=== PATIENT | female | born 1940 | race Caucasian/White ===

== ENCOUNTER → 2017-09-16 11:48 | Outpatient (CLI) | payer MEDICARE, SELFPAY ==
[2017-09-16 13:55] LABS: Hemoglobin A1c 8.6 % (4.2-6.3)
== END ==
PROVIDERS: Family Provider Family Medicine; PCP Family Medicine; Visit Provider Family Medicine
DX: E11.9 Type 2 diabetes mellitus without complications (principal)
CPT/HCPCS: 36415; 83036

== ENCOUNTER → 2017-10-25 11:01 | Outpatient (CLI) | payer MEDICARE, SELFPAY ==
--- NOTE | 2017-10-25 11:04 | CT_ITS ---
STUDY: CT CHEST WITHOUT CONTRAST REASON FOR EXAM: Female, 76 years old. COPD and wheezing. RADIATION DOSAGE (If Supplied By Facility): CTDIvol = ( 8.92 ) mGy, DLP = ( 296.50 ) mGycm TECHNIQUE: Transaxial imaging was performed without the administration of intravenous contrast material. Individualized dose optimization techniques were used for this CT. COMPARISON: None. FINDINGS: The lungs are somewhat hyperinflated. There is mild stranding in the right upper lobe and right middle lobe probably due to scarring. Minimal stranding is seen in the lingula and left lower lobe. No focal infiltrate is seen. There is minimal central bronchiectatic changes. There is no evidence of pleural effusions. Normal heart and pericardium. There are coronary calcifications. There are few small normal sized mediastinal nodes. There is no evidence of adenopathy. Normal hilar regions. Normal unenhanced pulmonary arteries. There is atherosclerotic calcification of the aortic arch with tortuosity and elongation of the aortic arch and descending thoracic aorta. There are degenerative changes in the thoracic spine. There is calcification within the thecal sac on the left side of the spinal cord about the level of T9 measuring about 7 mm. There is no demonstrated abnormality of the visualized upper abdomen. CT/Chest without Contrast IMPRESSION: Mild COPD and bronchiectatic changes. Mild stranding bilaterally probably due to scarring. No infiltrate is seen. Demineralization of the osseous structures. Calcification within the thecal sac about the level of T9. Further evaluation with MRI of the thoracic spine is recommended. Electronically Signed: Rosalio Ramos MD at 15:55 EDT Tel , Service support ,
== END ==
PROVIDERS: Family Provider Family Medicine; PCP Family Medicine; Visit Provider Internal Medicine Critical Care Medicine
DX: J44.9 Chronic obstructive pulmonary disease, unspecified (principal)
CPT/HCPCS: 71250; 87070; 87077; 87186; 87205

== ENCOUNTER → 2018-01-15 10:20 | Outpatient (CLI) | payer MEDICARE, SELFPAY ==
--- NOTE | 2018-01-15 13:32 | PFT ---
INTRODUCTION: The patient is a 77-year-old female currently under the care of Dr. Corey that presents for pulmonary function testing secondary to a diagnosis of COPD. Respiratory therapy reports good patient effort. Bronchodilators were used during testing. INTERPRETATION: Forced expiration spirometry demonstrates the presence of a moderate large airways obstructive ventilatory defect. There was no significant response to aerosolized bronchodilators. Spirograms are of good quality and do not plateau indicating slow emptying of the lungs. The respiratory flow volume loop reveals decreased expiratory flow rates at all lung volumes consistent with airways obstruction. Body plethysmography was performed and reveals an elevated TLC and RV, indicative of underlying hyperinflation and air-trapping. Diffusing capacity by single breath CO is moderately reduced at 51% of predicted. When compared to previous pulmonary function studies dated April 2017 there is been increases in both TLC and RV along with a 15% improvement in DLCO. IMPRESSION: These pulmonary function studies demonstrate the presence of an irreversible moderate large airways obstructive ventilatory defect with associated hyperinflation, air trapping and reduction in diffusing capacity.
== END ==
PROVIDERS: Family Provider Family Medicine; PCP Family Medicine; Visit Provider Internal Medicine Critical Care Medicine
DX: J44.9 Chronic obstructive pulmonary disease, unspecified (principal)
CPT/HCPCS: 94060; 94726; 94729

== ENCOUNTER → 2018-01-16 10:58 | Outpatient (CLI) | payer MEDICARE, SELFPAY ==
[2018-01-16 11:28] VITALS: PULSE 101; PULSE 103; PULSE 112; PULSE 113; PULSE 115; PULSE 119; PULSE 121; O2SAT 95; O2SAT 96; O2SAT 97
== END ==
PROVIDERS: Family Provider Family Medicine; PCP Family Medicine; Visit Provider Internal Medicine Critical Care Medicine
DX: J44.9 Chronic obstructive pulmonary disease, unspecified (principal)
CPT/HCPCS: 94618

== ENCOUNTER → 2019-03-19 | Outpatient (CLI) | payer MEDICARE, SELFPAY ==
[2018-11-02 11:26] VITALS: BMI 24.4
--- NOTE | 2019-03-19 15:46 | MRI_ITS ---
STUDY: MRI BRAIN WITHOUT CONTRAST REASON FOR EXAM: Female, 78 years old. TIA stroke carotid stenosis TECHNIQUE: Standardized multiplanar fat and water weighted pulse sequences were obtained. COMPARISON: None. FINDINGS: Brain parenchyma is intact without focal lesions, mass effect, extra parenchymal fluid collections, hydrocephalus or herniation. There is [id number]-aadqnchm periventricular white matter FLAIR hyperintensity. There is moderate brainstem T2 hyperintensity. Major vascular flow structures are intact. Craniocervical junction is unremarkable. MRI/Brain without Contrast IMPRESSION: 1. No acute findings. 2. Yncn-jm-[id number] white matter chronic ischemic change. Electronically Signed: Sunni Crane, at 17:23 EDT Tel , Service support ,
--- NOTE | 2019-03-19 15:46 | MRI_ITS ---
STUDY: MRA OF THE HEAD WITHOUT CONTRAST REASON FOR EXAM: Female, 78 years old. TIA stroke carotid stenosis TECHNIQUE: 3-D [id number] (TOF) imaging was performed with MIPs. The study was performed unenhanced. COMPARISON: None. FINDINGS: Bilateral base of skull carotids, bifurcations, anterior and middle cerebral arteries and proximal branches are patent. Posterior communicating arteries are not seen Posterior cerebral arteries and superior cerebellar arteries and proximal branches are patent. Vertebral arteries, basilar arteries are patent. MRI/MRA Head ONLY without Contrast IMPRESSION: 1. Unremarkable [place] and proximal branches. Electronically Signed: Sunni Crane, at 17:34 EDT Tel , Service support ,
--- NOTE | 2019-03-19 15:48 | MRI_ITS ---
STUDY: MRA NECK WITHOUT CONTRAST REASON FOR EXAM: Female, 78 years old. TIA stroke carotid stenosis TECHNIQUE: Source images were obtained, MIPs were performed. The study was performed unenhanced. COMPARISON: None. FINDINGS: Origins and intramediastinal portions of the great vessels are evaluated in a limited fashion due to pulsation artifact. Examination is mildly degraded by position artifact. Bilateral common carotid, internal and external carotid arteries are patent. Intraosseous cervical vertebral arteries are patent. MRI/MRA Neck without Contrast IMPRESSION: Unremarkable cervical arteries. Electronically Signed: Sunni Crane, at 17:37 EDT Tel , Service support ,
== END | disposition home or self-care (01) ==
LOC: MRI 15:38
PROVIDERS: Family Provider Family Medicine; PCP Family Medicine; Referring Provider Psychiatry & Neurology Neurology; Visit Provider Psychiatry & Neurology Neurology
DX: I65.29 Occlusion and stenosis of unspecified carotid artery (principal); Z86.73 Personal history of transient ischemic attack (TIA), and cerebral infarction without residual deficits
CPT/HCPCS: 70544; 70547; 70551

== ENCOUNTER → 2019-04-21 11:01 | Outpatient (CLI) | payer MEDICARE, SELFPAY ==
[2018-11-02 11:26] VITALS: BMI 24.4
[2019-04-21 11:15] VITALS: PULSE 100; PULSE 101; PULSE 104; PULSE 109; PULSE 119; PULSE 90; PULSE 96; O2SAT 89; O2SAT 90; O2SAT 92; O2SAT 95; O2SAT 97
[2019-04-21 13:04] LABS: Cholesterol 142 mg/dL (200); High Density Lipoprotein 77 mg/dL; Triglycerides 120 mg/dL; Very Low Density Lipoprotein 24 mg/dL (5-40)
[2019-04-21 13:13] LABS: Hemoglobin A1c 7.7 % (4.2-6.3)
--- NOTE | 2019-04-22 07:48 | PCM.PSN.6M ---
PSN 6 Minute Walk Test - 6 Minute Walk Test 6 Minute Walk Test: 6 Minute Walk Test PSN:6-Minute Walk Test Start: 04/21/19 13:43 Freq: Status: Active Protocol: RESP.6MINW Document 04/21/19 11:15 [facility] (Rec: 04/21/19 13:47 [facility] [id number]) 6 Minute Walk Test Date Performed 04/21/19 Time Performed 11:15 Height 5 ft Weight: 134 lb Weight in Pounds 134.[address]: Mario Corey Assistive device used: Cane Pre-test Oxygen Delivery Method Room Air Pulse Ox (%) 95 Pulse Rate (60-100 beats/min) 90 Dyspnea Marshall Scale (0-10) 0 Exertion Marshall Scale (6-20) 6 1st minute Oxygen Delivery Method Room Air Pulse Ox (%) 92 Pulse Rate (60-100 beats/min) 96 2nd minute Oxygen Delivery Method Room Air Pulse Ox (%) 90 Pulse Rate (60-100 beats/min) 104 H Number of Rests Taken 2 3rd minute Oxygen Delivery Method Room Air Pulse Ox (%) 89 Pulse Rate (60-100 beats/min) 100 Number of Rests Taken 1 4th minute Oxygen Delivery Method Room Air Pulse Ox (%) 90 Pulse Rate (60-100 beats/min) 101 H Number of Rests Taken 1 Reported Symptoms Increased Work of Breathing 5th minute Oxygen Delivery Method Room Air Pulse Ox (%) 89 Pulse Rate (60-100 beats/min) 109 H Number of Rests Taken 1 6th minute Oxygen Delivery Method Room Air Pulse Ox (%) 89 Pulse Rate (60-100 beats/min) 119 H Number of Rests Taken 2 Reported Symptoms Increased Work of Breathing Post-test Oxygen Delivery Method Room Air Pulse Ox (%) 97 Pulse Rate (60-100 beats/min) 96 Dyspnea Marshall Scale (0-10) 3 Exertion Marshall Scale (6-20) 12 Full Laps Walked 7 Partial Lap, Number of Tiles Walked 15 Total Distance Walked (ft) 428 - Interpretation Interpretation: The patient ambulated 428 feet over the course of 6 minutes beginning on room air with the use of a cane. Pretesting oxygen saturation was noted to be 95% on room air. With ambulation, the linden oxygen saturation was 89%. The patient did develop physiologic tachycardia with exertion. There was evidence of impaired walk distance and significant exertional oxygen desaturation, consistent with a pulmonary limitation to exercise tolerance. - Recommendations Recommendations: There is no indication for the use of supplemental oxygen at this time. However, close interval follow-up is recommended, given the degree of oxygen desaturation noted during this study.
== END ==
PROVIDERS: Psychiatry & Neurology Neurology; Family Provider Family Medicine; PCP Family Medicine; Referring Provider Internal Medicine Critical Care Medicine; Visit Provider Internal Medicine Critical Care Medicine
DX: Z86.73 Personal history of transient ischemic attack (TIA), and cerebral infarction without residual deficits (principal); J44.9 Chronic obstructive pulmonary disease, unspecified
CPT/HCPCS: 36415; 80061; 83036; 94618

== ENCOUNTER → 2019-05-17 14:01 | Outpatient (CLI) | payer MEDICARE, SELFPAY ==
[2019-04-28 10:13] VITALS: BMI 25.7
== END ==
PROVIDERS: Family Provider Family Medicine; PCP Family Medicine; Referring Provider Nurse Practitioner Acute Care; Visit Provider Nurse Practitioner Acute Care
DX: J47.9 Bronchiectasis, uncomplicated (principal)
CPT/HCPCS: 87070; 87205

== ENCOUNTER → 2019-10-06 09:26 | Outpatient (CLI) | payer MEDICARE, MEDICAID, SELFPAY ==
[2019-08-12 06:10] VITALS: BMI 25.2
--- NOTE | 2019-10-06 09:31 | ART_ITS ---
Reason For Study: PAIN Procedure A bilateral lower extremity continuous wave Doppler with analog waveform analysis and ankle brachial indexes. Left Segmental Pressures Left brachial= 137mmHg. Left posterior tibial artery = 70mmHg. Left dorsalis pedis artery = 65mmHg. The left posterior tibial artery waveforms are monophasic. The left dorsalis pedis waveforms are monophasic. Right Segmental Pressures Right brachial= 126mmHg. Right posterior tibial artery = 84mmHg. Right dorsalis pedis artery = 75mmHg. The right dorsalis pedis waveforms are monophasic. The right posterior tibial artery waveforms are monophasic. Indices The right ankle brachial index by the dorsalis pedis is .55. The right ankle brachial index by the posterior tibial artery is .61. The left ankle brachial index by the dorsalis pedis is .47. The left ankle brachial index by the posterior tibial artery is .51. Interpretation Summary 1. bilateral moderate occlussive disease and biphasic flow and FRANCIS 0.61 and 0.51. Ordering Physician: Selvin Choe Referring Physician: Selvin Choe Performed By: MARLENY PRICE [facility]
--- NOTE | 2019-10-06 09:31 | AAVD_ITS ---
Reason For Study: AORTOILIAC DISEASE Aorta Measurements Aorta Doppler Measurements Proximal aorta measures1.53 X 1.59cm. in cross- Peak systolic flow velocities within the proximal sectional axis. aorta measure 80.2 cm/sec. Proximal aorta measures1.52cm. in longitudinal Peak systolic flow velocities within the mid aorta axis. measure 41.5 cm/sec. Mid aorta measures1.8 X 1.62cm. in cross-sectionalPeak systolic flow velocities within the distal axis. aorta measure 159 cm/sec. Mid aorta measures1.7cm. in longitudinal axis. Distal aorta measures1.9 X 1.8cm. in cross- sectional axis. Distal aorta measures1.8cm. in longitudinal axis. Left Iliac Artery Left iliac artery measures .55 X .53 cm. in the cross-sectional axis. Left iliac artery measures .5 cm. in the longitudinal axis. Peak systolic velocity in the left iliac artery measures 116.8 cm/sec. Right Iliac Artery Right iliac artery measures .64 X .68 cm. in the cross-sectional axis. Right iliac artery measures .54 cm. in the longitudinal axis. Peak systolic velocity in the right iliac artery measures 57.5 cm/sec. Procedure Aorta IVC Iliac vasculature or bypass grafts 16968. Technically difficult. Exam performed in department. Interpretation Summary 1. No aortoiliac stenosis or aneurysm. Ordering Physician: Selvin Choe Referring Physician: JEAN EVERETT Performed By: Elvi Peng, AALIYAH, RVT
== END ==
PROVIDERS: PCP Nurse Practitioner Primary Care; Referring Provider Surgery Vascular Surgery; Visit Provider Surgery Vascular Surgery
DX: I70.213 Atherosclerosis of native arteries of extremities with intermittent claudication, bilateral legs (principal); I74.09 Other arterial embolism and thrombosis of abdominal aorta; M79.604 Pain in right leg; M79.605 Pain in left leg
CPT/HCPCS: 93922; 93978

== ENCOUNTER → 2020-03-29 10:08 | Outpatient (CLI) | payer MEDICARE, MEDICAID, SELFPAY ==
[2019-11-15 07:52] VITALS: BMI 25.2
--- NOTE | 2020-03-29 13:38 | PFTCOMP_ITS ---
COMPLETE PULMONARY FUNCTION TEST INTERPRETATION Brief HPI: Patient is a 79 year old female, currently under the care of myself, who presents to [facility] for complete pulmonary function tests secondary to diagnosis of COPD. Respiratory therapist reports good effort and reproducible results. Interpretation: Forced expiration spirometry shows a moderate large airways obstructive ventilatory defect with an FEV1 of 68% predicted. There is a significant bronchodilator response in FVC by strict ATS criteria. Spirograms are of good quality and plateau slowly, indicating slowly emptying areas of the lungs. The respiratory flow volume loop shows decreased expiratory flow rates at all lung volumes consistent with airway obstruction. Lung volumes by body plethysmography show an elevated total lung capacity at 4.9 L, 124% predicted. FRC and RV are elevated out of proportion. Lung volume measurements are consistent with hyperinflation and air-trapping. Diffusion capacity by carbon monoxide is decreased at 53% predicted. The airway resistance is elevated. Compared to previous pulmonary function tests from 01/15/2018, there is been a significant decrease in FVC by 16%, but this did resolve with bronchodilators. Impression: Partially reversible moderate large airways obstructive ventilatory defect with a symmetric reduction diffusing capacity, resulting in air trapping with hyperinflation.
== END ==
PROVIDERS: PCP Nurse Practitioner Primary Care; Referring Provider Internal Medicine Critical Care Medicine; Visit Provider Internal Medicine Critical Care Medicine
DX: J44.9 Chronic obstructive pulmonary disease, unspecified (principal)
CPT/HCPCS: 94060; 94726; 94729

== ENCOUNTER → 2020-03-30 11:09 | Outpatient (CLI) | payer MEDICARE, MEDICAID, SELFPAY ==
[2019-11-15 07:52] VITALS: BMI 25.2
[2020-03-30 11:40] VITALS: PULSE 100; PULSE 105; PULSE 111; PULSE 112; PULSE 113; PULSE 114; PULSE 99; O2SAT 94; O2SAT 95; O2SAT 96; O2SAT 97
--- NOTE | 2020-03-30 15:18 | WT_ITS ---
PSN 6 Minute Walk Test - 6 Minute Walk Test 6 Minute Walk Test: 6 Minute Walk Test PSN:6-Minute Walk Test Start: 03/30/20 11:40 Freq: Status: Active Protocol: RESP.6MINW Document 03/30/20 11:40 [facility] (Rec: 03/30/20 11:44 [facility] [id number]) 6 Minute Walk Test Date Performed 03/30/20 Time Performed 11:15 Height 4 ft 11 in Weight: 57.606 kg Weight in Pounds 127.[address]: Mario Corey Assistive device used: Walker Pre-test Oxygen Delivery Method Room Air Pulse Ox (%) 96 Pulse Rate (60-100 beats/min) 100 Dyspnea Marshall Scale (0-10) 1 1st minute Oxygen Delivery Method Room Air Pulse Ox (%) 96 Pulse Rate (60-100 beats/min) 105 H Dyspnea Marshall Scale (0-10) 1 Number of Rests Taken 1 2nd minute Oxygen Delivery Method Room Air Pulse Ox (%) 95 Pulse Rate (60-100 beats/min) 112 H Dyspnea Marshall Scale (0-10) 1 Number of Rests Taken 0 3rd minute Oxygen Delivery Method Room Air Pulse Ox (%) 94 Pulse Rate (60-100 beats/min) 113 H Dyspnea Marshall Scale (0-10) 2 Number of Rests Taken 0 4th minute Oxygen Delivery Method Room Air Pulse Ox (%) 96 Pulse Rate (60-100 beats/min) 114 H Dyspnea Marshall Scale (0-10) 2 Number of Rests Taken 1 5th minute Oxygen Delivery Method Room Air Pulse Ox (%) 95 Pulse Rate (60-100 beats/min) 111 H Dyspnea Marshall Scale (0-10) 2 Number of Rests Taken 1 6th minute Oxygen Delivery Method Room Air Pulse Ox (%) 96 Pulse Rate (60-100 beats/min) 105 H Dyspnea Marshall Scale (0-10) 2 Post-test Oxygen Delivery Method Room Air Pulse Ox (%) 97 Pulse Rate (60-100 beats/min) 99 Dyspnea Marshall Scale (0-10) 1 Full Laps Walked 5 Partial Lap, Number of Tiles Walked 8 Total Distance Walked (ft) 303 - Interpretation Interpretation: The patient was able to travel 303 feet over the course of 6 minutes on room air with the assistance of 3 breaks and a pushed wheelchair. The patient did not experience any significant desaturation, but did have a peak heart rate of 114 bpm. Patient stated breaks were secondary to leg pain and fatigue from peripheral artery disease. These findings are consistent with a musculoskeletal limitation exercise tolerance. - Recommendations Recommendations: No supplemental oxygen is indicated at this time.
== END ==
PROVIDERS: PCP Nurse Practitioner Primary Care; Referring Provider Internal Medicine Critical Care Medicine; Visit Provider Internal Medicine Critical Care Medicine
DX: J44.9 Chronic obstructive pulmonary disease, unspecified (principal)
CPT/HCPCS: 94618

== ENCOUNTER → 2020-11-23 12:52 | Outpatient (CLI) | payer MEDICARE, MEDICAID, SELFPAY ==
[2020-11-08 09:54] VITALS: BMI 26.2
--- NOTE | 2020-11-23 12:54 | CT_ITS ---
STUDY: LOW DOSE CT LUNG CANCER SCREENING REASON FOR EXAM: Female, 80 years old. Smoker and gt; 30 pack years quit 2016. COPD. RADIATION DOSAGE (If Supplied By Facility): CTDIvol = ( 1.59 ) mGy, DLP = ( 54.80 ) mGycm TECHNIQUE: No contrast was administered. Low dose technique was utilized (average mAS-38 and kVp 120). 1.25 mm axial source images with a slice interval of 1.25-mm were reconstructed in lung windows. 2.5 mm axial source images with a slice interval of 2.5-mm were reconstructed in lung windows. 5.0 mm axial source images with a slice interval of 5.0-mm were reconstructed in soft tissue windows. Nodule measured using lung windows on PACS and/or independent workstation with automated measurement of minimum and maximum diameter. Nodule measurement reported as average diameter rounded to the nearest whole number. Growth is defined as an increase ins size of greater than 1.5 mm. COMPARISON: Comparison is made with prior examination dated 10/25/2017. NODULES: No suspicious nodules are seen. Emphysema: Stable linear scarring in the posterior aspect of the right upper lobe. Stable mild degree of increased linear markings in the medial aspect of the right middle lobe this is suggestive of scarring. There is also evidence of a focal scarring in the medial aspect of the right middle lobe inferiorly adjacent to the right cardiac border. Hyperinflation. Mild degree of emphysematous changes more prominent in the upper lobes. Endobronchial lesion: None Aorta: Atherosclerotic plaque formation of the aortic arch and descending thoracic aorta. Coronary arteries: Coronary calcifications. Heart: Unremarkable Pulmonary artery: Unremarkable Mediastinal nodes: Small mediastinal lymph nodes. Other chest and abdominal findings: CT/Low Dose CT Lung Screening IMPRESSION: Lung-RADS category 2 - Continue annual screening with LDCT in 12 months. IMPORTANT NOTES FOR USE: ACR Lung-RADS Version 1.1 Assessment Categories Release Date: 2018 Category: Coded 0-4 bases on nodule(s) with highest degree of suspicion. Negative screen is defined as categories 1 and 2; a positive screen is defined as categories 3 and 4. Category 3 and 4A nodules that are unchanged on interval CT should be coded as category 2, and individuals returned to screening in 12 months. Category 4X: Category 3 or 4 nodules with additional imaging findings that increase the suspicion of lung cancer, such as spiculation, GGN that doubles in size in 1 year, enlarged lymph notes, etc. Category Modifiers: S (significant finding unrelated to lung cancer) Electronically Signed: Jamel Tsai MD at 13:40 EDT , Service support ,
== END ==
PROVIDERS: PCP Nurse Practitioner Primary Care; Referring Provider Nurse Practitioner Acute Care; Visit Provider Nurse Practitioner Acute Care
DX: Z12.2 Encounter for screening for malignant neoplasm of respiratory organs (principal); Z87.891 Personal history of nicotine dependence; J44.9 Chronic obstructive pulmonary disease, unspecified
CPT/HCPCS: 71271

== ENCOUNTER → 2021-11-27 | Outpatient (CLI) | payer MEDICARE, MEDICAID, SELFPAY ==
--- NOTE | 2021-11-27 13:00 | CT_ITS ---
STUDY: LOW DOSE CT LUNG CANCER SCREENING REASON FOR EXAM: Female, 81 years old. Greater than 30 pack years, quit 2015 RADIATION DOSAGE (If Supplied By Facility): CTDIvol = ( 2.01 ) mGy, DLP = ( 67.96 ) mGycm TECHNIQUE: No contrast was administered. Low dose technique was utilized (average mAS-38 and kVp 120). 1.25 mm axial source images with a slice interval of 1.25-mm were reconstructed in lung windows. 2.5 mm axial source images with a slice interval of 2.5-mm were reconstructed in lung windows. 5.0 mm axial source images with a slice interval of 5.0-mm were reconstructed in soft tissue windows. COMPARISON: Comparison is made with prior examination dated 11/23/2020. NODULES: No suspicious nodules are seen. Emphysema: Hyperinflation. Stable focal linear scar is seen in the posterior aspect of the right upper lobe. Stable mild linear scarring in the medial aspect of the right middle lobe. Stable mild degree of emphysematous changes more prominent in the upper lobes. Stable linear scarring left lung base. Endobronchial lesion: None Aorta: Atherosclerotic plaque formation. CORONARY ARTERIES: Coronary artery calcification Heart: Unremarkable. Pulmonary artery: Unremarkable Mediastinal nodes: Small benign-appearing mediastinal lymph nodes. Other chest and abdominal findings: CT/Low Dose CT Lung Screening IMPRESSION: Lung-RADS category 2 - Continue annual screening with LDCT in 12 months. IMPORTANT NOTES FOR USE: ACR Lung-RADS Version 1.1 Assessment Categories Release Date: 2018 Category: Coded 0-4 bases on nodule(s) with highest degree of suspicion. Negative screen is defined as categories 1 and 2; a positive screen is defined as categories 3 and 4. Category 3 and 4A nodules that are unchanged on interval CT should be coded as category 2, and individuals returned to screening in 12 months. Category 4X: Category 3 or 4 nodules with additional imaging findings that increase the suspicion of lung cancer, such as spiculation, GGN that doubles in size in 1 year, enlarged lymph notes, etc. Category Modifiers: S (significant finding unrelated to lung cancer) Electronically Signed: Jamel Tsai MD at 13:31 EDT ,
== END | disposition home or self-care (01) ==
LOC: CT 12:58
PROVIDERS: PCP Nurse Practitioner Primary Care; Referring Provider Nurse Practitioner Acute Care; Visit Provider Nurse Practitioner Acute Care
DX: F17.210 Nicotine dependence, cigarettes, uncomplicated (principal)
CPT/HCPCS: 71271

== ENCOUNTER → 2022-11-30 | Outpatient (CLI) | payer MEDICARE, MEDICAID, SELFPAY ==
--- NOTE | 2022-11-30 07:44 | CT_ITS ---
STUDY: LOW DOSE CT LUNG CANCER SCREENING REASON FOR EXAM: Female, 82 years old. Former smoker. 75 pack-year history. RADIATION DOSAGE (If Supplied By Facility): CTDIvol = ( 2.01 ) mGy, DLP = ( 63.18 ) mGycm TECHNIQUE: No contrast was administered. Low dose technique was utilized (average mAS-38 and kVp 120). 1.25 mm axial source images with a slice interval of 1.25-mm were reconstructed in lung windows. 2.5 mm axial source images with a slice interval of 2.5-mm were reconstructed in lung windows. 5.0 mm axial source images with a slice interval of 5.0-mm were reconstructed in soft tissue windows. COMPARISON: November 27, 2021 NODULES: Total lung nodules (excluding granulomas): 0 Emphysema: Diffuse emphysematous changes. Stable linear scarring posteriorly in the right upper lobe. Endobronchial lesion: Aorta: Stable atherosclerotic changes of the thoracic aorta without aneurysm. CORONARY ARTERIES: Coronary artery calcification are present Heart: Normal Pulmonary artery: Normal Mediastinal nodes: None Other chest and abdominal findings: Degenerative changes of the thoracic spine. CT/Low Dose CT Lung Screening IMPRESSION: Lung-RADS category 1 - Continue annual screening with LDCT in 12 months. IMPORTANT NOTES FOR USE: ACR Lung-RADS Version 1.1 Assessment Categories Release Date: 2018 Category: Coded 0-4 bases on nodule(s) with highest degree of suspicion. Negative screen is defined as categories 1 and 2; a positive screen is defined as categories 3 and 4. Category 3 and 4A nodules that are unchanged on interval CT should be coded as category 2, and individuals returned to screening in 12 months. Category 4X: Category 3 or 4 nodules with additional imaging findings that increase the suspicion of lung cancer, such as spiculation, GGN that doubles in size in 1 year, enlarged lymph notes, etc. Category Modifiers: S (significant finding unrelated to lung cancer) Electronically Signed: Prosper Leyva DO at 21:38 EDT Reading Location ID and State: [facility] / [place] Tel [phone], Service support ,
== END | disposition home or self-care (01) ==
LOC: CT 07:42
PROVIDERS: PCP Nurse Practitioner Primary Care; Referring Provider Nurse Practitioner Acute Care; Visit Provider Nurse Practitioner Acute Care
DX: F17.210 Nicotine dependence, cigarettes, uncomplicated (principal)
CPT/HCPCS: 71271

== ENCOUNTER 2023-05-05 09:16 | Day surgery (SDC) | payer MEDICARE, MEDICAID, SELFPAY ==
[2023-05-05] VITALS (8 sets, daily range): BP systolic 120–189; BP diastolic 52–87; PULSE 84–94; RESP 16–18; TEMP 36.3–36.5; O2SAT 97–100; BMI 22.2
--- NOTE | 2023-05-05 09:26 | PCM.HP.BLA ---
History and Physical Date of Admission: 05/05/23 82 F who presents to the office today for PCP OV 09.19.22 noting anemia history and DMII, CKD III, HTN, TIA, GIB history. ? Biochemical hgb 9.9, CMP, LFT ? Stool occultx3 positive. *BGI established 01.16.23 with weakness and SOB which is chronic r/t COPD but has worsened lately. Occasionally notes BRB on toilet paper, denies black stools. She has vascular issues for which she sees Dr. Choe vascular specialist. BM occur daily without difficulty. ROS Const Constitutional: No anorexia, fatigue, fever(s), weight change or sleep problems Eyes Eyes: No change in vision ENT ENT: No abnormal hearing, difficulty swallowing, mouth lesions, tongue swelling or throat swelling Resp Respiratory: No cough or shortness of breath Cardio Cardiology: No chest pain at rest, chest pain with exertion, shortness of breath or dyspnea on exertion Gastro GI: No difficulty swallowing Genitourinary-Female: No difficulty urinating or burning urination Musc Musculoskeletal: No joint pain, joint swelling, muscle weakness or decreased muscle mass Skin Skin: No hair loss in leg, yellowing of the eye, itchy eyes, rash, skin ulcer or skin swelling Neuro Neurology: No abnormal hearing, abnormal movements, confusion, unsteady gait/balance or memory loss Psych Psychiatric: No anxiety, No confusion and No memory loss Endo Endocrine: No fatigue or weight change Aller/Imm Allergy/Immunologic: No itchy eyes, throat swelling or tongue swelling Joaquim/Lymp Hematologic/Lymphatic: No easy bleeding, easy bruising or enlarged lymph nodes Exam Const General: cooperative and comfortable Nutritional Appearance: average body habitus and well nourished [facility] Head: normal to inspection Ears: hearing grossly normal bilaterally Nose: external nose normal Face and sinus: normal facial exam Mouth: oral mucosae normal Throat: posterior oropharynx normal Eyes General: appearance normal, both eyes and all related structures Neck Neck: normal visual inspection Chest Chest palpation & inspection: normal inspection of the chest and normal palpation of entire chest wall Resp Effort & Inspection: normal respiratory effort Auscultation: Bilateral: Clear to Auscultation Cardio Palpation: normal PMI Rate: regular rate Rhythm: regular rhythm GI Inspection: normal to inspection Auscultation: normal bowel sounds Percussion: normal to percussion Palpation: no hepatosplenomegaly Skin General: no rashes or lesions noted Neuro General: patient alert Extrem General: normal to inspection Psych Affect: normal affect Quality Reporting Tobacco Screening ([facility] 138) Smoking Status: Former smoker Assessment and Plan Assessment and Plan (1) Anemia: Status: Chronic Plan: 82-year-old with a history of iron deficiency anemia, COPD, PAD who presents for evaluation of lower GI bleeding. She has never had a colonoscopy. Rectal exam there is no blood in the rectal vault. Rectal tone is decreased but not prolapsed. She takes Plavix on a daily basis. Differential diagnosis does include diverticular bleed, neoplasia, angiodysplasia, hemorrhoidal bleed, proctitis. She will undergo colonoscopy. She was explained alternatives, risk, benefits including outstanding bleeding, infection, sepsis, perforation, need for emergent and . She will have an ASA of 3. I have examined the patient and the H&P has been reviewed. There are no clinical changes since date of exam.
[2023-05-05] MEDS: Lactated Ringers 1,000 ML 15 ML IV (09:58)
[2023-05-05] MEDS: Ipratropium/Albuterol Sulfate 3 ML AMPUL.NEB INHALATION (10:23)
--- NOTE | 2023-05-05 10:30 | COLBX_PTH ---
PATIENT: ANSON CAPPS LOC: EN U#:[id number] AGE/SX: 82/F ROOM: RE05/05/[address]: Dr. Ryan Hou DO : 1940 BED: DIS: 05/05/2023 SPEC #: [id number] RECD: 05/05/23 14:27 STATUS: DARIAN REKarena #: [id number] MELISSA: 05/05/23 10:[address]: Ryan Hou DEPT: SURGICAL PATHOLOGY RECD BY: Stephanie Pickard ENTERED: 05/06/23 09:19 SP TYPE: COLON BX OTHR DR: Jeff Suresh, HAND HARDENER-C Tissues: Rectum, NOS Procedures: Surgery Specimen Level IV HEADER OPERATION: Colonoscopy (MAC) with cautery, polypectomy PRE-OP DIAGNOSIS: Anemia TISSUE SUBMITTED: Rectal polyp MICROSCOPIC DIAGNOSIS Rectal polyp, biopsy: Tubular adenoma. AM:pham 05/07/2023 MICROSCOPIC DESCRIPTION Slides are reviewed. GROSS DESCRIPTION Received in fixative is one container labeled with the patient's name and designated rectal polyp. The specimen consists of one irregular fragment of light gaming soft tissue that measures 0.3 x 0.3 x 0.1 cm. The specimen is totally submitted in one cassette. / AM:pham 05/06/2023 TC:5 CPT: 12852
[2023-05-05 11:02] LABS: Bedside Glucose 167 mg/dL (74-106)
--- NOTE | 2023-05-05 11:19 | OP.COLON_ITS ---
Patient Name: Manda Connolly Procedure Date: 05/05/2023 10:16 AM Date of : 1940 Age: 82 Procedure: Colonoscopy Indications: Screening for colorectal malignant neoplasm Providers: Ryan Hou DO Medicines: Monitored Anesthesia Care Patient Profile: This is an 82 year old female. Refer to note in patient chart for documentation of history and physical. Last Colonoscopy: none. The patient's first colonoscopy is today. Complications: No immediate complications. Procedure: Pre-Anesthesia Assessment: - Prior to the procedure, a History and Physical was performed, and patient medications and allergies were reviewed. The risks and benefits of the procedure and the sedation options and risks were discussed with the patient. All questions were answered and informed consent was obtained. Patient identification and proposed procedure were verified by the physician in the pre-procedure area. Mental Status Examination: alert and oriented. Prophylactic Antibiotics: The patient does not require prophylactic antibiotics. Prior Anticoagulants: The patient has taken no anticoagulant or antiplatelet agents. After reviewing the risks and benefits, the patient was deemed in satisfactory condition to undergo the procedure. The anesthesia plan was to use monitored anesthesia care (MAC). Immediately prior to administration of medications, the patient was re-assessed for adequacy to receive sedatives. The heart rate, respiratory rate, oxygen saturations, blood pressure, adequacy of pulmonary ventilation, and response to care were monitored throughout the procedure. The physical status of the patient was re-assessed after the procedure. After I obtained informed consent, the scope was passed under direct vision. Throughout the procedure, the patient's blood pressure, pulse, and oxygen saturations were monitored continuously. The was introduced through the anus and advanced to the cecum, identified by appendiceal orifice and ileocecal valve. The colonoscopy was performed without difficulty. The patient tolerated the procedure well. The quality of the bowel preparation was fair. Scope In: 10:34:13 AM Scope Withdrawal Time 0 hours 12 minutes 31 seconds Scope Out: 11:13:16 AM Total Procedure Duration Time 0 hours 39 minutes 3 seconds Findings: The perianal and digital rectal examinations were normal. An 8 mm polyp was found in the rectum. The polyp was sessile. The polyp was removed with a hot snare. Resection and retrieval were complete. Verification of patient identification for the specimen was done. Estimated blood loss was minimal. Multiple small and large-mouthed diverticula were found in the recto-sigmoid colon, sigmoid colon, descending colon and splenic flexure. There was significant spasm in the sigmoid colon. Three medium-sized localized angiodysplastic lesions with bleeding were found in the cecum. Coagulation for hemostasis using heater probe was successful. Estimated blood loss was minimal. Impression: - Preparation of the colon was fair. - One 8 mm polyp in the rectum, removed with a hot snare. Resected and retrieved. - Diverticulosis in the recto-sigmoid colon, in the sigmoid colon, in the descending colon and at the splenic flexure. - Significant colonic spasm. - Three bleeding colonic angiodysplastic lesions. Treated with a heater probe. Recommendation: - Discharge patient to home. - Resume previous diet. - Continue present medications. - Await pathology results. - No repeat colonoscopy due to age. Procedure Code(s): --- Professional --- 16917, 59, Colonoscopy, flexible; with control of bleeding, any method 24405, Colonoscopy, flexible; with removal of tumor(s), polyp(s), or other lesion(s) by snare technique CPT copyright 2021 [employer]. All rights reserved. The codes documented in this report are preliminary and upon scientist electronics review may be revised to meet current compliance requirements. Ryan Hou DO 05/05/2023 11:19:41 AM This report has been signed electronically. Number of Addenda: 0 Note Initiated On: 05/05/2023 10:16 AM
--- NOTE | 2023-05-05 11:20 | OP.CCLET_ITS ---
05/05/2023 Ru Obrien Re : Colonoscopy procedure for Manda Connolly Dear Kerwin This procedure was performed on Friday, May 05, 2023. My impressions and recommendations are as follows: Impressions : - Preparation of the colon was fair. - One 8 mm polyp in the rectum, removed with a hot snare. Resected and retrieved. - Diverticulosis in the recto-sigmoid colon, in the sigmoid colon, in the descending colon and at the splenic flexure. - Significant colonic spasm. - Three bleeding colonic angiodysplastic lesions. Treated with a heater probe. Recommendations : - Discharge patient to home. - Resume previous diet. - Continue present medications. - Await pathology results. - No repeat colonoscopy due to age. My findings are described in the full procedure note, which is enclosed. If I can be of further assistance, please feel free to contact me at . Sincerely, Ryan Hou, 05/05/2023 11:19:41 AM This report has been signed electronically.
== END 2023-05-05 13:17 | disposition home or self-care (01) ==
LOC: EN 09:19 → AC 09:21
PROVIDERS: PCP Nurse Practitioner Primary Care; Referring Provider Nurse Practitioner Primary Care; Visit Provider Internal Medicine Gastroenterology
PROC: 0DJD8ZZ Inspection of Lower Intestinal Tract, Via Natural or Artificial Opening Endoscopic (ICD-10-PCS; CPT 45378; principal; 2023-05-05 10:25)
DX: Z12.11 Encounter for screening for malignant neoplasm of colon (principal); J44.9 Chronic obstructive pulmonary disease, unspecified; E11.22 Type 2 diabetes mellitus with diabetic chronic kidney disease; N18.30 Chronic kidney disease, stage 3 unspecified; K57.30 Diverticulosis of large intestine without perforation or abscess without bleeding; Z87.891 Personal history of nicotine dependence; Z86.73 Personal history of transient ischemic attack (TIA), and cerebral infarction without residual deficits; D50.9 Iron deficiency anemia, unspecified; Z79.02 Long term (current) use of antithrombotics/antiplatelets; K55.21 Angiodysplasia of colon with hemorrhage; D12.8 Benign neoplasm of rectum; K58.9 Irritable bowel syndrome, unspecified; Z79.84 Long term (current) use of oral hypoglycemic drugs; Z79.899 Other long term (current) drug therapy; I12.9 Hypertensive chronic kidney disease with stage 1 through stage 4 chronic kidney disease, or unspecified chronic kidney disease; E78.5 Hyperlipidemia, unspecified
CPT/HCPCS: 45385; 45382; 82962; 88305; 94640; J7120; J2405

== ENCOUNTER → 2023-06-13 | Outpatient (CLI) | payer MEDICARE, MEDICAID, SELFPAY ==
--- NOTE | 2023-06-13 16:54 | CT_ITS ---
STUDY: CT RIGHT SHOULDER REASON FOR EXAM: Female, 82 years old. surgical planning -- for blueprint planning reverse shoulder RADIATION DOSAGE (If Supplied By Facility): CTDIvol = ( 22.11 ) mGy, DLP = ( 535.70 ) mGycm TECHNIQUE: The patient was scanned in a multi detector CT scanner. High resolution transaxial imaging was performed without the administration of intravenous contrast material. Sagittal and coronal images were reconstructed. Individualized dose optimization techniques were used for this CT. COMPARISON: None. FINDINGS: There is moderate osteoarthritis, with moderate to severe articular joint space narrowing and moderate osteoarthritic spurring. Subchondral sclerosis and marginal spur formation of the glenoid rim but normal appearance of the visualized scapula. Normal humeral head, neck and tuberosities. Normal coracoid process. Normal visualized lateral clavicle. Normal acromioclavicular articulation. There is a Type III morphology (anterior hook), with a neutral orientation. Moderate joint effusion. Centrilobular emphysema of the right lung partially visualized. There is bronchial wall thickening of multiple lobes. CT/Extremity Upper without Contra IMPRESSION: Glenohumeral joint arthrosis, as above. Electronically Signed: Adrian Burton MD (Brooks) at 19:44 EST ,
== END | disposition home or self-care (01) ==
LOC: CT 16:52
PROVIDERS: PCP Nurse Practitioner Primary Care; Referring Provider Orthopaedic Surgery Sports Medicine; Visit Provider Orthopaedic Surgery Sports Medicine
DX: M25.511 Pain in right shoulder (principal)
CPT/HCPCS: 73200

== ENCOUNTER 2023-10-29 05:35 | Day surgery (SDC) | payer MEDICARE, MEDICAID, SELFPAY ==
--- NOTE | 2023-09-22 09:11 | EKG12_ITS ---
Test Reason : PRE OP Blood Pressure : / mmHG Vent. Rate : 076 BPM Atrial Rate : 076 BPM P-R Int : 228 ms QRS Dur : 070 ms QT Int : 374 ms P-R-T Axes : 078 055 081 degrees QTc Int : 420 ms Sinus rhythm with sinus arrhythmia with 1st degree A-V block Low voltage QRS Septal infarct , age undetermined Abnormal ECG Confirmed by TYLER ECHEVERRIA, SAI ([id number]), scientific publications editor KHURRAM MIKE ([id number]) on 09/22/2023 1:01:17 PM Referred By: Darrel Love Confirmed By:TOD SCOTT MD
[2023-09-22 10:06] LABS: Absolute Neutrophil Count 4.3 X10^3/uL (2.0-7.7); Basophil# 0.08 X10^3/uL; Eosinophil# 0.22 X10^3/uL; Eosinophils% 2.8 % (0-5); Hematocrit 37.7 % (37-47); Hemoglobin 11.6 g/dL (12.0-15.0); Lymphocyte % 32.5 % (19-41); Mean Corp Hgb Conc 30.8 g/dL (32-36); Mean Corpuscular Hgb 27.8 pg (27.0-32.0); Mean Corpuscular Volume 90.4 fL (81-99); Mean Platelet Vol. 9.1 fl (6.2-12.0); Monocyte# 0.73 X10^3/uL; Monocyte% 9.1 % (0-10); NRBC Flagged by Analyzer 0 % (0-5); Neutrophil # 4.34 X10^3/uL (2.7-7.7); Neutrophil % 54.2 % (47-70); Platelet Count 380 K/mm3 (150-450); RBC Distribution Width CV 15.2 % (11.6-14.6); RBC Distribution Width SD 50.4 fl (35.1-43.9); Red Blood Count 4.17 M/mm3 (4.2-5.4)
[2023-09-22 10:10] LABS: Prothrombin Time (Protime)PT. 13.2 SECONDS (11.7-14.9)
[2023-09-22 10:11] LABS: Partial Thromboplast Time 27.6 Seconds (24.1-36.2)
[2023-09-22 10:36] LABS: Anion Gap 6 (5-15); BUN 76 mg/dL (7-18); BUN/Creat Ratio 59.4 RATIO (10-20); Calcium,Total 8.8 mg/dL (8.5-10.1); Chloride 108 mmol/L (98-107); Creatinine, Serum 1.28 mg/dL (0.55-1.02); EST Glomerular Filtration Rate 43 mL/min (>60); Est Glom Filt Rate - Afr Amer 52 mL/min (>60); Glucose 77 mg/dL (74-106); Potassium 4.7 mmol/L (3.5-5.1); Sodium Level 137 mmol/L (136-145)
[2023-09-22 10:58] LABS: Hemoglobin A1c 6.5 % (3.8-5.6)
[2023-09-22 11:12] LABS: Magnesium 2.5 mg/dL (1.6-2.6)
[2023-09-23 05:07] LABS: Fructosamine 246 umol/L (0-285)
[2023-10-29] VITALS (9 sets, daily range): BP systolic 75–145; BP diastolic 55–99; PULSE 81–106; RESP 12–18; TEMP 36.3–36.9; O2SAT 91–99; BMI 25.0
[2023-10-29] MEDS: Magnesium 1 GM over 15 mins IV (06:46)
[2023-10-29] MEDS: Lactated Ringers 1,000 ML 15 ML IV (06:46)
[2023-10-29] MEDS: Acetaminophen 500 MG Tablet 1000 MG PO (06:48)
[2023-10-29] MEDS: Scopolamine 1mg/72hr Patch 1 PATCH TD (06:49)
--- NOTE | 2023-10-29 07:11 | HP.PCM_ITS ---
HPI - General HPI Narrative ANSON CAPPS, is a 82 F who presents for right reverse total shoulder arthroplasty. No changes to h and p. shoulder marked. rab, post op instructions and narcotic counselling discussed. no further questions, ok to proceed. MR#: [id number] Acct: [id number] Name: ANSON CAPPS Rep #: [id number] : 1940 Provider: Dr. Darrel Love MD Age/Sex: 82/F [place] [facility] [place] Status: Signed Intake Vital Signs 06/25/2309:51 Height 5 ft Intake Visit Reasons: right shoulder Is patient in pain?: Yes Allergies acetaminophen [From Percocet] Allergy (Intermediate, Verified 09/22/23 10:15) Itchingferrous sulfate Allergy (Intermediate, Verified 09/22/23 10:15) Otheroxycodone [From Percocet] Allergy (Intermediate, Verified 09/22/23 10:15) Itchingiron Adverse Reaction (Severe, Verified 09/22/23 10:15) Low blood pressuregabapentin Adverse Reaction (Intermediate, Verified 09/22/23 10:15) Pedal edemapregabalin [From Lyrica] Adverse Reaction (Intermediate, Verified 09/22/23 10:15) Pedal edemacodeine Adverse Reaction (Verified 09/22/23 10:15) NauseaTetracyclines Adverse Reaction (Verified 09/22/23 10:15) Nausea Medications albuterol sulfate 2.5 mg/3 mL (0.083 %) solution for nebulization 2.5 mg inhalation Q4H PRN PRN COPD 03/25/16 [History Confirmed 09/22/23] clonidine HCl 0.3 mg tablet 0.3 mg PO DAILY 03/25/16 [History Confirmed 09/22/23] duloxetine 60 mg capsule,delayed release 30 mg PO DAILY 03/25/16 [History Confirmed 09/22/23] fluticasone 250 mcg-salmeterol 50 mcg/dose blistr powdr for inhalation 1 puff inhalation BID 03/25/16 [History Confirmed 09/22/23] dulaglutide 0.75 mg/0.5 mL subcutaneous pen injector 1.5 mg subcut SALCIDO #2 mL 04/28/19 [History Confirmed 09/22/23] ascorbic acid (vitamin C) 500 mg capsule 500 mg PO DAILY 11/28/22 [History Confirmed 09/22/23] atorvastatin 40 mg tablet 40 mg PO QHS 11/28/22 [History Confirmed 09/22/23] cholecalciferol (vitamin D3) 10 mcg (400 unit) capsule 10 mcg PO DAILY 11/28/22 [History Confirmed 09/22/23] ferrous gluconate 324 mg (37.5 mg iron) tablet 324 mg PO DAILY 11/28/22 [History Confirmed 09/22/23] albuterol sulfate 90 mcg/actuation aerosol inhaler 2 puff inhalation Q4H PRN PRN COPD #18 grams 12/13/22 [Rx Confirmed 09/22/23] clopidogrel 75 mg tablet 75 mg PO DAILY 04/30/23 [History Confirmed 09/22/23] glipizide 2.5 mg tablet, extended release 24 hr 2.5 mg PO DAILY 09/19/23 [History Confirmed 09/22/23] lisinopril 5 mg tablet 5 mg PO DAILY 09/19/23 [History Confirmed 09/22/23] metformin 500 mg tablet 500 mg PO QHS 09/19/23 [History Confirmed 09/22/23] pantoprazole 40 mg tablet,delayed release 40 mg PO DAILY 09/19/23 [History Confirmed 09/22/23] FOR[facility]LY [facility] Medical History (Updated 09/19/23 @ 10:59 by Lesvia Zapata) Abnormal electrocardiogram Alcohol use Ambulates with cane Anxiety Arthritis Bilateral carotid bruits Cardiology follow-up encounter CKD (chronic kidney disease) COPD (chronic obstructive pulmonary disease) COPD (chronic obstructive pulmonary disease) COPD with acute exacerbation Depression Diabetes Diabetes mellitus type II, controlled Dietary restriction Dyspnea Essential (primary) hypertension Former smoker GERD (gastroesophageal reflux disease) GI bleed History of edema History of stress test History of TIA (transient ischemic attack) Hyperlipidemia Iron deficiency Leg cramps Long-term use of high-risk medication Neuropathy Nicotine dependence PAD (peripheral artery disease) Preoperative cardiovascular examination Primary osteoarthritis, right shoulder PVD (peripheral vascular disease) Restless legs Right shoulder pain Stage 3 severe COPD by GOLD classification Vaso vagal episode Wears dentures Wears glasses Surgical History (Updated 09/19/23 @ 10:59 by Lesvia Zapata) H/O foot surgery H/O foot surgery H/O tubal ligation H/O: hysterectomy History of appendectomy History of appendectomy History of esophagogastroduodenoscopy (EGD) History of total abdominal hysterectomy Hx of colonoscopy Hx of tubal ligation Right lower extremity angioplasty Family History Sister CAD (coronary artery disease)Brother CAD (coronary artery disease)Mother Cancer Social History Smoking Status: Former smoker quit date: 07/28/15 second hand exposure: Yes alcohol intake: never HPI right shoulder Details: This documentation accurately reflects the service provided and the decisions made by me, Dr. Darrel Love MD 09/22/23 1012. Part of today?s visit was documented by [ ], acting as scribe. ANSON CAPPS is a 82 year old F here today for follow-up of her right shoulder osteoarthritis booked for reverse total shoulder arthroplasty but the insurance company stated they would not approve the surgery without 6 weeks of failed physical therapy. Patient has now done this without improvement. Ortho Exam General General: Yes no acute distress Neurologic: Yes alert and Yes oriented x3 Psychologic: Yes reasonable and appropriate Right Shoulder Skin/Wound: Yes CDI, No ecchymosis, No erythema and No swelling Testing: Negative Hawkin's, Neer's, TTP Biceps or Drop Arm SHOULDER: active fe 30, er 50. weak in fe 4/5 Coding Level of Care Code Off vis,est,level 3 Diagnoses Primary osteoarthritis, right shoulder M19.011 Assessment and Plan Assessment and Plan (1) Primary osteoarthritis, right shoulder: Status: Acute Plan: 82 year old F here today for follow-up of her right shoulder advanced osteoarthritis booked for reverse total shoulder arthroplasty but the insurance company stated they would not approve the surgery without 6 weeks of failed physical therapy. Patient has now done this without improvement. Will proceed with RTSA September 30. [facility] Medical History (Updated 09/19/23 @ 10:59 by Lesvia Zapata) Abnormal electrocardiogram Alcohol use Ambulates with cane Anxiety Arthritis Bilateral carotid bruits Cardiology follow-up encounter CKD (chronic kidney disease) COPD (chronic obstructive pulmonary disease) COPD (chronic obstructive pulmonary disease) COPD with acute exacerbation Depression Diabetes Diabetes mellitus type II, controlled Dietary restriction Dyspnea Essential (primary) hypertension Former smoker GERD (gastroesophageal reflux disease) GI bleed History of edema History of stress test History of TIA (transient ischemic attack) Hyperlipidemia Iron deficiency Leg cramps Long-term use of high-risk medication Neuropathy Nicotine dependence PAD (peripheral artery disease) Preoperative cardiovascular examination Primary osteoarthritis, right shoulder PVD (peripheral vascular disease) Restless legs Right shoulder pain Stage 3 severe COPD by GOLD classification Vaso vagal episode Wears dentures Wears glasses Home Medications albuterol sulfate 2.5 mg/3 mL (0.083 %) solution for nebulization 2.5 mg inhalation Q4H PRN PRN COPD 03/25/16 [History Last Taken Unknown] clonidine HCl 0.3 mg tablet 0.3 mg PO DAILY 03/25/16 [History Last Taken 10/28/23] duloxetine 60 mg capsule,delayed release 30 mg PO DAILY 03/25/16 [History Last Taken 10/29/23] fluticasone 250 mcg-salmeterol 50 mcg/dose blistr powdr for inhalation 1 puff inhalation BID 03/25/16 [History Last Taken 10/28/23] dulaglutide 0.75 mg/0.5 mL subcutaneous pen injector 1.5 mg subcut SALCIDO #2 mL 04/28/19 [History Last Taken 10/26/23] ascorbic acid (vitamin C) 500 mg capsule 500 mg PO DAILY 11/28/22 [History Last Taken 10/28/23] atorvastatin 40 mg tablet 40 mg PO QHS 11/28/22 [History Last Taken 10/28/23] cholecalciferol (vitamin D3) 10 mcg (400 unit) capsule 10 mcg PO DAILY 11/28/22 [History Last Taken 10/28/23] ferrous gluconate 324 mg (37.5 mg iron) tablet 324 mg PO DAILY 11/28/22 [History Last Taken 10/28/23] albuterol sulfate 90 mcg/actuation aerosol inhaler 2 puff inhalation Q4H PRN PRN COPD #18 grams 12/13/22 [Rx Last Taken 10/29/23] clopidogrel 75 mg tablet 75 mg PO DAILY 04/30/23 [History Last Taken 09/24/23] glipizide 2.5 mg tablet, extended release 24 hr 2.5 mg PO DAILY 09/19/23 [History Last Taken 10/28/23] lisinopril 5 mg tablet 5 mg PO DAILY 09/19/23 [History Last Taken 10/29/23] pantoprazole 40 mg tablet,delayed release 40 mg PO DAILY 09/19/23 [History Last Taken 10/29/23] Allergy/AdvReac Type Severity Reaction Status Date / Time ferrous sulfate Allergy Intermediate Other Verified 10/29/23 06:38 iron AdvReac Severe Low blood Verified 10/29/23 06:38 pressure gabapentin AdvReac Intermediate Pedal edema Verified 10/29/23 06:38 pregabalin [From Lyrica] AdvReac Intermediate Pedal edema Verified 10/29/23 06:38 codeine AdvReac Nausea Verified 10/29/23 06:38 Tetracyclines AdvReac Nausea Verified 10/29/23 06:38 Family History Sister CAD (coronary artery disease) Brother CAD (coronary artery disease) Mother Cancer Surgical History (Updated 09/19/23 @ 10:59 by Lesvia Zapata) H/O foot surgery H/O foot surgery H/O tubal ligation H/O: hysterectomy History of appendectomy History of appendectomy History of esophagogastroduodenoscopy (EGD) History of total abdominal hysterectomy Hx of colonoscopy Hx of tubal ligation Right lower extremity angioplasty Social History Smoking Status: Former smoker quit date: 07/28/15 second hand exposure: Yes alcohol intake: never Vital Signs Vital Signs Vital Signs: 10/29/23 06:41 10/29/23 06:41 Temperature 98.4 F Temperature Source Temporal Pulse Rate 88 Respiratory Rate 12 Respiratory Pattern Normal Blood Pressure 145/61 H Blood Pressure Mean 89 Blood Pressure Source Monitor Blood Pressure Position Semi-Fowlers Blood Pressure Location Right Arm Pulse Ox 99 Oxygen Delivery Method Room Air Weight Weight: 127 lb 13.89 oz Body Mass Index (BMI) 25.0 Results Lab / Micro Data 09/22/23 09:31 09/22/23 09:31
[2023-10-29 07:14] LABS: Bedside Glucose 120 mg/dL (74-106)
[2023-10-29] MEDS: Ipratropium/Albuterol Sulfate 3 ML AMPUL.NEB INHALATION (07:18)
--- NOTE | 2023-10-29 07:30 | SHO_PTH ---
PATIENT: ANSON CAPPS LOC: [facility] [place][id number] AGE/SX: 82/F ROOM: RE10/29/[address]: Dr. Darrel Love MD : 1940 BED: DIS: 10/29/2023 SPEC #: [id number] RECD: 10/29/23 10:16 STATUS: DARIAN REKarena #: [id number] MELISSA: 10/29/23 07:[address]: Darrel Love DEPT: SURGICAL PATHOLOGY RECD BY: Stephanie Pickard ENTERED: 10/29/23 11:24 SP TYPE: HUMERUS OTHR DR: Jeff Suresh, SKETCH ARTIST-C Tissues: Humerus, NOS Procedures: Decalcification bone/plaque Surgery Specimen Level IV HEADER OPERATION: right reverse total shoulder replacement PRE-OP DIAGNOSIS: Primary osteoarthritis, right shoulder TISSUE SUBMITTED: Right shoulder humeral head MICROSCOPIC DIAGNOSIS Bone and tissue right shoulder, total shoulder replacement/resection: Humeral head with degenerative osteoarthritic changes. SJ/mr 11/03/23 MICROSCOPIC DESCRIPTION Slides are reviewed. GROSS DESCRIPTION Received is one container labeled with the patient's name and designated Right humeral head. The specimen consists of a humeral head measuring 4.0 x 4.5 x 1.5 cm. The articular surface shows areas of erosion, eburnation and osteophyte formation. No soft tissue is identified. Dictating Machine Mechanic sections are submitted in one cassette after decalcification FLORA: 10/29/23 TC:5 CPT: 42359, 20460
[2023-10-29] MEDS: Cefazolin 2 GM in 0.9% Normal Saline (100mL Bag) 100 ML IV (07:33)
[2023-10-29] MEDS: dexAMETHasone 10 MG/ML Vial IV (07:45)
[2023-10-29] MEDS: TXA 1000mg in NS100 100ml (IVPB at Incision) 660 MG IV (07:45)
--- NOTE | 2023-10-29 09:05 | RAD_ITS ---
PROCEDURE: Right reverse shoulder replacement. DATE OF EXAMINATION: October 29, 2023. INDICATION: Female, 82 years old. Right shoulder replacement. FLUOROSCOPY TIME (if supplied): (5.7 seconds) minutes/seconds. 0.44 mGy. One C-arm image was submitted. RAD/Shoulder One View IMPRESSION: Intraoperative fluoroscopic imaging provided for right reverse shoulder replacement. Electronically Signed: Jamel Tsai MD at 9:30 EDT ,
--- NOTE | 2023-10-29 09:29 | PCM.OPRPT ---
Problems Associated Problem List Diagnoses (1) Primary osteoarthritis, right shoulder: Report of Operation Date of Procedure: 10/29/23 Pre-Operative Diagnosis: R SHOULDER OA Post-Operative Diagnosis: SAME Surgery/Procedure Performed:: Right reverse total shoulder arthroplasty Surgeon: Darrel Love Type of Anesthesia: Block,Regional and General Anesthesiologist: Ever Kendrick Estimated Blood Loss (mL): 100 Description of Procedure: Patient brought to the operating room theater. Placed supine on the beachchair. General anesthesia induced. 2 g IV Ancef administered. 1 g IV tranexamic acid given to the patient for the case as well. All bony prominences padded. SCDs on the leg. Arm gonzalez used to the patient's right side. Patient sat up at 45 degree angle. Upper extremity prepped and draped using chlorhexidine-based prep solution allowing over 3 minutes drying time prior to draping. Preoperative timeout performed to confirm the site the patient and the surgery. Began by making a standard deltopectoral incision just lateral to the coracoid process. Carried the dissection down through skin and subcutaneous tissue achieved meticulous hemostasis. Cephalic vein and the deltoid was retracted laterally and the pectoralis major muscle retracted medially. I used a Gomez shoulder retractor. I incised on the lateral aspect of the conjoined tendon retracted this medially. Identified the biceps. I followed the biceps through the rotator interval. I slightly released the upper border the pectoralis major tendon. I did a biceps tenodesis using #2 FiberWire for the upper border pectoralis major tendon. I then did a lesser tuberosity osteotomy. I protected the axillary nerve with direct palpation. I freed up any adhesions between the subscapularis and the capsule. I placed #2 FiberWire stay sutures in the Ssc. I then made my neck cut using the extramedullary guide, 30 degrees retro. I then remove the rest of the long head of the biceps as well as the labrum and release a small amount of tissue at the inferior aspect of the glenoid slightly released the triceps tendon. I dissected all around and released sharply using the Sears and electrocautery around the metaphysis of the humerus the capsule. I then visualized the glenoid. I used my templating that I did preoperatively using CT planning and the 3d printed guide, to place the guidepin using the guide, intra op measurements using the 3d planning software. I then used the backside reamer with 15 degrees posterior angle, for a Tornier perform small size baseplate. About 1-2mm reaming per template. Good backside seating, over 90%. I then used the center drill bit followed by the small drill in the center of this to size a 36mm central screw. The baseplate and central screw was assembled on the back table and then screwed into place with the 15 degree augment posteriorly near 9 oclock position per templating. I drilled and placed the superior and inferior locking screws, and posterior non locking compression screw. These achieved very good purchase and fixation therefore I did not place the anterior screw. Baseplate was cleaned with pulse lavage followed by impacting the 36 mm glenosphere. Next I turned attention the humeral side. I broached up to a size 3 trial with +6mm size poly. The reduction was good stable slight impingement in full FE, otherwise no impingement with full range of motion therefore I selected those as the final component. I did take intraoperative radiographs to confirm good placement and size selection. I selected was finally a Tornier perform humeral stem size 3 with +6 mm [address] impacted into place. I also put small drill holes just lateral to the biceps groove passed the sutures for the subscapularis lesser tuberosity osteotomy through this and secured this into place in slight internal rotation. Final checks were done with full range of motion no impingement no instability normal shuck test and good tension at the conjoined tendon. Wound thoroughly irrigated followed by closure and subcutaneous tissue with 2-0 Vicryl and skin with 3-0 Monocryl. Skin cleaned with wet dry dressing followed application of Steri-Strips and silver Mepilex dressing with an abduction pillow sling for the upper extremity. Patient woken up from a general anesthetic transferred off the operating table taken postanesthetic care unit in stable condition. All sponge needle instrument counts were correct and complications. Plan for the patient is to be discharged home today hopefully as long as they are comfortable. cpt 39358, 42744? Complications none Admit VTE Documentation VTE Present on Admission: No VTE Mechan Device Prophylaxis: SCD's VTE Pharm Prophylaxis ordered?: No Reason prophylaxis not ordered:: Treatment Not Indicated Procedures Musculoskeletal [id number]: Other Procedure See Report
[2023-10-29] MEDS: TXA 1000mg in NS100 100ml (IVPB at Closure) 660 MG IV (09:30)
--- NOTE | 2023-10-29 09:37 | EX.PCM.DISCH ---
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 Discharge Plan Admission Attending Provider: Darrel Love Primary Care Provider: Jeff Suresh NP Discharge Orders/Prescriptions Prescriptions: New oxycodone-acetaminophen [Endocet] 5-325 mg tablet 1 tab PO Q4H MDD 6 PRN (Reason: pain) 5 Days Qty: 30 0RF No Action dulaglutide 0.75 mg/0.5 mL pen injector 1.5 mg SC SALCIDO Qty: 2 albuterol sulfate 90 mcg/actuation HFA aerosol inhaler 2 puff INHALATION Q4H PRN PRN (Reason: COPD) Qty: 18 6RF atorvastatin 40 mg tablet 40 mg PO QHS cholecalciferol (vitamin D3) 10 mcg (400 unit) capsule 10 mcg PO DAILY ferrous gluconate 324 mg (37.5 mg iron) tablet 324 mg PO DAILY ascorbic acid (vitamin C) 500 mg capsule 500 mg PO DAILY fluticasone propion-salmeterol 1 PUFF inhaler 1 puff INHALATION BID albuterol sulfate 2.5 MG/3 ML solution for nebulization 2.5 mg INHALATION Q4H PRN PRN (Reason: COPD) clonidine HCl 0.3 MG tablet 0.3 mg PO DAILY duloxetine 60 MG capsule 30 mg PO DAILY clopidogrel 75 mg tablet 75 mg PO DAILY glipizide 2.5 mg tablet extended release 24hr 2.5 mg PO DAILY lisinopril 5 mg tablet 5 mg PO DAILY pantoprazole 40 mg tablet,delayed release (DR/EC) 40 mg PO DAILY Referrals / Follow Up: Darrel Love MD [Med Staff - Active Staff] - Jeff Suresh NP, [employer] [Primary Care Provider] - Disposition Disposition (needs filled in before D/C Order can be placed): Home, Self Care
[2023-10-29 10:45] LABS: Bedside Glucose 112 mg/dL (74-106)
== END 2023-10-29 12:47 | disposition home or self-care (01) ==
LOC: SDC 05:36 → AC 05:37
PROVIDERS: Anesthesiology; PCP Nurse Practitioner Primary Care; Referring Provider Orthopaedic Surgery Sports Medicine; Visit Provider Orthopaedic Surgery Sports Medicine
PROC: (CPT 23472; principal; 2023-10-29 07:00)
DX: M19.011 Primary osteoarthritis, right shoulder (principal); J44.9 Chronic obstructive pulmonary disease, unspecified; E11.40 Type 2 diabetes mellitus with diabetic neuropathy, unspecified; E11.22 Type 2 diabetes mellitus with diabetic chronic kidney disease; E11.51 Type 2 diabetes mellitus with diabetic peripheral angiopathy without gangrene; N18.9 Chronic kidney disease, unspecified; I12.9 Hypertensive chronic kidney disease with stage 1 through stage 4 chronic kidney disease, or unspecified chronic kidney disease; E78.5 Hyperlipidemia, unspecified; Z79.51 Long term (current) use of inhaled steroids; Z79.84 Long term (current) use of oral hypoglycemic drugs; Z79.02 Long term (current) use of antithrombotics/antiplatelets; Z79.899 Other long term (current) drug therapy; Z87.891 Personal history of nicotine dependence
CPT/HCPCS: 23472; 01638; 64415; 36415; 73020; 76000; 80048; 82962; 82985; 83036; 83735; 85025; 85610; 85730; 86850; 86900; 86901; 87081; 88305; 88311; 93005; 94640; 97161; 97166; C1776; J2405; J3475

== ENCOUNTER 2023-10-30 05:20 | Emergency (ER) | payer MEDICARE, MEDICAID, SELFPAY ==
[2023-10-30 05:20] VITALS: BP 138/61; PULSE 98; RESP 17; TEMP 36.8; O2SAT 95; BMI 25.9
--- NOTE | 2023-10-30 05:42 | EDS_ITS ---
HPI History of Present Illness Chief Complaint: Upper Extremity Injury Informant: patient and family Narrative Narrative: Patient is an 82-year-old female with past medical history of type 2 diabetes hypertension and hyperlipidemia who underwent a right shoulder surgery yesterday. She was discharged roughly 13 hours ago from PACU. She reports that after returning home the nerve block began to wear off and she started taking the Percocet as directed. She states despite doing this the pain continued to increase. She states that she did not injure the area in any way. She reports she contacted her surgeon around 1 in the morning and was informed that she could take a double dose of the pain med. She states she did this without any symptom improvement and therefore she presents to the hospital for evaluation. [facility] Medical History Abnormal electrocardiogram Alcohol use Ambulates with cane Anxiety Arthritis Bilateral carotid bruits Cardiology follow-up encounter CKD (chronic kidney disease) COPD (chronic obstructive pulmonary disease) COPD (chronic obstructive pulmonary disease) COPD with acute exacerbation Depression Diabetes Diabetes mellitus type II, controlled Dietary restriction Dyspnea Essential (primary) hypertension Former smoker GERD (gastroesophageal reflux disease) GI bleed History of edema History of stress test History of TIA (transient ischemic attack) Hyperlipidemia Iron deficiency Leg cramps Long-term use of high-risk medication Neuropathy Nicotine dependence PAD (peripheral artery disease) Preoperative cardiovascular examination Primary osteoarthritis, right shoulder PVD (peripheral vascular disease) Restless legs Right shoulder pain Stage 3 severe COPD by GOLD classification Vaso vagal episode Wears dentures Wears glasses Home Medications albuterol sulfate 2.5 mg/3 mL (0.083 %) solution for nebulization 2.5 mg inhalation Q4H PRN PRN COPD 03/25/16 [History Last Taken Unknown] clonidine HCl 0.3 mg tablet 0.3 mg PO DAILY 03/25/16 [History Last Taken 10/28/23] duloxetine 60 mg capsule,delayed release 30 mg PO DAILY 03/25/16 [History Last Taken 10/29/23] fluticasone 250 mcg-salmeterol 50 mcg/dose blistr powdr for inhalation 1 puff inhalation BID 03/25/16 [History Last Taken 10/28/23] dulaglutide 0.75 mg/0.5 mL subcutaneous pen injector 1.5 mg subcut SALCIDO #2 mL 04/28/19 [History Last Taken 10/26/23] ascorbic acid (vitamin C) 500 mg capsule 500 mg PO DAILY 11/28/22 [History Last Taken 10/28/23] atorvastatin 40 mg tablet 40 mg PO QHS 11/28/22 [History Last Taken 10/28/23] cholecalciferol (vitamin D3) 10 mcg (400 unit) capsule 10 mcg PO DAILY 11/28/22 [History Last Taken 10/28/23] ferrous gluconate 324 mg (37.5 mg iron) tablet 324 mg PO DAILY 11/28/22 [History Last Taken 10/28/23] albuterol sulfate 90 mcg/actuation aerosol inhaler 2 puff inhalation Q4H PRN PRN COPD #18 grams 12/13/22 [Rx Last Taken 10/29/23] clopidogrel 75 mg tablet 75 mg PO DAILY 04/30/23 [History Last Taken 09/24/23] glipizide 2.5 mg tablet, extended release 24 hr 2.5 mg PO DAILY 09/19/23 [History Last Taken 10/28/23] lisinopril 5 mg tablet 5 mg PO DAILY 09/19/23 [History Last Taken 10/29/23] pantoprazole 40 mg tablet,delayed release 40 mg PO DAILY 09/19/23 [History Last Taken 10/29/23] oxycodone-acetaminophen 5 mg-325 mg tablet (Endocet) 1 tab PO Q4H PRN pain 5 days #30 tabs 10/29/23 [Rx Last Taken Unknown] lorazepam 0.5 mg tablet (Ativan) 0.5 mg PO TID PRN anxiety/pain 5 days #15 tabs 10/30/23 [Rx Last Taken Unknown] Allergy/AdvReac Type Severity Reaction Status Date / Time ferrous sulfate Allergy Intermediate Other Verified 10/30/23 05:20 iron AdvReac Severe Low blood Verified 10/30/23 05:20 pressure gabapentin AdvReac Intermediate Pedal edema Verified 10/30/23 05:20 pregabalin [From Lyrica] AdvReac Intermediate Pedal edema Verified 10/30/23 05:20 codeine AdvReac Nausea Verified 10/30/23 05:20 Tetracyclines AdvReac Nausea Verified 10/30/23 05:20 Family History Sister CAD (coronary artery disease) Brother CAD (coronary artery disease) Mother Cancer Surgical History (Updated 09/19/23 @ 10:59 by Lesvia Zapata) H/O foot surgery H/O foot surgery H/O tubal ligation H/O: hysterectomy History of appendectomy History of appendectomy History of esophagogastroduodenoscopy (EGD) History of total abdominal hysterectomy Hx of colonoscopy Hx of tubal ligation Right lower extremity angioplasty Social History Smoking Status: Former smoker quit date: 07/28/15 second hand exposure: Yes alcohol intake: never ROS ROS ED Constitutional Constitutional ED: Denies chills or fever(s) ENT ENT ED: Denies sore throat Cardiovascular Cardiovascular: Denies chest pain, palpitations or racing heartbeat Respiratory/Chest Respiratory/Chest: Denies cough or dyspnea Gastrointestinal Gastrointestinal: Denies abdominal pain, diarrhea, nausea or vomiting Genitourinary Genitourinary ED: Denies dysuria Musculoskeletal Musculoskeletal: Reports other Details: Positive right shoulder pain Neurologic Neurologic: Denies headache(s) Hematologic/Lymphatic Hematologic/Lymphatic: Reports easy bleeding and easy bruising EXAM Physical Exam Const Vital Signs: 10/30/23 05:20 Temperature 98.3 F Temperature Source Temporal Pulse Rate 98 Respiratory Rate 17 Blood Pressure 138/61 H Blood Pressure Mean 86 Pulse Ox 95 Oxygen Delivery Method Room Air Positive well nourished and well developed General Appearance ED: well developed HEENT HEENT Narrative: Normocephalic atraumatic Eyes PERRL and EOMs intact bilaterally Eyes Narrative: No subconjunctival pallor noted Neck supple Resp normal respiratory effort and clear to auscultation bilaterally Cardio regular rate and regular rhythm Extremity Extremity Narrative: Patient has postsurgical incision to the right shoulder that is clean dry and intact. There is dependent soft tissue swelling and ecchymosis to the distal humerus from the midportion of the humerus tracking down to the elbow. However the area is still soft and compressible going against compartment syndrome. The right upper extremity is neurovascular intact with a normal radial pulse and capillary refill is less than 2-second. AIN/PIN are still intact and normal. Remainder of the exam is normal Neuro oriented x3 and CN's II-XII intact bilaterally Sensorium / Orientation: alert Psych mental status grossly normal Skin Skin Narrative: Soft tissue swelling with postsurgical incision and ecchymosis to the right upper arm as documented above MDM MDM MDM Narrative Medical decision making narrative: Patient arrived to the ER with stable vitals and had increased postoperative pain. By exam there is no sign of infection or compartment syndrome. She is neurovascular intact and there seems to be no persistent bleeding. As the patient states she took 2 Percocet as directed by her doctor but did not have symptom improvement I did elect to place an IV and she received morphine Zofran Toradol and Ativan. Patient was able to fall asleep indicating she had great improvement of her pain. At this time there is no obvious postoperative infection or compartment syndrome I do not have any suspicion for postoperative DVT as she is only approximate 14 hours out from surgery and as her pain is now controlled she can be discharged and follow-up with orthopedic surgeon tomorrow as previously directed. History & Record Review Discussion w/independent historian: Patient and Family Discharge Plan Triage Chief Complaint: Upper Extremity Injury ED Provider: Vernon Gillespie Dx/Rx/DC Orders Clinical Impression: Post-operative pain, Essential (primary) hypertension, Hyperlipidemia, Diabetes mellitus type II, controlled Instructions: Pain Management After Surgery Prescriptions: New lorazepam [Ativan] 0.5 mg tablet 0.5 mg PO TID PRN (Reason: anxiety/pain) 5 Days Qty: 15 0RF No Action dulaglutide 0.75 mg/0.5 mL pen injector 1.5 mg SC SALCIDO Qty: 2 albuterol sulfate 90 mcg/actuation HFA aerosol inhaler 2 puff INHALATION Q4H PRN PRN (Reason: COPD) Qty: 18 6RF atorvastatin 40 mg tablet 40 mg PO QHS cholecalciferol (vitamin D3) 10 mcg (400 unit) capsule 10 mcg PO DAILY ferrous gluconate 324 mg (37.5 mg iron) tablet 324 mg PO DAILY ascorbic acid (vitamin C) 500 mg capsule 500 mg PO DAILY fluticasone propion-salmeterol 1 PUFF inhaler 1 puff INHALATION BID albuterol sulfate 2.5 MG/3 ML solution for nebulization 2.5 mg INHALATION Q4H PRN PRN (Reason: COPD) clonidine HCl 0.3 MG tablet 0.3 mg PO DAILY duloxetine 60 MG capsule 30 mg PO DAILY clopidogrel 75 mg tablet 75 mg PO DAILY glipizide 2.5 mg tablet extended release 24hr 2.5 mg PO DAILY lisinopril 5 mg tablet 5 mg PO DAILY pantoprazole 40 mg tablet,delayed release (DR/EC) 40 mg PO DAILY oxycodone-acetaminophen [Endocet] 5-325 mg tablet 1 tab PO Q4H MDD 6 PRN (Reason: pain) 5 Days Qty: 30 0RF Primary Care Provider: Jeff Suresh NP Referrals: Darrel Love MD [Med Staff - Active Staff] - Jeff Sruesh NP, [employer] [Primary Care Provider] - Activity Restrictions/Additional Instructions: Please keep your appointment with orthopedic surgeon tomorrow as previously directed. As orthopedic surgeon informed you you can take 2 Percocet at a time every 4-6 hours as needed for pain control. You can add low-dose Ativan up to 3 times a day if needed to help with sleep or pain. If you feel your pain is not controlled to a sufficient value please follow-up with your doctor or return to ER for repeat evaluation Disposition Disposition: Home, Self Care
[2023-10-30] MEDS: LORazepam 2 MG/ML Syringe 0.5 MG IV (05:58)
[2023-10-30] MEDS: Ondansetron 4 MG/2 ML Vial IV (05:59)
[2023-10-30] MEDS: Ketorolac 15 MG/ML Vial IV (06:01)
[2023-10-30] MEDS: Morphine 4 MG/ML Syringe IV (06:03)
[2023-10-30 07:59] VITALS: BP 134/78; PULSE 76; RESP 14; TEMP 36.6; O2SAT 97
== END 2023-10-30 08:01 | disposition home or self-care (01) ==
PROVIDERS: Emergency Provider Emergency Medicine; PCP Nurse Practitioner Primary Care; Visit Provider Emergency Medicine
DX: G89.18 Other acute postprocedural pain (principal); J44.9 Chronic obstructive pulmonary disease, unspecified; E11.51 Type 2 diabetes mellitus with diabetic peripheral angiopathy without gangrene; E11.40 Type 2 diabetes mellitus with diabetic neuropathy, unspecified; E11.22 Type 2 diabetes mellitus with diabetic chronic kidney disease; M25.511 Pain in right shoulder; I12.9 Hypertensive chronic kidney disease with stage 1 through stage 4 chronic kidney disease, or unspecified chronic kidney disease; E78.5 Hyperlipidemia, unspecified; Z79.84 Long term (current) use of oral hypoglycemic drugs; Z79.02 Long term (current) use of antithrombotics/antiplatelets; Z79.899 Other long term (current) drug therapy; Z87.891 Personal history of nicotine dependence
CPT/HCPCS: 96374; 96375; 99282; A4216; J2405

== ENCOUNTER 2024-02-17 13:02 | Outpatient (RCR) | payer MEDICARE, MEDICAID, SELFPAY ==
--- NOTE | 2024-02-17 13:56 | HP.PTEVAL ---
Patient's Visit Information Visit Information Visit Information: ANSON CAPPS is a 83 year old F referred to Physical Therapy by Dr. Darrel Love MD with a diagnosis of Right Reverse TSA. Date of Evaluation: 02/17/24 Physical Therapist: Lauren Anderson DPT Visit Plan Frequency: 1x/Week Plan: Patient is fully functional s/p Right Reverse TSA and is appropriate to continue her HEP Subjective Subjective: Patient reports that right Reverse TSA 10/30/[address] Love- she reports that its doing well and she is having no issues with it. She went to see him in December for therapy due to her missing out on it due to hospitalized for pneumonia and a spine injury. The shoulder is 100%- she has no shoulder pain at this point. She is right hand dominate. She feels that the hand is weak- but she is able to use it. She is able to do all of her dressing, cooking, cleaning but she does not drive. She lives alone. The middle and ring finger is numb and tingling. Sleep: sleep is not disturbed. PMHx/Meds: see list in chart. Objective Objective: Posture: fair throughout- no guarding of the right UE Palpation: not tender to touch in right UE AROM: Flexion: 170 degrees, Abd: 165 degrees, IR: to belt line, ER: 40 degrees, Elbow/Wrist: WNL Strength: Scap: fair, Shoulder: 4+/5, Elbow: 4+/5, Wrist: 4+/5, Precision Lens Centerer And Edger: equal side to side and good Balance/Special Test Scores Quick DASH Score: 50.0000 Rehabilitation Potential Rehabilitation Potential: Good Anticipated Interventions Text: Thank you for the opportunity to evaluate your patient. For Medicare and Medicare HMO plans, please review the plan of care and approve it. It will need to be FAXED BACK to us at [phone] for Medicare purposes. For Medicare only, by signing this I certify the plan of care. Please let me know if there are questions or concerns regarding this plan of care. Physician Signature: Date:
--- NOTE | 2024-02-17 13:56 | HP.PT.NRP ---
Patient Information Patient Information: ANSON CAPPS was seen in my office for initial evaluation on 02/17/24. The following Plan of Care was established for this patient: POC Established Initial Frequency: 1x/Week Last Seen Last Seen: This patient was last seen in our office . Pertinent comments regarding their Physical therapy will appear below: At this point I will be discontinuing this patient from physical therapy. I would be happy to see this patient again in the future if found appropriate by the physician. Thank you! Lauren Anderson, MARIET Balance/Gait/Functional tests Balance/Special Test Scores Quick DASH Score: 50.0000
== END 2024-02-17 19:00 | disposition home or self-care (01) ==
LOC: PT 13:02
PROVIDERS: PCP Nurse Practitioner Primary Care; Visit Provider Orthopaedic Surgery Sports Medicine
DX: M19.011 Primary osteoarthritis, right shoulder (principal)
CPT/HCPCS: 97161

== ENCOUNTER 2024-04-27 14:20 | Inpatient (IN) | payer MEDICARE, MEDICAID, SELFPAY ==
[2024-04-27 14:22] VITALS: BP 118/46; PULSE 106; RESP 18; TEMP 36.6; O2SAT 97; BMI 26.4
--- NOTE | 2024-04-27 15:30 | CT_ITS ---
STUDY: CT ABDOMEN AND PELVIS WITH CONTRAST REASON FOR EXAM: Female, 83 years old. LLQ pain RADIATION DOSAGE (If Supplied By Facility): CTDIvol = ( 7.63 ) mGy, DLP = ( 401.82 ) mGycm TECHNIQUE: iv-75 ml isovue 300 was administered. Transaxial images were obtained from the dome of the diaphragm to the symphysis pubis. Multiplanar coronal and sagittal images were reformatted. The protocol utilizes one or more of the following dose reduction techniques: automated exposure control, adjustment of mA and/or kV according to patient size,and/or use of iterative reconstruction technique. COMPARISON: No relevant prior comparison study available FINDINGS: The lung bases demonstrate mild atelectatic changes in the left lower lobe. The visualized portions of the heart are within normal limits. Coronary calcifications. Normal liver. Distended gallbladder without evidence of gallstones. Normal spleen. Normal pancreas. Normal bilateral adrenal glands. Small hiatal hernia. Normal in caliber small bowel loops. Fecal retention. Diverticulosis of the descending and proximal sigmoid colon with focal thickening and stranding of the distal descending colon system with mild acute diverticulitis. The appendix is visualized and appears normal. There is diffuse atherosclerotic calcification of the abdominal aorta, without a demonstrated aneurysm. No retroperitoneal adenopathy. Small cyst in the left kidney appears to be simple and no further follow-up exam is needed. Left renal vascular calcifications. No evidence of hydronephrosis. Normal urinary bladder. There is absence of the uterus consistent with a prior hysterectomy. There is a very small umbilical hernia containing fat. No demonstrated acute osseous changes. CT/Abdomen/Pelvis W IV Cont ONLY IMPRESSION: Mild focal acute diverticulitis of the descending colon. No evidence of drainable abscess or free air. Electronically Signed: Rosalio Ramos MD at 17:36 EDT ,
--- NOTE | 2024-04-27 15:32 | EDS_ITS ---
HPI History of Present Illness Chief Complaint: Abd Pain Narrative Narrative: Chief complaint and HPI: Abdominal pain. 83-year-old female with history of atrial fibrillation, PAD on Plavix and Eliquis presents for evaluation of left lower quadrant abdominal pain. Patient states she has a previous history of GI bleed in which she received a colonoscopy by Dr. Hou last year. Patient states she woke up with left lower quadrant abdominal pain. Pain is not improved. She endorses nausea and 1 episode of vomiting. She states that she has intermittent constipation. She diarrhea today. Daughter states the stool was dark and smelled like a GI bleed. Patient endorses decreased p.o. intake today. She denies any fever, chills, URI symptoms, shortness of breath, chest pain, dysuria, hematuria. Review of systems: See HPI Medications: As listed on the chart Allergies: As listed on the chart PFSH: Per chart Vital signs: As listed on the chart. Reviewed. Physical exam: Gen: A&O x3, NAD Head: Normocephalic, atraumatic Eyes: No sclera icterus, conjunctiva clear ENT: Moist mucous membranes Neck: Trachea midline, No JVD CV: RRR, no murmurs, no peripheral edema Resp: Lungs CTA BL, no w/r/c GI: Abd soft, non-distended, tender to palpation in the left lower quadrant, no r/r/g Rectal: Normal external examination. No evidence of hemorrhoids or fissures. Normal tone and sensation. No masses, fluctuance, or tenderness. No pain out of proportion Musc: Full ROM, no deformity Skin: Warm, dry Neuro: Alert, oriented, grossly intact, sensation intact Psych: Cooperative, appropriate mood and affect [facility] Medical History Alcohol abuse Kidney disease Atrial fibrillation Hypertension TIA (transient ischemic attack) Primary osteoarthritis, right shoulder Right shoulder pain Wears glasses Wears dentures Alcohol use Diabetes Ambulates with cane Arthritis Restless legs Vaso vagal episode Dietary restriction COPD (chronic obstructive pulmonary disease) Former smoker Leg cramps PVD (peripheral vascular disease) History of edema History of stress test Cardiology follow-up encounter Neuropathy Iron deficiency History of TIA (transient ischemic attack) GERD (gastroesophageal reflux disease) GI bleed Depression Anxiety CKD (chronic kidney disease) Diabetes mellitus type II, controlled Hyperlipidemia Stage 3 severe COPD by GOLD classification Essential (primary) hypertension PAD (peripheral artery disease) Preoperative cardiovascular examination Nicotine dependence Abnormal electrocardiogram Bilateral carotid bruits Long-term use of high-risk medication COPD (chronic obstructive pulmonary disease) COPD with acute exacerbation Dyspnea Home Medications ?Medication ?Instructions ?Recorded ?Last Taken ?Type albuterol sulfate 2.5 mg/3 mL 2.5 mg inhalation Q4H PRN PRN COPD 03/25/16 Unknown History (0.083 %) solution for nebulization ascorbic acid (vitamin C) 500 mg 500 mg PO DAILY 11/28/22 10/28/23 History capsule cholecalciferol (vitamin D3) 10 10 mcg PO DAILY 11/28/22 10/28/23 History mcg (400 unit) capsule clopidogrel 75 mg tablet 75 mg PO DAILY 04/30/23 09/24/23 History glipizide 2.5 mg tablet, extended 2.5 mg PO DAILY 09/19/23 10/28/23 History release 24 hr lisinopril 5 mg tablet 5 mg PO DAILY 09/19/23 10/29/23 History pantoprazole 40 mg tablet,delayed 40 mg PO DAILY 09/19/23 10/29/23 History release albuterol sulfate 90 mcg/actuation 2 inh inhalation Q4H PRN COPD #18 11/04/23 Unknown Rx aerosol inhaler grams fluticasone 250 mcg-salmeterol 50 1 inh inhalation BID #60 ea 11/04/23 Unknown Rx mcg/dose blistr powdr for inhalation apixaban 2.5 mg tablet (Eliquis) 2.5 mg PO Q12H 03/18/24 Unknown History clonidine HCl 0.2 mg tablet 0.2 mg PO QHS 03/18/24 Unknown History diltiazem HCl 120 mg 240 mg PO DAILY 03/18/24 Unknown History capsule,extended release 24 hr dulaglutide 1.5 mg/0.5 mL 1.5 mg subcut .weekly 03/18/24 Unknown History subcutaneous pen injector (Trulicity) duloxetine 30 mg capsule,delayed 30 mg PO QHS 03/18/24 Unknown History release ferrous gluconate 324 mg (38 mg 324 mg PO DAILY 03/18/24 Unknown History iron) tablet Allergy/AdvReac Type Severity Reaction Status Date / Time ferrous sulfate Allergy Intermediate Other Verified 04/27/24 14:21 iron AdvReac Severe Low blood Verified 04/27/24 14:21 pressure gabapentin AdvReac Intermediate Pedal edema Verified 04/27/24 14:21 pregabalin (From Lyrica) AdvReac Intermediate Pedal edema Verified 04/27/24 14:21 codeine AdvReac Nausea Verified 04/27/24 14:21 Tetracyclines AdvReac Nausea Verified 04/27/24 14:21 Family History (Updated 04/27/24 @ 23:[address] Bertha Da Silva MD) Sister CAD (coronary artery disease) Brother CAD (coronary artery disease) Mother Cancer Father , at age 70 secondary to GSW while hunting. No problems noted. Surgical History H/O shoulder surgery Hx of tubal ligation Hx of colonoscopy History of esophagogastroduodenoscopy (EGD) Right lower extremity angioplasty H/O foot surgery History of appendectomy History of total abdominal hysterectomy H/O tubal ligation H/O: hysterectomy H/O foot surgery History of appendectomy Social History household members: none Smoking Status: Former smoker quit date: 07/28/15 second hand exposure: Yes alcohol intake: never substance use type: does not use EXAM Physical Exam Const Vital Signs: 04/27/24 14:22 04/27/24 16:03 04/27/24 17:42 Temperature 97.9 F Temperature Source Oral Pulse Rate 106 H 101 H 102 H Respiratory Rate 18 18 15 Blood Pressure 118/46 L 105/54 L 149/54 H Blood Pressure Mean 70 71 85 Pulse Ox 97 95 Oxygen Delivery Method Room Air 04/27/24 19:00 04/27/24 19:59 Temperature 99.6 F H Temperature Source Pulse Rate 102 H 95 Respiratory Rate 18 18 Blood Pressure 123/74 H 108/58 L Blood Pressure Mean 90 74 Pulse Ox 95 95 Oxygen Delivery Method MDM MDM MDM Narrative Medical decision making narrative: 83-year-old female with history of atrial fibrillation, PAD on Plavix and Eliquis presents for evaluation of left lower quadrant warren pain. Patient has a history of GI bleed. On chart review, patient had a colonoscopy on 05/05/2023 which showed an 8 mm polyp in the rectum that was removed. Diverticulosis. 3 bleeding colonic angiodysplastic lesions. Differential diagnosis includes was not limited to diverticulitis, gastroenteritis, GI bleed, UTI, viral illness. NS bolus, morphine, Zofran ordered for symptoms. Abdominal pain workup ordered including CT abdomen and pelvis.CBC with leukocytosis of 20.9. Patient has anemia with a hemoglobin 8.6. This is downtrending from August at 11.6. INR unremarkable. CMP is consistent with dehydration with hyponatremia at 133, hyperkalemia 5.2. Patient has worsening renal insufficiency with a creatinine of 1.62. In August it was 1.28. Lactic acid elevated at 2.4. No transaminitis. Lipase unremarkable. UA positive for UTI. Occult positive. CT abdomen pelvis shows mild focal acute diverticulitis of the descending colon. No evidence of drainable abscess or free air. Patient will warrant admission for her GI bleed as well as diverticulitis and UTI. Zosyn given for antibiotics. Patient was educated on all her results and the plan. She confirmed understanding. Patient was discussed with Dr. Da Silva to excepted admission. Impression: 1. GI bleed 2. Acute diverticulitis 3. Acute on chronic anemia 4. Renal insufficiency 5. Hyponatremia 6. Hyperkalemia 7. Lactic acidosis 8. UTI Lab Data Labs: Laboratory Results - last 24 hr 04/27/24 04/27/24 15:14 16:00 WBC 20.9 H RBC 2.95 L Hgb 8.6 L Hct 28.1 L MCV 95.3 MCH 29.2 MCHC 30.6 L RDW Std Deviation 51.3 H RDW Coeff of Tia 14.7 H Plt Count 410 MPV 9.6 Immature Gran % (Auto) 0.700 Neut % (Auto) 89.4 H Lymph % (Auto) 3.8 L [place] % (Auto) 5.9 Eos % (Auto) 0.0 Baso % (Auto) 0.2 Absolute Neuts (auto) 18.7 H Absolute Lymphs (auto) 0.80 L Nucleated RBC % 0 PT 15.7 H INR 1.3 APTT 30.0 Sodium 133 L Potassium 5.2 H Chloride 105 Carbon Dioxide 20.0 L Anion Gap 9 BUN 68 H Creatinine 1.62 H Estim Creat Clear Calc 22.32 Est GFR (MDRD) Af Amer 39 L Est GFR (MDRD) Non-Af 32 L BUN/Creatinine Ratio 42.0 H Glucose 228 H Lactic Acid 2.4 H* Calcium 8.7 Magnesium 2.5 Total Bilirubin 0.20 AST 17 ALT 22 Alkaline Phosphatase 62 Total Protein 6.5 Albumin 3.0 L Globulin 3.5 Albumin/Globulin Ratio 0.9 Lipase 44 Urine Color Yellow Urine Clarity Sl. Cloudy Urine pH 6.0 Ur Specific [place] 1.010 Urine Protein 15 H Urine Glucose (UA) Normal Urine Ketones Negative Urine Occult Blood 10 H Urine Nitrite Negative Urine Bilirubin Negative Urine Urobilinogen Normal Ur Leukocyte Esterase 500 H Urine RBC 0 SEEN Urine WBC 10-25 SEEN Ur Squamous Epith Cells 0-5 SEEN Ur Transition Epith Cell 0-5 SEEN Urine Bacteria 1+ Urine Mucus 0 SEEN Radiography Diagnostic Testing: Clinical Impression(s) from Imaging Studies Abdomen/Pelvis CT 04/27/24 15:30 IMPRESSION: Mild focal acute diverticulitis of the descending colon. No evidence of drainable abscess or free air. Electronically Signed: Rosalio Ramos MD at 17:36 EDT , Discharge Plan Disposition Disposition: Acute Care Hospital [facility] Discharge Date/Time: 04/27/24 20:40
[2024-04-27] MEDS: Morphine 2 MG/ML Syringe IV (15:59)
[2024-04-27] MEDS: 0.9% Normal Saline (1000mL) 1,000 ML 999 ML IV (15:59)
[2024-04-27] MEDS: Ondansetron 4 MG/2 ML Vial IV (16:00)
[2024-04-27 16:03] VITALS: BP 105/54; PULSE 101; RESP 18
[2024-04-27 16:14] LABS: Mucous, Urine 0 SEEN /hpf (<or=2+); Red Blood Cells-Urine 0 SEEN /hpf (0-5)
[2024-04-27 16:15] LABS: Absolute Neutrophil Count 18.7 X10^3/uL (2.0-7.7); Basophil# 0.05 X10^3/uL; Basophil% 0.2 % (0-1); Hematocrit 28.1 % (37-47); Hemoglobin 8.6 g/dL (12.0-15.0); Lymphocyte % 3.8 % (19-41); Mean Corp Hgb Conc 30.6 g/dL (32-36); Mean Corpuscular Hgb 29.2 pg (27.0-32.0); Mean Corpuscular Volume 95.3 fL (81-99); Mean Platelet Vol. 9.6 fl (6.2-12.0); Monocyte# 1.24 X10^3/uL; Monocyte% 5.9 % (0-10); NRBC Flagged by Analyzer 0 % (0-5); Neutrophil # 18.69 X10^3/uL (2.7-7.7); Neutrophil % 89.4 % (47-70); Platelet Count 410 K/mm3 (150-450); RBC Distribution Width CV 14.7 % (11.6-14.6); RBC Distribution Width SD 51.3 fl (35.1-43.9); Red Blood Count 2.95 M/mm3 (4.2-5.4); White Blood Count 20.9 K/mm3 (4.4-11.0)
[2024-04-27 16:17] LABS: POSITIVE COUNT NO; POSITIVE DIFFERENTIAL NO; POSITIVE MORPHOLOGY NO
[2024-04-27 16:24] LABS: International Normalized Ratio 1.3; Prothrombin Time (Protime)PT. 15.7 SECONDS (11.7-14.9)
[2024-04-27 16:28] LABS: Color, Urine Yellow (Yellow); Glucose, Dipstick Normal (Normal); Ketone-Dipstick Negative (Negative); Leukocyte Esterase-Dipstick 500 /ul (Negative); Nitrite-Dipstick Negative (Negative); Occult Blood-Urine 10 /ul (Negative); Protein-Dipstick 15 mg/dl (Negative); Urine Bilirubin Dipstick Negative (Negative); Urine Clarity Sl. Cloudy (Clear); Urine Urobilinogen Normal (Normal)
[2024-04-27 16:32] LABS: ALB/GLOB Ratio 0.9 RATIO (0.9-2.4); AST(SGOT) 17 U/L (15-37); Alanine Aminotransfer ALT/SGPT 22 U/L (13-56); Alkaline Phosphatase 62 U/L (45-117); Anion Gap 9 (5-15); BUN 68 mg/dL (7-18); Calcium,Total 8.7 mg/dL (8.5-10.1); Chloride 105 mmol/L (98-107); Creatinine, Serum 1.62 mg/dL (0.55-1.02); EST Glomerular Filtration Rate 32 mL/min (>60); Est Glom Filt Rate - Afr Amer 39 mL/min (>60); Estimated Creatinine Clearance 22.32 ml/min; Globulin 3.5 g/dL (2.2-4.2); Glucose 228 mg/dL (74-106); Lipase 44 U/L (13-75); Potassium 5.2 mmol/L (3.5-5.1); Protein, Total 6.5 g/dL (6.4-8.2); Sodium Level 133 mmol/L (136-145)
[2024-04-27 16:44] LABS: Lactic Acid 2.4 mmol/L (0.4-1.9)
[2024-04-27 17:11] LABS: Bacteria 1+ /hpf (None Seen); Squamous Epithelial Cells - UA 0-5 SEEN /hpf (5-10)
[2024-04-27 17:12] LABS: Transitional Epithelial - Ur 0-5 SEEN /hpf (0-5)
[2024-04-27 17:16] LABS: White Blood Cells 10-25 SEEN /hpf (0-5)
[2024-04-27 17:42] VITALS: BP 149/54; PULSE 102; RESP 15; O2SAT 95
[2024-04-27 19:00] VITALS: BP 123/74; PULSE 102; RESP 18; O2SAT 95
--- NOTE | 2024-04-27 19:35 | HP.PCM.HOS_ITS ---
HPI - General General Date of Admission: 04/27/24 Date of Service: 04/27/24 Chief Complaint: Abdominal pain, N/V HPI Narrative The patient is an 83 y/o F w/ PMHx: RLS, COPD, Hx TIA, GERD w/ Hx GI bleed, Chronic anemia/Fe deficiency anemia, Anxiety and Depression, CKD stage III unclear subtype, PAD status post peripheral angioplasty, Diabetes mellitus type II w/ chronic neuropathy, Former tobacco use who presents to the [facility] ED on 04/27/24 with history of onset left lower abdominal quadrant pain which she noted upon awakening which did not improve and continued with onset of nausea with 1 bout of emesis with chronic history of intermittent constipation however she notes she had diarrhea on day of presentation which was very dark and black and foul-smelling with poor oral intake with no recent fevers or chills but given this presentation prompted daughter to bring her in for evaluation. Patient notes initially her pain was a 6 out of 10 in severity decreasing down to 4 out of 10 in severity and following ED interventions upon hospitalist evaluation reported at 1 out of 10 in severity. She notes pain is primarily present when she is moves or with palpation of the left lower quadrant now. Workup in the ED included T97.9, heart rate 106, BP 118/46, respiratory rate 18, 97% on room air with most recent repeat vitals heart rate 102, BP 149/54, respiratory rate 15, 95% on room air, CBC with WBC 20.9, hemoglobin 8.6, MCV 95.3, platelet 410 with left shift and lymphopenia, coags with PT 15.7 otherwise not marked appearing, CMP with sodium 133, potassium 5.2, chloride 105, carbon oxide 20, anion gap 9, BUN/creatinine 68/1.62, GFR 32, glucose 228, lactic acid 2.4, lipase 44, hepatic profile not marked appearing, urinalysis with cloudy appearing urine, specific cavity 1.015, protein 15, ketone negative, glucose normal, occult blood 10, urine nitrite negative, leukocyte esterase 500, urine WBCs 10-25 with 1+ urine bacteria, fecal occult blood positive, CT abdomen and pelvis with mild focal acute diverticulitis of the descending colon with no evidence of any drainable abscess or free air. In the ED patient ministered 1 L normal saline, morphine 2 mg IV x 1, Zofran 4 mg IV x 1 as well as IV Zosyn. [facility] Medical History Alcohol abuse Kidney disease Atrial fibrillation Hypertension TIA (transient ischemic attack) Primary osteoarthritis, right shoulder Right shoulder pain Wears glasses Wears dentures Alcohol use Diabetes Ambulates with cane Arthritis Restless legs Vaso vagal episode Dietary restriction COPD (chronic obstructive pulmonary disease) Former smoker Leg cramps PVD (peripheral vascular disease) History of edema History of stress test Cardiology follow-up encounter Neuropathy Iron deficiency History of TIA (transient ischemic attack) GERD (gastroesophageal reflux disease) GI bleed Depression Anxiety CKD (chronic kidney disease) Diabetes mellitus type II, controlled Hyperlipidemia Stage 3 severe COPD by GOLD classification Essential (primary) hypertension PAD (peripheral artery disease) Preoperative cardiovascular examination Nicotine dependence Abnormal electrocardiogram Bilateral carotid bruits Long-term use of high-risk medication COPD (chronic obstructive pulmonary disease) COPD with acute exacerbation Dyspnea Home Medications ?Medication ?Instructions ?Recorded ?Last Taken ?Type albuterol sulfate 2.5 mg/3 mL 2.5 mg inhalation Q4H PRN PRN COPD 03/25/16 Unknown History (0.083 %) solution for nebulization ascorbic acid (vitamin C) 500 mg 500 mg PO DAILY 11/28/22 10/28/23 History capsule cholecalciferol (vitamin D3) 10 10 mcg PO DAILY 11/28/22 10/28/23 History mcg (400 unit) capsule clopidogrel 75 mg tablet 75 mg PO DAILY 04/30/23 09/24/23 History glipizide 2.5 mg tablet, extended 2.5 mg PO DAILY 09/19/23 10/28/23 History release 24 hr lisinopril 5 mg tablet 5 mg PO DAILY 09/19/23 10/29/23 History pantoprazole 40 mg tablet,delayed 40 mg PO DAILY 09/19/23 10/29/23 History release albuterol sulfate 90 mcg/actuation 2 inh inhalation Q4H PRN COPD #18 11/04/23 Unknown Rx aerosol inhaler grams fluticasone 250 mcg-salmeterol 50 1 inh inhalation BID #60 ea 11/04/23 Unknown Rx mcg/dose blistr powdr for inhalation apixaban 2.5 mg tablet (Eliquis) 2.5 mg PO Q12H 03/18/24 Unknown History clonidine HCl 0.2 mg tablet 0.2 mg PO QHS 03/18/24 Unknown History diltiazem HCl 120 mg 240 mg PO DAILY 03/18/24 Unknown History capsule,extended release 24 hr dulaglutide 1.5 mg/0.5 mL 1.5 mg subcut .weekly 03/18/24 Unknown History subcutaneous pen injector (Trulicity) duloxetine 30 mg capsule,delayed 30 mg PO QHS 03/18/24 Unknown History release ferrous gluconate 324 mg (38 mg 324 mg PO DAILY 03/18/24 Unknown History iron) tablet Allergy/AdvReac Type Severity Reaction Status Date / Time ferrous sulfate Allergy Intermediate Other Verified 04/27/24 14:21 iron AdvReac Severe Low blood Verified 04/27/24 14:21 pressure gabapentin AdvReac Intermediate Pedal edema Verified 04/27/24 14:21 pregabalin (From Lyrica) AdvReac Intermediate Pedal edema Verified 04/27/24 14:21 codeine AdvReac Nausea Verified 04/27/24 14:21 Tetracyclines AdvReac Nausea Verified 04/27/24 14:21 Family History Sister CAD (coronary artery disease) Brother CAD (coronary artery disease) Mother Cancer Father , at age 70 secondary to GSW while hunting. No problems noted. Surgical History H/O shoulder surgery Hx of tubal ligation Hx of colonoscopy History of esophagogastroduodenoscopy (EGD) Right lower extremity angioplasty H/O foot surgery History of appendectomy History of total abdominal hysterectomy H/O tubal ligation H/O: hysterectomy H/O foot surgery History of appendectomy Social History household members: none Smoking Status: Former smoker quit date: 07/28/15 second hand exposure: Yes alcohol intake: never substance use type: does not use ROS ROS Narrative Admission Review of Systems: CONSTITUTIONAL: No weight loss, fever, chills, + weakness or fatigue. HEENT: Eyes: No visual loss, blurred vision, double vision or yellow sclerae. Ears, Nose, Throat: No hearing loss, sneezing, congestion, runny nose or sore throat. SKIN: No rash or itching, lesions, wounds. CARDIOVASCULAR: No chest pain, chest pressure or chest discomfort, palpitations, edema, orthopnea, syncopal events. RESPIRATORY: No shortness of breath, cough or sputum, wheezing, hemoptysis. GASTROINTESTINAL: + anorexia, nausea, vomiting, diarrhea, abdominal pain, melena. Previous to this intermittent constipation episodes. No BRBPR. GENITOURINARY: No dysuria, frequency, urgency or retention. NEUROLOGICAL: No headache, dizziness, syncope, paralysis, ataxia, numbness or tingling in the extremities, focal weakness, change in bowel or bladder control, seizure. MUSCULOSKELETAL: + muscle, back pain, joint pain or stiffness. HEMATOLOGIC: + Anemia, easy bleeding/bruising. LYMPHATICS: No enlarged nodes. No history of splenectomy. PSYCHIATRIC: + History of anxiety and depression. ENDOCRINOLOGIC: No reports of sweating, cold or heat intolerance. No polyuria or polydipsia. ALLERGIES: No history of asthma, hives, eczema or rhinitis. Vital Signs Vital Signs Vital Signs: 04/27/24 14:22 04/27/24 16:03 04/27/24 17:42 Temperature 97.9 F Temperature Source Oral Pulse Rate 106 H 101 H 102 H Respiratory Rate 18 18 15 Blood Pressure 118/46 L 105/54 L 149/54 H Blood Pressure Mean 70 71 85 Pulse Ox 97 95 Oxygen Delivery Method Room Air 04/27/24 19:00 Temperature Temperature Source Pulse Rate 102 H Respiratory Rate 18 Blood Pressure 123/74 H Blood Pressure Mean 90 Pulse Ox 95 Oxygen Delivery Method Weight Weight: 135 lb 9.6 oz Body Mass Index (BMI) 26.4 Physical Exam Narrative Physical Examination: General: Awake, alert, oriented x 3 and cooperative, seated upright in the ED bed, fatigued, ill-appearing. Skin: Normal color, normal turgor, no icterus, no cyanosis except occasional stage ecchymoses, abrasion HEENT: AT/NC, EOMI, PERRLA, moderately dry MM, no carotid bruits or JVD noted. Lungs: Mildly diminished, greater bases, proper effort, no rales, ronchi or wheezing. Heart: Mildly tachycardic with regular rhythm; no gallop, rub audible. Abdomen: Soft, discomfort to the left lower quadrant with palpation, nondistended, mildly hyperactive BS, no appreciated HSM. Extremities: No cyanosis, no clubbing, mild ankle not markedly pitting edema. Neurological: Patient awake, alert, oriented as noted, cognitive function intact; pupils equally reactive to light and accommodation, cranial nerves gross normal, moving all 4 extremities, no focal deficits, strength moderately to severely globally decreased secondary to acute presentation. Psychiatric: Affect appears fatigued, ill-appearing, no acute evidence of depressive or anxiety feelings but does have underlying history. Results Lab / Micro Data 04/27/24 16:00 04/27/24 16:00 Labs: Laboratory Results - last 24 hr 04/27/24 15:14: Urine Color Yellow, Urine Clarity Sl. Cloudy, Urine pH 6.0, Ur Specific Soldier 1.010, Urine Protein 15 H, Urine Glucose (UA) Normal, Urine Ketones Negative, Urine Occult Blood 10 H, Urine Nitrite Negative, Urine Bilirubin Negative, Urine Urobilinogen Normal, Ur Leukocyte Esterase 500 H, Urine RBC 0 SEEN, Urine WBC 10-25 SEEN, Ur Squamous Epith Cells 0-5 SEEN, Ur Transition Epith Cell 0-5 SEEN, Urine Bacteria 1+, Urine Mucus 0 SEEN 04/27/24 16:00: WBC 20.9 H, RBC 2.95 L, Hgb 8.6 L, Hct 28.1 L, MCV 95.3, MCH 29.2, MCHC 30.6 L, RDW Std Deviation 51.3 H, RDW Coeff of Tia 14.7 H, Plt Count 410, MPV 9.6, Immature Gran % (Auto) 0.700, Neut % (Auto) 89.4 H, Lymph % (Auto) 3.8 L, [place] % (Auto) 5.9, Eos % (Auto) 0.0, Baso % (Auto) 0.2, Absolute Neuts (auto) 18.7 H, Absolute Lymphs (auto) 0.80 L, Nucleated RBC % 0, PT 15.7 H, INR 1.3, APTT 30.0, Sodium 133 L, Potassium 5.2 H, Chloride 105, Carbon Dioxide 20.0 L, Anion Gap 9, BUN 68 H, Creatinine 1.62 H, Estim Creat Clear Calc 22.32, Est GFR (MDRD) Af Amer 39 L, Est GFR (MDRD) Non-Af 32 L, BUN/Creatinine Ratio 42.0 H , Glucose 228 H, Lactic Acid 2.4 H*, Calcium 8.7, Total Bilirubin 0.20, AST 17, ALT 22, Alkaline Phosphatase 62, Total Protein 6.5, Albumin 3.0 L, Globulin 3.5, Albumin/Globulin Ratio 0.9, Lipase 44 Micro: Microbiology 04/27/24 16:00 Stool Stool Occult Blood (ADENIKE) - Final Occult Blood Positive Imaging Radiology Impression Abdomen/Pelvis CT 04/27/24 15:30 IMPRESSION: Mild focal acute diverticulitis of the descending colon. No evidence of drainable abscess or free air. Electronically Signed: Rosalio Ramos MD at 17:36 EDT , Assessment & Plan Assessment/Plan (1) Diverticulitis: PLAN: Plan The patient is an 83 y/o F w/ PMHx: RLS, COPD, Hx TIA, GERD w/ Hx GI bleed, Chronic anemia/Fe deficiency anemia, Anxiety and Depression, CKD stage III unclear subtype, PAD status post peripheral angioplasty, Diabetes mellitus type II w/ chronic neuropathy, Former tobacco use who presents to the [facility] ED on 04/27/24 with history of onset left lower abdominal quadrant pain which she noted upon awakening which did not improve and continued with onset of nausea with 1 bout of emesis with chronic history of intermittent constipation however she notes she had diarrhea on day of presentation which was very dark and black and foul-smelling with poor oral intake with no recent fevers or chills but given this presentation prompted daughter to bring her in for evaluation. #1. Acute Diverticulitis complicated by associated acute blood loss anemia on chronic anemia/Fe deficiency anemia, possibly secondary to component of acute diverticular bleed given diverticulitis presentation concurrently with associated lactic acidosis (technically patient is tachycardic with significant leukocytosis and lactic acidosis however she does not have endorgan damage only noted renal insufficiency/elevated creatinine thus not consistent with sepsis based on the sep guidelines): Admission hemoglobin 8.6, MCV 95.3, previous hemoglobin noted 09/22/23 hemoglobin 11.6 with as noted guaiac positive status in the setting of acute mild focal diverticulitis of the descending colon. Will admit to [facility] given stable vital signs, maintain on aggressive hydration, monitor I&Os, maintain NPO status w/ bowel rest, maintain on IV Zosyn, maintain on IV PPI, continue to cycle H&H's, will have as needed anti-emetics and pain regimen, will request gastroenterology involvement to be cautious, type and screen will be initiated. Continue iron supplementation. #2. Acute Renal Insufficiency/Elevated Creatinine on Chronic Kidney Disease Stage III, unclear subtype based on GFR trend likely secondary to #1, poor intake, dehydration: Admission BUN/Cr 68/1.62, GFR 32, baseline renal function previous 09/20/2023 creatinine 1.28, repeat BMP in AM. #2. Hyponatremia, mild, suspected hypovolemic component given #1: Admission sodium 133, chloride 105, will continue to just the hydration and repeat CMP in AM. #3. Hyperkalemia, mild: Likely associate with #1, admission potassium 5.2, given need for hydration ongoing we will continue to monitor at this point and repeat CMP in the a.m. but not markedly elevated. #4. Hypertension: Will cautiously continue patient diltiazem, clonidine cautiously, holding lisinopril given renal insufficiency, add back once appropriate, as needed IV hydralazine in the interim. #5. Chronic COPD: Will temporally hold home inhalers in the interim maintain on ATC budesonide therapy, PRN albuterol, HOB, IS parameters. #6. Diabetes mellitus type II with chronic neuropathy: Hold oral home regimen, hold Trulicity, given presentation as noted above maintaining n.p.o. status with accu checks w/ ISS. #7. PAD, carotid disease: Status post previous peripheral angioplasty, unfortunately given presentation will temporally hold Eliquis and Plavix, GI evaluation pending as noted, will continue hypertensive regimen adjustments as noted, does not appear to be on statin therapy with no allergy listed but clarifying, continue diabetic regimen with adjustments as noted. #8. History TIA: As noted above temporarily holding Eliquis and Plavix, continue hypertensive regimen with adjustments as noted, continue diabetic regimen with adjustments as noted, not on statin therapy with no allergy listed but clarifying. #9. Anxiety and depression: We will continue patient home duloxetine regimen. #10. Restless leg syndrome: Per current list does not appear to be on regimen, clarifying, add if appropriate. #11. GERD with previous history of GI bleed: Complicates presentation as noted as history of previous, will maintain on IV PPI as noted above. #12. Former tobacco use: Encourage continued tobacco cessation. #13. DVT prophylaxis: SCDs. #14. CODE status: Patient HCPOAs are her 3 children and living will is currently in place. Discussed CODE status at length including difference between FULL code, DNR-CCA and DNR-CC status. Following discussions about the differences in these status, requested Full Code status. Advanced Care Planning Face to Face Time: 16 minutes. Charges/Coding Visit Charges Inpatient E&M: 19996 Init Hosp L3 Procedures Hospitalists Procedures: 56136 Advncd Care Plan 30 Min
[2024-04-27] MEDS: Piperacil/Tazobactam 3.375 GM in 0.9% Normal Saline (50mL MB+) 50 ML IV (19:58)
[2024-04-27 19:59] VITALS: BP 108/58; PULSE 95; RESP 18; TEMP 37.6; O2SAT 95
[2024-04-27 20:10] LABS: Reflex Lactate? Y
[2024-04-27 20:55] VITALS: BMI 25.0
[2024-04-27 20:57] LABS: Magnesium 2.5 mg/dL (1.6-2.6)
[2024-04-27 21:03] VITALS: BP 145/46; PULSE 79; RESP 17; TEMP 36.6; O2SAT 93
[2024-04-27] MEDS: 0.9% Normal Saline (1000mL) 1,000 ML 100 ML IV (21:10)
[2024-04-27 21:38] LABS: Lactic Acid 1.5 mmol/L (0.4-1.9)
[2024-04-27] MEDS: cloNIDine HCl 0.2 MG Tablet PO (21:43)
[2024-04-27] MEDS: Pantoprazole Sodium 80 MG in 0.9% Normal Saline (100mL Bag) 80 ML 10 MG CONT INF (21:43)
[2024-04-27] MEDS: DULoxetine Hcl 30 MG Capsule PO (21:43)
--- NOTE | 2024-04-27 23:18 | EX.PCM.CON.G ---
HPI Consult Data Date of Consult: 04/27/24 HPI Narrative Reason for Consultation: GI bleed HPI Narrative: ANSON CAPPS, is a 83 F who presents with abdominal pain and lower GI bleed. She has a past medical history of COPD, Hx TIA, GERD w/ Hx GI bleed, Chronic anemia/Fe deficiency anemia, PAD status post peripheral angioplasty, Diabetes mellitus type II w/ chronic neuropathy, Former tobacco use who presents to the [facility] ED on 04/27/24 with history of onset left lower abdominal quadrant pain. She noted upon awakening which did not improve and continued with onset of nausea with 1 bout of emesis with chronic history of intermittent constipation however she notes she had diarrhea on day of presentation which was very dark and black and foul-smelling with poor oral intake with no recent fevers or chills but given this presentation prompted daughter to bring her in for evaluation. Patient notes initially her pain was a 6 out of 10 in severity decreasing down to 4 out of 10 in severity and following ED interventions upon hospitalist evaluation reported at 1 out of 10 in severity. She notes pain is primarily present when she is moves or with palpation of the left lower quadrant now. Workup in the ED included T97.9, heart rate 106, BP 118/46, respiratory rate 18, 97% on room air with most recent repeat vitals heart rate 102, BP 149/54, respiratory rate 15, 95% on room air CBC with WBC 20.9, hemoglobin 8.6, MCV 95.3, platelet 410 with left shift and lymphopenia, coags with PT 15.7 otherwise not marked appearing CMP with sodium 133, potassium 5.2, chloride 105, carbon oxide 20, anion gap 9, BUN/creatinine 68/1.62, GFR 32, glucose 228, lactic acid 2.4, lipase 44, hepatic profile not marked appearing urinalysis with cloudy appearing urine, specific cavity 1.015, protein 15, ketone negative, glucose normal, occult blood 10, urine nitrite negative, leukocyte esterase 500, urine WBCs 10-25 with 1+ urine bacteria, fecal occult blood positive CT abdomen and pelvis with mild focal acute diverticulitis of the descending colon with no evidence of any drainable abscess or free air. In the ED patient ministered 1 L normal saline, morphine 2 mg IV x 1, Zofran 4 mg IV x 1 as well as IV Zosyn. [facility] Medical History Alcohol abuse Kidney disease Atrial fibrillation Hypertension TIA (transient ischemic attack) Primary osteoarthritis, right shoulder Right shoulder pain Wears glasses Wears dentures Alcohol use Diabetes Ambulates with cane Arthritis Restless legs Vaso vagal episode Dietary restriction COPD (chronic obstructive pulmonary disease) Former smoker Leg cramps PVD (peripheral vascular disease) History of edema History of stress test Cardiology follow-up encounter Neuropathy Iron deficiency History of TIA (transient ischemic attack) GERD (gastroesophageal reflux disease) GI bleed Depression Anxiety CKD (chronic kidney disease) Diabetes mellitus type II, controlled Hyperlipidemia Stage 3 severe COPD by GOLD classification Essential (primary) hypertension PAD (peripheral artery disease) Preoperative cardiovascular examination Nicotine dependence Abnormal electrocardiogram Bilateral carotid bruits Long-term use of high-risk medication COPD (chronic obstructive pulmonary disease) COPD with acute exacerbation Dyspnea Home Medications ?Medication ?Instructions ?Recorded ?Last Taken ?Type albuterol sulfate 2.5 mg/3 mL 2.5 mg inhalation Q4H PRN PRN COPD 03/25/16 Unknown History (0.083 %) solution for nebulization ascorbic acid (vitamin C) 500 mg 500 mg PO DAILY 11/28/22 10/28/23 History capsule cholecalciferol (vitamin D3) 10 10 mcg PO DAILY 11/28/22 10/28/23 History mcg (400 unit) capsule clopidogrel 75 mg tablet 75 mg PO DAILY 04/30/23 09/24/23 History glipizide 2.5 mg tablet, extended 2.5 mg PO DAILY 09/19/23 10/28/23 History release 24 hr lisinopril 5 mg tablet 5 mg PO DAILY 09/19/23 10/29/23 History pantoprazole 40 mg tablet,delayed 40 mg PO DAILY 09/19/23 10/29/23 History release albuterol sulfate 90 mcg/actuation 2 inh inhalation Q4H PRN COPD #18 11/04/23 Unknown Rx aerosol inhaler grams fluticasone 250 mcg-salmeterol 50 1 inh inhalation BID #60 ea 11/04/23 Unknown Rx mcg/dose blistr powdr for inhalation apixaban 2.5 mg tablet (Eliquis) 2.5 mg PO Q12H 03/18/24 Unknown History clonidine HCl 0.2 mg tablet 0.2 mg PO QHS 03/18/24 Unknown History diltiazem HCl 120 mg 240 mg PO DAILY 03/18/24 Unknown History capsule,extended release 24 hr dulaglutide 1.5 mg/0.5 mL 1.5 mg subcut .weekly 03/18/24 Unknown History subcutaneous pen injector (Trulicity) duloxetine 30 mg capsule,delayed 30 mg PO QHS 03/18/24 Unknown History release ferrous gluconate 324 mg (38 mg 324 mg PO DAILY 03/18/24 Unknown History iron) tablet Allergy/AdvReac Type Severity Reaction Status Date / Time ferrous sulfate Allergy Intermediate Other Verified 04/27/24 14:21 iron AdvReac Severe Low blood Verified 04/27/24 14:21 pressure gabapentin AdvReac Intermediate Pedal edema Verified 04/27/24 14:21 pregabalin (From Lyrica) AdvReac Intermediate Pedal edema Verified 04/27/24 14:21 codeine AdvReac Nausea Verified 04/27/24 14:21 Tetracyclines AdvReac Nausea Verified 04/27/24 14:21 Family History Sister CAD (coronary artery disease) Brother CAD (coronary artery disease) Mother Cancer Father , at age 70 secondary to GSW while hunting. No problems noted. Surgical History H/O shoulder surgery Hx of tubal ligation Hx of colonoscopy History of esophagogastroduodenoscopy (EGD) Right lower extremity angioplasty H/O foot surgery History of appendectomy History of total abdominal hysterectomy H/O tubal ligation H/O: hysterectomy H/O foot surgery History of appendectomy Social History household members: none Smoking Status: Former smoker quit date: 07/28/15 second hand exposure: Yes alcohol intake: never substance use type: does not use ROS ROS Narrative Admission Review of Systems: CONSTITUTIONAL: No weight loss, fever, chills, + weakness or fatigue. HEENT: Eyes: No visual loss, blurred vision, double vision or yellow sclerae. Ears, Nose, Throat: No hearing loss, sneezing, congestion, runny nose or sore throat. SKIN: No rash or itching, lesions, wounds. CARDIOVASCULAR: No chest pain, chest pressure or chest discomfort, palpitations, edema, orthopnea, syncopal events. RESPIRATORY: No shortness of breath, cough or sputum, wheezing, hemoptysis. GASTROINTESTINAL: + anorexia, nausea, vomiting, diarrhea, abdominal pain, melena. Previous to this intermittent constipation episodes. No BRBPR. GENITOURINARY: No dysuria, frequency, urgency or retention. NEUROLOGICAL: No headache, dizziness, syncope, paralysis, ataxia, numbness or tingling in the extremities, focal weakness, change in bowel or bladder control, seizure. MUSCULOSKELETAL: + muscle, back pain, joint pain or stiffness. HEMATOLOGIC: + Anemia, easy bleeding/bruising. LYMPHATICS: No enlarged nodes. No history of splenectomy. PSYCHIATRIC: + History of anxiety and depression. ENDOCRINOLOGIC: No reports of sweating, cold or heat intolerance. No polyuria or polydipsia. ALLERGIES: No history of asthma, hives, eczema or rhinitis. Physical Exam Narrative GENERAL: cooperative HEENT: Atraumatic; normocephalic EYES; Anicteric, Normal Conjunctiva NECK; supple, normal thyroid, RESPIRATORY: Diminished to auscultation CARDIOVASCULAR: Regular S1 S2, GI: soft, normoactive bowel sounds, LLQ tenderness : No Renal angle tenderness; EXTREMITIES: No edema, no clubbing, MUSCULOSKELETAL: no muscle wasting NEURO: Awake; no lateralizing signs. SKIN: No Rash PSYCH; Flat affect Lab / Micro Data 04/28/24 14:27 04/28/24 03:55 Labs: Laboratory Results - last 24 hr 04/27/24 15:14: Urine Color Yellow, Urine Clarity Sl. Cloudy, Urine pH 6.0, Ur Specific [place] 1.010, Urine Protein 15 H, Urine Glucose (UA) Normal, Urine Ketones Negative, Urine Occult Blood 10 H, Urine Nitrite Negative, Urine Bilirubin Negative, Urine Urobilinogen Normal, Ur Leukocyte Esterase 500 H, Urine RBC 0 SEEN, Urine WBC 10-25 SEEN, Ur Squamous Epith Cells 0-5 SEEN, Ur Transition Epith Cell 0-5 SEEN, Urine Bacteria 1+, Urine Mucus 0 SEEN 04/27/24 16:00: WBC 20.9 H, RBC 2.95 L, Hgb 8.6 L, Hct 28.1 L, MCV 95.3, MCH 29.2, MCHC 30.6 L, RDW Std Deviation 51.3 H, RDW Coeff of Tia 14.7 H, Plt Count 410, MPV 9.6, Immature Gran % (Auto) 0.700, Neut % (Auto) 89.4 H, Lymph % (Auto) 3.8 L, [place] % (Auto) 5.9, Eos % (Auto) 0.0, Baso % (Auto) 0.2, Absolute Neuts (auto) 18.7 H, Absolute Lymphs (auto) 0.80 L, Nucleated RBC % 0, PT 15.7 H, INR 1.3, APTT 30.0, Sodium 133 L, Potassium 5.2 H, Chloride 105, Carbon Dioxide 20.0 L, Anion Gap 9, BUN 68 H, Creatinine 1.62 H, Estim Creat Clear Calc 22.32, Est GFR (MDRD) Af Amer 39 L, Est GFR (MDRD) Non-Af 32 L, BUN/Creatinine Ratio 42.0 H, Glucose 228 H, Lactic Acid 2.4 H*, Calcium 8.7, Magnesium 2.5, Total Bilirubin 0.20, AST 17, ALT 22, Alkaline Phosphatase 62, Total Protein 6.5, Albumin 3.0 L, Globulin 3.5, Albumin/Globulin Ratio 0.9, Lipase 44 04/27/24 21:01: Lactic Acid 1.5, Blood Type AB POSITIVE, Antibody Screen NEGATIVE, Crossmatch See Detail 04/27/24 21:42: POC Glucose 110 H 04/27/24 23:55: Hgb 6.9 L, Hct 22.3 L 04/28/24 03:55: WBC 11.3 H, RBC 2.27 L, Hgb 6.5 L, Hct 21.6 L, MCV 95.2, MCH 28.6, MCHC 30.1 L, RDW Std Deviation 51.1 H, RDW Coeff of Tia 14.9 H, Plt Count 326, MPV 9.6, Immature Gran % (Auto) 0.500, Neut % (Auto) 80.3 H, Lymph % (Auto) 12.4 L, [place] % (Auto) 6.1, Eos % (Auto) 0.3, Baso % (Auto) 0.4, Absolute Neuts (auto) 9.1 H, Absolute Lymphs (auto) 1.40, Nucleated RBC % 0, Sodium 139, Potassium 4.7, Chloride 114 H, Carbon Dioxide 21.0, Anion Gap 4 L, BUN 55 H, Creatinine 1.51 H, Estim Creat Clear Calc 23.31, Est GFR (MDRD) Af Amer 43 L, Est GFR (MDRD) Non-Af 35 L, BUN/Creatinine Ratio 36.4 H, Glucose 137 H, Calcium 7.9 L, Total Bilirubin 0.20, AST 15, ALT 14, Alkaline Phosphatase 49, Total Protein 5.2 L, Albumin 2.5 L, Globulin 2.7, Albumin/Globulin Ratio 0.9 04/28/24 04:06: POC Glucose 143 H 04/28/24 09:27: POC Glucose 139 H 04/28/24 09:57: Hgb 7.8 L, Hct 25.5 L 04/28/24 14:27: Hgb 9.6 L, Hct 30.4 L Micro: Microbiology 04/27/24 16:00 Stool Stool Occult Blood (ADENIKE) - Final Occult Blood Positive Imaging Radiology Impression Abdomen/Pelvis CT 04/27/24 15:30 IMPRESSION: Mild focal acute diverticulitis of the descending colon. No evidence of drainable abscess or free air. Electronically Signed: Rosalio Ramos MD at 17:36 EDT , Assessment & Plan Assessment/Plan (1) Diverticulitis: PLAN: Plan 83 y/o F w/ Hx GI bleed, PAD status post peripheral angioplasty, Diabetes mellitus type II w/ chronic neuropathy, Former tobacco use who presents to the [facility] ED on 04/27/24 with history of onset left lower abdominal quadrant pain and lower GI bleeding. Which she noted upon awakening which did not improve and continued with onset of nausea with 1 bout of emesis with chronic history of intermittent constipation. However, she notes she had diarrhea on day of presentation which was very dark and black and foul-smelling with poor oral intake with no recent fevers or chills but given this presentation prompted daughter to bring her in for evaluation. Acute Diverticulitis complicated by associated acute blood loss anemia possibly secondary to ischemic colitis. She had a significant drop in her hemoglobin. It also could be upper GI bleed with rapid transit. Therefore we will have her undergo an upper endoscopy to evaluate upper GI tract and possibly colonoscopy. Acute Renal Insufficiency/Elevated Creatinine on Chronic Kidney Disease Stage III, unclear subtype based on GFR trend likely secondary to #1, poor intake, dehydration: GERD with previous history of GI bleed: Complicates presentation as noted as history of previous, will maintain on IV PPI as noted above.
[2024-04-27 23:29] LABS: Bedside Glucose 110 mg/dL (74-106)
[2024-04-28] VITALS (23 sets, daily range): BP systolic 77–137; BP diastolic 37–89; PULSE 62–112; RESP 16–18; TEMP 36.6–37.6; O2SAT 94–98; BMI 25.4
[2024-04-28 00:35] LABS: Hematocrit 22.3 % (37-47); Hemoglobin 6.9 g/dL (12.0-15.0)
[2024-04-28 04:21] LABS: Absolute Neutrophil Count 9.1 X10^3/uL (2.0-7.7); Basophil# 0.04 X10^3/uL; Basophil% 0.4 % (0-1); Eosinophil# 0.03 X10^3/uL; Eosinophils% 0.3 % (0-5); Hematocrit 21.6 % (37-47); Hemoglobin 6.5 g/dL (12.0-15.0); Lymphocyte % 12.4 % (19-41); Mean Corp Hgb Conc 30.1 g/dL (32-36); Mean Corpuscular Hgb 28.6 pg (27.0-32.0); Mean Corpuscular Volume 95.2 fL (81-99); Mean Platelet Vol. 9.6 fl (6.2-12.0); Monocyte# 0.69 X10^3/uL; Monocyte% 6.1 % (0-10); NRBC Flagged by Analyzer 0 % (0-5); Neutrophil # 9.08 X10^3/uL (2.7-7.7); Neutrophil % 80.3 % (47-70); Platelet Count 326 K/mm3 (150-450); RBC Distribution Width CV 14.9 % (11.6-14.6); RBC Distribution Width SD 51.1 fl (35.1-43.9); Red Blood Count 2.27 M/mm3 (4.2-5.4); White Blood Count 11.3 K/mm3 (4.4-11.0)
[2024-04-28 05:03] LABS: ALB/GLOB Ratio 0.9 RATIO (0.9-2.4); AST(SGOT) 15 U/L (15-37); Alanine Aminotransfer ALT/SGPT 14 U/L (13-56); Albumin, Serum 2.5 g/dL (3.2-5.0); Alkaline Phosphatase 49 U/L (45-117); Anion Gap 4 (5-15); BUN 55 mg/dL (7-18); BUN/Creat Ratio 36.4 RATIO (10-20); Calcium,Total 7.9 mg/dL (8.5-10.1); Chloride 114 mmol/L (98-107); Creatinine, Serum 1.51 mg/dL (0.55-1.02); EST Glomerular Filtration Rate 35 mL/min (>60); Est Glom Filt Rate - Afr Amer 43 mL/min (>60); Estimated Creatinine Clearance 23.31 ml/min; Globulin 2.7 g/dL (2.2-4.2); Glucose 137 mg/dL (74-106); Potassium 4.7 mmol/L (3.5-5.1); Protein, Total 5.2 g/dL (6.4-8.2); Sodium Level 139 mmol/L (136-145)
[2024-04-28] MEDS: Piperacil/Tazobactam 3.375 GM in 0.9% Normal Saline (50mL MB+) 50 ML IV ×3 (05:55→23:10)
[2024-04-28] MEDS: Pantoprazole Sodium 80 MG in 0.9% Normal Saline (100mL Bag) 80 ML 10 MG CONT INF ×2 (05:56→18:50)
[2024-04-28] MEDS: 0.9% Normal Saline (1000mL) 1,000 ML 100 ML IV (05:56)
[2024-04-28 06:29] LABS: Bedside Glucose 143 mg/dL (74-106)
--- NOTE | 2024-04-28 06:29 | PCM.HOSP.N ---
Hospitalist Note Hgb most recent 6.5, 2 u PRBC ordered with repeat HH following.
[2024-04-28] MEDS: Budesonide Respules 0.5 MG/2 ML AMPUL.NEB. INHALATION ×2 (07:15→20:35)
--- NOTE | 2024-04-28 08:33 | PCM.PN.HOSP ---
Reason for Visit Reason for Visit: Diagnoses Diverticulitis of intestine, part unspecified, without perforation or abscess without bleeding (04/27/24) Subjective Subjective atient is an 83-year-old lady presented with lightheadedness with associated lower GI bleed. CT of the abdomen and pelvis demonstrated mild focal acute diverticulitis of the descending colon. No evidence of drainable abscess or free air. Admitted to regular nursing floor for further management Objective Data Objective Data Vital Signs: Vital Signs Temp Pulse Resp BP Pulse Ox O2 Del Method 99 F 100 16 77/37 L 97 Room Air 04/28/24 08:08 04/28/24 08:08 04/28/24 08:08 04/28/24 08:08 04/28/24 08:08 04/28/24 08:08 Oxygen Delivery Method Room Air Weight: 59 kg Body Mass Index (BMI) 25.4 Intake & Output: Intake and Output for Last 24 Hours 04/26/24 04/27/24 04/28/24 23:59 23:59 23:59 Intake Total 1050 / 1050 1212.17 / 1212.17 Balance 1050 / 1050 1212.17 / 1212.17 Lab / Micro Data 04/28/24 09:57 04/28/24 03:55 Labs: Laboratory Results - last 24 hr 04/27/24 15:14: Urine Color Yellow, Urine Clarity Sl. Cloudy, Urine pH 6.0, Ur Specific [place] 1.010, Urine Protein 15 H, Urine Glucose (UA) Normal, Urine Ketones Negative, Urine Occult Blood 10 H, Urine Nitrite Negative, Urine Bilirubin Negative, Urine Urobilinogen Normal, Ur Leukocyte Esterase 500 H, Urine RBC 0 SEEN, Urine WBC 10-25 SEEN, Ur Squamous Epith Cells 0-5 SEEN, Ur Transition Epith Cell 0-5 SEEN, Urine Bacteria 1+, Urine Mucus 0 SEEN 04/27/24 16:00: WBC 20.9 H, RBC 2.95 L, Hgb 8.6 L, Hct 28.1 L, MCV 95.3, MCH 29.2, MCHC 30.6 L, RDW Std Deviation 51.3 H, RDW Coeff of Tia 14.7 H, Plt Count 410, MPV 9.6, Immature Gran % (Auto) 0.700, Neut % (Auto) 89.4 H, Lymph % (Auto) 3.8 L, [place] % (Auto) 5.9, Eos % (Auto) 0.0, Baso % (Auto) 0.2, Absolute Neuts (auto) 18.7 H, Absolute Lymphs (auto) 0.80 L, Nucleated RBC % 0, PT 15.7 H, INR 1.3, APTT 30.0, Sodium 133 L, Potassium 5.2 H, Chloride 105, Carbon Dioxide 20.0 L, Anion Gap 9, BUN 68 H, Creatinine 1.62 H, Estim Creat Clear Calc 22.32, Est GFR (MDRD) Af Amer 39 L, Est GFR (MDRD) Non-Af 32 L, BUN/Creatinine Ratio 42.0 H, Glucose 228 H, Lactic Acid 2.4 H*, Calcium 8.7, Magnesium 2.5, Total Bilirubin 0.20, AST 17, ALT 22, Alkaline Phosphatase 62, Total Protein 6.5, Albumin 3.0 L, Globulin 3.5, Albumin/Globulin Ratio 0.9, Lipase 44 04/27/24 21:01: Lactic Acid 1.5, Blood Type AB POSITIVE, Antibody Screen NEGATIVE, Crossmatch See Detail 04/27/24 21:42: POC Glucose 110 H 04/27/24 23:55: Hgb 6.9 L, Hct 22.3 L 04/28/24 03:55: WBC 11.3 H, RBC 2.27 L, Hgb 6.5 L, Hct 21.6 L, MCV 95.2, MCH 28.6, MCHC 30.1 L, RDW Std Deviation 51.1 H, RDW Coeff of Tia 14.9 H, Plt Count 326, MPV 9.6, Immature Gran % (Auto) 0.500, Neut % (Auto) 80.3 H, Lymph % (Auto) 12.4 L, [place] % (Auto) 6.1, Eos % (Auto) 0.3, Baso % (Auto) 0.4, Absolute Neuts (auto) 9.1 H, Absolute Lymphs (auto) 1.40, Nucleated RBC % 0, Sodium 139, Potassium 4.7, Chloride 114 H, Carbon Dioxide 21.0, Anion Gap 4 L, BUN 55 H, Creatinine 1.51 H, Estim Creat Clear Calc 23.31, Est GFR (MDRD) Af Amer 43 L, Est GFR (MDRD) Non-Af 35 L, BUN/Creatinine Ratio 36.4 H, Glucose 137 H, Calcium 7.9 L, Total Bilirubin 0.20, AST 15, ALT 14, Alkaline Phosphatase 49, Total Protein 5.2 L, Albumin 2.5 L, Globulin 2.7, Albumin/Globulin Ratio 0.9 04/28/24 04:06: POC Glucose 143 H Micro: Microbiology 04/27/24 16:00 Stool Stool Occult Blood (ADENIKE) - Final Occult Blood Positive Radiography Diagnostic Testing: Radiology Impression Abdomen/Pelvis CT 04/27/24 15:30 IMPRESSION: Mild focal acute diverticulitis of the descending colon. No evidence of drainable abscess or free air. Electronically Signed: Rosalio Ramos MD at 17:36 EDT , Physical Exam Narrative GENERAL: cooperative HEENT: Atraumatic; normocephalic EYES; Anicteric, Normal Conjunctiva NECK; supple, normal thyroid, RESPIRATORY: Diminished to auscultation CARDIOVASCULAR: Regular S1 S2, GI: soft, normoactive bowel sounds, LLQ tenderness : No Renal angle tenderness; EXTREMITIES: No edema, no clubbing, MUSCULOSKELETAL: no muscle wasting NEURO: Awake; no lateralizing signs. SKIN: No Rash PSYCH; Flat affect Assessment & Plan Assessment/Plan (1) Diverticulitis: PLAN: Plan Patient is an 83-year-old lady presented with lightheadedness with associated lower GI bleed. CT of the abdomen and pelvis demonstrated mild focal acute diverticulitis of the descending colon. No evidence of drainable abscess or free air. Admitted to regular nursing floor for further management 1. Acute diverticulitis ? Patient started on broad-spectrum antibiotic therapy 2. Acute blood loss anemia ? Secondary to diverticular bleed complicated by use of systemic anticoagulation with apixaban monitoring H&H and transfuse if patient becomes symptomatic or hemoglobin falls below 7. With patient hemoglobin dropping from 8.6 on admission to 6.5 this a.m. and order was given for patient to be transfused 1 unit PRBC. Consultation was placed to GI 3. Acute kidney injury ? Superimposed on chronic kidney disease stage III. Baseline creatinine 1.8 creatinine on admission was 1.62 started on IV hydration with subsequent monitoring of electrolyte 4. Hypovolemic hyponatremia ? Patient be resuscitated with IV fluid with subsequent monitoring of electrolytes ordered 5. Essential hypertension ? Antihypertensives held given patient relatively low blood pressure 6. COPD ? Currently not in exacerbation aerosol treatment as needed 7. Diabetes mellitus type II -patient's oral hypoglycemics held. Placed on long acting insulin, Accu-Cheks a.c. and at bedtime and covered with sliding scale insulin 8.Acute cystitis ? Present on admission started on broad-spectrum antibiotic therapy 9. Mild hyperkalemia ? Potassium on admission was 5.2; Down to 4.7 this a.m. 10. History of TIAs ? Patient is on clopidogrel 7. Depression with anxiety ? Patient is on duloxetine 12. GERD ? Patient is on PPI 13. Paroxysmal A-fib ? Rate controlled on diltiazem. On systemic anticoagulation with apixaban 14. Peripheral arterial disease ? With previous stent placement in lower extremities patient is on clopidogrel currently being held 15. DVT prophylaxis ? Patient is on apixaban currently being held given her presentation bilateral SCDs NCCT Time spent in the patient's overall evaluation,decision-making process, review of diagnostic data, adjustment of management, discussion with other providers, nursing nursing and ancillary staff involved in patient's care documentation, 50 Minutes Charges/Coding Visit Charges Inpatient E&M: 29511 [facility] L3
[2024-04-28] MEDS: FLU VACCINE **HIGH DOSE** TV 24-25 180 MCG/0.5 ML SYRINGE IM (09:19)
[2024-04-28] MEDS: dilTIAZem CD 240 MG Capsule PO (09:19)
[2024-04-28 09:45] LABS: Bedside Glucose 139 mg/dL (74-106)
[2024-04-28 10:13] LABS: Hematocrit 25.5 % (37-47); Hemoglobin 7.8 g/dL (12.0-15.0)
--- NOTE | 2024-04-28 10:48 | CASEMGMT ---
OTONIEL CROWLEY Assessment: Face to Face with pt for initial transition planning/care coordination assessment. OTONIEL CROWLEY introduced self and role at [facility], pt voices understanding and consents to assessment. Pt is A&O x4 and answers all questions appropriately at this time. Pt dtr present in room and agreeable to assessment with dtr present. Care providers, pharmacy, and demographics verified/updated. Admitting Dx: acute diverticulitis, GIB, ABLA Strata Score: 3 PCP:Jeff Suresh NP Specialists:Ameya, GI; Daija vasc; Kate, ortho; Meliton pulm; Reilly, cardio; Sudhir nephro; Derek, pod Preferred Pharmacy: [facility] Insurance: My Care [facility], [facility] Prescription Benefit: yes LNOK: Kath Lofton, arjunr; Jaqcuelin Rodriguez dtr Living Arrangements: Pt lives alone in an apt with an elevator to enter. Pt reports she is I in ADLs. Pt denies concerns at home. Transportation: Pt dtr provides transportation or [place] or [employer] Ride DME:shower chair, standard walker, w/c, cane, rollator, BGM with sufficient supply of strips and lancets HHC/SNF: Pt has had [facility] HHC in the past and has been to [facility]. Pt states no concerns with going home at time of dc. 6 cl=24. Pt states no further concerns/needs. CM to follow. Advised pt to ask CM if any further question/concerns/needs arise, voices understanding. Pt Goal: Home Plan: Home Re [place] CM
--- NOTE | 2024-04-28 14:27 | NURSING ---
pt to endo
[2024-04-28 14:35] LABS: Hematocrit 30.4 % (37-47); Hemoglobin 9.6 g/dL (12.0-15.0)
[2024-04-28] MEDS: Lactated Ringers 1,000 ML 15 ML IV (14:46)
--- NOTE | 2024-04-28 15:01 | PCM.PRE.AN2 ---
ASA Classification* ASA Classification ASA Classification: 3 Assessment & Plan Anesthesia* Anesthesia Assessment Anesthesia Assessment: Discussed sedation and/or anesthesia options, risks, benefits, and alternatives with patient/parents/legal guardian/POA. Questions invited. The patient/parents/legal guardian/POA seems to understand and agrees to proceed with anesthesia plan. Reviewed the physical assessment, medical history, allergy history and patient home medications list prior to surgery/procedure/anesthetic and documented any changes. Performed airway and anesthesia risk assessments. Anesthesia Type Anesthesia Type: MAC Anesthesia Focused Assessment* Temperature: 99.1 F Pulse Rate: 91 Blood Pressure: 130/64 Respiratory Rate: 16 Pulse Ox: 96 Airway Assessment Mouth opens: >3 cm Mallampati Score: II Focused Labs Anesthesia Preop lab: CBC WBC 11.3 K/mm3 (4.4-11.0) H 04/28/24 03:55 RBC 2.27 M/mm3 (4.2-5.4) L 04/28/24 03:55 Hgb 9.6 g/dL (12.0-15.0) L 04/28/24 14:27 Hct 30.4 % (37-47) L 04/28/24 14:27 Plt Count 326 K/mm3 (150-450) 04/28/24 03:55 CHEMISTRY Potassium 4.7 mmol/L (3.5-5.1) 04/28/24 03:55 Sodium 139 mmol/L (136-145) 04/28/24 03:55 Magnesium 2.5 mg/dL (1.6-2.6) 04/27/24 16:00 BUN 55 mg/dL (7-18) H 04/28/24 03:55 Creatinine 1.51 mg/dL (0.55-1.02) H 04/28/24 03:55 Glucose 137 mg/dL (74-106) H 04/28/24 03:55 POC Glucose 139 mg/dL (74-106) H 04/28/24 09:27 COAG PT 15.7 SECONDS (11.7-14.9) H 04/27/24 16:00 Pre-Assessment Diagnosis/Proposed Procedure Planned Operative Procedure(s): EGD Anesthesia History 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 When Was Last Pacemaker Check QUESTION #4 FULL TEXT: You/Your Family Experience fever (hyperthermia) with Anesthesia Last Oral Intake Last Oral intake: Last Oral Intake NPO since 00:00 04/28/24 12:32 Meds taken in AM with sips of water? Meds patient instructed to see mar 04/28/24 12:32 take am of surgery PONV PONV - astronautical engineer: PONV - astronautical engineer Female HX of Motion Sickness HX of N/V After Surgery Non-Smoker Duration of Surgery greater than 60 minutes Number of Risk Factors PONV Score Height & Weight Height & Weight: Anesthesia: Height & Weight Height 5 ft 04/28/24 12:32 Weight: 59 kg 04/28/24 12:32 Body Mass Index (BMI) 25.4 04/28/24 12:32 Respiratory Assessment Respiratory Assessment - astronautical engineer: Respiratory Tract Infection Hx - astronautical engineer Hx Respiratory Tract Infection No 04/28/24 12:32 STOP Sleep Apnea STOP Sleep Apnea - astronautical engineer: STOP Sleep Apnea - astronautical engineer Hx Hypertension Yes: CONTROLLED WITH MED 04/27/24 20:58 Hx Sleep Apnea No 04/27/24 20:58 CPAP BIPAP Do you snore loudly (louder Yes 04/27/24 20:58 than talking or can be heard Do you often feel tired/ No 04/27/24 20:58 fatigued/ sleepy during daytime? Has anyone observed you stop No 04/27/24 20:58 breathing during sleep? STOP Results Positive 04/27/24 20:58 QUESTION #5 FULL TEXT : Do you snore loudly (louder than talking or can be heard through closed doors)? Tobacco Use History Tobacco Use History - astronautical engineer: Tobacco Use History - astronautical engineer Tobacco Use Smoking Status Former smoker 04/27/24 20:58 Hx Tobacco Use No 04/27/24 20:58 Years Smoking Packs Smoked per Day Smoking Cessation Date was No - quit smoking greater 04/27/24 20:58 within the last 15 years than 15 years ago Hx Smoking Cessation Date 07/28/15 04/27/24 20:58 Hx Smoking Cessation No 04/27/24 20:58 Counseling Hematologic Medial History Hematologic Hx - astronautical engineer: Hematologic Medical Hx - provider relations representative Hx of Blood Transfusion Yes 04/27/24 20:58 Hx of Transfusion in last 3 No 04/27/24 20:58 Months Date of Last Transfusion (if within last 3 months) Ever experience any problems No 04/27/24 20:58 with transfusion(s)? Specify any problems Hx of Preganancy in last 3 No 04/27/24 20:58 Months Nurse Filling Out Transfusion DREDICK 04/27/24 20:58 & Questions: Date: 04/27/24 04/27/24 20:58 Time: 20:59 04/27/24 20:58 Patient unable to answer at this time (ie. confused, unrespo /Reproduction History /Reproductive History - astronautical engineer: /Reproductive Hx- astronautical engineer Hx Now No 04/28/24 12:32 Gestational Age (in weeks): EDC: Hx Hx Para Hx Section SAB No 04/28/24 12:32 Active Medications Active Medications: Current Medications Generic Name Dose Route Start Last Admin Trade Name Freq PRN Reason Stop Dose Admin Acetaminophen 650 mg 04/27/24 20:52 Acetaminophen 325 Mg Tablet PO Q4H PRN PRN Fever, pain 1-05/06 Al Hydroxide/Mg Hydroxide 30 ml 04/27/24 20:52 Mag Hydrox/Al Hydrox/Simeth 30 Ml Udc PO Q6H PRN PRN Gastric Burning Albuterol Sulfate 2.5 mg 04/27/24 20:52 Albuterol 2.5 Mg/3 Ml Vial.Neb. INHALATION Q2H PRN PRN Dyspnea, wheezing Budesonide 0.5 mg 04/27/24 20:52 04/28/24 07:15 Budesonide Respules 0.5 Mg/2 Ml Ampul.Neb. INHALATION 0.5 mg BID.RT KHALIDA Administration Clonidine 0.2 mg 04/27/24 22:00 04/27/24 21:43 Clonidine Hcl 0.2 Mg Tablet PO 0.2 mg QHS KHALIDA Administration Protocol Diltiazem HCl 240 mg 04/28/24 10:00 04/28/24 09:19 Diltiazem Cd 240 Mg Capsule PO 240 mg DAILY KHALIDA Administration Protocol Duloxetine HCl 30 mg 04/27/24 22:00 04/27/24 21:43 Duloxetine Hcl 30 Mg Capsule PO 30 mg QHS KHALIDA Administration Ferrous Gluconate 325 mg 04/28/24 12:00 04/28/24 11:24 Ferrous Gluconate 324 Mg Tablet PO Not Given LUNCH KHALIDA Glucagon 1 mg 04/27/24 20:52 Glucagon 1 Mg/Ml Syringe IM X1 PRN HYPOGLYCEMIA Protocol Guaifenesin 20 ml 04/27/24 20:52 Guaifenesin 10 Ml Udc (200mg/10ml) PO Q4H PRN PRN COUGH Hydralazine HCl 10 mg 04/27/24 20:52 Hydralazine 20 Mg/Ml Vial IV Q4H PRN PRN SBP > 160 Protocol Pantoprazole Sodium 80 mg/ 100 mls @ 10 mls/hr 04/27/24 20:52 04/28/24 14:27 Sodium Chloride CONT INF 0 mls/hr Q10H KHALIDA Infusion Piperacillin Sod/Tazobactam 50 mls @ 12.5 mls/hr 04/28/24 06:00 04/28/24 14:27 Sod 3.375 gm/ Sodium Chloride IV 0 mls/hr Q8 KHALIDA Infusion Dextrose 250 mls @ 0 mls/hr 04/27/24 20:52 Dextrose 10%-Water IV .Q0M PRN HYPOGLYCEMIA Protocol As Directed Sodium Chloride 250 mls @ 15 mls/hr 04/27/24 20:56 IV .[id number] PRN Additional IVPB Infusion Sodium Chloride 250 mls @ 15 mls/hr 04/27/24 20:56 IV .[id number] PRN Saline Flush Lactated Ringer's 1,000 mls @ 15 mls/hr 04/28/24 14:45 04/28/24 14:46 IV 15 mls/hr .Q48H KHALIDA Administration Lactated Ringer's 1,000 mls @ 15 mls/hr 04/28/24 14:45 IV .Q48H KHALIDA Insulin Human Lispro 0 unit 04/27/24 20:52 04/28/24 09:27 Insulin Lispro 100 Unit/Ml Insuln.Pen SC Not Given Q6H KHALIDA Protocol Melatonin 3 mg 04/27/24 20:52 Melatonin 3 Mg Tablet PO QHS PRN PRN INSOMNIA Morphine Sulfate 2 mg 04/27/24 20:52 Morphine 2 Mg/Ml Syringe IV Q3H PRN PRN Pain Score 6-10 Ondansetron HCl 4 mg 04/27/24 20:52 Ondansetron 4 Mg/2 Ml Vial IV Q8H PRN PRN NAUSEA/VOMITING Oxycodone HCl 5 mg 04/27/24 20:52 Oxycodone 5 Mg Tablet PO Q4H PRN PRN Pain Score 4-10 Prochlorperazine Edisylate 5 mg 04/27/24 20:52 Prochlorperazine 10 Mg/2 Ml Vial IV Q4H PRN PRN Breakthrough nausea/vomiting Sodium Chloride 10 - 40 ml 04/27/24 20:56 0.9% Saline Lock 10 Ml Syringe IV UD PRN SALINE FLUSH PFSH Medical History Alcohol abuse Kidney disease Atrial fibrillation Hypertension TIA (transient ischemic attack) Primary osteoarthritis, right shoulder Right shoulder pain Wears glasses Wears dentures Alcohol use Diabetes Ambulates with cane Arthritis Restless legs Vaso vagal episode Dietary restriction COPD (chronic obstructive pulmonary disease) Former smoker Leg cramps PVD (peripheral vascular disease) History of edema History of stress test Cardiology follow-up encounter Neuropathy Iron deficiency History of TIA (transient ischemic attack) GERD (gastroesophageal reflux disease) GI bleed Depression Anxiety CKD (chronic kidney disease) Diabetes mellitus type II, controlled Hyperlipidemia Stage 3 severe COPD by GOLD classification Essential (primary) hypertension PAD (peripheral artery disease) Preoperative cardiovascular examination Nicotine dependence Abnormal electrocardiogram Bilateral carotid bruits Long-term use of high-risk medication COPD (chronic obstructive pulmonary disease) COPD with acute exacerbation Dyspnea Home Medications ?Medication ?Instructions ?Recorded ?Last Taken ?Type albuterol sulfate 2.5 mg/3 mL 2.5 mg inhalation Q4H PRN PRN COPD 03/25/16 Unknown History (0.083 %) solution for nebulization ascorbic acid (vitamin C) 500 mg 500 mg PO DAILY 11/28/22 10/28/23 History capsule cholecalciferol (vitamin D3) 10 10 mcg PO DAILY 11/28/22 10/28/23 History mcg (400 unit) capsule clopidogrel 75 mg tablet 75 mg PO DAILY 04/30/23 09/24/23 History glipizide 2.5 mg tablet, extended 2.5 mg PO DAILY 09/19/23 10/28/23 History release 24 hr lisinopril 5 mg tablet 5 mg PO DAILY 09/19/23 10/29/23 History pantoprazole 40 mg tablet,delayed 40 mg PO DAILY 09/19/23 10/29/23 History release albuterol sulfate 90 mcg/actuation 2 inh inhalation Q4H PRN COPD #18 11/04/23 Unknown Rx aerosol inhaler grams fluticasone 250 mcg-salmeterol 50 1 inh inhalation BID #60 ea 11/04/23 Unknown Rx mcg/dose blistr powdr for inhalation apixaban 2.5 mg tablet (Eliquis) 2.5 mg PO Q12H 03/18/24 Unknown History clonidine HCl 0.2 mg tablet 0.2 mg PO QHS 03/18/24 Unknown History diltiazem HCl 120 mg 240 mg PO DAILY 03/18/24 Unknown History capsule,extended release 24 hr dulaglutide 1.5 mg/0.5 mL 1.5 mg subcut .weekly 03/18/24 Unknown History subcutaneous pen injector (Trulicity) duloxetine 30 mg capsule,delayed 30 mg PO QHS 03/18/24 Unknown History release ferrous gluconate 324 mg (38 mg 324 mg PO DAILY 03/18/24 Unknown History iron) tablet Allergy/AdvReac Type Severity Reaction Status Date / Time ferrous sulfate Allergy Intermediate Other Verified 04/27/24 14:21 iron AdvReac Severe Low blood Verified 04/27/24 14:21 pressure gabapentin AdvReac Intermediate Pedal edema Verified 04/27/24 14:21 pregabalin (From Lyrica) AdvReac Intermediate Pedal edema Verified 04/27/24 14:21 codeine AdvReac Nausea Verified 04/27/24 14:21 Tetracyclines AdvReac Nausea Verified 04/27/24 14:21 Family History Sister CAD (coronary artery disease) Brother CAD (coronary artery disease) Mother Cancer Father , at age 70 secondary to GSW while hunting. No problems noted. Surgical History H/O shoulder surgery Hx of tubal ligation Hx of colonoscopy History of esophagogastroduodenoscopy (EGD) Right lower extremity angioplasty H/O foot surgery History of appendectomy History of total abdominal hysterectomy H/O tubal ligation H/O: hysterectomy H/O foot surgery History of appendectomy Social History household members: none Smoking Status: Former smoker quit date: 07/28/15 second hand exposure: Yes alcohol intake: never substance use type: does not use Review of Systems (Anesthesia) ROS Narrative System reviewed and no additional complaints, except as documented.
--- NOTE | 2024-04-28 16:10 | IMM_PTH ---
PATIENT: ANSON CAPPS LOC: MS3 U#:[id number] AGE/SX: 83/F ROOM: MO313 RE04/27/[address]: Dr. Kd Caldera MD : 1940 BED: 1 DIS: 04/29/2024 SPEC #: [id number] RECD: 04/29/24 10:17 STATUS: DARIAN REKarena #: [id number] MELISSA: 04/28/24 16:[address]: Ryan Hou DEPT: IMMUNOHISTOCHEMISTRY RECD BY: Ricardo Aguilar ENTERED: 04/29/24 10:18 SP TYPE: IMMUNO OTHR DR: MD Dr. Kd Turcios MD Ryan Baltes, FIREWORKS MAKER-C Tissues: B - Gastric mucous membrane Procedures: H Pylori (initial) PHYSICIAN & INSTITUTION [place] [id number] SPECIMEN INFORMATION: Tissue Source: B- Gastric body biopsy Clinical Info: GI bleed Specimen Number: [id number] CPT code: 31598 METHODOLOGY: Deparaffinized sections of prefer/formalin-fixed tissue or PAP/DQ stained slides are incubated with monoclonal/polyclonal antibodies/oligonucleotide probes. Localization is made via biotin free immunoperoxidase method. Appropriate controls are performed and reacted as expected. Results on target cell population are indicated in the following table: RESULTS: ANTIBODY / CLONE RESULT Block B H Pylori (polyclonal) negative These tests were developed and their performance characteristics determined by [facility]. They may not have been cleared or approved by the U.S. Food and Drug Administration. The FDA has determined that such clearance or approval is not necessary. The above immunohistochemical/dualISH markers are ordered and reviewed by the Pathologist. INTERPRETATION: B. Gastric body, biopsy: Negative for Helicobacter pylori organisms. 04/30/2024
--- NOTE | 2024-04-28 16:10 | EGD_PTH ---
PATIENT: ANSON CAPPS LOC: MS3 U#:[id number] AGE/SX: 83/F ROOM: MS313 RE04/27/[address]: Dr. Kd Caldera MD : 1940 BED: 1 DIS: 04/29/2024 SPEC #: [id number] RECD: 04/29/24 09:24 STATUS: DARIAN SALAZAR #: [id number] MELISSA: 04/28/24 16:[address]: Ryan Hou DEPT: SURGICAL PATHOLOGY RECD BY: Stephanie Pickard ENTERED: 04/29/24 10:46 SP TYPE: EGD BIOPSY OTHR DR: MD Dr. Kd Turcios MD Ryan Baltes, VACUUM CLEANER REPAIRER-C Tissues: A - Duodenum, NOS B - Gastric mucous membrane Procedures: Surgery Specimen Level IV Comments: @ Ordering doctor for SUIV edited from to @ polina HERZOG at 04/29/24 1204 @ Submitting doctor edited from to @ by ROSENDA at 04/29/24 1204 HEADER OPERATION: EGD with biopsy PRE-OP DIAGNOSIS: GI bleed TISSUE SUBMITTED: A- Duodenum biopsy, B- Gastric body biopsy MICROSCOPIC DIAGNOSIS A. Duodenum, biopsy: Fragments of duodenal mucosa with Stevo's gland hyperplasia and focal gastric metaplasia. B. Gastric body, biopsy: Fragments of gastric mucosa with focal ulceration, fibrinous exudation and acute and chronic inflammation. See comment. 04/30/2024 COMMENT B. The results of immunohistochemistry for Helicobacter pylori will be reported separately ([id number]). MICROSCOPIC DESCRIPTION Slides are reviewed. GROSS DESCRIPTION A. Received in fixative is one container labeled with the patient's name and designated Duodenum biopsy. The specimen consists of multiple irregular fragments of light gaming soft tissue that in aggregate measure 1.0 x 0.3 x 0.1 cm. The specimen is totally submitted in one cassette. B. Received in fixative is one container labeled with the patient's name and designated Gastric body biopsy. The specimen consists of multiple irregular fragments of light gaming soft tissue that in aggregate measure 0.6 x 0.5 x 0.1 cm. The specimen is totally submitted in one cassette. 04/29/2024 TC:2 CPT:69046j9
--- NOTE | 2024-04-28 16:24 | OP.EGD_ITS ---
Patient Name: Manda Connolly Procedure Date: 04/28/2024 4:05 PM Date of : 1940 Age: 83 Procedure: Upper GI endoscopy Indications: Hematochezia, Melena Providers: Ryan Hou DO Medicines: Monitored Anesthesia Care Patient Profile: This is an 83 year old female. Refer to note in patient chart for documentation of history and physical. Patient has symptoms of acute abdominal cramping and acute epigastric abdominal pain. Complications: No immediate complications. Procedure: Pre-Anesthesia Assessment: - Prior to the procedure, a History and Physical was performed, and patient medications and allergies were reviewed. The patient is competent. The risks and benefits of the procedure and the sedation options and risks were discussed with the patient. All questions were answered and informed consent was obtained. Patient identification and proposed procedure were verified by the physician in the pre-procedure area. Mental Status Examination: alert and oriented. Airway Examination: normal oropharyngeal airway and neck mobility. Respiratory Examination: clear to auscultation. CV Examination: normal. Prophylactic Antibiotics: The patient does not require prophylactic antibiotics. Prior Anticoagulants: The patient has taken no anticoagulant or antiplatelet agents except for NSAID medication. ASA Grade Assessment: III - A patient with severe systemic disease. After reviewing the risks and benefits, the patient was deemed in satisfactory condition to undergo the procedure. The anesthesia plan was to use monitored anesthesia care (MAC). Immediately prior to administration of medications, the patient was re-assessed for adequacy to receive sedatives. The heart rate, respiratory rate, oxygen saturations, blood pressure, adequacy of pulmonary ventilation, and response to care were monitored throughout the procedure. The physical status of the patient was re-assessed after the procedure. After obtaining informed consent, the endoscope was passed under direct vision. Throughout the procedure, the patient's blood pressure, pulse, and oxygen saturations were monitored continuously. The Endoscope was introduced through the mouth, and advanced to the second part of duodenum. The upper GI endoscopy was accomplished without difficulty. The patient tolerated the procedure well. Scope In: 4:12:20 PM Scope Out: 4:17:51 PM Total Procedure Duration Time 0 hours 5 minutes 31 seconds Findings: The examined esophagus was normal. Few non-bleeding linear gastric ulcers with no stigmata of bleeding were found in the gastric body. The largest lesion was 4 mm in largest dimension. Biopsies were taken with a cold forceps for histology. Verification of patient identification for the specimen was done. Estimated blood loss was minimal. Biopsies were taken with a cold forceps for Helicobacter pylori testing. Verification of patient identification for the specimen was done. Estimated blood loss was minimal. A medium-sized polypoid mass with no bleeding was found in the duodenal bulb. Biopsies were taken with a cold forceps for histology. Verification of patient identification for the specimen was done. Estimated blood loss was minimal. Impression: - Normal esophagus. - Non-bleeding gastric ulcers with no stigmata of bleeding. Biopsied. 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 Biopsied. Recommendation: - Return patient to [facility] for ongoing care. - Full liquid diet today. - Continue present medications. - Await pathology results. Procedure Code(s): --- Professional --- 10197, Esophagogastroduodenoscopy, flexible, transoral; with biopsy, single or multiple CPT copyright 2021 [employer]. All rights reserved. The codes documented in this report are preliminary and upon sde review may be revised to meet current compliance requirements. Ryan Hou DO 04/28/2024 4:24:02 PM This report has been signed electronically. Number of Addenda: 0 Note Initiated On: 04/28/2024 4:05 PM
--- NOTE | 2024-04-28 16:25 | OP.CCLET_ITS ---
04/28/2024 Ru Obrien Re : Upper GI endoscopy procedure for Manda Connolly Dear Kerwin This procedure was performed on Sunday, April 28, 2024. My impressions and recommendations are as follows: Impressions : - Normal esophagus. - Non-bleeding gastric ulcers with no stigmata of bleeding. Biopsied. 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 Biopsied. Recommendations : - Return patient to [facility] for ongoing care. - Full liquid diet today. - Continue present medications. - Await pathology results. My findings are described in the full procedure note, which is enclosed. If I can be of further assistance, please feel free to contact me at . Sincerely, Ryan Hou, 04/28/2024 4:24:02 PM This report has been signed electronically.
--- NOTE | 2024-04-28 16:28 | PCM.POST.ANE ---
Anesthesia: Postop Eval I Current Vital Signs Temperature: 98.5 F Pulse Rate: 96 Blood Pressure: 103/39 Respiratory Rate: 18 Pulse Ox: 98 Oxygen Delivery Method: Room Air Assessment Airway patent: Yes Spontaneous unlabored respirations: Yes Mental status: Asleep nausea: No Vomiting: No Anesthesia Complication: No Fluid Hydration Crystalloid volume administer (ml): 400 Total IV fluid infused: 400 Progress Note Anesthesia document: Postop Eval 1 completed: Yes
--- NOTE | 2024-04-28 16:35 | PCM.POSTANE2 ---
Anesthesia Postop Eval I Sum Postop Eval Completion status Anesthesia document: Postop Eval 1 completed: Yes Anesthesia Postop Eval I Summary Anesthesia Postop Eval I Summary: Anesthesia Postop Eval I: Assessment Summary Airway patent Yes 04/28/24 16:29 [email or web address] Spontaneous unlabored Yes 04/28/24 16:29 [email or web address] respirations Mental status Asleep 04/28/24 16:29 [email or web address] nausea No 04/28/24 16:29 [email or web address] Vomiting No 04/28/24 16:29 [email or web address] Anesthesia Postop Eval I: Fluid Summary Crystalloid volume administer 400 04/28/24 16:29 [email or web address] (ml) Colloids volume administered ( ml) Blood Product volume administered (ml) Total IV fluid infused 400 04/28/24 16:29 [email or web address] Anesthesia Postop Eval I: Summary Notes Anesthesia Complication No 04/28/24 16:29 [email or web address] Anesthesia Complication Comment: Post-operative progress note Anesthesia: Postop Eval II Evaluation Mental status: Awake Pain Level: 0 nausea: No Vomiting: No
[2024-04-28] MEDS: Albuterol 2.5 MG/3 ML VIAL.NEB. INHALATION (20:35)
[2024-04-28] MEDS: DULoxetine Hcl 30 MG Capsule PO (23:11)
[2024-04-28] MEDS: cloNIDine HCl 0.2 MG Tablet PO (23:11)
[2024-04-29 00:34] LABS: Bedside Glucose 90 mg/dL (74-106)
[2024-04-29 04:21] VITALS: BP 127/55; PULSE 86; RESP 16; TEMP 37.2; O2SAT 96
[2024-04-29 04:52] VITALS: BMI 25.4
[2024-04-29] MEDS: Pantoprazole Sodium 80 MG in 0.9% Normal Saline (100mL Bag) 80 ML 10 MG CONT INF (06:14)
[2024-04-29] MEDS: Piperacil/Tazobactam 3.375 GM in 0.9% Normal Saline (50mL MB+) 50 ML IV ×2 (06:31→13:32)
[2024-04-29 06:50] LABS: Absolute Lymphocyte Count 1.37 X10^3/uL (0.83-4.51); Absolute Neutrophil Count 6.5 X10^3/uL (2.0-7.7); Basophil# 0.06 X10^3/uL; Basophil% 0.7 % (0-1); Eosinophil# 0.19 X10^3/uL; Eosinophils% 2.1 % (0-5); Hematocrit 29.1 % (37-47); Hemoglobin 9.1 g/dL (12.0-15.0); Lymphocyte # 1.37 X10^3/ul (0.83-4.51); Lymphocyte % 15.5 % (19-41); Mean Corp Hgb Conc 31.3 g/dL (32-36); Mean Corpuscular Hgb 28.7 pg (27.0-32.0); Mean Corpuscular Volume 91.8 fL (81-99); Mean Platelet Vol. 9.5 fl (6.2-12.0); Monocyte# 0.68 X10^3/uL; Monocyte% 7.7 % (0-10); NRBC Flagged by Analyzer 0.2 % (0-5); Neutrophil # 6.48 X10^3/uL (2.7-7.7); Neutrophil % 73.2 % (47-70); Platelet Count 270 K/mm3 (150-450); RBC Distribution Width SD 53.6 fl (35.1-43.9); Red Blood Count 3.17 M/mm3 (4.2-5.4); White Blood Count 8.9 K/mm3 (4.4-11.0)
[2024-04-29 06:57] LABS: Bedside Glucose 98 mg/dL (74-106)
[2024-04-29 07:17] VITALS: PULSE 96; RESP 17; O2SAT 95
[2024-04-29] MEDS: Budesonide Respules 0.5 MG/2 ML AMPUL.NEB. INHALATION (07:17)
[2024-04-29] MEDS: Albuterol 2.5 MG/3 ML VIAL.NEB. INHALATION (07:17)
[2024-04-29 07:30] LABS: Anion Gap 6 (5-15); BUN 30 mg/dL (7-18); BUN/Creat Ratio 25.2 RATIO (10-20); Calcium,Total 8.1 mg/dL (8.5-10.1); Chloride 118 mmol/L (98-107); Creatinine, Serum 1.19 mg/dL (0.55-1.02); EST Glomerular Filtration Rate 46 mL/min (>60); Est Glom Filt Rate - Afr Amer 56 mL/min (>60); Estimated Creatinine Clearance 29.79 ml/min; Glucose 101 mg/dL (74-106); Phosphorus 2.6 mg/dL (2.5-4.9); Potassium 4.3 mmol/L (3.5-5.1); Sodium Level 142 mmol/L (136-145)
[2024-04-29] MEDS: dilTIAZem CD 240 MG Capsule PO (08:31)
--- NOTE | 2024-04-29 08:56 | PN.HOSP_ITS ---
Reason for Visit Reason for Visit: Diagnoses Diverticulitis of intestine, part unspecified, without perforation or abscess without bleeding (04/27/24) Subjective Subjective Patient seen underwent EGD the day prior findings and recommendation as noted in assessment and plan. Patient is requesting to be discharged home. H&H remained stable Objective Data Objective Data Vital Signs: Vital Signs Temp Pulse Resp BP Pulse Ox O2 Del Method 98.9 F 96 17 127/55 H 95 Room Air 04/29/24 04:21 04/29/24 07:17 04/29/24 07:17 04/29/24 04:21 04/29/24 07:17 04/29/24 07:17 Oxygen Delivery Method Room Air Weight: 59 kg Body Mass Index (BMI) 25.4 Intake & Output: Intake and Output for Last 24 Hours 04/27/24 04/28/24 04/29/24 23:59 23:59 23:59 Intake Total 1050 / 1050 1548.84 / 2348.84 950 / 950 Output Total 800 / 800 Balance 1050 / 1050 1548.84 / 2348.84 150 / 150 Lab / Micro Data 04/29/24 06:23 04/29/24 06:23 Labs: Laboratory Results - last 24 hr 04/27/24 21:01: Crossmatch See Detail 04/28/24 09:27: POC Glucose 139 H 04/28/24 09:57: Hgb 7.8 L, Hct 25.5 L 04/28/24 14:27: Hgb 9.6 L, Hct 30.4 L 04/28/24 23:13: POC Glucose 90 04/29/24 06:23: WBC 8.9, RBC 3.17 L, Hgb 9.1 L, Hct 29.1 L, MCV 91.8, MCH 28.7, MCHC 31.3 L, RDW Std Deviation 53.6 H, RDW Coeff of Tia 16.0 H, Plt Count 270, MPV 9.5, Immature Gran % (Auto) 0.800, Neut % (Auto) 73.2 H, Lymph % (Auto) 15.5 L, [place] % (Auto) 7.7, Eos % (Auto) 2.1, Baso % (Auto) 0.7, Absolute Neuts (auto) 6.5, Absolute Lymphs (auto) 1.37, Nucleated RBC % 0.2, Sodium 142, Potassium 4.3, Chloride 118 H, Carbon Dioxide 18.0 L, Anion Gap 6, BUN 30 H, Creatinine 1.19 H, Estim Creat Clear Calc 29.79, Est GFR (MDRD) Af Amer 56 L, Est GFR (MDRD) Non-Af 46 L, BUN/Creatinine Ratio 25.2 H, Glucose 101, Calcium 8.1 L, Phosphorus 2.6, Magnesium 2.0 04/29/24 06:30: POC Glucose 98 Micro: Microbiology 04/27/24 16:00 Stool Stool Occult Blood (ADENIKE) - Final Occult Blood Positive Physical Exam Narrative GENERAL: cooperative HEENT: Atraumatic; normocephalic EYES; Anicteric, Normal Conjunctiva NECK; supple, normal thyroid, RESPIRATORY: Diminished to auscultation CARDIOVASCULAR: Regular S1 S2, GI: soft, normoactive bowel sounds, LLQ tenderness : No Renal angle tenderness; EXTREMITIES: No edema, no clubbing, MUSCULOSKELETAL: no muscle wasting NEURO: Awake; no lateralizing signs. SKIN: No Rash PSYCH; Flat affect Assessment & Plan Assessment/Plan (1) Diverticulitis: PLAN: Plan Patient is an 83-year-old lady presented with lightheadedness with associated lower GI bleed. CT of the abdomen and pelvis demonstrated mild focal acute diverticulitis of the descending colon. No evidence of drainable abscess or free air. Admitted to regular nursing floor for further management 1. Acute diverticulitis ? Patient started on broad-spectrum antibiotic therapy 2. Acute blood loss anemia ? Secondary to diverticular bleed complicated by use of systemic anticoagulation with apixaban monitoring H&H and transfuse if patient becomes symptomatic or hemoglobin falls below 7. With patient hemoglobin dropping from 8.6 on admission to 6.5 this a.m. and order was given for patient to be transfused 1 unit PRBC. Consultation was placed to GI 04/29/2024; patient underwent EGD the day prior results and recommendations as below - Normal esophagus. - Non-bleeding gastric ulcers with no stigmata of bleeding. Biopsied. 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 Biopsied. Recommendations : - [facility] care. - Full liquid diet today. - Continue present medications. - Await pathology results. 3. Acute kidney injury ? Superimposed on chronic kidney disease stage III. Baseline creatinine 1.8 creatinine on admission was 1.62 started on IV hydration with subsequent monitoring of electrolyte ? 04/29/2024 kidney function did improve with IV hydration 4. Hypovolemic hyponatremia ? Patient be resuscitated with IV fluid with subsequent monitoring of electrolytes ordered 5. Essential hypertension ? Antihypertensives held given patient relatively low blood pressure 6. COPD ? Currently not in exacerbation aerosol treatment as needed 7. Diabetes mellitus type II -patient's oral hypoglycemics held. Placed on long acting insulin, Accu-Cheks a.c. and at bedtime and covered with sliding scale insulin 8.Acute cystitis ? Present on admission started on broad-spectrum antibiotic therapy 9. Mild hyperkalemia ? Potassium on admission was 5.2; Down to 4.7 this a.m. 10. History of TIAs ? Patient is on clopidogrel 7. Depression with anxiety ? Patient is on duloxetine 12. GERD ? Patient is on PPI 13. Paroxysmal A-fib ? Rate controlled on diltiazem. On systemic anticoagulation with apixaban ? 04/29/2024 plan is to hold apixaban for 2 weeks given findings above 14. Peripheral arterial disease ? With previous stent placement in lower extremities patient is on clopidogrel currently being held 15. DVT prophylaxis ? Patient is on apixaban currently being held given her presentation Time spent in the patient's overall evaluation,decision-making process, review of diagnostic data, adjustment of management, discussion with other providers, nursing nursing and ancillary staff involved in patient's care documentation, 38 Minutes
[2024-04-29 09:23] VITALS: BP 118/52; PULSE 97; RESP 16; TEMP 37; O2SAT 94
--- NOTE | 2024-04-29 10:40 | DS.PCM_ITS ---
Providers Date of Admission: 04/27/24 Date of Discharge: 04/29/24 Primary Care Physician: JEAN Obrien Consultations 04/27/24 20:52 Consult: Gastroenterology Routine Consulting Provider: [facility] Reason for Consult: GI bleed EMERGENT Consult: No MD Notified: Yes Date Notified: 04/27/24 Time Notified: 20:28 Method of Notification: ED Physician Initiated Reason For Visit: ACUTE DIVERTICULITIS, GI BLEED, ABLA Diagnosis Discharge Diagnosis (1) Diverticulitis: Status: Acute Code(s): K57.92 - Diverticulitis of intestine, part unspecified, without perforation or abscess without bleeding Plan Patient is an 83-year-old lady presented with lightheadedness with associated lower GI bleed. CT of the abdomen and pelvis demonstrated mild focal acute diverticulitis of the descending colon. No evidence of drainable abscess or free air. Admitted to regular nursing floor for further management 1. Acute diverticulitis ? Patient started on broad-spectrum antibiotic therapy 2. Acute blood loss anemia ? Secondary to diverticular bleed complicated by use of systemic anticoagulation with apixaban monitoring H&H and transfuse if patient becomes symptomatic or hemoglobin falls below 7. With patient hemoglobin dropping from 8.6 on admission to 6.5 this a.m. and order was given for patient to be transfused 1 unit PRBC. Consultation was placed to GI 04/29/2024; patient underwent EGD the day prior results and recommendations as below - Normal esophagus. - Non-bleeding gastric ulcers with no stigmata of bleeding. Biopsied. 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 Biopsied. Recommendations : - Return patient to [facility] for [facility] care. - Full liquid diet today. - Continue present medications. - Await pathology results. 3. Acute kidney injury ? Superimposed on chronic kidney disease stage III. Baseline creatinine 1.8 creatinine on admission was 1.62 started on IV hydration with subsequent monitoring of electrolyte ? 04/29/2024 kidney function did improve with IV hydration 4. Hypovolemic hyponatremia ? Patient be resuscitated with IV fluid with subsequent monitoring of electrolytes ordered 5. Essential hypertension ? Antihypertensives held given patient relatively low blood pressure 6. COPD ? Currently not in exacerbation aerosol treatment as needed 7. Diabetes mellitus type II -patient's oral hypoglycemics held. Placed on long acting insulin, Accu-Cheks a.c. and at bedtime and covered with sliding scale insulin 8.Acute cystitis ? Present on admission started on broad-spectrum antibiotic therapy 9. Mild hyperkalemia ? Potassium on admission was 5.2; Down to 4.7 this a.m. 10. History of TIAs ? Patient is on clopidogrel 7. Depression with anxiety ? Patient is on duloxetine 12. GERD ? Patient is on PPI 13. Paroxysmal A-fib ? Rate controlled on diltiazem. On systemic anticoagulation with apixaban ? 04/29/2024 plan is to hold apixaban for 2 weeks given findings above 14. Peripheral arterial disease ? With previous stent placement in lower extremities patient is on clopidogrel currently being held 15. DVT prophylaxis ? Patient is on apixaban currently being held given her presentation Time spent in the patient's overall evaluation,decision-making process, review of diagnostic data, adjustment of management, discussion with other providers, nursing nursing and ancillary staff involved in patient's care documentation, 38 Minutes Medications at Discharge Home Medications albuterol sulfate 2.5 mg/3 mL (0.083 %) solution for nebulization 2.5 mg inhalation Q4H PRN PRN COPD 03/25/16 ascorbic acid (vitamin C) 500 mg capsule 500 mg PO DAILY 11/28/22 cholecalciferol (vitamin D3) 10 mcg (400 unit) capsule 10 mcg PO DAILY 11/28/22 clopidogrel 75 mg tablet 75 mg PO DAILY 04/30/23 glipizide 2.5 mg tablet, extended release 24 hr 2.5 mg PO DAILY 09/19/23 pantoprazole 40 mg tablet,delayed release 40 mg PO DAILY 09/19/23 albuterol sulfate 90 mcg/actuation aerosol inhaler 2 inh inhalation Q4H PRN COPD #18 grams 11/04/23 fluticasone 250 mcg-salmeterol 50 mcg/dose blistr powdr for inhalation 1 inh inhalation BID #60 ea 11/04/23 apixaban 2.5 mg tablet (Eliquis) 2.5 mg PO Q12H 03/18/24 clonidine HCl 0.2 mg tablet 0.2 mg PO QHS 03/18/24 diltiazem HCl 120 mg capsule,extended release 24 hr 240 mg PO DAILY 03/18/24 dulaglutide 1.5 mg/0.5 mL [facility] 1.5 mg subcut .weekly 03/18/24 duloxetine 30 mg capsule,delayed release 30 mg PO QHS 03/18/24 ferrous gluconate 324 mg (38 mg iron) tablet 324 mg PO DAILY 03/18/24 ciprofloxacin HCl 500 mg tablet (Cipro) 500 mg PO BID #14 tabs 04/29/24 metronidazole 500 mg tablet 500 mg PO TID #20 tabs 04/29/24 Hospital Course Procedures EGD Physical Exam Narrative GENERAL: cooperative HEENT: Atraumatic; normocephalic EYES; Anicteric, Normal Conjunctiva NECK; supple, normal thyroid, RESPIRATORY: Diminished to auscultation CARDIOVASCULAR: Regular S1 S2, GI: soft, normoactive bowel sounds, LLQ tenderness : No Renal angle tenderness; EXTREMITIES: No edema, no clubbing, MUSCULOSKELETAL: no muscle wasting NEURO: Awake; no lateralizing signs. SKIN: No Rash PSYCH; Flat affect Weight / BMI Weight Weight: 59 kg Body Mass Index (BMI) 25.4 ABG / Lab / Microbiology Data 04/29/24 06:23 04/29/24 06:23 Laboratory: Laboratory Results - last 24 hr 04/27/24 21:01: Crossmatch See Detail 04/28/24 14:27: Hgb 9.6 L, Hct 30.4 L 04/28/24 23:13: POC Glucose 90 04/29/24 06:23: WBC 8.9, RBC 3.17 L, Hgb 9.1 L, Hct 29.1 L, MCV 91.8, MCH 28.7, MCHC 31.3 L, RDW Std Deviation 53.6 H, RDW Coeff of Tia 16.0 H, Plt Count 270, MPV 9.5, Immature Gran % (Auto) 0.800, Neut % (Auto) 73.2 H, Lymph % (Auto) 15.5 L, [place] % (Auto) 7.7, Eos % (Auto) 2.1, Baso % (Auto) 0.7, Absolute Neuts (auto) 6.5, Absolute Lymphs (auto) 1.37, Nucleated RBC % 0.2, Sodium 142, Potassium 4.3, Chloride 118 H, Carbon Dioxide 18.0 L, Anion Gap 6, BUN 30 H, Creatinine 1.19 H, Estim Creat Clear Calc 29.79, Est GFR (MDRD) Af Amer 56 L, Est GFR (MDRD) Non-Af 46 L, BUN/Creatinine Ratio 25.2 H, Glucose 101, Calcium 8.1 L, Phosphorus 2.6, Magnesium 2.0 04/29/24 06:30: POC Glucose 98 Microbiology: Microbiology 04/27/24 16:00 Stool Stool Occult Blood (ADENIKE) - Final Occult Blood Positive D/C Instructions Discharge Diet: No restrictions Discharge Activity: Return to Normal Activity Call your doctor if you observe: Fever of 101 or Higher, Shortness of breath, Fainting spells and Chest pain Meaningful Use Info Meaningful Use Meaningful Use Diagnoses (Choose all that apply): None applicable Ischemic Stroke Statin Dosing Therapy Reference: STATIN DOSE THERAPY REFERENCE: * Patients > 75 years receive moderate or high dose statin therapy. * Patients 75 years or YOUNGER should receive HIGH intensity statin dose unless contraindicated. You will be required to document reason for non-treatment if statin daily dose does not meet guidelines. HIGH DOSE STATIN THERAPY DAILY Atorvastatin > than or = to 40 mg Rosuvastatin > than or = to 20 mg Amlodipine + Atorvastatin > than or = to 2.5/40 mg Ezetimibe + Simvastatin 10/80 mg Simvastatin 80mg Discharge Plan Admission Admit Date/Time: 04/27/24 20:26 Attending Provider: Kd Caldera Primary Care Provider: Jeff Suresh NP Consulting Providers: Bertha Da Silva Discharge Orders/Prescriptions Prescriptions: New metronidazole 500 mg tablet 500 mg PO TID Qty: 20 0RF ciprofloxacin HCl [Cipro] 500 mg tablet 500 mg PO BID Qty: 14 0RF Continued cholecalciferol (vitamin D3) 10 mcg (400 unit) capsule 10 mcg PO DAILY ascorbic acid (vitamin C) 500 mg capsule 500 mg PO DAILY clonidine HCl 0.2 mg tablet 0.2 mg PO QHS diltiazem HCl 120 mg capsule,extended release 24hr 240 mg PO DAILY duloxetine 30 mg capsule,delayed release(DR/EC) 30 mg PO QHS ferrous gluconate 324 mg (38 mg iron) tablet 324 mg PO DAILY Trulicity 1.5 mg/0.5 mL pen injector 1.5 mg subcut .weekly Rx Instructions: takes on Friday (did not take this Friday) albuterol sulfate 2.5 MG/3 ML solution for nebulization 2.5 mg INHALATION Q4H PRN PRN (Reason: COPD) glipizide 2.5 mg tablet extended release 24hr 2.5 mg PO DAILY pantoprazole 40 mg tablet,delayed release (DR/EC) 40 mg PO DAILY fluticasone propion-salmeterol 250-50 mcg/dose blister with device 1 inh INHALATION BID Qty: 60 0RF albuterol sulfate 90 mcg/actuation HFA aerosol inhaler 2 inh INHALATION Q4H PRN Qty: 18 0RF Held Eliquis 2.5 mg tablet 2.5 mg PO Q12H Hold Instructions: Resume on 05/13/24. clopidogrel 75 mg tablet 75 mg PO DAILY Hold Instructions: Resume on 05/13/24. Discontinued lisinopril 5 mg tablet 5 mg PO DAILY Referrals / Follow Up: Ryan Hou DO [Med Staff - Active Staff] - Within 2 Weeks Jeff Suresh NP, NEONATOLOGIST-C [Primary Care Provider] - Within 1 Week Disposition Disposition (needs filled in before D/C Order can be placed): Home, Self Care Charges/Coding Visit Charges Inpatient E&M: 12164 Disch Hosp >30min
[2024-04-29] MEDS: Ferrous Gluconate 324 MG Tablet 325 MG PO (11:09)
[2024-04-29] MEDS: Insulin Lispro 100 UNIT/ML INSULN.PEN SC (11:11)
[2024-04-29 11:29] LABS: Bedside Glucose 230 mg/dL (74-106)
[2024-04-29 11:40] VITALS: BP 121/57; PULSE 82; RESP 16; TEMP 37; O2SAT 97
== END 2024-04-29 16:50 | disposition home or self-care (01) | DRG 378 ==
LOC: ED 19:28 → MS3 20:36
PROVIDERS: Internal Medicine Gastroenterology; Admitting Provider Family Medicine; Emergency Provider Surgery; PCP Nurse Practitioner Primary Care; Visit Provider Internal Medicine
PROC: 0DJ08ZZ Inspection of Upper Intestinal Tract, Via Natural or Artificial Opening Endoscopic (ICD-10-PCS; CPT 43235; principal; 2024-04-28 16:05)
DX: K57.33 Diverticulitis of large intestine without perforation or abscess with bleeding (principal); N17.9 Acute kidney failure, unspecified; D68.32 Hemorrhagic disorder due to extrinsic circulating anticoagulants; E87.20 Acidosis, unspecified; E87.1 Hypo-osmolality and hyponatremia; D62 Acute posthemorrhagic anemia; N30.00 Acute cystitis without hematuria; I48.0 Paroxysmal atrial fibrillation; E86.0 Dehydration; E11.22 Type 2 diabetes mellitus with diabetic chronic kidney disease; N18.30 Chronic kidney disease, stage 3 unspecified; J44.9 Chronic obstructive pulmonary disease, unspecified; G25.81 Restless legs syndrome; D50.9 Iron deficiency anemia, unspecified; I12.9 Hypertensive chronic kidney disease with stage 1 through stage 4 chronic kidney disease, or unspecified chronic kidney disease; F32.A Depression, unspecified; K25.9 Gastric ulcer, unspecified as acute or chronic, without hemorrhage or perforation; Z95.820 Peripheral vascular angioplasty status with implants and grafts; E11.51 Type 2 diabetes mellitus with diabetic peripheral angiopathy without gangrene; E87.5 Hyperkalemia; E11.40 Type 2 diabetes mellitus with diabetic neuropathy, unspecified; E78.5 Hyperlipidemia, unspecified; K21.9 Gastro-esophageal reflux disease without esophagitis; F41.9 Anxiety disorder, unspecified; E86.1 Hypovolemia; K31.7 Polyp of stomach and duodenum; T45.515A Adverse effect of anticoagulants, initial encounter; Z23 Encounter for immunization; Z79.84 Long term (current) use of oral hypoglycemic drugs; Z79.85 Long-term (current) use of injectable non-insulin antidiabetic drugs; Z79.01 Long term (current) use of anticoagulants; Z79.02 Long term (current) use of antithrombotics/antiplatelets; Z79.51 Long term (current) use of inhaled steroids; Z79.899 Other long term (current) drug therapy; Z87.891 Personal history of nicotine dependence; Z86.73 Personal history of transient ischemic attack (TIA), and cerebral infarction without residual deficits
CPT/HCPCS: 36415; 74177; 80048; 80053; 81001; 82274; 82962; 83605; 83690; 83735; 84100; 85014; 85018; 85025; 85610; 85730; 86850; 86900; 86901; 86920; 86922; 88305; 88342; 90662; 94640; 94668; 99284; J7030; J7040; J7050; J7120; P9016; A4216; J2405

== ENCOUNTER → 2024-05-19 | Outpatient (CLI) | payer MEDICARE, MEDICAID, SELFPAY ==
[2024-05-19 10:41] LABS: Absolute Lymphocyte Count 2.02 X10^3/uL (0.83-4.51); Absolute Neutrophil Count 3.2 X10^3/uL (2.0-7.7); Basophil# 0.07 X10^3/uL; Basophil% 1.2 % (0-1); Eosinophil# 0.09 X10^3/uL; Eosinophils% 1.5 % (0-5); Hematocrit 36.3 % (37-47); Hemoglobin 11.2 g/dL (12.0-15.0); Lymphocyte # 2.02 X10^3/ul (0.83-4.51); Lymphocyte % 33.6 % (19-41); Mean Corp Hgb Conc 30.9 g/dL (32-36); Mean Corpuscular Hgb 28.9 pg (27.0-32.0); Mean Corpuscular Volume 93.8 fL (81-99); Mean Platelet Vol. 9.4 fl (6.2-12.0); Monocyte# 0.65 X10^3/uL; Monocyte% 10.8 % (0-10); NRBC Flagged by Analyzer 0 % (0-5); Neutrophil # 3.15 X10^3/uL (2.7-7.7); Neutrophil % 52.4 % (47-70); Platelet Count 532 K/mm3 (150-450); RBC Distribution Width CV 14.2 % (11.6-14.6); RBC Distribution Width SD 48.7 fl (35.1-43.9); RET-HE 29.2 pg (30-35); Red Blood Count 3.87 M/mm3 (4.2-5.4); Reticulocyte Count 1.27 % (0.5-1.5)
[2024-05-19 11:10] LABS: Ferritin 29 ng/mL (8-252); Iron 61 ug/dL (50-170); Iron Binding Capacity,Total 274 ug/dL (250-450); LDH 161 U/L (84-246)
[2024-05-20 17:08] LABS: Albumin 3.4 g/dL (2.9-4.4); Alpha-1-Globulins 0.3 g/dL (0.0-0.4); Alpha-2-Globulins 0.9 g/dL (0.4-1.0); Endomysial Antibody IgA Negative (Negative); Gamma Globulin 0.8 g/dL (0.4-1.8); IMMUNOFIXATION RESULT,S Comment: (.); Immunoglobulin A 274 mg/dL (64-422); Immunoglobulin G 742 mg/dL (586-1602); Immunoglobulin M 74 mg/dL (26-217); PROEL- TOTAL PROTEIN 6.4 g/dL (6.0-8.5); t-Transglutaminase IgA <2 U/mL (0-3)
== END | disposition home or self-care (01) ==
LOC: LAB 09:56
PROVIDERS: PCP Nurse Practitioner Primary Care; Referring Provider Internal Medicine Gastroenterology; Visit Provider Internal Medicine Gastroenterology
DX: D50.0 Iron deficiency anemia secondary to blood loss (chronic) (principal)
CPT/HCPCS: 36415; 82728; 82784; 83516; 83540; 83550; 83615; 84165; 85025; 85045; 86255; 86334

== ENCOUNTER 2024-05-29 17:43 | Emergency (ER) | payer MEDICARE, MEDICAID, SELFPAY ==
[2024-05-29 17:46] VITALS: BP 119/44; PULSE 79; RESP 18; TEMP 36.6; O2SAT 97; BMI 25.2
[2024-05-29 19:44] VITALS: BP 126/51; PULSE 81; RESP 14; O2SAT 96
--- NOTE | 2024-05-29 20:05 | CT_ITS ---
STUDY: CT ABDOMEN AND PELVIS WITH CONTRAST REASON FOR EXAM: Female, 83 years old. lower abd pain RADIATION DOSAGE (If Supplied By Facility): CTDIvol = ( 12.54 ) mGy, DLP = ( 578.59 ) mGycm TECHNIQUE: IV 75mL Isovue-[id number] was administered. Transaxial images were obtained from the dome of the diaphragm to the symphysis pubis in the portal venous phase. Multiplanar coronal and sagittal images were reformatted. Individualized Dose Optimization Techniques Were Used For This CT. COMPARISON: Prior study dated: 04/27/2024 FINDINGS: LOWER CHEST: Lung bases are clear. No cardiomegaly or pericardial effusion. Coronary artery calcifications are seen. LIVER: The liver is normal in size, shape, and attenuation. No focal mass. GALLBLADDER AND BILIARY TREE: The gallbladder is normally distended. No gallstones. No gallbladder wall thickening or edema. No pericholecystic fluid. No intra- or extrahepatic biliary ductal dilation. PANCREAS: No focal cystic or solid mass. SPLEEN: Normal size without focal cystic or solid mass. ADRENAL GLANDS: No nodules. KIDNEYS AND URETERS: Normal renal size and position. No hydronephrosis or nephrolithiasis. PERITONEUM: No ascites or free air. No other fluid collection. BOWEL: Small hiatal hernia. Normal caliber small bowel. No obstruction. Moderate colonic stool burden. Mild wall thickening of the descending and sigmoid colon with faint adjacent inflammation. Diverticulosis without diverticulitis. No evidence of acute appendicitis. LYMPH NODES: No enlarged mesenteric or retroperitoneal lymph nodes. VESSELS: The aorta is normal in caliber with moderate atherosclerotic calcification. URINARY BLADDER: Unremarkable. REPRODUCTIVE ORGANS: No pelvic masses. ABDOMINAL WALL: No discrete abdominal or pelvic wall hernia. BONES: No lytic or blastic abnormality. Mild degenerative changes. CT/Abdomen/Pelvis W IV Cont ONLY IMPRESSION: Mild wall thickening with inflammation involving the left hemicolon, suggestive of colitis. Moderate colonic stool burden. Electronically Signed: Morris Malik MD at 22:13 EDT ,
--- NOTE | 2024-05-29 20:07 | ED.VIS.GI ---
HPI HPI - GI History of Present Illness Chief Complaint: Weakness Informant: patient Abdominal Pain/Flank Pain Onset: Today Context: Gradual Onset Timing: Continuous Nausea/Vomiting/Emesis GI Symptom: Negative for Nausea or Vomiting Diarrhea/Melena/Hematochezia GI Symptom: Negative for Diarrhea, Melena or Hematochezia Associated Symptoms Associated Symptoms: Negative for Dysuria, Frequency, Hematuria or Urgency Narrative Narrative: 83-year-old female history of A-fib, TIA, COPD, diabetes on both Plavix and Eliquis. Recent hospitalization for diverticulitis. Earlier in April. Was at [facility] this past week for stenting of her lower extremity. Due to peripheral arterial disease. Today she presents primarily with lower abdominal pain. Denies vomiting or diarrhea. Mild constipation. No dysuria. No fever. She has had a prior hysterectomy and believes when they did that they also did an appendectomy. Prior similar symptoms: Yes Recent Illness/Hospitalization: Yes PFSH PFS Medical History Alcohol abuse Kidney disease Atrial fibrillation Hypertension TIA (transient ischemic attack) Primary osteoarthritis, right shoulder Right shoulder pain Wears glasses Wears dentures Alcohol use Diabetes Ambulates with cane Arthritis Restless legs Vaso vagal episode Dietary restriction COPD (chronic obstructive pulmonary disease) Former smoker Leg cramps PVD (peripheral vascular disease) History of edema History of stress test Cardiology follow-up encounter Neuropathy Iron deficiency History of TIA (transient ischemic attack) GERD (gastroesophageal reflux disease) GI bleed Depression Anxiety CKD (chronic kidney disease) Diabetes mellitus type II, controlled Hyperlipidemia Stage 3 severe COPD by GOLD classification Essential (primary) hypertension PAD (peripheral artery disease) Preoperative cardiovascular examination Nicotine dependence Abnormal electrocardiogram Bilateral carotid bruits Long-term use of high-risk medication COPD (chronic obstructive pulmonary disease) COPD with acute exacerbation Dyspnea Home Medications ?Medication ?Instructions ?Recorded ?Last Taken ?Type albuterol sulfate 2.5 mg/3 mL 2.5 mg inhalation Q4H PRN PRN COPD 03/25/16 Unknown History (0.083 %) solution for nebulization ascorbic acid (vitamin C) 500 mg 500 mg PO DAILY 11/28/22 10/28/23 History capsule cholecalciferol (vitamin D3) 10 10 mcg PO DAILY 11/28/22 10/28/23 History mcg (400 unit) capsule clopidogrel 75 mg tablet 75 mg PO DAILY 04/30/23 09/24/23 History glipizide 2.5 mg tablet, extended 2.5 mg PO DAILY 09/19/23 10/28/23 History release 24 hr pantoprazole 40 mg tablet,delayed 40 mg PO DAILY 09/19/23 10/29/23 History release albuterol sulfate 90 mcg/actuation 2 inh inhalation Q4H PRN COPD #18 11/04/23 Unknown Rx aerosol inhaler grams fluticasone 250 mcg-salmeterol 50 1 inh inhalation BID #60 ea 11/04/23 Unknown Rx mcg/dose blistr powdr for inhalation apixaban 2.5 mg tablet (Eliquis) 2.5 mg PO Q12H 03/18/24 Unknown History clonidine HCl 0.2 mg tablet 0.2 mg PO QHS 03/18/24 Unknown History diltiazem HCl 120 mg 240 mg PO DAILY 03/18/24 Unknown History capsule,extended release 24 hr dulaglutide 1.5 mg/0.5 mL 1.5 mg subcut .weekly 03/18/24 Unknown History subcutaneous pen injector (Trulicity) duloxetine 30 mg capsule,delayed 30 mg PO QHS 03/18/24 Unknown History release ferrous gluconate 324 mg (38 mg 324 mg PO DAILY 03/18/24 Unknown History iron) tablet Allergy/AdvReac Type Severity Reaction Status Date / Time ferrous sulfate Allergy Intermediate Other Verified 05/29/24 17:46 iron AdvReac Severe Low blood Verified 05/29/24 17:46 pressure gabapentin AdvReac Intermediate Pedal edema Verified 05/29/24 17:46 pregabalin (From Lyrica) AdvReac Intermediate Pedal edema Verified 05/29/24 17:46 codeine AdvReac Nausea Verified 05/29/24 17:46 Tetracyclines AdvReac Nausea Verified 05/29/24 17:46 Family History Sister CAD (coronary artery disease) Brother CAD (coronary artery disease) Mother Cancer Father , at age 70 secondary to GSW while hunting. No problems noted. Surgical History H/O shoulder surgery Hx of tubal ligation Hx of colonoscopy History of esophagogastroduodenoscopy (EGD) Right lower extremity angioplasty H/O foot surgery History of appendectomy History of total abdominal hysterectomy H/O tubal ligation H/O: hysterectomy H/O foot surgery History of appendectomy Social History household members: none Smoking Status: Former smoker quit date: 07/28/15 second hand exposure: Yes alcohol intake: never substance use type: does not use ROS ROS ED ROS Narrative Lower abdominal pain. Constitutional Constitutional ED: Denies chills or fever(s) ENT ENT ED: Denies ear pain Cardiovascular Cardiovascular: Denies chest pain Respiratory/Chest Respiratory/Chest: Denies cough or dyspnea Gastrointestinal Gastrointestinal: Reports abdominal pain and constipation; Denies diarrhea, melena, nausea or vomiting Genitourinary Genitourinary ED: Denies dysuria or hematuria Musculoskeletal Musculoskeletal: Denies arthralgias Integumentary Denies abscess Neurologic Neurologic: Denies headache(s) Psychiatric Psychiatric: Denies anxiety Endocrine Endocrinology: Denies polydipsia Hematologic/Lymphatic Hematologic/Lymphatic: Denies lymphadenopathy Allergic/Immunologic Allergic/Immunologic ED: Denies mouth swelling, tongue swelling or urticaria EXAM Physical Exam Narrative Exam Narrative: 83-year-old female sitting upright in bed. Family member at bedside. Vital signs are stable afebrile. She does not look septic toxic any distress. H EENT exam unremarkable. Mildly dry mucous membranes. Neck nontender. Lungs clear to auscultation bilaterally. Heart regular rate about 80. No murmur. Chest wall ribs nontender. Abdomen soft nondistended normal bowel sounds no peritoneal signs. Mild lower abdominal tenderness bilaterally. No hernia or mass. No distention. No postop mass. Moving all 4 extremities. Nontender no edema or cords in the calves. She has an area marked on the left lower thigh that was a recent hematoma but it is resolved. Back is nontender. She is awake and alert. Const Vital Signs: 05/29/24 17:46 05/29/24 17:50 05/29/24 19:44 Temperature 97.9 F Temperature Source Oral Pulse Rate 79 81 Respiratory Rate 18 14 Respiratory Effort Normal Respiratory Pattern Normal Blood Pressure 119/44 L 126/51 H Blood Pressure Mean 69 76 Pulse Ox 97 96 Oxygen Delivery Method Room Air 05/29/24 21:00 Temperature Temperature Source Pulse Rate 97 Respiratory Rate 22 H Respiratory Effort Respiratory Pattern Blood Pressure Blood Pressure Mean Pulse Ox 96 Oxygen Delivery Method Positive well nourished and well developed; Negative for obese, cachectic, contractures or unkempt General Appearance ED: well developed and NAD; Negative for unkempt, cachectic, contractures or pallor Nutritional Appearance: Negative for cachectic or obese HEENT Reports dry mucous membranes; Denies moist mucous membranes normocephalic and atraumatic; Negative for trauma or tenderness Mouth ED: Yes dry mucous membranes Mouth: dry mucous membranes Eyes PERRL and EOMs intact bilaterally General Eye ED: Negative for pale conjunctiva or scleral icterus Neck no lymphadenopathy, supple and no JVD General: Negative for tenderness Carotids: Negative for other Lymph Lymphatic: Negative for other Resp normal respiratory effort and clear to auscultation bilaterally Auscultation: Negative for rales, rhonchi or wheezes Cardio regular rate, regular rhythm, S1 normal heart sound, S2 normal heart sound and no murmurs Rate: Negative for bradycardia or tachycardic Rhythm: Negative for abnormal rhythm GI non-distended and no masses; Negative for non-tender GI Narrative: Mild bilateral lower quadrant tenderness. No hernia or mass. No distention. Auscultation: normoactive bowel sounds Palpation: soft and tender; Negative for guarding, rigid, hepatomegaly, splenomegaly, hernia, mass, pulsatile mass or rebound tenderness present Back/Spine no CVA tenderness Extremity full ROM General Extremety ED: Negative for edema or tenderness General Extremity: Negative for edema Neuro CN's II-XII intact bilaterally and moves all extremities Motor Exam: strength 5/5 throughout Psych mental status grossly normal and thought process normal Appearance: Negative for unkempt Skin no wounds General Skin Exam: Negative for jaundice or pallor Lesions: no lesions Rashes: no rashes Trauma: Negative for abrasion Nails: Negative for discolored MDM MDM MDM Narrative Medical decision making narrative: 83-year-old female lower abdominal pain. CAT scan and labs pending. Differential would include diverticulitis, UTI versus other etiologies. Should be given for morphine for pain, Zofran and of a liter normal saline. Reviewed and patient doing well at 10:30 PM. However test results with her and family. A nonspecific cause of admit her. She clinically looks a little dehydrated. She was given IV fluids. Abdomen is benign. Patient wants to be discharged home. At all a specific cause or admit her. She has not elevated white count when I do not have a source and she has had elevated white counts in the past. I did do a rectal exam she has got stool in the rectal vault it is brown there is no gross blood. No black stool. Patient be discharged home outpatient follow-up. Return if worse. History & Record Review Discussion w/independent historian: Patient Additional record(s) reviewed:: Prior inpatient record, Prior outpatient record, Prior ED visit and Prior labs Lab Data Attestation: I reviewed the patient's lab results. Lab results narrative: CBC showed elevated white count 18.8. H&H 8.5 and 26. Platelets 360. Electrolytes show gap 7. BUN 52 creatinine 1.43 consistent with dehydration. Treated with IV fluids. Glucose 162. Liver enzymes unremarkable. Lipase normal at 51. CAT scan consistent with constipation and colitis of the left hemicolon. UA normal. No white or red cells. Rare bacteria. No nitrates. Labs: Laboratory Results - last 24 hr 05/29/24 05/29/24 19:00 20:40 WBC 18.8 H RBC 2.87 L Hgb 8.5 L Hct 26.6 L MCV 92.7 MCH 29.6 MCHC 32.0 RDW Std Deviation 47.4 H RDW Coeff of Tia 14.0 Plt Count 360 MPV 9.5 Immature Gran % (Auto) 0.800 Neut % (Auto) 86.3 H Lymph % (Auto) 4.1 L [place] % (Auto) 8.4 Eos % (Auto) 0.1 Baso % (Auto) 0.3 Absolute Neuts (auto) 16.2 H Absolute Lymphs (auto) 0.76 L Nucleated RBC % 0 Differential Comment SCANNED Diff Path Review May foll Sodium 139 Potassium 4.8 Chloride 111 H Carbon Dioxide 22.0 Anion Gap 7 BUN 52 H Creatinine 1.43 H Estim Creat Clear Calc 24.70 Est GFR (MDRD) Af Amer 45 L Est GFR (MDRD) Non-Af 37 L BUN/Creatinine Ratio 36.4 H Glucose 162 H Calcium 8.1 L Total Bilirubin 0.20 AST 19 ALT 21 Alkaline Phosphatase 68 Total Protein 6.4 Albumin 2.9 L Globulin 3.5 Albumin/Globulin Ratio 0.8 L Lipase 51 Urine Color Yellow Urine Clarity Clear Urine pH 6.0 Ur Specific [place] 1.010 Urine Protein 15 H Urine Glucose (UA) Normal Urine Ketones Negative Urine Occult Blood Negative Urine Nitrite Negative Urine Bilirubin Negative Urine Urobilinogen Normal Ur Leukocyte Esterase 25 H Urine RBC 0 SEEN Urine WBC 0-5 SEEN Ur Squamous Epith Cells 0 SEEN Urine Bacteria RARE Urine Mucus 0 SEEN Radiography Diagnostic Testing: Clinical Impression(s) from Imaging Studies Abdomen/Pelvis CT 05/29/24 20:05 IMPRESSION: Mild wall thickening with inflammation involving the left hemicolon, suggestive of colitis. Moderate colonic stool burden. Electronically Signed: Morris Malik MD at 22:13 EDT Reading Location ID and State: [facility] / [place] Tel , Service support , Discharge Plan Triage Chief Complaint: Weakness ED Provider: Flakito Chapman Dx/Rx/DC Orders Prescriptions: No Action cholecalciferol (vitamin D3) 10 mcg (400 unit) capsule 10 mcg PO DAILY ascorbic acid (vitamin C) 500 mg capsule 500 mg PO DAILY clonidine HCl 0.2 mg tablet 0.2 mg PO QHS diltiazem HCl 120 mg capsule,extended release 24hr 240 mg PO DAILY duloxetine 30 mg capsule,delayed release(DR/EC) 30 mg PO QHS ferrous gluconate 324 mg (38 mg iron) tablet 324 mg PO DAILY Eliquis 2.5 mg tablet 2.5 mg PO Q12H Trulicity 1.5 mg/0.5 mL pen injector 1.5 mg subcut .weekly Rx Instructions: takes on Friday (did not take this Friday) albuterol sulfate 2.5 MG/3 ML solution for nebulization 2.5 mg INHALATION Q4H PRN PRN (Reason: COPD) clopidogrel 75 mg tablet 75 mg PO DAILY glipizide 2.5 mg tablet extended release 24hr 2.5 mg PO DAILY pantoprazole 40 mg tablet,delayed release (DR/EC) 40 mg PO DAILY fluticasone propion-salmeterol 250-50 mcg/dose blister with device 1 inh INHALATION BID Qty: 60 0RF albuterol sulfate 90 mcg/actuation HFA aerosol inhaler 2 inh INHALATION Q4H PRN Qty: 18 0RF Primary Care Provider: Jeff Suresh NP Referrals: Baltes,Jeff ENAMEL BUFFER, ENAMEL BUFFER-C [Primary Care Provider] - Print Language: Hungarian
[2024-05-29 20:15] LABS: Mucous, Urine 0 SEEN /hpf (<or=2+); Red Blood Cells-Urine 0 SEEN /hpf (0-5); Squamous Epithelial Cells - UA 0 SEEN /hpf (5-10)
[2024-05-29 20:16] LABS: Color, Urine Yellow (Yellow); Glucose, Dipstick Normal (Normal); Ketone-Dipstick Negative (Negative); Leukocyte Esterase-Dipstick 25 /ul (Negative); Nitrite-Dipstick Negative (Negative); Occult Blood-Urine Negative /ul (Negative); Protein-Dipstick 15 mg/dl (Negative); Urine Bilirubin Dipstick Negative (Negative); Urine Clarity Clear (Clear); Urine Urobilinogen Normal (Normal)
[2024-05-29] MEDS: 0.9% Normal Saline (500mL Bag) 500 ML 999 ML IV (20:18)
[2024-05-29] MEDS: Ondansetron 4 MG/2 ML Vial IV (20:19)
[2024-05-29] MEDS: Morphine 4 MG/ML Syringe IV (20:19)
[2024-05-29 20:21] LABS: Bacteria RARE /hpf (None Seen); White Blood Cells 0-5 SEEN /hpf (0-5)
[2024-05-29 20:45] LABS: Absolute Lymphocyte Count 0.76 X10^3/uL (0.83-4.51); Absolute Neutrophil Count 16.2 X10^3/uL (2.0-7.7); Basophil# 0.06 X10^3/uL; Basophil% 0.3 % (0-1); Eosinophil# 0.01 X10^3/uL; Eosinophils% 0.1 % (0-5); Hematocrit 26.6 % (37-47); Hemoglobin 8.5 g/dL (12.0-15.0); Lymphocyte # 0.76 X10^3/ul (0.83-4.51); Lymphocyte % 4.1 % (19-41); Mean Corpuscular Hgb 29.6 pg (27.0-32.0); Mean Corpuscular Volume 92.7 fL (81-99); Mean Platelet Vol. 9.5 fl (6.2-12.0); Monocyte# 1.58 X10^3/uL; Monocyte% 8.4 % (0-10); NRBC Flagged by Analyzer 0 % (0-5); Neutrophil # 16.19 X10^3/uL (2.7-7.7); Neutrophil % 86.3 % (47-70); POSITIVE DIFFERENTIAL YES; Platelet Count 360 K/mm3 (150-450); RBC Distribution Width SD 47.4 fl (35.1-43.9); Red Blood Count 2.87 M/mm3 (4.2-5.4); White Blood Count 18.8 K/mm3 (4.4-11.0)
[2024-05-29 20:54] LABS: Differential Indicated SCAN CRITERIA MET
[2024-05-29 21:00] VITALS: PULSE 97; RESP 22; O2SAT 96
[2024-05-29 21:33] LABS: ALB/GLOB Ratio 0.8 RATIO (0.9-2.4); AST(SGOT) 19 U/L (15-37); Alanine Aminotransfer ALT/SGPT 21 U/L (13-56); Albumin, Serum 2.9 g/dL (3.2-5.0); Alkaline Phosphatase 68 U/L (45-117); Anion Gap 7 (5-15); BUN 52 mg/dL (7-18); BUN/Creat Ratio 36.4 RATIO (10-20); Calcium,Total 8.1 mg/dL (8.5-10.1); Chloride 111 mmol/L (98-107); Creatinine, Serum 1.43 mg/dL (0.55-1.02); EST Glomerular Filtration Rate 37 mL/min (>60); Est Glom Filt Rate - Afr Amer 45 mL/min (>60); Globulin 3.5 g/dL (2.2-4.2); Glucose 162 mg/dL (74-106); Lipase 51 U/L (13-75); Potassium 4.8 mmol/L (3.5-5.1); Protein, Total 6.4 g/dL (6.4-8.2); Sodium Level 139 mmol/L (136-145)
[2024-05-29 22:03] LABS: Differential Comment SCANNED
[2024-05-29 22:53] VITALS: BP 126/51; PULSE 97; RESP 22; TEMP 36.6; O2SAT 96
[2024-05-29 23:00] VITALS: BP 121/67
[2024-05-31 14:24] LABS: Pathologist Review Reviewed
== END 2024-05-29 23:10 | disposition home or self-care (01) ==
PROVIDERS: Emergency Provider Emergency Medicine; PCP Nurse Practitioner Primary Care; Visit Provider Emergency Medicine
DX: R10.30 Lower abdominal pain, unspecified (principal); J44.9 Chronic obstructive pulmonary disease, unspecified; I48.91 Unspecified atrial fibrillation; E11.51 Type 2 diabetes mellitus with diabetic peripheral angiopathy without gangrene; E11.22 Type 2 diabetes mellitus with diabetic chronic kidney disease; E11.40 Type 2 diabetes mellitus with diabetic neuropathy, unspecified; K59.00 Constipation, unspecified; R53.1 Weakness; N18.9 Chronic kidney disease, unspecified; I12.9 Hypertensive chronic kidney disease with stage 1 through stage 4 chronic kidney disease, or unspecified chronic kidney disease; E78.5 Hyperlipidemia, unspecified; Z79.01 Long term (current) use of anticoagulants; Z79.02 Long term (current) use of antithrombotics/antiplatelets; Z79.899 Other long term (current) drug therapy; Z86.73 Personal history of transient ischemic attack (TIA), and cerebral infarction without residual deficits; Z87.891 Personal history of nicotine dependence; Z95.820 Peripheral vascular angioplasty status with implants and grafts
CPT/HCPCS: 74177; 80053; 81001; 83690; 85025; 96361; 96374; 96375; 99283; J7040; Q9967; A4216; J2405

== ENCOUNTER → 2024-07-14 | Outpatient (CLI) | payer MEDICARE, MEDICAID, SELFPAY | END | disposition home or self-care (01) | PROVIDERS: PCP Nurse Practitioner Primary Care; Referring Provider Nurse Practitioner Family; Visit Provider Nurse Practitioner Family | DX: J47.9 Bronchiectasis, uncomplicated (principal) | CPT/HCPCS: 87070; 87077; 87186; 87205 ==

== ENCOUNTER 2024-08-03 23:34 | Observation (INO) | payer MEDICARE, MEDICAID, SELFPAY ==
[2024-08-03 23:35] VITALS: BP 140/57; PULSE 88; RESP 18; TEMP 36.8; O2SAT 98
[2024-08-03 23:55] VITALS: BMI 25.9
[2024-08-03 23:58] VITALS: O2SAT 98
--- NOTE | 2024-08-03 23:59 | EKG12_ITS ---
Test Reason : DYSRHYTHMIA Blood Pressure : */* mmHG Vent. Rate : 85 BPM Atrial Rate : 85 BPM P-R Int : 184 ms QRS Dur : 70 ms QT Int : 350 ms P-R-T Axes : 69 15 57 degrees QTcB Int : 416 ms Normal sinus rhythm Low voltage QRS Borderline ECG Confirmed by Juanito Lerma ([id number]), editorial project manager EAN DIAZ ([id number]) on 08/04/2024 9:27:23 AM Referred By: Confirmed By: Juanito Lerma
[2024-08-04] VITALS (14 sets, daily range): BP systolic 118–151; BP diastolic 50–67; PULSE 56–115; RESP 14–24; TEMP 36.3–36.9; O2SAT 94–100; BMI 25.7
--- NOTE | 2024-08-04 | RAD_ITS ---
INDICATION: cough, sob EXAMINATION/TECHNIQUE: X-RAY - XR Chest 2 Views COMPARISON: None. FINDINGS: LINES/DEVICES: None. LUNGS: No consolidation or evidence of an effusion. No evidence of edema or a pneumothorax. MEDIASTINUM AND CARDIOVASCULAR STRUCTURES: Cardiac silhouette is normal in size and contour. Mediastinum is unremarkable. BONES AND SOFT TISSUES: No acute abnormality. RAD/Chest PA and Lateral IMPRESSION: No evidence of acute cardiopulmonary disease. Electronically Signed: Mayur Hare DO at 1:26 EST ,
[2024-08-04] MEDS: Ipratropium/Albuterol Sulfate 3 ML AMPUL.NEB INHALATION ×4 (00:08→03:36)
[2024-08-04 00:28] LABS: Absolute Neutrophil Count 8.2 X10^3/uL (2.0-7.7); Basophil# 0.04 X10^3/uL; Basophil% 0.4 % (0-1); Hematocrit 28.1 % (37-47); Hemoglobin 8.5 g/dL (12.0-15.0); Lymphocyte % 4.4 % (19-41); Mean Corp Hgb Conc 30.2 g/dL (32-36); Mean Corpuscular Hgb 28.6 pg (27.0-32.0); Mean Corpuscular Volume 94.6 fL (81-99); Mean Platelet Vol. 9.4 fl (6.2-12.0); Monocyte# 0.27 X10^3/uL; NRBC Flagged by Analyzer 0 % (0-5); Neutrophil # 8.18 X10^3/uL (2.7-7.7); Neutrophil % 89.6 % (47-70); POSITIVE DIFFERENTIAL YES; Platelet Count 385 K/mm3 (150-450); RBC Distribution Width CV 16.2 % (11.6-14.6); RBC Distribution Width SD 55.8 fl (35.1-43.9); Red Blood Count 2.97 M/mm3 (4.2-5.4); White Blood Count 9.1 K/mm3 (4.4-11.0)
--- NOTE | 2024-08-04 00:33 | EDS_ITS ---
HPI History of Present Illness Chief Complaint: Shortness of Breath Narrative Narrative: Patient is a 83-year-old female with past medical history of diabetes, TIA, atrial fibrillation on Eliquis, hypertension, alcohol abuse, anxiety, depression, chronic kidney disease, peripheral arterial disease who presents to the emergency department chief complaint of cough and shortness of breath. Patient states that since [place] she has had cough and had shortness of breath however noted that the past several days her shortness of breath has acutely worsened. States that she currently is on Levaquin and on a steroid taper. States that things were not improving in fact she feels like she is getting much worse therefore she came here for further evaluation management. Patient states that she has been using her inhalers and nebulizers at home as well. Patient denies any sick contacts. [facility] Medical History Alcohol abuse Kidney disease Atrial fibrillation Hypertension TIA (transient ischemic attack) Primary osteoarthritis, right shoulder Right shoulder pain Wears glasses Wears dentures Alcohol use Diabetes Ambulates with cane Arthritis Restless legs Vaso vagal episode Dietary restriction COPD (chronic obstructive pulmonary disease) Former smoker Leg cramps PVD (peripheral vascular disease) History of edema History of stress test Cardiology follow-up encounter Neuropathy Iron deficiency History of TIA (transient ischemic attack) GERD (gastroesophageal reflux disease) GI bleed Depression Anxiety CKD (chronic kidney disease) Diabetes mellitus type II, controlled Hyperlipidemia Stage 3 severe COPD by GOLD classification Essential (primary) hypertension PAD (peripheral artery disease) Preoperative cardiovascular examination Nicotine dependence Abnormal electrocardiogram Bilateral carotid bruits Long-term use of high-risk medication COPD (chronic obstructive pulmonary disease) COPD with acute exacerbation Dyspnea Home Medications ?Medication ?Instructions ?Recorded ?Last Taken ?Type ascorbic acid (vitamin C) 500 mg 500 mg PO DAILY 11/28/22 10/28/23 History capsule cholecalciferol (vitamin D3) 10 10 mcg PO DAILY 11/28/22 10/28/23 History mcg (400 unit) capsule clopidogrel 75 mg tablet 75 mg PO DAILY 04/30/23 09/24/23 History glipizide 2.5 mg tablet, extended 2.5 mg PO DAILY 09/19/23 10/28/23 History release 24 hr pantoprazole 40 mg tablet,delayed 40 mg PO DAILY 09/19/23 10/29/23 History release fluticasone 250 mcg-salmeterol 50 1 inh inhalation BID #60 ea 11/04/23 Unknown Rx mcg/dose blistr powdr for inhalation apixaban 2.5 mg tablet (Eliquis) 2.5 mg PO Q12H 03/18/24 07/30/24 History clonidine HCl 0.2 mg tablet 0.2 mg PO QHS 03/18/24 Unknown History diltiazem HCl 120 mg 240 mg PO DAILY 03/18/24 Unknown History capsule,extended release 24 hr dulaglutide 1.5 mg/0.5 mL 1.5 mg subcut .weekly 03/18/24 Unknown History [facility] duloxetine 30 mg capsule,delayed 30 mg PO QHS 03/18/24 Unknown History release ferrous gluconate 324 mg (38 mg 324 mg PO DAILY 03/18/24 Unknown History iron) tablet guaifenesin 1,200 mg tablet, 1,200 mg PO Q12H #60 tabs 06/09/24 Unknown Rx extended release 12 hr albuterol sulfate 90 mcg/actuation 2 inh inhalation Q4H PRN COPD #18 07/06/24 Unknown Rx aerosol inhaler grams lisinopril 5 mg tablet 5 mg PO DAILY 07/14/24 Unknown History albuterol sulfate 2.5 mg/3 mL 2.5 mg (3 mL) inhalation Q4H PRN 07/30/24 Unknown Rx (0.083 %) solution for nebulization PRN COPD #90 mL ipratropium 0.5 mg-albuterol 3 mg 3 ml inhalation Q4H PRN shortness 07/30/24 Unknown History (2.5 mg base)/3 mL nebulization of breath or wheezing soln levofloxacin 750 mg tablet 750 mg PO Q24H #7 tabs 07/30/24 Unknown Rx nystatin 100,000 unit/mL oral 1 ml PO TID 5 days #60 mL 07/30/24 Unknown Rx suspension prednisone 10 mg tablet 10 mg PO QDAY #30 tabs 07/30/24 Unknown Rx spacer #1 ea 08/03/24 Unknown Rx Allergy/AdvReac Type Severity Reaction Status Date / Time ferrous sulfate Allergy Intermediate Other Verified 08/03/24 23:35 iron AdvReac Severe Low blood Verified 08/03/24 23:35 pressure gabapentin AdvReac Intermediate Pedal edema Verified 08/03/24 23:35 pregabalin (From Lyrica) AdvReac Intermediate Pedal edema Verified 08/03/24 23:35 codeine AdvReac Nausea Verified 08/03/24 23:35 Tetracyclines AdvReac Nausea Verified 08/03/24 23:35 Family History Sister CAD (coronary artery disease) Brother CAD (coronary artery disease) Mother Cancer Father , at age 70 secondary to GSW while hunting. No problems noted. Surgical History H/O shoulder surgery Hx of tubal ligation Hx of colonoscopy History of esophagogastroduodenoscopy (EGD) Right lower extremity angioplasty H/O foot surgery History of appendectomy History of total abdominal hysterectomy H/O tubal ligation H/O: hysterectomy H/O foot surgery History of appendectomy Social History household members: none Smoking Status: Former smoker quit date: 07/28/15 second hand exposure: Yes alcohol intake: never substance use type: does not use ROS ROS ED ROS Narrative Constitutional: Denies fevers, chills, headaches, lightness, dizziness Cardiovascular: Denies chest pain or palpitations Respiratory: Complains of shortness of breath and cough as noted above Abdomen: Denies abdominal pain nausea vomit diarrhea : Denies any urinary symptoms Neurological: Denies numbness, weakness, tingling Musculoskeletal: Denies back pain Skin: Denies rashes or lesions EXAM Physical Exam Narrative Exam Narrative: General: Patient lying in bed rest comfortably did not appear to be in acute distress Head: Atraumatic, normocephalic Eyes: PERRL bilaterally, EOMI bilaterally, no conjunctival injection noted Neck: Soft, supple, trachea midline Cardiovascular: Regular rate and rhythm no murmurs gallops rubs noted Respiratory: Patient has diminished air bilaterally Abdomen: Soft, nondistended, nontender to palpation Extremities: +4/5 strength noted in the bilateral upper and lower extremities, radial pulses +2/4 in the bilateral extremities, no pedal edema neuroexam Neurological: Patient following commands knew that she was at [facility] year is 2023 Skin: Warm, dry, intact no rashes or lesions noted Const Vital Signs: 08/03/24 23:35 08/03/24 23:58 08/03/24 23:59 Temperature 98.3 F Temperature Source Oral Pulse Rate 88 Respiratory Rate 18 Respiratory Effort Normal Non-Labored Respiratory Depth Normal Respiratory Pattern Normal Blood Pressure 140/57 H Blood Pressure Mean 84 Pulse Ox 98 Oxygen Delivery Method Room Air Room Air Room Air 08/04/24 00:08 08/04/24 01:31 08/04/24 02:00 Temperature 97.5 F L 97.7 F L Temperature Source Oral Oral Pulse Rate 95 100 88 Respiratory Rate 24 H 20 H 15 Respiratory Effort Respiratory Depth Respiratory Pattern Tachypnea Blood Pressure 118/55 L 123/53 H Blood Pressure Mean 76 76 Pulse Ox 100 98 Oxygen Delivery Method Room Air Room Air 08/04/24 03:00 08/04/24 03:24 Temperature 97.7 F L 97.7 F L Temperature Source Oral Pulse Rate 96 96 Respiratory Rate 18 18 Respiratory Effort Respiratory Depth Respiratory Pattern Blood Pressure 121/55 H 121/55 H Blood Pressure Mean 77 77 Pulse Ox 98 98 Oxygen Delivery Method Room Air MDM MDM MDM Narrative Medical decision making narrative: Patient is a 83-year-old female who presented to the emerged part with a chief complaint of dyspnea on exertion that is progressively worsening over the last several days with cough. Patient will have a workup performed here on the differential diagnose includes but not limited to CHF, COPD exacerbation, pneumonia, upper respiratory infection second viral etiology. Once again the patient is currently on a steroid taper and took her Levaquin today. Patient be given 3 DuoNebs here. There is concern for CHF therefore patient will not be given 30 cc/kg bolus of IV fluids. Patient CBC was reviewed showed no evidence leukocytosis white blood count normal at 9.1, hemoglobin was 8.5 which is stable compared to previous blood count, platelet count normal at 385. Patient's INR 1, PT of 13, sodium was low at 129 indicating hyponatremia, potassium was 5.5 however this was hemolyzed, creatinine was elevated 1.74 she has underlying chronic kidney disease. Patient's lactic acid was elevated 2.3, AST and ALT were 30 and 21 respectively. Patient's troponin normal at 5, EKG reviewed and independently interpreted by myself showed sinus rhythm with a rate of 85 bpm. Patient's urinalysis reviewed showed no evidence of infection. Patient's chest x-ray reviewed by myself and by radiology showed no acute cardiopulmonary processes. At this point time the patient states that ever since becoming ill few weeks ago she has been progressively getting weaker and weaker and not able to move around her house and take care of herself. Patient would like inpatient rehab for therapy. Patient case will be discussed with hospitalist. Discussed case with hospitalist Dr. Williamson who accept patient for admission. Patient notified as well as family member at bedside is agreeable this plan all question concerns answered. Lab Data Labs: Laboratory Results - last 24 hr 08/03/24 08/04/24 08/04/24 00:00 00:04 01:54 WBC 9.1 RBC 2.97 L Hgb 8.5 L Hct 28.1 L MCV 94.6 MCH 28.6 MCHC 30.2 L RDW Std Deviation 55.8 H RDW Coeff of Tia 16.2 H Plt Count 385 MPV 9.4 Immature Gran % (Auto) 2.600 H Neut % (Auto) 89.6 H Lymph % (Auto) 4.4 L Duchesne % (Auto) 3.0 Eos % (Auto) 0.0 Baso % (Auto) 0.4 Absolute Neuts (auto) 8.2 H Absolute Lymphs (auto) 0.40 L Nucleated RBC % 0 PT 13.1 INR 1.0 APTT 24.0 L Sodium 129 L Potassium 5.5 H Chloride 97 L Carbon Dioxide 23.0 Anion Gap 9 BUN 47 H Creatinine 1.74 H Estim Creat Clear Calc 20.60 Est GFR (MDRD) Af Amer 36 L Est GFR (MDRD) Non-Af 30 L BUN/Creatinine Ratio 27.0 H Glucose 293 H Lactic Acid 2.3 H* Calcium 8.0 L Total Bilirubin 0.20 AST 30 ALT 21 Alkaline Phosphatase 46 Troponin I High Sens 5 B-Natriuretic Peptide 93.3 Total Protein 6.2 L Albumin 2.9 L Globulin 3.3 Albumin/Globulin Ratio 0.9 Urine Color Straw Urine Clarity Clear Urine pH 6.0 Ur Specific Burt 1.010 Urine Protein Negative Urine Glucose (UA) 50 H Urine Ketones Negative Urine Occult Blood Negative Urine Nitrite Negative Urine Bilirubin Negative Urine Urobilinogen Normal Ur Leukocyte Esterase Negative Urine RBC 0 SEEN Urine WBC 0 SEEN Ur Squamous Epith Cells 0-5 SEEN Urine Bacteria 0 SEEN Urine Mucus 0 SEEN 08/04/24 03:14 WBC RBC Hgb Hct MCV MCH MCHC RDW Std Deviation RDW Coeff of Tia Plt Count MPV Immature Gran % (Auto) Neut % (Auto) Lymph % (Auto) Duchesne % (Auto) Eos % (Auto) Baso % (Auto) Absolute Neuts (auto) Absolute Lymphs (auto) Nucleated RBC % PT INR APTT Sodium Potassium Chloride Carbon Dioxide Anion Gap BUN Creatinine Estim Creat Clear Calc Est GFR (MDRD) Af Amer Est GFR (MDRD) Non-Af BUN/Creatinine Ratio Glucose Lactic Acid 1.5 Calcium Total Bilirubin AST ALT Alkaline Phosphatase Troponin I High Sens B-Natriuretic Peptide Total Protein Albumin Globulin Albumin/Globulin Ratio Urine Color Urine Clarity Urine pH Ur Specific Burt Urine Protein Urine Glucose (UA) Urine Ketones Urine Occult Blood Urine Nitrite Urine Bilirubin Urine Urobilinogen Ur Leukocyte Esterase Urine RBC Urine WBC Ur Squamous Epith Cells Urine Bacteria Urine Mucus Radiography Diagnostic Testing: Clinical Impression(s) from Imaging Studies Chest X-Ray 08/04/24 00:00 IMPRESSION: No evidence of acute cardiopulmonary disease. Electronically Signed: Mayur Hare DO at 1:26 EST , Discharge Plan Triage Chief Complaint: Shortness of Breath ED Provider: Roe Crews Dx/Rx/DC Orders Clinical Impression: Generalized weakness, Acute hyponatremia, Chronic kidney disease (CKD) Prescriptions: No Action cholecalciferol (vitamin D3) 10 mcg (400 unit) capsule 10 mcg PO DAILY ascorbic acid (vitamin C) 500 mg capsule 500 mg PO DAILY clonidine HCl 0.2 mg tablet 0.2 mg PO QHS diltiazem HCl 120 mg capsule,extended release 24hr 240 mg PO DAILY duloxetine 30 mg capsule,delayed release(DR/EC) 30 mg PO QHS ferrous gluconate 324 mg (38 mg iron) tablet 324 mg PO DAILY Eliquis 2.5 mg tablet 2.5 mg PO Q12H Trulicity 1.5 mg/0.5 mL pen injector 1.5 mg subcut .weekly Rx Instructions: takes on Friday (did not take this Friday) lisinopril 5 mg tablet 5 mg PO DAILY ipratropium-albuterol 0.5 mg-3 mg(2.5 mg base)/3 mL solution for nebulization 3 ml inhalation Q4H PRN (Reason: shortness of breath or wheezing) levofloxacin 750 mg tablet 750 mg PO Q24H Qty: 7 0RF prednisone 10 mg tablet 10 mg PO QDAY Qty: 30 0RF Rx Instructions: take 4 tabs for three days, then 3 tabs for three days, then 2 tabs for three days, then 1 tab for 3 days nystatin 100,000 unit/mL suspension 1 ml PO TID 5 Days Qty: 60 0RF Rx Instructions: swish and swallow (DME) spacer See Rx Instructions .Route .MEDSUPPLY Qty: 1 0RF Rx Instructions: As directed clopidogrel 75 mg tablet 75 mg PO DAILY glipizide 2.5 mg tablet extended release 24hr 2.5 mg PO DAILY pantoprazole 40 mg tablet,delayed release (DR/EC) 40 mg PO DAILY fluticasone propion-salmeterol 250-50 mcg/dose blister with device 1 inh INHALATION BID Qty: 60 0RF guaifenesin 1,200 mg tablet extended release 12hr 1,200 mg PO Q12H Qty: 60 6RF albuterol sulfate 90 mcg/actuation HFA aerosol inhaler 2 inh INHALATION Q4H PRN Qty: 18 6RF albuterol sulfate 2.5 mg /3 mL (0.083 %) solution for nebulization 2.5 mg INHALATION Q4H PRN PRN (Reason: COPD) Qty: 90 3RF Primary Care Provider: Jeff Suresh NP Referrals: Jeff Suresh NP, [employer] [facility] [employer] [Primary Care Provider] - Print Language: Chinese Disposition Disposition: Acute Care Hospital [facility]
[2024-08-04 00:36] LABS: Prothrombin Time (Protime)PT. 13.1 SECONDS (11.7-14.9)
--- NOTE | 2024-08-04 00:42 | CPS ---
x3 total Duonebs given in ER
[2024-08-04 00:52] LABS: BNP,B-Type NATRIURETIC PEPTIDE 93.3 pg/mL (0-100)
[2024-08-04 00:58] LABS: Lactic Acid 2.3 mmol/L (0.4-1.9)
[2024-08-04 00:58] LABS: ALB/GLOB Ratio 0.9 RATIO (0.9-2.4); AST(SGOT) 30 U/L (15-37); Alanine Aminotransfer ALT/SGPT 21 U/L (13-56); Albumin, Serum 2.9 g/dL (3.2-5.0); Alkaline Phosphatase 46 U/L (45-117); Anion Gap 9 (5-15); BUN 47 mg/dL (7-18); Chloride 97 mmol/L (98-107); Creatinine, Serum 1.74 mg/dL (0.55-1.02); EST Glomerular Filtration Rate 30 mL/min (>60); Est Glom Filt Rate - Afr Amer 36 mL/min (>60); Globulin 3.3 g/dL (2.2-4.2); Glucose 293 mg/dL (74-106); Potassium 5.5 mmol/L (3.5-5.1); Protein, Total 6.2 g/dL (6.4-8.2); Sodium Level 129 mmol/L (136-145); Troponin-I HS 5 pg/mL (3.0-54.0)
[2024-08-04] MEDS: 0.9% Normal Saline (1000mL) 1,000 ML 999 ML IV (01:17)
[2024-08-04 02:00] LABS: Bacteria 0 SEEN /hpf (None Seen); Mucous, Urine 0 SEEN /hpf (<or=2+); Red Blood Cells-Urine 0 SEEN /hpf (0-5); White Blood Cells 0 SEEN /hpf (0-5)
[2024-08-04 02:01] LABS: Color, Urine Straw (Yellow); Glucose, Dipstick 50 mg/dl (Normal); Ketone-Dipstick Negative (Negative); Leukocyte Esterase-Dipstick Negative /ul (Negative); Nitrite-Dipstick Negative (Negative); Occult Blood-Urine Negative /ul (Negative); Protein-Dipstick Negative (Negative); Urine Bilirubin Dipstick Negative (Negative); Urine Clarity Clear (Clear); Urine Urobilinogen Normal (Normal)
[2024-08-04 02:47] LABS: Squamous Epithelial Cells - UA 0-5 SEEN /hpf (5-10)
[2024-08-04 03:47] LABS: Lactic Acid 1.5 mmol/L (0.4-1.9)
--- NOTE | 2024-08-04 03:47 | PCM.HP.STD ---
[facility] - General General Date of Admission: 08/04/24 Date of Service: 08/04/24 Chief Complaint: Worsening shortness of breath with cough HPI Narrative ANSON CAPPS, is a 83 F who presented to [facility] ED on 08/04/2024 with worsening shortness of breath and cough. Patient has history of stage III COPD with bronchiectasis, follows with outpatient pulmonology. She saw pulm PEDICAB DRIVER in the office on 07/14 and was diagnosed with a COPD/bronchiectasis exacerbation. She was treated with a short course of steroids and antibiotics and it was recommended that she increase hydration, continue scheduled Mucinex and restart using vest therapy on a consistent basis. Sputum culture from that visit grew pansensitive Pseudomonas. She had a follow-up visit with pulm PEDICAB DRIVER on 07/30 and noted that she felt better on steroids and antibiotics but then worsened again shortly after those courses were completed. She was prescribed a 7-day course of Levaquin and a longer steroid taper at that time. However, she has continued to have symptoms and has felt weaker than her normal so she came in today for further evaluation. In the ED she was afebrile and hemodynamically stable on room air. Labs were notable for sodium 129, potassium 5.5, chloride 97, creatinine 1.74 (baseline around 1.4), glucose 293, lactic acid 2.3. UA was unremarkable. Chest x-ray was unremarkable. Given concern for worsening weakness and not able to take care of herself at home, hospitalist was contacted for admission. I saw the patient at bedside in the ED, daughter was present. Patient was mildly fatigued appearing but otherwise sitting up comfortably in bedside chair, conversing normally, in no acute distress. She was breathing comfortably on room air at rest. She did have bilateral crackles noted on lung auscultation had several coughing episodes with mild sputum production during my encounter with her. She notes that on higher doses of steroids she feels more weak and jittery. She has been drinking lots of fluids but also urinating very frequently over the past several days. She denies any fevers or chills currently. Denies any other acute concerns. [facility] Medical History Alcohol abuse Kidney disease Atrial fibrillation Hypertension TIA (transient ischemic attack) Primary osteoarthritis, right shoulder Right shoulder pain Wears glasses Wears dentures Alcohol use Diabetes Ambulates with cane Arthritis Restless legs Vaso vagal episode Dietary restriction COPD (chronic obstructive pulmonary disease) Former smoker Leg cramps PVD (peripheral vascular disease) History of edema History of stress test Cardiology follow-up encounter Neuropathy Iron deficiency History of TIA (transient ischemic attack) GERD (gastroesophageal reflux disease) GI bleed Depression Anxiety CKD (chronic kidney disease) Diabetes mellitus type II, controlled Hyperlipidemia Stage 3 severe COPD by GOLD classification Essential (primary) hypertension PAD (peripheral artery disease) Preoperative cardiovascular examination Nicotine dependence Abnormal electrocardiogram Bilateral carotid bruits Long-term use of high-risk medication COPD (chronic obstructive pulmonary disease) COPD with acute exacerbation Dyspnea Home Medications ?Medication ?Instructions ?Recorded ?Last Taken ?Type ascorbic acid (vitamin C) 500 mg 500 mg PO DAILY 11/28/22 08/03/24 History capsule cholecalciferol (vitamin D3) 10 10 mcg PO DAILY 11/28/22 08/03/24 History mcg (400 unit) capsule clopidogrel 75 mg tablet 75 mg PO DAILY 04/30/23 08/03/24 History glipizide 2.5 mg tablet, extended 2.5 mg PO DAILY 09/19/23 08/03/24 History release 24 hr pantoprazole 40 mg tablet,delayed 40 mg PO DAILY 09/19/23 08/03/24 History release fluticasone 250 mcg-salmeterol 50 1 inh inhalation BID #60 ea 11/04/23 08/03/24 Rx mcg/dose blistr powdr for inhalation apixaban 2.5 mg tablet (Eliquis) 2.5 mg PO Q12H 03/18/24 07/30/24 History clonidine HCl 0.2 mg tablet 0.2 mg PO QHS 03/18/24 08/03/24 History diltiazem HCl 120 mg 240 mg PO DAILY 03/18/24 08/03/24 History capsule,extended release 24 hr dulaglutide 1.5 mg/0.5 mL 1.5 mg subcut .weekly 03/18/24 08/01/24 History subcutaneous pen injector (Trulicity) duloxetine 30 mg capsule,delayed 30 mg PO QHS 03/18/24 08/03/24 History release ferrous gluconate 324 mg (38 mg 324 mg PO DAILY 03/18/24 08/03/24 History iron) tablet guaifenesin 1,200 mg tablet, 1,200 mg PO Q12H #60 tabs 06/09/24 08/03/24 Rx extended release 12 hr albuterol sulfate 90 mcg/actuation 2 inh inhalation Q4H PRN COPD #18 07/06/24 Unknown Rx aerosol inhaler grams lisinopril 5 mg tablet 5 mg PO DAILY 07/14/24 08/03/24 History albuterol sulfate 2.5 mg/3 mL 2.5 mg (3 mL) inhalation Q4H PRN 07/30/24 Unknown Rx (0.083 %) solution for nebulization PRN COPD #90 mL ipratropium 0.5 mg-albuterol 3 mg 3 ml inhalation Q4H PRN shortness 07/30/24 08/03/24 History (2.5 mg base)/3 mL nebulization of breath or wheezing soln levofloxacin 750 mg tablet 750 mg PO Q24H #7 tabs 07/30/24 08/03/24 Rx nystatin 100,000 unit/mL oral 1 ml PO TID 5 days #60 mL 07/30/24 08/03/24 Rx suspension prednisone 10 mg tablet 10 mg PO QDAY #30 tabs 07/30/24 08/03/24 Rx spacer #1 ea 08/03/24 Unknown Rx Allergy/AdvReac Type Severity Reaction Status Date / Time ferrous sulfate Allergy Intermediate Other Verified 08/03/24 23:35 iron AdvReac Severe Low blood Verified 08/03/24 23:35 pressure gabapentin AdvReac Intermediate Pedal edema Verified 08/03/24 23:35 pregabalin (From Lyrica) AdvReac Intermediate Pedal edema Verified 08/03/24 23:35 codeine AdvReac Nausea Verified 08/03/24 23:35 Tetracyclines AdvReac Nausea Verified 08/03/24 23:35 Family History Sister CAD (coronary artery disease) Brother CAD (coronary artery disease) Mother Cancer Father , at age 70 secondary to GSW while hunting. No problems noted. Surgical History H/O shoulder surgery Hx of tubal ligation Hx of colonoscopy History of esophagogastroduodenoscopy (EGD) Right lower extremity angioplasty H/O foot surgery History of appendectomy History of total abdominal hysterectomy H/O tubal ligation H/O: hysterectomy H/O foot surgery History of appendectomy Social History household members: none Smoking Status: Former smoker quit date: 07/28/15 second hand exposure: Yes alcohol intake: never substance use type: does not use ROS Constitutional Constitutional: Reports fatigue and weakness; Denies chills or fever(s) Eyes Eyes: Denies change in vision ENT HEENT: Denies nasal congestion, nasal discharge, sinus pressure or sore throat Cardiovascular Cardiovascular: Denies chest pain, edema or lightheadedness Respiratory/Chest Respiratory/Chest: Reports cough, productive cough and shortness of breath with exertion; Denies shortness of breath at rest or wheezing Gastrointestinal Gastrointestinal: Denies abdominal pain Genitourinary Genitourinary: Reports urinary frequency; Denies dysuria Musculoskeletal Musculoskeletal: Denies arthralgias or myalgias Neurologic Neurologic: Denies dizziness, focal weakness or headache(s) Endocrine Endocrinology: Reports polydipsia and polyuria Vital Signs Vital Signs Vital Signs: 08/03/24 23:35 08/03/24 23:58 08/03/24 23:59 Temperature 98.3 F Temperature Source Oral Pulse Rate 88 Respiratory Rate 18 Respiratory Effort Normal Non-Labored Respiratory Depth Normal Respiratory Pattern Normal Blood Pressure 140/57 H Blood Pressure Mean 84 Pulse Ox 98 Oxygen Delivery Method Room Air Room Air Room Air 08/04/24 00:08 08/04/24 01:31 08/04/24 02:00 Temperature 97.5 F L 97.7 F L Temperature Source Oral Oral Pulse Rate 95 100 88 Respiratory Rate 24 H 20 H 15 Respiratory Effort Respiratory Depth Respiratory Pattern Tachypnea Blood Pressure 118/55 L 123/53 H Blood Pressure Mean 76 76 Pulse Ox 100 98 Oxygen Delivery Method Room Air Room Air 08/04/24 03:00 08/04/24 03:24 Temperature 97.7 F L 97.7 F L Temperature Source Oral Pulse Rate 96 96 Respiratory Rate 18 18 Respiratory Effort Respiratory Depth Respiratory Pattern Blood Pressure 121/55 H 121/55 H Blood Pressure Mean 77 77 Pulse Ox 98 98 Oxygen Delivery Method Room Air Weight Weight: 60.4 kg Body Mass Index (BMI) 25.9 Physical Exam Const alert, oriented x3, no apparent distress and average body habitus Constitutional Narrative: Elderly female, mildly fatigued appearing, otherwise sitting up comfortably in bed, conversing normally, no acute distress. General Appearance: cooperative and comfortable HEENT normocephalic, head/scalp atraumatic, hearing grossly normal bilaterally, nasal mucous membranes and turbinates normal and moist oral mucous membranes Eyes PERRL, EOMs intact bilaterally and conjunctivae normal Neck full ROM Chest inspection of chest normal Resp normal respiratory effort and no use of accessory muscles Resp Narrative: Breathing comfortably on room air at rest. Crackles noted bilaterally in mid and lower lung zones, otherwise good air movement throughout. Cardio regular rate, regular rhythm, no murmurs and peripheral pulses 2+ throughout GI normal to inspection, nondistended, normoactive bowel sounds, soft to palpation, non-tender and non-distended Back/Spine normal ROM Extremity normal to inspection and no pedal edema Skin no rashes or lesions noted Neuro moves all extremities and no focal motor deficits Psych mental status grossly normal Results Lab / Micro Data 08/03/24 00:00 08/03/24 00:00 Labs: Laboratory Results - last 24 hr 08/03/24 00:00: WBC 9.1, RBC 2.97 L, Hgb 8.5 L, Hct 28.1 L, MCV 94.6, MCH 28.6, MCHC 30.2 L, RDW Std Deviation 55.8 H, RDW Coeff of Tia 16.2 H, Plt Count 385, MPV 9.4, Immature Gran % (Auto) 2.600 H, Neut % (Auto) 89.6 H, Lymph % (Auto) 4.4 L, [place] % (Auto) 3.0, Eos % (Auto) 0.0, Baso % (Auto) 0.4, Absolute Neuts (auto) 8.2 H, Absolute Lymphs (auto) 0.40 L, Nucleated RBC % 0, PT 13.1, INR 1.0, APTT 24.0 L, Sodium 129 L, Potassium 5.5 H, Chloride 97 L, Carbon Dioxide 23.0, Anion Gap 9, BUN 47 H, Creatinine 1.74 H, Estim Creat Clear Calc 20.60, Est GFR (MDRD) Af Amer 36 L, Est GFR (MDRD) Non-Af 30 L, BUN/Creatinine Ratio 27.0 H, Glucose 293 H, Calcium 8.0 L, Total Bilirubin 0.20, AST 30, ALT 21, Alkaline Phosphatase 46, Troponin I High Sens 5, B-Natriuretic Peptide 93.3, Total Protein 6.2 L, Albumin 2.9 L, Globulin 3.3, Albumin/Globulin Ratio 0.9 08/04/24 00:04: Lactic Acid 2.3 H* 08/04/24 01:54: Urine Color Straw, Urine Clarity Clear, Urine pH 6.0, Ur Specific [place] 1.010, Urine Protein Negative, Urine Glucose (UA) 50 H, Urine Ketones Negative, Urine Occult Blood Negative, Urine Nitrite Negative, Urine Bilirubin Negative, Urine Urobilinogen Normal, Ur Leukocyte Esterase Negative, Urine RBC 0 SEEN, Urine WBC 0 SEEN, Ur Squamous Epith Cells 0-5 SEEN, Urine Bacteria 0 SEEN, Urine Mucus 0 SEEN 08/04/24 03:14: Lactic Acid 1.5 Micro: Microbiology 08/03/24 01:14 Mucosa - Nose SARS-CoV-2, Influenza & RSV (PCR) - Final Imaging Radiology Impression Chest X-Ray 08/04/24 00:00 IMPRESSION: No evidence of acute cardiopulmonary disease. Electronically Signed: Mayur Hare DO at 1:26 EST Reading Location ID and State: [facility] / [place] Tel , Service support , Assessment & Plan Assessment/Plan (1) Generalized weakness: (2) COPD exacerbation: (3) Bronchiectasis: QUALIFIERS: Bronchiectasis type: uncomplicated Qualified Code(s): J47.9 - Bronchiectasis, uncomplicated (4) Acute hyponatremia: PLAN: Plan Patient is an 83-year-old female who presented [facility] ED on 08/04/2024 with worsening shortness of breath and cough with weakness. 1. Generalized weakness ? Admit under observation status to MedSurg. PT/OT/case management consulted. Suspect worsening weakness secondary to recent mild COPD exacerbations and courses of steroids. Appreciate therapy recommendations. 2. Mild exacerbation of COPD/bronchiectasis ? Follows with outpatient pulmonology. Had worsening shortness of breath with cough and completed short course of steroids and antibiotics in June. Had sputum culture that grew pansensitive Pseudomonas that was treated appropriately with antibiotics. Saw pulmonology again in early July and was started on a longer prednisone taper with Levaquin. Will continue prednisone at 20 mg daily and continue Levaquin for now. Chest physiotherapy and scheduled Mucinex ordered. 3. Mild creatinine elevation in setting of CKD stage IIIb ? Creatinine 1.74 on admit, baseline around 1.4. Presume secondary to mild dehydration in setting of frequent urination from elevated blood sugars. Given IV fluids in the ED, follow-up a.m. BMP and monitor urine output. 4. Hyponatremia ? Sodium 129 on admit, baseline normal. Chloride mildly low at 97. Suspect secondary to dehydration. Given IV fluids on admission, follow-up a.m. sodium level. 5. Type 2 diabetes mellitus with hyperglycemia ? Blood glucose 293 on admit. Presume this is elevated due to recent steroids. Holding home medications and will treat with sliding scale insulin with meals while inpatient. 6. Elevated lactic acid, resolved ? Lactic acid 2.3 on admit, improved to 1.5 with IV fluid administration. 7. History of PAD with stenting, hypertension, hyperlipidemia, history of TIAs ? Stable. Continue home Plavix. Will hold home lisinopril for today. Not on statin for unclear reason. 8. Paroxysmal A-fib ? Mild A-fib with RVR on admit, improved with IV fluids. Continue home Eliquis and diltiazem. 9. Depression with anxiety ? Stable. Continue home duloxetine. 10. GERD ? Continue home PPI. DVT prophylaxis: Not indicated, on Eliquis CODE STATUS: Full code, verified Expected position: Home, 1 to 2 days Total clinical time spent by myself addressing the patient's medical issues, reviewing all the data, and collaborating with patient's care team: 55 minutes. Charges/Coding Visit Charges Inpatient E&M: 26510 Init Hosp L2
[2024-08-04 04:00] LABS: Reflex Lactate? N
[2024-08-04] MEDS: Ferrous Gluconate 324 MG Tablet PO (09:47)
[2024-08-04] MEDS: predniSONE 20 MG Tablet PO (09:47)
[2024-08-04] MEDS: levoFLOXacin 750 MG Tablet PO (09:47)
[2024-08-04] MEDS: NYSTATIN 500,000 UNIT/5 ML UDC 500000 UNIT PO ×3 (09:47→21:55)
[2024-08-04 09:48] LABS: Anion Gap 9 (5-15); BUN 37 mg/dL (7-18); BUN/Creat Ratio 34.3 RATIO (10-20); Calcium,Total 8.4 mg/dL (8.5-10.1); Chloride 106 mmol/L (98-107); Creatinine, Serum 1.08 mg/dL (0.55-1.02); EST Glomerular Filtration Rate 52 mL/min (>60); Est Glom Filt Rate - Afr Amer 63 mL/min (>60); Estimated Creatinine Clearance 33.03 ml/min; Glucose 112 mg/dL (74-106); Potassium 3.7 mmol/L (3.5-5.1); Sodium Level 139 mmol/L (136-145)
[2024-08-04] MEDS: APIXABAN 2.5 MG TABLET (WCH) PO ×2 (09:48→21:55)
[2024-08-04] MEDS: dilTIAZem CD 240 MG Capsule PO (09:48)
[2024-08-04] MEDS: guaiFENesin 1,200 MG Tablet 1200 MG PO ×2 (09:49→21:55)
[2024-08-04] MEDS: Pantoprazole Sodium 40 MG Tablet PO (09:49)
[2024-08-04] MEDS: Clopidogrel Bisulfate 75 MG Tablet PO (09:49)
[2024-08-04] MEDS: Ascorbic Acid 500 MG Tablet PO (09:49)
--- NOTE | 2024-08-04 11:35 | CASEMGMT ---
OTONIEL CROWLEY Face to Face with patient for initial transition planning/care coordination assessment. OTONIEL CROWLEY introduced self and role at [facility]. Patient lying in bed, alert and oriented, daughter at bedside. Patient willing to participate in assessment and is able to answer all questions appropriately. Care providers, pharmacy, and demographics verified. Strata: 3 PCP: [facility] Specialists: Ameya, GI; Reilly, electric arc welder; Daija, vascular; Luke Pendleton, dust operator; Sudhir, Elementary School Science Teacher; Avery, manager grant Preferred Pharmacy: [facility] retail at discharge. Insurance: [employer] Prescription Benefit: yes Living Will/HPOA: yes, daughter Jaylene LNOK: daughters Living Arrangements: Patient lives alone in a 3rd floor apartment with elevator. Patient states she is independent at home. Transportation: daughters DME/HHC: Patient has shower chair, cane, grab bars, walker, rollator, wheelchair, and nebulizer at home. Patient had been to [facility] in the past. Patient has had [facility] in the past. Patient wishes to discharge to TCU for additional therapy, declined list. OTONIEL CROWLEY updated patient and daughter that referral will be sent but could not guarantee acceptance, patient and daughter voiced understanding. Patient states she has no further needs or concerns at this time. OTONIEL CROWLEY updated SW regarding request for TCU. CM to follow for discharge planning needs that may arise. Disposition Plan: TCU pending acceptance and precert. Renetta BEARD, RN, CM
--- NOTE | 2024-08-04 12:26 | CASEMGMT ---
SW was informed by RN KEO that patient and her daughter would like patient to go to [facility]. Unfortunately [facility] does not take patient's insurance. SW met with patient and her daughter. Introduced self and role at [facility]. SW explained that [facility] does not take patient's insurance. SW then provided patient with a list of half-way facility providers including quality and resource use data and consistent with patient?s preferred geographic region, medical needs, and insurance network were provided from the [employer] Guide. Patient's daughter said they would like a hospital based facility. ALBA explained that right now [facility] and [place] are full. SW explained SW will need 3-4 preferences and then SW will take care of contacting facilities. Plan: SNF pending patient choices, accepting facility, and pre-cert. Janae OLSEN
[2024-08-04 12:32] LABS: Bedside Glucose 140 mg/dL (74-106)
[2024-08-04 12:32] LABS: Bedside Glucose 113 mg/dL (74-106)
--- NOTE | 2024-08-04 13:12 | CASEMGMT ---
Met with patient to complete POLLACK form. POLLACK form explained to patient who voiced understanding and signed form. Original form placed in pt?s chart and copy provided to patient. Ashely Manley, Discharge Planning Asst
[2024-08-04] MEDS: Albuterol 2.5 MG/3 ML VIAL.NEB. INHALATION ×2 (13:47→20:47)
--- NOTE | 2024-08-04 15:06 | PCM.HOSP.N ---
Hospitalist Note Patient reports her breathing is a little bit better, still feeling generally weak. Patient work with physical therapy and is agreeable to placement, referral to be sent
[2024-08-04] MEDS: Insulin Lispro 100 UNIT/ML INSULN.PEN SC ×2 (17:30→21:53)
--- NOTE | 2024-08-04 21:26 | CPS ---
Patient using own vest therapy brought in from home during aerosal treatment.
[2024-08-04] MEDS: DULoxetine Hcl 30 MG Capsule PO (21:55)
[2024-08-05] VITALS (9 sets, daily range): BP systolic 140–177; BP diastolic 60–85; PULSE 101–114; RESP 16–20; TEMP 36.3–36.9; O2SAT 94–96
[2024-08-05 00:09] LABS: Bedside Glucose 251 mg/dL (74-106)
[2024-08-05 00:09] LABS: Bedside Glucose 170 mg/dL (74-106)
[2024-08-05] MEDS: Sodium Chloride 0.65% 1 SPRAY SPRAY.BTL NASAL (01:42)
[2024-08-05] MEDS: Albuterol 2.5 MG/3 ML VIAL.NEB. INHALATION ×2 (02:01→07:17)
[2024-08-05 06:01] LABS: Hematocrit 31.3 % (37-47); Hemoglobin 9.3 g/dL (12.0-15.0); Mean Corp Hgb Conc 29.7 g/dL (32-36); Mean Corpuscular Hgb 28.5 pg (27.0-32.0); Mean Platelet Vol. 9.3 fl (6.2-12.0); Platelet Count 399 K/mm3 (150-450); RBC Distribution Width CV 16.6 % (11.6-14.6); RBC Distribution Width SD 58.4 fl (35.1-43.9); Red Blood Count 3.26 M/mm3 (4.2-5.4); White Blood Count 11.3 K/mm3 (4.4-11.0)
[2024-08-05 06:12] LABS: Anion Gap 5 (5-15); BUN 32 mg/dL (7-18); Calcium,Total 8.8 mg/dL (8.5-10.1); Chloride 110 mmol/L (98-107); Creatinine, Serum 1.28 mg/dL (0.55-1.02); EST Glomerular Filtration Rate 43 mL/min (>60); Est Glom Filt Rate - Afr Amer 51 mL/min (>60); Estimated Creatinine Clearance 27.87 ml/min; Glucose 221 mg/dL (74-106); Potassium 3.5 mmol/L (3.5-5.1); Sodium Level 140 mmol/L (136-145)
[2024-08-05] MEDS: NYSTATIN 500,000 UNIT/5 ML UDC 500000 UNIT PO ×2 (06:28→14:06)
[2024-08-05] MEDS: Insulin Lispro 100 UNIT/ML INSULN.PEN SC ×2 (06:28→11:25)
[2024-08-05 06:47] LABS: Bedside Glucose 153 mg/dL (74-106)
[2024-08-05] MEDS: Pantoprazole Sodium 40 MG Tablet PO (08:12)
[2024-08-05] MEDS: Ferrous Gluconate 324 MG Tablet PO (08:12)
[2024-08-05] MEDS: Ascorbic Acid 500 MG Tablet PO (08:12)
[2024-08-05] MEDS: APIXABAN 2.5 MG TABLET (WCH) PO (08:13)
[2024-08-05] MEDS: dilTIAZem CD 240 MG Capsule PO (08:13)
[2024-08-05] MEDS: guaiFENesin 1,200 MG Tablet 1200 MG PO (08:13)
[2024-08-05] MEDS: Clopidogrel Bisulfate 75 MG Tablet PO (08:13)
[2024-08-05] MEDS: predniSONE 20 MG Tablet PO (08:13)
--- NOTE | 2024-08-05 09:08 | CASEMGMT ---
Patient is doing better per therapy. Per therapy patient and daughter are agreeable to home with home health. SW notified RN KEO. Janae Calderon AP PROCESSOR RAÚL
--- NOTE | 2024-08-05 09:58 | CASEMGMT ---
Discharge Planning A list of?HH providers including quality and resource use data and consistent with the patient's preferred geographic region, medical needs, and insurance network was created in [employer] Guide.? This list was provided to the RN KEO. Ashely Manley, Discharge Planning Asst.
--- NOTE | 2024-08-05 10:15 | CASEMGMT ---
Addendum entered by Renetta Eason 08/05/24 13:13: Patient has order for discharge. RN KEO received call back from [facility], they are able to accept patient with planned start of care for tomorrow. OTONIEL CROWLEY in to update patient and daughter regarding [facility] start of care for tomorrow. Patient and daughter had no further questions or concerns. OTONIEL CROWLEY updated discharge plan. Original Note: OTONIEL CROWLEY updated by SW that patient did well with therapy and would like C at discharge. OTONIEL CROWLEY in to discuss C with patient, daughter at bedside. Patient provided with HHC list, prefers [facility]. Patient and daughter denied further needs or concerns at discharge. Patient and daughter had no further questions. OTONIEL CROWLEY called and made referral to [facility], awaiting acceptance. CM will continue to follow this patietn and plan for a safe discharge.
[2024-08-05 11:46] LABS: Bedside Glucose 277 mg/dL (74-106)
--- NOTE | 2024-08-05 12:50 | PCM.DC ---
Discharge Instructions Diet Discharge Diet: - (Resume previous diet) DC O2, CPAP, BIPAP needs Home O2 Discharge instructions: No Dressing / Incision Discharge Activity: - (Increase activity as tolerated) Follow Up Care Test Results: Test results from this visit will be discussed in further detail at your follow-up appointment, if applicable. Discharge Plan Admission Admit Date/Time: 08/04/24 03:48 Primary Reason for Your Visit: Shortness of breath Attending Provider: Loida Luu Primary Care Provider: Jeff Suresh NP Consulting Providers: Alonso Williamson Instructions Patient Instructions: ED Fall Prevention Additional Instructions / Restrictions: DISCHARGE INSTRUCTIONS PLEASE READ *Please take this with you to your next doctors appointment* -Please finish out your Levaquin prescription and prednisone taper prescribed by your health economist -Please follow-up with pulmonology upon discharge. Please call their office to schedule hospital follow-up appointment upon discharge. -Please call your primary care provider's office upon discharge to schedule a hospital follow up within 1 week. -For any concerning signs or symptoms please call 911 or proceed to the nearest emergency department Discharge Orders/Prescriptions Prescriptions: Continued cholecalciferol (vitamin D3) 10 mcg (400 unit) capsule 10 mcg PO DAILY ascorbic acid (vitamin C) 500 mg capsule 500 mg PO DAILY clonidine HCl 0.2 mg tablet 0.2 mg PO QHS diltiazem HCl 120 mg capsule,extended release 24hr 240 mg PO DAILY duloxetine 30 mg capsule,delayed release(DR/EC) 30 mg PO QHS ferrous gluconate 324 mg (38 mg iron) tablet 324 mg PO DAILY Eliquis 2.5 mg tablet 2.5 mg PO Q12H Trulicity 1.5 mg/0.5 mL pen injector 1.5 mg subcut .weekly Rx Instructions: takes on Friday (did not take this Friday) lisinopril 5 mg tablet 5 mg PO DAILY ipratropium-albuterol 0.5 mg-3 mg(2.5 mg base)/3 mL solution for nebulization 3 ml inhalation Q4H PRN (Reason: shortness of breath or wheezing) levofloxacin 750 mg tablet 750 mg PO Q24H Qty: 7 0RF prednisone 10 mg tablet 10 mg PO QDAY Qty: 30 0RF Rx Instructions: take 4 tabs for three days, then 3 tabs for three days, then 2 tabs for three days, then 1 tab for 3 days nystatin 100,000 unit/mL suspension 1 ml PO TID 5 Days Qty: 60 0RF Rx Instructions: swish and swallow (DME) spacer See Rx Instructions .Route .MEDSUPPLY Qty: 1 0RF Rx Instructions: As directed clopidogrel 75 mg tablet 75 mg PO DAILY glipizide 2.5 mg tablet extended release 24hr 2.5 mg PO DAILY pantoprazole 40 mg tablet,delayed release (DR/EC) 40 mg PO DAILY fluticasone propion-salmeterol 250-50 mcg/dose blister with device 1 inh INHALATION BID Qty: 60 0RF guaifenesin 1,200 mg tablet extended release 12hr 1,200 mg PO Q12H Qty: 60 6RF albuterol sulfate 90 mcg/actuation HFA aerosol inhaler 2 inh INHALATION Q4H PRN Qty: 18 6RF albuterol sulfate 2.5 mg /3 mL (0.083 %) solution for nebulization 2.5 mg INHALATION Q4H PRN PRN (Reason: COPD) Qty: 90 3RF Referrals / Follow Up: Nae Brand MARKETING DEVELOPMENT REPRESENTATIVE-C [Med Staff - Adv Practice Prof] - Jeff Suresh NP MARKETING DEVELOPMENT REPRESENTATIVE-C [Primary Care Provider] - Within 1 Week Disposition Disposition (needs filled in before D/C Order can be placed): Home Health Service
--- NOTE | 2024-08-05 13:03 | DS.PCM_ITS ---
Providers Date of Admission: 08/04/24 Date of Discharge: 08/05/24 Primary Care Physician: JEAN Obrien Reason For Visit: WORSENING WEAKNESS W/DEHYDRATION Diagnosis Discharge Diagnosis (1) Generalized weakness: Status: Acute Code(s): R53.1 - Weakness (2) COPD exacerbation: Status: Chronic Code(s): J44.1 - Chronic obstructive pulmonary disease with (acute) exacerbation (3) Bronchiectasis: Status: Chronic Code(s): J47.9 - Bronchiectasis, uncomplicated Qualifiers: Bronchiectasis type: uncomplicated Qualified Code(s): J47.9 - Bronchiectasis, uncomplicated (4) Acute hyponatremia: Status: Acute Code(s): E87.1 - Hypo-osmolality and hyponatremia Plan # Acute exacerbation of COPD # Hyponatremia-resolved # Type II but diabetes mellitus # History of PAD with stenting and TIAs # History of paroxysmal atrial fibrillation # History of depression/anxiety # GERD Medications at Discharge Home Medications ascorbic acid (vitamin C) 500 mg capsule 500 mg PO DAILY 11/28/22 cholecalciferol (vitamin D3) 10 mcg (400 unit) capsule 10 mcg PO DAILY 11/28/22 clopidogrel 75 mg tablet 75 mg PO DAILY 04/30/23 glipizide 2.5 mg tablet, extended release 24 hr 2.5 mg PO DAILY 09/19/23 pantoprazole 40 mg tablet,delayed release 40 mg PO DAILY 09/19/23 fluticasone 250 mcg-salmeterol 50 mcg/dose blistr powdr for inhalation 1 inh inhalation BID #60 ea 11/04/23 apixaban 2.5 mg tablet (Eliquis) 2.5 mg PO Q12H 03/18/24 clonidine HCl 0.2 mg tablet 0.2 mg PO QHS 03/18/24 diltiazem HCl 120 mg capsule,extended release 24 hr 240 mg PO DAILY 03/18/24 dulaglutide 1.5 mg/0.5 mL subcutaneous pen injector (Trulicity) 1.5 mg subcut .weekly 03/18/24 duloxetine 30 mg capsule,delayed release 30 mg PO QHS 03/18/24 ferrous gluconate 324 mg (38 mg iron) tablet 324 mg PO DAILY 03/18/24 guaifenesin 1,200 mg tablet, extended release 12 hr 1,200 mg PO Q12H #60 tabs 06/09/24 albuterol sulfate 90 mcg/actuation aerosol inhaler 2 inh inhalation Q4H PRN COPD #18 grams 07/06/24 lisinopril 5 mg tablet 5 mg PO DAILY 07/14/24 albuterol sulfate 2.5 mg/3 mL (0.083 %) solution for nebulization 2.5 mg (3 mL) inhalation Q4H PRN PRN COPD #90 mL 07/30/24 ipratropium 0.5 mg-albuterol 3 mg (2.5 mg base)/3 mL nebulization soln 3 ml inhalation Q4H PRN shortness of breath or wheezing 07/30/24 levofloxacin 750 mg tablet 750 mg PO Q24H #7 tabs 07/30/24 nystatin 100,000 unit/mL oral suspension 1 ml PO TID 5 days #60 mL 07/30/24 prednisone 10 mg tablet 10 mg PO QDAY #30 tabs 07/30/24 spacer #1 ea 08/03/24 Hospital Course Summary of Care Provided Minutes Spent on Discharge: 25 Hospital Course: # Acute exacerbation of COPD # Hyponatremia-resolved # Type II but diabetes mellitus # History of PAD with stenting and TIAs # History of paroxysmal atrial fibrillation # History of depression/anxiety # GERD Per HPI: ANSON CAPPS, is a 83 F who presented to [facility] ED on 08/04/2024 with worsening shortness of breath and cough. Patient has history of stage III COPD with bronchiectasis, follows with outpatient pulmonology. She saw pulm REMOTE SENSING ANALYST in the office on 07/14 and was diagnosed with a COPD/bronchiectasis exacerbation. She was treated with a short course of steroids and antibiotics and it was recommended that she increase hydration, continue scheduled Mucinex and restart using vest therapy on a consistent basis. Sputum culture from that visit grew pansensitive Pseudomonas. She had a follow-up visit with pulm REMOTE SENSING ANALYST on 07/30 and noted that she felt better on steroids and antibiotics but then worsened again shortly after those courses were completed. She was prescribed a 7-day course of Levaquin and a longer steroid taper at that time. However, she has continued to have symptoms and has felt weaker than her normal so she came in today for further evaluation. In the ED she was afebrile and hemodynamically stable on room air. Labs were notable for sodium 129, potassium 5.5, chloride 97, creatinine 1.74 (baseline around 1.4), glucose 293, lactic acid 2.3. UA was unremarkable. Chest x-ray was unremarkable. Given concern for worsening weakness and not able to take care of herself at home, hospitalist was contacted for admission. I saw the patient at bedside in the ED, daughter was present. Patient was mildly fatigued appearing but otherwise sitting up comfortably in bedside chair, conversing normally, in no acute distress. She was breathing comfortably on room air at rest. She did have bilateral crackles noted on lung auscultation had several coughing episodes with mild sputum production during my encounter with her. She notes that on higher doses of steroids she feels more weak and jittery. She has been drinking lots of fluids but also urinating very frequently over the past several days. She denies any fevers or chills currently. Denies any other acute concerns. INTERVAL HISTORY: Patient continued to have some shortness of breath but had improvement compared to presentation and also was feeling stronger, having difficulty sleeping in the hospital in part due to steroids and given her improvement discussed continued hospitalization versus discharge home and she was comfortable with discharge home. Advised to finish course of prednisone and Levaquin and follow-up with her director food and beverage. Additionally her electrolyte abnormalities resolved with fluids and her kidney function improved with fluids which likely helped with her strength and ability to be discharged home. On day of discharge patient does still have some shortness of breath but discussed this would likely take time to resolve and she feels that she feels comfortable going home and agreeable to come to back to the hospital if needed. Discharge instructions as followed: -Please finish out your Levaquin prescription and prednisone taper prescribed by your director food and beverage -Please follow-up with pulmonology upon discharge. Please call their office to schedule hospital follow-up appointment upon discharge. -Please call your primary care provider's office upon discharge to schedule a hospital follow up within 1 week. -For any concerning signs or symptoms please call 911 or proceed to the nearest emergency department Physical Exam Narrative General: Alert, oriented, no apparent distress HEENT: Atraumatic, normocephalic Eyes: Anicteric, normal conjunctiva, extraocular movements grossly intact Neck: Supple Respiratory: Still some increased work of breathing but improving, wheezing improving Cardiovascular: Intermittent low-grade sinus tachycardia GI: Soft, nontender, nondistended Extremities: No edema Musculoskeletal: Moving all extremities Neuro: No overt focal neurological deficits Skin: No rashes appreciated Psych: Cooperative Weight / BMI Weight Weight: 59.8 kg Body Mass Index (BMI) 25.7 ABG / Lab / Microbiology Data 08/05/24 05:22 08/05/24 05:22 Laboratory: Laboratory Results - last 24 hr 08/04/24 17:22: POC Glucose 251 H 08/04/24 21:52: POC Glucose 170 H 08/05/24 05:22: WBC 11.3 H, RBC 3.26 L, Hgb 9.3 L, Hct 31.3 L, MCV 96.0, MCH 28.5, MCHC 29.7 L, RDW Std Deviation 58.4 H, RDW Coeff of Tia 16.6 H, Plt Count 399, MPV 9.3, Sodium 140, Potassium 3.5, Chloride 110 H, Carbon Dioxide 25.0, Anion Gap 5, BUN 32 H, Creatinine 1.28 H, Estim Creat Clear Calc 27.87, Est GFR (MDRD) Af Amer 51 L, Est GFR (MDRD) Non-Af 43 L, BUN/Creatinine Ratio 25.0 H, G lucose 221 H, Calcium 8.8 08/05/24 06:25: POC Glucose 153 H 08/05/24 11:23: POC Glucose 277 H Microbiology: Microbiology 08/04/24 01:54 Urine, Clean Catch Urine Culture - Preliminary Culture exhibits no growth. 08/04/24 10:51 Mucosa - Nasopharyngeal Respiratory Panel (PCR) - Final 08/03/24 01:14 Mucosa - Nose SARS-CoV-2, Influenza & RSV (PCR) - Final D/C Instructions Discharge Diet: - (Resume previous diet) DC O2, CPAP, BIPAP Needs Home O2 Discharge instructions: No Meaningful Use Info Meaningful Use Meaningful Use Diagnoses (Choose all that apply): None applicable Ischemic Stroke Statin Dosing Therapy Reference: STATIN DOSE THERAPY REFERENCE: * Patients > 75 years receive moderate or high dose statin therapy. * Patients 75 years or YOUNGER should receive HIGH intensity statin dose unless contraindicated. You will be required to document reason for non-treatment if statin daily dose does not meet guidelines. HIGH DOSE STATIN THERAPY DAILY Atorvastatin > than or = to 40 mg Rosuvastatin > than or = to 20 mg Amlodipine + Atorvastatin > than or = to 2.5/40 mg Ezetimibe + Simvastatin 10/80 mg Simvastatin 80mg Discharge Plan Admission Admit Date/Time: 08/04/24 03:48 Primary Reason for Your Visit: Shortness of breath Attending Provider: Loida Luu Primary Care Provider: Jeff Suresh REMOTE SENSING ANALYST Consulting Providers: Alonso Williamson Instructions Patient Instructions: ED Fall Prevention Additional Instructions / Restrictions: DISCHARGE INSTRUCTIONS PLEASE READ *Please take this with you to your next doctors appointment* -Please finish out your Levaquin prescription and prednisone taper prescribed by your director food and beverage -Please follow-up with pulmonology upon discharge. Please call their office to schedule hospital follow-up appointment upon discharge. -Please call your primary care provider's office upon discharge to schedule a hospital follow up within 1 week. -For any concerning signs or symptoms please call 911 or proceed to the nearest emergency department Discharge Orders/Prescriptions Prescriptions: Continued cholecalciferol (vitamin D3) 10 mcg (400 unit) capsule 10 mcg PO DAILY ascorbic acid (vitamin C) 500 mg capsule 500 mg PO DAILY clonidine HCl 0.2 mg tablet 0.2 mg PO QHS diltiazem HCl 120 mg capsule,extended release 24hr 240 mg PO DAILY duloxetine 30 mg capsule,delayed release(DR/EC) 30 mg PO QHS ferrous gluconate 324 mg (38 mg iron) tablet 324 mg PO DAILY Eliquis 2.5 mg tablet 2.5 mg PO Q12H Trulicity 1.5 mg/0.5 mL pen injector 1.5 mg subcut .weekly Rx Instructions: takes on Friday (did not take this Friday) lisinopril 5 mg tablet 5 mg PO DAILY ipratropium-albuterol 0.5 mg-3 mg(2.5 mg base)/3 mL solution for nebulization 3 ml inhalation Q4H PRN (Reason: shortness of breath or wheezing) levofloxacin 750 mg tablet 750 mg PO Q24H Qty: 7 0RF prednisone 10 mg tablet 10 mg PO QDAY Qty: 30 0RF Rx Instructions: take 4 tabs for three days, then 3 tabs for three days, then 2 tabs for three days, then 1 tab for 3 days nystatin 100,000 unit/mL suspension 1 ml PO TID 5 Days Qty: 60 0RF Rx Instructions: swish and swallow (DME) spacer See Rx Instructions .Route .MEDSUPPLY Qty: 1 0RF Rx Instructions: As directed clopidogrel 75 mg tablet 75 mg PO DAILY glipizide 2.5 mg tablet extended release 24hr 2.5 mg PO DAILY pantoprazole 40 mg tablet,delayed release (DR/EC) 40 mg PO DAILY fluticasone propion-salmeterol 250-50 mcg/dose blister with device 1 inh INHALATION BID Qty: 60 0RF guaifenesin 1,200 mg tablet extended release 12hr 1,200 mg PO Q12H Qty: 60 6RF albuterol sulfate 90 mcg/actuation HFA aerosol inhaler 2 inh INHALATION Q4H PRN Qty: 18 6RF albuterol sulfate 2.5 mg /3 mL (0.083 %) solution for nebulization 2.5 mg INHALATION Q4H PRN PRN (Reason: COPD) Qty: 90 3RF Referrals / Follow Up: Nae Brand REMOTE SENSING ANALYST-C [Med Staff - Adv Practice Prof] - (Carroting Machine Operator called and left a voicemail. Office should call you in 1-3 business days) Jeff Suresh NP, REMOTE SENSING ANALYST-C [Primary Care Provider] - Within 1 Week Disposition Disposition (needs filled in before D/C Order can be placed): Home Health Service Charges/Coding Visit Charges Inpatient E&M: 23246 Disch Hosp
== END 2024-08-05 15:32 | disposition home health service (06) ==
LOC: ED 08-04 03:50 → PCU 08-04 04:43
PROVIDERS: Admitting Provider Hospitalist; Emergency Provider Emergency Medicine; PCP Nurse Practitioner Primary Care; Visit Provider Internal Medicine
DX: J44.1 Chronic obstructive pulmonary disease with (acute) exacerbation (principal); J47.9 Bronchiectasis, uncomplicated; I48.0 Paroxysmal atrial fibrillation; E11.40 Type 2 diabetes mellitus with diabetic neuropathy, unspecified; E11.51 Type 2 diabetes mellitus with diabetic peripheral angiopathy without gangrene; E11.22 Type 2 diabetes mellitus with diabetic chronic kidney disease; E11.65 Type 2 diabetes mellitus with hyperglycemia; N18.32 Chronic kidney disease, stage 3b; E87.1 Hypo-osmolality and hyponatremia; Z87.891 Personal history of nicotine dependence; I12.9 Hypertensive chronic kidney disease with stage 1 through stage 4 chronic kidney disease, or unspecified chronic kidney disease; Z79.01 Long term (current) use of anticoagulants; K21.9 Gastro-esophageal reflux disease without esophagitis; Z79.02 Long term (current) use of antithrombotics/antiplatelets; Z79.52 Long term (current) use of systemic steroids; Z79.84 Long term (current) use of oral hypoglycemic drugs; Z79.51 Long term (current) use of inhaled steroids; E86.0 Dehydration; Z79.85 Long-term (current) use of injectable non-insulin antidiabetic drugs; E78.5 Hyperlipidemia, unspecified; Z79.899 Other long term (current) drug therapy; F41.8 Other specified anxiety disorders
CPT/HCPCS: 36415; 71046; 80048; 80053; 81001; 82962; 83605; 83880; 84484; 85025; 85027; 85610; 85730; 87040; 87086; 87631; 87633; 93005; 94640; 94668; 96360; 96361; 97162; 97166; 99221; 99252; 99285; A4216; G0378; G0463

== ENCOUNTER → 2024-08-19 | Outpatient (CLI) | payer MEDICARE, MEDICAID, SELFPAY ==
[2024-08-19 09:56] LABS: Anion Gap 8 (5-15); BUN 36 mg/dL (7-18); BUN/Creat Ratio 24.2 RATIO (10-20); Calcium,Total 8.9 mg/dL (8.5-10.1); Chloride 102 mmol/L (98-107); Creatinine, Serum 1.49 mg/dL (0.55-1.02); EST Glomerular Filtration Rate 36 mL/min (>60); Est Glom Filt Rate - Afr Amer 43 mL/min (>60); Glucose 150 mg/dL (74-106); Potassium 4.2 mmol/L (3.5-5.1); Sodium Level 134 mmol/L (136-145)
== END | disposition home or self-care (01) ==
LOC: LAB 08:49
PROVIDERS: PCP Nurse Practitioner Primary Care; Referring Provider Nurse Practitioner Primary Care; Visit Provider Nurse Practitioner Primary Care
DX: N17.9 Acute kidney failure, unspecified (principal)
CPT/HCPCS: 36415; 80048

== ENCOUNTER → 2024-08-23 | Outpatient (CLI) | payer MEDICARE, MEDICAID, SELFPAY | END | disposition home or self-care (01) | LOC: LABSPEC 15:01 | PROVIDERS: PCP Nurse Practitioner Primary Care; Referring Provider Nurse Practitioner Family; Visit Provider Nurse Practitioner Family | DX: J47.9 Bronchiectasis, uncomplicated (principal) | CPT/HCPCS: 87070; 87205 ==

== ENCOUNTER 2024-08-26 01:06 | Inpatient (IN) | payer MEDICARE, MEDICAID, SELFPAY ==
[2024-08-26] VITALS (15 sets, daily range): BP systolic 128–161; BP diastolic 58–72; PULSE 97–115; RESP 18–32; TEMP 36.6–37.7; O2SAT 90–100; BMI 25.0; BMI 24.3; BMI 24.4
--- NOTE | 2024-08-26 01:30 | EKG12_ITS ---
Test Reason : DYSRHYTHMIA Blood Pressure : */* mmHG Vent. Rate : 111 BPM Atrial Rate : 111 BPM P-R Int : 166 ms QRS Dur : 66 ms QT Int : 306 ms P-R-T Axes : 71 8 63 degrees QTcB Int : 416 ms Sinus tachycardia Low voltage QRS Borderline ECG Confirmed by TYLER ECHEVERRIA, SAI ([id number]), fashion editor EAN DIAZ ([id number]) on 08/26/2024 1:28:13 PM Referred By: TL Confirmed By: SAI SCOTT MD
--- NOTE | 2024-08-26 01:30 | RAD_ITS ---
PROCEDURE: CHEST 1 VIEW (PORTABLE) REASON FOR EXAM: Shortness of breath for months. Chills and fever. TECHNIQUE: AP portable view of the chest. COMPARISON: CT thorax dated 11/30/2022 FINDINGS: Mild emphysematous changes most prominent of the upper lobes. Patchy airspace consolidation/infiltra te involving the lingula/left lower lobe. Right lung is clear. No pneumothorax. No sizeable effusions. Heart size is within normal limits. Vascular calcifications within the thoracic aorta. The osseous thorax appears intact. 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 EKG wires overlie the chest. RAD/Chest 1 View (Portable) IMPRESSION: Patchy airspace consolidation/infiltrate involving the lingula/left lower lobe. Correlate for an infectious or inflammatory process. Follow-up to resolution recommended. Reading Location: [facility]
--- NOTE | 2024-08-26 01:32 | EDS_ITS ---
HPI History of Present Illness Chief Complaint: Shortness of Breath Narrative Narrative: Presents by EMS daughter currently present. History of COPD no home oxygen. Chronic Eliquis due to paroxysmal A-fib. She is on Plavix with peripheral artery disease with peripheral stent. Sick for the past 3 months never recovered. States would slightly get better then worsen again. Symptoms seem to worsen for the past 5 days. Feeling fevers muscle aches. No significant productive sputum. Aerosol treatments not helping. Denies recent travel or surgeries. No history of PE or DVT. States hospitalized back in June for her COPD. She is a diabetic. Glucose has been elevated. She took aerosol treatments before EMS arrival. PE Risk Factors: Negative for Cancer, OCP + Smoking + > 35, Prior DVT or PE, Recent immobilization, Recent surgery or Recent travel [facility] Medical History Alcohol abuse Kidney disease Atrial fibrillation Hypertension TIA (transient ischemic attack) Primary osteoarthritis, right shoulder Right shoulder pain Wears glasses Wears dentures Alcohol use Diabetes Ambulates with cane Arthritis Restless legs Vaso vagal episode Dietary restriction COPD (chronic obstructive pulmonary disease) Former smoker Leg cramps PVD (peripheral vascular disease) History of edema History of stress test Cardiology follow-up encounter Neuropathy Iron deficiency History of TIA (transient ischemic attack) GERD (gastroesophageal reflux disease) GI bleed Depression Anxiety CKD (chronic kidney disease) Diabetes mellitus type II, controlled Hyperlipidemia Stage 3 severe COPD by GOLD classification Essential (primary) hypertension PAD (peripheral artery disease) Preoperative cardiovascular examination Nicotine dependence Abnormal electrocardiogram Bilateral carotid bruits Long-term use of high-risk medication COPD (chronic obstructive pulmonary disease) COPD with acute exacerbation Dyspnea Home Medications ?Medication ?Instructions ?Recorded ?Last Taken ?Type ascorbic acid (vitamin C) 500 mg 500 mg PO DAILY 11/28/22 08/03/24 History capsule clopidogrel 75 mg tablet 75 mg PO DAILY 04/30/23 08/03/24 History glipizide 2.5 mg tablet, extended 2.5 mg PO DAILY 09/19/23 08/03/24 History release 24 hr pantoprazole 40 mg tablet,delayed 40 mg PO DAILY 09/19/23 08/03/24 History release apixaban 2.5 mg tablet (Eliquis) 2.5 mg PO Q12H 03/18/24 07/30/24 History clonidine HCl 0.2 mg tablet 0.2 mg PO QHS 03/18/24 08/03/24 History diltiazem HCl 120 mg 240 mg PO DAILY 03/18/24 08/03/24 History capsule,extended release 24 hr dulaglutide 1.5 mg/0.5 mL 1.5 mg subcut QWEEK 03/18/24 08/01/24 History subcutaneous pen injector (Trulicity) duloxetine 30 mg capsule,delayed 30 mg PO QHS 03/18/24 08/03/24 History release ferrous gluconate 324 mg (38 mg 324 mg PO DAILY 03/18/24 08/03/24 History iron) tablet albuterol sulfate 90 mcg/actuation 2 inh inhalation Q4H PRN COPD #18 07/06/24 Unknown Rx aerosol inhaler grams lisinopril 5 mg tablet 5 mg PO DAILY 07/14/24 08/03/24 History albuterol sulfate 2.5 mg/3 mL 2.5 mg (3 mL) inhalation Q4H PRN 07/30/24 Unknown Rx (0.083 %) solution for nebulization PRN COPD #90 mL spacer #1 ea 08/03/24 Unknown Rx inhalational spacing device #1 ea 08/13/24 Unknown History (Aerochamber Plus Flow-Vu) ipratropium bromide 42 mcg (0.06 2 spray intranasal TID #15 mL 08/13/24 Unknown Rx %) nasal spray ipratropium 0.5 mg-albuterol 3 mg 3 ml inhalation Q4H PRN shortness 08/23/24 Unknown Rx (2.5 mg base)/3 mL nebulization of breath or wheezing #180 mL soln amoxicillin 875 mg-potassium 1 tab PO BID #20 tabs 08/25/24 Unknown Rx clavulanate 125 mg tablet atorvastatin 40 mg tablet 40 mg PO QHS 08/26/24 Unknown History budesonide 0.5 mg/2 mL suspension 0.5 mg inhalation Q12H 08/26/24 Unknown History for nebulization calcium 500 mg tablet 1,000 mg PO DAILY 08/26/24 Unknown History cholecalciferol (vitamin D3) 125 125 mcg PO DAILY 08/26/24 Unknown History mcg (5,000 unit) tablet (Vitamin D3) coQ10 (ubiquinol) 100 mg capsule 100 mg PO DAILY 08/26/24 Unknown History (CoQmax Ubiquinol) magnesium 250 mg tablet 250 mg PO QHS 08/26/24 Unknown History trazodone 50 mg tablet 50 mg PO DAILY 08/26/24 Unknown History vitamin B12 0.5 mg-folic acid 1 mg 1 tab PO DAILY 08/26/24 Unknown History tablet (Foltrate) Allergy/AdvReac Type Severity Reaction Status Date / Time ferrous sulfate Allergy Intermediate Other Verified 08/26/24 01:09 iron AdvReac Severe Low blood Verified 08/26/24 01:09 pressure gabapentin AdvReac Intermediate Pedal edema Verified 08/26/24 01:09 pregabalin (From Lyrica) AdvReac Intermediate Pedal edema Verified 08/26/24 01:09 codeine AdvReac Nausea Verified 08/26/24 01:09 Tetracyclines AdvReac Nausea Verified 08/26/24 01:09 Family History Sister CAD (coronary artery disease) Brother CAD (coronary artery disease) Mother Cancer Father , at age 70 secondary to GSW while hunting. No problems noted. Surgical History H/O shoulder surgery Hx of tubal ligation Hx of colonoscopy History of esophagogastroduodenoscopy (EGD) Right lower extremity angioplasty H/O foot surgery History of appendectomy History of total abdominal hysterectomy H/O tubal ligation H/O: hysterectomy H/O foot surgery History of appendectomy Social History household members: none Smoking Status: Former smoker quit date: 07/28/15 second hand exposure: Yes alcohol intake: never substance use type: does not use ROS ROS ED Constitutional Constitutional ED: Reports fever(s); Denies chills or sweats ENT ENT ED: Denies sore throat Cardiovascular Cardiovascular: Denies chest pain, leg edema, palpitations or racing heartbeat Respiratory/Chest Respiratory/Chest: Reports cough and dyspnea; Denies dyspnea on exertion Gastrointestinal Gastrointestinal: Denies abdominal pain, diarrhea, nausea or vomiting Genitourinary Genitourinary ED: Denies dysuria, hematuria or urinary frequency Musculoskeletal Musculoskeletal: Reports myalgias; Denies back pain, extremity pain or neck pain Integumentary Denies rash or wounds Neurologic Neurologic: Denies headache(s), paresthesias or weakness EXAM Physical Exam Const Vital Signs: 08/26/24 01:09 08/26/24 01:11 08/26/24 01:12 Temperature 100 F H 100 F H Temperature Source Oral Oral Pulse Rate 115 H 111 H Respiratory Rate 27 H 29 H Respiratory Effort Short of Breath Respiratory Depth Normal Respiratory Pattern Tachypnea Blood Pressure 161/66 H 161/66 H Blood Pressure Mean 97 97 Pulse Ox 93 93 Oxygen Delivery Method Room Air Room Air Room Air Oxygen Flow Rate (L/min) 08/26/24 01:33 08/26/24 02:00 08/26/24 02:17 Temperature Temperature Source Pulse Rate Respiratory Rate 32 H 27 H Respiratory Effort Respiratory Depth Respiratory Pattern Blood Pressure Blood Pressure Mean Pulse Ox 91 90 98 Oxygen Delivery Method Room Air Room Air Nasal Cannula Oxygen Flow Rate (L/min) 2 08/26/24 03:00 Temperature 98.3 F Temperature Source Oral Pulse Rate 111 H Respiratory Rate 20 H Respiratory Effort Respiratory Depth Respiratory Pattern Blood Pressure 128/58 H Blood Pressure Mean 81 Pulse Ox 97 Oxygen Delivery Method Nasal Cannula Oxygen Flow Rate (L/min) 2 Positive well nourished and well developed Constitutional Narrative: Nontoxic General Appearance ED: well developed and NAD HEENT Reports moist mucous membranes normocephalic and atraumatic Eyes General Eye ED: Yes normal appearance of both eyes Neck full ROM Chest Wall Chest: Negative for tenderness Resp normal respiratory effort and normal air movement Resp Narrative: No wheezing on exam. Effort and Inspection: symmetric chest movement; Negative for respiratory distress Cardio regular rhythm and no murmurs Rate: tachycardic Peripheral Pulses: pulses 2+ throughout GI normal to inspection, nondistended, normoactive bowel sounds and non-tender Palpation: Negative for guarding or rebound tenderness present Extremity normal to inspection General Extremety ED: Negative for edema or tenderness General Extremity: Negative for edema Neuro oriented x3 and no sensory deficits noted Sensorium / Orientation: awake and alert Skin no rashes or lesions noted and no wounds MDM MDM MDM Narrative Medical decision making narrative: Interventions / MDM: Differential diagnosis: Pneumonia, COPD exacerbation, hypoxia Diagnosis considered but do not suspect: Pulmonary embolus however CT negative. My EKG interpretation: Sinus rate of 111, no ST or T wave changes. Imaging independently reviewed and interpreted by myself: N/A External documents reviewed: N/A Test considered but not ordered:N/A ED course: Patient tachycardic on arrival however status post her aerosol treatments at home. Temp 100 respiratory in the 20s. Sepsis labs were ordered with nasal swabs. Tylenol ordered. 0230: Chest x-ray concerning left lingual lower lobe infiltrate also read by radiology. Nursing patient dropped down to 90% was placed on oxygen. White count 12.6 lactic acid normal at 1.0. Creatinine 1.24 GFR 44. History of CKD. Hemoglobin 9.0 stable from previous. Covered with Solu-Medrol and Zithromax and Rocephin for pneumonia. However with her history stating continued symptoms waxing waning for 3 months not improving with previous antibiotic treatment steroids. He is on Eliquis. I will send her for CT angiogram chest for further evaluation of her lungs and her arteries. 0240: My review of CT angiogram, no PE, however infiltrating changes seen lower lobes lung and lingula. Will discuss with hospitalist for admission. I spoke with Dr. Potts for admission. Final read from radiology no PE similar findings from chest x-ray with infiltrative concerns. Re-evaluation: stable Disposition discussed with patient/family/significant other: Patient and daughter Case discussed with consulting clinician: Hospitalist This note was generated with [employer] dictation software. It may contain incorrect words, spelling, and punctuation that were not noted in checking the note before signing. Lab Data Labs: Laboratory Results - last 24 hr 08/26/24 01:45 WBC 12.6 H RBC 3.26 L Hgb 9.0 L Hct 29.9 L MCV 91.7 MCH 27.6 MCHC 30.1 L RDW Std Deviation 54.0 H RDW Coeff of Tia 15.9 H Plt Count 552 H MPV 9.1 Immature Gran % (Auto) 1.600 H Neut % (Auto) 84.7 H Lymph % (Auto) 4.8 L [place] % (Auto) 7.2 Eos % (Auto) 1.2 Baso % (Auto) 0.5 Absolute Neuts (auto) 10.7 H Absolute Lymphs (auto) 0.61 L Nucleated RBC % 0 PT 18.2 H INR 1.5 APTT 45.8 H Sodium 133 L Potassium 5.0 Chloride 104 Carbon Dioxide 21.0 Anion Gap 8 BUN 36 H Creatinine 1.24 H Estim Creat Clear Calc 28.39 Est GFR (MDRD) Af Amer 53 L Est GFR (MDRD) Non-Af 44 L BUN/Creatinine Ratio 29.0 H Glucose 222 H Lactic Acid 1.0 Calcium 9.2 Total Bilirubin 0.30 AST 15 ALT 24 Alkaline Phosphatase 88 Total Protein 7.2 Albumin 2.3 L Globulin 4.9 H Albumin/Globulin Ratio 0.5 L Radiography Diagnostic Testing: Clinical Impression(s) from Imaging Studies Chest X-Ray 08/26/24 01:30 IMPRESSION: Patchy airspace consolidation/infiltrate involving the lingula/left lower lobe. Correlate for an infectious or inflammatory process. Follow-up to resolution recommended. Reading Location: [facility] Chest CTA 08/26/24 02:22 IMPRESSION: 1. No evidence of pulmonary embolism is identified. 2. Few mildly prominent subcarinal and right hilar lymph nodes are identified. 3. Diffuse emphysematous changes, most prominent within the upper lobes. 4. Patchy airspace consolidation with air bronchograms within the lingula. Nodular airspace disease within the left lower lobe, posteriorly, as described. Correlate for an infectious or inflammatory process. Follow-up to resolution recommended. 5. Additional chronic changes, as above One or more dose reduction techniques were used (e.g., Automated exposure control, adjustment of the mA and/or kV according to patient size, use of iterative reconstruction technique). Reading Location: [facility] Discharge Plan Dx/Rx/DC Orders Clinical Impression: COPD exacerbation, Anemia, Chronic kidney disease (CKD), Pneumonia Disposition Disposition: Acute Care Hospital [facility] Discharge Date/Time: 08/26/24 03:19
[2024-08-26] MEDS: Acetaminophen 325 MG Tablet 650 MG PO ×2 (01:37→22:47)
[2024-08-26 02:05] LABS: International Normalized Ratio 1.5; Prothrombin Time (Protime)PT. 18.2 SECONDS (11.7-14.9)
[2024-08-26 02:07] LABS: Partial Thromboplast Time 45.8 Seconds (24.1-36.2)
[2024-08-26 02:10] LABS: ALB/GLOB Ratio 0.5 RATIO (0.9-2.4); AST(SGOT) 15 U/L (15-37); Alanine Aminotransfer ALT/SGPT 24 U/L (13-56); Albumin, Serum 2.3 g/dL (3.2-5.0); Alkaline Phosphatase 88 U/L (45-117); Anion Gap 8 (5-15); BUN 36 mg/dL (7-18); Calcium,Total 9.2 mg/dL (8.5-10.1); Chloride 104 mmol/L (98-107); Creatinine, Serum 1.24 mg/dL (0.55-1.02); EST Glomerular Filtration Rate 44 mL/min (>60); Est Glom Filt Rate - Afr Amer 53 mL/min (>60); Estimated Creatinine Clearance 28.39 ml/min; Globulin 4.9 g/dL (2.2-4.2); Glucose 222 mg/dL (74-106); Protein, Total 7.2 g/dL (6.4-8.2); Sodium Level 133 mmol/L (136-145)
[2024-08-26 02:12] LABS: Absolute Lymphocyte Count 0.61 X10^3/uL (0.83-4.51); Absolute Neutrophil Count 10.7 X10^3/uL (2.0-7.7); Basophil# 0.06 X10^3/uL; Basophil% 0.5 % (0-1); Eosinophil# 0.15 X10^3/uL; Eosinophils% 1.2 % (0-5); Hematocrit 29.9 % (37-47); Lymphocyte # 0.61 X10^3/ul (0.83-4.51); Lymphocyte % 4.8 % (19-41); Mean Corp Hgb Conc 30.1 g/dL (32-36); Mean Corpuscular Hgb 27.6 pg (27.0-32.0); Mean Corpuscular Volume 91.7 fL (81-99); Mean Platelet Vol. 9.1 fl (6.2-12.0); Monocyte# 0.91 X10^3/uL; Monocyte% 7.2 % (0-10); NRBC Flagged by Analyzer 0 % (0-5); Neutrophil # 10.69 X10^3/uL (2.7-7.7); Neutrophil % 84.7 % (47-70); Platelet Count 552 K/mm3 (150-450); RBC Distribution Width CV 15.9 % (11.6-14.6); Red Blood Count 3.26 M/mm3 (4.2-5.4); White Blood Count 12.6 K/mm3 (4.4-11.0)
--- NOTE | 2024-08-26 02:22 | CT_ITS ---
PROCEDURE: CTA CHEST W/WO CONTRAST REASON FOR EXAM: Cough. Shortness of breath. Fever and chills. History of COPD. TECHNIQUE: Thin cut axial CTA images of the chest performed with IV contrast enhancement. Sagittal and coronal 3D reconstructed images were performed. 75 mL of Isovue 370. COMPARISON: 11/30/2022 FINDINGS: No filling defects are seen within the primary secondary branches of the pulmonary arteries to sugges t a pulmonary embolism. Remaining pulmonary vasculature, as visualized, is within normal limits. Atherosclerotic calcificati ons and plaque formation within the aortic arch and origins of the great vessels of the neck. Ascending aorta measures up to 2.8 cm. No thoracic aortic aneurysm or dissection is seen. Few subcarinal and right hilar lymph nodes are identified, measuring 1.1 and 1.3 cm. Smaller pretracheal and prevascular lymph nodes are identified, subcentimeter in size in short axis. Trace c oronary artery calcifications are seen. Emphysematous changes most prominent of the upper lobes. Linear scarring within the right lung apex, posteriorly. Patchy airspace consolidation with air bronchograms involving the lingula. Nodular airspace disease involvi ng the left lower lobe posteriorly, largest nodular density measures up to 2.5 cm. Linear atelectasis or scarring within th e left lower lobe. No pneumothorax. No pleural effusions. Slight dextrocurvature involving the thoracic spine. Postsurgi rosy change involving the right shoulder. Visualized portions of the liver and spleen appear intact. CT/CTA Chest W/WO Contrast IMPRESSION: 1. No evidence of pulmonary embolism is identified. 2. Few mildly prominent subcarinal and right hilar lymph nodes are identified. 3. Diffuse emphysematous changes, most prominent within the upper lobes. 4. Patchy airspace consolidation with air bronchograms within the lingula. Nod ular airspace disease within the left lower lobe, posteriorly, as described. Correlate for an infectious or inflammatory process . Follow-up to resolution recommended. 5. Additional chronic changes, as above One or more dose reduction techniques were used (e.g., Automated exposure contr ol, adjustment of the mA and/or kV according to patient size, use of iterative reconstruction technique). Reading [facility]
--- NOTE | 2024-08-26 02:58 | PCM.HP.STD ---
[facility] - [facility] Date of Admission: 08/26/24 Date of Service: 08/26/24 Chief Complaint: SOB and Wheezing. [facility] Narrative ANSON CAPPS, is a 83 F with a past medical history of essential hypertension; on lisinopril and clonidine, hyperlipidemia; on atorvastatin, DM-2; of unknown control on glipizide and dulaglutide, diabetic neuropathy, paroxysmal atrial fibrillation; on diltiazem and apixaban, history of TIA, remote history of tobacco abuse ~50 pack years; with subsequent severe COPD with bronchiectasis, CKD; stage III, PAOLA;on ferrous gluconate, history of bilateral carotid bruits, PAD; with history of claudication on clopidogrel, RLS, history of depression; on duloxetine and trazodone, GERD; on pantoprazole, OA; primarily of the Right shoulder and recent admission here from August 04, 2024 to August 05, 2024 for treatment of AE COPD with bronchiectasis with sputum cultures positive for pansensitive Pseudomonas aeruginosa complicated by mild Hyponatremia of 129 mmol/L present on admission who presents to [facility] ER complaining of SOB and wheezing. Ms. Capps reports her symptoms began approximately 3 months prior to admission but then acutely worsened over the past ~5 days with dyspnea on exertion that progressed to shortness of breath at rest. She also admits to frequent non productive cough with wheezing that is no longer controlled by her nebulizers along with fevers and muscle aches with persistent hyperglycemia so she finally decided to come in for further evaluation and treatment. She admits her symptoms are similar to her pervious to the symptoms that heralded her previous admission earlier this month. She denies wearing oxygen at home. She also denies associated chills, sore throat, chest pain, abdominal pain, dysuria or headache. The patient's daughter was present at the bedside and she helped augment the history. In the ER she was noted to have X-ray evidence of Left lingular and LLL infiltrates consistent with suspected Pneumonia with a corresponding Leukocytosis of 12.6K with Left-shift of 1.6% present on admission (but without other signs or features of sepsis) complicated by clinical evidence of AE COPD with Respiratory Insufficiency and laboratory evidence of Hyperglycemia of 222 mg/dL present on admission along with suspected Dehydration evidenced by elevated BUN/creatinine ratio of 29 present on admission. She was then admitted to the general medical floor with telemetric monitoring for a stay that is expected to extend beyond 2 midnights. [facility] Medical History Alcohol abuse Kidney disease Atrial fibrillation Hypertension TIA (transient ischemic attack) Primary osteoarthritis, right shoulder Right shoulder pain Wears glasses Wears dentures Alcohol use Diabetes Ambulates with cane Arthritis Restless legs Vaso vagal episode Dietary restriction COPD (chronic obstructive pulmonary disease) Former smoker Leg cramps PVD (peripheral vascular disease) History of edema History of stress test Cardiology follow-up encounter Neuropathy Iron deficiency History of TIA (transient ischemic attack) GERD (gastroesophageal reflux disease) GI bleed Depression Anxiety CKD (chronic kidney disease) Diabetes mellitus type II, controlled Hyperlipidemia Stage 3 severe COPD by GOLD classification Essential (primary) hypertension PAD (peripheral artery disease) Preoperative cardiovascular examination Nicotine dependence Abnormal electrocardiogram Bilateral carotid bruits Long-term use of high-risk medication COPD (chronic obstructive pulmonary disease) COPD with acute exacerbation Dyspnea Home Medications ?Medication ?Instructions ?Recorded ?Last Taken ?Type ascorbic acid (vitamin C) 500 mg 500 mg PO DAILY 11/28/22 08/03/24 History capsule clopidogrel 75 mg tablet 75 mg PO DAILY 04/30/23 08/03/24 History glipizide 2.5 mg tablet, extended 2.5 mg PO DAILY 09/19/23 08/03/24 History release 24 hr pantoprazole 40 mg tablet,delayed 40 mg PO DAILY 09/19/23 08/03/24 History release apixaban 2.5 mg tablet (Eliquis) 2.5 mg PO Q12H 03/18/24 07/30/24 History clonidine HCl 0.2 mg tablet 0.2 mg PO QHS 03/18/24 08/03/24 History diltiazem HCl 120 mg 240 mg PO DAILY 03/18/24 08/03/24 History capsule,extended release 24 hr dulaglutide 1.5 mg/0.5 mL 1.5 mg subcut QWEEK 03/18/24 08/01/24 History subcutaneous pen injector (Trulicity) duloxetine 30 mg capsule,delayed 30 mg PO QHS 03/18/24 08/03/24 History release ferrous gluconate 324 mg (38 mg 324 mg PO DAILY 03/18/24 08/03/24 History iron) tablet albuterol sulfate 90 mcg/actuation 2 inh inhalation Q4H PRN COPD #18 07/06/24 Unknown Rx aerosol inhaler grams lisinopril 5 mg tablet 5 mg PO DAILY 07/14/24 08/03/24 History albuterol sulfate 2.5 mg/3 mL 2.5 mg (3 mL) inhalation Q4H PRN 07/30/24 Unknown Rx (0.083 %) solution for nebulization PRN COPD #90 mL spacer #1 ea 08/03/24 Unknown Rx inhalational spacing device #1 ea 08/13/24 Unknown History (Aerochamber Plus Flow-Vu) ipratropium bromide 42 mcg (0.06 2 spray intranasal TID #15 mL 08/13/24 Unknown Rx %) nasal spray ipratropium 0.5 mg-albuterol 3 mg 3 ml inhalation Q4H PRN shortness 08/23/24 Unknown Rx (2.5 mg base)/3 mL nebulization of breath or wheezing #180 mL soln amoxicillin 875 mg-potassium 1 tab PO BID #20 tabs 08/25/24 Unknown Rx clavulanate 125 mg tablet atorvastatin 40 mg tablet 40 mg PO QHS 08/26/24 Unknown History budesonide 0.5 mg/2 mL suspension 0.5 mg inhalation Q12H 08/26/24 Unknown History for nebulization calcium 500 mg tablet 1,000 mg PO DAILY 08/26/24 Unknown History cholecalciferol (vitamin D3) 125 125 mcg PO DAILY 08/26/24 Unknown History mcg (5,000 unit) tablet (Vitamin D3) coQ10 (ubiquinol) 100 mg capsule 100 mg PO DAILY 08/26/24 Unknown History (CoQmax Ubiquinol) magnesium 250 mg tablet 250 mg PO QHS 08/26/24 Unknown History trazodone 50 mg tablet 50 mg PO DAILY 08/26/24 Unknown History vitamin B12 0.5 mg-folic acid 1 mg 1 tab PO DAILY 08/26/24 Unknown History tablet (Foltrate) Allergy/AdvReac Type Severity Reaction Status Date / Time ferrous sulfate Allergy Intermediate Other Verified 08/26/24 01:09 iron AdvReac Severe Low blood Verified 08/26/24 01:09 pressure gabapentin AdvReac Intermediate Pedal edema Verified 08/26/24 01:09 pregabalin (From Lyrica) AdvReac Intermediate Pedal edema Verified 08/26/24 01:09 codeine AdvReac Nausea Verified 08/26/24 01:09 Tetracyclines AdvReac Nausea Verified 08/26/24 01:09 Family History Sister CAD (coronary artery disease) Brother CAD (coronary artery disease) Mother Cancer Father , at age 70 secondary to GSW while hunting. No problems noted. Surgical History H/O shoulder surgery Hx of tubal ligation Hx of colonoscopy History of esophagogastroduodenoscopy (EGD) Right lower extremity angioplasty H/O foot surgery History of appendectomy History of total abdominal hysterectomy H/O tubal ligation H/O: hysterectomy H/O foot surgery History of appendectomy Social History household members: none Smoking Status: Former smoker quit date: 07/28/15 second hand exposure: Yes alcohol intake: never substance use type: does not use ROS ROS Narrative Review of Systems: Constitutional: Patient admits to fever but she denies chills. Eyes: Patient denies changes in vision or discharge from eyes. ENT: Patient denies runny nose, sore throat or ear pain. Resp: Patient admits to progressively worsening SOB and nonproductive cough with wheezing not significantly helped by nebulizers as per HPI. CV: Patient denies chest pain, palpitations, heart racing or LE edema. GI: Patient denies abdominal pain, nausea, vomiting, diarrhea or constipation. : Patient denies dysuria, hematuria or urinary frequency. MSK: Patient admits to myalgias but she denies arthralgias. Skin: Patient denies rash, abscess, wounds or jaundice. Psych: Patient denies symptoms of uncontrolled depression or anxiety. Neuro: Patient denies headache, paresthesias or focal neurologic deficits. Allergy: Patient denies lip swelling, tongue swelling or urticaria. Hematology: Patient admits to easy bruising on apixaban. Endocrinology: Patient admits to modest persistent hyperglycemia in the ~200 mg/dL range. 14 point ROS otherwise negative except for positives noted above in HPI. Vital Signs Vital Signs Vital Signs: 08/26/24 01:09 08/26/24 01:11 08/26/24 01:12 Temperature 100 F H 100 F H Temperature Source Oral Oral Pulse Rate 115 H 111 H Respiratory Rate 27 H 29 H Respiratory Effort Short of Breath Respiratory Depth Normal Respiratory Pattern Tachypnea Blood Pressure 161/66 H 161/66 H Blood Pressure Mean 97 97 Pulse Ox 93 93 Oxygen Delivery Method Room Air Room Air Room Air Oxygen Flow Rate (L/min) 08/26/24 01:33 08/26/24 02:00 08/26/24 02:17 Temperature Temperature Source Pulse Rate Respiratory Rate 32 H 27 H Respiratory Effort Respiratory Depth Respiratory Pattern Blood Pressure Blood Pressure Mean Pulse Ox 91 90 98 Oxygen Delivery Method Room Air Room Air Nasal Cannula Oxygen Flow Rate (L/min) 2 Weight Weight: 128 lb 1.417 oz Body Mass Index (BMI) 25.0 Physical Exam Const alert, oriented x3 and average body habitus Constitutional Narrative: Mildly labored respirations noted. General Appearance: cooperative HEENT normocephalic, head/scalp atraumatic, hearing grossly normal bilaterally and moist oral mucous membranes Eyes PERRL, EOMs intact bilaterally and conjunctivae normal Neck no lymphadenopathy, supple and no JVD Resp Resp Narrative: Diminished breath sounds throughout. Cardio regular rate and regular rhythm GI normal to inspection, nondistended, normoactive bowel sounds, soft to palpation, non-tender and non-distended Extremity normal to inspection, full ROM and no clubbing, cyanosis or edema Skin Skin Narrative: Patient has no evidence of rash, abscess, wounds or jaundice. Neuro oriented x3, CN's II-XII intact bilaterally, moves all extremities and no focal motor deficits Sensorium / Orientation: awake, alert, oriented to person, oriented to place and oriented to time Speech: speech normal Psych affect normal Results Medical Records Data Attestation: I reviewed the patient's medical records Lab / Micro Data Attestation: I reviewed the patient's lab results. 08/26/24 01:45 08/26/24 01:45 Labs: Laboratory Results - last 24 hr 08/26/24 01:45: WBC 12.6 H, RBC 3.26 L, Hgb 9.0 L, Hct 29.9 L, MCV 91.7, MCH 27.6, MCHC 30.1 L, RDW Std Deviation 54.0 H, RDW Coeff of Tia 15.9 H, Plt Count 552 H, MPV 9.1, Immature Gran % (Auto) 1.600 H, Neut % (Auto) 84.7 H, Lymph % (Auto) 4.8 L, Piute % (Auto) 7.2, Eos % (Auto) 1.2, Baso % (Auto) 0.5, Absolute Neuts (auto) 10.7 H, Absolute Lymphs (auto) 0.61 L, Nucleated RBC % 0, PT 18.2 H, INR 1.5, APTT 45.8 H, Sodium 133 L, Potassium 5.0, Chloride 104, Carbon Dioxide 21.0, Anion Gap 8, BUN 36 H, Creatinine 1.24 H, Estim Creat Clear Calc 28.39, Est GFR (MDRD) Af Amer 53 L, Est GFR (MDRD) Non-Af 44 L, BUN/Creatinine Ratio 29.0 H, Glucose 222 H, Lactic Acid 1.0, Calcium 9.2, Total Bilirubin 0.30, AST 15, ALT 24, Alkaline Phosphatase 88, Total Protein 7.2, Albumin 2.3 L, Globulin 4.9 H, Albumin/Globulin Ratio 0.5 L Imaging Radiology Impression Chest X-Ray 08/26/24 01:30 IMPRESSION: Patchy airspace consolidation/infiltrate involving the lingula/left lower lobe. Correlate for an infectious or inflammatory process. Follow-up to resolution recommended. [facility] Assessment & Plan Assessment/Plan (1) Pneumonia: QUALIFIERS: Pneumonia type: due to unspecified organism Laterality: left Lung location: unspecified part of lung Qualified Code(s): J18.9 - Pneumonia, unspecified organism (2) COPD exacerbation: (3) Respiratory insufficiency: (4) Dehydration: (5) Type 2 diabetes mellitus with hyperglycemia: QUALIFIERS: Diabetes mellitus [facility] insulin use: without intermediate manager use Qualified Code(s): E11.65 - Type 2 diabetes mellitus with hyperglycemia (6) Smoking greater than 30 pack years: (7) Stage 3 severe COPD by GOLD classification: (8) Bronchiectasis: QUALIFIERS: Bronchiectasis type: uncomplicated Qualified Code(s): J47.9 - Bronchiectasis, uncomplicated (9) PAF (paroxysmal atrial fibrillation): (10) Essential hypertension: PLAN: Plan 1. X-ray evidence of Left lingular and LLL infiltrates consistent with suspected Pneumonia with a corresponding Leukocytosis of 12.6K with Left-shift of 1.6% present on admission (but without other signs or features of sepsis) - Admit to general medical floor with telemetric monitoring. Continue empiric IV ceftriaxone and IV azithromycin begun in the ER and await culture and sensitivity data. Check urinary antigens to Streptococcus pneumonia and Legionella. Give acetaminophen prn for [id number] (level 1-5/10) pain or fever. Give morphine IV prn for severe (level 6-10/10) pain. 2. AE COPD with Respiratory Insufficiency complicating #1 - Resume IV Solu-Medrol and continue scheduled and prn nebulizers. Wean supplemental oxygen as tolerated. 3. Dehydration evidenced by elevated BUN/creatinine ratio of 29 present on admission compounding #1 & #2 - Gently volume resuscitate and recheck renal indices daily to ensure improvement. 4. DM-2; of uncontrolled with Hyperglycemia of 222 mg/dL present on admission on glipizide and dulaglutide with diabetic neuropathy adding to the medical complexity of #1 - #3 - ADA/cardiac diet. FSBS q. AC/HS plus SSI. Check HgbA1c to objectively assess quality of diabetic control. 5. Recent admission here from August 04, 2024 to August 05, 2024 for treatment of AE COPD with bronchiectasis with sputum cultures positive for pansensitive Pseudomonas aeruginosa complicated by mild Hyponatremia of 129 mmol/L present on admission - Noted. 6. Paroxysmal Atrial Fibrillation; on diltiazem and apixaban - Continue current treatment plan. 7. Essential Hypertension; on lisinopril and clonidine - Resume home regimen. 8. Hyperlipidemia; on atorvastatin - Maintain statin. 9. History of TIA - Noted. 10. CKD; stage III - Stable. 11. PAOLA; on ferrous gluconate - Resume oral iron supplement. 12. History of bilateral carotid bruits - Noted. 13. PAD; with history of claudication on clopidogrel - Continue clopidogrel as before. 14. RLS - Stable with patient currently not on treatment for this. 15. History of depression; on duloxetine and trazodone - Maintain home regimen. 16. GERD; on pantoprazole - Resume PPI. 17. OA; primarily of the Right shoulder - Stable. Give acetaminophen prn. 18. DVT prophylaxis - Patient on apixaban for #6 which will be continued. Total time: Approximately (but not less than) 75 minutes. Charges/Coding Visit Charges Inpatient E&M: 35335 Init Hosp L3
[2024-08-26] MEDS: MethylPREDNISolone 125 MG/2 ML Vial 60 MG IV ×2 (03:00→10:44)
[2024-08-26] MEDS: Ceftriaxone 1 GM/50 ML BAG IV (03:00)
[2024-08-26 03:11] LABS: Mucous, Urine 0 SEEN /hpf (<or=2+); Red Blood Cells-Urine 0 SEEN /hpf (0-5)
[2024-08-26 03:13] LABS: Color, Urine Yellow (Yellow); Glucose, Dipstick Normal (Normal); Ketone-Dipstick 5 mg/dl (Negative); Leukocyte Esterase-Dipstick 25 /ul (Negative); Nitrite-Dipstick Negative (Negative); Occult Blood-Urine 10 /ul (Negative); Protein-Dipstick 30 mg/dl (Negative); Urine Bilirubin Dipstick Negative (Negative); Urine Clarity Clear (Clear); Urine Urobilinogen Normal (Normal)
[2024-08-26 03:31] LABS: Bacteria 1+ /hpf (None Seen); Squamous Epithelial Cells - UA 0-5 SEEN /hpf (5-10); Transitional Epithelial - Ur 0-5 SEEN /hpf (0-5); White Blood Cells 5-10 SEEN /hpf (0-5)
[2024-08-26 03:45] LABS: Thyroid Stim Hormone (TSH) 0.656 uIU/mL (0.358-3.740)
[2024-08-26] MEDS: Azithromycin 500 MG in 0.9% Normal Saline (250mL Bag) 250 ML 255 MG IV (03:48)
[2024-08-26] MEDS: 0.9% Normal Saline (1000mL) 1,000 ML 70 ML IV (03:48)
[2024-08-26 03:54] LABS: Hemoglobin A1c 7.8 % (3.8-5.6)
[2024-08-26] MEDS: Ipratropium Bromide 0.06% NASAL SPRAY 2 SPRAY NASAL ×3 (06:28→22:09)
[2024-08-26] MEDS: Insulin Lispro 100 UNIT/ML INSULN.PEN SC ×4 (06:28→22:45)
[2024-08-26 06:41] LABS: Bedside Glucose 240 mg/dL (74-106)
[2024-08-26 07:03] LABS: Magnesium 2.1 mg/dL (1.6-2.6); Phosphorus 3.3 mg/dL (2.5-4.9)
[2024-08-26] MEDS: Calcium Carbonate 500 MG Tablet 1000 MG PO (10:38)
[2024-08-26] MEDS: Ascorbic Acid 500 MG Tablet PO (10:40)
[2024-08-26] MEDS: Lactobacillis Acidophilus 1 CAP PO ×3 (10:41→22:09)
[2024-08-26] MEDS: APIXABAN 2.5 MG TABLET (WCH) PO ×2 (10:42→22:10)
[2024-08-26] MEDS: dilTIAZem CD 240 MG Capsule PO (10:42)
[2024-08-26] MEDS: Lisinopril 5 MG Tablet PO (10:43)
[2024-08-26] MEDS: Cholecalciferol (Vit D3) 125 MCG CAPSULE (5,000 UNITS) PO (10:43)
[2024-08-26] MEDS: Pantoprazole Sodium 40 MG Tablet PO (10:44)
[2024-08-26] MEDS: guaiFENesin 1,200 MG Tablet 1200 MG PO ×2 (10:44→22:09)
[2024-08-26] MEDS: Clopidogrel Bisulfate 75 MG Tablet PO (10:44)
[2024-08-26] MEDS: Zinc Sulfate 50 mg zinc (220 mg) ORAL capsule PO (10:45)
[2024-08-26] MEDS: 0.9% Saline Lock 10 ML Syringe IV (10:56)
--- NOTE | 2024-08-26 12:10 | CHAPLAIN ---
Type of Pastoral Visit _x__ Initial Visit ___ Follow-up Visit ___ On-call Visit ___ General Patient Visit ___ Spiritual Assessment ___ Family Conference ___ Bereavement ___ Rapid Response ___ Code Blue ___ Other (describe below) Pastoral Care Referral From _x__ Patient ___ Family ___ Nurse ___ Physician ___ Cadastral Surveyor ___ Perfusionist ___ Other (describe below) Sacrament/Intervention _x__ Active listening ___ Anointing ___ Gnosticism ___ Bereavement ___ Communion ___ Oanh exploration ___ ___ Life review _x__ Prayer ___ Reconciliation ___ Sacrament of Sick _x__ Supportive presence ___ Wedding ___ Other (describe below) Pastoral Comments came into room as RN was completing the medications for this patient; daughter is at bedside; both are welcoming; pt presents with a positive attitude; daughter acknowledges that the pt has had a very difficult time with her breathing and 'this is so necessary to get better help' and 'this has been going on for a long time'; pt starts to talk and have conversation but then stops and takes a rest; due to pt being unable to continue a conversation this visit was kept brief; both welcome a prayer for support today; daughter expresses appreciation for the care and concern
[2024-08-26] MEDS: Ferrous Gluconate 324 MG Tablet PO (12:19)
--- NOTE | 2024-08-26 15:00 | CASEMGMT ---
OTONIEL CROWLEY Assessment: Face to Face with pt for initial transition planning/care coordination assessment. OTONIEL CROWLEY introduced self and role at [facility], pt voices understanding and consents to assessment. Pt is A&O x4 and answers all questions appropriately at this time. Pt dtr present in room and agreeable to assessment with dtr present. Pt sitting up in chair with oxygen on in no distress. Care providers, pharmacy, and demographics verified/updated. Admitting Dx: AE COPD, pneumonia and respiratory insufficiency Strata Score: 3 PCP:Jeff Suresh NP Specialists:Friend, GI; Daija, vasc; Luke Pendleton, pulm; Reilly, cardio; Sudhir nephro; Avery, pod Preferred Pharmacy: [facility] Insurance: My Care [facility] Prescription Benefit: yes LNOK: Kath Lofton, arjunr; arjun Alfaror Living Arrangements: Pt lives alone in an apt with an elevator to enter. Pt reports she is typically I in ADLs. Pt does her own grocery shopping and meals. Pt states recently she has been having issues with doing her own ADLs. Pt has an aide through [employer] that comes 2x/wk for 3 hours each day. Aide does laundry and cleaning. Transportation: Pt dtr provides transportation. DME:shower chair, standard walker, w/c, cane, rollator, BGM with sufficient supply of strips and lancets, nebulizer, BP cuff HHC/SNF: Pt is current with [facility] and has been to [facility] in the past. Pt states she is being seen by SN and therapy through [facility]. She states her goal is to resume their services upon dc and denies need for a list. Pt dtr states she feels that the patient should get some rehab prior to coming home. Pt state she needs to get her breathing under control first. OTONIEL CROWLEY to check with pt tomorrow to see how she is feeling and if she feels she can return home with [facility]. Pt dtr, Jaylene and patient agreeable to this. Pt states no further concerns/needs. CM to follow. Advised pt to ask CM if any further question/concerns/needs arise, voices understanding. Pt Goal: Home with [facility] resuming Plan: SHARAD, OTONIEL CROWLEY fo follow up tomorrow. Follow for oxygen. Re FREDERICK CM
--- NOTE | 2024-08-26 18:31 | PCM.HOSP.N ---
Hospitalist Note Patient was seen and examined today, she has an extensive history of COPD but is on no oxygen at home, she saw Dr. Corey in the past and now has seen the nurse practitioners in the pulmonary practice. Patient's family voiced their opinion that they do not feel that she has received adequate treatment recently, they requested to see Dr. Pendleton of possible. I reviewed the patient's chart and in June she had a sputum culture that was positive for Pseudomonas which may be secondary to colonization and possible bronchiectasis. I have changed the patient's antibiotic to Zosyn today, I placed her on programmed aerosol treatments and I reduced the patient's IV Solu-Medrol due to elevated blood sugar-patient does have type 2 diabetes. Pulse ox will continue to be monitored.
[2024-08-26] MEDS: Glucerna Shake 120 ML LIQUID PO (18:46)
[2024-08-26 20:15] LABS: Bedside Glucose 487 mg/dL (74-106)
[2024-08-26] MEDS: Piperacil/Tazobactam 3.375 GM in 0.9% Normal Saline (50mL MB+) 50 ML IV (22:05)
[2024-08-26] MEDS: traZODone 50 MG Tablet PO (22:09)
[2024-08-26] MEDS: Magnesium Chloride 64 MG Delay Rel.Tablet PO (22:10)
[2024-08-26] MEDS: cloNIDine HCl 0.2 MG Tablet PO (22:10)
[2024-08-26] MEDS: Atorvastatin Calcium 40 MG Tablet PO (22:10)
[2024-08-26] MEDS: DULoxetine Hcl 30 MG Capsule PO (22:10)
[2024-08-26 22:45] LABS: Bedside Glucose 321 mg/dL (74-106)
[2024-08-26] MEDS: Potassium Chloride Oral Tablet 20 MEQ 40 MEQ PO (23:15)
[2024-08-26] MEDS: Insulin Glargine-YFGN 100 UNIT/ML Pen 40 UNIT SC (23:15)
[2024-08-26 23:21] LABS: Glucose 702 mg/dL (74-106)
[2024-08-27] VITALS (10 sets, daily range): BP systolic 129–142; BP diastolic 60–72; PULSE 87–105; RESP 16–20; TEMP 36.1–37; O2SAT 93–97; BMI 24.3
[2024-08-27 00:45] LABS: BUN 51 mg/dL (7-18); Calcium,Total 8.8 mg/dL (8.5-10.1); Chloride 98 mmol/L (98-107); Creatinine, Serum 1.56 mg/dL (0.55-1.02); EST Glomerular Filtration Rate 34 mL/min (>60); Est Glom Filt Rate - Afr Amer 41 mL/min (>60); Estimated Creatinine Clearance 22.26 ml/min; Potassium 5.5 mmol/L (3.5-5.1); Sodium Level 125 mmol/L (136-145)
[2024-08-27 01:11] LABS: Bedside Glucose 297 mg/dL (74-106)
[2024-08-27] MEDS: MENTHOL 226.8 GM JAR 1 APPLIC TOPICAL ×2 (01:20→05:57)
[2024-08-27] MEDS: 0.9% Normal Saline (1000mL) 1,000 ML 70 ML IV (02:09)
[2024-08-27] MEDS: Ipratropium Bromide 0.06% NASAL SPRAY 2 SPRAY NASAL ×3 (05:09→23:27)
[2024-08-27] MEDS: Piperacil/Tazobactam 3.375 GM in 0.9% Normal Saline (50mL MB+) 50 ML IV ×3 (05:21→23:16)
[2024-08-27] MEDS: Insulin Lispro 100 UNIT/ML INSULN.PEN SC ×4 (06:15→23:39)
[2024-08-27 06:41] LABS: Bedside Glucose 238 mg/dL (74-106)
[2024-08-27 06:46] LABS: Absolute Lymphocyte Count 0.59 X10^3/uL (0.83-4.51); Absolute Neutrophil Count 10.4 X10^3/uL (2.0-7.7); Basophil# 0.02 X10^3/uL; Basophil% 0.2 % (0-1); Eosinophil# 0.01 X10^3/uL; Eosinophils% 0.1 % (0-5); Hematocrit 23.5 % (37-47); Hemoglobin 7.2 g/dL (12.0-15.0); Lymphocyte # 0.59 X10^3/ul (0.83-4.51); Mean Corp Hgb Conc 30.6 g/dL (32-36); Mean Corpuscular Hgb 27.8 pg (27.0-32.0); Mean Corpuscular Volume 90.7 fL (81-99); Mean Platelet Vol. 9.5 fl (6.2-12.0); Monocyte# 0.53 X10^3/uL; Monocyte% 4.5 % (0-10); NRBC Flagged by Analyzer 0 % (0-5); Neutrophil # 10.36 X10^3/uL (2.7-7.7); Neutrophil % 87.5 % (47-70); POSITIVE DIFFERENTIAL YES; Platelet Count 533 K/mm3 (150-450); RBC Distribution Width CV 15.9 % (11.6-14.6); RBC Distribution Width SD 52.7 fl (35.1-43.9); Red Blood Count 2.59 M/mm3 (4.2-5.4); White Blood Count 11.8 K/mm3 (4.4-11.0)
[2024-08-27 07:23] LABS: ALB/GLOB Ratio 0.5 RATIO (0.9-2.4); AST(SGOT) 13 U/L (15-37); Alanine Aminotransfer ALT/SGPT 18 U/L (13-56); Albumin, Serum 2.2 g/dL (3.2-5.0); Alkaline Phosphatase 75 U/L (45-117); Anion Gap 9 (5-15); BUN 48 mg/dL (7-18); BUN/Creat Ratio 39.3 RATIO (10-20); Calcium,Total 8.8 mg/dL (8.5-10.1); Chloride 108 mmol/L (98-107); Creatinine, Serum 1.22 mg/dL (0.55-1.02); EST Glomerular Filtration Rate 45 mL/min (>60); Est Glom Filt Rate - Afr Amer 54 mL/min (>60); Estimated Creatinine Clearance 28.44 ml/min; Globulin 4.3 g/dL (2.2-4.2); Glucose 231 mg/dL (74-106); Potassium 5.6 mmol/L (3.5-5.1); Protein, Total 6.5 g/dL (6.4-8.2); Sodium Level 135 mmol/L (136-145)
[2024-08-27] MEDS: Glucerna Shake 120 ML LIQUID PO ×3 (10:26→16:20)
[2024-08-27] MEDS: Pantoprazole Sodium 40 MG Tablet PO (10:27)
[2024-08-27] MEDS: Cholecalciferol (Vit D3) 125 MCG CAPSULE (5,000 UNITS) PO (10:28)
[2024-08-27] MEDS: dilTIAZem CD 240 MG Capsule PO (10:29)
[2024-08-27] MEDS: Calcium Carbonate 500 MG Tablet 1000 MG PO (10:29)
[2024-08-27] MEDS: Lisinopril 5 MG Tablet PO (10:29)
[2024-08-27] MEDS: Lactobacillis Acidophilus 1 CAP PO ×4 (10:29→23:23)
[2024-08-27] MEDS: Zinc Sulfate 50 mg zinc (220 mg) ORAL capsule PO (10:29)
[2024-08-27] MEDS: guaiFENesin 1,200 MG Tablet 1200 MG PO ×2 (10:30→23:24)
[2024-08-27] MEDS: Clopidogrel Bisulfate 75 MG Tablet PO (10:30)
[2024-08-27] MEDS: APIXABAN 2.5 MG TABLET (WCH) PO ×2 (10:30→23:26)
[2024-08-27] MEDS: Ascorbic Acid 500 MG Tablet PO (10:31)
[2024-08-27] MEDS: Acetaminophen 325 MG Tablet 650 MG PO (10:35)
[2024-08-27 11:22] LABS: Bedside Glucose > 500 mg/dL (74-106)
[2024-08-27 12:16] LABS: Glucose 741 mg/dL (74-106)
--- NOTE | 2024-08-27 12:47 | CASEMGMT ---
RN KEO into pt room, pt sitting up in chair eating lunch without oxygen. Pt states she had a rough night as she did not get much sleep due to her neuropathy. Pt states she does want to go home. Pt dtr Jaylene present in room. Jaylene states she wants pt to go to [facility], she is aware that they do not have beds available at this time. She states she would like pt to go home and come back when a bed is available. She is aware this can be done from the community but is not an easy process. Will add HOME SERVICE DIRECTOR to HH referral. Pt still states she does not want a SNF. 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 Discussed local in network list of DME companies should pt need oxygen upon dc, pt chose [employer]. TC danilo Isabel at [facility], she is aware that HOME SERVICE DIRECTOR is requested to be added to pt referral and there will be a green sheet on the chart in case pt dc's over the weekend. Green sheet also for oxygen.
[2024-08-27 13:05] LABS: Bedside Glucose > 500 mg/dL (74-106)
[2024-08-27 13:06] LABS: Bedside Glucose > 500 mg/dL (74-106)
[2024-08-27] MEDS: Ferrous Gluconate 324 MG Tablet PO (13:57)
--- NOTE | 2024-08-27 14:27 | PCM.PN.HOSP ---
Reason for Visit Reason for Visit: Diagnoses Type 2 diabetes mellitus with hyperglycemia (08/26/24) Dehydration (08/26/24) Nicotine dependence, cigarettes, uncomplicated (08/26/24) Essential (primary) hypertension (08/26/24) Paroxysmal atrial fibrillation (08/26/24) Pneumonia, unspecified organism (08/26/24) Chronic obstructive pulmonary disease with (acute) exacerbation (08/26/24) Chronic obstructive pulmonary disease, unspecified (08/26/24) Bronchiectasis, uncomplicated (08/26/24) Other abnormalities of breathing (08/26/24) Subjective Subjective Patient was seen and examined today, I talked with pulmonary medicine and they reviewed her chart and do not feel they can add anything to her care at this time so I canceled her consult. Patient is currently on room air at this time at rest, her latest sputum culture showed mixed normal respiratory stormy, I have elected to stop her Zosyn and reevaluate the patient tomorrow. Patient will remain on aerosol treatments, due to her elevated blood sugar I have decided to discontinue her IV Solu-Medrol. Objective Data Objective Data Vital Signs: Vital Signs Temp Pulse Resp BP Pulse Ox O2 Del Method O2 Flow Rate 97 F L 92 16 142/72 H 94 Room Air 2 08/27/24 05:06 08/27/24 05:24 08/27/24 05:06 08/27/24 05:06 08/27/24 13:10 08/27/24 07:51 08/26/24 22:01 Oxygen Flow Rate (L/min) 2 Oxygen Delivery Method Room Air Weight: 56.3 kg Body Mass Index (BMI) 24.3 Intake & Output: Intake and Output for Last 24 Hours 08/25/24 08/26/24 08/27/24 23:59 23:59 23:59 Intake Total 1855 / 2055 1040 / 1040 Output Total 800 / 800 Balance 1855 / 1755 240 / 240 Lab / Micro Data 08/27/24 05:37 08/27/24 11:25 Labs: Laboratory Results - last 24 hr 08/26/24 12:12: POC Glucose 321 H 08/26/24 17:26: POC Glucose 487 H* 08/26/24 22:17: POC Glucose > 500 H* 08/26/24 22:19: POC Glucose > 500 H* 08/26/24 22:45: Sodium 125 L, Potassium 5.5 H, Chloride 98, Carbon Dioxide 16.0 L, BUN 51 H, Creatinine 1.56 H, Estim Creat Clear Calc 22.26, Est GFR (MDRD) Af Amer 41 L, Est GFR (MDRD) Non-Af 34 L, Glucose 702 H*, Calcium 8.8 08/27/24 00:52: POC Glucose 297 H 08/27/24 05:37: WBC 11.8 H, RBC 2.59 L, Hgb 7.2 L, Hct 23.5 L, MCV 90.7, MCH 27.8, MCHC 30.6 L, RDW Std Deviation 52.7 H, RDW Coeff of Tia 15.9 H, Plt Count 533 H, MPV 9.5, Immature Gran % (Auto) 2.700 H, Neut % (Auto) 87.5 H, Lymph % (Auto) 5.0 L, [place] % (Auto) 4.5, Eos % (Auto) 0.1, Baso % (Auto) 0.2, Absolute Neuts (auto) 10.4 H, Absolute Lymphs (auto) 0.59 L, Nucleated RBC % 0, Sodium 135 L, Potassium 5.6 H, Chloride 108 H, Carbon Dioxide 18.0 L, Anion Gap 9, BUN 48 H, Creatinine 1.22 H, Estim Creat Clear Calc 28.44, Est GFR (MDRD) Af Amer 54 L, Est GFR (MDRD) Non-Af 45 L, BUN/Creatinine Ratio 39.3 H, Glucose 231 H, Calcium 8.8, Total Bilirubin 0.20, AST 13 L, ALT 18, Alkaline Phosphatase 75, Total Protein 6.5, Albumin 2.2 L, Globulin 4.3 H, Albumin/Globulin Ratio 0.5 L 08/27/24 06:14: POC Glucose 238 H 08/27/24 11:01: POC Glucose > 500 H* 08/27/24 11:25: Glucose 741 H* Micro: Microbiology 08/26/24 22:00 Urine, Random Legionella Antigen - Final 08/26/24 22:00 Urine, Random Streptococcus pneumoniae Antigen (M - Final 08/26/24 01:45 Mucosa - Nose SARS-CoV-2, Influenza & RSV (PCR) - Final Physical Exam Const alert, oriented x3 and no apparent distress General Appearance: cooperative, well kempt and well developed Orientation / Consciousness: awake, oriented to person, oriented to place and oriented to time HEENT normocephalic, head/scalp atraumatic and moist oral mucous membranes Eyes PERRL, EOMs intact bilaterally and conjunctivae normal Neck supple, no JVD, thyroid normal and no carotid bruits General: trachea midline Resp normal respiratory effort Resp Narrative: Breath sounds are diminished bilaterally, no rales rhonchi or wheezes were noted Auscultation: Negative for rales, rhonchi or wheezes Cardio regular rate, regular rhythm, S1 normal heart sound, S2 normal heart sound, no murmurs, no rub and no gallops GI normal to inspection, nondistended, normoactive bowel sounds, soft to palpation, non-tender and non-distended Extremity no clubbing, cyanosis or edema Skin no rashes or lesions noted General Skin Exam: no breakdown Neuro oriented x3, CN's II-XII intact bilaterally, moves all extremities, no focal motor deficits and no sensory deficits noted Sensorium / Orientation: awake and alert Speech: speech normal Psych affect normal Assessment & Plan Assessment/Plan (1) Respiratory insufficiency: PLAN: Plan 1. Exacerbation of COPD with hypoxia-again due to the patient's elevated blood sugar her Solu-Medrol was discontinued, she will remain on Pulmicort aerosols. #2 pneumonia was ruled out, patient's antibiotics have been discontinued today #3 type 2 diabetes-exacerbated by IV corticosteroid administration, again Solu-Medrol was discontinued #4 bronchiectasis-complicates care, management, recovery, and prognosis #5 paroxysmal [id number] is on diltiazem and Eliquis #6 essential hypertension-patient is on lisinopril and clonidine Total clinical time spent by myself addressing the patient's medical issues, reviewing all of her data, and collaborating with patient's care team: 35 minutes Charges/Coding Visit Charges Inpatient E&M: 77286 Subs Hosp L2
[2024-08-27] MEDS: Insulin Glargine-YFGN 100 UNIT/ML Pen 20 UNIT SC ×2 (16:15→23:40)
[2024-08-27 18:20] LABS: Bedside Glucose 473 mg/dL (74-106)
[2024-08-27 18:20] LABS: Bedside Glucose > 500 mg/dL (74-106)
[2024-08-27] MEDS: Albuterol 2.5 MG/3 ML VIAL.NEB. INHALATION (20:46)
[2024-08-27] MEDS: cloNIDine HCl 0.2 MG Tablet PO (23:24)
[2024-08-27] MEDS: Atorvastatin Calcium 40 MG Tablet PO (23:24)
[2024-08-27] MEDS: DULoxetine Hcl 30 MG Capsule PO (23:25)
[2024-08-27] MEDS: traZODone 50 MG Tablet PO (23:26)
[2024-08-27] MEDS: Magnesium Chloride 64 MG Delay Rel.Tablet PO (23:28)
[2024-08-28] VITALS (13 sets, daily range): BP systolic 124–168; BP diastolic 56–73; PULSE 81–109; RESP 16–22; TEMP 36.3–36.8; O2SAT 93–99; BMI 24.7
[2024-08-28 00:27] LABS: Bedside Glucose 276 mg/dL (74-106)
[2024-08-28] MEDS: Insulin Lispro 100 UNIT/ML INSULN.PEN SC ×3 (06:07→22:26)
[2024-08-28] MEDS: Piperacil/Tazobactam 3.375 GM in 0.9% Normal Saline (50mL MB+) 50 ML IV (06:08)
[2024-08-28 06:32] LABS: Bedside Glucose 154 mg/dL (74-106)
[2024-08-28] MEDS: Ipratropium/Albuterol Sulfate 3 ML AMPUL.NEB INHALATION ×5 (07:25→23:40)
[2024-08-28] MEDS: Calcium Carbonate 500 MG Tablet 1000 MG PO (09:09)
[2024-08-28] MEDS: Lactobacillis Acidophilus 1 CAP PO ×4 (09:09→22:23)
[2024-08-28] MEDS: dilTIAZem CD 240 MG Capsule PO (09:10)
[2024-08-28] MEDS: Zinc Sulfate 50 mg zinc (220 mg) ORAL capsule PO (09:10)
[2024-08-28] MEDS: Lisinopril 5 MG Tablet PO (09:10)
[2024-08-28] MEDS: Pantoprazole Sodium 40 MG Tablet PO (09:10)
[2024-08-28] MEDS: Cholecalciferol (Vit D3) 125 MCG CAPSULE (5,000 UNITS) PO (09:11)
[2024-08-28] MEDS: Ascorbic Acid 500 MG Tablet PO (09:11)
[2024-08-28] MEDS: APIXABAN 2.5 MG TABLET (WCH) PO ×2 (09:11→22:22)
[2024-08-28] MEDS: guaiFENesin 1,200 MG Tablet 1200 MG PO ×2 (09:11→22:21)
[2024-08-28] MEDS: Clopidogrel Bisulfate 75 MG Tablet PO (09:12)
[2024-08-28] MEDS: Insulin Glargine-YFGN 100 UNIT/ML Pen 20 UNIT SC (09:12)
[2024-08-28] MEDS: Glucerna Shake 120 ML LIQUID PO ×3 (09:14→17:40)
--- NOTE | 2024-08-28 10:47 | PN.HOSP_ITS ---
Reason for Visit Reason for Visit: Diagnoses Type 2 diabetes mellitus with hyperglycemia (08/26/24) Dehydration (08/26/24) Nicotine dependence, cigarettes, uncomplicated (08/26/24) Essential (primary) hypertension (08/26/24) Paroxysmal atrial fibrillation (08/26/24) Pneumonia, unspecified organism (08/26/24) Chronic obstructive pulmonary disease with (acute) exacerbation (08/26/24) Chronic obstructive pulmonary disease, unspecified (08/26/24) Bronchiectasis, uncomplicated (08/26/24) Other abnormalities of breathing (08/26/24) Subjective Subjective Patient was seen and examined today, she is on minimal nasal cannula oxygen at rest, she is wheezing overall lung laughlin today and I have decided to place her back on IV Solu-Medrol, she will require more insulin to control her blood sugar. Objective Data Objective Data Vital Signs: Vital Signs Temp Pulse Resp BP Pulse Ox O2 Del Method O2 Flow Rate 97.5 F L 85 16 137/66 H 99 Nasal Cannula 1 08/28/24 08:22 08/28/24 08:31 08/28/24 08:22 08/28/24 08:22 08/28/24 08:22 08/28/24 08:22 08/28/24 08:22 Oxygen Flow Rate (L/min) 1 Oxygen Delivery Method Nasal Cannula Weight: 57.1 kg Body Mass Index (BMI) 24.7 Intake & Output: Intake and Output for Last 24 Hours 08/26/24 08/27/24 08/28/24 23:59 23:59 23:59 Intake Total 1855 / 2055 2540 / 2540 100 / 100 Output Total 800 / 800 Balance 1855 / 1755 1740 / 1740 100 / 100 Lab / Micro Data 08/27/24 05:37 08/27/24 11:25 Labs: Laboratory Results - last 24 hr 08/26/24 22:17: POC Glucose > 500 H* 08/26/24 22:19: POC Glucose > 500 H* 08/27/24 11:01: POC Glucose > 500 H* 08/27/24 11:25: Glucose 741 H* 08/27/24 16:14: POC Glucose > 500 H* 08/27/24 17:54: POC Glucose 473 H* 08/27/24 23:38: POC Glucose 276 H 08/28/24 06:03: POC Glucose 154 H Micro: Microbiology 08/26/24 02:49 Blood Culture (Wb) - Anticubital Right Blood Culture - Preliminary No growth in 48 hours. 08/26/24 01:45 Blood Culture (Wb) - Anticubital Left Blood Culture - Preliminary No growth in 48 hours. 08/26/24 22:00 Urine, Random Legionella Antigen - Final 08/26/24 22:00 Urine, Random Streptococcus pneumoniae Antigen (M - Final 08/26/24 01:45 Mucosa - Nose SARS-CoV-2, Influenza & RSV (PCR) - Final Physical Exam Narrative alert, oriented x3 and no apparent distress General Appearance: cooperative, well kempt and well developed Orientation / Consciousness: awake, oriented to person, oriented to place and oriented to time HEENT normocephalic, head/scalp atraumatic and moist oral mucous membranes Eyes PERRL, EOMs intact bilaterally and conjunctivae normal Neck supple, no JVD, thyroid normal and no carotid bruits General: trachea midline Resp normal respiratory effort Resp Narrative: Breath sounds are diminished bilaterally, no rales or rhonchi Auscultation: Expiratory wheezes are noted over all lung field Cardio regular rate, regular rhythm, S1 normal heart sound, S2 normal heart sound, no murmurs, no rub and no gallops GI normal to inspection, nondistended, normoactive bowel sounds, soft to palpation, non-tender and non-distended Extremity no clubbing, cyanosis or edema Skin no rashes or lesions noted General Skin Exam: no breakdown Neuro oriented x3, CN's II-XII intact bilaterally, moves all extremities, no focal motor deficits and no sensory deficits noted Sensorium / Orientation: awake and alert Speech: speech normal Psych affect normal Assessment & Plan Assessment/Plan (1) COPD exacerbation: (2) Respiratory insufficiency: PLAN: Plan 1. Exacerbation of COPD with hypoxia-patient was placed back on IV Solu-Medrol today, blood sugars will be monitored. #2 pneumonia was ruled out, patient's antibiotics have been discontinued #3 type 2 diabetes-exacerbated by IV corticosteroid administration, again Solu- Medrol was discontinued #4 bronchiectasis-complicates care, management, recovery, and prognosis #5 paroxysmal [id number] is on diltiazem and Eliquis #6 essential hypertension-patient is on lisinopril and clonidine Total clinical time spent by myself addressing the patient's medical issues, reviewing all of her data, and collaborating with patient's care team: 35 minutes Charges/Coding Visit Charges Inpatient E&M: [id number] Subs Hosp L2
[2024-08-28] MEDS: Ferrous Gluconate 324 MG Tablet PO (11:54)
[2024-08-28 12:14] LABS: Bedside Glucose 372 mg/dL (74-106)
[2024-08-28] MEDS: Ipratropium Bromide 0.06% NASAL SPRAY 2 SPRAY NASAL ×2 (13:31→22:21)
--- NOTE | 2024-08-28 16:06 | CASEMGMT ---
Addendum entered by Tianna Esparza 08/28/24 17:16: Social Work SW did leave a message for TCU with referral. CODEY Scales Original Note: Social Work SW met w/pt, daughters in room in regard to discharge plan. They are all in agreement that pt needs SNF at discharge. SW provided to pt and family a list from [facility] of snf facilities in network w/pt's insurance, in pt's preferred geographic area and complete w/quality and resource use data. Daughter Jaylene states they would like TCU here, then [facility] and then [facility]. SW explained that none of them came up as in network but we can make referrals Friday to see. SW did ask them to review the list and come up w/other choices should they be needed. Pt and family state understanding. Plan will be for SNF, SW to make referrals on Friday. CODEY Scales
[2024-08-28] MEDS: Insulin Lispro 100 UNIT/ML INSULN.PEN 20 UNIT SC (16:33)
[2024-08-28 16:37] LABS: Bedside Glucose 463 mg/dL (74-106)
[2024-08-28] MEDS: Acetaminophen 325 MG Tablet 650 MG PO (19:59)
[2024-08-28] MEDS: MENTHOL 226.8 GM JAR 1 APPLIC TOPICAL (20:04)
[2024-08-28] MEDS: Atorvastatin Calcium 40 MG Tablet PO (22:21)
[2024-08-28] MEDS: Magnesium Chloride 64 MG Delay Rel.Tablet PO (22:21)
[2024-08-28] MEDS: cloNIDine HCl 0.2 MG Tablet PO (22:22)
[2024-08-28] MEDS: DULoxetine Hcl 30 MG Capsule PO (22:22)
[2024-08-28] MEDS: traZODone 50 MG Tablet PO (22:22)
[2024-08-28] MEDS: Insulin Glargine-YFGN 100 UNIT/ML Pen 35 UNIT SC (22:26)
[2024-08-29] VITALS (12 sets, daily range): BP systolic 117–157; BP diastolic 53–74; PULSE 45–108; RESP 16–24; TEMP 36.4–36.6; O2SAT 94–100; BMI 25.0
[2024-08-29 02:16] LABS: Bedside Glucose 427 mg/dL (74-106)
[2024-08-29] MEDS: Ipratropium/Albuterol Sulfate 3 ML AMPUL.NEB INHALATION ×5 (04:18→23:15)
[2024-08-29] MEDS: Ipratropium Bromide 0.06% NASAL SPRAY 2 SPRAY NASAL ×3 (06:28→21:40)
[2024-08-29] MEDS: Insulin Lispro 100 UNIT/ML INSULN.PEN SC ×4 (06:29→21:41)
[2024-08-29 06:51] LABS: Bedside Glucose 250 mg/dL (74-106)
[2024-08-29] MEDS: Insulin Lispro 100 UNIT/ML INSULN.PEN 15 UNIT SC ×3 (09:08→17:15)
[2024-08-29] MEDS: Insulin Glargine-YFGN 100 UNIT/ML Pen 35 UNIT SC ×2 (09:09→21:42)
[2024-08-29] MEDS: Lactobacillis Acidophilus 1 CAP PO ×4 (09:10→21:40)
[2024-08-29] MEDS: Calcium Carbonate 500 MG Tablet 1000 MG PO (09:10)
[2024-08-29] MEDS: APIXABAN 2.5 MG TABLET (WCH) PO ×2 (09:10→21:41)
[2024-08-29] MEDS: Lisinopril 5 MG Tablet PO (09:11)
[2024-08-29] MEDS: Clopidogrel Bisulfate 75 MG Tablet PO (09:11)
[2024-08-29] MEDS: guaiFENesin 1,200 MG Tablet 1200 MG PO ×2 (09:11→21:42)
[2024-08-29] MEDS: dilTIAZem CD 240 MG Capsule PO (09:11)
[2024-08-29] MEDS: Pantoprazole Sodium 40 MG Tablet PO (09:11)
[2024-08-29] MEDS: Zinc Sulfate 50 mg zinc (220 mg) ORAL capsule PO (09:12)
[2024-08-29] MEDS: Cholecalciferol (Vit D3) 125 MCG CAPSULE (5,000 UNITS) PO (09:12)
[2024-08-29] MEDS: Ascorbic Acid 500 MG Tablet PO (09:13)
[2024-08-29 09:23] LABS: Hematocrit 25.8 % (37-47); Hemoglobin 7.7 g/dL (12.0-15.0); Mean Corp Hgb Conc 29.8 g/dL (32-36); Mean Corpuscular Hgb 28.1 pg (27.0-32.0); Mean Corpuscular Volume 94.2 fL (81-99); Mean Platelet Vol. 9.2 fl (6.2-12.0); POSITIVE COUNT YES; POSITIVE MORPHOLOGY YES; Platelet Count 695 K/mm3 (150-450); RBC Distribution Width CV 16.1 % (11.6-14.6); RBC Distribution Width SD 56.2 fl (35.1-43.9); Red Blood Count 2.74 M/mm3 (4.2-5.4)
[2024-08-29 09:25] LABS: Differential Indicated MANUAL DIFF
[2024-08-29 10:05] LABS: Lymphocyte 12 % (19-41); Metamyelocyte 3 % (0-1); Monocyte 3 % (0-10); Neutrophil-Band 3 % (0-5); Total Cells Counted 100 (MANUAL DIFF)
[2024-08-29 10:06] LABS: Myelocyte 1 % (0-0); Neutrophil-Segmented 78 % (47-70)
[2024-08-29 10:07] LABS: Ovalocyte 1+; Platelet Estimate MKD DEC (ADEQ); Polychromasia 1+; Target Cells 1+
[2024-08-29 10:08] LABS: Tear Drop Cell 1+
[2024-08-29 10:09] LABS: Absolute Lymphocyte Count 1.92 X10^3/uL (0.83-4.51); Absolute Neutrophil Count 12.9 X10^3/uL (2.0-7.7)
--- NOTE | 2024-08-29 10:56 | PCM.PN.HOSP ---
Reason for Visit Reason for Visit: Diagnoses Type 2 diabetes mellitus with hyperglycemia (08/26/24) Dehydration (08/26/24) Nicotine dependence, cigarettes, uncomplicated (08/26/24) Essential (primary) hypertension (08/26/24) Paroxysmal atrial fibrillation (08/26/24) Pneumonia, unspecified organism (08/26/24) Chronic obstructive pulmonary disease with (acute) exacerbation (08/26/24) Chronic obstructive pulmonary disease, unspecified (08/26/24) Bronchiectasis, uncomplicated (08/26/24) Other abnormalities of breathing (08/26/24) Subjective Subjective Patient was seen and examined today, she is comfortable at rest, she has oxygen on for comfort only she does not require it at rest. Patient's daughter yesterday stated that they felt that the patient should go to an extended care facility for short-term rehab services, patient is agreed to this, I let social media coordinator know yesterday. Patient's blood sugars are still elevated I am adjusting insulin as needed. Objective Data Objective Data Vital Signs: Vital Signs Temp Pulse Resp BP Pulse Ox O2 Del Method O2 Flow Rate 97.6 F L 45 L 18 147/74 H 100 Nasal Cannula 2 08/29/24 09:35 08/29/24 09:35 08/29/24 09:35 08/29/24 09:35 08/29/24 09:35 08/29/24 09:35 08/29/24 09:50 Oxygen Flow Rate (L/min) 2 Oxygen Delivery Method Nasal Cannula Weight: 57.9 kg Body Mass Index (BMI) 25.0 Intake & Output: Intake and Output for Last 24 Hours 08/27/24 08/28/24 08/29/24 23:59 23:59 23:59 Intake Total 2540 / 2540 1000 / 1200 350 / 350 Output Total 800 / 800 Balance 1740 / 1740 1000 / 1200 350 / 350 Lab / Micro Data 08/29/24 09:10 08/27/24 11:25 Labs: Laboratory Results - last 24 hr 08/28/24 11:52: POC Glucose 372 H 08/28/24 16:18: POC Glucose 463 H* 08/28/24 22:25: POC Glucose 427 H 08/29/24 06:26: POC Glucose 250 H 08/29/24 09:10: WBC 16.0 H, RBC 2.74 L, Hgb 7.7 L, Hct 25.8 L, MCV 94.2, MCH 28.1, MCHC 29.8 L, RDW Std Deviation 56.2 H, RDW Coeff of Tia 16.1 H, Plt Count 695 H, MPV 9.2, Neut % (Auto) Not Reportable, Absolute Neuts (auto) 12.9 H, Absolute Lymphs (auto) 1.92, Total Counted 100, Neutrophils % (Manual) 78 H, Band Neutrophils % 3, Lymphocytes % (Manual) 12 L, Monocytes % (Manual) 3, Metamyelocytes % 3 H, Myelocytes % 1 H, Diff Path Review November, Platelet Estimate MKD DEC, Polychromasia 1+, Target Cells 1+, Tear Drop Cells 1+, Ovalocytes 1+ Micro: Microbiology 08/26/24 03:00 Urine, Clean Catch Urine Culture - Final Culture exhibits no growth. 08/26/24 02:49 Blood Culture (Wb) - Anticubital Right Blood Culture - Preliminary No growth in 48 hours. 08/26/24 01:45 Blood Culture (Wb) - Anticubital Left Blood Culture - Preliminary No growth in 48 hours. 08/26/24 22:00 Urine, Random Legionella Antigen - Final 08/26/24 22:00 Urine, Random Streptococcus pneumoniae Antigen (M - Final 08/26/24 01:45 Mucosa - Nose SARS-CoV-2, Influenza & RSV (PCR) - Final Physical Exam Narrative alert, oriented x3 and no apparent distress General Appearance: cooperative, well kempt and well developed Orientation / Consciousness: awake, oriented to person, oriented to place and oriented to time HEENT normocephalic, head/scalp atraumatic and moist oral mucous membranes Eyes PERRL, EOMs intact bilaterally and conjunctivae normal Neck supple, no JVD, thyroid normal and no carotid bruits General: trachea midline Resp normal respiratory effort Resp Narrative: Breath sounds are diminished bilaterally, no rales or rhonchi Auscultation: Expiratory wheezes are noted over all lung field Cardio regular rate, regular rhythm, S1 normal heart sound, S2 normal heart sound, no murmurs, no rub and no gallops GI normal to inspection, nondistended, normoactive bowel sounds, soft to palpation, non-tender and non-distended Extremity no clubbing, cyanosis or edema Skin no rashes or lesions noted General Skin Exam: no breakdown Neuro oriented x3, CN's II-XII intact bilaterally, moves all extremities, no focal motor deficits and no sensory deficits noted Sensorium / Orientation: awake and alert Speech: speech normal Psych affect normal Assessment & Plan Assessment/Plan (1) COPD exacerbation: (2) Respiratory insufficiency: PLAN: Plan 1. Exacerbation of COPD with hypoxia-patient was placed back on IV Solu-Medrol , blood sugars will be monitored. #2 pneumonia was ruled out, patient's antibiotics have been discontinued #3 type 2 diabetes-exacerbated by IV corticosteroid administration, blood sugars will be monitored #4 bronchiectasis-complicates care, management, recovery, and prognosis #5 paroxysmal I-koa-[id number] is on diltiazem and Eliquis #6 essential hypertension-patient is on lisinopril and clonidine #7 acute debility-again patient's family and the patient would like to go to an extended care facility for short-term rehab services, a request will have to be placed to the patient's insurance company Total clinical time spent by myself addressing the patient's medical issues, reviewing all of her data, and collaborating with patient's care team: 35 minutes Charges/Coding Visit Charges Inpatient E&M: 18519 Subs Hosp L2
[2024-08-29] MEDS: Ferrous Gluconate 324 MG Tablet PO (11:10)
[2024-08-29 11:33] LABS: Bedside Glucose 404 mg/dL (74-106)
--- NOTE | 2024-08-29 14:33 | CPS ---
This RT walked into pt room, Pt was getting dried from her shower, her RN daughter was helping her. pt was severly SOB, SpO2=81% on 2lpm, increased to 4lpm. SpO2 is now 93% on 4lpm at rest. Pt does have A-fib and cold fingers so it is hard to get a reading on her at times.Gave pt her aerosol and her WOB is much better. Family in room.
[2024-08-29 16:14] LABS: Bedside Glucose 183 mg/dL (74-106)
[2024-08-29] MEDS: Glucerna Shake 120 ML LIQUID PO (17:18)
[2024-08-29] MEDS: Acetaminophen 325 MG Tablet 650 MG PO (20:13)
[2024-08-29] MEDS: cloNIDine HCl 0.2 MG Tablet PO (21:40)
[2024-08-29] MEDS: DULoxetine Hcl 30 MG Capsule PO (21:40)
[2024-08-29] MEDS: traZODone 50 MG Tablet PO (21:41)
[2024-08-29] MEDS: Magnesium Chloride 64 MG Delay Rel.Tablet PO (21:42)
[2024-08-29] MEDS: Atorvastatin Calcium 40 MG Tablet PO (21:42)
[2024-08-29] MEDS: MENTHOL 226.8 GM JAR 1 APPLIC TOPICAL (22:45)
[2024-08-29 22:52] LABS: Bedside Glucose 154 mg/dL (74-106)
[2024-08-30] VITALS (11 sets, daily range): BP systolic 135–158; BP diastolic 58–75; PULSE 80–108; RESP 16–20; TEMP 36.6–37.1; O2SAT 95–100; BMI 24.8
[2024-08-30] MEDS: Ipratropium/Albuterol Sulfate 3 ML AMPUL.NEB INHALATION ×4 (03:40→15:29)
[2024-08-30] MEDS: Ipratropium Bromide 0.06% NASAL SPRAY 2 SPRAY NASAL ×3 (05:29→22:16)
[2024-08-30] MEDS: Insulin Lispro 100 UNIT/ML INSULN.PEN SC ×3 (08:45→22:16)
[2024-08-30] MEDS: Insulin Lispro 100 UNIT/ML INSULN.PEN 15 UNIT SC ×3 (08:46→16:46)
[2024-08-30] MEDS: Calcium Carbonate 500 MG Tablet 1000 MG PO (08:47)
[2024-08-30] MEDS: Glucerna Shake 120 ML LIQUID PO ×3 (08:48→16:47)
[2024-08-30 09:10] LABS: Bedside Glucose 161 mg/dL (74-106)
[2024-08-30] MEDS: dilTIAZem CD 240 MG Capsule PO (10:09)
[2024-08-30] MEDS: Pantoprazole Sodium 40 MG Tablet PO (10:09)
[2024-08-30] MEDS: APIXABAN 2.5 MG TABLET (WCH) PO ×2 (10:10→22:16)
[2024-08-30] MEDS: Insulin Glargine-YFGN 100 UNIT/ML Pen 35 UNIT SC ×2 (10:10→22:17)
[2024-08-30] MEDS: Lactobacillis Acidophilus 1 CAP PO ×4 (10:10→22:16)
[2024-08-30] MEDS: Cholecalciferol (Vit D3) 125 MCG CAPSULE (5,000 UNITS) PO (10:11)
[2024-08-30] MEDS: Zinc Sulfate 50 mg zinc (220 mg) ORAL capsule PO (10:11)
[2024-08-30] MEDS: Lisinopril 5 MG Tablet PO (10:11)
[2024-08-30] MEDS: Ascorbic Acid 500 MG Tablet PO (10:11)
[2024-08-30] MEDS: guaiFENesin 1,200 MG Tablet 1200 MG PO ×2 (10:11→22:17)
[2024-08-30] MEDS: Clopidogrel Bisulfate 75 MG Tablet PO (10:11)
--- NOTE | 2024-08-30 10:41 | CASEMGMT ---
Social Work- SW met with pt and pt daughter to discuss preferences at discharge. Pt update that [facility] is not in-network. Pt selects [facility] as FOC and [facility] as alternate. DCA notified of referral request. SW remains available to follow. ODALYS Villalobos
[2024-08-30 10:58] LABS: Ferritin 46 ng/mL (8-252); Iron 20 ug/dL (50-170); Iron Binding Capacity,Total 250 ug/dL (250-450)
[2024-08-30] MEDS: Ferrous Gluconate 324 MG Tablet PO (11:46)
--- NOTE | 2024-08-30 11:51 | CASEMGMT ---
Addendum entered by Ashely Manley 08/30/24 14:42: [facility] declined d/t no bed availability. SW updated. Ashely Manley DC Planning Asst. Original Note: Pt requested referral to [facility] but they are full. SW updated. Referral sent to [facility]. Ashely Manley DC Planning Asst.
[2024-08-30 12:30] LABS: Bedside Glucose 253 mg/dL (74-106)
[2024-08-30] MEDS: 0.9% Saline Lock 10 ML Syringe IV (14:05)
--- NOTE | 2024-08-30 15:19 | CASEMGMT ---
Social Work- SW met with pt to update that [facility] both were unable to accept pt referral. A list of SNF providers including quality and resource use data and consistent with the patient?s preferred geographic region, medical needs, and insurance network were provided from the [employer] Guide. Pt will review with pt daughters. SW remains available to follow. ODALYS Villalobos
--- NOTE | 2024-08-30 16:15 | TREXTCAR_ITS ---
Diet Diet Order/Speech Therapy: 08/26/24 03:27 Diet: Consistent Carb - Calorie Controlled Food consistency:: Regular Liquid Consistency:: Regular/Thin How many daily calories?: 1800 calorie Routine Orders/Code Status Enema Type: Fleetz Enema Frequency: Daily PRN DC O2, CPAP, BIPAP needs Home O2 Discharge instructions: No Therapies Weight Bearing: Weight bearing as tolerated Physical Therapy: Eval and Treat Occupational Therapy: Eval and Treat Problem/Diagnosis (1) COPD exacerbation: Status: Chronic Code(s): J44.1 - Chronic obstructive pulmonary disease with (acute) exacerbation (2) Respiratory insufficiency: Status: Acute Code(s): R06.89 - Other abnormalities of breathing Allergies/Procedures Done in Hospital Allergies ferrous sulfate Allergy (Intermediate, Verified 08/26/24 01:09) Other had a reaction to iv iron iron Adverse Reaction (Severe, Verified 08/26/24 01:09) Low blood pressure REACTION BASED ON IV IRON. ORAL IRON DOESNOT CAUSE SAME RESPONSE. gabapentin Adverse Reaction (Intermediate, Verified 08/26/24 01:09) Pedal edema pregabalin (From Lyrica) Adverse Reaction (Intermediate, Verified 08/26/24 01:09) Pedal edema codeine Adverse Reaction (Verified 08/26/24 01:09) Nausea Tetracyclines Adverse Reaction (Verified 08/26/24 01:09) Nausea Procedures: None Type of Care/Length of Stay Estimated LOS: Convalescent Care Less Than 30 days Type of Care Needed: Intermediate Rehab Potential: Good Prognosis: Good Additional Orders/Day of Discharge Day of Discharge: 08/30/24 Dietary and Speech Recommendations Dietitian Recommendations/Changes: Adjust to cardiac;1800 calorie controlled/consistent carbohydrate diet. PO still needs to be established. Will order 120ml glucerna shake TID with medpass, per pt request for increase protein. Pt will maintain weight. Reviewed and approved by Nae Olivarez RDN, LD. Discharge Plan Admission Admit Date/Time: 08/26/24 03:04 Primary Reason for Your Visit: acute copd exacerbation Attending Provider: Nai Douglas Primary Care Provider: Jeff Suresh NP Consulting Providers: Kd Mcfarlane; Melissa England; Ramin Worrell Instructions Patient Instructions: COPD Controlled Breathing Dc Discharge Orders/Prescriptions Prescriptions: New prednisone 20 mg tablet 40 mg PO DAILY Qty: 10 0RF Continued ascorbic acid (vitamin C) 500 mg capsule 500 mg PO DAILY clonidine HCl 0.2 mg tablet 0.2 mg PO QHS diltiazem HCl 120 mg capsule,extended release 24hr 240 mg PO DAILY duloxetine 30 mg capsule,delayed release(DR/EC) 30 mg PO QHS Eliquis 2.5 mg tablet 2.5 mg PO Q12H Trulicity 1.5 mg/0.5 mL pen injector 1.5 mg subcut QWEEK Rx Instructions: takes on Friday lisinopril 5 mg tablet 5 mg PO DAILY (DME) spacer See Rx Instructions .Route .MEDSUPPLY Qty: 1 0RF Rx Instructions: As directed (DME) Aerochamber Plus Flow-Vu Spacer See Rx Instructions .ROUTE .MEDSUPPLY Qty: 1 Patient Comments: [NO ORIGINAL SIG] Rx Instructions: As directed ipratropium bromide 42 mcg (0.06 %) spray,non-aerosol 2 spray intranasal TID Qty: 15 2RF Rx Instructions: administer into each nostril ipratropium-albuterol 0.5 mg-3 mg(2.5 mg base)/3 mL solution for nebulization 3 ml inhalation Q4H PRN (Reason: shortness of breath or wheezing) Qty: 180 11RF clopidogrel 75 mg tablet 75 mg PO DAILY glipizide 2.5 mg tablet extended release 24hr 2.5 mg PO DAILY pantoprazole 40 mg tablet,delayed release (DR/EC) 40 mg PO DAILY atorvastatin 40 mg tablet 40 mg PO QHS Patient Comments: [NO ORIGINAL SIG] cholecalciferol (vitamin D3) [Vitamin D3] 125 mcg (5,000 unit) tablet 125 mcg PO DAILY Foltrate 0.5-1 mg tablet 1 tab PO DAILY coQ10 (ubiquinol) [CoQmax Ubiquinol] 100 mg capsule 100 mg PO DAILY magnesium 250 mg tablet 250 mg PO QHS calcium 500 mg tablet 1,000 mg PO DAILY budesonide 0.5 mg/2 mL suspension for nebulization 0.5 mg inhalation Q12H Patient Comments: [NO ORIGINAL SIG] trazodone 50 mg tablet 50 mg PO DAILY albuterol sulfate 90 mcg/actuation HFA aerosol inhaler 2 inh INHALATION Q4H PRN Qty: 18 6RF albuterol sulfate 2.5 mg /3 mL (0.083 %) solution for nebulization 2.5 mg INHALATION Q4H PRN PRN (Reason: COPD) Qty: 90 3RF Changed ferrous gluconate 324 mg (38 mg iron) tablet 324 mg PO BID Qty: 60 2RF Discontinued amoxicillin-pot clavulanate 875-125 mg tablet 1 tab PO BID Qty: 20 0RF Patient Comments: 1st dose on 08/25/24 Referrals / Follow Up: Ryan Hou DO [Med Staff - Active Staff] - Within 2 Weeks (follow up o./a of iron deficiency anemia) Jeff Suresh CARDIOVASCULAR SURGICAL TECH, CARDIOVASCULAR SURGICAL TECH-C [Primary Care Provider] - Within 1 Week Disposition Disposition (needs filled in before D/C Order can be placed): Shelter Facility
--- NOTE | 2024-08-30 16:16 | PN_ITS ---
Subjective Subjective Patient seen and examined. She had no active complaints. Her breathing is improving. Review of systems otherwise negative. Objective Data Objective Data Vital Signs: Vital Signs Temp Pulse Resp BP Pulse Ox O2 Del Method O2 Flow Rate 98.3 F 90 18 149/58 H 98 Nasal Cannula 2 08/30/24 09:00 08/30/24 15:30 08/30/24 15:30 08/30/24 09:00 08/30/24 13:10 08/30/24 09:00 08/30/24 13:10 Oxygen Flow Rate (L/min) 2 Oxygen Delivery Method Nasal Cannula Weight: 126 lb 8.725 oz Body Mass Index (BMI) 24.8 Intake & Output: Intake and Output for Last 24 Hours 08/28/24 08/29/24 08/30/24 23:59 23:59 23:59 Intake Total 1000 / 1200 1000 / 1550 1300 / 1300 Balance 1000 / 1200 1000 / 1550 1300 / 1300 Lab / Micro Data 08/29/24 09:10 08/27/24 11:25 Labs: Laboratory Results - last 24 hr 08/29/24 21:36: POC Glucose 154 H 08/30/24 08:20: Iron 20 L, TIBC 250, Iron Saturation 8.0 L, Ferritin 46 08/30/24 08:44: POC Glucose 161 H 08/30/24 11:42: POC Glucose 253 H Micro: Microbiology 08/26/24 03:00 Urine, Clean Catch Urine Culture - Final Culture exhibits no growth. 08/26/24 02:49 Blood Culture (Wb) - Anticubital Right Blood Culture - Preliminary No growth in 48 hours. 08/26/24 01:45 Blood Culture (Wb) - Anticubital Left Blood Culture - Preliminary No growth in 48 hours. 08/26/24 22:00 Urine, Random Legionella Antigen - Final 08/26/24 22:00 Urine, Random Streptococcus pneumoniae Antigen (M - Final 08/26/24 01:45 Mucosa - Nose SARS-CoV-2, Influenza & RSV (PCR) - Final Physical Exam Const alert, oriented x3, no apparent distress and well nourished General Appearance: cooperative and well developed HEENT normocephalic, head/scalp atraumatic and moist oral mucous membranes Eyes PERRL and EOMs intact bilaterally Neck no lymphadenopathy and supple Lymph Lymphatic: no lymphadenopathy noted and no lymphedema noted Resp Resp Narrative: mildly diminished breath sounds bibasally, no wheezes or crackles. On 2L of oxygen by nasal canula Cardio regular rate, regular rhythm, S1 normal heart sound, S2 normal heart sound and no murmurs GI normal to inspection, nondistended, normoactive bowel sounds, soft to palpation, non-tender and non-distended Extremity normal capillary refill and no clubbing, cyanosis or edema General Extremity: no tenderness to palpation of joints or extremities Skin General Skin Exam: no breakdown and turgor normal Neuro CN's II-XII intact bilaterally, no focal motor deficits and no sensory deficits noted Motor Exam: strength 5/5 throughout and general weakness Psych thought process normal, cooperative and affect normal Appearance: appropriate Assessment & Plan Assessment/Plan (1) PAF (paroxysmal atrial fibrillation): (2) Essential hypertension: (3) COPD exacerbation: PLAN: Plan #Acute exacerbation of COPD * Patient improving. On 2 L of oxygen now. * On IV Solu-Medrol. * Breathing treatments with bronchodilators. * Titrate options maintain saturation above 90%. #Type 2 diabetes mellitus: * On insulin sliding scale. Accu-Cheks ACHS. * On Lantus 35 units twice daily which was started as her home dose of Trulicity was held. * Placed back on Trulicity on discharge. #Paroxysmal A-fib: On Cardizem and Eliquis #Benign essential hypertension: On lisinopril and clonidine. #Debility and weakness * Awaiting placement. PT OT on board. Fall precautions. #DVT prophylaxis: On Eliquis already Charges/Coding Visit Charges Inpatient E&M: 98957 Subs Hosp L2
[2024-08-30 18:05] LABS: Bedside Glucose 140 mg/dL (74-106)
[2024-08-30] MEDS: cloNIDine HCl 0.2 MG Tablet PO (22:16)
[2024-08-30] MEDS: DULoxetine Hcl 30 MG Capsule PO (22:16)
[2024-08-30] MEDS: traZODone 50 MG Tablet PO (22:16)
[2024-08-30] MEDS: Atorvastatin Calcium 40 MG Tablet PO (22:17)
[2024-08-30] MEDS: Acetaminophen 325 MG Tablet 650 MG PO (22:17)
[2024-08-30] MEDS: Magnesium Chloride 64 MG Delay Rel.Tablet PO (22:17)
[2024-08-30 22:51] LABS: Bedside Glucose 270 mg/dL (74-106)
[2024-08-31] VITALS (13 sets, daily range): BP systolic 118–151; BP diastolic 51–80; PULSE 87–122; RESP 16–20; TEMP 36.7–37.1; O2SAT 94–100; BMI 24.6
[2024-08-31] MEDS: Ipratropium Bromide 0.06% NASAL SPRAY 2 SPRAY NASAL ×3 (05:23→21:17)
[2024-08-31] MEDS: 0.9% Saline Lock 10 ML Syringe IV (05:24)
[2024-08-31 06:48] LABS: Hematocrit 22.9 % (37-47); Mean Corp Hgb Conc 30.6 g/dL (32-36); Mean Corpuscular Hgb 27.8 pg (27.0-32.0); Mean Corpuscular Volume 90.9 fL (81-99); Mean Platelet Vol. 8.9 fl (6.2-12.0); POSITIVE COUNT YES; POSITIVE MORPHOLOGY YES; Platelet Count 717 K/mm3 (150-450); RBC Distribution Width CV 16.6 % (11.6-14.6); RBC Distribution Width SD 54.9 fl (35.1-43.9); Red Blood Count 2.52 M/mm3 (4.2-5.4); White Blood Count 24.3 K/mm3 (4.4-11.0)
[2024-08-31 07:00] LABS: Differential Indicated MANUAL DIFF
[2024-08-31 07:25] LABS: Anion Gap 7 (5-15); BUN 61 mg/dL (7-18); Calcium,Total 9.9 mg/dL (8.5-10.1); Chloride 106 mmol/L (98-107); Creatinine, Serum 1.13 mg/dL (0.55-1.02); EST Glomerular Filtration Rate 49 mL/min (>60); Est Glom Filt Rate - Afr Amer 59 mL/min (>60); Estimated Creatinine Clearance 30.88 ml/min; Glucose 64 mg/dL (74-106); Potassium 5.2 mmol/L (3.5-5.1); Sodium Level 139 mmol/L (136-145)
[2024-08-31] MEDS: Ipratropium/Albuterol Sulfate 3 ML AMPUL.NEB INHALATION ×5 (07:49→20:04)
[2024-08-31 07:51] LABS: Eosinophil 1 % (0-5); Lymphocyte 4 % (19-41); Metamyelocyte 6 % (0-1); Monocyte 3 % (0-10); Myelocyte 2 % (0-0); Neutrophil-Band 2 % (0-5); Neutrophil-Segmented 82 % (47-70); Nucleated Red Bld Cells,Manual 1 % (0-5); Total Cells Counted 100 (MANUAL DIFF)
[2024-08-31 07:52] LABS: Absolute Lymphocyte Count 0.97 X10^3/uL (0.83-4.51); Absolute Neutrophil Count 20.4 X10^3/uL (2.0-7.7)
[2024-08-31 07:53] LABS: Acanthocytes RARE; Anisocytosis 1+; Ovalocyte 1+; Platelet Estimate MKD INC (ADEQ); Polychromasia 1+
[2024-08-31 07:54] LABS: Hypochromasia 2+; Microcytosis 1+; Schistocytes 1+; Target Cells RARE; Tear Drop Cell RARE
[2024-08-31] MEDS: Sodium Polystyrene Sulfonate 15 GM/60 ML UDC 30 GM PO (09:03)
[2024-08-31] MEDS: Pantoprazole Sodium 40 MG in 0.9% Normal Saline (100mL MB+) 100 ML 330 MG IV ×2 (11:02→21:13)
--- NOTE | 2024-08-31 11:04 | CASEMGMT ---
Addendum entered by Veronique Aguirre 08/31/24 14:12: Pt and dtrs selected: LAILA Sharp, [facility] at [facility]. [facility] to follow for referrals. ODALYS Villalobos Original Note: Social Work- SW met with pt who reports that daughters will be in around noon and they will discuss and provide SW with selections for [facility]. SW will follow up at that time. ODALYS Villalobos
--- NOTE | 2024-08-31 11:58 | CASEMGMT ---
Spoke with Maame at [facility] and made aware that pt plan is SNF upon dc at this time.
--- NOTE | 2024-08-31 12:11 | PN_ITS ---
Subjective Subjective Patient seen and examined. She had no active complaints. Her hemoglobin has dropped to 7 today. She admits to dark stools but states she is on iron. She denies any abdominal pain or any hematochezia or coffee-ground emesis. On further inquiry she tells me that she has a history of bleeding peptic ulcer. Eliquis held today and gastroenterology consulted. Patient has been started on IV pantoprazole. Objective Data Objective Data Vital Signs: Vital Signs Temp Pulse Resp BP Pulse Ox O2 Del Method O2 Flow Rate 98.4 F 100 18 134/51 H 94 Room Air 2 08/31/24 09:00 08/31/24 09:00 08/31/24 09:00 08/31/24 09:00 08/31/24 09:00 08/31/24 09:00 08/31/24 07:49 Oxygen Flow Rate (L/min) 2 Oxygen Delivery Method Room Air Weight: 125 lb 10.616 oz Body Mass Index (BMI) 24.6 Intake & Output: Intake and Output for Last 24 Hours 08/29/24 08/30/24 08/31/24 23:59 23:59 23:59 Intake Total 1000 / 1550 3350 / 3350 150 / 150 Balance 1000 / 1550 3350 / 3350 150 / 150 Lab / Micro Data 08/31/24 06:29 08/31/24 06:29 Labs: Laboratory Results - last 24 hr 08/30/24 11:42: POC Glucose 253 H 08/30/24 16:43: POC Glucose 140 H 08/30/24 22:15: POC Glucose 270 H 08/31/24 06:29: WBC 24.3 H, RBC 2.52 L, Hgb 7.0 L, Hct 22.9 L, MCV 90.9, MCH 27.8, MCHC 30.6 L, RDW Std Deviation 54.9 H, RDW Coeff of Tia 16.6 H, Plt Count 717 H, MPV 8.9, Neut % (Auto) Not Reportable, Absolute Neuts (auto) 20.4 H, Absolute Lymphs (auto) 0.97, Total Counted 100, Neutrophils % (Manual) 82 H, Band Neutrophils % 2, Lymphocytes % (Manual) 4 L, Monocytes % (Manual) 3, Eosinophils % (Manual) 1, Metamyelocytes % 6 H, Myelocytes % 2 H, Nucleated RBCs/100 WBC 1, Diff Path Review May foll, Platelet Estimate MKD INC, Polychromasia 1+, Hypochromasia 2+, Anisocytosis 1+, Microcytosis 1+, Target Cells RARE, Tear Drop Cells RARE, Ovalocytes 1+, Acanthocytes (Spur) RARE, Schistocytes 1+, Sodium 139, Potassium 5.2 H, Chloride 106, Carbon Dioxide 25.0, Anion Gap 7, BUN 61 H, Creatinine 1.13 H, Estim Creat Clear Calc 30.88, Est GFR (MDRD) Af Amer 59 L, Est GFR (MDRD) Non-Af 49 L, BUN/Creatinine Ratio 54.0 H, G lucose 64 L, Calcium 9.9 Micro: Microbiology 08/26/24 02:49 Blood Culture (Wb) - Anticubital Right Blood Culture - Final No growth in 5 days. 08/26/24 01:45 Blood Culture (Wb) - Anticubital Left Blood Culture - Final No growth in 5 days. 08/26/24 03:00 Urine, Clean Catch Urine Culture - Final Culture exhibits no growth. 08/26/24 22:00 Urine, Random Legionella Antigen - Final 08/26/24 22:00 Urine, Random Streptococcus pneumoniae Antigen (M - Final 08/26/24 01:45 Mucosa - Nose SARS-CoV-2, Influenza & RSV (PCR) - Final Physical Exam Const alert, oriented x3, no apparent distress, average body habitus and well nourished General Appearance: cooperative, well kempt and well developed Orientation / Consciousness: awake, oriented to person, oriented to place and oriented to time HEENT normocephalic, head/scalp atraumatic, hearing grossly normal bilaterally and moist oral mucous membranes Eyes PERRL, EOMs intact bilaterally and conjunctivae normal Neck no lymphadenopathy, supple, no JVD, thyroid normal and no carotid bruits General: trachea midline Lymph Lymphatic: no lymphadenopathy noted and no lymphedema noted Resp normal respiratory effort Resp Narrative: mildly diminished breath sounds bibasally, no wheezes or crackles. on room air Auscultation: Negative for rales, rhonchi or wheezes Cardio regular rate, regular rhythm, S1 normal heart sound, S2 normal heart sound, no murmurs, no rub and no gallops GI normal to inspection, nondistended, normoactive bowel sounds, soft to palpation, non-tender and non-distended Extremity normal to inspection, full ROM, normal capillary refill and no clubbing, cyanosis or edema General Extremity: no tenderness to palpation of joints or extremities Skin no rashes or lesions noted General Skin Exam: no breakdown and turgor normal Neuro oriented x3, CN's II-XII intact bilaterally, moves all extremities, no focal motor deficits and no sensory deficits noted Sensorium / Orientation: awake, alert, oriented to person, oriented to place and oriented to time Speech: speech normal Motor Exam: strength 5/5 throughout and general weakness Psych thought process normal, cooperative and affect normal Appearance: appropriate Assessment & Plan Assessment/Plan (1) PAF (paroxysmal atrial fibrillation): (2) Essential hypertension: (3) COPD exacerbation: PLAN: Plan #Acute exacerbation of COPD * Patient improving. on room air. * On IV Solu-Medrol. * Breathing treatments with bronchodilators. * Titrate oxygen to maintain saturation above 90%. * switch to PO prednisone * #Acute on chronic anemia * Hb is down to 7 today. Was 7.4 yesterday. Baseline hemoglobin is between 8 and 9. * Patient tells me today that she does have a history of bleeding peptic ulcer. Eliquis and aspirin held. Patient started on IV pantoprazole 40 mg twice daily. * Gastroenterology consulted. Will keep patient n.p.o. just in case gastroenterology can scope today #Hyperkalemia: K is 5.2. Will give kayexalate. Hold lisinopril #Type 2 diabetes mellitus: * On insulin sliding scale. Accu-Cheks ACHS. * On Lantus 35 units twice daily which was started as her home dose of Trulicity was held. * Place back on Trulicity on discharge. * hold lantus today as she is NPO #Leukocytosis: WBCs 24.3. This is likely due to the steroids she has been on. Will monitor. #Paroxysmal A-fib: On Cardizem and Eliquis. Eliquis held today due to anemia. #Benign essential hypertension: On lisinopril and clonidine. Lisinopril held due to hyperkalemia #Debility and weakness * Awaiting placement. PT OT on board. Fall precautions. * #CKD 3: Cr is 1.13 which is around her baseline. Will monitor. #DVT prophylaxis: SCDs. Eliquis held. Charges/Coding Visit Charges Inpatient E&M: 43888 Subs Hosp L3
[2024-08-31 12:52] LABS: Bedside Glucose 102 mg/dL (74-106)
[2024-08-31 13:53] LABS: Pathologist Review Reviewed
--- NOTE | 2024-08-31 14:18 | CASEMGMT ---
Addendum entered by Ashely Manley 08/31/24 14:41: [facility]ille Pt ([facility]) accepted and will submit for precert. [facility] asked to cancel referral. SW updated. Ashely Mnaley DC Planning Asst. Original Note: Referral sent to Guille [facility]osta and [facility]. Ashely Manley DC Planning Asst.
[2024-08-31] MEDS: Dextrose 5%/0.9% NaCl 1,000 ML 100 ML IV (14:29)
--- NOTE | 2024-08-31 16:31 | EX.PCM.CON.G ---
HPI Consult Data Date of Consult: 08/31/24 HPI Narrative Reason for Consultation: GI bleed HPI Narrative: ANSON CAPPS, is a 83 F who presented to the ED several days ago with worsening fatigue, weakness and shortness of breath. She was diagnosed with HCAP and was treated with medical therapy. During her stay she has had a decreased hemoglobin along with elevated BUN/creatinine ratio and persistent thrombocytosis. She has a Hx GI bleed, PAD status post peripheral angioplasty, Diabetes mellitus type II w/ chronic neuropathy, Former tobacco use who presents to the [facility] ED on 04/27/24 with history of onset left lower abdominal quadrant pain and lower GI bleeding. However, she notes she had diarrhea on day of presentation which was very dark and black and foul-smelling with poor oral intake with no recent fevers or chills but given this presentation prompted daughter to bring her in for evaluation. She was diagnosed with acute Diverticulitis complicated by associated acute blood loss anemia possibly secondary to ischemic colitis. She had a significant drop in her hemoglobin down to 6.5. It was suspected that she had upper GI bleed with rapid transit. She underwent an upper endoscopy and was discovered to have bleeding duodenal ulcer. Later she underwent a colonoscopy and was discovered to have multiple angiodysplastic lesions. I was reconsulted due to decreasing hemoglobin and suspected upper GI bleed in the setting of anticoagulation and antiplatelet therapy. [facility] Medical History PAF (paroxysmal atrial fibrillation) Essential hypertension Type 2 diabetes mellitus with hyperglycemia Respiratory insufficiency Pneumonia Chronic kidney disease (CKD) Anemia Smoking greater than 30 pack years Bronchiectasis Alcohol abuse Kidney disease Atrial fibrillation Hypertension TIA (transient ischemic attack) Primary osteoarthritis, right shoulder Right shoulder pain Wears glasses Wears dentures Alcohol use Diabetes Ambulates with cane Arthritis Restless legs Vaso vagal episode Dietary restriction COPD (chronic obstructive pulmonary disease) Former smoker Leg cramps PVD (peripheral vascular disease) History of edema History of stress test Cardiology follow-up encounter Neuropathy Iron deficiency History of TIA (transient ischemic attack) GERD (gastroesophageal reflux disease) GI bleed Depression Anxiety CKD (chronic kidney disease) Diabetes mellitus type II, controlled Hyperlipidemia Stage 3 severe COPD by GOLD classification Essential (primary) hypertension PAD (peripheral artery disease) Preoperative cardiovascular examination Nicotine dependence Abnormal electrocardiogram Bilateral carotid bruits Long-term use of high-risk medication COPD (chronic obstructive pulmonary disease) COPD with acute exacerbation Dyspnea Home Medications ?Medication ?Instructions ?Recorded ?Last Taken ?Type ascorbic acid (vitamin C) 500 mg 500 mg PO DAILY 11/28/22 08/03/24 History capsule clopidogrel 75 mg tablet 75 mg PO DAILY 04/30/23 08/03/24 History glipizide 2.5 mg tablet, extended 2.5 mg PO DAILY 09/19/23 08/03/24 History release 24 hr pantoprazole 40 mg tablet,delayed 40 mg PO DAILY 09/19/23 08/03/24 History release apixaban 2.5 mg tablet (Eliquis) 2.5 mg PO Q12H 03/18/24 07/30/24 History clonidine HCl 0.2 mg tablet 0.2 mg PO QHS 03/18/24 08/03/24 History diltiazem HCl 120 mg 240 mg PO DAILY 03/18/24 08/03/24 History capsule,extended release 24 hr dulaglutide 1.5 mg/0.5 mL 1.5 mg subcut QWEEK 03/18/24 08/01/24 History subcutaneous pen injector (Trulicity) duloxetine 30 mg capsule,delayed 30 mg PO QHS 03/18/24 08/03/24 History release albuterol sulfate 90 mcg/actuation 2 inh inhalation Q4H PRN COPD #18 07/06/24 Unknown Rx aerosol inhaler grams lisinopril 5 mg tablet 5 mg PO DAILY 07/14/24 08/03/24 History albuterol sulfate 2.5 mg/3 mL 2.5 mg (3 mL) inhalation Q4H PRN 07/30/24 Unknown Rx (0.083 %) solution for nebulization PRN COPD #90 mL spacer #1 ea 08/03/24 Unknown Rx inhalational spacing device #1 ea 08/13/24 Unknown History (Aerochamber Plus Flow-Vu) ipratropium bromide 42 mcg (0.06 2 spray intranasal TID #15 mL 08/13/24 Unknown Rx %) nasal spray ipratropium 0.5 mg-albuterol 3 mg 3 ml inhalation Q4H PRN shortness 08/23/24 Unknown Rx (2.5 mg base)/3 mL nebulization of breath or wheezing #180 mL soln atorvastatin 40 mg tablet 40 mg PO QHS 08/26/24 Unknown History budesonide 0.5 mg/2 mL suspension 0.5 mg inhalation Q12H 08/26/24 Unknown History for nebulization calcium 500 mg tablet 1,000 mg PO DAILY 08/26/24 Unknown History cholecalciferol (vitamin D3) 125 125 mcg PO DAILY 08/26/24 Unknown History mcg (5,000 unit) tablet (Vitamin D3) coQ10 (ubiquinol) 100 mg capsule 100 mg PO DAILY 08/26/24 Unknown History (CoQmax Ubiquinol) magnesium 250 mg tablet 250 mg PO QHS 08/26/24 Unknown History trazodone 50 mg tablet 50 mg PO DAILY 08/26/24 Unknown History vitamin B12 0.5 mg-folic acid 1 mg 1 tab PO DAILY 08/26/24 Unknown History tablet (Foltrate) ferrous gluconate 324 mg (38 mg 324 mg PO BID #60 tabs 08/30/24 08/03/24 Rx iron) tablet prednisone 20 mg tablet 40 mg (2 x 20 mg) PO DAILY #10 tabs 08/30/24 Unknown Rx Allergy/AdvReac Type Severity Reaction Status Date / Time ferrous sulfate Allergy Intermediate Other Verified 08/26/24 01:09 iron AdvReac Severe Low blood Verified 08/26/24 01:09 pressure gabapentin AdvReac Intermediate Pedal edema Verified 08/26/24 01:09 pregabalin (From Lyrica) AdvReac Intermediate Pedal edema Verified 08/26/24 01:09 codeine AdvReac Nausea Verified 08/26/24 01:09 Tetracyclines AdvReac Nausea Verified 08/26/24 01:09 Family History Sister CAD (coronary artery disease) Brother CAD (coronary artery disease) Mother Cancer Father , at age 70 secondary to GSW while hunting. No problems noted. Surgical History H/O shoulder surgery Hx of tubal ligation Hx of colonoscopy History of esophagogastroduodenoscopy (EGD) Right lower extremity angioplasty H/O foot surgery History of appendectomy History of total abdominal hysterectomy H/O tubal ligation H/O: hysterectomy H/O foot surgery History of appendectomy Social History household members: none Smoking Status: Former smoker quit date: 07/28/15 second hand exposure: Yes alcohol intake: never substance use type: does not use ROS Constitutional Constitutional: Denies fatigue, fever(s), poor appetite, weight gain or weight loss Gastrointestinal Gastrointestinal: Denies belching, bloating, change in bowel habits, change in stool character, chewing difficulty, coffee ground emesis, constipation, cramping, diarrhea, dyspepsia, dysphagia, early satiety, excessive flatus, fecal incontinence, heartburn, hematemesis, hematochezia, hemorrhoids, loose stools, melena, nausea, odynophagia, rectal bleeding, tenesmus, vomiting or weight changes Physical Exam Const alert, oriented x3, no apparent distress and healthy appearing General Appearance: cooperative GI normal to inspection, nondistended, normoactive bowel sounds, soft to palpation, non-tender and non-distended Percussion: normal to percussion Rectal Exam: deferred Lab / Micro Data 08/31/24 06:29 08/31/24 06:29 Labs: Laboratory Results - last 24 hr 08/29/24 09:10: Diff Path Review Reviewed 08/30/24 16:43: POC Glucose 140 H 08/30/24 22:15: POC Glucose 270 H 08/31/24 06:29: WBC 24.3 H, RBC 2.52 L, Hgb 7.0 L, Hct 22.9 L, MCV 90.9, MCH 27.8, MCHC 30.6 L, RDW Std Deviation 54.9 H, RDW Coeff of Tia 16.6 H, Plt Count 717 H, MPV 8.9, Neut % (Auto) Not Reportable, Absolute Neuts (auto) 20.4 H, Absolute Lymphs (auto) 0.97, Total Counted 100, Neutrophils % (Manual) 82 H, Band Neutrophils % 2, Lymphocytes % (Manual) 4 L, Monocytes % (Manual) 3, Eosinophils % (Manual) 1, Metamyelocytes % 6 H, Myelocytes % 2 H, Nucleated RBCs/100 WBC 1, Diff Path Review May , Platelet Estimate MKD INC, Polychromasia 1+, Hypochromasia 2+, Anisocytosis 1+, Microcytosis 1+, Target Cells RARE, Tear Drop Cells RARE, Ovalocytes 1+, Acanthocytes (Spur) RARE, Schistocytes 1+, Sodium 139, Potassium 5.2 H, Chloride 106, Carbon Dioxide 25.0, Anion Gap 7, BUN 61 H, Creatinine 1.13 H, Estim Creat Clear Calc 30.88, Est GFR (MDRD) Af Amer 59 L, Est GFR (MDRD) Non-Af 49 L, BUN/Creatinine Ratio 54.0 H, Glucose 64 L, Calcium 9.9 08/31/24 12:27: POC Glucose 102 Micro: Microbiology 08/26/24 02:49 Blood Culture (Wb) - Anticubital Right Blood Culture - Final No growth in 5 days. 08/26/24 01:45 Blood Culture (Wb) - Anticubital Left Blood Culture - Final No growth in 5 days. Assessment & Plan Assessment/Plan (1) Diverticulitis: PLAN: Plan 83 y/o F w/ Hx GI bleed, PAD status post peripheral angioplasty, Diabetes mellitus type II w/ chronic neuropathy, Former tobacco use who presents to the [facility] ED with worsening shortness of breath and discovered to have HCAP. She also had COPD exacerbation was started on steroid therapy. She is on Eliquis and Plavix at baseline. She has biochemical findings including decreased hemoglobin increased BUN to creatinine ratio and thrombocytosis suspicious for upper GI bleed. She should undergo an upper endoscopy to evaluate upper GI tract. She was explained alternatives, risk and benefits include not withstanding bleeding, infection, sepsis, perforation, need for urgent . She will have an ASA of 3. Charges/Coding Visit Charges Inpatient E&M: 35171 Init Hosp L3
[2024-08-31] MEDS: Insulin Lispro 100 UNIT/ML INSULN.PEN SC (16:47)
[2024-08-31] MEDS: Insulin Lispro 100 UNIT/ML INSULN.PEN 15 UNIT SC (16:47)
[2024-08-31] MEDS: Lactobacillis Acidophilus 1 CAP PO ×2 (16:48→21:15)
[2024-08-31 17:07] LABS: Bedside Glucose 298 mg/dL (74-106)
[2024-08-31] MEDS: Atorvastatin Calcium 40 MG Tablet PO (21:15)
[2024-08-31] MEDS: guaiFENesin 1,200 MG Tablet 1200 MG PO (21:15)
[2024-08-31] MEDS: Magnesium Chloride 64 MG Delay Rel.Tablet PO (21:16)
[2024-08-31] MEDS: traZODone 50 MG Tablet PO (21:17)
[2024-08-31] MEDS: cloNIDine HCl 0.2 MG Tablet PO (21:17)
[2024-08-31] MEDS: DULoxetine Hcl 30 MG Capsule PO (21:17)
[2024-08-31 21:38] LABS: Bedside Glucose 125 mg/dL (74-106)
[2024-09-01] VITALS (18 sets, daily range): BP systolic 95–139; BP diastolic 42–69; PULSE 57–126; RESP 14–22; TEMP 36.1–36.8; O2SAT 95–100; BMI 25.2
[2024-09-01 05:40] LABS: Hematocrit 25.2 % (37-47); Hemoglobin 7.7 g/dL (12.0-15.0); Mean Corp Hgb Conc 30.6 g/dL (32-36); Mean Corpuscular Hgb 27.9 pg (27.0-32.0); Mean Corpuscular Volume 91.3 fL (81-99); Mean Platelet Vol. 9.2 fl (6.2-12.0); POSITIVE COUNT YES; POSITIVE DIFFERENTIAL YES; POSITIVE MORPHOLOGY YES; RBC Distribution Width SD 56.1 fl (35.1-43.9); Red Blood Count 2.76 M/mm3 (4.2-5.4); White Blood Count 28.1 K/mm3 (4.4-11.0)
[2024-09-01 05:49] LABS: Platelet Count 842 K/mm3 (150-450)
[2024-09-01 05:50] LABS: Differential Indicated MANUAL DIFF
[2024-09-01 05:56] LABS: Anion Gap 8 (5-15); BUN 49 mg/dL (7-18); Calcium,Total 8.4 mg/dL (8.5-10.1); Chloride 105 mmol/L (98-107); Creatinine, Serum 1.09 mg/dL (0.55-1.02); EST Glomerular Filtration Rate 51 mL/min (>60); Est Glom Filt Rate - Afr Amer 62 mL/min (>60); Estimated Creatinine Clearance 32.35 ml/min; Glucose 59 mg/dL (74-106); Potassium 3.9 mmol/L (3.5-5.1); Sodium Level 139 mmol/L (136-145)
[2024-09-01] MEDS: 0.9% Saline Lock 10 ML Syringe IV ×3 (06:22→21:13)
[2024-09-01] MEDS: Dextrose 10%-Water 250 ML 999 ML IV (06:29)
[2024-09-01 06:41] LABS: Bedside Glucose 47 mg/dL (74-106)
[2024-09-01 07:10] LABS: Bedside Glucose 245 mg/dL (74-106)
[2024-09-01 07:11] LABS: Neutrophil-Band 1 % (0-5)
[2024-09-01 07:12] LABS: Nucleated Red Bld Cells,Manual 2 % (0-5)
[2024-09-01 07:13] LABS: Anisocytosis 1+; Lymphocyte 15 % (19-41); Metamyelocyte 9 % (0-1); Monocyte 1 % (0-10); Myelocyte 6 % (0-0); Neutrophil-Segmented 68 % (47-70); Polychromasia 1+; Total Cells Counted 100 (MANUAL DIFF)
[2024-09-01 07:14] LABS: Platelet Estimate MKD INC (ADEQ)
[2024-09-01 07:15] LABS: Absolute Lymphocyte Count 4.21 X10^3/uL (0.83-4.51); Absolute Neutrophil Count 19.4 X10^3/uL (2.0-7.7)
[2024-09-01] MEDS: Ipratropium/Albuterol Sulfate 3 ML AMPUL.NEB INHALATION ×4 (07:40→19:52)
[2024-09-01 08:10] LABS: Bedside Glucose 121 mg/dL (74-106)
--- NOTE | 2024-09-01 08:16 | PRE.ANES_ITS ---
ASA Classification* ASA Classification ASA Classification: 3 Assessment & Plan Anesthesia* Anesthesia Assessment Anesthesia Assessment: Discussed sedation and/or anesthesia options, risks, benefits, and alternatives with patient/parents/legal guardian/POA. Questions invited. The patient/parents/legal guardian/POA seems to understand and agrees to proceed with anesthesia plan. Reviewed the physical assessment, medical history, allergy history and patient home medications list prior to surgery/procedure/anesthetic and documented any changes. Performed airway and anesthesia risk assessments. Anesthesia Type Anesthesia Type: MAC Anesthesia Focused Assessment* Temperature: 97.6 F Pulse Rate: 57 Blood Pressure: 109/50 Respiratory Rate: 20 Pulse Ox: 97 Oxygen Flow Rate (L/min): 2 Airway Assessment Mouth opens: >3 cm Mallampati Score: II Focused Labs Anesthesia Preop lab: CBC WBC 28.1 K/mm3 (4.4-11.0) H 09/01/24 04:57 5 RBC 2.76 M/mm3 (4.2-5.4) L 09/01/24 04:57 09/01/24 Hgb 7.7 g/dL (12.0-15.0) L 09/01/24 04:57 09/01/24 Hct 25.2 % (37-47) L 09/01/24 04:57 09/01/24 Plt Count 842 K/mm3 (150-450) H* 09/01/24 04:57 09/01/24 CHEMISTRY Potassium 3.9 mmol/L (3.5-5.1) 09/01/24 04:57 09/01/24 Sodium 139 mmol/L (136-145) 09/01/24 04:57 09/01/24 Magnesium 2.1 mg/dL (1.6-2.6) 08/26/24 01:45 08/26/24 Phosphorus 3.3 mg/dL (2.5-4.9) 08/26/24 01:45 08/26/24 BUN 49 mg/dL (7-18) H 09/01/24 04:57 09/01/24 Creatinine 1.09 mg/dL (0.55-1.02) H 09/01/24 04:57 Glucose 59 mg/dL (74-106) L 09/01/24 04:57 09/01/24 POC Glucose 121 mg/dL (74-106) H 09/01/24 07:53 09/01/24 TSH 0.656 uIU/mL (0.358-3.740) 08/26/24 01:45 07/30 COAG PT 18.2 SECONDS (11.7-14.9) H 08/26/24 01:45 07/30 Pre-Assessment Diagnosis/Proposed Procedure Planned Operative Procedure(s): EGD Anesthesia History Anesthesia History - process control 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 When Was Last Pacemaker Check QUESTION #4 FULL TEXT: You/Your Family Experience fever (hyperthermia) with Anesthesia Last Oral Intake Last Oral intake: Last Oral Intake NPO since Meds taken in AM with sips of water? Meds patient instructed to take am of surgery PONV PONV - process control programmer: PONV - process control programmer Female HX of Motion Sickness HX of N/V After Surgery Non-Smoker Duration of Surgery greater than 60 minutes Number of Risk Factors PONV Score Height & Weight Height & Weight: Anesthesia: Height & Weight Height 5 ft 08/31/24 14:38 Weight: 58.3 kg 09/01/24 05:45 Body Mass Index (BMI) 25.2 09/01/24 05:45 Respiratory Assessment Respiratory Assessment - process control programmer: Respiratory Tract Infection Hx - process control programmer Hx Respiratory Tract Infection No 09/01/24 02:44 STOP Sleep Apnea STOP Sleep Apnea - process control programmer: STOP Sleep Apnea - process control programmer Hx Hypertension Yes 08/26/24 17:02 Hx Sleep Apnea No 08/26/24 03:27 CPAP BIPAP Do you snore loudly (louder Yes 08/26/24 03:27 than talking or can be heard Do you often feel tired/ No 08/26/24 03:27 fatigued/ sleepy during daytime? Has anyone observed you stop No 08/26/24 03:27 breathing during sleep? STOP Results Positive 08/26/24 03:27 QUESTION #5 FULL TEXT : Do you snore loudly (louder than talking or can be heard through closed doors)? Tobacco Use History Tobacco Use History - process control programmer: Tobacco Use History - process control programmer Tobacco Use Smoking Status Former smoker 08/26/24 03:27 Hx Tobacco Use No 08/26/24 03:27 Years Smoking Packs Smoked per Day Smoking Cessation Date was Yes - quit smoking within 15 08/26/24 03:27 within the last 15 years years Hx Smoking Cessation Date 07/28/15 08/26/24 03:27 Hx Smoking Cessation No 08/26/24 03:27 Counseling Hematologic Medial History Hematologic Hx - process control programmer: Hematologic Medical Hx - black leather trimmer Hx of Blood Transfusion Yes 08/26/24 03:27 Hx of Transfusion in last 3 No 08/26/24 03:27 Months Date of Last Transfusion (if within last 3 months) Ever experience any problems No 08/26/24 03:27 with transfusion(s)? Specify any problems Hx of Preganancy in last 3 No 08/26/24 03:27 Months Nurse Filling Out Transfusion REBECCA 08/26/24 03:27 & Questions: Date: 08/26/24 08/26/24 03:27 Time: 03:36 08/26/24 03:27 Patient unable to answer at this time (ie. confused, unrespo /Reproduction History /Reproductive History - process control programmer: /Reproductive Hx- process control programmer Hx Now Gestational Age (in weeks): EDC: Hx Hx Para Hx Section SAB No 08/23/24 10:40 Active Medications Active Medications: Current Medications Generic Name Dose Route Start Last Admin Trade Name Freq PRN Reason Stop Dose Admin Acetaminophen 650 mg 08/26/24 03:27 08/30/24 22:17 Acetaminophen 325 Mg Tablet PO 650 mg Q6H PRN PRN Administration Pain 1-5/10 Or Fever>100.7 Al Hydroxide/Mg Hydroxide 30 ml 08/26/24 03:27 Mag Hydrox/Al Hydrox/Simeth 30 Ml Udc PO Q6H PRN PRN Gastric Burning Albuterol Sulfate 2.5 mg 08/26/24 03:27 08/27/24 20:46 Albuterol 2.5 Mg/3 Ml Vial.Neb. INHALATION 2.5 mg Q4H PRN PRN Administration COPD Albuterol/Ipratropium 3 ml 08/28/24 11:00 08/31/24 20:04 Ipratropium/Albuterol Sulfate 3 Ml Ampul.Neb INHALATION 3 ml Q4H.RT KHALIDA Administration Apixaban 2.5 mg 08/26/24 10:00 08/30/24 22:16 Apixaban 2.5 Mg Tablet ([facility]) PO 2.5 mg Q12 KHALIDA Administration Ascorbic Acid 500 mg 08/26/24 10:00 08/31/24 09:10 Ascorbic Acid 500 Mg Tablet PO Not Given DAILY KHALIDA Atorvastatin Calcium 40 mg 08/26/24 22:00 08/31/24 21:15 Atorvastatin Calcium 40 Mg Tablet PO 40 mg QHS KHALIDA Administration Calcium Carbonate 1,000 mg 08/26/24 08:00 08/31/24 09:09 Calcium Carbonate 500 Mg Tablet PO Not Given DAILYCM KHALIDA Cholecalciferol 125 mcg 08/26/24 10:00 08/31/24 09:10 Cholecalciferol (Vit D3) 125 Mcg Capsule (5,000 Units) PO Not Given DAILY KHALIDA Clonidine 0.2 mg 08/26/24 22:00 08/31/24 21:17 Clonidine Hcl 0.2 Mg Tablet PO 0.2 mg QHS KHALIDA Administration Protocol Clopidogrel Bisulfate 75 mg 08/26/24 10:00 08/31/24 09:10 Clopidogrel Bisulfate 75 Mg Tablet PO Not Given DAILY KHALIDA Diltiazem HCl 240 mg 08/26/24 10:00 08/31/24 09:09 Diltiazem Cd 240 Mg Capsule PO Not Given DAILY KHALIDA Protocol Duloxetine HCl 30 mg 08/26/24 22:00 08/31/24 21:17 Duloxetine Hcl 30 Mg Capsule PO 30 mg QHS KHALIDA Administration Ferrous Gluconate 324 mg 08/26/24 12:00 08/31/24 12:16 Ferrous Gluconate 324 Mg Tablet PO Not Given LUNCH KHALIDA Glucagon 1 mg 08/26/24 03:27 Glucagon 1 Mg/Ml Syringe IM X1 PRN HYPOGLYCEMIA Protocol Guaifenesin 1,200 mg 08/26/24 10:00 08/31/24 21:15 Guaifenesin 1,200 Mg Tablet PO 1,200 mg BID KHALIDA Administration Dextrose 250 mls @ 0 mls/hr 08/26/24 03:27 09/01/24 06:45 Dextrose 10%-Water IV Infused .Q0M PRN Infusion HYPOGLYCEMIA Protocol As Directed Sodium Chloride 100 mls @ 15 mls/hr 08/26/24 03:28 IV .Q6H40M PRN Saline Flush Pantoprazole Sodium 40 mg/ 110 mls @ 330 mls/hr 08/31/24 10:00 08/31/24 21:35 Sodium Chloride IV Infused Q12 KHALIDA Infusion Insulin Glargine 35 unit 08/28/24 22:00 08/31/24 09:09 Insulin Glargine-Yfgn 100 Unit/Ml Pen SC Not Given BID KHALIDA Insulin Human Lispro 0 unit 08/26/24 07:00 08/31/24 21:18 Insulin Lispro 100 Unit/Ml Insuln.Pen SC Not Given ACHS [facility] Protocol Insulin Human Lispro 15 unit 08/29/24 07:00 08/31/24 16:47 Insulin Lispro 100 Unit/Ml Insuln.Pen SC 15 u TIDAC [facility] Administration Ipratropium [place] 2 spray 08/26/24 06:00 09/01/24 05:34 Ipratropium [place] 0.06% Nasal [place] NASAL Not Given TID [facility] Lisinopril 5 mg 08/26/24 10:00 08/30/24 10:11 Lisinopril 5 Mg Tablet PO 5 mg DAILY [facility] Administration Protocol Magnesium Chloride 64 mg 08/26/24 22:00 08/31/24 21:16 Magnesium Chloride 64 Mg Delay Rel.Tablet PO 64 mg QHS KHALIDA Administration Magnesium Hydroxide 30 ml 08/26/24 03:27 Magnesium Hydroxide 30 Ml Udc PO DAILY PRN PRN Constipation Melatonin 3 mg 08/26/24 03:27 Melatonin 3 Mg Tablet PO QHS PRN PRN INSOMNIA Menthol 1 applic 08/27/24 01:02 08/29/24 22:45 Menthol 226.8 Gm Jar TOPICAL 1 applic 4X/DAY PRN PRN Administration Pain Score 1-10 Morphine Sulfate 2 mg 08/26/24 03:27 Morphine 2 Mg/Ml Syringe IV Q4H PRN PRN Pain Score 6-10 Nutritional Formula (Lactose Free) 120 ml 08/26/24 17:00 08/31/24 18:46 Glucerna Shake 120 Ml Liquid PO Not Given TIDCM KHALIDA Ondansetron HCl 4 mg 08/26/24 03:27 Ondansetron 4 Mg/2 Ml Vial IV Q8H PRN PRN NAUSEA/VOMITING Sodium Chloride 10 - 40 ml 08/26/24 03:28 09/01/24 06:50 0.9% Saline Lock 10 Ml Syringe IV 10 ml UD PRN Administration SALINE FLUSH Trazodone HCl 50 mg 08/26/24 22:00 08/31/24 21:17 Trazodone 50 Mg Tablet PO 50 mg 2200 KHALIDA Administration Zinc Sulfate 50 mg 08/26/24 10:00 08/31/24 09:10 Zinc Sulfate 50 Mg Zinc (220 Mg) Oral Capsule PO Not Given DAILY KHALIDA PFSH Medical History PAF (paroxysmal atrial fibrillation) Essential hypertension Type 2 diabetes mellitus with hyperglycemia Respiratory insufficiency Pneumonia Chronic kidney disease (CKD) Anemia Smoking greater than 30 pack years Bronchiectasis Alcohol abuse Kidney disease Atrial fibrillation Hypertension TIA (transient ischemic attack) Primary osteoarthritis, right shoulder Right shoulder pain Wears glasses Wears dentures Alcohol use Diabetes Ambulates with cane Arthritis Restless legs Vaso vagal episode Dietary restriction COPD (chronic obstructive pulmonary disease) Former smoker Leg cramps PVD (peripheral vascular disease) History of edema History of stress test Cardiology follow-up encounter Neuropathy Iron deficiency History of TIA (transient ischemic attack) GERD (gastroesophageal reflux disease) GI bleed Depression Anxiety CKD (chronic kidney disease) Diabetes mellitus type II, controlled Hyperlipidemia Stage 3 severe COPD by GOLD classification Essential (primary) hypertension PAD (peripheral artery disease) Preoperative cardiovascular examination Nicotine dependence Abnormal electrocardiogram Bilateral carotid bruits Long-term use of high-risk medication COPD (chronic obstructive pulmonary disease) COPD with acute exacerbation Dyspnea Home Medications ?Medication ?Instructions ?Recorded ?Last Taken ?Type ascorbic acid (vitamin C) 500 mg 500 mg PO DAILY 11/2808/03/24 History capsule clopidogrel 75 mg tablet 75 mg PO DAILY 04/30/2302/18 History glipizide 2.5 mg tablet, extended 2.5 mg PO DAILY 08/2908/03/24 History release 24 hr pantoprazole 40 mg tablet,delayed 40 mg PO DAILY 09/1908/03/24 History release apixaban 2.5 mg tablet (Eliquis) 2.5 mg PO Q12H 07/30/24 History clonidine HCl 0.2 mg tablet 0.2 mg PO QHS 03/18/2402/18 History diltiazem HCl 120 mg 240 mg PO DAILY 03/18/2402/18 History capsule,extended release 24 hr dulaglutide 1.5 mg/0.5 mL 1.5 mg subcut QWEEK 03/18/24 08/01/24 History subcutaneous pen injector (Trulicity) duloxetine 30 mg capsule,delayed 30 mg PO QHS 03/18/24 08/03/24 History release albuterol sulfate 90 mcg/actuation 2 inh inhalation Q4 H PRN COPD #18 07/06/24 Unknown Rx aerosol inhaler grams lisinopril 5 mg tablet 5 mg PO DAILY 07/14/2408/03 History albuterol sulfate 2.5 mg/3 mL 2.5 mg (3 mL) inhalation Q4H PRN 07/30/24 Unknown Rx (0.083 %) solution for nebulization PRN COPD #90 mL spacer #1 ea 08/03/24 Unknown Rx inhalational spacing device #1 ea 08/13/24 Unknown His tory (Aerochamber Plus Flow-Vu) ipratropium bromide 42 mcg (0.06 2 spray intranasal TI D #15 mL 08/13/24 Unknown Rx %) nasal spray ipratropium 0.5 mg-albuterol 3 mg 3 ml inhalation Q4H PRN shortness 08/23/24 U nknown Rx (2.5 mg base)/3 mL nebulization of breath or wheezing #180 mL soln atorvastatin 40 mg tablet 40 mg PO QHS 08/26/24 Unknow n History budesonide 0.5 mg/2 mL suspension 0.5 mg inhalation Q1 2H 08/26/24 Unknown History for nebulization calcium 500 mg tablet 1,000 mg PO DAILY 08/26/24 U nknown History cholecalciferol (vitamin D3) 125 125 mcg PO DAILY 07/30 Unknown History mcg (5,000 unit) tablet (Vitamin D3) coQ10 (ubiquinol) 100 mg capsule 100 mg PO DAILY 08/26 Unknown History (CoQmax Ubiquinol) magnesium 250 mg tablet 250 mg PO QHS 08/26/24 Unkno wn History trazodone 50 mg tablet 50 mg PO DAILY 08/26/24 Unkn own History vitamin B12 0.5 mg-folic acid 1 mg 1 tab PO DAILY 07/30 Unknown History tablet (Foltrate) ferrous gluconate 324 mg (38 mg 324 mg PO BID #60 tabs 08/30/24 08/03/24 Rx iron) tablet prednisone 20 mg tablet 40 mg (2 x 20 mg) PO DAILY # 10 tabs 08/30/24 Unknown Rx Allergy/AdvReac Type Severity Reaction Status Date / Time ferrous sulfate Allergy Intermediate Other Verified 08/26/24 01:09 iron AdvReac Severe Low blood Verified 08/26/24 01:09 pressure gabapentin AdvReac Intermediate Pedal edema Verified 08/26/24 01:09 pregabalin (From Lyrica) AdvReac Intermediate Pedal edema Verified 08/26/24 01:09 codeine AdvReac Nausea Verified 08/26/24 01:09 Tetracyclines AdvReac Nausea Verified 08/26/24 01:09 Family History Sister CAD (coronary artery disease) Brother CAD (coronary artery disease) Mother Cancer Father , at age 70 secondary to GSW while hunting. No problems noted. Surgical History H/O shoulder surgery Hx of tubal ligation Hx of colonoscopy History of esophagogastroduodenoscopy (EGD) Right lower extremity angioplasty H/O foot surgery History of appendectomy History of total abdominal hysterectomy H/O tubal ligation H/O: hysterectomy H/O foot surgery History of appendectomy Social History household members: none Smoking Status: Former smoker quit date: 07/28/15 second hand exposure: Yes alcohol intake: never substance use type: does not use Review of Systems (Anesthesia) ROS Narrative System reviewed and no additional complaints, except as documented.
--- NOTE | 2024-09-01 08:16 | PCM.PN.BLA ---
Progress Note Patient has been n.p.o. after midnight. All questions were answered prior to her undergoing endoscopy today. Physical Exam Const alert, oriented x3, no apparent distress and healthy appearing General Appearance: cooperative GI normal to inspection, nondistended, normoactive bowel sounds, soft to palpation, non-tender and non-distended Percussion: normal to percussion Rectal Exam: deferred Assessment & Plan Assessment/Plan (1) Diverticulitis: PLAN: Plan 83 y/o F w/ Hx GI bleed, PAD status post peripheral angioplasty, Diabetes mellitus type II w/ chronic neuropathy, Former tobacco use who presents to the [facility] ED with worsening shortness of breath and discovered to have HCAP. She also had COPD exacerbation was started on steroid therapy. She is on Eliquis and Plavix at baseline. She has biochemical findings including decreased hemoglobin increased BUN to creatinine ratio and thrombocytosis suspicious for upper GI bleed. She should undergo an upper endoscopy to evaluate upper GI tract. She was explained alternatives, risk and benefits include not withstanding bleeding, infection, sepsis, perforation, need for urgent . She will have an ASA of 3. Visit Charges Inpatient E&M: 27174 Subs Hosp L2
--- NOTE | 2024-09-01 08:38 | OP.CCLET_ITS ---
09/01/2024 Ru Obrien Re : Upper GI endoscopy procedure for Manda Connolly Dear Kerwin This procedure was performed on Sunday, September 01, 2024. My impressions and recommendations are as follows: Impressions : - Normal esophagus. - Small hiatal hernia. - Chronic gastritis. 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 Treated with a heater probe. - No specimens collected. Recommendations : - Return patient to [facility] for [facility] care. - Resume previous diet. - Continue present medications. My findings are described in the full procedure note, which is enclosed. If I can be of further assistance, please feel free to contact me at . Sincerely, Ryan Hou, 09/01/2024 8:37:42 AM This report has been signed electronically.
--- NOTE | 2024-09-01 08:38 | OP.EGD_ITS ---
Patient Name: Manda Connolly Procedure Date: 09/01/2024 8:14 AM Date of : 1940 Age: 83 Procedure: Upper GI endoscopy Indications: Iron deficiency anemia, Melena Providers: Ryan Hou DO Medicines: Monitored Anesthesia Care Patient Profile: This is an 83 year old female. Refer to note in patient chart for documentation of history and physical. Patient has symptoms. Complications: No immediate complications. Procedure: Pre-Anesthesia Assessment: - Prior to the procedure, a History and Physical was performed, and patient medications and allergies were reviewed. The patient is competent. The risks and benefits of the procedure and the sedation options and risks were discussed with the patient. All questions were answered and informed consent was obtained. Patient identification and proposed procedure were verified by the physician in the pre-procedure area. Mental Status Examination: alert and oriented. Airway Examination: normal oropharyngeal airway and neck mobility. Respiratory Examination: clear to auscultation. CV Examination: normal. Prophylactic Antibiotics: The patient does not require prophylactic antibiotics. Prior Anticoagulants: The patient has taken no anticoagulant or antiplatelet agents except for NSAID medication. ASA Grade Assessment: III - A patient with severe systemic disease. After reviewing the risks and benefits, the patient was deemed in satisfactory condition to undergo the procedure. The anesthesia plan was to use monitored anesthesia care (MAC). Immediately prior to administration of medications, the patient was re-assessed for adequacy to receive sedatives. The heart rate, respiratory rate, oxygen saturations, blood pressure, adequacy of pulmonary ventilation, and response to care were monitored throughout the procedure. The physical status of the patient was re-assessed after the procedure. After obtaining informed consent, the endoscope was passed under direct vision. Throughout the procedure, the patient's blood pressure, pulse, and oxygen saturations were monitored continuously. The Colonoscope was introduced through the mouth, and advanced to the jejunum. Small bowel enteroscopy was deemed necessary. The upper GI endoscopy was accomplished without difficulty. The patient tolerated the procedure well. Scope In: 8:22:11 AM Scope Out: 8:32:54 AM Total Procedure Duration Time 0 hours 10 minutes 43 seconds Findings: The examined esophagus was normal. A small hiatal hernia was present. Diffuse severe inflammation characterized by erosions, erythema and granularity was found in the gastric body. Multiple 6 mm angiodysplastic lesions with bleeding were found in the first portion of the duodenum, in the second portion of the duodenum, in the third portion of the duodenum and in the fourth portion of the duodenum. Coagulation for hemostasis using heater probe was successful. Estimated blood loss was minimal. A low-grade of narrowing Schatzki ring was found at the gastroesophageal junction. Impression: - Normal esophagus. - Small hiatal hernia. - Chronic gastritis. 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 Treated with a heater probe. - No specimens collected. Recommendation: - Return patient to [facility] for ongoing care. - Resume previous diet. - Continue present medications. Procedure Code(s): --- Professional --- 44518, Small intestinal endoscopy, enteroscopy beyond second portion of duodenum, not including ileum; with control of bleeding (eg, injection, bipolar cautery, unipolar cautery, laser, heater probe, stapler, plasma human resources administrator) CPT copyright 2021 [employer]. All rights reserved. The codes documented in this report are preliminary and upon airplane dispatcher review may be revised to meet current compliance requirements. Ryan Hou DO 09/01/2024 8:37:42 AM This report has been signed electronically. Number of Addenda: 0 Note Initiated On: 09/01/2024 8:14 AM
--- NOTE | 2024-09-01 08:38 | PCM.POST.ANE ---
Anesthesia: Postop Eval I Current Vital Signs Temperature: 97.1 F Pulse Rate: 111 Blood Pressure: 123/52 Respiratory Rate: 18 Pulse Ox: 95 Oxygen Delivery Method: Room Air Assessment Airway patent: Yes Spontaneous unlabored respirations: Yes Mental status: Awake and Calm nausea: No Vomiting: No Anesthesia Complication: No Fluid Hydration Crystalloid volume administer (ml): 10 Total IV fluid infused: 10 Progress Note Anesthesia document: Postop Eval 1 completed: Yes
--- NOTE | 2024-09-01 08:52 | POSTOPAN2_ITS ---
Anesthesia Postop Eval I Sum Postop Eval Completion status Anesthesia document: Postop Eval 1 completed: Yes Anesthesia Postop Eval I Summary Anesthesia Postop Eval I Summary: Anesthesia Postop Eval I: Assessment Summary Airway patent Yes 09/01/24 08:46 GALVANIZING POT RUNNER.[email or web address] Spontaneous unlabored Yes 09/01/24 08:46 GALVANIZING POT RUNNER.[email or web address] respirations Mental status Awake,Calm 09/01/24 08:46 GALVANIZING POT RUNNER.[email or web address] nausea No 09/01/24 08:46 GALVANIZING POT RUNNER.GDOTT Vomiting No 09/01/24 08:46 GALVANIZING POT RUNNER.[email or web address] Anesthesia Postop Eval I: Fluid Summary Crystalloid volume administer 10 09/01/24 08:46 GALVANIZING POT RUNNER.GDOTT (ml) Colloids volume administered ( ml) Blood Product volume administered (ml) Total IV fluid infused 10 09/01/24 08:46 GALVANIZING POT RUNNER.GDOTT Anesthesia Postop Eval I: Summary Notes Anesthesia Complication No 09/01/24 08:46 GALVANIZING POT RUNNER.GDOTT Anesthesia Complication Comment: Post-operative progress note Anesthesia: Postop Eval II Evaluation Mental status: Awake Pain Level: 0 nausea: No Vomiting: No
--- NOTE | 2024-09-01 08:52 | PCM.POSTANE2 ---
Anesthesia Postop Eval I Sum Postop Eval Completion status Anesthesia document: Postop Eval 1 completed: Yes Anesthesia Postop Eval I Summary Anesthesia Postop Eval I Summary: Anesthesia Postop Eval I: Assessment Summary Airway patent Yes 09/01/24 08:46 ROLL [email or web address] Spontaneous unlabored Yes 09/01/24 08:46 ROLL PLUGGER.[email or web address] respirations Mental status Awake,Calm 09/01/24 08:46 ROLL [email or web address].GDOTT nausea No 09/01/24 08:46 ROLL PLUGGER.GDOTT Vomiting No 09/01/24 08:46 ROLL [email or web address].GDOTT Anesthesia Postop Eval I: Fluid Summary Crystalloid volume administer 10 09/01/24 08:46 ROLL [email or web address].GDOTT (ml) Colloids volume administered ( ml) Blood Product volume administered (ml) Total IV fluid infused 10 09/01/24 08:46 ROLL [email or web address].GDOTT Anesthesia Postop Eval I: Summary Notes Anesthesia Complication No 09/01/24 08:46 ROLL [email or web address].GDOTT Anesthesia Complication Comment: Post-operative progress note Anesthesia: Postop Eval II Evaluation Mental status: Awake Pain Level: 0 nausea: No Vomiting: No
[2024-09-01] MEDS: Calcium Carbonate 500 MG Tablet 1000 MG PO (10:01)
[2024-09-01] MEDS: Lactobacillis Acidophilus 1 CAP PO ×4 (10:03→21:15)
[2024-09-01] MEDS: guaiFENesin 1,200 MG Tablet 1200 MG PO ×2 (10:05→21:20)
[2024-09-01] MEDS: dilTIAZem CD 240 MG Capsule PO (10:05)
[2024-09-01] MEDS: Pantoprazole Sodium 40 MG in 0.9% Normal Saline (100mL MB+) 100 ML 330 MG IV ×2 (10:05→21:13)
[2024-09-01] MEDS: Cholecalciferol (Vit D3) 125 MCG CAPSULE (5,000 UNITS) PO (10:06)
[2024-09-01] MEDS: Ascorbic Acid 500 MG Tablet PO (10:06)
[2024-09-01] MEDS: Zinc Sulfate 50 mg zinc (220 mg) ORAL capsule PO (10:06)
--- NOTE | 2024-09-01 11:26 | CASEMGMT ---
Addendum entered by Ashely Manley 09/01/24 11:52: Auth is only good for today but Guille Acosta is using an accelerated auth process so it's likely she can obtain a new one same day should pt not discharge today. Ashely Manley DC Planning Asst. Original Note: Guillecass Acosta has obtained auth to admit. Physician and SW updated. Ashely Manley DC Planning Asst.
[2024-09-01] MEDS: Ferrous Gluconate 324 MG Tablet PO (12:02)
[2024-09-01 12:24] LABS: Bedside Glucose 57 mg/dL (74-106)
[2024-09-01 12:56] LABS: Bedside Glucose 73 mg/dL (74-106)
[2024-09-01] MEDS: Glucerna Shake 120 ML LIQUID PO (13:23)
[2024-09-01] MEDS: Ipratropium Bromide 0.06% NASAL SPRAY 2 SPRAY NASAL ×2 (14:09→21:15)
--- NOTE | 2024-09-01 14:34 | PN_ITS ---
Subjective Subjective Patient seen and examined. She said she felt well today and had no complaints. She had an uneventful night. 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 Hemoglobin today is 7.7. Objective Data Objective Data Vital Signs: Vital Signs Temp Pulse Resp BP Pulse Ox O2 Del Method O2 Flow Rate 98.2 F 66 16 122/53 H 97 Room Air 2 09/01/24 13:59 09/01/24 13:59 09/01/24 13:59 09/01/24 13:59 09/01/24 13:59 09/01/24 14:03 09/01/24 08:16 Oxygen Flow Rate (L/min) 2 Oxygen Delivery Method Room Air Weight: 128 lb 8.472 oz Body Mass Index (BMI) 25.2 Intake & Output: Intake and Output for Last 24 Hours 08/30/24 08/31/24 09/01/24 23:59 23:59 23:59 Intake Total 3350 / 3350 820 / 820 1360 / 1360 Balance 3350 / 3350 820 / 820 1360 / 1360 Lab / Micro Data 09/01/24 04:57 09/01/24 04:57 Labs: Laboratory Results - last 24 hr 08/31/24 16:43: POC Glucose 298 H 08/31/24 21:13: POC Glucose 125 H 09/01/24 04:57: WBC 28.1 H, RBC 2.76 L, Hgb 7.7 L, Hct 25.2 L, MCV 91.3, MCH 27.9, MCHC 30.6 L, RDW Std Deviation 56.1 H, RDW Coeff of Tia 17.0 H, Plt Count 842 H*, MPV 9.2, Neut % (Auto) Not Reportable, Absolute Neuts (auto) 19.4 H, Absolute Lymphs (auto) 4.21, Total Counted 100, Neutrophils % (Manual) 68, Band Neutrophils % 1, Lymphocytes % (Manual) 15 L, Monocytes % (Manual) 1, M etamyelocytes % 9 H, Myelocytes % 6 H, Nucleated RBCs/100 WBC 2, Diff Path Review November, Platelet Estimate MKD INC, Polychromasia 1+, Anisocytosis 1+, Sodium 139, Potassium 3.9, Chloride 105, Carbon Dioxide 25.0, Anion Gap 8, BUN 49 H, Creatinine 1.09 H, Estim Creat Clear Calc 32.35, Est GFR (MDRD) Af Amer 62, Est GFR (MDRD) Non-Af 51 L, BUN/Creatinine Ratio 45.0 H, Glucose 59 L, C alcium 8.4 L 09/01/24 06:23: POC Glucose 47 L 09/01/24 06:52: POC Glucose 245 H 09/01/24 07:53: POC Glucose 121 H 09/01/24 11:59: POC Glucose 57 L 09/01/24 12:34: POC Glucose 73 L Micro: Microbiology 08/26/24 02:49 Blood Culture (Wb) - Anticubital Right Blood Culture - Final No growth in 5 days. 08/26/24 01:45 Blood Culture (Wb) - Anticubital Left Blood Culture - Final No growth in 5 days. 08/26/24 03:00 Urine, Clean Catch Urine Culture - Final Culture exhibits no growth. 08/26/24 22:00 Urine, Random Legionella Antigen - Final 08/26/24 22:00 Urine, Random Streptococcus pneumoniae Antigen (M - Final 08/26/24 01:45 Mucosa - Nose SARS-CoV-2, Influenza & RSV (PCR) - Final Physical Exam Const alert, oriented x3, no apparent distress, average body habitus and well nourished General Appearance: cooperative Orientation / Consciousness: awake, oriented to person, oriented to place and oriented to time HEENT normocephalic, head/scalp atraumatic, hearing grossly normal bilaterally and moist oral mucous membranes Eyes PERRL, EOMs intact bilaterally and conjunctivae normal Neck no lymphadenopathy, supple, no JVD, thyroid normal and no carotid bruits General: trachea midline Lymph Lymphatic: no lymphadenopathy noted and no lymphedema noted Resp normal respiratory effort Cardio regular rate, regular rhythm, S1 normal heart sound, S2 normal heart sound and no murmurs GI normal to inspection, nondistended, normoactive bowel sounds, soft to palpation, non-tender and non-distended Extremity normal to inspection, full ROM, normal capillary refill and no clubbing, cyanosis or edema General Extremity: no tenderness to palpation of joints or extremities Skin no rashes or lesions noted General Skin Exam: no breakdown and turgor normal Neuro oriented x3, CN's II-XII intact bilaterally, moves all extremities, no focal motor deficits and no sensory deficits noted Sensorium / Orientation: awake, alert, oriented to person, oriented to place and oriented to time Speech: speech normal Motor Exam: strength 5/5 throughout and general weakness Psych thought process normal, cooperative and affect normal Appearance: appropriate Assessment & Plan Assessment/Plan (1) PAF (paroxysmal atrial fibrillation): (2) Essential hypertension: (3) COPD exacerbation: PLAN: Plan #Acute exacerbation of COPD * Patient improving. on room air. * Breathing treatments with bronchodilators. * Titrate oxygen to maintain saturation above 90%. * on PO prednisone * #Acute on chronic anemia * Hb today is 7.7. Was 7 yesterday. 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 * On IV pantoprazole. Eliquis on hold. Will discuss with gastroenterology whether Eliquis can be resumed today. * * #Hyperkalemia: Resolved. Potassium is 3.9 today. Will discontinue lisinopril as potassium on 08/27/2024 was 5.6 also. #Type 2 diabetes mellitus: * On insulin sliding scale. Accu-Cheks ACHS. * On Lantus 35 units twice daily which was started as her home dose of Trulicity was held. * Place back on Trulicity on discharge. * lantus resumed. #Leukocytosis: Wbc further up to 29. Likely due to steroids. Will dc steroids and monitor #Thrombocytosis * this is chronic. platelets are up to 842 today. Was 552 on admission. May be related to acute illness. Will monitor closely. * To follow-up with hematology outpatient basis. * #Paroxysmal A-fib: On Cardizem and Eliquis. Eliquis held today due to anemia. #Benign essential hypertension: On lisinopril and clonidine. Lisinopril held due to hyperkalemia #Debility and weakness * Awaiting placement. PT OT on board. Fall precautions. * #CKD 3: Cr is 1.13 which is around her baseline. Will monitor. #DVT prophylaxis: SCDs. Eliquis held. Discuss with GI about resuming eliquis Disposition: Anticipate DC back to SNF for next 1 to 2 days. Charges/Coding Visit Charges Inpatient E&M: 49497 Subs Hosp L2
--- NOTE | 2024-09-01 15:08 | CASEMGMT ---
Social Work- Pt has acceptance and precert to [facility]. bedside nurse and pt updated. DCA reported updating physician. SW remains available to follow. Plan; [facility], when medically ready [facility]alob[facility]
--- NOTE | 2024-09-01 16:09 | CASEMGMT ---
Updates sent to [facility] with note that pt will likely discharge tomorrow. They will need to obtain new auth. Ashely Manley DC Planning Asst.
--- NOTE | 2024-09-01 16:20 | NURSING ---
All documentation by nursing unit clerk Richelle Bardales reviewed by assisted living nursing director Maureen BEARD, RN.
[2024-09-01] MEDS: Insulin Lispro 100 UNIT/ML INSULN.PEN SC (16:53)
[2024-09-01 17:12] LABS: Bedside Glucose 208 mg/dL (74-106)
[2024-09-01] MEDS: cloNIDine HCl 0.2 MG Tablet PO (21:16)
[2024-09-01] MEDS: traZODone 50 MG Tablet PO (21:16)
[2024-09-01] MEDS: DULoxetine Hcl 30 MG Capsule PO (21:17)
[2024-09-01] MEDS: APIXABAN 2.5 MG TABLET (WCH) PO (21:18)
[2024-09-01] MEDS: Atorvastatin Calcium 40 MG Tablet PO (21:19)
[2024-09-01] MEDS: Magnesium Chloride 64 MG Delay Rel.Tablet PO (21:20)
[2024-09-01 22:05] LABS: Bedside Glucose 170 mg/dL (74-106)
[2024-09-02] VITALS (14 sets, daily range): BP systolic 107–168; BP diastolic 30–65; PULSE 88–122; RESP 16–24; TEMP 36.2–37.2; O2SAT 93–99; BMI 26.2
[2024-09-02] MEDS: Acetaminophen 325 MG Tablet 650 MG PO ×3 (00:57→21:22)
[2024-09-02 01:17] LABS: Bedside Glucose 146 mg/dL (74-106)
[2024-09-02] MEDS: Ipratropium Bromide 0.06% NASAL SPRAY 2 SPRAY NASAL ×3 (05:47→21:10)
[2024-09-02 06:27] LABS: Bedside Glucose 135 mg/dL (74-106)
[2024-09-02 06:57] LABS: Basophil# 0.01 X10^3/uL; Basophil% 0.1 % (0-1); Eosinophil# 0.21 X10^3/uL; Eosinophils% 1.2 % (0-5); Hematocrit 23.1 % (37-47); Lymphocyte # 2.26 X10^3/ul (0.83-4.51); Lymphocyte % 13.2 % (19-41); Mean Corp Hgb Conc 30.3 g/dL (32-36); Mean Corpuscular Hgb 27.7 pg (27.0-32.0); Mean Corpuscular Volume 91.3 fL (81-99); Mean Platelet Vol. 9.1 fl (6.2-12.0); Monocyte# 1.52 X10^3/uL; Monocyte% 8.9 % (0-10); NRBC Flagged by Analyzer 1.3 % (0-5); Neutrophil % 61.9 % (47-70); POSITIVE COUNT YES; POSITIVE DIFFERENTIAL YES; POSITIVE MORPHOLOGY YES; Platelet Count 729 K/mm3 (150-450); RBC Distribution Width CV 16.8 % (11.6-14.6); RBC Distribution Width SD 57.1 fl (35.1-43.9); Red Blood Count 2.53 M/mm3 (4.2-5.4); White Blood Count 17.1 K/mm3 (4.4-11.0)
[2024-09-02 07:05] LABS: Differential Indicated MANUAL DIFF
[2024-09-02 07:36] LABS: Anion Gap 8 (5-15); BUN 51 mg/dL (7-18); BUN/Creat Ratio 38.9 RATIO (10-20); Calcium,Total 8.5 mg/dL (8.5-10.1); Chloride 105 mmol/L (98-107); Creatinine, Serum 1.31 mg/dL (0.55-1.02); EST Glomerular Filtration Rate 41 mL/min (>60); Est Glom Filt Rate - Afr Amer 50 mL/min (>60); Estimated Creatinine Clearance 27.38 ml/min; Glucose 131 mg/dL (74-106); Potassium 4.3 mmol/L (3.5-5.1); Sodium Level 138 mmol/L (136-145)
[2024-09-02 08:00] LABS: Lymphocyte 15 % (19-41); Metamyelocyte 8 % (0-1); Monocyte 7 % (0-10); Myelocyte 5 % (0-0); Neutrophil-Band 4 % (0-5); Neutrophil-Segmented 60 % (47-70); Promyelocyte 1 % (0-0); Total Cells Counted 100 (MANUAL DIFF)
[2024-09-02 08:01] LABS: Anisocytosis 1+; Hypochromasia 1+; Platelet Estimate MKD INC (ADEQ)
[2024-09-02 08:02] LABS: Absolute Lymphocyte Count 2.56 X10^3/uL (0.83-4.51); Absolute Neutrophil Count 10.9 X10^3/uL (2.0-7.7)
[2024-09-02] MEDS: dilTIAZem CD 240 MG Capsule PO (08:20)
[2024-09-02] MEDS: Lactobacillis Acidophilus 1 CAP PO ×4 (08:20→21:10)
[2024-09-02] MEDS: Ascorbic Acid 500 MG Tablet PO (08:20)
[2024-09-02] MEDS: Calcium Carbonate 500 MG Tablet 1000 MG PO (08:20)
[2024-09-02] MEDS: Cholecalciferol (Vit D3) 125 MCG CAPSULE (5,000 UNITS) PO (08:20)
[2024-09-02] MEDS: guaiFENesin 1,200 MG Tablet 1200 MG PO ×2 (08:20→21:09)
[2024-09-02] MEDS: Zinc Sulfate 50 mg zinc (220 mg) ORAL capsule PO (08:20)
[2024-09-02 09:08] LABS: Pathologist Review Reviewed
[2024-09-02 09:32] LABS: Bedside Glucose 114 mg/dL (74-106)
[2024-09-02] MEDS: Pantoprazole Sodium 40 MG in 0.9% Normal Saline (100mL MB+) 100 ML 330 MG IV ×2 (09:44→21:13)
[2024-09-02] MEDS: Ipratropium/Albuterol Sulfate 3 ML AMPUL.NEB INHALATION ×4 (10:03→23:45)
[2024-09-02 10:44] LABS: Hematocrit 24.2 % (37-47); Hemoglobin 7.3 g/dL (12.0-15.0)
[2024-09-02] MEDS: Insulin Lispro 100 UNIT/ML INSULN.PEN 15 UNIT SC (11:24)
[2024-09-02] MEDS: Insulin Lispro 100 UNIT/ML INSULN.PEN SC ×2 (11:24→21:11)
[2024-09-02 11:45] LABS: Bedside Glucose 363 mg/dL (74-106)
--- NOTE | 2024-09-02 12:26 | PCM.PROGNOTE ---
Subjective Subjective Patient seen and examined. She had no active complaints. She had an uneventful night. Hemoglobin is down to 7 this morning. She denies any melena or hematemesis. She denies any abdominal pain. Eliquis held. Review of systems otherwise negative. Objective Data Objective Data Vital Signs: Vital Signs Temp Pulse Resp BP Pulse Ox O2 Del Method O2 Flow Rate 97.9 F 122 H 24 H 168/62 H 95 Room Air 2 09/02/24 08:13 09/02/24 10:05 09/02/24 10:05 09/02/24 08:13 09/02/24 08:13 09/02/24 08:15 09/01/24 08:16 Oxygen Flow Rate (L/min) 2 Oxygen Delivery Method Room Air Weight: 133 lb 6.075 oz Body Mass Index (BMI) 26.2 Intake & Output: Intake and Output for Last 24 Hours 08/31/24 09/01/24 09/02/24 23:59 23:59 23:59 Intake Total 820 / 820 1870 / 1870 410 / 410 Balance 820 / 820 1870 / 1870 410 / 410 Lab / Micro Data 09/02/24 10:35 09/02/24 06:02 Labs: Laboratory Results - last 24 hr 08/31/24 06:29: Diff Path Review Reviewed 09/01/24 12:34: POC Glucose 73 L 09/01/24 16:45: POC Glucose 208 H 09/01/24 21:14: POC Glucose 170 H 09/02/24 00:52: POC Glucose 146 H 09/02/24 05:54: POC Glucose 135 H 09/02/24 06:02: WBC 17.1 H, RBC 2.53 L, Hgb 7.0 L, Hct 23.1 L, MCV 91.3, MCH 27.7, MCHC 30.3 L, RDW Std Deviation 57.1 H, RDW Coeff of Tia 16.8 H, Plt Count 729 H, MPV 9.1, Immature Gran % (Auto) 14.700 H, Neut % (Auto) 61.9, Lymph % (Auto) 13.2 L, [place] % (Auto) 8.9, Eos % (Auto) 1.2, Baso % (Auto) 0.1, Absolute Neuts (auto) 10.9 H, Absolute Lymphs (auto) 2.56, Total Counted 100, Neutrophils % (Manual) 60, Band Neutrophils % 4, Lymphocytes % (Manual) 15 L, Monocytes % (Manual) 7, Metamyelocytes % 8 H, Myelocytes % 5 H, Promyelocytes % 1 H, Nucleated RBC % 1.3, Diff Path Review May foll, Platelet Estimate MKD INC, Hypochromasia 1+, Anisocytosis 1+, Sodium 138, Potassium 4.3, Chloride 105, Carbon Dioxide 26.0, Anion Gap 8, BUN 51 H, Creatinine 1.31 H, Estim Creat Clear Calc 27.38, Est GFR (MDRD) Af Amer 50 L, Est GFR (MDRD) Non-Af 41 L, BUN/Creatinine Ratio 38.9 H, Glucose 131 H, Calcium 8.5 09/02/24 08:07: POC Glucose 114 H 09/02/24 10:35: Hgb 7.3 L, Hct 24.2 L 09/02/24 11:23: POC Glucose 363 H Micro: Microbiology 09/01/24 21:05 Stool Stool Occult Blood (ADENIKE) - Final Occult Blood Positive 08/26/24 02:49 Blood Culture (Wb) - Anticubital Right Blood Culture - Final No growth in 5 days. 08/26/24 01:45 Blood Culture (Wb) - Anticubital Left Blood Culture - Final No growth in 5 days. 08/26/24 03:00 Urine, Clean Catch Urine Culture - Final Culture exhibits no growth. 08/26/24 22:00 Urine, Random Legionella Antigen - Final 08/26/24 22:00 Urine, Random Streptococcus pneumoniae Antigen (M - Final 08/26/24 01:45 Mucosa - Nose SARS-CoV-2, Influenza & RSV (PCR) - Final Physical Exam Const alert, oriented x3, no apparent distress, average body habitus and well nourished General Appearance: cooperative, well kempt and well developed Orientation / Consciousness: awake, oriented to person, oriented to place and oriented to time HEENT normocephalic, head/scalp atraumatic, hearing grossly normal bilaterally and moist oral mucous membranes Eyes PERRL, EOMs intact bilaterally and conjunctivae normal Neck no lymphadenopathy, supple, no JVD, thyroid normal and no carotid bruits General: trachea midline Lymph Lymphatic: no lymphadenopathy noted and no lymphedema noted Resp normal respiratory effort Resp Narrative: mildly diminished breath sounds bibasally, no wheezes or crackles. on room air Auscultation: Negative for rales, rhonchi or wheezes Cardio regular rate, regular rhythm, S1 normal heart sound, S2 normal heart sound, no murmurs, no rub and no gallops GI normal to inspection, nondistended, normoactive bowel sounds, soft to palpation, non-tender and non-distended Extremity normal to inspection, full ROM, normal capillary refill and no clubbing, cyanosis or edema General Extremity: no tenderness to palpation of joints or extremities Skin no rashes or lesions noted Skin Narrative: Patient has no evidence of rash, abscess, wounds or jaundice. General Skin Exam: no breakdown and turgor normal Neuro oriented x3, CN's II-XII intact bilaterally, moves all extremities, no focal motor deficits and no sensory deficits noted Sensorium / Orientation: awake, alert, oriented to person, oriented to place and oriented to time Speech: speech normal Motor Exam: strength 5/5 throughout and general weakness Psych thought process normal, cooperative and affect normal Appearance: appropriate Assessment & Plan Assessment/Plan (1) PAF (paroxysmal atrial fibrillation): (2) Essential hypertension: (3) COPD exacerbation: PLAN: Plan #Acute exacerbation of COPD resolved. Titrate oxygen to maintain saturation above 90%. on PO prednisone #Acute on chronic anemia Hb today is 7.7. Was 7 yesterday. 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 On IV pantoprazole. Eliquis on hold. Eliquis was resumed yesterday. Hemoglobin this morning was 7 and repeat 7.3. Eliquis therefore held again today. Patient discussion with GI to give patient IV iron. However patient has an allergy to IV iron as she had anaphylactic reaction to it previously. Will therefore continue oral iron supplementation as iron profile showed iron deficiency anemia. I had an extensive discussion with patient about risk versus benefits of resuming Eliquis and continuing on it in light of her A-fib. Patient states that she understands that if she stops taking the Eliquis she is at an increased risk of stroke. However she is worried about the bleeding she is also having with the Eliquis. She wants to think about this some more and decide. transfuse if hb <7 #Hyperkalemia: Resolved. #Type 2 diabetes mellitus: On insulin sliding scale. Accu-Cheks ACHS. On Lantus 35 units twice daily which was started as her home dose of Trulicity was held. Place back on Trulicity on discharge. lantus resumed. #Leukocytosis: Wbc today is down to 17. #Thrombocytosis this is chronic. platelets are down to 749. Was 552 on admission. May be related to acute illness. Will monitor closely. To follow-up with hematology outpatient basis. #Paroxysmal A-fib: On Cardizem and Eliquis. Eliquis held today due to anemia. #Benign essential hypertension: On lisinopril and clonidine. Lisinopril held due to hyperkalemia #Debility and weakness Awaiting placement. PT OT on board. Fall precautions. #CKD 3: Cr is 1.13 which is around her baseline. Will monitor. #DVT prophylaxis: SCDs. continue holding eliquis Disposition: DC back to SNF once medically stable. Charges/Coding Visit Charges Inpatient E&M: 61089 Subs Hosp L3
[2024-09-02] MEDS: Magnesium Hydroxide 30 ML UDC PO (13:53)
[2024-09-02 14:39] LABS: Pathologist Review Reviewed
--- NOTE | 2024-09-02 14:46 | CASEMGMT ---
[facility] has obtained new auth to admit. SW updated. Ashely Manley DC Planning Asst.
--- NOTE | 2024-09-02 15:03 | CASEMGMT ---
Social Work- Precrt has been obtained. SW received word from physician that pt will not discharge today due to bloodwork. SW updated DCA. SW remains available to follow. Plan: [facility]; when medically ready [facility] Villalob[facility]
[2024-09-02 16:58] LABS: Bedside Glucose 84 mg/dL (74-106)
--- NOTE | 2024-09-02 17:01 | NURSING ---
Family called this RN into the room and said that the pt was really pale and seemed to have a puffy face. She is just not feeling well and has been having an issues with constipation. I took v/s and her bp was 11/40 and blood sugar was 89. Pt was offered a snack and I informed Dr. Douglas of the above issues. She said to hold BP meds and order 2L of NS and run it at 125ml/hr.
[2024-09-02] MEDS: 0.9% Normal Saline (1000mL) 1,000 ML 125 ML IV (17:16)
[2024-09-02] MEDS: 0.9% Saline Lock 10 ML Syringe IV ×2 (17:18→21:13)
--- NOTE | 2024-09-02 17:43 | PCM.PN.BLA ---
Progress Note New patient iron transfusion because the patient had a near anaphylactic reaction from prior infusions in the past. I had a long talk with her daughter. Physical Exam Const alert, oriented x3, no apparent distress, average body habitus and well nourished General Appearance: cooperative, well kempt and well developed Orientation / Consciousness: awake, oriented to person, oriented to place and oriented to time HEENT normocephalic, head/scalp atraumatic, hearing grossly normal bilaterally and moist oral mucous membranes Eyes PERRL, EOMs intact bilaterally and conjunctivae normal Neck no lymphadenopathy, supple, no JVD, thyroid normal and no carotid bruits General: trachea midline Lymph Lymphatic: no lymphadenopathy noted and no lymphedema noted Resp normal respiratory effort Resp Narrative: mildly diminished breath sounds bibasally, no wheezes or crackles. on room air Auscultation: Negative for rales, rhonchi or wheezes Cardio regular rate, regular rhythm, S1 normal heart sound, S2 normal heart sound, no murmurs, no rub and no gallops GI normal to inspection, nondistended, normoactive bowel sounds, soft to palpation, non-tender and non-distended Extremity normal to inspection, full ROM, normal capillary refill and no clubbing, cyanosis or edema General Extremity: no tenderness to palpation of joints or extremities Skin no rashes or lesions noted Skin Narrative: Patient has no evidence of rash, abscess, wounds or jaundice. General Skin Exam: no breakdown and turgor normal Neuro oriented x3, CN's II-XII intact bilaterally, moves all extremities, no focal motor deficits and no sensory deficits noted Sensorium / Orientation: awake, alert, oriented to person, oriented to place and oriented to time Speech: speech normal Motor Exam: strength 5/5 throughout and general weakness Psych thought process normal, cooperative and affect normal Appearance: appropriate Assessment & Plan Assessment/Plan (1) PAF (paroxysmal atrial fibrillation): (2) Essential hypertension: (3) COPD exacerbation: (4) Anemia: QUALIFIERS: Anemia type: iron deficiency Iron deficiency anemia type: chronic blood loss Qualified Code(s): D50.0 - Iron deficiency anemia secondary to blood loss (chronic) PLAN: Plan 83-year-old with an acute exacerbation of COPD he also discovered to have an acute on chronic anemia -Push enteroscopy discovered by multiple angiodysplastic lesions that were treated endoscopically. After talking with her daughter I discovered that her nurse practitioner had talked about her having a Watchman procedure if she can get off of Eliquis for atrial fibrillation. He also had peripheral stents placed last year by Dr. Choe and antiplatelet therapy. She was supposed to be able to go aspirin only as per the daughter. She will need to discuss with her medical team the risk and benefits to being on antiplatelet and anticoagulation therapy in the setting of multiple gastrointestinal angiodysplastic lesions leading to frequent acute on chronic GI bleeds. I will transfuse her 2 units of packed blood cells because she cannot get any other way as per her daughter. Visit Charges Inpatient E&M: 07875 [facility] Hosp L3
[2024-09-02] MEDS: Atorvastatin Calcium 40 MG Tablet PO (21:09)
[2024-09-02] MEDS: DULoxetine Hcl 30 MG Capsule PO (21:09)
[2024-09-02] MEDS: Magnesium Chloride 64 MG Delay Rel.Tablet PO (21:09)
[2024-09-02] MEDS: traZODone 50 MG Tablet PO (21:09)
[2024-09-02 21:41] LABS: Bedside Glucose 350 mg/dL (74-106)
[2024-09-03] VITALS (13 sets, daily range): BP systolic 118–149; BP diastolic 47–70; PULSE 89–118; RESP 16–20; TEMP 36.6–36.8; O2SAT 94–96; BMI 26.2
[2024-09-03] MEDS: Ipratropium Bromide 0.06% NASAL SPRAY 2 SPRAY NASAL ×2 (05:53→13:52)
[2024-09-03 06:40] LABS: Hematocrit 31.8 % (37-47); Hemoglobin 9.9 g/dL (12.0-15.0); Mean Corp Hgb Conc 31.1 g/dL (32-36); Mean Corpuscular Hgb 26.6 pg (27.0-32.0); Mean Corpuscular Volume 85.5 fL (81-99); Mean Platelet Vol. 8.8 fl (6.2-12.0); POSITIVE COUNT YES; POSITIVE MORPHOLOGY YES; Platelet Count 618 K/mm3 (150-450); RBC Distribution Width CV 17.8 % (11.6-14.6); RBC Distribution Width SD 55.6 fl (35.1-43.9); Red Blood Count 3.72 M/mm3 (4.2-5.4)
[2024-09-03] MEDS: Ipratropium/Albuterol Sulfate 3 ML AMPUL.NEB INHALATION ×3 (06:44→15:22)
[2024-09-03 07:02] LABS: Bedside Glucose 223 mg/dL (74-106)
[2024-09-03 07:07] LABS: Anion Gap 6 (5-15); BUN 40 mg/dL (7-18); BUN/Creat Ratio 35.7 RATIO (10-20); Calcium,Total 8.8 mg/dL (8.5-10.1); Chloride 107 mmol/L (98-107); Creatinine, Serum 1.12 mg/dL (0.55-1.02); EST Glomerular Filtration Rate 50 mL/min (>60); Est Glom Filt Rate - Afr Amer 60 mL/min (>60); Estimated Creatinine Clearance 32.08 ml/min; Glucose 226 mg/dL (74-106); Potassium 4.4 mmol/L (3.5-5.1); Sodium Level 138 mmol/L (136-145)
[2024-09-03 07:13] LABS: Differential Indicated MANUAL DIFF
[2024-09-03] MEDS: Calcium Carbonate 500 MG Tablet 1000 MG PO (07:56)
[2024-09-03] MEDS: Insulin Lispro 100 UNIT/ML INSULN.PEN SC ×2 (07:57→17:07)
[2024-09-03] MEDS: Insulin Lispro 100 UNIT/ML INSULN.PEN 15 UNIT SC ×2 (07:57→17:08)
[2024-09-03] MEDS: Zinc Sulfate 50 mg zinc (220 mg) ORAL capsule PO (07:58)
[2024-09-03] MEDS: Lactobacillis Acidophilus 1 CAP PO ×3 (07:58→17:08)
[2024-09-03] MEDS: Cholecalciferol (Vit D3) 125 MCG CAPSULE (5,000 UNITS) PO (07:58)
[2024-09-03] MEDS: guaiFENesin 1,200 MG Tablet 1200 MG PO (07:58)
[2024-09-03] MEDS: Ascorbic Acid 500 MG Tablet PO (07:58)
[2024-09-03] MEDS: 0.9% Normal Saline (1000mL) 1,000 ML 125 ML IV (08:18)
[2024-09-03] MEDS: Pantoprazole Sodium 40 MG in 0.9% Normal Saline (100mL MB+) 100 ML 330 MG IV (09:33)
[2024-09-03 10:06] LABS: Lymphocyte 11 % (19-41); Metamyelocyte 1 % (0-1); Monocyte 10 % (0-10); Myelocyte 6 % (0-0); Neutrophil-Segmented 72 % (47-70); Total Cells Counted 100 (MANUAL DIFF)
[2024-09-03 10:07] LABS: Absolute Neutrophil Count 10.1 X10^3/uL (2.0-7.7); Platelet Estimate MKD INC (ADEQ); Red Cell Morphology NORM C+C NORMAL (NORM C&C)
[2024-09-03] MEDS: dilTIAZem CD 240 MG Capsule PO (10:21)
[2024-09-03 12:19] LABS: Bedside Glucose 123 mg/dL (74-106)
[2024-09-03 13:42] LABS: Pathologist Review Reviewed
--- NOTE | 2024-09-03 14:29 | TREXTCAR_ITS ---
Diet Diet Order/Speech Therapy: 09/01/24 11:51 Diet: Consistent Carb - Calorie Controlled Type of Dietary Supplement:: Glucerna Shake Diet Comments: Chocolate Glucerna, please How many daily calories?: 1800 calorie Routine Orders/Code Status Enema Type: Fleetz Enema Frequency: Daily PRN Code Status: Full Code DC O2, CPAP, BIPAP needs RN Home O2 Qualification: Home O2 Qualification: Is the patient on home oxygen No 09/03/24 08:52 Home O2 Qualification: AT REST 1- Pulse Ox at rest 96 09/03/24 08:52 Home O2 Qualification: WITH AMBULATION 1- Pulse Ox with ambulation 96 09/03/24 08:52 1- Oxygen Flow Rate with 0 09/03/24 08:52 ambulation Home O2 Discharge instructions: No Therapies Weight Bearing: Full weight bearing Physical Therapy: Eval and Treat Occupational Therapy: Eval and Treat Problem/Diagnosis (1) PAF (paroxysmal atrial fibrillation): Status: Inactive Code(s): I48.0 - Paroxysmal atrial fibrillation (2) Essential hypertension: Status: Inactive Code(s): I10 - Essential (primary) hypertension (3) COPD exacerbation: Status: Resolved Code(s): J44.1 - Chronic obstructive pulmonary disease with (acute) exacerbation (4) Anemia: Status: Acute Code(s): D64.9 - Anemia, unspecified Plan Patient is an 83-year-old female who presented [facility] ED on 08/26/2024 with worsening shortness of breath. Hospital course as noted below. Patient discharged to SNF in stable condition on 09/03. 1. 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 GI followed. Had EGD with Dr. Hou on 09/01 but showed multiple bleeding angiodysplastic lesions in the duodenum that were treated with heater probe. Hemoglobin remained around 7 post EGD, was transfused 2 units of blood on 09/02 with repeat hemoglobin 9.9 on 09/03. Patient feeling much improved on day of discharge. On discussion with Dr. Hou and family, decision was made to discontinue Eliquis moving forward. Patient and family are aware of the increased risk of stroke off of Eliquis given her paroxysmal A-fib. However, patient has now had multiple GI bleeds while on Eliquis and per Dr. Friend, given her underlying medical conditions is at high risk for continuing to develop intestinal AVMs. Recommend repeat CBC in 5 to 7 days. Continue p.o. PPI twice daily on discharge. 2. COPD exacerbation with hypoxia ? Treated with IV steroids and scheduled DuoNebs on admission with good improvement. Weaned off supplemental oxygen earlier in hospitalization. Will plan for short steroid taper on discharge. 3. Hyperkalemia, resolved ? Potassium 5.5 on admit, resolved with treatment. 4. Thrombocytosis, improving ? Platelet count peaked at 842 on 09/01, but improving with last platelet count 618 on day of discharge. Presumed reactive secondary to GI bleed and COPD exacerbation as noted above. Follow-up CBC in 5 to 7 days as noted above. 5. Type 2 diabetes mellitus ? Continue home regimen on discharge. 6. Acute on chronic debility ? PT/OT/case management follow-up. Stable for discharge to SNF on 09/03. 7. Paroxysmal A-fib ? Remained stable in normal sinus rhythm during hospitalization. As noted above, decision made to discontinue Eliquis on discharge. Will continue home Cardizem. 8. Recent history of PAD with stenting, hypertension, hyperlipidemia ?Had stenting done with vascular surgery at outside institution in May 2024. Continue home Plavix, atorvastatin, clonidine, diltiazem, and lisinopril. 9. CKD stage III ? Creatinine stable at baseline 1.0-1.2 during hospitalization. 10. Anxiety/depression ? Stable. Continue home duloxetine. Total clinical time spent by myself addressing the patient's medical issues, reviewing all the data, and collaborating with patient's care team: 45 minutes. Allergies/Procedures Done in Hospital Allergies ferrous sulfate Allergy (Intermediate, Verified 08/26/24 01:09) Other had a reaction to iv iron iron Adverse Reaction (Severe, Verified 09/02/24 11:03) Low blood pressure, anaphylaxis REACTION BASED ON IV IRON. ORAL IRON DOESNOT CAUSE SAME RESPONSE. gabapentin Adverse Reaction (Intermediate, Verified 08/26/24 01:09) Pedal edema pregabalin (From Lyrica) Adverse Reaction (Intermediate, Verified 08/26/24 01:09) Pedal edema codeine Adverse Reaction (Verified 08/26/24 01:09) Nausea Tetracyclines Adverse Reaction (Verified 08/26/24 01:09) Nausea Procedures: None, EGD and EKG Type of Care/Length of Stay Estimated LOS: Convalescent Care Less Than 30 days Type of Care Needed: Skilled Rehab Potential: Fair Prognosis: Fair Additional Orders/Day of Discharge H&P will serve as current which was dated: 08/26/24 Day of Discharge: 09/03/24 Dietary and Speech Recommendations Dietitian Recommendations/Changes: Adjust to cardiac;1800 calorie controlled/consistent carbohydrate diet. Continue 120ml glucerna shake TID with meals. Will d/c 120ml glucerna shake TID with medpass since pt is getting glucerna with meals. Will monitor weight trends. Discharge Plan Admission Admit Date/Time: 08/26/24 03:04 Primary Reason for Your Visit: acute copd exacerbation Attending Provider: Alonso Williamson Primary Care Provider: Jeff Suresh NP Consulting Providers: Kd Mcfarlane; Melissa England; Ramin Worrell; Nai Douglas Discharge Orders/Prescriptions Prescriptions: New prednisone 20 mg tablet See Taper PO DAILY 3 Days Qty: 6 0RF Taper: Prednisone Taper 40 mg WITH BREAKFAST for 3 Days and 0 Hour 30 mg WITH BREAKFAST for 3 Days and 0 Hour 20 mg WITH BREAKFAST for 3 Days and 0 Hour 10 mg WITH BREAKFAST for 3 Days and 0 Hour Continued ascorbic acid (vitamin C) 500 mg capsule 500 mg PO DAILY clonidine HCl 0.2 mg tablet 0.2 mg PO QHS diltiazem HCl 120 mg capsule,extended release 24hr 240 mg PO DAILY duloxetine 30 mg capsule,delayed release(DR/EC) 30 mg PO QHS Trulicity 1.5 mg/0.5 mL pen injector 1.5 mg subcut QWEEK Rx Instructions: takes on Friday lisinopril 5 mg tablet 5 mg PO DAILY (DME) spacer See Rx Instructions .Route .MEDSUPPLY Qty: 1 0RF Rx Instructions: As directed (DME) Aerochamber Plus Flow-Vu Spacer See Rx Instructions .ROUTE .MEDSUPPLY Qty: 1 Patient Comments: [NO ORIGINAL SIG] Rx Instructions: As directed ipratropium bromide 42 mcg (0.06 %) spray,non-aerosol 2 spray intranasal TID Qty: 15 2RF Rx Instructions: administer into each nostril ipratropium-albuterol 0.5 mg-3 mg(2.5 mg base)/3 mL solution for nebulization 3 ml inhalation Q4H PRN (Reason: shortness of breath or wheezing) Qty: 180 11RF clopidogrel 75 mg tablet 75 mg PO DAILY glipizide 2.5 mg tablet extended release 24hr 2.5 mg PO DAILY pantoprazole 40 mg tablet,delayed release (DR/EC) 40 mg PO DAILY atorvastatin 40 mg tablet 40 mg PO QHS Patient Comments: [NO ORIGINAL SIG] cholecalciferol (vitamin D3) [Vitamin D3] 125 mcg (5,000 unit) tablet 125 mcg PO DAILY Foltrate 0.5-1 mg tablet 1 tab PO DAILY coQ10 (ubiquinol) [CoQmax Ubiquinol] 100 mg capsule 100 mg PO DAILY magnesium 250 mg tablet 250 mg PO QHS calcium 500 mg tablet 1,000 mg PO DAILY budesonide 0.5 mg/2 mL suspension for nebulization 0.5 mg inhalation Q12H Patient Comments: [NO ORIGINAL SIG] trazodone 50 mg tablet 50 mg PO DAILY albuterol sulfate 90 mcg/actuation HFA aerosol inhaler 2 inh INHALATION Q4H PRN Qty: 18 6RF albuterol sulfate 2.5 mg /3 mL (0.083 %) solution for nebulization 2.5 mg INHALATION Q4H PRN PRN (Reason: COPD) Qty: 90 3RF Changed ferrous gluconate 324 mg (38 mg iron) tablet 324 mg PO BID Qty: 60 2RF Discontinued Eliquis 2.5 mg tablet 2.5 mg PO Q12H amoxicillin-pot clavulanate 875-125 mg tablet 1 tab PO BID Qty: 20 0RF Patient Comments: 1st dose on 08/25/24 Referrals / Follow Up: Ryan Hou DO [Med Staff - Active Staff] - Within 2 Weeks (follow up o./a of iron deficiency anemia) Jeff Suresh NP, SAFETY AND OCCUPATIONAL HEALTH MANAGER-C [Primary Care Provider] - Within 1 Week Disposition Disposition (needs filled in before D/C Order can be placed): [facility] ([facility]) Anemia Qualifiers: Anemia type: iron deficiency Iron deficiency anemia type: chronic blood loss Qualified Code(s): D50.0 - Iron deficiency anemia secondary to blood loss (chronic)
--- NOTE | 2024-09-03 14:43 | PCM.DC.SUM ---
Providers Date of Admission: 08/26/24 Date of Discharge: 09/03/24 Primary Care Physician: JEAN Obrien Consultations 08/26/24 18:22 Consult: Supervisor Felting / Pulmonary Medicine Routine Consulting Provider: Intensivists/Pulmonary Med Reason for Consult: Exacerbation of COPD, family request EMERGENT Consult: No Notified: No Date Notified: 08/26/24 Time Notified: 18:25 08/31/24 07:43 Consult: Gastroenterology Routine Consulting Provider: [facility] Reason for Consult: acute on chronic iron deficiency anemia EMERGENT Consult: No Notified: Yes Date Notified: 08/31/24 Time Notified: 07:44 Method of Notification: Text Reason For Visit: AE COPD, PNEUMONIA AND RESPIRATORY INSUFFICIENCY Diagnosis Discharge Diagnosis (1) PAF (paroxysmal atrial fibrillation): Status: Inactive Code(s): I48.0 - Paroxysmal atrial fibrillation (2) Essential hypertension: Status: Inactive Code(s): I10 - Essential (primary) hypertension (3) COPD exacerbation: Status: Resolved Code(s): J44.1 - Chronic obstructive pulmonary disease with (acute) exacerbation (4) Anemia: Status: Acute Code(s): D64.9 - Anemia, unspecified Qualifiers: Anemia type: iron deficiency Iron deficiency anemia type: chronic blood loss Qualified Code(s): D50.0 - Iron deficiency anemia secondary to blood loss (chronic) Medications at Discharge Home Medications ascorbic acid (vitamin C) 500 mg capsule 500 mg PO DAILY 11/28/22 clopidogrel 75 mg tablet 75 mg PO DAILY 04/30/23 glipizide 2.5 mg tablet, extended release 24 hr 2.5 mg PO DAILY 09/19/23 pantoprazole 40 mg tablet,delayed release 40 mg PO DAILY 09/19/23 clonidine HCl 0.2 mg tablet 0.2 mg PO QHS 03/18/24 diltiazem HCl 120 mg capsule,extended release 24 hr 240 mg PO DAILY 03/18/24 dulaglutide 1.5 mg/0.5 mL subcutaneous pen injector (Trulicity) 1.5 mg subcut QWEEK 03/18/24 duloxetine 30 mg capsule,delayed release 30 mg PO QHS 03/18/24 albuterol sulfate 90 mcg/actuation aerosol inhaler 2 inh inhalation Q4H PRN COPD #18 grams 07/06/24 lisinopril 5 mg tablet 5 mg PO DAILY 07/14/24 albuterol sulfate 2.5 mg/3 mL (0.083 %) solution for nebulization 2.5 mg (3 mL) inhalation Q4H PRN PRN COPD #90 mL 07/30/24 spacer #1 ea 08/03/24 inhalational spacing device (Aerochamber Plus Flow-Vu) #1 ea 08/13/24 ipratropium bromide 42 mcg (0.06 %) nasal spray 2 spray intranasal TID #15 mL 08/13/24 ipratropium 0.5 mg-albuterol 3 mg (2.5 mg base)/3 mL nebulization soln 3 ml inhalation Q4H PRN shortness of breath or wheezing #180 mL 08/23/24 atorvastatin 40 mg tablet 40 mg PO QHS 08/26/24 budesonide 0.5 mg/2 mL suspension for nebulization 0.5 mg inhalation Q12H 08/26/24 calcium 500 mg tablet 1,000 mg PO DAILY 08/26/24 cholecalciferol (vitamin D3) 125 mcg (5,000 unit) tablet (Vitamin D3) 125 mcg PO DAILY 08/26/24 coQ10 (ubiquinol) 100 mg capsule (CoQmax Ubiquinol) 100 mg PO DAILY 08/26/24 magnesium 250 mg tablet 250 mg PO QHS 08/26/24 trazodone 50 mg tablet 50 mg PO DAILY 08/26/24 vitamin B12 0.5 mg-folic acid 1 mg tablet (Foltrate) 1 tab PO DAILY 08/26/24 ferrous gluconate 324 mg (38 mg iron) tablet 324 mg PO BID #60 tabs 08/30/24 prednisone 20 mg tablet See Taper PO DAILY 3 days #6 tabs 09/03/24 Hospital Course Operations None Procedures EGD, EKG and - (Chest x-ray, CTA chest) Summary of Care Provided Minutes Spent on Discharge: 45 Hospital Course: Patient is an 83-year-old female who presented [facility] ED on 08/26/2024 with worsening shortness of breath. Hospital course as noted below. Patient discharged to SNF in stable condition on 09/03. 1. 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 GI followed. Had EGD with Dr. Hou on 09/01 but showed multiple bleeding angiodysplastic lesions in the duodenum that were treated with heater probe. Hemoglobin remained around 7 post EGD, was transfused 2 units of blood on 09/02 with repeat hemoglobin 9.9 on 09/03. Patient feeling much improved on day of discharge. On discussion with Dr. Hou and family, decision was made to discontinue Eliquis moving forward. Patient and family are aware of the increased risk of stroke off of Eliquis given her paroxysmal A-fib. However, patient has now had multiple GI bleeds while on Eliquis and per Dr. Hou, given her underlying medical conditions is at high risk for continuing to develop intestinal AVMs. Recommend repeat CBC in 5 to 7 days. Continue p.o. PPI twice daily on discharge. 2. COPD exacerbation with hypoxia ? Treated with IV steroids and scheduled DuoNebs on admission with good improvement. Weaned off supplemental oxygen earlier in hospitalization. Will plan for short steroid taper on discharge. 3. Hyperkalemia, resolved ? Potassium 5.5 on admit, resolved with treatment. 4. Thrombocytosis, improving ? Platelet count peaked at 842 on 09/01, but improving with last platelet count 618 on day of discharge. Presumed reactive secondary to GI bleed and COPD exacerbation as noted above. Follow-up CBC in 5 to 7 days as noted above. 5. Type 2 diabetes mellitus ? Continue home regimen on discharge. 6. Acute on chronic debility ? PT/OT/case management follow-up. Stable for discharge to SNF on 09/03. 7. Paroxysmal A-fib ? Remained stable in normal sinus rhythm during hospitalization. As noted above, decision made to discontinue Eliquis on discharge. Will continue home Cardizem. 8. Recent history of PAD with stenting, hypertension, hyperlipidemia ?Had stenting done with vascular surgery at outside institution in May 2024. Continue home Plavix, atorvastatin, clonidine, diltiazem, and lisinopril. 9. CKD stage III ? Creatinine stable at baseline 1.0-1.2 during hospitalization. 10. Anxiety/depression ? Stable. Continue home duloxetine. Total clinical time spent by myself addressing the patient's medical issues, reviewing all the data, and collaborating with patient's care team: 45 minutes. Physical Exam Const alert, oriented x3, no apparent distress and average body habitus Constitutional Narrative: Elderly female, energy improved from admission, sitting up comfortably in bed, conversing normally, no acute distress. General Appearance: cooperative and comfortable HEENT normocephalic, head/scalp atraumatic, hearing grossly normal bilaterally, nasal mucous membranes and turbinates normal and moist oral mucous membranes Eyes PERRL, EOMs intact bilaterally and conjunctivae normal Neck full ROM Chest inspection of chest normal Resp normal respiratory effort and no use of accessory muscles Resp Narrative: Breathing comfortably on room air at rest. Good air movement throughout bilaterally, no wheezing or crackles noted. Cardio regular rate, regular rhythm, no murmurs and peripheral pulses 2+ throughout GI normal to inspection, nondistended, normoactive bowel sounds, soft to palpation, non-tender and non-distended Back/Spine normal ROM Extremity normal to inspection and no pedal edema Skin no rashes or lesions noted Neuro moves all extremities and no focal motor deficits Psych mental status grossly normal Weight / BMI Weight Weight: 60.7 kg Body Mass Index (BMI) 26.2 ABG / Lab / Microbiology Data 09/03/24 06:11 09/03/24 06:11 Laboratory: Laboratory Results - last 24 hr 09/02/24 06:02: Diff Path Review Reviewed 09/02/24 16:37: POC Glucose 84 09/02/24 19:17: Blood Type AB POSITIVE, Antibody Screen NEGATIVE, Crossmatch See Detail 09/02/24 21:08: POC Glucose 350 H 09/03/24 06:11: WBC 14.0 H, RBC 3.72 L, Hgb 9.9 L, Hct 31.8 L, MCV 85.5 D, MCH 26.6 L, MCHC 31.1 L, RDW Std Deviation 55.6 H, RDW Coeff of Tia 17.8 H, Plt Count 618 H, MPV 8.8, Neut % (Auto) Not Reportable, Absolute Neuts (auto) 10.1 H, Absolute Lymphs (auto) 1.50, Total Counted 100, Neutrophils % (Manual) 72 H, Lymphocytes % (Manual) 11 L, Monocytes % (Manual) 10, Metamyelocytes % 1, Myelocytes % 6 H, Diff Path Review May foll, Platelet Estimate MKD INC, RBC Morphology NORM C+C, Sodium 138, Potassium 4.4, Chloride 107, Carbon Dioxide 26.0, Anion Gap 6, BUN 40 H, Creatinine 1.12 H, Estim Creat Clear Calc 32.08, Est GFR (MDRD) Af Amer 60, Est GFR (MDRD) Non-Af 50 L, BUN/Creatinine Ratio 35.7 H, Glucose 226 H, Calcium 8.8 09/03/24 06:44: POC Glucose 223 H 09/03/24 12:00: POC Glucose 123 H Microbiology: Microbiology 09/01/24 21:05 Stool Stool Occult Blood (ADENIKE) - Final Occult Blood Positive 08/26/24 02:49 Blood Culture (Wb) - Anticubital Right Blood Culture - Final No growth in 5 days. 08/26/24 01:45 Blood Culture (Wb) - Anticubital Left Blood Culture - Final No growth in 5 days. 08/26/24 03:00 Urine, Clean Catch Urine Culture - Final Culture exhibits no growth. 08/26/24 22:00 Urine, Random Legionella Antigen - Final 08/26/24 22:00 Urine, Random Streptococcus pneumoniae Antigen (M - Final 08/26/24 01:45 Mucosa - Nose SARS-CoV-2, Influenza & RSV (PCR) - Final D/C Instructions Discharge Diet: Low fat / Low cholesterol Weight Bearing Status: Weight bearing as tolerated Call your doctor if you observe: Fever of 101 or Higher, Shortness of breath, Dizziness, Swelling in the ankles and Chest pain DC O2, CPAP, BIPAP Needs RN Home O2 Qualification: Home O2 Qualification: Is the patient on home oxygen No 09/03/24 08:52 Home O2 Qualification: AT REST 1- Pulse Ox at rest 96 09/03/24 08:52 Home O2 Qualification: WITH AMBULATION 1- Pulse Ox with ambulation 96 09/03/24 08:52 1- Oxygen Flow Rate with 0 09/03/24 08:52 ambulation Home O2 Discharge instructions: No Meaningful Use Info Meaningful Use Meaningful Use Diagnoses (Choose all that apply): None applicable Ischemic Stroke Statin Dosing Therapy Reference: STATIN DOSE THERAPY REFERENCE: * Patients > 75 years receive moderate or high dose statin therapy. * Patients 75 years or YOUNGER should receive HIGH intensity statin dose unless contraindicated. You will be required to document reason for non-treatment if statin daily dose does not meet guidelines. HIGH DOSE STATIN THERAPY DAILY Atorvastatin > than or = to 40 mg Rosuvastatin > than or = to 20 mg Amlodipine + Atorvastatin > than or = to 2.5/40 mg Ezetimibe + Simvastatin 10/80 mg Simvastatin 80mg Discharge Plan Admission Admit Date/Time: 08/26/24 03:04 Primary Reason for Your Visit: acute copd exacerbation Attending Provider: Alonso Williamson Primary Care Provider: Jeff Suresh NP Consulting Providers: Kd Mcfarlane; Melissa England; Ramin Worrell; Nai Douglas Discharge Orders/Prescriptions Prescriptions: New prednisone 20 mg tablet See Taper PO DAILY 3 Days Qty: 6 0RF Taper: Prednisone Taper 40 mg WITH BREAKFAST for 3 Days and 0 Hour 30 mg WITH BREAKFAST for 3 Days and 0 Hour 20 mg WITH BREAKFAST for 3 Days and 0 Hour 10 mg WITH BREAKFAST for 3 Days and 0 Hour Continued ascorbic acid (vitamin C) 500 mg capsule 500 mg PO DAILY clonidine HCl 0.2 mg tablet 0.2 mg PO QHS diltiazem HCl 120 mg capsule,extended release 24hr 240 mg PO DAILY duloxetine 30 mg capsule,delayed release(DR/EC) 30 mg PO QHS Trulicity 1.5 mg/0.5 mL pen injector 1.5 mg subcut QWEEK Rx Instructions: takes on Friday lisinopril 5 mg tablet 5 mg PO DAILY (DME) spacer See Rx Instructions .Route .MEDSUPPLY Qty: 1 0RF Rx Instructions: As directed (DME) Aerochamber Plus Flow-Vu Spacer See Rx Instructions .ROUTE .MEDSUPPLY Qty: 1 Patient Comments: [NO ORIGINAL SIG] Rx Instructions: As directed ipratropium bromide 42 mcg (0.06 %) spray,non-aerosol 2 spray intranasal TID Qty: 15 2RF Rx Instructions: administer into each nostril ipratropium-albuterol 0.5 mg-3 mg(2.5 mg base)/3 mL solution for nebulization 3 ml inhalation Q4H PRN (Reason: shortness of breath or wheezing) Qty: 180 11RF clopidogrel 75 mg tablet 75 mg PO DAILY glipizide 2.5 mg tablet extended release 24hr 2.5 mg PO DAILY pantoprazole 40 mg tablet,delayed release (DR/EC) 40 mg PO DAILY atorvastatin 40 mg tablet 40 mg PO QHS Patient Comments: [NO ORIGINAL SIG] cholecalciferol (vitamin D3) [Vitamin D3] 125 mcg (5,000 unit) tablet 125 mcg PO DAILY Foltrate 0.5-1 mg tablet 1 tab PO DAILY coQ10 (ubiquinol) [CoQmax Ubiquinol] 100 mg capsule 100 mg PO DAILY magnesium 250 mg tablet 250 mg PO QHS calcium 500 mg tablet 1,000 mg PO DAILY budesonide 0.5 mg/2 mL suspension for nebulization 0.5 mg inhalation Q12H Patient Comments: [NO ORIGINAL SIG] trazodone 50 mg tablet 50 mg PO DAILY albuterol sulfate 90 mcg/actuation HFA aerosol inhaler 2 inh INHALATION Q4H PRN Qty: 18 6RF albuterol sulfate 2.5 mg /3 mL (0.083 %) solution for nebulization 2.5 mg INHALATION Q4H PRN PRN (Reason: COPD) Qty: 90 3RF Changed ferrous gluconate 324 mg (38 mg iron) tablet 324 mg PO BID Qty: 60 2RF Discontinued Eliquis 2.5 mg tablet 2.5 mg PO Q12H amoxicillin-pot clavulanate 875-125 mg tablet 1 tab PO BID Qty: 20 0RF Patient Comments: 1st dose on 08/25/24 Referrals / Follow Up: Ryan Hou DO [Med Staff - Active Staff] - Within 2 Weeks (follow up o./a of iron deficiency anemia) Jeff Suresh NP, SHEETING PULLER-C [Primary Care Provider] - Within 1 Week Disposition Disposition (needs filled in before D/C Order can be placed[facility] Charges/Coding Visit Charges Inpatient E&M: 08747 Disch Hosp >30min
--- NOTE | 2024-09-03 14:57 | CASEMGMT ---
Patient is ready for discharge to [facility]. SW completed a PASRR in [facility] system. Physicians will transport patient via wheelchair van. Plan: d/c to [facility] under skilled level of care on a PASRR. Physicians will transport patient via wheelchair van. Janae OLSEN
--- NOTE | 2024-09-03 15:40 | CASEMGMT ---
Discharge orders, signed med list, and transport time sent to [facility]. Physicians will transport patient by wheelchair at 6p. Nursing, SW, pt, and her family (in room) updated. Ashely Manley DC Planning Asst.
--- NOTE | 2024-09-03 16:05 | NURSING ---
Report called to Rosa at [facility] [phone]. Pt will be picked up at 18:00 tonight.
--- NOTE | 2024-09-03 17:18 | PN_ITS ---
Progress Note Patient does not have any complaints at this time. I had another long talk with her daughter explaining to her risk and benefits of anticoagulation and antiplatelet therapy. I told her that I would leave it up to her arm rest builder and her vascular surgeon as they placed her on anticoagulation and antiplatelet therapy due to history of atrial fibrillation and peripheral vascular disease with stenting. Physical Exam Const alert, oriented x3, no apparent distress and healthy appearing General Appearance: cooperative GI normal to inspection, nondistended, normoactive bowel sounds, soft to palpation, non-tender and non-distended Percussion: normal to percussion Rectal Exam: deferred Assessment & Plan Assessment/Plan (1) PAF (paroxysmal atrial fibrillation): (2) Essential hypertension: (3) COPD exacerbation: (4) Anemia: QUALIFIERS: Anemia type: iron deficiency Iron deficiency anemia type: chronic blood loss Qualified Code(s): D50.0 - Iron deficiency anemia secondary to blood loss (chronic) PLAN: Plan 83-year-old with an acute exacerbation of COPD he also discovered to have an acute on chronic anemia -Push enteroscopy discovered by multiple angiodysplastic lesions that were treated endoscopically. After talking with her daughter I discovered that her nurse practitioner had talked about her having a Watchman procedure if she can get off of Eliquis for atrial fibrillation. He also had peripheral stents placed last year by Dr. Choe and antiplatelet therapy. She was supposed to be able to go aspirin only as per the daughter. She will need to discuss with her medical team the risk and benefits to being on antiplatelet and anticoagulation therapy in the setting of multiple gastrointestinal angiodysplastic lesions leading to frequent acute on chronic GI bleeds. I will transfuse her 2 units of packed blood cells because she cannot get any other way as per her daughter. * Hb today is 7.7. Was 7 yesterday. 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 * On IV pantoprazole. Eliquis on hold. * Eliquis was resumed yesterday. Hemoglobin this morning was 7 and repeat 7.3. Eliquis therefore held again today. Patient discussion with GI to give patient IV iron. However patient has an allergy to IV iron as she had anaphylactic reaction to it previously. Will therefore continue oral iron supplementation as iron profile showed iron deficiency anemia. * I had an extensive discussion with patient about risk versus benefits of resuming Eliquis and continuing on it in light of her A-fib. Patient states that she understands that if she stops taking the Eliquis she is at an increased risk of stroke. However she is worried about the bleeding she is also having with the Eliquis. She wants to think about this some more and decide. Visit Charges Inpatient E&M: 05824 Subs Hosp L3
[2024-09-03 17:21] LABS: Bedside Glucose 336 mg/dL (74-106)
[2024-09-06 13:37] LABS: Pathologist Review Reviewed
== END 2024-09-03 21:45 | disposition skilled nursing facility (03) | DRG 190 ==
LOC: ED 02:34 → MS3 03:17
PROVIDERS: Internal Medicine; Internal Medicine Gastroenterology; Student in an Organized Health Care Education/Training Program; Admitting Provider Internal Medicine; Emergency Provider Emergency Medicine; PCP Nurse Practitioner Primary Care; Visit Provider Hospitalist
PROC: 0DJ08ZZ Inspection of Upper Intestinal Tract, Via Natural or Artificial Opening Endoscopic (ICD-10-PCS; CPT 43235; principal; 2024-09-01 12:10)
DX: J44.1 Chronic obstructive pulmonary disease with (acute) exacerbation (principal); K31.811 Angiodysplasia of stomach and duodenum with bleeding; J47.1 Bronchiectasis with (acute) exacerbation; D68.32 Hemorrhagic disorder due to extrinsic circulating anticoagulants; K57.92 Diverticulitis of intestine, part unspecified, without perforation or abscess without bleeding; D63.1 Anemia in chronic kidney disease; I48.0 Paroxysmal atrial fibrillation; E86.0 Dehydration; E11.22 Type 2 diabetes mellitus with diabetic chronic kidney disease; N18.30 Chronic kidney disease, stage 3 unspecified; I12.9 Hypertensive chronic kidney disease with stage 1 through stage 4 chronic kidney disease, or unspecified chronic kidney disease; D50.0 Iron deficiency anemia secondary to blood loss (chronic); Z95.820 Peripheral vascular angioplasty status with implants and grafts; E11.40 Type 2 diabetes mellitus with diabetic neuropathy, unspecified; E11.51 Type 2 diabetes mellitus with diabetic peripheral angiopathy without gangrene; E11.65 Type 2 diabetes mellitus with hyperglycemia; K21.9 Gastro-esophageal reflux disease without esophagitis; E78.5 Hyperlipidemia, unspecified; M19.011 Primary osteoarthritis, right shoulder; E87.5 Hyperkalemia; K44.9 Diaphragmatic hernia without obstruction or gangrene; K29.50 Unspecified chronic gastritis without bleeding; Z87.891 Personal history of nicotine dependence; Z79.51 Long term (current) use of inhaled steroids; Z79.85 Long-term (current) use of injectable non-insulin antidiabetic drugs; Z79.02 Long term (current) use of antithrombotics/antiplatelets; Z79.01 Long term (current) use of anticoagulants; Z79.84 Long term (current) use of oral hypoglycemic drugs; R53.81 Other malaise; Y95 Nosocomial condition
CPT/HCPCS: 36415; 71045; 71275; 80048; 80053; 81001; 82274; 82310; 82374; 82435; 82565; 82728; 82947; 82962; 83036; 83540; 83550; 83605; 83735; 84100; 84132; 84295; 84443; 84520; 85014; 85018; 85025; 85610; 85730; 86850; 86900; 86901; 87040; 87070; 87086; 87205; 87449; 87631; 93005; 94640; 94668; 97110; 97116; 97162; 97166; 97530; 97535; 97803; 99252; 99285; P9016; Q9967; A4216; G0463

== ENCOUNTER 2025-02-08 19:55 | Observation (INO) | payer MEDICARE, MEDICAID, SELFPAY ==
--- NOTE | 2025-02-08 19:39 | PCM.HP.STD ---
[facility] - General General Date of Admission: 02/08/25 Date of Service: 02/08/25 Chief Complaint: Abdominal Pain and Constipation. [facility] Narrative ANSON CAPPS, is a 84 F with a past medical history of essential hypertension; on lisinopril and clonidine, hyperlipidemia; on atorvastatin, former tobacco abuse (quit 2015); with subsequent COPD and bronchiectasis, paroxysmal atrial fibrillation; on diltiazem but not on anticoagulation, DM-2; of unknown control on glipizide and dulaglutide, neuropathy; with intolerance to pregabalin and gabapentin (pedal edema), history of TIA (2018), PVD; on clopidogrel, depression; on duloxetine and trazodone, remote history of EtOH abuse; quit more than ~10 years ago, GERD; on pantoprazole, OA; primarily of the Right shoulder, recent admission here from August 26, 2024 to September 03, 2024 for treatment of LLL pneumonia with leukocytosis of 12.6K and Left-shift of 1.6% complicated by clinical evidence of AE COPD with respiratory insufficiency and dehydration with multiple angiodysplastic lesions causing ABLA requiring transfusion of 2 units of PRBC's with stoppage of apixaban; s/p endoscopic treatment and recent fall from standing height on January 23, 2025 with patient landing on the front of her Right knee sustaining a ~7 cm transverse laceration; s/p orthopedic evaluation with no joint aspiration indicated at that time with patient subsequently treated with IV antibiotics which were completed in the hospital while being placed in a knee immobilizer who then returned to [place] [facility] on February 08, 2025 complaining of worsening abdominal pain and constipation who was accepted in transfer by the [facility] hospitalist. CT scan of the abdomen and pelvis there showed significant constipation of large colon without significant rectal stool burden and diverticulosis without evidence of diverticulitis. Her initial lactate was 2.4 mmol/L and improved with IV fluids but otherwise unremarkable laboratory studies except for hyperglycemia of ~300 mg/dL. Her lung bases were notably benign on CT and she was treated empirically with IV vancomycin and IV piperacillin-tazobactam. I personally spoke with the [facility] hospitalist who added the patient has been having difficulty caring for self at home in addition to constipation which is basically the primary reason why she was accepted for transfer. She was noted to have Leukocytosis of 16.1 K with Left-shift of 1% present on admission with non-contrasted CT of the RLE revealing no evidence of acute infection in addition to an elevated D-dimer of 3.36 present on admission. She states she had multiple bowel movements after holding her opiates and drinking liquids. She was then admitted to the general medical floor under observation status for ongoing care for a stay that is expected to be less than 2 midnights. [facility] Medical History Anemia PAF (paroxysmal atrial fibrillation) Essential hypertension Type 2 diabetes mellitus with hyperglycemia Respiratory insufficiency Pneumonia Chronic kidney disease (CKD) Smoking greater than 30 pack years Bronchiectasis Alcohol abuse Kidney disease Atrial fibrillation Hypertension TIA (transient ischemic attack) Primary osteoarthritis, right shoulder Right shoulder pain Wears glasses Wears dentures Alcohol use Diabetes Ambulates with cane Arthritis Restless legs Vaso vagal episode Dietary restriction COPD (chronic obstructive pulmonary disease) Former smoker Leg cramps PVD (peripheral vascular disease) History of edema History of stress test Cardiology follow-up encounter Neuropathy Iron deficiency History of TIA (transient ischemic attack) GERD (gastroesophageal reflux disease) GI bleed Depression Anxiety CKD (chronic kidney disease) Diabetes mellitus type II, controlled Hyperlipidemia Stage 3 severe COPD by GOLD classification Essential (primary) hypertension PAD (peripheral artery disease) Preoperative cardiovascular examination Nicotine dependence Abnormal electrocardiogram Bilateral carotid bruits Long-term use of high-risk medication COPD (chronic obstructive pulmonary disease) COPD with acute exacerbation Dyspnea Home Medications ?Medication ?Instructions ?Recorded ?Last Taken ?Type ascorbic acid (vitamin C) 500 mg 500 mg PO DAILY 11/28/22 08/03/24 History capsule clopidogrel 75 mg tablet 75 mg PO DAILY 04/30/23 08/03/24 History glipizide 2.5 mg tablet, extended 2.5 mg PO DAILY 09/19/23 08/03/24 History release 24 hr pantoprazole 40 mg tablet,delayed 40 mg PO DAILY 09/19/23 08/03/24 History release clonidine HCl 0.2 mg tablet 0.2 mg PO QHS 03/18/24 08/03/24 History diltiazem HCl 120 mg 240 mg PO DAILY 03/18/24 08/03/24 History capsule,extended release 24 hr dulaglutide 1.5 mg/0.5 mL 1.5 mg subcut QWEEK 03/18/24 08/01/24 History subcutaneous pen injector (Trulicity) duloxetine 30 mg capsule,delayed 30 mg PO QHS 03/18/24 08/03/24 History release albuterol sulfate 90 mcg/actuation 2 inh inhalation Q4H PRN COPD #18 07/06/24 Unknown Rx aerosol inhaler grams lisinopril 5 mg tablet 5 mg PO DAILY 07/14/24 08/03/24 History albuterol sulfate 2.5 mg/3 mL 2.5 mg (3 mL) inhalation Q4H PRN 07/30/24 Unknown Rx (0.083 %) solution for nebulization PRN COPD #90 mL spacer #1 ea 08/03/24 Unknown Rx inhalational spacing device #1 ea 08/13/24 Unknown History (Aerochamber Plus Flow-Vu) ipratropium bromide 42 mcg (0.06 2 spray intranasal TID #15 mL 08/13/24 Unknown Rx %) nasal spray ipratropium 0.5 mg-albuterol 3 mg 3 ml inhalation Q4H PRN shortness 08/23/24 Unknown Rx (2.5 mg base)/3 mL nebulization of breath or wheezing #180 mL soln atorvastatin 40 mg tablet 40 mg PO QHS 08/26/24 Unknown History budesonide 0.5 mg/2 mL suspension 0.5 mg inhalation Q12H 08/26/24 Unknown History for nebulization calcium 500 mg tablet 1,000 mg PO DAILY 08/26/24 Unknown History cholecalciferol (vitamin D3) 125 125 mcg PO DAILY 08/26/24 Unknown History mcg (5,000 unit) tablet (Vitamin D3) coQ10 (ubiquinol) 100 mg capsule 100 mg PO DAILY 08/26/24 Unknown History (CoQmax Ubiquinol) magnesium 250 mg tablet 250 mg PO QHS 08/26/24 Unknown History trazodone 50 mg tablet 50 mg PO DAILY 08/26/24 Unknown History vitamin B12 0.5 mg-folic acid 1 mg 1 tab PO DAILY 08/26/24 Unknown History tablet (Foltrate) ferrous gluconate 324 mg (38 mg 324 mg PO BID #60 tabs 08/30/24 08/03/24 Rx iron) tablet nystatin 100,000 unit/mL oral 5 ml mucous membrane TID #250 mL 01/27/25 Unknown Rx suspension Allergy/AdvReac Type Severity Reaction Status Date / Time ferrous sulfate Allergy Intermediate Other Verified 08/26/24 01:09 iron AdvReac Severe Low blood Verified 09/02/24 11:03 pressure, anaphylaxis gabapentin AdvReac Intermediate Pedal edema Verified 08/26/24 01:09 pregabalin (From Lyrica) AdvReac Intermediate Pedal edema Verified 08/26/24 01:09 codeine AdvReac Nausea Verified 08/26/24 01:09 Tetracyclines AdvReac Nausea Verified 08/26/24 01:09 Family History Sister CAD (coronary artery disease) Brother CAD (coronary artery disease) Mother Cancer Father , at age 70 secondary to GSW while hunting. No problems noted. Surgical History H/O shoulder surgery Hx of tubal ligation Hx of colonoscopy History of esophagogastroduodenoscopy (EGD) Right lower extremity angioplasty H/O foot surgery History of appendectomy History of total abdominal hysterectomy H/O tubal ligation H/O: hysterectomy H/O foot surgery History of appendectomy Social History household members: none Smoking Status: Former smoker quit date: 07/28/15 second hand exposure: Yes alcohol intake: never substance use type: does not use ROS ROS Narrative Review of Systems: Constitutional: Patient denies fever or chills. Eyes: Patient denies change in vision or discharge from eyes. ENT: Patient denies runny nose, sore throat or ear pain. Resp: Patient denies shortness of breath or cough. CV: Patient denies chest pain, palpitations, heart racing or lower extremity edema. GI: Patient admits to generalized, cramping abdominal pain typical of her previous bouts of constipation as per HPI. She denies nausea, vomiting or diarrhea. : Patient denies dysuria or hematuria. MSK: Patient admits to generalized weakness but she denies arthralgias or myalgias. Skin: Patient has sutures still in place after her recent laceration ~2 weeks ago. Psych: Patient denies symptoms of uncontrolled depression or anxiety. Neuro: Patient denies headache, paresthesias or focal neurologic deficits. Allergy: Patient denies lip swelling, tongue swelling or urticaria. Hematology: Patient denies easy bleeding or easy bruisability. Endocrinology: Patient denies polyuria, polydipsia, polyphagia or heat/cold intolerance. 14 point ROS otherwise negative except for positives noted above in HPI. Physical Exam Const alert, oriented x3, no apparent distress, average body habitus and healthy appearing General Appearance: cooperative HEENT normocephalic, head/scalp atraumatic, hearing grossly normal bilaterally and moist oral mucous membranes Eyes PERRL, EOMs intact bilaterally and conjunctivae normal Neck no lymphadenopathy, supple and no JVD Resp normal respiratory effort, no retractions, no use of accessory muscles and clear to auscultation bilaterally Cardio regular rate and regular rhythm GI normal to inspection, nondistended, normoactive bowel sounds, soft to palpation, non-tender and non-distended Extremity Extremity Narrative: Patient has sutures present in her Right lower extremity with no signs of infection. Skin Skin Narrative: Patient has no evidence of rash, abscess, wounds or jaundice. Neuro oriented x3, CN's II-XII intact bilaterally, moves all extremities and no focal motor deficits Sensorium / Orientation: awake, alert, oriented to person, oriented to place and oriented to time Speech: speech normal Psych affect normal Results Medical Records Data Attestation: I reviewed the patient's medical records Lab / Micro Data Attestation: I reviewed the patient's lab results. 02/09/25 03:48 02/09/25 03:48 Imaging [facility] Imaging Services [address] [place] [address] [id number] Extremity Lower without Contra MR#: [id number] Acct: [id number] Name: ANSON CAPPS Rep #: [id number] : 1940 F 84 From: Sacha Etienne MD PCP: LUCIO ObrienC Status: ADM SHRUTHI Study: Extremity Lower without Contra Date of Exam: 02/08/25 Exam# [id number] Ordering Dr: Kd Mcfarlane DO PROCEDURE: Right knee WITHOUT CONTRA 02/08/2025 REASON FOR EXAM: RECENT TRAUMA WITH 7 CM LACERATION. TECHNIQUE: EXTREMITY LOWER WITHOUT CONTRA Coronal and Sagittal reconstruction series were provided. One or more dose reduction techniques were used (e.g., Automated exposure control, adjustment of the mA and/or kV according to patient size, use of iterative reconstruction technique). RADIATION DOSE SUMMARY: CTDlvol: 15 mGy DLP: 561 mGycm COMPARISON: No FINDINGS: Posterior laceration. No foreign body. No muscle involvement. No fracture or dislocation. Small knee joint effusion. Chondrocalcinosis. Joint space narrowing and small osteophyte formation. CT/Extremity Lower without Contra IMPRESSION: Soft tissue injury. Reading Location: [place] [address] CC: JEAN Suresh; Dr. Kd Mcfarlane DO ~ Bottom Presser: Signed [facility] Imaging Services [address] [place] [id number] CTA Chest W/WO Contrast MR#: [id number] Acct: [id number] Name: ANSON CAPPS Rep #: [id number] : 1940 F 84 From: Sacha Etienne MD PCP: JEAN Obrien Status: ADM SHRUTHI Study: CTA Chest W/WO Contrast Date of Exam: 02/09/25 Exam# [id number] Ordering Dr: Kd Mcfarlane DO PROCEDURE: CTA CHEST W/WO CONTRAST 02/09/2025 REASON FOR EXAM: RULE OUT PE TECHNIQUE: CTA CHEST W/WO CONTRAST Multiplanar Sagittal and Coronal images were obtained. CONTRAST: Isovue 370 VOLUME: 100 mL One or more dose reduction techniques were used (e.g., Automated exposure control, adjustment of the mA and/or kV according to patient size, use of iterative reconstruction technique). RADIATION DOSE SUMMARY: CTDlvol: 24 mGy DLP: 351 mGycm COMPARISON: 08/26/2024 FINDINGS: Unremarkable base of neck and axilla. Normal esophagus. Normal heart size. Small pericardial effusion. No aortic dissection. Limited pulmonary arterial opacification, no pulmonary embolism. Series 2, image 125, 1 cm right breast cyst or nodule, stable. Recommend correlation with mammography or ultrasound. No acute chest wall findings. Replaced right shoulder joint. Possible gallbladder sludge. No acute upper abdominal findings. Central airways are patent. Bronchial wall thickening. Mild emphysema. On the left, lingular atelectasis. Interval resolution of left lower lobe consolidation. On the right, small apical scarring. Small medial upper and middle lobe scar/atelectasis. No consolidation, effusion or pneumothorax. CT/CTA Chest W/WO Contrast IMPRESSION: No embolism, dissection, or pneumonia. Reading Location: [place] CC: JEAN Suresh; DO Juliane Keenan Bottom Presser: Signed [facility] Imaging Services [address] [place] [address] Chest 1 View (Portable) MR#: [id number] Acct: [id number] Name: ANSON CAPPS Rep #: [id number] : 1940 F 84 From: Sacha Etienne MD PCP: Jeff Suresh NP-C Status: ADM SHRUTHI Study: Chest 1 View (Portable) Date of Exam: 02/08/25 Exam# [id number] Ordering Dr: Kd Mcfarlane DO PROCEDURE: CHEST 1 VIEW (PORTABLE) 02/08/2025 REASON FOR EXAM: EVALAUTE FOR PNA. TECHNIQUE: Frontal view of the chest. COMPARISON: 08/26/2024 FINDINGS: Replaced right shoulder joint. Normal heart size. Calcified aorta. Well inflated lungs. No consolidation, effusion or pneumothorax. Mild emphysema. RAD/Chest 1 View (Portable) IMPRESSION: No acute chest findings. Reading Location: [facility] CC: [employer]ER[employer] FABRICATOR-C Jeff Suresh; Dr. Kd Mcfarlane DO ~ Bottom Presser: Signed Assessment & Plan Assessment/Plan (1) Abdominal pain: QUALIFIERS: Abdominal location: generalized Qualified Code(s): R10.84 - Generalized abdominal pain (2) Constipation due to opioid therapy: (3) Generalized weakness: (4) History of fall within past 90 days: (5) Leukocytosis: QUALIFIERS: Leukocytosis type: bandemia Qualified Code(s): D72.825 - Bandemia (6) D-dimer, elevated: (7) Hypophosphatasia: PLAN: Plan 1. Abdominal Pain with suspected opiate-induced Constipation - Admit to general medical floor under observation status. Start bowel regimen with polyethylene glycol daily plus lactulose 20 g p.o. x 1. We will minimize opiate use to prevent further issues with constipation. Give acetaminophen as needed for [id number] (level 1-5/10) pain or fever. Sparingly give oxycodone as needed for severe (level 6-10/10) pain. 2. Generalized Weakness after recent fall from standing height on January 23, 2025 with patient landing on the front of her Right knee with ~7 cm laceration with no subsequent signs of infection with elevated D-dimer of 3.36 and Leukocytosis of 16.1K with Left-shift of 1% present on admission complicating #1 - PT/OT and Case Management to consult and treat on rounds in a.m. for further recommendations regarding subacute rehabilitation with help appreciated advance. Patient may be due for suture removal since it has been ~2 weeks since placement. Checked CT scan of the RLE which was negative for signs of acute infection. Check bilateral LE Doppler to evaluate for DVT with elevated D-dimer. Leukocytosis attributed to acute stress response with no signs of infection at this time. 3. Hypophosphatemia of 1.9 mg/dL present on admission compounding #1 & #2 - Give supplemental K-Phos 30 mmol IV once and then recheck level in the AM to ensure improvement. 4. Recent admission here from August 26, 2024 to September 03, 2024 for treatment of LLL pneumonia with leukocytosis of 12.6K and left-shift of 1.6% complicated by clinical evidence of AE COPD with respiratory insufficiency and dehydration with multiple angiodysplastic lesions causing ABLA requiring transfusion with stoppage of apixaban; s/p endoscopic treatment adding to the medical complexity of #1 - #3 - Noted with patient's family concerned about ongoing pattern progressively worsening generalized weakness and patient apparently unable to care for self at home. 5. Essential hypertension; on lisinopril and clonidine - Maintain home regimen as previous plus give as needed IV hydralazine for systolic blood pressure greater than 160 mmHg. 6. Hyperlipidemia; on atorvastatin - Resume statin and check lipid profile. 7. Former tobacco abuse (quit 2015); with subsequent COPD and bronchiectasis - Stable with no evidence of acute flare at this time. Continue scheduled and as needed inhalers and nebulizers. 8. Paroxysmal atrial fibrillation; on diltiazem but not on anticoagulation - Continue diltiazem as previous. Patient currently in NSR. 9. DM-2; of unknown control on glipizide and dulaglutide - ADA diet. Fingerstick blood sugar q. AC/HS plus lowest intensity SSI. Check hemoglobin A1c objectively evaluate quality of diabetic control. 10. Neuropathy; with intolerance to pregabalin and gabapentin (pedal edema) - Noted. 11. History of TIA (2017) - Noted with no signs of recurrence at this time. 12. PVD; on clopidogrel - Maintain clopidogrel as before. 13. Depression; on duloxetine and trazodone - Continue current regimen. 14. Remote history of EtOH abuse; quit more than ~10 years ago - Noted. 15. GERD; on pantoprazole - Maintain PPI. 16. OA; primarily of the Right shoulder - Stable. 17. DVT prophylaxis - Enoxaparin 40 mg sq daily. Total time: Approximately (but not less than) 70 minutes. Charges/Coding Visit Charges OBSV E&M: 81141 Observ/hosp same date L2
[2025-02-08 19:58] VITALS: BMI 25.9
[2025-02-08 20:00] VITALS: BP 175/85; PULSE 95; RESP 16; TEMP 37.2; O2SAT 96
[2025-02-08 20:33] LABS: Hematocrit 35.8 % (37-47); Hemoglobin 11.4 g/dL (12.0-15.0); Immature Granulocytes Count 0.160 X10^3/uL (0.0-0.0); Mean Corp Hgb Conc 31.8 g/dL (32-36); Mean Corpuscular Volume 93.2 fL (81-99); Mean Platelet Vol. 9.5 fl (6.2-12.0); NRBC Flagged by Analyzer 0 % (0-5); Platelet Count 397 K/mm3 (150-450); RBC Distribution Width CV 14.0 % (11.6-14.6); RBC Distribution Width SD 47.8 fl (35.1-43.9); Red Blood Count 3.84 M/mm3 (4.2-5.4); White Blood Count 16.1 K/mm3 (4.4-11.0)
[2025-02-08] MEDS: 0.9% Normal Saline (1000mL) 1,000 ML 100 ML IV (20:56)
--- NOTE | 2025-02-08 21:08 | CT_ITS ---
PROCEDURE: Right knee WITHOUT CONTRA 02/08/2025 REASON FOR EXAM: RECENT TRAUMA WITH 7 CM LACERATION. TECHNIQUE: EXTREMITY LOWER WITHOUT CONTRA Coronal and Sagittal reconstruction series were provided. One or more dose reduction techniques were used (e.g., Automated exposure control, adjustment of the mA and/or kV according to patient size, use of iterative reconstruction technique). RADIATION DOSE SUMMARY: CTDlvol: 15 mGy DLP: 561 mGycm COMPARISON: No FINDINGS: Posterior laceration. No foreign body. No muscle involvement. No fracture or dislocation. Small knee joint effusion. Chondrocalcinosis. Joint space narrowing and small osteophyte formation. CT/Extremity Lower without Contra IMPRESSION: Soft tissue injury. Reading Location: [place] [address]
[2025-02-08 21:22] LABS: AST(SGOT) 22 U/L (<=31); Alanine Aminotransfer ALT/SGPT 20 U/L (<=34); Albumin, Serum 3.4 g/dL (3.4-4.8); Alkaline Phosphatase 72 U/L (35-104); Anion Gap 12 (5-15); BUN 20 mg/dL (4-19); BUN/Creat Ratio 19.6 RATIO (10-20); Calcium,Total 8.6 mg/dL (7.6-11.0); Carbon Dioxide 20.3 mmol/L (21.0-32.0); Chloride 106 mmol/L (98-108); Estimated Creatinine Clearance 34.83 ml/min (50-250); Globulin 3.2 g/dL (2.2-4.2); Glucose 159 mg/dL (70-99); Magnesium 2.1 mg/dL (1.5-2.2); Potassium 4.6 mmol/L (3.3-5.1)
[2025-02-08 21:42] LABS: FOLATES,SERUM (FOLIC ACID) 19.20 ng/mL (4.60-34.80)
[2025-02-08 22:24] LABS: D-Dimer Quantitative (DVT/PE) 3.36 FEU/ug/m (0.27-0.49)
--- OUTSIDE RECORDS SUMMARY | 2025-02-08 22:30 | XMS RPT_ITS | CCD ---
Author Organization [facility] CliniSynh Care Team Providers Care Strap Stitcher Name Role Phone Javier Steffi Faith Unavailable Unavailable Javier Steffi Faith Unavailable Unavailable Munoz FINANCE PROFESSOR, Cindy S Unavailable Jaqui Dukes Unavailable Unavailable Unavailable Primary Care Provider UnavailRaven MYERS, JAMIE Primary Care Physician [phone] KERWIN MYERS, JAMIE Primary Care Physician [phone] Jamie Schroeder Primary Care Provider [phone] Kerwin SHALE MINER, SHALE MINER-C Jamie Primary Care Provider [phone] Balcris SHALE MINER, SHALE MINER-C Jamie Referring Provider [phone] Dr. Ryan Hou Attending Provider [phone] FriendDr. Davis Other Provider [phone] MD Diana Love Attending Provider [phone] Dr. Alexy Abraham Attending Provider [phone] Kerwin SHALE MINER, SHALE MINER-C Jamie Primary Care Provider [phone] Kerwin SHALE MINER, SHALE MINER-C Jamie Referring Provider [phone] Dr. Ryan Hou Attending Provider [phone] MD Diana Love Attending Provider [phone] Dr. Brayan Dumont Attending Provider [phone] MD Diana Love Referring Provider [phone] MD Diana Love Other Provider [phone] VIRGIE CHIEF MEDICAL TECHNOLOGIST-FINANCE PROFESSOR, EMMY Matos Admitting UnavailAICHA Leger MD Attending Unavailable KERWIN CHIEF MEDICAL TECHNOLOGIST-JANNY, JAMIE Primary Care Unavailabl e KERWIN CHIEF MEDICAL TECHNOLOGIST-FINANCE PROFESSOR, JAMIE Consulting UnavailAICHA Landis MD Consulting Unavailable FISH CHIEF MEDICAL TECHNOLOGIST-FINANCE PROFESSOR, RADHA Consulting Unavailab ERIN Valentine MD Attending Unavailable BALTES CHIEF MEDICAL TECHNOLOGIST-FINANCE PROFESSOR, JAMIE Primary Care Unavailabl e BALTES CHIEF MEDICAL TECHNOLOGIST-FINANCE PROFESSOR, JAMIE Primary Care Unavailabl e BALTES CHIEF MEDICAL TECHNOLOGIST-FINANCE PROFESSOR, JAMIE Attending Unavailabl PEYMAN Gilliam MD Attending Unavailable BALTES CHIEF MEDICAL TECHNOLOGIST-FINANCE PROFESSOR, JAMIE Primary Care Unavailabl e BALTES CHIEF MEDICAL TECHNOLOGIST-FINANCE PROFESSOR, JAMIE Primary Care Unavailabl e BALTES CHIEF MEDICAL TECHNOLOGIST-FINANCE PROFESSOR, JAMIE Attending Unavailabl e BALTES CHIEF MEDICAL TECHNOLOGIST-FINANCE PROFESSOR, JAMIE Primary Care Unavailabl e ERIN MONTIEL MD Attending Unavailable BALTES CHIEF MEDICAL TECHNOLOGIST-FINANCE PROFESSOR, JAMIE Primary Care Unavailabl e ERIN MONTIEL MD Attending Unavailable BALTES CHIEF MEDICAL TECHNOLOGIST-FINANCE PROFESSOR, JAMIE Primary Care Unavailabl e BALTES CHIEF MEDICAL TECHNOLOGIST-FINANCE PROFESSOR, JAMIE Attending Unavailabl e BALTES CHIEF MEDICAL TECHNOLOGIST-FINANCE PROFESSOR, JAMIE Primary Care Unavailabl e BALTES CHIEF MEDICAL TECHNOLOGIST-FINANCE PROFESSOR, JAMIE Attending Unavailabl e BALTES CHIEF MEDICAL TECHNOLOGIST-FINANCE PROFESSOR, JAMIE Attending Unavailabl e BALTES CHIEF MEDICAL TECHNOLOGIST-FINANCE PROFESSOR, JAMIE Primary Care Unavailabl e PEYMAN MENA Admitting Unavailable PEYMAN MENA Attending Unavailable CARLA CHRISTIAN Primary Care Unavailable ROBERT SIMMONS Attending Unavailable JAMIE SCHROEDER M Primary Care Unavailable Diana Love Referring Unavailable Diana Love Consulting Unavailable Diana Love Attending Unavailable Baltes SHALE MINER, Jamie Primary Care Unavailable Nae Brand Attending Unavailable Baltes SHALE MINER, Jamie Referring Unavailable Baltes SHALE MINER, Jamie Primary Care Unavailable Kd Mcfarlane Consulting Unavailable Kd Mcfarlane Admitting Unavailable Nai Douglas Attending Unavailable Baltes SHALE MINER, Jamie Primary Care Unavailable Melissa England Consulting Unavailable Rose Worrell Consulting Unavailable Misael, Nai Clara Consulting Unavailable Nae Brand Referring Unavailable Nae Brand Attending Unavailable Kerwin SHALE MINER, Jamie Primary Care Unavailable Alonso Williamson Attending Unavailable Kd Mcfarlane Admitting Unavailable Kd Mcfarlane Consulting Unavailable Baltes SHALE MINER, Jamie Primary Care Unavailable Melissa England Consulting Unavailable Rose Worrell Consulting Unavailable Misael, Nai Clara Consulting Unavailable Loida Luu Attending Unavailable Alonso Williamson Admitting Unavailable Alonso Williamson Consulting Unavailable Baltes SHALE MINER, Jamie Primary Care Unavailable Kd Caldera Attending Unavailable Bertha Da Silva Admitting Unavailable Bertha Da Silva Consulting Unavailable Baltes SHALE MINER, Jamie Primary Care Unavailable Friend, Ryan Attending Unavailable Kd Caldera Referring Unavailable Kd Caldera Consulting Unavailable Baltes SHALE MINER, Jamie Primary Care Unavailable Flakito Chapman Attending Unavailable Alonso Williamson Consulting Unavailable Alonso Williamson Attending Unavailable Baltes SHALE MINER, Jamie Primary Care Unavailable Alonso Williamson Admitting Unavailable Loida Luu Consulting Unavailable Rose Worrell Attending Unavailable Kd Mcfarlane Attending Unavailable Alexander SHALE MINER, Cindy Attending Unavailable Baltes SHALE MINER, Jamie Primary Care Unavailable Baltes SHALE MINER, Jamie Referring Unavailable May Choi Attending Unavailable Baltes SHALE MINER, Jamie Referring Unavailable Baltes SHALE MINER, Jamie Primary Care Unavailable Nai Douglas Referring Unavailable Friend, Ryan Attending Unavailable Alonso Williamson Attending Unavailable Alonso Williamson Consulting Unavailable Nae Brand Referring Unavailable Baltes SHALE MINER, Jamie Primary Care Unavailable Nae Brand Attending Unavailable Baltes SHALE MINER, Jamie Primary Care Unavailable Friend, Ryan Attending Unavailable Mollison, Diana Referring Unavailable Brayan Dumont Attending Unavailabl e Baltes SHALE MINER, Jamie Primary Care Unavailable Baltes SHALE MINER, Jamie Primary Care Unavailable Nae Brand Attending Unavailable Baltes SHALE MINER, Jamie Referring Unavailable Baltes SHALE MINER, Jamie Primary Care Unavailable Friend, Ryan Attending Unavailable Baltes SHALE MINER, Jamie Referring Unavailable Mollison, Diana Attending Unavailable Baltes SHALE MINER, Jamie Referring Unavailable Baltes SHALE MINER, Jamie Primary Care Unavailable Vernon Gillespie Attending Unavailable Baltes SHALE MINER, Jamie Primary Care Unavailable Baltes SHALE MINER, Jamie Primary Care Unavailable Friend, Ryan Attending Unavailable Friend, Ryan Referring Unavailable Kd Caldera Attending Unavailable Bertha Da Silva Admitting Unavailable Bertha Da Silva Consulting Unavailable Baltes SHALE MINER, Jamie Primary Care Unavailable Mollison, Diana Referring Unavailable Mollison, Diana Attending Unavailable Baltes SHALE MINER, Jamie Primary Care Unavailable Mollison, Diana Referring Unavailable Baltes SHALE MINER, Jamie Primary Care Unavailable Mollison, Diana Attending Unavailable Mollison, Diana Attending Unavailable Baltes SHALE MINER, Jamie Referring Unavailable Baltes SHALE MINER, Jamie Primary Care Unavailable Leigh, [place] Attending Unavailable Baltes SHALE MINER, Jamie Primary Care Unavailable Mollison, Diana Attending Unavailable Baltes SHALE MINER, Jamie Primary Care Unavailable Baltes SHALE MINER, Jamie Referring Unavailable Leigh, Alexy Attending Unavailable Baltes SHALE MINER, Jamie Primary Care Unavailable Mollison, Diana Attending Unavailable Baltes SHALE MINER, Jamie Primary Care Unavailable Baltes SHALE MINER, Jamie Referring Unavailable Baltes SHALE MINER, Jamie Primary Care Unavailable Alexy Abraham Attending Unavailable Baltes SHALE MINER, Jamie Primary Care Unavailable Cindy Munoz NP Attending Unavailable Baltes SHALE MINER, Jamie Referring Unavailable FriendRyan Attending Unavailable Kd Caldera Referring Unavailable Baltes SHALE MINER, Jamie Primary Care Unavailable Friend, Ryan Attending Unavailable Baltes SHALE MINER, Jamie Primary Care Unavailable Baltes SHALE MINER, Jamie Referring Unavailable Diana Love Attending Unavailable Baltes SHALE MINER, Jamie Primary Care Unavailable Baltes SHALE MINER, Jamie Referring Unavailable Baltes SHALE MINER, Jamie Primary Care Unavailable Nae Brand Attending Unavailable Baltes SHALE MINER, Jamie Referring Unavailable Baltes SHALE MINER, Jamie Primary Care Unavailable RufenerNae M Attending Unavailable Baltes SHALE MINER, Jamie Referring Unavailable Baltes SHALE MINER, Jaime Primary Care Unavailable RuNae capone M Attending Unavailable RufenerBravoen M Referring Unavailable Baltes SHALE MINER, Jamie Primary Care Unavailable RufenNea lyons M Attending Unavailable Rufener Nae M Referring Unavailable Baltes SHALE MINER, Jamie Primary Care Unavailable Baltes SHALE MINER, Jamie Referring Unavailable Baltes SHALE MINER, Jamie Attending Unavailable Bertha Da Silva Attending Unavailable Loida Luu Attending Unavailable BALTES CHIEF MEDICAL TECHNOLOGIST-FINANCE PROFESSOR, JAMIE Primary Care Unavailabl PEYMAN Gilliam MD Attending Unavailable BALTES CHIEF MEDICAL TECHNOLOGIST-FINANCE PROFESSOR, JAMIE Primary Care Unavailabl e DIANA GOMES DO Attending Unavailable BALTES CHIEF MEDICAL TECHNOLOGIST-FINANCE PROFESSOR, JAMIE Primary Care Unavailabl e BALTES CHIEF MEDICAL TECHNOLOGIST-FINANCE PROFESSOR, JAMIE Attending Unavailabl e BALTES CHIEF MEDICAL TECHNOLOGIST-FINANCE PROFESSOR, JAMIE Primary Care Unavailabl e BALTES CHIEF MEDICAL TECHNOLOGIST-FINANCE PROFESSOR, JAMIE Attending Unavailabl e BALTES CHIEF MEDICAL TECHNOLOGIST-FINANCE PROFESSOR, JAMIE Primary Care Unavailabl e TRINA ECHEVERRIA, PEYMAN Moore Attending Unavailable BALTES, JAMIE Primary Care Unavailable NAGINENI, BALDOMERO Attending Unavailable ALISHAINENI, BALDOMERO Admitting Unavailable GILBERTO HARLEY Unavailable BALTES, JAMIE Primary Care Unavailable DARA CORREIA Attending Unavailable BALTES, JAMIE Primary Care Unavailable Erik BISOHP Attending Unavailable Allergies Allergy Classification Reported Allergen(s) Allergy Type Date of Onset Reaction(s) Facility (10 sources) gabapentin; Translations: [GABAPENTIN] Drug Allergy 06-19-20 15 foot swelling [facility] Work Phone: (3 sources) iron Drug Allergy 06-02-20 17 [facility] Work Phone: (20 sources) pregabalin; Translations: [LYRICA] Drug Allergy 12-26-19 16 pedal edema, Swelling [facility] Work Phone: (20 sources) tetracycline; Translations: [Tetracycline] Drug Allergy 06-19-20 15 Nausea [facility] Work Phone: (20 sources) gabapentin; Translations: [gabapentin] Drug Allergy 05-01-20 21 Pedal edema, Swelling [facility] (20 sources) Codeine; Translations: [codeine] Drug Allergy 06-19-20 15 Nausea, Dizziness [facility] (7 sources) pregabalin; Translations: [PREGABALIN] Drug Allergy 03-17-20 19 Pedal edema [facility] (6 sources) Tetracyclines; Translations: [Tetracyclines] Propensity to adverse reactions 05-01-20 21 Nausea [facility] (2 sources) IV iron infusion Propensity to adverse reactions 05-01-20 21 Hypotension (oral iron is ok) [facility] (20 sources) Acetaminophen / oxyCODONE; Translations: [acetaminophen-ox ycodone] [facility] ferrous sulfate; Translations: [ferrous sulfate] Drug Allergy 11-29-19 23 Other, IV iron [facility] Comment on above: IV iron (2 sources) Acetaminophen Drug Allergy 11-29-19 23 Itching [facility] (12 sources) oxyCODONE Drug Allergy 11-29-19 23 Itching [facility] (15 sources) amLODIPine; Translations: [AMLODIPINE] Drug Allergy 06-19-20 15 Swelling [facility] (17 sources) Iron Drug Allergy 04-28-20 19 Low blood pressure [facility] (14 sources) Pregabalin Allergy to substance 12-26-19 16 Unknown [facility] (14 sources) Tetracycline (class of antibiotic) Drug Intolerance 06-19-20 15 [facility] (1 source) Acetaminophen Drug Allergy 09-22-19 24 [facility] (1 source) Codeine Drug Allergy 08-26-19 25 [facility] (1 source) ferrous sulfate Drug Allergy 08-26-19 25 [facility] (1 source) gabapentin Drug Allergy 08-26-19 [facility] (1 source) Iron Drug Allergy 09-02-19 [facility] (1 source) oxyCODONE Drug Allergy 09-22-19 [facility] (1 source) pregabalin Drug Allergy 08-26-19 [facility] Medications Current Medications Medication Drug Class(es) Dates Sig (Normalized) Sig (Original) acetaminophen 500 mg oral tablet (20 sources) Start: 02-07-2025 End: 02-17-2025 take 2 tablets by mouth every six hours as needed for pain acetaminophen (Tylenol) 500 MG tablet Take 2 tablets (1,000 mg) by mouth every 6 hours as needed for moderate pain (4-6) for up to 10 days. 30 tablet 02/07/2025 02/17/2025 Active Start: 02-06-2025 End: 02-08-2025 take 1 tablet by mouth every six hours as needed for pain and fever and pain and pain and headache acetaminophen (Tylenol) tablet 1,000 mg Start: 02-01-2025 End: 02-06-2025 take 1 tablet by mouth every six hours as needed for pain and fever and pain and pain and headache 650 mg, Oral, Every 6 hours PRN, mild pain (1-3), fever, moderate pain (4-6), severe pain (7-10), headaches, For temp greater than 100.4 F (38 C), Starting on Fri02/04/25 at 1955, Maximum dose of acetaminophen is 4000 mg from all sources in 24 hours. Start: 05-12-2023 End: 05-14-2023 take 1 tablet by mouth every six hours as needed for pain and fever acetaminophen (Tylenol) tablet 650 mg Start: 10-26-2020 acetaminophen 500 mg oral tablet Dose : 1,000 mg = 2 tab(s), Oral, TID, PRN pain or fever, 0 Refill(s) Start Date: 10/26/20 Status: Ordered Repeat number: 1 acetaminophen 325 mg / oxyCODONE hydrochloride 5 mg oral tablet (2 sources) Opioid Agonist Start: 10-29-2023 take 1 tablet by mouth every four hours Oxycodone-Acetaminophen (Endocet) 5-325 mg tablet Active 1 TABLET PO Q4H 30 October 29, 2023 amoxicillin 500 mg oral capsule (6 sources) Penicillin-class Antibacterial Start: 05-14-2023 End: 05-21-2023 take 2 capsules by mouth in the morning amoxicillin (Amoxil) 500 MG capsule Take 2 capsules (1,000 mg) by mouth in the morning and 2 capsules (1,000 mg) before bedtime. Do all this for 7 days. 28 capsule 0 05/14/2023 05/21/2023 Active apixaban 2.5 mg oral tablet (8 sources) Factor Xa Inhibitor Start: 06-18-2024 Eliquis 2.5 mg oral tablet Dose : 2.5 mg = 1 tab(s), Oral, BID, # 180 tab(s), 3 Refill(s), Pharmacy: [facility], 152.4, cm, 05/19/24 13:44:00 EDT, Height, 58.7, kg, 05/19/24 13:39:00 EDT, Dosing Weight Start Date: 06/18/24 Status: Ordered Quantity: 180.0 Unit: tab(s) Repeat number: 4 Start: 03-23-2024 Eliquis 2.5 mg oral tablet Dose : 2.5 mg = 1 tab(s), Oral, BID, # 200 tab(s), 0 Refill(s), Pharmacy: [facility], 152.4, cm, 03/11/24 11:12:00 EDT, Height, 58.1, kg, 03/11/24 11:12:00 EDT, Dosing Weight Start Date: 03/23/24 Status: Ordered Start: 12-25-2023 Eliquis 2.5 mg oral tablet Dose : 2.5 mg = 1 tab(s), Oral, BID, # 200 tab(s), 0 Refill(s), Pharmacy: [facility], 152.4, cm, 12/10/23 14:12:00 EDT, Height, 56.8, kg, 12/10/23 14:12:00 EDT, Dosing Weight Start Date: 12/25/23 Status: Ordered Start: 12-05-2023 Eliquis 2.5 mg oral tablet Dose : 2.5 mg = 1 tab(s), Oral, BID, # 60 tab(s), 0 Refill(s), [facility]: [id number], 152.4, cm, 12/01/23 20:54:00 EDT, Height, 56.3, kg, 12/01/23 20:54:00 EDT, Dosing Weight Start Date: 12/05/23 Status: Ordered ascorbic acid 500 mg oral capsule (20 sources) Start: 11-28-2022 take 500 mg by mouth once daily Ascorbic Acid (Vitamin C) Active 500 MG PO DAILY November 28, 2022 12:00am Start: 11-28-2022 Ascorbic Acid (Vitamin C) Active MG PO November 28, 2022 12:00am Start: 04-25-2020 take 1 dose by mouth once candice y Vitamin C Dose : 500 mg =, Oral, qDay, 0 Refill(s) Start Date: 04/25/20 Status: Ordered Repeat number: 1 Start: 05-24-2016 VITAMIN C 100 MG CHEW one tablet daily ASCORBIC ACID [id number] Shantel Singh LPN atorvastatin 10 mg oral tablet (20 sources) HMG-CoA Reductase Inhibitor Start: 02-01-2025 End: 02-07-2026 take 1 tablet by mouth once daily atorvastatin (Lipitor) 10 MG tablet Take 1 tablet (10 mg) by mouth Nightly. 30 tablet 11 02/07/2025 02/07/2026 Active Start: 02-13-2022 End: 02-07-2025 atorvastatin (Lipitor) 40 MG tablet Take by mouth. 02/13/2022 02/07/2025 Discontinued (Stop taking at discharge) benzonatate 200 mg oral capsule (1 source) Non-narcotic Antitussive Start: 08-24-2024 benzonatate 200 mg oral capsule Dose : 200 mg = 1 cap(s), Oral, TID, PRN as needed for cough, 0 Refill(s) Start Date: 08/24/24 Status: Ordered Repeat number: 1 budesonide 0.125 mg/ml inhalation suspension (1 source) Corticosteroid Start: 08-13-2024 take 1 dose by inhalation twice daily budesonide 0.25 mg/2 mL inhalation suspension Dose : 0.25 mg = 2 mL, Inhalation, BID, unsure of strength and how often to use, getting from pharmacy today, 0 Refill(s) Start Date: 08/13/24 Status: Ordered Repeat number: 1 calcium carbonate 500 mg chewable tablet (9 sources) Start: 09-10-2023 calcium carbonate 500 mg (200 mg elemental calcium) oral tablet, chewable Dose : 500 mg = 1 tab(s), Chewed, BID, # 180 tab(s), 3 Refill(s), [id number], Osteopenia, 152.4, cm, 09/03/23 9:58:00 EST, Height, kg, 09/03/23 9:58:00 EST, Dosing Weight Start Date: 09/10/23 Status: Ordered Quantity: 180.0 Unit: tab(s) Repeat number: 4 Indication: Other specified disorders of bone density and structure, unspecified site cefdinir 300 mg oral capsule (2 sources) Cephalosporin Antibacterial Start: 12-05-2023 End: 12-12-2023 cefdinir 300 mg oral capsule Dose : 300 mg = 1 cap(s), Oral, q12h, X 7 day(s), # 14 cap(s), 0 Refill(s), 12/12/23 4:42:00 PM EDT, Pharmacy: [facility] #[id number], 152.4, cm, 12/01/23 20:54:00 EDT, Height, 56.3, kg, 12/01/23 20:54:00 EDT, Dosing Weight Start Date: 12/05/23 Stop Date: 12/12/23 Status: Ordered cetirizine hydrochloride 10 mg oral tablet (1 source) Histamine-1 Receptor Antagonist Start: 08-24-2024 Zyrtec 10 mg oral tablet Dose : 10 mg = 1 tab(s), Oral, qDay, PRN allergies, 0 Refill(s) Start Date: 08/24/24 Status: Ordered Repeat number: 1 cholecalciferol 0.01 mg oral capsule (18 sources) Vitamin D Start: 11-28-2022 cholecalciferol (Vitamin D-3) 10 MCG (400 UNIT) capsule Take by mouth. 11/28/2022 Active clonazePAM 0.5 mg oral tablet (15 sources) Benzodiazepine Start: 12-21-2015 End: 05-14-2023 take 0.5 mg by mouth once daily as needed Clonazepam Active 0.5 MG PO DAILY NEEDED March 24, 2016 11:00pm Cranberry preparation (1 source) Non-Standardized Food Allergenic Extract, Non-Standardized Plant Allergenic Extract Start: 08-24-2024 take 1 capsule by mouth once daily cranberry oral capsule Dose = 1 cap(s), Oral, Daily, 0 Refill(s) Start Date: 08/24/24 Status: Ordered Repeat number: 1 cyclobenzaprine hydrochloride 5 mg oral tablet (1 source) Muscle Relaxant Start: 01-28-2024 End: 02-07-2024 cyclobenzaprine 5 mg oral tablet Dose : 5 mg = 1 tab(s), Oral, qHS, PRN Muscle spasm, X 10 day(s), # 10 tab(s), 0 Refill(s), 02/07/24 11:39:00 AM EDT, [facility]acy: [facility] #[id number], Lumbar back pain Sacral pain, 152.4, cm, 01/28/24 11:10:00 EDT, Height, kg, 01/28/24 11:10:00 EDT, Dosing Weight Start Date: 01/28/24 Stop Date: 02/07/24 Status: Ordered DME (4 sources) Start: 09-19-2022 DME See Instructions, Chest wall oscillation vest, # 1 EA, 0 Refill(s), 54.4 Start Date: 09/19/22 Status: Ordered DME MISCellaneous (10 sources) Start: 04-16-2023 DME MISCellaneous See Instructions, True Metrix glucometer 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, # 1 EA, 0 Refill(s), Pharmacy: [facility] #[id number], 152.4, cm, 01/09/23 10:56:00 EDT, Height, 51.6, kg, 01/09/23 10:56:00 EDT, Dosing Weight Start Date: 04/16/23 Status: Ordered Quantity: 1.0 Unit: EA Repeat number: 1 Start: 04-16-2023 DME MISCellane ous See Instructions, True Metrix glucometer 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 60 tablet 11 02/08/2025 02/08/2026 Active dulaglutide (Trulicity) 3 MG/0.5ML solution pen-injector (8 sources) dulaglutide (Bryce licity) 3 MG/0.5ML solution pen-injector Inject under the skin 1 (one) time per week. 0 Active dulaglutide (Bryce licity) 3 MG/0.5ML solution pen-injector Inject under the skin 1 (one) time per week. 0 Suspended dulaglutide (Trulicity) 3 MG/0.5ML solution pen-injector (6 sources) dulaglutide (Trulicity) 3 MG/0.5ML solution pen-injector Inject under the skin 1 (one) time per week. Active ferrous gluconate 324 mg oral tablet (20 sources) Start: 2 ferrous gluconate 324 mg (38 mg elemental iron) oral tablet Dose : 324 mg = 1 tab(s), Oral, qDay, # 90 tab(s), 3 Refill(s), Pharmacy: [facility], Iron deficiency, 152.4, cm, 03/11/24 11:12:00 EDT, Height, kg, 03/11/24 11:12:00 EDT, Dosing Weight Start Date: 03/23/24 Status: Ordered Quantity: 90.0 Unit: tab(s) Repeat number: 4 Indication: Iron deficiency fluticasone / salmeterol (20 sources) Corticosteroid, beta2-Adrenergic Agonist Start: 4 take 1 dose by inhalation twice daily Advair Diskus 250 mcg-50 mcg inhalation powder Dose = 1 puff(s), Inhalation, BID, EA=1 Diskus, # 3 EA, 3 Refill(s), Pharmacy: [facility], 152.4, cm, 03/11/24 11:12:00 EDT, Height, kg, 03/11/24 11:12:00 EDT, Dosing Weight Start Date: 03/23/24 Status: Ordered Quantity: 3.0 Unit: EA Repeat number: 4 Start: 03-23-2024 take 1 dose by inhal ation twice daily Advair Diskus 250 mcg-50 mcg inhalation powder Dose = 1 puff(s), Inhalation, BID, EA=1 Diskus, # 3 EA, 3 Refill(s), Pharmacy: [facility], 152.4, cm, 03/11/24 11:12:00 EDT, Height, kg, 03/11/24 11:12:00 EDT, Dosing Weight Start Date: 03/23/24 Status: Ordered Start: 03-20-2023 take 1 dose by inhal ation twice daily Advair Diskus 250 mcg-50 mcg inhalation powder Dose = 1 puff(s), Inhalation, BID, EA=1 Diskus, # 3 EA, 3 Refill(s), Pharmacy: [facility], 152.4, cm, 01/09/23 10:56:00 EDT, Height, kg, 01/09/23 10:56:00 EDT, Dosing Weight Start Date: 03/20/23 Status: Ordered Start: 03-19-2022 take 1 puff(s) by mo ut twice daily Advair Diskus 250 mcg-50 mcg inhalation powder See Instructions, INHALE 1 PUFF ORALLY TWICE DAILY, # 60 EA, 11 Refill(s), Pharmacy: [facility], 152.4, cm, 02/22/22 11:40:00 EDT, Height, kg, 02/22/22 11:40:00 EDT, Dosing Weight Start Date: 03/19/22 Status: Ordered Start: 03-16-2021 take 1 puff(s) by mo ut twice daily Advair Diskus 250 mcg-50 mcg inhalation powder See Instructions, INHALE 1 PUFF ORALLY TWICE DAILY, # 60 EA, 11 Refill(s), Pharmacy: [facility], 151.13, cm, 10/26/20 9:57:00 EDT, Height, kg, 10/26/20 9:57:00 EDT, Dosing Weight Start Date: 8/20/21 Status: Ordered Start: 03-25-2016 take 1 puff(s) by in halation twice daily Fluticasone Propion-Salmeterol Active 1 PUFF INHALATION TWICE A DAY March 25, 2016 11:09am Start: 03-25-2016 take 1 puff(s) by in halation twice daily Fluticasone Propion-Salmeterol Active 1 PUFF INHALATION TWICE A DAY March 24, 2016 11:00pm Start: 03-25-2016 take 1 puff(s) by in halation twice daily Fluticasone Propion-Salmeterol Active 1 PUFF INHALATION TWICE A DAY March 25, 2016 12:00am Start: 12-21-2015 take 1 puff(s) by in halation twice daily ADVAIR DISKUS 250-50 MCG/DOSE AEPB INH 1 puff twice daily FLUTICASONE-SALMETEROL [id number] Cristóbal Felix Start: 12-21-2015 ADVAIR DISKUS 250-50 MCG/DOSE AEPB as directed FLUTICASONE-SALMETEROL [id number] Renetta Miner RN take 1 puff(s) by in halation every twelve hours fluticasone-salmeterol (ADVAIR) 100-50 MCG/DOSE diskus inhaler Inhale 1 puff into the lungs every 12 hours 0 Active glipiZIDE er 2.5 mg 24 hr extended release oral tablet (14 sources) Sulfonylurea Start: 06-18-2024 glipiZIDE 2.5 mg oral tablet, extended release Dose : 2.5 mg = 1 tab(s), Oral, qDay, # 100 tab(s), 3 Refill(s), Pharmacy: [facility], Diabetes mellitus, 152.4, cm, 05/19/24 13:44:00 EDT, Height, kg, 05/19/24 13:39:00 EDT, Dosing Weight Start Date: 06/18/24 Status: Ordered Quantity: 100.0 Unit: tab(s) Repeat number: 4 Indication: Type 2 diabetes mellitus without complications Start: 05-23-2023 End: 06-08-2024 glipiZIDE 2.5 mg oral tablet , extended release Dose : 2.5 mg = 1 tab(s), Oral, qDay, # 90 tab(s), 1 Refill(s), Pharmacy: [facility], Diabetes mellitus, 152.4, cm, 12/10/23 14:12:00 EDT, Height, kg, 12/10/23 14:12:00 EDT, Dosing Weight Start Date: 12/11/23 Stop Date: 06/08/24 Status: Ordered 12 hr guaiFENesin 600 mg extended release oral tablet (12 sources) Start: 12-05-2023 End: 12-12-2023 Mucinex 600 mg oral tablet, extended release Dose : 1,200 mg = 2 tab(s), Oral, BID, X 7 day(s), # 28 tab(s), 0 Refill(s), 12/12/23 6:04:00 PM EDT, Pharmacy: [facility] #[id number], 152.4, cm, 12/01/23 20:54:00 EDT, Height, kg, 12/01/23 20:54:00 EDT, Dosing Weight Start Date: 12/05/23 Stop Date: 12/12/23 Status: Ordered Start: 07-27-2018 End: 08-12-2019 take 1200 mg by mouth every twelve hours Guaifenesin Discontinued 1200 MG PO Q12H July 27, 2018 1:00am August 12, 2019 11:06am Start: 07-03-2017 End: 07-31-2018 take 1 tablet by mouth twice daily Guaifenesin Discontinued 400 MG PO Q4H July 03, 2017 1:00am July 31, 2018 11:46am 1 tab twice daily ipratropium bromide 0.021 mg/actuat metered dose nasal spray (2 sources) Anticholinergic Start: 08-13-2024 ipratropium 21 mcg/inh (0.03%) nasal spray 42 mcg Dose = 2 spray(s), Nasal, TID, unsure of strength, will get from pharmacy today, 0 Refill(s) Start Date: 08/13/24 Status: Ordered Repeat number: 1 ammonium lactate 120 mg/ml topical cream (20 sources) Start: 11-28-2022 Ammonium Lacta te Active 1 APPLIC TOPICAL TWICE A DAY November 28, 2022 12:00am Start: 02-23-2019 Lac-Hydrin 12% topical cream Apply 1 bony, Topical, BID, # 385 gram(s), 0 Refill(s), [facility]: [facility], Cream Start Date: 02/23/19 Status: Ordered Quantity: 385.0 Unit: g Repeat number: 1 Indication: Xerosis cutis LORazepam 0.5 mg oral tablet (1 source) Benzodiazepine Start: 10-30-2023 take 1 tablet by mouth three times daily Lorazepam (Ativan) 0.5 mg tablet Active 0.5 MG PO THREE TIMES A DAY 09 12October 30, 2023 12:00am pioglitazone 15 mg oral tablet (1 source) Peroxisome Proliferator Receptor alpha Agonist, Peroxisome Proliferator Receptor gamma Agonist, Thiazolidinedione Start: 05-20-2023 pioglitazone 15 mg oral tablet Dose : 15 mg = 1 tab(s), Oral, Daily, # 90 tab(s), 0 Refill(s), Pharmacy: [facility], Type 2 diabetes mellitus, 152.4, cm, 01/09/23 10:56:00 EDT, Height, kg, 05/20/23 9:15:00 EDT, Dosing Weight Start Date: 05/20/23 Status: Ordered traMADol hydrochloride 50 mg oral tablet (1 source) Opioid Agonist Start: 01-28-2024 End: 02-03-2024 traMADol 50 mg oral tablet Dose : 25 mg = 0.5 tab(s), Oral, q12h, PRN for pain, X 6 day(s), # 6 tab(s), 0 Refill(s), 02/03/24 11:38:00 AM EDT, [facility]acy: [facility] #[id number], Lumbar back pain Sacral pain, 152.4, cm, 01/28/24 11:10:00 EDT, Height, 56.6, kg, 01/28/24 11:10:00 EDT, Dosing Weight Start Date: 01/28/24 Stop Date: 02/03/24 Status: Ordered Trelegy Ellipta 200 mcg-62.5 mcg-25 mcg/inh inhalation powder (1 source) Start: 08-24-2024 take 1 dose by inhalation once daily Trelegy Ellipta 200 mcg-62.5 mcg-25 mcg/inh inhalation powder Dose = 1 puff(s), Inhalation, qDay, at the same time every day, 0 Refill(s) Start Date: 08/24/24 Status: Ordered Repeat number: 1 Vitamin B12 1000 mcg oral tablet (13 sources) Start: 01-09-2023 Vitamin B12 1000 mcg oral tablet Dose : 1,000 mcg = 1 tab(s), Oral, qDay, 0 Refill(s) Start Date: 01/09/23 Status: Ordered Repeat number: 1 Start: 01-09-2023 Vitamin B12 10 00 mcg oral tablet Dose : 1,000 mcg = 1 tab(s), Oral, qDay, 0 Refill(s) Start Date: 01/09/23 Status: Ordered Vitamin D3 (20 sources) Start: 04-25-2020 Vitamin D3 qDa y, unsure of IU, thinks 1000, 0 Refill(s) Start Date: 04/25/20 Status: Ordered Repeat number: 1 Start: 04-25-2020 Vitamin D3 qDa y, unsure of IU, thinks 1000, 0 Refill(s) Start Date: 04/25/20 Status: Ordered Completed/Discontinued Medications Medication Drug Class(es) Dates Sig (Normalized) Sig (Original) acetaminophen 500 mg / diphenhydrAMINE hydrochloride 25 mg oral tablet (7 sources) Histamine-1 Receptor Antagonist Start: 01-09-2023 End: 05-14-2023 diphenhydrAMINE-ac etaminophen (Tylenol PM) 25-500 MG per tablet Take by mouth. 0 01/09/2023 05/14/2023 Discontinued (Stop taking at discharge) Start: 01-09-2023 take 1 tablet by evelia th once daily at bedtime as needed for pain Tylenol PM Extra Strength oral tablet Dose = 1 tab(s), Oral, qHS, PRN as needed for sleep/pain, 0 Refill(s) Start Date: 01/09/23 Status: Ordered acetaminophen 325 mg / HYDROcodone bitartrate 5 mg oral tablet (9 sources) Opioid Agonist Start: 03-25-2016 End: 02-07-2022 take 1 tablet by mouth every six hours as needed Hydrocodone-Acetaminophen Discontinued 1 TABLET PO EVERY 6 HOURS NEEDED March 25, 2016 12:00am February 07, 2022 9:01am Start: 12-26-2015 HYDROCODONE-AC ETAMINOPHEN 5-325 MG TABS as directed as needed HYDROCODONE-ACETAMINOPHEN [id number] Brando Malhotra MD [id number] 200 actuat albuterol 0.09 mg/actuat metered dose inhaler (20 sources) beta2-Adrenergic Agonist Start: 02-01-2025 End: 02-08-2025 take 1 puff(s) by inhalation every four hours as needed for wheezing 1 puff, Inhalation, Every 4 hours PRN, wheezing, Starting on Fri02/01/25 at 1223, Administer using an inhaler spacer. Start: 05-12-2023 End: 05-14-2023 take 1 puff(s) by inhalation every four hours as needed for wheezing 1 puff, Inhalation, Every 4 hours PRN, wheezing, Starting on Fri05/12/23 at 1146 Start: 02-13-2022 End: 08-12-2022 take 2 puff(s) by inhalation every four hours as needed for wheezing Ventolin HFA MDI (90 mcg/inh) inhalation aerosol 2 puff(s), Inhalation, q4h, PRN as needed for wheezing, # 1 EA, 1 Refill(s), Pharmacy: [facility], COPD, 152.4, cm, 11/23/21 11:41:00 EDT, Height, kg, 11/23/21 11:41:00 EDT, Dosing Weight Start Date: 02/13/22 Stop Date: 08/12/22 Status: Ordered Quantity: 1.0 Unit: EA Repeat number: 2 Indication: Chronic obstructive pulmonary disease, unspecified Start: 02-13-2022 End: 08-12-2022 take 2 puff(s) by inhalation every four hours as needed for wheezing Ventolin HFA MDI (90 mcg/inh) inhalation aerosol 2 puff(s), Inhalation, q4h, PRN as needed for wheezing, # 1 EA, 1 Refill(s), [facility], COPD, 152.4, cm, 11/23/21 11:41:00 EDT, Height, kg, 11/23/21 11:41:00 EDT, Dosing Weight Start Date: 02/13/22 Stop Date: 08/12/22 Status: Ordered Start: 03-10-2019 End: 12-13-2022 take 1 puff(s) by inhalation every four hours as needed Albuterol Sulfate Discontinued 2 PUFF INHALATION EVERY 4 HOURS NEEDED April 24, 2020 12:49pm December 13, 2022 10:26am Start: 10-29-2017 End: 03-10-2019 take 1 puff(s) by inhalation every four hours as needed Albuterol Sulfate Discontinued 2 PUFF INHALATION EVERY 4 HOURS NEEDED October 29, 2017 1:02pm March 10, 2019 8:07am Start: 03-25-2016 End: 10-29-2017 take 1 puff(s) by inhalation every four hours as needed Albuterol Sulfate Discontinued 2 PUFF INHALATION EVERY 4 HOURS NEEDED March 25, 2016 12:00am October 29, 2017 1:03pm Start: 12-21-2015 take 2.5 mg by inhal ation every four hours as needed Albuterol Sulfate Active 2.5 MG INHALATION EVERY 4 HOURS NEEDED March 25, 2016 12:00am Start: 12-21-2015 ALBUTEROL SULF ATE 1.25 MG/3ML NEBU INNH q4h as needed ALBUTEROL SULFATE [id number] Cristóbal Felix Start: 12-21-2015 VENTOLIN HFA 1 08 (90 Base) MCG/ACT AERS 2 puffs every 4 hours ALBUTEROL SULFATE [id number] Renetta Miner RN albuterol 0.833 mg/ml / ipratropium bromide 0.167 mg/ml inhalation solution (20 sources) Anticholinergic, beta2-Adrenergic Agonist Start: 02-06-2025 End: 02-08-2025 3 mL, Nebulization, 2 times daily, First dose (after last modification) on Fri02/06/25 at 2000 Start: 02-03-2025 End: 02-06-2025 3 mL, Nebulization, 3 times daily, First dose (after last modification) on Fri02/03/25 at 0800 Start: 02-01-2025 End: 02-02-2025 3 mL, Nebulization, 4 times daily PRN, wheezing, shortness of breath, Starting on Fri02/01/25 at 2237 Start: 02-01-2025 End: 02-01-2025 3 mL, Nebulization, Once, On Fri02/01/25 at 0430, For 1 dose Start: 12-08-2023 End: 01-07-2024 take 1 dose by inhalation every four hours as needed for wheezing albuterol-ipratropium 2.5 mg-0.5 mg/3 mL inhalation solution Dose = 3 mL, Inhalation, q4h, PRN as needed for shortness of breath or wheezing, # 60 EA, 0 Refill(s), Pharmacy: [facility], 152.4, cm, 12/01/23 20:54:00 EDT, Height, kg, 12/01/23 20:54:00 EDT, Dosing Weight Start Date: 12/08/23 Stop Date: 01/07/24 Status: Ordered Quantity: 60.0 Unit: EA Repeat number: 1 Start: 05-12-2023 End: 05-14-2023 3 mL, Nebulization, 4 times daily PRN, wheezing, Starting on Fri05/12/23 at 1146 Start: 05-11-2023 End: 05-11-2023 ipratropium-albuterol (Duo-N eb) 0.5-2.5 mg/3 mL nebulizer solution 3 mL Start: 02-09-2016 take 1 dose by inhal ation every four hours as needed for wheezing DuoNeb Dose = 3 mL, Inhalation, q4h, PRN Wheezing, 0 Refill(s) Start Date: 02/09/16 Status: Ordered ipratropium-albu terol (Duo-Neb) 0.5-2.5 mg/3 mL nebulizer solution Inhale 3 mL in the morning and 3 mL at noon and 3 mL in the evening and 3 mL before bedtime. Active aspirin 81 mg oral tablet (16 sources) Nonsteroidal Anti-inflammatory Drug Start: 07-24-2016 take 1 tablet by mouth once daily ADULT ASPIRIN EC LOW STRENGTH 81 MG TBEC One tablet by mouth daily ASPIRIN [id number] Steffi Sabillon LPN Start: 07-24-2016 take 1 tablet by evelia th once daily ASPIRIN EC 81 MG TBEC One tablet by mouth daily ASPIRIN [id number] Mavis Izaguirre RN Start: 12-21-2015 End: 04-24-2016 take 1 tablet by mouth once daily ASPIRIN 81 MG TABS One tablet by mouth daily ASPIRIN [id number] Cristóbal Nir Felix azithromycin 250 mg oral tablet (20 sources) Macrolide Antimicrobial Start: 07-27-2018 End: 08-27-2018 take 250 mg by mouth once daily Azithromycin Discontinued 250 MG PO daily August 21, 2018 1:00am August 27, 2018 2:48pm Start: 08-04-2017 End: 10-21-2017 take 250 mg by mouth once daily Azithromycin Discontinued 250 MG PO daily October 10, 2017 12:00am October 21, 2017 10:16am Start: 07-03-2017 End: 10-21-2017 Azithromycin Discontinued 25 0 MG PO daily July 03, 2017 1:00am October 21, 2017 10:16am 2 tablets on day 1, then one tablet daily for 4 days Start: 04-24-2017 End: 06-02-2017 AZITHROMYCIN 250 MG TABS 2 t ablets by mouth today and then 1 tablet daily for the next 4 days AZITHROMYCIN [id number] Cindy Munoz CNP Start: 05-24-2016 End: 07-24-2016 AZITHROMYCIN 250 MG TABS 2 t ablets by mouth today and then 1 tablet daily for the next 4 days AZITHROMYCIN [id number] Steffi Sabillon LPN bisacodyl 10 mg rectal suppository (2 sources) Stimulant Laxative Start: 05-12-2023 End: 05-14-2023 take 10 mg rectal route every twenty-four hours as needed for constipation bisacodyl (Dulcolax) suppository 10 mg ceFAZolin (Ancef) 1,000 mg in sodium chloride 0.9 % 50 mL IVPB (2 sources) Start: 02-01-2025 End: 02-03-2025 take 1000 mg intravenously every eight hours 1,000 mg, IntraVENous, at 100 mL/hr, Administer over 30 Minutes, Every 8 hours, First dose on Fri02/01/25 at 1330, Mini-Bag Plus bag, Suspected Indication (Select all that apply): Skin and Soft Tissue Infection ceFAZolin (Ancef) 2,000 mg in sodium chloride 0.9 % 100 mL IVPB (2 sources) Start: 01-31-2025 End: 01-31-2025 2,000 mg, IntraVENous, at 200 mL/hr, Administer over 30 Minutes, Once, On Fri01/31/25 at 1705, For 1 dose, Suspected Indication (Select all that apply): Skin and Soft Tissue Infection cephalexin 500 mg oral capsule (6 sources) Cephalosporin Antibacterial Start: 01-24-2025 End: 01-24-2025 take 500 mg by mouth once 500 mg, Oral, Once, On Fri01/24/25 at 2045, For 1 dose, Suspected Indication (Select all that apply): Skin and Soft Tissue Infection Start: 01-24-2025 End: 02-07-2025 take 1 capsule by mouth four times daily cephalexin (Keflex) 500 MG capsule Take 1 capsule (500 mg) by mouth 4 times daily for 5 days. 20 capsule 01/24/2025 02/07/2025 Discontinued (Stop taking at discharge) cholecalciferol 9.52 unt/ml / glucose 357 mg/ml oral gel (2 sources) Vitamin D Start: 02-01-2025 End: 02-08-2025 15 g, Oral, As needed, low blood sugar, Starting on Fri02/01/25 at 2238, If blood glucose less than 50 mg/dL and patient ALERT and NOT NPO, give 2 tubes glucose gel. If blood glucose less than 70 mg/dL and patient ALERT and NOT NPO, give 1 tube glucose gel. Repeat blood glucose in 15 minutes. If blood glucose is less than 70 mg/dL, repeat treatment and recheck blood glucose in 15 minutes x2 and notify provider. cilostazol 100 mg oral tablet (8 sources) Phosphodiesterase 3 Inhibitor Start: 12-26-2015 End: 04-24-2016 take 1 tablet by mouth twice daily CILOSTAZOL 100 MG TABS One tablet by mouth twice daily CILOSTAZOL [id number] Cristóbal Felix cloNIDine hydrochloride 0.1 mg oral tablet (20 sources) Central alpha-2 Adrenergic Agonist Start: 02-07-2025 End: 02-08-2025 take 0.2 mg by mouth once daily 0.2 mg, Oral, Nightly, First dose (after last modification) on Fri02/07/25 at 2100 Start: 02-01-2025 End: 02-06-2025 take 0.2 mg by mouth once daily 0.2 mg, Oral, Daily, F irst dose on Fri02/01/25 at 1300 Start: 05-27-2024 End: 08-13-2025 cloNIDine 0.2 mg oral tablet Dose : 0.2 mg = 1 tab(s), Oral, qHS, X 90 day(s), # 100 tab(s), 3 Refill(s), 08/13/25 12:45:00 PM EST, Pharmacy: [facility], Hypertension, 152.4, cm, 08/13/24 15:10:00 EST, Height, kg, 08/13/24 15:10:00 EST, Dosing Weight Start Date: 08/18/24 Stop Date: 08/13/25 Status: Ordered Quantity: 100.0 Unit: tab(s) Repeat number: 4 Indication: Essential (primary) hypertension Start: 05-12-2023 End: 05-14-2023 take 0.2 mg by mouth once daily 0.2 mg, Oral, Daily, F irst dose on Fri05/12/23 at 0800 Start: 10-11-2021 End: 05-14-2024 cloNIDine 0.2 mg oral tablet Dose : 0.2 mg = 1 tab(s), Oral, qHS, X 90 day(s), # 90 tab(s), 3 Refill(s), 05/14/24 10:02:00 AM EDT, Pharmacy: [facility], Hypertension, 152.4, cm, 01/09/23 10:56:00 EDT, Height, kg, 05/20/23 9:15:00 EDT, Dosing Weight Start Date: 05/20/23 Stop Date: 05/14/24 Status: Ordered Start: 12-21-2015 take 0.3 mg by mouth once candice y Clonidine Hcl Active 0.3 MG PO DAILY March 25, 2016 12:00am take 1 tablet by evelia th once daily cloNIDine (Catapres) 0.2 MG tablet Take 0.2 mg by mouth Nightly. Active clopidogrel 75 mg oral tablet (20 sources) P2Y12 Platelet Inhibitor Start: 02-01-2025 End: 02-08-2025 take 75 mg by mouth once daily 75 mg, Oral, Daily, First dose on Fri02/01/25 at 1300 Start: 03-11-2024 clopidogrel 75 mg oral tablet Dose : 75 mg = 1 tab(s), Oral, qDay, 0 Refill(s) Start Date: 03/11/24 Status: Ordered Repeat number: 1 Start: 12-10-2023 clopidogrel 75 mg oral tablet Dose : 75 mg = 1 tab(s), Oral, qDay, # 90 tab(s), 3 Refill(s), Pharmacy: [facility], PVD (peripheral vascular disease), 152.4, cm, 12/10/23 14:12:00 EDT, Height, kg, 12/10/23 14:12:00 EDT, Dosing Weight Start Date: 12/10/23 Status: Ordered Start: 04-11-2023 End: 05-14-2023 clopidogrel 75 mg oral table t Dose : 75 mg = 1 tab(s), Oral, qDay, # 90 tab(s), 3 Refill(s), Pharmacy: [facility], 152.4, cm, 01/09/23 10:56:00 EDT, Height, kg, 01/09/23 10:56:00 EDT, Dosing Weight Start Date: 04/11/23 Status: Ordered Start: 06-08-2018 End: 11-28-2022 take 1 tablet by mouth once daily Clopidogrel (Plavix) 75 mg tablet Discontinued 75 MG PO DAILY June 08, 2018 1:00am November 28, 2022 9:28am diclofenac sodium 0.01 mg/mg topical gel (2 sources) Nonsteroidal Anti-inflammatory Drug Start: 02-06-2025 End: 02-08-2025 2 g, Topical, 2 times daily, First dose on 02/06/25 at 1430, Apply to left knee. 24 hr dilTIAZem hydrochloride 120 mg extended release oral capsule (13 sources) Calcium Channel Andrea Start: 02-06-2025 End: 02-08-2025 take 120 mg by mouth once daily 120 mg, Oral, Daily, First dose on 02/06/25 at 1700, Do not crush, chew, or split. Start: 06-18-2024 Cardizem CD 12 0 mg/24 hours oral capsule, extended release Dose : 240 mg = 2 cap(s), Oral, qDay, # 200 cap(s), 3 Refill(s), Pharmacy: [facility], 152.4, cm, 05/19/24 13:44:00 EDT, Height, kg, 05/19/24 13:39:00 EDT, Dosing Weight Start Date: 06/18/24 Status: Ordered Quantity: 200.0 Unit: cap(s) Repeat number: 4 Start: 03-23-2024 Cardizem CD 12 0 mg/24 hours oral capsule, extended release Dose : 240 mg = 2 cap(s), Oral, qDay, # 200 cap(s), 0 Refill(s), Pharmacy: [facility], 152.4, cm, 03/11/24 11:12:00 EDT, Height, kg, 03/11/24 11:12:00 EDT, Dosing Weight Start Date: 03/23/24 Status: Ordered Start: 12-25-2023 Cardizem CD 12 0 mg/24 hours oral capsule, extended release Dose : 240 mg = 2 cap(s), Oral, qDay, # 200 cap(s), 0 Refill(s), Pharmacy: [facility], 152.4, cm, 12/10/23 14:12:00 EDT, Height, kg, 12/10/23 14:12:00 EDT, Dosing Weight Start Date: 12/25/23 Status: Ordered Start: 12-05-2023 Cardizem CD 12 0 mg/24 hours oral capsule, extended release Dose : 240 mg = 2 cap(s), Oral, qDay, # 60 cap(s), 0 Refill(s), [facility]: [facility] #[id number], 152.4, cm, 12/01/23 20:54:00 EDT, Height, kg, 12/01/23 20:54:00 EDT, Dosing Weight Start Date: 12/05/23 Status: Ordered diphenhydrAMINE hydrochloride 25 mg oral tablet (13 sources) Histamine-1 Receptor Antagonist Start: 02-03-2025 End: 02-08-2025 take 1 tablet by mouth every six hours as needed 25 mg, Oral, Every 6 hours PRN, itching, Starting on [facility] 02/03/25 at 1635 Start: 01-31-2025 End: 01-31-2025 50 mg, IntraVENous, Once, On Fri01/31/25 at 1955, For 1 dose Start: 05-20-2023 Benadryl 25 mg oral tablet Dose : 25 mg = 1 tab(s), Oral, qHS, PRN as needed for insomnia, 0 Refill(s) Start Date: 05/20/23 Status: Ordered Repeat number: 1 doxycycline hyclate 100 mg oral tablet (5 sources) Tetracycline-class Drug Start: 04-28-2019 End: 11-15-2019 take 100 mg by mouth twice daily Doxycycline Hyclate Discontinued 100 MG PO TWICE A DAY April 28, 2019 12:00am November 15, 2019 10:08am 0.5 ml dulaglutide 3 mg/ml auto-injector (20 sources) GLP-1 Receptor Agonist Start: 05-21-2023 End: 05-15-2024 inject 1 dose by subcutaneous injection every week dulaglutide 1.5 mg/0.5 mL subcutaneous solution Dose : 1.5 mg =, Subcutaneous, qWeek, # 12 EA, 1 Refill(s), [facility], Type 2 diabetes mellitus, 152.4, cm, 09/03/23 9:58:00 EST, Height, kg, 09/03/23 9:58:00 EST, Dosing Weight Start Date: 11/11/23 Stop Date: 05/09/24 Status: Ordered Quantity: 12.0 Unit: EA Repeat number: 2 Indication: Type 2 diabetes mellitus without complications Start: 05-12-2023 End: 05-14-2023 dulaglutide (Trulicity) inje ction 1.5 mg Start: 01-09-2023 End: 04-09-2023 inject 1 dose by subcutaneous injection every week dulaglutide 1.5 mg/0.5 mL subcutaneous solution Dose : 1.5 mg =, Subcutaneous, qWeek, # 12 EA, 0 Refill(s), Pharmacy: [facility] #[id number], Type 2 diabetes mellitus, 152.4, cm, 01/09/23 10:56:00 EDT, Height, kg, 01/09/23 10:56:00 EDT, Dosing Weight Start Date: 01/09/23 Stop Date: 04/09/23 Status: Ordered Start: 06-25-2022 End: 09-23-2022 inject 1 dose by subcutaneous injection every week dulaglutide 1.5 mg/0.5 mL subcutaneous solution Dose : 1.5 mg =, Subcutaneous, qWeek, # 12 EA, 0 Refill(s), Pharmacy: [facility], Type 2 diabetes mellitus, 152.7, cm, 06/25/22 11:18:00 EST, Height, kg, 06/25/22 11:18:00 EST, Dosing Weight Start Date: 06/25/22 Stop Date: 09/23/22 Status: Ordered Start: 02-22-2022 End: 05-23-2022 inject 1 dose by subcutaneous injection every week dulaglutide 1.5 mg/0.5 mL subcutaneous solution Dose : 1.5 mg =, Subcutaneous, qWeek, Dose increase, # 12 EA, 0 Refill(s), [facility], Type 2 diabetes mellitus, 152.4, cm, 02/22/22 11:40:00 EDT, Height Start Date: 02/22/22 Stop Date: 05/23/22 Status: Ordered Start: 04-28-2019 Dulaglutide Ac tive 1.5 MG SC SALCIDO April 28, 2019 12:00am Start: 04-28-2019 Trulicity Pen 0.75 mg/0.5 mL subcutaneous solution See Instructions, inject 0.5 milliliters ( 0.75 milligrams ) subcutaneously every 7 days IN THE ABDOMEN THIGHS OR OUTER AREA OF UPPER ARM ROTATE INJECTION SITES, # 6.5 mL, 3 Refill(s), [facility], 151.8, cm, 04/09/21 15:49:00 ED... Start Date: 05/12/21 Status: Ordered Dulaglutide (BRYCE LICITY SC) Inject into the skin Weekly 0 Active DULoxetine 30 mg delayed release oral capsule (20 sources) Serotonin and Norepinephrine Reuptake Inhibitor Start: 02-01-2025 End: 02-08-2025 take 30 mg by mouth once daily 30 mg, Oral, Daily, First dose on Fri02/01/25 at 1300, Do not crush or chew. Start: 07-20-2024 DULoxetine 30 mg oral delayed release capsule Dose : 30 mg = 1 cap(s), Oral, qHS, # 90 cap(s), 3 Refill(s), Pharmacy: [facility], Anxiety and depression, 152.4, cm, 05/19/24 13:44:00 EDT, Height, kg, 05/19/24 13:39:00 EDT, Dosing Weight Start Date: 07/20/24 Status: Ordered Quantity: 90.0 Unit: cap(s) Repeat number: 4 Indication: Anxiety disorder, unspecified Start: 05-20-2023 End: 08-18-2023 DULoxetine 30 mg oral delaye d release capsule Dose : 30 mg = 1 cap(s), Oral, qHS, # 90 cap(s), 3 Refill(s), Pharmacy: [facility], Anxiety and depression, 152.4, cm, 07/15/23 11:11:00 EST, Height, kg, 07/15/23 11:11:00 EST, Dosing Weight Start Date: 07/16/23 Status: Ordered Start: 05-12-2023 End: 05-14-2023 take 30 mg by mouth once daily 30 mg, Oral, Daily, Fir st dose on Fri05/12/23 at 0900, Do not crush or chew. Start: 03-25-2016 take 30 mg by mouth once daily Duloxetine Active 30 MG PO DAILY March 25, 2016 12:00am Start: 12-21-2015 take 60 mg by mouth once daily Duloxetine Active 60 MG PO DAILY March 24, 2016 11:00pm 0.4 ml enoxaparin sodium 100 mg/ml prefilled syringe (4 sources) Low Molecular Weight Heparin Start: 02-01-2025 End: 02-08-2025 inject 40 mg by subcutaneous injection every twenty-four hours 40 mg, SubCUTAneous, Every 24 hours scheduled (Daily), First dose on Fri02/01/25 at 1300, Indication of Use: Prophylaxis-DVT/PE, Indications: Prophylaxis of Venous Thromboembolism Start: 05-12-2023 End: 05-14-2023 enoxaparin (Lovenox) syringe 30 mg EPINEPHrine 0.01 mg/ml / lidocaine hydrochloride 10 mg/ml injectable solution (4 sources) Antiarrhythmic, alpha-Adrenergic Agonist, beta-Adrenergic Agonist, Catecholamine, Amide Local Anesthetic Start: 01-23-2025 End: 01-24-2025 10 mL, Infiltration, Once, On Fri01/24/25 at 2050, For 1 dose ferrous sulfate 60 mg/ml oral solution (11 sources) Start: 05-12-2023 End: 05-14-2023 ferrous sulfate solution 187.5 mg Start: 04-24-2016 take 1 tablet by evelia th once daily FE TABS 325 (65 Fe) MG TBEC One tablet by mouth daily FERROUS SULFATE [id number] Cristóbal Felix Start: 03-25-2016 End: 11-28-2022 take 325 mg by mouth once daily Ferrous Sulfate Discon tinued 325 MG PO DAILY@0800 March 25, 2016 12:00am November 28, 2022 9:27am fluconazole 150 mg oral tablet (2 sources) Azole Antifungal Start: 12-10-2023 End: 12-13-2023 Diflucan 150 mg oral tablet Dose : 150 mg = 1 tab(s), Oral, q72h, # 2 tab(s), 0 Refill(s), Pharmacy: [facility], Yeast infection, 152.4, cm, 12/10/23 14:12:00 EDT, Height, 56.8, kg, 12/10/23 14:12:00 EDT, Dosing Weight Start Date: 12/10/23 Stop Date: 12/13/23 Status: Ordered 60 actuat formoterol fumarate 0.005 mg/actuat / mometasone furoate 0.2 mg/actuat metered dose inhaler (2 sources) Corticosteroid, beta2-Adrenergic Agonist Start: 02-03-2025 End: 02-08-2025 take 2 puff(s) by mouth twice daily 2 puff, Inhalation, 2 times daily, First dose on Fri02/03/25 at 2000, Administer using an inhaler spacer. Rinse mouth with water after use to reduce aftertaste and incidence of candidiasis. Do not swallow. glucagon (rdna) 1 mg injection (2 sources) Antihypoglycemic Agent Start: 02-01-2025 End: 02-08-2025 1 mg, IntraMUSCular, PRN, low blood sugar, Blood glucose less than 70 mg/dL and patient NOT ALERT or NPO and does not have IV access., Starting on Fri02/01/25 at 2238, After administration, attempt intravenous access and start D5W at 100 mL/hr. Repeat blood glucose in 15 minutes x2 and notify provider. 50 ml glucose 50 mg/ml injection (4 sources) Start: 02-01-2025 End: 02-08-2025 100 mL/hr, IntraVENous, PRN, Blood sugar less than 70mg/dL, Starting on Fri02/01/25 at 2238, Start infusion following administration of dextrose 50% or glucagon. Start: 02-01-2025 End: 02-08-2025 12.5 g, IntraVENous, PRN, lo w blood sugar, Blood glucose less than 70 mg/dL and patient NOT ALERT or NPO., Starting on Fri02/01/25 at 2238, If patient does not respond within 5 minutes, repeat dose x1. Start D5W at 100 mL/hour until ordering provider can be reached. Repeat blood glucose in 15 minutes. If blood glucose is less than 70 mg/dL, repeat treatment and recheck blood glucose in 15 minutes x2. If using Glucostabilizer, dose as instructed per system. Insulin Lispro (Humalog) injection 0-12 Units (2 sources) Start: 02-02-2025 End: 02-08-2025 Insulin Lispro (Humalog) injection 0-12 Units levoFLOXacin 500 mg oral tablet (10 sources) Quinolone Antimicrobial Start: 09-16-2019 End: 09-21-2019 take 1 tablet by mouth every twenty-four hours Levofloxacin (Levaquin) 500 mg tablet Discontinued 500 MG PO Q24H 5 September 16, 2019 1:00am September 21, 2019 1:08am Start: 10-29-2017 End: 11-03-2017 take 1 tablet by mouth every twenty-four hours Levofloxacin (Levaquin) 500 mg tablet Discontinued 500 MG PO Q24H 5 October 29, 2017 12:00am November 03, 2017 12:08am lisinopril 5 mg oral tablet (20 sources) Angiotensin Converting Enzyme Inhibitor Start: 05-14-2023 End: 02-08-2025 take 5 mg by mouth once daily 5 mg, Oral, Daily, First dose on Fri02/01/25 at 1300 Start: 04-13-2021 End: 05-14-2023 take 2.5 mg by mouth once daily 2.5 mg, Oral, Daily, F irst dose on Fri05/13/23 at 1230 Magnesium (1 source) Start: 09-21-2024 magnesium 400mg-Qunol magnesium 400mg-Qunol, 0 Refill(s), 57.4 Start Date: 09/21/24 Status: Ordered Repeat number: 1 metFORMIN hydrochloride 500 mg oral tablet (20 sources) Biguanide Start: 09-19-2023 End: 10-29-2023 take 500 mg by mouth at bedtime Metformin Discontinued 500 MG PO AT BEDTIME September 19, 2023 1:00am October 29, 2023 6:41am Start: 09-24-2022 metFORMIN 500 mg oral tablet (IR) Dose : 1,000 mg = 2 tab(s), Oral, BID, # 360 tab(s), 1 Refill(s), Pharmacy: [facility], Diabetes, 152.4, cm, 09/19/22 10:59:00 EST, Height, kg, 09/19/22 10:59:00 EST, Dosing Weight Start Date: 09/24/22 Status: Ordered Start: 04-18-2022 metFORMIN 500 mg oral tablet (IR) Dose : 1,000 mg = 2 tab(s), Oral, BID, # 360 tab(s), 1 Refill(s), Pharmacy: [facility], Diabetes, 151, cm, 03/25/22 14:14:00 EDT, Height, kg, 03/25/22 14:14:00 EDT, Dosing Weight Start Date: 04/18/22 Status: Ordered Start: 10-11-2021 metFORMIN 500 mg oral tablet (IR) Dose : 1,000 mg = 2 tab(s), Oral, BID, # 360 tab(s), 1 Refill(s), Pharmacy: [facility], Diabetes, 60, cm, 05/25/21 10:41:00 EDT, Height, kg, 05/25/21 10:41:00 EDT, Dosing Weight Start Date: 10/11/21 Status: Ordered Start: 03-25-2016 End: 06-25-2023 take 1000 mg by mouth twice daily Metformin Discontinued 1000 MG PO TWICE A DAY March 25, 2016 12:00am June 25, 2023 10:50am Start: 12-21-2015 End: 05-14-2023 take 2 tablets by mouth twice daily METFORMIN HCL 500 MG TABS 2 tablets by mouth twice daily METFORMIN HCL [id number] Cristóbal Felix Start: 12-21-2015 take 1 tablet by evelia twice daily METFORMIN HCL 500 MG TABS One tablet by mouth twice daily METFORMIN HCL [id number] Renetta Miner RN methylPREDNISolone 125 mg injection (2 sources) Corticosteroid Start: 01-31-2025 End: 01-31-2025 125 mg, IntraVENous, Once, On Fri01/31/25 at 2010, For 1 dose 24 hr metoprolol succinate 25 mg extended release oral tablet (2 sources) beta-Adrenergic Andrea Start: 12-03-2023 End: 12-03-2023 metoprolol succinate 25 mg oral TABLET extended release Start: 12/03/23 8:00:00 AM EDT, Dose = 25 mg, = 1 tab(s), Oral, 0, 12/02/23 13:12:00 EDT Start Date: 12/03/23 Stop Date: 12/03/23 Status: Completed Start: 12-02-2023 End: 12-02-2023 metoprolol succinate 25 mg o ral TABLET extended release Start: 12/02/23 1:12:00 PM EDT, Dose = 25 mg, = 0.5 tab(s), Oral, 12/02/23 13:12:00 EDT Start Date: 12/02/23 Stop Date: 12/02/23 Status: Completed 1 ml morphine sulfate 4 mg/ml cartridge (4 sources) Opioid Agonist Start: 02-01-2025 End: 02-08-2025 take 1 mg intravenously every four hours as needed for pain 1 mg, IntraVENous, Every 4 hours PRN, severe pain (7-10), Starting on Fri02/01/25 at 1224, If oral and injectable narcotics ordered, use oral first and only use injectable if oral is ineffective or cannot take oral. Do Not give oral and injectable within 1 hour of each other unless specifically ordered. Start: 01-31-2025 End: 01-31-2025 take 1 dose by mouth every hour 2 mg, IntraVENous, Once, On Fri01/31/25 at 2245, For 1 dose, If oral and injectable narcotics ordered, use oral first and only use injectable if oral is ineffective or cannot take oral. Do Not give oral and injectable within 1 hour of each other unless specifically ordered. 1 ml naloxone hydrochloride 0.4 mg/ml injection (2 sources) Opioid Antagonist Start: 02-01-2025 End: 02-08-2025 0.4 mg, IntraVENous, Every 5 min PRN, opioid reversal, respiratory depression, Starting on Fri02/01/25 at 1235, +++ For RR nystatin [id number] unt/ml oral suspension (1 source) Polyene Antifungal Start: 08-13-2024 End: 08-20-2024 take 1 mL by mouth once daily nystatin 100,000 units/mL oral suspension Dose : 100,000 unit(s) = 1 mL, Oral, 5x/Day, X 7 day(s), # 35 mL, 0 Refill(s), 08/20/24 3:44:00 PM EST, Pharmacy: [facility], Oral thrush, 60, cm, 08/13/24 15:10:00 EST, Height, kg, 08/13/24 15:10:00 EST, Dosing Weight Start Date: 08/13/24 Stop Date: 08/20/24 Status: Ordered Quantity: 35.0 Unit: mL Repeat number: 1 Indication: Candidal stomatitis 2 ml ondansetron 2 mg/ml injection (2 sources) Serotonin-3 Receptor Antagonist Start: 01-31-2025 End: 01-31-2025 4 mg, IntraVENous, Once, On Fri01/31/25 at 2245, For 1 dose ondansetron ODT (Zofran-ODT) disintegrating tablet 4 mg (4 sources) Start: 02-01-2025 End: 02-08-2025 take 1 tablet by mouth every eight hours as needed for nausea and vomiting ondansetron ODT (Zofran-ODT) disintegrating tablet 4 mg Start: 05-12-2023 End: 05-14-2023 take 1 tablet by mouth every eight hours as needed for nausea and vomiting ondansetron ODT (Zofran-ODT) disintegrating tablet 4 mg oxyCODONE hydrochloride 5 mg oral tablet (8 sources) Opioid Agonist Start: 01-24-2025 End: 01-24-2025 take 5 mg by mouth once 5 mg, Oral, Once, On Fri01/24/25 at 2045, For 1 dose Start: 01-24-2025 End: 02-08-2025 take 1 tablet by mouth every eight hours as needed for pain 5 mg, Oral, Every 8 hours PRN, severe pain (7-10), Starting on Fri02/01/25 at 1224 oxymetazoline hydrochloride 0.5 mg/ml nasal spray (2 sources) Start: 02-06-2025 End: 02-08-2025 take 2 spray(s) nasal route every twelve hours as needed for congestion 2 spray, Each Nostril, Every 12 hours PRN, congestion, Starting on Fri02/06/25 at 2247, For 3 days pantoprazole 40 mg delayed release oral tablet (20 sources) Proton Pump Inhibitor Start: 03-23-2024 End: 04-27-2025 take 40 mg by mouth once daily before breakfast 40 mg, Oral, Daily before breakfast, First dose on Fri02/07/25 at 0600, Do not crush, chew, or split. Start: 04-11-2023 pantoprazole 4 0 mg oral enteric coated tablet Dose : 40 mg = 1 tab(s), Oral, qDay, # 90 tab(s), 3 Refill(s), Pharmacy: [facility], GERD (gastroesophageal reflux disease), 152.4, cm, 01/09/23 10:56:00 EDT, Height, kg, 01/09/23 10:56:00 EDT, Dosing Weight Start Date: 04/11/23 Status: Ordered Start: 04-24-2016 pantoprazole 4 0 mg oral enteric coated tablet Dose : 40 mg = 1 tab(s), Oral, qDay, # 90 tab(s), 1 Refill(s), Pharmacy: [facility], GERD (gastroesophageal reflux disease), 152.4, cm, 09/19/22 10:59:00 EST, Height, kg, 09/19/22 10:59:00 EST, Dosing Weight Start Date: 09/24/22 Status: Ordered Start: 03-25-2016 take 40 mg by mouth once daily Pantoprazole Active 40 MG PO DAILY March 24, 2016 11:00pm Start: 03-25-2016 take 20 mg by mouth once daily Pantoprazole Active 20 MG PO DAILY March 25, 2016 11:09am piperacillin-tazobactam (Zosyn) 3,375 mg in sodium chloride 0.9 % 50 mL IVPB Mini-Bag Plus (2 sources) Start: 05-12-2023 End: 05-14-2023 take 3375 mg intravenously every eight hours piperacillin-tazobactam (Zosyn) 3,375 mg in sodium chloride 0.9 % 50 mL IVPB Mini-Bag Plus piperacillin-tazobactam (Zosyn) 4,500 mg in sodium chloride 0.9 % 100 mL IVPB Mini-Bag Plus (2 sources) Start: 05-11-2023 End: 05-11-2023 piperacillin-tazobactam (Zosyn) 4,500 mg in sodium chloride 0.9 % 100 mL IVPB Mini-Bag Plus polyethylene glycol 3350 40834 mg powder for oral solution (4 sources) Osmotic Laxative Start: 02-01-2025 End: 02-08-2025 take 17 g by mouth every twenty-four hours as needed for constipation 17 g, Oral, Daily PRN, constipation, Starting on Fri02/01/25 at 1224, 1st line for treatment of constipation - give scheduled if no bowel movement in past 24 hours. Start: 05-12-2023 End: 05-14-2023 take 17 g by mouth every twenty-four hours as needed for constipation polyethylene glycol (PEG) 3350 (Miralax) packet 17 g predniSONE 10 mg oral tablet (20 sources) Corticosteroid Start: 12-06-2023 End: 12-14-2023 prednisone 10mg tab (TAPER) Taper 90-70-64-27-19-97-10-5 mg x 1 day until gone, Oral, qAM, # 18 tab(s), 0 Refill(s), Pharmacy: [facility] #[id number], 152.4, cm, 12/01/23 20:54:00 EDT, Height, kg, 12/01/23 20:54:00 EDT, Dosing Weight Start Date: 12/06/23 Stop Date: 12/14/23 Status: Ordered Start: 05-11-2023 End: 05-11-2023 predniSONE (Deltasone) table t 60 mg Start: 09-16-2019 End: 11-15-2019 Prednisone Discontinued 10 M G PO daily September 16, 2019 1:00am November 15, 2019 10:08am take 4 tabs for three days, then 3 tabs for three days, then 2 tabs for three days, then 1 tab for 3 days Start: 04-28-2019 End: 08-12-2019 Prednisone Discontinued 10 M G PO daily June 02, 2019 1:00am August 12, 2019 11:07am 4 tablet daily for 3 days, then 3 tablet for 3 days then 2 tablet daily for 3 days then 1 tablet daily for 3 days Start: 07-27-2018 End: 11-02-2018 Prednisone Discontinued 10 M G PO daily August 21, 2018 1:00am November 02, 2018 11:24am take 4 tabs for three days, then 3 tabs for three days, then 2 tabs for three days, then 1 tab for 3 days Start: 07-03-2017 End: 01-27-2018 Prednisone Discontinued 10 M G PO daily January 19, 2018 3:02pm January 27, 2018 9:43am take 4 tabs for three days, then 3 tabs for three days, then 2 tabs for three days, then 1 tab for 3 days Start: 04-24-2017 End: 05-06-2017 PREDNISONE 10 MG TABS Take 4 tabs by mouth for 3 days, then 3 tabs by mouth for 3 days, then 2 tabs by mourth for 3 days, then 1 tab by mouth for 3 days. PREDNISONE [id number] Cindy Munoz CNP Start: 05-24-2016 End: 06-05-2016 PREDNISONE 10 MG TABS Take 4 tabs by mouth for 3 days, then 3 tabs by mouth for 3 days, then 2 tabs by mourth for 3 days, then 1 tab by mouth for 3 days. PREDNISONE [id number] Rose Hebert [employer]IZ[employer]ELOPMENT [employer]ANT-C Start: 12-21-2015 End: 04-24-2016 take 1 tablet by mouth once daily PREDNISONE 10 MG TABS One tablet by mouth daily PREDNISONE [id number] Cristóbal Felix pregabalin 50 mg oral capsule (8 sources) Start: 12-21-2015 End: 12-26-2015 take 1 tablet by mouth three times daily LYRICA 50 MG CAPS One tablet by mouth three times daily PREGABALIN [id number] Renetta Miner RN sennosides, half-way 8.6 mg oral tablet (2 sources) Start: 05-12-2023 End: 05-14-2023 sennosides (Senokot) tablet 17.2 mg simvastatin 20 mg oral tablet (20 sources) HMG-CoA Reductase Inhibitor Start: 12-26-2015 End: 02-07-2022 take 20 mg by mouth at bedtime Simvastatin Discontinued 20 MG PO AT BEDTIME September 22, 2019 11:43am February 07, 2022 9:02am take 1 tablet by mouth once candice y simvastatin (ZOCOR) 40 MG tablet Take 40 mg by mouth nightly 0 Active SITagliptin 100 mg oral tablet (9 sources) Dipeptidyl Peptidase 4 Inhibitor Start: 12-21-2015 End: 04-28-2019 take 100 mg by mouth once daily Sitagliptin Phosphate Discontinued 100 MG PO DAILY March 25, 2016 12:00am April 28, 2019 10:21am sodium chloride 30 mg/ml inhalation solution (14 sources) Start: 02-06-2025 End: 02-08-2025 4 mL, Nebulization, 3 times daily, First dose (after last modification) on Fri02/06/25 at 2000 Start: 02-06-2025 End: 02-06-2025 4 mL, Nebulization, 2 times daily PRN, thick secretions, Starting on Fri02/06/25 at 0834 Start: 02-01-2025 End: 02-03-2025 take 50 mL intravenously every hour 50 mL/hr, IntraVENous, Continuous, Starting on Fri02/01/25 at 1230 Start: 05-18-2023 End: 05-18-2023 sodium chloride 0.9 % bolus 1,000 mL Start: 05-11-2023 End: 05-12-2023 sodium chloride 0.9 % bolus 600 mL Tiotropium [place] (10 sources) Anticholinergic Start: 04-12-2020 End: 05-01-2021 take 2.5 ug by inhalation once daily in the morning Tiotropium [place] (Spiriva Respimat) 2.5 mcg/actuation mist Discontinued 2 INH INHALATION EVERY MORNING April 12, 2020 10:54am May 01, 2021 10:35am Start: 04-12-2020 End: 05-01-2021 take 2.5 ug by inhalation once daily in the morning Tiotropium [place] (Spiriva Respimat) 2.5 mcg/actuation mist Discontinued 2 INH INHALATION EVERY MORNING April 11, 2020 11:00pm May 01, 2021 9:35am Start: 04-12-2020 End: 05-01-2021 take 2.5 ug by inhalation once daily in the morning Tiotropium [place] (Spiriva Respimat) 2.5 mcg/actuation mist Discontinued 2 INH INHALATION EVERY MORNING April 12, 2020 12:00am May 01, 2021 10:35am Start: 07-03-2017 End: 09-16-2017 take 1 puff(s) by inhalation once daily Tiotropium [place] (Spiriva Respimat) 2.5 mcg/actuation mist Discontinued 2 PUFF INHALATION daily July 03, 2017 10:25am September 16, 2017 12:06pm administer at approximately the same time(s) each day Start: 07-03-2017 End: 09-16-2017 take 1 puff(s) by inhalation once daily Tiotropium [place] (Spiriva Respimat) 2.5 mcg/actuation mist Discontinued 2 PUFF INHALATION daily July 03, 2017 12:00am September 16, 2017 11:06am administer at approximately the same time(s) each day Start: 07-03-2017 End: 09-16-2017 take 1 puff(s) by inhalation once daily Tiotropium [place] (Spiriva Respimat) 2.5 mcg/actuation mist Discontinued 2 PUFF INHALATION daily July 03, 2017 1:00am September 16, 2017 12:06pm administer at approximately the same time(s) each day tiZANidine 4 mg oral capsule (4 sources) Central alpha-2 Adrenergic Agonist Start: 01-28-2024 End: 02-11-2024 tiZANidine 4 mg oral capsule Dose : 4 mg = 1 cap(s), Oral, qHS, PRN Spasm, # 14 cap(s), 0 Refill(s), Pharmacy: [facility] #[id number], Low back pain, 152.4, cm, 01/28/24 11:10:00 EDT, Height, kg, 01/28/24 11:10:00 EDT, Dosing Weight Start Date: 01/28/24 Stop Date: 02/11/24 Status: Ordered traZODone hydrochloride 50 mg oral tablet (15 sources) Serotonin Reuptake Inhibitor Start: 02-06-2025 End: 02-08-2025 take 50 mg by mouth once daily 50 mg, Oral, Nightly, First dose on 02/06/25 at 2100 Start: 09-15-2024 traZODone 50 m g oral tablet Dose : 25 mg = 0.5 tab(s), Oral, qHS, # 15 tab(s), 3 Refill(s), Pharmacy: [facility], Insomnia, 152.4, cm, 08/13/24 15:10:00 EST, Height, kg, 08/13/24 15:10:00 EST, Dosing Weight Start Date: 09/15/24 Status: Ordered Quantity: 15.0 Unit: tab(s) Repeat number: 4 Indication: Insomnia, unspecified Start: 08-13-2024 traZODone 50 m g oral tablet Dose : 25 mg = 0.5 tab(s), Oral, qHS, # 15 tab(s), 0 Refill(s), Pharmacy: [facility], Insomnia, 60, cm, 08/13/24 15:10:00 EST, Height, kg, 08/13/24 15:10:00 EST, Dosing Weight Start Date: 08/13/24 Status: Ordered Quantity: 15.0 Unit: tab(s) Repeat number: 1 Indication: Insomnia, unspecified Start: 11-28-2022 take 25 mg by mouth at bedtime Trazodone Active 25 MG PO AT BEDTIME November 27, 2022 11:00pm Start: 06-25-2022 End: 04-09-2023 traZODone 50 mg oral tablet Dose : 50 mg = 1 tab(s), Oral, qHS, # 90 tab(s), 0 Refill(s), Pharmacy: [facility] #[id number], Insomnia, 152.4, cm, 01/09/23 10:56:00 EDT, Height, kg, 01/09/23 10:56:00 EDT, Dosing Weight Start Date: 01/09/23 Stop Date: 04/09/23 Status: Ordered 30 actuat umeclidinium 0.0625 mg/actuat dry powder inhaler (5 sources) Anticholinergic Start: 07-09-2017 End: 01-27-2018 take 62.5 ug by inhalation once daily Umeclidinium (Incruse Ellipta) 62.5 mcg/actuation blister with device Discontinued 1 INH INHALATION daily July 09, 2017 1:00am January 27, 2018 10:22am Vancomycin (2 sources) Glycopeptide Antibacterial Start: 01-31-2025 End: 01-31-2025 1,250 mg (rounded from 1,134 mg = 20 mg/kg 56.7 kg), IntraVENous, at 166.7 mL/hr, Administer over 90 Minutes, Once, On Fri01/31/25 at 1705, For 1 dose, premix bag, Suspected Indication (Select all that apply): Skin and Soft Tissue Infection vancomycin (Vancocin) 1,000 mg in sodium chloride 0.9 % 250 mL IVPB (2 sources) Start: 05-11-2023 End: 05-11-2023 vancomycin (Vancocin) 1,000 mg in sodium chloride 0.9 % 250 mL IVPB vancomycin (Vancocin) 750 mg in sodium chloride 0.9 % 250 mL IVPB (6 sources) Start: 02-04-2025 End: 02-05-2025 750 mg, IntraVENous, at 125 mL/hr, Administer over 120 Minutes, Every 24 hours, First dose (after last modification) on Fri02/04/25 at 1500, ADD-[place] bag, Suspected Indication (Select all that apply): Skin and Soft Tissue Infection Start: 02-03-2025 End: 02-03-2025 750 mg, IntraVENous, at 250 mL/hr, Administer over 60 Minutes, Every 24 hours, First dose on Fri02/03/25 at 1500, ADD-[place] bag, Suspected Indication (Select all that apply): Skin and Soft Tissue Infection Start: 05-12-2023 End: 05-13-2023 vancomycin (Vancocin) 750 mg in sodium chloride 0.9 % 250 mL IVPB vancomycin (Vancocin) 750 mg in sodium chloride 0.9 % 500 mL IVPB (2 sources) Start: 02-05-2025 End: 02-07-2025 750 mg, IntraVENous, at 250 mL/hr, Administer over 120 Minutes, Every 24 hours, First dose on Fri02/05/25 at 1700, Suspected Indication (Select all that apply): Skin and Soft Tissue Infection Problems Active Problems Problem Classification Problem Date Documented Da te Episodic/Chronic Acute and unspecified renal failure (1 source) Acute kidney failure, unspecified; Translations: [Acute kidney failure, unspecified] Onset: 5 Episodic Acute bronchitis (2 sources) Acute bronchitis, unspecified; Translations: [Acute bronchitis, unspecified] Onset: 4 Episodic Anxiety disorders (20 sources) Anxiety 02-22-2019 Chronic Cardiac dysrhythmias (10 sources) Unspecified atrial fibrillation; Translations: [Atrial fibrillation] Onset: 4 Chronic Chronic kidney disease (20 sources) Chronic kidney disease stage 3; Translations: [Chronic kidney disease, stage 3 unspecified] Onset: 4 06-25-2022 Chronic Chronic obstructive pulmonary disease and bronchiectasis (20 sources) Moderate chronic obstructive pulmonary disease; Translations: [Acute exacerbation of chronic obstructive airways disease] Onset: 6 04-24-2016 Chronic Conditions associated with dizziness or vertigo (2 sources) Lightheadedness; Translations: [Dizziness and giddiness] 05-18-2023 Episodic Deficiency and other anemia (1 source) Anemia of chronic renal failure; Translations: [Anemia in chronic kidney disease] Chronic Deficiency and other anemia (2 sources) Iron deficiency anemia secondary to blood loss (chronic); Translations: [Iron deficiency anemia secondary to blood loss (chronic)] Onset: 4 Chronic Deficiency and other anemia (20 sources) Anemia; Translations: [Anemia, unspecified] Onset: 4 09-19-2022 Episodic Diabetes mellitus with complications (3 sources) Type 2 diabetes mellitus with diabetic chronic kidney disease; Translations: [Type 2 diabetes mellitus with hyperglycemia] Onset: 3 Chronic Diabetes mellitus without complication (20 sources) Type 2 diabetes mellitus; Translations: [Type 2 diabetes mellitus without complications] 08-01-2020 Chronic Disorders of lipid metabolism (20 sources) Hyperlipidemia; Translations: [Hyperlipidemia, unspecified] Onset: 6 12-21-2015 Chronic Diverticulosis and diverticulitis (2 sources) Diverticulitis of intestine, part unspecified, without perforation or abscess without bleeding; Translations: [Diverticulitis of large intestine without perforation or abscess with bleeding] Onset: 4 Chronic Esophageal disorders (20 sources) Gastroesophageal reflux disease 04-25-2020 Chronic Essential hypertension (20 sources) Essential (primary) hypertension; Translations: [Essential hypertension] Onset: 6 12-21-2015 Chronic Fluid and electrolyte disorders (4 sources) Hyperkalemia; Translations: [Dehydration] Onset: 3 Episodic Gastrointestinal hemorrhage (20 sources) Gastrointestinal hemorrhage 02-02-2016 Episodic Malaise and fatigue (4 sources) Asthenia; Translations: [Weakness] Onset: 4 05-18-2023 Episodic Mood disorders (20 sources) Depressive disorder 02-22-2019 Chronic Nutritional deficiencies (20 sources) Iron deficiency 02-22-2019 Episodic Open wounds of extremities (18 sources) Laceration of right knee; Translations: [Laceration without foreign body, right knee, initial encounter] Onset: 5 01-24-2025 Episodic Osteoarthritis (11 sources) Osteoarthritis of joint of right shoulder region; Translations: [Primary osteoarthritis, right shoulder] Onset: 4 06-12-2023 Chronic Other aftercare (5 sources) H/O: high risk medication; Translations: [Other long-term (current) drug therapy] 11-03-2017 Episodic Other aftercare (8 sources) Post-discharge follow-up 12-10-2023 Episodic Other circulatory disease (4 sources) Peripheral arterial occlusive disease; Translations: [Peripheral vascular disease, unspecified] Onset: 6 12-21-2015 Chronic Other circulatory disease (9 sources) Carotid bruit; Translations: [Other specified symptoms and signs involving the circulatory and respiratory systems] Onset: 6 12-27-2015 Episodic Other circulatory disease (20 sources) Carotid bruit present 02-02-2016 Episodic Other circulatory disease (20 sources) History of transient ischemic attack 01-24-2020 Episodic Other ear and sense organ disorders (2 sources) Otalgia, right ear; Translations: [Otalgia, unspecified] Episodic Other lower respiratory disease (5 sources) Dyspnea; Translations: [Dyspnea, unspecified] 11-03-2017 Episodic Other lower respiratory disease (1 source) Shortness of breath; Translations: [Shortness of breath] Onset: 5 Episodic Other lower respiratory disease (1 source) Other abnormalities of breathing; Translations: [Other abnormalities of breathing] Onset: 5 Episodic Other nervous system disorders (20 sources) Neuropathy 02-02-2016 Chronic Other nervous system disorders (1 source) Postoperative pain ; Translations: [Other acute postprocedural pain] 10-30-2023 Episodic Other non-traumatic joint disorders (17 sources) Knee pain 09-19-2022 Episodic Other non-traumatic joint disorders (4 sources) Pain in right shoulder; Translations: [Right shoulder pain] 06-12-2023 Episodic Other nutritional; endocrine; and metabolic disorders (4 sources) Overweight in adulthood with body mass index of 25 or more but less than 30 03-11-2024 Episodic Other skin disorders (20 sources) Dry skin dermatitis 02-23-2019 Episodic Peripheral and visceral atherosclerosis (20 sources) Intermittent claudication; Translations: [Peripheral vascular disease, unspecified] Onset: 4 04-12-2020 Chronic Pneumonia (except that caused by tuberculosis or sexually transmitted disease) (2 sources) Pneumonia; Translations: [Pneumonia, unspecified organism] Onset: 4 Episodic Residual codes; unclassified (10 sources) History of operative procedure on foot; Translations: [Other specified postprocedural states] 08-12-2019 Episodic Residual codes; unclassified (20 sources) Insomnia 02-22-2019 Episodic Substance-related disorders (15 sources) Nicotine dependence; Translations: [Nicotine dependence, unspecified, uncomplicated] Onset: 6 12-26-2015 Chronic Unclassified (9 sources) Abnormal electrocardiogram [ECG] [EKG]; Translations: [Electrocardiogram abnormal] Onset: 6 12-26-2015 Episodic Unclassified (4 sources) Preoperative cardiovascular examination ; Translations: [Encounter for preprocedural cardiovascular examination] Onset: 6 12-21-2015 Unclassified (4 sources) Long-term drug therapy; Translations: [Other long-term (current) drug therapy] Onset: 6 01-05-2016 Urinary tract infections (20 sources) Acute cystitis; Translations: [Urinary tract infectious disease] 03-25-2022 Episodic Past or Other Problems Problem Classification Problem Date Documented Da te Episodic/Chronic Deficiency and other anemia (2 sources) Anemia, unspecified; Translations: [Anemia, unspecified] Onset: 05-19-2024 06-04-2023 Episodic Other lower respiratory disease (3 sources) Dyspnea on exertion; Translations: [Other forms of dyspnea] Onset: 06-02-2017 06-02-2017 Episodic Septicemia (except in labor) (20 sources) Septic shock; Translations: [Sepsis, unspecified organism] Onset: 05-11-2023 05-11-2023 Episodic Superficial injury; contusion (1 source) Unspecified superficial injury of unspecified upper arm, initial encounter; Translations: [Unspecified superficial injury of unspecified upper arm, initial encounter] Onset: 11-06-2023 Episodic Unclassified (4 sources) Family history of ischemic heart disease and other diseases of the circulatory system; Translations: [Family history of ischemic heart disease and other diseases of the circulatory system] Onset: 12-26-2015 12-26-2015 Episodic Unclassified (5 sources) Right lower extremity angioplasty 08-12-2019 Unclassified (2 sources) Laceration of right knee 02-07-2025 Results Test Name Value Interpretation Reference Range Facility Laboratory - Chemistry and C hemistry - challengeon 02-07-2025 Glucose [Mass/Vol] 201 mg/dL High 70 - 100 mg/dL [facility] Glucose [Mass/Vol] 229 mg/dL High 70 - 100 mg/dL [facility] Glucose [Mass/Vol] 129 mg/dL High 70 - 100 mg/dL [facility] No Panel Informationon 02-07 Interpretation and review of laboratory results Abnormal [facility] Performed by: Heaven Crocker [address] [place] [address] CLIA ID: [id number] [facility] Interpretation and review of laboratory results Abnormal [facility] Performed by: Catarino Miller [facility] [address] CLIA ID: [id number] [facility] Interpretation and review of laboratory results Abnormal [facility] Performed by: Catarino Miller [facility] [address] CLIA ID: [id number] [facility] Basic metabolic 1998 panelon 02-06-2025 Anion gap [Moles/Vol] 11 mmol/L 3 - 13 mmol/L [facility] Calcium [Mass/Vol] 9.1 mg/dL 8.8 - 10. 0 mg/dL [facility] Chloride [Moles/Vol] 109 mmol/L High 98 - 10 7 mmol/L [facility] CO2 [Moles/Vol] 19 mmol/L Low 23 - 31 mmol/L [facility] Creatinine [Mass/Vol] 1.13 mg/dL High 0.57 - 1.11 mg/dL [facility] GFR/1.73 sq M.predicted (S/P/Bld) [Vol rate/Area] 48.7 mL/min Low - PINF [facility] Comment on above: Calculation based on the Chronic Kidney Disease Epidemiology Collaboration (CKD-EPI) equation refit without adjustment for race Glucose [Mass/Vol] 134 mg/dL High 82 - 115 mg/dL [facility] Interpretation and review of laboratory results Abnormal [facility] Potassium [Moles/Vol] 4.6 mmol/L 3.5 - 5.1 mmol/L [facility] Comment on above: Plasma potassium jose ues may be up to 0.5 mmol/L lower than serum values. Sodium [Moles/Vol] 139 mmol/L 136 - 145 mmol/L [facility] Urea nitrogen [Mass/Vol] 41 mg/dL High 9 - 23 mg/dL [facility] CBC W Auto Differential pane l (Bld)on 02-06-2025 Basophils (Bld) [#/Vol] 0.1 10*3/uL 0.0 - 0.2 10*3/uL [facility] Basophils/100 WBC (Bld) 0.6 % 0.0 - 2.0 % [facility] Eosinophils (Bld) [#/Vol] 0.3 10*3/uL 0.0 - 0.5 10*3/uL [facility] Eosinophils/100 WBC (Bld) 2.4 % 0.0 - 6.0 % [facility] Erythrocyte distribution width (RBC) [Ratio] 13.2 % 11.5 - 15.0 % [facility] Hematocrit (Bld) [Volume fraction] 40.9 % 35.0 - 47.0 % [facility] Hemoglobin (Bld) [Mass/Vol] 13.1 g/dL 11.7 - 16.0 g/dL [facility] Immature granulocytes (Bld) [#/Vol] 0.2 10*3/uL High NINF - 0.1 10*3/uL [facility] Immature granulocytes/100 WBC (Bld) 1.4 % 0.0 - 2.0 % [facility] Interpretation and review of laboratory results Abnormal [facility] Lymphocytes (Bld) [#/Vol] 2.1 10*3/uL 1.0 - 4.3 10*3/uL [facility] Lymphocytes/100 WBC (Bld) 19.7 % 15.0 - 45.0 % [facility] MCH (RBC) [Entitic mass] 29.4 pg 26.0 - 34.0 pg [facility] MCHC (RBC) [Mass/Vol] 32 % 30.5 - 36.0 % [facility] MCV (RBC) [Entitic vol] 91.9 fL 77.0 - 99.0 fL [facility] Monocytes (Bld) [#/Vol] 0.7 10*3/uL 0.0 - 0.9 10*3/uL [facility] Monocytes/100 WBC (Bld) 6.8 % 5.0 - 13.0 % [facility] Neutrophils (Bld) [#/Vol] 7.3 10*3/uL 1.8 - 7.5 10*3/uL [facility] Neutrophils/100 WBC (Bld) 69.1 % 38.0 - 82.0 % [facility] Nucleated RBC/100 WBC (Bld) [Ratio] 0 % [facility] Platelet mean volume (Bld) [Entitic vol] 9.3 fL 9.0 - 12.7 fL [facility] Platelets (Bld) [#/Vol] 403 10*3/uL 140 - 440 10*3/uL [facility] RBC (Bld) [#/Vol] 4.45 10*6/uL 3.80 - 5.20 10*6/uL [facility] WBC (Bld) [#/Vol] 10.6 10*3/uL 3.6 - 10.7 10*3/uL [facility] Laboratory - Chemistry and C hemistry - challengeon 02-06-2025 Glucose [Mass/Vol] 218 mg/dL High 70 - 100 mg/dL [facility] Glucose [Mass/Vol] 182 mg/dL High 70 - 100 mg/dL [facility] Glucose [Mass/Vol] 203 mg/dL High 70 - 100 mg/dL [facility] Glucose [Mass/Vol] 139 mg/dL High 70 - 100 mg/dL [facility] No Panel Informationon 02-06 Interpretation and review of laboratory results Abnormal [facility] Performed by: Catarino Miller [facility] [address] CLIA ID: [id number] [facility] Interpretation and review of laboratory results Abnormal [facility] Performed by: Catarnio Miller [facility] [address] CLIA ID: [id number] [facility] Interpretation and review of laboratory results Abnormal [facility] Performed by: Catarino Miller [facility] [address] CLIA ID: [id number] [facility] Interpretation and review of laboratory results Abnormal [facility] Performed by: Catarino Miller [facility] [address] CLIA ID: [id number] [facility] Basic metabolic 1998 panelon 02-05-2025 Anion gap [Moles/Vol] 10 mmol/L 3 - 13 mmol/L [facility] Calcium [Mass/Vol] 9.2 mg/dL 8.8 - 10. 0 mg/dL [facility] Chloride [Moles/Vol] 109 mmol/L High 98 - 10 7 mmol/L [facility] CO2 [Moles/Vol] 21 mmol/L Low 23 - 31 mmol/L [facility] Creatinine [Mass/Vol] 0.97 mg/dL 0.57 - 1.11 mg/dL [facility] GFR/1.73 sq M.predicted (S/P/Bld) [Vol rate/Area] 58.5 mL/min Low - PINF [facility] Comment on above: Calculation based on the Chronic Kidney Disease Epidemiology Collaboration (CKD-EPI) equation refit without adjustment for race Glucose [Mass/Vol] 147 mg/dL High 82 - 115 mg/dL [facility] Interpretation and review of laboratory results Abnormal [facility] Potassium [Moles/Vol] 4.6 mmol/L 3.5 - 5.1 mmol/L [facility] Comment on above: Plasma potassium jose ues may be up to 0.5 mmol/L lower than serum values. Sodium [Moles/Vol] 140 mmol/L 136 - 145 mmol/L [facility] Urea nitrogen [Mass/Vol] 49 mg/dL High 9 - 23 mg/dL [facility] CBC W Auto Differential pane l (Bld)on 02-05-2025 Basophils (Bld) [#/Vol] 0.1 10*3/uL 0.0 - 0.2 10*3/uL [facility] Basophils/100 WBC (Bld) 0.6 % 0.0 - 2.0 % [facility] Eosinophils (Bld) [#/Vol] 0.3 10*3/uL 0.0 - 0.5 10*3/uL [facility] Eosinophils/100 WBC (Bld) 3 % 0.0 - 6.0 % [facility] Erythrocyte distribution width (RBC) [Ratio] 13.2 % 11.5 - 15.0 % [facility] Hematocrit (Bld) [Volume fraction] 40.6 % 35.0 - 47.0 % [facility] Hemoglobin (Bld) [Mass/Vol] 12.9 g/dL 11.7 - 16.0 g/dL [facility] Immature granulocytes (Bld) [#/Vol] 0.1 10*3/uL High NINF - 0.1 10*3/uL [facility] Immature granulocytes/100 WBC (Bld) 1 % 0.0 - 2.0 % [facility] Interpretation and review of laboratory results Abnormal [facility] Lymphocytes (Bld) [#/Vol] 2.1 10*3/uL 1.0 - 4.3 10*3/uL [facility] Lymphocytes/100 WBC (Bld) 25.8 % 15.0 - 45.0 % [facility] MCH (RBC) [Entitic mass] 29.5 pg 26.0 - 34.0 pg [facility] MCHC (RBC) [Mass/Vol] 31.8 % 30.5 - 36.0 % [facility] MCV (RBC) [Entitic vol] 92.7 fL 77.0 - 99.0 fL [facility] Monocytes (Bld) [#/Vol] 0.7 10*3/uL 0.0 - 0.9 10*3/uL [facility] Monocytes/100 WBC (Bld) 8.7 % 5.0 - 13.0 % [facility] Neutrophils (Bld) [#/Vol] 5 10*3/uL 1.8 - 7.5 10*3/uL [facility] Neutrophils/100 WBC (Bld) 60.9 % 38.0 - 82.0 % [facility] Nucleated RBC/100 WBC (Bld) [Ratio] 0 % [facility] Platelet mean volume (Bld) [Entitic vol] 9.2 fL 9.0 - 12.7 fL [facility] Platelets (Bld) [#/Vol] 368 10*3/uL 140 - 440 10*3/uL [facility] RBC (Bld) [#/Vol] 4.38 10*6/uL 3.80 - 5.20 10*6/uL [facility] WBC (Bld) [#/Vol] 8.3 10*3/uL 3.6 - 10.7 10*3/uL [facility] Laboratory - Chemistry and C hemistry - challengeon 02-05-2025 Glucose [Mass/Vol] 135 mg/dL High 70 - 100 mg/dL [facility] Glucose [Mass/Vol] 145 mg/dL High 70 - 100 mg/dL [facility] Glucose [Mass/Vol] 176 mg/dL High 70 - 100 mg/dL [facility] Glucose [Mass/Vol] 137 mg/dL High 70 - 100 mg/dL [facility] No Panel Informationon 02-05 Interpretation and review of laboratory results Abnormal [facility] Performed by: Heaven Crocker, [address] [place] [address] CLIA ID: [id number] [facility] Interpretation and review of laboratory results Abnormal [facility] Performed by: Heaven Crocker [address] [place] [address] CLIA ID: [id number] [facility] Interpretation and review of laboratory results Abnormal [facility] Performed by: Heaven Crocker [address] [place] [address] CLIA ID: [id number] [facility] Interpretation and review of laboratory results Abnormal [facility] Performed by: Heaven Crocker, [address] [place] [address] CLIA ID: [id number] [facility] [id number] 02-04-2025 [id number] Patient Choice Patient Name: ANSON CAPPS Date of : 1940 All Providers Sent Referral Name: Guille Pope - CPAN Member Phone: [phone] Address: [address] [place] [address] Name: [facility] Phone: [phone] Address: [address] [place] [address] Name: [facility] Phone: [phone] Address: [address] [place] [address] [facility] [phone] S/W, assist Patient and daughter requested to speak to S/W about placement. Patient and daughter both indicating they desire placement at [facility], daughter indicated under Medicaid Second choice per patient would be [facility] SNF. Case discussed with TCC. Discussed patient wishes, patient does have [facility] and could admit under her Medicaid. Therapies here recc only HHC. TCC sending referrals to [facility] and [facility]. Referral placed via [facility] to [facility]. [facility] [phone] -SW met with pt and daughter at bedside. Apparently pt has a Medicaid product available to use. They would like referrals sent to [facility] and [facility]. Pt would go to facility as an intermediate care level. -Tasked MANAGER UTILITY to send those referrals. -horse stud manager to follow for facility responses and assist as needed. -SW to continue to follow as well. [facility] [phone] -Was informed by bed side RN of patient want to go to [facility]. -PT/OT recommending home with [facility]. Pt will not qualify for SNF. Pt also refused to work with PT this morning. -Informed pt and daughter Brigitte ([phone]) of this information. Both were extremely unhappy that we can't send her to [facility] for SNF. Informed both of them that pt could pay out of pocket for SNF and privately pay for home health aids, both who stated they can not afford. Brigitte and pt both stated they are in the process of setting up respite care at [facility] through [facility], a process that they started last week before this admission. Instructed both pt and daughter to continue pursuing that process. Both verbalized understanding. -Daughter Brigitte was so unhappy that she stated I will not sampler pickup my mother once she is discharged, due to her feeling pt is not capable for caring for herself. Brigitte states the family is tired and need a break. Again instructed Brigitte to follow through with the respite plans. -This CM did mistakenly tell the pt and daughter of pt's Medicare rights with appealing her discharge. Both stated they are planning on appealing the discharge. However, pt is in observation status, and can not appeal her discharge. A patient can not appeal while in observation status. She will have to go home with [facility] once discharged. Informed pt of this CM's mistake and informed her she will not be able to appeal. She verbalized understanding. -Discharge plan will be home with [facility] with pt and family finishing the respite care process on their own. -horse stud manager to follow and assist as needed. Normal [facility] BASIC METABOLIC PANELon 07- Anion gap [Moles/Vol] 10 mmol/L Normal 3-13 [facility] Comment on above: Performed By: #### L [id number] ####Senior Treasury Analyst: VALENTIN PINA ([phone])[facility] ([facility])[address] Calcium [Mass/Vol] 9.2 mg/dL Normal 8.8-10.0 [facility] Comment on above: Performed By: #### L [id number] ####Senior Treasury Analyst: VALENTIN PINA ([id number])[facility] ([facility])[address] Chloride [Moles/Vol] 109 mmol/L High 98-107 [facility] Comment on above: Performed By: #### L [id number] ####Senior Treasury Analyst: VALENTIN PINA ([phone])[facility] ([facility])[address] CO2 [Moles/Vol] 22 mmol/L Low 23-31 [facility] Comment on above: Performed By: #### L [id number] ####Senior Treasury Analyst: VALENTIN PINA ([phone])[facility] ([facility])[address] Creatinine [Mass/Vol] 1.13 mg/dL High 0.57-1.11 [facility] Comment on above: Performed By: #### L [id number] ####Senior Treasury Analyst: VALENTIN PINA ([phone])[facility] ([facility])[address] GLOMERULAR FILTRATION RATE ML/MIN/1.73 SQ M.PREDICTED 48.7 mL/min/1.73m*2 Low >60.0 [facility] Comment on above: Result Comment: Calc ulation based on the Chronic Kidney Disease Epidemiology Collaboration (CKD-EPI) equation refit without adjustment for race Performed By: #### L [id number] ####Senior Treasury Analyst: VALENTIN PINA ([phone])[facility] ([facility])[address] [place] [address] [place] Glucose [Mass/Vol] 141 mg/dL High 82-115 [facility] Comment on above: Performed By: #### L [id number] ####Senior Treasury Analyst: VALENTIN PINA ([phone])[facility] ([facility])[address] [place] [address] [place] Potassium [Moles/Vol] 4.6 mmol/L Normal 3.5-5.1 [facility] Comment on above: Result Comment: [facility] potassium values may be up to 0.5 mmol/L lower than serum values. Performed By: #### L [id number] ####Senior Treasury Analyst: VALENTIN PINA ([phone])[facility] ([facility])[address] Sodium [Moles/Vol] 141 mmol/L Normal 136-145 [facility] Comment on above: Performed By: #### L [id number] ####Senior Treasury Analyst: VALENTIN ABILIOFREIDA ([phone])[facility] ([facility])[address] Urea nitrogen [Mass/Vol] 49 mg/dL High 9-23 [facility] Comment on above: Performed By: #### L [id number] ####Senior Treasury Analyst: VALENTIN SINGHKELLY ([phone])[facility] ([facility])[address] Basic metabolic 1998 panelon 02-04-2025 Anion gap [Moles/Vol] 10 mmol/L 3 - 13 mmol/L [facility] Calcium [Mass/Vol] 9.2 mg/dL 8.8 - 10. 0 mg/dL [facility] Chloride [Moles/Vol] 109 mmol/L High 98 - 10 7 mmol/L [facility] CO2 [Moles/Vol] 22 mmol/L Low 23 - 31 mmol/L [facility] Creatinine [Mass/Vol] 1.13 mg/dL High 0.57 - 1.11 mg/dL [facility] GFR/1.73 sq M.predicted (S/P/Bld) [Vol rate/Area] 48.7 mL/min Low - PINF [facility] Comment on above: Calculation based on the Chronic Kidney Disease Epidemiology Collaboration (CKD-EPI) equation refit without adjustment for race Glucose [Mass/Vol] 141 mg/dL High 82 - 115 mg/dL [facility] Interpretation and review of laboratory results Abnormal [facility] Potassium [Moles/Vol] 4.6 mmol/L 3.5 - 5.1 mmol/L [facility] Comment on above: Plasma potassium jose ues may be up to 0.5 mmol/L lower than serum values. Sodium [Moles/Vol] 141 mmol/L 136 - 145 mmol/L [facility] Urea nitrogen [Mass/Vol] 49 mg/dL High 9 - 23 mg/dL [facility] CBC W Auto Differential pane l (Bld)on 02-04-2025 Basophils (Bld) [#/Vol] 0.1 10*3/uL 0.0 - 0.2 10*3/uL [facility] Basophils/100 WBC (Bld) 0.8 % 0.0 - 2.0 % [facility] Eosinophils (Bld) [#/Vol] 0.2 10*3/uL 0.0 - 0.5 10*3/uL [facility] Eosinophils/100 WBC (Bld) 2.5 % 0.0 - 6.0 % [facility] Erythrocyte distribution width (RBC) [Ratio] 13.2 % 11.5 - 15.0 % [facility] Hematocrit (Bld) [Volume fraction] 40.9 % 35.0 - 47.0 % [facility] Hemoglobin (Bld) [Mass/Vol] 13.1 g/dL 11.7 - 16.0 g/dL [facility] Immature granulocytes (Bld) [#/Vol] 0.1 10*3/uL High NINF - 0.1 10*3/uL [facility] Immature granulocytes/100 WBC (Bld) 1.1 % 0.0 - 2.0 % [facility] Interpretation and review of laboratory results Abnormal [facility] Lymphocytes (Bld) [#/Vol] 2.5 10*3/uL 1.0 - 4.3 10*3/uL [facility] Lymphocytes/100 WBC (Bld) 28.8 % 15.0 - 45.0 % [facility] MCH (RBC) [Entitic mass] 30 pg 26.0 - 34.0 pg [facility] MCHC (RBC) [Mass/Vol] 32 % 30.5 - 36.0 % [facility] MCV (RBC) [Entitic vol] 93.8 fL 77.0 - 99.0 fL [facility] Monocytes (Bld) [#/Vol] 0.7 10*3/uL 0.0 - 0.9 10*3/uL [facility] Monocytes/100 WBC (Bld) 8.7 % 5.0 - 13.0 % [facility] Neutrophils (Bld) [#/Vol] 4.9 10*3/uL 1.8 - 7.5 10*3/uL [facility] Neutrophils/100 WBC (Bld) 58.1 % 38.0 - 82.0 % [facility] Nucleated RBC/100 WBC (Bld) [Ratio] 0 % [facility] Platelet mean volume (Bld) [Entitic vol] 9 fL 9.0 - 12.7 fL [facility] Platelets (Bld) [#/Vol] 400 10*3/uL 140 - 440 10*3/uL [facility] RBC (Bld) [#/Vol] 4.36 10*6/uL 3.80 - 5.20 10*6/uL [facility] WBC (Bld) [#/Vol] 8.5 10*3/uL 3.6 - 10.7 10*3/uL [facility] CBC WITH AUTO DIFFERENTIALon 02-04-2025 Basophils (Bld) [#/Vol] 0.1 10*3/uL Normal 0.0-0.2 [facility] Comment on above: Performed By: #### L [id number] ####Senior Treasury Analyst: VALENTIN PINA ([phone])[facility] ([facility])[address] [place] [address] Basophils/100 WBC (Bld) 0.8 % Normal 0.0-2.0 [facility] Comment on above: Performed By: #### L [id number] ####Senior Treasury Analyst: VALENTIN PINA ([phone])[facility] ([facility])[address] [place] [address] Eosinophils (Bld) [#/Vol] 0.2 10*3/uL Normal 0.0-0.5 [facility] Comment on above: Performed By: #### L [id number] ####Senior Treasury Analyst: VALENTIN PINA ([id number])[facility] ([facility] [place] [address] Eosinophils/100 WBC (Bld) 2.5 % Normal 0.0-6.0 [facility] Comment on above: Performed By: #### L [id number] ####Senior Treasury Analyst: VALENTIN PINA ([phone])[facility] ([facility])[address] [place] [address] Erythrocyte distribution width (RBC) [Ratio] 13.2 % Normal 11.5-15.0 [facility] Comment on above: Performed By: #### L [id number] ####Senior Treasury Analyst: VALENTIN KNOXFREIDA ([id number])[facility] ([facility])[address] [place] [address] Hematocrit (Bld) [Volume fraction] 40.9 % Normal 35.0-47.0 [facility] Comment on above: Performed By: #### L [id number] ####Senior Treasury Analyst: VALENTIN SINGHKELLY ([id number])[facility] ([facility])[address] [place] [address] Hemoglobin (Bld) [Mass/Vol] 13.1 g/dL Normal 11.7-16.0 [facility] Comment on above: Performed By: #### L [id number] ####Senior Treasury Analyst: VALENTIN KNOXFREIDA ([phone])[facility] ([facility])[address] [place] [address] IMMATURE GRANS % 1.1 % Normal 0.0-2.0 [facility] Comment on above: Performed By: #### L [id number] ####Senior Treasury Analyst: VALENTIN PINA ([id number])[facility] ([facility])[address] [place] [address] IMMATURE GRANS ABSOLUTE 0.1 10*3/uL High <0.1 [facility] Comment on above: Performed By: #### L [id number] ####Senior Treasury Analyst: VALENTIN PINA ([id number])[facility] ([facility])[address] [place] [address] Lymphocytes (Bld) [#/Vol] 2.5 10*3/uL Normal 1.0-4.3 [facility] Comment on above: Performed By: #### L [id number] ####Senior Treasury Analyst: VALENTIN KNOXFREIDA ([phone])[facility] [place] [address] Lymphocytes/100 WBC (Bld) 28.8 % Normal 15.0-45.0 [facility] Comment on above: Performed By: #### L [id number] ####Senior Treasury Analyst: VALENTIN SINGHAdelsoFREIDA ([id number])[facility] [place] ([facility])[address] MCH (RBC) [Entitic mass] 30.0 pg Normal 26.0-34.0 [facility] Comment on above: Performed By: #### L [id number] ####Senior Treasury Analyst: VALENTIN SILVANA ([id number])[facility] (SBHLAB)[address] MCHC 32.0 % Normal 30.5-36.0 [facility] Comment on above: Performed By: #### L [id number] ####Senior Treasury Analyst: VALENTIN SILVANA ([id number])[facility] ([facility])[address] [place] [address] MCV (RBC) [Entitic vol] 93.8 fL Normal 77.0-99.0 [facility] Comment on above: Performed By: #### L [id number] ####Senior Treasury Analyst: VALENTIN SINGHAdelsoFREIDA ([id number])[facility] (SB[facility]AB)[address] Monocytes (Bld) [#/Vol] 0.7 10*3/uL Normal 0.0-0.9 [facility] Comment on above: Performed By: #### L [id number] ####Senior Treasury Analyst: VALENTIN KNOXFREIDA ([id number])[facility] ([facility])[address] Monocytes/100 WBC (Bld) 8.7 % Normal 5.0-13.0 [facility] Comment on above: Performed By: #### L [id number] ####Senior Treasury Analyst: VALENTIN KNOXFREIDA ([id number])[facility] (SB[facility])[address] NEUTROPHILS ABSOLUTE 4.9 10*3/uL Normal 1.8-7.5 [facility] Comment on above: Performed By: #### L [id number] ####Senior Treasury Analyst: VALENTIN PINA ([id number])[facility] [place] (SB[facility])[address] Neutrophils/100 WBC (Bld) 58.1 % Normal 38.0-82.0 [facility] Comment on above: Performed By: #### L [id number] ####Senior Treasury Analyst: VALENTIN PINA ([id number])[facility] [place] ([facility])[address] NRBC 0.0 /100 WBCs Normal 0.0-2.[address] [facility] Comment on above: Performed By: #### L [id number] ####Senior Treasury Analyst: VALENTIN PINA ([id number])[facility] [place] (SB[facility])[address] Platelet mean volume (Bld) [Entitic vol] 9.0 fL Normal 9.0-12.7 [facility] Comment on above: Performed By: #### L [id number] ####Senior Treasury Analyst: VALENTIN PINA ([id number])[facility] [place] (SB[facility])155 [place] [address] [place] Platelets (Bld) [#/Vol] 400 10*3/uL Normal 140-440 [facility] Comment on above: Performed By: #### L [id number] ####Senior Treasury Analyst: VALENTIN PINA ([id number])[facility] [place] ([facility])[address] [place] [address] [place] RBC (Bld) [#/Vol] 4.36 10*6/uL Normal 3.80-5.20 [facility] Comment on above: Performed By: #### L [id number] ####Senior Treasury Analyst: VALENTIN PINA ([id number])[facility] [place] ([facility])[address] WBC (Bld) [#/Vol] 8.5 10*3/uL Normal 3.6-10.7 [facility] Comment on above: Performed By: #### L [id number] ####Senior Treasury Analyst: VALENTIN PINA ([id number])[facility] [place] (SBHLAB)[address] [place] [address] Laboratory - Chemistry and C hemistry - challengeon 02-04-2025 Glucose [Mass/Vol] 137 mg/dL High 70 - 100 mg/dL [facility] Glucose [Mass/Vol] 147 mg/dL High 70 - 100 mg/dL [facility] Glucose [Mass/Vol] 135 mg/dL High 70 - 100 mg/dL [facility] Glucose [Mass/Vol] 194 mg/dL High 70 - 100 mg/dL [facility] Laboratory - Drug toxicology on 02-04-2025 Vancomycin trough [Mass/Vol] 11.8 ug/mL [facility] No Panel Informationon 02-04 Interpretation and review of laboratory results Abnormal [facility] Performed by: [facility], [address] [place] [address] CLIA ID: [id number] [facility] Interpretation and review of laboratory results Abnormal [facility] Performed by: [facility] [address] [place] [address] CLIA ID: [id number] [facility] Interpretation and review of laboratory results Abnormal [facility] Performed by: [facility] [place] [address] CLIA ID: [id number] [facility] Interpretation and review of laboratory results Abnormal [facility] Performed by: [facility] [place] [address] CLIA ID: [id number] [facility] Progress Noteon 02-04-2025 Progress Note OCCUPATIONAL THERAPY [facility] Name/MRN: Anson A Mohsen ([id number]) Date: 02/04/2025 Pt chart reviewed, okay to see per RN. Pt adamantly declined therapy despite max encouragement. Unable to encourage ARIEL Quiles [facility] Progress Note PHYSICAL THERAPY [facility] Name/MRN: Anson A Mohsen ([id number]) Date: 02/04/2025 Introduced self and role, pt adamantly decline therapy, will re attempt as schedule permits Ricardo Garza, PT [facility] VANCOMYCIN, AUC TIMED DOSING on 02-04-2025 VANCOMYCIN, AUC 11.8 ug/mL Normal [facility] Comment on above: Result Comment: MAGGIE Gipson COMMENTS: Please draw random level at least >2 hours after the end of the last vancomycin infusion, or 30-minutes before next infusion. Toxicity is seen at concentrations >80-100 ug/mL Therapeutic (Peak) range: 20-40 Therapeutic (Trough) range: 5-10 Performed By: #### L [id number] ####Senior Treasury Analyst: VALENTIN PINA ([id number])[facility] ([facility])[address] [place] [address] Vancomycin trough [Mass/Vol] on 02-04-2025 Toxicity is seen at concentrations >80-100 ug/mL Therapeutic (Peak) range: 20-40 Therapeutic (Trough) range: 5-10 [facility] 30on 02-03-2025 30 Problem: Pain - Adul t Goal: Verbalizes/displays adequate comfort level or baseline comfort level Outcome: Progressing Problem: Safety - Adult Goal: Free from fall injury Outcome: Progressing Problem: Discharge Planning Goal: Discharge to home or other facility with appropriate resources Outcome: Progressing Problem: Chronic Conditions and Co-morbidities Goal: Patient's chronic conditions and co-morbidity symptoms are monitored and maintained or improved Outcome: Progressing Problem: Problem Interventions Goal: Promote nutritional intake Outcome: Progressing Normal [facility] 30 Problem: Pain - Adul t Goal: Verbalizes/displays adequate comfort level or baseline comfort level Outcome: Progressing Problem: Safety - Adult Goal: Free from fall injury Outcome: Progressing Problem: Discharge Planning Goal: Discharge to home or other facility with appropriate resources Outcome: Progressing Problem: Chronic Conditions and Co-morbidities Goal: Patient's chronic conditions and co-morbidity symptoms are monitored and maintained or improved Outcome: Progressing Problem: Problem Interventions Goal: Promote nutritional intake Outcome: Progressing [facility] [id number] 02-03-2025 [id number] spoke with pt's bhanu Crook -- she mentioned that pt is with [facility] and was working on getting more services set up -- pt lives alone. Currently she has an aide on Mon and Fri. Msg sent to [facility] for someone to reach out to to check on status and to leave a private duty list at bedside in case family would have to go that route. Start PACC Note Home Health Referral Educated patient's dtr Ambreen on Home Care and services available. Patient offered choice of available HHC and agreeable to RN PT OT DISABILITY CASE MANAGER SW services with [facility] - Home Care. Care Types: None Isolation Precautions: No active isolations Social Determinates of Health: Tobacco Use: Low Risk (02/01/2025) Patient History Smoking Tobacco Use: Never Smokeless Tobacco Use: Never Passive Exposure: Not on file Social History Substance and Sexual Activity Alcohol Use Not Currently Social History Substance and Sexual Activity Drug Use Never Does the patient have any financial resource strain? No Does the patient have any food insecurities? No Does the patient have any housing instabilities? No If any of the above is noted as yes - consider a BOREMATIC OPERATOR evaluation once the patient returns home. START PATIENT REGISTRATION INFORMATION Order Information Order Signing Physician: Baldomero Gates MD Service Ordered RN ?: Yes Service Ordered PT ?: Yes Service Ordered OT ?: Yes Service Ordered ST ?: No Service Ordered BOREMATIC OPERATOR?:Yes Service Ordered DISABILITY CASE MANAGER?: Yes Following Physician: Jamie Schroeder Following Physician Overseeing Physician: Jamie Schroeder (Required for Residents only) Agreeable to Follow? Yes Date/Time of Call 02/03/25 11:12 AM, Spoke with: Anaya Care Coordination Same Day SOC?: No Primary Care Physician: Jamie Schroeder Primary Care Physician Primary Care Physician Address: [address] [facility] [address] Visit Instructions: N/A Service Discharge Location Type: Home with Home Care Service Facility Name: N/A Service Floor Facility: N/A Service Room No: N/A Demographics Patient Last Name: Mohsen Patient First Name: Anson Language/Communication Barrier: n/a Service Address: [address] [place] Service City: [facility] ST: [place]IP: [address] Service (home) Other phone numbers: No relevant phone numbers on file. Emergency Contact: Extended Emergency Contact Information Primary Emergency Contact: Ambreen Dai Mobile Relation: Daughter Secondary Emergency Contact: Gabriel Dias Mobile Relation: Daughter Admission Information Admit Date: 01/31/2025 Patient status at discharge: Inpatient Admitting Diagnosis: Open knee wound, right, initial encounter [S81.001A] Caregiver Information Caregiver First Name: Ambreen Caregiver Last Name: Kirsty Caregiver Relationship to Patient dtr Caregiver Caregiver Notes: N/A [employer] List No END PATIENT REGISTRATION INFORMATION Pt Home Health goal rehab at home COVID Status 1. Do you have any upper respiratory symptoms (cough, SOB, Fever)? No 2. Have you been exposed to anyone with COVID-19 Virus? No Answer only if pending or positive for COVID-19? 1. Agreeable to wear PPE at each visit? No 2. Is the hospital supplying them with PPE upon Discharge? No Start PACC Summary General Report/ Additional Comments N/a Discharge Date: pending Referral Source-PACC: (Hospital/Unit): [facility] / / A End PACC Note Normal [facility] [id number] 02-03-2025 [id number] S/W, DH Call placed again to [facility] to request increased aide help in the home. I did speak with coverage with this request, they will forward the request to patient Jonas Oviedo. Normal [facility] BASIC METABOLIC PANELon 07- Anion gap [Moles/Vol] 10 mmol/L Normal 3-13 [facility] Comment on above: Performed By: #### L AB19, LAB62, LAB15 #### Senior Treasury Analyst: VALENTIN PINA ([id number]) [facility] ([facility]) [address] [place] [address] Order Comment: Awilda charlton add on to collected specimen Performed By: #### L AB19, LAB62, LAB15 ####Senior Treasury Analyst: VALENTIN PINA ([id number])[facility] (SBHLAB)[address] Calcium [Mass/Vol] 8.5 mg/dL Low 8.8-10.0 [facility] Comment on above: Performed By: #### L AB19, LAB62, LAB15 #### Senior Treasury Analyst: VALENTIN PINA ([id number]) [facility] [place] ([facility]) [address] Order Comment: Awilda charlton add on to collected specimen Performed By: #### L AB19, LAB62, LAB15 ####Senior Treasury Analyst: VALENTIN PINA ([id number])[facility] [place] ([facility])[address] Chloride [Moles/Vol] 109 mmol/L High 98-107 [facility] Comment on above: Performed By: #### Faith MALDONADO, LAB62, LAB15 #### Senior Treasury Analyst: VALENTIN PINA ([id number]) [facility] ([facility]) [address] CO2 [Moles/Vol] 22 mmol/L Low 23-31 [facility] Comment on above: Performed By: #### Faith MALDONADO, LAB62, LAB15 #### Senior Treasury Analyst: VALENTIN PINA ([id number]) [facility] [place] ([facility]) [address] Creatinine [Mass/Vol] 1.22 mg/dL High 0.57-1.11 [facility] Comment on above: Performed By: #### L AB19, LAB62, LAB15 #### Senior Treasury Analyst: VALENTIN PINA ([id number]) [facility] [place] ([facility]) [address] GLOMERULAR FILTRATION RATE ML/MIN/1.73 SQ M.PREDICTED 44.4 mL/min/1.73m*2 Low >60.0 [facility] Comment on above: Result Comment: Calc ulation based on the Chronic Kidney Disease Epidemiology Collaboration (CKD-EPI) equation refit without adjustment for race Performed By: #### L AB19, LAB62, LAB15 #### Senior Treasury Analyst: VALENTIN PINA ([id number]) [facility] ([facility]) [address] Glucose [Mass/Vol] 217 mg/dL High 82-115 [facility] Comment on above: Performed By: #### L AB19, LAB62, LAB15 #### Senior Treasury Analyst: VALENTIN PINA ([id number]) [facility] (HLAB) [address] Potassium [Moles/Vol] 4.8 mmol/L Normal 3.5-5.1 [facility] Comment on above: Result Comment: [facility] potassium values may be up to 0.5 mmol/L lower than serum values. Performed By: #### L AB19, LAB62, LAB15 #### Senior Treasury Analyst: VALENTIN PINA ([id number]) [facility] ([facility]) [address] Order Comment: Pleas e add on to collected specimen Performed By: #### L AB19, LAB62, LAB15 ####Senior Treasury Analyst: VALENTIN PINA ([id number])[facility] ([facility])[address] [place] [address] Sodium [Moles/Vol] 141 mmol/L Normal 136-145 [facility] Comment on above: Performed By: #### L AB19, LAB62, LAB15 #### Senior Treasury Analyst: VALENTIN PINA ([id number]) [facility] ([facility]) [address] Order Comment: Pleas e add on to collected specimen Performed By: #### L AB19, LAB62, LAB15 ####Senior Treasury Analyst: VALENTIN PINA ([id number])[facility] ([facility])[address] Urea nitrogen [Mass/Vol] 46 mg/dL High 9-23 [facility] Comment on above: Performed By: #### L AB19, LAB62, LAB15 #### Senior Treasury Analyst: VALENTIN PINA ([id number]) [facility] ([facility]) [address] Basic metabolic 1998 panelon 02-03-2025 Anion gap [Moles/Vol] 10 mmol/L 3 - 13 mmol/L [facility] Calcium [Mass/Vol] 8.5 mg/dL Low 8.8 - 10. 0 mg/dL [facility] Chloride [Moles/Vol] 109 mmol/L High 98 - 10 7 mmol/L [facility] CO2 [Moles/Vol] 22 mmol/L Low 23 - 31 mmol/L [facility] Creatinine [Mass/Vol] 1.22 mg/dL High 0.57 - 1.11 mg/dL [facility] GFR/1.73 sq M.predicted (S/P/Bld) [Vol rate/Area] 44.4 mL/min Low - PINF [facility] Comment on above: Calculation based on the Chronic Kidney Disease Epidemiology Collaboration (CKD-EPI) equation refit without adjustment for race Glucose [Mass/Vol] 217 mg/dL High 82 - 115 mg/dL [facility] Interpretation and review of laboratory results Abnormal [facility] Potassium [Moles/Vol] 4.8 mmol/L 3.5 - 5.1 mmol/L [facility] Comment on above: Plasma potassium jose ues may be up to 0.5 mmol/L lower than serum values. Sodium [Moles/Vol] 141 mmol/L 136 - 145 mmol/L [facility] Urea nitrogen [Mass/Vol] 46 mg/dL High 9 - 23 mg/dL [facility] CBC W Auto Differential pane l (Bld)Ordered By: Ivelisse Quevedo on 02-03-2025 Basophils (Bld) [#/Vol] 0.1 10*3/uL 0.0 - 0.2 10*3/uL [facility] Basophils/100 WBC (Bld) 0.7 % 0.0 - 2.0 % [facility] Eosinophils (Bld) [#/Vol] 0.1 10*3/uL 0.0 - 0.5 10*3/uL [facility] Eosinophils/100 WBC (Bld) 1.4 % 0.0 - 6.0 % [facility] Erythrocyte distribution width (RBC) [Ratio] 13.5 % 11.5 - 15.0 % [facility] Hematocrit (Bld) [Volume fraction] 41.1 % 35.0 - 47.0 % [facility] Hemoglobin (Bld) [Mass/Vol] 12.5 g/dL 11.7 - 16.0 g/dL [facility] Immature granulocytes (Bld) [#/Vol] 0.1 10*3/uL High NINF - 0.1 10*3/uL [facility] Health Immature granulocytes/100 WBC (Bld) 1.1 % 0.0 - 2.0 % [facility] Interpretation and review of laboratory results Abnormal [facility] Lymphocytes (Bld) [#/Vol] 2.1 10*3/uL 1.0 - 4.3 10*3/uL [facility] Lymphocytes/100 WBC (Bld) 24.8 % 15.0 - 45.0 % [facility] MCH (RBC) [Entitic mass] 29.3 pg 26.0 - 34.0 pg [facility] MCHC (RBC) [Mass/Vol] 30.4 % Low 30.5 - 36.0 % [facility] MCV (RBC) [Entitic vol] 96.3 fL 77.0 - 99.0 fL [facility] Monocytes (Bld) [#/Vol] 0.7 10*3/uL 0.0 - 0.9 10*3/uL [facility] Monocytes/100 WBC (Bld) 8.3 % 5.0 - 13.0 % [facility] Neutrophils (Bld) [#/Vol] 5.4 10*3/uL 1.8 - 7.5 10*3/uL [facility] Neutrophils/100 WBC (Bld) 63.7 % 38.0 - 82.0 % [facility] Nucleated RBC/100 WBC (Bld) [Ratio] 0 % [facility] Platelet mean volume (Bld) [Entitic vol] 9.3 fL 9.0 - 12.7 fL [facility] Platelets (Bld) [#/Vol] 363 10*3/uL 140 - 440 10*3/uL [facility] RBC (Bld) [#/Vol] 4.27 10*6/uL 3.80 - 5.20 10*6/uL [facility] WBC (Bld) [#/Vol] 8.5 10*3/uL 3.6 - 10.7 10*3/uL [facility] CBC WITH AUTO DIFFERENTIALon 02-03-2025 Basophils (Bld) [#/Vol] 0.1 10*3/uL Normal 0.0-0.2 [facility] Comment on above: Performed By: #### L [id number] ####Senior Treasury Analyst: VALENTIN PINA ([id number])[facility] [place] ([facility])[address] Basophils/100 WBC (Bld) 0.7 % Normal 0.0-2.0 [facility] Comment on above: Performed By: #### L [id number] ####Senior Treasury Analyst: VALENTIN PINA ([id number])[facility] [place] ([facility])[address] [place] [address] Eosinophils (Bld) [#/Vol] 0.1 10*3/uL Normal 0.0-0.5 [facility] Comment on above: Performed By: #### L [id number] ####Senior Treasury Analyst: VALENTIN PINA ([id number])[facility] [place] ([facility])[address] [place] [address] Eosinophils/100 WBC (Bld) 1.4 % Normal 0.0-6.0 [facility] Comment on above: Performed By: #### L [id number] ####Senior Treasury Analyst: VALENTIN PINA ([id number])[facility] [place] ([facility])[address] [place] [address] Erythrocyte distribution width (RBC) [Ratio] 13.5 % Normal 11.5-15.0 [facility] Comment on above: Performed By: #### L [id number] ####Senior Treasury Analyst: VALENTIN PINA ([id number])[facility] [place] ([facility])[address] [place] [address] Hematocrit (Bld) [Volume fraction] 41.1 % Normal 35.0-47.0 [facility] Comment on above: Performed By: #### L [id number] ####Senior Treasury Analyst: VALENTIN PINA ([id number])[facility] [place] ([facility])[address] Hemoglobin (Bld) [Mass/Vol] 12.5 g/dL Normal 11.7-16.0 [facility] Comment on above: Performed By: #### L [id number] ####Senior Treasury Analyst: VALENTIN PINA ([id number])[facility] ([facility])[address] IMMATURE GRANS % 1.1 % Normal 0.0-2.0 [facility] Comment on above: Performed By: #### L [id number] ####Senior Treasury Analyst: VALENTIN PINA ([id number])[facility] ([facility])[address] IMMATURE GRANS ABSOLUTE 0.1 10*3/uL High <0.1 [facility] Comment on above: Performed By: #### L [id number] ####Senior Treasury Analyst: VALENTIN PINA ([id number])[facility] ([facility])[address] Lymphocytes (Bld) [#/Vol] 2.1 10*3/uL Normal 1.0-4.3 [facility] Comment on above: Performed By: #### L [id number] ####Senior Treasury Analyst: VALENTIN PINA ([id number])[facility] ([facility])[address] Lymphocytes/100 WBC (Bld) 24.8 % Normal 15.0-45.0 [facility] Comment on above: Performed By: #### L [id number] ####Senior Treasury Analyst: VALENTIN PINA ([id number])[facility] ([facility])[address] MCH (RBC) [Entitic mass] 29.3 pg Normal 26.0-34.0 [facility] Comment on above: Performed By: #### L [id number] ####Senior Treasury Analyst: VALENTIN PINA ([id number])[facility] [place] (SB[facility]AB)[address] MCHC 30.4 % Low 30.5-36.0 [facility] Comment on above: Performed By: #### L [id number] ####Senior Treasury Analyst: VALENTIN SINGHAdelsoFREIDA ([id number])[facility] [place] (SB[facility])[address] MCV (RBC) [Entitic vol] 96.3 fL Normal 77.0-99.0 [facility] Comment on above: Performed By: #### L [id number] ####Senior Treasury Analyst: VALENTIN PINA ([id number])[facility] [place] ([facility])[address] Monocytes (Bld) [#/Vol] 0.7 10*3/uL Normal 0.0-0.9 [facility] Comment on above: Performed By: #### L [id number] ####Senior Treasury Analyst: VALENTIN PINA ([id number])[facility] [place] ([facility])[address] Monocytes/100 WBC (Bld) 8.3 % Normal 5.0-13.0 [facility] Comment on above: Performed By: #### L [id number] ####Senior Treasury Analyst: VALENTIN PINA ([id number])[facility] [place] ([facility])[address] NEUTROPHILS ABSOLUTE 5.4 10*3/uL Normal 1.8-7.5 [facility] Comment on above: Performed By: #### L [id number] ####Senior Treasury Analyst: VALENTIN PINA ([id number])[facility] [place] ([facility])[address] Neutrophils/100 WBC (Bld) 63.7 % Normal 38.0-82.0 [facility] Comment on above: Performed By: #### L [id number] ####Senior Treasury Analyst: VALENTIN PINA ([id number])[facility] [place] ([facility])[address] NRBC 0.0 /100 WBCs Normal 0.0-2.[address] [facility] Comment on above: Performed By: #### L [id number] ####Senior Treasury Analyst: VALENTIN PINA ([id number])[facility] ([facility])[address] Platelet mean volume (Bld) [Entitic vol] 9.3 fL Normal 9.0-12.7 [facility] Comment on above: Performed By: #### L [id number] ####Senior Treasury Analyst: VALENTIN PINA ([id number])[facility] ([facility])[address] Platelets (Bld) [#/Vol] 363 10*3/uL Normal 140-440 [facility] Comment on above: Performed By: #### L [id number] ####Senior Treasury Analyst: VALENTIN PINA ([id number])[facility] (SBHLAB)[address] [place] [address] RBC (Bld) [#/Vol] 4.27 10*6/uL Normal 3.80-5.20 [facility] Comment on above: Performed By: #### L [id number] ####Senior Treasury Analyst: VALENTIN PINA ([id number])[facility] (SBHLAB)[address] [place] [address] WBC (Bld) [#/Vol] 8.5 10*3/uL Normal 3.6-10.7 [facility] Comment on above: Performed By: #### L [id number] ####Senior Treasury Analyst: VALENTIN PINA ([id number])[facility] (SBHLAB)[address] 02-03-2025 CK [Catalytic activity/Vol] 97 U/L Normal 30-185 [facility] Comment on above: Performed By: #### L AB19, LAB62, LAB15 ####Senior Treasury Analyst: VALENTIN PINA ([id number])[facility] (SBHLAB)[address] CK [Catalytic activity/Vol]o n 02-03-2025 Interpretation and review of laboratory results Normal [facility] CULTURE, AEROBIC BACTERIA WI TH GRAM STAINon 02-03-2025 CULTURE, AEROBIC BACTERIA WITH GRAM STAIN CULTURE Reference Few skin stormy present GRAM STAIN RESULT (A) Reference (A) Few Polymorphonuclear leukocytes per low power field Few Gram positive cocci [ S = SUSCEPTIBLE R = RESISTANT I = INTERMEDIATE S-DD = Susceptible-dose dependent NS = Non-susceptible NO = No Interpretation ] Normal [facility] Comment on above: Performed By: #### L [id number] #### Senior Treasury Analyst: KECIA PICKETT ([id number]) [facility] (SACLAB) [address] Consulton 02-03-2025 Consult Pharmacy Managed Vancomycin Dosing Service Consult Note Consult Date: 02/03/25 Patient Name: Anson Capps Allergies: Iron, Pregabalin, Tetracyclines & related, Amlodipine, and Codeine Age: 84 y.o. Sex: female Estimated body mass index is 24.61 kg/m? as calculated from the following: Height as of this encounter: 1.524 m (5'). Weight as of this encounter: 57.2 kg (126 lb). Lab Results Component Value Date CREATININE 1.22 (H) 02/03/2025 CREATININE 1.24 (H) 02/03/2025 BUN 46 (H) 02/03/2025 BUN 48 (H) 02/03/2025 WBC 8.5 02/03/2025 WBC 10.1 02/02/2025 Calculated CrCl: 30 mL/min Consulted By: Dr. Gates Infectious Diagnosis: SSTI (AUC Goal 400-600 mg/L*hr) Antimicrobials: Patient recently received an antibiotic (last 12 hours) Date/Time Action Medication Dose Rate 02/03/25 1337 New Bag ceFAZolin (Ancef) 1,000 mg in sodium chloride 0.9 % 50 mL IVPB 1,000 mg 100 mL/hr 02/03/25 0604 New Bag ceFAZolin (Ancef) 1,000 mg in sodium chloride 0.9 % 50 mL IVPB 1,000 mg 100 mL/hr Assessment/Plan: Doses, serum creatinine, and vancomycin levels interfaced automatically to [email or web address] and data has been analyzed and interpreted. Start Vancomycin 750 mg Q 24 hours based on patient age, weight, renal function, and infectious diagnosis (13 mg/kg). Predicted AUC = 475 mg/L*hr (goal 400-600 mg/L*hr) Will assess level on 02/04 and adjust as appropriate. Trend serum creatinine. Orders placed. Thank you for this consult. Please secure text or call with questions. DATE: 02/03/25 TIME: 2:39 PM Viv Crane [facility] Clinical Pharmacist Available via Secure Chat [facility] ECG 12-LEADon 02-03-2025 ECG 12-LEAD IMPRESSION: Sinus tachycardia Borderline prolonged FL interval Low voltage, extremity and precordial leads Consider anteroseptal infarct Electronically Signed On 02-03-2025 07:42:45 EDT by Edgar Thorpe [facility] Laboratory - Chemistry and C hemistry - challengeon 02-03-2025 Glucose [Mass/Vol] 93 mg/dL 70 - 100 mg/dL [facility] Glucose [Mass/Vol] 187 mg/dL High 70 - 100 mg/dL [facility] Glucose [Mass/Vol] 178 mg/dL High 70 - 100 mg/dL [facility] Glucose [Mass/Vol] 123 mg/dL High 70 - 100 mg/dL [facility] Albumin [Mass/Vol] 3 g/dL Low 3.4 - 4.8 g/dL [facility] Anion gap [Moles/Vol] 10 mmol/L 3 - 13 mmol/L [facility] Calcium [Mass/Vol] 8.5 mg/dL Low 8.8 - 10. 0 mg/dL [facility] Chloride [Moles/Vol] 110 mmol/L High 98 - 10 7 mmol/L [facility] CO2 [Moles/Vol] 21 mmol/L Low 23 - 31 mmol/L [facility] Creatinine [Mass/Vol] 1.24 mg/dL High 0.57 - 1.11 mg/dL [facility] GFR/1.73 sq M.predicted (S/P/Bld) [Vol rate/Area] 43.5 mL/min Low - PINF [facility] Comment on above: Calculation based on the Chronic Kidney Disease Epidemiology Collaboration (CKD-EPI) equation refit without adjustment for race Glucose [Mass/Vol] 216 mg/dL High 82 - 115 mg/dL [facility] Phosphate [Mass/Vol] 2.3 mg/dL 2.3 - 4 .7 mg/dL [facility] Potassium [Moles/Vol] 4.8 mmol/L 3.5 - 5.1 mmol/L [facility] Comment on above: Plasma potassium jose ues may be up to 0.5 mmol/L lower than serum values. Sodium [Moles/Vol] 141 mmol/L 136 - 145 mmol/L [facility] Urea nitrogen [Mass/Vol] 48 mg/dL High 9 - 23 mg/dL [facility] CK [Catalytic activity/Vol] 97 U/L 30 - 185 U/L [facility] No Panel Informationon 02-03 Interpretation and review of laboratory results Normal [facility] Performed by: [facility] [place], [address] [place] [id number] CLIA ID: [id number] [facility] Interpretation and review of laboratory results Abnormal [facility] Performed by: [facility] [place], [address] [place] [address] CLIA ID: [id number] [facility] Interpretation and review of laboratory results Abnormal [facility] Performed by: [facility], [address] [place] [address] CLIA ID: [id number] [facility] Sinus tachycardia Borderline prolonged FL interval Low voltage, extremity and precordial leads Consider anteroseptal infarct Electronically Signed On 02-03-2025 07:42:45 EDT by Edgar Thorpe CV Edgar Nicole MD - 02/03/2025 IMPRESSION: Sinus tachycardia Borderline prolonged FL interval Low voltage, extremity and precordial leads Consider anteroseptal infarct Electronically Signed On 02-03-2025 07:42:45 EDT by Edgar Thorpe [facility] Interpretation and review of laboratory results Abnormal [facility] Performed by: Heaven Crocker, [address] [address] CLIA ID: [id number] [facility] Interpretation and review of laboratory results Abnormal [facility] No Panel InformationOrdered By: Edgar Thorpe on 02-03-2025 P Thornton 77 degrees [facility] Work Phone: FL Interval 208 ms [facility] Work Phone: QRS Thornton -15 degrees [facility] Work Phone: QRSD Interval 83 ms [facility] Work Phone: QT Interval 340 ms [facility] Work Phone: QTC Interval 454 ms [facility] [employer] Work Phone: T Wave Thornton 59 degrees [facility] [employer] Work Phone: [facility] [employer] Work Phone: RENAL FUNCTION PANELon 02-03 Albumin [Mass/Vol] 3.0 g/dL Low 3.4-4.8 [facility] Comment on above: Order Comment: Pleas e add on to collected specimen Performed By: #### Faith AB19, LAB62, LAB15 ####Senior Treasury Analyst: VALENTIN PINA ([id number])[facility] ([facility])[address] [place] [address] Chloride [Moles/Vol] 110 mmol/L High 98-107 [facility] Comment on above: Order Comment: Pleas e add on to collected specimen Performed By: #### L AB19, LAB62, LAB15 ####Senior Treasury Analyst: VALENTIN PINA ([id number])[facility] ([facility])[address] [place] [address] [place] CO2 [Moles/Vol] 21 mmol/L Low 23-31 [facility] Comment on above: Order Comment: Pleas e add on to collected specimen Performed By: #### L AB19, LAB62, LAB15 ####Senior Treasury Analyst: VALENTIN PINA ([id number])[facility] (SBHLAB)[address] Creatinine [Mass/Vol] 1.24 mg/dL High 0.57-1.11 [facility] Comment on above: Order Comment: Pleas e add on to collected specimen Performed By: #### L AB19, LAB62, LAB15 ####Senior Treasury Analyst: VALENTIN PINA ([id number])[facility] ([facility])[address] GLOMERULAR FILTRATION RATE ML/MIN/1.73 SQ M.PREDICTED 43.5 mL/min/1.73m*2 Low >60.0 [facility] Comment on above: Order Comment: Pleas e add on to collected specimen Result Comment: Calc ulation based on the Chronic Kidney Disease Epidemiology Collaboration (CKD-EPI) equation refit without adjustment for race Performed By: #### L AB19, LAB62, LAB15 ####Senior Treasury Analyst: VALENTIN PINA ([id number])[facility] ([facility])[address] Glucose [Mass/Vol] 216 mg/dL High 82-115 [facility] Comment on above: Order Comment: Pleas e add on to collected specimen Performed By: #### Faith AB19, LAB62, LAB15 ####Senior Treasury Analyst: VALENTIN PINA ([id number])[facility] ([facility])[address] [place] [address] Phosphate [Mass/Vol] 2.3 mg/dL Normal 2.3-4.7 [facility] Comment on above: Order Comment: Pleas e add on to collected specimen Performed By: #### L AB19, LAB62, LAB15 ####Senior Treasury Analyst: VALENTIN PINA ([phone])[facility] ([facility])[address] Urea nitrogen [Mass/Vol] 48 mg/dL High 9-23 [facility] Comment on above: Order Comment: Pleas e add on to collected specimen Performed By: #### L AB19, LAB62, LAB15 ####Senior Treasury Analyst: VALENTIN [id number])[facility] ([facility])[address] [place] [address] Vital signsOrdered By: Edgar Thorpe on 02-03-2025 Heart rate 107 /min bpm [facility] Work Phone: 30on 02-02-2025 30 Problem: Pain - Adul t Goal: Verbalizes/displays adequate comfort level or baseline comfort level Outcome: Progressing Problem: Safety - Adult Goal: Free from fall injury Outcome: Progressing Problem: Discharge Planning Goal: Discharge to home or other facility with appropriate resources Outcome: Progressing Problem: Chronic Conditions and Co-morbidities Goal: Patient's chronic conditions and co-morbidity symptoms are monitored and maintained or improved Outcome: Progressing Normal [facility] 30 Problem: Pain - Adul t Goal: Verbalizes/displays adequate comfort level or baseline comfort level Outcome: Progressing Problem: Safety - Adult Goal: Free from fall injury Outcome: Progressing Problem: Discharge Planning Goal: Discharge to home or other facility with appropriate resources Outcome: Progressing Problem: Chronic Conditions and Co-morbidities Goal: Patient's chronic conditions and co-morbidity symptoms are monitored and maintained or improved Outcome: Progressing Normal [facility] [id number] [id number] S/W, [facility] Patient is active with [facility]. Casemanager is Ivelisse Franklin at [phone]. Patient has an ERS from [employer]. Patient has aides M,F for 3 hrs through [facility]. [facility] aware of admit. Normal [facility] BASIC METABOLIC PANELon 07-0 Anion gap [Moles/Vol] 11 mmol/L Normal 3-13 [facility] Comment on above: Performed By: #### L AB15 ####Senior Treasury Analyst: VALENTIN PINA ([id number])[facility] ([facility])[address] [place] [address] Calcium [Mass/Vol] 9.0 mg/dL Normal 8.8-10.0 [facility] Comment on above: Performed By: #### L [id number] ####Senior Treasury Analyst: VALENTIN PINA ([id number])[facility] (SBHLAB)[address] Chloride [Moles/Vol] 111 mmol/L High 98-107 [facility] Comment on above: Performed By: #### L [id number] ####Senior Treasury Analyst: VALENTIN PINA ([id number])[facility]USONARTES[facility] GENER[facility] HOSPITALUzma (SBHLAB)[address] CO2 [Moles/Vol] 21 mmol/L Low 23-31 [facility] Comment on above: Performed By: #### L AB15 ####Senior Treasury Analyst: VALENTIN PINA ([phone])[facility] [place] (SBHLAB)[address] Creatinine [Mass/Vol] 1.24 mg/dL High 0.57-1.11 [facility] Comment on above: Performed By: #### L AB15 ####Senior Treasury Analyst: VALENTIN PINA ([id number])[facility]LEY[facility] (HLAB)[address] GLOMERULAR FILTRATION RATE ML/MIN/1.73 SQ M.PREDICTED 43.5 mL/min/1.73m*2 Low >60.0 [facility] Comment on above: Result Comment: Calc ulation based on the Chronic Kidney Disease Epidemiology Collaboration (CKD-EPI) equation refit without adjustment for race Performed By: #### L [id number] ####Senior Treasury Analyst: VALENTIN PINA ([id number])[facility] [place] (SBHLAB)[address] Glucose [Mass/Vol] 44 mg/dL Critically low 82-115 [facility] Comment on above: Performed By: #### L [id number] ####Senior Treasury Analyst: VALENTIN PINA ([id number])[facility]PITAL[facility] (SBHLAB)[address] Potassium [Moles/Vol] 4.6 mmol/L Normal 3.5-5.1 [facility] Comment on above: Result Comment: [facility] potassium values may be up to 0.5 mmol/L lower than serum values. Performed By: #### L AB15 ####Senior Treasury Analyst: VALENTIN SINGHAdelsoFREIDA ([id number])[facility] (SBHLAB)[address] Sodium [Moles/Vol] 143 mmol/L Normal 136-145 [facility] Comment on above: Performed By: #### L [id number] ####Senior Treasury Analyst: VALENTIN SINGHKELLY ([id number])[facility] (SBHLAB)[address] Urea nitrogen [Mass/Vol] 48 mg/dL High 9-23 [facility] Comment on above: Performed By: #### L [id number] ####Senior Treasury Analyst: VALENTIN SILVANA ([id number])[facility] ([facility])[address] [place] [address] Basic metabolic 1998 panelOr dered By: Emely Bear on 02-02-2025 Anion gap [Moles/Vol] 11 mmol/L 3 - 13 mmol/L [facility] Calcium [Mass/Vol] 9 mg/dL 8.8 - 10. 0 mg/dL [facility] Chloride [Moles/Vol] 111 mmol/L High 98 - 10 7 mmol/L [facility] CO2 [Moles/Vol] 21 mmol/L Low 23 - 31 mmol/L [facility] Creatinine [Mass/Vol] 1.24 mg/dL High 0.57 - 1.11 mg/dL [facility] GFR/1.73 sq M.predicted (S/P/Bld) [Vol rate/Area] 43.5 mL/min Low - PINF [facility] Comment on above: Calculation based on the Chronic Kidney Disease Epidemiology Collaboration (CKD-EPI) equation refit without adjustment for race Glucose [Mass/Vol] 44 mg/dL Critically low 82 - 11 5 mg/dL [facility] Interpretation and review of laboratory results Abnormal [facility] Potassium [Moles/Vol] 4.6 mmol/L 3.5 - 5.1 mmol/L [facility] Comment on above: Plasma potassium jose ues may be up to 0.5 mmol/L lower than serum values. Sodium [Moles/Vol] 143 mmol/L 136 - 145 mmol/L [facility] Urea nitrogen [Mass/Vol] 48 mg/dL High 9 - 23 mg/dL [facility] CBC W Auto Differential pane l (Bld)Ordered By: Lynn Fragoso on 02-02-2025 Basophils (Bld) [#/Vol] 0 10*3/uL 0.0 - 0.2 10*3/uL [facility] Basophils/100 WBC (Bld) 0.3 % 0.0 - 2.0 % [facility] Eosinophils (Bld) [#/Vol] 0 10*3/uL 0.0 - 0.5 10*3/uL [facility] Eosinophils/100 WBC (Bld) 0.1 % 0.0 - 6.0 % [facility] Erythrocyte distribution width (RBC) [Ratio] 13.5 % 11.5 - 15.0 % [facility] Hematocrit (Bld) [Volume fraction] 37.5 % 35.0 - 47.0 % [facility] Hemoglobin (Bld) [Mass/Vol] 11.8 g/dL 11.7 - 16.0 g/dL [facility] Immature granulocytes (Bld) [#/Vol] 0.1 10*3/uL High NINF - 0.1 10*3/uL [facility] Immature granulocytes/100 WBC (Bld) 0.9 % 0.0 - 2.0 % [facility] Interpretation and review of laboratory results Abnormal [facility] Lymphocytes (Bld) [#/Vol] 1.5 10*3/uL 1.0 - 4.3 10*3/uL [facility] Lymphocytes/100 WBC (Bld) 14.3 % Low 15.0 - 45.0 % [facility] MCH (RBC) [Entitic mass] 29.6 pg 26.0 - 34.0 pg [facility] MCHC (RBC) [Mass/Vol] 31.5 % 30.5 - 36.0 % [facility] MCV (RBC) [Entitic vol] 94.2 fL 77.0 - 99.0 fL [facility] Monocytes (Bld) [#/Vol] 1.2 10*3/uL High 0.0 - 0.9 10*3/uL [facility] Monocytes/100 WBC (Bld) 11.6 % 5.0 - 13.0 % [facility] Neutrophils (Bld) [#/Vol] 7.4 10*3/uL 1.8 - 7.5 10*3/uL [facility] Neutrophils/100 WBC (Bld) 72.8 % 38.0 - 82.0 % [facility] Nucleated RBC/100 WBC (Bld) [Ratio] 0 % [facility] Platelet mean volume (Bld) [Entitic vol] 9.3 fL 9.0 - 12.7 fL [facility] Platelets (Bld) [#/Vol] 385 10*3/uL 140 - 440 10*3/uL [facility] RBC (Bld) [#/Vol] 3.98 10*6/uL 3.80 - 5.20 10*6/uL [facility] WBC (Bld) [#/Vol] 10.1 10*3/uL 3.6 - 10.7 10*3/uL [facility] CBC WITH AUTO DIFFERENTIALon 02-02-2025 Basophils (Bld) [#/Vol] 0.0 10*3/uL Normal 0.0-0.2 [facility] Comment on above: Performed By: #### L [id number] ####Senior Treasury Analyst: VALENTIN PINA ([id number])[facility] ([facility])[address] [place] [address] Basophils/100 WBC (Bld) 0.3 % Normal 0.0-2.0 [facility] Comment on above: Performed By: #### L [id number] ####Senior Treasury Analyst: VALENTIN PINA ([id number])[facility] ([facility])[address] [place] [address] Eosinophils (Bld) [#/Vol] 0.0 10*3/uL Normal 0.0-0.5 [facility] Comment on above: Performed By: #### L [id number] ####Senior Treasury Analyst: VALENTIN PINA ([id number])[facility] ([facility])[address] Eosinophils/100 WBC (Bld) 0.1 % Normal 0.0-6.0 [facility] Comment on above: Performed By: #### L [id number] ####Senior Treasury Analyst: VALENTIN PINA ([id number])[facility] ([facility])[address] [place] [address] Erythrocyte distribution width (RBC) [Ratio] 13.5 % Normal 11.5-15.0 [facility] Comment on above: Performed By: #### L [id number] ####Senior Treasury Analyst: VALENTIN PINA ([id number])[facility] ([facility])[address] [place] [address] Hematocrit (Bld) [Volume fraction] 37.5 % Normal 35.0-47.0 [facility] Comment on above: Performed By: #### L [id number] ####Senior Treasury Analyst: VALENTIN KNOXFREIDA ([id number])[facility] ([facility])[address] [place] [address] Hemoglobin (Bld) [Mass/Vol] 11.8 g/dL Normal 11.7-16.0 [facility] Comment on above: Performed By: #### L [id number] ####Senior Treasury Analyst: VALENTIN PINA ([id number])[facility] ([facility])[address] [place] [address] IMMATURE GRANS % 0.9 % Normal 0.0-2.0 [facility] Comment on above: Performed By: #### L [id number] ####Senior Treasury Analyst: VALENTIN PINA ([id number])[facility] ([facility])[address] [place] [address] IMMATURE GRANS ABSOLUTE 0.1 10*3/uL High <0.1 [facility] Comment on above: Performed By: #### L [id number] ####Senior Treasury Analyst: VALENTIN PINA ([id number])[facility] ([facility])[address] [place] [address] Lymphocytes (Bld) [#/Vol] 1.5 10*3/uL Normal 1.0-4.3 [facility] Comment on above: Performed By: #### L [id number] ####Senior Treasury Analyst: VALENTIN KNOXFREIDA ([phone])[facility] (SBHLAB)[address] Lymphocytes/100 WBC (Bld) 14.3 % Low 15.0-45.0 [facility] Comment on above: Performed By: #### L [id number] ####Senior Treasury Analyst: VALENTIN PINA ([id number])[facility]PITALN (SBHLAB)[address] MCH (RBC) [Entitic mass] 29.6 pg Normal 26.0-34.0 [facility] Comment on above: Performed By: #### L [id number] ####Senior Treasury Analyst: VALENTIN SINGHAdelsoFREIDA ([id number])[facility] [place] (SBHLAB)[address] MCHC 31.5 % Normal 30.5-36.0 [facility] Comment on above: Performed By: #### L [id number] ####Senior Treasury Analyst: VALENTIN KNOXFREIDA ([id number])[facility]ITALN (SBHLAB)[address] MCV (RBC) [Entitic vol] 94.2 fL Normal 77.0-99.0 [facility] Comment on above: Performed By: #### L [id number] ####Senior Treasury Analyst: VALENTIN PINA ([id number])[facility]ITAL[facility] (SBHLAB)[address] Monocytes (Bld) [#/Vol] 1.2 10*3/uL High 0.0-0.9 [facility] Comment on above: Performed By: #### L [id number] ####Senior Treasury Analyst: VALENTIN PINA ([id number])[facility] [place] (SB[facility])[address] Monocytes/100 WBC (Bld) 11.6 % Normal 5.0-13.0 [facility] Comment on above: Performed By: #### L [id number] ####Senior Treasury Analyst: VALENTIN SINGHAdelsoFREIDA ([id number])[facility] [place] (SB[facility])[address] NEUTROPHILS ABSOLUTE 7.4 10*3/uL Normal 1.8-7.5 [facility] Comment on above: Performed By: #### L [id number] ####Senior Treasury Analyst: VALENTIN SINGHKELLY ([id number])[facility] [place] (SB[facility])[address] Neutrophils/100 WBC (Bld) 72.8 % Normal 38.0-82.0 [facility] Comment on above: Performed By: #### L [id number] ####Senior Treasury Analyst: VALENTIN SILVANA ([id number])[facility] [place] (SBHLAB)[address] [place] [address] NRBC 0.0 /100 WBCs Normal 0.0-2.[address] [facility] Comment on above: Performed By: #### L [id number] ####Senior Treasury Analyst: VALENTIN SILVANA ([phone])[facility]ITALN (SBHLAB)[address] Platelet mean volume (Bld) [Entitic vol] 9.3 fL Normal 9.0-12.7 [facility] Comment on above: Performed By: #### L [id number] ####Senior Treasury Analyst: VALENTIN KNOXFREIDA ([id number])[facility] [place] (SBHL[facility])[address] Platelets (Bld) [#/Vol] 385 10*3/uL Normal 140-440 [facility] Comment on above: Performed By: #### L [id number] ####Senior Treasury Analyst: VALENTIN SINGHKELLY ([id number])[facility] [place] (SB[facility])[address] RBC (Bld) [#/Vol] 3.98 10*6/uL Normal 3.80-5.20 [facility] Comment on above: Performed By: #### L [id number] ####Senior Treasury Analyst: VALENTIN PINA ([id number])[facility] (SBHLAB)[address] WBC (Bld) [#/Vol] 10.1 10*3/uL Normal 3.6-10.7 [facility] Comment on above: Performed By: #### L [id number] ####Senior Treasury Analyst: VALENTIN PINA ([id number])[facility]ON[facility] ([facility])[address] [place] [address] Consulton 02-02-2025 Consult Consult Note Date:02/02/2025 Patient Name:Anson Capps Date of :1940 Age:84 y.o. Reason for Consult: Right knee laceration, rule out septic joint Chief Complaint Chief Complaint Patient presents with Wound Check Right knee pain. History Obtained From Patient, chart. History of Present Illness The patient is a pleasant 84 yo WF who suffered a mechanical fall from standing height on 01/23. She landed directly on the front of her right knee and sustained a 7 cm transverse laceration. Her wound was appropriately cleaned in sutured in the ED the same day. She presents now with increased pain and fear of infection. She says her daughter is an RN and has been cleaning the wound and changing the dressing daily. She endorses a mild amount of purulent drainage. The knee feels much better than yesterday. She denies fever, chills or malaise. Past Medical History Medical History[1] Past Surgical History Surgical History[2] Medications Prior to Admission medications Medication Sig Start Date End Date Taking? Authorizing Provider albuterol 108 (90 Base) MCG/ACT inhaler Inhale 1 puff every 4 hours as needed. Historical Provider, atorvastatin (Lipitor) 40 MG tablet Take by mouth. 02/13/22 01/04/24 Historical Provider, cephalexin (Keflex) 500 MG capsule Take 1 capsule (500 mg) by mouth 4 times daily for 5 days. 01/24/25 01/29/25 Dara Correia, cholecalciferol (Vitamin D-3) 10 MCG (400 UNIT) capsule Take by mouth. 11/28/22 Historical Provider, cloNIDine (Catapres) 0.2 MG tablet Take 0.2 mg by mouth in the morning. Historical Provider, clopidogrel (Plavix) 75 MG tablet Take 75 mg by mouth daily. Historical Provider, dulaglutide (Trulicity) 3 MG/0.5ML solution pen-injector Inject under the skin 1 (one) time per week. Historical Provider, DULoxetine (Cymbalta) [address] capsule Take 30 mg by mouth daily. Historical Provider, ferrous gluconate ( Ferrous Gluconate) 324 (37.5 Fe) MG tablet Take 324 mg by mouth daily (with breakfast). Historical Provider, ipratropium-albuterol (Duo-Neb) 0.5-2.5 mg/3 mL nebulizer solution Inhale 3 mL in the morning and 3 mL at noon and 3 mL in the evening and 3 mL before bedtime. Historical Provider, lisinopril 5 MG tablet Take 1 tablet (5 mg) by mouth daily. 05/14/23 Jamee Stewart MD oxyCODONE (Roxicodone) 5 MG immediate release tablet Take 1 tablet (5 mg) by mouth every 8 hours as needed for severe pain (7-10). 01/24/25 Dara Correia, DO Allergies Iron, Pregabalin, Tetracyclines & related, Amlodipine, and Codeine Social History reports that she has never smoked. She has never used smokeless tobacco. She reports that she does not currently use alcohol. She reports that she does not use drugs. Family History Family History[3] Review of Systems Denies HI or LOC. Denies FERNANDEZ or dizziness. Denies recent cold or flu. Denies CP or palpitations. Denies SOB or cough. Denies abdominal pain. Denies bowel or bladder complaint. Denies rash or skin lesion other than her right knee laceration. Denies focal neuro deficit. Physical Exam BP (!) 176/89 (BP Location: Right arm, Patient Position: Lying) Pulse 100 Temp 36.7 ?C (98.1 ?F) (Temporal) Resp 18 Ht 1.524 m (5') Wt 56.7 kg (125 lb) SpO2 92% BMI 24.41 kg/m? A&O x 3. NAD. Head NC/AT. Heart RRR. Breathing unlabored. Abdomen soft, NT. UE moving freely. Knee immobilizer intact right LE. Her 7 cm transverse right knee laceration is well approximated with interrupted sutures. The skin surrounding the laceration is hyperemic but not cellulitic. There is no active drainage. There is no joint effusion. There is no prepatellar fluid collection or fluctuance. She can hold an active SLR without pain. Knee flexion is appropriately painful. Calves soft, NT. NVI distally. Labs CBC: Recent Labs 01/31/25 1721 02/02/25 0050 WBC 9.5 10.1 RBC 4.26 3.98 HGB 12.7 11.8 HCT 39.2 37.5 MCV 92.0 94.2 RDW 13.5 13.5 PLT 417 385 CHEMISTRIES: Recent Labs 01/31/25 1721 02/01/25 1512 02/02/25 0050 NA 137 -- 143 K 5.2* 5.3* 4.6 CL 102 -- 111* CO2 21* -- 21* BUN 63* -- 48* CREATININE 1.13* -- 1.24* GLUCOSE 112 -- 44* PT/INR:No results for input(s): PROTIME, INR in the last 72 hours. APTT:No results for input(s): APTT in the last 72 hours. LIVER PROFILE:No results for input(s): AST, ALT, BILIDIR, BILITOT, ALKPHOS in the last 72 hours. Imaging/Diagnostics Right knee x-ray is negative for fracture, foreign body or joint effusion. Assessment Mechanical fall from standing height on 01/23. Right knee laceration. Low index of suspicion for superficial or deep infection. Plan The patient's knee looks very benign to me. No sign of active infection. Joint aspiration not indicated. Her extensor mechanism is intact. I recommend a DSD to the right knee daily. I agree with knee (more content not included)... Normal [facility] Consult Initial Nephrology C onsult Note Patient: Anson Capps Room number: CDU-04/CDU-04 A Date of Admit: 01/31/2025 LOS: 1 days Referring physician: Baldomero Gates MD Outpatient Professional Housing Consultant: Erin Montiel MD ([place]). Reason for Consult: Asked to see/evaluate by primary service for opinion regarding: abnormal renal labs. Assessment/Plan: 1. CKD stage III- baseline Scr 1.1-1.3 mg/dL. Follow up with [place] [facility] as an outpatient. 2. Hyperkalemia - mild and apears resolved. Continue ACEi. Check CPK. 3. R knee cellulitis after laceration - on abx. 4. DM type II -not a good candidate for SGLT2 therapy given her Apr 2023 admit for pylenephritis/sepsis. 5. PAD with muscle atrophy L leg. Medication dose adjustment: CrCl < 40 ml/min. Will follow along as directed. Thank you for allowing us to participate in the care of this patient. HPI: Anson Capps is a 84 y.o. female with a past medical history of: CKD stage III, DM type II, COPD, HTN, depression, PAD with L leg revascularization, , who was admitted by,Brando Frank MD, for Open knee wound, right, initial encounter [S81.001A]. Admitted after recent ER visit for mechanical fall at home with R knee laceration. Completed 7 days course of Keflex. Presented to ER again with worsening redness or R knee and admitted for IV antibiotics. Scr 1.13 with K 5.2 on admission, Contrast exposure: no Nephrotoxic drug exposure: no documented use of aminoglycosides or NSAIDs. Hypotensive episodes: none documented. PMHx: Medical History[1] Past Surgical History: Surgical History[2] Family History: Family History[3] Social History: Social History Socioeconomic History Marital status: Spouse name: Not on file Number of children: Not on file Years of education: Not on file Highest education level: Not on file Occupational History Not on file Tobacco Use Smoking status: Never Smokeless tobacco: Never Substance and Sexual Activity Alcohol use: Not Currently Drug use: Never Sexual activity: Not on file Other Topics Concern Not on file Social History Narrative Not on file Social Drivers of Health Financial Resource Strain: Not on file Food Insecurity: Not on file Transportation Needs: No Transportation Needs (05/12/2023) PRAPARE - Transportation Lack of Transportation (Medical): No Lack of Transportation (Non-Medical): No Physical Activity: Not on file Stress: Not on file Social Connections: Not on file Intimate Partner Violence: Not At Risk (02/01/2025) Humiliation, Afraid, Rape, and Kick questionnaire Fear of Current or Ex-Partner: No Emotionally Abused: No Physically Abused: No Sexually Abused: No Housing Stability: Low Risk (05/12/2023) Housing Stability Vital Sign Unable to Pay for Housing in the Last Year: No Number of Places Lived in the Last Year: 1 Unstable Housing in the Last Year: No Medications: Scheduled Meds:Scheduled Meds[4] Continuous Infusions:Continuous Meds[5] Allergies: Allergies[6] Review of Systems: Denies uremic symptoms. All other ROS negative, except for those noted above in HPI. Physical Exam: Vitals: 02/01/25 0815 02/01/25 1933 02/01/25203302/02/25 0805 BP: 151/72 133/73 (!) 176/89 BP Location: Left arm Right arm Right arm Patient Position: Lying Lying Lying Pulse: 105 110 104 100 Resp: 18 15 18 Temp: 36.1 ?C (96.9 ?F) 37.1 ?C (98.7 ?F) 36.7 ?C (98.1 ?F) TempSrc: Temporal Temporal SpO2: 93% 94% 94% 92% Weight: Height: Today's weight: Weight: 56.7 kg (125 lb) Admission weight: Weight: 56.7 kg (125 lb) Wt Readings from Last 3 Encounters: 01/31/25 56.7 kg (125 lb) 01/24/25 56.7 kg (125 lb) 01/23/25 56.7 kg (125 lb) Estimated body mass index is 24.41 kg/m? as calculated from the following: Height as of this encounter: 1.524 m (5'). Weight as of this encounter: 56.7 kg (125 lb). Intake/Output Summary (Last 24 hours) at 02/02/2025 1713 Last data filed at 02/02/2025 1313 Gross per 24 hour Intake 1474.17 ml Output 350 ml Net 1124.17 ml FIO2 needs: No data found. General Appearance no acute distress, comfortable appearing, looks stated age. Alert and oriented x 3 HEENT Neck anicteric sclera, moist mucus membranes, normal external ears/nares, no facial edema, EOMI. Supple neck, midline trachea without tracheal deviation Chest symmetric, normal shape/expansion, no chest wall/sternal tenderness Heart RRR, no audible pericardial rubs Lungs Occasional wheeze, unlabored respirations without conversational dyspnea, no accessory muscle use, laying flat, room air Abdomen Skin soft without distension or palpable organomegaly, normal bowel sounds, no rebound or guarding, no periumbilical bruits audible no rash or subcutaneous nodules, warm and dry skin with good turgor Musculoskeletal no leg edema, R knee immobilized/covered by dressing. Muscle atrophy L leg no salazar catheter present Neurologic n (more content not included)... Normal [facility] Laboratory - Chemistry and C hemistry - challengeon 02-02-2025 Glucose [Mass/Vol] 141 mg/dL High 70 - 100 mg/dL [facility] Glucose [Mass/Vol] 118 mg/dL High 70 - 100 mg/dL [facility] Glucose [Mass/Vol] 151 mg/dL High 70 - 100 mg/dL [facility] Glucose [Mass/Vol] 136 mg/dL High 70 - 100 mg/dL [facility] Glucose [Mass/Vol] 79 mg/dL 70 - 100 mg/dL [facility] No Panel Informationon 02-02 Interpretation and review of laboratory results Abnormal [facility] Performed by: Heaven Crocker [address] [place] [address] CLIA ID: [id number] [facility] Interpretation and review of laboratory results Abnormal [facility] Performed by: Heaven Crocker [address] [place] [id number] CLIA ID: [id number] [facility] Interpretation and review of laboratory results Abnormal [facility] Performed by: Heaven Crocker [address] [place] [id number] CLIA ID: [id number] [facility] Interpretation and review of laboratory results Abnormal [facility] Performed by: Heaven Crocker [address] [place] [address] CLIA ID: [id number] [facility] Interpretation and review of laboratory results Normal [facility] Performed by: Heaven Crocker [address] [place] [address] CLIA ID: [id number] [facility] Nursing Noteon 02-02-2025 Nursing Note Wound Care consulted for Pressure Injury Prevention. Pt's Samm= 20, pt is no longer at risk at this time. Skin Care Precaution order set ordered. Will continue to follow peripherally. Please secure chat message with any questions. Richelle Lara RN Normal [facility] Nursing Note Patient blood sugar 44. Patient alert and oriented, asymptomatic, given 4 ounces of orange juice. 0200: rechecked blood sugar-79, patient denies any symptoms, remains alert and oriented. Normal [facility] Progress Noteon 02-02-2025 Progress Note Nutrition rescreen completed. Patient referred to the Dietitian for wounds Normal [facility] ED Nursing Noteon 02-01-2025 ED Nursing Note Report called to vee Irving RN at [facility]. Normal [facility] Laboratory - Chemistry and C hemistry - challengeon 02-01-2025 Glucose [Mass/Vol] 309 mg/dL High 70 - 100 mg/dL [facility] Glucose [Mass/Vol] 214 mg/dL High 70 - 100 mg/dL [facility] Potassium [Moles/Vol] 5.3 mmol/L High 3.5 - 5.1 mmol/L [facility] Comment on above: Plasma potassium jose ues may be up to 0.5 mmol/L lower than serum values. Glucose [Mass/Vol] 232 mg/dL High 70 - 100 mg/dL [facility] No Panel Informationon 02-01 Interpretation and review of laboratory results Abnormal [facility] Performed by: [facility], [address] [place] [address] CLIA ID: [id number] [facility] Interpretation and review of laboratory results Abnormal [facility] Performed by: [facility], [address] [place] [address] CLIA ID: [id number] [facility] Interpretation and review of laboratory results Abnormal [facility] Performed by: [facility], [address] [place] [address] CLIA ID: [id number] [facility] POTASSIUMon 02-01-2025 Potassium [Moles/Vol] 5.3 mmol/L High 3.5-5.1 [facility] Comment on above: Result Comment: [facility] potassium values may be up to 0.5 mmol/L lower than serum values. Performed By: #### L [id number] ####Senior Treasury Analyst: VALENTIN PINA ([id number])[facility] ([facility])[address] [place] [address] Potassium [Moles/Vol]on Interpretation and review of laboratory results Abnormal [facility] BASIC METABOLIC PANELon Anion gap [Moles/Vol] 14 mmol/L High 3-13 [facility] Comment on above: Performed By: #### L [id number], [id number], [id number] ####Senior Treasury Analyst: KECIA PICKETT ([id number])[facility] [place] [facility] ([facility])[address] [place] [address] Calcium [Mass/Vol] 9.8 mg/dL Normal 8.8-10.0 [facility] Comment on above: Performed By: #### L [id number], [id number], LAB15 ####Senior Treasury Analyst: KECIA PICKETT ([id number])[facility] [place] [facility] ([facility])[address] [place] [address] [place] Chloride [Moles/Vol] 102 mmol/L Normal 98-107 [facility] Comment on above: Performed By: #### L [id number], [id number], [id number] ####Senior Treasury Analyst: KECIA PICKETT ([phone])[facility]USA [place] [facility] ([facility])[address] [place] [address] [place] CO2 [Moles/Vol] 21 mmol/L Low 23-31 [facility] Comment on above: Performed By: #### L [id number], [id number], LAB15 ####Senior Treasury Analyst: KECIA PICKETT ([id number])[facility] [place] ([facility])[address] [place] [address] [place] Creatinine [Mass/Vol] 1.13 mg/dL High 0.57-1.11 [facility] Comment on above: Performed By: #### L [id number], [id number], LAB15 ####Senior Treasury Analyst: KECIA PICKETT ([id number])[facility] [place] ([facility])[address] [place] [address] [place] GLOMERULAR FILTRATION RATE ML/MIN/1.73 SQ M.PREDICTED 48.7 mL/min/1.73m*2 Low >60.0 [facility] Comment on above: Result Comment: Calc ulation based on the Chronic Kidney Disease Epidemiology Collaboration (CKD-EPI) equation refit without adjustment for race Performed By: #### L [id number], [id number], LAB15 ####Senior Treasury Analyst: KECIA PICKETT ([id number])[facility] [place] ([facility])[address] [place] [address] Glucose [Mass/Vol] 112 mg/dL Normal 82-115 [facility] Comment on above: Performed By: #### L [id number], [id number], LAB15 ####Senior Treasury Analyst: KECIA PICKETT ([id number])[facility] [place] [facility] ([facility])[address] [place] [address] [place] Potassium [Moles/Vol] 5.2 mmol/L High 3.5-5.1 [facility] Comment on above: Result Comment: [facility] potassium values may be up to 0.5 mmol/L lower than serum values. Performed By: #### L [id number], [id number], LAB15 ####Senior Treasury Analyst: KECIA PICKETT ([id number])[facility] [place] [facility] ([facility])[address] [place] [address] [place] Sodium [Moles/Vol] 137 mmol/L Normal 136-145 [facility] Comment on above: Performed By: #### L [id number], [id number], LAB15 ####Senior Treasury Analyst: KECIA PICKETT ([id number])[facility] [place] [facility] ([facility])[address] [place] [address] [place] Urea nitrogen [Mass/Vol] 63 mg/dL High 9-23 [facility] Comment on above: Performed By: #### L [id number], [id number], LAB15 ####Senior Treasury Analyst: KECIA PICKETT ([id number])[facility]ENTER[facility]RIJ[facility] ([facility])[address] [place] [address] Basic metabolic 1998 panelon 01-31-2025 Anion gap [Moles/Vol] 14 mmol/L High 3 - 13 mmol/L [facility] Calcium [Mass/Vol] 9.8 mg/dL 8.8 - 10. 0 mg/dL [facility] Chloride [Moles/Vol] 102 mmol/L 98 - 10 7 mmol/L [facility] CO2 [Moles/Vol] 21 mmol/L Low 23 - 31 mmol/L [facility] Creatinine [Mass/Vol] 1.13 mg/dL High 0.57 - 1.11 mg/dL [facility] GFR/1.73 sq M.predicted (S/P/Bld) [Vol rate/Area] 48.7 mL/min Low - PINF [facility] Comment on above: Calculation based on the Chronic Kidney Disease Epidemiology Collaboration (CKD-EPI) equation refit without adjustment for race Glucose [Mass/Vol] 112 mg/dL 82 - 115 mg/dL [facility] Interpretation and review of laboratory results Abnormal [facility] Potassium [Moles/Vol] 5.2 mmol/L High 3.5 - 5.1 mmol/L [facility] Comment on above: Plasma potassium jose ues may be up to 0.5 mmol/L lower than serum values. Sodium [Moles/Vol] 137 mmol/L 136 - 145 mmol/L [facility] Urea nitrogen [Mass/Vol] 63 mg/dL High 9 - 23 mg/dL [facility] C-REACTIVE PROTEINon 025 CRP [Mass/Vol] 39.9 mg/L High <5.0 [facility] Comment on above: Performed By: #### L [id number], [id number], LAB15 ####Senior Treasury Analyst: KECIA PICKETT ([id number])[facility] [place] ([facility])[address] CBC W Auto Differential pane l (Bld)on 01-31-2025 Basophils (Bld) [#/Vol] 0.1 10*3/uL 0.0 - 0.2 10*3/uL [facility] Basophils/100 WBC (Bld) 0.8 % 0.0 - 2.0 % [facility] Eosinophils (Bld) [#/Vol] 0.2 10*3/uL 0.0 - 0.5 10*3/uL [facility] Eosinophils/100 WBC (Bld) 2.5 % 0.0 - 6.0 % [facility] Erythrocyte distribution width (RBC) [Ratio] 13.5 % 11.5 - 15.0 % [facility] Hematocrit (Bld) [Volume fraction] 39.2 % 35.0 - 47.0 % [facility] Hemoglobin (Bld) [Mass/Vol] 12.7 g/dL 11.7 - 16.0 g/dL [facility] Immature granulocytes (Bld) [#/Vol] 0.1 10*3/uL High NINF - 0.1 10*3/uL [facility] Immature granulocytes/100 WBC (Bld) 0.7 % 0.0 - 2.0 % [facility] Interpretation and review of laboratory results Abnormal [facility] Lymphocytes (Bld) [#/Vol] 1.7 10*3/uL 1.0 - 4.3 10*3/uL [facility] Lymphocytes/100 WBC (Bld) 17.6 % 15.0 - 45.0 % [facility] MCH (RBC) [Entitic mass] 29.8 pg 26.0 - 34.0 pg [facility] MCHC (RBC) [Mass/Vol] 32.4 % 30.5 - 36.0 % [facility] MCV (RBC) [Entitic vol] 92 fL 77.0 - 99.0 fL [facility] Monocytes (Bld) [#/Vol] 0.9 10*3/uL 0.0 - 0.9 10*3/uL [facility] Monocytes/100 WBC (Bld) 9.5 % 5.0 - 13.0 % [facility] Neutrophils (Bld) [#/Vol] 6.6 10*3/uL 1.8 - 7.5 10*3/uL [facility] Neutrophils/100 WBC (Bld) 68.9 % 38.0 - 82.0 % [facility] Nucleated RBC/100 WBC (Bld) [Ratio] 0 % [facility] Platelet mean volume (Bld) [Entitic vol] 9.6 fL 9.0 - 12.7 fL [facility] Comment on above: MPV is a calculated measurement using platelet volume ratio Platelets (Bld) [#/Vol] 417 10*3/uL 140 - 440 10*3/uL [facility] RBC (Bld) [#/Vol] 4.26 10*6/uL 3.80 - 5.20 10*6/uL [facility] WBC (Bld) [#/Vol] 9.5 10*3/uL 3.6 - 10.7 10*3/uL [facility] CBC WITH AUTO DIFFERENTIALon 01-31-2025 Basophils (Bld) [#/Vol] 0.1 10*3/uL Normal 0.0-0.2 [facility] Comment on above: Performed By: #### L [id number] ####Senior Treasury Analyst: KECIA PICKETT ([id number])[facility] [place] [facility] ([facility])[address] [place] [address] [place] Basophils/100 WBC (Bld) 0.8 % Normal 0.0-2.0 [facility] Comment on above: Performed By: #### L [id number] ####Senior Treasury Analyst: KECIA PICKETT ([id number])[facility] [place] [facility] ([facility])[address] [place] [address] [place] Eosinophils (Bld) [#/Vol] 0.2 10*3/uL Normal 0.0-0.5 [facility] Comment on above: Performed By: #### L [id number] ####Senior Treasury Analyst: KECIA PICKETT ([id number])[facility] [place] [facility] ([facility])[address] [place] [address] [place] Eosinophils/100 WBC (Bld) 2.5 % Normal 0.0-6.0 [facility] Comment on above: Performed By: #### L [id number] ####Senior Treasury Analyst: KECIA PICKETT ([id number])[facility] [place] [facility] ([facility])[address] [place] [address] [place] Erythrocyte distribution width (RBC) [Ratio] 13.5 % Normal 11.5-15.0 [facility] Comment on above: Performed By: #### L [id number] ####Senior Treasury Analyst: KECIA PICKETT ([id number])[facility] [place] [facility] ([facility])[address] [place] [address] Hematocrit (Bld) [Volume fraction] 39.2 % Normal 35.0-47.0 [facility] Comment on above: Performed By: #### L [id number] ####Senior Treasury Analyst: KECIA PICKETT ([id number])[facility] [place] [facility] ([facility])[address] [place] [address] Hemoglobin (Bld) [Mass/Vol] 12.7 g/dL Normal 11.7-16.0 [facility] Comment on above: Performed By: #### L [id number] ####Senior Treasury Analyst: KECIA PICKETT ([id number])[facility] [place] [facility] ([facility])[address] [place] [address] IMMATURE GRANS % 0.7 % Normal 0.0-2.0 [facility] Comment on above: Performed By: #### L [id number] ####Senior Treasury Analyst: KECIA PICKETT ([id number])[facility] [place] [facility] ([facility])[address] [place] [address] IMMATURE GRANS ABSOLUTE 0.1 10*3/uL High <0.1 [facility] Comment on above: Performed By: #### L [id number] ####Senior Treasury Analyst: KECIA PICKETT ([id number])[facility] [place] [facility] ([facility])[address] [place] [address] [place] Lymphocytes (Bld) [#/Vol] 1.7 10*3/uL Normal 1.0-4.3 [facility] Comment on above: Performed By: #### L [id number] ####Senior Treasury Analyst: KECIA PICKETT ([id number])[facility] [place] [facility] ([facility])[address] [place] [address] [place] Lymphocytes/100 WBC (Bld) 17.6 % Normal 15.0-45.0 [facility] Comment on above: Performed By: #### L [id number] ####Senior Treasury Analyst: KECIA PICKETT ([id number])[facility] [place] [facility] ([facility])[address] [place] [address] MCH (RBC) [Entitic mass] 29.8 pg Normal 26.0-34.0 [facility] Comment on above: Performed By: #### L [id number] ####Senior Treasury Analyst: KECIA PICKETT ([id number])[facility] (SWRL[facility])[address] [place] [address] MCHC 32.4 % Normal 30.5-36.0 [facility] Comment on above: Performed By: #### L [id number] ####Senior Treasury Analyst: KECIA PICKETT ([phone])[facility] ([facility])[address] [place] [address] MCV (RBC) [Entitic vol] 92.0 fL Normal 77.0-99.0 [facility] Comment on above: Performed By: #### L [id number] ####Senior Treasury Analyst: KECIA PICKETT ([phone])[facility] ([facility])[address] [place] [address] Monocytes (Bld) [#/Vol] 0.9 10*3/uL Normal 0.0-0.9 [facility] Comment on above: Performed By: #### L [id number] ####Senior Treasury Analyst: KECIA PICKETT ([id number])[facility] (SWRL[place])[address] [place] [address] [place] Monocytes/100 WBC (Bld) 9.5 % Normal 5.0-13.0 [facility] Comment on above: Performed By: #### L [id number] ####Senior Treasury Analyst: KECIA PICKETT ([id number])[facility] ([facility])[address] [place] [address] NEUTROPHILS ABSOLUTE 6.6 10*3/uL Normal 1.8-7.5 [facility] Comment on above: Performed By: #### L [id number] ####Senior Treasury Analyst: KECIA PICKETT ([id number])[facility] ([place])[address] [place] [address] Neutrophils/100 WBC (Bld) 68.9 % Normal 38.0-82.0 [facility] Comment on above: Performed By: #### L [id number] ####Senior Treasury Analyst: KECIA PICKETT ([id number])[facility] ([place])[address] [place] [address] NRBC 0.0 /100 WBCs Normal 0.0-2.0 [facility] Comment on above: Performed By: #### L [id number] ####Senior Treasury Analyst: KECIA PICKETT ([id number])[facility] ([place])[address] [place] [address] Platelet mean volume (Bld) [Entitic vol] 9.6 fL Normal 9.0-12.7 [facility] Comment on above: Result Comment: MPV is a calculated measurement using platelet volume ratio Performed By: #### L [id number] ####Senior Treasury Analyst: KECIA PICKETT ([id number])[facility] ([place])[address] [place] [address] Platelets (Bld) [#/Vol] 417 10*3/uL Normal 140-440 [facility] Comment on above: Performed By: #### L [id number] ####Senior Treasury Analyst: KECIA PICKETT ([id number])[facility] ([place])[address] [place] [address] RBC (Bld) [#/Vol] 4.26 10*6/uL Normal 3.80-5.20 [facility] Comment on above: Performed By: #### L [id number] ####Senior Treasury Analyst: KECIA PICKETT ([id number])[facility] ([facility])[address] WBC (Bld) [#/Vol] 9.5 10*3/uL Normal 3.6-10.7 [facility] Comment on above: Performed By: #### L [id number] ####Senior Treasury Analyst: KECIA PICKETT ([id number])[facility] ([place])[address] [place] [address] [place] CRP [Mass/Vol]on 01-31-2025 Interpretation and review of laboratory results Abnormal [facility] ED Nursing Noteon 01-31-2025 ED Nursing Note Pt placed on bedpan for urination. Pt attempted BSC but unable to d/t not being able to bend knee. Normal [facility] ED Nursing Note Staff to pts bedside due to Vancomycin complete. Staff noticed pt was scratching and her skin was reddened all over. Medic who responded to bs informed provider whom ordered benadryl IVP. Pt tolerated well. Normal [facility] ED Nursing Note Wound dressing appli ed to right knee: nonstick pad, ABD, roll gauze to secure. Pt tolerated well. Normal [facility] ED Nursing Note Pt to ED7 via [facility] (mutual aid for [place]) for wound check. Pt states she had sutures placed to her right knee at this ED approx 1 week ago. Pt states today when her daughter changed the dressing, the wound looked angry. Pt arrives with dressing and knee brace intact. She has a follow up appt this Thurs with her PCP in [place]. Pt states she was prescribed Keflex last week and completed the prescription. Dressing removed, 7 sutures intact to right knee, surrounding tissue reddened and pt reports edema as well. Daughter bedside. Normal [facility] ED Provider Noteon 5 ED Provider Note EMERGENCY DEPARTMENT ENCOUNTER Pt Name: Anson Capps Birthdate 1940 Date of evaluation: 01/31/2025 ED Provider: Rose Vickers MD CHIEF COMPLAINT Chief Complaint Patient presents with ? Wound Check HISTORY OF PRESENT ILLNESS (Location/Symptom, Timing/Onset, Context/Setting, Quality, Duration, Modifying Factors, Severity) Note limiting factors. I wore appropriate PPE for the entirety of this encounter. HPI Anson Capps is a 84 y.o. who presents to the emergency department with chief complaint of right knee wound check. Patient had a mechanical fall onto carpet and sustained a large laceration to the right knee. Patient came into the emergency department and had suture repair. Patient then returned to the emergency department with a wound dehiscence and then had some repeat suturing done. Patient felt that it was improving but now has gotten more red painful and had a little bit of yellowish drainage from the medial aspect of the wound. Denies any fevers. Denies any other concerns or complaints. Patient completed the prescribed course of antibiotics. Nursing Notes were reviewed. Limitations to history: None Outside historians: None REVIEW OF SYSTEMS Review of Systems Pertinent positives and negatives as per HPI. PAST MEDICAL HISTORY Medical History[1] SURGICAL HISTORY Surgical History[2] CURRENT MEDICATIONS Previous Medications ALBUTEROL 108 (90 BASE) MCG/ACT INHALER Inhale 1 puff every 4 hours as needed. ATORVASTATIN (LIPITOR) 40 MG TABLET Take by mouth. CHOLECALCIFEROL (VITAMIN D-3) 10 MCG (400 UNIT) CAPSULE Take by mouth. CLONIDINE (CATAPRES) 0.2 MG TABLET Take 0.2 mg by mouth in the morning. CLOPIDOGREL (PLAVIX) 75 MG TABLET Take 75 mg by mouth daily. DULAGLUTIDE (TRULICITY) 3 MG/0.5ML SOLUTION PEN-INJECTOR Inject under the skin 1 (one) time per week. DULOXETINE (CYMBALTA) [address] CAPSULE Take 30 mg by mouth daily. FERROUS GLUCONATE ( FERROUS GLUCONATE) 324 (37.5 FE) MG TABLET Take 324 mg by mouth daily (with breakfast). IPRATROPIUM-ALBUTEROL (DUO-NEB) 0.5-2.5 MG/3 ML NEBULIZER SOLUTION Inhale 3 mL in the morning and 3 mL at noon and 3 mL in the evening and 3 mL before bedtime. LISINOPRIL 5 MG TABLET Take 1 tablet (5 mg) by mouth daily. OXYCODONE (ROXICODONE) 5 MG IMMEDIATE RELEASE TABLET Take 1 tablet (5 mg) by mouth every 8 hours as needed for severe pain (7-10). ALLERGIES Iron, Pregabalin, Tetracyclines & related, Amlodipine, and Codeine FAMILY HISTORY Family History[3] SOCIAL HISTORY Social History[4] SCREENINGS PHYSICAL EXAM ED Triage Vitals [01/31/25 1627] Temp Heart Rate Resp BP 36.8 ?C (98.3 ?F) 85 18 (!) 152/71 SpO2 Temp Source Heart Rate Source Patient Position 93 % Oral -- -- BP Location FiO2 (%) -- -- General appearance: Well-appearing, no acute distress. Psych: Awake alert and oriented ?3. Pleasant and cooperative. Skin: Warm and dry. No noted wound dehiscence there is erythema as noted below to the right knee. Neck: Supple. Cardiovascular: Regular rate and rhythm Extremities: Warm and well perfused. NROM and SILT throughout upper and lower extermities. DIAGNOSTIC RESULTS Interpretation per the Radiologist below, if available at the time of this note: XR knee 1 or 2 views right Final Result 1. No acute osseous abnormality. 2. Soft tissue edema. Report Dictated on Electronically Signed By: Riccardo Gama MD Electronically Signed Date/Time: 01/31/2025 5:54 PM EDT ED BEDSIDE ULTRASOUND: Performed by ED Physician - none LABS: Labs Reviewed CBC WITH AUTO DIFFERENTIAL - Abnormal Result Value Auto WBC 9.5 RBC 4.26 Hemoglobin 12.7 Hematocrit 39.2 MCV 92.0 MCH 29.8 MCHC 32.4 RDW 13.5 Platelets 417 MPV 9.6 nRBC 0.0 Neutrophils Relative 68.9 Lymphocytes Relative 17.6 Monocytes Relative 9.5 Eosinophils Relative 2.5 Basophils Relative 0.8 Immature Grans % 0.7 Neutrophils Absolute 6.6 Lymphocytes Absolute 1.7 Monocytes Absolute 0.9 Eosinophils Absolute 0.2 Basophils Absolute 0.1 Immature Grans Absolute 0.1 (*) BASIC METABOLIC PANEL - Abnormal SODIUM 137 POTASSIUM 5.2 (*) CHLORIDE 102 CARBON DIOXIDE 21 (*) UREA NITROGEN 63 (*) CREATININE 1.13 (*) GLUCOSE 112 CALCIUM 9.8 ANION GAP 14 (*) eGFR 48.7 (*) All other labs were within normal range or not returned as of this dictation. EMERGENCY DEPARTMENT COURSE and DIFFERENTIAL DIAGNOSIS/MDM: Vitals: Vitals: 01/31/25 1625 01/31/25 1627 BP: (!) 152/71 Pulse: 85 Resp: 18 Temp: 36.8 ?C (98.3 ?F) TempSrc: Oral SpO2: 93% Weight: 56.7 kg (125 lb) Height: 1.524 m (5') The patient presented with a chief complaint of right knee wound. The differential diagnosis associated with this patient's presentation includes abscess, cellulitis. Our workup consisted of ordering/reviewing labs x-ray right knee. ED Course as of 01/31/252005Jan 31 (more content not included)... Normal [facility] Laboratory - Chemistry and C hemistry - challengeon 01-31-2025 Procalcitonin [Mass/Vol] 0.05 ng/mL [facility] 0.[facility] ng/mL [facility] CRP [Mass/Vol] 39.9 mg/L High [facility] - 5.0 mg/L [facility] PROCALCITONIN TESTon 025 PROCALCITONIN 0.05 ng/mL Normal <0.07 [facility] Comment on above: Result Comment: MAGGIE Gipson COMMENTS: PCT <0.50 = Low risk of severe sepsis and/or septic shock. PCT >2.00 = High risk of severe sepsis and/or septic shock. Performed By: #### L [id number], [id number], [id number] ####Senior Treasury Analyst: KECIA PICKETT ([id number])[facility] ([address] Procalcitonin [Mass/Vol]on 0 01-31-2025 Interpretation and review of laboratory results Normal [facility] PCT <0.50 = Low risk of severe sepsis and/or septic shock. PCT >2.00 = High risk of severe sepsis and/or septic shock. [facility] XR Knee - right 1 or 2 Views on 01-31-2025 1. No acute osseous abnormality. 2. Soft tissue edema. Report Dictated on Electronically Signed By: Riccardo Gama MD Electronically Signed Date/Time: 01/31/2025 5:54 PM [facility] Patient Name: ANSON CAPPS : 1940 Exam Date/Time: 01/31/2025 17:24 Procedure: XR KNEE 1-2 VIEWS RIGHT Ordering Provider: VICKERS MARK Reason For Exam: laceration, infection, pain RIGHT KNEE 2 VIEWS CLINICAL INDICATION: laceration, infection, pain TECHNIQUE: 2 views of the right knee. COMPARISON: December,. FINDINGS: No acute fracture, dislocation or osseous destruction. Joint spaces age-appropriate. Mild spurring off the superior patella. Mild chondrocalcinosis again noted in the bilateral menisci. Mild prepatellar soft tissue edema. [facility] Riccardo Gama MD - 01/31/2025 Patient Name: ANSON CAPPS : 1940 Exam Date/Time: 01/31/2025 17:24 Procedure: XR KNEE 1-2 VIEWS RIGHT Ordering Provider: VICKERS MARK Reason For Exam: laceration, infection, pain RIGHT KNEE 2 VIEWS CLINICAL INDICATION: laceration, infection, pain TECHNIQUE: 2 views of the right knee. COMPARISON: December,. FINDINGS: No acute fracture, dislocation or osseous destruction. Joint spaces age-appropriate. Mild spurring off the superior patella. Mild chondrocalcinosis again noted in the bilateral menisci. Mild prepatellar soft tissue edema. IMPRESSION: 1. No acute osseous abnormality. 2. Soft tissue edema. Report Dictated on Electronically Signed By: Riccardo Gama MD Electronically Signed Date/Time: 01/31/2025 5:54 PM EDT [facility] Radiology Study observation (narrative) [facility] XR Knee - right 1 or 2 Views Ordered By: Riccardo Gama on 01-31-2025 [employer] Work Phone: ED Provider Noteon ED Provider Note EMERGENCY DEPARTMENT ENCOUNTER Pt Name: Anson Capps Birthdate 1940 Date of evaluation: 01/24/2025 ED Provider: Dara Correia DO CHIEF COMPLAINT Chief Complaint Patient presents with Knee Pain Pt c/o right knee pain s/p fall yesterday, was seen and sutured at [place], pt took Tylenol at home with no relief HISTORY OF PRESENT ILLNESS (Location/Symptom, Timing/Onset, Context/Setting, Quality, Duration, Modifying Factors, Severity) Note limiting factors. I wore appropriate PPE for the entirety of this encounter. HPI Anson Capps is a 84 y.o. who presents to the emergency department with chief complaint of right knee pain. Patient seen in the ED yesterday after she had a mechanical fall and sustained a laceration to the knee. The laceration was sutured and she was placed in a knee immobilizer. Says she was doing well until today when she suddenly had worsening pain. Denies any new injuries. Nursing Notes were reviewed. Limitations to history: None Outside historians: Family REVIEW OF SYSTEMS Review of Systems Pertinent positives and negatives as per HPI. PAST MEDICAL HISTORY Medical History[1] SURGICAL HISTORY Surgical History[2] CURRENT MEDICATIONS Discharge Medication List as of 01/24/2025 9:29 PM CONTINUE these medications which have NOT CHANGED Details albuterol 108 (90 Base) MCG/ACT inhaler Inhale 1 puff every 4 hours as needed., Historical Med atorvastatin (Lipitor) 40 MG tablet Take by mouth., Starting 02/13/2022, Until 01/04/2024 at 2359, Historical Med cholecalciferol (Vitamin D-3) 10 MCG (400 UNIT) capsule Take by mouth., Starting Radha 11/28/2022, Historical Med cloNIDine (Catapres) 0.2 MG tablet Take 0.2 mg by mouth in the morning., Historical Med clopidogrel (Plavix) 75 MG tablet Take 75 mg by mouth daily., Historical Med dulaglutide (Trulicity) 3 MG/0.5ML solution pen-injector Inject under the skin 1 (one) time per week., Historical Med DULoxetine (Cymbalta) [address] capsule Take 30 mg by mouth daily., Historical Med ferrous gluconate (KP Ferrous Gluconate) 324 (37.5 Fe) MG tablet Take 324 mg by mouth daily (with breakfast)., Historical Med ipratropium-albuterol (Duo-Neb) 0.5-2.5 mg/3 mL nebulizer solution Inhale 3 mL in the morning and 3 mL at noon and 3 mL in the evening and 3 mL before bedtime., Historical Med lisinopril 5 MG tablet Take 1 tablet (5 mg) by mouth daily., Starting 05/14/2023, Normal ALLERGIES Iron, Pregabalin, Tetracyclines & related, Amlodipine, and Codeine FAMILY HISTORY Family History[3] SOCIAL HISTORY Social History[4] SCREENINGS PHYSICAL EXAM ED Triage Vitals [01/24/251948] Temp Heart Rate Resp BP 36.3 ?C (97.4 ?F) 77 18 (!) 159/57 SpO2 Temp Source Heart Rate Source Patient Position -- Oral Monitor Lying BP Location FiO2 (%) Left arm -- Physical Exam Vitals and nursing note reviewed. Constitutional: General: She is not in acute distress. Appearance: She is well-developed. She is not ill-appearing or toxic-appearing. HENT: Head: Normocephalic and atraumatic. Nose: Nose normal. Cardiovascular: Pulses: Normal pulses. Pulmonary: Effort: Pulmonary effort is normal. No respiratory distress. Musculoskeletal: General: Tenderness (Right knee tender and diffusely ecchymotic. Laceration dehiscence is present.) present. Normal range of motion. Cervical back: Normal range of motion and neck supple. Skin: General: Skin is warm and dry. Capillary Refill: Capillary refill takes less than 2 seconds. Neurological: General: No focal deficit present. Mental Status: She is alert. Mental status is at baseline. DIAGNOSTIC RESULTS Interpretation per the Radiologist below, if available at the time of this note: No orders to display ED BEDSIDE ULTRASOUND: Performed by ED Physician - none LABS: Labs Reviewed - No data to display All other labs were within normal range or not returned as of this dictation. EMERGENCY DEPARTMENT COURSE and DIFFERENTIAL DIAGNOSIS/MDM: Vitals: Vitals: 01/24/251948 BP: (!) 159/57 BP Location: Left arm Patient Position: Lying Pulse: 77 Resp: 18 Temp: 36.3 ?C (97.4 ?F) TempSrc: Oral Weight: 56.7 kg (125 lb) Height: 1.524 m (5') Diagnoses as of 01/25/25 0048 Knee laceration, right, subsequent encounter The patient presented with chief complaint of knee pain. The differential diagnosis associated with this patient's presentation includes fracture, wound infection, wound dehiscence. Our workup consisted of ordering/reviewing: Laceration repair. Patient is in agreement with this plan. Medications oxyCODONE (Roxicodone) immediate release tablet 5 mg (5 mg Oral Given 01/24/252051) cephalexin (Keflex) capsule 500 mg (500 mg Oral Given 01/24/252050) lidocaine-EPINEPHrine (Xylocaine W/EPI) 1 %-1:476115 injection 10 mL (10 mL Infiltration Given by Other 01/24/252130) REVAL: 84-year-old female presentin (more content not included)... Normal [facility] No Panel Informationon 01-24 Dara Correia DO 01/25/2025 12:53 AM Laceration Repair Performed by: Dara Correia DO Authorized by: Dara Correia DO Consent: Consent obtained: Verbal Consent given by: Patient Risks, benefits, and alternatives were discussed: yes Risks discussed: Infection, pain and poor wound healing Alternatives discussed: No treatment [place] protocol: Patient identity confirmed: Arm band Anesthesia: Anesthesia method: Local infiltration Local anesthetic: Lidocaine 1% WITH epi Laceration details: Location: Leg Leg location: R knee Length (cm): 7 Pre-procedure details: Preparation: Patient was prepped and draped in usual sterile fashion Treatment: Area cleansed with: Shur-Clens Amount of cleaning: Extensive Skin repair: Repair method: Sutures Suture size: 4-0 Suture material: Nylon Suture technique: Simple interrupted and horizontal mattress Number of sutures: 4 Approximation: Approximation: Close Repair type: Repair type: Intermediate Post-procedure details: Dressing: Non-adherent dressing Procedure completion: Tolerated well, no immediate complications [facility] XR Knee - right 4 Viewson 1. No acute fracture or dislocation. 2. Mild medial compartment predominant osteoarthritis. 3. 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 4. Soft tissue swelling and subcutaneous emphysema anterior to the patella may correlate with laceration site. Correlate with physical exam. Report Dictated on Electronically Signed By: Cesar Sheppard MD Electronically Signed Date/Time: 01/24/2025 12:45 AM EDT [facility] 1940 [id number] Exam Date/Time: 01/24/2025 00:29 Procedure: XR KNEE 4+ VIEWS RIGHT Ordering Provider: BISHOP J Reason For Exam: fall, laceration RIGHT KNEE CLINICAL INDICATION: Fall, laceration AP, lateral, tunnel, and sunrise plain film views of the right knee were obtained. COMPARISON: None FINDINGS: There is no evidence for fracture or subluxation. Mild medial compartment predominant osteoarthritic changes are noted in the knee with osteophytosis and joint space narrowing. 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 There is no joint effusion. No bone lesion is identified. Atherosclerotic calcifications are noted in the soft tissues. Mild subcutaneous emphysema and soft tissue swelling is seen anterior to the patella on lateral radiograph, may reflect laceration. [facility] Cesar Sheppard MD - 01/24/2025 Patient Name: ANSON CAPPS [facility] 1940 [id number] Exam Date/Time: 01/24/2025 00:29 Procedure: XR KNEE 4+ VIEWS RIGHT Ordering Provider: BISHOP J Reason For Exam: fall, laceration RIGHT KNEE CLINICAL INDICATION: Fall, laceration AP, lateral, tunnel, and sunrise plain film views of the right knee were obtained. COMPARISON: None FINDINGS: There is no evidence for fracture or subluxation. Mild medial compartment predominant osteoarthritic changes are noted in the knee with osteophytosis and joint space narrowing. 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 There is no joint effusion. No bone lesion is identified. Atherosclerotic calcifications are noted in the soft tissues. Mild subcutaneous emphysema and soft tissue swelling is seen anterior to the patella on lateral radiograph, may reflect laceration. IMPRESSION: 1. No acute fracture or dislocation. 2. Mild medial compartment predominant osteoarthritis. 3. 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 4. Soft tissue swelling and subcutaneous emphysema anterior to the patella may correlate with laceration site. Correlate with physical exam. Report Dictated on Electronically Signed By: Cesar Sheppard MD Electronically Signed Date/Time: 01/24/2025 12:45 AM EDT [employer] Radiology Study observation (narrative) [employer] XR Knee - right 4 ViewsOrder ed By: Cesar Sheppard on 01-24-2025 [employer] Work Phone: ED Provider Noteon 5 ED Provider Note EMERGENCY DEPARTMENT ENCOUNTER Pt Name: Anson Capps Birthdate 1940 Date of evaluation: 01/23/2025 ED Provider: Noni Bishop MD CHIEF COMPLAINT Chief Complaint Patient presents with Laceration Pt arrived via ems from home for a lac to her R knee after a mechanical fall at home. Pt tripped, landed on her knee. Pt denies hitting head, no loc. Pt does take plavix. Bleeding is controlled. Pt denies any pain. Last tetanus unknown HISTORY OF PRESENT ILLNESS (Location/Symptom, Timing/Onset, Context/Setting, Quality, Duration, Modifying Factors, Severity) Note limiting factors. I wore appropriate PPE for the entirety of this encounter. HPI Anson Capps is a 84 y.o. female who presents to the emergency department with chief complaint of a laceration to her right knee after she was ambulating across the living room and had a mechanical fall, landing on her knee. She denies hitting her head or losing consciousness. She states that she does take Plavix. Nursing Notes were reviewed. Limitations to history: None Outside historians: Family : daughter REVIEW OF SYSTEMS Review of Systems Pertinent positives and negatives as per HPI. PAST MEDICAL HISTORY Medical History[1] SURGICAL HISTORY Surgical History[2] CURRENT MEDICATIONS Previous Medications ALBUTEROL 108 (90 BASE) MCG/ACT INHALER Inhale 1 puff every 4 hours as needed. ATORVASTATIN (LIPITOR) 40 MG TABLET Take by mouth. CHOLECALCIFEROL (VITAMIN D-3) 10 MCG (400 UNIT) CAPSULE Take by mouth. CLONIDINE (CATAPRES) 0.2 MG TABLET Take 0.2 mg by mouth in the morning. CLOPIDOGREL (PLAVIX) 75 MG TABLET Take 75 mg by mouth daily. DULAGLUTIDE (TRULICITY) 3 MG/0.5ML SOLUTION PEN-INJECTOR Inject under the skin 1 (one) time per week. DULOXETINE (CYMBALTA) [address] CAPSULE Take 30 mg by mouth daily. FERROUS GLUCONATE ( FERROUS GLUCONATE) 324 (37.5 FE) MG TABLET Take 324 mg by mouth daily (with breakfast). IPRATROPIUM-ALBUTEROL (DUO-NEB) 0.5-2.5 MG/3 ML NEBULIZER SOLUTION Inhale 3 mL in the morning and 3 mL at noon and 3 mL in the evening and 3 mL before bedtime. LISINOPRIL 5 MG TABLET Take 1 tablet (5 mg) by mouth daily. ALLERGIES Iron, Oxycodone, Pregabalin, Tetracyclines & related, Amlodipine, and Codeine FAMILY HISTORY Family History[3] SOCIAL HISTORY Social History[4] SCREENINGS PHYSICAL EXAM ED Triage Vitals Temp Heart Rate Resp BP 01/23/251 01/23/252320 -- 01/23/252321 36.6 ?C (97.8 ?F) 73 (!) 168/54 SpO2 Temp Source Heart Rate Source Patient Position 01/23/25232001/23/25232001/23/252320 -- 95 % Oral Monitor BP Location FiO2 (%) -- -- Physical Exam Vitals and nursing note reviewed. Constitutional: General: She is not in acute distress. Appearance: She is well-developed. HENT: Head: Normocephalic and atraumatic. Eyes: Conjunctiva/sclera: Conjunctivae normal. Cardiovascular: Rate and Rhythm: Normal rate. Pulmonary: Effort: Pulmonary effort is normal. No respiratory distress. Musculoskeletal: General: No swelling. Comments: Large 7 cm laceration overlying the superior aspect of the right patella. There is evidence of subcutaneous tissue visualization. Accompanying TTP. Skin: General: Skin is warm and dry. Capillary Refill: Capillary refill takes less than 2 seconds. Neurological: Mental Status: She is alert. Psychiatric: Mood and Affect: Mood normal. DIAGNOSTIC RESULTS Procedures/EKG: Interpretation per the Radiologist below, if available at the time of this note: XR knee 4+ views right Final Result 1. No acute fracture or dislocation. 2. Mild medial compartment predominant osteoarthritis. 3. 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 4. Soft tissue swelling and subcutaneous emphysema anterior to the patella may correlate with laceration site. Correlate with physical exam. Report Dictated on Electronically Signed By: Cesar Sheppard MD Electronically Signed Date/Time: 01/24/2025 12:45 AM EDT ED BEDSIDE ULTRASOUND: Performed by ED Physician - none LABS: Labs Reviewed - No data to display All other labs were within normal range or not returned as of this dictation. EMERGENCY DEPARTMENT COURSE and DIFFERENTIAL DIAGNOSIS/MDM: Vitals: Vitals: 01/23/25 2321 01/23/25 2322 01/23/252322 BP: (!) 168/54 Pulse: 73 Temp: 36.6 ?C (97.8 ?F) TempSrc: Oral SpO2: 95% Weight: 56.7 kg (125 lb) Height: 1.524 m (5') The patient presented with a chief complaint of a laceration The differential diagnosis associated with this patient's presentation includes but is not limited to: Presentation concerning for simple laceration but cannot rule out underlying fracture Our workup consisted of ordering/reviewing: Right knee x-ray I reviewed external records from: PDMP demonstrating 4 prescriptions, to include tramadol, Percocet, Ativan X-ray ne (more content not included)... [facility] No Panel Informationon 01-23 Erik Bishop MD 01/24/2025 1:01 AM Laceration Repair Performed by: Erik Bishop MD Authorized by: Erik Bishop MD Consent: Consent obtained: Verbal Consent given by: Patient [place] protocol: Patient identity confirmed: Verbally with patient Anesthesia: Anesthesia method: Local infiltration Local anesthetic: Lidocaine 1% WITH epi Laceration details: Location: Leg Leg location: R knee Length (cm): 7 Pre-procedure details: Preparation: Patient was prepped and draped in usual sterile fashion Exploration: Hemostasis achieved with: Direct pressure and epinephrine Contaminated: no Treatment: Area cleansed with: Karlo-Cleandrea Amount of cleaning: Standard Skin repair: Repair method: Sutures Suture size: 4-0 Suture material: Prolene Number of sutures: 6 Repair type: Repair type: Simple Post-procedure details: Dressing: Non-adherent dressing Procedure completion: Tolerated [facility] .Auto Diffon 10-12-2024 Basophil, Absolute 0.0 10 3/mcL Normal 0.0-0.2 [facility] Comment on above: Performed By: #### A PATRICIA, BMP, CBC, GFR, ADIFF #### [address] [address] Basophils/100 WBC (Bld) 0.4 % Normal 0.0-2.5 [facility] Comment on above: Performed By: #### A PATRICIA, BMP, CBC, GFR, ADIFF #### [address] [address] Eosinophil, Absolute 0.0 10 3/mcL Normal 0.0-0.7 [facility] Comment on above: Performed By: #### A PATRICIA, BMP, CBC, GFR, ADIFF #### [address] [address] Eosinophils/100 WBC (Bld) 0.4 % Normal 0.0-7.0 [facility] Comment on above: Performed By: #### A PATRICIA, BMP, CBC, GFR, ADIFF #### [address] [address] Lymphocyte, Absolute 2.0 10 3/mcL Normal 0.9-4.3 [facility] Comment on above: Performed By: #### A PATRICIA, BMP, CBC, GFR, ADIFF #### [address] [address] Lymphocytes/100 WBC (Bld) 16.9 % Low 20.0-40.0 [facility] Comment on above: Performed By: #### A PATRICIA, BMP, CBC, GFR, ADIFF #### [address] [address] Monocyte, Absolute 1.0 10 3/mcL Normal 0.1-1.4 [facility] Comment on above: Performed By: #### A PATRICIA, BMP, CBC, GFR, ADIFF #### [address] [address] Monocytes/100 WBC (Bld) 8.6 % Normal 2.0-13.0 [facility] Comment on above: Performed By: #### A PATRICIA, BMP, CBC, GFR, ADIFF #### [address] [address] Neutrophils/100 WBC (Bld) 73.7 % Normal 50.0-75.0 [facility] Comment on above: Performed By: #### A PATRICIA, BMP, CBC, GFR, ADIFF #### [address] [address] .GFRon 10-12-2024 Estimated Glomerular Filtration Rate 38 ml/min/1.73sqm Normal [facility] Comment on above: Result Comment: Stages of Chronic Kidney Disease (CKD) Stage Description eGFR(ml/min/1.73 sq.m.) CKD 1 Normal kidney function or >=90 normal kindney function with possible kidney damage (ex. Proteinuria) CKD 2 Kidney damage with mild loss 60-89 of kidney function CKD 3a Mild to moderate loss of kidney 45-59 function CKD 3b Moderate to severe loss of 30-44 of kindey function CKD 4 Severe loss of kidney function 15-29 CKD 5 Kidney failure <15 Note: (go live 2024) the eGFR calculation was updated to the 2020 CKD-EPI creatinine equation without a race factor to calculate the eGFR results. Performed By: #### A PATRICIA, BMP, CBC, GFR, ADIFF #### [address] [address] .NEUABSon 10-12-2024 Neutrophil, Absolute 8.6 10 3/mcL High 2.3-8.1 [facility] Comment on above: Performed By: #### A PATRICIA, BMP, CBC, GFR, ADIFF #### [id number] [place], [place] [address] BMPon 10-12-2024 BUN/Creatinine Ratio 41 ratio High 7-27 [facility] Comment on above: Performed By: #### A PATRICIA, BMP, CBC, GFR, ADIFF #### [address] [address] Calcium [Mass/Vol] 9.7 mg/dL Normal 8.4-10.2 [facility] Comment on above: Performed By: #### A PATRICIA, BMP, CBC, GFR, ADIFF #### [address] [address] Chloride [Moles/Vol] 103 mmol/L Normal 98-107 [facility] Comment on above: Performed By: #### A PATRICIA, BMP, CBC, GFR, ADIFF #### [address] [address] CO2 [Moles/Vol] 26 mmol/L Normal 23-31 [facility] Comment on above: Performed By: #### A PATRICIA, BMP, CBC, GFR, ADIFF #### [address] [address] Creatinine [Mass/Vol] 1.38 mg/dL High 0.55-1.02 [facility] Comment on above: Result Comment: Test ing performed on Buffer[employer] Dimension EXL analyzer using a modified kinetic Nate technique. Performed By: #### A PATRICIA, BMP, CBC, GFR, ADIFF #### [address] [address] Electrolyte Balance 8.0 mEq/L Normal 4.0-15.0 [facility] Comment on above: Performed By: #### A PATRICIA, BMP, CBC, GFR, ADIFF #### [address] [address] Glucose [Mass/Vol] 207 mg/dL High 83-110 [facility] Comment on above: Performed By: #### A PATRICIA, BMP, CBC, GFR, ADIFF #### [address] [address] Potassium [Moles/Vol] 4.2 mmol/L Normal 3.5-5.1 [facility] Comment on above: Performed By: #### A PATRICIA, BMP, CBC, GFR, ADIFF #### [address] [address] Sodium [Moles/Vol] 137 mmol/L Normal 136-145 [facility] Comment on above: Performed By: #### A PATRICIA, BMP, CBC, GFR, ADIFF #### [address] [address] Urea nitrogen [Mass/Vol] 56 mg/dL High 7-18 [facility] Comment on above: Performed By: #### A PATRICIA, BMP, CBC, GFR, ADIFF #### [address] [address] CBCon 10-12-2024 Erythrocyte distribution width (RBC) [Ratio] 17.1 % High 11.5-15.5 [facility] Comment on above: Performed By: #### A PATRICIA, BMP, CBC, GFR, ADIFF #### [address] [address] Hematocrit (Bld) [Volume fraction] 37.4 % Normal 34.0-46.0 [facility] Comment on above: Performed By: #### A PATRICIA, BMP, CBC, GFR, ADIFF #### [address] [address] Hgb 12.0 G/dL Normal 12.0-16.0 [facility] Comment on above: Performed By: #### A PATRICIA, BMP, CBC, GFR, ADIFF #### [address] [address] MCH (RBC) [Entitic mass] 28.4 pg Normal 27.0-33.0 [facility] Comment on above: Performed By: #### A PATRICIA, BMP, CBC, GFR, ADIFF #### [address] [address] MCHC 32.2 G/dL Normal 32.0-36.0 [facility] Comment on above: Performed By: #### A PATRICIA, BMP, CBC, GFR, ADIFF #### [address] [address] MCV (RBC) [Entitic vol] 88.4 fL Normal 80.0-99.0 [facility] Comment on above: Performed By: #### A PATRICIA, BMP, CBC, GFR, ADIFF #### [address] [address] Platelet 399 10 3/mcL Normal 150-450 [facility] Comment on above: Performed By: #### A PATRICIA, BMP, CBC, GFR, ADIFF #### [address] [address] Platelet mean volume (Bld) [Entitic vol] 8.1 fL Normal 6.6-10.5 [facility] Comment on above: Performed By: #### A PATRICIA, BMP, CBC, GFR, ADIFF #### [address] [address] RBC 4.23 10 6/mcL Normal 4.10-5.30 [facility] Comment on above: Performed By: #### A PATRICIA, BMP, CBC, GFR, ADIFF #### [address] [address] WBC 11.7 10 3/mcL High 4.5-10.8 [facility] Comment on above: Performed By: #### A PATRICIA, BMP, CBC, GFR, ADIFF #### [address] [address] .Auto Diffon 09-21-2024 Basophil, Absolute 0.0 10 3/mcL Normal 0.0-0.2 [facility] Comment on above: Performed By: #### G FR, CRE, BUN #### [address] [address] Basophils/100 WBC (Bld) 0.5 % Normal 0.0-2.5 [facility] Comment on above: Performed By: #### G FR, CRE, BUN #### [address] [address] Eosinophil, Absolute 0.2 10 3/mcL Normal 0.0-0.7 [facility] Comment on above: Performed By: #### G FR, CRE, BUN #### [address] [address] Eosinophils/100 WBC (Bld) 2.9 % Normal 0.0-7.0 [facility] Comment on above: Performed By: #### G FR, CRE, BUN #### [address] [address] Lymphocyte, Absolute 1.5 10 3/mcL Normal 0.9-4.3 [facility] Comment on above: Performed By: #### G FR, CRE, BUN #### [address] [address] Lymphocytes/100 WBC (Bld) 17.6 % Low 20.0-40.0 [facility] Comment on above: Performed By: #### G FR, CRE, BUN #### [address] [address] Monocyte, Absolute 0.8 10 3/mcL Normal 0.1-1.4 [facility] Comment on above: Performed By: #### Huy FR, CRE, BUN #### [address] [address] Monocytes/100 WBC (Bld) 9.4 % Normal 2.0-13.0 [facility] Comment on above: Performed By: #### G FR, CRE, BUN #### [address] [address] Neutrophils/100 WBC (Bld) 69.6 % Normal 50.0-75.0 [facility] Comment on above: Performed By: #### G FR, CRE, BUN #### [address] [address] .GFRon 09-21-2024 Estimated Glomerular Filtration Rate 33 ml/min/1.73sqm Normal [facility] Comment on above: Result Comment: Stages of Chronic Kidney Disease (CKD) Stage Description eGFR(ml/min/1.73 sq.m.) CKD 1 Normal kidney function or >=90 normal kindney function with possible kidney damage (ex. Proteinuria) CKD 2 Kidney damage with mild loss 60-89 of kidney function CKD 3a Mild to moderate loss of kidney 45-59 function CKD 3b Moderate to severe loss of 30-44 of kindey function CKD 4 Severe loss of kidney function 15-29 CKD 5 Kidney failure <15 Note: (go live 2024) the eGFR calculation was updated to the 2020 CKD-EPI creatinine equation without a race factor to calculate the eGFR results. Performed By: #### G FR, CRE, BUN #### [address] [address] .NEUABSon 09-21-2024 Neutrophil, Absolute 6.0 10 3/mcL Normal 2.3-8.1 [facility] Comment on above: Performed By: #### G FR, CRE, BUN #### [place] [address] CBCon 09-21-2024 Erythrocyte distribution width (RBC) [Ratio] 19.5 % High 11.5-15.5 [facility] Comment on above: Performed By: #### G FR, CRE, BUN #### [place] [address] Hematocrit (Bld) [Volume fraction] 35.6 % Normal 34.0-46.0 [facility] Comment on above: Performed By: #### G FR, CRE, BUN #### [place] [address] Hgb 11.2 G/dL Low 12.0-16.0 [facility] Comment on above: Performed By: #### G FR, CRE, BUN #### [place] [address] MCH (RBC) [Entitic mass] 28.3 pg Normal 27.0-33.0 [facility] Comment on above: Performed By: #### G FR, CRE, BUN #### [place] [address] MCHC 31.6 G/dL Low 32.0-36.0 [facility] Comment on above: Performed By: #### G FR, CRE, BUN #### [place] [address] MCV (RBC) [Entitic vol] 89.4 fL Normal 80.0-99.0 [facility] Comment on above: Performed By: #### G FR, CRE, BUN #### [address] [address] Platelet 302 10 3/mcL Normal 150-450 [facility] Comment on above: Performed By: #### G FR, CRE, BUN #### [address] [address] Platelet mean volume (Bld) [Entitic vol] 7.5 fL Normal 6.6-10.5 [facility] Comment on above: Performed By: #### G FR, CRE, BUN #### [address] [address] RBC 3.98 10 6/mcL Low 4.10-5.30 [facility] Comment on above: Performed By: #### G FR, CRE, BUN #### [address] [address] WBC 8.6 10 3/mcL Normal 4.5-10.8 [facility] Comment on above: Performed By: #### G FR, CRE, BUN #### [address] [address] CMPon 09-21-2024 Albumin Level 3.4 G/dL Normal 3.4-4.8 [facility] Comment on above: Performed By: #### Huy FR, CRE, BUN #### [address] [address] Albumin/Globulin [Mass ratio] 1.1 {ratio} Normal 1.1-2.5 [facility] Comment on above: Performed By: #### G FR, CRE, BUN #### [address] [address] ALP [Catalytic activity/Vol] 50 U/L Normal 40-135 [facility] Comment on above: Performed By: #### G FR, CRE, BUN #### [address] [address] ALT [Catalytic activity/Vol] 23 U/L Normal 14-59 [facility] Comment on above: Performed By: #### G FR, CRE, BUN #### [place] [address] AST [Catalytic activity/Vol] 13 U/L Normal 10-40 [facility] Comment on above: Performed By: #### G FR, CRE, BUN #### [place] [address] Bili Total 0.1 mg/dL Low 0.2-1.0 [facility] Comment on above: Result Comment: Use of this assay is not recommended for patients undergoing treatment with eltrombopag due to the potential for falsely elevated results. Performed By: #### G FR, CRE, BUN #### [place] [address] BUN/Creatinine Ratio 37 ratio High 7-27 [facility] Comment on above: Performed By: #### G FR, CRE, BUN #### [place] [address] Calcium [Mass/Vol] 9.1 mg/dL Normal 8.4-10.2 [facility] Comment on above: Performed By: #### G FR, CRE, BUN #### [place] [address] Chloride [Moles/Vol] 105 mmol/L Normal 98-107 [facility] Comment on above: Performed By: #### G FR, CRE, BUN #### [place] [address] CO2 [Moles/Vol] 26 mmol/L Normal 23-31 [facility] Comment on above: Performed By: #### G FR, CRE, BUN #### [place] [id number] Creatinine [Mass/Vol] 1.55 mg/dL High 0.55-1.02 [facility] Comment on above: Result Comment: Test ing performed on Siemens Dimension EXL analyzer using a modified kinetic Nate technique. Performed By: #### G FR, CRE, BUN #### [place] [id number] Electrolyte Balance 9.0 mEq/L Normal 4.0-15.0 [facility] Comment on above: Performed By: #### Huy SHELTON CRE, BUN #### [address] [address] Globulin 3.2 G/dL Normal 1.5-3.8 [facility] Comment on above: Performed By: #### Huy SHELTON CRE, BUN #### [address] [address] Glucose [Mass/Vol] 152 mg/dL High 83-110 [facility] Comment on above: Performed By: #### Huy SHELTON CRE, BUN #### [address] [address] Potassium [Moles/Vol] 4.2 mmol/L Normal 3.5-5.1 [facility] Comment on above: Performed By: #### Huy SHELTON CRE, BUN #### [address] [address] Sodium [Moles/Vol] 140 mmol/L Normal 136-145 [facility] Comment on above: Performed By: #### Huy SHELTON CRE, BUN #### [address] [address] Total Protein 6.6 G/dL Normal 6.4-8.2 [facility] Comment on above: Performed By: #### Huy SHELTON CRE, BUN #### [address] [address] Urea nitrogen [Mass/Vol] 58 mg/dL High 7-18 [facility] Comment on above: Performed By: #### Huy SHELTON CRE, BUN #### [address] [address] LABORATORYOrdered By: SYSTEM SYSTEM on 09-21-2024 Albumin BCP dye [Mass/Vol] 3.4 G/dL Normal 3.4 - 4.8 G/dL AO ADM SS Albumin/Globulin [Mass ratio] 1.1 {ratio} Normal 1.1 - 2.5 ratio AO ADM SS ALP [Catalytic activity/Vol] 50 U/L Normal 40 - 135 U/L AO ADM SS ALT With P-5'-P [Catalytic activity/Vol] 23 U/L Normal 14 - 59 U/L AO ADM SS AST With P-5'-P [Catalytic activity/Vol] 13 U/L Normal 10 - 40 U/L AO ADM SS Basophils (Bld) [#/Vol] 0.0 103/mcL Normal 0.0 - 0.2 10^3/mcL AO Workflow SS Basophils/100 WBC (Bld) 0.5 % Normal 0.0 - 2.5 % AO Workflow SS Bilirubin [Mass/Vol] 0.1 mg/dL Low 0.2 - 1 .0 mg/dL AO ADM SS Comment on above: Interpretive Data: U se of this assay is not recommended for patients undergoing treatment with eltrombopag due to the potential for falsely elevated results. Calcium [Mass/Vol] 9.1 mg/dL Normal 8.4 - 10. 2 mg/dL AO ADM SS Chloride [Moles/Vol] 105 mmol/L Normal 98 - 10 7 mmol/L AO ADM SS CO2 [Moles/Vol] 26 mmol/L Normal 23 - 31 mmol/L AO ADM SS Creatinine [Mass/Vol] 1.55 mg/dL High 0.55 - 1.02 mg/dL AO ADM SS Comment on above: Interpretive Data: T esting performed on Siemens Dimension EXL analyzer using a modified kinetic Nate technique. Electrolyte Balance 9.0 mEq/L Normal 4.0 - 15 .0 mEq/L AO ADM SS Eosinophil, Absolute 0.2 103/mcL Normal 0.0 - 0 .7 10^3/mcL AO Workflow SS Eosinophils/100 WBC (Bld) 2.9 % Normal 0.0 - 7.0 % AO Workflow SS Erythrocyte distribution width (RBC) [Ratio] 19.5 % High 11.5 - 15.5 % AO Workflow SS Estimated Glomerular Filtration Rate 33 ml/min/1.73sqm Invalid Interpretation Code AO Chemistry S Comment on above: Interpretive Data: Stages of Chronic Kidney Disease (CKD) Stage Description eGFR(ml/min/1.73 sq.m.) CKD 1 Normal kidney function or >=90 normal kindney function with possible kidney damage (ex. Proteinuria) CKD 2 Kidney damage with mild loss 60-89 of kidney function CKD 3a Mild to moderate loss of kidney 45-59 function CKD 3b Moderate to severe loss of 30-44 of kindey function CKD 4 Severe loss of kidney function 15-29 CKD 5 Kidney failure <15 Note: (go live 2024) the eGFR calculation was updated to the 2020 CKD-EPI creatinine equation without a race factor to calculate the eGFR results. Globulin 3.2 G/dL Normal 1.5 - 3.8 G/dL AO ADM SS Glucose [Mass/Vol] 152 mg/dL High 83 - 110 mg/dL AO ADM SS Hematocrit (Bld) [Volume fraction] 35.6 % Normal 34.0 - 46.0 % AO Workflow SS Hemoglobin (Bld) [Mass/Vol] 11.2 G/dL Low 12.0 - 16.0 G/dL AO Workflow SS Lymphocytes (Bld) [#/Vol] 1.5 103/mcL Normal 0.9 - 4.3 10^3/mcL AO Workflow SS Lymphocytes/100 WBC (Bld) 17.6 % Low 20.0 - 40.0 % AO Workflow SS MCH (RBC) [Entitic mass] 28.3 pg Normal 27.0 - 33.0 pg AO Workflow SS MCHC 31.6 G/dL Low 32.0 - 36.0 G/dL AO Workflow SS MCV (RBC) [Entitic vol] 89.4 fL Normal 80.0 - 99.0 fL AO Workflow SS Monocytes (Bld) [#/Vol] 0.8 103/mcL Normal 0.1 - 1.4 10^3/mcL AO Workflow SS Monocytes/100 WBC (Bld) 9.4 % Normal 2.0 - 13.0 % AO Workflow SS Neutrophils (Bld) [#/Vol] 6.0 103/mcL Normal 2.3 - 8.1 10^3/mcL AO Workflow SS Neutrophils/100 WBC (Bld) 69.6 % Normal 50.0 - 75.0 % AO Workflow SS Platelet mean volume (Bld) [Entitic vol] 7.5 fL Normal 6.6 - 10.5 fL AO Workflow SS Platelets (Bld) [#/Vol] 302 103/mcL Normal 150 - 450 10^3/mcL AO Workflow SS Potassium [Moles/Vol] 4.2 mmol/L Normal 3.5 - 5.1 mmol/L AO ADM SS Protein [Mass/Vol] 6.6 G/dL Normal 6.4 - 8.2 G/dL AO ADM SS RBC (Bld) [#/Vol] 3.98 106/mcL Low 4.10 - 5.30 10^6/mcL AO Workflow SS Sodium [Moles/Vol] 140 mmol/L Normal 136 - 145 mmol/L AO ADM SS Urea nitrogen [Mass/Vol] 58 mg/dL High 7 - 18 mg/dL AO ADM SS Urea nitrogen/Creatinine [Mass ratio] 37 ratio High 7 - 27 ratio AO ADM SS WBC (Bld) [#/Vol] 8.6 103/mcL Normal 4.5 - 10.8 10^3/mcL AO Workflow SS Gastroenterology Visit Repor ton 09-10-2024 Gastroenterology Visit Report Normal [facility] Basic Metabolic Profile (BMP )on 09-07-2024 BUN Normal 7-18 [facility] Comment on above: Result Comment: Canc elled via OM: Order cancelled - Patient discharged Performed By: #### L 500.2500, L100.0100 ####[facility] [address] [place], [address] BUN/CRE Normal 10-20 [facility] Comment on above: Result Comment: Canc elled via OM: Order cancelled - Patient discharged Performed By: #### L 500.2500, L100.0100 ####[facility] [address] [place], [address] CA,Total Normal 8.5-10.1 [facility] Comment on above: Result Comment: Canc elled via OM: Order cancelled - Patient discharged Performed By: #### L 500.2500, L100.0100 ####[facility] [address] [place], [address] CL Normal 98-107 [facility] Comment on above: Result Comment: Canc elled via OM: Order cancelled - Patient discharged Performed By: #### L 500.2500, L100.0100 ####[facility] [address] [place], [address] CO2 Normal 21.0-32.0 [facility] Comment on above: Result Comment: Canc elled via OM: Order cancelled - Patient discharged Performed By: #### L 500.2500, L100.0100 ####[facility] [address] [place], [address] CREAT,SERUM Normal 0.55-1.02 [facility] Comment on above: Result Comment: Canc elled via OM: Order cancelled - Patient discharged Performed By: #### L 500.2500, L100.0100 ####[facility] [address] [place], [address] EST GFR Normal >60 [facility] Comment on above: Result Comment: Canc elled via OM: Order cancelled - Patient discharged Performed By: #### L 500.2500, L100.0100 ####[facility] [address] [place], [address] EST GFR - AA Normal >60 [facility] Comment on above: Result Comment: Canc elled via OM: Order cancelled - Patient discharged Performed By: #### L 500.2500, L100.0100 ####[facility] [address] [place], [address] GAP Normal 5-15 [facility] Comment on above: Result Comment: Canc elled via OM: Order cancelled - Patient discharged Performed By: #### L 500.2500, L100.0100 ####[facility] [address] [place], [address] GLU Normal 74-106 [facility] Comment on above: Result Comment: Canc elled via OM: Order cancelled - Patient discharged Performed By: #### L 500.2500, L100.0100 ####[facility] [address] [place], [address] Potassium Normal 3.5-5.1 [facility] Comment on above: Result Comment: Canc elled via OM: Order cancelled - Patient discharged Performed By: #### L 500.2500, L100.0100 ####[facility] [address] [place], [address] Basic Metabolic Profile (BMP) Normal 136-145 [facility] Comment on above: Result Comment: Canc elled via OM: Order cancelled - Patient discharged Performed By: #### L 500.2500, L100.0100 ####[facility] [address] [place], [address] CBC W/Diff, Automatedon 02- Absolute Neut Normal 2.0-7.7 [facility] Comment on above: Result Comment: Canc elled via OM: Order cancelled - Patient discharged Performed By: #### L 500.2500, L100.0100 ####[facility] [address] [place], [address] HCT Normal 37-47 [facility] Comment on above: Result Comment: Canc elled via OM: Order cancelled - Patient discharged Performed By: #### L 500.2500, L100.0100 ####[facility] [address] [place], [address] HGB Normal 12.0-15.0 [facility] Comment on above: Result Comment: Canc elled via OM: Order cancelled - Patient discharged Performed By: #### L 500.2500, L100.0100 ####[facility] [address] [place], [address] MCH Normal 27.0-32.0 [facility] Comment on above: Result Comment: Canc elled via OM: Order cancelled - Patient discharged Performed By: #### L 500.2500, L100.0100 ####[facility] [address] [place], [address] MCHC Normal 32-36 [facility] Comment on above: Result Comment: Canc elled via OM: Order cancelled - Patient discharged Performed By: #### L 500.2500, L100.0100 ####[facility] [address] [place], [address] MCV Normal 81-99 [facility] Comment on above: Result Comment: Canc elled via OM: Order cancelled - Patient discharged Performed By: #### L 500.2500, L100.0100 ####[facility] [address] [place], [address] NEUT% Normal 47-70 [facility] Comment on above: Result Comment: Canc elled via OM: Order cancelled - Patient discharged Performed By: #### L 500.2500, L100.0100 ####[facility] [address] [place], [address] PLT Normal 150-450 [facility] Comment on above: Result Comment: Canc elled via OM: Order cancelled - Patient discharged Performed By: #### L 500.2500, L100.0100 ####[facility] [address] [place], [address] RBC Normal 4.2-5.4 [facility] Comment on above: Result Comment: Canc elled via OM: Order cancelled - Patient discharged Performed By: #### L 500.2500, L100.0100 ####[facility] [address] [place], [address] RDW CV Normal 11.6-14.6 [facility] Comment on above: Result Comment: Canc elled via OM: Order cancelled - Patient discharged Performed By: #### L 500.2500, L100.0100 ####[facility] [address] [place], [address] RDW SD Normal 35.1-43.9 [facility] Comment on above: Result Comment: Canc elled via OM: Order cancelled - Patient discharged Performed By: #### L 500.2500, L100.0100 ####[facility] [address] [place], [address] WBC Normal 4.4-11.0 [facility] Comment on above: Result Comment: Canc elled via OM: Order cancelled - Patient discharged Performed By: #### L 500.2500, L100.0100 ####[facility] [address] [place], [address] Basic Metabolic Profile (BMP )on 09-06-2024 BUN Normal 7-18 [facility] Comment on above: Result Comment: Canc elled via OM: Order cancelled - Patient discharged Performed By: #### L 100.0100, L500.2500 ####[facility] [address] [place], [address] BUN/CRE Normal 10-20 [facility] Comment on above: Result Comment: Canc elled via OM: Order cancelled - Patient discharged Performed By: #### L 100.0100, L500.2500 ####[facility] [address] [place], [address] CA,Total Normal 8.5-10.1 [facility] Comment on above: Result Comment: Canc elled via OM: Order cancelled - Patient discharged Performed By: #### L 100.0100, L500.2500 ####[facility] [address] [place], [address] CL Normal 98-107 [facility] Comment on above: Result Comment: Canc elled via OM: Order cancelled - Patient discharged Performed By: #### L 100.0100, L500.2500 ####[facility] [address] [place], [address] CO2 Normal 21.0-32.0 [facility] Comment on above: Result Comment: Canc elled via OM: Order cancelled - Patient discharged Performed By: #### L 100.0100, L500.2500 ####[facility] [address] [place], [address] CREAT,SERUM Normal 0.55-1.02 [facility] Comment on above: Result Comment: Canc elled via OM: Order cancelled - Patient discharged Performed By: #### L 100.0100, L500.2500 ####[facility] [address] [place], [address] EST GFR Normal >60 [facility] Comment on above: Result Comment: Canc elled via OM: Order cancelled - Patient discharged Performed By: #### L 100.0100, L500.2500 ####[facility] [address] [place], [address] EST GFR - AA Normal >60 [facility] Comment on above: Result Comment: Canc elled via OM: Order cancelled - Patient discharged Performed By: #### L 100.0100, L500.2500 ####[facility] [address] [place], [address] GAP Normal 5-15 [facility] Comment on above: Result Comment: Canc elled via OM: Order cancelled - Patient discharged Performed By: #### L 100.0100, L500.2500 ####[facility] [address] [place], [address] GLU Normal 74-106 [facility] Comment on above: Result Comment: Canc elled via OM: Order cancelled - Patient discharged Performed By: #### L 100.0100, L500.2500 ####[facility] [address] [place], [address] Potassium Normal 3.5-5.1 [facility] Comment on above: Result Comment: Canc elled via OM: Order cancelled - Patient discharged Performed By: #### L 100.0100, L500.2500 ####[facility] [address] [place], [address] Basic Metabolic Profile (BMP) Normal 136-145 [facility] Comment on above: Result Comment: Canc elled via OM: Order cancelled - Patient discharged Performed By: #### L 100.0100, L500.2500 ####[facility] [address] [place], [address] CBC W/Diff, Automatedon 02 PATH REV Reviewed Normal [facility] Comment on above: Result Comment: Neut rophilic leukocytosis with left shift.Normocytic anemia, NRBC's ARE NOTEDThrombocytosis.Clinical correlation necessary.Angel Donaldson M.D. 09/06/24 AMENDED REPORT 09/06/24 1337 PATH REV previously reported as: November brielle Performed By: #### L 100.0100, L500.2500 ####[facility] [address] [place], [address] Absolute Neut Normal 2.0-7.7 [facility] Comment on above: Result Comment: Canc elled via OM: Order cancelled - Patient discharged Performed By: #### L 100.0100, L500.2500 ####[facility] [address] [place], [address] HCT Normal 37-47 [facility] Comment on above: Result Comment: Canc elled via OM: Order cancelled - Patient discharged Performed By: #### L 100.0100, L500.2500 ####[facility] [address] [place], [address] HGB Normal 12.0-15.0 [facility] Comment on above: Result Comment: Canc elled via OM: Order cancelled - Patient discharged Performed By: #### L 100.0100, L500.2500 ####[facility] [address] [place], [address] MCH Normal 27.0-32.0 [facility] Comment on above: Result Comment: Canc elled via OM: Order cancelled - Patient discharged Performed By: #### L 100.0100, L500.2500 ####[facility] [address] [place], [address] MCHC Normal 32-36 [facility] Comment on above: Result Comment: Canc elled via OM: Order cancelled - Patient discharged Performed By: #### L 100.0100, L500.2500 ####[facility] [address] [place], [address] MCV Normal 81-99 [facility] Comment on above: Result Comment: Canc elled via OM: Order cancelled - Patient discharged Performed By: #### L 100.0100, L500.2500 ####[facility] [address] [place], [address] NEUT% Normal 47-70 [facility] Comment on above: Result Comment: Canc elled via OM: Order cancelled - Patient discharged Performed By: #### L 100.0100, L500.2500 ####[facility] [address] [place], [address] PLT Normal 150-450 [facility] Comment on above: Result Comment: Canc elled via OM: Order cancelled - Patient discharged Performed By: #### L 100.0100, L500.2500 ####[facility] [address] [place], [address] RBC Normal 4.2-5.4 [facility] Comment on above: Result Comment: Canc elled via OM: Order cancelled - Patient discharged Performed By: #### L 100.0100, L500.2500 ####[facility] [address] [place], [address] RDW CV Normal 11.6-14.6 [facility] Comment on above: Result Comment: Canc elled via OM: Order cancelled - Patient discharged Performed By: #### L 100.0100, L500.2500 ####[facility] [address] [place], [address] RDW SD Normal 35.1-43.9 [facility] Comment on above: Result Comment: Canc elled via OM: Order cancelled - Patient discharged Performed By: #### L 100.0100, L500.2500 ####[facility] [address] [place], [address] WBC Normal 4.4-11.0 [facility] Comment on above: Result Comment: Canc elled via OM: Order cancelled - Patient discharged Performed By: #### L 100.0100, L500.2500 ####[facility] [address] [place], [address] Basic Metabolic Profile (BMP )on 09-05-2024 BUN Normal 7-18 [facility] Comment on above: Result Comment: Canc elled via OM: Order cancelled - Patient discharged Performed By: #### L 500.2500, L100.0100 ####[facility] [address] [place], [address] BUN/CRE Normal 10-20 [facility] Comment on above: Result Comment: Canc elled via OM: Order cancelled - Patient discharged Performed By: #### L 500.2500, L100.0100 ####[facility] [address] [place], [address] CA,Total Normal 8.5-10.1 [facility] Comment on above: Result Comment: Canc elled via OM: Order cancelled - Patient discharged Performed By: #### L 500.2500, L100.0100 ####[facility] [address] [place], [address] CL Normal 98-107 [facility] Comment on above: Result Comment: Canc elled via OM: Order cancelled - Patient discharged Performed By: #### L 500.2500, L100.0100 ####[facility] [address] [place], [address] CO2 Normal 21.0-32.0 [facility] Comment on above: Result Comment: Canc elled via OM: Order cancelled - Patient discharged Performed By: #### L 500.2500, L100.0100 ####[facility] [address] [place], [address] CREAT,SERUM Normal 0.55-1.02 [facility] Comment on above: Result Comment: Canc elled via OM: Order cancelled - Patient discharged Performed By: #### L 500.2500, L100.0100 ####[facility] [address] [place], [address] EST GFR Normal >60 [facility] Comment on above: Result Comment: Canc elled via OM: Order cancelled - Patient discharged Performed By: #### L 500.2500, L100.0100 ####[facility] [address] [place], [address] EST GFR - AA Normal >60 [facility] Comment on above: Result Comment: Canc elled via OM: Order cancelled - Patient discharged Performed By: #### L 500.2500, L100.0100 ####[facility] [address] [place], [address] GAP Normal 5-15 [facility] Comment on above: Result Comment: Canc elled via OM: Order cancelled - Patient discharged Performed By: #### L 500.2500, L100.0100 ####[facility] [address] [place], [address] GLU Normal 74-106 [facility] Comment on above: Result Comment: Canc elled via OM: Order cancelled - Patient discharged Performed By: #### L 500.2500, L100.0100 ####[facility] [address] [place], [address] Potassium Normal 3.5-5.1 [facility] Comment on above: Result Comment: Canc elled via OM: Order cancelled - Patient discharged Performed By: #### L 500.2500, L100.0100 ####[facility] [address] [place], [address] Basic Metabolic Profile (BMP) Normal 136-145 [facility] Comment on above: Result Comment: Canc elled via OM: Order cancelled - Patient discharged Performed By: #### L 500.2500, L100.0100 ####[facility] [address] [place], [address] CBC W/Diff, Automatedon 02-0 Absolute Neut Normal 2.0-7.7 [facility] Comment on above: Result Comment: Canc elled via OM: Order cancelled - Patient discharged Performed By: #### L 500.2500, L100.0100 ####[facility] [address] [place], [address] HCT Normal 37-47 [facility] Comment on above: Result Comment: Canc elled via OM: Order cancelled - Patient discharged Performed By: #### L 500.2500, L100.0100 ####[facility] [address] [place], [address] HGB Normal 12.0-15.0 [facility] Comment on above: Result Comment: Canc elled via OM: Order cancelled - Patient discharged Performed By: #### L 500.2500, L100.0100 ####[facility] [address] [place], [address] MCH Normal 27.0-32.0 [facility] Comment on above: Result Comment: Canc elled via OM: Order cancelled - Patient discharged Performed By: #### L 500.2500, L100.0100 ####[facility] [address] [place], [address] MCHC Normal 32-36 [facility] Comment on above: Result Comment: Canc elled via OM: Order cancelled - Patient discharged Performed By: #### L 500.2500, L100.0100 ####[facility] [address] [place], [address] MCV Normal 81-99 [facility] Comment on above: Result Comment: Canc elled via OM: Order cancelled - Patient discharged Performed By: #### L 500.2500, L100.0100 ####[facility] [address] [place], [address] NEUT% Normal 47-70 [facility] Comment on above: Result Comment: Canc elled via OM: Order cancelled - Patient discharged Performed By: #### L 500.2500, L100.0100 ####[facility] [address] [place], [address] PLT Normal 150-450 [facility] Comment on above: Result Comment: Canc elled via OM: Order cancelled - Patient discharged Performed By: #### L 500.2500, L100.0100 ####[facility] [address] [place], [address] RBC Normal 4.2-5.4 [facility] Comment on above: Result Comment: Canc elled via OM: Order cancelled - Patient discharged Performed By: #### L 500.2500, L100.0100 ####[facility] [address] [place], [address] RDW CV Normal 11.6-14.6 [facility] Comment on above: Result Comment: Canc elled via OM: Order cancelled - Patient discharged Performed By: #### L 500.2500, L100.0100 ####[facility] [address] [place], [address] RDW SD Normal 35.1-43.9 [facility] Comment on above: Result Comment: Canc elled via OM: Order cancelled - Patient discharged Performed By: #### L 500.2500, L100.0100 ####[facility] [address] [place], [address] WBC Normal 4.4-11.0 [facility] Comment on above: Result Comment: Canc elled via OM: Order cancelled - Patient discharged Performed By: #### L 500.2500, L100.0100 ####[facility] [address] [place], [address] Basic Metabolic Profile (BMP )on 09-04-2024 BUN Normal 7-18 [facility] Comment on above: Result Comment: Canc elled via OM: Order cancelled - Patient discharged Performed By: #### L 100.0100, L500.2500 ####[facility] [address] [place], [address] BUN/CRE Normal 10-20 [facility] Comment on above: Result Comment: Canc elled via OM: Order cancelled - Patient discharged Performed By: #### L 100.0100, L500.2500 ####[facility] [address] [place], [address] CA,Total Normal 8.5-10.1 [facility] Comment on above: Result Comment: Canc elled via OM: Order cancelled - Patient discharged Performed By: #### L 100.0100, L500.2500 ####[facility] [address] [place], [address] CL Normal 98-107 [facility] Comment on above: Result Comment: Canc elled via OM: Order cancelled - Patient discharged Performed By: #### L 100.0100, L500.2500 ####[facility] [address] [place], [address] CO2 Normal 21.0-32.0 [facility] Comment on above: Result Comment: Canc elled via OM: Order cancelled - Patient discharged Performed By: #### L 100.0100, L500.2500 ####[facility] [address] [place], [address] CREAT,SERUM Normal 0.55-1.02 [facility] Comment on above: Result Comment: Canc elled via OM: Order cancelled - Patient discharged Performed By: #### L 100.0100, L500.2500 ####[facility] [address] [place], [address] EST GFR Normal >60 [facility] Comment on above: Result Comment: Canc elled via OM: Order cancelled - Patient discharged Performed By: #### L 100.0100, L500.2500 ####[facility] [address] [place], [address] EST GFR - AA Normal >60 [facility] Comment on above: Result Comment: Canc elled via OM: Order cancelled - Patient discharged Performed By: #### L 100.0100, L500.2500 ####[facility] [address] [place], [address] GAP Normal 5-15 [facility] Comment on above: Result Comment: Canc elled via OM: Order cancelled - Patient discharged Performed By: #### L 100.0100, L500.2500 ####[facility] [address] [place], [address] GLU Normal 74-106 [facility] Comment on above: Result Comment: Canc elled via OM: Order cancelled - Patient discharged Performed By: #### L 100.0100, L500.2500 ####[facility] [address] [place], [address] Potassium Normal 3.5-5.1 [facility] Comment on above: Result Comment: Canc elled via OM: Order cancelled - Patient discharged Performed By: #### L 100.0100, L500.2500 ####[facility] [address] [place], [address] Basic Metabolic Profile (BMP) Normal 136-145 [facility] Comment on above: Result Comment: Canc elled via OM: Order cancelled - Patient discharged Performed By: #### L 100.0100, L500.2500 ####[facility] [address] [place], [address] CBC W/Diff, Automatedon 02-0 -2024 Absolute Neut Normal 2.0-7.7 [facility] Comment on above: Result Comment: Canc elled via OM: Order cancelled - Patient discharged Performed By: #### L 100.0100, L500.2500 ####[facility] [address] [place], [address] HCT Normal 37-47 [facility] Comment on above: Result Comment: Canc elled via OM: Order cancelled - Patient discharged Performed By: #### L 100.0100, L500.2500 ####[facility] [address] [place], [address] HGB Normal 12.0-15.0 [facility] Comment on above: Result Comment: Canc elled via OM: Order cancelled - Patient discharged Performed By: #### L 100.0100, L500.2500 ####[facility] [address] [place], [address] MCH Normal 27.0-32.0 [facility] Comment on above: Result Comment: Canc elled via OM: Order cancelled - Patient discharged Performed By: #### L 100.0100, L500.2500 ####[facility] [address] [place], [address] MCHC Normal 32-36 [facility] Comment on above: Result Comment: Canc elled via OM: Order cancelled - Patient discharged Performed By: #### L 100.0100, L500.2500 ####[facility] [address] [place], [address] MCV Normal 81-99 [facility] Comment on above: Result Comment: Canc elled via OM: Order cancelled - Patient discharged Performed By: #### L 100.0100, L500.2500 ####[facility] [address] [place], [address] NEUT% Normal 47-70 [facility] Comment on above: Result Comment: Canc elled via OM: Order cancelled - Patient discharged Performed By: #### L 100.0100, L500.2500 ####[facility] [address] [place], [address] PLT Normal 150-450 [facility] Comment on above: Result Comment: Canc elled via OM: Order cancelled - Patient discharged Performed By: #### L 100.0100, L500.2500 ####[facility] [address] [place], [address] RBC Normal 4.2-5.4 [facility] Comment on above: Result Comment: Canc elled via OM: Order cancelled - Patient discharged Performed By: #### L 100.0100, L500.2500 ####[facility] [address] [place], [address] RDW CV Normal 11.6-14.6 [facility] Comment on above: Result Comment: Canc elled via OM: Order cancelled - Patient discharged Performed By: #### L 100.0100, L500.2500 ####[facility] [address] [place], [address] RDW SD Normal 35.1-43.9 [facility] Comment on above: Result Comment: Canc elled via OM: Order cancelled - Patient discharged Performed By: #### L 100.0100, L500.2500 ####[facility] [address] [place], [address] WBC Normal 4.4-11.0 [facility] Comment on above: Result Comment: Canc elled via OM: Order cancelled - Patient discharged Performed By: #### L 100.0100, L500.2500 ####[facility] [address] [place], [address] Basic Metabolic Profile (BMP )on 09-03-2024 BUN/CRE 35.7 RATIO High 10-20 [facility] Comment on above: Performed By: #### L 100.0100, L500.2500 ####[facility] [address] [place], [address] CA,Total 8.8 mg/dL Normal 8.5-10.1 [facility] Comment on above: Performed By: #### L 100.0100, L500.2500 ####[facility] [address] [place], [address] Chloride [Moles/Vol] 107 mmol/L Normal 98-107 [facility] Comment on above: Performed By: #### L 100.0100, L500.2500 ####[facility] [address] [place], [address] CO2 [Moles/Vol] 26.0 mmol/L Normal 21.0-32.0 [facility] Comment on above: Performed By: #### L 100.0100, L500.2500 ####[facility] [address] [place], [address] Creatinine [Mass/Vol] 1.12 mg/dL High 0.55-1.02 [facility] Comment on above: Result Comment: The validity of the calculated GFR GFRAA in patients over70 years has not been determined. Clinical correlation isessential. Performed By: #### L 100.0100, L500.2500 ####[facility] [address] [place], [address] ECRCL 32.08 ml/min Normal [facility] Comment on above: Performed By: #### L 100.0100, L500.2500 ####[facility] [address] [place], [address] EST GFR - AA 60 mL/min Normal >60 [facility] Comment on above: Result Comment: Afri can Japanese GFR Calc Performed By: #### L 100.0100, L500.2500 ####[facility] [address] [place], [address] GAP 6 Normal 5-15 [facility] Comment on above: Performed By: #### L 100.0100, L500.2500 ####[facility] [address] [place], [address] GFR/1.73 sq M.predicted among non-blacks MDRD (S/P/Bld) [Vol rate/Area] 50 mL/min/{1.73_m2} Low >60 [facility] Comment on above: Result Comment: Non- GFR Calc Performed By: #### L 100.0100, L500.2500 ####[facility] [address] [place], [address] Glucose [Mass/Vol] 226 mg/dL High 74-106 [facility] Comment on above: Result Comment: Gluc ose result greater than or equal to 200 mg/dLsuggests DIABETES MELLITUS per A.D.A. criteria. Performed By: #### L 100.0100, L500.2500 ####[facility] [address] [place], [address] Potassium [Moles/Vol] 4.4 mmol/L Normal 3.5-5.1 [facility] Comment on above: Performed By: #### L 100.0100, L500.2500 ####[facility] [address] [place], [address] Sodium [Moles/Vol] 138 mmol/L Normal 136-145 [facility] Comment on above: Performed By: #### L 100.0100, L500.2500 ####[facility] [address] [place], [address] Urea nitrogen [Mass/Vol] 40 mg/dL High 7-18 [facility] Comment on above: Performed By: #### L 100.0100, L500.2500 ####[facility] [address] [place], [address] Bedside Glucoseon 09-03-2024 FINGERSTICK GLU 336 mg/dL High 74-106 [facility] Comment on above: Result Comment: SKY GEMENT OF PATIENT CARE PER NURSING PROTOCOL Performed By: #### L 501.080 ####[facility] [address] [place], [address] FINGERSTICK GLU 123 mg/dL High 74-106 [facility] Comment on above: Result Comment: SKY GEMENT OF PATIENT CARE PER NURSING PROTOCOL Performed By: #### L 501.080 ####[facility] [address] [place], [address] FINGERSTICK GLU 223 mg/dL High 74-106 [facility] Comment on above: Result Comment: SKY GEMENT OF PATIENT CARE PER NURSING PROTOCOL Performed By: #### L 501.080 ####[facility] [address] [place], [address] CBC W/Diff, Automatedon 02-0 PATH REV Reviewed Normal [facility] Comment on above: Result Comment: Leuk ocytosis WITH Neutrophilic left shift.Normocytic anemia.NRBC's ARE NOTEDThrombocytosis.Clinical correlation necessary.Angel Donaldson M.D. 09/03/24 AMENDED REPORT 09/03/24 1342 PATH REV previously reported as: Carissa hannah Performed By: #### L 500.2500, L100.0100 ####[facility] [address] [place], [address] BRCon 09-02-2024 RC Normal [facility] Comment on above: Result Comment: [id number] AP RC TRANSFUSED 09/02/24 [id number] AP RC TRANSFUSED 09/03/24 0105 Performed By: #### B FAUSTINO, [facility] [place] ####[facility] [address] [place], [address] Basic Metabolic Profile (BMP )on 09-02-2024 BUN/CRE 38.9 RATIO High 10-20 [facility] Comment on above: Performed By: #### L 500.2500, L100.0100 ####[facility] [address] [place], [address] CA,Total 8.5 mg/dL Normal 8.5-10.1 [facility] Comment on above: Performed By: #### L 500.2500, L100.0100 ####[facility] [address] [place], [address] Chloride [Moles/Vol] 105 mmol/L Normal 98-107 [facility] Comment on above: Performed By: #### L 500.2500, L100.0100 ####[facility] [address] [place], [address] CO2 [Moles/Vol] 26.0 mmol/L Normal 21.0-32.0 [facility] Comment on above: Performed By: #### L 500.2500, L100.0100 ####[facility] [address] [place], [address] Creatinine [Mass/Vol] 1.31 mg/dL High 0.55-1.02 [facility] Comment on above: Result Comment: The validity of the calculated GFR GFRAA in patients over70 years has not been determined. Clinical correlation isessential. Performed By: #### L 500.2500, L100.0100 ####[facility] [address] [place], [address] ECRCL 27.38 ml/min Normal [facility] Comment on above: Performed By: #### L 500.2500, L100.0100 ####[facility] [address] [place], [address] EST GFR - AA 50 mL/min Low >60 [facility] Comment on above: Result Comment: Afri can Japanese GFR Calc Performed By: #### L 500.2500, L100.0100 ####[facility] [address] [place], [address] GAP 8 Normal 5-15 [facility] Comment on above: Performed By: #### L 500.2500, L100.0100 ####[facility] [address] [place], [address] GFR/1.73 sq M.predicted among non-blacks MDRD (S/P/Bld) [Vol rate/Area] 41 mL/min/{1.73_m2} Low >60 [facility] Comment on above: Result Comment: Non- GFR Calc Performed By: #### L 500.2500, L100.0100 ####[facility] [address] [place], [address] Glucose [Mass/Vol] 131 mg/dL High 74-106 [facility] Comment on above: Result Comment: Fast ing Glucose result greater than or equal to 126 mg/dLsuggests DIABETES MELLITUS per A.D.A. criteria. Performed By: #### L 500.2500, L100.0100 ####[facility] [address] [place], [address] Potassium [Moles/Vol] 4.3 mmol/L Normal 3.5-5.1 [facility] Comment on above: Performed By: #### L 500.2500, L100.0100 ####[facility] [address] [place], [address] Sodium [Moles/Vol] 138 mmol/L Normal 136-145 [facility] Comment on above: Performed By: #### L 500.2500, L100.0100 ####[facility] [address] [place], [address] Urea nitrogen [Mass/Vol] 51 mg/dL High 7-18 [facility] Comment on above: Performed By: #### L 500.2500, L100.0100 ####[facility] [address] [place], [address] Bedside Glucoseon 09-02-2024 FINGERSTICK GLU 350 mg/dL High 74-106 [facility] Comment on above: Result Comment: SKY GEMENT OF PATIENT CARE PER NURSING PROTOCOL Performed By: #### L 501.080 ####[facility] [address] [place], [address] FINGERSTICK GLU 84 mg/dL Normal 74-106 [facility] Comment on above: Result Comment: SKY GEMENT OF PATIENT CARE PER NURSING PROTOCOL Performed By: #### L 501.080 ####[facility] [address] [place], [address] FINGERSTICK GLU 363 mg/dL High 74-106 [facility] Comment on above: Result Comment: SKY GEMENT OF PATIENT CARE PER NURSING PROTOCOL Performed By: #### L 501.080 ####[facility] [address] [place], [address] FINGERSTICK GLU 114 mg/dL High 74-106 [facility] Comment on above: Result Comment: SKY GEMENT OF PATIENT CARE PER NURSING PROTOCOL Performed By: #### L 501.080 ####[facility] [address] [place], [address] FINGERSTICK GLU 135 mg/dL High 74-106 [facility] Comment on above: Result Comment: SKY GEMENT OF PATIENT CARE PER NURSING PROTOCOL Performed By: #### L 501.080 ####[facility] [address] [place], [address] FINGERSTICK GLU 146 mg/dL High 74-106 [facility] Comment on above: Result Comment: SKY DIAL OF PATIENT CARE PER NURSING PROTOCOL Performed By: #### L 501.080 ####[facility] [address] [place], [address] CBC W/Diff, Automatedon 02 PATH REV Reviewed Normal [facility] Comment on above: Result Comment: Leuk ocytosis with marked Neutrophilic left shift.Normocytic anemia.Thrombocytosis.Clinical correlation necessary.Angel Donaldson M.D. 09/02/24 AMENDED REPORT 09/02/24 1439 PATH REV previously reported as: November brielle Performed By: #### L 100.0100, L500.2500 ####[facility] [address] [place], [address] PATH REV Reviewed Normal [facility] Comment on above: Result Comment: Neut rophilic leukocytosis with left shift.Normocytic anemia.Thrombocytosis.Clinical correlation necessary.Angel Donaldson M.D. 09/02/24 AMENDED REPORT 09/02/24 0908 PATH REV previously reported as: November brielle Performed By: #### L 100.0100, L500.2500 ####[facility] [address] [place], [address] HH, Hemoglobin AND Hematocri ton 09-02-2024 Hematocrit (Bld) [Volume fraction] 24.2 % Low 37-47 [facility] Comment on above: Performed By: #### L 100.0600 ####[facility] [address] [place], [address] Hemoglobin (Bld) [Mass/Vol] 7.3 g/dL Low 12.0-15.0 [facility] Comment on above: Performed By: #### L 100.0600 ####[facility] [address] [place], [address] Type AND Screenon 09-02-2024 ABO and Rh group Nom (Bld) Blood group AB Rh(D) positive Normal [facility] Comment on above: Order Comment: CMV N EG? NNumber of units to transfuse: 2Is there a >20% drop in pt's BP? YIs the pt's CVP (central venous pressure) <3 cm/H2O? NIs the EBL >/= 1000ml in adults or >/= 12ml/kg in children?YIs there an orthostatic change in pt's BP(SBP drop>10mmHg)? YIs pt's HR > 100 bpm? YReason for Ordering Blood: AcuteAre the blood/blood products to be transfused? YIs the patient having/had surgery? YPo Mccarthy Performed By: #### B TS, BR ####[facility] [address] [place], [address] Basic Metabolic Profile (BMP )on 09-01-2024 BUN/CRE 45.0 RATIO High 10-20 [facility] Comment on above: Performed By: #### L 100.0100, L500.2500 ####[facility] [address] [place], [address] CA,Total 8.4 mg/dL Low 8.5-10.1 [facility] Comment on above: Performed By: #### L 100.0100, L500.2500 ####[facility] [address] [place], [address] Chloride [Moles/Vol] 105 mmol/L Normal 98-107 [facility] Comment on above: Performed By: #### L 100.0100, L500.2500 ####[facility] [address] [place], [address] CO2 [Moles/Vol] 25.0 mmol/L Normal 21.0-32.0 [facility] Comment on above: Performed By: #### L 100.0100, L500.2500 ####[facility] [address] [place], [address] Creatinine [Mass/Vol] 1.09 mg/dL High 0.55-1.02 [facility] Comment on above: Result Comment: The validity of the calculated GFR GFRAA in patients over70 years has not been determined. Clinical correlation isessential. Performed By: #### L 100.0100, L500.2500 ####[facility] [address] [place], [address] ECRCL 32.35 ml/min Normal [facility] Comment on above: Performed By: #### L 100.0100, L500.2500 ####[facility] [address] [place], [address] EST GFR - AA 62 mL/min Normal >60 [facility] Comment on above: Result Comment: Afri can Japanese GFR Calc Performed By: #### L 100.0100, L500.2500 ####[facility] [address] [place], [address] GAP 8 Normal 5-15 [facility] Comment on above: Performed By: #### L 100.0100, L500.2500 ####[facility] [address] [place], [address] GFR/1.73 sq M.predicted among non-blacks MDRD (S/P/Bld) [Vol rate/Area] 51 mL/min/{1.73_m2} Low >60 [facility] Comment on above: Result Comment: Non- GFR Calc Performed By: #### L 100.0100, L500.2500 ####[facility] [address] [place], [address] Glucose [Mass/Vol] 59 mg/dL Low 74-106 [facility] Comment on above: Performed By: #### L 100.0100, L500.2500 ####[facility] [address] [place], [address] Potassium [Moles/Vol] 3.9 mmol/L Normal 3.5-5.1 [facility] Comment on above: Performed By: #### L 100.0100, L500.2500 ####[facility] [address] [place], [address] Sodium [Moles/Vol] 139 mmol/L Normal 136-145 [facility] Comment on above: Performed By: #### L 100.0100, L500.2500 ####[facility] [address] [place], [address] Urea nitrogen [Mass/Vol] 49 mg/dL High 7-18 [facility] Comment on above: Performed By: #### L 100.0100, L500.2500 ####[facility] [address] [place], [address] Bedside Glucoseon 09-01-2024 FINGERSTICK GLU 170 mg/dL High 74-106 [facility] Comment on above: Result Comment: SKY GEMENT OF PATIENT CARE PER NURSING PROTOCOL Performed By: #### L 501.080 ####[facility] [address] [place], [address] FINGERSTICK GLU 208 mg/dL High 74-106 [facility] Comment on above: Result Comment: SKY GEMENT OF PATIENT CARE PER NURSING PROTOCOL Performed By: #### L 501.080 ####[facility] [address] [place], [address] FINGERSTICK GLU 73 mg/dL Low 74-106 [facility] Comment on above: Result Comment: SKY GEMENT OF PATIENT CARE PER NURSING PROTOCOL Performed By: #### L 501.080 ####[facility] [address] [place], [address] FINGERSTICK GLU 57 mg/dL Low 74-106 [facility] Comment on above: Result Comment: SKY GEMENT OF PATIENT CARE PER NURSING PROTOCOL Performed By: #### L 501.080 ####[facility] [address] [place], [address] FINGERSTICK GLU 121 mg/dL High 74-106 [facility] Comment on above: Result Comment: SKY GEMENT OF PATIENT CARE PER NURSING PROTOCOL Performed By: #### L 501.080 ####[facility] [address] [place], [address] FINGERSTICK GLU 245 mg/dL High 74-106 [facility] Comment on above: Result Comment: SKY GEMENT OF PATIENT CARE PER NURSING PROTOCOL Performed By: #### L 501.080 ####[facility] [address] [place], [address] FINGERSTICK GLU 47 mg/dL Low 74-106 [facility] Comment on above: Result Comment: SKY GEMENT OF PATIENT CARE PER NURSING PROTOCOL Performed By: #### L 501.080 ####[facility] [address] [place], [address] EGD Reporton 09-01-2024 EGD Report Normal [facility] MR/POSTOP.ANEon 09-01-2024 MR/POSTOP.ANE Normal [facility] MR/GGKMVOJY0kh 09-01-2024 MR/POSTOPAN2 Normal [facility] Stool Occult Blood iFOBon STOB Positive Normal [facility] Comment on above: Performed By: #### M 100.7900 ####[facility] [address] [place], [address] Basic Metabolic Profile (BMP )on 08-31-2024 BUN/CRE 54.0 RATIO High 10-20 [facility] Comment on above: Performed By: #### L 100.0100, L500.2500 ####[facility] [address] [place], [address] CA,Total 9.9 mg/dL Normal 8.5-10.1 [facility] Comment on above: Performed By: #### L 100.0100, L500.2500 ####[facility] [address] [place], [address] Chloride [Moles/Vol] 106 mmol/L Normal 98-107 [facility] Comment on above: Performed By: #### L 100.0100, L500.2500 ####[facility] [address] [place], [address] CO2 [Moles/Vol] 25.0 mmol/L Normal 21.0-32.0 [facility] Comment on above: Performed By: #### L 100.0100, L500.2500 ####[facility] [address] [place], [address] Creatinine [Mass/Vol] 1.13 mg/dL High 0.55-1.02 [facility] Comment on above: Result Comment: The validity of the calculated GFR GFRAA in patients over70 years has not been determined. Clinical correlation isessential. Performed By: #### L 100.0100, L500.2500 ####[facility] [address] [place], [address] ECRCL 30.88 ml/min Normal [facility] Comment on above: Performed By: #### L 100.0100, L500.2500 ####[facility] [address] [place], [address] EST GFR - AA 59 mL/min Low >60 [facility] Comment on above: Result Comment: Afri can Japanese GFR Calc Performed By: #### L 100.0100, L500.2500 ####[facility] [address] [place], [address] GAP 7 Normal 5-15 [facility] Comment on above: Performed By: #### L 100.0100, L500.2500 ####[facility] [address] [place], [address] GFR/1.73 sq M.predicted among non-blacks MDRD (S/P/Bld) [Vol rate/Area] 49 mL/min/{1.73_m2} Low >60 [facility] Comment on above: Result Comment: Non- GFR Calc Performed By: #### L 100.0100, L500.2500 ####[facility] [address] [place], [address] Glucose [Mass/Vol] 64 mg/dL Low 74-106 [facility] Comment on above: Performed By: #### L 100.0100, L500.2500 ####[facility] [address] [place], [address] Potassium [Moles/Vol] 5.2 mmol/L High 3.5-5.1 [facility] Comment on above: Performed By: #### L 100.0100, L500.2500 ####[facility] [address] [place], [address] Sodium [Moles/Vol] 139 mmol/L Normal 136-145 [facility] Comment on above: Performed By: #### L 100.0100, L500.2500 ####[facility] [address] [place], [address] Urea nitrogen [Mass/Vol] 61 mg/dL High 7-18 [facility] Comment on above: Performed By: #### L 100.0100, L500.2500 ####[facility] [address] [place], [address] Bedside Glucoseon 08-31-2024 FINGERSTICK GLU 125 mg/dL High 74-106 [facility] Comment on above: Result Comment: SKY DIAL OF PATIENT CARE PER NURSING PROTOCOL Performed By: #### L 501.080 ####[facility] [address] [place], [address] FINGERSTICK GLU 298 mg/dL High 74-106 [facility] Comment on above: Result Comment: SKY GEMENT OF PATIENT CARE PER NURSING PROTOCOL Performed By: #### L 501.080 ####[facility] [address] [place], [address] FINGERSTICK GLU 102 mg/dL Normal 74-106 [facility] Comment on above: Result Comment: SKY GEMENT OF PATIENT CARE PER NURSING PROTOCOL Performed By: #### L 501.080 ####[facility] [address] [place], [address] CBC W/Diff, Automatedon -0 PATH REV Reviewed Normal [facility] Comment on above: Result Comment: ANEM IALEUKOCYTOSISNEUTROPHILIALEFT SHIFTClinical correlation necessary.Maral Doe M.D. 08/31/24 AMENDED REPORT 08/31/24 1352 PATH REV previously reported as: November Performed By: #### L 100.0100 ####[facility] [address] [place], [address] Culture, Blood (WB)on 2024 CUB Blood cultures x2, f rom two different sites No growth in 5 days. Normal [facility] Comment on above: Performed By: #### L 503.6005, M200.1000, L100.0100, L300.3900, L300.4310, L500.4050 ####[facility] [address] [place], [address] MR/CON.PCM.GIon 08-31-2024 MR/CON.PCM.GI Normal [facility] Bedside Glucoseon 08-30-2024 FINGERSTICK GLU 270 mg/dL High 74-106 [facility] Comment on above: Result Comment: SKY GEMENT OF PATIENT CARE PER NURSING PROTOCOL Performed By: #### L 501.080 ####[facility] [address] [place], [address] FINGERSTICK GLU 140 mg/dL High 74-106 [facility] Comment on above: Result Comment: SKY GEMENT OF PATIENT CARE PER NURSING PROTOCOL Performed By: #### L 501.080 ####[facility] [address] [place], [address] FINGERSTICK GLU 253 mg/dL High 74-106 [facility] Comment on above: Result Comment: SKY GEMENT OF PATIENT CARE PER NURSING PROTOCOL Performed By: #### L 501.080 ####[facility] [address] [place], [address] FINGERSTICK GLU 161 mg/dL High 74-106 [facility] Comment on above: Result Comment: SKY GEMENT OF PATIENT CARE PER NURSING PROTOCOL Performed By: #### L 501.080 ####[facility] [address] [place], [address] Discharge Instructionon 02-0 Discharge Instruction Normal [facility] Ferritinon 08-30-2024 Ferritin [Mass/Vol] 46 ng/mL Normal 8-252 [facility] Comment on above: Performed By: #### L 503.6030, L503.6550 ####[facility] [address] [place], [address] Iron+Iron Binding Capacityon 08-30-2024 Iron [Mass/Vol] 20 ug/dL Low 50-170 [facility] Comment on above: Performed By: #### L 503.6030, L503.6550 ####[facility] [address] [place], [address] IRON SATURATION 8.0 Low 15.0-55.0 [facility] Comment on above: Performed By: #### L 503.6030, L503.6550 ####[facility] [address] [place], [address] TIBC 250 ug/dL Normal 250-450 [facility] Comment on above: Performed By: #### L 503.6030, L503.6550 ####[facility] [address] [place], [address] Bedside Glucoseon 08-29-2024 FINGERSTICK GLU 154 mg/dL High [address] [place] [address] Comment on above: Result Comment: SKY GEMENT OF PATIENT CARE PER NURSING PROTOCOL Performed By: #### L 501.080 ####[facility] [address] [place], [address] FINGERSTICK GLU 183 mg/dL High [address] [place] [address] Comment on above: Result Comment: SKY GEMENT OF PATIENT CARE PER NURSING PROTOCOL Performed By: #### L 501.080 ####[facility] [address] [place], [address] FINGERSTICK GLU 404 mg/dL High [address] [place] [address] Comment on above: Result Comment: Dr Rivka dickerson FollowedMANAGEMENT OF PATIENT CARE PER NURSING PROTOCOL Performed By: #### L 501.080 ####[facility] [address] [place], [address] FINGERSTICK GLU 250 mg/dL High [address] [place] [address] Comment on above: Result Comment: SKY GEMENT OF PATIENT CARE PER NURSING PROTOCOL Performed By: #### L 501.080 ####[facility] [address] [place], [address] FINGERSTICK GLU 427 mg/dL High [address] [place] [address] Comment on above: Result Comment: SKY GEMENT OF PATIENT CARE PER NURSING PROTOCOL Performed By: #### L 501.080 ####[facility] [address] [place], [address] Bedside Glucoseon 5 FINGERSTICK GLU 463 mg/dL Invalid Interpretation Code [address] [place] [address] Comment on above: Result Comment: Dr Rvika dickerson FollowedMANAGEMENT OF PATIENT CARE PER NURSING PROTOCOL Performed By: #### L 501.080 ####[facility] [address] [place], [address] FINGERSTICK GLU 372 mg/dL High 74-106 [facility] Comment on above: Result Comment: SKY GEMENT OF PATIENT CARE PER NURSING PROTOCOL Performed By: #### L 501.080 ####[facility] [address] [place], [address] FINGERSTICK GLU 154 mg/dL High 74-106 [facility] Comment on above: Result Comment: SKY GEMENT OF PATIENT CARE PER NURSING PROTOCOL Performed By: #### L 501.080 ####[facility] [address] [place], [address] FINGERSTICK GLU 276 mg/dL High 74-106 [facility] Comment on above: Result Comment: SKY GEMENT OF PATIENT CARE PER NURSING PROTOCOL Performed By: #### L 501.080 ####[facility] [address] [place], [address] BUNon 08-27-2024 Urea nitrogen [Mass/Vol] 51 mg/dL High 7-18 [facility] Comment on above: Order Comment: PER Fady COHENAY TO ADD ON TO GLUCOSE DRAW (SEE [id number] FORGLUCOSE RESULT @2241) Performed By: #### L 501.5900, L501.1000, L501.5600, L501.5300, L501.2200, L501.1105, L501.6100 ####[facility] [address] [place], [address] Bedside Glucoseon 08-27-2024 FINGERSTICK GLU 473 mg/dL Invalid Interpretation Code 74-106 [facility] Comment on above: Result Comment: Insu julienne GivenMANAGEMENT OF PATIENT CARE PER NURSING PROTOCOL Performed By: #### L 501.080 ####[facility] [address] [place], [address] FINGERSTICK GLU > 500 Invalid Interpretation Code 74-106 [facility] Comment on above: Result Comment: SKY GEMENT OF PATIENT CARE PER NURSING PROTOCOL Performed By: #### L 501.080 ####[facility] [address] [place], [address] FINGERSTICK GLU > 500 Invalid Interpretation Code [address] [place] [address] Comment on above: Result Comment: Dr Rivka dickerson FollowedMANAGEMENT OF PATIENT CARE PER NURSING PROTOCOL Performed By: #### L 501.080 ####[facility] [address] [place], [address] FINGERSTICK GLU > 500 Invalid Interpretation Code [address] [place] [address] Comment on above: Result Comment: Repe at TestMANAGEMENT OF PATIENT CARE PER NURSING PROTOCOL Performed By: #### L 501.080 ####[facility] [address] [place], [address] FINGERSTICK GLU > 500 Invalid Interpretation Code [address] [place] [address] Comment on above: Result Comment: SKY GEMENT OF PATIENT CARE PER NURSING PROTOCOL Performed By: #### L 501.080 ####[facility] [address] [place], [address] FINGERSTICK GLU 238 mg/dL High [address] [place] [address] Comment on above: Result Comment: SKY GEMENT OF PATIENT CARE PER NURSING PROTOCOL Performed By: #### L 501.080 ####[facility] [address] [place], [address] FINGERSTICK GLU 297 mg/dL High [address] [place] [address] Comment on above: Result Comment: SKY GEMENT OF PATIENT CARE PER NURSING PROTOCOL Performed By: #### L 501.080 ####[facility] [address] [place], [address] CBC W/Diff, Automatedon 07-30 Absolute Lymph 0.59 X10 3/uL Low 0.83-4.51 [facility] Comment on above: Performed By: #### L 500.4050, L100.0100 ####[facility] [address] [place], [address] Absolute Neut 10.4 X10 3/uL High 2.0-7.7 [facility] Comment on above: Performed By: #### L 500.4050, L100.0100 ####[facility] [address] [place], [address] Basophils/100 WBC (Bld) 0.2 % Normal 0-1 [facility] Comment on above: Performed By: #### L 500.4050, L100.0100 ####[facility] [address] [place], [address] Eosinophils/100 WBC (Bld) 0.1 % Normal 0-5 [facility] Comment on above: Performed By: #### L 500.4050, L100.0100 ####[facility] [address] [place], [address] Erythrocyte distribution width (RBC) [Ratio] 15.9 % High 11.6-14.6 [facility] Comment on above: Performed By: #### L 500.4050, L100.0100 ####[facility] [address] [place], [address] Hematocrit (Bld) [Volume fraction] 23.5 % Low 37-47 [facility] Comment on above: Performed By: #### L 500.4050, L100.0100 ####[facility] [address] [place], [address] Hemoglobin (Bld) [Mass/Vol] 7.2 g/dL Low 12.0-15.0 [facility] Comment on above: Performed By: #### L 500.4050, L100.0100 ####[facility] [address] [place], [address] IG% 2.700 High 0.0-0.9 [facility] Comment on above: Result Comment: IG% - Immature Granulocytes (promyelocytes, myelocytes andmetamyelocytes) > 1% indicates that a LEFT SHIFT is Present. Performed By: #### L 500.4050, L100.0100 ####[facility] [address] [place], [address] Lymphocytes/100 WBC (Bld) 5.0 % Low 19-41 [facility] Comment on above: Performed By: #### L 500.4050, L100.0100 ####[facility] [address] [place], [address] MCH (RBC) [Entitic mass] 27.8 pg Normal 27.0-32.0 [facility] Comment on above: Performed By: #### L 500.4050, L100.0100 ####[facility] [address] [place], [address] MCHC (RBC) [Mass/Vol] 30.6 g/dL Low 32-36 [facility] Comment on above: Performed By: #### L 500.4050, L100.0100 ####[facility] [address] [place], [address] MCV (RBC) [Entitic vol] 90.7 fL Normal 81-99 [facility] Comment on above: Performed By: #### L 500.4050, L100.0100 ####[facility] [address] [place], [address] Monocytes/100 WBC (Bld) 4.5 % Normal 0-10 [facility] Comment on above: Performed By: #### L 500.4050, L100.0100 ####[facility] [address] [place], [address] Neutrophils/100 WBC (Bld) 87.5 % High 47-70 [facility] Comment on above: Performed By: #### L 500.4050, L100.0100 ####[facility] [address] [place], [address] Nucleated RBC (Bld) [#/Vol] 0 10*3/uL Normal 0-5 [facility] Comment on above: Performed By: #### L 500.4050, L100.0100 ####[facility] [address] [place], [address] Platelet mean volume (Bld) [Entitic vol] 9.5 fL Normal 6.2-12.0 [facility] Comment on above: Performed By: #### L 500.4050, L100.0100 ####[facility] [address] [place], [address] Platelets (Bld) [#/Vol] 533 10*3/uL High 150-450 [facility] Comment on above: Performed By: #### L 500.4050, L100.0100 ####[facility] [address] [place], [address] RBC (Bld) [#/Vol] 2.59 10*6/uL Low 4.2-5.4 [facility] Comment on above: Performed By: #### L 500.4050, L100.0100 ####[facility] [address] [place], [address] RDW SD 52.7 fl High 35.1-43.9 [facility] Comment on above: Performed By: #### L 500.4050, L100.0100 ####[facility] [address] [place], [address] WBC (Bld) [#/Vol] 11.8 10*3/uL High 4.4-11.0 [facility] Comment on above: Performed By: #### L 500.4050, L100.0100 ####[facility] [address] [place], [address] Calcium,Totalon 08-27-2024 CA,Total 8.8 mg/dL Normal 8.5-10.1 [facility] Comment on above: Order Comment: PER Fady RICARDO TO ADD ON TO GLUCOSE DRAW (SEE 0130:C429 FORGLUCOSE RESULT @2244) Performed By: #### L 501.5900, L501.1000, L501.5600, L501.5300, L501.2200, L501.1105, L501.6100 ####[facility] [address] [place], [address] Carbon Dioxideon 08-27-2024 CO2 [Moles/Vol] 16.0 mmol/L Low 21.0-32.0 [facility] Comment on above: Order Comment: PER Fady RICARDO TO ADD ON TO GLUCOSE DRAW (SEE 0130:C429 FORGLUCOSE RESULT @2244) Performed By: #### L 501.5900, L501.1000, L501.5600, L501.5300, L501.2200, L501.1105, L501.6100 ####[facility] [address] [place], [place], [address] Chlorideon 08-27-2024 Chloride [Moles/Vol] 98 mmol/L Normal 98-107 [facility] Comment on above: Order Comment: PER Fady RICARDO TO ADD ON TO GLUCOSE DRAW (SEE 0130:C429 FORGLUCOSE RESULT @2244) Performed By: #### L 501.5900, L501.1000, L501.5600, L501.5300, L501.2200, L501.1105, L501.6100 ####[facility] [address] [place], [place], [address] Comprehensive Metabolic Prof ilon 08-27-2024 Albumin [Mass/Vol] 2.2 g/dL Low 3.2-5.0 [facility] Comment on above: Performed By: #### L 500.4050, L100.0100 ####[facility] [address] [place], [address] Albumin/Globulin [Mass ratio] 0.5 {ratio} Low 0.9-2.4 [facility] Comment on above: Performed By: #### L 500.4050, L100.0100 ####[facility] [address] [place], [address] ALK P 75 U/L Normal 45-117 [facility] Comment on above: Performed By: #### L 500.4050, L100.0100 ####[facility] [address] [place], [address] ALT [Catalytic activity/Vol] 18 U/L Normal 13-56 [facility] Comment on above: Performed By: #### L 500.4050, L100.0100 ####[facility] [address] [place], [address] AST [Catalytic activity/Vol] 13 U/L Low 15-37 [facility] Comment on above: Performed By: #### L 500.4050, L100.0100 ####[facility] [address] [place], [address] Bilirubin [Mass/Vol] 0.20 mg/dL Normal 0.20-1.00 [facility] Comment on above: Result Comment: For patients on eltrombopag therapy, use of Dimension Leland TBIL is not recommended. Performed By: #### L 500.4050, L100.0100 ####[facility] [address] [place], [address] BUN/CRE 39.3 RATIO High 10-20 [facility] Comment on above: Performed By: #### L 500.4050, L100.0100 ####[facility] [address] [place], [address] CA,Total 8.8 mg/dL Normal 8.5-10.1 [facility] Comment on above: Performed By: #### L 500.4050, L100.0100 ####[facility] [address] [place], [address] Chloride [Moles/Vol] 108 mmol/L High 98-107 [facility] Comment on above: Performed By: #### L 500.4050, L100.0100 ####[facility] [address] [place], [address] CO2 [Moles/Vol] 18.0 mmol/L Low 21.0-32.0 [facility] Comment on above: Performed By: #### L 500.4050, L100.0100 ####[facility] [address] [place], [address] Creatinine [Mass/Vol] 1.22 mg/dL High 0.55-1.02 [facility] Comment on above: Result Comment: The validity of the calculated GFR GFRAA in patients over70 years has not been determined. Clinical correlation isessential. Performed By: #### L 500.4050, L100.0100 ####[facility] [address] [place], [address] ECRCL 28.44 ml/min Normal [facility] Comment on above: Performed By: #### L 500.4050, L100.0100 ####[facility] [address] [place], [address] EST GFR - AA 54 mL/min Low >60 [facility] Comment on above: Result Comment: Afri can Japanese GFR Calc Performed By: #### L 500.4050, L100.0100 ####[facility] [address] [place], [address] GAP 9 Normal 5-15 [facility] Comment on above: Performed By: #### L 500.4050, L100.0100 ####[facility] [address] [place], [address] GFR/1.73 sq M.predicted among non-blacks MDRD (S/P/Bld) [Vol rate/Area] 45 mL/min/{1.73_m2} Low >60 [facility] Comment on above: Result Comment: Non- GFR Calc Performed By: #### L 500.4050, L100.0100 ####[facility] [address] [place], [address] Globulin (S) [Mass/Vol] 4.3 g/dL High 2.2-4.2 [facility] Comment on above: Performed By: #### L 500.4050, L100.0100 ####[facility] [address] [place], [address] Glucose [Mass/Vol] 231 mg/dL High 74-106 [facility] Comment on above: Result Comment: Gluc ose result greater than or equal to 200 mg/dLsuggests DIABETES MELLITUS per A.D.A. criteria. Performed By: #### L 500.4050, L100.0100 ####[facility] [address] [place], [address] Potassium [Moles/Vol] 5.6 mmol/L High 3.5-5.1 [facility] Comment on above: Performed By: #### L 500.4050, L100.0100 ####[facility] [address] [place], [address] Sodium [Moles/Vol] 135 mmol/L Low 136-145 [facility] Comment on above: Performed By: #### L 500.4050, L100.0100 ####[facility] [address] [place], [address] T PROT 6.5 g/dL Normal 6.4-8.2 [facility] Comment on above: Performed By: #### L 500.4050, L100.0100 ####[facility] [address] [place], [address] Urea nitrogen [Mass/Vol] 48 mg/dL High 7-18 [facility] Comment on above: Performed By: #### L 500.4050, L100.0100 ####[facility] [address] [place] [place], [address] Glucoseon 08-27-2024 Glucose [Mass/Vol] 741 mg/dL Invalid Interpretation Code 74-106 [facility] Comment on above: Result Comment: Crit ical Result(s) Called at: 12:14:56 08/27/2024 by: [place] to Giovanni Franco. Results read back by same.Glucose result greater than or equal to 200 mg/dLsuggests DIABETES MELLITUS per A.D.A. criteria. Performed By: #### L 501.0100 ####[facility] [address] [place] [place], [address] Potassiumon 08-27-2024 Potassium [Moles/Vol] 5.5 mmol/L High 3.5-5.1 [facility] Comment on above: Order Comment: PER Fady RICARDO TO ADD ON TO GLUCOSE DRAW (SEE 0130:C429 FORGLUCOSE RESULT @5) Performed By: #### L 501.5900, L501.1000, L501.5600, L501.5300, L501.2200, L501.1105, L501.6100 ####[facility] [address] [place], [address] Serum Creatinine AND GFRon 0 08-27-2024 Creatinine [Mass/Vol] 1.56 mg/dL High 0.55-1.02 [facility] Comment on above: Order Comment: PER Fady COHENAY TO ADD ON TO GLUCOSE DRAW (SEE 0130:C429 FORGLUCOSE RESULT @5) Result Comment: The validity of the calculated GFR GFRAA in patients over70 years has not been determined. Clinical correlation isessential. Performed By: #### L 501.5900, L501.1000, L501.5600, L501.5300, L501.2200, L501.1105, L501.6100 ####[facility] [address] [place], [place], [phone]) ECRCL 22.26 ml/min Normal [facility] Comment on above: Order Comment: PER Fady RICARDO TO ADD ON TO GLUCOSE DRAW (SEE 0130:C429 FORGLUCOSE RESULT @2245) Performed By: #### L 501.5900, L501.1000, L501.5600, L501.5300, L501.2200, L501.1105, L501.6100 ####[facility] [address] [place], [place], [address] EST GFR - AA 41 mL/min Low >60 [facility] Comment on above: Order Comment: PER Fady RICARDO TO ADD ON TO GLUCOSE DRAW (SEE 0130:C429 FORGLUCOSE RESULT @2245) Result Comment: Afri can Japanese GFR Calc Performed By: #### L 501.5900, L501.1000, L501.5600, L501.5300, L501.2200, L501.1105, L501.6100 ####[facility] [address] [place], [place], [address] GFR/1.73 sq M.predicted among non-blacks MDRD (S/P/Bld) [Vol rate/Area] 34 mL/min/{1.73_m2} Low >60 [facility] Comment on above: Order Comment: PER Fady RICARDO TO ADD ON TO GLUCOSE DRAW (SEE 0130:C429 FORGLUCOSE RESULT @2245) Result Comment: Non- GFR Calc Performed By: #### L 501.5900, L501.1000, L501.5600, L501.5300, L501.2200, L501.1105, L501.6100 ####[facility] [address] [place], [place], [id number] Sodium Levelon 08-27-2024 Sodium [Moles/Vol] 125 mmol/L Low 136-145 [facility] Comment on above: Order Comment: PER Fady TINOCO OKAY TO ADD ON TO GLUCOSE DRAW (SEE 0130:C429 FORGLUCOSE RESULT @2248) Performed By: #### L 501.5900, L501.1000, L501.5600, L501.5300, L501.2200, L501.1105, L501.6100 ####[facility] [address] [place], [address] Urine Cultureon 08-27-2024 URC Culture exhibits no growth. Normal [facility] Comment on above: Performed By: #### M 100.2200, L400.0001, M100.678 ####[facility] [address] [place], [address] 12 Lead EKGon 08-26-2024 12 Lead EKG Normal [facility] Bedside Glucoseon 08-26-2024 FINGERSTICK GLU 321 mg/dL High 74-106 [facility] Comment on above: Result Comment: SKY GEMENT OF PATIENT CARE PER NURSING PROTOCOL Performed By: #### L 501.080 ####[facility] [address] [place], [address] FINGERSTICK GLU 487 mg/dL Invalid Interpretation Code 74-106 [facility] Comment on above: Result Comment: SKY GEMENT OF PATIENT CARE PER NURSING PROTOCOL Performed By: #### L 501.080 ####[facility] [address] [place], [address] FINGERSTICK GLU 240 mg/dL High 74-106 [facility] Comment on above: Result Comment: SKY GEMENT OF PATIENT CARE PER NURSING PROTOCOL Performed By: #### L 501.080 ####[facility] [address] [place], [address] CBC W/Diff, Automatedon 07-30 Absolute Lymph 0.61 X10 3/uL Low 0.83-4.51 [facility] Comment on above: Performed By: #### L 503.6005, M200.1000, L100.0100, L300.3900, L300.4310, L500.4050 ####[facility] [address] [place], [address] Absolute Neut 10.7 X10 3/uL High 2.0-7.7 [facility] Comment on above: Performed By: #### L 503.6005, M200.1000, L100.0100, L300.3900, L300.4310, L500.4050 ####[facility] [address] [place], [address] Basophils/100 WBC (Bld) 0.5 % Normal 0-1 [facility] Comment on above: Performed By: #### L 503.6005, M200.1000, L100.0100, L300.3900, L300.4310, L500.4050 ####[facility] [address] [place], [address] Eosinophils/100 WBC (Bld) 1.2 % Normal 0-5 [facility] Comment on above: Performed By: #### L 503.6005, M200.1000, L100.0100, L300.3900, L300.4310, L500.4050 ####[facility] [address] [place], [address] Erythrocyte distribution width (RBC) [Ratio] 15.9 % High 11.6-14.6 [facility] Comment on above: Performed By: #### L 503.6005, M200.1000, L100.0100, L300.3900, L300.4310, L500.4050 ####[facility] [address] [place], [address] Hematocrit (Bld) [Volume fraction] 29.9 % Low 37-47 [facility] Comment on above: Performed By: #### L 503.6005, M200.1000, L100.0100, L300.3900, L300.4310, L500.4050 ####[facility] [address] [place], [address] Hemoglobin (Bld) [Mass/Vol] 9.0 g/dL Low 12.0-15.0 [facility] Comment on above: Performed By: #### L 503.6005, M200.1000, L100.0100, L300.3900, L300.4310, L500.4050 ####[facility] [address] [place], [address] IG% 1.600 High 0.0-0.9 [facility] Comment on above: Result Comment: IG% - Immature Granulocytes (promyelocytes, myelocytes andmetamyelocytes) > 1% indicates that a LEFT SHIFT is Present. Performed By: #### L 503.6005, M200.1000, L100.0100, L300.3900, L300.4310, L500.4050 ####[facility] [address] [place], [address] Lymphocytes/100 WBC (Bld) 4.8 % Low 19-41 [facility] Comment on above: Performed By: #### L 503.6005, M200.1000, L100.0100, L300.3900, L300.4310, L500.4050 ####[facility] [address] [place], [address] MCH (RBC) [Entitic mass] 27.6 pg Normal 27.0-32.0 [facility] Comment on above: Performed By: #### L 503.6005, M200.1000, L100.0100, L300.3900, L300.4310, L500.4050 ####[facility] [address] [place], [address] MCHC (RBC) [Mass/Vol] 30.1 g/dL Low 32-36 [facility] Comment on above: Performed By: #### L 503.6005, M200.1000, L100.0100, L300.3900, L300.4310, L500.4050 ####[facility] [address] [place], [address] MCV (RBC) [Entitic vol] 91.7 fL Normal 81-99 [facility] Comment on above: Performed By: #### L 503.6005, M200.1000, L100.0100, L300.3900, L300.4310, L500.4050 ####[facility] [address] [place], [address] Monocytes/100 WBC (Bld) 7.2 % Normal 0-10 [facility] Comment on above: Performed By: #### L 503.6005, M200.1000, L100.0100, L300.3900, L300.4310, L500.4050 ####[facility] [address] [place], [address] Neutrophils/100 WBC (Bld) 84.7 % High 47-70 [facility] Comment on above: Performed By: #### L 503.6005, M200.1000, L100.0100, L300.3900, L300.4310, L500.4050 ####[facility] [address] [place], [address] Nucleated RBC (Bld) [#/Vol] 0 10*3/uL Normal 0-5 [facility] Comment on above: Performed By: #### L 503.6005, M200.1000, L100.0100, L300.3900, L300.4310, L500.4050 ####[facility] [address] [place], [address] Platelet mean volume (Bld) [Entitic vol] 9.1 fL Normal 6.2-12.0 [facility] Comment on above: Performed By: #### L 503.6005, M200.1000, L100.0100, L300.3900, L300.4310, L500.4050 ####[facility] [address] [place], [address] Platelets (Bld) [#/Vol] 552 10*3/uL High 150-450 [facility] Comment on above: Performed By: #### L 503.6005, M200.1000, L100.0100, L300.3900, L300.4310, L500.4050 ####[facility] [address] [place], [address] RBC (Bld) [#/Vol] 3.26 10*6/uL Low 4.2-5.4 [facility] Comment on above: Performed By: #### L 503.6005, M200.1000, L100.0100, L300.3900, L300.4310, L500.4050 ####[facility] [address] [place], [address] RDW SD 54.0 fl High 35.1-43.9 [facility] Comment on above: Performed By: #### L 503.6005, M200.1000, L100.0100, L300.3900, L300.4310, L500.4050 ####[facility] [address] [place], [address] WBC (Bld) [#/Vol] 12.6 10*3/uL High 4.4-11.0 [facility] Comment on above: Performed By: #### L 503.6005, M200.1000, L100.0100, L300.3900, L300.4310, L500.4050 ####[facility] [address] [place], [address] CTA Chest W/WO Contraston 01 -30-2025 CTA Chest W/WO Contrast Normal [facility] Chest 1 View (Portable)on Chest 1 View (Portable) Normal [facility] Comprehensive Metabolic Prof ilon 08-26-2024 Albumin [Mass/Vol] 2.3 g/dL Low 3.2-5.0 [facility] Comment on above: Performed By: #### L 503.6005, M200.1000, L100.0100, L300.3900, L300.4310, L500.4050 ####[facility] [address] [place], [address] Albumin/Globulin [Mass ratio] 0.5 {ratio} Low 0.9-2.4 [facility] Comment on above: Performed By: #### L 503.6005, M200.1000, L100.0100, L300.3900, L300.4310, L500.4050 ####[facility] [address] [place], [address] ALK P 88 U/L Normal 45-117 [facility] Comment on above: Performed By: #### L 503.6005, M200.1000, L100.0100, L300.3900, L300.4310, L500.4050 ####[facility] [address] [place], [address] ALT [Catalytic activity/Vol] 24 U/L Normal 13-56 [facility] Comment on above: Performed By: #### L 503.6005, M200.1000, L100.0100, L300.3900, L300.4310, L500.4050 ####[facility] [address] [place], [address] AST [Catalytic activity/Vol] 15 U/L Normal 15-37 [facility] Comment on above: Performed By: #### L 503.6005, M200.1000, L100.0100, L300.3900, L300.4310, L500.4050 ####[facility] [address] [place], [address] Bilirubin [Mass/Vol] 0.30 mg/dL Normal 0.20-1.00 [facility] Comment on above: Result Comment: For patients on eltrombopag therapy, use of Dimension [place] TBIL is not recommended. Performed By: #### L 503.6005, M200.1000, L100.0100, L300.3900, L300.4310, L500.4050 ####[facility] [address] [place], [address] BUN/CRE 29.0 RATIO High 10-20 [facility] Comment on above: Performed By: #### L 503.6005, M200.1000, L100.0100, L300.3900, L300.4310, L500.4050 ####[facility] [address] [place], [address] CA,Total 9.2 mg/dL Normal 8.5-10.1 [facility] Comment on above: Performed By: #### L 503.6005, M200.1000, L100.0100, L300.3900, L300.4310, L500.4050 ####[facility] [address] [place], [address] Chloride [Moles/Vol] 104 mmol/L Normal 98-107 [facility] Comment on above: Performed By: #### L 503.6005, M200.1000, L100.0100, L300.3900, L300.4310, L500.4050 ####[facility] [address] [place], [address] CO2 [Moles/Vol] 21.0 mmol/L Normal 21.0-32.0 [facility] Comment on above: Performed By: #### L 503.6005, M200.1000, L100.0100, L300.3900, L300.4310, L500.4050 ####[facility] [address] [place], [address] Creatinine [Mass/Vol] 1.24 mg/dL High 0.55-1.02 [facility] Comment on above: Result Comment: The validity of the calculated GFR GFRAA in patients over70 years has not been determined. Clinical correlation isessential. Performed By: #### L 503.6005, M200.1000, L100.0100, L300.3900, L300.4310, L500.4050 ####[facility] [address] [place], [place], [phone] ECRCL 28.39 ml/min Normal [facility] Comment on above: Performed By: #### L 503.6005, M200.1000, L100.0100, L300.3900, L300.4310, L500.4050 ####[facility] [address] [place], [address] EST GFR - AA 53 mL/min Low >60 [facility] Comment on above: Result Comment: Afri can Japanese GFR Calc Performed By: #### L 503.6005, M200.1000, L100.0100, L300.3900, L300.4310, L500.4050 ####[facility] [address] [place], [place], [id number] GAP 8 Normal 5-15 [facility] Comment on above: Performed By: #### L 503.6005, M200.1000, L100.0100, L300.3900, L300.4310, L500.4050 ####[facility] [address] [place], [address] GFR/1.73 sq M.predicted among non-blacks MDRD (S/P/Bld) [Vol rate/Area] 44 mL/min/{1.73_m2} Low >60 [facility] Comment on above: Result Comment: Non- GFR Calc Performed By: #### L 503.6005, M200.1000, L100.0100, L300.3900, L300.4310, L500.4050 ####[facility] [address] [place], [address] Globulin (S) [Mass/Vol] 4.9 g/dL High 2.2-4.2 [facility] Comment on above: Performed By: #### L 503.6005, M200.1000, L100.0100, L300.3900, L300.4310, L500.4050 ####[facility] [address] [place], [address] Glucose [Mass/Vol] 222 mg/dL High 74-106 [facility] Comment on above: Result Comment: Gluc ose result greater than or equal to 200 mg/dLsuggests DIABETES MELLITUS per A.D.A. criteria. Performed By: #### L 503.6005, M200.1000, L100.0100, L300.3900, L300.4310, L500.4050 ####[facility] [address] [place], [address] Potassium [Moles/Vol] 5.0 mmol/L Normal 3.5-5.1 [facility] Comment on above: Performed By: #### L 503.6005, M200.1000, L100.0100, L300.3900, L300.4310, L500.4050 ####[facility] [address] [place], [address] Sodium [Moles/Vol] 133 mmol/L Low 136-145 [facility] Comment on above: Performed By: #### L 503.6005, M200.1000, L100.0100, L300.3900, L300.4310, L500.4050 ####[facility] [address] [place], [address] T PROT 7.2 g/dL Normal 6.4-8.2 [facility] Comment on above: Performed By: #### L 503.6005, M200.1000, L100.0100, L300.3900, L300.4310, L500.4050 ####[facility] [address] [place], [address] Urea nitrogen [Mass/Vol] 36 mg/dL High 7-18 [facility] Comment on above: Performed By: #### L 503.6005, M200.1000, L100.0100, L300.3900, L300.4310, L500.4050 ####[facility] [address] [place], [address] Emergency Department Summary on 08-26-2024 Emergency Department Summary Normal [facility] Glucoseon 08-26-2024 Glucose [Mass/Vol] 702 mg/dL Invalid Interpretation Code 74-106 [facility] Comment on above: Result Comment: Crit ical Result(s) Called at: 23:20:49 08/26/2024 by: JAC. Results read back by Glucose result greater than or equal to 200 mg/dLsuggests DIABETES MELLITUS per A.D.A. criteria. Performed By: #### L 501.0100 ####[facility] [address] [place], [address] H AND P Exam - Hospitaliston 08-26-2024 H&P Exam - Hospitalist Normal [facility] Hemoglobin A1con 08-26-2024 HbA1c (Bld) [Mass fraction] 7.8 % High 3.8-5.6 [facility] Comment on above: Result Comment: Norm al < 5.7 % Prediabetic 5.7 - 6.4 % Diabetic >or= 6.5 % Please note range changes. Performed By: #### L 501.9520, L501.9921 ####[facility] [address] [place], [address] Lactic Acidon 08-26-2024 Lactate [Moles/Vol] 1.0 mmol/L Normal 0.4-1.9 [facility] Comment on above: Order Comment: Y Performed By: #### L 503.6005, M200.1000, L100.0100, L300.3900, L300.4310, L500.4050 ####[facility] [address] [place], [address] Legionella Antigen Urineon 0 08-26-2024 LEGU Normal [facility] Comment on above: Performed By: #### M 300.4600, M300.4500 ####[facility] [address] [place], [address] M100.678on 08-26-2024 M100.678 Pending SARS-CoV-2 (COVID 19) Negative INFLUENZA A Negative INFLUENZA B Negative RSV PCR Negative Normal [facility] Comment on above: Performed By: #### M 100.2200, L400.0001, M100.678 ####[facility] [address] [place], [address] Magnesiumon 08-26-2024 Magnesium [Mass/Vol] 2.1 mg/dL Normal 1.6-2.6 [facility] Comment on above: Performed By: #### L 501.2300, L501.5200 ####[facility] [address] [place], [address] Partial Thromboplast Timeon 08-26-2024 aPTT Coag (Bld) [Time] 45.8 s High 24.1-36.2 [facility] Comment on above: Performed By: #### L 503.6005, M200.1000, L100.0100, L300.3900, L300.4310, L500.4050 ####[facility] [address] [place], [address] Phosphoruson 08-26-2024 Phosphate [Mass/Vol] 3.3 mg/dL Normal 2.5-4.9 [facility] Comment on above: Performed By: #### L 501.2300, L501.5200 ####[facility] [address] [place], [address] Prothrombin Time w/INRon INR Coag (PPP) [Relative time] 1.5 {INR} Normal [facility] Comment on above: Performed By: #### L 503.6005, M200.1000, L100.0100, L300.3900, L300.4310, L500.4050 ####[facility] [address] [place], [address] PT Coag (PPP) [Time] 18.2 s High 11.7-14.9 [facility] Comment on above: Performed By: #### L 503.6005, M200.1000, L100.0100, L300.3900, L300.4310, L500.4050 ####[facility] [address] [place], [address] Strep pneumoniae Antig(UR,CS F)on 08-26-2024 STPAG Normal [facility] Comment on above: Performed By: #### M 300.4600, M300.4500 ####[facility] [address] [place], [address] Thyroid Stim Hormone (TSH)on 08-26-2024 TSH 0.656 uIU/mL Normal 0.358-3.74 0 [facility] Comment on above: Performed By: #### L 501.1420, L501.9985 ####[facility] [address] [place], [address] Urinalysis, Completeon 08-26 BACTERIA 1+ /hpf Normal None Seen [facility] Comment on above: Order Comment: CLEAN CATCH Performed By: #### M 100.2200, L400.0001, M100.678 ####[facility] [address] [place], [address] EPI,SQUAMOUS 0-5 SEEN Normal 5-10 [facility] Comment on above: Order Comment: CLEAN CATCH Performed By: #### M 100.2200, L400.0001, M100.678 ####[facility] [address] [place], [address] EPI,TRANSITION 0-5 SEEN Normal 0-5 [facility] Comment on above: Order Comment: CLEAN CATCH Performed By: #### M 100.2200, L400.0001, M100.678 ####[facility] [address] [place], [address] WBC 5-10 SEEN Normal 0-5 [facility] Comment on above: Order Comment: CLEAN CATCH Performed By: #### M 100.2200, L400.0001, M100.678 ####[facility] [address] [place], [address] BILIRUBIN URINE Negative Normal Negative [facility] Comment on above: Order Comment: CLEAN CATCH Performed By: #### M 100.2200, L400.0001, M100.678 ####[facility] [address] [place], [address] Clarity (U) Clear Normal Clear [facility] Comment on above: Order Comment: CLEAN CATCH Performed By: #### M 100.2200, L400.0001, M100.678 ####[facility] [address] [place], [address] Color (U) Yellow Normal Yellow [facility] Comment on above: Order Comment: CLEAN CATCH Performed By: #### M 100.2200, L400.0001, M100.678 ####[facility] [address] [place], [address] GLUCOSE, UR Normal Normal Normal [facility] Comment on above: Order Comment: CLEAN CATCH Performed By: #### M 100.2200, L400.0001, M100.678 ####[facility] [address] [place], [address] KETONE UR 5 mg/dl Abnormal Negative [facility] Comment on above: Order Comment: CLEAN CATCH Performed By: #### M 100.2200, L400.0001, M1.8 ####[facility] [address] [place], [address] LEUK ESTERASE 25 /ul Abnormal Negative [facility] Comment on above: Order Comment: CLEAN CATCH Performed By: #### M 100.2200, L400.0001, M1.8 ####[facility] [address] [place], [address] Nitrite Ql (U) Negative Normal Negative [facility] Comment on above: Order Comment: CLEAN CATCH Performed By: #### M 100.2200, L400.0001, M1.678 ####[facility] [address] [place], [address] OCCULT BLOOD-UR 10 /ul Abnormal Negative [facility] Comment on above: Order Comment: CLEAN CATCH Performed By: #### M 100.2200, L400.0001, M1.8 ####[facility] [address] [place], [address] pH UR 6.0 Normal 5.0 - 8.0 [facility] Comment on above: Order Comment: CLEAN CATCH Performed By: #### M 100.2200, L400.0001, M1.678 ####[facility] [address] [place], [address] PROT DIPSTX 30 mg/dl Abnormal Negative [facility] Comment on above: Order Comment: CLEAN CATCH Performed By: #### M 100.2200, L400.0001, M1.678 ####[facility] [address] [place], [address] SP.GR. DIPSTX 1.010 Normal 1.002-1.03 0 [facility] Comment on above: Order Comment: CLEAN CATCH Performed By: #### M 100.2200, L400.0001, M100.678 ####[facility] [address] [place], [address] UROBILI Normal Normal Normal [facility] Comment on above: Order Comment: CLEAN CATCH Performed By: #### M 100.2200, L400.0001, M100.678 ####[facility] [address] [place], [address] Mucus Ql (Urine sed) 0 SEEN Normal [facility] Comment on above: Order Comment: CLEAN CATCH Performed By: #### M 100.2200, L400.0001, M100.678 ####[facility] [address] [place], [address] RBC 0 SEEN Normal 0-5 [facility] Comment on above: Order Comment: CLEAN CATCH Performed By: #### M 100.2200, L400.0001, M100.678 ####[facility] [address] [place], [address] Gram Stainon 08-24-2024 GS Acceptable Specimen? Yes (<25 Epithelial cells per/lpf) Gram Stain 4+ Gram positive rods 4+ White Blood Cells 1+ Epithelial cells 1+ Gram positive cocci Normal [facility] Comment on above: Performed By: #### M 100.1999, M100.2400 ####[facility] [address] [place], [address] Respiratory Cultureon 2024 RESPC Mixed normal respira tory stormy. No Streptococcus pneumoniae, beta-hemolytic Streptococcus or Staphylococcus aureus isolated. Normal [facility] Comment on above: Performed By: #### M 100.1999, M100.2400 ####[facility] [address] [place], [address] Pulmonary Visit Reporton Pulmonary Visit Report Normal [facility] Basic Metabolic Profile (BMP )on 08-19-2024 BUN/CRE 24.2 RATIO High 10-20 [facility] Comment on above: Performed By: #### L 500.2500 ####[facility] [address] [place], [address] CA,Total 8.9 mg/dL Normal 8.5-10.1 [facility] Comment on above: Performed By: #### L 500.2500 ####[facility] [address] [place], [address] Chloride [Moles/Vol] 102 mmol/L Normal 98-107 [facility] Comment on above: Performed By: #### L 500.2500 ####[facility] [address] [place], [address] CO2 [Moles/Vol] 24.0 mmol/L Normal 21.0-32.0 [facility] Comment on above: Performed By: #### L 500.2500 ####[facility] [address] [place], [address] Creatinine [Mass/Vol] 1.49 mg/dL High 0.55-1.02 [facility] Comment on above: Result Comment: The validity of the calculated GFR GFRAA in patients over70 years has not been determined. Clinical correlation isessential. Performed By: #### L 500.2500 ####[facility] [address] [place], [address] EST GFR - AA 43 mL/min Low >60 [facility] Comment on above: Result Comment: Afri can Japanese GFR Calc Performed By: #### L 500.2500 ####[facility] [address] [place], [address] GAP 8 Normal 5-15 [facility] Comment on above: Performed By: #### L 500.2500 ####[facility] [address] [place], [address] GFR/1.73 sq M.predicted among non-blacks MDRD (S/P/Bld) [Vol rate/Area] 36 mL/min/{1.73_m2} Low >60 [facility] Comment on above: Result Comment: Non- GFR Calc Performed By: #### L 500.2500 ####[facility] [address] [place], [address] Glucose [Mass/Vol] 150 mg/dL High 74-106 [facility] Comment on above: Result Comment: Fast ing Glucose result greater than or equal to 126 mg/dLsuggests DIABETES MELLITUS per A.D.A. criteria. Performed By: #### L 500.2500 ####[facility] [address] [place], [address] Potassium [Moles/Vol] 4.2 mmol/L Normal 3.5-5.1 [facility] Comment on above: Performed By: #### L 500.2500 ####[facility] [address] [place], [address] Sodium [Moles/Vol] 134 mmol/L Low 136-145 [facility] Comment on above: Performed By: #### L 500.2500 ####[facility] [address] [place], [address] Urea nitrogen [Mass/Vol] 36 mg/dL High 7-18 [facility] Comment on above: Performed By: #### L 500.2500 ####[facility] [address] [place], [address] .Auto Diffon 08-13-2024 Basophil, Absolute 0.1 10 3/mcL Normal 0.0-0.2 [facility] Comment on above: Performed By: #### G FR, CRE, BUN #### [address] [address] Basophils/100 WBC (Bld) 0.6 % Normal 0.0-2.5 [facility] Comment on above: Performed By: #### G FR, CRE, BUN #### [address] [address] Eosinophil, Absolute 0.0 10 3/mcL Normal 0.0-0.7 [facility] Comment on above: Performed By: #### G FR, CRE, BUN #### [address] [address] Eosinophils/100 WBC (Bld) 0.3 % Normal 0.0-7.0 [facility] Comment on above: Performed By: #### G FR, CRE, BUN #### [address] [address] Lymphocyte, Absolute 0.4 10 3/mcL Low 0.9-4.3 [facility] Comment on above: Performed By: #### G FR, CRE, BUN #### [address] [address] Lymphocytes/100 WBC (Bld) 3.2 % Low 20.0-40.0 [facility] Comment on above: Performed By: #### G FR, CRE, BUN #### [address] [address] Monocyte, Absolute 0.5 10 3/mcL Normal 0.1-1.4 [facility] Comment on above: Performed By: #### G FR, CRE, BUN #### [address] [address] Monocytes/100 WBC (Bld) 4.5 % Normal 2.0-13.0 [facility] Comment on above: Performed By: #### G FR, CRE, BUN #### [address] [address] Neutrophils/100 WBC (Bld) 91.4 % High 50.0-75.0 [facility] Comment on above: Performed By: #### G FR, CRE, BUN #### [address] [address] .GFRon 08-13-2024 GFR 29 ml/min/1.73sqm [facility] Comment on above: Result Comment: GFR Population mean for , Non- Americans Ages 20-29 = 116 mL/min/1.73 sq.m. Ages 30-39 = 107 mL/min/1.73 sq.m. Ages 40-49 = 99 mL/min/1.73 sq.m. Ages 50-59 = 93 mL/min/1.73 sq.m. Ages 60-69 = 85 mL/min/1.73 sq.m. Ages 70+ = 75 mL/min/1.73 sq.m. Chronic Kidney Disease: Less than 60 mL/min/1.73 square meters End Stage Renal Disease: Less than 15 mL/min/1.73 square meters Performed By: #### G FR, CRE, BUN #### [place] [address] GFR Non- 24 ml/min/1.73sqm [facility] Comment on above: Result Comment: GFR Population mean for , Non- Americans Ages 20-29 = 116 mL/min/1.73 sq.m. Ages 30-39 = 107 mL/min/1.73 sq.m. Ages 40-49 = 99 mL/min/1.73 sq.m. Ages 50-59 = 93 mL/min/1.73 sq.m. Ages 60-69 = 85 mL/min/1.73 sq.m. Ages 70+ = 75 mL/min/1.73 sq.m. Chronic Kidney Disease: Less than 60 mL/min/1.73 square meters End Stage Renal Disease: Less than 15 mL/min/1.73 square meters Performed By: #### G FR, CRE, BUN #### [address] [address] .NEUABSon 08-13-2024 Neutrophil, Absolute 10.9 10 3/mcL High 2.3-8.1 A [facility] Comment on above: Performed By: #### G FR, CRE, BUN #### [address] [address] BMPon 08-13-2024 BUN/Creatinine Ratio 28 ratio High 7-27 [facility] Comment on above: Performed By: #### G FR, CRE, BUN #### [address] [address] Calcium [Mass/Vol] 9.1 mg/dL Normal 8.4-10.2 [facility] Comment on above: Performed By: #### G FR, CRE, BUN #### [address] [address] Chloride [Moles/Vol] 99 mmol/L Normal 98-107 [facility] Comment on above: Performed By: #### G FR, CRE, BUN #### [address] [address] CO2 [Moles/Vol] 26 mmol/L Normal 23-31 [facility] Comment on above: Performed By: #### G FR, CRE, BUN #### [address] [address] Creatinine [Mass/Vol] 2.02 mg/dL High 0.55-1.02 [facility] Comment on above: Result Comment: Test ing performed on Siemens Dimension EXL analyzer using a modified kinetic Nate technique. Performed By: #### G FR, CRE, BUN #### [address] [address] Electrolyte Balance 9.0 mEq/L Normal 4.0-15.0 [facility] Comment on above: Performed By: #### G FR, CRE, BUN #### [address] [address] Glucose [Mass/Vol] 463 mg/dL Critically abnormal 83-110 [facility] Comment on above: Performed By: #### G FR, CRE, BUN #### [address] [address] Potassium [Moles/Vol] 5.0 mmol/L Normal 3.5-5.1 [facility] Comment on above: Performed By: #### G FR, CRE, BUN #### [place] [address] Sodium [Moles/Vol] 134 mmol/L Low 136-145 [facility] Comment on above: Performed By: #### G FR, CRE, BUN #### [place] [address] Urea nitrogen [Mass/Vol] 56 mg/dL High 7-18 [facility] Comment on above: Performed By: #### G FR, CRE, BUN #### [place] [address] CBCon 08-13-2024 Erythrocyte distribution width (RBC) [Ratio] 16.9 % High 11.5-15.5 [facility] Comment on above: Performed By: #### G FR, CBC, ANEU, ADIFF, BMP #### [place] [address] Hematocrit (Bld) [Volume fraction] 33.7 % Low 34.0-46.0 [facility] Comment on above: Performed By: #### G FR, CBC, ANEU, ADIFF, BMP #### [place] [address] Hgb 10.7 G/dL Low 12.0-16.0 [facility] Comment on above: Performed By: #### G FR, CBC, ANEU, ADIFF, BMP #### [place] [address] MCH (RBC) [Entitic mass] 29.6 pg Normal 27.0-33.0 [facility] Comment on above: Performed By: #### G FR, CBC, ANEU, ADIFF, BMP #### [place] [address] MCHC 31.7 G/dL Low 32.0-36.0 [facility] Comment on above: Performed By: #### G FR, CBC, ANEU, ADIFF, BMP #### [address] [address] MCV (RBC) [Entitic vol] 93.5 fL Normal 80.0-99.0 [facility] Comment on above: Performed By: #### G FR, CBC, ANEU, ADIFF, BMP #### [place] [id number] [place], [place] [address] Platelet 319 10 3/mcL Normal 150-450 [facility] Comment on above: Performed By: #### G FR, CBC, ANEU, ADIFF, BMP #### [place] [id number] [place], [place] [address] Platelet mean volume (Bld) [Entitic vol] 7.6 fL Normal 6.6-10.5 [facility] Comment on above: Performed By: #### G FR, CBC, ANEU, ADIFF, BMP #### [address] [address] RBC 3.60 10 6/mcL Low 4.10-5.30 [facility] Comment on above: Performed By: #### G FR, CBC, ANEU, ADIFF, BMP #### [address] [address] WBC 11.9 10 3/mcL High 4.5-10.8 [facility] Comment on above: Performed By: #### G FR, CBC, ANEU, ADIFF, BMP #### [address] [address] LABORATORYOrdered By: SYSTEM SYSTEM on 08-13-2024 Basophils (Bld) [#/Vol] 0.1 103/mcL Normal 0.0 - 0.2 10^3/mcL AO Workflow SS Basophils/100 WBC (Bld) 0.6 % Normal 0.0 - 2.5 % AO Workflow SS Calcium [Mass/Vol] 9.1 mg/dL Normal 8.4 - 10. 2 mg/dL AO ADM SS Chloride [Moles/Vol] 99 mmol/L Normal 98 - 10 7 mmol/L AO ADM SS CO2 [Moles/Vol] 26 mmol/L Normal 23 - 31 mmol/L AO ADM SS Creatinine [Mass/Vol] 2.02 mg/dL High 0.55 - 1.02 mg/dL AO ADM SS Comment on above: Interpretive Data: T esting performed on Siemens Dimension EXL analyzer using a modified kinetic Nate technique. Electrolyte Balance 9.0 mEq/L Normal 4.0 - 15 .0 mEq/L AO ADM SS Eosinophil, Absolute 0.0 103/mcL Normal 0.0 - 0 .7 10^3/mcL AO Workflow SS Eosinophils/100 WBC (Bld) 0.3 % Normal 0.0 - 7.0 % AO Workflow SS Erythrocyte distribution width (RBC) [Ratio] 16.9 % High 11.5 - 15.5 % AO Workflow SS GFR/1.73 sq M.predicted among blacks MDRD (S/P/Bld) [Vol rate/Area] 29 ml/min/1.73sqm Invalid Interpretation Code AO Chemistry S Comment on above: Interpretive Data: GFR Population mean for , Non- Americans Ages 20-29 = 116 mL/min/1.73 sq.m. Ages 30-39 = 107 mL/min/1.73 sq.m. Ages 40-49 = 99 mL/min/1.73 sq.m. Ages 50-59 = 93 mL/min/1.73 sq.m. Ages 60-69 = 85 mL/min/1.73 sq.m. Ages 70+ = 75 mL/min/1.73 sq.m. Chronic Kidney Disease: Less than 60 mL/min/1.73 square meters End Stage Renal Disease: Less than 15 mL/min/1.73 square meters GFR/1.73 sq M.predicted among non-blacks MDRD (S/P/Bld) [Vol rate/Area] 24 ml/min/1.73sqm Invalid Interpretation Code AO Chemistry S Comment on above: Interpretive Data: GFR Population mean for , Non- Americans Ages 20-29 = 116 mL/min/1.73 sq.m. Ages 30-39 = 107 mL/min/1.73 sq.m. Ages 40-49 = 99 mL/min/1.73 sq.m. Ages 50-59 = 93 mL/min/1.73 sq.m. Ages 60-69 = 85 mL/min/1.73 sq.m. Ages 70+ = 75 mL/min/1.73 sq.m. Chronic Kidney Disease: Less than 60 mL/min/1.73 square meters End Stage Renal Disease: Less than 15 mL/min/1.73 square meters Glucose [Mass/Vol] 463 mg/dL Invalid Interpretation Code 83 - 110 mg/dL AO ADM SS Hematocrit (Bld) [Volume fraction] 33.7 % Low 34.0 - 46.0 % AO Workflow SS Hemoglobin (Bld) [Mass/Vol] 10.7 G/dL Low 12.0 - 16.0 G/dL AO Workflow SS Lymphocytes (Bld) [#/Vol] 0.4 103/mcL Low 0.9 - 4.3 10^3/mcL AO Workflow SS Lymphocytes/100 WBC (Bld) 3.2 % Low 20.0 - 40.0 % AO Workflow SS MCH (RBC) [Entitic mass] 29.6 pg Normal 27.0 - 33.0 pg AO Workflow SS MCHC 31.7 G/dL Low 32.0 - 36.0 G/dL AO Workflow SS MCV (RBC) [Entitic vol] 93.5 fL Normal 80.0 - 99.0 fL AO Workflow SS Monocytes (Bld) [#/Vol] 0.5 103/mcL Normal 0.1 - 1.4 10^3/mcL AO Workflow SS Monocytes/100 WBC (Bld) 4.5 % Normal 2.0 - 13.0 % AO Workflow SS Natriuretic peptide.B prohormone N-Terminal [Mass/Vol] 637 pg/mL High 0 - 450 pg/mL AO ADM SS Comment on above: Interpretive Data: N T-proBNP results of less than 300 pg/mL effectively rules out acute congestive heart failure with 99% negative predictive value. Neutrophils (Bld) [#/Vol] 10.9 103/mcL High 2.3 - 8.1 10^3/mcL AO Workflow SS Neutrophils/100 WBC (Bld) 91.4 % High 50.0 - 75.0 % AO Workflow SS Platelet mean volume (Bld) [Entitic vol] 7.6 fL Normal 6.6 - 10.5 fL AO Workflow SS Platelets (Bld) [#/Vol] 319 103/mcL Normal 150 - 450 10^3/mcL AO Workflow SS Potassium [Moles/Vol] 5.0 mmol/L Normal 3.5 - 5.1 mmol/L AO ADM SS RBC (Bld) [#/Vol] 3.60 106/mcL Low 4.10 - 5.30 10^6/mcL AO Workflow SS Sodium [Moles/Vol] 134 mmol/L Low 136 - 145 mmol/L AO ADM SS Urea nitrogen [Mass/Vol] 56 mg/dL High 7 - 18 mg/dL AO ADM SS Urea nitrogen/Creatinine [Mass ratio] 28 ratio High 7 - 27 ratio AO ADM SS WBC (Bld) [#/Vol] 11.9 103/mcL High 4.5 - 10.8 10^3/mcL AO Workflow SS PBNPon 08-13-2024 Natriuretic peptide B (Bld) [Mass/Vol] 637 pg/mL High 0-450 [facility] Comment on above: Result Comment: NT-p roBNP results of less than 300 pg/mL effectively rules out acute congestive heart failure with 99% negative predictive value. Performed By: #### P BNP #### [id number] [place], [place] [address] Pulmonary Visit Reporton Pulmonary Visit Report Normal [facility] Culture, Blood (WB)on 2024 CUB Blood cultures x2, f rom two different sites No growth in 5 days. Normal [facility] Comment on above: Performed By: #### L 500.4050, L503.6620, L503.6005, M200.1000, L300.3900, L300.4310, L501.4020, L100.0100 ####[facility] [address] [place], [address] Basic Metabolic Profile (BMP )on 08-05-2024 BUN/CRE 25.0 RATIO High 10-20 [facility] Comment on above: Performed By: #### L 500.2500, L100.0500 ####[facility] [address] [place], [address] CA,Total 8.8 mg/dL Normal 8.5-10.1 [facility] Comment on above: Performed By: #### L 500.2500, L100.0500 ####[facility] [address], [address] Chloride [Moles/Vol] 110 mmol/L High 98-107 [facility] Comment on above: Performed By: #### L 500.2500, L100.0500 ####[facility] [address] [place], [address] CO2 [Moles/Vol] 25.0 mmol/L Normal 21.0-32.0 [facility] Comment on above: Performed By: #### L 500.2500, L100.0500 ####[facility] [address] [place], [address] Creatinine [Mass/Vol] 1.28 mg/dL High 0.55-1.02 [facility] Comment on above: Result Comment: The validity of the calculated GFR GFRAA in patients over70 years has not been determined. Clinical correlation isessential. Performed By: #### L 500.2500, L100.0500 ####[facility] [address] [place], [address] ECRCL 27.87 ml/min Normal [facility] Comment on above: Performed By: #### L 500.2500, L100.0500 ####[facility] [address] [place], [address] EST GFR - AA 51 mL/min Low >60 [facility] Comment on above: Result Comment: Afri can Japanese GFR Calc Performed By: #### L 500.2500, L100.0500 ####[facility] [address] [place], [address] GAP 5 Normal 5-15 [facility] Comment on above: Performed By: #### L 500.2500, L100.0500 ####[facility] [address] [place], [address] GFR/1.73 sq M.predicted among non-blacks MDRD (S/P/Bld) [Vol rate/Area] 43 mL/min/{1.73_m2} Low >60 [facility] Comment on above: Result Comment: Non- GFR Calc Performed By: #### L 500.2500, L100.0500 ####[facility] [address] [place], [address] Glucose [Mass/Vol] 221 mg/dL High 74-106 [facility] Comment on above: Result Comment: Gluc ose result greater than or equal to 200 mg/dLsuggests DIABETES MELLITUS per A.D.A. criteria. Performed By: #### L 500.2500, L100.0500 ####[facility] [address] [place], [address] Potassium [Moles/Vol] 3.5 mmol/L Normal 3.5-5.1 [facility] Comment on above: Performed By: #### L 500.2500, L100.0500 ####[facility] [address] [place], [address] Sodium [Moles/Vol] 140 mmol/L Normal 136-145 [facility] Comment on above: Performed By: #### L 500.2500, L100.0500 ####[facility] [address] [place], [address] Urea nitrogen [Mass/Vol] 32 mg/dL High 7-18 [facility] Comment on above: Performed By: #### L 500.2500, L100.0500 ####[facility] [address] [place], [address] Bedside Glucoseon 08-05-2024 FINGERSTICK GLU 277 mg/dL High 74-106 [facility] Comment on above: Result Comment: SKY DIAL OF PATIENT CARE PER NURSING PROTOCOL Performed By: #### L 501.080 ####[facility] [address] [place], [address] FINGERSTICK GLU 153 mg/dL High 74-106 [facility] Comment on above: Result Comment: SKY GEMENT OF PATIENT CARE PER NURSING PROTOCOL Performed By: #### L 501.080 ####[facility] [address] [place], [address] FINGERSTICK GLU 170 mg/dL High 74-106 [facility] Comment on above: Result Comment: SKY GEMENT OF PATIENT CARE PER NURSING PROTOCOL Performed By: #### L 501.080 ####[facility] [address] [place], [address] FINGERSTICK GLU 251 mg/dL High 74-106 [facility] Comment on above: Result Comment: SKY GEMENT OF PATIENT CARE PER NURSING PROTOCOL Performed By: #### L 501.080 ####[facility] [address] [place], [address] CBC-Complete Blood Cnt No Di ffon 08-05-2024 Erythrocyte distribution width (RBC) [Ratio] 16.6 % High 11.6-14.6 [facility] Comment on above: Performed By: #### L 500.2500, L100.0500 ####[facility] [address] [place], [address] Hematocrit (Bld) [Volume fraction] 31.3 % Low 37-47 [facility] Comment on above: Performed By: #### L 500.2500, L100.0500 ####[facility] [address] [place], [address] Hemoglobin (Bld) [Mass/Vol] 9.3 g/dL Low 12.0-15.0 [facility] Comment on above: Performed By: #### L 500.2500, L100.0500 ####[facility] [address] [place], [address] MCH (RBC) [Entitic mass] 28.5 pg Normal 27.0-32.0 [facility] Comment on above: Performed By: #### L 500.2500, L100.0500 ####[facility] [address] [place], [address] MCHC (RBC) [Mass/Vol] 29.7 g/dL Low 32-36 [facility] Comment on above: Performed By: #### L 500.2500, L100.0500 ####[facility] [address] [place], [address] MCV (RBC) [Entitic vol] 96.0 fL Normal 81-99 [facility] Comment on above: Performed By: #### L 500.2500, L100.0500 ####[facility] [address] [place], [address] Platelet mean volume (Bld) [Entitic vol] 9.3 fL Normal 6.2-12.0 [facility] Comment on above: Performed By: #### L 500.2500, L100.0500 ####[facility] [address] [place], [address] Platelets (Bld) [#/Vol] 399 10*3/uL Normal 150-450 [facility] Comment on above: Performed By: #### L 500.2500, L100.0500 ####[facility] [address] [place], [address] RBC (Bld) [#/Vol] 3.26 10*6/uL Low 4.2-5.4 [facility] Comment on above: Performed By: #### L 500.2500, L100.0500 ####[facility] [address] [place], [address] RDW SD 58.4 fl High 35.1-43.9 [facility] Comment on above: Performed By: #### L 500.2500, L100.0500 ####[facility] [address] [place], [address] WBC (Bld) [#/Vol] 11.3 10*3/uL High 4.4-11.0 [facility] Comment on above: Performed By: #### L 500.2500, L100.0500 ####[facility] [address] [place], [address] Discharge Instructionon 01-0 Discharge Instruction Normal [facility] Urine Cultureon 08-05-2024 URC Culture exhibits no growth. Normal [facility] Comment on above: Performed By: #### M 100.678, M100.2200, L400.0001 ####[facility] [address] [place], [address] BNP,B-Type NATRIURETIC PEPTI Thiago 08-04-2024 Natriuretic peptide B (Bld) [Mass/Vol] 93.3 pg/mL Normal 0-100 [facility] Comment on above: Performed By: #### L 500.4050, L503.6620, L503.6005, M200.1000, L300.3900, L300.4310, L501.4020, L100.0100 ####[facility] [address] [place], [address] Basic Metabolic Profile (BMP )on 08-04-2024 BUN/CRE 34.3 RATIO High 10-20 [facility] Comment on above: Performed By: #### L 500.2500 ####[facility] [address] [place], [address] CA,Total 8.4 mg/dL Low 8.5-10.1 [facility] Comment on above: Performed By: #### L 500.2500 ####[facility] [address] [place], [address] Chloride [Moles/Vol] 106 mmol/L Normal 98-107 [facility] Comment on above: Performed By: #### L 500.2500 ####[facility] [address] [place], [address] CO2 [Moles/Vol] 25.0 mmol/L Normal 21.0-32.0 [facility] Comment on above: Performed By: #### L 500.2500 ####[facility] [address] [place], [address] Creatinine [Mass/Vol] 1.08 mg/dL High 0.55-1.02 [facility] Comment on above: Result Comment: The validity of the calculated GFR GFRAA in patients over70 years has not been determined. Clinical correlation isessential. Performed By: #### L 500.2500 ####[facility] [address] [place], [address] ECRCL 33.03 ml/min Normal [facility] Comment on above: Performed By: #### L 500.2500 ####[facility] [address] [place], [address] EST GFR - AA 63 mL/min Normal >60 [facility] Comment on above: Result Comment: Afri can Japanese GFR Calc Performed By: #### L 500.2500 ####[facility] [address] [place], [address] GAP 9 Normal 5-15 [facility] Comment on above: Performed By: #### L 500.2500 ####[facility] [address] [place], [address] GFR/1.73 sq M.predicted among non-blacks MDRD (S/P/Bld) [Vol rate/Area] 52 mL/min/{1.73_m2} Low >60 [facility] Comment on above: Result Comment: Non- GFR Calc Performed By: #### L 500.2500 ####[facility] [address] [place], [address] Glucose [Mass/Vol] 112 mg/dL High 74-106 [facility] Comment on above: Result Comment: Fast ing Glucose result from 100 to 125 mg/dLsuggests IMPAIRED HOMEOSTASIS per A.D.A. criteria. Performed By: #### L 500.2500 ####[facility] [address] [place], [address] Potassium [Moles/Vol] 3.7 mmol/L Normal 3.5-5.1 [facility] Comment on above: Performed By: #### L 500.2500 ####[facility] [address] [place], [address] Sodium [Moles/Vol] 139 mmol/L Normal 136-145 [facility] Comment on above: Performed By: #### L 500.2500 ####[facility] [address] [place], [address] Urea nitrogen [Mass/Vol] 37 mg/dL High 7-18 [facility] Comment on above: Performed By: #### L 500.2500 ####[facility] [address] [place], [address] Bedside Glucoseon - FINGERSTICK GLU 140 mg/dL High 74-106 [facility] Comment on above: Result Comment: SKY GEMENT OF PATIENT CARE PER NURSING PROTOCOL Performed By: #### L 501.080 ####[facility] [address] [place], [address] FINGERSTICK GLU 113 mg/dL High 74-106 [facility] Comment on above: Result Comment: SKY GEMENT OF PATIENT CARE PER NURSING PROTOCOL Performed By: #### L 501.080 ####[facility] [address] [place], [address] CBC W/Diff, Automatedon Absolute Lymph 0.40 X10 3/uL Low 0.83-4.51 [facility] Comment on above: Performed By: #### L 500.4050, L503.6620, L503.6005, M200.1000, L300.3900, L300.4310, L501.4020, L100.0100 ####[facility] [address] [place], [address] Absolute Neut 8.2 X10 3/uL High 2.0-7.7 [facility] Comment on above: Performed By: #### L 500.4050, L503.6620, L503.6005, M200.1000, L300.3900, L300.4310, L501.4020, L100.0100 ####[facility] [address] [place], [address] Basophils/100 WBC (Bld) 0.4 % Normal 0-1 [facility] Comment on above: Performed By: #### L 500.4050, L503.6620, L503.6005, M200.1000, L300.3900, L300.4310, L501.4020, L100.0100 ####[facility] [address] [place], [address] Eosinophils/100 WBC (Bld) 0.0 % Normal 0-5 [facility] Comment on above: Performed By: #### L 500.4050, L503.6620, L503.6005, M200.1000, L300.3900, L300.4310, L501.4020, L100.0100 ####[facility] [address] [place], [address] Erythrocyte distribution width (RBC) [Ratio] 16.2 % High 11.6-14.6 [facility] Comment on above: Performed By: #### L 500.4050, L503.6620, L503.6005, M200.1000, L300.3900, L300.4310, L501.4020, L100.0100 ####[facility] [address] [place], [address] Hematocrit (Bld) [Volume fraction] 28.1 % Low 37-47 [facility] Comment on above: Performed By: #### L 500.4050, L503.6620, L503.6005, M200.1000, L300.3900, L300.4310, L501.4020, L100.0100 ####[facility] [address] [place], [address] Hemoglobin (Bld) [Mass/Vol] 8.5 g/dL Low 12.0-15.0 [facility] Comment on above: Performed By: #### L 500.4050, L503.6620, L503.6005, M200.1000, L300.3900, L300.4310, L501.4020, L100.0100 ####[facility] [address] [place], [address] IG% 2.600 High 0.0-0.9 [facility] Comment on above: Result Comment: IG% - Immature Granulocytes (promyelocytes, myelocytes andmetamyelocytes) > 1% indicates that a LEFT SHIFT is Present. Performed By: #### L 500.4050, L503.6620, L503.6005, M200.1000, L300.3900, L300.4310, L501.4020, L100.0100 ####[facility] [address] [place], [address] Lymphocytes/100 WBC (Bld) 4.4 % Low 19-41 [facility] Comment on above: Performed By: #### L 500.4050, L503.6620, L503.6005, M200.1000, L300.3900, L300.4310, L501.4020, L100.0100 ####[facility] [address] [place], [address] MCH (RBC) [Entitic mass] 28.6 pg Normal 27.0-32.0 [facility] Comment on above: Performed By: #### L 500.4050, L503.6620, L503.6005, M200.1000, L300.3900, L300.4310, L501.4020, L100.0100 ####[facility] [address] [place], [address] MCHC (RBC) [Mass/Vol] 30.2 g/dL Low 32-36 [facility] Comment on above: Performed By: #### L 500.4050, L503.6620, L503.6005, M200.1000, L300.3900, L300.4310, L501.4020, L100.0100 ####[facility] [address] [place], [address] MCV (RBC) [Entitic vol] 94.6 fL Normal 81-99 [facility] Comment on above: Performed By: #### L 500.4050, L503.6620, L503.6005, M200.1000, L300.3900, L300.4310, L501.4020, L100.0100 ####[facility] [address] [place], [address] Monocytes/100 WBC (Bld) 3.0 % Normal 0-10 [facility] Comment on above: Performed By: #### L 500.4050, L503.6620, L503.6005, M200.1000, L300.3900, L300.4310, L501.4020, L100.0100 ####[facility] [address] [place], [address] Neutrophils/100 WBC (Bld) 89.6 % High 47-70 [facility] Comment on above: Performed By: #### L 500.4050, L503.6620, L503.6005, M200.1000, L300.3900, L300.4310, L501.4020, L100.0100 ####[facility] [address] [place], [address] Nucleated RBC (Bld) [#/Vol] 0 10*3/uL Normal 0-5 [facility] Comment on above: Performed By: #### L 500.4050, L503.6620, L503.6005, M200.1000, L300.3900, L300.4310, L501.4020, L100.0100 ####[facility] [address] [place], [address] Platelet mean volume (Bld) [Entitic vol] 9.4 fL Normal 6.2-12.0 [facility] Comment on above: Performed By: #### L 500.4050, L503.6620, L503.6005, M200.1000, L300.3900, L300.4310, L501.4020, L100.0100 ####[facility] [address] [place], [address] Platelets (Bld) [#/Vol] 385 10*3/uL Normal 150-450 [facility] Comment on above: Performed By: #### L 500.4050, L503.6620, L503.6005, M200.1000, L300.3900, L300.4310, L501.4020, L100.0100 ####[facility] [address] [place], [address] RBC (Bld) [#/Vol] 2.97 10*6/uL Low 4.2-5.4 [facility] Comment on above: Performed By: #### L 500.4050, L503.6620, L503.6005, M200.1000, L300.3900, L300.4310, L501.4020, L100.0100 ####[facility] [address] [place], [address] RDW SD 55.8 fl High 35.1-43.9 [facility] Comment on above: Performed By: #### L 500.4050, L503.6620, L503.6005, M200.1000, L300.3900, L300.4310, L501.4020, L100.0100 ####[facility] [address] [place], [address] WBC (Bld) [#/Vol] 9.1 10*3/uL Normal 4.4-11.0 [facility] Comment on above: Performed By: #### L 500.4050, L503.6620, L503.6005, M200.1000, L300.3900, L300.4310, L501.4020, L100.0100 ####[facility] [address] [place], [address] Chest PA and Lateralon 08-04 Chest PA and Lateral Normal [facility] Comprehensive Metabolic Prof ilon 08-04-2024 Albumin [Mass/Vol] 2.9 g/dL Low 3.2-5.0 [facility] Comment on above: Order Comment: 'TROP ' Serial specimen #1, #2 or #3: 1 Performed By: #### L 500.4050, L503.6620, L503.6005, M200.1000, L300.3900, L300.4310, L501.4020, L100.0100 ####[facility] [address] [place], [address] Albumin/Globulin [Mass ratio] 0.9 {ratio} Normal 0.9-2.4 [facility] Comment on above: Order Comment: 'TROP ' Serial specimen #1, #2 or #3: 1 Performed By: #### L 500.4050, L503.6620, L503.6005, M200.1000, L300.3900, L300.4310, L501.4020, L100.0100 ####[facility] [address] [place], [address] ALK P 46 U/L Normal 45-117 [facility] Comment on above: Order Comment: 'TROP ' Serial specimen #1, #2 or #3: 1 Performed By: #### L 500.4050, L503.6620, L503.6005, M200.1000, L300.3900, L300.4310, L501.4020, L100.0100 ####[facility] [address] [place], [address] ALT [Catalytic activity/Vol] 21 U/L Normal 13-56 [facility] Comment on above: Order Comment: 'TROP ' Serial specimen #1, #2 or #3: 1 Performed By: #### L 500.4050, L503.6620, L503.6005, M200.1000, L300.3900, L300.4310, L501.4020, L100.0100 ####[facility] [address] [place], [address] AST [Catalytic activity/Vol] 30 U/L Normal 15-37 [facility] Comment on above: Order Comment: 'TROP ' Serial specimen #1, #2 or #3: 1 Result Comment: Mode rate Hemolysis, Result may be falsely increased. Performed By: #### L 500.4050, L503.6620, L503.6005, M200.1000, L300.3900, L300.4310, L501.4020, L100.0100 ####[facility] [address] [place], [address] Bilirubin [Mass/Vol] 0.20 mg/dL Normal 0.20-1.00 [facility] Comment on above: Order Comment: 'TROP ' Serial specimen #1, #2 or #3: 1 Result Comment: For patients on eltrombopag therapy, use of Dimension Leland TBIL is not recommended. Performed By: #### L 500.4050, L503.6620, L503.6005, M200.1000, L300.3900, L300.4310, L501.4020, L100.0100 ####[facility] [address] [place], [address] BUN/CRE 27.0 RATIO High 10-20 [facility] Comment on above: Order Comment: 'TROP ' Serial specimen #1, #2 or #3: 1 Performed By: #### L 500.4050, L503.6620, L503.6005, M200.1000, L300.3900, L300.4310, L501.4020, L100.0100 ####[facility] [address] [place], [address] CA,Total 8.0 mg/dL Low 8.5-10.1 [facility] Comment on above: Order Comment: 'TROP ' Serial specimen #1, #2 or #3: 1 Performed By: #### L 500.4050, L503.6620, L503.6005, M200.1000, L300.3900, L300.4310, L501.4020, L100.0100 ####[facility] [address] [place], [address] Chloride [Moles/Vol] 97 mmol/L Low 98-107 [facility] Comment on above: Order Comment: 'TROP ' Serial specimen #1, #2 or #3: 1 Performed By: #### L 500.4050, L503.6620, L503.6005, M200.1000, L300.3900, L300.4310, L501.4020, L100.0100 ####[facility] [address] [place], [address] CO2 [Moles/Vol] 23.0 mmol/L Normal 21.0-32.0 [facility] Comment on above: Order Comment: 'TROP ' Serial specimen #1, #2 or #3: 1 Performed By: #### L 500.4050, L503.6620, L503.6005, M200.1000, L300.3900, L300.4310, L501.4020, L100.0100 ####[facility] [address] [place], [address] Creatinine [Mass/Vol] 1.74 mg/dL High 0.55-1.02 [facility] Comment on above: Order Comment: 'TROP ' Serial specimen #1, #2 or #3: 1 Result Comment: The validity of the calculated GFR GFRAA in patients over70 years has not been determined. Clinical correlation isessential. Performed By: #### L 500.4050, L503.6620, L503.6005, M200.1000, L300.3900, L300.4310, L501.4020, L100.0100 ####[facility] [address] [place], [place], [address] ECRCL 20.60 ml/min Normal [facility] Comment on above: Order Comment: 'TROP ' Serial specimen #1, #2 or #3: 1 Performed By: #### L 500.4050, L503.6620, L503.6005, M200.1000, L300.3900, L300.4310, L501.4020, L100.0100 ####[facility] [address] [place], [place], [id number] EST GFR - AA 36 mL/min Low >60 [facility] Comment on above: Order Comment: 'TROP ' Serial specimen #1, #2 or #3: 1 Result Comment: Afri can Japanese GFR Calc Performed By: #### L 500.4050, L503.6620, L503.6005, M200.1000, L300.3900, L300.4310, L501.4020, L100.0100 ####[facility] [address] [place], [address] GAP 9 Normal 5-15 [facility] Comment on above: Order Comment: 'TROP ' Serial specimen #1, #2 or #3: 1 Performed By: #### L 500.4050, L503.6620, L503.6005, M200.1000, L300.3900, L300.4310, L501.4020, L100.0100 ####[facility] [address] [place], [address] GFR/1.73 sq M.predicted among non-blacks MDRD (S/P/Bld) [Vol rate/Area] 30 mL/min/{1.73_m2} Low >60 [facility] Comment on above: Order Comment: 'TROP ' Serial specimen #1, #2 or #3: 1 Result Comment: Non- GFR Calc Performed By: #### L 500.4050, L503.6620, L503.6005, M200.1000, L300.3900, L300.4310, L501.4020, L100.0100 ####[facility] [address] [place], [address] Globulin (S) [Mass/Vol] 3.3 g/dL Normal 2.2-4.2 [facility] Comment on above: Order Comment: 'TROP ' Serial specimen #1, #2 or #3: 1 Performed By: #### L 500.4050, L503.6620, L503.6005, M200.1000, L300.3900, L300.4310, L501.4020, L100.0100 ####[facility] [address] [place], [address] Glucose [Mass/Vol] 293 mg/dL High 74-106 [facility] Comment on above: Order Comment: 'TROP ' Serial specimen #1, #2 or #3: 1 Result Comment: Gluc ose result greater than or equal to 200 mg/dLsuggests DIABETES MELLITUS per A.D.A. criteria. Performed By: #### L 500.4050, L503.6620, L503.6005, M200.1000, L300.3900, L300.4310, L501.4020, L100.0100 ####[facility] [address] [place], [address] Potassium [Moles/Vol] 5.5 mmol/L High 3.5-5.1 [facility] Comment on above: Order Comment: 'TROP ' Serial specimen #1, #2 or #3: 1 Result Comment: Mode rate Hemolysis, Result may be falsely increased. Performed By: #### L 500.4050, L503.6620, L503.6005, M200.1000, L300.3900, L300.4310, L501.4020, L100.0100 ####[facility] [address] [place], [address] Sodium [Moles/Vol] 129 mmol/L Low 136-145 [facility] Comment on above: Order Comment: 'TROP ' Serial specimen #1, #2 or #3: 1 Performed By: #### L 500.4050, L503.6620, L503.6005, M200.1000, L300.3900, L300.4310, L501.4020, L100.0100 ####[facility] [address] [place], [address] T PROT 6.2 g/dL Low 6.4-8.2 [facility] Comment on above: Order Comment: 'TROP ' Serial specimen #1, #2 or #3: 1 Performed By: #### L 500.4050, L503.6620, L503.6005, M200.1000, L300.3900, L300.4310, L501.4020, L100.0100 ####[facility] [address] [place], [address] Urea nitrogen [Mass/Vol] 47 mg/dL High 7-18 [facility] Comment on above: Order Comment: 'TROP ' Serial specimen #1, #2 or #3: 1 Performed By: #### L 500.4050, L503.6620, L503.6005, M200.1000, L300.3900, L300.4310, L501.4020, L100.0100 ####[facility] [address] [place], [address] Emergency Department Summary on 08-04-2024 Emergency Department Summary Normal [facility] H AND P Exam - Hospitaliston 08-04-2024 H&P Exam - Hospitalist Normal [facility] L501.4020on 08-04-2024 TROPONIN-I HS 5 pg/mL Normal 3.0-54.0 [facility] Comment on above: Order Comment: 'TROP ' Serial specimen #1, #2 or #3: 1 Result Comment: Plea se Note: New Test Units and Gender Specific Reference Ranges. For more information see Policy Stat Procedure Leland High Sensitivity Troponin (TNIH) and attachments. Performed By: #### L 500.4050, L503.6620, L503.6005, M200.1000, L300.3900, L300.4310, L501.4020, L100.0100 ####[facility] [address] [place], [address] Lactic Acidon 08-04-2024 Lactate [Moles/Vol] 1.5 mmol/L Normal 0.4-1.9 [facility] Comment on above: Order Comment: Y Performed By: #### L 503.6005 ####[facility] [address] [place], [address] Lactate [Moles/Vol] 2.3 mmol/L Invalid Interpretation Code 0.4-1.9 [facility] Comment on above: Order Comment: Y Result Comment: Crit ical Result(s) Called at: 00:56:20 08/04/2024 by:SUKHDEEP PAIGE TO OTONIEL BALDERRAMA. Results read back bysame. Performed By: #### L 500.4050, L503.6620, L503.6005, M200.1000, L300.3900, L300.4310, L501.4020, L100.0100 ####[facility] [address] [place], [address] M100.678on 08-04-2024 M100.678 Pending SARS-CoV-2 (COVID 19) Negative INFLUENZA A Negative INFLUENZA B Negative RSV PCR Negative Normal [facility] Comment on above: Performed By: #### M 100.678, M100.2200, L400.0001 ####[facility] [address], [address] Partial Thromboplast Timeon 08-04-2024 aPTT Coag (Bld) [Time] 24.0 s Low 24.1-36.2 [facility] Comment on above: Performed By: #### L 500.4050, L503.6620, L503.6005, M200.1000, L300.3900, L300.4310, L501.4020, L100.0100 ####[facility] [address], [address] Prothrombin Time w/INRon INR Coag (PPP) [Relative time] 1.0 {INR} Normal [facility] Comment on above: Performed By: #### L 500.4050, L503.6620, L503.6005, M200.1000, L300.3900, L300.4310, L501.4020, L100.0100 ####[facility] [address] [place], [address] PT Coag (PPP) [Time] 13.1 s Normal 11.7-14.9 [facility] Comment on above: Performed By: #### L 500.4050, L503.6620, L503.6005, M200.1000, L300.3900, L300.4310, L501.4020, L100.0100 ####[facility] [address] [place], [address] RESPIRATORY PANEL MOLECULARo n 08-04-2024 RP PANEL Normal [facility] Comment on above: Performed By: #### M 100.638 ####[facility] [address] [place], [address] Urinalysis, Completeon 08-04 BACTERIA 0 SEEN Normal None Seen [facility] Comment on above: Order Comment: CLEAN CATCH Performed By: #### M 100.678, M100.2200, L400.0001 ####[facility] [address], [address] Mucus Ql (Urine sed) 0 SEEN Normal [facility] Comment on above: Order Comment: CLEAN CATCH Performed By: #### M 100.678, M100.2200, L400.0001 ####[facility] [address] [place], [address] RBC 0 SEEN Normal 0-5 [facility] Comment on above: Order Comment: CLEAN CATCH Performed By: #### M 100.678, M100.2200, L400.0001 ####[facility] [address] [place], [address] WBC 0 SEEN Normal 0-5 [facility] Comment on above: Order Comment: CLEAN CATCH Performed By: #### M 100.678, M100.2200, L400.0001 ####[facility] [address] [place], [address] EPI,SQUAMOUS 0-5 SEEN Normal 5-10 [facility] Comment on above: Order Comment: CLEAN CATCH Performed By: #### M 100.678, M100.2200, L400.0001 ####[facility] [address] [place], [address] BILIRUBIN URINE Negative Normal Negative [facility] Comment on above: Order Comment: CLEAN CATCH Performed By: #### M 100.678, M100.2200, L400.0001 ####[facility] [address] [place], [address] Clarity (U) Clear Normal Clear [facility] Comment on above: Order Comment: CLEAN CATCH Performed By: #### M 100.678, M100.2200, L400.0001 ####[facility] [address] [place], [address] Color (U) Straw Normal Yellow [facility] Comment on above: Order Comment: CLEAN CATCH Performed By: #### M 100.678, M100.2200, L400.0001 ####[facility] [address] [place], [address] GLUCOSE, UR 50 mg/dl Abnormal Normal [facility] Comment on above: Order Comment: CLEAN CATCH Performed By: #### M 100.678, M100.2200, L400.0001 ####[facility] [address] [place], [address] KETONE UR Negative Normal Negative [facility] Comment on above: Order Comment: CLEAN CATCH Performed By: #### M 100.678, M100.2200, L400.0001 ####[facility] [address] [place], [address] LEUK ESTERASE Negative Normal Negative [facility] Comment on above: Order Comment: CLEAN CATCH Performed By: #### M 100.678, M100.2200, L400.0001 ####[facility] [address] [place], [address] Nitrite Ql (U) Negative Normal Negative [facility] Comment on above: Order Comment: CLEAN CATCH Performed By: #### M 100.678, M100.2200, L400.0001 ####[facility] [address] [place], [address] OCCULT BLOOD-UR Negative Normal Negative [facility] Comment on above: Order Comment: CLEAN CATCH Performed By: #### M 100.678, M100.2200, L400.0001 ####[facility] [address] [place], [address] pH UR 6.0 Normal 5.0 - 8.0 [facility] Comment on above: Order Comment: CLEAN CATCH Performed By: #### M 100.678, M100.2200, L400.0001 ####[facility] [address] [place], [address] PROT DIPSTX Negative Normal Negative [facility] Comment on above: Order Comment: CLEAN CATCH Performed By: #### M 100.678, M100.2200, L400.0001 ####[facility] [address] [place], [address] SP.GR. DIPSTX 1.010 Normal 1.002-1.03 0 [facility] Comment on above: Order Comment: CLEAN CATCH Performed By: #### M 100.678, M100.2200, L400.0001 ####[facility] [address] [place], [address] UROBILI Normal Normal Normal [facility] Comment on above: Order Comment: CLEAN CATCH Performed By: #### M 100.678, M100.2200, L400.0001 ####[facility] [address] [place], [address] 12 Lead EKGon 08-03-2024 12 Lead EKG Normal [facility] Pulmonary Visit Reporton Pulmonary Visit Report Normal [facility] Glucose Test strip manual (B ld) [Mass/Vol]on 07-22-2024 Glucose [Mass/Vol] 178 mg/dL High 74-99 [facility] Comment on above: Performed By: #### 2 341-6 #### ROSE Hector ([id number]) [facility] ([facility]) [address] [place] [address] Influenza virus A and B and SARS-CoV-2 (COVID-19) identified KELSI+probe Nom (Resp)on 07-22-2024 FLUAV RNA KELSI+probe Ql (Resp) Not detected Normal Not Detected [facility] Comment on above: Order Comment: This assay has received FDA Emergency Use Authorization (EUA) and is only authorized for the duration of time that circumstances exist to justify the authorization of the emergency use of in vitro diagnostic tests for the detection of SARS-CoV-2 virus and/or diagnosis of COVID-19 infection under section 564(b)(1) of the Act, 21 U.S.C. 360bbb-3(b)(1). Testing for SARS-CoV-2 is only recommended for patients who meet current clinical and/or epidemiological criteria as defined by federal, state, or local public health directives. This assay is an in vitro diagnostic nucleic acid amplification test for the qualitative detection of SARS-CoV-2, Influenza A, and Influenza B from nasopharyngeal specimens and has been validated for use at [facility]. Negative results do not preclude COVID-19 infections or Influenza A/B infections, and should not be used as the sole basis for diagnosis, treatment, or other management decisions. If Influenza A/B and RSV PCR results are negative, testing for Parainfluenza virus, Adenovirus and Metapneumovirus is routinely performed for [facility] pediatric oncology and intensive care inpatients, and is available on other patients by placing an add-on request. Performed By: #### 9 5423-0 #### ROSE Hector ([address]) [facility] ([facility]) [address] [place] [address] FLUBV RNA KELSI+probe Ql (Resp) Not detected Normal Not Detected [facility] Comment on above: Order Comment: This assay has received FDA Emergency Use Authorization (EUA) and is only authorized for the duration of time that circumstances exist to justify the authorization of the emergency use of in vitro diagnostic tests for the detection of SARS-CoV-2 virus and/or diagnosis of COVID-19 infection under section 564(b)(1) of the Act, 21 U.S.C. 360bbb-3(b)(1). Testing for SARS-CoV-2 is only recommended for patients who meet current clinical and/or epidemiological criteria as defined by federal, state, or local public health directives. This assay is an in vitro diagnostic nucleic acid amplification test for the qualitative detection of SARS-CoV-2, Influenza A, and Influenza B from nasopharyngeal specimens and has been validated for use at [facility]. Negative results do not preclude COVID-19 infections or Influenza A/B infections, and should not be used as the sole basis for diagnosis, treatment, or other management decisions. If Influenza A/B and RSV PCR results are negative, testing for Parainfluenza virus, Adenovirus and Metapneumovirus is routinely performed for [facility] pediatric oncology and intensive care inpatients, and is available on other patients by placing an add-on request. Performed By: #### 9 5423-0 #### ROSE Hector (58114) [facility] ([facility]) [address] [place] [address] SARS-CoV-2 (COVID-19) RNA KELSI+probe Ql (Resp) Not detected Normal Not Detected [facility] Comment on above: Order Comment: This assay has received FDA Emergency Use Authorization (EUA) and is only authorized for the duration of time that circumstances exist to justify the authorization of the emergency use of in vitro diagnostic tests for the detection of SARS-CoV-2 virus and/or diagnosis of COVID-19 infection under section 564(b)(1) of the Act, 21 U.S.C. 360bbb-3(b)(1). Testing for SARS-CoV-2 is only recommended for patients who meet current clinical and/or epidemiological criteria as defined by federal, state, or local public health directives. This assay is an in vitro diagnostic nucleic acid amplification test for the qualitative detection of SARS-CoV-2, Influenza A, and Influenza B from nasopharyngeal specimens and has been validated for use at [facility]. Negative results do not preclude COVID-19 infections or Influenza A/B infections, and should not be used as the sole basis for diagnosis, treatment, or other management decisions. If Influenza A/B and RSV PCR results are negative, testing for Parainfluenza virus, Adenovirus and Metapneumovirus is routinely performed for [facility] pediatric oncology and intensive care inpatients, and is available on other patients by placing an add-on request. Performed By: #### 9 5423-0 #### ROSE Hector ([id number]) [facility] ([facility]) [address] [place] [address] XR CHEST 2 VIEWSon 4 XR CHEST 2 VIEWS Interpreted By: Nhi Bernard, STUDY: XR CHEST 2 VIEWS; 07/22/2024 3:56 pm INDICATION: Signs/Symptoms:cough. COMPARISON: None. ACCESSION NUMBER(S): [id number] ORDERING CLINICIAN: ROBERT SIMMONS FINDINGS: CARDIOMEDIASTINAL SILHOUETTE: Cardiomediastinal silhouette is normal in size and configuration. LUNGS: There is a subtle left lower lobe pneumonia. There is no pleural fluid. The right lung is clear. ABDOMEN: No remarkable upper abdominal findings. BONES: No acute osseous changes. Status post right reverse total shoulder arthroplasty. IMPRESSION: Mild left lower lobe pneumonia. MACRO: None Signed by: Nhi Draper 07/22/2024 4:29 PM Dictation workstation: [id number] [facility] Respiratory Cultureon 2023 RESPC Normal [facility] Comment on above: Performed By: #### M 100.1999, M100.2400 ####[facility] [address] [place], [address] Gram Stainon 07-15-2024 GS Acceptable Specimen? Yes (<25 Epithelial cells per/lpf) Gram Stain 3+ Gram negative rods 1+ Gram positive cocci 1+ Gram positive rods 1+ White Blood Cells Rare Epithelial cells Normal [facility] Comment on above: Performed By: #### M 100.1999, M100.2400 ####[facility] [address] [place], [address] Pulmonary Visit Reporton Pulmonary Visit Report Normal [facility] CBC W/Diff, Automatedon 11-0 PATH REV Reviewed Normal [facility] Comment on above: Result Comment: Neut rophilic leukocytosis.Normocytic anemia.Clinical correlation necessary.Angel Donaldson M.D. 05/31/24 AMENDED REPORT 05/31/24 1424 PATH REV previously reported as: November brielle Performed By: #### L 500.4050, L100.0100, L501.2450 ####[facility] [address] [place], [address] Abdomen/Pelvis W IV Cont ONL Yon 05-29-2024 Abdomen/Pelvis W IV Cont ONLY Normal [facility] Comprehensive Metabolic Prof ilon 05-29-2024 Albumin [Mass/Vol] 2.9 g/dL Low 3.2-5.0 [facility] Comment on above: Performed By: #### L 500.4050, L100.0100, L501.2450 ####[facility] [address] [place], [address] Albumin/Globulin [Mass ratio] 0.8 {ratio} Low 0.9-2.4 [facility] Comment on above: Performed By: #### L 500.4050, L100.0100, L501.2450 ####[facility] [address] [place], [address] ALK P 68 U/L Normal 45-117 [facility] Comment on above: Performed By: #### L 500.4050, L100.0100, L501.2450 ####[facility] [address] [place], [address] ALT [Catalytic activity/Vol] 21 U/L Normal 13-56 [facility] Comment on above: Performed By: #### L 500.4050, L100.0100, L501.2450 ####[facility] [address] [place], [address] AST [Catalytic activity/Vol] 19 U/L Normal 15-37 [facility] Comment on above: Performed By: #### L 500.4050, L100.0100, L501.2450 ####[facility] [address] [place], [address] Bilirubin [Mass/Vol] 0.20 mg/dL Normal 0.20-1.00 [facility] Comment on above: Result Comment: For patients on eltrombopag therapy, use of Dimension Leland TBIL is not recommended. Performed By: #### L 500.4050, L100.0100, L501.2450 ####[facility] [address] [place], [address] BUN/CRE 36.4 RATIO High 10-20 [facility] Comment on above: Performed By: #### L 500.4050, L100.0100, L501.2450 ####[facility] [address] [place], [address] CA,Total 8.1 mg/dL Low 8.5-10.1 [facility] Comment on above: Performed By: #### L 500.4050, L100.0100, L501.2450 ####[facility] [address] [place], [address] Chloride [Moles/Vol] 111 mmol/L High 98-107 [facility] Comment on above: Performed By: #### L 500.4050, L100.0100, L501.2450 ####[facility] [address] [place], [address] CO2 [Moles/Vol] 22.0 mmol/L Normal 21.0-32.0 [facility] Comment on above: Performed By: #### L 500.4050, L100.0100, L501.2450 ####[facility] [address] [place], [address] Creatinine [Mass/Vol] 1.43 mg/dL High 0.55-1.02 [facility] Comment on above: Result Comment: The validity of the calculated GFR GFRAA in patients over70 years has not been determined. Clinical correlation isessential. Performed By: #### L 500.4050, L100.0100, L501.2450 ####[facility] [address] [place], [address] ECRCL 24.70 ml/min Normal [facility] Comment on above: Performed By: #### L 500.4050, L100.0100, L501.2450 ####[facility] [address] [place], [address] EST GFR - AA 45 mL/min Low >60 [facility] Comment on above: Result Comment: Afri can Japanese GFR Calc Performed By: #### L 500.4050, L100.0100, L501.2450 ####[facility] [address] [place], [address] GAP 7 Normal 5-15 [facility] Comment on above: Performed By: #### L 500.4050, L100.0100, L501.2450 ####[facility] [address] [place], [address] GFR/1.73 sq M.predicted among non-blacks MDRD (S/P/Bld) [Vol rate/Area] 37 mL/min/{1.73_m2} Low >60 [facility] Comment on above: Result Comment: Non- GFR Calc Performed By: #### L 500.4050, L100.0100, L501.2450 ####[facility] [address] [place], [address] Globulin (S) [Mass/Vol] 3.5 g/dL Normal 2.2-4.2 [facility] Comment on above: Performed By: #### L 500.4050, L100.0100, L501.2450 ####[facility] [address] [place], [address] Glucose [Mass/Vol] 162 mg/dL High 74-106 [facility] Comment on above: Result Comment: Fast ing Glucose result greater than or equal to 126 mg/dLsuggests DIABETES MELLITUS per A.D.A. criteria. Performed By: #### L 500.4050, L100.0100, L501.2450 ####[facility] [address] [place], [address] Potassium [Moles/Vol] 4.8 mmol/L Normal 3.5-5.1 [facility] Comment on above: Performed By: #### L 500.4050, L100.0100, L501.2450 ####[facility] [address] [place], [address] Sodium [Moles/Vol] 139 mmol/L Normal 136-145 [facility] Comment on above: Performed By: #### L 500.4050, L100.0100, L501.2450 ####[facility] [address] [place], [address] T PROT 6.4 g/dL Normal 6.4-8.2 [facility] Comment on above: Performed By: #### L 500.4050, L100.0100, L501.2450 ####[facility] [address] [place], [address] Urea nitrogen [Mass/Vol] 52 mg/dL High 7-18 [facility] Comment on above: Performed By: #### L 500.4050, L100.0100, L501.2450 ####[facility] [address] [place], [address] Emergency Department Summary on 05-29-2024 Emergency Department Summary Normal [facility] Lipaseon 05-29-2024 Lipase [Catalytic activity/Vol] 51 U/L Normal 13-75 [facility] Comment on above: Result Comment: Roberta hart note:LIPASE revised reference range effective 22.New Lipase methodology. Expected to produce lower valuesthan the previous assay method.NEW Reference Range: 13 - 75 U/L Performed By: #### L 500.4050, L100.0100, L501.2450 ####[facility] [address] [place], [address] Urinalysis, Completeon 05-29 BACTERIA RARE Normal None Seen [facility] Comment on above: Order Comment: CLEAN CATCH Performed By: #### L 400.0001 ####[facility] [address] [place], [address] WBC 0-5 SEEN Normal 0-5 [facility] Comment on above: Order Comment: CLEAN CATCH Performed By: #### L 400.0001 ####[facility] [address] [place], [address] EPI,SQUAMOUS 0 SEEN Normal 5-10 [facility] Comment on above: Order Comment: CLEAN CATCH Performed By: #### L 400.0001 ####[facility] [address] [place], [address] Mucus Ql (Urine sed) 0 SEEN Normal [facility] Comment on above: Order Comment: CLEAN CATCH Performed By: #### L 400.0001 ####[facility] [address] [place], [address] RBC 0 SEEN Normal 0-5 [facility] Comment on above: Order Comment: CLEAN CATCH Performed By: #### L 400.0001 ####[facility] [address] [place], [address] [id number] 05-28-2024 [id number] HNO ID: [id number] Author: GREGORIA JONES RN Service: ? Author Type: Registered Nurse Type: [id number] Filed: 05/28/2024 15:45 Note Text: LAST DOSE OF NORCO TAKEN AT 1:23 PM Normal [facility] Basic metabolic 2000 panelon 05-28-2024 Anion gap [Moles/Vol] 7 mmol/L Normal 5-16 [facility] Comment on above: Order Comment: Speci men Type: BLOOD SPECIMEN Ordering Facility: [facility] Address: [address] [place] [address] Performed By: #### 2 4321-2 #### [facility] CLIA [id number] [facility] [place] [address] [place] Calcium [Mass/Vol] 10.2 mg/dL Normal 8.5-10.5 [facility] Comment on above: Order Comment: Speci men Type: BLOOD SPECIMEN Ordering Facility: [facility] Address: [address] [place] [address] Performed By: #### 2 4321-2 #### [facility] LAB[facility]ATORY CLIA [id number] [address] [place], [place] [address] [place] Chloride [Moles/Vol] 107 mmol/L Normal 98-107 [facility] Comment on above: Order Comment: Speci men Type: BLOOD SPECIMEN Ordering Facility: [facility] Address: [address] [place] [address] Performed By: #### 2 4321-2 #### [facility] CLIA [id number] [address] [place] [address] [place] CO2 [Moles/Vol] 25 mmol/L Normal 21-32 [facility] Comment on above: Order Comment: Speci men Type: BLOOD SPECIMEN Ordering Facility: [facility] Address: [address] [place] [address] Performed By: #### 2 4321-2 #### [facility] CLIA [id number] [address] [place] [address] [place] Creatinine [Mass/Vol] 1.27 mg/dL High 0.51-0.95 [facility] Comment on above: Order Comment: Speci men Type: BLOOD SPECIMEN Ordering Facility: [facility] Address: [address] [place] [address] Result Comment: Dolores ents receiving either N-Acetylcysteine (NAC) or Metamizole prior to venipuncture, may have falsely depressed results. Performed By: #### 2 4321-2 #### [facility] CLIA [id number] [address] [place] [address] [place] Creatinine and Glomerular filtration rate.predicted panel (S/P/Bld) 43 mL/min/1.73m??? Low >=60 [facility] Comment on above: Order Comment: Speci men Type: BLOOD SPECIMEN Ordering Facility: [facility] Address: [address] [place] [address] Result Comment: Lin mated Glomerular Filtration Rate (eGFR) is calculated using the 2020 CKD-EPI creatinine equation. This equation utilizes serum creatinine, sex, and age as parameters. The creatinine assay has traceable calibration to isotope dilution-mass spectrometry. Refer to KDIGO guidelines for clinical interpretation. In patients with unstable renal function, e.g. those with acute kidney injury, the eGFR may not accurately reflect actual GFR. Performed By: #### 2 4321-2 #### [facility] CLIA [id number] [address] [place] [address] [place] Glucose [Mass/Vol] 131 mg/dL High 70-100 [facility] Comment on above: Order Comment: Marciano men Type: BLOOD SPECIMEN Ordering Facility: [facility] Address: [address] [place] [address] Result Comment: The [place] Diabetes Association (ADA) provides guidance for cutoff values for fasting glucose and random glucose. The ADA defines fasting as no caloric intake for at least 8 hours. Fasting plasma glucose results between 100 to 125 mg/dL indicate increased risk for diabetes (prediabetes). Fasting plasma glucose results greater than or equal to 126 mg/dL meet the criteria for diagnosis of diabetes. In the absence of unequivocal hyperglycemia, results should be confirmed by repeat testing. In a patient with classic symptoms of hyperglycemia or hyperglycemic crisis, random plasma glucose results greater than or equal to 200 mg/dL meet the criteria for diagnosis of diabetes. Reference: Standards of Medical Care in Diabetes 2016, [place] Diabetes Association. Diabetes Care. 2016.39(Suppl 1). Results may be falsely elevated after the administration of Sulfapyridine. Results may be falsely depressed after the administration of Sulfasalazine. Performed By: #### 2 4321-2 #### [facility] CLIA [id number] [address] [place] [address] [place] Potassium [Moles/Vol] 4.8 mmol/L Normal 3.5-5.1 [facility] Comment on above: Order Comment: Marciano men Type: BLOOD SPECIMEN Ordering Facility: [facility] Address: [address] [place] [address] Performed By: #### 2 4321-2 #### [facility] CLIA [id number] [address] [place] [address] [place] Sodium [Moles/Vol] 139 mmol/L Normal 136-145 [facility] Comment on above: Order Comment: Speci men Type: BLOOD SPECIMEN Ordering Facility: [facility] Address: [address] [place] [address] Performed By: #### 2 4321-2 #### [facility] CLIA [id number] [address] [place] [address] [place] Urea nitrogen [Mass/Vol] 56 mg/dL High 7- [facility] Comment on above: Order Comment: Speci men Type: BLOOD SPECIMEN Ordering Facility: [facility] Address: [address] [place] [address] Performed By: #### 2 4321-2 #### [facility] CLIA [id number] [address] [place] [address] [place] CBC W Auto Differential pane l (Bld)on 05-28-2024 Basophils (Bld) [#/Vol] 0.08 10*3/uL Normal <0.11 [facility] Comment on above: Order Comment: Speci men Type: BLOOD SPECIMEN Ordering Facility: [facility] Address: [address] [place] [address] Performed By: #### 5 7021-8 #### [facility] CLIA [id number] [address] [place] [address] [place] Basophils/100 WBC (Bld) 0.8 % Normal [facility] Comment on above: Order Comment: Speci men Type: BLOOD SPECIMEN Ordering Facility: [facility] Address: [address] [place] [address] Performed By: #### 5 7021-8 #### [facility] CLIA [id number] [address] [place] [address] [place] Differential cell count method Nom (Bld) Auto Normal [facility] Comment on above: Order Comment: Speci men Type: BLOOD SPECIMEN Ordering Facility: [facility] Address: [address] [place] [address] Performed By: #### 5 7021-8 #### [facility] CLIA [id number] [address] [place] [address] [place] Eosinophils (Bld) [#/Vol] 0.19 10*3/uL Normal <0.46 [facility] Comment on above: Order Comment: Speci men Type: BLOOD SPECIMEN Ordering Facility: [facility] Address: [address] [place] [address] Performed By: #### 5 7021-8 #### [facility] CLIA [id number] [address] [place] [address] [place] Eosinophils/100 WBC (Bld) 1.9 % Normal [facility] Comment on above: Order Comment: Speci men Type: BLOOD SPECIMEN Ordering Facility: [facility] Address: [address] [place] [address] Performed By: #### 5 7021-8 #### [facility] CLIA [id number] [address] [place] [address] [place] Erythrocyte distribution width (RBC) [Ratio] 13.9 % Normal 11.5-15.0 [facility] Comment on above: Order Comment: Speci men Type: BLOOD SPECIMEN Ordering Facility: [facility] Address: [address] [place] [address] Performed By: #### 5 7021-8 #### [facility] CLIA [id number] [address] [place] [address] [place] Hematocrit (Bld) [Volume fraction] 34.7 % Low 36.0-46.0 [facility] Comment on above: Order Comment: Speci men Type: BLOOD SPECIMEN Ordering Facility: [facility] Address: [address] [place] [address] Performed By: #### 5 7021-8 #### [facility] CLIA [id number] [address] [place] [address] [place] Hemoglobin (Bld) [Mass/Vol] 10.7 g/dL Low 11.5-15.5 [facility] Comment on above: Order Comment: Speci men Type: BLOOD SPECIMEN Ordering Facility: [facility] Address: [facility] [place] [address] Performed By: #### 5 7021-8 #### [facility] CLIA [id number] [address] [place] [address] [place] Immature granulocytes (Bld) [#/Vol] 0.12 10*3/uL High <0.10 [facility] Comment on above: Order Comment: Speci men Type: BLOOD SPECIMEN Ordering Facility: [facility] Address: [address] [place] [address] Performed By: #### 5 7021-8 #### [facility] CLIA [id number] [address] [place] [address] [place] Immature granulocytes/100 WBC (Bld) 1.2 % Normal [facility] Comment on above: Order Comment: Speci men Type: BLOOD SPECIMEN Ordering Facility: [facility] Address: [address] [place] [address] Performed By: #### 5 7021-8 #### [facility] CLIA [id number] [address] [place] [address] [place] Lymphocytes (Bld) [#/Vol] 1.95 10*3/uL Normal 1.00-4.00 [facility] Comment on above: Order Comment: Speci men Type: BLOOD SPECIMEN Ordering Facility: [facility] Address: [address] [place] [address] Performed By: #### 5 7021-8 #### [facility] CLIA [id number] [address] [place] [address] [place] Lymphocytes/100 WBC (Bld) 19.1 % Normal [facility] Comment on above: Order Comment: Speci men Type: BLOOD SPECIMEN Ordering Facility: [facility] Address: [address] [place] [address] Performed By: #### 5 7021-8 #### [facility] CLIA [id number] [address] [place] [address] [place] MCH (RBC) [Entitic mass] 28.5 pg Normal 26.0-34.0 [facility] Comment on above: Order Comment: Speci men Type: BLOOD SPECIMEN Ordering Facility: [facility] Address: [address] [place] [address] Performed By: #### 5 7021-8 #### [facility] CLIA [id number] [address] [place] [address] [place] MCHC (RBC) [Mass/Vol] 30.8 g/dL Normal 30.5-36.0 [facility] Comment on above: Order Comment: Speci men Type: BLOOD SPECIMEN Ordering Facility: [facility] Address: [address] [place] [address] Performed By: #### 5 7021-8 #### [facility] CLIA [id number] [address] [place] [address] [place] MCV (RBC) [Entitic vol] 92.5 fL Normal 80.0-100.0 [facility] Comment on above: Order Comment: Speci men Type: BLOOD SPECIMEN Ordering Facility: [facility] Address: [address] [place] [address] Performed By: #### 5 7021-8 #### [facility] CLIA [id number] [address] [place] [address] [place] Monocytes (Bld) [#/Vol] 1.08 10*3/uL High <0.87 [facility] Comment on above: Order Comment: Speci men Type: BLOOD SPECIMEN Ordering Facility: [facility] Address: [address] [place] [address] Performed By: #### 5 7021-8 #### [facility] CLIA [id number] [address] [place] [address] Monocytes/100 WBC (Bld) 10.6 % Normal [facility] Comment on above: Order Comment: Speci men Type: BLOOD SPECIMEN Ordering Facility: [facility] Address: [address] [place] [address] Performed By: #### 5 7021-8 #### [facility] CLIA [id number] [address] [place] [address] [place] Neutrophils (Bld) [#/Vol] 6.81 10*3/uL Normal 1.45-7.50 [facility] Comment on above: Order Comment: Speci men Type: BLOOD SPECIMEN Ordering Facility: [facility] Address: [address] [place] [address] Performed By: #### 5 7021-8 #### [facility] CLIA [id number] [address] [place] [address] [place] Neutrophils/100 WBC (Bld) 66.4 % Normal [facility] Comment on above: Order Comment: Speci men Type: BLOOD SPECIMEN Ordering Facility: [facility] Address: [address] [place] [address] Performed By: #### 5 7021-8 #### [facility] CLIA [id number] [address] [place] [address] [place] Nucleated RBC (Bld) [#/Vol] 10*3/uL Normal <0.01 [facility] Comment on above: Order Comment: Speci men Type: BLOOD SPECIMEN Ordering Facility: [facility] Address: [address] [place] [address] Performed By: #### 5 7021-8 #### [facility] CLIA [id number] [address] [place] [address] [place] Nucleated RBC/100 WBC (Bld) [Ratio] 0.0 /100 WBC Normal [facility] Comment on above: Order Comment: Speci men Type: BLOOD SPECIMEN Ordering Facility: [facility] Address: [address] [place] [address] Performed By: #### 5 7021-8 #### [facility] CLIA [id number] [address] [place], [place] [address] [place] Platelet mean volume (Bld) [Entitic vol] 9.5 fL Normal 9.0-12.7 [facility] Comment on above: Order Comment: Speci men Type: BLOOD SPECIMEN Ordering Facility: [facility] Address: [address] [place] [id number] Performed By: #### 5 7021-8 #### [facility] CLIA [id number] [address] [place], [place] [address] [facility] Platelets (Bld) [#/Vol] 395 10*3/uL Normal 150-400 [facility] Comment on above: Order Comment: Speci men Type: BLOOD SPECIMEN Ordering Facility: [facility] Address: [address] [place] [address] Performed By: #### 5 7021-8 #### [facility] CLIA [id number] [address] [place] [address] OF [facility] RBC (Bld) [#/Vol] 3.75 10*6/uL Low 3.90-5.20 [facility] Comment on above: Order Comment: Speci men Type: BLOOD SPECIMEN Ordering Facility: [facility] Address: [address] [place], [place] [address] Performed By: #### 5 7021-8 #### [facility] CLIA [id number] [address] [place] [address] OF [facility] WBC (Bld) [#/Vol] 10.23 10*3/uL Normal 3.70-11.00 [facility] Comment on above: Order Comment: Speci men Type: BLOOD SPECIMEN Ordering Facility: [facility] Address: [address] [place], [place] [address] Performed By: #### 5 7021-8 #### [facility] CLIA [id number] [address] [place], [place] [address] [facility] ECG COMPLETEon 05-28-2024 ECG COMPLETE Ventricular Rate : 8 7 BPM Atrial Rate : 87 BPM P-R Interval : 212 ms QRS Duration : 72 ms Q-T Interval : 344 ms QTC Calculation(Bazett) : 413 ms Calculated P Thornton : 77 degrees Calculated R Thornton : 20 degrees Calculated T Thornton : 67 degrees Sinus rhythm 1st degree AV block Low voltage QRS Borderline ECG No previous ECGs available Confirmed by RHYS PEREIRA MD ([id number]) on 05/28/2024 7:54:29 PM NAME : ANSON CAPPS PID : [id number] : 1940 Gender : Female Race : ORD : [id number] Procedure Date : May 28 2024 07:07:59 Edit Date : May 28 2024 19:54:31 Diagnosis: Sinus rhythm 1st degree AV block Low voltage QRS Borderline ECG No previous ECGs available Confirmed by RHYS PEREIRA MD ([id number]) on 05/28/2024 7:54:29 PM Test Reason : stat Location : 23 : SURG MRORPL Overread By : RHYS PEREIRA MD Edited By : RHYS PEREIRA MD Referred By : , Acquired by : SAMRA MALONE [facility] HISTORY PHYSICALon HISTORY PHYSICAL HNO ID: [id number] Author: PEYMAN MENA MD Service: Vascular Surgery Author Type: Physician Type: H&P Filed: 05/28/2024 10:16 Note Text: See HANDP, no change Plan left iliac and leg angiogram Peyman Mena MD [facility] NURSING PROGon 05-28-2024 NURSING PROG HNO ID: [id number] Author: GREGORIA JONES RN Service: Nursing Author Type: Registered Nurse Type: Nursing Progress Note Filed: 05/28/2024 16:26 Note Text: Ambulated to bathroom then back to room, no further bleeding or hematoma noted, will dc to home at this time [facility] NURSING PROG HNO ID: [id number] Author: GREGORIA JONES RN Service: Nursing Author Type: Registered Nurse Type: Nursing Progress Note Filed: 05/28/2024 15:43 Note Text: Left thigh and left knee hematoma resolved at this time, pain controlled with oral pain meds, armboard in place to left radial site with dressing clean dry and intact [facility] NURSING PROG HNO ID: [id number] Author: YAMILKA SHETH, OTONIEL Service: Nursing Author Type: Registered Nurse Type: Nursing Progress Note Filed: 05/28/2024 12:43 Note Text: Updates given to Dr. Mena over phone. Left leg still remains firm but the hematoma has not gotten any bigger. IV Protamine has been given and BP improving with the SBP in the low 100's. [facility] NURSING PROG HNO ID: [id number] Author: YAMILKA SHETH RN Service: Nursing Author Type: Registered Nurse Type: Nursing Progress Note Filed: 05/28/2024 12:41 Note Text: Pt came into the recovery room hypotensive with BP 86/42. Pt awake and alert and is asymptomatic. Pt complaining of left leg pain. Left upper leg firm with a hematoma noted above the left knee. Dr. Mena notified immediately and he came to bedside to evaluate. He said to place ice packs on left leg and for 20 mg of IV Protamine and for a 250 cc IV fluid bolus to be given. Hematoma marked with pen to monitor for any changes. All pulses audible with doppler. Left arm dressing dry and intact with no hematoma noted. [facility] OPERATIVE NOon 05-28-2024 OPERATIVE NO HNO ID: [id number] Author: PEYMAN MENA MD Service: Vascular Surgery Author Type: Physician Type: Operative Report Filed: 06/01/2024 10:39 Note Text: OPERATIVE/PROCEDURE REPORT LOG ID: [id number] SURGERY/PROCEDURE DATE: 05/28/2024 INCISION/PROCEDURE START TIME: 10:35 AM INCISION CLOSE/PROCEDURE END TIME: 11:09 AM SURGEON(S)/PROCEDURALIST(S ) AND GRADES 9 THRU 12 VISITING TEACHER(S): Surgeons and Role: * Peyman Mena MD - Primary Classified Advertising Clerk: Kecia Barker SA SURGERY/PROCEDURE(S): 1. Ultrasound access retrograde left radial artery. 2. Aortogram with left iliofemoral angiogram. 3. Balloon angioplasty of the left iliac through the common femoral to the profunda with a 5 mm Colon. 4. Stent the left external iliac with a 7 x 60 Sylvia and post balloon from the common iliac into the common femoral artery with a 7 mm Colon. 4. Closure with radial band ANESTHESIA: Procedural Sedation SURGERY/PROCEDURE DETAILS: Patient brought to the operating room. Underwent appropriate timeout consent. Underwent sedation. Prepped and draped in a sterile fashion. We did ultrasound access retrograde left radial artery. Give 5000 units of heparin. Put in a 6 Polish sheath. Gave 150 mics of nitro. We got the wire catheter down the aorta to the distal aorta. Did an aortogram with left iliofemoral angiogram. This showed the left external iliac occlusion. Using a catheter and wire was able to get through this occlusion confirmed into the distal iliac artery. We brought in a longer 6 Polish sheath. We balloon from the iliac into the common femoral profunda with a 5 mm Colon. We then stented the left external neck artery with a 7 x 60 Sylvia and post balloon from the common iliac through the stent to the common femoral artery with a 7 x 150 Colon. Completion was much improved with good flow and extensive collaterals filling down the leg. We then removed out the sheath and deployed a radial band with good hemostasis. Patient was brought to recovery in stable condition. Sedation: This 83-year-old female underwent moderate sedation and by Dr. Peyman Mena. She is monitored by the IV sedation nurse. She is given fentanyl, Versed and heparin. She was monitored EKG blood pressure and pulse ox for over the 45 minutes of the procedure. See the EMR for the complete record. Fluoroscopy: Fluoroscopy: 8.6 minutes Dose: 1330 mGy Contrast dye: 45 cc PRE-OP/PRE-PROCEDURE DIAGNOSIS: Left leg PAD with limiting claudication same POST-OP/POST-PROCEDURE DIAGNOSIS: Same ESTIMATED BLOOD LOSS: Minimal SPECIMENS: None IMPLANTABLE DEVICES: Stent DRAINS: None COMPLICATIONS: None SIGNATURE: Peyman Mena MD PATIENT NAME: Anson Capps DATE: May 28, 2024 TIME: 11:42 AM Normal [facility] NURSING PROGon 05-27-2024 NURSING PROG HNO ID: [id number] Author: ALEE CARVALHO RN Service: Nursing Author Type: Registered Nurse Type: Nursing Progress Note Filed: 05/27/2024 14:38 Note Text: PRE-PROCEDURE INSTRUCTIONS TO PREPARE FOR YOUR PROCEDURE: Your arrival time for your procedure is 0600. Do NOT eat any solid foods after MIDNIGHT the night prior to your procedure - this includes gum or mints. You can drink clear liquids* up until 0400, which is 2 hours before your arrival time. *Clear liquids = water, carbohydrate drink (sports drink that is clear or yellow in color), Ensure Pre-Surgery (given by DEVONTE or your DrMamie), fruit juice without pulp (apple/cranberry), clear tea, black coffee (no cream). NO CARBONATED BEVERAGES AND NO ALCOHOL. Shower the morning of the procedure, put on clean clothes, and have clean sheets for your bed to help prevent infection after your procedure. Leave all valuables such as jewelry including rings, piercings, wallets, and purses at home. Wear comfortable, loose-fitting clothing. If you wear glasses or contacts, please bring a case. SPECIAL INSTRUCTIONS: If instructed, bring your first voided urine specimen with you. If you were provided skin preparation to use prior to your procedure, complete this as directed. If a bowel preparation has been ordered by your physician, it is very important to follow the bowel prep instructions or your procedure may need to be rescheduled. If you use crutches or a walker, bring them with you. If you have a home CPAP/BIPAP machine, bring it with you. If you were instructed to complete a fleets enema or bowel prep, complete as directed. Bring copy of Living Will/Power of Hot Worker. Do not smoke or chew. If you use tobacco, quit or at least cut down before surgery. Do not smoke or chew after midnight the day before your surgery. This effects bleeding, infection, healing, and so much more. Do not take any Diet or Herbal Supplements 2 weeks prior to your surgery date. Please notify your physician if there is any change in your physical condition such as a cold, cough, fever, sore throat, or skin irritation near the surgical site. Visitors under the age of 14 are restricted in the Surgery Center. UPON ARRIVAL: Access to [facility] is located on [address] Delivery Supervisor parking is available for your convenience from 5am-5pm- there is a $5.00 charge for this service. Take the elevators directly inside the entrance to the 1st Floor Surgery Lobby. Sign in at the podium located to the left when you get off the elevators. A payment may be expected at the time of service. One visitor may come back to the preoperative area with you. The preoperative staff will be reviewing your medical history, please let them know if you prefer not to have a visitor with you during this time. Once you are ready for your procedure, two visitors at a time are permitted in your preprocedure room. Normal [facility] Celiac Disease Profileon ENDOMYSIAL IGA Negative Normal Negative [facility] Comment on above: Order Comment: N Performed By: #### L 504.2610, L503.6150, L3100.3425, L503.6075, L100.9950, L100.0100, L503.6550, L3410.2400 ####[facility] [id number] [place], [place], [id number] tTG IGA <2 Normal 0-3 [facility] Comment on above: Order Comment: N Result Comment: Nega tive 0 - 3 Weak Positive 4 - 10 Positive >10 Tissue Transglutaminase (tTG) has been identified as the endomysial antigen. Studies have demonstr- ated that endomysial IgA antibodies have over 99% specificity for gluten sensitive enteropathy. Performed By: #### L 504.2610, L503.6150, L3100.3425, L503.6075, L100.9950, L100.0100, L503.6550, L3410.2400 ####[facility] [id number] [place], [place], [id number] SHELLIE + Protein Elect, Serumon 05-20-2024 Albumin [Mass/Vol] 3.4 g/dL Normal 2.9-4.4 [facility] Comment on above: Order Comment: N Performed By: #### L 504.2610, L503.6150, L3100.3425, L503.6075, L100.9950, L100.0100, L503.6550, L3410.2400 ####[facility] [id number] [place], [place], [id number] Albumin/Globulin [Mass ratio] 1.2 {ratio} Normal 0.7-1.7 [facility] Comment on above: Order Comment: N Performed By: #### L 504.2610, L503.6150, L3100.3425, L503.6075, L100.9950, L100.0100, L503.6550, L3410.2400 ####[facility] [id number] [place], [address] QOGCX-0-NXLC 0.3 g/dL Normal 0.0-0.4 [facility] [place] Comment on above: Order Comment: N Performed By: #### L 504.2610, L503.6150, L3100.3425, L503.6075, L100.9950, L100.0100, L503.6550, L3410.2400 ####[facility] [place] [address] [place], [address] OMHGT-1-XYOC 0.9 g/dL Normal 0.4-1.0 [facility] [place] Comment on above: Order Comment: N Performed By: #### L 504.2610, L503.6150, L3100.3425, L503.6075, L100.9950, L100.0100, L503.6550, L3410.2400 ####[facility] [place] [address] [place], [address] BETA GLOBULIN 1.0 g/dL Normal 0.7-1.3 [facility] [place] Comment on above: Order Comment: N Performed By: #### L 504.2610, L503.6150, L3100.3425, L503.6075, L100.9950, L100.0100, L503.6550, L3410.2400 ####[facility] [place] [address] [place], [address] GAMMA GLOBULIN 0.8 g/dL Normal 0.4-1.8 [facility] [place] Comment on above: Order Comment: N Performed By: #### L 504.2610, L503.6150, L3100.3425, L503.6075, L100.9950, L100.0100, L503.6550, L3410.2400 ####[facility] [place] [address] [place], [address] Globulin (S) [Mass/Vol] 3.0 g/dL Normal 2.2-3.9 [facility] [place] Comment on above: Order Comment: N Performed By: #### L 504.2610, L503.6150, L3100.3425, L503.6075, L100.9950, L100.0100, L503.6550, L3410.2400 ####[facility] [place] [address] [place], [address] SHELLIE RESULT,S Comment: Normal . [facility] [place] Comment on above: Order Comment: N Result Comment: Pres ence of monoclonal protein is unclear at this time. Suggestrepeat in 3 to 6 months if clinically indicated. Performed By: #### L 504.2610, L503.6150, L3100.3425, L503.6075, L100.9950, L100.0100, L503.6550, L3410.2400 ####[facility] [place] [address] [place], [address] IMMUNOGLOB A QN 274 mg/dL Normal 64-422 [facility] [place] Comment on above: Order Comment: N Performed By: #### L 504.2610, L503.6150, L3100.3425, L503.6075, L100.9950, L100.0100, L503.6550, L3410.2400 ####[facility] [place] [address] [place], [address] IMMUNOGLOB G QN 742 mg/dL Normal 586-1602 [facility] [place] Comment on above: Order Comment: N Performed By: #### L 504.2610, L503.6150, L3100.3425, L503.6075, L100.9950, L100.0100, L503.6550, L3410.2400 ####[facility] [place] [address] [place], [address] IMMUNOGLOB M QN 74 mg/dL Normal 26-217 [facility] [place] Comment on above: Order Comment: N Performed By: #### L 504.2610, L503.6150, L3100.3425, L503.6075, L100.9950, L100.0100, L503.6550, L3410.2400 ####[facility] [place] [address] [place], [place], [id number] M-Davie Not Observed Normal Not Observed [facility] [place] Comment on above: Order Comment: N Performed By: #### L 504.2610, L503.6150, L3100.3425, L503.6075, L100.9950, L100.0100, L503.6550, L3410.2400 ####[facility] [place] [address] [place], [place], [id number] NOTE: Comment Normal . [facility] [place] Comment on above: Order Comment: N Result Comment: Prot ein electrophoresis scan will follow via computer,mail, or magazine journalist delivery.Performed at: [facility] [employer] [address] Director: Brian Teague PhD, Phone: [phone] Performed By: #### L 504.2610, L503.6150, L3100.3425, L503.6075, L100.9950, L100.0100, L503.6550, L3410.2400 ####[facility] [place] [address] [place], [place], [id number] Protein [Mass/Vol] 6.4 g/dL Normal 6.0-8.5 [facility] Comment on above: Order Comment: N Performed By: #### L 504.2610, L503.6150, L3100.3425, L503.6075, L100.9950, L100.0100, L503.6550, L3410.2400 ####[facility] [place] [address] [place], [place], [id number] CBC W/Diff, Automatedon 10-2 Absolute Lymph 2.02 X10 3/uL Normal 0.83-4.51 [facility] [place] Comment on above: Performed By: #### L 504.2610, L503.6150, L3100.3425, L503.6075, L100.9950, L100.0100, L503.6550, L3410.2400 ####[facility] [place] [address] [place], [address] Absolute Neut 3.2 X10 3/uL Normal 2.0-7.7 [facility] [place] Comment on above: Performed By: #### L 504.2610, L503.6150, L3100.3425, L503.6075, L100.9950, L100.0100, L503.6550, L3410.2400 ####[facility] [place] [address] [place], [address] Basophils/100 WBC (Bld) 1.2 % High 0-1 [facility] [place] Comment on above: Performed By: #### L 504.2610, L503.6150, L3100.3425, L503.6075, L100.9950, L100.0100, L503.6550, L3410.2400 ####[facility] [place] [address] [place], [address] Eosinophils/100 WBC (Bld) 1.5 % Normal 0-5 [facility] [place] Comment on above: Performed By: #### L 504.2610, L503.6150, L3100.3425, L503.6075, L100.9950, L100.0100, L503.6550, L3410.2400 ####[facility] [place] [address] [place], [address] Erythrocyte distribution width (RBC) [Ratio] 14.2 % Normal 11.6-14.6 [facility] [place] Comment on above: Performed By: #### L 504.2610, L503.6150, L3100.3425, L503.6075, L100.9950, L100.0100, L503.6550, L3410.2400 ####[facility] [place] [address] [place], [address] Hematocrit (Bld) [Volume fraction] 36.3 % Low 37-47 [facility] [place] Comment on above: Performed By: #### L 504.2610, L503.6150, L3100.3425, L503.6075, L100.9950, L100.0100, L503.6550, L3410.2400 ####[facility] [place] [address] [place], [address] Hemoglobin (Bld) [Mass/Vol] 11.2 g/dL Low 12.0-15.0 [facility] [place] Comment on above: Performed By: #### L 504.2610, L503.6150, L3100.3425, L503.6075, L100.9950, L100.0100, L503.6550, L3410.2400 ####[facility] [place] [address] [place], [address] IG% 0.500 Normal 0.0-0.9 [facility] [place] Comment on above: Result Comment: IG% - Immature Granulocytes (promyelocytes, myelocytes andmetamyelocytes) > 1% indicates that a LEFT SHIFT is Present. Performed By: #### L 504.2610, L503.6150, L3100.3425, L503.6075, L100.9950, L100.0100, L503.6550, L3410.2400 ####[facility] [place] [address] [place], [address] Lymphocytes/100 WBC (Bld) 33.6 % Normal 19-41 [facility] [place] Comment on above: Performed By: #### L 504.2610, L503.6150, L3100.3425, L503.6075, L100.9950, L100.0100, L503.6550, L3410.2400 ####[facility] [place] [address] [place], [address] MCH (RBC) [Entitic mass] 28.9 pg Normal 27.0-32.0 [facility] [place] Comment on above: Performed By: #### L 504.2610, L503.6150, L3100.3425, L503.6075, L100.9950, L100.0100, L503.6550, L3410.2400 ####[facility] [place] [address] [place], [address] MCHC (RBC) [Mass/Vol] 30.9 g/dL Low 32-36 [facility] Comment on above: Performed By: #### L 504.2610, L503.6150, L3100.3425, L503.6075, L100.9950, L100.0100, L503.6550, L3410.2400 ####[facility] [place] [address] [place], [address] MCV (RBC) [Entitic vol] 93.8 fL Normal 81-99 [facility] [place] Comment on above: Performed By: #### L 504.2610, L503.6150, L3100.3425, L503.6075, L100.9950, L100.0100, L503.6550, L3410.2400 ####[facility] [place] [address] [place], [address] Monocytes/100 WBC (Bld) 10.8 % High 0-10 [facility] [place] Comment on above: Performed By: #### L 504.2610, L503.6150, L3100.3425, L503.6075, L100.9950, L100.0100, L503.6550, L3410.2400 ####[facility] [place] [address] [place], [address] Neutrophils/100 WBC (Bld) 52.4 % Normal 47-70 [facility] [place] Comment on above: Performed By: #### L 504.2610, L503.6150, L3100.3425, L503.6075, L100.9950, L100.0100, L503.6550, L3410.2400 ####[facility] [place] [address] [place], [address] Nucleated RBC (Bld) [#/Vol] 0 10*3/uL Normal 0-5 [facility] [place] Comment on above: Performed By: #### L 504.2610, L503.6150, L3100.3425, L503.6075, L100.9950, L100.0100, L503.6550, L3410.2400 ####[facility] [place] [address] [place], [address] Platelet mean volume (Bld) [Entitic vol] 9.4 fL Normal 6.2-12.0 [facility] [place] Comment on above: Performed By: #### L 504.2610, L503.6150, L3100.3425, L503.6075, L100.9950, L100.0100, L503.6550, L3410.2400 ####[facility] [place] [address] [place], [address] Platelets (Bld) [#/Vol] 532 10*3/uL High 150-450 [facility] [place] Comment on above: Performed By: #### L 504.2610, L503.6150, L3100.3425, L503.6075, L100.9950, L100.0100, L503.6550, L3410.2400 ####[facility] [place] [address] [place], [address] RBC (Bld) [#/Vol] 3.87 10*6/uL Low 4.2-5.4 [facility] Comment on above: Performed By: #### L 504.2610, L503.6150, L3100.3425, L503.6075, L100.9950, L100.0100, L503.6550, L3410.2400 ####[facility] [place] [address] [place], [place], [id number] RDW SD 48.7 fl High 35.1-43.9 [facility] [place] Comment on above: Performed By: #### L 504.2610, L503.6150, L3100.3425, L503.6075, L100.9950, L100.0100, L503.6550, L3410.2400 ####[facility] [place] [address] [place], [address] WBC (Bld) [#/Vol] 6.0 10*3/uL Normal 4.4-11.0 [facility] Comment on above: Performed By: #### L 504.2610, L503.6150, L3100.3425, L503.6075, L100.9950, L100.0100, L503.6550, L3410.2400 ####[facility] [place] [address] [place], [place], [id number] Ferritinon 05-19-2024 Ferritin [Mass/Vol] 29 ng/mL Normal 8-252 [facility] Comment on above: Order Comment: 1 Performed By: #### L 504.2610, L503.6150, L3100.3425, L503.6075, L100.9950, L100.0100, L503.6550, L3410.2400 ####[facility] [place] [address] [place], [place], [address] Gastroenterology Visit Repor ton 05-19-2024 Gastroenterology Visit Report Normal [facility] [place] Ironon 05-19-2024 Iron [Mass/Vol] 61 ug/dL Normal 50-170 [facility] [place] Comment on above: Order Comment: 1 Performed By: #### L 504.2610, L503.6150, L3100.3425, L503.6075, L100.9950, L100.0100, L503.6550, L3410.2400 ####[facility] [place] [address] [place], [address] Iron Binding Capacity,Totalo n 05-19-2024 TIBC 274 ug/dL Normal 250-450 [facility] [place] Comment on above: Order Comment: 1 Performed By: #### L 504.2610, L503.6150, L3100.3425, L503.6075, L100.9950, L100.0100, L503.6550, L3410.2400 ####[facility] [place] [address] [place], [address] LDHon 05-19-2024 LDH 161 U/L Normal 84-246 [facility] [place] Comment on above: Order Comment: 1 Performed By: #### L 504.2610, L503.6150, L3100.3425, L503.6075, L100.9950, L100.0100, L503.6550, L3410.2400 ####[facility] [place] [address] [place], [address] Retic Panelon 05-19-2024 IM RET FRACTION 9.40 Normal 3.00-15.90 [facility] [place] Comment on above: Performed By: #### L 504.2610, L503.6150, L3100.3425, L503.6075, L100.9950, L100.0100, L503.6550, L3410.2400 ####[facility] [place] [address] [place], [address] RET-HE 29.2 pg Low 30-35 [facility] [place] Comment on above: Performed By: #### L 504.2610, L503.6150, L3100.3425, L503.6075, L100.9950, L100.0100, L503.6550, L3410.2400 ####[facility] [place] [address] [place], [address] Retic Count 1.27 Normal 0.5-1.5 [facility] [place] Comment on above: Performed By: #### L 504.2610, L503.6150, L3100.3425, L503.6075, L100.9950, L100.0100, L503.6550, L3410.2400 ####[facility] [place] [address] [place], [address] Basic Metabolic Profile (BMP )on 05-01-2024 BUN Normal 7-18 [facility] [place] Comment on above: Result Comment: Canc elled via OM: Order cancelled - Patient discharged Performed By: #### L 500.2500, L100.0100 ####[facility] [place] [address] [place], [address] BUN/CRE Normal 10-20 [facility] [place] Comment on above: Result Comment: Canc elled via OM: Order cancelled - Patient discharged Performed By: #### L 500.2500, L100.0100 ####[facility] [place] [address] [place], [address] CA,Total Normal 8.5-10.1 [facility] [place] Comment on above: Result Comment: Canc elled via OM: Order cancelled - Patient discharged Performed By: #### L 500.2500, L100.0100 ####[facility] [place] [address] [place], [address] CL Normal 98-107 [facility] [place] Comment on above: Result Comment: Canc elled via OM: Order cancelled - Patient discharged Performed By: #### L 500.2500, L100.0100 ####[facility] [place] [address] [place], [address] CO2 Normal 21.0-32.0 [facility] [place] Comment on above: Result Comment: Canc elled via OM: Order cancelled - Patient discharged Performed By: #### L 500.2500, L100.0100 ####[facility] [place] [address] [place], [address] CREAT,SERUM Normal 0.55-1.02 [facility] [place] Comment on above: Result Comment: Canc elled via OM: Order cancelled - Patient discharged Performed By: #### L 500.2500, L100.0100 ####[facility] [place] [address] [place], [address] EST GFR Normal >60 [facility] [place] Comment on above: Result Comment: Canc elled via OM: Order cancelled - Patient discharged Performed By: #### L 500.2500, L100.0100 ####[facility] [place] [address] [place], [address] EST GFR - AA Normal >60 [facility] [place] Comment on above: Result Comment: Canc elled via OM: Order cancelled - Patient discharged Performed By: #### L 500.2500, L100.0100 ####[facility] [place] [address] [place], [address] GAP Normal 5-15 [facility] [place] Comment on above: Result Comment: Canc elled via OM: Order cancelled - Patient discharged Performed By: #### L 500.2500, L100.0100 ####[facility] [place] [address] [place], [address] GLU Normal 74-106 [facility] [place] Comment on above: Result Comment: Canc elled via OM: Order cancelled - Patient discharged Performed By: #### L 500.2500, L100.0100 ####[facility] [place] [address] [place], [address] Potassium Normal 3.5-5.1 [facility] [place] Comment on above: Result Comment: Canc elled via OM: Order cancelled - Patient discharged Performed By: #### L 500.2500, L100.0100 ####[facility] [place] [address] [place], [address] Basic Metabolic Profile (BMP) Normal 136-145 [facility] [place] Comment on above: Result Comment: Canc elled via OM: Order cancelled - Patient discharged Performed By: #### L 500.2500, L100.0100 ####[facility] [place] [address] [place], [address] CBC W/Diff, Automatedon 10-0 -2023 Absolute Neut Normal 2.0-7.7 [facility] [place] Comment on above: Result Comment: Canc elled via OM: Order cancelled - Patient discharged Performed By: #### L 500.2500, L100.0100 ####[facility] [place] [address] [place], [address] HCT Normal 37-47 [facility] [place] Comment on above: Result Comment: Canc elled via OM: Order cancelled - Patient discharged Performed By: #### L 500.2500, L100.0100 ####[facility] [place] [address] [place], [address] HGB Normal 12.0-15.0 [facility] [place] Comment on above: Result Comment: Canc elled via OM: Order cancelled - Patient discharged Performed By: #### L 500.2500, L100.0100 ####[facility] [place] [address] [place], [address] MCH Normal 27.0-32.0 [facility] [place] Comment on above: Result Comment: Canc elled via OM: Order cancelled - Patient discharged Performed By: #### L 500.2500, L100.0100 ####[facility] [place] [address] [place], [address] MCHC Normal 32-36 [facility] [place] Comment on above: Result Comment: Canc elled via OM: Order cancelled - Patient discharged Performed By: #### L 500.2500, L100.0100 ####[facility] [place] [address] [place], [address] MCV Normal 81-99 [facility] [place] Comment on above: Result Comment: Canc elled via OM: Order cancelled - Patient discharged Performed By: #### L 500.2500, L100.0100 ####[facility] [place] [address] [place], [address] NEUT% Normal 47-70 [facility] [place] Comment on above: Result Comment: Canc elled via OM: Order cancelled - Patient discharged Performed By: #### L 500.2500, L100.0100 ####[facility] [place] [address] [place], [address] PLT Normal 150-450 [facility] [place] Comment on above: Result Comment: Canc elled via OM: Order cancelled - Patient discharged Performed By: #### L 500.2500, L100.0100 ####[facility] [place] [address] [place], [address] RBC Normal 4.2-5.4 [facility] [place] Comment on above: Result Comment: Canc elled via OM: Order cancelled - Patient discharged Performed By: #### L 500.2500, L100.0100 ####[facility] [place] [address] [place], [address] RDW CV Normal 11.6-14.6 [facility] [place] Comment on above: Result Comment: Canc elled via OM: Order cancelled - Patient discharged Performed By: #### L 500.2500, L100.0100 ####[facility] [place] [address] [place], [address] RDW SD Normal 35.1-43.9 [facility] [place] Comment on above: Result Comment: Canc elled via OM: Order cancelled - Patient discharged Performed By: #### L 500.2500, L100.0100 ####[facility] [place] [address] [place], [address] WBC Normal 4.4-11.0 [facility] [place] Comment on above: Result Comment: Canc elled via OM: Order cancelled - Patient discharged Performed By: #### L 500.2500, L100.0100 ####[facility] [place] [address] [place], [address] Basic Metabolic Profile (BMP )on 04-30-2024 BUN Normal 7-18 [facility] [place] Comment on above: Result Comment: Canc elled via OM: Order cancelled - Patient discharged Performed By: #### L 500.2500, L100.0100 ####[facility] [place] [address] [place], [address] BUN/CRE Normal 10-20 [facility] [place] Comment on above: Result Comment: Canc elled via OM: Order cancelled - Patient discharged Performed By: #### L 500.2500, L100.0100 ####[facility] [place] [address] [place], [address] CA,Total Normal 8.5-10.1 [facility] [place] Comment on above: Result Comment: Canc elled via OM: Order cancelled - Patient discharged Performed By: #### L 500.2500, L100.0100 ####[facility] [place] [address] [place], [address] CL Normal 98-107 [facility] [place] Comment on above: Result Comment: Canc elled via OM: Order cancelled - Patient discharged Performed By: #### L 500.2500, L100.0100 ####[facility] [place] [address] [place], [address] CO2 Normal 21.0-32.0 [facility] [place] Comment on above: Result Comment: Canc elled via OM: Order cancelled - Patient discharged Performed By: #### L 500.2500, L100.0100 ####[facility] [place] [address] [place], [address] CREAT,SERUM Normal 0.55-1.02 [facility] [place] Comment on above: Result Comment: Canc elled via OM: Order cancelled - Patient discharged Performed By: #### L 500.2500, L100.0100 ####[facility] [place] [address] [place], [address] EST GFR Normal >60 [facility] [place] Comment on above: Result Comment: Canc elled via OM: Order cancelled - Patient discharged Performed By: #### L 500.2500, L100.0100 ####[facility] [place] [address] [place], [address] EST GFR - AA Normal >60 [facility] [place] Comment on above: Result Comment: Canc elled via OM: Order cancelled - Patient discharged Performed By: #### L 500.2500, L100.0100 ####[facility] [place] [address] [place], [address] GAP Normal 5-15 [facility] [place] Comment on above: Result Comment: Canc elled via OM: Order cancelled - Patient discharged Performed By: #### L 500.2500, L100.0100 ####[facility] [place] [address] [place], [address] GLU Normal 74-106 [facility] [place] Comment on above: Result Comment: Canc elled via OM: Order cancelled - Patient discharged Performed By: #### L 500.2500, L100.0100 ####[facility] [place] [address] [place], [address] Potassium Normal 3.5-5.1 [facility] [place] Comment on above: Result Comment: Canc elled via OM: Order cancelled - Patient discharged Performed By: #### L 500.2500, L100.0100 ####[facility] [place] [address] [place], [address] Basic Metabolic Profile (BMP) Normal 136-145 [facility] [place] Comment on above: Result Comment: Canc elled via OM: Order cancelled - Patient discharged Performed By: #### L 500.2500, L100.0100 ####[facility] [place] [address] [place], [address] CBC W/Diff, Automatedon 10-0 -2023 Absolute Neut Normal 2.0-7.7 [facility] [place] Comment on above: Result Comment: Canc elled via OM: Order cancelled - Patient discharged Performed By: #### L 500.2500, L100.0100 ####[facility] [place] [address] [place], [address] HCT Normal 37-47 [facility] [place] Comment on above: Result Comment: Canc elled via OM: Order cancelled - Patient discharged Performed By: #### L 500.2500, L100.0100 ####[facility] [place] [address] [place], [address] HGB Normal 12.0-15.0 [facility] [place] Comment on above: Result Comment: Canc elled via OM: Order cancelled - Patient discharged Performed By: #### L 500.2500, L100.0100 ####[facility] [place] [address] [place], [address] MCH Normal 27.0-32.0 [facility] [place] Comment on above: Result Comment: Canc elled via OM: Order cancelled - Patient discharged Performed By: #### L 500.2500, L100.0100 ####[facility] [place] [address] [place], [address] MCHC Normal 32-36 [facility] [place] Comment on above: Result Comment: Canc elled via OM: Order cancelled - Patient discharged Performed By: #### L 500.2500, L100.0100 ####[facility] [address] [place], [address] MCV Normal 81-99 [facility] [place] Comment on above: Result Comment: Canc elled via OM: Order cancelled - Patient discharged Performed By: #### L 500.2500, L100.0100 ####[facility] [place] [address] [place], [address] NEUT% Normal 47-70 [facility] [place] Comment on above: Result Comment: Canc elled via OM: Order cancelled - Patient discharged Performed By: #### L 500.2500, L100.0100 ####[facility] [place] [address] [place], [address] PLT Normal 150-450 [facility] Comment on above: Result Comment: Canc elled via OM: Order cancelled - Patient discharged Performed By: #### L 500.2500, L100.0100 ####[facility] [address] [place], [address] RBC Normal 4.2-5.4 [facility] [place] Comment on above: Result Comment: Canc elled via OM: Order cancelled - Patient discharged Performed By: #### L 500.2500, L100.0100 ####[facility] [address] [place], [address] RDW CV Normal 11.6-14.6 [facility] [place] Comment on above: Result Comment: Canc elled via OM: Order cancelled - Patient discharged Performed By: #### L 500.2500, L100.0100 ####[facility] [address] [place], [address] RDW SD Normal 35.1-43.9 [facility] Comment on above: Result Comment: Canc elled via OM: Order cancelled - Patient discharged Performed By: #### L 500.2500, L100.0100 ####[facility] [address] [place], [address] WBC Normal 4.4-11.0 [facility] Comment on above: Result Comment: Canc elled via OM: Order cancelled - Patient discharged Performed By: #### L 500.2500, L100.0100 ####[facility] [address] [place], [address] Basic Metabolic Profile (BMP )on 04-29-2024 BUN/CRE 25.2 RATIO High 10-20 [facility] Comment on above: Performed By: #### L 500.2500, L501.2300, L501.5200, L100.0100 ####[facility] [address] [place], [address] CA,Total 8.1 mg/dL Low 8.5-10.1 [facility] Comment on above: Performed By: #### L 500.2500, L501.2300, L501.5200, L100.0100 ####[facility] [address] [place], [address] Chloride [Moles/Vol] 118 mmol/L High 98-107 [facility] Comment on above: Performed By: #### L 500.2500, L501.2300, L501.5200, L100.0100 ####[facility] [address] [place], [address] CO2 [Moles/Vol] 18.0 mmol/L Low 21.0-32.0 [facility] Comment on above: Performed By: #### L 500.2500, L501.2300, L501.5200, L100.0100 ####[facility] [address] [place], [address] Creatinine [Mass/Vol] 1.19 mg/dL High 0.55-1.02 [facility] Comment on above: Result Comment: The validity of the calculated GFR GFRAA in patients over70 years has not been determined. Clinical correlation isessential. Performed By: #### L 500.2500, L501.2300, L501.5200, L100.0100 ####[facility] [address] [place], [address] ECRCL 29.79 ml/min Normal [facility] Comment on above: Performed By: #### L 500.2500, L501.2300, L501.5200, L100.0100 ####[facility] [address] [place], [address] EST GFR - AA 56 mL/min Low >60 [facility] Comment on above: Result Comment: Afri can Japanese GFR Calc Performed By: #### L 500.2500, L501.2300, L501.5200, L100.0100 ####[facility] [address] [place], [address] GAP 6 Normal 5-15 [facility] Comment on above: Performed By: #### L 500.2500, L501.2300, L501.5200, L100.0100 ####[facility] [address] [place], [address] GFR/1.73 sq M.predicted among non-blacks MDRD (S/P/Bld) [Vol rate/Area] 46 mL/min/{1.73_m2} Low >60 [facility] Comment on above: Result Comment: Non- GFR Calc Performed By: #### L 500.2500, L501.2300, L501.5200, L100.0100 ####[facility] [address] [place], [address] Glucose [Mass/Vol] 101 mg/dL Normal 74-106 [facility] Comment on above: Result Comment: Fast ing Glucose result from 100 to 125 mg/dLsuggests IMPAIRED HOMEOSTASIS per A.D.A. criteria. Performed By: #### L 500.2500, L501.2300, L501.5200, L100.0100 ####[facility] [address] [place], [address] Potassium [Moles/Vol] 4.3 mmol/L Normal 3.5-5.1 [facility] Comment on above: Performed By: #### L 500.2500, L501.2300, L501.5200, L100.0100 ####[facility] [address] [place], [address] Sodium [Moles/Vol] 142 mmol/L Normal 136-145 [facility] Comment on above: Performed By: #### L 500.2500, L501.2300, L501.5200, L100.0100 ####[facility] [address] [place], [address] Urea nitrogen [Mass/Vol] 30 mg/dL High 7-18 [facility] Comment on above: Performed By: #### L 500.2500, L501.2300, L501.5200, L100.0100 ####[facility] [address] [place], [address] Bedside Glucoseon - FINGERSTICK GLU 230 mg/dL High 74-106 [facility] Comment on above: Result Comment: SKY GEMENT OF PATIENT CARE PER NURSING PROTOCOL Performed By: #### L 501.080 ####[facility] [address] [place], [address] FINGERSTICK GLU 98 mg/dL Normal 74-106 [facility] Comment on above: Result Comment: SKY GEMENT OF PATIENT CARE PER NURSING PROTOCOL Performed By: #### L 501.080 ####[facility] [address] [place], [address] FINGERSTICK GLU 90 mg/dL Normal 74-106 [facility] Comment on above: Result Comment: SKY GEMENT OF PATIENT CARE PER NURSING PROTOCOL Performed By: #### L 501.080 ####[facility] [address] [place], [address] CBC W/Diff, Automatedon 10-0 Absolute Lymph 1.37 X10 3/uL Normal 0.83-4.51 [facility] Comment on above: Performed By: #### L 500.2500, L501.2300, L501.5200, L100.0100 ####[facility] [address] [place], [address] Absolute Neut 6.5 X10 3/uL Normal 2.0-7.7 [facility] Comment on above: Performed By: #### L 500.2500, L501.2300, L501.5200, L100.0100 ####[facility] [address] [place], [address] Basophils/100 WBC (Bld) 0.7 % Normal 0-1 [facility] Comment on above: Performed By: #### L 500.2500, L501.2300, L501.5200, L100.0100 ####[facility] [address] [place], [address] Eosinophils/100 WBC (Bld) 2.1 % Normal 0-5 [facility] Comment on above: Performed By: #### L 500.2500, L501.2300, L501.5200, L100.0100 ####[facility] [address] [place], [address] Erythrocyte distribution width (RBC) [Ratio] 16.0 % High 11.6-14.6 [facility] Comment on above: Performed By: #### L 500.2500, L501.2300, L501.5200, L100.0100 ####[facility] [address] [place], [address] Hematocrit (Bld) [Volume fraction] 29.1 % Low 37-47 [facility] Comment on above: Performed By: #### L 500.2500, L501.2300, L501.5200, L100.0100 ####[facility] [address] [place], [address] Hemoglobin (Bld) [Mass/Vol] 9.1 g/dL Low 12.0-15.0 [facility] Comment on above: Performed By: #### L 500.2500, L501.2300, L501.5200, L100.0100 ####[facility] [address] [place], [address] IG% 0.800 Normal 0.0-0.9 [facility] Comment on above: Result Comment: IG% - Immature Granulocytes (promyelocytes, myelocytes andmetamyelocytes) > 1% indicates that a LEFT SHIFT is Present. Performed By: #### L 500.2500, L501.2300, L501.5200, L100.0100 ####[facility] [address] [place], [address] Lymphocytes/100 WBC (Bld) 15.5 % Low 19-41 [facility] Comment on above: Performed By: #### L 500.2500, L501.2300, L501.5200, L100.0100 ####[facility] [address] [place], [address] MCH (RBC) [Entitic mass] 28.7 pg Normal 27.0-32.0 [facility] Comment on above: Performed By: #### L 500.2500, L501.2300, L501.5200, L100.0100 ####[facility] [address] [place], [address] MCHC (RBC) [Mass/Vol] 31.3 g/dL Low 32-36 [facility] Comment on above: Performed By: #### L 500.2500, L501.2300, L501.5200, L100.0100 ####[facility] [address] [place], [address] MCV (RBC) [Entitic vol] 91.8 fL Normal 81-99 [facility] Comment on above: Performed By: #### L 500.2500, L501.2300, L501.5200, L100.0100 ####[facility] [address] [place], [address] Monocytes/100 WBC (Bld) 7.7 % Normal 0-10 [facility] Comment on above: Performed By: #### L 500.2500, L501.2300, L501.5200, L100.0100 ####[facility] [address] [place], [address] Neutrophils/100 WBC (Bld) 73.2 % High 47-70 [facility] Comment on above: Performed By: #### L 500.2500, L501.2300, L501.5200, L100.0100 ####[facility] [address] [place], [address] Nucleated RBC (Bld) [#/Vol] 0.2 10*3/uL Normal 0-5 [facility] Comment on above: Performed By: #### L 500.2500, L501.2300, L501.5200, L100.0100 ####[facility] [address] [place], [address] Platelet mean volume (Bld) [Entitic vol] 9.5 fL Normal 6.2-12.0 [facility] Comment on above: Performed By: #### L 500.2500, L501.2300, L501.5200, L100.0100 ####[facility] [address] [place], [address] Platelets (Bld) [#/Vol] 270 10*3/uL Normal 150-450 [facility] Comment on above: Performed By: #### L 500.2500, L501.2300, L501.5200, L100.0100 ####[facility] [address] [place], [address] RBC (Bld) [#/Vol] 3.17 10*6/uL Low 4.2-5.4 [facility] Comment on above: Performed By: #### L 500.2500, L501.2300, L501.5200, L100.0100 ####[facility] [address] [place], [address] RDW SD 53.6 fl High 35.1-43.9 [facility] Comment on above: Performed By: #### L 500.2500, L501.2300, L501.5200, L100.0100 ####[facility] [address] [place], [address] WBC (Bld) [#/Vol] 8.9 10*3/uL Normal 4.4-11.0 [facility] Comment on above: Performed By: #### L 500.2500, L501.2300, L501.5200, L100.0100 ####[facility] [address] [place], [address] Magnesiumon 04-29-2024 Magnesium [Mass/Vol] 2.0 mg/dL Normal 1.6-2.6 [facility] Comment on above: Performed By: #### L 500.2500, L501.2300, L501.5200, L100.0100 ####[facility] [address] [place], [address] Phosphoruson 04-29-2024 Phosphate [Mass/Vol] 2.6 mg/dL Normal 2.5-4.9 [facility] Comment on above: Performed By: #### L 500.2500, L501.2300, L501.5200, L100.0100 ####[facility] [address] [place], [address] Bedside Glucoseon 04-28-2024 FINGERSTICK GLU 139 mg/dL High 74-106 [facility] Comment on above: Result Comment: SKY DIAL OF PATIENT CARE PER NURSING PROTOCOL Performed By: #### L 501.080 ####[facility] [address] [place], [address] FINGERSTICK GLU 143 mg/dL High 74-106 [facility] Comment on above: Result Comment: SKY IDAL OF PATIENT CARE PER NURSING PROTOCOL Performed By: #### L 501.080 ####[facility] [address] [place], [address] CBC W/Diff, Automatedon 10-0 2-4 Absolute Lymph 1.40 X10 3/uL Normal 0.83-4.51 [facility] Comment on above: Performed By: #### L 100.0100 ####[facility] [address] [place], [address] Absolute Neut 9.1 X10 3/uL High 2.0-7.7 [facility] Comment on above: Performed By: #### L 100.0100 ####[facility] [address] [place], [address] Basophils/100 WBC (Bld) 0.4 % Normal 0-1 [facility] Comment on above: Performed By: #### L 100.0100 ####[facility] [address] [place], [address] Eosinophils/100 WBC (Bld) 0.3 % Normal 0-5 [facility] Comment on above: Performed By: #### L 100.0100 ####[facility] [address] [place], [address] Erythrocyte distribution width (RBC) [Ratio] 14.9 % High 11.6-14.6 [facility] Comment on above: Performed By: #### L 100.0100 ####[facility] [address] [place], [address] Hematocrit (Bld) [Volume fraction] 21.6 % Low 37-47 [facility] Comment on above: Performed By: #### L 100.0100 ####[facility] [address] [place], [address] Hemoglobin (Bld) [Mass/Vol] 6.5 g/dL Low 12.0-15.0 [facility] Comment on above: Performed By: #### L 100.0100 ####[facility] [address] [place], [address] IG% 0.500 Normal 0.0-0.9 [facility] Comment on above: Result Comment: IG% - Immature Granulocytes (promyelocytes, myelocytes andmetamyelocytes) > 1% indicates that a LEFT SHIFT is Present. Performed By: #### L 100.0100 ####[facility] [address] [place], [address] Lymphocytes/100 WBC (Bld) 12.4 % Low 19-41 [facility] Comment on above: Performed By: #### L 100.0100 ####[facility] [address] [place], [address] MCH (RBC) [Entitic mass] 28.6 pg Normal 27.0-32.0 [facility] Comment on above: Performed By: #### L 100.0100 ####[facility] [address] [place], [address] MCHC (RBC) [Mass/Vol] 30.1 g/dL Low 32-36 [facility] Comment on above: Performed By: #### L 100.0100 ####[facility] [address] [place], [address] MCV (RBC) [Entitic vol] 95.2 fL Normal 81-99 [facility] Comment on above: Performed By: #### L 100.0100 ####[facility] [address] [place], [address] Monocytes/100 WBC (Bld) 6.1 % Normal 0-10 [facility] Comment on above: Performed By: #### L 100.0100 ####[facility] [address] [place], [address] Neutrophils/100 WBC (Bld) 80.3 % High 47-70 [facility] Comment on above: Performed By: #### L 100.0100 ####[facility] [address] [place], [address] Nucleated RBC (Bld) [#/Vol] 0 10*3/uL Normal 0-5 [facility] Comment on above: Performed By: #### L 100.0100 ####[facility] [address] [place], [address] Platelet mean volume (Bld) [Entitic vol] 9.6 fL Normal 6.2-12.0 [facility] Comment on above: Performed By: #### L 100.0100 ####[facility] [address] [place], [address] Platelets (Bld) [#/Vol] 326 10*3/uL Normal 150-450 [facility] Comment on above: Performed By: #### L 100.0100 ####[facility] [address] [place], [address] RBC (Bld) [#/Vol] 2.27 10*6/uL Low 4.2-5.4 [facility] Comment on above: Performed By: #### L 100.0100 ####[facility] [address] [place], [address] RDW SD 51.1 fl High 35.1-43.9 [facility] Comment on above: Performed By: #### L 100.0100 ####[facility] [address] [place], [address] WBC (Bld) [#/Vol] 11.3 10*3/uL High 4.4-11.0 [facility] Comment on above: Performed By: #### L 100.0100 ####[facility] [address] [place], [address] Comprehensive Metabolic Prof ilon 04-28-2024 Albumin [Mass/Vol] 2.5 g/dL Low 3.2-5.0 [facility] Comment on above: Performed By: #### L 500.4050 ####[facility] [address] [place], [address] Albumin/Globulin [Mass ratio] 0.9 {ratio} Normal 0.9-2.4 [facility] Comment on above: Performed By: #### L 500.4050 ####[facility] [address] [place], [address] ALK P 49 U/L Normal 45-117 [facility] Comment on above: Performed By: #### L 500.4050 ####[facility] [address] [place], [address] ALT [Catalytic activity/Vol] 14 U/L Normal 13-56 [facility] Comment on above: Performed By: #### L 500.4050 ####[facility] [address] [place], [address] AST [Catalytic activity/Vol] 15 U/L Normal 15-37 [facility] Comment on above: Performed By: #### L 500.4050 ####[facility] [address] [place], [address] Bilirubin [Mass/Vol] 0.20 mg/dL Normal 0.20-1.00 [facility] Comment on above: Result Comment: For patients on eltrombopag therapy, use of Dimension Leland TBIL is not recommended. Performed By: #### L 500.4050 ####[facility] [address] [place], [address] BUN/CRE 36.4 RATIO High 10-20 [facility] Comment on above: Performed By: #### L 500.4050 ####[facility] [address] [place], [address] CA,Total 7.9 mg/dL Low 8.5-10.1 [facility] Comment on above: Performed By: #### L 500.4050 ####[facility] [address] [place], [address] Chloride [Moles/Vol] 114 mmol/L High 98-107 [facility] Comment on above: Performed By: #### L 500.4050 ####[facility] [address] [place], [address] CO2 [Moles/Vol] 21.0 mmol/L Normal 21.0-32.0 [facility] Comment on above: Performed By: #### L 500.4050 ####[facility] [address] [place], [address] Creatinine [Mass/Vol] 1.51 mg/dL High 0.55-1.02 [facility] Comment on above: Result Comment: The validity of the calculated GFR GFRAA in patients over70 years has not been determined. Clinical correlation isessential. Performed By: #### L 500.4050 ####[facility] [address] [place], [address] ECRCL 23.31 ml/min Normal [facility] Comment on above: Performed By: #### L 500.4050 ####[facility] [address] [place], [address] EST GFR - AA 43 mL/min Low >60 [facility] Comment on above: Result Comment: Afri can Japanese GFR Calc Performed By: #### L 500.4050 ####[facility] [address] [place], [address] GAP 4 Low 5-15 [facility] Comment on above: Performed By: #### L 500.4050 ####[facility] [address] [place], [address] GFR/1.73 sq M.predicted among non-blacks MDRD (S/P/Bld) [Vol rate/Area] 35 mL/min/{1.73_m2} Low >60 [facility] Comment on above: Result Comment: Non- GFR Calc Performed By: #### L 500.4050 ####[facility] [address] [place], [address] Globulin (S) [Mass/Vol] 2.7 g/dL Normal 2.2-4.2 [facility] Comment on above: Performed By: #### L 500.4050 ####[facility] [address] [place], [address] Glucose [Mass/Vol] 137 mg/dL High 74-106 [facility] Comment on above: Result Comment: Fast ing Glucose result greater than or equal to 126 mg/dLsuggests DIABETES MELLITUS per A.D.A. criteria. Performed By: #### L 500.4050 ####[facility] [address] [place], [address] Potassium [Moles/Vol] 4.7 mmol/L Normal 3.5-5.1 [facility] Comment on above: Performed By: #### L 500.4050 ####[facility] [address] [place], [address] Sodium [Moles/Vol] 139 mmol/L Normal 136-145 [facility] Comment on above: Performed By: #### L 500.4050 ####[facility] [address] [place], [address] T PROT 5.2 g/dL Low 6.4-8.2 [facility] Comment on above: Performed By: #### L 500.4050 ####[facility] [address] [place], [address] Urea nitrogen [Mass/Vol] 55 mg/dL High 7-18 [facility] Comment on above: Performed By: #### L 500.4050 ####[facility] [address] [place], [address] EGD Reporton 04-28-2024 EGD Report Normal [facility] H Pylori (initial)on 024 H Pylori (initial) Normal [facility] Comment on above: Performed By: #### P H.PYLORI ####[facility] [address] [place], [address] HH, Hemoglobin AND Hematocri ton 04-28-2024 Hematocrit (Bld) [Volume fraction] 30.4 % Low 37-47 [facility] Comment on above: Performed By: #### L 100.0600 ####[facility] [address] [place], [address] Hemoglobin (Bld) [Mass/Vol] 9.6 g/dL Low 12.0-15.0 [facility] Comment on above: Performed By: #### L 100.0600 ####[facility] [address] [place], [address] Hematocrit (Bld) [Volume fraction] 25.5 % Low 37-47 [facility] Comment on above: Performed By: #### L 100.0600 ####[facility] [address] [place], [address] Hemoglobin (Bld) [Mass/Vol] 7.8 g/dL Low 12.0-15.0 [facility] Comment on above: Performed By: #### L 100.0600 ####[facility] [address] [place], [address] Hematocrit (Bld) [Volume fraction] 22.3 % Low 37-47 [facility] Comment on above: Performed By: #### L 100.0600 ####[facility] [address] [place], [address] Hemoglobin (Bld) [Mass/Vol] 6.9 g/dL Low 12.0-15.0 [facility] Comment on above: Performed By: #### L 100.0600 ####[facility] [address] [place], [address] MR/POSTOP.ANEon 04-28-2024 MR/POSTOP.ANE Normal [facility] MR/[id number] 04-28-2024 MR/POSTOPAN2 Normal [facility] Surgery Specimen Level Cristian 04-28-2024 Surgery Specimen Level IV Normal [facility] Comment on above: Performed By: #### P SUIV ####[facility] [address] [place], [address] Abdomen/Pelvis W IV Cont ONL Yon 04-27-2024 Abdomen/Pelvis W IV Cont ONLY Normal [facility] BRCon 04-27-2024 RC Normal [facility] Comment on above: Result Comment: [id number] ABN RC TRANSFUSED 04/28/24 [id number] ABP RC TRANSFUSED 04/28/24 1048 Performed By: #### B RC ####[facility] [address] [place], [address] Bedside Glucoseon 04-27-2024 FINGERSTICK GLU 110 mg/dL High 74-106 [facility] Comment on above: Result Comment: SKY DIAL OF PATIENT CARE PER NURSING PROTOCOL Performed By: #### L 501.080 ####[facility] [address] [place], [address] CBC W/Diff, Automatedon Absolute Lymph 0.80 X10 3/uL Low 0.83-4.51 [facility] Comment on above: Performed By: #### L 503.6005, L500.4050, M100.7900, L100.0100, L501.2450 ####[facility] [address] [place], [address] Absolute Neut 18.7 X10 3/uL High 2.0-7.7 [facility] Comment on above: Performed By: #### L 503.6005, L500.4050, M100.7900, L100.0100, L501.2450 ####[facility] [address] [place], [address] Basophils/100 WBC (Bld) 0.2 % Normal 0-1 [facility] Comment on above: Performed By: #### L 503.6005, L500.4050, M100.7900, L100.0100, L501.2450 ####[facility] [address] [place], [address] Eosinophils/100 WBC (Bld) 0.0 % Normal 0-5 [facility] Comment on above: Performed By: #### L 503.6005, L500.4050, M100.7900, L100.0100, L501.2450 ####[facility] [address] [place], [address] Erythrocyte distribution width (RBC) [Ratio] 14.7 % High 11.6-14.6 [facility] Comment on above: Performed By: #### L 503.6005, L500.4050, M100.7900, L100.0100, L501.2450 ####[facility] [address] [place], [address] Hematocrit (Bld) [Volume fraction] 28.1 % Low 37-47 [facility] Comment on above: Performed By: #### L 503.6005, L500.4050, M100.7900, L100.0100, L501.2450 ####[facility] [address] [place], [address] Hemoglobin (Bld) [Mass/Vol] 8.6 g/dL Low 12.0-15.0 [facility] Comment on above: Performed By: #### L 503.6005, L500.4050, M100.7900, L100.0100, L501.2450 ####[facility] [address] [place], [address] IG% 0.700 Normal 0.0-0.9 [facility] Comment on above: Result Comment: IG% - Immature Granulocytes (promyelocytes, myelocytes andmetamyelocytes) > 1% indicates that a LEFT SHIFT is Present. Performed By: #### L 503.6005, L500.4050, M100.7900, L100.0100, L501.2450 ####[facility] [address] [place], [address] Lymphocytes/100 WBC (Bld) 3.8 % Low 19-41 [facility] Comment on above: Performed By: #### L 503.6005, L500.4050, M100.7900, L100.0100, L501.2450 ####[facility] [address] [place], [address] MCH (RBC) [Entitic mass] 29.2 pg Normal 27.0-32.0 [facility] Comment on above: Performed By: #### L 503.6005, L500.4050, M100.7900, L100.0100, L501.2450 ####[facility] [address] [place], [address] MCHC (RBC) [Mass/Vol] 30.6 g/dL Low 32-36 [facility] Comment on above: Performed By: #### L 503.6005, L500.4050, M100.7900, L100.0100, L501.2450 ####[facility] [address] [place], [address] MCV (RBC) [Entitic vol] 95.3 fL Normal 81-99 [facility] Comment on above: Performed By: #### L 503.6005, L500.4050, M100.7900, L100.0100, L501.2450 ####[facility] [address] [place], [address] Monocytes/100 WBC (Bld) 5.9 % Normal 0-10 [facility] Comment on above: Performed By: #### L 503.6005, L500.4050, M100.7900, L100.0100, L501.2450 ####[facility] [address] [place], [address] Neutrophils/100 WBC (Bld) 89.4 % High 47-70 [facility] Comment on above: Performed By: #### L 503.6005, L500.4050, M100.7900, L100.0100, L501.2450 ####[facility] [address] [place], [address] Nucleated RBC (Bld) [#/Vol] 0 10*3/uL Normal 0-5 [facility] Comment on above: Performed By: #### L 503.6005, L500.4050, M100.7900, L100.0100, L501.2450 ####[facility] [address] [place], [address] Platelet mean volume (Bld) [Entitic vol] 9.6 fL Normal 6.2-12.0 [facility] Comment on above: Performed By: #### L 503.6005, L500.4050, M100.7900, L100.0100, L501.2450 ####[facility] [address] [place], [address] Platelets (Bld) [#/Vol] 410 10*3/uL Normal 150-450 [facility] Comment on above: Performed By: #### L 503.6005, L500.4050, M100.7900, L100.0100, L501.2450 ####[facility] [address] [place], [address] RBC (Bld) [#/Vol] 2.95 10*6/uL Low 4.2-5.4 [facility] Comment on above: Performed By: #### L 503.6005, L500.4050, M100.7900, L100.0100, L501.2450 ####[facility] [address] [place], [address] RDW SD 51.3 fl High 35.1-43.9 [facility] Comment on above: Performed By: #### L 503.6005, L500.4050, M100.7900, L100.0100, L501.2450 ####[facility] [address] [place], [address] WBC (Bld) [#/Vol] 20.9 10*3/uL High 4.4-11.0 [facility] Comment on above: Performed By: #### L 503.6005, L500.4050, M100.7900, L100.0100, L501.2450 ####[facility] [address] [place], [address] Comprehensive Metabolic [facility] 04-27-2024 Albumin [Mass/Vol] 3.0 g/dL Low 3.2-5.0 [facility] Comment on above: Performed By: #### L 503.6005, L500.4050, M100.7900, L100.0100, L501.2450 ####[facility] [address] [place], [address] Albumin/Globulin [Mass ratio] 0.9 {ratio} Normal 0.9-2.4 [facility] Comment on above: Performed By: #### L 503.6005, L500.4050, M100.7900, L100.0100, L501.2450 ####[facility] [address] [place], [address] ALK P 62 U/L Normal 45-117 [facility] Comment on above: Performed By: #### L 503.6005, L500.4050, M100.7900, L100.0100, L501.2450 ####[facility] [address] [place], [address] ALT [Catalytic activity/Vol] 22 U/L Normal 13-56 [facility] Comment on above: Performed By: #### L 503.6005, L500.4050, M100.7900, L100.0100, L501.2450 ####[facility] [address] [place], [address] AST [Catalytic activity/Vol] 17 U/L Normal 15-37 [facility] Comment on above: Performed By: #### L 503.6005, L500.4050, M100.7900, L100.0100, L501.2450 ####[facility] [address] [place], [address] Bilirubin [Mass/Vol] 0.20 mg/dL Normal 0.20-1.00 [facility] Comment on above: Result Comment: For patients on eltrombopag therapy, use of Dimension Leland TBIL is not recommended. Performed By: #### L 503.6005, L500.4050, M100.7900, L100.0100, L501.2450 ####[facility] [address] [place], [address] BUN/CRE 42.0 RATIO High 10-20 [facility] Comment on above: Performed By: #### L 503.6005, L500.4050, M100.7900, L100.0100, L501.2450 ####[facility] [address] [place], [address] CA,Total 8.7 mg/dL Normal 8.5-10.1 [facility] Comment on above: Performed By: #### L 503.6005, L500.4050, M100.7900, L100.0100, L501.2450 ####[facility] [address] [place], [address] Chloride [Moles/Vol] 105 mmol/L Normal 98-107 [facility] Comment on above: Performed By: #### L 503.6005, L500.4050, M100.7900, L100.0100, L501.2450 ####[facility] [address] [place], [address] CO2 [Moles/Vol] 20.0 mmol/L Low 21.0-32.0 [facility] Comment on above: Performed By: #### L 503.6005, L500.4050, M100.7900, L100.0100, L501.2450 ####[facility] [address] [place], [address] Creatinine [Mass/Vol] 1.62 mg/dL High 0.55-1.02 [facility] Comment on above: Result Comment: The validity of the calculated GFR GFRAA in patients over70 years has not been determined. Clinical correlation isessential. Performed By: #### L 503.6005, L500.4050, M100.7900, L100.0100, L501.2450 ####[facility] [address] [place], [address] ECRCL 22.32 ml/min Normal [facility] Comment on above: Performed By: #### L 503.6005, L500.4050, M100.7900, L100.0100, L501.2450 ####[facility] [address] [place], [address] EST GFR - AA 39 mL/min Low >60 [facility] Comment on above: Result Comment: Afri can Japanese GFR Calc Performed By: #### L 503.6005, L500.4050, M100.7900, L100.0100, L501.2450 ####[facility] [address] [place], [address] GAP 9 Normal 5-15 [facility] Comment on above: Performed By: #### L 503.6005, L500.4050, M100.7900, L100.0100, L501.2450 ####[facility] [address] [place], [address] GFR/1.73 sq M.predicted among non-blacks MDRD (S/P/Bld) [Vol rate/Area] 32 mL/min/{1.73_m2} Low >60 [facility] Comment on above: Result Comment: Non- GFR Calc Performed By: #### L 503.6005, L500.4050, M100.7900, L100.0100, L501.2450 ####[facility] [address] [place], [address] Globulin (S) [Mass/Vol] 3.5 g/dL Normal 2.2-4.2 [facility] Comment on above: Performed By: #### L 503.6005, L500.4050, M100.7900, L100.0100, L501.2450 ####[facility] [address] [place], [address] Glucose [Mass/Vol] 228 mg/dL High 74-106 [facility] Comment on above: Result Comment: Gluc ose result greater than or equal to 200 mg/dLsuggests DIABETES MELLITUS per A.D.A. criteria. Performed By: #### L 503.6005, L500.4050, M100.7900, L100.0100, L501.2450 ####[facility] [address] [place], [address] Potassium [Moles/Vol] 5.2 mmol/L High 3.5-5.1 [facility] Comment on above: Performed By: #### L 503.6005, L500.4050, M100.7900, L100.0100, L501.2450 ####[facility] [address] [place], [address] Sodium [Moles/Vol] 133 mmol/L Low 136-145 [facility] Comment on above: Performed By: #### L 503.6005, L500.4050, M100.7900, L100.0100, L501.2450 ####[facility] [address] [place], [address] T PROT 6.5 g/dL Normal 6.4-8.2 [facility] Comment on above: Performed By: #### L 503.6005, L500.4050, M100.7900, L100.0100, L501.2450 ####[facility] [address] [place], [address] Urea nitrogen [Mass/Vol] 68 mg/dL High 7-18 [facility] Comment on above: Performed By: #### L 503.6005, L500.4050, M100.7900, L100.0100, L501.2450 ####[facility] [address] [place], [address] Emergency Department Summary on 04-27-2024 Emergency Department Summary Normal [facility] H AND P Exam - Hospitaliston 04-27-2024 H&P Exam - Hospitalist Normal [facility] Lactic Acidon 04-27-2024 Lactate [Moles/Vol] 1.5 mmol/L Normal 0.4-1.9 [facility] Comment on above: Performed By: #### L 503.6005 ####[facility] [address] [place], [address] Lactate [Moles/Vol] 2.4 mmol/L Invalid Interpretation Code 0.4-1.9 [facility] Comment on above: Order Comment: Y Result Comment: Lindat ical Result(s) Called at: 16:43:32 04/27/2024 by: JAC. Results read back by Tanner Performed By: #### L 503.6005, L500.4050, M100.7900, L100.0100, L501.2450 ####[facility] [address] [place], [address] Lipaseon 04-27-2024 Lipase [Catalytic activity/Vol] 44 U/L Normal 13-75 [facility] Comment on above: Result Comment: Roberta hart note:LIPASE revised reference range effective 22.New Lipase methodology. Expected to produce lower valuesthan the previous assay method.NEW Reference Range: 13 - 75 U/L Performed By: #### L 503.6005, L500.4050, M100.7900, L100.0100, L501.2450 ####[facility] [address] [place], [address] MR/CON.PCM.GIon 04-27-2024 MR/CON.PCM.GI Normal [facility] Magnesiumon 04-27-2024 Magnesium [Mass/Vol] 2.5 mg/dL Normal 1.6-2.6 [facility] Comment on above: Order Comment: Comme nts: may add to ED labs Performed By: #### B TS, L501.5200 ####[facility] [address] [place], [address] Partial Thromboplast Timeon 04-27-2024 aPTT Coag (Bld) [Time] 30.0 s Normal 24.1-36.2 [facility] Comment on above: Performed By: #### L 300.4310, L300.3900 ####[facility] [address] [place], [address] Prothrombin Time w/INRon INR Coag (PPP) [Relative time] 1.3 {INR} Normal [facility] Comment on above: Performed By: #### L 300.4310, L300.3900 ####[facility] [address] [place], [address] PT Coag (PPP) [Time] 15.7 s High 11.7-14.9 [facility] Comment on above: Performed By: #### L 300.4310, L300.3900 ####[facility] [address] [place], [address] Stool Occult Blood iFOBon STOB Positive Normal [facility] Comment on above: Performed By: #### L 503.6005, L500.4050, M100.7900, L100.0100, L501.2450 ####[facility] [address] [place], [address] Type AND Screenon 04-27-2024 ABO and Rh group Nom (Bld) Blood group AB Rh(D) positive Normal [facility] Comment on above: Order Comment: HGI Performed By: #### B TS, L501.5200 ####[facility] [address] [place], [address] Urinalysis, Completeon 04-27 WBC 10-25 SEEN Normal 0-5 [facility] Comment on above: Order Comment: CLEAN CATCH Performed By: #### L 400.0001 ####[facility] [address] [place], [address] EPI,TRANSITION 0-5 SEEN Normal 0-5 [facility] Comment on above: Order Comment: CLEAN CATCH Performed By: #### L 400.0001 ####[facility] [address] [place], [address] BACTERIA 1+ /hpf Normal None Seen [facility] Comment on above: Order Comment: CLEAN CATCH Performed By: #### L 400.0001 ####[facility] [address] [place], [address] EPI,SQUAMOUS 0-5 SEEN Normal 5-10 [facility] Comment on above: Order Comment: CLEAN CATCH Performed By: #### L 400.0001 ####[facility] [address] [place], [address] Mucus Ql (Urine sed) 0 SEEN Normal [facility] Comment on above: Order Comment: CLEAN CATCH Performed By: #### L 400.0001 ####[facility] [address] [place], [address] RBC 0 SEEN Normal 0-5 [facility] Comment on above: Order Comment: CLEAN CATCH Performed By: #### L 400.0001 ####[facility] [address] [place], [address] CT ANGIOGRAPHY ABD/PELVIS/BI LAT LOWER EXTREMon 04-23-2024 CT ANGIOGRAPHY ABD/PELVIS/BILAT LOWER EXTREM ORIGINAL EXAMINATION: CTA OF THE AORTA WITH LOWER EXTREMITY RUNOFF 04/23/2024 11:53 am TECHNIQUE: CTA of the pelvis and bilateral lower extremities was performed after the administration of intravenous contrast. Multiplanar reformatted images are provided for review. MIP images are provided for review. Automated exposure control, iterative reconstruction, and/or weight based adjustment of the mA/kV was utilized to reduce the radiation dose to as low as reasonably achievable. 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 The liver and spleen are largely excluded from the field of view. No hydroureteronephrosis. The pancreas and adrenal glands are grossly unremarkable. . GI/Bowel: The bowel loops are partially excluded from the field of view. No evidence of obstruction. Pelvis: The uterus is surgically absent. Peritoneum/Retroperitoneum : No lymphadenopathy identified. No free intraperitoneal air or fluid Bones/Soft Tissues: No acute fracture or suspicious osseous lesion identified. VASCULAR Aorta: Severe abdominal aortic atherosclerosis with circumferential mural calcification and extensive mixed density plaque. No significant luminal stenosis or aneurysm. Visceral arteries: Stable moderate celiac ostial stenosis. Conventional celiac branching. Patent superior mesenteric artery. Patent inferior mesenteric artery. Normal variation with duplicated bilateral renal arteries. Densely calcified aortic plaque limits evaluation at the origin of the renal arteries, although they are otherwise patent. Appearance of the renal arteries is similar to the prior study. Pelvic arteries: Severe mixed density pelvic atherosclerotic plaque. Stable mild right common iliac artery stenosis associated with plaque ulceration. Stable moderate, approximately 50% proximal left common iliac artery stenosis associated with mixed density atherosclerotic plaque. Stable mild mid right external iliac artery stenosis associated with stable short segment dissection flap. Short-segment left mid external iliac artery occlusion versus subocclusive stenosis is progressed from the prior study. Severe stenosis of both internal iliac arteries. Right lower extremity: The common femoral arteries patent. The deep femoral artery is patent proximally with multiple tandem mild stenoses distally. The superficial femoral artery is occluded throughout its course. The popliteal artery reconstitutes just above the level of the knee through genicular and intramuscular collaterals. There is moderate stenosis of the popliteal artery at the level of the knee joint associated with mixed density atherosclerotic plaque. The anterior tibial artery is largely patent and gives rise to a patent dorsalis pedis. Calcified atherosclerotic plaque limits evaluation of the tibioperoneal trunk although high-grade stenosis is not favored. The posterior tibial artery is largely patent and gives rise to a patent plantar artery. The peroneal artery is largely patent. Left lower extremity: Small caliber common femoral artery the deep femoral artery is patent. The superficial femoral artery is occluded throughout its course. There is reconstitution of the popliteal artery just above the level of the knee joint through the intramuscular and geniculate collaterals. Mixed density atherosclerotic plaque causes mild stenosis of the popliteal artery distally. The anterior tibial artery is largely patent and gives rise to a patent dorsalis pedis artery. The tibioperoneal trunk is patent. The posterior tibial artery is largely pain in gives rise to a patent plantar artery. The peroneal artery is patent. 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 Three-vessel runoff to both feet. RECOMMENDATIONS: Correlate with FRANCIS and signs and symptoms of limb ischemia. Interpreted by: Ken Flood Preliminary Report By: Ken Flood Electronically signed By Ken Flood Dictated Date: 04/23/2024 4:00:52 PM Prelim Date: 04/23/2024 4:16:17 PM Sign Date: 04/23/2024 4:16:17 PM Ordering Provider: PEYMAN MENA [facility] .GFRon 04-21-2024 GFR Non- 33 ml/min/1.73sqm [facility] Comment on above: Result Comment: GFR Population mean for , Non- Americans Ages 20-29 = 116 mL/min/1.73 sq.m. Ages 30-39 = 107 mL/min/1.73 sq.m. Ages 40-49 = 99 mL/min/1.73 sq.m. Ages 50-59 = 93 mL/min/1.73 sq.m. Ages 60-69 = 85 mL/min/1.73 sq.m. Ages 70+ = 75 mL/min/1.73 sq.m. Chronic Kidney Disease: Less than 60 mL/min/1.73 square meters End Stage Renal Disease: Less than 15 mL/min/1.73 square meters Performed By: #### G FR, CRE, BUN #### [address] [address] GFR 40 ml/min/1.73sqm [facility] Comment on above: Result Comment: GFR Population mean for , Non- Americans Ages 20-29 = 116 mL/min/1.73 sq.m. Ages 30-39 = 107 mL/min/1.73 sq.m. Ages 40-49 = 99 mL/min/1.73 sq.m. Ages 50-59 = 93 mL/min/1.73 sq.m. Ages 60-69 = 85 mL/min/1.73 sq.m. Ages 70+ = 75 mL/min/1.73 sq.m. Chronic Kidney Disease: Less than 60 mL/min/1.73 square meters End Stage Renal Disease: Less than 15 mL/min/1.73 square meters Performed By: #### G FR, CRE, BUN #### [place] [address] [address] BUNon 04-21-2024 Urea nitrogen [Mass/Vol] 72 mg/dL High 7-18 [facility] Comment on above: Performed By: #### G FR, CRE, BUN #### [address] [address] CREon 04-21-2024 Creatinine [Mass/Vol] 1.51 mg/dL High 0.55-1.02 [facility] Comment on above: Result Comment: Test ing performed on Siemens Dimension EXL analyzer using a modified kinetic Nate technique. Performed By: #### G FR, CRE, BUN #### [address] [address] LABORATORYOrdered By: SYSTEM SYSTEM on 04-21-2024 Creatinine [Mass/Vol] 1.51 mg/dL High 0.55 - 1.02 mg/dL AO ADM Comment on above: Interpretive Data: T esting performed on Siemens Dimension EXL analyzer using a modified kinetic Nate technique. GFR/1.73 sq M.predicted among blacks MDRD (S/P/Bld) [Vol rate/Area] 40 ml/min/1.73sqm Invalid Interpretation Code AO Chemistry S Comment on above: Interpretive Data: GFR Population mean for , Non- Americans Ages 20-29 = 116 mL/min/1.73 sq.m. Ages 30-39 = 107 mL/min/1.73 sq.m. Ages 40-49 = 99 mL/min/1.73 sq.m. Ages 50-59 = 93 mL/min/1.73 sq.m. Ages 60-69 = 85 mL/min/1.73 sq.m. Ages 70+ = 75 mL/min/1.73 sq.m. Chronic Kidney Disease: Less than 60 mL/min/1.73 square meters End Stage Renal Disease: Less than 15 mL/min/1.73 square meters GFR/1.73 sq M.predicted among non-blacks MDRD (S/P/Bld) [Vol rate/Area] 33 ml/min/1.73sqm Invalid Interpretation Code AO Chemistry S Comment on above: Interpretive Data: GFR Population mean for , Non- Americans Ages 20-29 = 116 mL/min/1.73 sq.m. Ages 30-39 = 107 mL/min/1.73 sq.m. Ages 40-49 = 99 mL/min/1.73 sq.m. Ages 50-59 = 93 mL/min/1.73 sq.m. Ages 60-69 = 85 mL/min/1.73 sq.m. Ages 70+ = 75 mL/min/1.73 sq.m. Chronic Kidney Disease: Less than 60 mL/min/1.73 square meters End Stage Renal Disease: Less than 15 mL/min/1.73 square meters Urea nitrogen [Mass/Vol] 72 mg/dL High 7 - 18 mg/dL AO ADM SS Pulmonary Visit Reporton Pulmonary Visit Report Normal [facility] Orthopedic Visit Reporton Orthopedic Visit Report Normal [facility] Shoulder min 2 Viewson 02-23 Shoulder min 2 Views Normal [facility] Inital Evaluation (1) - PTon 02-17-2024 Inital Evaluation (1) - PT Normal [facility] XR SACRUM/COCCYX MINIMUM 2 V IEWSon 01-28-2024 XR SACRUM/COCCYX MINIMUM 2 VIEWS ORIGINAL EXAMINATION: THREE XRAY VIEWS OF THE SACRUM/COCCYX 01/28/2024 12:19 pm COMPARISON: None. HISTORY: ORDERING SYSTEM PROVIDED HISTORY: Reason for Exam: pain, injury FINDINGS: There is no evidence of acute fracture. There is normal alignment. No acute joint abnormality. No focal osseous lesion. No focal soft tissue abnormality. IMPRESSION: No acute osseous abnormality. Interpreted by: Meet Gallardo DO Preliminary Report By: Meet Gallardo DO Electronically signed By Meet Gallardo DO Dictated Date: 01/28/2024 4:19:02 PM Prelim Date: 01/28/2024 4:19:37 PM Sign Date: 01/28/2024 4:19:37 PM Ordering Provider: JAMIE Leach [facility] ([place]) XR SPINE LUMBAR AP/LATon XR SPINE LUMBAR AP/LAT ORIGINAL EXAMINATION: 3 XRAY VIEWS OF THE LUMBAR SPINE01/28/2024 12:18 pm LUMBAR SPINE 2 or 3 VIEWS COMPARISON: None HISTORY: ORDERING SYSTEM PROVIDED HISTORY: Reason for Exam: injury, pain FINDINGS: Lumbar vertebral alignment is maintained. Mild multilevel disc height loss and marginal osteophytes seen, most prevalent at L1-2. Moderate multilevel arthropathy is most prevalent in the lower lumbar spine. Atherosclerotic calcifications noted of the aorta. Mild T10 compression deformity is of uncertain age. IMPRESSION: Age indeterminate mild T10 compression deformity Multilevel degenerative changes, as above Interpreted by: Meet Tse MD Preliminary Report By: Meet Tse MD Electronically signed By Meet Tse MD Dictated Date: 01/28/2024 4:19:54 PM Prelim Date: 01/28/2024 4:21:49 PM Sign Date: 01/28/2024 4:21:49 PM Ordering Provider: JAMIE Leach [facility] ([place]) .Auto Diffon 12-29-2023 Basophil, Absolute 0.1 10 3/mcL Normal 0.0-0.2 [facility] ([place]) Comment on above: Performed By: #### A 1C, FES, ADIFF, VIDH, FERR, URIC, GFR, ANEU, CBC, RFP #### [address] [address] #### C3C4A, SPE #### [address] [address] Basophils/100 WBC (Bld) 1.2 % Normal 0.0-2.5 [facility] ([place]) Comment on above: Performed By: #### A 1C, FES, ADIFF, VIDH, FERR, URIC, GFR, ANEU, CBC, RFP #### [address] [address] #### C3C4A, SPE #### [address] [address] Eosinophil, Absolute 0.2 10 3/mcL Normal 0.0-0.4 [facility] ([place]) Comment on above: Performed By: #### A 1C, FES, ADIFF, VIDH, FERR, URIC, GFR, ANEU, CBC, RFP #### [address] [address] #### C3C4A, SPE #### [address] [address] Eosinophils/100 WBC (Bld) 4.3 % Normal 0.0-7.0 [facility] ([place]) Comment on above: Performed By: #### A 1C, FES, ADIFF, VIDH, FERR, URIC, GFR, ANEU, CBC, RFP #### [address] [address] #### C3C4A, SPE #### [address] [address] Lymphocyte, Absolute 1.8 10 3/mcL Normal 0.8-3.9 [facility] ([place]) Comment on above: Performed By: #### A 1C, FES, ADIFF, VIDH, FERR, URIC, GFR, ANEU, CBC, RFP #### [address] [address] #### C3C4A, SPE #### [address] [address] Lymphocytes/100 WBC (Bld) 32.4 % Normal 10.0-50.0 [facility] ([place] Comment on above: Performed By: #### A 1C, FES, ADIFF, VIDH, FERR, URIC, GFR, ANEU, CBC, RFP #### [address] [address] #### C3C4A, SPE #### [address] [address] Monocyte, Absolute 0.6 10 3/mcL Normal 0.2-1.0 [facility] ([place]) Comment on above: Performed By: #### A 1C, FES, ADIFF, VIDH, FERR, URIC, GFR, ANEU, CBC, RFP #### [address] [address] #### C3C4A, SPE #### [address] [address] Monocytes/100 WBC (Bld) 9.7 % Normal 1.7-13.0 [facility] ([place]) Comment on above: Performed By: #### A 1C, FES, ADIFF, VIDH, FERR, URIC, GFR, ANEU, CBC, RFP #### [address] [address] #### C3C4A, SPE #### [address] [address] Neutrophils/100 WBC (Bld) 52.4 % Normal 37.0-80.0 [facility] ([place]) Comment on above: Performed By: #### A 1C, FES, ADIFF, VIDH, FERR, URIC, GFR, ANEU, CBC, RFP #### [address] [address] #### C3C4A, SPE #### [address] [address] .GFRon 12-29-2023 GFR 55 ml/min/1.73sqm Normal [facility] ([place]) Comment on above: Result Comment: GFR Population mean for , Non- Americans Ages 20-29 = 116 mL/min/1.73 sq.m. Ages 30-39 = 107 mL/min/1.73 sq.m. Ages 40-49 = 99 mL/min/1.73 sq.m. Ages 50-59 = 93 mL/min/1.73 sq.m. Ages 60-69 = 85 mL/min/1.73 sq.m. Ages 70+ = 75 mL/min/1.73 sq.m. Chronic Kidney Disease: Less than 60 mL/min/1.73 square meters End Stage Renal Disease: Less than 15 mL/min/1.73 square meters Performed By: #### A 1C, FES, ADIFF, VIDH, FERR, URIC, GFR, ANEU, CBC, RFP #### [address] [address] #### C3C4A, SPE #### [address] [address] GFR Non- 45 ml/min/1.73sqm Normal [facility] ([place]) Comment on above: Result Comment: GFR Population mean for , Non- Americans Ages 20-29 = 116 mL/min/1.73 sq.m. Ages 30-39 = 107 mL/min/1.73 sq.m. Ages 40-49 = 99 mL/min/1.73 sq.m. Ages 50-59 = 93 mL/min/1.73 sq.m. Ages 60-69 = 85 mL/min/1.73 sq.m. Ages 70+ = 75 mL/min/1.73 sq.m. Chronic Kidney Disease: Less than 60 mL/min/1.73 square meters End Stage Renal Disease: Less than 15 mL/min/1.73 square meters Performed By: #### A 1C, FES, ADIFF, VIDH, FERR, URIC, GFR, ANEU, CBC, RFP #### [address] [address] #### C3C4A, SPE #### [address] [address] .NEUABSon 12-29-2023 Neutrophil, Absolute 3.0 10 3/mcL Normal 2.9-6.2 [facility] ([place]) Comment on above: Performed By: #### A 1C, FES, ADIFF, VIDH, FERR, URIC, GFR, ANEU, CBC, RFP #### [address] [address] #### C3C4A, SPE #### [address] [address] CBCon 12-29-2023 Erythrocyte distribution width (RBC) [Ratio] 15.7 % High 11.5-14.5 [facility] ([place]) Comment on above: Performed By: #### A 1C, FES, ADIFF, VIDH, FERR, URIC, GFR, ANEU, CBC, RFP #### [address] [address] #### C3C4A, SPE #### [address] [address] Hematocrit (Bld) [Volume fraction] 31.6 % Low 37.0-47.0 [facility] ([place]) Comment on above: Performed By: #### A 1C, FES, ADIFF, VIDH, FERR, URIC, GFR, ANEU, CBC, RFP #### [place] [address] #### C3C4A, SPE #### [place] [address] Hgb 10.1 G/dL Low 12.0-16.0 [facility] ([place]) Comment on above: Performed By: #### A 1C, FES, ADIFF, VIDH, FERR, URIC, GFR, ANEU, CBC, RFP #### [address] [address] #### C3C4A, SPE #### [address] [address] MCH (RBC) [Entitic mass] 29.4 pg Normal 27.0-31.2 [facility] ([place]) Comment on above: Performed By: #### A 1C, FES, ADIFF, VIDH, FERR, URIC, GFR, ANEU, CBC, RFP #### [place] [address] #### C3C4A, SPE #### [place] [address] MCHC 31.9 G/dL Low 33.0-37.0 [facility] ([place]) Comment on above: Performed By: #### A 1C, FES, ADIFF, VIDH, FERR, URIC, GFR, ANEU, CBC, RFP #### [place] [address] #### C3C4A, SPE #### [place] [address] MCV (RBC) [Entitic vol] 92.1 fL Normal 80.0-94.0 [facility] ([place]) Comment on above: Performed By: #### A 1C, FES, ADIFF, VIDH, FERR, URIC, GFR, ANEU, CBC, RFP #### [place] [address] #### C3C4A, SPE #### [place] [address] Platelet 430 10 3/mcL High 130-400 [facility] ([place]) Comment on above: Performed By: #### A 1C, FES, ADIFF, VIDH, FERR, URIC, GFR, ANEU, CBC, RFP #### [place] [address] #### C3C4A, SPE #### [place] [address] Platelet mean volume (Bld) [Entitic vol] 7.4 fL Normal 7.4-10.4 [facility] ([place]) Comment on above: Performed By: #### A 1C, FES, ADIFF, VIDH, FERR, URIC, GFR, ANEU, CBC, RFP #### [place] [address] #### C3C4A, SPE #### [place] [address] RBC 3.43 10 6/mcL Low 4.20-5.40 [facility] ([place]) Comment on above: Performed By: #### A 1C, FES, ADIFF, VIDH, FERR, URIC, GFR, ANEU, CBC, RFP #### [place] [address] #### C3C4A, SPE #### [place] [address] WBC 5.7 10 3/mcL Normal 4.6-10.8 [facility] ([place]) Comment on above: Performed By: #### A 1C, FES, ADIFF, VIDH, FERR, URIC, GFR, ANEU, CBC, RFP #### [place] [address] #### C3C4A, SPE #### [place] [address] Gretchen 12-29-2023 Ferritin [Mass/Vol] 47.0 ng/mL Normal 8.0-252.0 [facility] ([place]) Comment on above: Performed By: #### A 1C, FES, ADIFF, VIDH, FERR, URIC, GFR, ANEU, CBC, RFP #### [place] [address] #### C3C4A, SPE #### [place] [address] FESon 12-29-2023 Iron [Mass/Vol] 54 ug/dL Normal 50-170 [facility] ([place]) Comment on above: Performed By: #### A 1C, FES, ADIFF, VIDH, FERR, URIC, GFR, ANEU, CBC, RFP #### [address] [address] #### C3C4A, SPE #### [address] [address] Iron Sat 17 % Normal [facility] ([place]) Comment on above: Performed By: #### A 1C, FES, ADIFF, VIDH, FERR, URIC, GFR, ANEU, CBC, RFP #### [address] [address] #### C3C4A, SPE #### [address] [address] TIBC 320 mcg/dL Normal 250-450 [facility] ([place]) Comment on above: Performed By: #### A 1C, FES, ADIFF, VIDH, FERR, URIC, GFR, ANEU, CBC, RFP #### [address] [address] #### C3C4A, SPE #### [address] [address] LABORATORYOrdered By: SYSTEM SYSTEM on 12-29-2023 Albumin BCP dye [Mass/Vol] 3.5 G/dL Normal 3.4 - 4.8 G/dL AO ADM SS Basophil, Absolute 0.1 103/mcL Normal 0.0 - 0.2 10^3/mcL AO Workflow SS Basophils/100 WBC (Bld) 1.2 % Normal 0.0 - 2.5 % AO Workflow SS Calcium [Mass/Vol] 8.8 mg/dL Normal 8.4 - 10. 2 mg/dL AO ADM SS Chloride [Moles/Vol] 103 mmol/L Normal 98 - 10 7 mmol/L AO ADM SS CO2 [Moles/Vol] 26 mmol/L Normal 23 - 31 mmol/L AO ADM SS Creatinine [Mass/Vol] 1.15 mg/dL High 0.55 - 1.02 mg/dL AO ADM SS Electrolyte Balance 10.0 mEq/L Normal 4.0 - 15 .0 mEq/L AO ADM SS Eosinophil, Absolute 0.2 103/mcL Normal 0.0 - 0 .4 10^3/mcL AO Workflow SS Eosinophils/100 WBC (Bld) 4.3 % Normal 0.0 - 7.0 % AO Workflow SS Erythrocyte distribution width (RBC) [Ratio] 15.7 % High 11.5 - 14.5 % AO Workflow SS Ferritin [Mass/Vol] 47.0 ng/mL Normal 8.0 - 252.0 ng/mL AO ADM SS GFR/1.73 sq M.predicted among blacks MDRD (S/P/Bld) [Vol rate/Area] 55 ml/min/1.73sqm Invalid Interpretation Code AO Chemistry S Comment on above: Interpretive Data: GFR Population mean for , Non- Americans Ages 20-29 = 116 mL/min/1.73 sq.m. Ages 30-39 = 107 mL/min/1.73 sq.m. Ages 40-49 = 99 mL/min/1.73 sq.m. Ages 50-59 = 93 mL/min/1.73 sq.m. Ages 60-69 = 85 mL/min/1.73 sq.m. Ages 70+ = 75 mL/min/1.73 sq.m. Chronic Kidney Disease: Less than 60 mL/min/1.73 square meters End Stage Renal Disease: Less than 15 mL/min/1.73 square meters GFR/1.73 sq M.predicted among non-blacks MDRD (S/P/Bld) [Vol rate/Area] 45 ml/min/1.73sqm Invalid Interpretation Code AO Chemistry S Comment on above: Interpretive Data: GFR Population mean for , Non- Americans Ages 20-29 = 116 mL/min/1.73 sq.m. Ages 30-39 = 107 mL/min/1.73 sq.m. Ages 40-49 = 99 mL/min/1.73 sq.m. Ages 50-59 = 93 mL/min/1.73 sq.m. Ages 60-69 = 85 mL/min/1.73 sq.m. Ages 70+ = 75 mL/min/1.73 sq.m. Chronic Kidney Disease: Less than 60 mL/min/1.73 square meters End Stage Renal Disease: Less than 15 mL/min/1.73 square meters Glucose [Mass/Vol] 159 mg/dL High 83 - 110 mg/dL AO ADM SS Hematocrit (Bld) [Volume fraction] 31.6 % Low 37.0 - 47.0 % AO Workflow SS Hemoglobin (Bld) [Mass/Vol] 10.1 G/dL Low 12.0 - 16.0 G/dL AO Workflow SS Iron [Mass/Vol] 54 ug/dL Normal 50 - 170 mcg/dL AO ADM SS Iron binding capacity [Mass/Vol] 320 mcg/dL Normal 250 - 450 mcg/dL AO ADM SS Iron Sat 17 % Invalid Interpretation Code AO ADM SS Lymphocyte, Absolute 1.8 103/mcL Normal 0.8 - 3 .9 10^3/mcL AO Workflow SS Lymphocytes/100 WBC (Bld) 32.4 % Normal 10.0 - 50.0 % AO Workflow SS MCH (RBC) [Entitic mass] 29.4 pg Normal 27.0 - 31.2 pg AO Workflow SS MCHC 31.9 G/dL Low 33.0 - 37.0 G/dL AO Workflow SS MCV (RBC) [Entitic vol] 92.1 fL Normal 80.0 - 94.0 fL AO Workflow SS Monocyte, Absolute 0.6 103/mcL Normal 0.2 - 1.0 10^3/mcL AO Workflow SS Monocytes/100 WBC (Bld) 9.7 % Normal 1.7 - 13.0 % AO Workflow SS Neutrophil, Absolute 3.0 103/mcL Normal 2.9 - 6 .2 10^3/mcL AO Workflow SS Neutrophils/100 WBC (Bld) 52.4 % Normal 37.0 - 80.0 % AO Workflow SS Parathyrin.intact [Mass/Vol] 60.7 pg/mL Normal 18.5 - 88.0 pg/mL AH ADM SS Phosphate [Mass/Vol] 4.7 mg/dL High 2.3 - 4 .1 mg/dL AO ADM SS Platelet mean volume (Bld) [Entitic vol] 7.4 fL Normal 7.4 - 10.4 fL AO Workflow SS Platelets (Bld) [#/Vol] 430 103/mcL High 130 - 400 10^3/mcL AO Workflow SS Potassium [Moles/Vol] 4.8 mmol/L Normal 3.5 - 5.1 mmol/L AO ADM SS RBC (Bld) [#/Vol] 3.43 106/mcL Low 4.20 - 5.40 10^6/mcL AO Workflow SS Sodium [Moles/Vol] 139 mmol/L Normal 136 - 145 mmol/L AO ADM SS Urea nitrogen [Mass/Vol] 41 mg/dL High 7 - 18 mg/dL AO ADM SS Urea nitrogen/Creatinine [Mass ratio] 36 ratio High 7 - 27 ratio AO ADM SS Uric Acid Lvl 5.9 mg/dL Normal 2.6 - 6.2 mg/dL AO ADM SS WBC (Bld) [#/Vol] 5.7 103/mcL Normal 4.6 - 10.8 10^3/mcL AO Workflow SS LABORATORYOrdered By: Farideh Levy on 12-29-2023 Creatinine (U) [Mass/Vol] 22.9 mg/dL Low 28.0 - 117.0 mg/dL AO ADM SS Protein (U) [Mass/Vol] mg/dL Normal 0 - 1 1 mg/dL AO ADM SS U Ratio Prot/Creat Unable to Calculate Invalid Interpretation Code AO ADM SS Comment on above: Result Comment: Unab le to calculate this test result accurately. Results used to calculate this test are outside the reportable range. PTHon 12-29-2023 PTH, Intact 60.7 pg/mL Normal 18.5-88.0 [facility] ([place]) Comment on above: Performed By: #### A 1C, FES, ADIFF, VIDH, FERR, URIC, GFR, ANEU, CBC, RFP #### [address] [address] #### C3C4A, SPE #### [place] [address] RFPon 12-29-2023 Albumin Level 3.5 G/dL Normal 3.4-4.8 [facility] ([place]) Comment on above: Performed By: #### A 1C, FES, ADIFF, VIDH, FERR, URIC, GFR, ANEU, CBC, RFP #### [address] [address] #### C3C4A, SPE #### [address] [address] BUN/Creatinine Ratio 36 ratio High 7-27 [facility] ([place]) Comment on above: Performed By: #### A 1C, FES, ADIFF, VIDH, FERR, URIC, GFR, ANEU, CBC, RFP #### [address] [address] #### C3C4A, SPE #### [address] [address] Calcium [Mass/Vol] 8.8 mg/dL Normal 8.4-10.2 [facility] ([place]) Comment on above: Performed By: #### A 1C, FES, ADIFF, VIDH, FERR, URIC, GFR, ANEU, CBC, RFP #### [address] [address] #### C3C4A, SPE #### [address] [address] Chloride [Moles/Vol] 103 mmol/L Normal 98-107 [facility] ([place]) Comment on above: Performed By: #### A 1C, FES, ADIFF, VIDH, FERR, URIC, GFR, ANEU, CBC, RFP #### [address] [address] #### C3C4A, SPE #### [address] [address] CO2 [Moles/Vol] 26 mmol/L Normal 23-31 [facility] ([place]) Comment on above: Performed By: #### A 1C, FES, ADIFF, VIDH, FERR, URIC, GFR, ANEU, CBC, RFP #### [address] [address] #### C3C4A, SPE #### [address] [address] Creatinine [Mass/Vol] 1.15 mg/dL High 0.55-1.02 [facility] ([place]) Comment on above: Performed By: #### A 1C, FES, ADIFF, VIDH, FERR, URIC, GFR, ANEU, CBC, RFP #### [address] [address] #### C3C4A, SPE #### [address] [address] Electrolyte Balance 10.0 mEq/L Normal 4.0-15.0 [facility] ([place]) Comment on above: Performed By: #### A 1C, FES, ADIFF, VIDH, FERR, URIC, GFR, ANEU, CBC, RFP #### [address] [address] #### C3C4A, SPE #### [address] [address] Glucose [Mass/Vol] 159 mg/dL High 83-110 [facility] ([place]) Comment on above: Performed By: #### A 1C, FES, ADIFF, VIDH, FERR, URIC, GFR, ANEU, CBC, RFP #### [address] [address] #### C3C4A, SPE #### [address] [address] Phosphate [Mass/Vol] 4.7 mg/dL High 2.3-4.1 [facility] ([place]) Comment on above: Performed By: #### A 1C, FES, ADIFF, VIDH, FERR, URIC, GFR, ANEU, CBC, RFP #### [address] [address] #### C3C4A, SPE #### [address] [address] Potassium [Moles/Vol] 4.8 mmol/L Normal 3.5-5.1 [facility] ([place]) Comment on above: Performed By: #### A 1C, FES, ADIFF, VIDH, FERR, URIC, GFR, ANEU, CBC, RFP #### [place] [address] #### C3C4A, SPE #### [address] [address] Sodium [Moles/Vol] 139 mmol/L Normal 136-145 [facility] ([place]) Comment on above: Performed By: #### A 1C, FES, ADIFF, VIDH, FERR, URIC, GFR, ANEU, CBC, RFP #### [address] [address] #### C3C4A, SPE #### [address] [address] Urea nitrogen [Mass/Vol] 41 mg/dL High 7-18 [facility] ([place]) Comment on above: Performed By: #### A 1C, FES, ADIFF, VIDH, FERR, URIC, GFR, ANEU, CBC, RFP #### [place] [address] #### C3C4A, SPE #### [address] [address] RPCURon 12-29-2023 U Creatinine 22.9 mg/dL Low 28.0-117.0 [facility] ([place]) Comment on above: Performed By: #### A 1C, FES, ADIFF, VIDH, FERR, URIC, GFR, ANEU, CBC, RFP #### [place] [address] #### C3C4A, SPE #### [address] [address] U Protein <6 Normal 0-11 [facility] ([place]) Comment on above: Performed By: #### A 1C, FES, ADIFF, VIDH, FERR, URIC, GFR, ANEU, CBC, RFP #### [place] [address] #### C3C4A, SPE #### [address] [address] U Ratio Prot/Creat Unable to Calculate Normal [facility] ([place]) Comment on above: Result Comment: Unab le to calculate this test result accurately. Results used to calculate this test are outside the reportable range. Performed By: #### A 1C, FES, ADIFF, VIDH, FERR, URIC, GFR, ANEU, CBC, RFP #### [place] [address] #### C3C4A, SPE #### [address] [address] URICon 12-29-2023 Uric Acid Lvl 5.9 mg/dL Normal 2.6-6.2 [facility] ([place]) Comment on above: Performed By: #### A 1C, FES, ADIFF, VIDH, FERR, URIC, GFR, ANEU, CBC, RFP #### [address] [address] #### C3C4A, SPE #### [address] [address] Orthopedic Visit Reporton Orthopedic Visit Report Normal [facility] Shoulder min 2 Viewson 12-18 Shoulder min 2 Views Normal [facility] .GFRon 12-10-2023 GFR 51 ml/min/1.73sqm Normal [facility] ([place]) Comment on above: Result Comment: GFR Population mean for , Non- Americans Ages 20-29 = 116 mL/min/1.73 sq.m. Ages 30-39 = 107 mL/min/1.73 sq.m. Ages 40-49 = 99 mL/min/1.73 sq.m. Ages 50-59 = 93 mL/min/1.73 sq.m. Ages 60-69 = 85 mL/min/1.73 sq.m. Ages 70+ = 75 mL/min/1.73 sq.m. Chronic Kidney Disease: Less than 60 mL/min/1.73 square meters End Stage Renal Disease: Less than 15 mL/min/1.73 square meters Performed By: #### A 1C, FES, ADIFF, VIDH, FERR, URIC, GFR, ANEU, CBC, RFP #### [address] [address] #### C3C4A, SPE #### [address] [address] GFR Non- 42 ml/min/1.73sqm Normal [facility] ([place]) Comment on above: Result Comment: GFR Population mean for , Non- Americans Ages 20-29 = 116 mL/min/1.73 sq.m. Ages 30-39 = 107 mL/min/1.73 sq.m. Ages 40-49 = 99 mL/min/1.73 sq.m. Ages 50-59 = 93 mL/min/1.73 sq.m. Ages 60-69 = 85 mL/min/1.73 sq.m. Ages 70+ = 75 mL/min/1.73 sq.m. Chronic Kidney Disease: Less than 60 mL/min/1.73 square meters End Stage Renal Disease: Less than 15 mL/min/1.73 square meters Performed By: #### A 1C, FES, ADIFF, VIDH, FERR, URIC, GFR, ANEU, CBC, RFP #### [place] [address] #### C3C4A, SPE #### [place] [address] .Manual Diffon 12-10-2023 Bands 7.0 % High 0.0-5.0 [facility] ([place]) Comment on above: Performed By: #### A 1C, FES, ADIFF, VIDH, FERR, URIC, GFR, ANEU, CBC, RFP #### [place] [address] #### C3C4A, SPE #### [place] [address] Basophil %, Manual 0.0 % Normal 0.0-2.5 [facility] ([place]) Comment on above: Performed By: #### A 1C, FES, ADIFF, VIDH, FERR, URIC, GFR, ANEU, CBC, RFP #### [place] [address] #### C3C4A, SPE #### [place] [address] Basophil, Abs Manual 0.0 10 3/mcL Normal 0.0-0.2 [facility] ([place]) Comment on above: Performed By: #### A 1C, FES, ADIFF, VIDH, FERR, URIC, GFR, ANEU, CBC, RFP #### [place] [address] #### C3C4A, SPE #### [place] [address] Eosinophil %, Manual 0.0 % Normal 0.0-7.0 [facility] ([place]) Comment on above: Performed By: #### A 1C, FES, ADIFF, VIDH, FERR, URIC, GFR, ANEU, CBC, RFP #### [address] [address] #### C3C4A, SPE #### [address] [address] Eosinophil, Abs Manual 0.0 10 3/mcL Normal 0.0-0.4 [facility] ([place]) Comment on above: Performed By: #### A 1C, FES, ADIFF, VIDH, FERR, URIC, GFR, ANEU, CBC, RFP #### [address] [address] #### C3C4A, SPE #### [address] [address] Lymphocyte %, Manual 19.0 % Normal 10.0-50.0 [facility] ([place] Comment on above: Performed By: #### A 1C, FES, ADIFF, VIDH, FERR, URIC, GFR, ANEU, CBC, RFP #### [address] [address] #### C3C4A, SPE #### [address] [address] Lymphocyte, Abs Manual 3.3 10 3/mcL Normal 0.8-3.9 [facility] ([place]) Comment on above: Performed By: #### A 1C, FES, ADIFF, VIDH, FERR, URIC, GFR, ANEU, CBC, RFP #### [address] [address] #### C3C4A, SPE #### [address] [address] Monocyte %, Manual 4.0 % Normal 1.7-13.0 [facility] ([place]) Comment on above: Performed By: #### A 1C, FES, ADIFF, VIDH, FERR, URIC, GFR, ANEU, CBC, RFP #### [address] [address] #### C3C4A, SPE #### [place] [id number] Monocyte, Abs Manual 0.7 10 3/mcL Normal 0.2-1.0 [facility] ([place]) Comment on above: Performed By: #### A 1C, FES, ADIFF, VIDH, FERR, URIC, GFR, ANEU, CBC, RFP #### [place] [address] #### C3C4A, SPE #### [place] [address] Neutrophil %, Manual 70.0 % Normal 37.0-80.0 [facility] ([place] Comment on above: Performed By: #### A 1C, FES, ADIFF, VIDH, FERR, URIC, GFR, ANEU, CBC, RFP #### [place] [address] #### C3C4A, SPE #### [place] [address] Neutrophil, Abs Manual 13.2 10 3/mcL High 2.9-6.2 [facility] ([place] Comment on above: Performed By: #### A 1C, FES, ADIFF, VIDH, FERR, URIC, GFR, ANEU, CBC, RFP #### [place] [address] #### C3C4A, SPE #### [place] [address] Nucleated RBC 0.0 /100 WBC Normal [facility] ([place] Comment on above: Performed By: #### A 1C, FES, ADIFF, VIDH, FERR, URIC, GFR, ANEU, CBC, RFP #### [place] [address] #### C3C4A, SPE #### [place] [address] .Morphon 12-10-2023 Anisocytosis Ql (Bld) 1+ Normal [facility] ([place]) Comment on above: Performed By: #### A 1C, FES, ADIFF, VIDH, FERR, URIC, GFR, ANEU, CBC, RFP #### [place] [address] #### C3C4A, SPE #### [place] [address] Ovalocytes 1+ Normal [facility] ([place] Comment on above: Performed By: #### A 1C, FES, ADIFF, VIDH, FERR, URIC, GFR, ANEU, CBC, RFP #### [place] [address] #### C3C4A, SPE #### [place] [address] Platelet Estimate Increased Normal [facility] ([place] Comment on above: Performed By: #### A 1C, FES, ADIFF, VIDH, FERR, URIC, GFR, ANEU, CBC, RFP #### [place] [address] #### C3C4A, SPE #### [place] [address] B12on 12-10-2023 Cobalamin (Vitamin B12) [Mass/Vol] 1231 pg/mL High 211-911 [facility] ([place] Comment on above: Performed By: #### A 1C, FES, ADIFF, VIDH, FERR, URIC, GFR, ANEU, CBC, RFP #### [place] [address] #### C3C4A, SPE #### [place] [address] BMPon 12-10-2023 Electrolyte Balance 15.0 mEq/L Normal 4.0-15.0 [facility] ([place] Comment on above: Performed By: #### A 1C, FES, ADIFF, VIDH, FERR, URIC, GFR, ANEU, CBC, RFP #### [place] [address] #### C3C4A, SPE #### [place] [address] Potassium [Moles/Vol] 5.0 mmol/L Normal 3.5-5.1 [facility] ([place]) Comment on above: Performed By: #### A 1C, FES, ADIFF, VIDH, FERR, URIC, GFR, ANEU, CBC, RFP #### [address] [address] #### C3C4A, SPE #### [address] [address] Sodium [Moles/Vol] 136 mmol/L Normal 136-145 [facility] ([place] Comment on above: Performed By: #### A 1C, FES, ADIFF, VIDH, FERR, URIC, GFR, ANEU, CBC, RFP #### [place] [address] #### C3C4A, SPE #### [address] [address] BUN/Creatinine Ratio 48 ratio High 7-27 [facility] ([place] Comment on above: Performed By: #### A 1C, FES, ADIFF, VIDH, FERR, URIC, GFR, ANEU, CBC, RFP #### [address] [address] #### C3C4A, SPE #### [address] [address] Calcium [Mass/Vol] 9.8 mg/dL Normal 8.4-10.2 [facility] ([place] Comment on above: Performed By: #### A 1C, FES, ADIFF, VIDH, FERR, URIC, GFR, ANEU, CBC, RFP #### [address] [address] #### C3C4A, SPE #### [address] [address] Chloride [Moles/Vol] 98 mmol/L Normal 98-107 [facility] ([place] Comment on above: Performed By: #### A 1C, FES, ADIFF, VIDH, FERR, URIC, GFR, ANEU, CBC, RFP #### [place] [address] #### C3C4A, SPE #### [address] [address] CO2 [Moles/Vol] 23 mmol/L Normal 23-31 [facility] ([place] Comment on above: Performed By: #### A 1C, FES, ADIFF, VIDH, FERR, URIC, GFR, ANEU, CBC, RFP #### [address] [address] #### C3C4A, SPE #### [address] [address] Creatinine [Mass/Vol] 1.22 mg/dL High 0.55-1.02 [facility] ([place]) Comment on above: Performed By: #### A 1C, FES, ADIFF, VIDH, FERR, URIC, GFR, ANEU, CBC, RFP #### [address] [address] #### C3C4A, SPE #### [address] [address] Glucose [Mass/Vol] 140 mg/dL High 83-110 [facility] ([place]) Comment on above: Performed By: #### A 1C, FES, ADIFF, VIDH, FERR, URIC, GFR, ANEU, CBC, RFP #### [address] [address] #### C3C4A, SPE #### [address] [address] Urea nitrogen [Mass/Vol] 59 mg/dL High 7-18 [facility] ([place]) Comment on above: Performed By: #### A 1C, FES, ADIFF, VIDH, FERR, URIC, GFR, ANEU, CBC, RFP #### [address] [address] #### C3C4A, SPE #### [address] [address] CBCon 12-10-2023 Erythrocyte distribution width (RBC) [Ratio] 15.9 % High 11.5-14.5 [facility] ([place]) Comment on above: Performed By: #### A 1C, FES, ADIFF, VIDH, FERR, URIC, GFR, ANEU, CBC, RFP #### [place] [address] #### C3C4A, SPE #### [place] [address] Hematocrit (Bld) [Volume fraction] 31.0 % Low 37.0-47.0 [facility] ([place] Comment on above: Performed By: #### A 1C, FES, ADIFF, VIDH, FERR, URIC, GFR, ANEU, CBC, RFP #### [place] [address] #### C3C4A, SPE #### [place] [address] Hgb 10.2 G/dL Low 12.0-16.0 [facility] ([place]) Comment on above: Performed By: #### A 1C, FES, ADIFF, VIDH, FERR, URIC, GFR, ANEU, CBC, RFP #### [place] [address] #### C3C4A, SPE #### [place] [address] MCH (RBC) [Entitic mass] 29.6 pg Normal 27.0-31.2 [facility] ([place] Comment on above: Performed By: #### A 1C, FES, ADIFF, VIDH, FERR, URIC, GFR, ANEU, CBC, RFP #### [place] [address] #### C3C4A, SPE #### [place] [address] MCHC 32.7 G/dL Low 33.0-37.0 [facility] ([place] Comment on above: Performed By: #### A 1C, FES, ADIFF, VIDH, FERR, URIC, GFR, ANEU, CBC, RFP #### [place] [address] #### C3C4A, SPE #### [facility] [address] [place], [place] [address] MCV (RBC) [Entitic vol] 90.4 fL Normal 80.0-94.0 [facility] ([place]) Comment on above: Performed By: #### A 1C, FES, ADIFF, VIDH, FERR, URIC, GFR, ANEU, CBC, RFP #### [address] [address] #### C3C4A, SPE #### [place] [address] Platelet 566 10 3/mcL High 130-400 [facility] ([place]) Comment on above: Performed By: #### A 1C, FES, ADIFF, VIDH, FERR, URIC, GFR, ANEU, CBC, RFP #### [place] [address] #### C3C4A, SPE #### [place] [address] Platelet mean volume (Bld) [Entitic vol] 7.0 fL Low 7.4-10.4 [facility] ([place]) Comment on above: Performed By: #### A 1C, FES, ADIFF, VIDH, FERR, URIC, GFR, ANEU, CBC, RFP #### [place] [address] #### C3C4A, SPE #### [place] [address] RBC 3.43 10 6/mcL Low 4.20-5.40 [facility] ([place]) Comment on above: Performed By: #### A 1C, FES, ADIFF, VIDH, FERR, URIC, GFR, ANEU, CBC, RFP #### [place] [address] #### C3C4A, SPE #### [place] [address] WBC 17.2 10 3/mcL High 4.6-10.8 [facility] ([place]) Comment on above: Performed By: #### A 1C, FES, ADIFF, VIDH, FERR, URIC, GFR, ANEU, CBC, RFP #### [address] [address] #### C3C4A, SPE #### [place] [address] FEon 12-10-2023 Iron [Mass/Vol] 58 ug/dL Normal 50-170 [facility] ([place]) Comment on above: Performed By: #### M YCO #### [place] [id number] Gretchen 12-10-2023 Ferritin [Mass/Vol] 106.0 ng/mL Normal 8.0-252.0 [facility] ([place]) Comment on above: Performed By: #### M YCO #### [place] [address] FOLon 12-10-2023 Folate 16.00 ng/mL Normal 5.38-24.00 [facility] ([place]) Comment on above: Performed By: #### A 1C, FES, ADIFF, VIDH, FERR, URIC, GFR, ANEU, CBC, RFP #### [address] [address] #### C3C4A, SPE #### [place] [address] LABORATORYOrdered By: SYSTEM SYSTEM on 12-10-2023 Anisocytosis Ql (Bld) 1+ *NA* (12/10/23 10:57 AM) Invalid Interpretation Code AO Workflow SS Bands 7.0 % High 0.0 - 5.0 % AO Workflow SS Basophil %, Manual 0.0 % Normal 0.0 - 2.5 % AO Workflow SS Basophil, Abs Manual 0.0 103/mcL Normal 0.0 - 0 .2 10^3/mcL AO Workflow SS Calcium [Mass/Vol] 9.8 mg/dL Normal 8.4 - 10. 2 mg/dL AO ADM SS Chloride [Moles/Vol] 98 mmol/L Normal 98 - 10 7 mmol/L AO ADM SS CO2 [Moles/Vol] 23 mmol/L Normal 23 - 31 mmol/L AO ADM SS Cobalamin (Vitamin B12) [Mass/Vol] 1231 pg/mL High 211 - 911 pg/mL AH ADM SS Creatinine [Mass/Vol] 1.22 mg/dL High 0.55 - 1.02 mg/dL AO ADM SS Eosinophil %, Manual 0.0 % Normal 0.0 - 7 .0 % AO Workflow SS Eosinophils (Bld) [#/Vol] 0.0 103/mcL Normal 0.0 - 0.4 10^3/mcL AO Workflow SS Erythrocyte distribution width (RBC) [Ratio] 15.9 % High 11.5 - 14.5 % AO Workflow SS Ferritin [Mass/Vol] 106.0 ng/mL Normal 8.0 - 252.0 ng/mL AO ADM SS Folate [Mass/Vol] 16.00 ng/mL Normal 5.38 - 24.00 ng/mL AH ADM SS GFR/1.73 sq M.predicted among blacks MDRD (S/P/Bld) [Vol rate/Area] 51 ml/min/1.73sqm Invalid Interpretation Code AO Chemistry S Comment on above: Interpretive Data: GFR Population mean for , Non- Americans Ages 20-29 = 116 mL/min/1.73 sq.m. Ages 30-39 = 107 mL/min/1.73 sq.m. Ages 40-49 = 99 mL/min/1.73 sq.m. Ages 50-59 = 93 mL/min/1.73 sq.m. Ages 60-69 = 85 mL/min/1.73 sq.m. Ages 70+ = 75 mL/min/1.73 sq.m. Chronic Kidney Disease: Less than 60 mL/min/1.73 square meters End Stage Renal Disease: Less than 15 mL/min/1.73 square meters GFR/1.73 sq M.predicted among non-blacks MDRD (S/P/Bld) [Vol rate/Area] 42 ml/min/1.73sqm Invalid Interpretation Code AO Chemistry S Comment on above: Interpretive Data: GFR Population mean for , Non- Americans Ages 20-29 = 116 mL/min/1.73 sq.m. Ages 30-39 = 107 mL/min/1.73 sq.m. Ages 40-49 = 99 mL/min/1.73 sq.m. Ages 50-59 = 93 mL/min/1.73 sq.m. Ages 60-69 = 85 mL/min/1.73 sq.m. Ages 70+ = 75 mL/min/1.73 sq.m. Chronic Kidney Disease: Less than 60 mL/min/1.73 square meters End Stage Renal Disease: Less than 15 mL/min/1.73 square meters Glucose [Mass/Vol] 140 mg/dL High 83 - 110 mg/dL AO ADM SS Hematocrit (Bld) [Volume fraction] 31.0 % Low 37.0 - 47.0 % AO Workflow SS Hemoglobin (Bld) [Mass/Vol] 10.2 G/dL Low 12.0 - 16.0 G/dL AO Workflow SS Iron [Mass/Vol] 58 ug/dL Normal 50 - 170 mcg/dL AO ADM SS Lymphocyte %, Manual 19.0 % Normal 10.0 - 50.0 % AO Workflow SS Lymphocyte, Abs Manual 3.3 103/mcL Normal 0.8 - 3.9 10^3/mcL AO Workflow SS MCH (RBC) [Entitic mass] 29.6 pg Normal 27.0 - 31.2 pg AO Workflow SS MCHC 32.7 G/dL Low 33.0 - 37.0 G/dL AO Workflow SS MCV (RBC) [Entitic vol] 90.4 fL Normal 80.0 - 94.0 fL AO Workflow SS Monocyte %, Manual 4.0 % Normal 1.7 - 13. 0 % AO Workflow SS Monocyte, Abs Manual 0.7 103/mcL Normal 0.2 - 1 .0 10^3/mcL AO Workflow SS Neutrophil %, Manual 70.0 % Normal 37.0 - 80.0 % AO Workflow SS Neutrophil, Abs Manual 13.2 103/mcL High 2.9 - 6.2 10^3/mcL AO Workflow SS Nucleated RBC 0.0 /100 WBC Invalid Interpretation Code AO Workflow SS Ovalocytes LM Ql (Bld) 1+ *NA* (12/10/23 10:57 AM) Invalid Interpretation Code AO Workflow SS Platelet Estimate Increased *NA* (12/10/23 10:57 AM) Invalid Interpretation Code AO Workflow SS Platelet mean volume (Bld) [Entitic vol] 7.0 fL Low 7.4 - 10.4 fL AO Workflow SS Platelets (Bld) [#/Vol] 566 103/mcL High 130 - 400 10^3/mcL AO Workflow SS Potassium [Moles/Vol] 5.0 mmol/L Normal 3.5 - 5.1 mmol/L AO ADM SS RBC (Bld) [#/Vol] 3.43 106/mcL Low 4.20 - 5.40 10^6/mcL AO Workflow SS Sodium [Moles/Vol] 136 mmol/L Normal 136 - 145 mmol/L AO ADM SS Urea nitrogen [Mass/Vol] 59 mg/dL High 7 - 18 mg/dL AO ADM SS Urea nitrogen/Creatinine [Mass ratio] 48 ratio High 7 - 27 ratio AO ADM SS WBC (Bld) [#/Vol] 17.2 103/mcL High 4.6 - 10.8 10^3/mcL AO Workflow SS LABORATORYOrdered By: Rose Childs on 12-10-2023 Electrolyte Balance 15.0 mEq/L Normal 4.0 - 15 .0 mEq/L AO Chemistry S .GFRon 12-05-2023 GFR 58 ml/min/1.73sqm Normal [facility] ([place]) Comment on above: Result Comment: GFR Population mean for , Non- Americans Ages 20-29 = 116 mL/min/1.73 sq.m. Ages 30-39 = 107 mL/min/1.73 sq.m. Ages 40-49 = 99 mL/min/1.73 sq.m. Ages 50-59 = 93 mL/min/1.73 sq.m. Ages 60-69 = 85 mL/min/1.73 sq.m. Ages 70+ = 75 mL/min/1.73 sq.m. Chronic Kidney Disease: Less than 60 mL/min/1.73 square meters End Stage Renal Disease: Less than 15 mL/min/1.73 square meters Performed By: #### A 1C, FES, ADIFF, VIDH, FERR, URIC, GFR, ANEU, CBC, RFP #### [address] [address] #### C3C4A, SPE #### [address] [address] GFR Non- 48 ml/min/1.73sqm Normal [facility] ([place]) Comment on above: Result Comment: GFR Population mean for , Non- Americans Ages 20-29 = 116 mL/min/1.73 sq.m. Ages 30-39 = 107 mL/min/1.73 sq.m. Ages 40-49 = 99 mL/min/1.73 sq.m. Ages 50-59 = 93 mL/min/1.73 sq.m. Ages 60-69 = 85 mL/min/1.73 sq.m. Ages 70+ = 75 mL/min/1.73 sq.m. Chronic Kidney Disease: Less than 60 mL/min/1.73 square meters End Stage Renal Disease: Less than 15 mL/min/1.73 square meters Performed By: #### A 1C, FES, ADIFF, VIDH, FERR, URIC, GFR, ANEU, CBC, RFP #### [address] [address] #### C3C4A, SPE #### [place] [address] .Manual Diffon 12-05-2023 Bands 2.0 % Normal 0.0-5.0 [facility] ([place]) Comment on above: Performed By: #### A 1C, FES, ADIFF, VIDH, FERR, URIC, GFR, ANEU, CBC, RFP #### [place] [address] #### C3C4A, SPE #### [place] [address] Basophil %, Manual 0.0 % Normal 0.0-2.5 [facility] ([place]) Comment on above: Performed By: #### A 1C, FES, ADIFF, VIDH, FERR, URIC, GFR, ANEU, CBC, RFP #### [place] [address] #### C3C4A, SPE #### [place] [address] Basophil, Abs Manual 0.0 10 3/mcL Normal 0.0-0.2 [facility] ([place]) Comment on above: Performed By: #### A 1C, FES, ADIFF, VIDH, FERR, URIC, GFR, ANEU, CBC, RFP #### [place] [address] #### C3C4A, SPE #### [place] [id number] Eosinophil %, Manual 0.0 % Normal 0.0-7.0 [facility] ([place]) Comment on above: Performed By: #### A 1C, FES, ADIFF, VIDH, FERR, URIC, GFR, ANEU, CBC, RFP #### [address] [address] #### C3C4A, SPE #### [address] [address] Eosinophil, Abs Manual 0.0 10 3/mcL Normal 0.0-0.4 [facility] ([place]) Comment on above: Performed By: #### A 1C, FES, ADIFF, VIDH, FERR, URIC, GFR, ANEU, CBC, RFP #### [place] [address] #### C3C4A, SPE #### [place] [address] Lymphocyte %, Manual 14.0 % Normal 10.0-50.0 [facility] ([place]) Comment on above: Performed By: #### A 1C, FES, ADIFF, VIDH, FERR, URIC, GFR, ANEU, CBC, RFP #### [place] [address] #### C3C4A, SPE #### [address] [address] Lymphocyte, Abs Manual 1.2 10 3/mcL Normal 0.8-3.9 [facility] ([place]) Comment on above: Performed By: #### A 1C, FES, ADIFF, VIDH, FERR, URIC, GFR, ANEU, CBC, RFP #### [address] [address] #### C3C4A, SPE #### [place] [address] Metamyelocyte 2.0 % Normal [facility] ([place]) Comment on above: Performed By: #### A 1C, FES, ADIFF, VIDH, FERR, URIC, GFR, ANEU, CBC, RFP #### [place] [id number] #### C3C4A, SPE #### [address] [address] Monocyte %, Manual 10.0 % Normal 1.7-13.0 [facility] ([place]) Comment on above: Performed By: #### A 1C, FES, ADIFF, VIDH, FERR, URIC, GFR, ANEU, CBC, RFP #### [address] [address] #### C3C4A, SPE #### [address] [address] Monocyte, Abs Manual 0.8 10 3/mcL Normal 0.2-1.0 [facility] ([place]) Comment on above: Performed By: #### A 1C, FES, ADIFF, VIDH, FERR, URIC, GFR, ANEU, CBC, RFP #### [place] [address] #### C3C4A, SPE #### [address] [address] Myelocyte 3.0 % Normal [facility] ([place]) Comment on above: Performed By: #### A 1C, FES, ADIFF, VIDH, FERR, URIC, GFR, ANEU, CBC, RFP #### [place] [address] #### C3C4A, SPE #### [address] [address] Neutrophil %, Manual 69.0 % Normal 37.0-80.0 [facility] ([place]) Comment on above: Performed By: #### A 1C, FES, ADIFF, VIDH, FERR, URIC, GFR, ANEU, CBC, RFP #### [place] [address] #### C3C4A, SPE #### [address] [address] Neutrophil, Abs Manual 6.0 10 3/mcL Normal 2.9-6.2 [facility] ([place]) Comment on above: Performed By: #### A 1C, FES, ADIFF, VIDH, FERR, URIC, GFR, ANEU, CBC, RFP #### [place] [address] #### C3C4A, SPE #### [place] [address] Nucleated RBC 0.0 /100 WBC Normal [facility] ([place]) Comment on above: Performed By: #### A 1C, FES, ADIFF, VIDH, FERR, URIC, GFR, ANEU, CBC, RFP #### [place] [address] #### C3C4A, SPE #### [place] [address] .Morphon 12-05-2023 Platelet Estimate Normal Normal [facility] ([place]) Comment on above: Performed By: #### A 1C, FES, ADIFF, VIDH, FERR, URIC, GFR, ANEU, CBC, RFP #### [place] [address] #### C3C4A, SPE #### [place] [address] Toxic Gran 1+ Normal [facility] ([place]) Comment on above: Performed By: #### A 1C, FES, ADIFF, VIDH, FERR, URIC, GFR, ANEU, CBC, RFP #### [place] [address] #### C3C4A, SPE #### [address] 12-05-2023 BUN/Creatinine Ratio 27 ratio Normal 7-27 [facility] ([place]) Comment on above: Performed By: #### A 1C, FES, ADIFF, VIDH, FERR, URIC, GFR, ANEU, CBC, RFP #### [place] [address] #### C3C4A, SPE #### [place] [address] Calcium [Mass/Vol] 9.3 mg/dL Normal 8.4-10.2 [facility] ([place]) Comment on above: Performed By: #### A 1C, FES, ADIFF, VIDH, FERR, URIC, GFR, ANEU, CBC, RFP #### [address] [address] #### C3C4A, SPE #### [address] [address] Chloride [Moles/Vol] 104 mmol/L Normal 98-107 [facility] ([place]) Comment on above: Performed By: #### A 1C, FES, ADIFF, VIDH, FERR, URIC, GFR, ANEU, CBC, RFP #### [address] [address] #### C3C4A, SPE #### [address] [address] CO2 [Moles/Vol] 24 mmol/L Normal 23-31 [facility] ([place]) Comment on above: Performed By: #### A 1C, FES, ADIFF, VIDH, FERR, URIC, GFR, ANEU, CBC, RFP #### [address] [address] #### C3C4A, SPE #### [address] [address] Creatinine [Mass/Vol] 1.10 mg/dL High 0.55-1.02 [facility] ([place]) Comment on above: Performed By: #### A 1C, FES, ADIFF, VIDH, FERR, URIC, GFR, ANEU, CBC, RFP #### [place] [address] #### C3C4A, SPE #### [address] [address] Electrolyte Balance 14.0 mEq/L Normal 4.0-15.0 [facility] ([place]) Comment on above: Performed By: #### A 1C, FES, ADIFF, VIDH, FERR, URIC, GFR, ANEU, CBC, RFP #### [address] [address] #### C3C4A, SPE #### [place] [id number] Glucose [Mass/Vol] 333 mg/dL High 83-110 [facility] ([place]) Comment on above: Performed By: #### A 1C, FES, ADIFF, VIDH, FERR, URIC, GFR, ANEU, CBC, RFP #### [address] [address] #### C3C4A, SPE #### [address] [address] Potassium [Moles/Vol] 5.0 mmol/L Normal 3.5-5.1 [facility] ([place]) Comment on above: Performed By: #### A 1C, FES, ADIFF, VIDH, FERR, URIC, GFR, ANEU, CBC, RFP #### [address] [address] #### C3C4A, SPE #### [address] [address] Sodium [Moles/Vol] 142 mmol/L Normal 136-145 [facility] ([place]) Comment on above: Performed By: #### A 1C, FES, ADIFF, VIDH, FERR, URIC, GFR, ANEU, CBC, RFP #### [address] [address] #### C3C4A, SPE #### [address] [address] Urea nitrogen [Mass/Vol] 30 mg/dL High 7-18 [facility] ([place]) Comment on above: Performed By: #### A 1C, FES, ADIFF, VIDH, FERR, URIC, GFR, ANEU, CBC, RFP #### [address] [address] #### C3C4A, SPE #### [address] [address] CBCon 12-05-2023 Erythrocyte distribution width (RBC) [Ratio] 16.0 % High 11.5-14.5 [facility] ([place]) Comment on above: Performed By: #### A 1C, FES, ADIFF, VIDH, FERR, URIC, GFR, ANEU, CBC, RFP #### [place] [address] #### C3C4A, SPE #### [place] [address] Hematocrit (Bld) [Volume fraction] 29.4 % Low 37.0-47.0 [facility] ([place]) Comment on above: Performed By: #### A 1C, FES, ADIFF, VIDH, FERR, URIC, GFR, ANEU, CBC, RFP #### [place] [address] #### C3C4A, SPE #### [place] [address] Hgb 9.8 G/dL Low 12.0-16.0 [facility] ([place]) Comment on above: Performed By: #### A 1C, FES, ADIFF, VIDH, FERR, URIC, GFR, ANEU, CBC, RFP #### [place] [address] #### C3C4A, SPE #### [place] [address] MCH (RBC) [Entitic mass] 29.6 pg Normal 27.0-31.2 [facility] ([place]) Comment on above: Performed By: #### A 1C, FES, ADIFF, VIDH, FERR, URIC, GFR, ANEU, CBC, RFP #### [place] [address] #### C3C4A, SPE #### [place] [address] MCHC 33.4 G/dL Normal 33.0-37.0 [facility] ([place]) Comment on above: Performed By: #### A 1C, FES, ADIFF, VIDH, FERR, URIC, GFR, ANEU, CBC, RFP #### [place] [address] #### C3C4A, SPE #### [place] [address] MCV (RBC) [Entitic vol] 88.6 fL Normal 80.0-94.0 [facility] ([place]) Comment on above: Performed By: #### A 1C, FES, ADIFF, VIDH, FERR, URIC, GFR, ANEU, CBC, RFP #### [address] [address] #### C3C4A, SPE #### [address] [address] Platelet 327 10 3/mcL Normal 130-400 [facility] ([place]) Comment on above: Performed By: #### A 1C, FES, ADIFF, VIDH, FERR, URIC, GFR, ANEU, CBC, RFP #### [place] [address] #### C3C4A, SPE #### [address] [address] Platelet mean volume (Bld) [Entitic vol] 7.5 fL Normal 7.4-10.4 [facility] ([place]) Comment on above: Performed By: #### A 1C, FES, ADIFF, VIDH, FERR, URIC, GFR, ANEU, CBC, RFP #### [place] [address] #### C3C4A, SPE #### [address] [address] RBC 3.31 10 6/mcL Low 4.20-5.40 [facility] ([place]) Comment on above: Performed By: #### A 1C, FES, ADIFF, VIDH, FERR, URIC, GFR, ANEU, CBC, RFP #### [address] [address] #### C3C4A, SPE #### [address] [address] WBC 8.5 10 3/mcL Normal 4.6-10.8 [facility] ([place] Comment on above: Performed By: #### A 1C, FES, ADIFF, VIDH, FERR, URIC, GFR, ANEU, CBC, RFP #### [place] [address] #### C3C4A, SPE #### [place] [address] LABORATORYOrdered By: Rose mtz on 12-05-2023 Hemoglobin.gastrointes tinal Ql (Stl) Negative (12/05/23 10:46 AM) Normal Negative AO Rapid Testing SS LABORATORYOrdered By: SYSTEM SYSTEM on 12-05-2023 Bands 2.0 % Normal 0.0 - 5.0 % AO Workflow SS Basophil %, Manual 0.0 % Normal 0.0 - 2.5 % AO Workflow SS Basophil, Abs Manual 0.0 103/mcL Normal 0.0 - 0 .2 10^3/mcL AO Workflow SS Calcium [Mass/Vol] 9.3 mg/dL Normal 8.4 - 10. 2 mg/dL AO ADM SS Chloride [Moles/Vol] 104 mmol/L Normal 98 - 10 7 mmol/L AO ADM SS CO2 [Moles/Vol] 24 mmol/L Normal 23 - 31 mmol/L AO ADM SS Creatinine [Mass/Vol] 1.10 mg/dL High 0.55 - 1.02 mg/dL AO ADM SS Electrolyte Balance 14.0 mEq/L Normal 4.0 - 15 .0 mEq/L AO ADM SS Eosinophil %, Manual 0.0 % Normal 0.0 - 7 .0 % AO Workflow SS Eosinophils (Bld) [#/Vol] 0.0 103/mcL Normal 0.0 - 0.4 10^3/mcL AO Workflow SS Erythrocyte distribution width (RBC) [Ratio] 16.0 % High 11.5 - 14.5 % AO Workflow SS GFR/1.73 sq M.predicted among blacks MDRD (S/P/Bld) [Vol rate/Area] 58 ml/min/1.73sqm Invalid Interpretation Code AO Chemistry S Comment on above: Interpretive Data: GFR Population mean for , Non- Americans Ages 20-29 = 116 mL/min/1.73 sq.m. Ages 30-39 = 107 mL/min/1.73 sq.m. Ages 40-49 = 99 mL/min/1.73 sq.m. Ages 50-59 = 93 mL/min/1.73 sq.m. Ages 60-69 = 85 mL/min/1.73 sq.m. Ages 70+ = 75 mL/min/1.73 sq.m. Chronic Kidney Disease: Less than 60 mL/min/1.73 square meters End Stage Renal Disease: Less than 15 mL/min/1.73 square meters GFR/1.73 sq M.predicted among non-blacks MDRD (S/P/Bld) [Vol rate/Area] 48 ml/min/1.73sqm Invalid Interpretation Code AO Chemistry S Comment on above: Interpretive Data: GFR Population mean for , Non- Americans Ages 20-29 = 116 mL/min/1.73 sq.m. Ages 30-39 = 107 mL/min/1.73 sq.m. Ages 40-49 = 99 mL/min/1.73 sq.m. Ages 50-59 = 93 mL/min/1.73 sq.m. Ages 60-69 = 85 mL/min/1.73 sq.m. Ages 70+ = 75 mL/min/1.73 sq.m. Chronic Kidney Disease: Less than 60 mL/min/1.73 square meters End Stage Renal Disease: Less than 15 mL/min/1.73 square meters Glucose [Mass/Vol] 333 mg/dL High 83 - 110 mg/dL AO ADM SS Hematocrit (Bld) [Volume fraction] 29.4 % Low 37.0 - 47.0 % AO Workflow SS Hemoglobin (Bld) [Mass/Vol] 9.8 G/dL Low 12.0 - 16.0 G/dL AO Workflow SS Lymphocyte %, Manual 14.0 % Normal 10.0 - 50.0 % AO Workflow SS Lymphocyte, Abs Manual 1.2 103/mcL Normal 0.8 - 3.9 10^3/mcL AO Workflow SS Magnesium [Mass/Vol] 2.1 mg/dL Normal 1.8 - 2 .4 mg/dL AO ADM SS MCH (RBC) [Entitic mass] 29.6 pg Normal 27.0 - 31.2 pg AO Workflow SS MCHC 33.4 G/dL Normal 33.0 - 37.0 G/dL AO Workflow SS MCV (RBC) [Entitic vol] 88.6 fL Normal 80.0 - 94.0 fL AO Workflow SS Metamyelocytes/100 WBC (Bld) 2.0 % Invalid Interpretation Code AO Workflow SS Monocyte %, Manual 10.0 % Normal 1.7 - 13. 0 % AO Workflow SS Monocyte, Abs Manual 0.8 103/mcL Normal 0.2 - 1 .0 10^3/mcL AO Workflow SS Myelocyte 3.0 % Invalid Interpretation Code AO Workflow SS Neutrophil %, Manual 69.0 % Normal 37.0 - 80.0 % AO Workflow SS Neutrophil, Abs Manual 6.0 103/mcL Normal 2.9 - 6.2 10^3/mcL AO Workflow SS Nucleated RBC 0.0 /100 WBC Invalid Interpretation Code AO Workflow SS Platelet Estimate Normal *NA* (12/05/23 5:33 AM) Invalid Interpretation Code AO Workflow SS Platelet mean volume (Bld) [Entitic vol] 7.5 fL Normal 7.4 - 10.4 fL AO Workflow SS Platelets (Bld) [#/Vol] 327 103/mcL Normal 130 - 400 10^3/mcL AO Workflow SS Potassium [Moles/Vol] 5.0 mmol/L Normal 3.5 - 5.1 mmol/L AO ADM SS RBC (Bld) [#/Vol] 3.31 106/mcL Low 4.20 - 5.40 10^6/mcL AO Workflow SS Sodium [Moles/Vol] 142 mmol/L Normal 136 - 145 mmol/L AO ADM SS Toxic Gran 1+ *NA* (12/05/23 5:33 AM) Invalid Interpretation Code AO Workflow SS Urea nitrogen [Mass/Vol] 30 mg/dL High 7 - 18 mg/dL AO ADM SS Urea nitrogen/Creatinine [Mass ratio] 27 ratio Normal 7 - 27 ratio AO ADM SS WBC (Bld) [#/Vol] 8.5 103/mcL Normal 4.6 - 10.8 10^3/mcL AO Workflow SS MGon 12-05-2023 Magnesium [Mass/Vol] 2.1 mg/dL Normal 1.8-2.4 [facility] ([place] Comment on above: Performed By: #### A 1C, FES, ADIFF, VIDH, FERR, URIC, GFR, ANEU, CBC, RFP #### [place] [id number] [place], [place] [address] #### C3C4A, SPE #### [address] [address] MYCOon 12-05-2023 Mycoplasma IgG Positive Normal [facility] ([place]) Comment on above: Result Comment: INTE RPRETATION OF MYCOPLASMA IgG BY EIA: Negative: No detectable M. pneumoniae IgG antibody. Positive: Mycoplasma pneumoniae IgG antibody Detected. Equivocal: Equivocal for IgG antibodies to Mycoplasma pneumoniae. Suggest repeat testing in 10-14 days. Performed By: #### M YCO #### [address] [address] OCC (LAB)on 12-05-2023 Occult Blood Fecal Negative Normal Negative [facility] ([place]) Comment on above: Performed By: #### O CC #### [address] [address] .GFRon 12-04-2023 GFR 59 ml/min/1.73sqm Normal [facility] ([place]) Comment on above: Result Comment: GFR Population mean for , Non- Americans Ages 20-29 = 116 mL/min/1.73 sq.m. Ages 30-39 = 107 mL/min/1.73 sq.m. Ages 40-49 = 99 mL/min/1.73 sq.m. Ages 50-59 = 93 mL/min/1.73 sq.m. Ages 60-69 = 85 mL/min/1.73 sq.m. Ages 70+ = 75 mL/min/1.73 sq.m. Chronic Kidney Disease: Less than 60 mL/min/1.73 square meters End Stage Renal Disease: Less than 15 mL/min/1.73 square meters Performed By: #### A 1C, FES, ADIFF, VIDH, FERR, URIC, GFR, ANEU, CBC, RFP #### [address] [address] #### C3C4A, SPE #### [address] [address] GFR Non- 49 ml/min/1.73sqm Normal [facility] ([place]) Comment on above: Result Comment: GFR Population mean for , Non- Americans Ages 20-29 = 116 mL/min/1.73 sq.m. Ages 30-39 = 107 mL/min/1.73 sq.m. Ages 40-49 = 99 mL/min/1.73 sq.m. Ages 50-59 = 93 mL/min/1.73 sq.m. Ages 60-69 = 85 mL/min/1.73 sq.m. Ages 70+ = 75 mL/min/1.73 sq.m. Chronic Kidney Disease: Less than 60 mL/min/1.73 square meters End Stage Renal Disease: Less than 15 mL/min/1.73 square meters Performed By: #### A 1C, FES, ADIFF, VIDH, FERR, URIC, GFR, ANEU, CBC, RFP #### [place] [address] #### C3C4A, SPE #### [place] [address] .Manual Diffon 12-04-2023 Bands 1.0 % Normal 0.0-5.0 [facility] ([place]) Comment on above: Performed By: #### A 1C, FES, ADIFF, VIDH, FERR, URIC, GFR, ANEU, CBC, RFP #### [place] [address] #### C3C4A, SPE #### [place] [address] Basophil %, Manual 0.0 % Normal 0.0-2.5 [facility] ([place]) Comment on above: Performed By: #### A 1C, FES, ADIFF, VIDH, FERR, URIC, GFR, ANEU, CBC, RFP #### [place] [address] #### C3C4A, SPE #### [place] [address] Basophil, Abs Manual 0.0 10 3/mcL Normal 0.0-0.2 [facility] ([place]) Comment on above: Performed By: #### A 1C, FES, ADIFF, VIDH, FERR, URIC, GFR, ANEU, CBC, RFP #### [place] [address] #### C3C4A, SPE #### [place] [address] Eosinophil %, Manual 2.0 % Normal 0.0-7.0 [facility] ([place]) Comment on above: Performed By: #### A 1C, FES, ADIFF, VIDH, FERR, URIC, GFR, ANEU, CBC, RFP #### [address] [address] #### C3C4A, SPE #### [address] [address] Eosinophil, Abs Manual 0.2 10 3/mcL Normal 0.0-0.4 [facility] ([place]) Comment on above: Performed By: #### A 1C, FES, ADIFF, VIDH, FERR, URIC, GFR, ANEU, CBC, RFP #### [address] [address] #### C3C4A, SPE #### [address] [address] Lymphocyte %, Manual 17.0 % Normal 10.0-50.0 [facility] ([place]) Comment on above: Performed By: #### A 1C, FES, ADIFF, VIDH, FERR, URIC, GFR, ANEU, CBC, RFP #### [address] [address] #### C3C4A, SPE #### [address] [address] Lymphocyte, Abs Manual 2.1 10 3/mcL Normal 0.8-3.9 [facility] ([place]) Comment on above: Performed By: #### A 1C, FES, ADIFF, VIDH, FERR, URIC, GFR, ANEU, CBC, RFP #### [address] [address] #### C3C4A, SPE #### [address] [address] Metamyelocyte 2.0 % Normal [facility] ([place]) Comment on above: Performed By: #### A 1C, FES, ADIFF, VIDH, FERR, URIC, GFR, ANEU, CBC, RFP #### [address] [address] #### C3C4A, SPE #### [place] [id number] Monocyte %, Manual 5.0 % Normal 1.7-13.0 [facility] ([place]) Comment on above: Performed By: #### A 1C, FES, ADIFF, VIDH, FERR, URIC, GFR, ANEU, CBC, RFP #### [address] [address] #### C3C4A, SPE #### [address] [address] Monocyte, Abs Manual 0.6 10 3/mcL Normal 0.2-1.0 [facility] ([place]) Comment on above: Performed By: #### A 1C, FES, ADIFF, VIDH, FERR, URIC, GFR, ANEU, CBC, RFP #### [place] [address] #### C3C4A, SPE #### [address] [address] Neutrophil %, Manual 73.0 % Normal 37.0-80.0 [facility] ([place]) Comment on above: Performed By: #### A 1C, FES, ADIFF, VIDH, FERR, URIC, GFR, ANEU, CBC, RFP #### [place] [address] #### C3C4A, SPE #### [address] [address] Neutrophil, Abs Manual 9.1 10 3/mcL High 2.9-6.2 [facility] ([place]) Comment on above: Performed By: #### A 1C, FES, ADIFF, VIDH, FERR, URIC, GFR, ANEU, CBC, RFP #### [place] [address] #### C3C4A, SPE #### [address] [address] Nucleated RBC 0.0 /100 WBC Normal [facility] ([place]) Comment on above: Performed By: #### A 1C, FES, ADIFF, VIDH, FERR, URIC, GFR, ANEU, CBC, RFP #### [place] [address] #### C3C4A, SPE #### [address] [address] .Morphon 12-04-2023 Platelet Estimate Normal Normal [facility] ([place]) Comment on above: Performed By: #### A 1C, FES, ADIFF, VIDH, FERR, URIC, GFR, ANEU, CBC, RFP #### [place] [address] #### C3C4A, SPE #### [place] [address] BMPon 12-04-2023 BUN/Creatinine Ratio 30 ratio High 7-27 [facility] ([place]) Comment on above: Performed By: #### A 1C, FES, ADIFF, VIDH, FERR, URIC, GFR, ANEU, CBC, RFP #### [place] [address] #### C3C4A, SPE #### [place] [address] Calcium [Mass/Vol] 8.6 mg/dL Normal 8.4-10.2 [facility] ([place]) Comment on above: Performed By: #### A 1C, FES, ADIFF, VIDH, FERR, URIC, GFR, ANEU, CBC, RFP #### [place] [address] #### C3C4A, SPE #### [place] [address] Chloride [Moles/Vol] 106 mmol/L Normal 98-107 [facility] ([place]) Comment on above: Performed By: #### A 1C, FES, ADIFF, VIDH, FERR, URIC, GFR, ANEU, CBC, RFP #### [place] [address] #### C3C4A, SPE #### [place] [id number] CO2 [Moles/Vol] 23 mmol/L Normal 23-31 [facility] ([place]) Comment on above: Performed By: #### A 1C, FES, ADIFF, VIDH, FERR, URIC, GFR, ANEU, CBC, RFP #### [address] [address] #### C3C4A, SPE #### [address] [address] Creatinine [Mass/Vol] 1.08 mg/dL High 0.55-1.02 [facility] ([place]) Comment on above: Performed By: #### A 1C, FES, ADIFF, VIDH, FERR, URIC, GFR, ANEU, CBC, RFP #### [address] [address] #### C3C4A, SPE #### [address] [address] Electrolyte Balance 13.0 mEq/L Normal 4.0-15.0 [facility] ([place]) Comment on above: Performed By: #### A 1C, FES, ADIFF, VIDH, FERR, URIC, GFR, ANEU, CBC, RFP #### [place] [address] #### C3C4A, SPE #### [address] [address] Glucose [Mass/Vol] 123 mg/dL High 83-110 [facility] ([place]) Comment on above: Performed By: #### A 1C, FES, ADIFF, VIDH, FERR, URIC, GFR, ANEU, CBC, RFP #### [address] [address] #### C3C4A, SPE #### [address] [address] Potassium [Moles/Vol] 4.6 mmol/L Normal 3.5-5.1 [facility] ([place]) Comment on above: Performed By: #### A 1C, FES, ADIFF, VIDH, FERR, URIC, GFR, ANEU, CBC, RFP #### [address] [address] #### C3C4A, SPE #### [address] [address] Sodium [Moles/Vol] 142 mmol/L Normal 136-145 [facility] ([place]) Comment on above: Performed By: #### A 1C, FES, ADIFF, VIDH, FERR, URIC, GFR, ANEU, CBC, RFP #### [address] [address] #### C3C4A, SPE #### [address] [address] Urea nitrogen [Mass/Vol] 32 mg/dL High 7-18 [facility] ([place]) Comment on above: Performed By: #### A 1C, FES, ADIFF, VIDH, FERR, URIC, GFR, ANEU, CBC, RFP #### [address] [address] #### C3C4A, SPE #### [place] [address] CBCon 12-04-2023 Erythrocyte distribution width (RBC) [Ratio] 15.8 % High 11.5-14.5 [facility] ([place]) Comment on above: Performed By: #### A 1C, FES, ADIFF, VIDH, FERR, URIC, GFR, ANEU, CBC, RFP #### [address] [address] #### C3C4A, SPE #### [place] [address] Hematocrit (Bld) [Volume fraction] 26.3 % Low 37.0-47.0 [facility] ([place]) Comment on above: Performed By: #### A 1C, FES, ADIFF, VIDH, FERR, URIC, GFR, ANEU, CBC, RFP #### [address] [address] #### C3C4A, SPE #### [place] [address] Hgb 8.8 G/dL Low 12.0-16.0 [facility] ([place]) Comment on above: Performed By: #### A 1C, FES, ADIFF, VIDH, FERR, URIC, GFR, ANEU, CBC, RFP #### [place] [address] #### C3C4A, SPE #### [place] [address] MCH (RBC) [Entitic mass] 29.7 pg Normal 27.0-31.2 [facility] ([place]) Comment on above: Performed By: #### A 1C, FES, ADIFF, VIDH, FERR, URIC, GFR, ANEU, CBC, RFP #### [place] [address] #### C3C4A, SPE #### [place] [address] MCHC 33.3 G/dL Normal 33.0-37.0 [facility] ([place]) Comment on above: Performed By: #### A 1C, FES, ADIFF, VIDH, FERR, URIC, GFR, ANEU, CBC, RFP #### [place] [address] #### C3C4A, SPE #### [place] [address] MCV (RBC) [Entitic vol] 89.0 fL Normal 80.0-94.0 [facility] ([place]) Comment on above: Performed By: #### A 1C, FES, ADIFF, VIDH, FERR, URIC, GFR, ANEU, CBC, RFP #### [place] [address] #### C3C4A, SPE #### [place] [address] Platelet 332 10 3/mcL Normal 130-400 [facility] ([place]) Comment on above: Performed By: #### A 1C, FES, ADIFF, VIDH, FERR, URIC, GFR, ANEU, CBC, RFP #### [place] [address] #### C3C4A, SPE #### [place] [address] Platelet mean volume (Bld) [Entitic vol] 7.6 fL Normal 7.4-10.4 [facility] ([place]) Comment on above: Performed By: #### A 1C, FES, ADIFF, VIDH, FERR, URIC, GFR, ANEU, CBC, RFP #### [address] [address] #### C3C4A, SPE #### [address] [address] RBC 2.95 10 6/mcL Low 4.20-5.40 [facility] ([place]) Comment on above: Performed By: #### A 1C, FES, ADIFF, VIDH, FERR, URIC, GFR, ANEU, CBC, RFP #### [address] [address] #### C3C4A, SPE #### [place] [address] WBC 12.3 10 3/mcL High 4.6-10.8 [facility] ([place]) Comment on above: Performed By: #### A 1C, FES, ADIFF, VIDH, FERR, URIC, GFR, ANEU, CBC, RFP #### [address] [address] #### C3C4A, SPE #### [place] [address] LABORATORYOrdered By: SYSTEM SYSTEM on 12-04-2023 Bands 1.0 % Normal 0.0 - 5.0 % AO Workflow SS Basophil %, Manual 0.0 % Normal 0.0 - 2.5 % AO Workflow SS Basophil, Abs Manual 0.0 103/mcL Normal 0.0 - 0 .2 10^3/mcL AO Workflow SS Calcium [Mass/Vol] 8.6 mg/dL Normal 8.4 - 10. 2 mg/dL AO ADM SS Chloride [Moles/Vol] 106 mmol/L Normal 98 - 10 7 mmol/L AO ADM SS CO2 [Moles/Vol] 23 mmol/L Normal 23 - 31 mmol/L AO ADM SS Creatinine [Mass/Vol] 1.08 mg/dL High 0.55 - 1.02 mg/dL AO ADM SS Electrolyte Balance 13.0 mEq/L Normal 4.0 - 15 .0 mEq/L AO ADM SS Eosinophil %, Manual 2.0 % Normal 0.0 - 7 .0 % AO Workflow SS Eosinophils (Bld) [#/Vol] 0.2 103/mcL Normal 0.0 - 0.4 10^3/mcL AO Workflow SS Erythrocyte distribution width (RBC) [Ratio] 15.8 % High 11.5 - 14.5 % AO Workflow SS GFR/1.73 sq M.predicted among blacks MDRD (S/P/Bld) [Vol rate/Area] 59 ml/min/1.73sqm Invalid Interpretation Code AO Chemistry S Comment on above: Interpretive Data: GFR Population mean for , Non- Americans Ages 20-29 = 116 mL/min/1.73 sq.m. Ages 30-39 = 107 mL/min/1.73 sq.m. Ages 40-49 = 99 mL/min/1.73 sq.m. Ages 50-59 = 93 mL/min/1.73 sq.m. Ages 60-69 = 85 mL/min/1.73 sq.m. Ages 70+ = 75 mL/min/1.73 sq.m. Chronic Kidney Disease: Less than 60 mL/min/1.73 square meters End Stage Renal Disease: Less than 15 mL/min/1.73 square meters GFR/1.73 sq M.predicted among non-blacks MDRD (S/P/Bld) [Vol rate/Area] 49 ml/min/1.73sqm Invalid Interpretation Code AO Chemistry S Comment on above: Interpretive Data: GFR Population mean for , Non- Americans Ages 20-29 = 116 mL/min/1.73 sq.m. Ages 30-39 = 107 mL/min/1.73 sq.m. Ages 40-49 = 99 mL/min/1.73 sq.m. Ages 50-59 = 93 mL/min/1.73 sq.m. Ages 60-69 = 85 mL/min/1.73 sq.m. Ages 70+ = 75 mL/min/1.73 sq.m. Chronic Kidney Disease: Less than 60 mL/min/1.73 square meters End Stage Renal Disease: Less than 15 mL/min/1.73 square meters Glucose [Mass/Vol] 123 mg/dL High 83 - 110 mg/dL AO ADM SS Hematocrit (Bld) [Volume fraction] 26.3 % Low 37.0 - 47.0 % AO Workflow SS Hemoglobin (Bld) [Mass/Vol] 8.8 G/dL Low 12.0 - 16.0 G/dL AO Workflow SS Lymphocyte %, Manual 17.0 % Normal 10.0 - 50.0 % AO Workflow SS Lymphocyte, Abs Manual 2.1 103/mcL Normal 0.8 - 3.9 10^3/mcL AO Workflow SS Magnesium [Mass/Vol] 1.7 mg/dL Low 1.8 - 2 .4 mg/dL AO ADM SS MCH (RBC) [Entitic mass] 29.7 pg Normal 27.0 - 31.2 pg AO Workflow SS MCHC 33.3 G/dL Normal 33.0 - 37.0 G/dL AO Workflow SS MCV (RBC) [Entitic vol] 89.0 fL Normal 80.0 - 94.0 fL AO Workflow SS Metamyelocytes/100 WBC (Bld) 2.0 % Invalid Interpretation Code AO Workflow SS Monocyte %, Manual 5.0 % Normal 1.7 - 13. 0 % AO Workflow SS Monocyte, Abs Manual 0.6 103/mcL Normal 0.2 - 1 .0 10^3/mcL AO Workflow SS Neutrophil %, Manual 73.0 % Normal 37.0 - 80.0 % AO Workflow SS Neutrophil, Abs Manual 9.1 103/mcL High 2.9 - 6.2 10^3/mcL AO Workflow SS Nucleated RBC 0.0 /100 WBC Invalid Interpretation Code AO Workflow SS Platelet Estimate Normal *NA* (12/04/23 5:26 AM) Invalid Interpretation Code AO Workflow SS Platelet mean volume (Bld) [Entitic vol] 7.6 fL Normal 7.4 - 10.4 fL AO Workflow SS Platelets (Bld) [#/Vol] 332 103/mcL Normal 130 - 400 10^3/mcL AO Workflow SS Potassium [Moles/Vol] 4.6 mmol/L Normal 3.5 - 5.1 mmol/L AO ADM SS RBC (Bld) [#/Vol] 2.95 106/mcL Low 4.20 - 5.40 10^6/mcL AO Workflow SS Sodium [Moles/Vol] 142 mmol/L Normal 136 - 145 mmol/L AO ADM SS Urea nitrogen [Mass/Vol] 32 mg/dL High 7 - 18 mg/dL AO ADM SS Urea nitrogen/Creatinine [Mass ratio] 30 ratio High 7 - 27 ratio AO ADM SS WBC (Bld) [#/Vol] 12.3 103/mcL High 4.6 - 10.8 10^3/mcL AO Workflow SS MGon 12-04-2023 Magnesium [Mass/Vol] 1.7 mg/dL Low 1.8-2.4 [facility] ([place]) Comment on above: Performed By: #### A 1C, FES, ADIFF, VIDH, FERR, URIC, GFR, ANEU, CBC, RFP #### [facility] [address] [place], [place] [address] #### C3C4A, SPE #### [address] [address] XR CHEST 2 VIEWSon 4 XR CHEST 2 VIEWS ORIGINAL EXAMINATION: TWO XRAY VIEWS OF THE CHEST12/04/2023 11:36 am COMPARISON: 12/01/2023 HISTORY: ORDERING SYSTEM PROVIDED HISTORY: Reason for Exam: PNA, FINDINGS: There is persistent consolidation in the left lower lung/lingula without significant change. Suspect trace left pleural effusion. No other acute findings or significant change. IMPRESSION: Left lingular consolidation and small left pleural effusion, follow-up to complete resolution. Interpreted by: Al Trent MD Preliminary Report By: Al Trent MD Electronically signed By Al Trent MD Dictated Date: 12/04/2023 11:43:21 AM Prelim Date: 12/04/2023 11:44:14 AM Sign Date: 12/04/2023 11:44:14 AM Ordering Provider: SAMRA HERNANDEZ [facility] ([place]) .GFRon 12-03-2023 GFR 50 ml/min/1.73sqm [facility] ([place]) Comment on above: Result Comment: GFR Population mean for , Non- Americans Ages 20-29 = 116 mL/min/1.73 sq.m. Ages 30-39 = 107 mL/min/1.73 sq.m. Ages 40-49 = 99 mL/min/1.73 sq.m. Ages 50-59 = 93 mL/min/1.73 sq.m. Ages 60-69 = 85 mL/min/1.73 sq.m. Ages 70+ = 75 mL/min/1.73 sq.m. Chronic Kidney Disease: Less than 60 mL/min/1.73 square meters End Stage Renal Disease: Less than 15 mL/min/1.73 square meters Performed By: #### A 1C, FES, ADIFF, VIDH, FERR, URIC, GFR, ANEU, CBC, RFP #### [address] [address] #### C3C4A, SPE #### [address] [address] GFR Non- 41 ml/min/1.73sqm Normal [facility] ([place]) Comment on above: Result Comment: GFR Population mean for , Non- Americans Ages 20-29 = 116 mL/min/1.73 sq.m. Ages 30-39 = 107 mL/min/1.73 sq.m. Ages 40-49 = 99 mL/min/1.73 sq.m. Ages 50-59 = 93 mL/min/1.73 sq.m. Ages 60-69 = 85 mL/min/1.73 sq.m. Ages 70+ = 75 mL/min/1.73 sq.m. Chronic Kidney Disease: Less than 60 mL/min/1.73 square meters End Stage Renal Disease: Less than 15 mL/min/1.73 square meters Performed By: #### A 1C, FES, ADIFF, VIDH, FERR, URIC, GFR, ANEU, CBC, RFP #### [address] [address] #### C3C4A, SPE #### [address] [address] .Manual Diffon 12-03-2023 Bands 2.0 % Normal 0.0-5.0 [facility] ([place]) Comment on above: Performed By: #### A 1C, FES, ADIFF, VIDH, FERR, URIC, GFR, ANEU, CBC, RFP #### [address] [address] #### C3C4A, SPE #### [address] [address] Basophil %, Manual 0.0 % Normal 0.0-2.5 [facility] ([place]) Comment on above: Performed By: #### A 1C, FES, ADIFF, VIDH, FERR, URIC, GFR, ANEU, CBC, RFP #### [address] [address] #### C3C4A, SPE #### [address] [address] Basophil, Abs Manual 0.0 10 3/mcL Normal 0.0-0.2 [facility] ([place]) Comment on above: Performed By: #### A 1C, FES, ADIFF, VIDH, FERR, URIC, GFR, ANEU, CBC, RFP #### [place] [address] #### C3C4A, SPE #### [address] [address] Eosinophil %, Manual 0.0 % Normal 0.0-7.0 [facility] ([place]) Comment on above: Performed By: #### A 1C, FES, ADIFF, VIDH, FERR, URIC, GFR, ANEU, CBC, RFP #### [place] [address] #### C3C4A, SPE #### [address] [address] Eosinophil, Abs Manual 0.0 10 3/mcL Normal 0.0-0.4 [facility] ([place]) Comment on above: Performed By: #### A 1C, FES, ADIFF, VIDH, FERR, URIC, GFR, ANEU, CBC, RFP #### [place] [address] #### C3C4A, SPE #### [address] [address] Lymphocyte %, Manual 12.0 % Normal 10.0-50.0 [facility] ([place]) Comment on above: Performed By: #### A 1C, FES, ADIFF, VIDH, FERR, URIC, GFR, ANEU, CBC, RFP #### [place] [address] #### C3C4A, SPE #### [address] [address] Lymphocyte, Abs Manual 1.8 10 3/mcL Normal 0.8-3.9 [facility] ([place]) Comment on above: Performed By: #### A 1C, FES, ADIFF, VIDH, FERR, URIC, GFR, ANEU, CBC, RFP #### [address] [address] #### C3C4A, SPE #### [address] [address] Monocyte %, Manual 2.0 % Normal 1.7-13.0 [facility] ([place]) Comment on above: Performed By: #### A 1C, FES, ADIFF, VIDH, FERR, URIC, GFR, ANEU, CBC, RFP #### [address] [address] #### C3C4A, SPE #### [address] [address] Monocyte, Abs Manual 0.3 10 3/mcL Normal 0.2-1.0 [facility] ([place]) Comment on above: Performed By: #### A 1C, FES, ADIFF, VIDH, FERR, URIC, GFR, ANEU, CBC, RFP #### [address] [address] #### C3C4A, SPE #### [address] [address] Neutrophil %, Manual 84.0 % High 37.0-80.0 [facility] ([place]) Comment on above: Performed By: #### A 1C, FES, ADIFF, VIDH, FERR, URIC, GFR, ANEU, CBC, RFP #### [place] [address] #### C3C4A, SPE #### [address] [address] Neutrophil, Abs Manual 12.7 10 3/mcL High 2.9-6.2 [facility] ([place]) Comment on above: Performed By: #### A 1C, FES, ADIFF, VIDH, FERR, URIC, GFR, ANEU, CBC, RFP #### [place] [address] #### C3C4A, SPE #### [place] [address] Nucleated RBC 0.0 /100 WBC Normal [facility] ([place]) Comment on above: Performed By: #### A 1C, FES, ADIFF, VIDH, FERR, URIC, GFR, ANEU, CBC, RFP #### [place] [address] #### C3C4A, SPE #### [place] [address] .Morphon 12-03-2023 Anisocytosis Ql (Bld) 1+ Normal [facility] ([place]) Comment on above: Performed By: #### A 1C, FES, ADIFF, VIDH, FERR, URIC, GFR, ANEU, CBC, RFP #### [place] [address] #### C3C4A, SPE #### [place] [address] Microcytosis 1+ Normal [facility] ([place]) Comment on above: Performed By: #### A 1C, FES, ADIFF, VIDH, FERR, URIC, GFR, ANEU, CBC, RFP #### [place] [address] #### C3C4A, SPE #### [place] [address] Platelet Estimate Normal Normal [facility] ([place]) Comment on above: Performed By: #### A 1C, FES, ADIFF, VIDH, FERR, URIC, GFR, ANEU, CBC, RFP #### [place] [address] #### C3C4A, SPE #### [place] [address] BMPon 12-03-2023 BUN/Creatinine Ratio 42 ratio High 7-27 [facility] ([place]) Comment on above: Performed By: #### A 1C, FES, ADIFF, VIDH, FERR, URIC, GFR, ANEU, CBC, RFP #### [address] [address] #### C3C4A, SPE #### [address] [address] Calcium [Mass/Vol] 8.2 mg/dL Low 8.4-10.2 [facility] ([place]) Comment on above: Performed By: #### A 1C, FES, ADIFF, VIDH, FERR, URIC, GFR, ANEU, CBC, RFP #### [address] [address] #### C3C4A, SPE #### [address] [address] Chloride [Moles/Vol] 109 mmol/L High 98-107 [facility] ([place]) Comment on above: Performed By: #### A 1C, FES, ADIFF, VIDH, FERR, URIC, GFR, ANEU, CBC, RFP #### [place] [address] #### C3C4A, SPE #### [address] [address] CO2 [Moles/Vol] 19 mmol/L Low 23-31 [facility] ([place]) Comment on above: Performed By: #### A 1C, FES, ADIFF, VIDH, FERR, URIC, GFR, ANEU, CBC, RFP #### [place] [address] #### C3C4A, SPE #### [address] [address] Creatinine [Mass/Vol] 1.25 mg/dL High 0.55-1.02 [facility] ([place]) Comment on above: Performed By: #### A 1C, FES, ADIFF, VIDH, FERR, URIC, GFR, ANEU, CBC, RFP #### [place] [address] #### C3C4A, SPE #### [address] [address] Electrolyte Balance 14.0 mEq/L Normal 4.0-15.0 [facility] ([place]) Comment on above: Performed By: #### A 1C, FES, ADIFF, VIDH, FERR, URIC, GFR, ANEU, CBC, RFP #### [address] [address] #### C3C4A, SPE #### [address] [address] Glucose [Mass/Vol] 119 mg/dL High 83-110 [facility] ([place]) Comment on above: Performed By: #### A 1C, FES, ADIFF, VIDH, FERR, URIC, GFR, ANEU, CBC, RFP #### [address] [address] #### C3C4A, SPE #### [address] [address] Potassium [Moles/Vol] 4.2 mmol/L Normal 3.5-5.1 [facility] ([place]) Comment on above: Performed By: #### A 1C, FES, ADIFF, VIDH, FERR, URIC, GFR, ANEU, CBC, RFP #### [address] [address] #### C3C4A, SPE #### [address] [address] Sodium [Moles/Vol] 142 mmol/L Normal 136-145 [facility] ([place]) Comment on above: Performed By: #### A 1C, FES, ADIFF, VIDH, FERR, URIC, GFR, ANEU, CBC, RFP #### [address] [address] #### C3C4A, SPE #### [address] [address] Urea nitrogen [Mass/Vol] 52 mg/dL High 7-18 [facility] ([place]) Comment on above: Performed By: #### A 1C, FES, ADIFF, VIDH, FERR, URIC, GFR, ANEU, CBC, RFP #### [address] [address] #### C3C4A, SPE #### [place] [address] CBCon 12-03-2023 Erythrocyte distribution width (RBC) [Ratio] 15.8 % High 11.5-14.5 [facility] ([place]) Comment on above: Performed By: #### A 1C, FES, ADIFF, VIDH, FERR, URIC, GFR, ANEU, CBC, RFP #### [place] [address] #### C3C4A, SPE #### [place] [address] Hematocrit (Bld) [Volume fraction] 26.5 % Low 37.0-47.0 [facility] ([place]) Comment on above: Performed By: #### A 1C, FES, ADIFF, VIDH, FERR, URIC, GFR, ANEU, CBC, RFP #### [place] [address] #### C3C4A, SPE #### [place] [address] Hgb 8.7 G/dL Low 12.0-16.0 [facility] ([place]) Comment on above: Performed By: #### A 1C, FES, ADIFF, VIDH, FERR, URIC, GFR, ANEU, CBC, RFP #### [place] [address] #### C3C4A, SPE #### [place] [address] MCH (RBC) [Entitic mass] 29.1 pg Normal 27.0-31.2 [facility] ([place]) Comment on above: Performed By: #### A 1C, FES, ADIFF, VIDH, FERR, URIC, GFR, ANEU, CBC, RFP #### [place] [address] #### C3C4A, SPE #### [place] [address] MCHC 32.7 G/dL Low 33.0-37.0 [facility] ([place] Comment on above: Performed By: #### A 1C, FES, ADIFF, VIDH, FERR, URIC, GFR, ANEU, CBC, RFP #### [place] [address] #### C3C4A, SPE #### [place] [address] MCV (RBC) [Entitic vol] 88.9 fL Normal 80.0-94.0 [facility] ([place] Comment on above: Performed By: #### A 1C, FES, ADIFF, VIDH, FERR, URIC, GFR, ANEU, CBC, RFP #### [place] [address] #### C3C4A, SPE #### [place] [address] Platelet 295 10 3/mcL Normal 130-400 [facility] ([place] Comment on above: Performed By: #### A 1C, FES, ADIFF, VIDH, FERR, URIC, GFR, ANEU, CBC, RFP #### [place] [address] #### C3C4A, SPE #### [place] [address] Platelet mean volume (Bld) [Entitic vol] 7.8 fL Normal 7.4-10.4 [facility] ([place] Comment on above: Performed By: #### A 1C, FES, ADIFF, VIDH, FERR, URIC, GFR, ANEU, CBC, RFP #### [place] [address] #### C3C4A, SPE #### [place] [address] RBC 2.98 10 6/mcL Low 4.20-5.40 [facility] ([place] Comment on above: Performed By: #### A 1C, FES, ADIFF, VIDH, FERR, URIC, GFR, ANEU, CBC, RFP #### [place] [address] #### C3C4A, SPE #### [address] [address] WBC 14.8 10 3/mcL High 4.6-10.8 [facility] ([place] Comment on above: Performed By: #### A 1C, FES, ADIFF, VIDH, FERR, URIC, GFR, ANEU, CBC, RFP #### [place] [id number] [place], [place] [address] #### C3C4A, SPE #### [address] [address] LABORATORYOrdered By: SYSTEM SYSTEM on 12-03-2023 Anisocytosis Ql (Bld) 1+ *NA* (12/03/23 5:20 AM) Invalid Interpretation Code AO Workflow SS Bands 2.0 % Normal 0.0 - 5.0 % AO Workflow SS Basophil %, Manual 0.0 % Normal 0.0 - 2.5 % AO Workflow SS Basophil, Abs Manual 0.0 103/mcL Normal 0.0 - 0 .2 10^3/mcL AO Workflow SS Calcium [Mass/Vol] 8.2 mg/dL Low 8.4 - 10. 2 mg/dL AO ADM SS Chloride [Moles/Vol] 109 mmol/L High 98 - 10 7 mmol/L AO ADM SS CO2 [Moles/Vol] 19 mmol/L Low 23 - 31 mmol/L AO ADM SS Creatinine [Mass/Vol] 1.25 mg/dL High 0.55 - 1.02 mg/dL AO ADM SS Electrolyte Balance 14.0 mEq/L Normal 4.0 - 15 .0 mEq/L AO ADM SS Eosinophil %, Manual 0.0 % Normal 0.0 - 7 .0 % AO Workflow SS Eosinophils (Bld) [#/Vol] 0.0 103/mcL Normal 0.0 - 0.4 10^3/mcL AO Workflow SS Erythrocyte distribution width (RBC) [Ratio] 15.8 % High 11.5 - 14.5 % AO Workflow SS GFR/1.73 sq M.predicted among blacks MDRD (S/P/Bld) [Vol rate/Area] 50 ml/min/1.73sqm Invalid Interpretation Code AO Chemistry S Comment on above: Interpretive Data: GFR Population mean for , Non- Americans Ages 20-29 = 116 mL/min/1.73 sq.m. Ages 30-39 = 107 mL/min/1.73 sq.m. Ages 40-49 = 99 mL/min/1.73 sq.m. Ages 50-59 = 93 mL/min/1.73 sq.m. Ages 60-69 = 85 mL/min/1.73 sq.m. Ages 70+ = 75 mL/min/1.73 sq.m. Chronic Kidney Disease: Less than 60 mL/min/1.73 square meters End Stage Renal Disease: Less than 15 mL/min/1.73 square meters GFR/1.73 sq M.predicted among non-blacks MDRD (S/P/Bld) [Vol rate/Area] 41 ml/min/1.73sqm Invalid Interpretation Code AO Chemistry S Comment on above: Interpretive Data: GFR Population mean for , Non- Americans Ages 20-29 = 116 mL/min/1.73 sq.m. Ages 30-39 = 107 mL/min/1.73 sq.m. Ages 40-49 = 99 mL/min/1.73 sq.m. Ages 50-59 = 93 mL/min/1.73 sq.m. Ages 60-69 = 85 mL/min/1.73 sq.m. Ages 70+ = 75 mL/min/1.73 sq.m. Chronic Kidney Disease: Less than 60 mL/min/1.73 square meters End Stage Renal Disease: Less than 15 mL/min/1.73 square meters Glucose [Mass/Vol] 119 mg/dL High 83 - 110 mg/dL AO ADM SS Hematocrit (Bld) [Volume fraction] 26.5 % Low 37.0 - 47.0 % AO Workflow SS Hemoglobin (Bld) [Mass/Vol] 8.7 G/dL Low 12.0 - 16.0 G/dL AO Workflow SS Lymphocyte %, Manual 12.0 % Normal 10.0 - 50.0 % AO Workflow SS Lymphocyte, Abs Manual 1.8 103/mcL Normal 0.8 - 3.9 10^3/mcL AO Workflow SS Magnesium [Mass/Vol] 2.4 mg/dL Normal 1.8 - 2 .4 mg/dL AO ADM SS MCH (RBC) [Entitic mass] 29.1 pg Normal 27.0 - 31.2 pg AO Workflow SS MCHC 32.7 G/dL Low 33.0 - 37.0 G/dL AO Workflow SS MCV (RBC) [Entitic vol] 88.9 fL Normal 80.0 - 94.0 fL AO Workflow SS Microcytes Ql (Bld) 1+ *NA* (12/03/23 5:20 AM) Invalid Interpretation Code AO Workflow SS Monocyte %, Manual 2.0 % Normal 1.7 - 13. 0 % AO Workflow SS Monocyte, Abs Manual 0.3 103/mcL Normal 0.2 - 1 .0 10^3/mcL AO Workflow SS Neutrophil %, Manual 84.0 % High 37.0 - 80.0 % AO Workflow SS Neutrophil, Abs Manual 12.7 103/mcL High 2.9 - 6.2 10^3/mcL AO Workflow SS Nucleated RBC 0.0 /100 WBC Invalid Interpretation Code AO Workflow SS Platelet Estimate Normal *NA* (12/03/23 5:20 AM) Invalid Interpretation Code AO Workflow SS Platelet mean volume (Bld) [Entitic vol] 7.8 fL Normal 7.4 - 10.4 fL AO Workflow SS Platelets (Bld) [#/Vol] 295 103/mcL Normal 130 - 400 10^3/mcL AO Workflow SS Potassium [Moles/Vol] 4.2 mmol/L Normal 3.5 - 5.1 mmol/L AO ADM SS RBC (Bld) [#/Vol] 2.98 106/mcL Low 4.20 - 5.40 10^6/mcL AO Workflow SS Sodium [Moles/Vol] 142 mmol/L Normal 136 - 145 mmol/L AO ADM SS Urea nitrogen [Mass/Vol] 52 mg/dL High 7 - 18 mg/dL AO ADM SS Urea nitrogen/Creatinine [Mass ratio] 42 ratio High 7 - 27 ratio AO ADM SS WBC (Bld) [#/Vol] 14.8 103/mcL High 4.6 - 10.8 10^3/mcL AO Workflow SS MGon 12-03-2023 Magnesium [Mass/Vol] 2.4 mg/dL Normal 1.8-2.4 [facility] ([place] Comment on above: Performed By: #### A 1C, FES, ADIFF, VIDH, FERR, URIC, GFR, ANEU, CBC, RFP #### [place] [id number] #### C3C4A, SPE #### [address] [address] .GFRon 12-02-2023 GFR Non- 31 ml/min/1.73sqm Normal [facility] ([place]) Comment on above: Result Comment: GFR Population mean for , Non- Americans Ages 20-29 = 116 mL/min/1.73 sq.m. Ages 30-39 = 107 mL/min/1.73 sq.m. Ages 40-49 = 99 mL/min/1.73 sq.m. Ages 50-59 = 93 mL/min/1.73 sq.m. Ages 60-69 = 85 mL/min/1.73 sq.m. Ages 70+ = 75 mL/min/1.73 sq.m. Chronic Kidney Disease: Less than 60 mL/min/1.73 square meters End Stage Renal Disease: Less than 15 mL/min/1.73 square meters Performed By: #### A 1C, FES, ADIFF, VIDH, FERR, URIC, GFR, ANEU, CBC, RFP #### [address] [address] #### C3C4A, SPE #### [address] [address] GFR 37 ml/min/1.73sqm Normal [facility] ([place]) Comment on above: Result Comment: GFR Population mean for , Non- Americans Ages 20-29 = 116 mL/min/1.73 sq.m. Ages 30-39 = 107 mL/min/1.73 sq.m. Ages 40-49 = 99 mL/min/1.73 sq.m. Ages 50-59 = 93 mL/min/1.73 sq.m. Ages 60-69 = 85 mL/min/1.73 sq.m. Ages 70+ = 75 mL/min/1.73 sq.m. Chronic Kidney Disease: Less than 60 mL/min/1.73 square meters End Stage Renal Disease: Less than 15 mL/min/1.73 square meters Performed By: #### A 1C, FES, ADIFF, VIDH, FERR, URIC, GFR, ANEU, CBC, RFP #### [place] [address] #### C3C4A, SPE #### [address] [address] .Manual Diffon 12-02-2023 Bands 5.0 % Normal 0.0-5.0 [facility] ([place]) Comment on above: Performed By: #### A 1C, FES, ADIFF, VIDH, FERR, URIC, GFR, ANEU, CBC, RFP #### [place] [address] #### C3C4A, SPE #### [place] [address] Basophil %, Manual 0.0 % Normal 0.0-2.5 [facility] ([place]) Comment on above: Performed By: #### A 1C, FES, ADIFF, VIDH, FERR, URIC, GFR, ANEU, CBC, RFP #### [place] [address] #### C3C4A, SPE #### [place] [address] Basophil, Abs Manual 0.0 10 3/mcL Normal 0.0-0.2 [facility] ([place]) Comment on above: Performed By: #### A 1C, FES, ADIFF, VIDH, FERR, URIC, GFR, ANEU, CBC, RFP #### [place] [address] #### C3C4A, SPE #### [place] [address] Eosinophil %, Manual 0.0 % Normal 0.0-7.0 [facility] ([place]) Comment on above: Performed By: #### A 1C, FES, ADIFF, VIDH, FERR, URIC, GFR, ANEU, CBC, RFP #### [place] [address] #### C3C4A, SPE #### [place] [address] Eosinophil, Abs Manual 0.0 10 3/mcL Normal 0.0-0.4 [facility] ([place]) Comment on above: Performed By: #### A 1C, FES, ADIFF, VIDH, FERR, URIC, GFR, ANEU, CBC, RFP #### [address] [address] #### C3C4A, SPE #### [address] [address] Lymphocyte %, Manual 12.0 % Normal 10.0-50.0 [facility] ([place]) Comment on above: Performed By: #### A 1C, FES, ADIFF, VIDH, FERR, URIC, GFR, ANEU, CBC, RFP #### [place] [address] #### C3C4A, SPE #### [address] [address] Lymphocyte, Abs Manual 2.2 10 3/mcL Normal 0.8-3.9 [facility] ([place]) Comment on above: Performed By: #### A 1C, FES, ADIFF, VIDH, FERR, URIC, GFR, ANEU, CBC, RFP #### [place] [address] #### C3C4A, SPE #### [address] [address] Monocyte %, Manual 9.0 % Normal 1.7-13.0 [facility] ([place]) Comment on above: Performed By: #### A 1C, FES, ADIFF, VIDH, FERR, URIC, GFR, ANEU, CBC, RFP #### [place] [address] #### C3C4A, SPE #### [address] [address] Monocyte, Abs Manual 1.6 10 3/mcL High 0.2-1.0 [facility] ([place]) Comment on above: Performed By: #### A 1C, FES, ADIFF, VIDH, FERR, URIC, GFR, ANEU, CBC, RFP #### [place] [address] #### C3C4A, SPE #### [place] [address] Neutrophil %, Manual 74.0 % Normal 37.0-80.0 [facility] ([place]) Comment on above: Performed By: #### A 1C, FES, ADIFF, VIDH, FERR, URIC, GFR, ANEU, CBC, RFP #### [address] [address] #### C3C4A, SPE #### [place] [address] Nucleated RBC 0.0 /100 WBC Normal [facility] ([place]) Comment on above: Performed By: #### A 1C, FES, ADIFF, VIDH, FERR, URIC, GFR, ANEU, CBC, RFP #### [place] [address] #### C3C4A, SPE #### [place] [address] Neutrophil, Abs Manual 14.3 10 3/mcL High 2.9-6.2 [facility] ([place]) Comment on above: Performed By: #### A 1C, FES, ADIFF, VIDH, FERR, URIC, GFR, ANEU, CBC, RFP #### [place] [address] #### C3C4A, SPE #### [place] [address] .Morphon 12-02-2023 Platelet Estimate Normal Normal [facility] ([place]) Comment on above: Performed By: #### A 1C, FES, ADIFF, VIDH, FERR, URIC, GFR, ANEU, CBC, RFP #### [place] [address] #### C3C4A, SPE #### [place] [address] BMPon 12-02-2023 BUN/Creatinine Ratio 37 ratio High 7-27 [facility] ([place]) Comment on above: Performed By: #### A 1C, FES, ADIFF, VIDH, FERR, URIC, GFR, ANEU, CBC, RFP #### [place] [address] #### C3C4A, SPE #### [address] [address] Calcium [Mass/Vol] 8.3 mg/dL Low 8.4-10.2 [facility] ([place]) Comment on above: Performed By: #### A 1C, FES, ADIFF, VIDH, FERR, URIC, GFR, ANEU, CBC, RFP #### [place] [address] #### C3C4A, SPE #### [address] [address] Chloride [Moles/Vol] 102 mmol/L Normal 98-107 [facility] ([place] Comment on above: Performed By: #### A 1C, FES, ADIFF, VIDH, FERR, URIC, GFR, ANEU, CBC, RFP #### [place] [address] #### C3C4A, SPE #### [place] [address] CO2 [Moles/Vol] 18 mmol/L Low 23-31 [facility] ([place]) Comment on above: Performed By: #### A 1C, FES, ADIFF, VIDH, FERR, URIC, GFR, ANEU, CBC, RFP #### [place] [address] #### C3C4A, SPE #### [place] [address] Creatinine [Mass/Vol] 1.60 mg/dL High 0.55-1.02 [facility] ([place]) Comment on above: Performed By: #### A 1C, FES, ADIFF, VIDH, FERR, URIC, GFR, ANEU, CBC, RFP #### [place] [address] #### C3C4A, SPE #### [address] [address] Electrolyte Balance 14.0 mEq/L Normal 4.0-15.0 [facility] ([place]) Comment on above: Performed By: #### A 1C, FES, ADIFF, VIDH, FERR, URIC, GFR, ANEU, CBC, RFP #### [address] [address] #### C3C4A, SPE #### [address] [address] Glucose [Mass/Vol] 159 mg/dL High 83-110 [facility] ([place]) Comment on above: Performed By: #### A 1C, FES, ADIFF, VIDH, FERR, URIC, GFR, ANEU, CBC, RFP #### [address] [address] #### C3C4A, SPE #### [address] [address] Potassium [Moles/Vol] 4.1 mmol/L Normal 3.5-5.1 [facility] ([place]) Comment on above: Performed By: #### A 1C, FES, ADIFF, VIDH, FERR, URIC, GFR, ANEU, CBC, RFP #### [address] [address] #### C3C4A, SPE #### [address] [address] Sodium [Moles/Vol] 134 mmol/L Low 136-145 [facility] ([place]) Comment on above: Performed By: #### A 1C, FES, ADIFF, VIDH, FERR, URIC, GFR, ANEU, CBC, RFP #### [address] [address] #### C3C4A, SPE #### [address] [address] Urea nitrogen [Mass/Vol] 59 mg/dL High 7-18 [facility] ([place]) Comment on above: Performed By: #### A 1C, FES, ADIFF, VIDH, FERR, URIC, GFR, ANEU, CBC, RFP #### [address] [address] #### C3C4A, SPE #### [address] [address] CBCon 12-02-2023 Erythrocyte distribution width (RBC) [Ratio] 15.3 % High 11.5-14.5 [facility] ([place]) Comment on above: Performed By: #### A 1C, FES, ADIFF, VIDH, FERR, URIC, GFR, ANEU, CBC, RFP #### [address] [address] #### C3C4A, SPE #### [place] [address] Hematocrit (Bld) [Volume fraction] 25.2 % Low 37.0-47.0 [facility] ([place]) Comment on above: Performed By: #### A 1C, FES, ADIFF, VIDH, FERR, URIC, GFR, ANEU, CBC, RFP #### [address] [address] #### C3C4A, SPE #### [place] [address] Hgb 8.5 G/dL Low 12.0-16.0 [facility] ([place]) Comment on above: Performed By: #### A 1C, FES, ADIFF, VIDH, FERR, URIC, GFR, ANEU, CBC, RFP #### [place] [address] #### C3C4A, SPE #### [place] [address] MCH (RBC) [Entitic mass] 30.0 pg Normal 27.0-31.2 [facility] ([place]) Comment on above: Performed By: #### A 1C, FES, ADIFF, VIDH, FERR, URIC, GFR, ANEU, CBC, RFP #### [place] [address] #### C3C4A, SPE #### [place] [address] MCHC 33.7 G/dL Normal 33.0-37.0 [facility] ([place] Comment on above: Performed By: #### A 1C, FES, ADIFF, VIDH, FERR, URIC, GFR, ANEU, CBC, RFP #### [place] [address] #### C3C4A, SPE #### [place] [id number] MCV (RBC) [Entitic vol] 89.0 fL Normal 80.0-94.0 [facility] ([place]) Comment on above: Performed By: #### A 1C, FES, ADIFF, VIDH, FERR, URIC, GFR, ANEU, CBC, RFP #### [place] [address] #### C3C4A, SPE #### [place] [address] Platelet 248 10 3/mcL Normal 130-400 [facility] ([place]) Comment on above: Performed By: #### A 1C, FES, ADIFF, VIDH, FERR, URIC, GFR, ANEU, CBC, RFP #### [place] [address] #### C3C4A, SPE #### [place] [address] Platelet mean volume (Bld) [Entitic vol] 7.9 fL Normal 7.4-10.4 [facility] ([place] Comment on above: Performed By: #### A 1C, FES, ADIFF, VIDH, FERR, URIC, GFR, ANEU, CBC, RFP #### [place] [address] #### C3C4A, SPE #### [place] [address] RBC 2.84 10 6/mcL Low 4.20-5.40 [facility] ([place]) Comment on above: Performed By: #### A 1C, FES, ADIFF, VIDH, FERR, URIC, GFR, ANEU, CBC, RFP #### [place] [address] #### C3C4A, SPE #### [place] [address] WBC 18.2 10 3/mcL High 4.6-10.8 [facility] ([place]) Comment on above: Performed By: #### A 1C, FES, ADIFF, VIDH, FERR, URIC, GFR, ANEU, CBC, RFP #### [place] [id number] [place], [place] [address] #### C3C4A, SPE #### [address] [address] MGon 12-02-2023 Magnesium [Mass/Vol] 1.9 mg/dL Normal 1.8-2.4 [facility] ([place]) Comment on above: Performed By: #### A 1C, FES, ADIFF, VIDH, FERR, URIC, GFR, ANEU, CBC, RFP #### [place] [id number] [place], [place] [address] #### C3C4A, SPE #### [address] [address] MYCOon 12-02-2023 Mycoplasma IgM Negative Normal [facility] ([place]) Comment on above: Result Comment: INTE RPRETATION OF MYCOPLASMA IgM: Negative: IgM to M. pneumoniae Absent, or at levels below the assay limit of detection. Positive: IgM to M. pneumoniae Present. Invalid: Test results are invalid due to invalid internal control. Assay was performed in duplicate. Repeat testing is suggested if clinically indicated. Performed By: #### M YCO #### [address] [address] No Panel Informationon 12-01 Microscopic examination of blood, culture Culture has been received in lab and is no growth to date. Routine cultures are held for 5 days. [facility] Work Phone: Legionella Urine Ag Presumptive negative for L. pneumophila serogroup 1 antigen in urine, suggesting no recent or current infection. Legionnaire's disease cannot be ruled out since other serogroups and species may also cause disease. [facility] Work Phone: .GFRon 12-01-2023 GFR 32 ml/min/1.73sqm Normal [facility] ([place]) Comment on above: Result Comment: GFR Population mean for , Non- Americans Ages 20-29 = 116 mL/min/1.73 sq.m. Ages 30-39 = 107 mL/min/1.73 sq.m. Ages 40-49 = 99 mL/min/1.73 sq.m. Ages 50-59 = 93 mL/min/1.73 sq.m. Ages 60-69 = 85 mL/min/1.73 sq.m. Ages 70+ = 75 mL/min/1.73 sq.m. Chronic Kidney Disease: Less than 60 mL/min/1.73 square meters End Stage Renal Disease: Less than 15 mL/min/1.73 square meters Performed By: #### A 1C, FES, ADIFF, VIDH, FERR, URIC, GFR, ANEU, CBC, RFP #### [address] [address] #### C3C4A, SPE #### [address] [address] GFR Non- 27 ml/min/1.73sqm Normal [facility] ([place]) Comment on above: Result Comment: GFR Population mean for , Non- Americans Ages 20-29 = 116 mL/min/1.73 sq.m. Ages 30-39 = 107 mL/min/1.73 sq.m. Ages 40-49 = 99 mL/min/1.73 sq.m. Ages 50-59 = 93 mL/min/1.73 sq.m. Ages 60-69 = 85 mL/min/1.73 sq.m. Ages 70+ = 75 mL/min/1.73 sq.m. Chronic Kidney Disease: Less than 60 mL/min/1.73 square meters End Stage Renal Disease: Less than 15 mL/min/1.73 square meters Performed By: #### A 1C, FES, ADIFF, VIDH, FERR, URIC, GFR, ANEU, CBC, RFP #### [address] [address] #### C3C4A, SPE #### [address] [address] .MDWon 12-01-2023 Monocyte Distribution Width 28.11 High 0.00-20.00 [facility] ([place]) Comment on above: Result Comment: For adults in ED, MDW>20.0 may be associated with a higher risk of sepsis during the first 12hrs of hospital admission The predictive value of MDW for identifying sepsis in patients with hematological abnormalities has not been established Performed By: #### A 1C, FES, ADIFF, VIDH, FERR, URIC, GFR, ANEU, CBC, RFP #### [place] [address] #### C3C4A, SPE #### [place] [address] .Manual Diffon 12-01-2023 Bands 9.0 % High 0.0-5.0 [facility] ([place]) Comment on above: Performed By: #### A 1C, FES, ADIFF, VIDH, FERR, URIC, GFR, ANEU, CBC, RFP #### [place] [address] #### C3C4A, SPE #### [place] [address] Basophil %, Manual 0.0 % Normal 0.0-2.5 [facility] ([place]) Comment on above: Performed By: #### A 1C, FES, ADIFF, VIDH, FERR, URIC, GFR, ANEU, CBC, RFP #### [place] [address] #### C3C4A, SPE #### [place] [address] Basophil, Abs Manual 0.0 10 3/mcL Normal 0.0-0.2 [facility] ([place]) Comment on above: Performed By: #### A 1C, FES, ADIFF, VIDH, FERR, URIC, GFR, ANEU, CBC, RFP #### [place] [address] #### C3C4A, SPE #### [place] [address] Eosinophil %, Manual 0.0 % Normal 0.0-7.0 [facility] ([place]) Comment on above: Performed By: #### A 1C, FES, ADIFF, VIDH, FERR, URIC, GFR, ANEU, CBC, RFP #### [address] [address] #### C3C4A, SPE #### [address] [address] Eosinophil, Abs Manual 0.0 10 3/mcL Normal 0.0-0.4 [facility] ([place] Comment on above: Performed By: #### A 1C, FES, ADIFF, VIDH, FERR, URIC, GFR, ANEU, CBC, RFP #### [place] [address] #### C3C4A, SPE #### [address] [address] Lymphocyte %, Manual 5.0 % Low 10.0-50.0 [facility] ([place] Comment on above: Performed By: #### A 1C, FES, ADIFF, VIDH, FERR, URIC, GFR, ANEU, CBC, RFP #### [place] [address] #### C3C4A, SPE #### [address] [address] Lymphocyte, Abs Manual 1.0 10 3/mcL Normal 0.8-3.9 [facility] ([place] Comment on above: Performed By: #### A 1C, FES, ADIFF, VIDH, FERR, URIC, GFR, ANEU, CBC, RFP #### [place] [address] #### C3C4A, SPE #### [address] [address] Monocyte %, Manual 5.0 % Normal 1.7-13.0 [facility] ([place]) Comment on above: Performed By: #### A 1C, FES, ADIFF, VIDH, FERR, URIC, GFR, ANEU, CBC, RFP #### [place] [address] #### C3C4A, SPE #### [address] [address] Monocyte, Abs Manual 1.0 10 3/mcL Normal 0.2-1.0 [facility] ([place]) Comment on above: Performed By: #### A 1C, FES, ADIFF, VIDH, FERR, URIC, GFR, ANEU, CBC, RFP #### [place] [address] #### C3C4A, SPE #### [place] [address] Neutrophil %, Manual 81.0 % High 37.0-80.0 [facility] ([place] Comment on above: Performed By: #### A 1C, FES, ADIFF, VIDH, FERR, URIC, GFR, ANEU, CBC, RFP #### [place] [address] #### C3C4A, SPE #### [place] [address] Neutrophil, Abs Manual 17.8 10 3/mcL High 2.9-6.2 [facility] ([place] Comment on above: Performed By: #### A 1C, FES, ADIFF, VIDH, FERR, URIC, GFR, ANEU, CBC, RFP #### [place] [address] #### C3C4A, SPE #### [place] [address] Nucleated RBC 0.0 /100 WBC Normal [facility] ([place] Comment on above: Performed By: #### A 1C, FES, ADIFF, VIDH, FERR, URIC, GFR, ANEU, CBC, RFP #### [place] [address] #### C3C4A, SPE #### [place] [address] .Morphon 12-01-2023 Platelet Estimate Normal Normal [facility] ([place] Comment on above: Performed By: #### A 1C, FES, ADIFF, VIDH, FERR, URIC, GFR, ANEU, CBC, RFP #### [place] [address] #### C3C4A, SPE #### [place] [address] .Urinalysis Microscopic (AO) on 12-01-2023 UA Amorphus 1+ /hpf Normal [facility] ([place] Comment on above: Performed By: #### A 1C, FES, ADIFF, VIDH, FERR, URIC, GFR, ANEU, CBC, RFP #### [place] [address] #### C3C4A, SPE #### [place] [address] UA RBC 0-5 Abnormal None Seen [facility] ([place] Comment on above: Performed By: #### A 1C, FES, ADIFF, VIDH, FERR, URIC, GFR, ANEU, CBC, RFP #### [place] [address] #### C3C4A, SPE #### [place] [address] UA Squam Epithelial 0-5 Abnormal None Seen [facility] ([place] Comment on above: Performed By: #### A 1C, FES, ADIFF, VIDH, FERR, URIC, GFR, ANEU, CBC, RFP #### [place] [address] #### C3C4A, SPE #### [place] [address] UA Transitional Epithelial 0-5 Abnormal [facility] ([place] Comment on above: Performed By: #### A 1C, FES, ADIFF, VIDH, FERR, URIC, GFR, ANEU, CBC, RFP #### [place] [address] #### C3C4A, SPE #### [place] [address] UA WBC 0-5 Abnormal None Seen [facility] ([place] Comment on above: Performed By: #### A 1C, FES, ADIFF, VIDH, FERR, URIC, GFR, ANEU, CBC, RFP #### [place] [address] #### C3C4A, SPE #### [place] [address] APTTon 12-01-2023 aPTT Coag (Bld) [Time] 28.8 s Normal 25.0-35.0 [facility] ([place] Comment on above: Result Comment: For Heparin anticoagulation therapy, the recommended therapeutic range is: 50.6-87.4 seconds. Patients on heparin therapy may have an extreme result. Performed By: #### A 1C, FES, ADIFF, VIDH, FERR, URIC, GFR, ANEU, CBC, RFP #### [place] [address] #### C3C4A, SPE #### [place] [address] Heparin dose (APTT) Unknown Normal [facility] ([place] Comment on above: Performed By: #### A 1C, FES, ADIFF, VIDH, FERR, URIC, GFR, ANEU, CBC, RFP #### [place] [address] #### C3C4A, SPE #### [place] [address] CBCon 12-01-2023 Erythrocyte distribution width (RBC) [Ratio] 15.2 % High 11.5-14.5 [facility] ([place] Comment on above: Performed By: #### A 1C, FES, ADIFF, VIDH, FERR, URIC, GFR, ANEU, CBC, RFP #### [place] [address] #### C3C4A, SPE #### [place] [address] Hematocrit (Bld) [Volume fraction] 29.7 % Low 37.0-47.0 [facility] ([place] Comment on above: Performed By: #### A 1C, FES, ADIFF, VIDH, FERR, URIC, GFR, ANEU, CBC, RFP #### [place] [address] #### C3C4A, SPE #### [place] [address] Hgb 9.8 G/dL Low 12.0-16.0 [facility] ([place] Comment on above: Performed By: #### A 1C, FES, ADIFF, VIDH, FERR, URIC, GFR, ANEU, CBC, RFP #### [place] [address] #### C3C4A, SPE #### [place] [id number] MCH (RBC) [Entitic mass] 29.4 pg Normal 27.0-31.2 [facility] ([place] Comment on above: Performed By: #### A 1C, FES, ADIFF, VIDH, FERR, URIC, GFR, ANEU, CBC, RFP #### [place] [address] #### C3C4A, SPE #### [place] [address] MCHC 32.9 G/dL Low 33.0-37.0 [facility] ([place] Comment on above: Performed By: #### A 1C, FES, ADIFF, VIDH, FERR, URIC, GFR, ANEU, CBC, RFP #### [place] [address] #### C3C4A, SPE #### [place] [address] MCV (RBC) [Entitic vol] 89.5 fL Normal 80.0-94.0 [facility] ([place] Comment on above: Performed By: #### A 1C, FES, ADIFF, VIDH, FERR, URIC, GFR, ANEU, CBC, RFP #### [place] [address] #### C3C4A, SPE #### [place] [address] Platelet 292 10 3/mcL Normal 130-400 [facility] ([place] Comment on above: Performed By: #### A 1C, FES, ADIFF, VIDH, FERR, URIC, GFR, ANEU, CBC, RFP #### [place] [address] #### C3C4A, SPE #### [place] [address] Platelet mean volume (Bld) [Entitic vol] 7.6 fL Normal 7.4-10.4 [facility] ([place] Comment on above: Performed By: #### A 1C, FES, ADIFF, VIDH, FERR, URIC, GFR, ANEU, CBC, RFP #### [place] [address] #### C3C4A, SPE #### [place] [address] RBC 3.32 10 6/mcL Low 4.20-5.40 [facility] ([place] Comment on above: Performed By: #### A 1C, FES, ADIFF, VIDH, FERR, URIC, GFR, ANEU, CBC, RFP #### [place] [address] #### C3C4A, SPE #### [place] [address] WBC 19.8 10 3/mcL High 4.6-10.8 [facility] ([place] Comment on above: Performed By: #### A 1C, FES, ADIFF, VIDH, FERR, URIC, GFR, ANEU, CBC, RFP #### [place] [address] #### C3C4A, SPE #### [place] [address] CMPon 12-01-2023 Albumin Level 2.9 G/dL Low 3.4-4.8 [facility] ([place] Comment on above: Performed By: #### A 1C, FES, ADIFF, VIDH, FERR, URIC, GFR, ANEU, CBC, RFP #### [place] [address] #### C3C4A, SPE #### [place] [address] Albumin/Globulin [Mass ratio] 0.8 {ratio} Low 1.1-2.5 [facility] ([place] Comment on above: Performed By: #### A 1C, FES, ADIFF, VIDH, FERR, URIC, GFR, ANEU, CBC, RFP #### [place] [address] #### C3C4A, SPE #### [address] [address] ALP [Catalytic activity/Vol] 117 U/L Normal 40-135 [facility] ([place] Comment on above: Performed By: #### A 1C, FES, ADIFF, VIDH, FERR, URIC, GFR, ANEU, CBC, RFP #### [place] [address] #### C3C4A, SPE #### [address] [address] ALT [Catalytic activity/Vol] 20 U/L Normal 14-59 [facility] ([place] Comment on above: Performed By: #### A 1C, FES, ADIFF, VIDH, FERR, URIC, GFR, ANEU, CBC, RFP #### [place] [address] #### C3C4A, SPE #### [place] [address] AST [Catalytic activity/Vol] 16 U/L Normal 10-40 [facility] ([place] Comment on above: Performed By: #### A 1C, FES, ADIFF, VIDH, FERR, URIC, GFR, ANEU, CBC, RFP #### [place] [address] #### C3C4A, SPE #### [place] [id number] Bili Total 0.2 mg/dL Normal 0.2-1.0 [facility] ([place]) Comment on above: Result Comment: Use of this assay is not recommended for patients undergoing treatment with eltrombopag due to the potential for falsely elevated results. Performed By: #### A 1C, FES, ADIFF, VIDH, FERR, URIC, GFR, ANEU, CBC, RFP #### [address] [address] #### C3C4A, SPE #### [address] [address] BUN/Creatinine Ratio 38 ratio High 7-27 [facility] ([place]) Comment on above: Performed By: #### A 1C, FES, ADIFF, VIDH, FERR, URIC, GFR, ANEU, CBC, RFP #### [place] [address] #### C3C4A, SPE #### [address] [address] Calcium [Mass/Vol] 8.8 mg/dL Normal 8.4-10.2 [facility] ([place]) Comment on above: Performed By: #### A 1C, FES, ADIFF, VIDH, FERR, URIC, GFR, ANEU, CBC, RFP #### [place] [address] #### C3C4A, SPE #### [address] [address] Chloride [Moles/Vol] 94 mmol/L Low 98-107 [facility] ([place] Comment on above: Performed By: #### A 1C, FES, ADIFF, VIDH, FERR, URIC, GFR, ANEU, CBC, RFP #### [place] [address] #### C3C4A, SPE #### [address] [address] CO2 [Moles/Vol] 18 mmol/L Low 23-31 [facility] ([place] Comment on above: Performed By: #### A 1C, FES, ADIFF, VIDH, FERR, URIC, GFR, ANEU, CBC, RFP #### [place] [address] #### C3C4A, SPE #### [address] [address] Creatinine [Mass/Vol] 1.82 mg/dL High 0.55-1.02 [facility] ([place]) Comment on above: Performed By: #### A 1C, FES, ADIFF, VIDH, FERR, URIC, GFR, ANEU, CBC, RFP #### [address] [address] #### C3C4A, SPE #### [address] [address] Electrolyte Balance 18.0 mEq/L High 4.0-15.0 [facility] ([place]) Comment on above: Performed By: #### A 1C, FES, ADIFF, VIDH, FERR, URIC, GFR, ANEU, CBC, RFP #### [address] [address] #### C3C4A, SPE #### [address] [address] Globulin 3.7 G/dL Normal [facility] ([place]) Comment on above: Performed By: #### A 1C, FES, ADIFF, VIDH, FERR, URIC, GFR, ANEU, CBC, RFP #### [address] [address] #### C3C4A, SPE #### [address] [address] Glucose [Mass/Vol] 194 mg/dL High 83-110 [facility] ([place]) Comment on above: Performed By: #### A 1C, FES, ADIFF, VIDH, FERR, URIC, GFR, ANEU, CBC, RFP #### [place] [address] #### C3C4A, SPE #### [address] [address] Potassium [Moles/Vol] 4.4 mmol/L Normal 3.5-5.1 [facility] ([place]) Comment on above: Performed By: #### A 1C, FES, ADIFF, VIDH, FERR, URIC, GFR, ANEU, CBC, RFP #### [place] [address] #### C3C4A, SPE #### [address] [address] Sodium [Moles/Vol] 130 mmol/L Low 136-145 [facility] ([place]) Comment on above: Performed By: #### A 1C, FES, ADIFF, VIDH, FERR, URIC, GFR, ANEU, CBC, RFP #### [address] [address] #### C3C4A, SPE #### [place] [address] Total Protein 6.6 G/dL Normal 6.4-8.2 [facility] ([place]) Comment on above: Performed By: #### A 1C, FES, ADIFF, VIDH, FERR, URIC, GFR, ANEU, CBC, RFP #### [place] [address] #### C3C4A, SPE #### [place] [address] Urea nitrogen [Mass/Vol] 70 mg/dL High 7-18 [facility] ([place]) Comment on above: Performed By: #### A 1C, FES, ADIFF, VIDH, FERR, URIC, GFR, ANEU, CBC, RFP #### [place] [address] #### C3C4A, SPE #### [place] [address] CRPon 12-01-2023 C-Reactive Protein 17.4 mg/dL High 0.0-0.3 [facility] ([place]) Comment on above: Performed By: #### A 1C, FES, ADIFF, VIDH, FERR, URIC, GFR, ANEU, CBC, RFP #### [place] [address] #### C3C4A, SPE #### [place] [address] CVFLURVon 12-01-2023 FLU A PCR Negative Normal Negative [facility] ([place]) Comment on above: Performed By: #### A 1C, FES, ADIFF, VIDH, FERR, URIC, GFR, ANEU, CBC, RFP #### [place] [address] #### C3C4A, SPE #### [address] [address] FLU B PCR Negative Normal Negative [facility] ([place]) Comment on above: Performed By: #### A 1C, FES, ADIFF, VIDH, FERR, URIC, GFR, ANEU, CBC, RFP #### [place] [address] #### C3C4A, SPE #### [address] [address] RSV PCR Negative Normal Negative [facility] ([place]) Comment on above: Performed By: #### A 1C, FES, ADIFF, VIDH, FERR, URIC, GFR, ANEU, CBC, RFP #### [place] [address] #### C3C4A, SPE #### [place] [address] SARS-CoV-2 (COVID-19) RNA KELSI+probe Ql (Unsp spec) Negative Normal Negative [facility] ([place]) Comment on above: Result Comment: Resu lts from the Xpert Xpress CoV-2/Flu/RSV plus test should be correlated with the clinical history, epidemiological data, and other data available to the clinical evaluating the patient. Performance of the Xpert Xpress CoV-2/Flu/RSV plus test has only been established in nasopharyngeal swab specimen. Erroneous test results might occur from improper specimen collection, failure to follow the recommended sample collection, handling and storage procedures, technical error, or sample mix-up. False negative results may occur if a virus is present at a level below the analytical limit of detection. Viral nucleic acid may persist in vivo, independent of virus viability. Detection of analyte target(s) does not imply that the corresponding virus(es) are infectious or are the causative agents for clinical symptoms. Recent patient exposure to FluMist or other live attenuated influenza vaccines may cause inaccurate positive results. Performed By: #### A 1C, FES, ADIFF, VIDH, FERR, URIC, GFR, ANEU, CBC, RFP #### [place] [address] #### C3C4A, [facility] #### [place] [address] LABORATORYOrdered By: Cristóbal Kern on 12-01-2023 M. pneumoniae IgG IA Ql (S) Positive 8 *NA* (12/01/23 10:22 PM) Invalid Interpretation Code AH Auto Viro/Sero SS Comment on above: Interpretive Data: I NTERPRETATION OF MYCOPLASMA IgG BY EIA: Negative: No detectable M. pneumoniae IgG antibody. Positive: Mycoplasma pneumoniae IgG antibody Detected. Equivocal: Equivocal for IgG antibodies to Mycoplasma pneumoniae. Suggest repeat testing in 10-14 days. M. pneumoniae IgM IA Ql (S) Negative 7 (12/01/23 10:22 PM) Normal Man Viro/Sero SS Comment on above: Interpretive Data: I NTERPRETATION OF MYCOPLASMA IgM: Negative: IgM to M. pneumoniae Absent, or at levels below the assay limit of detection. Positive: IgM to M. pneumoniae Present. Invalid: Test results are invalid due to invalid internal control. Assay was performed in duplicate. Repeat testing is suggested if clinically indicated. LABORATORYOrdered By: Rose mtz on 12-01-2023 Appearance (U) Clear (12/01/23 3:20 PM) Normal Clear AO Auto Urine SS Bilirubin Ql (U) Negative (12/01/23 3:20 PM) Normal Negative AO Auto Urine SS Color (U) Yellow (12/01/23 3:20 PM) Normal AO Auto Urine SS Crystals.amorphous LM.HPF (Urine sed) [#/Area] 1 /[HPF] Normal AO Auto Urine SS Glucose Test strip (U) [Mass/Vol] Negative Normal Negative AO Auto Urine SS Hemoglobin Auto test strip (U) [Mass/Vol] Negative (12/01/23 3:20 PM) Normal Negative AO Auto Urine SS Ketones Ql (U) Negative Normal Negative AO Auto Urine SS UA Leuk Est Trace *ABN* (12/01/23 3:20 PM) Invalid Interpretation Code Negative AO Auto Urine SS UA Nitrite Negative (12/01/23 3:20 PM) Normal Negative AO Auto Urine SS UA pH 5.5 (12/01/23 3:20 PM) Normal 5.0 - 8.0 AO Auto Urine SS UA Protein 30 mg/dL Normal Negative AO Auto Urine SS UA RBC 0-5 /HPF Invalid Interpretation Code None Seen AO Auto Urine SS UA Spec Grav 1.015 (12/01/23 3:20 PM) Normal 1.015-1.02 5 AO Auto Urine SS UA Specimen Type Not Given (12/01/23 3:20 PM) Normal AO Auto Urine SS UA Squam Epithelial 0-5 /HPF Invalid Interpretation Code None Seen AO Auto Urine SS UA Transitional Epithelial 0-5 /HPF Invalid Interpretation Code AO Auto Urine SS UA Urobilinogen 0.2 E.U./dL Normal 0.2-1.0 AO Auto Urine SS WBC LM.HPF (Urine sed) [#/Area] 0-5 /HPF Invalid Interpretation Code None Seen AO Auto Urine SS LABORATORYOrdered By: Rose Childs on 12-01-2023 FLUAV RNA KELSI+probe Ql (Resp) Negative (12/01/23 3:20 PM) Normal Negative AO Auto Urine SS FLUBV RNA KELSI+probe Ql (Resp) Negative (12/01/23 3:20 PM) Normal Negative AO Auto Urine SS RSV RNA KELSI+probe Ql (Resp) Negative (12/01/23 3:20 PM) Normal Negative AO Auto Urine SS SARS-CoV-2 (COVID-19) RNA KELSI+probe Ql (Resp) Negative 6 (12/01/23 3:20 PM) Normal Negative AO Auto Urine SS Comment on above: Interpretive Data: R esults from the Xpert Xpress CoV-2/Flu/RSV plus test should be correlated with the clinical history, epidemiological data, and other data available to the clinical evaluating the patient. Performance of the Xpert Xpress CoV-2/Flu/RSV plus test has only been established in nasopharyngeal swab specimen. Erroneous test results might occur from improper specimen collection, failure to follow the recommended sample collection, handling and storage procedures, technical error, or sample mix-up. False negative results may occur if a virus is present at a level below the analytical limit of detection. Viral nucleic acid may persist in vivo, independent of virus viability. Detection of analyte target(s) does not imply that the corresponding virus(es) are infectious or are the causative agents for clinical symptoms. Recent patient exposure to FluMist or other live attenuated influenza vaccines may cause inaccurate positive results. aPTT Coag (PPP) [Time] 28.8 s Normal 25.0 - 35.0 seconds AO HemoHub SS Comment on above: Interpretive Data: F or Heparin anticoagulation therapy, the recommended therapeutic range is: 50.6-87.4 seconds. Patients on heparin therapy may have an extreme result. Heparin dose (APTT) Unknown (12/01/23 2:58 PM) Normal AO Coagulation S INR Coag (PPP) [Relative time] 1.1 {INR} Invalid Interpretation Code AO HemoHub SS Comment on above: Interpretive Data: [employer] (CHEST, 1991, 102:312S-25S) recommended therapeutic range for oral anticoagulant therapy is: LOW RISK: Prophylaxis of venous thrombosis INR: 2.0-3.0 Treatment of pulmonary embolism 2.0-3.0 Prevention of systemic embolism 2.0-3.0 HIGH RISK: Mechanical prosthetic valves 2.5-3.5 PT Coag (PPP) [Time] 12.8 s Normal 9.0 - 1 4.4 seconds AO HemoHub SS LABORATORYOrdered By: SYSTEM SYSTEM on 12-01-2023 Lactate [Moles/Vol] 1.5 mmol/L Normal 0.4 - 2. 0 mmol/L AO ADM SS Albumin BCP dye [Mass/Vol] 2.9 G/dL Low 3.4 - 4.8 G/dL AO ADM SS Albumin/Globulin [Mass ratio] 0.8 {ratio} Low 1.1 - 2.5 ratio AO ADM SS ALP [Catalytic activity/Vol] 117 U/L Normal 40 - 135 U/L AO ADM SS ALT With P-5'-P [Catalytic activity/Vol] 20 U/L Normal 14 - 59 U/L AO ADM SS AST With P-5'-P [Catalytic activity/Vol] 16 U/L Normal 10 - 40 U/L AO ADM SS Bilirubin [Mass/Vol] 0.2 mg/dL Normal 0.2 - 1 .0 mg/dL AO ADM SS Comment on above: Interpretive Data: U se of this assay is not recommended for patients undergoing treatment with eltrombopag due to the potential for falsely elevated results. CRP [Mass/Vol] 17.4 mg/dL High 0.0 - 0.3 mg/dL AO ADM SS Globulin 3.7 G/dL Invalid Interpretation Code AO ADM SS Monocyte distribution width Auto (Bld) [Entitic vol] 28.11 1 High 0.00 - 20.00 AO Workflow SS Comment on above: Result Comment: For adults in ED, MDW>20.0 may be associated with a higher risk of sepsis during the first 12hrs of hospital admission The predictive value of MDW for identifying sepsis in patients with hematological abnormalities has not been established Protein [Mass/Vol] 6.6 G/dL Normal 6.4 - 8.2 G/dL AO ADM SS Troponin I.cardiac DL <= 0.01 ng/mL [Mass/Vol] 20 ng/L Normal 0 - 51 ng/L AO ADM SS Comment on above: Interpretive Data: H igh Sensitive Troponin I Reference Ranges: Female: 0-51 ng/L Male: 0-76 ng/L Testing performed on [employer] using a homogeneous sandwich chemiluminescent immunoassay based on [employer] technology. LACon 12-01-2023 Lactic Acid Lvl 1.5 mmol/L Normal 0.4-2.0 [facility] ([place]) Comment on above: Performed By: #### A 1C, FES, ADIFF, VIDH, FERR, URIC, GFR, ANEU, CBC, RFP #### [address] [address] #### C3C4A, SPE #### [place] [address] MGon 12-01-2023 Magnesium [Mass/Vol] 1.6 mg/dL Low 1.8-2.4 [facility] ([place]) Comment on above: Performed By: #### A 1C, FES, ADIFF, VIDH, FERR, URIC, GFR, ANEU, CBC, RFP #### [address] [address] #### C3C4A, SPE #### [address] [address] No Panel Informationon 11-30 Microscopic examination of blood, culture Culture has been received in lab and is no growth to date. Routine cultures are held for 5 days. [facility] Work Phone: PROon 12-01-2023 PT Coag (PPP) [Time] 12.8 s Normal 9.0-14.4 [facility] ([place]) Comment on above: Performed By: #### A 1C, FES, ADIFF, VIDH, FERR, URIC, GFR, ANEU, CBC, RFP #### [place] [address] #### C3C4A, SPE #### [place] [address] PT International Ratio 1.1 Normal [facility] ([place]) Comment on above: Result Comment: [employer] (CHEST, 1992, 102:312S-25S) recommended therapeutic range for oral anticoagulant therapy is: LOW RISK: Prophylaxis of venous thrombosis INR: 2.0-3.0 Treatment of pulmonary embolism 2.0-3.0 Prevention of systemic embolism 2.0-3.0 HIGH RISK: Mechanical prosthetic valves 2.5-3.5 Performed By: #### A 1C, FES, ADIFF, VIDH, FERR, URIC, GFR, ANEU, CBC, RFP #### [place] [address] #### C3C4A, SPE #### [address] 12-01-2023 High Sensitivity Troponin I 20 ng/L Normal 0-51 [facility] ([place]) Comment on above: Result Comment: High Sensitive Troponin I Reference Ranges: Female: 0-51 ng/L Male: 0-76 ng/L Testing performed on [employer] using a homogeneous sandwich chemiluminescent immunoassay based on [employer] technology. Performed By: #### A 1C, FES, ADIFF, VIDH, FERR, URIC, GFR, ANEU, CBC, RFP #### [place] [address] #### C3C4A, SPE #### [place] [address] UAon 12-01-2023 Color (U) Yellow Normal [facility] ([place]) Comment on above: Performed By: #### A 1C, FES, ADIFF, VIDH, FERR, URIC, GFR, ANEU, CBC, RFP #### [place] [address] #### C3C4A, SPE #### [address] [address] Glucose (U) [Mass/Vol] Negative Normal Negative [facility] ([place]) Comment on above: Performed By: #### A 1C, FES, ADIFF, VIDH, FERR, URIC, GFR, ANEU, CBC, RFP #### [address] [address] #### C3C4A, SPE #### [address] [address] Ketones Ql (U) Negative Normal Negative [facility] ([place]) Comment on above: Performed By: #### A 1C, FES, ADIFF, VIDH, FERR, URIC, GFR, ANEU, CBC, RFP #### [address] [address] #### C3C4A, SPE #### [place] [address] UA Appear Clear Normal Clear [facility] ([place]) Comment on above: Performed By: #### A 1C, FES, ADIFF, VIDH, FERR, URIC, GFR, ANEU, CBC, RFP #### [address] [address] #### C3C4A, SPE #### [address] [address] UA Blood Negative Normal Negative [facility] ([place]) Comment on above: Performed By: #### A 1C, FES, ADIFF, VIDH, FERR, URIC, GFR, ANEU, CBC, RFP #### [place] [address] #### C3C4A, SPE #### [place] [address] UA Leuk Est Trace Abnormal Negative [facility] ([place]) Comment on above: Performed By: #### A 1C, FES, ADIFF, VIDH, FERR, URIC, GFR, ANEU, CBC, RFP #### [address] [address] #### C3C4A, SPE #### [place] [id number] UA Nitrite Negative Normal Negative [facility] ([place]) Comment on above: Performed By: #### A 1C, FES, ADIFF, VIDH, FERR, URIC, GFR, ANEU, CBC, RFP #### [address] [address] #### C3C4A, SPE #### [address] [address] UA pH 5.5 Normal 5.0 - 8.0 [facility] ([place]) Comment on above: Performed By: #### A 1C, FES, ADIFF, VIDH, FERR, URIC, GFR, ANEU, CBC, RFP #### [address] [address] #### C3C4A, SPE #### [address] [address] UA Protein 30 mg/dL Normal Negative [facility] ([place]) Comment on above: Performed By: #### A 1C, FES, ADIFF, VIDH, FERR, URIC, GFR, ANEU, CBC, RFP #### [address] [address] #### C3C4A, SPE #### [address] [address] UA Spec Grav 1.015 Normal 1.015-1.02 5 [facility] ([place]) Comment on above: Performed By: #### A 1C, FES, ADIFF, VIDH, FERR, URIC, GFR, ANEU, CBC, RFP #### [address] [address] #### C3C4A, SPE #### [address] [address] UA Specimen Type Not Given Normal [facility] ([place]) Comment on above: Performed By: #### A 1C, FES, ADIFF, VIDH, FERR, URIC, GFR, ANEU, CBC, RFP #### [address] [address] #### C3C4A, SPE #### [address] [address] UA Urobilinogen 0.2 E.U./dL Normal 0.2-1.0 [facility] ([place]) Comment on above: Performed By: #### A 1C, FES, ADIFF, VIDH, FERR, URIC, GFR, ANEU, CBC, RFP #### [address] [address] #### C3C4A, SPE #### [address] [address] Urobilinogen (U) [Mass/Vol] Negative Normal Negative [facility] ([place]) Comment on above: Performed By: #### A 1C, FES, ADIFF, VIDH, FERR, URIC, GFR, ANEU, CBC, RFP #### [address] [address] #### C3C4A, SPE #### [address] [address] XR CHEST 1 VIEWon 12-01-2023 XR CHEST 1 VIEW ORIGINAL EXAMINATION: ONE XRAY VIEW OF THE CHEST12/01/2023 4:24 pm COMPARISON: Chest x-ray 05/11/2019 HISTORY: ORDERING SYSTEM PROVIDED HISTORY: Reason for Exam: fever, pain or tachypnea FINDINGS: Airspace opacification is present in the left lower lung. No pulmonary edema. No pleural effusion or visible pneumothorax. Reverse right shoulder arthroplasty and degenerative changes of the visible spine noted. IMPRESSION: Airspace opacities in the left lower lung likely infectious or inflammatory in etiology. Imaging follow-up to resolution is recommended. I have personally reviewed the images of this examination and agree with the resident's findings and interpretation. Interpreted by: Tony Barth MD Preliminary Report By: Mohsen Nowak Electronically signed By Tony Barth MD Dictated Date: 12/01/2023 4:32:43 PM Prelim Date: 12/01/2023 4:38:42 PM Sign Date: 12/01/2023 5:03:21 PM Ordering Provider: JESENIA Leach [facility] ([place]) Orthopedic Visit Reporton Orthopedic Visit Report Normal [facility] Shoulder min 2 Viewson 11-13 Shoulder min 2 Views Normal [facility] Orthopedic Visit Reporton Orthopedic Visit Report Normal [facility] Emergency Department Summary on 10-30-2023 Emergency Department Summary Normal [facility] Bedside Glucoseon 10-29-2023 FINGERSTICK GLU 112 mg/dL High 74-106 [facility] Comment on above: Result Comment: SKY GEMENT OF PATIENT CARE PER NURSING PROTOCOL Performed By: #### L 501.080 ####[facility] [address] [place], [address] FINGERSTICK GLU 120 mg/dL High 74-106 [facility] Comment on above: Result Comment: SKY GEMENT OF PATIENT CARE PER NURSING PROTOCOL Performed By: #### L 501.080 ####[facility] [address] [place], [address] Decalcification bone/plaqueo n 10-29-2023 Decalcification bone/plaque Normal [facility] Comment on above: Performed By: #### P DEC ####[facility] [address] [place], [place], [address] Discharge Instructionon 04-0 Discharge Instruction Normal [facility] Operative Reporton Operative Report Normal [facility] Shoulder One Viewon 10-29-19 24 Shoulder One View Normal [facility] Thin prep Papanicolaou smear with manual screeningOrdered By: Diana Love on 10-29-2023 Thin prep Papanicolaou smear with manual screening 112 mg/dL 74-106 [facility] Comment on above: MANAGEMENT OF PATIEN T CARE PER NURSING PROTOCOL Fructosamineon 09-23-2023 FRUCTOSAMINE 246 umol/L Normal 0-285 [facility] Comment on above: Result Comment: Publ ished reference interval for apparently healthysubjects between age 20 and 60 is 205 - 285 umol/L and in apoorly controlled diabetic population is 228 - 563 umol/Lwith a mean of 396 umol/L.Performed at: [address] [id number] Director: Brian Teague PhD, Phone: [phone] Performed By: #### L 100.0100, L3400.0100, L501.9985, M100.651, L500.2500, BTSPAT, L300.4310, L300.3900 ####[facility] [address] [place], [place], [id number] MRSA/SAID NASAL SCREENon MRSA+SAID SCRN Reason for Exam: PRE OP PREOP MRSA MRSA Negative S. AUREUS S. aureus Negative Normal [facility] Comment on above: Performed By: #### L 100.0100, L3400.0100, L501.9985, M100.651, L500.2500, BTSPAT, L300.4310, L300.3900 ####[facility] [address] [place], [address] 12 Lead EKGon 09-22-2023 12 Lead EKG Normal [facility] Absolute lymphocyte countOrd ered By: Diana Love on 09-22-2023 Lymphocytes Auto (Unsp spec) [#/Vol] 2.60 10*3/uL 0.83-4.51 [facility] Activated partial thrombopla stin time (aPTT) in platelet poor plasma by coagulation aOrdered By: Diana Love on 09-22-2023 aPTT Coag (PPP) [Time] 27.6 s 24.1-36.2 [facility] Automated lymphocyte count a s percentage of total leukocytesOrdered By: Diana Love on 09-22-2023 Lymphocytes/100 WBC Auto (Unsp spec) 32.5 % 19-41 [facility] Basic Metabolic Profile (BMP )on 09-22-2023 BUN/CRE 59.4 RATIO High 10-20 [facility] Comment on above: Performed By: #### L 100.0100, L3400.0100, L501.9985, M100.651, L500.2500, BTSPAT, L300.4310, L300.3900 ####[facility] [address] [place], [address] CA,Total 8.8 mg/dL Normal 8.5-10.1 [facility] Comment on above: Performed By: #### L 100.0100, L3400.0100, L501.9985, M100.651, L500.2500, BTSPAT, L300.4310, L300.3900 ####[facility] [address] [place], [address] Chloride [Moles/Vol] 108 mmol/L High 98-107 [facility] Comment on above: Performed By: #### L 100.0100, L3400.0100, L501.9985, M100.651, L500.2500, BTSPAT, L300.4310, L300.3900 ####[facility] [address] [place], [address] CO2 [Moles/Vol] 23.0 mmol/L Normal 21.0-32.0 [facility] Comment on above: Performed By: #### L 100.0100, L3400.0100, L501.9985, M100.651, L500.2500, BTSPAT, L300.4310, L300.3900 ####[facility] [address] [place], [address] Creatinine [Mass/Vol] 1.28 mg/dL High 0.55-1.02 [facility] Comment on above: Result Comment: The validity of the calculated GFR GFRAA in patients over70 years has not been determined. Clinical correlation isessential. Performed By: #### L 100.0100, L3400.0100, L501.9985, M100.651, L500.2500, BTSPAT, L300.4310, L300.3900 ####[facility] [address] [place], [address] EST GFR - AA 52 mL/min Low >60 [facility] Comment on above: Result Comment: Afri can Japanese GFR Calc Performed By: #### L 100.0100, L3400.0100, L501.9985, M100.651, L500.2500, BTSPAT, L300.4310, L300.3900 ####[facility] [address] [place], [address] GAP 6 Normal 5-15 [facility] Comment on above: Performed By: #### L 100.0100, L3400.0100, L501.9985, M100.651, L500.2500, BTSPAT, L300.4310, L300.3900 ####[facility] [address] [place], [address] GFR/1.73 sq M.predicted among non-blacks MDRD (S/P/Bld) [Vol rate/Area] 43 mL/min/{1.73_m2} Low >60 [facility] Comment on above: Result Comment: Non- GFR Calc Performed By: #### L 100.0100, L3400.0100, L501.9985, M100.651, L500.2500, BTSPAT, L300.4310, L300.3900 ####[facility] [address] [place], [address] Glucose [Mass/Vol] 77 mg/dL Normal 74-106 [facility] Comment on above: Performed By: #### L 100.0100, L3400.0100, L501.9985, M100.651, L500.2500, BTSPAT, L300.4310, L300.3900 ####[facility] [address] [place], [address] Potassium [Moles/Vol] 4.7 mmol/L Normal 3.5-5.1 [facility] Comment on above: Performed By: #### L 100.0100, L3400.0100, L501.9985, M100.651, L500.2500, BTSPAT, L300.4310, L300.3900 ####[facility] [address] [place], [place], [address] Sodium [Moles/Vol] 137 mmol/L Normal 136-145 [facility] Comment on above: Performed By: #### L 100.0100, L3400.0100, L501.9985, M100.651, L500.2500, BTSPAT, L300.4310, L300.3900 ####[facility] [address] [place], [address] Urea nitrogen [Mass/Vol] 76 mg/dL High 7-18 [facility] Comment on above: Performed By: #### L 100.0100, L3400.0100, L501.9985, M100.651, L500.2500, BTSPAT, L300.4310, L300.3900 ####[facility] [address] [place], [address] Basophil percentageOrdered B y: Diana Love on 09-22-2023 Basophils/100 WBC (Bld) 1.0 % 0-1 [facility] Chloride [Moles/Vol] 108 mmol/L 98-107 [facility] Eosinophils/100 WBC (Bld) 2.8 % 0-5 [facility] Glucose [Mass/Vol] 77 mg/dL 74-106 [facility] Hemoglobin (Bld) [Mass/Vol] 11.6 g/dL 12.0-15.0 [facility] Monocytes/100 WBC (Bld) 9.1 % 0-10 [facility] Neutrophils (Bld) [#/Vol] 4.3 10*3/uL 2.0-7.7 [facility] Neutrophils/100 WBC (Bld) 54.2 % 47-70 [facility] Potassium [Moles/Vol] 4.7 mmol/L 3.5-5.1 [facility] Sodium [Moles/Vol] 137 mmol/L 136-145 [facility] WBC (Bld) [#/Vol] 8.0 10*3/uL 4.4-11.0 [facility] CBC W/Diff, Automatedon 08-29 Absolute Lymph 2.60 X10 3/uL Normal 0.83-4.51 [facility] Comment on above: Performed By: #### L 100.0100, L3400.0100, L501.9985, M100.651, L500.2500, BTSPAT, L300.4310, L300.3900 ####[facility] [address] [place], [address] Absolute Neut 4.3 X10 3/uL Normal 2.0-7.7 [facility] Comment on above: Performed By: #### L 100.0100, L3400.0100, L501.9985, M100.651, L500.2500, BTSPAT, L300.4310, L300.3900 ####[facility] [address] [place], [address] Basophils/100 WBC (Bld) 1.0 % Normal 0-1 [facility] Comment on above: Performed By: #### L 100.0100, L3400.0100, L501.9985, M100.651, L500.2500, BTSPAT, L300.4310, L300.3900 ####[facility] [address] [place], [address] Eosinophils/100 WBC (Bld) 2.8 % Normal 0-5 [facility] Comment on above: Performed By: #### L 100.0100, L3400.0100, L501.9985, M100.651, L500.2500, BTSPAT, L300.4310, L300.3900 ####[facility] [address] [place], [address] Erythrocyte distribution width (RBC) [Ratio] 15.2 % High 11.6-14.6 [facility] Comment on above: Performed By: #### L 100.0100, L3400.0100, L501.9985, M100.651, L500.2500, BTSPAT, L300.4310, L300.3900 ####[facility] [address] [place], [address] Hematocrit (Bld) [Volume fraction] 37.7 % Normal 37-47 [facility] Comment on above: Performed By: #### L 100.0100, L3400.0100, L501.9985, M100.651, L500.2500, BTSPAT, L300.4310, L300.3900 ####[facility] [address] [place], [address] Hemoglobin (Bld) [Mass/Vol] 11.6 g/dL Low 12.0-15.0 [facility] Comment on above: Performed By: #### L 100.0100, L3400.0100, L501.9985, M100.651, L500.2500, BTSPAT, L300.4310, L300.3900 ####[facility] [address] [place], [address] IG% 0.400 Normal 0.0-0.9 [facility] Comment on above: Result Comment: IG% - Immature Granulocytes (promyelocytes, myelocytes andmetamyelocytes) > 1% indicates that a LEFT SHIFT is Present. Performed By: #### L 100.0100, L3400.0100, L501.9985, M100.651, L500.2500, BTSPAT, L300.4310, L300.3900 ####[facility] [address] [place], [address] Lymphocytes/100 WBC (Bld) 32.5 % Normal 19-41 [facility] Comment on above: Performed By: #### L 100.0100, L3400.0100, L501.9985, M100.651, L500.2500, BTSPAT, L300.4310, L300.3900 ####[facility] [address] [place], [address] MCH (RBC) [Entitic mass] 27.8 pg Normal 27.0-32.0 [facility] Comment on above: Performed By: #### L 100.0100, L3400.0100, L501.9985, M100.651, L500.2500, BTSPAT, L300.4310, L300.3900 ####[facility] [address] [place], [address] MCHC (RBC) [Mass/Vol] 30.8 g/dL Low 32-36 [facility] Comment on above: Performed By: #### L 100.0100, L3400.0100, L501.9985, M100.651, L500.2500, BTSPAT, L300.4310, L300.3900 ####[facility] [address] [place], [address] MCV (RBC) [Entitic vol] 90.4 fL Normal 81-99 [facility] Comment on above: Performed By: #### L 100.0100, L3400.0100, L501.9985, M100.651, L500.2500, BTSPAT, L300.4310, L300.3900 ####[facility] [address] [place], [address] Monocytes/100 WBC (Bld) 9.1 % Normal 0-10 [facility] Comment on above: Performed By: #### L 100.0100, L3400.0100, L501.9985, M100.651, L500.2500, BTSPAT, L300.4310, L300.3900 ####[facility] [address] [place], [address] Neutrophils/100 WBC (Bld) 54.2 % Normal 47-70 [facility] Comment on above: Performed By: #### L 100.0100, L3400.0100, L501.9985, M100.651, L500.2500, BTSPAT, L300.4310, L300.3900 ####[facility] [address] [place], [address] Nucleated RBC (Bld) [#/Vol] 0 10*3/uL Normal 0-5 [facility] Comment on above: Performed By: #### L 100.0100, L3400.0100, L501.9985, M100.651, L500.2500, BTSPAT, L300.4310, L300.3900 ####[facility] [address] [place], [address] Platelet mean volume (Bld) [Entitic vol] 9.1 fL Normal 6.2-12.0 [facility] Comment on above: Performed By: #### L 100.0100, L3400.0100, L501.9985, M100.651, L500.2500, BTSPAT, L300.4310, L300.3900 ####[facility] [address] [place], [address] Platelets (Bld) [#/Vol] 380 10*3/uL Normal 150-450 [facility] Comment on above: Performed By: #### L 100.0100, L3400.0100, L501.9985, M100.651, L500.2500, BTSPAT, L300.4310, L300.3900 ####[facility] [address] [place], [address] RBC (Bld) [#/Vol] 4.17 10*6/uL Low 4.2-5.4 [facility] Comment on above: Performed By: #### L 100.0100, L3400.0100, L501.9985, M100.651, L500.2500, BTSPAT, L300.4310, L300.3900 ####[facility] [address] [place], [address] RDW SD 50.4 fl High 35.1-43.9 [facility] Comment on above: Performed By: #### L 100.0100, L3400.0100, L501.9985, M100.651, L500.2500, BTSPAT, L300.4310, L300.3900 ####[facility] [address] [place], [place], [id number] WBC (Bld) [#/Vol] 8.0 10*3/uL Normal 4.4-11.0 [facility] Comment on above: Performed By: #### L 100.0100, L3400.0100, L501.9985, M100.651, L500.2500, BTSPAT, L300.4310, L300.3900 ####[facility] [address] [facility] [place], [place], [id number] Determination of erythrocyte mean corpuscular volume (MCV)Ordered By: Diana Love on 09-22-2023 MCV (RBC) [Entitic vol] 90.4 fL 81-99 [facility] Erythrocyte distribution wid th ratioOrdered By: Diana Love on 09-22-2023 Erythrocyte distribution width (RBC) [Ratio] 15.2 % 11.6-14.6 [facility] Erythrocyte distribution wid th standard deviationOrdered By: Diana Love on 09-22-2023 Erythrocyte distribution width (RBC) [Entitic vol] 50.4 fL 35.1-43.9 [facility] Hematocrit Auto (Bld) [Volum e fraction]Ordered By: Diana Love on 09-22-2023 Hematocrit (Bld) [Volume fraction] 37.7 % 37-47 [facility] Hemoglobin A1con 09-22-2023 HbA1c (Bld) [Mass fraction] 6.5 % High 3.8-5.6 [facility] Comment on above: Result Comment: Norm al < 5.7 % Prediabetic 5.7 - 6.4 % Diabetic >or= 6.5 % Please note range changes. Performed By: #### L 100.0100, L3400.0100, L501.9985, M100.651, L500.2500, BTSPAT, L300.4310, L300.3900 ####[facility] [address] [place], [address] Immature granulocytes/100 WB C Auto (Bld)Ordered By: Diana Love on 09-22-2023 Immature granulocytes/100 WBC (Bld) 0.400 % 0.0-0.9 [facility] Comment on above: IG% - Immature Granu locytes (promyelocytes, myelocytes and metamyelocytes) > 1% indicates that a LEFT SHIFT is Present. Laboratory - Chemistry and C hemistry - challengeOrdered By: Diana Love on 09-22-2023 CO2 [Moles/Vol] 23.0 mmol/L 21.0-32.0 [facility] Urea nitrogen/Creatinine [Mass ratio] 59.4 mg/mg 10-20 [facility] Laboratory - Chemistry and C hemistry - challengeOrdered By: Hector Castro on 09-22-2023 Magnesium [Mass/Vol] 2.5 mg/dL 1.6-2.6 [facility] Laboratory - CoagulationOrde red By: Diana Love on 09-22-2023 INR Coag (Bld) [Relative time] 1.0 {INR} [facility] PT Coag (PPP) [Time] 13.2 s 11.7-14.9 [facility] Laboratory - Hematology and Cell countsOrdered By: Diana Love on 09-22-2023 MCH (RBC) [Entitic mass] 27.8 pg 27.0-32.0 [facility] MCHC (RBC) [Mass/Vol] 30.8 g/dL 32-36 [facility] Nucleated RBC/100 WBC (Bld) [Ratio] 0 % 0-5 [facility] Platelet mean volume (Bld) [Entitic vol] 9.1 fL 6.2-12.0 [facility] Platelets (Bld) [#/Vol] 380 10*3/uL 150-450 [facility] Magnesiumon 09-22-2023 Magnesium [Mass/Vol] 2.5 mg/dL Normal 1.6-2.6 [facility] Comment on above: Performed By: #### L 501.5870 ####[facility] [address] [place], [address] No Panel InformationOrdered By: Diana Love on 09-22-2023 Estimated GFR (MDRD) Amer 52 mL/min >60 [facility] Comment on above: GFR Calc Estimated GFR (MDRD) Non-Af Amer 43 mL/min >60 [facility] Comment on above: Non- GFR Calc Fructosamine 246 umol/L 0-285 [facility] Comment on above: Published reference interval for apparently healthysubjects between age 20 and 60 is 205 - 285 umol/L and in apoorly controlled diabetic population is 228 - 563 umol/Lwith a mean of 396 umol/L.Performed at: [employer] [address] [id number] Director: Brian Teague PhD, Phone: [phone] Nasal Screen MRSA/MSSA [facility] Orthopedic Visit Reporton Orthopedic Visit Report Normal [facility] Partial Thromboplast Timeon 09-22-2023 aPTT Coag (Bld) [Time] 27.6 s Normal 24.1-36.2 [facility] Comment on above: Performed By: #### L 100.0100, L3400.0100, L501.9985, M100.651, L500.2500, BTSPAT, L300.4310, L300.3900 ####[facility] [address] [place], [address] Prothrombin Time w/INRon INR Coag (PPP) [Relative time] 1.0 {INR} Normal [facility] Comment on above: Performed By: #### L 100.0100, L3400.0100, L501.9985, M100.651, L500.2500, BTSPAT, L300.4310, L300.3900 ####[facility] [address] [place], [address] PT Coag (PPP) [Time] 13.2 s Normal 11.7-14.9 [facility] Comment on above: Performed By: #### L 100.0100, L3400.0100, L501.9985, M100.651, L500.2500, BTSPAT, L300.4310, L300.3900 ####[facility] [address] [place], [place], [id number] RBC Auto (Bld) [#/Vol]Ordere d By: Diana Love on 09-22-2023 RBC (Bld) [#/Vol] 4.17 10*6/uL 4.2-5.4 [facility] Serum or plasma calcium beronica urement (mass/volume)Ordered By: Diana Love on 09-22-2023 Calcium [Mass/Vol] 8.8 mg/dL 8.5-10.1 [facility] Serum or plasma creatinine m easurement (mass/volume)Ordered By: Diana Love on 09-22-2023 Creatinine [Mass/Vol] 1.28 mg/dL 0.55-1.02 [facility] Comment on above: The validity of the calculated GFR & GFRAA in patients over 70 years has not been determined. Clinical correlation is essential. Serum or plasma urea nitroge n measurement (mass/volume)Ordered By: Diana Love on 09-22-2023 Urea nitrogen [Mass/Vol] 76 mg/dL 7-18 [facility] Thin prep Papanicolaou smear with manual screeningOrdered By: Diana Love on 09-22-2023 Thin prep Papanicolaou smear with manual screening 6 5-15 [facility] Type AND Screen - PAT ONLYon 09-22-2023 ABO and Rh group Nom (Bld) Blood group AB Rh(D) positive Normal [facility] Comment on above: Order Comment: Surge ry Date: 10/01/23Reason for Laboratory Test [id number] TOTAL SHOULDER ARTHROPLASTY Performed By: #### L 100.0100, L3400.0100, L501.9985, M100.651, L500.2500, BTSPAT, L300.4310, L300.3900 ####[facility] [address] [place], [address] Whole blood hemoglobin A1c/t otal hemoglobin ratio (mass fraction)Ordered By: Diana Love on 09-22-2023 HbA1c (Bld) [Mass fraction] 6.5 % 3.8-5.6 [facility] Comment on above: Normal < 5.7 % Predi abetic 5.7 - 6.4 % Diabetic >or= 6.5 % Please note range changes. .Auto Diffon 09-03-2023 Basophil, Absolute 0.1 10 3/mcL Normal 0.0-0.2 [facility] ([place] Comment on above: Performed By: #### A 1C, FES, ADIFF, VIDH, FERR, URIC, GFR, ANEU, CBC, RFP #### [address] [address] #### C3C4A, SPE #### [address] [address] Basophils/100 WBC (Bld) 0.8 % Normal 0.0-2.5 [facility] ([place]) Comment on above: Performed By: #### A 1C, FES, ADIFF, VIDH, FERR, URIC, GFR, ANEU, CBC, RFP #### [address] [address] #### C3C4A, SPE #### [address] [address] Eosinophil, Absolute 0.3 10 3/mcL Normal 0.0-0.4 [facility] ([place]) Comment on above: Performed By: #### A 1C, FES, ADIFF, VIDH, FERR, URIC, GFR, ANEU, CBC, RFP #### [address] [address] #### C3C4A, SPE #### [address] [address] Eosinophils/100 WBC (Bld) 3.7 % Normal 0.0-7.0 [facility] ([place] Comment on above: Performed By: #### A 1C, FES, ADIFF, VIDH, FERR, URIC, GFR, ANEU, CBC, RFP #### [address] [address] #### C3C4A, SPE #### [address] [address] Lymphocyte, Absolute 2.5 10 3/mcL Normal 0.8-3.9 [facility] ([place]) Comment on above: Performed By: #### A 1C, FES, ADIFF, VIDH, FERR, URIC, GFR, ANEU, CBC, RFP #### [address] [address] #### C3C4A, SPE #### [address] [address] Lymphocytes/100 WBC (Bld) 27.7 % Normal 10.0-50.0 [facility] ([place] Comment on above: Performed By: #### A 1C, FES, ADIFF, VIDH, FERR, URIC, GFR, ANEU, CBC, RFP #### [place] [address] #### C3C4A, SPE #### [address] [address] Monocyte, Absolute 0.8 10 3/mcL Normal 0.2-1.0 [facility] ([place] Comment on above: Performed By: #### A 1C, FES, ADIFF, VIDH, FERR, URIC, GFR, ANEU, CBC, RFP #### [address] [address] #### C3C4A, SPE #### [address] [address] Monocytes/100 WBC (Bld) 8.8 % Normal 1.7-13.0 [facility] ([place] Comment on above: Performed By: #### A 1C, FES, ADIFF, VIDH, FERR, URIC, GFR, ANEU, CBC, RFP #### [address] [address] #### C3C4A, SPE #### [address] [address] Neutrophils/100 WBC (Bld) 59.0 % Normal 37.0-80.0 [facility] ([place] Comment on above: Performed By: #### A 1C, FES, ADIFF, VIDH, FERR, URIC, GFR, ANEU, CBC, RFP #### [address] [address] #### C3C4A, SPE #### [address] [address] .GFRon 09-03-2023 GFR 54 ml/min/1.73sqm Normal [facility] ([place]) Comment on above: Result Comment: GFR Population mean for , Non- Americans Ages 20-29 = 116 mL/min/1.73 sq.m. Ages 30-39 = 107 mL/min/1.73 sq.m. Ages 40-49 = 99 mL/min/1.73 sq.m. Ages 50-59 = 93 mL/min/1.73 sq.m. Ages 60-69 = 85 mL/min/1.73 sq.m. Ages 70+ = 75 mL/min/1.73 sq.m. Chronic Kidney Disease: Less than 60 mL/min/1.73 square meters End Stage Renal Disease: Less than 15 mL/min/1.73 square meters Performed By: #### A 1C, FES, ADIFF, VIDH, FERR, URIC, GFR, ANEU, CBC, RFP #### [address] [address] #### C3C4A, SPE #### [address] [address] GFR Non- 45 ml/min/1.73sqm Normal [facility] ([place]) Comment on above: Result Comment: GFR Population mean for , Non- Americans Ages 20-29 = 116 mL/min/1.73 sq.m. Ages 30-39 = 107 mL/min/1.73 sq.m. Ages 40-49 = 99 mL/min/1.73 sq.m. Ages 50-59 = 93 mL/min/1.73 sq.m. Ages 60-69 = 85 mL/min/1.73 sq.m. Ages 70+ = 75 mL/min/1.73 sq.m. Chronic Kidney Disease: Less than 60 mL/min/1.73 square meters End Stage Renal Disease: Less than 15 mL/min/1.73 square meters Performed By: #### A 1C, FES, ADIFF, VIDH, FERR, URIC, GFR, ANEU, CBC, RFP #### [address] [address] #### C3C4A, SPE #### [address] [address] .NEUABSon 09-03-2023 Neutrophil, Absolute 5.3 10 3/mcL Normal 2.9-6.2 [facility] ([place]) Comment on above: Performed By: #### A 1C, FES, ADIFF, VIDH, FERR, URIC, GFR, ANEU, CBC, RFP #### [place] [id number] #### C3C4A, SPE #### [place] [address] CBCon 09-03-2023 Erythrocyte distribution width (RBC) [Ratio] 16.3 % High 11.5-14.5 [facility] ([place] Comment on above: Performed By: #### A 1C, FES, ADIFF, VIDH, FERR, URIC, GFR, ANEU, CBC, RFP #### [place] [address] #### C3C4A, SPE #### [place] [address] Hematocrit (Bld) [Volume fraction] 36.0 % Low 37.0-47.0 [facility] ([place] Comment on above: Performed By: #### A 1C, FES, ADIFF, VIDH, FERR, URIC, GFR, ANEU, CBC, RFP #### [place] [address] #### C3C4A, SPE #### [place] [address] Hgb 11.7 G/dL Low 12.0-16.0 [facility] ([place] Comment on above: Performed By: #### A 1C, FES, ADIFF, VIDH, FERR, URIC, GFR, ANEU, CBC, RFP #### [place] [address] #### C3C4A, SPE #### [address] [address] MCH (RBC) [Entitic mass] 28.3 pg Normal 27.0-31.2 [facility] ([place] Comment on above: Performed By: #### A 1C, FES, ADIFF, VIDH, FERR, URIC, GFR, ANEU, CBC, RFP #### [place] [address] #### C3C4A, SPE #### [place] [address] MCHC 32.6 G/dL Low 33.0-37.0 [facility] ([place] Comment on above: Performed By: #### A 1C, FES, ADIFF, VIDH, FERR, URIC, GFR, ANEU, CBC, RFP #### [place] [address] #### C3C4A, SPE #### [place] [address] MCV (RBC) [Entitic vol] 86.6 fL Normal 80.0-94.0 [facility] ([place] Comment on above: Performed By: #### A 1C, FES, ADIFF, VIDH, FERR, URIC, GFR, ANEU, CBC, RFP #### [place] [address] #### C3C4A, SPE #### [place] [address] Platelet 366 10 3/mcL Normal 130-400 [facility] ([place] Comment on above: Performed By: #### A 1C, FES, ADIFF, VIDH, FERR, URIC, GFR, ANEU, CBC, RFP #### [place] [address] #### C3C4A, SPE #### [place] [address] Platelet mean volume (Bld) [Entitic vol] 7.3 fL Low 7.4-10.4 [facility] ([place] Comment on above: Performed By: #### A 1C, FES, ADIFF, VIDH, FERR, URIC, GFR, ANEU, CBC, RFP #### [place] [address] #### C3C4A, SPE #### [place] [address] RBC 4.15 10 6/mcL Low 4.20-5.40 [facility] ([place] Comment on above: Performed By: #### A 1C, FES, ADIFF, VIDH, FERR, URIC, GFR, ANEU, CBC, RFP #### [place] [address] #### C3C4A, SPE #### [place] [address] WBC 9.0 10 3/mcL Normal 4.6-10.8 [facility] ([place] Comment on above: Performed By: #### A 1C, FES, ADIFF, VIDH, FERR, URIC, GFR, ANEU, CBC, RFP #### [place] [address] #### C3C4A, SPE #### [place] [address] CMPon 09-03-2023 AST [Catalytic activity/Vol] 17 U/L Normal 10-40 [facility] ([place] Comment on above: Performed By: #### A 1C, FES, ADIFF, VIDH, FERR, URIC, GFR, ANEU, CBC, RFP #### [place] [address] #### C3C4A, SPE #### [place] [address] Albumin Level 3.5 G/dL Normal 3.4-4.8 [facility] ([place] Comment on above: Performed By: #### A 1C, FES, ADIFF, VIDH, FERR, URIC, GFR, ANEU, CBC, RFP #### [place] [address] [place], [place] [address] #### C3C4A, SPE #### [address] [address] Albumin/Globulin [Mass ratio] 0.9 {ratio} Low 1.1-2.5 [facility] ([place] Comment on above: Performed By: #### A 1C, FES, ADIFF, VIDH, FERR, URIC, GFR, ANEU, CBC, RFP #### [place] [address] #### C3C4A, SPE #### [address] [address] ALP [Catalytic activity/Vol] 69 U/L Normal 40-135 [facility] ([place] Comment on above: Performed By: #### A 1C, FES, ADIFF, VIDH, FERR, URIC, GFR, ANEU, CBC, RFP #### [place] [address] #### C3C4A, SPE #### [place] [address] ALT [Catalytic activity/Vol] 25 U/L Normal 14-59 [facility] ([place] Comment on above: Performed By: #### A 1C, FES, ADIFF, VIDH, FERR, URIC, GFR, ANEU, CBC, RFP #### [place] [address] #### C3C4A, SPE #### [place] [id number] Bili Total 0.2 mg/dL Normal 0.2-1.0 [facility] ([place] Comment on above: Result Comment: Use of this assay is not recommended for patients undergoing treatment with eltrombopag due to the potential for falsely elevated results. Performed By: #### A 1C, FES, ADIFF, VIDH, FERR, URIC, GFR, ANEU, CBC, RFP #### [place] [address] #### C3C4A, SPE #### [address] [address] BUN/Creatinine Ratio 56 ratio High 7-27 [facility] ([place] Comment on above: Performed By: #### A 1C, FES, ADIFF, VIDH, FERR, URIC, GFR, ANEU, CBC, RFP #### [address] [address] #### C3C4A, SPE #### [address] [address] Calcium [Mass/Vol] 9.4 mg/dL Normal 8.4-10.2 [facility] ([place]) Comment on above: Performed By: #### A 1C, FES, ADIFF, VIDH, FERR, URIC, GFR, ANEU, CBC, RFP #### [address] [address] #### C3C4A, SPE #### [address] [address] Chloride [Moles/Vol] 99 mmol/L Normal 98-107 [facility] ([place] Comment on above: Performed By: #### A 1C, FES, ADIFF, VIDH, FERR, URIC, GFR, ANEU, CBC, RFP #### [address] [address] #### C3C4A, SPE #### [address] [address] CO2 [Moles/Vol] 27 mmol/L Normal 23-31 [facility] ([place] Comment on above: Performed By: #### A 1C, FES, ADIFF, VIDH, FERR, URIC, GFR, ANEU, CBC, RFP #### [address] [address] #### C3C4A, SPE #### [address] [address] Creatinine [Mass/Vol] 1.17 mg/dL High 0.55-1.02 [facility] ([place]) Comment on above: Performed By: #### A 1C, FES, ADIFF, VIDH, FERR, URIC, GFR, ANEU, CBC, RFP #### [place] [address] #### C3C4A, SPE #### [address] [address] Electrolyte Balance 9.0 mEq/L Normal 4.0-15.0 [facility] ([place]) Comment on above: Performed By: #### A 1C, FES, ADIFF, VIDH, FERR, URIC, GFR, ANEU, CBC, RFP #### [place] [address] #### C3C4A, SPE #### [address] [address] Globulin 3.7 G/dL Normal [facility] ([place] Comment on above: Performed By: #### A 1C, FES, ADIFF, VIDH, FERR, URIC, GFR, ANEU, CBC, RFP #### [place] [address] #### C3C4A, SPE #### [place] [address] Glucose [Mass/Vol] 91 mg/dL Normal 83-110 [facility] ([place] Comment on above: Performed By: #### A 1C, FES, ADIFF, VIDH, FERR, URIC, GFR, ANEU, CBC, RFP #### [place] [address] #### C3C4A, SPE #### [place] [address] Potassium [Moles/Vol] 5.2 mmol/L High 3.5-5.1 [facility] ([place]) Comment on above: Performed By: #### A 1C, FES, ADIFF, VIDH, FERR, URIC, GFR, ANEU, CBC, RFP #### [place] [address] #### C3C4A, SPE #### [place] [address] Sodium [Moles/Vol] 135 mmol/L Low 136-145 [facility] ([place]) Comment on above: Performed By: #### A 1C, FES, ADIFF, VIDH, FERR, URIC, GFR, ANEU, CBC, RFP #### [address] [id number] #### C3C4A, SPE #### [address] [address] Total Protein 7.2 G/dL Normal 6.4-8.2 [facility] ([place]) Comment on above: Performed By: #### A 1C, FES, ADIFF, VIDH, FERR, URIC, GFR, ANEU, CBC, RFP #### [address] [address] #### C3C4A, SPE #### [address] [address] Urea nitrogen [Mass/Vol] 65 mg/dL High 7-18 [facility] ([place]) Comment on above: Performed By: #### A 1C, FES, ADIFF, VIDH, FERR, URIC, GFR, ANEU, CBC, RFP #### [address] [address] #### C3C4A, SPE #### [address] [address] .GFRon 07-15-2023 GFR 49 ml/min/1.73sqm Normal [facility] ([place]) Comment on above: Result Comment: GFR Population mean for , Non- Americans Ages 20-29 = 116 mL/min/1.73 sq.m. Ages 30-39 = 107 mL/min/1.73 sq.m. Ages 40-49 = 99 mL/min/1.73 sq.m. Ages 50-59 = 93 mL/min/1.73 sq.m. Ages 60-69 = 85 mL/min/1.73 sq.m. Ages 70+ = 75 mL/min/1.73 sq.m. Chronic Kidney Disease: Less than 60 mL/min/1.73 square meters End Stage Renal Disease: Less than 15 mL/min/1.73 square meters Performed By: #### A 1C, FES, ADIFF, VIDH, FERR, URIC, GFR, ANEU, CBC, RFP #### [address] [address] #### C3C4A, SPE #### [address] [address] GFR Non- 40 ml/min/1.73sqm Normal [facility] ([place]) Comment on above: Result Comment: GFR Population mean for , Non- Americans Ages 20-29 = 116 mL/min/1.73 sq.m. Ages 30-39 = 107 mL/min/1.73 sq.m. Ages 40-49 = 99 mL/min/1.73 sq.m. Ages 50-59 = 93 mL/min/1.73 sq.m. Ages 60-69 = 85 mL/min/1.73 sq.m. Ages 70+ = 75 mL/min/1.73 sq.m. Chronic Kidney Disease: Less than 60 mL/min/1.73 square meters End Stage Renal Disease: Less than 15 mL/min/1.73 square meters Performed By: #### A 1C, FES, ADIFF, VIDH, FERR, URIC, GFR, ANEU, CBC, RFP #### [address] [address] #### C3C4A, SPE #### [place] [id number] BMPon 07-15-2023 BUN/Creatinine Ratio 52 ratio High 7-27 [facility] ([place]) Comment on above: Performed By: #### A 1C, FES, ADIFF, VIDH, FERR, URIC, GFR, ANEU, CBC, RFP #### [place] [id number] #### C3C4A, SPE #### [address] [address] Calcium [Mass/Vol] 9.3 mg/dL Normal 8.4-10.2 [facility] ([place]) Comment on above: Performed By: #### A 1C, FES, ADIFF, VIDH, FERR, URIC, GFR, ANEU, CBC, RFP #### [place] [address] #### C3C4A, SPE #### [address] [address] Chloride [Moles/Vol] 103 mmol/L Normal 98-107 [facility] ([place]) Comment on above: Performed By: #### A 1C, FES, ADIFF, VIDH, FERR, URIC, GFR, ANEU, CBC, RFP #### [address] [address] #### C3C4A, SPE #### [address] [address] CO2 [Moles/Vol] 25 mmol/L Normal 23-31 [facility] ([place]) Comment on above: Performed By: #### A 1C, FES, ADIFF, VIDH, FERR, URIC, GFR, ANEU, CBC, RFP #### [address] [address] #### C3C4A, SPE #### [address] [address] Creatinine [Mass/Vol] 1.28 mg/dL High 0.55-1.02 [facility] ([place]) Comment on above: Performed By: #### A 1C, FES, ADIFF, VIDH, FERR, URIC, GFR, ANEU, CBC, RFP #### [address] [address] #### C3C4A, SPE #### [address] [address] Electrolyte Balance 12.0 mEq/L Normal 4.0-15.0 [facility] ([place]) Comment on above: Performed By: #### A 1C, FES, ADIFF, VIDH, FERR, URIC, GFR, ANEU, CBC, RFP #### [address] [address] #### C3C4A, SPE #### [address] [address] Glucose [Mass/Vol] 129 mg/dL High 83-110 [facility] ([place]) Comment on above: Performed By: #### A 1C, FES, ADIFF, VIDH, FERR, URIC, GFR, ANEU, CBC, RFP #### [address] [address] #### C3C4A, SPE #### [address] [address] Potassium [Moles/Vol] 5.3 mmol/L High 3.5-5.1 [facility] ([place]) Comment on above: Performed By: #### A 1C, FES, ADIFF, VIDH, FERR, URIC, GFR, ANEU, CBC, RFP #### [address] [address] #### C3C4A, SPE #### [address] [address] Sodium [Moles/Vol] 140 mmol/L Normal 136-145 [facility] ([place]) Comment on above: Performed By: #### A 1C, FES, ADIFF, VIDH, FERR, URIC, GFR, ANEU, CBC, RFP #### [place] [address] #### C3C4A, SPE #### [address] [address] Urea nitrogen [Mass/Vol] 66 mg/dL High 7-18 [facility] ([place]) Comment on above: Performed By: #### A 1C, FES, ADIFF, VIDH, FERR, URIC, GFR, ANEU, CBC, RFP #### [place] [address] #### C3C4A, SPE #### [place] [id number] BD BONE DENSITY DEXA AXIAL S Josiane 05-30-2023 BD BONE DENSITY DEXA AXIAL SKELETON ORIGINAL EXAMINATION: BONE DENSITOMETRY 05/30/2023 3:38 pm TECHNIQUE: A bone density dual x-ray absorptiometry (DEXA) scan was performed of the lumbar spine and left hip. COMPARISON: 05/05/2020. HISTORY: ORDERING SYSTEM PROVIDED HISTORY: Reason for Exam: Osteoporosis Screening FINDINGS: T Score Left Femoral Neck: -1.3 Left Femoral Neck: 0.702 (g/cm2) T Score Left Hip: -0.5 Left Hip: 0.887 (g/cm2) T Score Lumbar Spine: 1.2 Lumbar Spine: 1.176 (g/cmd2) BMD Change from previous Hip: 1.5% BMD Change from previous Lumbar Spine: 0.7% FRAX: 10 year fracture risk assessment Major osteoporotic fracture: 12% Hip fracture: 2.8% IMPRESSION: Osteopenia by WHO criteria. *By the World Health Organization criteria: (Comparing with young normal sex matched population) - Normal: T-score at or above -1 SD (standard deviation) - Osteopenia: T-score between -1 and -2.5 SD - Osteoporosis: T-score at or below -2.5 SD Interpreted by: Kd Ortiz DO Preliminary Report By: Kd Ortiz DO Electronically signed By Kd Ortiz DO Dictated Date: 05/30/2023 4:14:12 PM Prelim Date: 05/30/2023 4:15:22 PM Sign Date: 05/30/2023 4:15:22 PM Ordering Provider: JAMIE Leach [facility] ([place]) CBC W Auto Differential pane l (Bld)Ordered By: Krista Iraheta on 05-18-2023 Basophils (Bld) [#/Vol] 0.1 10*3/uL 0.0 - 0.2 10*3/uL [facility] Basophils/100 WBC (Bld) 0.6 % 0.0 - 2.0 % [facility] Eosinophils (Bld) [#/Vol] 0.1 10*3/uL 0.0 - 0.5 10*3/uL [facility] Eosinophils/100 WBC (Bld) 1.0 % 1.0 - 6.0 % [facility] Erythrocyte distribution width (RBC) [Ratio] 18.9 % High 11.5 - 14.5 % [employer] [facility] Hematocrit (Bld) [Volume fraction] 41.3 % 35.0 - 47.0 % [facility] Hemoglobin (Bld) [Mass/Vol] 12.9 g/dL 11.7 - 16.0 g/dL [facility] Interpretation and review of laboratory results Abnormal [facility] Lymphocytes (Bld) [#/Vol] 1.7 10*3/uL 1.0 - 4.3 10*3/uL [facility] Lymphocytes/100 WBC (Bld) 12.2 % Low 20.0 - 40.0 % [facility] MCH (RBC) [Entitic mass] 25.1 pg Low 26.0 - 34.0 pg [facility] MCHC (RBC) [Mass/Vol] 31.2 % Low 32.0 - 36.0 % [facility] MCV (RBC) [Entitic vol] 80.7 fL 80.0 - 98.0 fL [facility] Monocytes (Bld) [#/Vol] 1.0 10*3/uL High 0.0 - 0.8 10*3/uL [facility] Monocytes/100 WBC (Bld) 7.3 % 2.0 - 10.0 % [facility] Neutrophils (Bld) [#/Vol] 10.9 10*3/uL High 1.8 - 7.0 10*3/uL [facility] Neutrophils/100 WBC (Bld) 78.9 % 40.0 - 80.0 % [facility] Nucleated RBC/100 WBC (Bld) [Ratio] 0.0 % [facility] Platelet mean volume (Bld) [Entitic vol] 7.6 fL 7.4 - 12.4 fL [facility] Platelets (Bld) [#/Vol] 444 10*3/uL High 140 - 440 10*3/uL [facility] RBC (Bld) [#/Vol] 5.12 10*6/uL 3.8 - 5.20 10*6/uL [facility] WBC (Bld) [#/Vol] 13.8 10*3/uL High 3.6 - 10.7 10*3/uL [facility] Comprehensive metabolic 1998 panelon 05-18-2023 Albumin [Mass/Vol] 4.6 g/dL 3.5 - 5.0 g/dL [facility] ALP [Catalytic activity/Vol] 67 U/L 38 - 126 U/L [facility] ALT [Catalytic activity/Vol] 27 U/L 0 - 34 U/L [facility] Anion gap [Moles/Vol] 11 mmol/L 3 - 13 mmol/L [facility] AST [Catalytic activity/Vol] 52 U/L High 15 - 46 U/L [facility] Bilirubin [Mass/Vol] 0.4 mg/dL 0.2 - 1 .3 mg/dL [facility] Calcium [Mass/Vol] 10.2 mg/dL 8.4 - 10. 4 mg/dL [facility] Chloride [Moles/Vol] 98 mmol/L 98 - 10 7 mmol/L [facility] CO2 [Moles/Vol] 26 mmol/L 22 - 30 mmol/L [facility] Creatinine [Mass/Vol] 1.38 mg/dL High 0.52 - 1.04 mg/dL [facility] GFR/1.73 sq M.predicted MDRD (S/P/Bld) [Vol rate/Area] 38.8 mL/min/{1.73_m2} Low - PINF [facility] Comment on above: Calculation based on the Chronic Kidney Disease Epidemiology Collaboration (CKD-EPI) equation refit without adjustment for race Glucose [Mass/Vol] 287 mg/dL High 70 - 100 mg/dL [facility] Interpretation and review of laboratory results Abnormal [facility] Potassium [Moles/Vol] 5.0 mmol/L 3.5 - 5.1 mmol/L [facility] Protein [Mass/Vol] 8.3 g/dL High 6.3 - 8.2 g/dL [facility] Sodium [Moles/Vol] 135 mmol/L 135 - 145 mmol/L [facility] Urea nitrogen [Mass/Vol] 59 mg/dL High 7 - 17 mg/dL [facility] Laboratory - Chemistry and C hemistry - challengeon 05-18-2023 Troponin I.cardiac [Mass/Vol] ng/mL [facility] - 0.034 ng/mL [facility] Troponin I.cardiac [Mass/Vol] ng/mL [facility] - 0.034 ng/mL [facility] Lactate [Moles/Vol] 1.6 mmol/L 0.7 - 2. 0 mmol/L [facility] Laboratory - Microbiology an d Antimicrobial susceptibilityon 05-18-2023 FLUAV RNA KELSI+probe Ql (Resp) Not detected Not Detected [facility] FLUBV RNA KELSI+probe Ql (Resp) Not detected Not Detected [facility] RSV RNA KELSI+probe Ql (Resp) Not detected Not Detected [facility] SARS-CoV-2 (COVID-19) RNA KELSI+probe Ql (Resp) Not detected Not Detected [facility] SARS-CoV-2 (COVID-19) RNA KELSI+probe Ql (Unsp spec) Methodology: real-time, RT-PCR The SARS-CoV-2, Flu A/B, and RSV Combo assay is intended for in vitro diagnostic use under the FDA Emergency Use Authorization (EUA). This test has not been FDA cleared or approved. In compliance with this authorization, please visit www.fda.gov/media/822656/d ownload or www.fda.gov/media/812981/d ownload to access the applicable information sheets. [employer] No Panel InformationOrdered By: Eric Aldrich on 05-18-2023 P Thornton 82 degrees [employer] Work Phone: FL Interval 176 ms [employer] Work Phone: QRS Thornton -43 degrees [employer] Work Phone: QRSD Interval 74 ms [employer] Work Phone: QT Interval 324 ms [employer] Work Phone: QTC Interval 441 ms [employer] Work Phone: T Wave Thornton 84 degrees [employer] Work Phone: [employer] Work Phone: No Panel Informationon 05-18 SINUS TACHYCARDIA ATRIAL PREMATURE COMPLEX INFERIOR INFARCT, OLD BORDERLINE R WAVE PROGRESSION, ANTERIOR LEADS Compared to ECG 05/11/2023 16:11:48 Atrial premature complex(es) now present Myocardial infarct finding now present Sinus rhythm no longer present Electronically Signed On 05-18-2023 22:41:47 EDT by Eric Cesar D O - 05/18/2023 IMPRESSION: SINUS TACHYCARDIA ATRIAL PREMATURE COMPLEX INFERIOR INFARCT, OLD BORDERLINE R WAVE PROGRESSION, ANTERIOR LEADS Compared to ECG 05/11/2023 16:11:48 Atrial premature complex(es) now present Myocardial infarct finding now present Sinus rhythm no longer present Electronically Signed On 05-18-2023 22:41:47 EDT by Eric Aldrich [facility] Interpretation and review of laboratory results Normal [facility] SARS-CoV-2, Flu A/B, and RSV Comboon 05-18-2023 Interpretation and review of laboratory results Normal [facility] Troponin I.cardiac [Mass/Vol ]on 05-18-2023 Interpretation and review of laboratory results Normal [facility] Patients with high l evels of Biotin oral intake (ie >5 mg/day) may have falsely decreased Troponin levels. [facility] Interpretation and review of laboratory results Normal [facility] Patients with high l evels of Biotin oral intake (ie >5 mg/day) may have falsely decreased Troponin levels. [facility] Urinalysis complete panel (U )on 05-18-2023 Bilirubin Ql (U) Negative Negative mg/dL [facility] Clarity (U) Clear Clear [facility] Health Color (U) Light Yellow Lt. Yellow [facility] Glucose Ql (U) Normal Normal (<70) mg/dL [facility] Hemoglobin Ql (U) Negative Negative mg/dL [facility] Interpretation and review of laboratory results Normal [facility] Ketones (U) [Mass/Vol] Negative Negat tika mg/dL [facility] Leukocyte esterase Test strip Ql (U) Negative Negative Magnus/uL [facility] Nitrite Ql (U) Negative Negative [facility] th pH (U) 5.0 [pH] 5.0 - 8.0 pH [facility] Protein (U) [Mass/Vol] Negative Negat tika mg/dL [facility] Specific gravity (U) [Rel density] 1.009 1.005 - 1.030 [facility] Urobilinogen (U) [Mass/Vol] Normal Normal (0-1) mg/dL [facility] Urinalysis complete panel (U )Ordered By: Pia Ortiz on 05-18-2023 Bacteria LM.HPF (Urine sed) [#/Area] Few Abnormal Negative /HPF [facility] Bilirubin Ql (U) Negative Negative mg/dL [facility] Clarity (U) Clear Clear [facility] Color (U) Light Yellow Lt. Yellow [facility] Epithelial cells.squamous LM.HPF (Urine sed) [#/Area] 11-25 [facility] Glucose Ql (U) Normal Normal (<70) mg/dL [facility] Hemoglobin Ql (U) Negative Negative mg/dL [facility] Hyaline casts Auto (Urine sed) [#/Area] 6-10 Abnormal Negative /LPF [facility] Interpretation and review of laboratory results Abnormal [facility] Ketones (U) [Mass/Vol] Negative Negat tika mg/dL [facility] Leukocyte esterase Test strip Ql (U) 250 Abnormal Negative Magnus/uL [facility] Mucus LM.HPF (Urine sed) [#/Area] Few Negative /LPF [facility] Nitrite Ql (U) Negative Negative [facility] Non-Squamous Epithalial Cells, Urine 0-2 Abnormal Negative /HPF [facility] pH (U) 5.0 [pH] 5.0 - 8.0 pH [facility] Protein (U) [Mass/Vol] Negative Negat tika mg/dL [facility] RBC LM.HPF (Urine sed) [#/Area] 3-5 Abnormal [facility] Specific gravity (U) [Rel density] 1.011 1.005 - 1.030 [facility] Urobilinogen (U) [Mass/Vol] Normal Normal (0-1) mg/dL [facility] WBC LM.HPF (Urine sed) [#/Area] 6-10 Abnormal [facility] Vital signsOrdered By: Trish Aldrich on 05-18-2023 Heart rate 111 /min bpm [facility] Work Phone: XR Chest Single viewon 05-18 No acute cardiopulmonary disease. Report Dictated on Electronically Signed By: Aba Lu MD Electronically Signed Date/Time: 05/18/2023 4:59 PM EDT [facility] Patient Name: ANSON CAPPS : 1940 Exam Date/Time: 05/18/2023 17:04 Procedure: XR CHEST 1 VIEW Ordering Provider: JAIMES JAKLYN Reason For Exam: malaise PORTABLE CHEST X-RAY CLINICAL INDICATION: Malaise A portable frontal view of the chest was obtained. COMPARISON: 05/11/2023 FINDINGS: The cardiac silhouette is within normal limits. No focal consolidation is seen within the lungs. There is no large pleural effusion or pneumothorax. Moderate degenerative changes of the right shoulder are again noted. [facility] Aba Lu MD - 05/18/2023 Patient Name: ANSON CAPPS : 1940 Exam Date/Time: 05/18/2023 17:04 Procedure: XR CHEST 1 VIEW Ordering Provider: JAIMES JAKLYN Reason For Exam: malaise PORTABLE CHEST X-RAY CLINICAL INDICATION: Malaise A portable frontal view of the chest was obtained. COMPARISON: 05/11/2023 FINDINGS: The cardiac silhouette is within normal limits. No focal consolidation is seen within the lungs. There is no large pleural effusion or pneumothorax. Moderate degenerative changes of the right shoulder are again noted. IMPRESSION: No acute cardiopulmonary disease. Report Dictated on Electronically Signed By: Aba Lu MD Electronically Signed Date/Time: 05/18/2023 4:59 PM EDT [facility] Radiology Study observation (narrative) [facility] XR Chest Single viewOrdered By: Aba Lu on 05-18-2023 [facility] Work Phone: Bacteria identified Cx Nom ( U)Ordered By: Denisse Rolle on 05-14-2023 Interpretation and review of laboratory results Abnormal [facility] Basic metabolic 1998 panelon 05-14-2023 Anion gap [Moles/Vol] 5 mmol/L 3 - 13 mmol/L [facility] Calcium [Mass/Vol] 8.9 mg/dL 8.4 - 10. 4 mg/dL [facility] Chloride [Moles/Vol] 105 mmol/L 98 - 10 7 mmol/L [facility] CO2 [Moles/Vol] 27 mmol/L 22 - 30 mmol/L [facility] Creatinine [Mass/Vol] 1.26 mg/dL High 0.52 - 1.04 mg/dL [facility] GFR/1.73 sq M.predicted MDRD (S/P/Bld) [Vol rate/Area] 43.2 mL/min/{1.73_m2} Low - PINF [facility] th Comment on above: Calculation based on the Chronic Kidney Disease Epidemiology Collaboration (CKD-EPI) equation refit without adjustment for race Glucose [Mass/Vol] 121 mg/dL High 70 - 100 mg/dL [facility] Interpretation and review of laboratory results Abnormal [facility] Potassium [Moles/Vol] 4.3 mmol/L 3.5 - 5.1 mmol/L [facility] Sodium [Moles/Vol] 137 mmol/L 135 - 145 mmol/L [facility] Urea nitrogen [Mass/Vol] 31 mg/dL High 7 - 17 mg/dL [facility] CBC W Auto Differential pane l (Bld)Ordered By: Lynn Fragoso on 05-14-2023 Basophils (Bld) [#/Vol] 0.1 10*3/uL 0.0 - 0.2 10*3/uL [facility] Basophils/100 WBC (Bld) 1.4 % 0.0 - 2.0 % [facility] Eosinophils (Bld) [#/Vol] 0.3 10*3/uL 0.0 - 0.5 10*3/uL [facility] Eosinophils/100 WBC (Bld) 2.9 % 1.0 - 6.0 % [facility] Erythrocyte distribution width (RBC) [Ratio] 18.6 % High 11.5 - 14.5 % [facility] Hematocrit (Bld) [Volume fraction] 33.4 % Low 35.0 - 47.0 % [facility] Hemoglobin (Bld) [Mass/Vol] 10.6 g/dL Low 11.7 - 16.0 g/dL [facility] Interpretation and review of laboratory results Abnormal [facility] Lymphocytes (Bld) [#/Vol] 2.8 10*3/uL 1.0 - 4.3 10*3/uL [facility] Lymphocytes/100 WBC (Bld) 30.8 % 20.0 - 40.0 % [facility] MCH (RBC) [Entitic mass] 25.6 pg Low 26.0 - 34.0 pg [facility] MCHC (RBC) [Mass/Vol] 31.8 % Low 32.0 - 36.0 % [facility] MCV (RBC) [Entitic vol] 80.6 fL 80.0 - 98.0 fL [facility] Monocytes (Bld) [#/Vol] 0.8 10*3/uL 0.0 - 0.8 10*3/uL [facility] Monocytes/100 WBC (Bld) 8.4 % 2.0 - 10.0 % [facility] Neutrophils (Bld) [#/Vol] 5.2 10*3/uL 1.8 - 7.0 10*3/uL [facility] Neutrophils/100 WBC (Bld) 56.5 % 40.0 - 80.0 % [facility] Nucleated RBC/100 WBC (Bld) [Ratio] 0.0 % [facility] Platelet mean volume (Bld) [Entitic vol] 7.6 fL 7.4 - 12.4 fL [facility] Platelets (Bld) [#/Vol] 387 10*3/uL 140 - 440 10*3/uL [facility] RBC (Bld) [#/Vol] 4.14 10*6/uL 3.8 - 5.20 10*6/uL [facility] WBC (Bld) [#/Vol] 9.2 10*3/uL 3.6 - 10.7 10*3/uL [facility] Laboratory - Chemistry and C hemistry - challengeon 05-14-2023 Glucose [Mass/Vol] 126 mg/dL High 70 - 100 mg/dL [facility] Laboratory - Microbiology an d Antimicrobial susceptibilityOrdered By: Denisse Rolle on 05-14-2023 Bacteria identified Cx Nom (U) >100,000 CFU/mL Escherichia coli Abnormal [facility] No Panel Informationon 05-14 Interpretation and review of laboratory results Abnormal [facility] by: [facility], [address] [place] [address] CLIA ID: [id number] [facility] Basic metabolic 1998 panelon 05-13-2023 Anion gap [Moles/Vol] 6 mmol/L 3 - 13 mmol/L [facility] Calcium [Mass/Vol] 8.6 mg/dL 8.4 - 10. 4 mg/dL [facility] Chloride [Moles/Vol] 108 mmol/L High 98 - 10 7 mmol/L [facility] CO2 [Moles/Vol] 26 mmol/L 22 - 30 mmol/L [facility] Creatinine [Mass/Vol] 1.15 mg/dL High 0.52 - 1.04 mg/dL [facility] GFR/1.73 sq M.predicted MDRD (S/P/Bld) [Vol rate/Area] 48.3 mL/min/{1.73_m2} Low - PINF [facility] Comment on above: Calculation based on the Chronic Kidney Disease Epidemiology Collaboration (CKD-EPI) equation refit without adjustment for race Glucose [Mass/Vol] 140 mg/dL High 70 - 100 mg/dL [facility] Interpretation and review of laboratory results Abnormal [facility] Potassium [Moles/Vol] 4.0 mmol/L 3.5 - 5.1 mmol/L [facility] Sodium [Moles/Vol] 140 mmol/L 135 - 145 mmol/L [facility] Urea nitrogen [Mass/Vol] 31 mg/dL High 7 - 17 mg/dL [facility] CBC W Auto Differential pane l (Bld)on 05-13-2023 Basophils (Bld) [#/Vol] 0.1 10*3/uL 0.0 - 0.2 10*3/uL [facility] Basophils/100 WBC (Bld) 1.1 % 0.0 - 2.0 % [facility] Eosinophils (Bld) [#/Vol] 0.1 10*3/uL 0.0 - 0.5 10*3/uL [facility] Eosinophils/100 WBC (Bld) 1.3 % 1.0 - 6.0 % [facility] Erythrocyte distribution width (RBC) [Ratio] 18.6 % High 11.5 - 14.5 % [facility] Hematocrit (Bld) [Volume fraction] 30.7 % Low 35.0 - 47.0 % [facility] Hemoglobin (Bld) [Mass/Vol] 9.6 g/dL Low 11.7 - 16.0 g/dL [facility] Interpretation and review of laboratory results Abnormal [facility] Lymphocytes (Bld) [#/Vol] 2.6 10*3/uL 1.0 - 4.3 10*3/uL [facility] Lymphocytes/100 WBC (Bld) 23.2 % 20.0 - 40.0 % [facility] MCH (RBC) [Entitic mass] 25.0 pg Low 26.0 - 34.0 pg [facility] MCHC (RBC) [Mass/Vol] 31.3 % Low 32.0 - 36.0 % [facility] MCV (RBC) [Entitic vol] 79.7 fL Low 80.0 - 98.0 fL [facility] Monocytes (Bld) [#/Vol] 1.0 10*3/uL High 0.0 - 0.8 10*3/uL [facility] Monocytes/100 WBC (Bld) 8.8 % 2.0 - 10.0 % [facility] Neutrophils (Bld) [#/Vol] 7.4 10*3/uL High 1.8 - 7.0 10*3/uL [facility] Neutrophils/100 WBC (Bld) 65.6 % 40.0 - 80.0 % [facility] Nucleated RBC/100 WBC (Bld) [Ratio] 0.0 % [facility] Platelet mean volume (Bld) [Entitic vol] 7.5 fL 7.4 - 12.4 fL [facility] Platelets (Bld) [#/Vol] 375 10*3/uL 140 - 440 10*3/uL [facility] RBC (Bld) [#/Vol] 3.86 10*6/uL 3.8 - 5.20 10*6/uL [facility] WBC (Bld) [#/Vol] 11.3 10*3/uL High 3.6 - 10.7 10*3/uL [facility] Laboratory - Chemistry and C hemistry - challengeon 05-13-2023 Glucose [Mass/Vol] 149 mg/dL High 70 - 100 mg/dL [facility] Glucose [Mass/Vol] 126 mg/dL High 70 - 100 mg/dL [facility] No Panel Informationon 05-13 Interpretation and review of laboratory results Abnormal [facility] Performed by: [facility] [place] [facility], [address] [place] [id number] CLIA ID: [id number] [facility] Interpretation and review of laboratory results Abnormal [facility] Performed by: [facility] [place] [facility], [address] [facility] [address] CLIA ID: [id number] [facility] CRP [Mass/Vol]on 05-12-2023 Interpretation and review of laboratory results Abnormal [facility] Hepatic function 2000 panelo n 05-12-2023 Albumin [Mass/Vol] 3.7 g/dL 3.5 - 5.0 g/dL [facility] ALP [Catalytic activity/Vol] 48 U/L 38 - 126 U/L [facility] ALT [Catalytic activity/Vol] 19 U/L 0 - 34 U/L [facility] AST [Catalytic activity/Vol] 37 U/L 15 - 46 U/L [facility] Bilirubin [Mass/Vol] 0.4 mg/dL 0.2 - 1 .3 mg/dL [facility] Bilirubin.conjugated [Mass/Vol] 0.0 mg/dL 0.0 - 0.3 mg/dL [facility] Protein [Mass/Vol] 6.8 g/dL 6.3 - 8.2 g/dL [facility] Laboratory - Chemistry and C hemistry - challengeon 05-12-2023 Lactate [Moles/Vol] 1.2 mmol/L 0.7 - 2. 0 mmol/L [facility] Lactate [Moles/Vol] 2.5 mmol/L High 0.7 - 2. 0 mmol/L [facility] Procalcitonin [Mass/Vol] 0.04 ng/mL 0.00 - 0.09 ng/mL [facility] Lactate [Moles/Vol] 2.4 mmol/L High 0.7 - 2. 0 mmol/L [facility] Lactate [Moles/Vol] 3.0 mmol/L High 0.7 - 2. 0 mmol/L [facility] CRP [Mass/Vol] 55.2 mg/L High NINF - 10.0 mg/L [facility] Lipase [Catalytic activity/Vol] 271 U/L 23 - 300 U/L [facility] Laboratory - Chemistry and C hemistry - challengeOrdered By: Vernon Wolfe on 05-12-2023 Lactate [Moles/Vol] 4.5 mmol/L Critically high 0.7 - 2.0 mmol/L [facility] Laboratory - Chemistry and C hemistry - challengeOrdered By: Pia Martinez on 05-12-2023 Lactate [Moles/Vol] 5.5 mmol/L Critically high 0.7 - 2.0 mmol/L [facility] Laboratory - Drug toxicology on 05-12-2023 Vancomycin [Mass/Vol] 10.8 ug/mL Low 15.0 - 20.0 ug/mL [facility] No Panel Informationon 05-12 Interpretation and review of laboratory results Normal [facility] Interpretation and review of laboratory results Abnormal [facility] Interpretation and review of laboratory results Abnormal [facility] Interpretation and review of laboratory results Abnormal [facility] Interpretation and review of laboratory results Normal [facility] Interpretation and review of laboratory results Abnormal [facility] No Panel InformationOrdered By: Vernon Wolfe on 05-12-2023 Interpretation and review of laboratory results Abnormal [facility] No Panel InformationOrdered By: Pia Martinez on 05-12-2023 Interpretation and review of laboratory results Abnormal [facility] Procalcitonin [Mass/Vol]on 1 Interpretation and review of laboratory results Normal [facility] PCT <0.50 = Low risk of severe sepsis and/or septic shock. PCT >2.00 = High risk of severe sepsis and/or septic shock. [facility] Basic metabolic 1998 panelon 05-11-2023 Anion gap [Moles/Vol] 15 mmol/L High 3 - 13 mmol/L [facility] Calcium [Mass/Vol] 9.2 mg/dL 8.4 - 10. 4 mg/dL [facility] Chloride [Moles/Vol] 99 mmol/L 98 - 10 7 mmol/L [facility] CO2 [Moles/Vol] 20 mmol/L Low 22 - 30 mmol/L [facility] Creatinine [Mass/Vol] 1.33 mg/dL High 0.52 - 1.04 mg/dL [facility] GFR/1.73 sq M.predicted MDRD (S/P/Bld) [Vol rate/Area] 40.5 mL/min/{1.73_m2} Low - PINF [facility] Comment on above: Calculation based on the Chronic Kidney Disease Epidemiology Collaboration (CKD-EPI) equation refit without adjustment for race Glucose [Mass/Vol] 124 mg/dL High 70 - 100 mg/dL [facility] Interpretation and review of laboratory results Abnormal [facility] Potassium [Moles/Vol] 4.6 mmol/L 3.5 - 5.1 mmol/L [facility] Sodium [Moles/Vol] 134 mmol/L Low 135 - 145 mmol/L [facility] Urea nitrogen [Mass/Vol] 52 mg/dL High 7 - 17 mg/dL [facility] CBC W Auto Differential pane l (Bld)Ordered By: Rody Ford on 05-11-2023 Basophils (Bld) [#/Vol] 0.1 10*3/uL 0.0 - 0.2 10*3/uL [facility] Basophils/100 WBC (Bld) 0.6 % 0.0 - 2.0 % [facility] Eosinophils (Bld) [#/Vol] 0.2 10*3/uL 0.0 - 0.5 10*3/uL [facility] Eosinophils/100 WBC (Bld) 1.3 % 1.0 - 6.0 % [facility] Erythrocyte distribution width (RBC) [Ratio] 17.8 % High 11.5 - 14.5 % [facility] Hematocrit (Bld) [Volume fraction] 37.2 % 35.0 - 47.0 % [facility] Hemoglobin (Bld) [Mass/Vol] 11.5 g/dL Low 11.7 - 16.0 g/dL [facility] Immature granulocytes (Bld) [#/Vol] 0.1 10*3/uL High NINF - 0.0 10*3/uL [facility] Immature granulocytes/100 WBC (Bld) 0.4 % High NINF - 0.0 % [facility] Interpretation and review of laboratory results Abnormal [facility] Lymphocytes (Bld) [#/Vol] 3.7 10*3/uL 1.0 - 4.3 10*3/uL [facility] Lymphocytes/100 WBC (Bld) 20.0 % 20.0 - 40.0 % [facility] MCH (RBC) [Entitic mass] 25.3 pg Low 26.0 - 34.0 pg [facility] MCHC (RBC) [Mass/Vol] 30.9 % Low 32.0 - 36.0 % [facility] MCV (RBC) [Entitic vol] 81.8 fL 80.0 - 98.0 fL [facility] Monocytes (Bld) [#/Vol] 1.8 10*3/uL High 0.0 - 0.8 10*3/uL [facility] Monocytes/100 WBC (Bld) 9.5 % 2.0 - 10.0 % [facility] Neutrophils (Bld) [#/Vol] 12.7 10*3/uL High 1.8 - 7.0 10*3/uL [facility] Neutrophils/100 WBC (Bld) 68.2 % 40.0 - 80.0 % [facility] Platelet mean volume (Bld) [Entitic vol] 9.3 fL 7.4 - 12.4 fL [facility] Platelets (Bld) [#/Vol] 446 10*3/uL High 140 - 440 10*3/uL [facility] RBC (Bld) [#/Vol] 4.55 10*6/uL 3.8 - 5.20 10*6/uL [facility] WBC (Bld) [#/Vol] 18.6 10*3/uL High 3.6 - 10.7 10*3/uL [facility] Slight Anisocytosis Slight Hypochromia [facility] COVID-19, Flu A/B, and RSV C omboon 05-11-2023 Interpretation and review of laboratory results Normal [facility] CT Abdomen WO contraston 1. Constipation with rectal impaction. Diverticulosis. 2. Osteopenia. Report Dictated on Electronically Signed By: José Bello MD Electronically Signed Date/Time: 05/11/2023 7:29 PM EDT [employer] Patient Name: ANSON CAPPS : 1940 Exam Date/Time: 05/11/2023 19:06 Procedure: CT ABDOMEN PELVIS WO IV CONTRAST Ordering Provider: RITTER JONATHAN Reason For Exam: Abdominal pain, acute, nonlocalized CT ABDOMEN AND PELVIS WITHOUT CONTRAST CLINICAL INDICATION: Abdominal pain, acute, nonlocalized TECHNIQUE: CT scan of the abdomen and pelvis without IV/oral contrast. Multiplanar reformations. Dose reduction was employed with automated exposure control. COMPARISON: None FINDINGS: Solid organ evaluation limited from lack of IV contrast. Lung bases are clear. No free intraperitoneal gas seen. Liver shows no significant abnormality. Gallbladder and biliary tree appear normal. Adrenal glands show no significant abnormality. Kidneys show no significant abnormality. Pancreas shows no significant abnormality. Abdominal aorta is nonaneurysmal. Spleen shows no significant abnormality. No bowel obstruction. The appendix appears normal. No ureteral calculus seen on either side. No acute inflammatory process seen. Moderate constipation with rectal impaction. Diverticula noted in the sigmoid and descending colon. Bones are diffusely osteopenic. [facility] [employer] José Bello MD - 05/11/2023 Patient Name: ANSON CAPPS : 1940 Exam Date/Time: 05/11/2023 19:06 Procedure: CT ABDOMEN PELVIS WO IV CONTRAST Ordering Provider: RITTER JONATHAN Reason For Exam: Abdominal pain, acute, nonlocalized CT ABDOMEN AND PELVIS WITHOUT CONTRAST CLINICAL INDICATION: Abdominal pain, acute, nonlocalized TECHNIQUE: CT scan of the abdomen and pelvis without IV/oral contrast. Multiplanar reformations. Dose reduction was employed with automated exposure control. COMPARISON: None FINDINGS: Solid organ evaluation limited from lack of IV contrast. Lung bases are clear. No free intraperitoneal gas seen. Liver shows no significant abnormality. Gallbladder and biliary tree appear normal. Adrenal glands show no significant abnormality. Kidneys show no significant abnormality. Pancreas shows no significant abnormality. Abdominal aorta is nonaneurysmal. Spleen shows no significant abnormality. No bowel obstruction. The appendix appears normal. No ureteral calculus seen on either side. No acute inflammatory process seen. Moderate constipation with rectal impaction. Diverticula noted in the sigmoid and descending colon. Bones are diffusely osteopenic. IMPRESSION: 1. Constipation with rectal impaction. Diverticulosis. 2. Osteopenia. Report Dictated on Electronically Signed By: José Bello MD Electronically Signed Date/Time: 05/11/2023 7:29 PM EDT [facility] Radiology Study observation (narrative) [facility] CT Abdomen WO contrastOrdere d By: José Bello on 05-11-2023 [employer] Work Phone: Laboratory - Chemistry and C hemistry - challengeon 05-11-2023 Troponin I.cardiac [Mass/Vol] ng/mL [employer] - 0.034 ng/mL [facility] [employer] Lactate [Moles/Vol] 2.6 mmol/L High 0.7 - 2. 0 mmol/L [facility] [employer] Troponin I.cardiac [Mass/Vol] ng/mL [employer] - 0.034 ng/mL [facility] [employer] Lactate [Moles/Vol] 4.7 mmol/L Critically high 0.7 - 2.0 mmol/L [facility] [employer] Troponin I.cardiac [Mass/Vol] ng/mL NINF - 0.034 ng/mL [facility] Laboratory - Microbiology an d Antimicrobial susceptibilityon 05-11-2023 FLUAV RNA KELSI+probe Ql (Resp) Not detected Not Detected [facility] FLUBV RNA KELSI+probe Ql (Resp) Not detected Not Detected [facility] RSV RNA KELSI+probe Ql (Resp) Not detected Not Detected [facility] SARS-CoV-2 (COVID-19) RNA KELSI+probe Ql (Resp) Not detected Not Detected [facility] SARS-CoV-2 (COVID-19) RNA KELSI+probe Ql (Unsp spec) Methodology: real-time, RT-PCR The SARS-CoV-2, Flu A/B, and RSV Combo assay is intended for in vitro diagnostic use under the FDA Emergency Use Authorization (EUA). This test has not been FDA cleared or approved. In compliance with this authorization, please visit www.[employer]gov/media/381351/d ownload or www.[employer].gov/media/624892/d ownload to access the applicable information sheets. [facility] No Panel Informationon 05-11 Interpretation and review of laboratory results Abnormal [facility] Interpretation and review of laboratory results Abnormal [facility] P [place] 73 degrees [facility] FL Interval 189 ms [facility] QRS [place] -11 degrees [facility] QRSD Interval [facility] Interval 355 ms [facility] QTC Interval 442 ms [facility] T Wave [place] 65 degrees [facility] Sinus rhythm Low voltage, extremity leads No previous ECG available for comparison Electronically Signed On 05-11-2023 17:18:13 EDT by Aba Ritter CV Aba Perdomo MD - 05/11/2023 IMPRESSION: Sinus rhythm Low voltage, extremity leads No previous ECG available for comparison Electronically Signed On 05-11-2023 17:18:13 EDT by Aba Ritter [facility] Troponin I.cardiac [Mass/Vol ]on 05-11-2023 Interpretation and review of laboratory results Normal [facility] Patients with high l evels of Biotin oral intake (ie >5 mg/day) may have falsely decreased Troponin levels. [facility] Interpretation and review of laboratory results Normal [facility] Patients with high l evels of Biotin oral intake (ie >5 mg/day) may have falsely decreased Troponin levels. [facility] Interpretation and review of laboratory results Normal [facility] Patients with high l evels of Biotin oral intake (ie >5 mg/day) may have falsely decreased Troponin levels. [facility] Urinalysis complete panel (U )on 05-11-2023 Bacteria LM.HPF (Urine sed) [#/Area] Many Abnormal Negative /HPF [facility] Bilirubin Ql (U) Negative Negative mg/dL [facility] Clarity (U) Turbid Abnormal Clear [facility] Color (U) Yellow Lt. Yellow [facility] Epithelial cells.squamous LM.HPF (Urine sed) [#/Area] 6-10 Abnormal [facility] h Glucose Ql (U) Normal Normal (<70) mg/dL [facility] Hemoglobin Ql (U) 0.03 mg/dL Abnormal Negative [facility]alth Interpretation and review of laboratory results Abnormal [facility] Ketones (U) [Mass/Vol] Negative Negat tika mg/dL [facility] Leukocyte esterase Test strip Ql (U) 500 Abnormal Negative Magnus/uL [facility] Mucus LM.HPF (Urine sed) [#/Area] Few Negative /LPF [facility] Nitrite Ql (U) Positive Abnormal Negative [facility] th pH (U) 5.0 [pH] 5.0 - 8.0 pH [facility] Protein (U) [Mass/Vol] 20 mg/dL Abnormal Negative [facility] RBC LM.HPF (Urine sed) [#/Area] 6-10 Abnormal [facility] Specific gravity (U) [Rel density] 1.017 1.005 - 1.030 [facility] Urobilinogen (U) [Mass/Vol] Normal Normal (0-1) mg/dL [facility] Volume, Urine 12 mL [facility] WBC LM.HPF (Urine sed) [#/Area] /[HPF] Abnormal [facility] Vital signson 05-11-2023 Heart rate 93 /min bpm [facility] XR Chest Single viewon 05-11 Chronic findings. No acute pulmonary process. Report Dictated on Electronically Signed By: Ludmila Watson MD Electronically Signed Date/Time: 05/11/2023 4:56 PM T [facility] Patient Name: ANSON CAPPS : 1940 Exam Date/Time: 05/11/2023 16:44 Procedure: XR CHEST 1 VIEW Ordering Provider: RITTER JONATHAN Reason For Exam: DYSPNEA CHEST (Frontal View) History: Dyspnea Comparison: None available Findings: Frontal chest view shows mild pulmonary hyperaeration with interstitial prominence without acute infiltrate or congestion. The heart is normal in size. There are aortic calcifications. There is no mediastinal widening or pleural effusion. 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 [facility] Ludmila Watson MD - 05/11/2023 Patient Name: ANSON CAPPS : 1940 Exam Date/Time: 05/11/2023 16:44 Procedure: XR CHEST 1 VIEW Ordering Provider: RITTER JONATHAN Reason For Exam: DYSPNEA CHEST (Frontal View) History: Dyspnea Comparison: None available Findings: Frontal chest view shows mild pulmonary hyperaeration with interstitial prominence without acute infiltrate or congestion. The heart is normal in size. There are aortic calcifications. There is no mediastinal widening or pleural effusion. 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 IMPRESSION: Chronic findings. No acute pulmonary process. Report Dictated on Electronically Signed By: Ludmial Watson MD Electronically Signed Date/Time: 05/11/2023 4:56 PM EDT [facility] Radiology Study observation (narrative) [facility] XR Chest Single viewOrdered By: Ludmila Watson on 05-11-2023 [employer] Work Phone: US RENALon 05-09-2023 US RENAL ORIGINAL EXAMINATION: ULTRASOUND OF THE KIDNEYS 05/06/2023 3:42 pm COMPARISON: Renal ultrasound 11/11/2022 HISTORY: ORDERING SYSTEM PROVIDED HISTORY: Reason for Exam: CHRONIC KIDNEY DISEASE FINDINGS: Suboptimal evaluation secondary to patient body habitus and bowel gas artifact. Right kidney: Measures 8.5 x 3.8 x 4.4 cm. Mild diffuse cortical thinning with more focal areas of scarring. Mildly increased cortical echogenicity. The lower pole is suboptimally visualized secondary to bowel gas artifact. No focal lesion. No pelvicaliectasis. Left kidney: Measures 8.6 x 3.6 x 4.7 cm. Mild diffuse cortical thinning with focal areas of scarring. Mildly increased cortical echogenicity. No focal lesion. No pelvicaliectasis. Bladder: No focal bladder wall thickening. Prevoid volume of 151.7 mL. Small to moderate postvoid residual of 55.6 mL. Both ureteral jets are visualized. IMPRESSION: Medical renal disease with focal areas of scarring bilaterally. No obstruction. Small to moderate postvoid residual of 55.6 mL. Otherwise unremarkable bladder. I have personally reviewed the images of this examination and agree with the resident's findings and interpretation. Interpreted by: Al Trent MD Preliminary Report By: Tanika Batista Electronically signed By Al Trent MD Dictated Date: 05/09/2023 10:26:28 AM Prelim Date: 05/09/2023 3:51:32 PM Sign Date: 05/09/2023 3:51:32 PM Ordering Provider: ERIN MONTIEL Normal [facility]) Glucose Glucometer (BldC) [M ass/Vol]Ordered By: Ryan Hou on 05-05-2023 Glucose [Mass/Vol] 167 mg/dL 74-106 [facility] Comment on above: MANAGEMENT OF PATIEN T CARE PER NURSING PROTOCOL SPEon 04-10-2023 SPE Interpretation Alpha-1 and/or alpha -2 are increased. This may be seen in acute phase reaction. Normal [facility]) Comment on above: Result Comment: Elec tronically Signed by: BRANDO CRISTINA 04/10/2023 15:41 EDT Performed By: #### M YCO #### [address] [address] Albumin 3.6 G/dL Normal 3.3-5.0 [facility] ([place] Comment on above: Performed By: #### M YCO #### [address] [address] Alpha 1 0.3 G/dL Normal 0.1-0.4 [facility] ([place] Comment on above: Performed By: #### M YCO #### [address] [address] Alpha 2 1.3 G/dL High 0.6-1.2 [facility] ([place] Comment on above: Performed By: #### M YCO #### [place] [address] Beta 1.1 G/dL Normal 0.6-1.3 [facility] ([place] Comment on above: Performed By: #### M YCO #### [place] [address] Gamma 0.8 G/dL Normal 0.7-1.6 [facility] ([place] Comment on above: Performed By: #### M YCO #### [place] [address] .Auto Diffon 04-09-2023 Basophil, Absolute 0.1 10 3/mcL Normal 0.0-0.2 [facility] ([place]) Comment on above: Performed By: #### A 1C, FES, ADIFF, VIDH, FERR, URIC, GFR, ANEU, CBC, RFP #### [address] [address] #### C3C4A, SPE #### [place] [address] Basophils/100 WBC (Bld) 0.6 % Normal 0.0-2.5 [facility] ([place] Comment on above: Performed By: #### A 1C, FES, ADIFF, VIDH, FERR, URIC, GFR, ANEU, CBC, RFP #### [address] [address] #### C3C4A, SPE #### [place] [address] Eosinophil, Absolute 0.2 10 3/mcL Normal 0.0-0.4 [facility] ([place]) Comment on above: Performed By: #### A 1C, FES, ADIFF, VIDH, FERR, URIC, GFR, ANEU, CBC, RFP #### [place] [address] #### C3C4A, SPE #### [address] [address] Eosinophils/100 WBC (Bld) 2.1 % Normal 0.0-7.0 [facility] ([place] Comment on above: Performed By: #### A 1C, FES, ADIFF, VIDH, FERR, URIC, GFR, ANEU, CBC, RFP #### [address] [address] #### C3C4A, SPE #### [address] [address] Lymphocyte, Absolute 2.1 10 3/mcL Normal 0.8-3.9 [facility] ([place] Comment on above: Performed By: #### A 1C, FES, ADIFF, VIDH, FERR, URIC, GFR, ANEU, CBC, RFP #### [address] [address] #### C3C4A, SPE #### [address] [address] Lymphocytes/100 WBC (Bld) 17.6 % Normal 10.0-50.0 [facility] ([place] Comment on above: Performed By: #### A 1C, FES, ADIFF, VIDH, FERR, URIC, GFR, ANEU, CBC, RFP #### [address] [address] #### C3C4A, SPE #### [address] [address] Monocyte, Absolute 1.0 10 3/mcL Normal 0.2-1.0 [facility] ([place] Comment on above: Performed By: #### A 1C, FES, ADIFF, VIDH, FERR, URIC, GFR, ANEU, CBC, RFP #### [address] [address] #### C3C4A, SPE #### [address] [address] Monocytes/100 WBC (Bld) 8.8 % Normal 1.7-13.0 [facility] ([place] Comment on above: Performed By: #### A 1C, FES, ADIFF, VIDH, FERR, URIC, GFR, ANEU, CBC, RFP #### [address] [address] #### C3C4A, SPE #### [address] [address] Neutrophils/100 WBC (Bld) 70.9 % Normal 37.0-80.0 [facility] ([place] Comment on above: Performed By: #### A 1C, FES, ADIFF, VIDH, FERR, URIC, GFR, ANEU, CBC, RFP #### [address] [address] #### C3C4A, SPE #### [address] [address] .GFRon 04-09-2023 GFR 53 ml/min/1.73sqm Normal [facility] ([place] Comment on above: Result Comment: GFR Population mean for , Non- Americans Ages 20-29 = 116 mL/min/1.73 sq.m. Ages 30-39 = 107 mL/min/1.73 sq.m. Ages 40-49 = 99 mL/min/1.73 sq.m. Ages 50-59 = 93 mL/min/1.73 sq.m. Ages 60-69 = 85 mL/min/1.73 sq.m. Ages 70+ = 75 mL/min/1.73 sq.m. Chronic Kidney Disease: Less than 60 mL/min/1.73 square meters End Stage Renal Disease: Less than 15 mL/min/1.73 square meters Performed By: #### M YCO #### [address] [address] GFR Non- 44 ml/min/1.73sqm Normal [facility] ([place] Comment on above: Result Comment: GFR Population mean for , Non- Americans Ages 20-29 = 116 mL/min/1.73 sq.m. Ages 30-39 = 107 mL/min/1.73 sq.m. Ages 40-49 = 99 mL/min/1.73 sq.m. Ages 50-59 = 93 mL/min/1.73 sq.m. Ages 60-69 = 85 mL/min/1.73 sq.m. Ages 70+ = 75 mL/min/1.73 sq.m. Chronic Kidney Disease: Less than 60 mL/min/1.73 square meters End Stage Renal Disease: Less than 15 mL/min/1.73 square meters Performed By: #### M YCO #### [place] [address] .NEUABSon 04-09-2023 Neutrophil, Absolute 8.3 10 3/mcL High 2.9-6.2 [facility] ([place] Comment on above: Performed By: #### A 1C, FES, ADIFF, VIDH, FERR, URIC, GFR, ANEU, CBC, RFP #### [place] [address] #### C3C4A, SPE #### [place] [address] .Urinalysis Microscopic (AO) on 04-09-2023 UA Bacteria 2+ /hpf Abnormal [facility] ([place] Comment on above: Performed By: #### A 1C, FES, ADIFF, VIDH, FERR, URIC, GFR, ANEU, CBC, RFP #### [place] [address] #### C3C4A, SPE #### [place] [address] UA RBC 5-10 Abnormal None Seen [facility] ([place] Comment on above: Performed By: #### A 1C, FES, ADIFF, VIDH, FERR, URIC, GFR, ANEU, CBC, RFP #### [place] [address] #### C3C4A, SPE #### [place] [address] UA Squam Epithelial 5-10 Abnormal None Seen [facility] ([place] Comment on above: Performed By: #### A 1C, FES, ADIFF, VIDH, FERR, URIC, GFR, ANEU, CBC, RFP #### [place] [address] #### C3C4A, SPE #### [address] [address] UA WBC LOADED Abnormal None Seen [facility] ([place] Comment on above: Performed By: #### A 1C, FES, ADIFF, VIDH, FERR, URIC, GFR, ANEU, CBC, RFP #### [address] [address] #### C3C4A, SPE #### [address] [address] A1Con 04-09-2023 HbA1c (Bld) [Mass fraction] 7.1 % High 4.3-6.4 [facility] ([place] Comment on above: Performed By: #### A 1C, FES, ADIFF, VIDH, FERR, URIC, GFR, ANEU, CBC, RFP #### [address] [address] #### C3C4A, SPE #### [place] [address] [id number] 04-09-2023 Complement C3A 166.0 mg/dL Normal 90.0-170.0 [facility] ([place] Comment on above: Result Comment: No te - New Reference Range in effect 20 Performed By: #### M YCO #### [place] [address] Complement C4A 50.0 mg/dL High 16.0-38.0 [facility] ([place] Comment on above: Performed By: #### M YCO #### [address] [address] CBCon 04-09-2023 Erythrocyte distribution width (RBC) [Ratio] 18.5 % High 11.5-14.5 [facility] ([place] Comment on above: Performed By: #### A 1C, FES, ADIFF, VIDH, FERR, URIC, GFR, ANEU, CBC, RFP #### [address] [address] #### C3C4A, SPE #### [address] [address] Hematocrit (Bld) [Volume fraction] 34.4 % Low 37.0-47.0 [facility] ([place] Comment on above: Performed By: #### A 1C, FES, ADIFF, VIDH, FERR, URIC, GFR, ANEU, CBC, RFP #### [place] [address] #### C3C4A, SPE #### [place] [address] Hgb 10.6 G/dL Low 12.0-16.0 [facility] ([place] Comment on above: Performed By: #### A 1C, FES, ADIFF, VIDH, FERR, URIC, GFR, ANEU, CBC, RFP #### [place] [address] #### C3C4A, SPE #### [place] [address] MCH (RBC) [Entitic mass] 24.6 pg Low 27.0-31.2 [facility] ([place] Comment on above: Performed By: #### A 1C, FES, ADIFF, VIDH, FERR, URIC, GFR, ANEU, CBC, RFP #### [place] [address] #### C3C4A, SPE #### [place] [address] MCHC 30.8 G/dL Low 33.0-37.0 [facility] ([place] Comment on above: Performed By: #### A 1C, FES, ADIFF, VIDH, FERR, URIC, GFR, ANEU, CBC, RFP #### [place] [address] #### C3C4A, SPE #### [place] [address] MCV (RBC) [Entitic vol] 79.9 fL Low 80.0-94.0 [facility] ([place]) Comment on above: Performed By: #### A 1C, FES, ADIFF, VIDH, FERR, URIC, GFR, ANEU, CBC, RFP #### [place] [address] #### C3C4A, SPE #### [place] [address] Platelet 515 10 3/mcL High 130-400 [facility] ([place] Comment on above: Performed By: #### A 1C, FES, ADIFF, VIDH, FERR, URIC, GFR, ANEU, CBC, RFP #### [place] [address] #### C3C4A, SPE #### [place] [address] Platelet mean volume (Bld) [Entitic vol] 7.3 fL Low 7.4-10.4 [facility] ([place] Comment on above: Performed By: #### A 1C, FES, ADIFF, VIDH, FERR, URIC, GFR, ANEU, CBC, RFP #### [place] [address] #### C3C4A, SPE #### [place] [address] RBC 4.30 10 6/mcL Normal 4.20-5.40 [facility] ([place] Comment on above: Performed By: #### A 1C, FES, ADIFF, VIDH, FERR, URIC, GFR, ANEU, CBC, RFP #### [place] [address] #### C3C4A, SPE #### [place] [address] WBC 11.7 10 3/mcL High 4.6-10.8 [facility] ([place] Comment on above: Performed By: #### A 1C, FES, ADIFF, VIDH, FERR, URIC, GFR, ANEU, CBC, RFP #### [place] [address] #### C3C4A, SPE #### [place] [address] CRURon 04-09-2023 U Creatinine 49.9 mg/dL Normal 28.0-117.0 [facility] ([place] Comment on above: Performed By: #### A 1C, FES, ADIFF, VIDH, FERR, URIC, GFR, ANEU, CBC, RFP #### [place] [address] #### C3C4A, SPE #### [place] [address] Gretchen 04-09-2023 Ferritin [Mass/Vol] 19.0 ng/mL Normal 8.0-252.0 [facility] ([place] Comment on above: Performed By: #### A 1C, FES, ADIFF, VIDH, FERR, URIC, GFR, ANEU, CBC, RFP #### [place] [address] #### C3C4A, SPE #### [place] [address] FESon 04-09-2023 Iron [Mass/Vol] 74 ug/dL Normal 50-170 [facility] ([place] Comment on above: Performed By: #### A 1C, FES, ADIFF, VIDH, FERR, URIC, GFR, ANEU, CBC, RFP #### [place] [address] #### C3C4A, SPE #### [place] [address] Iron Sat 20 % Normal [facility] ([place] Comment on above: Performed By: #### A 1C, FES, ADIFF, VIDH, FERR, URIC, GFR, ANEU, CBC, RFP #### [place] [address] #### C3C4A, SPE #### [place] [address] TIBC 369 mcg/dL Normal 250-450 [facility] ([place] Comment on above: Performed By: #### A 1C, FES, ADIFF, VIDH, FERR, URIC, GFR, ANEU, CBC, RFP #### [place] [address] #### C3C4A, SPE #### [place] [address] LABORATORYOrdered By: Fay Morgan on 04-09-2023 Appearance (U) Cloudy *ABN* (04/09/23 3:17 PM) Invalid Interpretation Code Clear AO Auto Urine SS Bacteria LM.HPF (Urine sed) [#/Area] 2 /[HPF] Invalid Interpretation Code AO Auto Urine SS Bilirubin Ql (U) Negative (04/09/23 3:17 PM) Invalid Interpretation Code Negative AO Auto Urine SS Color (U) Yellow (04/09/23 3:17 PM) Invalid Interpretation Code AO Auto Urine SS Glucose Test strip (U) [Mass/Vol] Negative Invalid Interpretation Code Negative AO Auto Urine SS Hemoglobin Auto test strip (U) [Mass/Vol] Trace *ABN* (04/09/23 3:17 PM) Invalid Interpretation Code Negative AO Auto Urine SS Ketones Ql (U) Negative Invalid Interpretation Code Negative AO Auto Urine SS UA Leuk Est Large *ABN* (04/09/23 3:17 PM) Invalid Interpretation Code Negative AO Auto Urine SS UA Nitrite Negative (04/09/23 3:17 PM) Invalid Interpretation Code Negative AO Auto Urine SS UA pH 5.5 (04/09/23 3:17 PM) Invalid Interpretation Code 5.0 - 8.0 AO Auto Urine SS UA Protein Negative Invalid Interpretation Code Negative AO Auto Urine SS UA RBC 5-10 /HPF Invalid Interpretation Code None Seen AO Auto Urine SS UA Spec Grav 1.010 *ABN* (04/09/23 3:17 PM) Invalid Interpretation Code 1.015-1.02 5 AO Auto Urine SS UA Specimen Type Clean Catch (04/09/23 3:17 PM) Invalid Interpretation Code AO Auto Urine SS UA Squam Epithelial 5-10 /HPF Invalid Interpretation Code None Seen AO Auto Urine SS UA Urobilinogen 0.2 E.U./dL Invalid Interpretation Code 0.2-1.0 AO Auto Urine SS WBC LM.HPF (Urine sed) [#/Area] LOADED /HPF Invalid Interpretation Code None Seen AO Auto Urine SS LABORATORYOrdered By: SYSTEM SYSTEM on 04-09-2023 Creatinine (U) [Mass/Vol] 49.9 mg/dL Invalid Interpretation Code 28.0 - 117.0 mg/dL AO ADM SS Protein (U) [Mass/Vol] 19 mg/dL Invalid Interpretation Code 0 - 11 mg/dL AO ADM SS 25-hydroxyvitamin D3 [Mass/Vol] 45.0 ng/mL Invalid Interpretation Code AO ADM SS Comment on above: Interpretive Data: I nterpretive Values Based on Total 25(OH) Vitamin D: Deficient <20 ng/mL Insufficient 20 - <30 ng/mL Sufficient 30-100 ng/mL Albumin BCP dye [Mass/Vol] 3.8 G/dL Invalid Interpretation Code 3.4 - 4.8 G/dL AO ADM SS Basophil, Absolute 0.1 103/mcL Invalid Interpretation Code 0.0 - 0.2 10^3/mcL AO Workflow SS Basophils/100 WBC (Bld) 0.6 % Invalid Interpretation Code 0.0 - 2.5 % AO Workflow SS Calcium [Mass/Vol] 9.6 mg/dL Invalid Interpretation Code 8.4 - 10.2 mg/dL AO ADM SS Chloride [Moles/Vol] 98 mmol/L Invalid Interpretation Code 98 - 107 mmol/L AO ADM SS CO2 [Moles/Vol] 28 mmol/L Invalid Interpretation Code 23 - 31 mmol/L AO ADM SS Complement C3 [Mass/Vol] 166.0 mg/dL Invalid Interpretation Code 90.0 - 170.0 mg/dL AH ADM SS Comment on above: Interpretive Data: * *Note - New Reference Range in effect 20 Complement C4 [Mass/Vol] 50.0 mg/dL Invalid Interpretation Code 16.0 - 38.0 mg/dL AH ADM SS Creatinine [Mass/Vol] 1.18 mg/dL Invalid Interpretation Code 0.55 - 1.02 mg/dL AO ADM SS Electrolyte Balance 12.0 mEq/L Invalid Interpretation Code 4.0 - 15.0 mEq/L AO ADM SS Eosinophil, Absolute 0.2 103/mcL Invalid Interpretation Code 0.0 - 0.4 10^3/mcL AO Workflow SS Eosinophils/100 WBC (Bld) 2.1 % Invalid Interpretation Code 0.0 - 7.0 % AO Workflow SS Erythrocyte distribution width (RBC) [Ratio] 18.5 % Invalid Interpretation Code 11.5 - 14.5 % AO Workflow SS Ferritin [Mass/Vol] 19.0 ng/mL Invalid Interpretation Code 8.0 - 252.0 ng/mL AO ADM SS GFR/1.73 sq M.predicted among blacks MDRD (S/P/Bld) [Vol rate/Area] 53 ml/min/1.73sqm Invalid Interpretation Code AO Chemistry S Comment on above: Interpretive Data: GFR Population mean for , Non- Americans Ages 20-29 = 116 mL/min/1.73 sq.m. Ages 30-39 = 107 mL/min/1.73 sq.m. Ages 40-49 = 99 mL/min/1.73 sq.m. Ages 50-59 = 93 mL/min/1.73 sq.m. Ages 60-69 = 85 mL/min/1.73 sq.m. Ages 70+ = 75 mL/min/1.73 sq.m. Chronic Kidney Disease: Less than 60 mL/min/1.73 square meters End Stage Renal Disease: Less than 15 mL/min/1.73 square meters GFR/1.73 sq M.predicted among non-blacks MDRD (S/P/Bld) [Vol rate/Area] 44 ml/min/1.73sqm Invalid Interpretation Code AO Chemistry S Comment on above: Interpretive Data: GFR Population mean for , Non- Americans Ages 20-29 = 116 mL/min/1.73 sq.m. Ages 30-39 = 107 mL/min/1.73 sq.m. Ages 40-49 = 99 mL/min/1.73 sq.m. Ages 50-59 = 93 mL/min/1.73 sq.m. Ages 60-69 = 85 mL/min/1.73 sq.m. Ages 70+ = 75 mL/min/1.73 sq.m. Chronic Kidney Disease: Less than 60 mL/min/1.73 square meters End Stage Renal Disease: Less than 15 mL/min/1.73 square meters Glucose [Mass/Vol] 129 mg/dL Invalid Interpretation Code 83 - 110 mg/dL AO ADM SS HbA1c (Bld) [Mass fraction] 7.1 % Invalid Interpretation Code 4.3 - 6.4 % AO ADM SS Hematocrit (Bld) [Volume fraction] 34.4 % Invalid Interpretation Code 37.0 - 47.0 % AO Workflow SS Hemoglobin (Bld) [Mass/Vol] 10.6 G/dL Invalid Interpretation Code 12.0 - 16.0 G/dL AO Workflow SS Iron [Mass/Vol] 74 ug/dL Invalid Interpretation Code 50 - 170 mcg/dL AO ADM SS Iron binding capacity [Mass/Vol] 369 mcg/dL Invalid Interpretation Code 250 - 450 mcg/dL AO ADM SS Iron Sat 20 1 Invalid Interpretation Code AO ADM SS Lymphocyte, Absolute 2.1 103/mcL Invalid Interpretation Code 0.8 - 3.9 10^3/mcL AO Workflow SS Lymphocytes/100 WBC (Bld) 17.6 % Invalid Interpretation Code 10.0 - 50.0 % AO Workflow SS MCH (RBC) [Entitic mass] 24.6 pg Invalid Interpretation Code 27.0 - 31.2 pg AO Workflow SS MCHC 30.8 G/dL Invalid Interpretation Code 33.0 - 37.0 G/dL AO Workflow SS MCV (RBC) [Entitic vol] 79.9 fL Invalid Interpretation Code 80.0 - 94.0 fL AO Workflow SS Monocyte, Absolute 1.0 103/mcL Invalid Interpretation Code 0.2 - 1.0 10^3/mcL AO Workflow SS Monocytes/100 WBC (Bld) 8.8 % Invalid Interpretation Code 1.7 - 13.0 % AO Workflow SS Neutrophil, Absolute 8.3 103/mcL Invalid Interpretation Code 2.9 - 6.2 10^3/mcL AO Workflow SS Neutrophils/100 WBC (Bld) 70.9 % Invalid Interpretation Code 37.0 - 80.0 % AO Workflow SS Phosphate [Mass/Vol] 4.3 mg/dL Invalid Interpretation Code 2.3 - 4.1 mg/dL AO ADM SS Platelet mean volume (Bld) [Entitic vol] 7.3 fL Invalid Interpretation Code 7.4 - 10.4 fL AO Workflow SS Platelets (Bld) [#/Vol] 515 103/mcL Invalid Interpretation Code 130 - 400 10^3/mcL AO Workflow SS Potassium [Moles/Vol] 5.2 mmol/L Invalid Interpretation Code 3.5 - 5.1 mmol/L AO ADM SS RBC (Bld) [#/Vol] 4.30 106/mcL Invalid Interpretation Code 4.20 - 5.40 10^6/mcL AO Workflow SS Sodium [Moles/Vol] 138 mmol/L Invalid Interpretation Code 136 - 145 mmol/L AO ADM SS Urea nitrogen [Mass/Vol] 52 mg/dL Invalid Interpretation Code 7 - 18 mg/dL AO ADM SS Urea nitrogen/Creatinine [Mass ratio] 44 ratio Invalid Interpretation Code 7 - 27 ratio AO ADM SS Uric Acid Lvl 5.4 mg/dL Invalid Interpretation Code 2.6 - 6.2 mg/dL AO ADM SS WBC (Bld) [#/Vol] 11.7 103/mcL Invalid Interpretation Code 4.6 - 10.8 10^3/mcL AO Workflow SS LABORATORYOrdered By: Aakash Gallardo on 04-09-2023 Protein [Mass/Vol] 7.2 G/dL Invalid Interpretation Code 5.7 - 8.2 G/dL AH ADM SS Comment on above: Interpretive Data: * *Note - New Reference Range in effect 20 PRURon 04-09-2023 U Protein 19 mg/dL High 0-11 [facility] ([place]) Comment on above: Performed By: #### A 1C, FES, ADIFF, VIDH, FERR, URIC, GFR, ANEU, CBC, RFP #### [address] [address] #### C3C4A, SPE #### [address] [address] RFPon 04-09-2023 Albumin Level 3.8 G/dL Normal 3.4-4.8 [facility] ([place]) Comment on above: Performed By: #### A 1C, FES, ADIFF, VIDH, FERR, URIC, GFR, ANEU, CBC, RFP #### [address] [address] #### C3C4A, SPE #### [address] [address] BUN/Creatinine Ratio 44 ratio High 7-27 [facility] ([place]) Comment on above: Performed By: #### A 1C, FES, ADIFF, VIDH, FERR, URIC, GFR, ANEU, CBC, RFP #### [address] [address] #### C3C4A, SPE #### [address] [address] Calcium [Mass/Vol] 9.6 mg/dL Normal 8.4-10.2 [facility] ([place]) Comment on above: Performed By: #### A 1C, FES, ADIFF, VIDH, FERR, URIC, GFR, ANEU, CBC, RFP #### [address] [address] #### C3C4A, SPE #### [address] [address] Chloride [Moles/Vol] 98 mmol/L Normal 98-107 [facility] ([place]) Comment on above: Performed By: #### A 1C, FES, ADIFF, VIDH, FERR, URIC, GFR, ANEU, CBC, RFP #### [place] [address] #### C3C4A, SPE #### [address] [address] CO2 [Moles/Vol] 28 mmol/L Normal 23-31 [facility] ([place] Comment on above: Performed By: #### A 1C, FES, ADIFF, VIDH, FERR, URIC, GFR, ANEU, CBC, RFP #### [place] [address] #### C3C4A, SPE #### [address] [address] Creatinine [Mass/Vol] 1.18 mg/dL High 0.55-1.02 [facility] ([place]) Comment on above: Performed By: #### A 1C, FES, ADIFF, VIDH, FERR, URIC, GFR, ANEU, CBC, RFP #### [place] [address] #### C3C4A, SPE #### [address] [address] Electrolyte Balance 12.0 mEq/L Normal 4.0-15.0 [facility] ([place]) Comment on above: Performed By: #### A 1C, FES, ADIFF, VIDH, FERR, URIC, GFR, ANEU, CBC, RFP #### [place] [address] #### C3C4A, SPE #### [address] [address] Glucose [Mass/Vol] 129 mg/dL High 83-110 [facility] ([place]) Comment on above: Performed By: #### A 1C, FES, ADIFF, VIDH, FERR, URIC, GFR, ANEU, CBC, RFP #### [address] [address] #### C3C4A, SPE #### [address] [address] Phosphate [Mass/Vol] 4.3 mg/dL High 2.3-4.1 [facility] ([place] Comment on above: Performed By: #### A 1C, FES, ADIFF, VIDH, FERR, URIC, GFR, ANEU, CBC, RFP #### [address] [address] #### C3C4A, SPE #### [address] [address] Potassium [Moles/Vol] 5.2 mmol/L High 3.5-5.1 [facility] ([place]) Comment on above: Performed By: #### A 1C, FES, ADIFF, VIDH, FERR, URIC, GFR, ANEU, CBC, RFP #### [address] [address] #### C3C4A, SPE #### [address] [address] Sodium [Moles/Vol] 138 mmol/L Normal 136-145 [facility] ([place] Comment on above: Performed By: #### A 1C, FES, ADIFF, VIDH, FERR, URIC, GFR, ANEU, CBC, RFP #### [address] [address] #### C3C4A, SPE #### [address] [address] Urea nitrogen [Mass/Vol] 52 mg/dL High 7-18 [facility] ([place] Comment on above: Performed By: #### A 1C, FES, ADIFF, VIDH, FERR, URIC, GFR, ANEU, CBC, RFP #### [address] [address] #### C3C4A, SPE #### [address] [address] SPEon 09-13-2023 Total Protein 7.2 G/dL Normal 5.7-8.2 [facility] ([place]) Comment on above: Result Comment: No te - New Reference Range in effect 20 Performed By: #### M YCO #### [place] [address] UAon 04-09-2023 Color (U) Yellow Normal [facility] ([place]) Comment on above: Performed By: #### A 1C, FES, ADIFF, VIDH, FERR, URIC, GFR, ANEU, CBC, RFP #### [address] [address] #### C3C4A, SPE #### [place] [address] Glucose (U) [Mass/Vol] Negative Normal Negative [facility] ([place]) Comment on above: Performed By: #### A 1C, FES, ADIFF, VIDH, FERR, URIC, GFR, ANEU, CBC, RFP #### [address] [address] #### C3C4A, SPE #### [place] [address] Ketones Ql (U) Negative Normal Negative [facility] ([place] Comment on above: Performed By: #### A 1C, FES, ADIFF, VIDH, FERR, URIC, GFR, ANEU, CBC, RFP #### [address] [address] #### C3C4A, SPE #### [place] [address] UA Appear Cloudy Abnormal Clear [facility] ([place] Comment on above: Performed By: #### A 1C, FES, ADIFF, VIDH, FERR, URIC, GFR, ANEU, CBC, RFP #### [address] [address] #### C3C4A, SPE #### [place] [address] UA Blood Trace Abnormal Negative [facility] ([place] Comment on above: Performed By: #### A 1C, FES, ADIFF, VIDH, FERR, URIC, GFR, ANEU, CBC, RFP #### [place] [address] #### C3C4A, SPE #### [address] [address] UA Leuk Est Large Abnormal Negative [facility] ([place] Comment on above: Performed By: #### A 1C, FES, ADIFF, VIDH, FERR, URIC, GFR, ANEU, CBC, RFP #### [place] [address] #### C3C4A, SPE #### [place] [address] UA Nitrite Negative Normal Negative [facility] ([place] Comment on above: Performed By: #### A 1C, FES, ADIFF, VIDH, FERR, URIC, GFR, ANEU, CBC, RFP #### [place] [address] #### C3C4A, SPE #### [place] [address] UA pH 5.5 Normal 5.0 - 8.0 [facility] ([place] Comment on above: Performed By: #### A 1C, FES, ADIFF, VIDH, FERR, URIC, GFR, ANEU, CBC, RFP #### [place] [address] #### C3C4A, SPE #### [place] [address] UA Protein Negative Normal Negative [facility] ([place] Comment on above: Performed By: #### A 1C, FES, ADIFF, VIDH, FERR, URIC, GFR, ANEU, CBC, RFP #### [place] [address] #### C3C4A, SPE #### [place] [id number] UA Spec Grav 1.010 Abnormal 1.015-1.02 5 [facility] ([place] Comment on above: Performed By: #### A 1C, FES, ADIFF, VIDH, FERR, URIC, GFR, ANEU, CBC, RFP #### [place] [address] #### C3C4A, SPE #### [place] [address] UA Specimen Type Clean Catch Normal [facility] ([place] Comment on above: Performed By: #### A 1C, FES, ADIFF, VIDH, FERR, URIC, GFR, ANEU, CBC, RFP #### [place] [address] #### C3C4A, SPE #### [place] [address] UA Urobilinogen 0.2 E.U./dL Normal 0.2-1.0 [facility] ([place] Comment on above: Performed By: #### A 1C, FES, ADIFF, VIDH, FERR, URIC, GFR, ANEU, CBC, RFP #### [place] [address] #### C3C4A, SPE #### [place] [address] Urobilinogen (U) [Mass/Vol] Negative Normal Negative [facility] ([place] Comment on above: Performed By: #### A 1C, FES, ADIFF, VIDH, FERR, URIC, GFR, ANEU, CBC, RFP #### [place] [address] #### C3C4A, SPE #### [place] [address] URICon 04-09-2023 Uric Acid Lvl 5.4 mg/dL Normal 2.6-6.2 [facility] ([place] Comment on above: Performed By: #### A 1C, FES, ADIFF, VIDH, FERR, URIC, GFR, ANEU, CBC, RFP #### [place] [address] #### C3C4A, SPE #### [place] [address] VIon 04-09-2023 Vit. D 25-Hydroxy 45.0 ng/mL Normal [facility] ([place]) Comment on above: Result Comment: Inte rpretive Values Based on Total 25(OH) Vitamin D: Deficient <20 ng/mL Insufficient 20 - <30 ng/mL Sufficient 30-100 ng/mL Performed By: #### M YCO #### [facility] [address] [place] [id number] LABORATORYOrdered By: Baljit Johnson on 01-09-2023 Basophil, Absolute 0.1 103/mcL Invalid Interpretation Code 0.0 - 0.2 10^3/mcL AO Workflow SS Basophils/100 WBC (Bld) 0.7 % Invalid Interpretation Code 0.0 - 2.5 % AO Workflow SS Eosinophil, Absolute 0.1 103/mcL Invalid Interpretation Code 0.0 - 0.4 10^3/mcL AO Workflow SS Eosinophils/100 WBC (Bld) 1.0 % Invalid Interpretation Code 0.0 - 7.0 % AO Workflow SS Erythrocyte distribution width (RBC) [Ratio] 17.8 % Invalid Interpretation Code 11.5 - 14.5 % AO Workflow SS Hematocrit (Bld) [Volume fraction] 33.2 % Invalid Interpretation Code 37.0 - 47.0 % AO Workflow SS Hemoglobin (Bld) [Mass/Vol] 10.3 G/dL Invalid Interpretation Code 12.0 - 16.0 G/dL AO Workflow SS Lymphocyte, Absolute 2.3 103/mcL Invalid Interpretation Code 0.8 - 3.9 10^3/mcL AO Workflow SS Lymphocytes/100 WBC (Bld) 15.6 % Invalid Interpretation Code 10.0 - 50.0 % AO Workflow SS MCH (RBC) [Entitic mass] 25.4 pg Invalid Interpretation Code 27.0 - 31.2 pg AO Workflow SS MCHC 31.2 G/dL Invalid Interpretation Code 33.0 - 37.0 G/dL AO Workflow SS MCV (RBC) [Entitic vol] 81.6 fL Invalid Interpretation Code 80.0 - 94.0 fL AO Workflow SS Monocyte, Absolute 0.7 103/mcL Invalid Interpretation Code 0.2 - 1.0 10^3/mcL AO Workflow SS Monocytes/100 WBC (Bld) 4.8 % Invalid Interpretation Code 1.7 - 13.0 % AO Workflow SS Neutrophil, Absolute 11.7 103/mcL Invalid Interpretation Code 2.9 - 6.2 10^3/mcL AO Workflow SS Neutrophils/100 WBC (Bld) 77.9 % Invalid Interpretation Code 37.0 - 80.0 % AO Workflow SS Platelet mean volume (Bld) [Entitic vol] 7.4 fL Invalid Interpretation Code 7.4 - 10.4 fL AO Workflow SS Platelets (Bld) [#/Vol] 502 103/mcL Invalid Interpretation Code 130 - 400 10^3/mcL AO Workflow SS RBC (Bld) [#/Vol] 4.07 106/mcL Invalid Interpretation Code 4.20 - 5.40 10^6/mcL AO Workflow SS WBC (Bld) [#/Vol] 15.0 103/mcL Invalid Interpretation Code 4.6 - 10.8 10^3/mcL AO Workflow SS LABORATORYOrdered By: SYSTEM SYSTEM on 01-09-2023 Calcium [Mass/Vol] 10.0 mg/dL Invalid Interpretation Code 8.4 - 10.2 mg/dL AO ADM SS Chloride [Moles/Vol] 101 mmol/L Invalid Interpretation Code 98 - 107 mmol/L AO ADM SS CO2 [Moles/Vol] 25 mmol/L Invalid Interpretation Code 23 - 31 mmol/L AO ADM SS Creatinine [Mass/Vol] 1.16 mg/dL Invalid Interpretation Code 0.55 - 1.02 mg/dL AO ADM SS Electrolyte Balance 12.0 mEq/L Invalid Interpretation Code 4.0 - 15.0 mEq/L AO ADM SS Ferritin [Mass/Vol] 26.0 ng/mL Invalid Interpretation Code 8.0 - 252.0 ng/mL AO ADM SS GFR/1.73 sq M.predicted among blacks MDRD (S/P/Bld) [Vol rate/Area] 54 ml/min/1.73sqm Invalid Interpretation Code AO Chemistry S GFR/1.73 sq M.predicted among non-blacks MDRD (S/P/Bld) [Vol rate/Area] 45 ml/min/1.73sqm Invalid Interpretation Code AO Chemistry S Glucose [Mass/Vol] 188 mg/dL Invalid Interpretation Code 83 - 110 mg/dL AO ADM SS Iron [Mass/Vol] 34 ug/dL Invalid Interpretation Code 50 - 170 mcg/dL AO ADM SS Potassium [Moles/Vol] 5.4 mmol/L Invalid Interpretation Code 3.5 - 5.1 mmol/L AO ADM SS Sodium [Moles/Vol] 138 mmol/L Invalid Interpretation Code 136 - 145 mmol/L AO ADM SS Urea nitrogen [Mass/Vol] 43 mg/dL Invalid Interpretation Code 7 - 18 mg/dL AO ADM SS Urea nitrogen/Creatinine [Mass ratio] 37 ratio Invalid Interpretation Code 7 - 27 ratio AO ADM SS LABORATORYOrdered By: SYSTEM SYSTEM on 2022 Albumin BCP dye [Mass/Vol] 3.4 G/dL Invalid Interpretation Code 3.4 - 4.8 G/dL AO ADM SS Albumin/Globulin [Mass ratio] 1.1 {ratio} Invalid Interpretation Code 1.1 - 2.5 ratio AO ADM SS ALP [Catalytic activity/Vol] 65 U/L Invalid Interpretation Code 40 - 135 U/L AO ADM SS ALT With P-5'-P [Catalytic activity/Vol] 20 U/L Invalid Interpretation Code 14 - 59 U/L AO ADM SS AST With P-5'-P [Catalytic activity/Vol] 14 U/L Invalid Interpretation Code 10 - 40 U/L AO ADM SS Bilirubin [Mass/Vol] 0.2 mg/dL Invalid Interpretation Code 0.2 - 1.0 mg/dL AO ADM SS Calcium [Mass/Vol] 8.7 mg/dL Invalid Interpretation Code 8.4 - 10.2 mg/dL AO ADM SS Chloride [Moles/Vol] 101 mmol/L Invalid Interpretation Code 98 - 107 mmol/L AO ADM SS CO2 [Moles/Vol] 25 mmol/L Invalid Interpretation Code 23 - 31 mmol/L AO ADM SS Creatinine [Mass/Vol] 1.35 mg/dL Invalid Interpretation Code 0.55 - 1.02 mg/dL AO ADM SS Electrolyte Balance 12.0 mEq/L Invalid Interpretation Code 4.0 - 15.0 mEq/L AO ADM SS GFR/1.73 sq M.predicted among blacks MDRD (S/P/Bld) [Vol rate/Area] 46 ml/min/1.73sqm Invalid Interpretation Code AO Chemistry S GFR/1.73 sq M.predicted among non-blacks MDRD (S/P/Bld) [Vol rate/Area] 38 ml/min/1.73sqm Invalid Interpretation Code AO Chemistry S Globulin 3.0 G/dL Invalid Interpretation Code AO ADM SS Glucose [Mass/Vol] 301 mg/dL Invalid Interpretation Code 83 - 110 mg/dL AO ADM SS Potassium [Moles/Vol] 4.6 mmol/L Invalid Interpretation Code 3.5 - 5.1 mmol/L AO ADM SS Protein [Mass/Vol] 6.4 G/dL Invalid Interpretation Code 6.4 - 8.2 G/dL AO ADM SS Sodium [Moles/Vol] 138 mmol/L Invalid Interpretation Code 136 - 145 mmol/L AO ADM SS Urea nitrogen [Mass/Vol] 31 mg/dL Invalid Interpretation Code 7 - 18 mg/dL AO ADM SS Urea nitrogen/Creatinine [Mass ratio] 23 ratio Invalid Interpretation Code 7 - 27 ratio AO ADM SS LABORATORYOrdered By: Lauren Fletcher on 2022 Basophil, Absolute 0.1 103/mcL Invalid Interpretation Code 0.0 - 0.2 10^3/mcL AO Workflow SS Basophils/100 WBC (Bld) 0.8 % Invalid Interpretation Code 0.0 - 2.5 % AO Workflow SS Eosinophil, Absolute 0.2 103/mcL Invalid Interpretation Code 0.0 - 0.4 10^3/mcL AO Workflow SS Eosinophils/100 WBC (Bld) 1.9 % Invalid Interpretation Code 0.0 - 7.0 % AO Workflow SS Erythrocyte distribution width (RBC) [Ratio] 16.6 % Invalid Interpretation Code 11.5 - 14.5 % AO Workflow SS Hematocrit (Bld) [Volume fraction] 31.5 % Invalid Interpretation Code 37.0 - 47.0 % AO Workflow SS Hemoglobin (Bld) [Mass/Vol] 9.9 G/dL Invalid Interpretation Code 12.0 - 16.0 G/dL AO Workflow SS Lymphocyte, Absolute 2.0 103/mcL Invalid Interpretation Code 0.8 - 3.9 10^3/mcL AO Workflow SS Lymphocytes/100 WBC (Bld) 18.8 % Invalid Interpretation Code 10.0 - 50.0 % AO Workflow SS MCH (RBC) [Entitic mass] 25.5 pg Invalid Interpretation Code 27.0 - 31.2 pg AO Workflow SS MCHC 31.3 G/dL Invalid Interpretation Code 33.0 - 37.0 G/dL AO Workflow SS MCV (RBC) [Entitic vol] 81.5 fL Invalid Interpretation Code 80.0 - 94.0 fL AO Workflow SS Monocyte, Absolute 0.8 103/mcL Invalid Interpretation Code 0.2 - 1.0 10^3/mcL AO Workflow SS Monocytes/100 WBC (Bld) 7.5 % Invalid Interpretation Code 1.7 - 13.0 % AO Workflow SS Neutrophil, Absolute 7.4 103/mcL Invalid Interpretation Code 2.9 - 6.2 10^3/mcL AO Workflow SS Neutrophils/100 WBC (Bld) 71.0 % Invalid Interpretation Code 37.0 - 80.0 % AO Workflow SS Platelet mean volume (Bld) [Entitic vol] 7.4 fL Invalid Interpretation Code 7.4 - 10.4 fL AO Workflow SS Platelets (Bld) [#/Vol] 468 103/mcL Invalid Interpretation Code 130 - 400 10^3/mcL AO Workflow SS RBC (Bld) [#/Vol] 3.87 106/mcL Invalid Interpretation Code 4.20 - 5.40 10^6/mcL AO Workflow SS WBC (Bld) [#/Vol] 10.4 103/mcL Invalid Interpretation Code 4.6 - 10.8 10^3/mcL AO Workflow SS LABORATORYOrdered By: SYSTEM SYSTEM on 09-25-2022 Potassium [Moles/Vol] 5.2 mmol/L Invalid Interpretation Code 3.5 - 5.1 mmol/L AO ADM SS LABORATORYOrdered By: Lauren Fletcher on 09-19-2022 Albumin DL <= 20 mg/L (U) [Mass/Vol] 1011 mcg/dL Invalid Interpretation Code AO ADM SS Albumin/Creatinine DL <= 20 mg/L (U) [Mass ratio] 30 mcg/mg Invalid Interpretation Code 0 - 30 mcg/mg AO ADM SS Creatinine (U) [Mass/Vol] 33.6 mg/dL Invalid Interpretation Code 28.0 - 117.0 mg/dL AO ADM SS LABORATORYOrdered By: [employer] SYSTEM on 09-19-2022 Albumin BCP dye [Mass/Vol] 3.8 G/dL Invalid Interpretation Code 3.4 - 4.8 G/dL AO ADM SS Albumin/Globulin [Mass ratio] 1.3 {ratio} Invalid Interpretation Code 1.1 - 2.5 ratio AO ADM SS ALP [Catalytic activity/Vol] 56 U/L Invalid Interpretation Code 40 - 135 U/L AO ADM SS ALT With P-5'-P [Catalytic activity/Vol] 22 U/L Invalid Interpretation Code 14 - 59 U/L AO ADM SS AST With P-5'-P [Catalytic activity/Vol] 20 U/L Invalid Interpretation Code 10 - 40 U/L AO ADM SS Bilirubin [Mass/Vol] 0.2 mg/dL Invalid Interpretation Code 0.2 - 1.0 mg/dL AO ADM SS Calcium [Mass/Vol] 8.7 mg/dL Invalid Interpretation Code 8.4 - 10.2 mg/dL AO ADM SS Chloride [Moles/Vol] 101 mmol/L Invalid Interpretation Code 98 - 107 mmol/L AO ADM SS CO2 [Moles/Vol] 26 mmol/L Invalid Interpretation Code 23 - 31 mmol/L AO ADM SS Creatinine [Mass/Vol] 1.22 mg/dL Invalid Interpretation Code 0.55 - 1.02 mg/dL AO ADM SS Electrolyte Balance 8.0 mEq/L Invalid Interpretation Code 4.0 - 15.0 mEq/L AO ADM SS Ferritin [Mass/Vol] 13.0 ng/mL Invalid Interpretation Code 8.0 - 252.0 ng/mL AO ADM SS GFR 52 ml/min/1.73sqm Invalid Interpretation Code AO Chemistry S GFR Non- 43 ml/min/1.73sqm Invalid Interpretation Code AO Chemistry S Globulin 3.0 G/dL Invalid Interpretation Code AO ADM SS Glucose [Mass/Vol] 123 mg/dL Invalid Interpretation Code 83 - 110 mg/dL AO ADM SS HbA1c (Bld) [Mass fraction] 7.1 % Invalid Interpretation Code 4.3 - 6.4 % AO ADM SS Iron [Mass/Vol] 71 ug/dL Invalid Interpretation Code 50 - 170 mcg/dL AO ADM SS Potassium [Moles/Vol] 5.9 mmol/L Invalid Interpretation Code 3.5 - 5.1 mmol/L AO ADM SS Protein [Mass/Vol] 6.8 G/dL Invalid Interpretation Code 6.4 - 8.2 G/dL AO ADM SS Sodium [Moles/Vol] 135 mmol/L Invalid Interpretation Code 136 - 145 mmol/L AO ADM SS Urea nitrogen [Mass/Vol] 39 mg/dL Invalid Interpretation Code 7 - 18 mg/dL AO ADM SS Urea nitrogen/Creatinine [Mass ratio] 32 ratio Invalid Interpretation Code 7 - 27 ratio AO ADM SS Vit. D 25-Hydroxy 50.3 ng/mL Invalid Interpretation Code AO ADM SS LABORATORYOrdered By: Lupis Robert on 09-19-2022 Basophil, Absolute 0.1 103/mcL Invalid Interpretation Code 0.0 - 0.2 10^3/mcL AO Workflow SS Basophils/100 WBC (Bld) 0.8 % Invalid Interpretation Code 0.0 - 2.5 % AO Workflow SS Eosinophil, Absolute 0.3 103/mcL Invalid Interpretation Code 0.0 - 0.4 10^3/mcL AO Workflow SS Eosinophils/100 WBC (Bld) 3.8 % Invalid Interpretation Code 0.0 - 7.0 % AO Workflow SS Erythrocyte distribution width (RBC) [Ratio] 16.0 % Invalid Interpretation Code 11.5 - 14.5 % AO Workflow SS Hematocrit (Bld) [Volume fraction] 31.0 % Invalid Interpretation Code 37.0 - 47.0 % AO Workflow SS Hemoglobin (Bld) [Mass/Vol] 9.9 G/dL Invalid Interpretation Code 12.0 - 16.0 G/dL AO Workflow SS Lymphocyte, Absolute 2.0 103/mcL Invalid Interpretation Code 0.8 - 3.9 10^3/mcL AO Workflow SS Lymphocytes/100 WBC (Bld) 25.5 % Invalid Interpretation Code 10.0 - 50.0 % AO Workflow SS MCH (RBC) [Entitic mass] 26.8 pg Invalid Interpretation Code 27.0 - 31.2 pg AO Workflow SS MCHC 31.8 G/dL Invalid Interpretation Code 33.0 - 37.0 G/dL AO Workflow SS MCV (RBC) [Entitic vol] 84.3 fL Invalid Interpretation Code 80.0 - 94.0 fL AO Workflow SS Monocyte, Absolute 0.7 103/mcL Invalid Interpretation Code 0.2 - 1.0 10^3/mcL AO Workflow SS Monocytes/100 WBC (Bld) 8.8 % Invalid Interpretation Code 1.7 - 13.0 % AO Workflow SS Neutrophil, Absolute 4.9 103/mcL Invalid Interpretation Code 2.9 - 6.2 10^3/mcL AO Workflow SS Neutrophils/100 WBC (Bld) 61.1 % Invalid Interpretation Code 37.0 - 80.0 % AO Workflow SS Platelet mean volume (Bld) [Entitic vol] 7.5 fL Invalid Interpretation Code 7.4 - 10.4 fL AO Workflow SS Platelets (Bld) [#/Vol] 448 103/mcL Invalid Interpretation Code 130 - 400 10^3/mcL AO Workflow SS RBC (Bld) [#/Vol] 3.68 106/mcL Invalid Interpretation Code 4.20 - 5.40 10^6/mcL AO Workflow SS WBC (Bld) [#/Vol] 8.0 103/mcL Invalid Interpretation Code 4.6 - 10.8 10^3/mcL AO Workflow SS LABORATORYOrdered By: Farideh Levy on 09-19-2022 Cholesterol [Mass/Vol] 163 mg/dL Invalid Interpretation Code 0 - 200 mg/dL AO ADM SS Cholesterol in HDL [Mass/Vol] 93 mg/dL Invalid Interpretation Code 40 - 60 mg/dL AO ADM SS Cholesterol in LDL [Mass/Vol] 50 mg/dL Invalid Interpretation Code 0 - 130 mg/dL AO ADM SS Triglyceride [Mass/Vol] 102 mg/dL Invalid Interpretation Code 0 - 150 mg/dL AO ADM SS LABORATORYOrdered By: Farideh Langley on 03-26-2022 Appearance (U) Slightly Cloudy *ABN* (03/26/22 7:12 AM) Invalid Interpretation Code Clear AO Auto Urine SS Bacteria LM.HPF (Urine sed) [#/Area] 1 /[HPF] Invalid Interpretation Code AO Auto Urine SS Bilirubin Ql (U) Negative (03/26/22 7:12 AM) Invalid Interpretation Code Negative AO Auto Urine SS Color (U) [place] *ABN* (03/26/22 7:12 AM) Invalid Interpretation Code AO Auto Urine SS Glucose Test strip (U) [Mass/Vol] 100 mg/dL Invalid Interpretation Code Negativemg /dL AO Auto Urine SS Hemoglobin Auto test strip (U) [Mass/Vol] Negative (03/26/22 7:12 AM) Invalid Interpretation Code Negative AO Auto Urine SS Ketones Ql (U) Trace mg/dL Invalid Interpretation Code Negativemg /dL AO Auto Urine SS UA Leuk Est Small *ABN* (03/26/22 7:12 AM) Invalid Interpretation Code Negative AO Auto Urine SS UA Nitrite Positive *ABN* (03/26/22 7:12 AM) Invalid Interpretation Code Negative AO Auto Urine SS UA pH 5.0 (03/26/22 7:12 AM) Invalid Interpretation Code 5.0 - 8.0 AO Auto Urine SS UA Protein Trace mg/dL Invalid Interpretation Code Negativemg /dL AO Auto Urine SS UA RBC 0-5 /HPF Invalid Interpretation Code None Seen/HPF AO Auto Urine SS UA Spec Grav <=1.005 *ABN* (03/26/22 7:12 AM) Invalid Interpretation Code 1.015-1.02 5 AO Auto Urine SS UA Specimen Type Clean Catch (03/26/22 7:12 AM) Invalid Interpretation Code AO Auto Urine SS UA Squam Epithelial 0-5 /HPF Invalid Interpretation Code None Seen/HPF AO Auto Urine SS UA Urobilinogen 1.0 E.U./dL Invalid Interpretation Code 0.2-1.0E.U ./dL AO Auto Urine SS WBC LM.HPF (Urine sed) [#/Area] 10-15 /HPF Invalid Interpretation Code None Seen/HPF AO Auto Urine SS No Panel Informationon 03-26 Culture Urine 50,000 - 100,000 cfu /ml Group B Beta Hemolytic Strep (Strep agalactiae) Sensitivity testing is not recommended for one of the following reasons: 1. Established susceptibility patterns are available or 2. Interpretative criteria are not available. [facility] Work Phone: LABORATORYOrdered By: Lauren Fletcher on 02-22-2022 Iron [Mass/Vol] 138 ug/dL Invalid Interpretation Code 50 - 170 mcg/dL AO ADM SS LABORATORYOrdered By: Farideh Levy on 02-15-2022 Albumin BCP dye [Mass/Vol] 3.7 G/dL Invalid Interpretation Code 3.4 - 4.8 G/dL AO ADM SS Albumin/Globulin [Mass ratio] 1.3 {ratio} Invalid Interpretation Code 1.1 - 2.5 ratio AO ADM SS ALP [Catalytic activity/Vol] 80 U/L Invalid Interpretation Code 40 - 135 U/L AO ADM SS ALT With P-5'-P [Catalytic activity/Vol] 19 U/L Invalid Interpretation Code 14 - 59 U/L AO ADM SS AST With P-5'-P [Catalytic activity/Vol] 15 U/L Invalid Interpretation Code 10 - 40 U/L AO ADM SS Bilirubin [Mass/Vol] 0.2 mg/dL Invalid Interpretation Code 0.2 - 1.0 mg/dL AO ADM SS Calcium [Mass/Vol] 8.8 mg/dL Invalid Interpretation Code 8.4 - 10.2 mg/dL AO ADM SS Chloride [Moles/Vol] 99 mmol/L Invalid Interpretation Code 98 - 107 mmol/L AO ADM SS CO2 [Moles/Vol] 28 mmol/L Invalid Interpretation Code 23 - 31 mmol/L AO ADM SS Creatinine [Mass/Vol] 1.22 mg/dL Invalid Interpretation Code 0.55 - 1.02 mg/dL AO ADM SS Electrolyte Balance 11.0 mEq/L Invalid Interpretation Code 4.0 - 15.0 mEq/L AO ADM SS Globulin 2.9 G/dL Invalid Interpretation Code AO ADM SS Glucose [Mass/Vol] 109 mg/dL Invalid Interpretation Code 83 - 110 mg/dL AO ADM SS Potassium [Moles/Vol] 5.2 mmol/L Invalid Interpretation Code 3.5 - 5.1 mmol/L AO ADM SS Protein [Mass/Vol] 6.6 G/dL Invalid Interpretation Code 6.4 - 8.2 G/dL AO ADM SS Sodium [Moles/Vol] 138 mmol/L Invalid Interpretation Code 136 - 145 mmol/L AO ADM SS Urea nitrogen [Mass/Vol] 26 mg/dL Invalid Interpretation Code 7 - 18 mg/dL AO ADM SS Urea nitrogen/Creatinine [Mass ratio] 21 ratio Invalid Interpretation Code 7 - 27 ratio AO ADM SS LABORATORYOrdered By: Lauren Serrano on 02-15-2022 Basophil, Absolute 0.1 103/mcL Invalid Interpretation Code 0.0 - 0.2 10^3/mcL AO Workflow SS Basophils/100 WBC (Bld) 1.0 % Invalid Interpretation Code 0.0 - 2.5 % AO Workflow SS Eosinophil, Absolute 0.3 103/mcL Invalid Interpretation Code 0.0 - 0.4 10^3/mcL AO Workflow SS Eosinophils/100 WBC (Bld) 3.8 % Invalid Interpretation Code 0.0 - 7.0 % AO Workflow SS Erythrocyte distribution width (RBC) [Ratio] 17.0 % Invalid Interpretation Code 11.5 - 14.5 % AO Workflow SS Hematocrit (Bld) [Volume fraction] 33.2 % Invalid Interpretation Code 37.0 - 47.0 % AO Workflow SS Hemoglobin (Bld) [Mass/Vol] 10.7 G/dL Invalid Interpretation Code 12.0 - 16.0 G/dL AO Workflow SS Lymphocyte, Absolute 3.0 103/mcL Invalid Interpretation Code 0.8 - 3.9 10^3/mcL AO Workflow SS Lymphocytes/100 WBC (Bld) 34.2 % Invalid Interpretation Code 10.0 - 50.0 % AO Workflow SS MCH (RBC) [Entitic mass] 26.8 pg Invalid Interpretation Code 27.0 - 31.2 pg AO Workflow SS MCHC 32.3 G/dL Invalid Interpretation Code 33.0 - 37.0 G/dL AO Workflow SS MCV (RBC) [Entitic vol] 83.0 fL Invalid Interpretation Code 80.0 - 94.0 fL AO Workflow SS Monocyte, Absolute 0.7 103/mcL Invalid Interpretation Code 0.2 - 1.0 10^3/mcL AO Workflow SS Monocytes/100 WBC (Bld) 8.4 % Invalid Interpretation Code 1.7 - 13.0 % AO Workflow SS Neutrophil, Absolute 4.5 103/mcL Invalid Interpretation Code 2.9 - 6.2 10^3/mcL AO Workflow SS Neutrophils/100 WBC (Bld) 52.6 % Invalid Interpretation Code 37.0 - 80.0 % AO Workflow SS Platelet mean volume (Bld) [Entitic vol] 7.8 fL Invalid Interpretation Code 7.4 - 10.4 fL AO Workflow SS Platelets (Bld) [#/Vol] 427 103/mcL Invalid Interpretation Code 130 - 400 10^3/mcL AO Workflow SS RBC (Bld) [#/Vol] 4.00 106/mcL Invalid Interpretation Code 4.20 - 5.40 10^6/mcL AO Workflow SS WBC 8.6 103/mcL Invalid Interpretation Code 4.6 - 10.8 10^3/mcL AO Workflow SS LABORATORYOrdered By: SYSTEM SYSTEM on 02-15-2022 GFR 52 ml/min/1.73sqm Invalid Interpretation Code AO Chemistry S GFR Non- 43 ml/min/1.73sqm Invalid Interpretation Code AO Chemistry S Monocyte distribution width Auto (Bld) [Entitic vol] Not Performed 1 *NA* (02/15/22 10:08 AM) Invalid Interpretation Code 0.00 - 20.00 AO Hematology S Comment on above: Result Comment: MDW testing performed only on adult ER patients between the ages of 18-89 years. Office Visit: COPDon 017 Documentation of current medications (procedure) Done Invalid Interpretation Code [facility] Work Phone: Fall risk assessment Yes Invalid Interpretation Code [facility] Work Phone: Tobacco smoking status NHIS Never Invalid Interpretation Code [facility] Work Phone: Tobacco use HS Former smoker Invalid Interpretation Code [facility] Work Phone: Lab Report: Lipid Profileon 05-22-2017 Cholesterol 175 mg/dL Invalid Interpretation Code 200 [facility] Work Phone: [phone] HDL Cholesterol 105 mg/dL Invalid Interpretation Code [facility] Work Phone: [phone] LDL Cholesterol 49 mg/dL Invalid Interpretation Code 0-130 [facility] Phone: [phone] Triglyceride 105 mg/dL Invalid Interpretation Code [facility] Phone: [phone] very low density lipoproteins 21 mg/dL Invalid Interpretation Code 5-40 [facility] Work Phone: [phone] Lab Report: Liver Profileon 05-22-2017 Alanine aminotransferase (ALT) 18 U/L Invalid Interpretation Code 12-78 [facility] Phone: [phone] Albumin 3.2 g/dL Low 3.4-5.0 [facility] Phone: [phone] Alkaline phosphatase (ALP) 86 U/L Invalid Interpretation Code 45-117 [facility] Phone: [phone] Aspartate aminotransferase (AST) 13 U/L Low 15-37 [facility] Phone: [phone] Bilirubin (direct) 0.09 mg/dL Invalid Interpretation Code 0.00-0.30 [facility] Phone: [phone] Bilirubin (total) 0.20 mg/dL Invalid Interpretation Code 0.20-1.00 [facility] Phone: [phone] Globulin 3.8 g/dL Invalid Interpretation Code 2.2-4.2 [facility] Phone: [phone] Protein 7.0 g/dL Invalid Interpretation Code 6.4-8.2 [facility] Phone: [phone] Office Visiton 04-21-2017 Documentation of current medications (procedure) Done Invalid Interpretation Code [facility] Phone: [phone] Fall risk assessment Yes Invalid Interpretation Code [facility] Phone: [phone] 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 Left ventricular Ejection fraction 65-70 Invalid Interpretation Code [facility] Phone: [phone] Office Visit: COPDon 05-08-2 017 Tobacco smoking status NHIS Never Invalid Interpretation Code [facility] Work Phone: Tobacco use [facility] Former smoker Invalid Interpretation Code [facility] Work Phone: Office Visiton 01-22-2016 Smoking cessation education (procedure) yes Invalid Interpretation Code [facility] Work Phone: Replaced Document: Scott Charlton CG Observationson 12-26-2015 EKG QRS axis -9 deg Invalid Interpretation Code [facility] Work Phone: [phone] Interpretation Sinus Tachycardia -O ld anteroseptal infarct. Low voltage with rightward P-axis and rotation -possible pulmonary disease. ABNORMAL Invalid Interpretation Code [facility] Work Phone: [phone] P Thornton 71 deg Invalid Interpretation Code [facility] Work Phone: [phone] FL Interval 160 ms Invalid Interpretation Code [facility] Work Phone: Pulse (Heart Rate) 103 /min Invalid Interpretation Code [facility] Work Phone: [phone] QRS Duration 86 ms Invalid Interpretation Code [facility] Work Phone: [phone] QT Interval new path ms Invalid Interpretation Code [facility] Work Phone: [phone] QTc Neal 401 ms Invalid Interpretation Code [facility] Work Phone: [phone] T Thornton 52 deg Invalid Interpretation Code [facility] Work Phone: [phone] Vital Signs Date Time Vital Sign Value Performing Clinician Facility 02-07-2025 11:07-0400 Diastolic blood pressure 66 mm[Hg] Rose Vickers MD Work Phone: [facility] 02-07-2025 11:07-0400 Heart rate 123 /min Rose Vickers MD Work Phone: [facility] 02-07-2025 11:07-0400 SaO2% (BldA) [Mass fraction] 95 % Rose Vickers MD Work Phone: [facility] 02-07-2025 11:07-0400 Systolic blood pressure 153 mm[Hg] Rose Vickers MD Work Phone: [facility] 02-07-2025 09:47-0400 Respiratory rate 18 /min Rose Vickers MD Work Phone: [facility] 02-07-2025 07:53-0400 Body temperature 98.4 [degF] Rose Vickers MD Work Phone: [facility] 02-03-2025 11:40-0400 Body mass index (BMI) [Ratio] 24.61 kg/m2 Rose Vickers MD Work Phone: [facility] 02-03-2025 11:40-0400 Body weight 57.15 kg Rose Vickers MD Work Phone: [facility] 01-31-2025 16:25-0400 Body height 152.4 cm Rose Vickers MD Work Phone: [facility] 01-24-2025 19:49-0400 Body height 152.4 cm Mejgon Bren DO Work Phone: [facility] 01-24-2025 19:49-0400 Body mass index (BMI) [Ratio] 24.41 kg/m2 Mejgon Bren DO Work Phone: [facility] 01-24-2025 19:49-0400 Body temperature 97.39 [degF] Mejgon Bren DO Work Phone: [facility] 01-24-2025 19:49-0400 Body weight 56.7 kg Mejgon Bren DO Work Phone: [facility] 01-24-2025 19:49-0400 Diastolic blood pressure 57 mm[Hg] Mejgon Bren DO Work Phone: [facility] 01-24-2025 19:49-0400 Heart rate 77 /min Mejgon Bren DO Work Phone: [facility] 01-24-2025 19:49-0400 Respiratory rate 18 /min Mejgon Bren DO Work Phone: [facility] 01-24-2025 19:49-0400 Systolic blood pressure 159 mm[Hg] Mejgon Bren DO Work Phone: [facility] 01-23-2025 23:23-0400 Body height 152.4 cm SRIDHAR Bishop MD Work Phone: [facility] 01-23-2025 23:23-0400 Body mass index (BMI) [Ratio] 24.41 kg/m2 SRIDHAR Bishop MD Work Phone: [facility] 01-23-2025 23:23-0400 Body weight 56.7 kg SRIDHAR Bishop MD Work Phone: [facility] 01-23-2025 23:22-0400 Diastolic blood pressure 54 mm[Hg] SRIDHAR Bishop MD Work Phone: [facility] 01-23-2025 23:22-0400 Systolic blood pressure 168 mm[Hg] SRIDHAR Bishop MD Work Phone: [facility] 01-23-2025 23:21-0400 Body temperature 97.81 [degF] SRIDHAR Bishop MD Work Phone: [facility] 01-23-2025 23:21-0400 Heart rate 73 /min SRIDHAR Bishop MD Work Phone: [facility] 01-23-2025 23:21-0400 SaO2% (BldA) [Mass fraction] 95 % SRIDHAR Bishop MD Work Phone: [facility] 12-05-2023 16:30-0400 Body temperature 97.52 [degF] EMMY GARVIN CHIEF MEDICAL TECHNOLOGIST-FINANCE PROFESSOR [facility] 12-05-2023 16:30-0400 Diastolic Blood Pressure Non-Invasive 68 mm[Hg] EMMY GARVIN CHIEF MEDICAL TECHNOLOGIST-FINANCE PROFESSOR [facility] 12-05-2023 16:30-0400 Heart rate 85 /min EMMY GARVIN CHIEF MEDICAL TECHNOLOGIST-FINANCE PROFESSOR [facility] 12-05-2023 16:30-0400 Reason For Taking VItal Signs EMMY GARVIN CHIEF MEDICAL TECHNOLOGIST-FINANCE PROFESSOR [facility] 12-05-2023 16:30-0400 Respiratory rate 22 /min EMMY KAPPER CHIEF MEDICAL TECHNOLOGIST-FINANCE PROFESSOR [facility] 12-05-2023 16:30-0400 Systolic Blood Pressure Non-Invasive 158 mm[Hg] EMMY KAPPER CHIEF MEDICAL TECHNOLOGIST-FINANCE PROFESSOR [facility] 12-05-2023 11:20-0400 Body temperature 97.88 [degF] EMMY KAPPER CHIEF MEDICAL TECHNOLOGIST-FINANCE PROFESSOR [facility] 12-05-2023 11:20-0400 Diastolic Blood Pressure Non-Invasive 70 mm[Hg] EMMY KAPPER CHIEF MEDICAL TECHNOLOGIST-FINANCE PROFESSOR [facility] 12-05-2023 11:20-0400 Heart rate 107 /min EMMY KAPPER CHIEF MEDICAL TECHNOLOGIST-FINANCE PROFESSOR [facility] 12-05-2023 11:20-0400 Reason For Taking VItal Signs EMMY KAPPER CHIEF MEDICAL TECHNOLOGIST-FINANCE PROFESSOR [facility] 12-05-2023 11:20-0400 Respiratory rate 22 /min EMMY KAPPER CHIEF MEDICAL TECHNOLOGIST-FINANCE PROFESSOR [facility] 12-05-2023 11:20-0400 Systolic Blood Pressure Non-Invasive 138 mm[Hg] EMMY KAPPER CHIEF MEDICAL TECHNOLOGIST-FINANCE PROFESSOR [facility] 12-05-2023 06:32-0400 Heart rate 104 /min EMMY KAPPER CHIEF MEDICAL TECHNOLOGIST-FINANCE PROFESSOR [facility] 12-05-2023 06:32-0400 Respiratory rate 22 /min EMMY KAPPER CHIEF MEDICAL TECHNOLOGIST-FINANCE PROFESSOR [facility] 12-05-2023 06:17-0400 Body temperature 98.06 [degF] EMMY KAPPER CHIEF MEDICAL TECHNOLOGIST-FINANCE PROFESSOR [facility] 12-05-2023 06:17-0400 Diastolic Blood Pressure Non-Invasive 67 mm[Hg] EMMY ROBLEDOER CHIEF MEDICAL TECHNOLOGIST-FINANCE PROFESSOR [facility] 12-05-2023 06:17-0400 Heart rate 135 /min MEMY ROBLEDOER CHIEF MEDICAL TECHNOLOGIST-FINANCE PROFESSOR [facility] 12-05-2023 06:17-0400 Reason For Taking VItal Signs EMMY ROBLEDOER CHIEF MEDICAL TECHNOLOGIST-FINANCE PROFESSOR [facility] 12-05-2023 06:17-0400 Systolic Blood Pressure Non-Invasive 145 mm[Hg] EMMY ROBLEDOER CHIEF MEDICAL TECHNOLOGIST-FINANCE PROFESSOR [facility] 12-04-2023 18:24-0400 Heart rate 110 /min EMMY ROBLEDOER CHIEF MEDICAL TECHNOLOGIST-FINANCE PROFESSOR [facility] 12-04-2023 06:14-0400 Heart rate 105 /min EMMY KAPPER CHIEF MEDICAL TECHNOLOGIST-FINANCE PROFESSOR [facility] 12-03-2023 07:47-0400 Heart rate 98 /min EMMY KAPPER CHIEF MEDICAL TECHNOLOGIST-FINANCE PROFESSOR [facility] 12-02-2023 13:51-0400 Heart rate 116 /min EMMY KAPPER CHIEF MEDICAL TECHNOLOGIST-FINANCE PROFESSOR [facility] 12-02-2023 03:28-0400 Blood Pressure Method EMMY KAPPER CHIEF MEDICAL TECHNOLOGIST-FINANCE PROFESSOR [facility] 12-01-2023 20:54-0400 Body height 152.4 cm EMMY KAPPER CHIEF MEDICAL TECHNOLOGIST-FINANCE PROFESSOR [facility] 12-01-2023 20:54-0400 Body weight 56.3 kg EMMY KAPPER CHIEF MEDICAL TECHNOLOGIST-FINANCE PROFESSOR [facility] 12-01-2023 20:54-0400 Body weight 24.24 kg/m2 EMMY GARVIN CHIEF MEDICAL TECHNOLOGIST-FINANCE PROFESSOR [facility] 12-01-2023 12:54-0400 Body height 152.4 cm EMMY GARVIN CHIEF MEDICAL TECHNOLOGIST-FINANCE PROFESSOR [facility] 12-01-2023 12:54-0400 Body weight 57 kg EMMY GARVIN CHIEF MEDICAL TECHNOLOGIST-FINANCE PROFESSOR [facility] 10-30-2023 07:59-0400 Body temperature 97.8 [degF] [employer]-C Jamie Baltes SHALE MINER Work Phone: [facility] 10-30-2023 07:59-0400 Diastolic blood pressure 78 mm[Hg] SHALE MINER-C Jamie Baltes [employer] Work Phone: [facility] 10-30-2023 07:59-0400 Heart rate 76 /min [employer] Jamie Baltes [employer] Work Phone: [facility] 10-30-2023 07:59-0400 Respiratory rate 14 /min [employer] Jamie Baltes [employer] Work Phone: [facility] 10-30-2023 07:59-0400 SaO2% (BldA) [Mass fraction] 97 % [employer] Jamie Baltes [employer] Work Phone: [facility] 10-30-2023 07:59-0400 Systolic blood pressure 134 mm[Hg] [employer] MINER-C Jamie Baltes [employer] Work Phone: [facility] 10-30-2023 05:20-0400 Body height 152.4 cm [employer]ER-C Jamie Baltes [employer] Work Phone: [facility] 10-30-2023 05:20-0400 Body mass index (BMI) [Ratio] 25.9 kg/m2 [employer]C Jamie Baltes [employer] Work Phone: [facility] 10-30-2023 05:20-0400 Body weight 60.3 kg [employer]C Jamie Baltes [employer] Work Phone: [facility] 10-29-2023 12:23-0400 Body temperature 97.4 [degF] [employer] MINER-C Jamie Baltes [employer] Work Phone: [facility] 10-29-2023 12:23-0400 Diastolic blood pressure 61 mm[Hg] SHALE MINER-C Jamie Baltes [employer] Work Phone: [facility] 10-29-2023 12:23-0400 Heart rate 104 /min [employer]C Jamie Baltes [employer] Work Phone: [facility] 10-29-2023 12:23-0400 Respiratory rate 16 /min [employer] Jamie Baltes [employer] Work Phone: [facility] 10-29-2023 12:23-0400 SaO2% (BldA) [Mass fraction] 91 % [employer]C Jamie Baltes [employer] Work Phone: [facility] 10-29-2023 12:23-0400 Systolic blood pressure 137 mm[Hg] [employer] MINER-C Jamie Baltes [employer] Work Phone: [facility] 10-29-2023 10:27-0400 Inhaled oxygen flow rate 4 L/min [employer] Jamie Baltes [employer] Work Phone: [facility] 10-29-2023 06:41-0400 Body height 152.4 cm [employer] Jamie Baltes [employer] Work Phone: [facility] 10-29-2023 06:41-0400 Body mass index (BMI) [Ratio] 25 kg/m2 [employer] Jamie Baltes [employer] Work Phone: [facility] 10-29-2023 06:41-0400 Body weight 58 kg SHALE MINER-C Jamie Baltes SHALE MINER Work Phone: [facility] 05-18-2023 21:06-0400 Diastolic blood pressure 64 mm[Hg] Filipe Jaimes DO Work Phone: [facility] 05-18-2023 21:06-0400 Heart rate 86 /min Filipe Jaimes DO Work Phone: [employer] 05-18-2023 21:06-0400 Respiratory rate 18 /min Filipe Jaimes DO Work Phone: [employer] 05-18-2023 21:06-0400 SaO2% (BldA) [Mass fraction] 99 % Filipe Jaimes DO Work Phone: [employer] 05-18-2023 21:06-0400 Systolic blood pressure 98 mm[Hg] Filipe Jaimes DO Work Phone: [employer] 05-18-2023 16:46-0400 Body height 152.4 cm Filipe Jaimes DO Work Phone: [employer] 05-18-2023 16:46-0400 Body mass index (BMI) [Ratio] 22.26 kg/m2 Filipe Jaimes DO Work Phone: [employer] 05-18-2023 16:46-0400 Body weight 51.71 kg Filipe Jaimes DO Work Phone: [employer] 05-18-2023 15:59-0400 Body temperature 97.5 [degF] Filipe Jaimes DO Work Phone: [employer] 05-14-2023 08:27-0400 Body temperature 97.7 [degF] Aba Ritter MD Work Phone: [employer] 05-14-2023 08:27-0400 Diastolic blood pressure 90 mm[Hg] Aba Ritter MD Work Phone: [employer] 05-14-2023 08:27-0400 Heart rate 85 /min Aba Ritter MD Work Phone: [employer] 05-14-2023 08:27-0400 Respiratory rate 17 /min Aba Ritter MD Work Phone: [employer] 05-14-2023 08:27-0400 SaO2% (BldA) [Mass fraction] 97 % Aba Ritter MD Work Phone: [facility] 05-14-2023 08:27-0400 Systolic blood pressure 175 mm[Hg] Aba Ritter MD Work Phone: [facility] 05-12-2023 16:15-0400 Body height 152.4 cm Aba Ritter MD Work Phone: [facility] 05-12-2023 16:15-0400 Body mass index (BMI) [Ratio] 22.26 kg/m2 Aba Ritter MD Work Phone: [facility] 05-12-2023 16:15-0400 Body weight 51.71 kg Aba Ritter MD Work Phone: [facility] 05-05-2023 11:45-0400 Body temperature 97.7 [degF] SHALE MINER-C Jamie Baltes SHALE MINER Work Phone: [facility] 05-05-2023 11:45-0400 Diastolic blood pressure 73 mm[Hg] SHALE MINER-C Jamie Baltes SHALE MINER Work Phone: [facility] 05-05-2023 11:45-0400 Heart rate 88 /min SHALE MINER-C Jamie Baltes SHALE MINER Work Phone: [facility] 05-05-2023 11:45-0400 Respiratory rate 18 /min SHALE MINER-C Jamie Baltes SHALE MINER Work Phone: [facility] 05-05-2023 11:45-0400 SaO2% (BldA) [Mass fraction] 97 % SHALE MINER-C Jamie Baltes SHALE MINER Work Phone: [facility] 05-05-2023 11:45-0400 Systolic blood pressure 140 mm[Hg] SHALE MINER-C Jamie Baltes SHALE MINER Work Phone: [facility] 05-05-2023 10:02-0400 Body height 152.4 cm SHALE MINER-C Jamie Baltes SHALE MINER Work Phone: [facility] 05-05-2023 10:02-0400 Body mass index (BMI) [Ratio] 22.2 kg/m2 SHALE MINER-C Jamie Schroeder SHALE MINER Work Phone: [facility] 05-05-2023 10:02-0400 Body weight 51.7 kg SHALE MINER-C Jamei Schroeder SHALE MINER Work Phone: [facility] 05-04-2021 15:20-0400 Body height 152.4 cm Bill Hurley MD Work Phone: [facility] Work Phone: 05-04-2021 15:20-0400 Body mass index (BMI) [Ratio] 24.41 kg/m2 Bill Hurley MD Work Phone: [facility] Work Phone: 05-04-2021 15:20-0400 Body temperature 98.4 [degF] Bill Hurley MD Work Phone: [facility] Work Phone: 05-04-2021 15:20-0400 Body weight 56.7 kg Bill Hurley MD Work Phone: [facility] Work Phone: 05-04-2021 15:20-0400 Diastolic blood pressure 59 mm[Hg] Bill Hurley MD Work Phone: [facility] Work Phone: 05-04-2021 15:20-0400 Heart rate 96 /min Bill Hurley MD Work Phone: [facility] Work Phone: 05-04-2021 15:20-0400 Respiratory rate 14 /min Bill Hurley MD Work Phone: [facility] Work Phone: 05-04-2021 15:20-0400 SaO2% (BldA) [Mass fraction] 97 % Bill Hurley MD Work Phone: [facility] Work Phone: 05-04-2021 15:20-0400 Systolic blood pressure 143 mm[Hg] Bill Hurley MD Work Phone: [facility] Work Phone: 06-02-2017 07:08-0500 BMI (Body Mass Index) 26.17 kg/m2 Cindy Munoz CNP [facility] Work Phone: 06-02-2017 07:08-0500 Body Temperature 97.8 [degF] Cindy Munoz CNP [facility] Work Phone: 06-02-2017 07:08-0500 BP Diastolic 69 mm[Hg] Cindy Munoz CNP [facility] Work Phone: 06-02-2017 07:08-0500 BP Systolic 132 mm[Hg] Cindy Munoz CNP [facility] Work Phone: 06-02-2017 07:08-0500 Height 152.4 cm Cindy Munoz CNP [facility] Work Phone: 06-02-2017 07:08-0500 Pulse (Heart Rate) 108 /min Cindy Munoz CNP [facility] Work Phone: 06-02-2017 07:08-0500 Respiratory Rate 18 /min Cindy Munoz CNP [facility] Work Phone: 06-02-2017 07:08-0500 Weight 60.78 kg Cindy Munoz CNP [facility] Work Phone: 04-21-2017 12:52-0400 BMI (Body Mass Index) 24.02 kg/m2 [facility] Work Phone: 04-21-2017 12:52-0400 BP Diastolic 72 mm[Hg] Harumi DeFinis [facility] Work Phone: 04-21-2017 12:52-0400 BP Systolic 140 mm[Hg] Harumi DeFinis [facility] Work Phone: 04-21-2017 12:52-0400 Height 152.4 cm [facility] De[facility] Work Phone: 04-21-2017 12:52-0400 Pulse (Heart Rate) 110 /min Jaqui Dukes [facility] Work Phone: 04-21-2017 12:52-0400 Respiratory Rate 18 /min Jaqui Dukes [facility] Work Phone: 04-21-2017 12:52-0400 Weight 55.79 kg Jaqui Moseleyis [facility] Work Phone: 12-02-2016 10:01-0400 Body Temperature 97 [degF] [employer] DeFinis [facility] Work Phone: 07-24-2016 10:52-0500 Body Temperature 97.52 [degF] Khadarumi DeFinis [facility] Work Phone: 07-24-2016 10:52-0500 BSA (Body Surface Area) 1.47 m2 Jaqui PATHEOSis [facility] Work Phone: 07-24-2016 10:52-0500 Height 152.4 cm Jaqui PATHEOSis [facility] Work Phone: 07-24-2016 10:52-0500 Weight 51.82 kg Jaqui PATHEOSanthony [facility] Work Phone: 01-22-2016 13:44-0400 Pulse Oximetry 96 % Jaqui Dukes [facility] Work Phone: Encounters Encounter Date Encounter Type Care Provider Facility Start: 01-31-2025 ambulatory [facility] Start: 01-31-2025 End: 02-07-2025 Evaluation and management of inpatient Rose Vickers MD Work Phone: [facility] AAU 2 Comment on above: Laceration of right knee, initial encounter (Primary Dx); Open knee wound, right, initial encounter Start: 01-24-2025 End: 01-24-2025 Emergency department patient visit Dara Correia DO Work Phone: [facility] Comment on above: Knee laceration, rig ht, subsequent encounter (Primary Dx) Start: 01-23-2025 End: 01-24-2025 Emergency department patient visit J Lorelei Bishop MD Work Phone: [facility] Comment on above: Laceration of right knee, initial encounter (Primary Dx) Start: 10-12-2024 End: 10-12-2024 ambulatory JAMIE SCHROEDER CHIEF MEDICAL TECHNOLOGIST-FINANCE PROFESSOR Facility:[facility] Start: 09-21-2024 End: 09-21-2024 ambulatory JAMIE SCHROEDER CHIEF MEDICAL TECHNOLOGIST-FINANCE PROFESSOR Facility:[facility] Start: 09-21-2024 End: 09-21-2024 Patient encounter procedure JAMIE SCHROEDER CHIEF MEDICAL TECHNOLOGIST-FINANCE PROFESSOR [facility] Start: 09-20-2024 ambulatory Jamie Schroeder SHALE MINER Facility :[facility] Start: 09-15-2024 ambulatory Nae Brand Facili ty:[facility] Start: 09-10-2024 End: 09-10-2024 ambulatory May Choi [facility] Start: 09-07-2024 ambulatory Nae Brand Facili ty:[facility] Start: 09-03-2024 ambulatory Nae Brand Facili ty:[facility] Start: 08-26-2024 ambulatory Kd Mcfarlane Facili [facility] Start: 08-26-2024 End: 09-03-2024 Evaluation and management of inpatient Alonso Williamson Facility:[facility] Start: 08-23-2024 End: 08-23-2024 ambulatory Cindy Munoz SHALE MINER [facility] Start: 08-23-2024 End: 08-23-2024 ambulatory Jamie Schroeder SHALE MINER Facility:[facility] Start: 08-19-2024 End: 08-19-2024 ambulatory Jamie Schroeder SHALE MINER Facility:[facility] Start: 08-13-2024 End: 08-13-2024 ambulatory JAMIE SCHROEDER CHIEF MEDICAL TECHNOLOGIST-FINANCE PROFESSOR Facility:[facility] Start: 08-13-2024 End: 08-13-2024 Patient encounter procedure JAMIE SCHROEDER CHIEF MEDICAL TECHNOLOGIST-FINANCE PROFESSOR [facility] Start: 08-13-2024 End: 08-13-2024 ambulatory Jamie Schroeder SHALE MINER Facility:[facility] Start: 08-04-2024 End: 08-05-2024 ambulatory Loida Luu Facility:[facility] Start: 07-30-2024 End: 07-30-2024 ambulatory Jamie Baltes SHALE MINER Facility:[facility] Start: 07-22-2024 End: 07-22-2024 Emergency department patient visit [facility] Start: 07-14-2024 End: 07-14-2024 ambulatory Jamie Baltes SHALE MINER Facility:[facility] Start: 07-14-2024 End: 07-14-2024 ambulatory Jamie Baltes SHALE MINER Facility:[facility] Start: 05-29-2024 End: 05-29-2024 Emergency department patient visit Jamie Baltes SHALE MINER Facility:[facility] Start: 05-28-2024 End: 05-28-2024 ambulatory PEYMAN MENA Facility:[id number] Start: 05-19-2024 End: 05-19-2024 ambulatory Jamie Baltes SHALE MINER Facility:[facility] Start: 05-19-2024 End: 05-19-2024 ambulatory Jamie Baltes SHALE MINER Facility:[facility] Start: 04-28-2024 ambulatory Ryan Hou Facility :[facility] Start: 04-27-2024 ambulatory Kd Nahuncatalino [facility] Start: 04-27-2024 End: 04-29-2024 Evaluation and management of inpatient Kd Nahuntoe Facility:[facility] Start: 04-23-2024 End: 04-23-2024 ambulatory JAMIE SCHROEDER CHIEF MEDICAL TECHNOLOGIST-FINANCE PROFESSOR Facility:[facility] Start: 04-23-2024 End: 04-23-2024 Patient encounter procedure PEYMAN MENA MD [facility] Start: 04-21-2024 End: 04-21-2024 ambulatory JAMIE SCHROEDER CHIEF MEDICAL TECHNOLOGIST-FINANCE PROFESSOR Facility:[facility] Start: 04-21-2024 End: 04-21-2024 Patient encounter procedure PEYMAN MENA MD [facility] Start: 03-18-2024 End: 03-18-2024 ambulatory Jamie Templetontes SHALE MINER Facility:[facility] Start: 02-24-2024 End: 02-24-2024 ambulatory Diana Mollison Facility:[facility] Start: 02-17-2024 End: 02-17-2024 ambulatory [facility] Facility:[facility] Start: 02-17-2024 End: 02-17-2024 ambulatory PEYMAN MENA MD Facility:[facility] Start: 02-17-2024 End: 02-17-2024 Patient encounter procedure PEYMAN MENA MD [facility] Start: 01-28-2024 End: 01-28-2024 ambulatory JAMIE SCHROEDER CHIEF MEDICAL TECHNOLOGIST-FINANCE PROFESSOR Facility:[facility] Start: 01-28-2024 End: 01-28-2024 Patient encounter procedure JAMIE SCHROEDER CHIEF MEDICAL TECHNOLOGIST-FINANCE PROFESSOR [facility] Start: 12-29-2023 End: 12-29-2023 ambulatory ERIN MONTIEL MD Facility:[facility] Start: 12-29-2023 End: 12-29-2023 Patient encounter procedure ERIN MONTIEL MD [facility] Start: 12-19-2023 End: 12-19-2023 ambulatory Diana Mollison Facility:[facility] Start: 12-10-2023 End: 12-10-2023 ambulatory JAMIE TEMPLETONCRIS CHIEF MEDICAL TECHNOLOGIST-FINANCE PROFESSOR Facility:[facility] Start: 12-10-2023 End: 12-10-2023 Patient encounter procedure JAMIE SCHROEDER CHIEF MEDICAL TECHNOLOGIST-FINANCE PROFESSOR [facility] Start: 12-02-2023 ambulatory Ryan Hou Facility :[facility] Start: 12-01-2023 End: 12-05-2023 Evaluation and management of inpatient EMMY Shawna GARVIN CHIEF MEDICAL TECHNOLOGIST-FINANCE PROFESSOR [facility] Start: 11-14-2023 End: 11-14-2023 ambulatory Diana Mollison Facility:[facility] Start: 11-06-2023 [facility] other [facility] Start: 10-31-2023 End: 10-31-2023 ambulatory Diana Mollison Facility:[facility] Start: 10-30-2023 End: 10-30-2023 Emergency department patient visit SHALE MINER-C Jamie Schroeder SHALE MINER Work Phone: [facility] Work Phone: Start: 10-29-2023 ambulatory Diana Mollison Facility :[facility] Start: 10-29-2023 Non-patient / Non-visit SHALE MINER-C R nikki Templetontes SHALE MINER Work Phone: [facility] Start: 10-29-2023 End: 10-29-2023 Admission to same day surgery center SHALE MINER-C Jamie Schroeder SHALE MINER Work Phone: [facility] Start: 10-29-2023 End: 10-29-2023 ambulatory SHALE MINER-C Jamie Schroeder SHALE MINER Work Phone: [facility] Work Phone: Start: 09-22-2023 End: 09-22-2023 Patient encounter procedure SHALE MINER-C Jamie Schroeder SHALE MINER Work Phone: [facility] Work Phone: Start: 09-22-2023 End: 09-22-2023 ambulatory [facility] Facility[facility] Start: 09-22-2023 End: 09-22-2023 Non-patient / Non-visit SHALE MINER-C Jamie Templetontes SHALE MINER Work Phone: [facility] Work Phone: Start: 09-03-2023 Non-patient / Non-visit SHALE MINER-C R nikki Templetontes SHALE MINER Work Phone: [facility] Start: 09-03-2023 End: 09-03-2023 ambulatory JAMIE SCHROEDER CHIEF MEDICAL TECHNOLOGIST-FINANCE PROFESSOR Facility:[facility] Start: 08-14-2023 End: 08-14-2023 Patient encounter procedure SHALE MINER-C Jamie Templetontes SHALE MINER Work Phone: [facility] Work Phone: Start: 07-15-2023 End: 07-19-2023 ambulatory JAMIE SCHROEDER CHIEF MEDICAL TECHNOLOGIST-FINANCE PROFESSOR Facility:[facility] Start: 07-02-2023 End: 07-02-2023 Patient encounter procedure SHALE MINER-C Jamie Schroeder SHALE MINER Work Phone: [facility] Work Phone: Start: 06-13-2023 End: 06-13-2023 ambulatory SHALE MINER-C Jamie Kerwin SHALE MINER Work Phone: [facility] Work Phone: Start: 06-13-2023 End: 06-13-2023 Patient encounter procedure SHALE MINER-C Jamie Kerwin SHALE MINER Work Phone: [facility] Work Phone: Start: 06-12-2023 End: 06-12-2023 Patient encounter procedure SHALE MINER-C Jamie Kerwin SHALE MINER Work Phone: [facility] Work Phone: Start: 06-04-2023 End: 06-04-2023 Patient encounter procedure SHALE MINER-C Jamie Kerwin SHALE MINER Work Phone: [facility] Work Phone: Start: 05-30-2023 End: 05-30-2023 ambulatory JAMIE KERWIN CHIEF MEDICAL TECHNOLOGIST-FINANCE PROFESSOR Facility:[facility] Start: 05-30-2023 End: 05-30-2023 Patient encounter procedure JAMIE SCHROEDER CHIEF MEDICAL TECHNOLOGIST-FINANCE PROFESSOR [facility] Start: 05-18-2023 End: 05-18-2023 Subsequent hospital visit by physician [facility] Non-Invasive Cardiology Comment on above: Arrived Start: 05-18-2023 End: 05-18-2023 Emergency department patient visit Filipe Jaimes DO Work Phone: [facility] ED Comment on above: Generalized weakness (Primary Dx); Lightheadedness Start: 05-15-2023 Telephone encounter Maureen Dejesus Clinical Communication Comment on above: Hospital Follow-up Start: 05-11-2023 End: 05-11-2023 Subsequent hospital visit by physician [facility] Radiology Comment on above: Arrived Start: 05-11-2023 End: 05-14-2023 Evaluation and management of inpatient Aba Ritter MD Work Phone: [facility] Cardiac Progressive Care Unit PCU 2E Comment on above: Septic shock (CMS/HC C) (HCC) (Primary Dx); Sepsis, due to unspecified organism, unspecified whether acute organ dysfunction present (HCC); Urinary tract infection without hematuria, site unspecified Start: 05-06-2023 End: 05-06-2023 ambulatory JAMIE SCHROEDER APRN-FINANCE PROFESSOR Facility:[facility] Start: 05-05-2023 Non-patient / Non-visit SHALE MINER-Fady Schroeder SHALE MINER Work Phone: [facility] Start: 05-05-2023 End: 05-05-2023 Admission to same day surgery center SHALE MINER-Fady Schroeder SHALE MINER Work Phone: [facility] Work Phone: Start: 04-09-2023 End: 04-09-2023 ambulatory JAMIE SCHROEDER CHIEF MEDICAL TECHNOLOGIST-FINANCE PROFESSOR Facility:[facility] Start: 04-09-2023 End: 04-09-2023 Patient encounter procedure ERIN MONTIEL MD [facility] Start: 02-07-2023 End: 02-07-2023 Patient encounter procedure PEYMAN MENA MD [facility] Start: 01-09-2023 End: 01-09-2023 Patient encounter procedure JAMIE SCHROEDER CHIEF MEDICAL TECHNOLOGIST-FINANCE PROFESSOR [facility] Start: 11-30-2022 End: 11-30-2022 ambulatory [facility] Work Phone: Start: 11-30-2022 End: 11-30-2022 Patient encounter procedure [facility] Start: 2022 End: 2022 Patient encounter procedure JAMIE SCHROEDER CHIEF MEDICAL TECHNOLOGIST-FINANCE PROFESSOR [facility] Start: 11-11-2022 End: 11-11-2022 Patient encounter procedure YECENIA MORGAN MD [facility] Start: 09-25-2022 End: 09-25-2022 Patient encounter procedure JAMIE SCHROEDER CHIEF MEDICAL TECHNOLOGIST-FINANCE PROFESSOR [facility] Start: 09-19-2022 End: 09-19-2022 Patient encounter procedure JAMIE SCHROEDER CHIEF MEDICAL TECHNOLOGIST-FINANCE PROFESSOR [facility] Start: 03-26-2022 End: 03-30-2022 Outreach Lab RHYS CHLOÉ [facility] Start: 02-22-2022 End: 02-22-2022 Patient encounter procedure JAMIE SCHROEDER CHIEF MEDICAL TECHNOLOGIST-FINANCE PROFESSOR [facility] Start: 02-15-2022 End: 02-15-2022 Patient encounter procedure JAMIE SCHROEDER CHIEF MEDICAL TECHNOLOGIST-FINANCE PROFESSOR [facility] Start: 11-27-2021 End: 11-27-2021 Patient encounter procedure [facility] Start: 05-04-2021 End: 05-04-2021 Emergency department patient visit Bill Hurley MD Work Phone: [facility] Comment on above: Otalgia of right ear (Primary Dx) Start: 06-28-2017 Patient encounter status [facility] Procedures Date Procedure Procedure Detail Performing Clinician Start: 02-07-2025 Glucose quantitative blood xcpt reagent strip Baldomero Gates MD Work Phone: Start: 02-07-2025 Glucose quantitative blood xcpt reagent strip Baldomero Gates MD Work Phone: Start: 02-07-2025 Glucose quantitative blood xcpt reagent strip Baldomero Gates MD Work Phone: Start: 02-06-2025 Glucose quantitative blood xcpt reagent strip Baldomero Gates MD Work Phone: Start: 02-06-2025 Glucose quantitative blood xcpt reagent strip Baldomero Gates MD Work Phone: Start: 02-06-2025 Glucose quantitative blood xcpt reagent strip Baldomero Gates MD Work Phone: Start: 02-06-2025 Glucose quantitative blood xcpt reagent strip Baldomero Gates MD Work Phone: Start: 02-06-2025 Basic metabolic pane l calcium total Baldomero Gates MD Work Phone: Start: 02-05-2025 Glucose quantitative blood xcpt reagent strip Baldomero Gates MD Work Phone: Start: 02-05-2025 Glucose quantitative blood xcpt reagent strip Baldomero Gates MD Work Phone: Start: 02-05-2025 Glucose quantitative blood xcpt reagent strip Baldomero Gates MD Work Phone: Start: 02-05-2025 Glucose quantitative blood xcpt reagent strip Baldomero Gates MD Work Phone: Start: 02-05-2025 Basic metabolic pane l calcium total Baldomero Gates MD Work Phone: Start: 02-04-2025 Glucose quantitative blood xcpt reagent strip Baldomero Gates MD Work Phone: Start: 02-04-2025 Glucose quantitative blood xcpt reagent strip Baldomero Gates MD Work Phone: Start: 02-04-2025 Glucose quantitative blood xcpt reagent strip Baldomero Gates MD Work Phone: Start: 02-04-2025 Glucose quantitative blood xcpt reagent strip Baldomero Gates MD Work Phone: Start: 02-04-2025 Basic metabolic pane l calcium total Baldomero Gates MD Work Phone: Start: 02-04-2025 Drug screen quantita tive vancomycin Baldomero Gates MD Work Phone: Start: 02-03-2025 Glucose quantitative blood xcpt reagent strip Baldomero Gates MD Work Phone: Start: 02-03-2025 Glucose quantitative blood xcpt reagent strip Baldomero Gates MD Work Phone: Start: 02-03-2025 Culture bacterial an y source anaerobic iso&id Baldomero Gates MD Work Phone: Start: 02-03-2025 Glucose quantitative blood xcpt reagent strip Baldomero Gates MD Work Phone: Start: 02-03-2025 Glucose quantitative blood xcpt reagent strip Baldomero Gates MD Work Phone: Start: 02-03-2025 Renal function panel Loraine Gates MD Work Phone: Start: 02-02-2025 Glucose quantitative blood xcpt reagent strip Baldomero Gates MD Work Phone: Start: 02-02-2025 Glucose quantitative blood xcpt reagent strip Baldomero Gates MD Work Phone: Start: 02-02-2025 Glucose quantitative blood xcpt reagent strip Baldomero Gates MD Work Phone: Start: 02-02-2025 Glucose quantitative blood xcpt reagent strip Baldomero Gates MD Work Phone: Start: 02-02-2025 Glucose quantitative blood xcpt reagent strip Baldomero Gates MD Work Phone: Start: 02-02-2025 Basic metabolic pane l calcium total Baldomero Gates MD Work Phone: Start: 02-01-2025 Glucose quantitative blood xcpt reagent strip Baldomero Gates MD Work Phone: Start: 02-01-2025 Glucose quantitative blood xcpt reagent strip Baldomero Gates MD Work Phone: Start: 02-01-2025 Potassium serum plas ma/whole blood Baldomero Gates MD Work Phone: Start: 02-01-2025 Ecg routine ecg w/le ast 12 lds trcg only w/o i&r Baldomero Gates MD Work Phone: Start: 02-01-2025 Glucose quantitative blood xcpt reagent strip Baldomero Gates MD Work Phone: Start: 01-31-2025 Radiologic examinati on knee 1/2 views Rose Vickers MD Work Phone: Start: 01-31-2025 Basic metabolic pane l calcium total Rose Vickers MD Work Phone: Start: 01-31-2025 C-reactive protein Ricci trip Frank MD Work Phone: Start: 01-24-2025 Repair intermediate s/a/t/e 2.6-7.5 cm Dara Correia DO Work Phone: Start: 01-24-2025 Radiologic exam knee complete 4/more views Erik Bishop MD Work Phone: Start: 01-23-2025 Smpl repair scalp/neck/ax/genit/trunk 2.6-7.5cm Erik Bishop MD Work Phone: Start: 10-29-2023 Fluoroscopic guidance N P-C Jamie Schroeder SHALE MINER Work Phone: Start: 10-29-2023 Plain X-ray of shoulder [employer]ER-C Jamie Schroeder [employer] MINER Work Phone: Start: 10-29-2023 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 [employer]ER-C Jamie Schroeder [employer]ER Work Phone: Start: 10-27-2023 History of total arthroplasty of right shoulder EMMY KAPPER CHIEF MEDICAL TECHNOLOGIST-FINANCE PROFESSOR Start: 09-22-2023 Nasal Screen MRSA/MSSA [employer]ER-C Jamie Schroeder [employer]ER Work Phone: Start: 06-13-2023 CT of upper limb wit hout contrast SHALE MINER-C Jamie Schroeder SHALE MINER Work Phone: Start: 06-12-2023 Plain X-ray of shoulder [employer]ALE MINER-C Jamie Schroeder [employer]ER Work Phone: Start: 05-18-2023 Ecg routine ecg w/le ast 12 lds trcg only w/o i&r Filipe Jaimes DO Work Phone: Start: 05-18-2023 Urnls dip stick/tabl et rgnt auto w/o microscopy Filipe Jaimes DO Work Phone: Start: 05-18-2023 Assay of troponin quantitative Filipe Jaimes DO Work Phone: Start: 05-18-2023 Urinalysis complete panel - Urine Filipe Jaimes DO Work Phone: Start: 05-18-2023 Urnls dip stick/tabl et reagent auto microscopy Filipe Jaimes DO Work Phone: Start: 05-18-2023 Radiologic exam ches t single view Filipe Jaimes DO Work Phone: Start: 05-18-2023 SARS-COV-2, FLU A/B, AND RSV COMBO Filipe Jaimes DO Work Phone: Start: 05-18-2023 End: 05-18-2023 Bacteria identified in Blood by Culture Filipe Jaimes DO Work Phone: Start: 05-18-2023 Comprehensive metabo lic panel Filipe Jaimes DO Work Phone: Start: 05-18-2023 Ecg routine ecg w/le ast 12 lds trcg only w/o i&r Filipe Jaimes DO Work Phone: Start: 05-14-2023 Glucose quantitative blood xcpt reagent strip Jamee Stewart MD Work Phone: Start: 05-14-2023 Basic metabolic pane l calcium total Brando Frank MD Work Phone: Start: 05-13-2023 Glucose quantitative blood xcpt reagent strip Jamee Stewart MD Work Phone: Start: 05-13-2023 Glucose quantitative blood xcpt reagent strip Jamee Stewart MD Work Phone: Start: 05-13-2023 Basic metabolic pane l calcium total Brando Frank MD Work Phone: Start: 05-12-2023 Assay of lactate Marcin Ritter MD Work Phone: Start: 05-12-2023 Assay of lactate Marcin Ritter MD Work Phone: Start: 05-12-2023 Assay of lactate Marcin Ritter MD Work Phone: Start: 05-12-2023 Drug screen quantita tive vancomycin Brando Frank MD Work Phone: Start: 05-12-2023 End: 05-12-2023 Assay of lactate Aba Ritter MD Work Phone: Start: 05-12-2023 Assay of lactate Marcin Ritter MD Work Phone: Start: 05-11-2023 Bilirubin direct Brando Frank MD Work Phone: Start: 05-11-2023 C-reactive protein Ricci Frank MD Work Phone: Start: 05-11-2023 Assay of lactate Marcin Ritter MD Work Phone: Start: 05-11-2023 Assay of troponin quantitative Aba Ritter MD Work Phone: Start: 05-11-2023 Ct abdomen & pelvis w/o contrast material Aba Ritter MD Work Phone: Start: 05-11-2023 Bacteria identified in Blood by Culture Aba Ritter MD Work Phone: Start: 05-11-2023 Culture bacterial quanttative colony count urine Aba Ritter MD Work Phone: Start: 05-11-2023 Urinalysis complete panel - Urine Aba Ritter MD Work Phone: Start: 05-11-2023 Radiologic exam ches t single view Aba Ritter MD Work Phone: Start: 05-11-2023 SARS-COV-2, FLU A/B, AND RSV COMBO Aba Ritter MD Work Phone: Start: 05-11-2023 End: 05-11-2023 Comprehensive metabolic panel Aba Ritter MD Work Phone: Start: 05-11-2023 Ecg routine ecg w/le ast 12 lds i&r only Aba Ritter MD Work Phone: Start: 11-30-2022 CT of chest Start: 11-27-2021 CT of chest Start: 06-12-2018 Occult blood screening JAMIE SCHROEDER APRN-[facility] Comment on above: negative Start: 06-02-2017 End: 06-02-2017 Demo&/eval of pt utiliz aersl gen/neb/inhlr/ip Cindy Munoz [facility] Work Phone: Start: 04-21-2017 End: 05-22-2017 *Hepatic Function Panel Brando Malhotra MD Work Phone: Start: 04-21-2017 End: 05-01-2017 Carotid duplex Brando Malhotra MD Work Phone: Start: 04-21-2017 End: 04-21-2017 DJN Brando Malhotra MD Work Phone: Start: 04-21-2017 End: 04-21-2017 Follow Up Appt 6 months Brando Malhotra MD Work Phone: Start: 04-21-2017 End: 05-22-2017 Lipid 1996 panel - Serum or Plasma Brando Malhotra MD Work Phone: Start: 10-03-2016 End: 11-06-2016 *Hepatic Function Panel Brando Malhotra MD Work Phone: Start: 10-03-2016 End: 10-03-2016 ADRIA Malhotra MD Work Phone: Start: 10-03-2016 End: 10-03-2016 Follow Up Appt 6 months Brando Malhotra MD Work Phone: Start: 10-03-2016 End: 11-06-2016 Lipid 1996 panel - Serum or Plasma Brando Malhotra MD Work Phone: Start: 07-05-2016 End: 10-03-2016 *Hepatic Function Panel Yi Mcmanus PA-C Work Phone: Start: 07-05-2016 End: 10-03-2016 Lipid 1996 panel - Serum or Plasma Yi Mcmanus PA-C Work Phone: Start: 04-24-2016 End: 07-23-2016 Pulmonary stress test/simple Cristóbal W Art kain Work Phone: Start: 01-22-2016 End: 01-22-2016 ADRIA Malhotra MD Work Phone: Start: 01-22-2016 End: 01-22-2016 Follow Up Appt 6 months Brando Malhotra MD Work Phone: Start: 01-22-2016 End: 01-23-2016 Referral to respiratory physician Brando Malhotra MD Work Phone: Start: 12-26-2015 End: 01-05-2016 *Hepatic Function Panel Brando Malhotra MD Work Phone: Start: 12-26-2015 End: 01-15-2016 Carotid duplex Brando Malhotra MD Work Phone: Start: 12-26-2015 End: 01-12-2016 ADRIA Malhotra MD Work Phone: Start: 12-26-2015 End: 01-12-2016 Ecg routine ecg w/least 12 lds w/i&r Brando Malhotra MD Work Phone: Start: 12-26-2015 End: 01-15-2016 Echocardiography Brando Malhotra MD Work Phone: Start: 12-26-2015 End: 01-12-2016 Follow Up Appt 1 month Brando Malhotra MD Work Phone: Start: 12-26-2015 End: 01-05-2016 Lipid 1996 panel - Serum or Plasma Brando Malhotra MD Work Phone: Start: 12-26-2015 End: 01-23-2016 Pulmonary Function Test - complete Brando Malhotra MD Work Phone: Start: 12-26-2015 End: 01-17-2016 Stress Echocardiogram - Dobutamine Brando Malhotra MD Work Phone: Start: 07-28-1999 Abdominal hysterectomy JAMIE SCHROEDER [employer] H/O: hysterectomy H/O: hysterectomy H/O: tubal ligation H/O tubal ligation History of appendectomy History of appendectomy History of appendectomy History of appendectomy History of total hysterectomy History of total abdominal hysterectomy Laparoscopic sterilization R NIKKI SCHROEDER [employer] Swelling of first metatarsophalangeal joint of hallux (disorder) JAMIE SCHROEDER [employer] Comment on above: bilateral YAG laser anterior capsulotomy JAMIE SCHROEDER [employer] Comment on above: right for vein occlu amelia Right groin clot rem abhi 3yrs ago Plan of Treatment Date Care Activity Detail Author Start: 01-23-2035 DTaP/Tdap/Td Vaccine s (2 - Td or Tdap) DTaP/Tdap/Td Vaccines (2 - Td or Tdap) [facility] Start: 02-08-2026 Diabetes: Estimated Glomerular Filtration Rate for Kidney Health Diabetes: Estimated Glomerular Filtration Rate for Kidney Health [facility] Start: 05-28-2025 Diabetes: Estimated Glomerular Filtration Rate for Kidney Health Diabetes: Estimated Glomerular Filtration Rate for Kidney Health [facility] Start: 03-28-2025 Influenza vaccination Influenza Vacc ine (#1) [facility] Start: 07-28-2024 Medicare Advantage A nnual Wellness Visit Medicare Advantage Annual Wellness Visit [facility] Start: 03-28-2024 COVID-19 Vaccine ( season) COVID-19 Vaccine () [facility] Start: 10-30-2023 [facility] Start: 10-29-2023 Referral to service [facility] Start: 10-29-2023 Referral to occupati onal therapist [facility] Start: 10-29-2023 Patient discharge [facility] Start: 10-29-2023 Wound care [facility] Start: 10-29-2023 Application of device [facility] Start: 10-29-2023 Assessment of risk o f venous thromboembolism [facility] Start: 10-29-2023 Catheterization of vein [facility] Start: 10-29-2023 Deep breathing and coughing exercises [facility] Start: 10-29-2023 Following clinical p athway protocol [facility] Start: 10-29-2023 Incentive spirometry [facility] Start: 10-29-2023 Introduction of urin katie catheter [facility] Start: 10-29-2023 Patient education [facility] Start: 10-29-2023 Taking patient vital signs [facility] Start: 10-29-2023 Vital signs measurements [facility] Start: 10-29-2023 End: 10-29-2023 [facility] Start: 10-29-2023 Medication education [facility] Start: 09-03-2023 Patient referral [facility] Work Phone: Start: 05-05-2023 Colsc flexible w/con trol bleeding any method COLONOSCOPY W/CONTROL BLEED [facility] Start: 05-05-2023 Colsc flx w/rmvl of tumor polyp lesion snare tq COLONOSCOPY W/LESION REMOVAL [facility] Start: 05-05-2023 Patient discharge [facility] Start: 03-28-2023 Influenza vaccination Influenza Vacc ine (#1) [facility] Start: 10-23-2022 COVID-19 Vaccine (6 - Pfizer series) COVID-19 Vaccine (6 - Pfizer series) [facility] Start: 01-18-2022 COVID-19 Vaccine (5 - Pfizer series) COVID-19 Vaccine (5 - Pfizer series) [facility] Start: 03-28-2021 Influenza vaccination Flu vaccine (# 1) [facility] Phone: Start: 2017 RSV Immunization for Adults (1 - 1-dose 75+ series) RSV Immunization for Adults (1 - 1-dose 75+ series) [facility] Start: 11-20-2017 End: 05-23-2017 *Hepatic Function Panel *Hepatic Function Panel [facility] Phone: Start: 11-20-2017 End: 05-23-2017 Lipid panel [AGGREGATE] *Lipid Profile CC PCP [facility] Phone: Start: 11-03-2017 End: 11-03-2017 Appointment Appointment [facility] Phone: Start: 07-03-2017 End: 07-03-2017 Appointment Appointment [facility] Work Phone: Start: 06-02-2017 End: 06-02-2017 [facility] Work Phone: Start: 06-02-2017 End: 06-02-2017 Follow Up Appt 1 month Follow Up Appt 1 month [facility] [place] Work Phone: Start: 06-02-2017 End: 06-02-2017 Appointment Appointment [facility] Phone: Start: 05-28-2017 End: 12-02-2016 Pulmonary Function Test - complete Pulmonary Function Test - complete [facility] Phone: Start: 05-28-2017 End: 12-02-2016 Pulmonary stress test/simple Pulmonary stress testing; simple (eg, 6-minute walk) [facility] Phone: Start: 04-21-2017 End: 05-22-2017 *Hepatic Function Panel *Hepatic Function Panel [facility] Work Phone: Start: 04-21-2017 End: 04-21-2017 Carotid duplex Carotid duplex [facility] Work Phone: Start: 04-21-2017 End: 04-21-2017 DJN DJN [facility] Work Phone: Start: 04-21-2017 End: 04-21-2017 Follow Up Appt 6 months Follow Up Appt 6 months [facility] Work Phone: Start: 04-21-2017 End: 05-22-2017 Lipid panel [AGGREGATE] *Lipid Profile CC PCP [facility] Work Phone: Start: 12-02-2016 End: 12-02-2016 [facility] Work Phone: Start: 12-02-2016 End: 12-02-2016 Follow Up Appt 6 months Follow Up Appt 6 months [facility] Work Phone: Start: 11-25-2016 End: 07-24-2016 Follow Up Appt 4 months Follow Up Appt 4 months [facility] Work Phone: Start: 10-03-2016 End: 11-06-2016 *Hepatic Function Panel *Hepatic Function Panel [facility] Work Phone: Start: 10-03-2016 End: 10-03-2016 DJN DJN [facility] Work Phone: Start: 10-03-2016 End: 10-03-2016 Follow Up Appt 6 months Follow Up Appt 6 months [facility] Work Phone: Start: 10-03-2016 End: 11-06-2016 Lipid panel [AGGREGATE] *Lipid Profile CC PCP [facility] Work Phone: Start: 07-24-2016 End: 07-24-2016 BWA BWA [facility] Work Phone: Start: 07-05-2016 End: 10-03-2016 *Hepatic Function Panel *Hepatic Function Panel [facility] Work Phone: Start: 07-05-2016 End: 10-03-2016 Lipid panel [AGGREGATE] *Lipid Profile CC PCP [place] [facility] Work Phone: Start: 04-24-2016 End: 04-24-2016 [facility] Work Phone: Start: 04-24-2016 End: 04-24-2016 Follow Up Appt 3 months Follow Up Appt 3 months [facility] Work Phone: Start: 04-24-2016 End: 07-23-2016 Pulmonary stress test/simple Pulmonary stress testing; simple (eg, 6-minute walk) [facility] Work Phone: Start: 01-22-2016 End: 01-22-2016 ADRIA COVINGTON [facility] Work Phone: Start: 01-22-2016 End: 01-22-2016 Follow Up Appt 6 months Follow Up Appt 6 months [facility] Work Phone: Start: 01-22-2016 End: 01-23-2016 Pulmonary Referral Pulmonary Referral Cristóbal Felix, [facility] [place], [address], [place], [address] [facility] Work Phone: Start: 12-26-2015 End: 01-05-2016 *Hepatic Function Panel *Hepatic Function Panel [facility] Work Phone: Start: 12-26-2015 End: 12-26-2015 Carotid duplex Carotid duplex [facility] Work Phone: Start: 12-26-2015 End: 01-12-2016 DJUzma COVINGTON [facility] Work Phone: Start: 12-26-2015 End: 01-12-2016 Ecg routine ecg w/least 12 lds w/i&r EKG (In office) [facility] Work Phone: Start: 12-26-2015 End: 12-26-2015 Echocardiography Echocardiogram (complete) [facility] Work Phone: Start: 12-26-2015 End: 01-12-2016 Follow Up Appt 1 month Follow Up Appt 1 month [facility] Work Phone: Start: 12-26-2015 End: 01-05-2016 Lipid panel [AGGREGATE] *Lipid Profile CC PCP [facility] Work Phone: Start: 12-26-2015 End: 12-26-2015 Pulmonary Function Test - complete Pulmonary Function Test - complete [facility] Work Phone: Start: 12-26-2015 End: 12-26-2015 Stress Echocardiogram - Dobutamine Stress Echocardiogram - Dobutamine [facility] Work Phone: Start: 07-28-2010 Pneumococcal Vaccine : 50+ Years (2 of 2 - PCV) Pneumococcal Vaccine: 50+ Years (2 of 2 - PCV) [facility] Start: 07-28-2010 Pneumococcal Vaccine : 65+ Years (2 - PCV) Pneumococcal Vaccine: 65+ Years (2 - PCV) [facility] Start: 2002 Hepatitis B Vaccines (1 of 3 - Risk 3-dose series) Hepatitis B Vaccines (1 of 3 - Risk 3-dose series) [facility] Start: 1992 Zoster Vaccines (1 of 2) Zoster Vacc hero (1 of 2) [facility] Start: 1961 DTaP/Tdap/Td Vaccine s (1 - Tdap) DTaP/Tdap/Td Vaccines (1 - Tdap) [facility] Start: 1960 Diabetes: Urine Albumin-Creatinine Ratio for Kidney Health Diabetes: Urine Albumin-Creatinine Ratio for Kidney Health [facility] Start: 1954 COVID-19 Vaccine (1) COVID-19 Vaccin e (1) [facility] Work Phone: Start: 1954 Depression Monitoring Depression Mon itoring [facility] Start: 1954 Depression Screening Depression Scre ening [employer] [facility] Start: 1948 Pneumococcal Vaccine : 65+ Years (1 - PCV) Pneumococcal Vaccine: 65+ Years (1 - PCV) [employer] [facility] Start: 1942 Creatinine measurement Creatinine mo nitoring [facility] Work Phone: Start: 1942 Medicare Advantage A nnual Wellness Visit (AWV) Medicare Advantage Annual Wellness Visit (AWV) [facility] Start: 1942 Potassium monitoring Potassium monit oring [facility] Work Phone: Start: 1940 Screening for osteoporosis Bone Dens ity Scan [facility] End: 02-03-2025 Aerobic and Anaerobic Culture with Stain [facility] [employer] Work Phone: Comment on above: Once (Lab) for 1 Occ urrences starting 02/03/2025 until 02/03/2025 Bacteria identified in Blood by Culture [facility] Work Phone: Bacteria identified in Blood by Culture [facility] Work Phone: Bacteria identified in Unspecified specimen by Aerobe culture Culture, Aerobic Bacteria with Gram Stain Microbiology Routine 02/03/2025 2:59 PM EDT [facility] Bacteria identified in Unspecified specimen by Anaerobe culture Anaerobic culture Microbiology Routine 02/03/2025 2:59 PM EDT [facility] ECG 12 lead ECG 12 lead CV E CG STAT 05/18/2023 10:03 PM EDT [facility] Patient Education [facility] Work Phone: Patient referral [facility] Work Phone: Immunizations Immunization Date Immunization Notes Care Provider Fa [facility] 01-23-2025 tetanus toxoid, redu bri diphtheria toxoid, and acellular pertussis vaccine, adsorbed NA Edna [facility] Work Phone: [facility] 06-04-2024 SARS-CoV-2 (COVID-19 ) [id number] JAMIE SCHROEDER CHIEF MEDICAL TECHNOLOGIST-FINANCE PROFESSOR [facility] 04-28-2024 influenza virus vacc ine, unspecified formulation JAMIE SCHROEDER CHIEF MEDICAL TECHNOLOGIST-FINANCE PROFESSOR [facility] 07-15-2023 RSV vaccine preF3, recombinant EMMY GARVIN CHIEF MEDICAL TECHNOLOGIST-FINANCE PROFESSOR [facility] 07-15-2023 SARS-CoV-2 (COVID-19 ) [id number] EMMY ROBLEDOBAILEY CHIEF MEDICAL TECHNOLOGIST-[facility] 07-15-2023 Pneumococcal conjuga te PCV20, polysaccharide AFN103 conjugate, adjuvant, PF; Translations: [Prevnar 20] EMMY VIRGIE CHIEF MEDICAL TECHNOLOGIST-FINANCE PROFESSOR [facility] 06-25-2023 influenza virus vacc ine, unspecified formulation EMMY ROBLEDOBAILEY CHIEF MEDICAL TECHNOLOGIST-FINANCE PROFESSOR [facility] 06-25-2023 influenza, injectabl e, quadrivalent, preservative free [employer] Jamie Schroeder [employer] Work Phone: [facility] 06-25-2022 COVID-19, mRNA, LNP- S, bivalent, PF, 50 mcg/0.5 mL dose; Translations: [Moderna COVID-19 Bivalent Booster Vaccine PF] JAMIE SCHROEDER CHIEF MEDICAL TECHNOLOGIST-FINANCE PROFESSOR [facility] 06-25-2022 SARS-CoV-2 (CV19)mRNA-1273 bivalent vac; Translations: [Moderna COVID-19 Bivalent Booster Vaccine PF] EMMY VIRGIE CHIEF MEDICAL TECHNOLOGIST-FINANCE PROFESSOR [facility] 06-13-2022 influenza virus vacc ine, unspecified formulation JAMIE SCHROEDER CHIEF MEDICAL TECHNOLOGIST-FINANCE PROFESSOR [facility] 06-13-2022 influenza, injectabl e, quadrivalent, preservative free [employer] Jamie Schroeder [employer] Work Phone: [facility] 06-13-2022 influenza, seasonal, injectable [facility] 11-23-2021 COVID-19, mRNA, LNP- S, PF, 100 mcg or 50 mcg dose; Translations: [Moderna COVID-19 Vaccine] JAMIE SCHROEDER CHIEF MEDICAL TECHNOLOGIST-FINANCE PROFESSOR [facility] 07-04-2021 SARS-CoV-2 mRNA (tozinameran) vaccine JAMIE SCHROEDER CHIEF MEDICAL TECHNOLOGIST-FINANCE PROFESSOR [facility] 11-06-2020 SARS-CoV-2 mRNA (tozinameran) vaccine JAMIE SCHROEDER CHIEF MEDICAL TECHNOLOGIST-FINANCE PROFESSOR [facility] 10-14-2020 SARS-CoV-2 mRNA (tozinameran) vaccine JAMIE [facility] CHIEF MEDICAL TECHNOLOGIST-FINANCE PROFESSOR [facility] 07-28-2009 pneumococcal polysaccharide vaccine, 23 valent [facility]IEF MEDICAL TECHNOLOGIST-FINANCE PROFESSOR [facility] Payers Date Payer Category Payer Unknown [id number] 2023 Medicare [id number] 2023 Self-pay [id number] 2023 Medicare [employer]ICARE [id number] 2023-Present [address] [place] [id number] Medicare HMO [id number] 2023 Medicare HMO [employer] [id number] 2016 Unknown [id number] 2016 Unknown [id number] 1942 Unknown [id number] 2.16.840.1.851605.3.579.2.627 1942 Unknown [id number] 2.16.840.1.658744.3.579.2.62 1942 Unknown [id number] 2.16.840.1.622035.3.579.2.62 1942 Unknown [id number] 2.16.840.1.731544.3.579.2. 1942 Unknown [id number] 2.16.840.1.162549.3.579.2. 1942 Unknown [id number] 2.16.840.1.385455.3.579.2. 1942 Unknown [id number] 2.16.840.1.853199.3.579.2. 1942 Unknown [id number] 2.16.840.1.030654.3.579.2. 1942 Unknown [id number] 2.16.840.1.546920.3.579.2. 1942 Unknown [id number] 2.16.840.1.806786.3.579.2. 1942 Unknown [id number] 2.16.840.1.614101.3.579.2.62 1942 Unknown [id number] 2.16.840.1.258063.3.579.2. 1942 Unknown [id number] 2.16.840.1.495967.3.579.2.62 1942 Unknown [id number] 2.16.840.1.939111.3.579.2.627 1942 Unknown [id number] 2.16.840.1.617329.3.579.2.627 1942 Unknown [id number] 2.16.840.1.904067.3.579.2.1242 Medicare [id number] Unknown [id number] 2.16.840.1.947213.3.579.2.462 Unknown [id number] 2.16.840.1.815983.3.579.2.462 Unknown [id number] 2.16.840.1.725631.3.579.2.462 Unknown [id number] 2.16.840.1.824486.3.579.2.462 Unknown [id number] 2.16.840.1.780419.3.579.2.462 Unknown [id number] 2.16.840.1.083321.3.579.2.462 Unknown [id number] 2.16.840.1.504855.3.579.2.462 Unknown [id number] 2.16.840.1.298522.3.579.2.462 Unknown [id number] 2.16.840.1.544248.3.579.2.462 Unknown [id number] 2.16.840.1.786401.3.579.2.462 Unknown [id number] 2.16.840.1.454394.3.579.2.462 Unknown [id number] 2.16.840.1.845053.3.579.2.462 Unknown [id number] 2.16.840.1.036482.3.579.2.462 Unknown [id number] 2.16.840.1.489393.3.579.2.462 Unknown [id number] 2.16.840.1.725349.3.579.2.462 Unknown [id number] 2.16.840.1.842020.3.579.2.462 Unknown [id number] 2.16.840.1.575273.3.579.2.462 Unknown [id number] 2.16.840.1.544252.3.579.2.462 Unknown [id number] 2.16.840.1.447962.3.579.2.462 Unknown [id number] 2.16.840.1.958592.3.579.2.462 Unknown [id number] 2.16.840.1.530055.3.579.2.462 Unknown [id number] 2.16.840.1.031045.3.579.2.462 Unknown [id number] 2.16.840.1.498739.3.579.2.462 Unknown [id number] 2.16840.1.376926.3.579.2.462 Unknown [id number] 2.16.840.1.037148.3.579.2.462 Unknown [id number] 2.16.840.1.065051.3.579.2.462 Unknown [id number] 2.16.840.1.524992.3.579.2.462 Unknown [id number] 2.16.840.1.351978.3.579.2.462 Unknown [id number] 2.16.840.1.952262.3.579.2.462 Unknown [id number] 2.16.840.1.202784.3.579.2.462 Unknown [id number] 2.16.840.1.879368.3.579.2.462 Unknown [id number] 2.16.840.1.942311.3.579.2.462 Unknown [id number] 2.16.840.1.431714.3.579.2.462 Unknown [id number] 2.16.840.1.064565.3.579.2.462 Unknown [id number] 2.16.840.1.954735.3.579.2.462 Unknown [id number] 2.16.840.1.517234.3.579.2.462 Unknown [id number] 2.16.840.1.345085.3.579.2.462 Unknown [id number] 2.840.1.047284.3.579.2.462 Unknown [id number] 2.840.1.746040.3.579.2.462 Unknown [id number] 2.840.1.266287.3.579.2.462 Unknown [id number] 2.840.1.271490.3.579.2.462 Unknown [id number] 2.840.1.427641.3.579.2.462 Unknown [id number] 2.840.1.350574.3.579.2.462 Unknown [id number] 2.840.1.615550.3.579.2.462 Unknown [id number] 2.840.1.926823.3.579.2.462 Unknown [id number] 2.840.1.180247.3.579.2.462 Unknown [id number] 2.840.1.851755.3.579.2.462 Unknown [id number] 2.840.1.424494.3.579.2.462 Unknown [id number] 2.840.1.589010.3.579.2.462 Unknown [id number] 2.16840.1.972731.3.579.2.462 Unknown [id number] 2.16840.1.412537.3.579.2.462 Unknown [id number] 2.840.1.022520.3.579.2.462 Unknown [id number] 2.16.840.1.289569.3.579.2.462 Social History Date Type Detail Facility Start: 05-04-2021 Tobacco smoking stat us NHIS Never smoker [facility] Work Phone: Start: 05-04-2021 Tobacco use and exposure Never used [facility] Start: 05-04-2021 End: 02-01-2025 Alcohol intake Ex-drinker (finding) [facility] Work Phone: Start: 1940 Sex Assigned At Not on file S [facility] Work Phone: Exposure to SARS-CoV -2 (event) Not sure [facility] Start: 05-01-2021 End: 10-30-2023 Tobacco smoking status PAIS Unknown if ever smoked [facility] Start: 1940 Sex Assigned At Female A [facility] Start: 02-22-2019 End: 09-21-2024 Tobacco smoking status Ex-smoker (finding) [facility] Comment on above: Quit in 2015 Start: 05-12-2023 End: 02-08-2025 History of Social function [facility] Start: 05-12-2023 End: 02-08-2025 Humiliation, Afraid, Rape, and Kick questionnaire [HARK] [facility] Within the last year , have you been afraid of your partner or ex-partner? No [facility] How often to you hav e a drink containing alcohol? Never [facility] How many standard dr inks containing alcohol do you have on a typical day? 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 EA=BOX of 100, # 1 EA, 3 Refill(s), [facility]acy: [id number], 152.4, cm, 01/09/23 10:56:00 EDT, Height, 51.6, kg, 01/09/23 10:56:00 EDT, Dosing Weight Start: 04-16-2023 See Instructions , True Metrix test strips to test BID for Type II DM w/CKD st - EA=BOX of 100, # 1 EA, 3 Refill(s), Pharmacy: [facility] #[id number], 152.4, cm, 01/09/23 10:56:00 EDT, Height, 51.6, kg, 01/09/23 10:56:00 EDT, Dosing Weight Start: 04-16-2023 See Instructions , True Metrix lancets to test BID for Type II DM w/CKD st EA=BOX of 100, # 1 EA, 3 Refill(s), Pharmacy: [facility] #[id number], 152.4, cm, 01/09/23 10:56:00 EDT, Height, 51.6, kg, 01/09/23 10:56:00 EDT, Dosing Weight Start: 04-16-2023 See Instructions , True Metrix test strips to test BID for Type II DM w/CKD st . EA=BOX of 100, # 1 EA, 3 Refill(s), Pharmacy: [facility] #[id number], 152.4, cm, 01/09/23 10:56:00 EDT, Height, 51.6, kg, 01/09/23 10:56:00 EDT, Dosing Weight Start: 04-16-2023 See Instructions , True Metrix lancets to test BID for Type II DM w/CKD st . EA=BOX of 100, # 1 EA, 3 Refill(s), [facility]: [facility][id number], 152.4, cm, 01/09/23 10:56:00 EDT, Height, 51.6, kg, 01/09/23 10:56:00 EDT, Dosing Weight Start: 04-16-2023 See Instructions , True Metrix test strips to test BID for Type II DM w/CKD st - . EA=BOX of 100, # 1 EA, 3 Refill(s), [id number], 152.4, cm, 01/09/23 10:56:00 EDT, Height, 51.6, kg, 01/09/23 10:56:00 EDT, Dosing Weight Start: 04-16-2023 See Instructions , True Metrix lancets to test BID for Type II DM w/CKD st 3 - . EA=BOX of 100, # 1 EA, 3 Refill(s), [facility]: [facility] #[id number], 152.4, cm, 01/09/23 10:56:00 EDT, Height, 51.6, kg, 01/09/23 10:56:00 EDT, Dosing Weight Start: 04-16-2023 See Instructions , True Metrix test strips to test BID for Type II DM w/CKD st . EA=BOX of 100, # 1 EA, 3 Refill(s), [facility]: [facility] #[id number], 152.4, cm, 01/09/23 10:56:00 EDT, Height, 51.6, kg, 01/09/23 10:56:00 EDT, Dosing Weight Start: 04-16-2023 See Instructions , True Metrix lancets to test BID for Type II DM w/CKD st - . EA=BOX of 100, # 1 EA, 3 Refill(s), [facility]: [facility] #[id number], 152.4, cm, 01/09/23 10:56:00 EDT, Height, 51.6, kg, 01/09/23 10:56:00 EDT, Dosing Weight Start: 04-16-2023 See Instructions , True Metrix test strips to test BID for Type II DM w/CKD st - . EA=BOX of 100, # 1 EA, 3 Refill(s), Pharmacy: [facility] #[id number], 152.4, cm, 01/09/23 10:56:00 EDT, Height, 51.6, kg, 01/09/23 10:56:00 EDT, Dosing Weight Start: 04-16-2023 See Instructions , True Metrix lancets to test BID for Type II DM w/CKD st 3 - . EA=BOX of 100, # 1 EA, 3 Refill(s), [facility] #[id number], 152.4, cm, 01/09/23 10:56:00 EDT, Height, 51.6, kg, 01/09/23 10:56:00 EDT, Dosing Weight Start: 04-16-2023 See Instructions , True Metrix test strips to test BID for Type II DM w/CKD st - . EA=BOX of 100, # 1 EA, 3 Refill(s), [facility]: [facility] #[id number], 152.4, cm, 01/09/23 10:56:00 EDT, Height, 51.6, kg, 01/09/23 10:56:00 EDT, Dosing Weight Start: 04-16-2023 See Instructions , True Metrix lancets to test BID for Type II DM w/CKD st . EA=BOX of 100, # 1 EA, 3 Refill(s), [facility]: [facility] #[id number], 152.4, cm, 01/09/23 10:56:00 EDT, Height, 51.6, kg, 01/09/23 10:56:00 EDT, Dosing Weight Start: 04-16-2023 See Instructions , True Metrix test strips to test BID for Type II DM w/CKD st . EA=BOX of 100, # 1 EA, 3 Refill(s), [facility]: [facility] #[id number], 152.4, cm, 01/09/23 10:56:00 EDT, Height, 51.6, kg, 01/09/23 10:56:00 EDT, Dosing Weight Start: 04-16-2023 See Instructions , True Metrix lancets to test BID for Type II DM w/CKD st . EA=BOX of 100, # 1 EA, 3 Refill(s), [facility]: [facility] #[id number], 152.4, cm, 01/09/23 10:56:00 EDT, Height, 51.6, kg, 01/09/23 10:56:00 EDT, Dosing Weight Start: 04-16-2023 See Instructions , True Metrix test strips to test BID for Type II DM w/CKD st - . EA=BOX of 100, # 1 EA, 3 Refill(s), [facility]: [facility] #[id number], 152.4, cm, 01/09/23 10:56:00 EDT, Height, 51.6, kg, 01/09/23 10:56:00 EDT, Dosing Weight Start: 04-16-2023 See Instructions , True Metrix lancets to test BID for Type II DM w/CKD st EA=BOX of 100, # 1 EA, 3 Refill(s), [facility]: [facility] #[id number], 152.4, cm, 01/09/23 10:56:00 EDT, Height, 51.6, kg, 01/09/23 10:56:00 EDT, Dosing Weight Start: 04-16-2023 See Instructions , True Metrix test strips to test BID for Type II DM w/CKD st EA=BOX of 100, # 1 EA, 3 Refill(s), [facility]: [facility] #[id number], 152.4, cm, 01/09/23 10:56:00 EDT, Height, 51.6, kg, 01/09/23 10:56:00 EDT, Dosing Weight Start: 04-16-2023 See Instructions , True Metrix lancets to test BID for Type II DM w/CKD st EA=BOX of 100, # 1 EA, 3 Refill(s), [facility]: [facility] #[id number], 152.4, cm, 01/09/23 10:56:00 EDT, Height, 51.6, kg, 01/09/23 10:56:00 EDT, Dosing Weight Start: 04-16-2023 See Instructions , True Metrix test strips to test BID for Type II DM w/CKD st . EA=BOX of 100, # 1 EA, 3 Refill(s), [facility]: [facility] #[id number], 152.4, cm, 01/09/23 10:56:00 EDT, Height, 51.6, kg, 01/09/23 10:56:00 EDT, Dosing Weight Start: 04-16-2023 Goals Date Patient Goal Desired Activity /State Functional Status Date Assessment Result Facility 01-24-2025 Total score [AUDIT-C] 0 01/25/20 25 7:57 PM EDT Janelle Pérez, RN [facility] 12-05-2023 Functional Status Independent Roney Rosas [facility] 12-05-2023 Functional Status Lunch Percent 98 [facility] 12-05-2023 Functional Status Sequential Com pression Device bilateral knee high removed/off [facility] 12-05-2023 Functional Status Identified as high risk, Fall ID band on, Door open, Non-Slip footwear, Room check performed [facility] 12-05-2023 Functional Status 7pm-7am Ronye [facility] 12-05-2023 Functional Status Roney Rosas [facility] 12-04-2023 Functional Status Roney Rosas [facility] 12-04-2023 Functional Status Roney Rosas [facility] 12-04-2023 Functional Status Roney [facility] 12-04-2023 Functional Status Roney [facility] 12-04-2023 Functional Status Roney Rosas [facility] 12-03-2023 Functional Status Roney [facility] 12-03-2023 Functional Status Roney Rosas [facility] 12-02-2023 Functional Status Roney Rosas [facility] 12-02-2023 Functional Status Financial sky gement, Home management, Meal preparation, Personal ADL [facility] 12-01-2023 Functional Status Sensory Deficits None A [facility] Mental Status Date Assessment Result Facility 12-05-2023 Mental Status Oriented x 4 [facility] 12-04-2023 Mental Status [facility] 12-03-2023 Mental Status [facility] 10-29-2023 Cognitive function Voice/Name [facility] Work Phone: 05-05-2023 Cognitive function Voice/Name [facility] Work Phone: Clinical Notes 09-07-2020 to 02-07-2025 Noel Cardoza RN - 02/07/2025 7:33 PM EDTNoel Cardoza RN - 02/07/2025 7:33 PM EDTNoel Cardoza RN - 02/07/2025 6:38 PM EDJosr Lara RN - 02/02/2025 6:52 AM EDTAttachments Note Date & Type Note Facility 02-07-2025 Nurse Note Rigo Orr arrived to sampler pickup patient but was unable to fit all of her belongings. Pt personal rolator walked left behind. Per pt, this RN called her daughter Ambreen who says she will come to pick it up tomorrow after work. [facility] 02-07-2025 Nurse Note Rigo Orr arrived to sampler pickup patient but was unable to fit all of her belongings. Pt personal rolator walked left behind. Per pt, this RN called her daughter Ambreen who says she will come to pick it up tomorrow after work. Report called to [facility]. ETA for Rigo Orr was originally 1630 but they called at 1710 to report new ETA of [id number]. Have not arrived yet. Wound Care consulted for Pressure Injury Prevention. Pt's Samm= 20, pt is no longer at risk at this time. Skin Care Precaution order set ordered. Will continue to follow peripherally. Please secure chat message with any questions. Richelle Lara RN Patient blood sugar 44. Patient alert and oriented, asymptomatic, given 4 ounces of orange juice. 0200: rechecked blood sugar-79, patient denies any symptoms, remains alert and oriented. documented in this encounter [facility] 02-07-2025 Nurse Note Report called to [facility]. ETA for Rigo Orr was originally 1630 but they called at 1710 to report new ETA of [id number]. Have not arrived yet. [facility] 02-07-2025 Miscellaneous Notes Patient Choice Patient Name: ANSON CAPPS Date of : 1940 All Providers Sent [facility] Phone: [phone] Address: [address] [place], [place] [id number] Name: [facility] Phone: [phone] Address: [address] [place] [address] Name: [facility]. Phone: [phone] Address: [address] [place] [address] MAR & Discharge med list transmitted to [facility] via Careport per TCC request. DC orders noted. Number to N2N given to RN. MANAGER UTILITY tasked to send DC packet and MAR to [facility]. Transport set up by for 4:30 pm pickup. Problem: Pain - Adult Goal: Verbalizes/displays adequate comfort level or baseline comfort level Outcome: Completed Problem: Safety - Adult Goal: Free from fall injury Outcome: Completed Problem: Discharge Planning Goal: Discharge to home or other facility with appropriate resources Outcome: Completed Problem: Chronic Conditions and Co-morbidities Goal: Patient's chronic conditions and co-morbidity symptoms are monitored and maintained or improved Outcome: Completed Problem: Problem Interventions Goal: Promote nutritional intake Outcome: Completed Problem: Knowledge Deficit Goal: Patient/family/caregiver demonstrates understanding of disease process, treatment plan, medications, and discharge instructions Outcome: Completed Problem: Potential for Falls Goal: I will remain free of falls Outcome: Completed Problem: Discharge Barriers Goal: My discharge needs are met Outcome: Completed Care Management Progress Note Short Medical why still here: Placement This TCC called and spoke with Ambreen, pt's daughter to inform her of DC to [facility] today and that transport set up for 4:30 pm. Also informed their could be a potential copay with transportation set up. Ambreen verbalized understanding and states will inform her toher sisters Gabriel and Brigitte of pt's DC today to [facility]. Planned Discharge Disposition: Penitentiary/Residential Care Barriers/Today we still Wait: Facility pre-cert Length of Stay (Days): 0 GMLOS: 2.6 S/W, Transport Transport set via [facility] at 430p to [facility]. Facility updated in Careport of time. TCC and senior occupational therapist messaged as well. Care Management Progress Note Short Medical why still here: Placement. Notified by facility ( [facility] that they are able to accept and will not need precert auth. Pt will be going under her Medicaid and the facility is working on LOC. Dr. Gates notified that pt and DC today . Awaiting DC paperwork. SW completed PASSAR and will arrange DC transportation. Planned Discharge Disposition: Penitentiary/Residential Care Barriers/Today we still Wait: Facility pre-cert Length of Stay (Days): 0 GMLOS: 2.6 S/W, PASSR PASSR completed in [facility] for [facility]. I did update facility in [facility]. Updated notes sent to [facility]- [facility] via [facility] per TCC request. Await review and response regarding ability to accept. TCC notified. Messaged [facility] in Care port that pt looks to be ready to DC. Pt will be going to facility under Medicaid. SW to do PASSAR and MANAGER UTILITY tasked to send updated to facility. Awaiting response from [facility]. Will continue to follow. Problem: Pain - Adult Goal: Verbalizes/displays adequate comfort level or baseline comfort level Outcome: Progressing Problem: Safety - Adult Goal: Free from fall injury Outcome: Progressing Problem: Discharge Planning Goal: Discharge to home or other facility with appropriate resources Outcome: Progressing Problem: Chronic Conditions and Co-morbidities Goal: Patient's chronic conditions and co-morbidity symptoms are monitored and maintained or improved Outcome: Progressing Problem: Problem Interventions Goal: Promote nutritional intake Outcome: Progressing Problem: Knowledge Deficit Goal: Patient/family/caregiver demonstrates understanding of disease process, treatment plan, medications, and discharge instructions Outcome: Progressing Problem: Potential for Falls Goal: I will remain free of falls Outcome: Progressing Problem: Discharge Barriers Goal: My discharge needs are met Outcome: Progressing Problem: Pain - Adult Goal: Verbalizes/displays adequate comfort level or baseline comfort level Outcome: Progressing Problem: Safety - Adult Goal: Free from fall injury Outcome: Progressing Problem: Discharge Planning Goal: Discharge to home or other facility with appropriate resources Outcome: Progressing Problem: Chronic Conditions and Co-morbidities Goal: Patient's chronic conditions and co-morbidity symptoms are monitored and maintained or improved Outcome: Progressing Problem: Problem Interventions Goal: Promote nutritional intake Outcome: Progressing Problem: Knowledge Deficit Goal: Patient/family/caregiver demonstrates understanding of disease process, treatment plan, medications, and discharge instructions Outcome: Progressing Problem: Potential for Falls Goal: I will remain free of falls Outcome: Progressing Problem: Discharge Barriers Goal: My discharge needs are met Outcome: Progressing Problem: Pain - Adult Goal: Verbalizes/displays adequate comfort level or baseline comfort level Outcome: Progressing Problem: Safety - Adult Goal: Free from fall injury Outcome: Progressing Problem: Discharge Planning Goal: Discharge to home or other facility with appropriate resources Outcome: Progressing Problem: Chronic Conditions and Co-morbidities Goal: Patient's chronic conditions and co-morbidity symptoms are monitored and maintained or improved Outcome: Progressing Problem: Problem Interventions Goal: Promote nutritional intake Outcome: Progressing Problem: Pain - Adult Goal: Verbalizes/displays adequate comfort level or baseline comfort level Outcome: Progressing Problem: Safety - Adult Goal: Free from fall injury Outcome: Progressing Problem: Discharge Planning Goal: Discharge to home or other facility with appropriate resources Outcome: Progressing Problem: Chronic Conditions and Co-morbidities Goal: Patient's chronic conditions and co-morbidity symptoms are monitored and maintained or improved Outcome: Progressing Problem: Problem Interventions Goal: Promote nutritional intake Outcome: Progressing Problem: Knowledge Deficit Goal: Patient/family/caregiver demonstrates understanding of disease process, treatment plan, medications, and discharge instructions Outcome: Progressing Problem: Potential for Falls Goal: I will remain free of falls Outcome: Progressing Problem: Discharge Barriers Goal: My discharge needs are met Outcome: Progressing Problem: Pain - Adult Goal: Verbalizes/displays adequate comfort level or baseline comfort level Outcome: Progressing Flowsheets (Taken 02/05/2025 0506) Verbalizes/displays adequate comfort level or baseline comfort level: Encourage patient to monitor pain and request assistance Assess pain using appropriate pain scale Problem: Safety - Adult Goal: Free from fall injury Outcome: Progressing Problem: Chronic Conditions and Co-morbidities Goal: Patient's chronic conditions and co-morbidity symptoms are monitored and maintained or improved Outcome: Progressing Flowsheets (Taken 02/05/2025 0506) Care Plan - Patient's Chronic Conditions and Co-Morbidity Symptoms are Monitored and Maintained or Improved: Monitor and assess patient's chronic conditions and comorbid symptoms for stability, deterioration, or improvement S/W, assist Patient and daughter requested to speak to S/W about placement. Patient and daughter both indicating they desire placement at [facility], daughter indicated under Medicaid Second choice per patient would be [facility] SNF. Case discussed with TCC. Discussed patient wishes, patient does have [facility] and could admit under her Medicaid. Therapies here recc only HHC. TCC sending referrals to [facility] and [facility]. Referral placed via Careport to [facility]. Referral placed to SN[facility] via Careport per TCC request. Await review and response regarding ability to accept. TCC notified. -SW met with pt and daughter at bedside. Apparently pt has a Medicaid product available to use. They would like referrals sent to [facility] and [facility]. Pt would go to facility as an intermediate care level. -Tasked MANAGER UTILITY to send those referrals. -horse stud manager to follow for facility responses and assist as needed. -SW to continue to follow as well. -Was informed by bedside RN of patient want to go to [facility]. -PT/OT recommending home with [facility]. Pt will not qualify for SNF. Pt also refused to work with PT this morning. -Informed pt and daughter Brigitte ([phone]) of this information. Both were extremely unhappy that we can't send her to [facility] for SNF. Informed both of them that pt could pay out of pocket for SNF and privately pay for home health aids, both who stated they can not afford. Brigitte and pt both stated they are in the process of setting up respite care at [facility] through [facility], a process that they started last week before this admission. Instructed both pt and daughter to continue pursuing that process. Both verbalized understanding. -Daughter Brigitte was so unhappy that she stated I will not sampler pickup my mother once she is discharged, due to her feeling pt is not capable for caring for herself. Brigitte states the family is tired and need a break. Again instructed Brigitte to follow through with the respite plans. -This CM did mistakenly tell the pt and daughter of pt's Medicare rights with appealing her discharge. Both stated they are planning on appealing the discharge. However, pt is in observation status, and can not appeal her discharge. A patient can not appeal while in observation status. She will have to go home with [facility] once discharged. Informed pt of this CM's mistake and informed her she will not be able to appeal. She verbalized understanding. -Discharge plan will be home with [facility] with pt and family finishing the respite care process on their own. -horse stud manager to follow and assist as needed. Care Management Progress Note Short Medical why still here: IV ATB, breathing treatments Planned Discharge Disposition: Home Health Services. [facility] following. Barriers/Today we still Wait: Administering IV medications, Clinical stability, Symptomatic control Discharge plan is home with [facility]. horse stud manager to follow and assist as needed. Length of Stay (Days): 0 GMLOS: 2.6 Problem: Pain - Adult Goal: Verbalizes/displays adequate comfort level or baseline comfort level Outcome: Progressing Problem: Safety - Adult Goal: Free from fall injury Outcome: Progressing Problem: Discharge Planning Goal: Discharge to home or other facility with appropriate resources Outcome: Progressing Problem: Chronic Conditions and Co-morbidities Goal: Patient's chronic conditions and co-morbidity symptoms are monitored and maintained or improved Outcome: Progressing Problem: Problem Interventions Goal: Promote nutritional intake Outcome: Progressing Problem: Pain - Adult Goal: Verbalizes/displays adequate comfort level or baseline comfort level Outcome: Progressing Problem: Safety - Adult Goal: Free from fall injury Outcome: Progressing Problem: Discharge Planning Goal: Discharge to home or other facility with appropriate resources Outcome: Progressing Problem: Chronic Conditions and Co-morbidities Goal: Patient's chronic conditions and co-morbidity symptoms are monitored and maintained or improved Outcome: Progressing Problem: Problem Interventions Goal: Promote nutritional intake Outcome: Progressing S/W, Call placed again to [facility] to request increased aide help in the home. I did speak with coverage with this request, they will forward the request to patient Jonas [place]. spoke with pt's dtr Ambreen -- she mentioned that pt is with [facility] and was working on getting more services set up -- pt lives alone. Currently she has an aide on Mon and Fri. Msg sent to [facility] for someone to reach out to to check on status and to leave a private duty list at bedside in case family would have to go that route. Start PACC Note Home Health Referral Educated patient's dtr Ambreen on Home Care and services available. Patient offered choice of available HHC and agreeable to RN PT OT DISABILITY CASE MANAGER SW services with [facility] - Home Care. Care Types: None Isolation Precautions: No active isolations Social Determinates of Health: Tobacco Use: Low Risk (02/01/2025) Patient History Smoking Tobacco Use: Never Smokeless Tobacco Use: Never Passive Exposure: Not on file Social History Substance and Sexual Activity Alcohol Use Not Currently Social History Substance and Sexual Activity Drug Use Never Does the patient have any financial resource strain? No Does the patient have any food insecurities? No Does the patient have any housing instabilities? No If any of the above is noted as yes - consider a BOREMATIC OPERATOR evaluation once the patient returns home. START PATIENT REGISTRATION INFORMATION Order Information Order Signing Physician: Baldomero Gates MD Service Ordered RN ?: Yes Service Ordered PT ?: Yes Service Ordered OT ?: Yes Service Ordered ST ?: No Service Ordered BOREMATIC OPERATOR?:Yes Service Ordered DISABILITY CASE MANAGER?: Yes Following Physician: Jamie Schroeder Following Physician Overseeing Physician: Jamie Schroeder (Required for Residents only) Agreeable to Follow? Yes Date/Time of Call 02/03/25 11:12 AM, Spoke with: Anaya Hoffman Same Day SOC?: No Primary Care Physician: Jamie Schroeder Primary Care Physician Primary Care Physician Address: [address] [place] [address] / [facility] [id number] Visit Instructions: N/A Service Discharge Location Type: Home with Home Care Service Facility Name: N/A Service Floor Facility: N/A Service Room No: N/A Demographics Patient Last Name: Mohsen Patient First Name: Anson Language/Communication Barrier: n/a Service Address: [address] [place] Service City: [facility] ST: [place] Service ZIP: [address] Service (home) Other phone numbers: No relevant phone numbers on file. Emergency Contact: Extended Emergency Contact Information Primary Emergency Contact: Ambreen Dai Mobile Relation: Daughter Secondary Emergency Contact: DiasGabriel Mobile Relation: Daughter Admission Information Admit Date: 01/31/2025 Patient status at discharge: Inpatient Admitting Diagnosis: Open knee wound, right, initial encounter [S81.001A] Caregiver Information Caregiver First Name: Ambreen Caregiver Last Name: Kirsty Caregiver Relationship to Patient dtr Caregiver Caregiver Notes: N/A [employer] List No END PATIENT REGISTRATION INFORMATION Pt Home Health goal rehab at home COVID Status 1. Do you have any upper respiratory symptoms (cough, SOB, Fever)? No 2. Have you been exposed to anyone with COVID-19 Virus? No Answer only if pending or positive for COVID-19? 1. Agreeable to wear PPE at each visit? No 2. Is the hospital supplying them with PPE upon Discharge? No Start PACC Summary General Report/ Additional Comments N/a Discharge Date: pending Referral Source-PACC: (Hospital/Unit): [facility] / / A End PACC Note Care Management Progress Note Short Medical why still here: Laceration to R knee cellulitis, Nephrology following for CKD stage 3, IV ATB Planned Discharge Disposition: Home Health Services Barriers/Today we still Wait: Clinical stability, Information Technology Specialist Administering IV medications Was informed in rounds that pt's does not have infected joint. Pt to have knee immobilizer. PT/OT recommending home with HHC. Tasked HHC to follow. horse stud manager to follow and assist as needed. Length of Stay (Days): 2 GMLOS: 2.6 Problem: Pain - Adult Goal: Verbalizes/displays adequate comfort level or baseline comfort level Outcome: Progressing Problem: Safety - Adult Goal: Free from fall injury Outcome: Progressing Problem: Discharge Planning Goal: Discharge to home or other facility with appropriate resources Outcome: Progressing Problem: Chronic Conditions and Co-morbidities Goal: Patient's chronic conditions and co-morbidity symptoms are monitored and maintained or improved Outcome: Progressing Problem: Pain - Adult Goal: Verbalizes/displays adequate comfort level or baseline comfort level Outcome: Progressing Problem: Safety - Adult Goal: Free from fall injury Outcome: Progressing Problem: Discharge Planning Goal: Discharge to home or other facility with appropriate resources Outcome: Progressing Problem: Chronic Conditions and Co-morbidities Goal: Patient's chronic conditions and co-morbidity symptoms are monitored and maintained or improved Outcome: Progressing S/W, [facility] Patient is active with [facility]. Casemanager is Ivelisse Franklin at [phone]. Patient has an ERS from [employer]. Patient has aides M,F for 3 hrs through [facility]. [facility] aware of admit. Care Management Progress Note Short Medical why still here: patient remains in CDU today for Mechanical Fall resulting in right knee wound/dehiscence. Infection work up pending. ALLAN, monitoring labs/lytes. Tx includes ATBX Cefazolin/Vanco and steroids. Pain control prn. Consult to wound prevention. Therapy to eval. Planned Discharge Disposition: (TBD) Barriers/Today we still Wait: Clinical stability, Information Technology Specialist recommendations wound prevention. IV ATBX. PT to eval. Length of Stay (Days): 0 GMLOS: No GMLOS Documented documented in this encounter [facility] 02-07-2025 Note Formatting of this n ote might be different from the original. Patient Choice Patient Name: ANSON CAPPS Date of : 1940 All Providers Sent Referral Name: Guille Darden [employer] Member Phone: [phone] Address: [address] [place] [address] Name: [facility] Phone: [phone] Address: [address] [place] [address] [facility] Phone: [phone] Address: [address] [id number] [facility] 02-07-2025 Note Formatting of this n ote might be different from the original. Patient Choice Patient Name: ANSON CAPPS Date of : 1940 All Providers Sent Referral Name: [facility] Member Phone: [phone] Address: [address] [place] [address] Name: [facility] Phone: [phone] Address: [address] [place] [address] Name: [facility] Phone: [phone] Address: [address] [id number] [facility] 02-07-2025 Note Formatting of this n ote might be different from the original. MAR & Discharge med list transmitted to [facility] via [facility] per TCC request. [facility] 02-07-2025 Note Formatting of this n ote might be different from the original. MAR & Discharge med list transmitted to [facility] via [facility] per TCC request. [facility] 02-07-2025 Note Formatting of this n ote might be different from the original. DC orders noted. Number to N2N given to RN. [employer] tasked to send DC packet and MAR to [facility]. Transport set up by for 4:30 pm pickup. [facility] 02-07-2025 Note Formatting of this n ote might be different from the original. DC orders noted. Number to N2N given to RN. [facility] tasked to send DC packet and MAR to [facility]. Transport set up by for 4:30 pm pickup. [facility] 02-07-2025 Plan of care note Problem: Pain - Adult Goal: Verbalizes/displays adequate comfort level or baseline comfort level Outcome: Completed Problem: Safety - Adult Goal: Free from fall injury Outcome: Completed Problem: Discharge Planning Goal: Discharge to home or other facility with appropriate resources Outcome: Completed Problem: Chronic Conditions and Co-morbidities Goal: Patient's chronic conditions and co-morbidity symptoms are monitored and maintained or improved Outcome: Completed Problem: Problem Interventions Goal: Promote nutritional intake Outcome: Completed Problem: Knowledge Deficit Goal: Patient/family/caregiver demonstrates understanding of disease process, treatment plan, medications, and discharge instructions Outcome: Completed Problem: Potential for Falls Goal: I will remain free of falls Outcome: Completed Problem: Discharge Barriers Goal: My discharge needs are met Outcome: Completed [facility] 02-07-2025 Note Formatting of this n ote might be different from the original. Care Management Progress Note Short Medical why still here: Placement This TCC called and spoke with Ambreen, pt's daughter to inform her of DC to [facility] today and that transport set up for 4:30 pm. Also informed their could be a potential copay with transportation set up. Ambreen verbalized understanding and states will inform her toher sisters Gabriel and Brigitte of pt's DC today to [facility]. Planned Discharge Disposition: Penitentiary/Residential Care Barriers/Today we still Wait: Facility pre-cert Length of Stay (Days): 0 GMLOS: 2.6 [facility] 02-07-2025 Note Formatting of this n ote might be different from the original. Care Management Progress Note Short Medical why still here: Placement This TCC called and spoke with Ambreen, pt's daughter to inform her of DC to [facility] today and that transport set up for 4:30 pm. Also informed their could be a potential copay with transportation set up. Ambreen verbalized understanding and states will inform her toher sisters Gabriel and Brigitte of pt's DC today to [facility]. Planned Discharge Disposition: Penitentiary/Residential Care Barriers/Today we still Wait: Facility pre-cert Length of Stay (Days): 0 GMLOS: 2.6 [facility] 02-07-2025 History of Present illness Narrative Images from the original note were not included. PHYSICAL THERAPY [facility] Treatment Note Name/MRN: Anson Capps ([id number]) Date of : 1940 Age: 84 y.o. Room/Bed: 232-04/232-04 A Visit #: 1 out of 5 visits Discharge Recommendation: Home with Home health PT Equipment Needed: No Prior Level of Function Prior Level of ADL Function: Independent Prior Level of Mobility: Independent; Device: None Prior Level of Transfers: Independent Assessment Pt continues to make fair overall progress towards established therapy goals this date. Remains limited by fatigue, weakness and pain in low back. Of note pt has self limiting tendencies which inhibit progress toward functional independence. Pt completed bed mobility at Mod I, STS transfers with rollator at A, Gait training with rollator completed at A. Pt unable to tolerate stairs this date d/t pain. Pt tolerated all activity fair and gave fair overall effort. Vitals noted WFL. Pt will continue to benefit from skilled therapy services during acute medical stay to improve upon presenting deficits prior to discharge home with HHC PT. Subjective Pt agreeable to PT session with mild encouragement. RN cleared pt for session. Vitals WFL Pain: 0-10 pain scale: 2-10/10 Location: low back Medical Precautions: No active isolations Proper PPE donned/doffed in accordance with facility standards. Fall Risk: Ceballos Fall Risk Score: 85 (Low Risk) Ceballos Fall Risk Score: 85 (High Risk) Precautions/Restrictions: N/A Overall Cognitive Status: WFL Overall Orientation Status: Oriented x4 Family/Caregiver Present: none Objective Bed Mobility Supine to sit: Modified Independent Sit to supine: Modified Independent Mod I with good overall safety and stability with mobility. No LOB. Minimal c/o pain with activity. Transfers/Mobility Sit to stand: SBA Stand to sit: SBA STS from EOB with rollator completed with SBAx1. Cues for device management, body mechanics and overall sequencing. No LOB noted. Good return of cues. Minimal pain with activity. Device(s) used: Rollator Ambulation Ambulation 1 Assistive device(s) used: Rollator Assist level: SBA Distance (ft): 35ft x1 Quality of gait: No LOB, antalgic, reciprocal stepping, narrow MUNIR, slow benoit SBA for all gait training noted with use of rollator walker. Cues for proper gait sequencing, activity pacing and overall device management. Pt receptive to all mobility cues but remains self limiting d/t onset of low back pain and pre-maturely ending gait training with return to bed. Plan Continue acute PT per plan of care. Safety/Education Safety Safety Devices in place: All fall risk precautions in place, call light within reach, left in bed, gait belt, patient at risk for falls, nurse notified, and no alarms engaged upon entry Restraints: N/A Education Education Given To: patient Education Provided: PT Role, PT Goals, Gait Training, Plan of Care, Transfer Training, Energy Conservation, IADL Safety, Equipment, Fall Prevention Education, Discharge Recommendations, and Benefits of Increasing Activity Education Method: Verbal, Demonstration, and Teach Back Barriers to Learning: None Education Outcome: Verbalized Understanding and Demonstrated Understanding Outcome Measures AM-PAC AM-PAC Inpatient Mobility Raw Score (No Stairs) : 15 JH-HLM JH-HLM Score: Walked 25 ft or more (i.e. walked outside of room) Goals Patient Stated Goal: to be able to go home soon Encounter Problems Encounter Problems (Active) Balance Patient will maintain dynamic standing balance for 10 minutes with modified independence in order to demonstrate decreased risk of falling. (Progressing) Start: 02/01/25 Expected End: 02/12/25 Exercise Patient will complete lower extremity exercises for 1-2 sets / 10-15 reps in order to improve strength and activity tolerance for mobility. (Not Addressed) Start: 02/01/25 Expected End: 02/12/25 Mobility Patient will ambulate 100 feet with modified independence and least restrictive device in order to improve safety and independence with mobility. (Progressing) Start: 02/01/25 Expected End: 02/12/25 Patient will ascend and descend 2-3 stairs with one railing and modified independence in order to safely negotiate home. (Not Addressed) Start: 02/01/25 Expected End: 02/12/25 Pain - Adult Transfers Patient will perform bed mobility with modified independence in order to improve independence and prepare for out of bed mobility. (Progressing) Start: 02/01/25 Expected End: 02/12/25 Patient will complete functional transfer with least restrictive device with modified independence in order to prepare for ambulation. (Progressing) Start: 02/01/25 Expected End: 02/12/25 Therapy Time Individual Co-treatment Time In 1032 Time Out 1041 Minutes 9 Timed Code Treatment Minutes: 9 Minutes (gait x1) Demetrio Rodriguez, PT Images from the original note were not included. OCCUPATIONAL THERAPY [facility] Name/MRN: Anson Capps ([id number]) Date: 02/07/2025 Pt chart reviewed, okay to see per RN. Pt declining therapy, states she got up earlier and just had a coughing fit. Unable to encourage, will reattempt as schedule permits ARIEL Quiles Cosigned by No Graham OT at 02/07/2025 2:16 PM EDT Images from the original note were not included. Hospitalist Progress Note 02/07/2025 [phone]: Please page me ([phone]) for patient care issues. [phone]: Please page [facility] night Hospitalist for any issues. Subjective: Admit Date: 01/31/2025 PCP: Jamie Schroeder Room#: 232-04/232-04 A Interval History: Patient is sitting on the bed, denies any chest pain shortness of breath or palpitations. Lower extremity pain improving. No other significant overnight issues. Adult diet Regular; No Concentrated sweets @[id number]@ 24HR INTAKE/OUTPUT: No intake or output data in the 24 hours ending 02/07/25 1351 Past Medical History: Medical History[1] LABS: CBC: Recent Labs 02/05/25 0230 02/06/25 0541 WBC 8.3 10.6 RBC 4.38 4.45 HGB 12.9 13.1 HCT 40.6 40.9 MCV 92.7 91.9 RDW 13.2 13.2 PLT 368 403 BMP: Recent Labs 02/05/25 0230 02/06/25 0541 NA 140 139 K 4.6 4.6 CL 109* 109* CO2 21* 19* BUN 49* 41* CREATININE 0.97 1.13* GLUCOSE 147* 134* CALCIUM 9.2 9.1 ANIONGAP 10 11 LIVER PROFILE:No results for input(s): AST, ALT, BILITOT, ALKPHOS, PROT in the last 72 hours. No lab exists for component: LABALBU PT/INR: No results for input(s): PROTIME, INR in the last 72 hours. CARDIAC ENZYMES: No results for input(s): TROPONINI in the last 72 hours. Procalcitonin: No results found for: PROCAL COVID-19 PCR: No results for input(s): COVID19 in the last 72 hours. Objective: Vitals: BP 153/66 (BP Location: Left arm, Patient Position: Lying) Pulse (!) 123 Temp 36.9 C (98.4 F) (Temporal) Resp 18 Ht 5' (1.524 m) Wt 126 lb (57.2 kg) SpO2 95% BMI 24.61 kg/m Pulse Ox: SpO2 Av.2 % Min: 93 % Max: 95 % Supplemental O2: General appearance: No apparent distress, appears stated age and cooperative with exam HEENT: Normal cephalic, atraumatic without obvious deformity. Pupils equal, round, and reactive to light. Extra ocular muscles intact. Conjunctivae/corneas clear. Neck: Supple, with full range of motion. No jugular venous distention. Trachea midline. No lymphadenopathy. Respiratory: Normal respiratory effort. Clear to auscultation, bilaterally without Rales/Wheezes/Rhonchi. Cardiovascular: Regular rate and rhythm with normal S1/S2 without murmurs, rubs or gallops. Abdomen: Soft, non-tender, non-distended with normal bowel sounds. No rebound or guarding. Musculoskeletal: Right knee dressing is in place. Skin: Neurologic: Neurovascularly intact without any focal sensory/motor deficits. Cranial nerves: II-XII intact, grossly non-focal. Medications: Continuous Meds[2] Scheduled Meds[3] Assessment Right knee wound status post fall. Hyperkalemia. DM with hyperglycemia History of: Hypertension Hyperlipidemia. Diabetes mellitus type 2. Coronary artery disease on Plavix. Gastroesophageal reflux disease Depression/anxiety. Septic shock secondary to urinary tract infection in 2022. Chronic kidney disease baseline creatinine 1.2. Plan: Right knee dressing is in place, continues to complain of knee pain. Discussed with ID stewardship-discontinued vancomycin on 02/07 Orthopedics evaluated the patient-ruled out joint infection Hyperkalemia resolved Home medications reviewed and resumed appropriately. Follow-up CBC BMP ordered PT OT evaluation. DVT prophylaxis: Lovenox subcu daily. Disposition: Finished antibiotic course. Pending placement. Medically stable for discharge. -am labs, replace lytes prn -increase activity -DVT prophylaxis: [] Lovenox [] Heparin [] SCDs [x] Encourage ambulation [] Already on Anticoagulation Advance Directive: Full Code Discharge planning: TBD Baldomero Gates MD Division of Hospitalist Medicine Inpatient Medical Services/[facility]: [phone] [1] Past Medical History: Diagnosis Date Asthma CAD (coronary artery disease) Depression Diabetes (HCC) GERD (gastroesophageal reflux disease) Hyperlipidemia Hypertension [2] [3] atorvastatin, 10 mg, Oral, Nightly cloNIDine, 0.2 mg, Oral, Nightly clopidogrel, 75 mg, Oral, Daily Diclofenac Sodium, 2 g, Topical, BID dilTIAZem CD, 120 mg, Oral, Daily DULoxetine, 30 mg, Oral, Daily enoxaparin, 40 mg, SubCUTAneous, Daily insulin lispro, 0-12 Units, SubCUTAneous, TID WC And insulin lispro, 0-12 Units, SubCUTAneous, Nightly ipratropium-albuterol, 3 mL, Nebulization, BID lisinopril, 5 mg, Oral, Daily mometasone-formoterol, 2 puff, Inhalation, BID pantoprazole, 40 mg, Oral, qAM AC senna-docusate sodium, 2 tablet, Oral, Daily sodium chloride, 4 mL, Nebulization, TID traZODone, 50 mg, Oral, Nightly Images from the original note were not included. Hospitalist Progress Note 02/06/2025 [phone]: Please page me ([phone]) for patient care issues. [phone]: Please page [facility] night Hospitalist for any issues. Subjective: Admit Date: 01/31/2025 PCP: Jamie Schroeder Room#: 232-04/232-04 A Interval History: Patient is lying on the bed, complaining of left knee pain, no swelling or redness noticed. Also complaining of unable to sleep last night. Denies any abdominal pain nausea or vomitings No other significant overnight issues. Adult diet Regular; No Concentrated sweets @[id number]@ 24HR INTAKE/OUTPUT: Intake/Output Summary (Last 24 hours) at 02/06/2025 1450 Last data filed at 02/05/2025 1700 Gross per 24 hour Intake 240 ml Output -- Net 240 ml Past Medical History: Medical History[1] LABS: CBC: Recent Labs 02/04/25 0048 02/05/25 0230 02/06/25 0541 WBC 8.5 8.3 10.6 RBC 4.36 4.38 4.45 HGB 13.1 12.9 13.1 HCT 40.9 40.6 40.9 MCV 93.8 92.7 91.9 RDW 13.2 13.2 13.2 PLT 400 368 403 BMP: Recent Labs 02/04/25 0048 02/05/25 0230 02/06/25 0541 NA 141 140 139 K 4.6 4.6 4.6 CL 109* 109* 109* CO2 22* 21* 19* BUN 49* 49* 41* CREATININE 1.13* 0.97 1.13* GLUCOSE 141* 147* 134* CALCIUM 9.2 9.2 9.1 ANIONGAP 10 10 11 LIVER PROFILE:No results for input(s): AST, ALT, BILITOT, ALKPHOS, PROT in the last 72 hours. No lab exists for component: LABALBU PT/INR: No results for input(s): PROTIME, INR in the last 72 hours. CARDIAC ENZYMES: No results for input(s): TROPONINI in the last 72 hours. Procalcitonin: No results found for: PROCAL COVID-19 PCR: No results for input(s): COVID19 in the last 72 hours. Objective: Vitals: BP (!) 168/77 Pulse 106 Temp 36.3 C (97.4 F) (Temporal) Resp 18 Ht 5' (1.524 m) Wt 126 lb (57.2 kg) SpO2 96% BMI 24.61 kg/m Pulse Ox: SpO2 Av.3 % Min: 95 % Max: 96 % Supplemental O2: General appearance: No apparent distress, appears stated age and cooperative with exam HEENT: Normal cephalic, atraumatic without obvious deformity. Pupils equal, round, and reactive to light. Extra ocular muscles intact. Conjunctivae/corneas clear. Neck: Supple, with full range of motion. No jugular venous distention. Trachea midline. No lymphadenopathy. Respiratory: Normal respiratory effort. Clear to auscultation, bilaterally without Rales/Wheezes/Rhonchi. Cardiovascular: Regular rate and rhythm with normal S1/S2 without murmurs, rubs or gallops. Abdomen: Soft, non-tender, non-distended with normal bowel sounds. No rebound or guarding. Musculoskeletal: Right knee dressing is in place. Skin: Neurologic: Neurovascularly intact without any focal sensory/motor deficits. Cranial nerves: II-XII intact, grossly non-focal. Medications: Continuous Meds[2] Scheduled Meds[3] Assessment Right knee wound status post fall. Hyperkalemia. DM with hyperglycemia History of: Hypertension Hyperlipidemia. Diabetes mellitus type 2. Coronary artery disease on Plavix. Gastroesophageal reflux disease Depression/anxiety. Septic shock secondary to urinary tract infection in 2022. Chronic kidney disease baseline creatinine 1.2. Plan: Right knee dressing is in place, continues to complain of knee pain. Discussed with ID stewardship changed antibiotics to vancomycin on 02/02. Orthopedics evaluated the patient-ruled out joint infection Wound cultures are growing gram-positive cocci-continue vancomycin Hyperkalemia resolved Home medications reviewed and resumed appropriately. Follow-up CBC BMP ordered PT OT evaluation. DVT prophylaxis: Lovenox subcu daily. Disposition: Pending transition to oral antibiotics -am labs, replace lytes prn -increase activity -DVT prophylaxis: [] Lovenox [] Heparin [] SCDs [x] Encourage ambulation [] Already on Anticoagulation Advance Directive: Full Code Discharge planning: TBD Baldomero Gates MD Division of Hospitalist Medicine Inpatient Medical Services/[facility] PAGER: [phone] [1] Past Medical History: Diagnosis Date Asthma CAD (coronary artery disease) Depression Diabetes (HCC) GERD (gastroesophageal reflux disease) Hyperlipidemia Hypertension [2] [3] atorvastatin, 10 mg, Oral, Nightly cloNIDine, 0.2 mg, Oral, Daily clopidogrel, 75 mg, Oral, Daily Diclofenac Sodium, 2 g, Topical, BID DULoxetine, 30 mg, Oral, Daily enoxaparin, 40 mg, SubCUTAneous, Daily insulin lispro, 0-12 Units, SubCUTAneous, TID WC And insulin lispro, 0-12 Units, SubCUTAneous, Nightly ipratropium-albuterol, 3 mL, Nebulization, TID lisinopril, 5 mg, Oral, Daily mometasone-formoterol, 2 puff, Inhalation, BID senna-docusate sodium, 2 tablet, Oral, Daily vancomycin, 750 mg, IntraVENous, q24h zolpidem, 2.5 mg, Oral, Nightly Images from the original note were not included. PHYSICAL THERAPY [facility] Name/MRN: Anson Capps ([id number]) Date: 02/06/2025 Chart review complete. RN cleared pt for session. Pt initially agreeable to therapy services but requested using restroom prior to session with RN assist. Upon return to pt room increased agitation and persistent refusal to participate in therapy noted d/t pain in low back, pain in BLEs and getting pneumonia. Educated and encouraged on benefits of participating in PT services to which they continued to adamantly decline. Will continue to follow and attempt as appropriate and as schedule permits. Demetrio Rodriguez PT Images from the original note were not included. OCCUPATIONAL THERAPY [facility] Treatment Note Name/MRN: Anson Capps ([id number]) Date of : 1940 Age: 84 y.o. Room/Bed: 232-04/232-04 A Visit #: 1 out of 3 Discharge Recommendation: Home with Home health OT Assessment Pt tolerated session fairly well, continues to improve with OT POC. Pt completed bed mobility with SBA and LE dressing with Max A. She performed STS transfers with Min A-CGA, standing balance with CGA, and functional mobility with CGA. She would continue to benefit from skilled OT services in order to increase safety and maximize IND in occupational performance. OT rec is Home with [facility] OT upon planned discharge. Subjective Pt supine in bed upon arrival, pleasant and agreeable. Per RN, pt okay to see. Pain: Malik-Coley Pain Ratin = Hurts little more Pain Location: R knee and LLE Medical Precautions: No active isolations Proper PPE donned/doffed in accordance with facility standards. Fall Risk: Ceballos Fall Risk Score: 85 (Low Risk) Ceballos Fall Risk Score: 85 (High Risk) Precautions/Restrictions: N/A Family/Caregiver Present: child(kiran) and granddaughter Objective ADLs LE Dressing: Max Assist Pt required Max A to don meli shoes d/t increased pain with functional reaching to BLEs. Bed Mobility Supine to sit: SBA Sit to supine: SBA HOB Elevated Use of bed rail(s) Pt completed bed mobility to/from supine to EOB with SBA, increased time to complete but no physical assist required. Denied dizziness with positional changes. Transfers/Mobility Sit to stand: Min Assist Stand to sit: Contact Guard Standing balance: Contact Guard Functional mobility: Contact Guard Pt performed STS to/from EOB to rollator with Min A for elevation and CGA for controlled descent, VC's for hand placement for push up from/reach back to seated surface. Slow to rise. Pt completed functional mobility within room/hallway with use of rollator with CGA, she was able to tolerate short functional household distance before endorsing increased pain in LLE and needing to return to EOB. Device(s) used: Rollator Cognition -WFL Plan Continue acute OT per plan of care. Safety/Education Safety Safety Devices in place: All fall risk precautions in place, call light within reach, left in bed, gait belt, patient at risk for falls, nurse notified, and no alarms engaged upon entry Restraints: No Education Education Given To: patient Education Provided: OT Role, Plan of Care, ADL Adaptive Strategies, Transfer Training, Energy Conservation, Fall Prevention Education, Discharge Recommendations, and Benefits of Increasing Activity Education Method: Verbal, Demonstration, and Teach Back Barriers to Learning: None Education Outcome: Verbalized Understanding, Demonstrated Understanding, and Continued Education Needed AM-PAC AM-PAC Inpatient Daily Activity Raw Score: 18 ADL Inpatient CMS G-Code Modifier: CK Goals Patient Stated Goal: to get stronger Encounter Problems Encounter Problems (Active) Balance Patient will maintain dynamic standing balance for 5 minutes with modified independence in order to demonstrate decreased risk of falling. (Progressing) Start: 02/02/25 Expected End: 02/05/25 Dressings Lower Extremities Patient will dress lower body MOD I (Slowly Progressing) Start: 02/02/25 Expected End: 02/05/25 Toileting Patient will complete toileting tasks at standard toilet with supervision. (Not Addressed) Start: 02/02/25 Expected End: 02/05/25 Transfers Patient will complete functional transfers and mobility with rolling walker with modified independence in order to prepare for ADL tasks. (Progressing) Start: 02/02/25 Expected End: 02/05/25 Therapy Time Individual Co-treatment Time In 0232 Time Out 0251 Minutes 19 Timed Code Treatment Minutes: 19 Minutes (1 THER ACT) ARIEL Porter/Faith Cosigned by Rojelio Rowley OT at 02/06/2025 7:14 AM EDT Images from the original note were not included. Hospitalist Progress Note 02/05/[id number]: Please page me ([phone]) for patient care issues. [phone]: Please page [facility] night Hospitalist for any issues. Subjective: Admit Date: 01/31/2025 PCP: Jamie Schroeder Room#: 232-04/[id number] A Interval History: Patient is sitting on the bed, knee pain is better, tolerating p.o. diet. Having good bowel movements. No other significant overnight issues. Adult diet Regular; No Concentrated sweets @[id number]@ 24HR INTAKE/OUTPUT: Intake/Output Summary (Last 24 hours) at 02/05/2025 1307 Last data filed at 02/05/2025 0955 Gross per 24 hour Intake 370 ml Output -- Net 370 ml Past Medical History: Medical History[1] LABS: CBC: Recent Labs 02/03/25 0002 02/04/25 0048 02/05/25 0230 WBC 8.5 8.5 8.3 RBC 4.27 4.36 4.38 HGB 12.5 13.1 12.9 HCT 41.1 40.9 40.6 MCV 96.3 93.8 92.7 RDW 13.5 13.2 13.2 PLT 363 400 368 BMP: Recent Labs 02/03/25 0002 02/04/25 0048 02/05/25 0230 NA 141 141 141 140 K 4.8 4.8 4.6 4.6 CL 110* 109* 109* 109* CO2 21* 22* 22* 21* BUN 48* 46* 49* 49* CREATININE 1.24* 1.22* 1.13* 0.97 GLUCOSE 216* 217* 141* 147* CALCIUM 8.5* 8.5* 9.2 9.2 ANIONGAP 10 10 10 10 LIVER PROFILE:No results for input(s): AST, ALT, BILITOT, ALKPHOS, PROT in the last 72 hours. No lab exists for component: LABALBU PT/INR: No results for input(s): PROTIME, INR in the last 72 hours. CARDIAC ENZYMES: No results for input(s): TROPONINI in the last 72 hours. Procalcitonin: No results found for: PROCAL COVID-19 PCR: No results for input(s): COVID19 in the last 72 hours. Objective: Vitals: BP 152/92 (BP Location: Right arm, Patient Position: Lying) Pulse 89 Temp 36.8 C (98.3 F) (Temporal) Resp 16 Ht 5' (1.524 m) Wt 126 lb (57.2 kg) SpO2 94% BMI 24.61 kg/m Pulse Ox: SpO2 Av.3 % Min: 93 % Max: 97 % Supplemental O2: General appearance: No apparent distress, appears stated age and cooperative with exam HEENT: Normal cephalic, atraumatic without obvious deformity. Pupils equal, round, and reactive to light. Extra ocular muscles intact. Conjunctivae/corneas clear. Neck: Supple, with full range of motion. No jugular venous distention. Trachea midline. No lymphadenopathy. Respiratory: Normal respiratory effort. Clear to auscultation, bilaterally without Rales/Wheezes/Rhonchi. Cardiovascular: Regular rate and rhythm with normal S1/S2 without murmurs, rubs or gallops. Abdomen: Soft, non-tender, non-distended with normal bowel sounds. No rebound or guarding. Musculoskeletal: Right knee dressing is in place. Skin: Neurologic: Neurovascularly intact without any focal sensory/motor deficits. Cranial nerves: II-XII intact, grossly non-focal. Medications: Continuous Meds[2] Scheduled Meds[3] Assessment Right knee wound status post fall. Hyperkalemia. History of: Hypertension Hyperlipidemia. Diabetes mellitus type 2. Coronary artery disease on Plavix. Gastroesophageal reflux disease Depression/anxiety. Septic shock secondary to urinary tract infection in 2022. Chronic kidney disease baseline creatinine 1.2. Plan: Right knee dressing is in place, continues to complain of knee pain. Discussed with ID stewardship changed antibiotics to vancomycin on 02/02. Orthopedics evaluated the patient-ruled out joint infection Wound cultures are growing gram-positive cocci-continue vancomycin Hyperkalemia resolved Home medications reviewed and resumed appropriately. Follow-up CBC BMP ordered PT OT evaluation. DVT prophylaxis: Lovenox subcu daily. Disposition: Pending transition to oral antibiotics -am labs, replace lytes prn -increase activity -DVT prophylaxis: [] Lovenox [] Heparin [] SCDs [x] Encourage ambulation [] Already on Anticoagulation Advance Directive: Full Code Discharge planning: TBD Baldomero Gates MD Division of Hospitalist Medicine Inpatient Medical Services/[facility] PAGER: [phone] [1] Past Medical History: Diagnosis Date Asthma CAD (coronary artery disease) Depression Diabetes (HCC) GERD (gastroesophageal reflux disease) Hyperlipidemia Hypertension [2] [3] atorvastatin, 10 mg, Oral, Nightly cloNIDine, 0.2 mg, Oral, Daily clopidogrel, 75 mg, Oral, Daily DULoxetine, 30 mg, Oral, Daily enoxaparin, 40 mg, SubCUTAneous, Daily insulin lispro, 0-12 Units, SubCUTAneous, TID WC And insulin lispro, 0-12 Units, SubCUTAneous, Nightly ipratropium-albuterol, 3 mL, Nebulization, TID lisinopril, 5 mg, Oral, Daily mometasone-formoterol, 2 puff, Inhalation, BID vancomycin, 750 mg, IntraVENous, q24h Images from the original note were not included. Hospitalist Progress Note 02/04/[id number]: Please page me ([phone]) for patient care issues. [phone]: Please page [facility] night Hospitalist for any issues. Subjective: Admit Date: 01/31/2025 PCP: Jamie Schroeder Room#: 232-04/232-04 A Interval History: Patient is sitting on the bed, knee pain is better, tolerating p.o. diet. Having good bowel movements. No other significant overnight issues. Adult diet Regular; No Concentrated sweets @[id number]@ 24HR INTAKE/OUTPUT: Intake/Output Summary (Last 24 hours) at 02/04/2025 194 Last data filed at 02/04/2025 0749 Gross per 24 hour Intake 775 ml Output 8 ml Net 767 ml Past Medical History: Medical History[1] LABS: CBC: Recent Labs 02/02/25 0050 02/03/25 0002 02/04/25 0048 WBC 10.1 8.5 8.5 RBC 3.98 4.27 4.36 HGB 11.8 12.5 13.1 HCT 37.5 41.1 40.9 MCV 94.2 96.3 93.8 RDW 13.5 13.5 13.2 PLT 385 363 400 BMP: Recent Labs 02/02/25 0050 02/03/25 0002 02/04/25 0048 NA 143 141 141 141 K 4.6 4.8 4.8 4.6 CL 111* 110* 109* 109* CO2 21* 21* 22* 22* BUN 48* 48* 46* 49* CREATININE 1.24* 1.24* 1.22* 1.13* GLUCOSE 44* 216* 217* 141* CALCIUM 9.0 8.5* 8.5* 9.2 ANIONGAP 11 10 10 10 LIVER PROFILE:No results for input(s): AST, ALT, BILITOT, ALKPHOS, PROT in the last 72 hours. No lab exists for component: LABALBU PT/INR: No results for input(s): PROTIME, INR in the last 72 hours. CARDIAC ENZYMES: No results for input(s): TROPONINI in the last 72 hours. Procalcitonin: No results found for: PROCAL COVID-19 PCR: No results for input(s): COVID19 in the last 72 hours. Objective: Vitals: BP (!) 162/64 Pulse (!) 121 Temp 36.3 C (97.4 F) (Temporal) Resp 16 Ht 5' (1.524 m) Wt 126 lb (57.2 kg) SpO2 95% BMI 24.61 kg/m Pulse Ox: SpO2 Av % Min: 94 % Max: 100 % Supplemental O2: General appearance: No apparent distress, appears stated age and cooperative with exam HEENT: Normal cephalic, atraumatic without obvious deformity. Pupils equal, round, and reactive to light. Extra ocular muscles intact. Conjunctivae/corneas clear. Neck: Supple, with full range of motion. No jugular venous distention. Trachea midline. No lymphadenopathy. Respiratory: Normal respiratory effort. Clear to auscultation, bilaterally without Rales/Wheezes/Rhonchi. Cardiovascular: Regular rate and rhythm with normal S1/S2 without murmurs, rubs or gallops. Abdomen: Soft, non-tender, non-distended with normal bowel sounds. No rebound or guarding. Musculoskeletal: Right knee dressing is in place. Skin: Neurologic: Neurovascularly intact without any focal sensory/motor deficits. Cranial nerves: II-XII intact, grossly non-focal. Medications: Continuous Meds[2] Scheduled Meds[3] Assessment Right knee wound status post fall. Hyperkalemia. History of: Hypertension Hyperlipidemia. Diabetes mellitus type 2. Coronary artery disease on Plavix. Gastroesophageal reflux disease Depression/anxiety. Septic shock secondary to urinary tract infection in 2022. Chronic kidney disease baseline creatinine 1.2. Plan: Right knee dressing is in place, continues to complain of knee pain. Discussed with ID stewardship changed antibiotics to vancomycin on 02/02. Orthopedics evaluated the patient-ruled out joint infection Wound cultures are growing gram-positive cocci-continue vancomycin Hyperkalemia resolved Home medications reviewed and resumed appropriately. Follow-up CBC BMP ordered PT OT evaluation. DVT prophylaxis: Lovenox subcu daily. Disposition: Still on IV antibiotics Possible discharge on Friday-pending placement -am labs, replace lytes prn -increase activity -DVT prophylaxis: [] Lovenox [] Heparin [] SCDs [x] Encourage ambulation [] Already on Anticoagulation Advance Directive: Full Code Discharge planning: TBD Baldomero Gates MD Division of Hospitalist Medicine Inpatient Medical Services/[facility] PAGER: [phone] [1] Past Medical History: Diagnosis Date Asthma CAD (coronary artery disease) Depression Diabetes (HCC) GERD (gastroesophageal reflux disease) Hyperlipidemia Hypertension [2] [3] atorvastatin, 10 mg, Oral, Nightly cloNIDine, 0.2 mg, Oral, Daily clopidogrel, 75 mg, Oral, Daily DULoxetine, 30 mg, Oral, Daily enoxaparin, 40 mg, SubCUTAneous, Daily insulin lispro, 0-12 Units, SubCUTAneous, TID WC And insulin lispro, 0-12 Units, SubCUTAneous, Nightly ipratropium-albuterol, 3 mL, Nebulization, TID lisinopril, 5 mg, Oral, Daily mometasone-formoterol, 2 puff, Inhalation, BID vancomycin, 750 mg, IntraVENous, q24h Images from the original note were not included. OCCUPATIONAL THERAPY [facility] Name/MRN: Anson Capps ([id number]) Date: 02/04/2025 Pt chart reviewed, okay to see per RN. Pt adamantly declined therapy despite max encouragement. Unable to encourage ARIEL Quiles Cosigned by Rojelio Rowley OT at 02/04/2025 3:38 PM EDT Images from the original note were not included. Nephrology Progress Note Patient: Anson Capps Room number: [id number] A Date of Admit: 01/31/2025 LOS: 0 days Admitting physician: Baldomero Gates MD Referring physician: Baldomero Gates MD Assessment/Plan: 1. CKD stage III- baseline Scr 1.1-1.3 mg/dL. Follow up with [place] [facility] as an outpatient. 2. Hyperkalemia - resolved. Continue ACEi. CPK normal. 3. R knee cellulitis after laceration - on abx. 4. DM type II -not a good candidate for SGLT2 therapy given her Apr 2023 admit for pylenephritis/sepsis. 5. PAD with muscle atrophy L leg. 6. HTN - can titrate clonidine or lisinopril. Continued avoidance of nephrotoxins. No objections to discharge from renal standpoint. Will sign off. Follow up with Dr. Montiel post discharge. HPI: Anson Capps is a 84 y.o. female with chronic stable problems: CKD stage III, DM type II, COPD, HTN, depression, PAD with L leg revascularization, Initial admit diagnosis: Open knee wound, right, initial encounter [S81.001A] Interval history/events: no acute events overnight. Frustrated that she can't go to [facility]. BP slightly elevated this morning. Past Medical History: Medical History[1] Medications: MARS reviewed. Scheduled Meds[2] Review of Systems: All other ROS negative except those noted above. Physical Exam: Vitals: 02/03/25 2017 02/03/25 2029 02/04/25 0810 02/04/25 0825 BP: 155/80 (!) 162/64 BP Location: Left arm Patient Position: Lying Pulse: 99 107 (!) 121 Resp: 19 18 16 Temp: 36.9 C (98.4 F) 36.3 C (97.4 F) TempSrc: Temporal Temporal SpO2: 95% 100% 94% 95% Weight: Height: Admission weight: 56.7 kg (125 lb) Wt Readings from Last 3 Encounters: 02/03/25 57.2 kg (126 lb) 01/24/25 56.7 kg (125 lb) 01/23/25 56.7 kg (125 lb) General Appearance no acute distress, comfortable appearing, looks stated age. Alert and oriented x 3 HEENT Neck anicteric sclera, moist mucus membranes, normal external ears/nares, no facial edema, supple neck, midline trachea without tracheal deviation Chest symmetric, normal shape/expansion Heart RRR, no audible pericardial rubs Lungs clear to auscultation bilaterally, unlabored respirations without conversational dyspnea, no accessory muscle use, room air Abdomen Skin soft without distension, no palpable organomegaly, normal bowel sounds, no rebound or guarding no rash or subcutaneous nodules, warm and dry skin with good turgor Musculoskeletal No leg edema, R knee immobilizer no salazar catheter present Neurologic no resting tremor. Able to follow commands. Psychiatric mood and affect animated, insight and judgment intact. Memory recall intact LABS: Recent Labs 02/02/25 0050 02/03/25 0002 02/04/25 0048 WBC 10.1 8.5 8.5 HGB 11.8 12.5 13.1 HCT 37.5 41.1 40.9 MCV 94.2 96.3 93.8 PLT 385 363 400 Recent Labs 02/02/25 0050 02/03/25 0002 02/04/25 0048 NA 143 141 141 141 K 4.6 4.8 4.8 4.6 CL 111* 110* 109* 109* CO2 21* 21* 22* 22* BUN 48* 48* 46* 49* CREATININE 1.24* 1.24* 1.22* 1.13* GLUCOSE 44* 216* 217* 141* CALCIUM 9.0 8.5* 8.5* 9.2 PHOS -- 2.3 -- ANIONGAP 11 10 10 10 Lab Results Component Value Date CALCIUM 9.2 02/04/2025 PHOS 2.3 02/03/2025 Diagnostic Studies: CXR: reviewed in PACS. Personally reviewed available data [labs, MARS, radiologic studies, and electronic records]. Please call with any questions. Pager: [phone] Office: [phone]. [1] Past Medical History: Diagnosis Date Asthma CAD (coronary artery disease) Depression Diabetes (HCC) GERD (gastroesophageal reflux disease) Hyperlipidemia Hypertension [2] atorvastatin, 10 mg, Oral, Nightly cloNIDine, 0.2 mg, Oral, Daily clopidogrel, 75 mg, Oral, Daily DULoxetine, 30 mg, Oral, Daily enoxaparin, 40 mg, SubCUTAneous, Daily insulin lispro, 0-12 Units, SubCUTAneous, TID WC And insulin lispro, 0-12 Units, SubCUTAneous, Nightly ipratropium-albuterol, 3 mL, Nebulization, TID lisinopril, 5 mg, Oral, Daily mometasone-formoterol, 2 puff, Inhalation, BID vancomycin, 750 mg, IntraVENous, q24h Images from the original note were not included. PHYSICAL THERAPY [facility] Name/MRN: Anosn Capps ([id number]) Date: 02/04/2025 Introduced self and role, pt adamantly decline therapy, will re attempt as schedule permits Ricardo Garza PT Pharmacy to Dose Vancomycin - Progress Note Recent Labs 02/02/25 0050 02/03/25 0002 02/04/25 0048 BUN 48* 48* 46* 49* CREATININE 1.24* 1.24* 1.22* 1.13* Lab Results Component Value Date VANCORANDOM 10.8 (L) 05/12/2023 LILIYA 11.8 02/04/2025 Doses, serum creatinine, and vancomycin levels interfaced automatically to [email or web address] and data has been analyzed and interpreted. Infectious Diagnosis: ssti Est CrCl: 30.4 mL/min (Cockcroft-Gault) Assessment: Current regimen vancomycin 750 mg every 24 hours. Predicted AUC = 468 mg/L*hr (goal 400-600 mg/L*hr) Plan: Is the current dose therapeutic? [x] Yes - obtain next level on 02/11/25 unless predicted AUC is sub-/supra-therapeutic or change in serum creatinine. [] No - Trend serum creatinine. Trend AUC using Bayesian Modeling. Orders placed. DATE: 02/04/25 TIME: 6:38 AM Maddi Najera PharmD Clinical Pharmacist Available via Secure Chat Images from the original note were not included. Nephrology Progress Note Patient: Anson Capps Room number: [id number] A Date of Admit: 01/31/2025 LOS: 0 days Admitting physician: Baldomero Gates MD Referring physician: Baldomero Gates MD Assessment/Plan: 1. CKD stage III- baseline Scr 1.1-1.3 mg/dL. Follow up with [place] [facility] as an outpatient. 2. Hyperkalemia - mild and apears resolved. Continue ACEi. CPK normal. 3. R knee cellulitis after laceration - on abx. 4. DM type II -not a good candidate for SGLT2 therapy given her Apr 2023 admit for pylenephritis/sepsis. 5. PAD with muscle atrophy L leg. Continued avoidance of nephrotoxins. Medication dose adjustment: CrCl < 50 ml/min Will follow along as directed. No objections to discharge from renal standpoint. HPI: Anson Capps is a 84 y.o. female with chronic stable problems: CKD stage III, DM type II, COPD, HTN, depression, PAD with L leg revascularization, Initial admit diagnosis: Open knee wound, right, initial encounter [S81.001A] Interval history/events: feeling well. Notes some redness along R arm after Vancomycin infusion that improved with slowing down rate/Benadryl. IVF stopped. Tolerating diet. Daughter at bedside. Past Medical History: Medical History[1] Medications: MARS reviewed. Scheduled Meds[2] Review of Systems: All other ROS negative except those noted above. Physical Exam: Vitals: 02/03/25 0716 02/03/25 0844 02/03/25 1140 02/03/25 1320 BP: 132/89 BP Location: Left arm Patient Position: Lying Pulse: 103 102 110 Resp: 16 16 16 Temp: 36.7 C (98.1 F) TempSrc: Temporal SpO2: 96% 96% 95% Weight: 57.2 kg (126 lb) Height: Admission weight: 56.7 kg (125 lb) Wt Readings from Last 3 Encounters: 02/03/25 57.2 kg (126 lb) 01/24/25 56.7 kg (125 lb) 01/23/25 56.7 kg (125 lb) General Appearance no acute distress, comfortable appearing, looks stated age. Alert and oriented x 3 HEENT Neck anicteric sclera, moist mucus membranes, normal external ears/nares, no facial edema supple neck, midline trachea without tracheal deviation Chest symmetric, normal shape/expansion, no chest wall/sternal tenderness Heart RRR, no audible pericardial rubs Lungs clear to auscultation bilaterally, unlabored respirations without conversational dyspnea, no accessory muscle use Abdomen Skin soft without distension, no palpable organomegaly, normal bowel sounds, no rebound or guarding no rash or subcutaneous nodules, warm and dry skin with good turgor Musculoskeletal no synovitis or joint effusions noted, R knee immobilizer/dressing no salazar catheter present Neurologic no resting tremor. Able to follow commands. Psychiatric mood and affect animated, insight and judgment intact. Memory recall intact LABS: Recent Labs 02/02/25 0050 02/03/25 0002 WBC 10.1 8.5 HGB 11.8 12.5 HCT 37.5 41.1 MCV 94.2 96.3 PLT 385 363 Recent Labs 02/01/25 1512 02/02/25 0050 02/03/25 0002 NA -- 143 141 141 K 5.3* 4.6 4.8 4.8 CL -- 111* 110* 109* CO2 -- 21* 21* 22* BUN -- 48* 48* 46* CREATININE -- 1.24* 1.24* 1.22* GLUCOSE -- 44* 216* 217* CALCIUM -- 9.0 8.5* 8.5* PHOS -- -- 2.3 ANIONGAP -- 11 10 10 Lab Results Component Value Date CALCIUM 8.5 (L) 02/03/2025 CALCIUM 8.5 (L) 02/03/2025 PHOS 2.3 02/03/2025 Diagnostic Studies: CXR: reviewed in PACS. Personally reviewed available data [labs, MARS, radiologic studies, and electronic records]. Please call with any questions. Pager: [phone] Office: [phone]. [1] Past Medical History: Diagnosis Date Asthma CAD (coronary artery disease) Depression Diabetes (HCC) GERD (gastroesophageal reflux disease) Hyperlipidemia Hypertension [2] atorvastatin, 10 mg, Oral, Nightly cloNIDine, 0.2 mg, Oral, Daily clopidogrel, 75 mg, Oral, Daily DULoxetine, 30 mg, Oral, Daily enoxaparin, 40 mg, SubCUTAneous, Daily insulin lispro, 0-12 Units, SubCUTAneous, TID WC And insulin lispro, 0-12 Units, SubCUTAneous, Nightly ipratropium-albuterol, 3 mL, Nebulization, TID lisinopril, 5 mg, Oral, Daily mometasone-formoterol, 2 puff, Inhalation, BID vancomycin, 750 mg, IntraVENous, q24h Images from the original note were not included. Hospitalist Progress Note 02/03/[id number]: Please page me ([phone]) for patient care issues. [phone]: Please page [facility] night Hospitalist for any issues. Subjective: Admit Date: 01/31/2025 PCP: Jamie Schroeder Room#: 232-04/232-04 A Interval History: Patient is sitting on the bed, knee pain is better, tolerating p.o. diet. Having good bowel movements. No other significant overnight issues. Adult diet Regular; No Concentrated sweets @[id number]@ 24HR INTAKE/OUTPUT: Intake/Output Summary (Last 24 hours) at 02/03/2025 1419 Last data filed at 02/03/2025 1337 Gross per 24 hour Intake 2110.01 ml Output -- Net 2110.01 ml Past Medical History: Medical History[1] LABS: CBC: Recent Labs 01/31/25 1721 02/02/25 0050 02/03/25 0002 WBC 9.5 10.1 8.5 RBC 4.26 3.98 4.27 HGB 12.7 11.8 12.5 HCT 39.2 37.5 41.1 MCV 92.0 94.2 96.3 RDW 13.5 13.5 13.5 PLT 417 385 363 BMP: Recent Labs 01/31/25 17202/01/25 1512 02/02/25 0050 02/03/25 0002 NA 137 -- 143 141 141 K 5.2* 5.3* 4.6 4.8 4.8 CL 102 -- 111* 110* 109* CO2 21* -- 21* 21* 22* BUN 63* -- 48* 48* 46* CREATININE 1.13* -- 1.24* 1.24* 1.22* GLUCOSE 112 -- 44* 216* 217* CALCIUM 9.8 -- 9.0 8.5* 8.5* ANIONGAP 14* -- 11 10 10 LIVER PROFILE:No results for input(s): AST, ALT, BILITOT, ALKPHOS, PROT in the last 72 hours. No lab exists for component: LABALBU PT/INR: No results for input(s): PROTIME, INR in the last 72 hours. CARDIAC ENZYMES: No results for input(s): TROPONINI in the last 72 hours. Procalcitonin: Lab Results Component Value Date PROCAL 0.05 01/31/2025 COVID-19 PCR: No results for input(s): COVID19 in the last 72 hours. Objective: Vitals: BP 132/89 (BP Location: Left arm, Patient Position: Lying) Pulse 110 Temp 36.7 C (98.1 F) (Temporal) Resp 16 Ht 5' (1.524 m) Wt 126 lb (57.2 kg) SpO2 95% BMI 24.61 kg/m Pulse Ox: SpO2 Av.4 % Min: 94 % Max: 96 % Supplemental O2: General appearance: No apparent distress, appears stated age and cooperative with exam HEENT: Normal cephalic, atraumatic without obvious deformity. Pupils equal, round, and reactive to light. Extra ocular muscles intact. Conjunctivae/corneas clear. Neck: Supple, with full range of motion. No jugular venous distention. Trachea midline. No lymphadenopathy. Respiratory: Normal respiratory effort. Clear to auscultation, bilaterally without Rales/Wheezes/Rhonchi. Cardiovascular: Regular rate and rhythm with normal S1/S2 without murmurs, rubs or gallops. Abdomen: Soft, non-tender, non-distended with normal bowel sounds. No rebound or guarding. Musculoskeletal: Right knee dressing is in place. Skin: Neurologic: Neurovascularly intact without any focal sensory/motor deficits. Cranial nerves: II-XII intact, grossly non-focal. Medications: Continuous Meds[2] Scheduled Meds[3] Assessment Right knee wound status post fall. Hyperkalemia. History of: Hypertension Hyperlipidemia. Diabetes mellitus type 2. Coronary artery disease on Plavix. Gastroesophageal reflux disease Depression/anxiety. Septic shock secondary to urinary tract infection in 2022. Chronic kidney disease baseline creatinine 1.2. Plan: Right knee dressing is in place, continues to complain of knee pain. Discussed with ID stewardship changed antibiotics to vancomycin on 02/02. Orthopedics evaluated the patient-ruled out joint infection Wound cultures are pending Hyperkalemia resolved Home medications reviewed and resumed appropriately. Follow-up CBC BMP ordered PT OT evaluation. DVT prophylaxis: Lovenox subcu daily. Disposition: Still on IV antibiotics Pending orthopedics consult. Possible discharge in next 1 to 2 days. -am labs, replace lytes prn -increase activity -DVT prophylaxis: [] Lovenox [] Heparin [] SCDs [x] Encourage ambulation [] Already on Anticoagulation Advance Directive: Full Code Discharge planning: SHARAD Gates MD Division of Hospitalist Medicine Inpatient Medical Services/[facility] PAGER: [phone] [1] Past Medical History: Diagnosis Date Asthma CAD (coronary artery disease) Depression Diabetes (HCC) GERD (gastroesophageal reflux disease) Hyperlipidemia Hypertension [2] sodium chloride, 50 mL/hr, Last Rate: 50 mL/hr (02/03/25 1337) [3] atorvastatin, 10 mg, Oral, Nightly ceFAZolin, 1,000 mg, IntraVENous, q8h cloNIDine, 0.2 mg, Oral, Daily clopidogrel, 75 mg, Oral, Daily DULoxetine, 30 mg, Oral, Daily enoxaparin, 40 mg, SubCUTAneous, Daily insulin lispro, 0-12 Units, SubCUTAneous, TID WC And insulin lispro, 0-12 Units, SubCUTAneous, Nightly ipratropium-albuterol, 3 mL, Nebulization, TID lisinopril, 5 mg, Oral, Daily Nutrition Assessment Type and Reason for Visit: Initial, Wound (DT referral 02/02) Nutrition Recommendations/Plan: Continue current diet: regular, no concentrated sweets. Will monitor need for additional CHO restriction based on glucose levels. Per MNT protocol, will initiate Ensure Max once daily at lunch per pt preference. 11 oz provides 150 kcals, 30 g protein. Monitor weight, labs, skin assessment, po intake, GI sx, fluid status/edema, and overall nutritional status. RD will continue to follow. Malnutrition Assessment: Malnutrition Status: At risk for malnutrition (Comment) (increased needs due to R knee wound) Context: Acute Illness Findings of the 6 clinical characteristics of malnutrition: Energy Intake: No significant decrease in energy intake Weight Loss: No significant weight loss Body Fat Loss: No significant body fat loss Muscle Mass Loss: Moderate muscle mass loss Calf (gastrocnemius) (L side only, R knee with large wound dressing and brace) Fluid Accumulation: No significant fluid accumulation Launching Pad Mechanic Strength: Not Performed Nutrition Assessment: Pt is an 84 y.o. female with PMHx GERD, HTN, CAD, HLD, T2DM, CKD who presented to the emergency department 01/31 with chief complaint of right knee wound check. She had a mechanical fall onto carpet and sustained a large laceration to the right knee. Pt states she had sutures placed to her right knee at this ED approx 1 week ago. Pt felt that it was improving but now has gotten more red painful and had a little bit of yellowish drainage from the medial aspect of the wound. Wound care and ortho following. Per neph, pt initially hyperkalemic on admit, now resolved. Current diet is regular, no concentrated sweets. Visited with pt this AM. She reported very good appetite and eating well. She had the western scramble, milk, and yogurt for breakfast this AM. At home she reports eating a small breakfast and lunch then having a larger meal for dinner. She said she tries to eat a lot of protein and also likes fruits and vegetables. She also consumes Premier protein drinks 1-2 times/day. She was agreeable to receving Ensure Max while admitted. Denied GI sx, denied chewing/swallowing difficulty. She reported her UBW as 125-130# and said she felt she was around this weight before her fall occurred. Standing scale weight of 126# obtained today by RN. NFPE performed, noted moderate muscle wasting in L calf, knee. Estimated Daily Nutrient Needs: Energy Requirements Based On: Kcal/kg Weight Used for Energy Requirements: [place] Weight for Energy Calculation (kg): 45 kg Total Energy Requirements (kcals/day): 7559-0412 (28-30) Weight Used for Protein Requirements: [place] Weight in Kg Used for Protein Requirements: 45 kg Estimated Total Protein (g/day): 50-59 (1.1-1.3) (monitor renal function) Estimated Daily Total Fluid (ml/day): per MD Nutrition Related Findings: Samm 20, GI WDL per flowsheet, last BM 02/02. Wound Type: (laceration to R knee with sutures) Labs and meds reviewed: Scheduled Meds[1] Continuous Meds[2] Lab Results Component Value Date GLUCOSE 217 (H) 02/03/2025 GLUCOSE 216 (H) 02/03/2025 CALCIUM 8.5 (L) 02/03/2025 CALCIUM 8.5 (L) 02/03/2025 NA 141 02/03/2025 NA 141 02/03/2025 K 4.8 02/03/2025 K 4.8 02/03/2025 CO2 22 (L) 02/03/2025 CO2 21 (L) 02/03/2025 CL 109 (H) 02/03/2025 CL 110 (H) 02/03/2025 BUN 46 (H) 02/03/2025 BUN 48 (H) 02/03/2025 CREATININE 1.22 (H) 02/03/2025 CREATININE 1.24 (H) 02/03/2025 Lab Results Component Value Date WBC 8.5 02/03/2025 HGB 12.5 02/03/2025 HCT 41.1 02/03/2025 MCV 96.3 02/03/2025 PLT 363 02/03/2025 Lab Results Component Value Date ALT 27 05/18/2023 AST 52 (H) 05/18/2023 ALKPHOS 67 05/18/2023 BILITOT 0.4 05/18/2023 Recent Labs 02/02/25 0806 02/02/25 1309 02/02/25 1755 02/02/25201702/03/25 0608 02/03/25 1158 POCGLU 136* 151* 118* 141* 123* 178* No results found for: HGBA1C No results found for: VITD25 No results found for: CHOL, LDL, HDL, TRIG Current Nutrition Therapies: Adult diet Regular; No Concentrated sweets Current Oral Intake Average Meal Intake: 76-100% (x 1 per flowsheet. Pt reports eating well, good appetite.) Average Supplements Intake: None Ordered Anthropometric Measures: Height: 152.4 cm (5') Current Body Weight: 57.2 kg (126 lb) (02/03/25) Weight Source: Standing Scale Admission Body Weight: 56.7 kg (125 lb) (stated 01/31/25) Usual Body Weight: 60.3 kg (133 lb) (125-130# per pt. Per chart review: 130# 1/3, 132# 1, 124# 08/13, 120# 08/23, 133# 09/03.) % Weight Change (Calculated): -5.3 [place] Body Weight (lbs) (Calculated): 100 lbs [place] Body Weight (Kg) (Calculated): 45 kg BMI (kg/m2) (Calculated): 24.6 Weight Adjustment For: No Adjustment BMI Categories: Normal Weight (BMI 22.0 to 24.9) age over 65 Nutrition Diagnosis: Increased nutrient needs related to increase demand for energy/nutrients as evidenced by wounds Nutrition Interventions: Nutrition Education/Counseling: No recommendation at this time Coordination of Nutrition Care: Continue to monitor while inpatient Plan of Care discussed with: patient Goals: Goals: Meet at least 75% of estimated needs, by next RD assessment Nutrition Monitoring and Evaluation: Behavioral-Environmental Outcomes: None Identified Food/Nutrient Intake Outcomes: Food and Nutrient Intake, Supplement Intake Physical Signs/Symptoms Outcomes: Biochemical Data, GI Status, Fluid Status or Edema, Nutrition Focused Physical Findings, Skin, Weight Discharge Planning: Too soon to determine Stacie Ames Contact: *[phone] I have personally reviewed the: history, labs, medications, and pertinent electronic medical record information on 02/03/25 . I agree with the assessment and/or re-assessment as completed by the events intern and have made necessary changes to the care plan, documentation, and malnutrition diagnosis per my clinical judgement. Carmela Vines RDN, LDN [1] atorvastatin, 10 mg, Oral, Nightly ceFAZolin, 1,000 mg, IntraVENous, q8h cloNIDine, 0.2 mg, Oral, Daily clopidogrel, 75 mg, Oral, Daily DULoxetine, 30 mg, Oral, Daily enoxaparin, 40 mg, SubCUTAneous, Daily insulin lispro, 0-12 Units, SubCUTAneous, TID WC And insulin lispro, 0-12 Units, SubCUTAneous, Nightly ipratropium-albuterol, 3 mL, Nebulization, TID lisinopril, 5 mg, Oral, Daily [2] sodium chloride, 50 mL/hr, Last Rate: 50 mL/hr (02/03/25 1101) Images from the original note were not included. Hospitalist Progress Note 02/02/[id number]: Please page me ([phone]) for patient care issues. [phone]: Please page [facility] night Hospitalist for any issues. Subjective: Admit Date: 01/31/2025 PCP: Jamie Schroeder Room#: CDU-04/CDU-04 A Interval History: Patient is lying on the bed, complaining of right knee pain. Denies any chest pain shortness of breath or palpitations No other significant overnight issues. No diet orders on file @[id number]@ 24HR INTAKE/OUTPUT: Intake/Output Summary (Last 24 hours) at 02/02/2025 1439 Last data filed at 02/02/2025 1313 Gross per 24 hour Intake 1474.17 ml Output 350 ml Net 1124.17 ml Past Medical History: Medical History[1] LABS: CBC: Recent Labs 01/31/25 1721 02/02/25 0050 WBC 9.5 10.1 RBC 4.26 3.98 HGB 12.7 11.8 HCT 39.2 37.5 MCV 92.0 94.2 RDW 13.5 13.5 PLT 417 385 BMP: Recent Labs 01/31/25 1721 02/01/25 1512 02/02/25 0050 NA 137 -- 143 K 5.2* 5.3* 4.6 CL 102 -- 111* CO2 21* -- 21* BUN 63* -- 48* CREATININE 1.13* -- 1.24* GLUCOSE 112 -- 44* CALCIUM 9.8 -- 9.0 ANIONGAP 14* -- 11 LIVER PROFILE:No results for input(s): AST, ALT, BILITOT, ALKPHOS, PROT in the last 72 hours. No lab exists for component: LABALBU PT/INR: No results for input(s): PROTIME, INR in the last 72 hours. CARDIAC ENZYMES: No results for input(s): TROPONINI in the last 72 hours. Procalcitonin: Lab Results Component Value Date PROCAL 0.05 01/31/2025 COVID-19 PCR: No results for input(s): COVID19 in the last 72 hours. Objective: Vitals: BP (!) 176/89 (BP Location: Right arm, Patient Position: Lying) Pulse 100 Temp 36.7 C (98.1 F) (Temporal) Resp 18 Ht 5' (1.524 m) Wt 125 lb (56.7 kg) SpO2 92% BMI 24.41 kg/m Pulse Ox: SpO2 Av.3 % Min: 92 % Max: 94 % Supplemental O2: General appearance: No apparent distress, appears stated age and cooperative with exam HEENT: Normal cephalic, atraumatic without obvious deformity. Pupils equal, round, and reactive to light. Extra ocular muscles intact. Conjunctivae/corneas clear. Neck: Supple, with full range of motion. No jugular venous distention. Trachea midline. No lymphadenopathy. Respiratory: Normal respiratory effort. Clear to auscultation, bilaterally without Rales/Wheezes/Rhonchi. Cardiovascular: Regular rate and rhythm with normal S1/S2 without murmurs, rubs or gallops. Abdomen: Soft, non-tender, non-distended with normal bowel sounds. No rebound or guarding. Musculoskeletal: Right knee dressing is in place. Skin: Neurologic: Neurovascularly intact without any focal sensory/motor deficits. Cranial nerves: II-XII intact, grossly non-focal. Medications: Continuous Meds[2] Scheduled Meds[3] Assessment Right knee wound status post fall. Hyperkalemia. History of: Hypertension Hyperlipidemia. Diabetes mellitus type 2. Coronary artery disease on Plavix. Gastroesophageal reflux disease Depression/anxiety. Septic shock secondary to urinary tract infection in 2022. Chronic kidney disease baseline creatinine 1.2. Plan: Right knee dressing is in place, continues to complain of knee pain. Discussed with ID stewardship changed antibiotics to vancomycin on 02/02. Orthopedics consulted to rule out joint infection. Hyperkalemia resolved Home medications reviewed and resumed appropriately. Follow-up CBC BMP ordered PT OT evaluation. DVT prophylaxis: Lovenox subcu daily. Disposition: Still on IV antibiotics Pending orthopedics consult. Possible discharge in next 1 to 2 days. -am labs, replace lytes prn -increase activity -DVT prophylaxis: [] Lovenox [] Heparin [] SCDs [x] Encourage ambulation [] Already on Anticoagulation Advance Directive: Full Code Discharge planning: SHARAD Gates MD Division of Hospitalist Medicine Inpatient Medical Services/[facility]: [phone] [1] Past Medical History: Diagnosis Date Asthma CAD (coronary artery disease) Depression Diabetes (HCC) GERD (gastroesophageal reflux disease) Hyperlipidemia Hypertension [2] sodium chloride, 50 mL/hr, Last Rate: 50 mL/hr (02/02/25 1313) [3] atorvastatin, 10 mg, Oral, Nightly ceFAZolin, 1,000 mg, IntraVENous, q8h cloNIDine, 0.2 mg, Oral, Daily clopidogrel, 75 mg, Oral, Daily DULoxetine, 30 mg, Oral, Daily enoxaparin, 40 mg, SubCUTAneous, Daily insulin lispro, 0-12 Units, SubCUTAneous, TID WC And insulin lispro, 0-12 Units, SubCUTAneous, Nightly lisinopril, 5 mg, Oral, Daily Images from the original note were not included. OCCUPATIONAL THERAPY [facility] Initial Evaluation Name/MRN: Anson Capps ([id number]) Evaluation Date: 02/02/2025 Date of : 1940 Admission Date: 01/31/2025 4:24 PM Age: 84 y.o. Room/Bed: U-04/U04 A Discharge Recommendation: Home with Home health OT Assessment IMPRESSION: Pt is an 84 y/o F admitted to [facility] on 02/01/25 d/t an open wound on the right knee sustained from a fall on 01/23/25. Pt presented with gauze and knee brace on R knee during session. Pt limited by R knee drainage, edema, redness and pain along with reduced endurance. Glucose levels were critically low early in AM on 02/02/25 but have since increased. PLOF I with ADL's and functional mobility. Pt completed bed mobility SBA, transfers MIN A progressing to CGA, functional mobility CGA, LB dressing CGA, toileting MOD A. Recommend [facility] to increase safety and I to return home safely. Admitting Diagnosis: open knee wound, RLE Performance Deficits /Impairments: Increased Pain, Decreased Functional Mobility, Decreased ADL status, Decreased Strength, Decreased Endurance, and Decreased High Level IADLs Prognosis: Good Decision Making: Medium Complexity Subjective My leg is really hurting sitting EOB Pain: 0-10 pain scale: 7/10 Location: R knee Past Medical History: Medical History[1] Past Surgical History: Surgical History[2] Admission Diagnosis: Patient Active Problem List Diagnosis Date Noted Open knee wound, right, initial encounter 01/31/2025 Septic shock (HCC) 05/11/2023 Medical Precautions: No active isolations Proper PPE donned/doffed in accordance with facility standards. Fall Risk: Ceballos Fall Risk Score: 70 (Low Risk) Ceballos Fall Risk Score: 70 (High Risk) Precautions/Restrictions: Lines/Drains/Airways: IV Family/Caregiver Present: none Overall Cognitive Status: WNL Overall Orientation Status: Oriented x4 Social/Functional History Patient admitted from home. Lives With: Alone Type of Home: apartment - 3rd floor, elevator to access Home Layout: Single Level Home Home Access: Stairs to Enter with Rails (# of stairs: 2-3) Bathroom Shower/Tub: Tub/Shower Combo, Shower Chair with Back, and Grab Bars Toilet: Standard and Grab Bars Home Equipment: front wheeled walker, rollator, and cane Homemaking Responsibilities: Independent Receives Help From: Home Health Aid 2x/wk. Assist in ADLs. Active Manager Ethics: No Prior Level of Function Prior Level of ADL Function: Independent Prior Level of Mobility: Independent; Device: Front wheeled walker Prior Level of Transfers: Independent PLOF obtained from PT eval. Objective ADLs LE Dressing: Contact Guard Toileting: Mod Assist Pt on bedpan at start of session. MOD A to remove bedpan and complete posterior soraya-care. Pt's participation in OT eval supports progressing to BSC level. Pt completed LB dressing sitting EOB, difficulty with bending R knee d/t pain and edema but able to bend forward to reach foot to thread foot through pant leg. Pt standing to pull up over bottom with no LOB. Bed Mobility Supine to sit: SBA Sit to supine: SBA Rolling to right: Supervision Scooting: SBA HOB Elevated Use of bed rail(s) No physical assistance needed to get into/out of bed on this date. Pt rolling to R side for bed rodriguez removal. Use of bed rails to bring trunk to upright posture, increased time to complete d/t pain in RLE. Transfers/Mobility Sit to stand: Contact Guard, Min Assist Stand to sit: Contact Guard Stand step: Contact Guard Functional mobility: Contact Guard Pt initially needing MIN A STS d/t pulling on FWW and needing multiple attempts to come to full stand. Educated pt on proper hand placement during transitional movements for safety with fair follow through. Progressed to CGA when following proper technique. Pt completed functional mobility in hallway, ~25ft with CGA, cues for safe FWW placement. Device(s) used: Front wheeled walker Vision: wears glasses at all times and and are being used during the eval Hearing: normal AM-PAC AM-PAC Inpatient Daily Activity Raw Score: 18 ADL Inpatient CMS G-Code Modifier: CK Plan Pt would benefit from skilled acute OT services to address Strengthening, Balance Training, Self-Care/ADL Training, Functional Mobility Training, Endurance Training, and Safety Education and Training Frequency: 3 visits during current hospital admission or until additional recommendations are made Barriers: Pain, Impaired balance, Lower extremity weakness, and Decreased endurance Safety/Education Safety Safety Devices in place: All fall risk precautions in place, call light within reach, gait belt, nurse notified, and patient left sitting EOB Restraints: N/A Education Education Given To: patient Education Provided: OT Role, Plan of Care, Transfer Training, Equipment, Fall Prevention Education, and Discharge Recommendations Education Method: Verbal, Demonstration, and Teach Back Barriers to Learning: None Education Outcome: Verbalized Understanding, Demonstrated Understanding, and Continued Education Needed Goals Patient Stated Goal: I want this knee to feel better Encounter Problems Encounter Problems (Active) Balance Patient will maintain dynamic standing balance for 5 minutes with modified independence in order to demonstrate decreased risk of falling. Start: 02/02/25 Expected End: 02/05/25 Dressings Lower Extremities Patient will dress lower body MOD I Start: 02/02/25 Expected End: 02/05/25 Toileting Patient will complete toileting tasks at standard toilet with supervision. Start: 02/02/25 Expected End: 02/05/25 Transfers Patient will complete functional transfers and mobility with rolling walker with modified independence in order to prepare for ADL tasks. Start: 02/02/25 Expected End: 02/05/25 Therapy Time Individual Co-Treatment Co-Evaluation Time In 1244 Time Out 1258 Minutes 14 Krunal Narvaez/MIRYAM Patient's Occupational Therapy Plan of Care supervision is transferred to a [facility] Therapy Services Occupational Therapist. Goals and/or treatment plan was established in collaboration with patient/family/other representatives. I certify that I was present during the entire session and guided the care given by the Student Occupational Therapist. Cosign: PORTER Scott/Faith [1] Past Medical History: Diagnosis Date Asthma CAD (coronary artery disease) Depression Diabetes (HCC) GERD (gastroesophageal reflux disease) Hyperlipidemia Hypertension [2] Past Surgical History: Procedure Laterality Date HYSTERECTOMY SHOULDER SURGERY Right Nutrition rescreen completed. Patient referred to the Dietitian for wounds Images from the original note were not included. PHYSICAL THERAPY [facility] Initial Evaluation Name/MRN: Anson Capps ([id number]) Evaluation Date: 02/01/2025 Date of : 1940 Admission Date: 01/31/2025 4:24 PM Age: 84 y.o. Room/Bed: U-04/U-04 A Discharge Recommendation: Home with Home health PT Equipment Needed: No Assessment IMPRESSION: Pt admitted to ED on 02/01/25 with open R knee wound s/p fall at home. Pt fell roughly 7 days ago requiring sutures to R anterior knee and now presents s/p wound dehiscence following fall at home. Prior to admission, pt lived alone and performed mobility independently. Upon eval, pt required SBA for bed mobility, CGA for transfers, CGA for gait/ambulation with fww. Pt would benefit from skilled PT services in order to increase safety and independence in functional mobility and daily tasks. Recommend [facility] PT upon DC. Admitting Diagnosis: open knee wound Prognosis: good Performance Deficits /Impairments: Increased Pain, Decreased Functional Mobility, Decreased ADL status, Decreased Strength, and Decreased Balance Decision Making: Medium Complexity Subjective Pt pleasant and agreeable to PT evaluation. RN cleared pt for session. Vitals WNL Pain: 0-10 pain scale: 6/10 Location: B knees Past Medical History: Medical History[1] Past Surgical History: Surgical History[2] Admission Diagnosis: Patient Active Problem List Diagnosis Date Noted Open knee wound, right, initial encounter 01/31/2025 Septic shock (HCC) 05/11/2023 Medical Precautions: No active isolations Proper PPE donned/doffed in accordance with facility standards. Fall Risk: Ceballos Fall Risk Score: 80 (Low Risk) Ceballos Fall Risk Score: 80 (High Risk) Precautions/Restrictions: N/A Family/Caregiver Present: none Overall Cognitive Status: WNL Overall Orientation Status: Oriented x4 Vision: wears glasses at all times and and are being used during the eval Hearing: normal Social/Functional History Patient admitted from home. Lives With: Alone Type of Home: apartment - 3rd floor, elevator to access Home Layout: Single Level Home Home Access: Stairs to Enter with Rails (# of stairs: 2-3) Bathroom Shower/Tub: Tub/Shower Combo, Shower Chair with Back, and Grab Bars Toilet: Standard and Grab Bars Home Equipment: front wheeled walker, rollator, and cane Homemaking Responsibilities: Independent Receives Help From: Home Health Aid 2x/wk. Assist in ADLs. Active Manager Ethics: No Prior Level of Function Prior Level of ADL Function: Independent Prior Level of Mobility: Independent; Device: None Prior Level of Transfers: Independent Objective Lower Extremity Assessment AROM: WFL - R knee slightly limited d/t sutures, avoiding extreme ROM Strength: Pt demonstrates appropriate B LE and quad strength in order to safely participate in OOB mobility Sensation: WFL Bed Mobility: Supine to sit: SBA Sit to supine: SBA SBAx1 for all bed mobility. Good tolerance noted with limited R knee flexion. No LOB. Transfers Sit to stand: Contact Guard Stand to sit: Contact Guard STS with fww at CGAx1 and cues for proper sequencing, hand placement and positioning for R knee avoidance of extreme ROM required. Good return noted. Ambulation Ambulation 1 Assistive device(s) used: Front wheeled walker Assist level: Contact Guard Distance (ft): 40ft x 2 Quality of gait: antalgic, step to pattern, B foot clearance, shuffling, narrow MUNIR, slow benoit Pt required increased gait training with fww at CGAx1. Cues and education on proper modified 3 point sequencing, heel toe gait pattern, device approximation and overall pacing of activity required. Good overall return with increased time needed to complete. No overt LOB noted. Moderate fatigue noted post ambulation. Outcome Measures AM-PAC How much HELP from another person do you currently need Turning from your back to your side while in a flat bed without using bedrails?: A Little Moving from lying on your back to sitting on the side of a flat bed without using bedrails?: A Little Moving to and from a bed to a chair (including a wheelchair)?: A Little Standing up from a chair using your arms (wheelchair or bedside chair)?: A Little Walking in a hospital room?: A Little Stair climbing assessed?: No AM-PAC Inpatient Mobility Raw Score (No Stairs) : 15 JH-HLM -HLM Score: Walked 25 ft or more (i.e. walked outside of room) Plan Pt would benefit from skilled acute PT services to address Strengthening, Gait Training, Balance Training, Self-Care/ADL Training, Functional Mobility Training, Endurance Training, Safety Education and Training, Stair Training, and Pain Management. Frequency: 5 visits during current hospital admission or until additional recommendations are made Barriers: Pain, Impaired balance, Lower extremity weakness, Decreased endurance, and Limited family support Safety/Education Safety Safety Devices in place: All fall risk precautions in place, call light within reach, left in bed, gait belt, patient at risk for falls, nurse notified, and no alarms engaged upon entry Restraints: N/A Education Education Given To: patient Education Provided: PT Role, PT Goals, Gait Training, Plan of Care, Transfer Training, Energy Conservation, IADL Safety, Equipment, Fall Prevention Education, Discharge Recommendations, and Benefits of Increasing Activity Education Method: Verbal and Demonstration Barriers to Learning: None Education Outcome: Verbalized Understanding, Demonstrated Understanding, and Continued Education Needed Goals Patient Stated Goal: to be able to go home soon Encounter Problems Encounter Problems (Active) Balance Patient will maintain dynamic standing balance for 10 minutes with modified independence in order to demonstrate decreased risk of falling. Start: 02/01/25 Expected End: 02/12/25 Exercise Patient will complete lower extremity exercises for 1-2 sets / 10-15 reps in order to improve strength and activity tolerance for mobility. Start: 02/01/25 Expected End: 02/12/25 Mobility Patient will ambulate 100 feet with modified independence and least restrictive device in order to improve safety and independence with mobility. Start: 02/01/25 Expected End: 02/12/25 Patient will ascend and descend 2-3 stairs with one railing and modified independence in order to safely negotiate home. Start: 02/01/25 Expected End: 02/12/25 Transfers Patient will perform bed mobility with modified independence in order to improve independence and prepare for out of bed mobility. Start: 02/01/25 Expected End: 02/12/25 Patient will complete functional transfer with least restrictive device with modified independence in order to prepare for ambulation. Start: 02/01/25 Expected End: 02/12/25 Therapy Time Individual Co-Treatment Co-Evaluation Time In 0917 Time Out 0940 Minutes 23 Timed Code Treatment Minutes: 8 Minutes (gait x1) Demetrio Rodriguez PT Patient's Physical Therapy Plan of Care supervision is transferred to a [facility] Therapy Services Physical Therapist. Goals and/or treatment plan was established in collaboration with patient/family/other representatives. [1] Past Medical History: Diagnosis Date Asthma CAD (coronary artery disease) Depression Diabetes (HCC) GERD (gastroesophageal reflux disease) Hyperlipidemia Hypertension [2] Past Surgical History: Procedure Laterality Date HYSTERECTOMY SHOULDER SURGERY Right documented in this encounter [facility] 02-07-2025 Note Formatting of this n ote might be different from the original. S/W, Transport Transport set via [facility] at 430p to [facility]. Facility updated in [facility] of time. TCC and senior occupational therapist messaged as well. [facility] 02-07-2025 Note Formatting of this n ote might be different from the original. S/W, Transport Transport set via [facility] at 430p to [facility]. Facility updated in [facility] of time. TCC and senior occupational therapist messaged as well. [facility] 02-07-2025 Note Formatting of this n ote might be different from the original. Care Management Progress Note Short Medical why still here: Placement. Notified by facility ( [facility] that they are able to accept and will not need precert auth. Pt will be going under her Medicaid and the facility is working on LOC. Dr. Gates notified that pt and DC today . Awaiting DC paperwork. SW completed PASSAR and will arrange DC transportation. Planned Discharge Disposition: Penitentiary/Residential Care Barriers/Today we still Wait: Facility pre-cert Length of Stay (Days): 0 GMLOS: 2.6 [facility] 02-07-2025 Note Formatting of this n ote might be different from the original. Care Management Progress Note Short Medical why still here: Placement. [facility] by [facility] ( [facility] that they are able to accept and will not need precert auth. Pt will be going under her Medicaid and the facility is working on LOC. Dr. Gates notified that pt and DC today . Awaiting DC paperwork. SW completed PASSAR and will arrange DC transportation. Planned Discharge Disposition: Penitentiary/Residential Care Barriers/Today we still Wait: Facility pre-cert Length of Stay (Days): 0 GMLOS: 2.6 [facility] 02-07-2025 Consult note Associated Order (s): PHARMACY TO DOSE VANCO Vancomycin therapy has been discontinued by Dr. Gates on 02/07/25. Thank you for the consult. Pharmacy signing off for vancomycin dosing. Alexandr Dasilva RPh, PharmD Date: 02/07/25 Time: 1:54 PM [facility] 02-07-2025 Consult note Associated Order (s): PHARMACY TO DOSE VANCO Vancomycin therapy has been discontinued by Dr. Gates on 02/07/25. Thank you for the consult. Pharmacy signing off for vancomycin dosing. Alexandr Dasilva RPh, PharmD Date: 02/07/25 Time: 1:54 PM Images from the original note were not included. Pharmacy Managed Vancomycin Dosing Service Consult Note Consult Date: 02/03/25 Patient Name: Anson Capps Allergies: Iron, Pregabalin, Tetracyclines & related, Amlodipine, and Codeine Age: 84 y.o. Sex: female Estimated body mass index is 24.61 kg/m as calculated from the following: Height as of this encounter: 1.524 m (5'). Weight as of this encounter: 57.2 kg (126 lb). Lab Results Component Value Date CREATININE 1.22 (H) 02/03/2025 CREATININE 1.24 (H) 02/03/2025 BUN 46 (H) 02/03/2025 BUN 48 (H) 02/03/2025 WBC 8.5 02/03/2025 WBC 10.1 02/02/2025 Calculated CrCl: 30 mL/min Consulted By: Dr. Gates Infectious Diagnosis: SSTI (AUC Goal 400-600 mg/L*hr) Antimicrobials: Patient recently received an antibiotic (last 12 hours) Date/Time Action Medication Dose Rate 02/03/25 1337 New Bag ceFAZolin (Ancef) 1,000 mg in sodium chloride 0.9 % 50 mL IVPB 1,000 mg 100 mL/hr 02/03/25 0604 New Bag ceFAZolin (Ancef) 1,000 mg in sodium chloride 0.9 % 50 mL IVPB 1,000 mg 100 mL/hr Assessment/Plan: Doses, serum creatinine, and vancomycin levels interfaced automatically to [email or web address] and data has been analyzed and interpreted. Start Vancomycin 750 mg Q 24 hours based on patient age, weight, renal function, and infectious diagnosis (13 mg/kg). Predicted AUC = 475 mg/L*hr (goal 400-600 mg/L*hr) Will assess level on 02/04 and adjust as appropriate. Trend serum creatinine. Orders placed. Thank you for this consult. Please secure text or call with questions. DATE: 02/03/25 TIME: 2:39 PM Viv Crane RPh Clinical Pharmacist Available via Secure Chat Associated Order(s): IP CONSULT TO ORTHOPAEDIC SURGERY Consult Note Date:02/02/2025 Patient Name:Anson Capps Date of :1940 Age:84 y.o. Reason for Consult: Right knee laceration, rule out septic joint Chief Complaint Chief Complaint Patient presents with Wound Check Right knee pain. History Obtained From Patient, chart. History of Present Illness The patient is a pleasant 84 yo WF who suffered a mechanical fall from standing height on 01/23. She landed directly on the front of her right knee and sustained a 7 cm transverse laceration. Her wound was appropriately cleaned in sutured in the ED the same day. She presents now with increased pain and fear of infection. She says her daughter is an RN and has been cleaning the wound and changing the dressing daily. She endorses a mild amount of purulent drainage. The knee feels much better than yesterday. She denies fever, chills or malaise. Past Medical History Medical History[1] Past Surgical History Surgical History[2] Medications Prior to Admission medications Medication Sig Start Date End Date Taking? Authorizing Provider albuterol 108 (90 Base) MCG/ACT inhaler Inhale 1 puff every 4 hours as needed. Historical Provider, atorvastatin (Lipitor) 40 MG tablet Take by mouth. 02/13/22 01/04/24 Historical Provider, cephalexin (Keflex) 500 MG capsule Take 1 capsule (500 mg) by mouth 4 times daily for 5 days. 01/24/25 01/29/25 Dara Correia DO cholecalciferol (Vitamin D-3) 10 MCG (400 UNIT) capsule Take by mouth. 11/28/22 Historical Provider, cloNIDine (Catapres) 0.2 MG tablet Take 0.2 mg by mouth in the morning. Historical Provider, clopidogrel (Plavix) 75 MG tablet Take 75 mg by mouth daily. Historical Provider, dulaglutide (Trulicity) 3 MG/0.5ML solution pen-injector Inject under the skin 1 (one) time per week. Historical Provider, MD DULoxetine (Cymbalta) [address] capsule Take 30 mg by mouth daily. Historical Provider, ferrous gluconate ( Ferrous Gluconate) 324 (37.5 Fe) MG tablet Take 324 mg by mouth daily (with breakfast). Historical Provider, ipratropium-albuterol (Duo-Neb) 0.5-2.5 mg/3 mL nebulizer solution Inhale 3 mL in the morning and 3 mL at noon and 3 mL in the evening and 3 mL before bedtime. Historical Provider, lisinopril 5 MG tablet Take 1 tablet (5 mg) by mouth daily. 05/14/23 Jamee Stewart MD oxyCODONE (Roxicodone) 5 MG immediate release tablet Take 1 tablet (5 mg) by mouth every 8 hours as needed for severe pain (7-10). 01/24/25 Dara Correia, DO Allergies Iron, Pregabalin, Tetracyclines & related, Amlodipine, and Codeine Social History reports that she has never smoked. She has never used smokeless tobacco. She reports that she does not currently use alcohol. She reports that she does not use drugs. Family History Family History[3] Review of Systems Denies HI or LOC. Denies FERNANDEZ or dizziness. Denies recent cold or flu. Denies CP or palpitations. Denies SOB or cough. Denies abdominal pain. Denies bowel or bladder complaint. Denies rash or skin lesion other than her right knee laceration. Denies focal neuro deficit. Physical Exam BP (!) 176/89 (BP Location: Right arm, Patient Position: Lying) Pulse 100 Temp 36.7 C (98.1 F) (Temporal) Resp 18 Ht 1.524 m (5') Wt 56.7 kg (125 lb) SpO2 92% BMI 24.41 kg/m A&O x 3. NAD. Head NC/AT. Heart RRR. Breathing unlabored. Abdomen soft, NT. UE moving freely. Knee immobilizer intact right LE. Her 7 cm transverse right knee laceration is well approximated with interrupted sutures. The skin surrounding the laceration is hyperemic but not cellulitic. There is no active drainage. There is no joint effusion. There is no prepatellar fluid collection or fluctuance. She can hold an active SLR without pain. Knee flexion is appropriately painful. Calves soft, NT. NVI distally. Labs CBC: Recent Labs 01/31/25 1721 02/02/25 0050 WBC 9.5 10.1 RBC 4.26 3.98 HGB 12.7 11.8 HCT 39.2 37.5 MCV 92.0 94.2 RDW 13.5 13.5 PLT 417 385 CHEMISTRIES: Recent Labs 01/31/25 1721 02/01/25 1512 02/02/25 0050 NA 137 -- 143 K 5.2* 5.3* 4.6 CL 102 -- 111* CO2 21* -- 21* BUN 63* -- 48* CREATININE 1.13* -- 1.24* GLUCOSE 112 -- 44* PT/INR:No results for input(s): PROTIME, INR in the last 72 hours. APTT:No results for input(s): APTT in the last 72 hours. LIVER PROFILE:No results for input(s): AST, ALT, BILIDIR, BILITOT, ALKPHOS in the last 72 hours. Imaging/Diagnostics Right knee x-ray is negative for fracture, foreign body or joint effusion. Assessment Mechanical fall from standing height on 01/23. Right knee laceration. Low index of suspicion for superficial or deep infection. Plan The patient's knee looks very benign to me. No sign of active infection. Joint aspiration not indicated. Her extensor mechanism is intact. I recommend a DSD to the right knee daily. I agree with knee immobilizer to prevent excessive wound tension during flexion. Given the transverse nature of the laceration, I would recommend leaving the sutures in for a full 2 weeks to prevent wound dehiscence. OK for WBAT. I will follow peripherally - call or message with questions or concerns. Electronically signed by Gilberto Harley MD [1] Past Medical History: Diagnosis Date Asthma CAD (coronary artery disease) Depression Diabetes (HCC) GERD (gastroesophageal reflux disease) Hyperlipidemia Hypertension [2] Past Surgical History: Procedure Laterality Date HYSTERECTOMY SHOULDER SURGERY Right [3] No family history on file. Associated Order(s): IP CONSULT TO NEPHROLOGY Images from the original note were not included. Initial Nephrology Consult Note Patient: Anson Capps Room number: CDU-04/CDU-04 A Date of Admit: 01/31/2025 LOS: 1 days Referring physician: Baldomero Gates MD Outpatient Professional Housing Consultant: Erin Montiel MD ([place]). Reason for Consult: Asked to see/evaluate by primary service for opinion regarding: abnormal renal labs. Assessment/Plan: 1. CKD stage III- baseline Scr 1.1-1.3 mg/dL. Follow up with [place] [facility] as an outpatient. 2. Hyperkalemia - mild and apears resolved. Continue ACEi. Check CPK. 3. R knee cellulitis after laceration - on abx. 4. DM type II -not a good candidate for SGLT2 therapy given her Apr 2023 admit for pylenephritis/sepsis. 5. PAD with muscle atrophy L leg. Medication dose adjustment: CrCl < 40 ml/min. Will follow along as directed. Thank you for allowing us to participate in the care of this patient. HPI: Anson Capps is a 84 y.o. female with a past medical history of: CKD stage III, DM type II, COPD, HTN, depression, PAD with L leg revascularization, , who was admitted by,Brando Frank MD, for Open knee wound, right, initial encounter [S81.001A]. Admitted after recent ER visit for mechanical fall at home with R knee laceration. Completed 7 days course of Keflex. Presented to ER again with worsening redness or R knee and admitted for IV antibiotics. Scr 1.13 with K 5.2 on admission, Contrast exposure: no Nephrotoxic drug exposure: no documented use of aminoglycosides or NSAIDs. Hypotensive episodes: none documented. PMHx: Medical History[1] Past Surgical History: Surgical History[2] Family History: Family History[3] Social History: Social History Socioeconomic History Marital status: Spouse name: Not on file Number of children: Not on file Years of education: Not on file Highest education level: Not on file Occupational History Not on file Tobacco Use Smoking status: Never Smokeless tobacco: Never Substance and Sexual Activity Alcohol use: Not Currently Drug use: Never Sexual activity: Not on file Other Topics Concern Not on file Social History Narrative Not on file Social Drivers of Health Financial Resource Strain: Not on file Food Insecurity: Not on file Transportation Needs: No Transportation Needs (05/12/2023) PRAPARE - Transportation Lack of Transportation (Medical): No Lack of Transportation (Non-Medical): No Physical Activity: Not on file Stress: Not on file Social Connections: Not on file Intimate Partner Violence: Not At Risk (02/01/2025) Humiliation, Afraid, Rape, and Kick questionnaire Fear of Current or Ex-Partner: No Emotionally Abused: No Physically Abused: No Sexually Abused: No Housing Stability: Low Risk (05/12/2023) Housing Stability Vital Sign Unable to Pay for Housing in the Last Year: No Number of Places Lived in the Last Year: 1 Unstable Housing in the Last Year: No Medications: Scheduled Meds:Scheduled Meds[4] Continuous Infusions:Continuous Meds[5] Allergies: Allergies[6] Review of Systems: Denies uremic symptoms. All other ROS negative, except for those noted above in HPI. Physical Exam: Vitals: 02/01/25 0815 02/01/25 1933 02/01/25 2034 02/02/25 0805 BP: 151/72 133/73 (!) 176/89 BP Location: Left arm Right arm Right arm Patient Position: Lying Lying Lying Pulse: 105 110 104 100 Resp: 18 15 18 Temp: 36.1 C (96.9 F) 37.1 C (98.7 F) 36.7 C (98.1 F) TempSrc: Temporal Temporal SpO2: 93% 94% 94% 92% Weight: Height: Today's weight: Weight: 56.7 kg (125 lb) Admission weight: Weight: 56.7 kg (125 lb) Wt Readings from Last 3 Encounters: 01/31/25 56.7 kg (125 lb) 01/24/25 56.7 kg (125 lb) 01/23/25 56.7 kg (125 lb) Estimated body mass index is 24.41 kg/m as calculated from the following: Height as of this encounter: 1.524 m (5'). Weight as of this encounter: 56.7 kg (125 lb). Intake/Output Summary (Last 24 hours) at 02/02/2025 1713 Last data filed at 02/02/2025 1313 Gross per 24 hour Intake 1474.17 ml Output 350 ml Net 1124.17 ml FIO2 needs: No data found. General Appearance no acute distress, comfortable appearing, looks stated age. Alert and oriented x 3 HEENT Neck anicteric sclera, moist mucus membranes, normal external ears/nares, no facial edema, EOMI. Supple neck, midline trachea without tracheal deviation Chest symmetric, normal shape/expansion, no chest wall/sternal tenderness Heart RRR, no audible pericardial rubs Lungs Occasional wheeze, unlabored respirations without conversational dyspnea, no accessory muscle use, laying flat, room air Abdomen Skin soft without distension or palpable organomegaly, normal bowel sounds, no rebound or guarding, no periumbilical bruits audible no rash or subcutaneous nodules, warm and dry skin with good turgor Musculoskeletal no leg edema, R knee immobilized/covered by dressing. Muscle atrophy L leg no salazar catheter present Neurologic no resting tremor,/asterixis. Able to follow commands. Psychiatric mood and affect animated, insight and judgment intact. Memory recall intact LABS: Recent Labs 01/31/25 1721 02/02/25 0050 WBC 9.5 10.1 HGB 12.7 11.8 HCT 39.2 37.5 MCV 92.0 94.2 PLT 417 385 Recent Labs 01/31/25 1721 02/01/25 1512 02/02/25 0050 NA 137 -- 143 K 5.2* 5.3* 4.6 CL 102 -- 111* CO2 21* -- 21* BUN 63* -- 48* CREATININE 1.13* -- 1.24* GLUCOSE 112 -- 44* CALCIUM 9.8 -- 9.0 ANIONGAP 14* -- 11 Lab Results Component Value Date ALT 27 05/18/2023 AST 52 (H) 05/18/2023 Lab Results Component Value Date COLORU Light Yellow 05/18/2023 CLARITYU Clear 05/18/2023 GLUCOSEU Normal 05/18/2023 BLOODU Negative 05/18/2023 UROBILINOGEN Normal 05/18/2023 Diagnostic Studies: CXR: reviewed in PACS Personally reviewed MARS, labs, radiologic studies and notes. office: [phone] Pager: [phone] [1] Past Medical History: Diagnosis Date Asthma CAD (coronary artery disease) Depression Diabetes (HCC) GERD (gastroesophageal reflux disease) Hyperlipidemia Hypertension [2] Past Surgical History: Procedure Laterality Date HYSTERECTOMY SHOULDER SURGERY Right [3] No family history on file. [4] atorvastatin, 10 mg, Oral, Nightly ceFAZolin, 1,000 mg, IntraVENous, q8h cloNIDine, 0.2 mg, Oral, Daily clopidogrel, 75 mg, Oral, Daily DULoxetine, 30 mg, Oral, Daily enoxaparin, 40 mg, SubCUTAneous, Daily insulin lispro, 0-12 Units, SubCUTAneous, TID WC And insulin lispro, 0-12 Units, SubCUTAneous, Nightly lisinopril, 5 mg, Oral, Daily [5] sodium chloride, 50 mL/hr, Last Rate: 50 mL/hr (02/02/25 1313) [6] Allergies Allergen Reactions Iron Other reaction(s): Hypotension (oral iron is ok) Pregabalin Unknown Other reaction(s): Pedal edema, Swelling Tetracyclines & Related Other reaction(s): GI Upset, Nausea Amlodipine Swelling Severe swelling bilateral feet and legs Codeine Other reaction(s): Dizziness, Nausea, Other: See Comments Nausea Images from the original note were not included. [facility] Wound Care CONSULT Note Anson Capps AGE: 84 y.o. GENDER: female : 1940 Subjective: HISTORY of PRESENT ILLNESS HPI Anson Capps is a 84 y.o. female who presents for a wound consult. HPI: 84 y.o. who presented to the emergency department on 01/31 with chief complaint of right knee wound check. Patient had a mechanical fall onto carpet on 01/23 and sustained a large laceration to the right knee. Patient came into the emergency department and had suture repair. Patient then returned to the emergency department on 01/24 and had additional suturing. Knee became more red, painful, swollen, and had a small amount of yellowish drainage from the medial aspect of the wound. Denies fever/chills. Completed oral Keflex initially prescribed. XR of right knee on 01/31: IMPRESSION: 1. No acute osseous abnormality. 2. Soft tissue edema. Wound care consulted for laceration of right knee. Patient resting in CDU bed at time of visit. Admits to pain of right knee but notes swelling has decreased. Dressing changed at time of visit. RN at bedside notified of blanchable erythema to right heel. PAST MEDICAL HISTORY Active Ambulatory Problems Diagnosis Date Noted Septic shock (HCC) 05/11/2023 Resolved Ambulatory Problems Diagnosis Date Noted No Resolved Ambulatory Problems Past Medical History: Diagnosis Date Asthma CAD (coronary artery disease) Depression Diabetes (HCC) GERD (gastroesophageal reflux disease) Hyperlipidemia Hypertension PAST SURGICAL HISTORY Surgical History[1] FAMILY HISTORY Family History[2] SOCIAL HISTORY Social History[3] ALLERGIES Allergies[4] MEDICATIONS Medications Ordered Prior to Encounter[5] REVIEW OF SYSTEMS Pertinent items are noted in HPI. Objective: BP 151/72 (BP Location: Left arm, Patient Position: Lying) Pulse 105 Temp 36.1 C (96.9 F) Resp 18 Ht 5' (1.524 m) Wt 125 lb (56.7 kg) SpO2 93% BMI 24.41 kg/m PHYSICAL EXAM General appearance: in no apparent distress, in no respiratory distress and acyanotic, alert, oriented times 3, and cooperative Skin: warm and dry Pulmonary: Normal effort, no respiratory distress, no cyanosis Extremities: no cyanosis, clubbing or edema, blanchable erythema noted on right heel. Right knee: 9.0cm incision. Sutures intact. Well approximated. Scant serosanguinous drainage. Periwound with erythema, mild edema. Photo 02/01/25 LABS CBC: Lab Results Component Value Date WBC 9.5 01/31/2025 HGB 12.7 01/31/2025 HCT 39.2 01/31/2025 MCV 92.0 01/31/2025 PLT 417 01/31/2025 BMP: Lab Results Component Value Date NA 137 01/31/2025 K 5.3 (H) 02/01/2025 CL 102 01/31/2025 CO2 21 (L) 01/31/2025 BUN 63 (H) 01/31/2025 CREATININE 1.13 (H) 01/31/2025 PT/INR: No results found for: PROTIME, INR Prealbumin: No results found for: PREALBUMIN Albumin:No components found for: LABALBU Sed Rate:No results found for: SEDRATE Micro: No components found for: BC Assessment/Plan: Right knee: Laceration -Cleanse with NS, apply xeroform followed by ABD and kerlix every day and PRN Float heels with pillow Wound care to follow Nutritional support Recommend to follow up at [facility] wound care [facility] after hospital discharge. Thank you for the consult! I personally obtained the hewitt and critical portions of the history and physical exam. I reviewed the labs, imaging studies, and electronic medical record. I reviewed the chart documentation and discussed the patient with treatment team members. I have edited the note to reflect my clinical findings and my assessment and plan. Please note, the time of this note does not reflect the time I saw this patient today, but the time of this documentaton. Portions of this note including HPI, ROS, impression/plan, and examination may have been copied forward from admission to today as to provide important historical information essential in contributing to medical decision making. Documentation has been reviewed and edited as necessary to support clinical decision making for today's visit and to reflect my own independent evaluation of this patient. Decision making for today's visit and to reflect my own independent evaluation of this patient. [1] Past Surgical History: Procedure Laterality Date HYSTERECTOMY SHOULDER SURGERY Right [2] No family history on file. [3] Social History Tobacco Use Smoking status: Never Smokeless tobacco: Never Substance Use Topics Alcohol use: Not Currently Drug use: Never [4] Allergies Allergen Reactions Iron Other reaction(s): Hypotension (oral iron is ok) Pregabalin Unknown Other reaction(s): Pedal edema, Swelling Tetracyclines & Related Other reaction(s): GI Upset, Nausea Amlodipine Swelling Severe swelling bilateral feet and legs Codeine Other reaction(s): Dizziness, Nausea, Other: See Comments Nausea [5] No current facility-administered medications on file prior to encounter. Current Outpatient Medications on File Prior to Encounter Medication Sig Dispense Refill albuterol 108 (90 Base) MCG/ACT inhaler Inhale 1 puff every 4 hours as needed. atorvastatin (Lipitor) 40 MG tablet Take by mouth. [] cephalexin (Keflex) 500 MG capsule Take 1 capsule (500 mg) by mouth 4 times daily for 5 days. 20 capsule 0 cholecalciferol (Vitamin D-3) 10 MCG (400 UNIT) capsule Take by mouth. cloNIDine (Catapres) 0.2 MG tablet Take 0.2 mg by mouth in the morning. clopidogrel (Plavix) 75 MG tablet Take 75 mg by mouth daily. dulaglutide (Trulicity) 3 MG/0.5ML solution pen-injector Inject under the skin 1 (one) time per week. DULoxetine (Cymbalta) [address] capsule Take 30 mg by mouth daily. ferrous gluconate (KP Ferrous Gluconate) 324 (37.5 Fe) MG tablet Take 324 mg by mouth daily (with breakfast). ipratropium-albuterol (Duo-Neb) 0.5-2.5 mg/3 mL nebulizer solution Inhale 3 mL in the morning and 3 mL at noon and 3 mL in the evening and 3 mL before bedtime. lisinopril 5 MG tablet Take 1 tablet (5 mg) by mouth daily. 30 tablet 1 oxyCODONE (Roxicodone) 5 MG immediate release tablet Take 1 tablet (5 mg) by mouth every 8 hours as needed for severe pain (7-10). 6 tablet 0 Cosigned by Joseluis Wolfe DO at 02/07/2025 4:52 PM EDT documented in this encounter [facility] 02-07-2025 Note Formatting of this n ote might be different from the original. S/W, PASSR PASSR completed in [facility] for [facility]. I did update facility in [facility]. [facility] 02-07-2025 Note Formatting of this n ote might be different from the original. S/W, PASSR PASSR completed in [facility] for [facility]. I did update facility in [facility]. [facility] 02-07-2025 Note Formatting of this n ote might be different from the original. Updated notes sent to [facility] via [facility] per TCC request. Await review and response regarding ability to accept. TCC notified. T [facility] 02-07-2025 Note Formatting of this n ote might be different from the original. Updated notes sent to [facility] via [facility] per TCC request. Await review and response regarding ability to accept. TCC notified. T [facility] 02-07-2025 Note Formatting of this n ote might be different from the original. Messaged [facility] in [facility] that pt looks to be ready to DC. Pt will be going to facility under Medicaid. SW to do PASSAR and MANAGER UTILITY tasked to send updated to facility. Awaiting response from [facility]. Will continue to follow. T [facility] 02-07-2025 Note Formatting of this n ote might be different from the original. Messaged [facility] in [facility] that pt looks to be ready to DC. Pt will be going to facility under Medicaid. SW to do PASSAR and MANAGER UTILITY tasked to send updated to facility. Awaiting response from [facility]. Will continue to follow. T [facility] 02-07-2025 Plan of care note Problem: Pain - Adult Goal: Verbalizes/displays adequate comfort level or baseline comfort level Outcome: Progressing Problem: Safety - Adult Goal: Free from fall injury Outcome: Progressing Problem: Discharge Planning Goal: Discharge to home or other facility with appropriate resources Outcome: Progressing Problem: Chronic Conditions and Co-morbidities Goal: Patient's chronic conditions and co-morbidity symptoms are monitored and maintained or improved Outcome: Progressing Problem: Problem Interventions Goal: Promote nutritional intake Outcome: Progressing Problem: Knowledge Deficit Goal: Patient/family/caregiver demonstrates understanding of disease process, treatment plan, medications, and discharge instructions Outcome: Progressing Problem: Potential for Falls Goal: I will remain free of falls Outcome: Progressing Problem: Discharge Barriers Goal: My discharge needs are met Outcome: Progressing [facility] 02-06-2025 Plan of care note Problem: Pain - Adult Goal: Verbalizes/displays adequate comfort level or baseline comfort level Outcome: Progressing Problem: Safety - Adult Goal: Free from fall injury Outcome: Progressing Problem: Discharge Planning Goal: Discharge to home or other facility with appropriate resources Outcome: Progressing Problem: Chronic Conditions and Co-morbidities Goal: Patient's chronic conditions and co-morbidity symptoms are monitored and maintained or improved Outcome: Progressing Problem: Problem Interventions Goal: Promote nutritional intake Outcome: Progressing Problem: Knowledge Deficit Goal: Patient/family/caregiver demonstrates understanding of disease process, treatment plan, medications, and discharge instructions Outcome: Progressing Problem: Potential for Falls Goal: I will remain free of falls Outcome: Progressing Problem: Discharge Barriers Goal: My discharge needs are met Outcome: Progressing [facility] 02-05-2025 Plan of care note Problem: Pain - Adult Goal: Verbalizes/displays adequate comfort level or baseline comfort level Outcome: Progressing Problem: Safety - Adult Goal: Free from fall injury Outcome: Progressing Problem: Discharge Planning Goal: Discharge to home or other facility with appropriate resources Outcome: Progressing Problem: Chronic Conditions and Co-morbidities Goal: Patient's chronic conditions and co-morbidity symptoms are monitored and maintained or improved Outcome: Progressing Problem: Problem Interventions Goal: Promote nutritional intake Outcome: Progressing [facility] 02-05-2025 Plan of care note Problem: Pain - Adult Goal: Verbalizes/displays adequate comfort level or baseline comfort level Outcome: Progressing Problem: Safety - Adult Goal: Free from fall injury Outcome: Progressing Problem: Discharge Planning Goal: Discharge to home or other facility with appropriate resources Outcome: Progressing Problem: Chronic Conditions and Co-morbidities Goal: Patient's chronic conditions and co-morbidity symptoms are monitored and maintained or improved Outcome: Progressing Problem: Problem Interventions Goal: Promote nutritional intake Outcome: Progressing Problem: Knowledge Deficit Goal: Patient/family/caregiver demonstrates understanding of disease process, treatment plan, medications, and discharge instructions Outcome: Progressing Problem: Potential for Falls Goal: I will remain free of falls Outcome: Progressing Problem: Discharge Barriers Goal: My discharge needs are met Outcome: Progressing [facility] 02-05-2025 Plan of care note Problem: Pain - Adult Goal: Verbalizes/displays adequate comfort level or baseline comfort level Outcome: Progressing Flowsheets (Taken 02/05/2025 0506) Verbalizes/displays adequate comfort level or baseline comfort level: Encourage patient to monitor pain and request assistance Assess pain using appropriate pain scale Problem: Safety - Adult Goal: Free from fall injury Outcome: Progressing Problem: Chronic Conditions and Co-morbidities Goal: Patient's chronic conditions and co-morbidity symptoms are monitored and maintained or improved Outcome: Progressing Flowsheets (Taken 02/05/2025 0506) Care Plan - Patient's Chronic Conditions and Co-Morbidity Symptoms are Monitored and Maintained or Improved: Monitor and assess patient's chronic conditions and comorbid symptoms for stability, deterioration, or improvement [facility] 02-04-2025 Note Formatting of this n ote might be different from the original. S/W, assist Patient and daughter requested to speak to S/W about placement. Patient and daughter both indicating they desire placement at [facility], daughter indicated under Medicaid Second choice per patient would be [facility]. Case discussed with TCC. Discussed patient wishes, patient does have [facility] and could admit under her Medicaid. Therapies here rec only [facility]. TCC sending referrals to [facility] and [facility]. Referral placed via [facility]port to [facility]. [facility] 02-04-2025 Note Formatting of this n ote might be different from the original. S/W, assist Patient and daughter requested to speak to S/W about placement. Patient and daughter both indicating they [facility], daughter indicated under Medicaid Second choice per patient would be [facility]. Case discussed with TCC. Discussed patient wishes, patient does have [facility] and could admit under her Medicaid. Therapies here recc only [facility]. TCC sending referrals to [facility] and [facility]. Referral placed via Careport to [facility]. [facility] 02-04-2025 Note Referral placed to [facility] via Careport per TCC request. Await review and response regarding ability to accept. TCC notified. [facility] 02-04-2025 Note Formatting of this n ote might be different from the original. Referral placed to [facility] via Careport per TCC request. Await review and response regarding ability to accept. TCC notified. [facility] 02-04-2025 Note Formatting of this n ote might be different from the original. Referral placed to [facility] via Careport per TCC request. Await review and response regarding ability to accept. TCC notified. [facility] 02-04-2025 Note Formatting of this n ote might be different from the original. -SW met with pt and daughter at bedside. Apparently pt has a Medicaid product available to use. They would like referrals sent to [facility] and [facility]. Pt would go to facility as an intermediate care level. -Tasked MANAGER UTILITY to send those referrals. -horse stud manager to follow for facility responses and assist as needed. -SW to continue to follow as well. [facility] 02-04-2025 Note Formatting of this n ote might be different from the original. -SW met with pt and daughter at bedside. Apparently pt has a Medicaid product available to use. They would like referrals sent to [facility] and [facility]. Pt would go to facility as an intermediate care level. -Tasked MANAGER UTILITY to send those referrals. -horse stud manager to follow for facility responses and assist as needed. -SW to continue to follow as well. [facility] 02-04-2025 Note Nephrology Progress Note Patient: Anson Capps Room number: [id number] Date of Admit: 01/31/2025 LOS: 0 days Admitting physician: Baldomero Gates MD Referring physician: Baldomero Gates MD Assessment/Plan: 1. CKD stage III- baseline Scr 1.1-1.3 mg/dL. Follow up with [facility] as an outpatient. 2. Hyperkalemia - resolved. Continue ACEi. CPK normal. 3. R knee cellulitis after laceration - on abx. 4. DM type II -not a good candidate for SGLT2 therapy given her Apr 2023 admit for pylenephritis/sepsis. 5. PAD with muscle atrophy L leg. 6. HTN - can titrate clonidine or lisinopril. Continued avoidance of nephrotoxins. No objections to discharge from renal standpoint. Will sign off. Follow up with Dr. Montiel post discharge. HPI: Anson Capps is a 84 y.o. female with chronic stable problems: CKD stage III, DM type II, COPD, HTN, depression, PAD with L leg revascularization, Initial admit diagnosis: Open knee wound, right, initial encounter [S81.001A] Interval history/events: no acute events overnight. Frustrated that she can't go to [facility]. BP slightly elevated this morning. Past Medical History: Medical History[1] Medications: MARS reviewed. Scheduled Meds[2] Review of Systems: All other ROS negative except those noted above. Physical Exam: Vitals: 02/03/25201602/03/25202802/04/25 0810 02/04/25 0825 BP: 155/80 (!) 162/64 BP Location: Left arm Patient Position: Lying Pulse: 99 107 (!) 121 Resp: 19 18 16 Temp: 36.9 ?C (98.4 ?F) 36.3 ?C (97.4 ?F) TempSrc: Temporal Temporal SpO2: 95% 100% 94% 95% Weight: Height: Admission weight: 56.7 kg (125 lb) Wt Readings from Last 3 Encounters: 02/03/25 57.2 kg (126 lb) 01/24/25 56.7 kg (125 lb) 01/23/25 56.7 kg (125 lb) General Appearance no acute distress, comfortable appearing, looks stated age. Alert and oriented x 3 HEENT Neck anicteric sclera, moist mucus membranes, normal external ears/nares, no facial edema, supple neck, midline trachea without tracheal deviation Chest symmetric, normal shape/expansion Heart RRR, no audible pericardial rubs Lungs clear to auscultation bilaterally, unlabored respirations without conversational dyspnea, no accessory muscle use, room air Abdomen Skin soft without distension, no palpable organomegaly, normal bowel sounds, no rebound or guarding no rash or subcutaneous nodules, warm and dry skin with good turgor Musculoskeletal No leg edema, R knee immobilizer no salazar catheter present Neurologic no resting tremor. Able to follow commands. Psychiatric mood and affect animated, insight and judgment intact. Memory recall intact LABS: Recent Labs 02/02/250 02/03/25 0002 02/04/25 0048 WBC 10.1 8.5 8.5 HGB 11.8 12.5 13.1 HCT 37.5 41.1 40.9 MCV 94.2 96.3 93.8 PLT 385 363 400 Recent Labs 02/02/250 02/03/25 0002 02/04/25 0048 NA 143 141 141 141 K 4.6 4.8 4.8 4.6 CL 111* 110* 109* 109* CO2 21* 21* 22* 22* BUN 48* 48* 46* 49* CREATININE 1.24* 1.24* 1.22* 1.13* GLUCOSE 44* 216* 217* 141* CALCIUM 9.0 8.5* 8.5* 9.2 PHOS -- 2.3 -- ANIONGAP 11 10 10 10 Lab Results Component Value Date CALCIUM 9.2 02/04/2025 PHOS 2.3 02/03/2025 Diagnostic Studies: CXR: reviewed in PACS. Personally reviewed available data [labs, MARS, radiologic studies, and electronic records]. Please call with any questions. Pager: [phone] Office: [phone]. [1] Past Medical History: Diagnosis Date Asthma CAD (coronary artery disease) Depression Diabetes (HCC) GERD (gastroesophageal reflux disease) Hyperlipidemia Hypertension [2] atorvastatin, 10 mg, Oral, Nightly cloNIDine, 0.2 mg, Oral, Daily clopidogrel, 75 mg, Oral, Daily DULoxetine, 30 mg, Oral, Daily enoxaparin, 40 mg, SubCUTAneous, Daily insulin lispro, 0-12 Units, SubCUTAneous, TID WC And insulin lispro, 0-12 Units, SubCUTAneous, Nightly ipratropium-albuterol, 3 mL, Nebulization, TID lisinopril, 5 mg, Oral, Daily mometasone-formoterol, 2 puff, Inhalation, BID vancomycin, 750 mg, IntraVENous, q24h [facility] 02-04-2025 Note Formatting of this n ote might be different from the original. -Was informed by bedside RN of patient want to go to [facility]. -PT/OT recommending home with [facility]. Pt will not qualify for SNF. Pt also refused to work with PT this morning. -Informed pt and daughter Brigitte ([phone]) of this information. Both were extremely unhappy that we can't send her to [facility] for SNF. Informed both of them that pt could pay out of pocket for SNF and privately pay for home health aids, both who stated they can not afford. Brigitte and pt both stated they are in the process of setting up respite care at [facility] through [facility], a process that they started last week before this admission. Instructed both pt and daughter to continue pursuing that process. Both verbalized understanding. -Daughter Brigitte was so unhappy that she stated I will not sampler pickup my mother once she is discharged, due to her feeling pt is not capable for caring for herself. Brigitte states the family is tired and need a break. Again instructed Brigitte to follow through with the respite plans. -This CM did mistakenly tell the pt and daughter of pt's Medicare rights with appealing her discharge. Both stated they are planning on appealing the discharge. However, pt is in observation status, and can not appeal her discharge. A patient can not appeal while in observation status. She will have to go home with [facility] once discharged. Informed pt of this CM's mistake and informed her she will not be able to appeal. She verbalized understanding. -Discharge plan will be home with [facility] with pt and family finishing the respite care process on their own. -horse stud manager to follow and assist as needed. [facility] 02-04-2025 Note Formatting of this n ote might be different from the original. -Was informed by bedside RN of patient want to go to [facility]. -PT/OT recommending home with [facility]. Pt will not qualify for SNF. Pt also refused to work with PT this morning. -Informed pt and daughter Brigitte ([phone]) of this information. Both were extremely unhappy that we can't send her to [facility] for SNF. Informed both of them that pt could pay out of pocket for SNF and privately pay for home health aids, both who stated they can not afford. Brigitte and pt both stated they are in the process of setting up respite care at [facility] through [facility], a process that they started last week before this admission. Instructed both pt and daughter to continue pursuing that process. Both verbalized understanding. -Daughter Brigitte was so unhappy that she stated I will not sampler pickup my mother once she is discharged, due to her feeling pt is not capable for caring for herself. Brigitte states the family is tired and need a break. Again instructed Brigitte to follow through with the respite plans. -This CM did mistakenly tell the pt and daughter of pt's Medicare rights with appealing her discharge. Both stated they are planning on appealing the discharge. However, pt is in observation status, and can not appeal her discharge. A patient can not appeal while in observation status. She will have to go home with [facility] once discharged. Informed pt of this CM's mistake and informed her she will not be able to appeal. She verbalized understanding. -Discharge plan will be home with [facility] with pt and family finishing the respite care process on their own. -horse stud manager to follow and assist as needed. [facility] 02-04-2025 Note Care Management Prog ress Note Short Medical why still here: IV ATB, breathing treatments Planned Discharge Disposition: Home Health Services. [facility] following. Barriers/Today we still Wait: Administering IV medications, Clinical stability, Symptomatic control Discharge plan is home with [facility]. horse stud manager to follow and assist as needed. Length of Stay (Days): 0 GMLOS: 2.6 [facility] 02-04-2025 Note Formatting of this n ote might be different from the original. Care Management Progress Note Short Medical why still here: IV ATB, breathing treatments Planned Discharge Disposition: Home Health Services. [facility] following. Barriers/Today we still Wait: Administering IV medications, Clinical stability, Symptomatic control Discharge plan is home with [facility]. horse stud manager to follow and assist as needed. Length of Stay (Days): 0 GMLOS: 2.6 [facility] 02-04-2025 Note Formatting of this n ote might be different from the original. Care Management Progress Note Short Medical why still here: IV ATB, breathing treatments Planned Discharge Disposition: Home Health Services. C following. Barriers/Today we still Wait: Administering IV medications, Clinical stability, Symptomatic control Discharge plan is home with [facility]. horse stud manager to follow and assist as needed. Length of Stay (Days): 0 GMLOS: 2.6 T [facility] 02-04-2025 Note Pharmacy to Dose Van comycin - Progress Note Recent Labs 02/02/25 0050 02/03/25 0002 02/04/25 0048 BUN 48* 48* 46* 49* CREATININE 1.24* 1.24* 1.22* 1.13* Lab Results Component Value Date VANCGIONDOM 10.8 (L) 05/12/2023 VANCOTROUGH 11.8 02/04/2025 Doses, serum creatinine, and vancomycin levels interfaced automatically to [email or web address] and data has been analyzed and interpreted. Infectious Diagnosis: ssti Est CrCl: 30.4 mL/min (Cockcroft-Gault) Assessment: Current regimen vancomycin 750 mg every 24 hours. Predicted AUC = 468 mg/L*hr (goal 400-600 mg/L*hr) Plan: Is the current dose therapeutic? [x] Yes - obtain next level on 02/11/25 unless predicted AUC is sub-/supra-therapeutic or change in serum creatinine. [] No - Trend serum creatinine. Trend AUC using Bayesian Modeling. Orders placed. DATE: 02/04/25 TIME: 6:38 AM Maddi Najera PharmD Clinical Pharmacist Available via Secure Chat [facility] 02-03-2025 Plan of care note Problem: Pain - Adult Goal: Verbalizes/displays adequate comfort level or baseline comfort level Outcome: Progressing Problem: Safety - Adult Goal: Free from fall injury Outcome: Progressing Problem: Discharge Planning Goal: Discharge to home or other facility with appropriate resources Outcome: Progressing Problem: Chronic Conditions and Co-morbidities Goal: Patient's chronic conditions and co-morbidity symptoms are monitored and maintained or improved Outcome: Progressing Problem: Problem Interventions Goal: Promote nutritional intake Outcome: Progressing T [facility] 02-03-2025 Plan of care note Problem: Pain - Adult Goal: Verbalizes/displays adequate comfort level or baseline comfort level Outcome: Progressing Problem: Safety - Adult Goal: Free from fall injury Outcome: Progressing Problem: Discharge Planning Goal: Discharge to home or other facility with appropriate resources Outcome: Progressing Problem: Chronic Conditions and Co-morbidities Goal: Patient's chronic conditions and co-morbidity symptoms are monitored and maintained or improved Outcome: Progressing Problem: Problem Interventions Goal: Promote nutritional intake Outcome: Progressing [facility] 02-03-2025 Note Nephrology Progress Note Patient: Anson Capps Room number: [id number] Date of Admit: 01/31/2025 LOS: 0 days Admitting physician: Baldomero Gates MD Referring physician: Baldomero Gates MD Assessment/Plan: 1. CKD stage III- baseline Scr 1.1-1.3 mg/dL. Follow up with [place] [facility] as an outpatient. 2. Hyperkalemia - mild and apears resolved. Continue ACEi. CPK normal. 3. R knee cellulitis after laceration - on abx. 4. DM type II -not a good candidate for SGLT2 therapy given her Apr 2023 admit for pylenephritis/sepsis. 5. PAD with muscle atrophy L leg. Continued avoidance of nephrotoxins. Medication dose adjustment: CrCl < 50 ml/min Will follow along as directed. No objections to discharge from renal standpoint. HPI: Anson Capps is a 84 y.o. female with chronic stable problems: CKD stage III, DM type II, COPD, HTN, depression, PAD with L leg revascularization, Initial admit diagnosis: Open knee wound, right, initial encounter [S81.001A] Interval history/events: feeling well. Notes some redness along R arm after Vancomycin infusion that improved with slowing down rate/Benadryl. IVF stopped. Tolerating diet. Daughter at bedside. Past Medical History: Medical History[1] Medications: MARS reviewed. Scheduled Meds[2] Review of Systems: All other ROS negative except those noted above. Physical Exam: Vitals: 02/03/25 0716 02/03/25 0844 02/03/25 1140 02/03/25 1320 BP: 132/89 BP Location: Left arm Patient Position: Lying Pulse: 103 102 110 Resp: Temp: 36.7 ?C (98.1 ?F) TempSrc: Temporal SpO2: 96% 96% 95% Weight: 57.2 kg (126 lb) Height: Admission weight: 56.7 kg (125 lb) Wt Readings from Last 3 Encounters: 02/03/25 57.2 kg (126 lb) 01/24/25 56.7 kg (125 lb) 01/23/25 56.7 kg (125 lb) General Appearance no acute distress, comfortable appearing, looks stated age. Alert and oriented x 3 HEENT Neck anicteric sclera, moist mucus membranes, normal external ears/nares, no facial edema supple neck, midline trachea without tracheal deviation Chest symmetric, normal shape/expansion, no chest wall/sternal tenderness Heart RRR, no audible pericardial rubs Lungs clear to auscultation bilaterally, unlabored respirations without conversational dyspnea, no accessory muscle use Abdomen Skin soft without distension, no palpable organomegaly, normal bowel sounds, no rebound or guarding no rash or subcutaneous nodules, warm and dry skin with good turgor Musculoskeletal no synovitis or joint effusions noted, R knee immobilizer/dressing no salazar catheter present Neurologic no resting tremor. Able to follow commands. Psychiatric mood and affect animated, insight and judgment intact. Memory recall intact LABS: Recent Labs 02/02/25 0050 02/03/25 0002 WBC 10.1 8.5 HGB 11.8 12.5 HCT 37.5 41.1 MCV 94.2 96.3 PLT 385 363 Recent Labs 02/01/25 1512 02/02/25 0050 02/03/25 0002 NA -- 143 141 141 K 5.3* 4.6 4.8 4.8 CL -- 111* 110* 109* CO2 -- 21* 21* 22* BUN -- 48* 48* 46* CREATININE -- 1.24* 1.24* 1.22* GLUCOSE -- 44* 216* 217* CALCIUM -- 9.0 8.5* 8.5* PHOS -- -- 2.3 ANIONGAP -- 11 10 10 Lab Results Component Value Date CALCIUM 8.5 (L) 02/03/2025 CALCIUM 8.5 (L) 02/03/2025 PHOS 2.3 02/03/2025 Diagnostic Studies: CXR: reviewed in PACS. Personally reviewed available data [labs, MARS, radiologic studies, and electronic records]. Please call with any questions. Pager: [phone] Office: [phone]. [1] Past Medical History: Diagnosis Date Asthma CAD (coronary artery disease) Depression Diabetes (HCC) GERD (gastroesophageal reflux disease) Hyperlipidemia Hypertension [2] atorvastatin, 10 mg, Oral, Nightly cloNIDine, 0.2 mg, Oral, Daily clopidogrel, 75 mg, Oral, Daily DULoxetine, 30 mg, Oral, Daily enoxaparin, 40 mg, SubCUTAneous, Daily insulin lispro, 0-12 Units, SubCUTAneous, TID WC And insulin lispro, 0-12 Units, SubCUTAneous, Nightly ipratropium-albuterol, 3 mL, Nebulization, TID lisinopril, 5 mg, Oral, Daily mometasone-formoterol, 2 puff, Inhalation, BID vancomycin, 750 mg, IntraVENous, q24h [facility] 02-03-2025 Consult note Formatting of th is note is different from the original. Images from the original note were not included. Pharmacy Managed Vancomycin Dosing Service Consult Note Consult Date: 02/03/25 Patient Name: Anson Capps Allergies: Iron, Pregabalin, Tetracyclines & related, Amlodipine, and Codeine Age: 84 y.o. Sex: female Estimated body mass index is 24.61 kg/m as calculated from the following: Height as of this encounter: 1.524 m (5'). Weight as of this encounter: 57.2 kg (126 lb). Lab Results Component Value Date CREATININE 1.22 (H) 02/03/2025 CREATININE 1.24 (H) 02/03/2025 BUN 46 (H) 02/03/2025 BUN 48 (H) 02/03/2025 WBC 8.5 02/03/2025 WBC 10.1 02/02/2025 Calculated CrCl: 30 mL/min Consulted By: Dr. Gates Infectious Diagnosis: SSTI (AUC Goal 400-600 mg/L*hr) Antimicrobials: Patient recently received an antibiotic (last 12 hours) Date/Time Action Medication Dose Rate 02/03/25 1337 New Bag ceFAZolin (Ancef) 1,000 mg in sodium chloride 0.9 % 50 mL IVPB 1,000 mg 100 mL/hr 02/03/25 0604 New Bag ceFAZolin (Ancef) 1,000 mg in sodium chloride 0.9 % 50 mL IVPB 1,000 mg 100 mL/hr Assessment/Plan: Doses, serum creatinine, and vancomycin levels interfaced automatically to [email or web address] and data has been analyzed and interpreted. Start Vancomycin 750 mg Q 24 hours based on patient age, weight, renal function, and infectious diagnosis (13 mg/kg). Predicted AUC = 475 mg/L*hr (goal 400-600 mg/L*hr) Will assess level on 02/04 and adjust as appropriate. Trend serum creatinine. Orders placed. Thank you for this consult. Please secure text or call with questions. DATE: 02/03/25 TIME: 2:39 PM Viv Crane RPh Clinical Pharmacist Available via Secure Chat T [facility] 02-03-2025 Note Hospitalist Progress Note 02/03/[id number]: Please page me ([phone]) for patient care issues. [phone]: Please page [facility] night Hospitalist for any issues. Subjective: Admit Date: 01/31/2025 PCP: Jamie Schroeder Room#: 232-04/232-04 A Interval History: Patient is sitting on the bed, knee pain is better, tolerating p.o. diet. Having good bowel movements. No other significant overnight issues. Adult diet Regular; No Concentrated sweets @[id number]@ 24HR INTAKE/OUTPUT: Intake/Output Summary (Last 24 hours) at 02/03/2025 1419 Last data filed at 02/03/2025 1337 Gross per 24 hour Intake 2110.01 ml Output -- Net 2110.01 ml Past Medical History: Medical History[1] LABS: CBC: Recent Labs 01/31/25 1721 02/02/25 0050 02/03/25 0002 WBC 9.5 10.1 8.5 RBC 4.26 3.98 4.27 HGB 12.7 11.8 12.5 HCT 39.2 37.5 41.1 MCV 92.0 94.2 96.3 RDW 13.5 13.5 13.5 PLT 417 385 363 BMP: Recent Labs 01/31/25 17202/01/25 1512 02/02/25 0050 02/03/25 0002 NA 137 -- 143 141 141 K 5.2* 5.3* 4.6 4.8 4.8 CL 102 -- 111* 110* 109* CO2 21* -- 21* 21* 22* BUN 63* -- 48* 48* 46* CREATININE 1.13* -- 1.24* 1.24* 1.22* GLUCOSE 112 -- 44* 216* 217* CALCIUM 9.8 -- 9.0 8.5* 8.5* ANIONGAP 14* -- 11 10 10 LIVER PROFILE:No results for input(s): AST, ALT, BILITOT, ALKPHOS, PROT in the last 72 hours. No lab exists for component: LABALBU PT/INR: No results for input(s): PROTIME, INR in the last 72 hours. CARDIAC ENZYMES: No results for input(s): TROPONINI in the last 72 hours. Procalcitonin: Lab Results Component Value Date PROCAL 0.05 01/31/2025 COVID-19 PCR: No results for input(s): COVID19 in the last 72 hours. Objective: Vitals: BP 132/89 (BP Location: Left arm, Patient Position: Lying) Pulse 110 Temp 36.7 ?C (98.1 ?F) (Temporal) Resp 16 Ht 5' (1.524 m) Wt 126 lb (57.2 kg) SpO2 95% BMI 24.61 kg/m? Pulse Ox: SpO2 Av.4 % Min: 94 % Max: 96 % Supplemental O2: General appearance: No apparent distress, appears stated age and cooperative with exam HEENT: Normal cephalic, atraumatic without obvious deformity. Pupils equal, round, and reactive to light. Extra ocular muscles intact. Conjunctivae/corneas clear. Neck: Supple, with full range of motion. No jugular venous distention. Trachea midline. No lymphadenopathy. Respiratory: Normal respiratory effort. Clear to auscultation, bilaterally without Rales/Wheezes/Rhonchi. Cardiovascular: Regular rate and rhythm with normal S1/S2 without murmurs, rubs or gallops. Abdomen: Soft, non-tender, non-distended with normal bowel sounds. No rebound or guarding. Musculoskeletal: Right knee dressing is in place. Skin: Neurologic: Neurovascularly intact without any focal sensory/motor deficits. Cranial nerves: II-XII intact, grossly non-focal. Medications: Continuous Meds[2] Scheduled Meds[3] Assessment Right knee wound status post fall. Hyperkalemia. History of: Hypertension Hyperlipidemia. Diabetes mellitus type 2. Coronary artery disease on Plavix. Gastroesophageal reflux disease Depression/anxiety. Septic shock secondary to urinary tract infection in 2022. Chronic kidney disease baseline creatinine 1.2. Plan: Right knee dressing is in place, continues to complain of knee pain. Discussed with ID stewardship changed antibiotics to vancomycin on 02/02. Orthopedics evaluated the patient-ruled out joint infection Wound cultures are pending Hyperkalemia resolved Home medications reviewed and resumed appropriately. Follow-up CBC BMP ordered PT OT evaluation. DVT prophylaxis: Lovenox subcu daily. Disposition: Still on IV antibiotics Pending orthopedics consult. Possible discharge in next 1 to 2 days. -am labs, replace lytes prn -increase activity -DVT prophylaxis: [] Lovenox [] Heparin [] SCDs [x] Encourage ambulation [] Already on Anticoagulation Advance Directive: Full Code Discharge planning: SHARAD Gates MD Division of Hospitalist Medicine Inpatient Medical Services/[facility] PAGER: [phone] [1] Past Medical History: Diagnosis Date Asthma CAD (coronary artery disease) Depression Diabetes (HCC) GERD (gastroesophageal reflux disease) Hyperlipidemia Hypertension [2] sodium chloride, 50 mL/hr, Last Rate: 50 mL/hr (02/03/25 1337) [3] atorvastatin, 10 mg, Oral, Nightly ceFAZolin, 1,000 mg, IntraVENous, q8h cloNIDine, 0.2 mg, Oral, Daily clopidogrel, 75 mg, Oral, Daily DULoxetine, 30 mg, Oral, Daily enoxaparin, 40 mg, SubCUTAneous, Daily insulin lispro, 0-12 Units, SubCUTAneous, TID WC And insulin lispro, 0-12 Units, SubCUTAneous, Nightly ipratropium-albuterol, 3 mL, Nebulization, TID lisinopril, 5 mg, Oral, Daily [facility] 02-03-2025 Note Formatting of this n ote might be different from the original. S/W, Call placed again to [facility] to request increased aide help in the home. I did speak with coverage with this request, they will forward the request to patient Jonas [place]. [facility] 02-03-2025 Note Formatting of this n ote might be different from the original. S/W, MARYCRUZ Call placed again to [facility] to request increased aide help in the home. I did speak with coverage with this request, they will forward the request to patient Jonas [place]. [facility] 02-03-2025 Note Nutrition Assessment Type and Reason for Visit: Initial, Wound (DT referral 02/02) Nutrition Recommendations/Plan: Continue current diet: regular, no concentrated sweets. Will monitor need for additional CHO restriction based on glucose levels. Per MNT protocol, will initiate Ensure Max once daily at lunch per pt preference. 11 oz provides 150 kcals, 30 g protein. Monitor weight, labs, skin assessment, po intake, GI sx, fluid status/edema, and overall nutritional status. RD will continue to follow. Malnutrition Assessment: Malnutrition Status: At risk for malnutrition (Comment) (increased needs due to R knee wound) Context: Acute Illness Findings of the 6 clinical characteristics of malnutrition: Energy Intake: No significant decrease in energy intake Weight Loss: No significant weight loss Body Fat Loss: No significant body fat loss Muscle Mass Loss: Moderate muscle mass loss Calf (gastrocnemius) (L side only, R knee with large wound dressing and brace) Fluid Accumulation: No significant fluid accumulation Launching Pad Mechanic Strength: Not Performed Nutrition Assessment: Pt is an 84 y.o. female with PMHx GERD, HTN, CAD, HLD, T2DM, CKD who presented to the emergency department 01/31 with chief complaint of right knee wound check. She had a mechanical fall onto carpet and sustained a large laceration to the right knee. Pt states she had sutures placed to her right knee at this ED approx 1 week ago. Pt felt that it was improving but now has gotten more red painful and had a little bit of yellowish drainage from the medial aspect of the wound. Wound care and ortho following. Per neph, pt initially hyperkalemic on admit, now resolved. Current diet is regular, no concentrated sweets. Visited with pt this AM. She reported very good appetite and eating well. She had the western scramble, milk, and yogurt for breakfast this AM. At home she reports eating a small breakfast and lunch then having a larger meal for dinner. She said she tries to eat a lot of protein and also likes fruits and vegetables. She also consumes Premier protein drinks 1-2 times/day. She was agreeable to receving Ensure Max while admitted. Denied GI sx, denied chewing/swallowing difficulty. She reported her UBW as 125-130# and said she felt she was around this weight before her fall occurred. Standing scale weight of 126# obtained today by RN. NFPE performed, noted moderate muscle wasting in L calf, knee. Estimated Daily Nutrient Needs: Energy Requirements Based On: Kcal/kg Weight Used for Energy Requirements: [place] Weight for Energy Calculation (kg): 45 kg Total Energy Requirements (kcals/day): 5583-4945 (28-30) Weight Used for Protein Requirements: [place] Weight in Kg Used for Protein Requirements: 45 kg Estimated Total Protein (g/day): 50-59 (1.1-1.3) (monitor renal function) Estimated Daily Total Fluid (ml/day): per MD Nutrition Related Findings: Samm 20, GI WDL per flowsheet, last BM 02/02. Wound Type: (laceration to R knee with sutures) Labs and meds reviewed: Scheduled Meds[1] Continuous Meds[2] Lab Results Component Value Date GLUCOSE 217 (H) 02/03/2025 GLUCOSE 216 (H) 02/03/2025 CALCIUM 8.5 (L) 02/03/2025 CALCIUM 8.5 (L) 02/03/2025 NA 141 02/03/2025 NA 141 02/03/2025 K 4.8 02/03/2025 K 4.8 02/03/2025 CO2 22 (L) 02/03/2025 CO2 21 (L) 02/03/2025 CL 109 (H) 02/03/2025 CL 110 (H) 02/03/2025 BUN 46 (H) 02/03/2025 BUN 48 (H) 02/03/2025 CREATININE 1.22 (H) 02/03/2025 CREATININE 1.24 (H) 02/03/2025 Lab Results Component Value Date WBC 8.5 02/03/2025 HGB 12.5 02/03/2025 HCT 41.1 02/03/2025 MCV 96.3 02/03/2025 PLT 363 02/03/2025 Lab Results Component Value Date ALT 27 05/18/2023 AST 52 (H) 05/18/2023 ALKPHOS 67 05/18/2023 BILITOT 0.4 05/18/2023 Recent Labs 02/02/25 0806 02/02/25 1309 02/02/25 1755 02/02/25 2018 02/03/25 0608 02/03/25 1158 POCGLU 136* 151* 118* 141* 123* 178* No results found for: HGBA1C No results found for: VITD25 No results found for: CHOL, LDL, HDL, TRIG Current Nutrition Therapies: Adult diet Regular; No Concentrated sweets Current Oral Intake Average Meal Intake: 76-100% (x 1 per flowsheet. Pt reports eating well, good appetite.) Average Supplements Intake: None Ordered Anthropometric Measures: Height: 152.4 cm (5') Current Body Weight: 57.2 kg (126 lb) (02/03/25) Weight Source: Standing Scale Admission Body Weight: 56.7 kg (125 lb) (stated 01/31/25) Usual Body Weight: 60.3 kg (133 lb) (125-130# per pt. Per chart review: 130# 07/30, 132# 08/04, 124# 08/13, 120# 08/23, 133# 09/03.) % Weight Change (Calculated): -5.3 [place] Body Weight (lbs) (Calculated): 100 lbs [place] Body Weight (Kg) (Calculated): 45 kg BMI (kg/m2) (Calculated): 24.6 Weight Adjustment For: No Adjustment BMI Categories: Normal Weight (BMI 22.0 to 24.9) age over 65 Nutrition Diagnosis: Increased nutrient needs related to increase demand for energy/nu (more content not included)... [facility] 02-03-2025 Note Formatting of this n ote is different from the original. spoke with pt's dtr Ambreen -- she mentioned that pt is with [facility] and was working on getting more services set up -- pt lives alone. Currently she has an aide on Mon and Fri. Msg sent to [facility] for someone to reach out to to check on status and to leave a private duty list at bedside in case family would have to go that route. Start PACC Note Home Health Referral Educated patient's dtr Ambreen on Home Care and services available. Patient offered choice of available HHC and agreeable to RN PT OT DISABILITY CASE MANAGER SW services with [facility] - Home Care. Care Types: None Isolation Precautions: No active isolations Social Determinates of Health: Tobacco Use: Low Risk (02/01/2025) Patient History Smoking Tobacco Use: Never Smokeless Tobacco Use: Never Passive Exposure: Not on file Social History Substance and Sexual Activity Alcohol Use Not Currently Social History Substance and Sexual Activity Drug Use Never Does the patient have any financial resource strain? No Does the patient have any food insecurities? No Does the patient have any housing instabilities? No If any of the above is noted as yes - consider a BOREMATIC OPERATOR evaluation once the patient returns home. START PATIENT REGISTRATION INFORMATION Order Information Order Signing Physician: Baldomero Gates MD Service Ordered RN ?: Yes Service Ordered PT ?: Yes Service Ordered OT ?: Yes Service Ordered ST ?: No Service Ordered BOREMATIC OPERATOR?:Yes Service Ordered DISABILITY CASE MANAGER?: Yes Following Physician: Jamie Schroeder Following Physician Overseeing Physician: Jamie Schroeder (Required for Residents only) Agreeable to Follow? Yes Date/Time of Call 02/03/25 11:12 AM, Spoke with: Anaya [facility] [place] Same Day SOC?: No Primary Care Physician: Jamie Schroeder Primary Care Physician Primary Care Physician Address: [address] [facility] [address] Visit Instructions: N/A Service Discharge Location Type: Home with Home Care Service Facility Name: N/A Service Floor Facility: N/A Service Room No: N/A Demographics Patient Last Name: Mohsen Patient First Name: Anson Language/Communication Barrier: n/a Service Address: [address] [place] Service City: [facility] ST: [place] Service [place]IP: [address] Service (home) Other phone numbers: No relevant phone numbers on file. Emergency Contact: Extended Emergency Contact Information Primary Emergency Contact: Belén Daiy Mobile Relation: Daughter Secondary Emergency Contact: MichaelGabriel Mobile Relation: Daughter Admission Information Admit Date: 01/31/2025 Patient status at discharge: Inpatient Admitting Diagnosis: Open knee wound, right, initial encounter [S81.001A] Caregiver Information Caregiver First Name: Ambreen Caregiver Last Name: Kirsty Caregiver Relationship to Patient dtr Caregiver Caregiver Notes: N/A [employer] List No END PATIENT REGISTRATION INFORMATION Pt Home Health goal rehab at home COVID Status 1. Do you have any upper respiratory symptoms (cough, SOB, Fever)? No 2. Have you been exposed to anyone with COVID-19 Virus? No Answer only if pending or positive for COVID-19? 1. Agreeable to wear PPE at each visit? No 2. Is the hospital supplying them with PPE upon Discharge? No Start PACC Summary General Report/ Additional Comments N/a Discharge Date: pending Referral Source-PACC: (Hospital/Unit): [facility] / 232/ A End PACC Note [facility] 02-03-2025 Note Formatting of this n ote is different from the original. spoke with pt's dtr Ambreen -- she mentioned that pt is with [facility] and was working on getting more services set up -- pt lives alone. Currently she has an aide on Mon and Fri. Msg sent to [facility] for someone to reach out to to check on status and to leave a private duty list at bedside in case family would have to go that route. Start PACC Note Home Health Referral Educated patient's dtr Ambreen on Home Care and services available. Patient offered choice of available HHC and agreeable to RN PT OT DISABILITY CASE MANAGER SW services with [facility] - Home Care. Care Types: None Isolation Precautions: No active isolations Social Determinates of Health: Tobacco Use: Low Risk (02/01/2025) Patient History Smoking Tobacco Use: Never Smokeless Tobacco Use: Never Passive Exposure: Not on file Social History Substance and Sexual Activity Alcohol Use Not Currently Social History Substance and Sexual Activity Drug Use Never Does the patient have any financial resource strain? No Does the patient have any food insecurities? No Does the patient have any housing instabilities? No If any of the above is noted as yes - consider a BOREMATIC OPERATOR evaluation once the patient returns home. START PATIENT REGISTRATION INFORMATION Order Information Order Signing Physician: Baldomero Gates MD Service Ordered RN ?: Yes Service Ordered PT ?: Yes Service Ordered OT ?: Yes Service Ordered ST ?: No Service Ordered BOREMATIC OPERATOR?:Yes Service Ordered DISABILITY CASE MANAGER?: Yes Following Physician: Jamie Schroeder Following Physician Overseeing Physician: Jamie Schroeder (Required for Residents only) Agreeable to Follow? Yes Date/Time of Call 02/03/25 11:12 AM, Spoke with: Anaya Hoffman Same Day SOC?: No Primary Care Physician: Jamie Schroeder Primary Care Physician Primary Care Physician Address: [address] [place] [address] / [facility] [address] Visit Instructions: N/A Service Discharge Location Type: Home with Home Care Service Facility Name: N/A Service Floor Facility: N/A Service Room No: N/A Demographics Patient Last Name: Mohsen Patient First Name: Anson Language/Communication Barrier: n/a Service Address: [address] [place] Service City: [facility] ST: [place] Service ZIP: [address] Service (home) Other phone numbers: No relevant phone numbers on file. Emergency Contact: Extended Emergency Contact Information Primary Emergency Contact: Ambreen Dai Mobile Relation: Daughter Secondary Emergency Contact: Gabriel Dias Mobile Relation: Daughter Admission Information Admit Date: 01/31/2025 Patient status at discharge: Inpatient Admitting Diagnosis: Open knee wound, right, initial encounter [S81.001A] Caregiver Information Caregiver First Name: Ambreen Caregiver Last Name: Kirsty Caregiver Relationship to Patient dtr Caregiver Caregiver Notes: N/A [employer] List No END PATIENT REGISTRATION INFORMATION Pt Home Health goal rehab at home COVID Status 1. Do you have any upper respiratory symptoms (cough, SOB, Fever)? No 2. Have you been exposed to anyone with COVID-19 Virus? No Answer only if pending or positive for COVID-19? 1. Agreeable to wear PPE at each visit? No 2. Is the hospital supplying them with PPE upon Discharge? No Start PACC Summary General Report/ Additional Comments N/a Discharge Date: pending Referral Source-PACC: (Hospital/Unit): [facility] / 232-04/232-04 A End PACC Note [facility] 02-03-2025 Hospital Discharge instructions Tiffany Rolle RN - 02/03/2025 10:48 AM EDT Discharging to Facility/ Agency Name: [facility] Address: [address] [place] [address] amilo Guardado RN - 02/03/2025 10:48 AM EDT Images from the original note were not included. Continuity of Care Form Patient Name: Anson Capps : 1940 Admit date: 01/31/2025 Discharge date: 02/07/2025 Code Status Order: Full Code Advance Directives: N Admitting Physician: Brando Frank MD PCP: Jamie Schroeder Discharging Nurse: Noel Discharging Hospital Unit/Room#: 232-04/232-04 A Discharging Unit Phone Number: [phone] Emergency Contact: Extended Emergency Contact Information Primary Emergency Contact: KirstyAmbreen Mobile Relation: Daughter Secondary Emergency Contact: Gabriel Dias Mobile Relation: Daughter Past Surgical History: Past Surgical History: Procedure Laterality Date HYSTERECTOMY SHOULDER SURGERY Right Immunization History: Immunization History Administered Date(s) Administered Covid-19, Moderna Bivalent Booster, (Age 6y-11y) 06/25/2022 Moderna SARS-CoV-2 Vaccination 11/23/2021 Pfizer SARS-CoV-2 Vaccination 10/14/2020, 11/06/2020, 07/04/2021 Tdap 01/23/2025 Active Problems: Medical Problems Problem List * (Principal) Open knee wound, right, initial encounter Septic shock (HCC) Isolation/Infection: No active isolations No active infections Nurse Assessment: Last Vital Signs: BP 132/89 (BP Location: Left arm, Patient Position: Lying) Pulse 102 Temp 36.7 C (98.1 F) (Temporal) Resp 16 Ht 1.524 m (5') Wt 56.7 kg (125 lb) SpO2 96% BMI 24.41 kg/m Last documented pain score (0-10 scale): Last Weight: Wt Readings from Last 1 Encounters: 01/31/25 56.7 kg (125 lb) Mental Status: ITALIA Patient Mental Status: oriented and alert IV Access: ITALIA IV Access: None Nursing Mobility/ADLs: Walking Minimal assistance Transfer Minimal assistance Bathing Minimal assistance Dressing Minimal assistance Toileting Minimal assistance Feeding Independent Party Bus Driver Minimal assistance Med Delivery yes Wound Care Documentation and Therapy: Wound/Incision 01/31/25 Other (comment) Knee Anterior;Right (Active) Site Assessment Unable to assess 02/01/252199 Soraya-Wound Assessment Unable to assess 02/01/252199 Odor None 02/01/252199 Primary Dressing Non adherent;Gauze 02/01/25814 Secondary Dressing ABD 01/31/252130 Secured with Kerlex 01/31/252130 Dressing Status Clean, dry & intact 02/01/252199 State of Healing Closed wound edges 02/01/25814 Number of days: 2 Elimination: Continence: Bowel: yes Bladder: yes Urinary Catheter: None Colostomy/Ileostomy/Ileal Conduit: None Date of Last BM: 02/04/25 Intake/Output Summary (Last 24 hours) at 02/03/2025 1048 Last data filed at 02/03/2025 0632 Gross per 24 hour Intake 1925.01 ml Output -- Net 1925.01 ml I/O last 3 completed shifts: In: 3230 (57 mL/kg) [P.O.:950; I.V.:1980 (34.9 mL/kg); IV Piggyback:300] Out: 350 (6.2 mL/kg) [Urine:350 (0.2 mL/kg/hr)] Weight: 56.7 kg Safety Concerns: history of falls (last 30 days) and at risk for falls Impairments/Disabilities: none Nutrition Therapy: Current Nutrition Therapy: Oral diet: general Routes of Feeding: oral Liquids: thin liquids Daily Fluid Restriction: no Last Modified Barium Swallow with Video (Video Swallowing Test): not done Treatments at the Time of Hospital Discharge: Respiratory Treatments: dulera inhaler BID, albuterol inhaler q4h PRN, duo-nebs BID, NaCl 3% hypertonic nebs TID, HFCWO- BID, OPEP- TID Oxygen Therapy: is not on home oxygen therapy. Ventilator: No ventilator support Rehab Therapies: physical therapy, occupational therapy, nursing, and aide Weight Bearing Status/Restrictions: no restriction Other Medical Equipment (for information only, NOT a DME order): wheeled walker Other Treatments: Patient's personal belongings (please select all that are sent with patient): glasses, dentures upper&lower RN SIGNATURE: MANAGEMENT/SOCIAL WORK SECTION Inpatient Status Date: 01/31/25 Discharging to Facility/ Agency Name: [facility] Address: [address] [place] [id number] Fax: Dialysis Facility (if applicable) Name: Address Chemical Treatment Plant Technician/Gas Engine Mechanic signature: ICIAN SECTION Name: Ansno Capps Prognosis: good Condition at Discharge: stable Rehab Potential (if transferring to Rehab): good Recommended Labs or Other Treatments After Discharge: continue pt/ot The individual is being admitted to a nursing facility directly from an [facility] or a unit of a [facility] that is not operated by or licensed by [facility] under section 5119.14 or 5160-3-15.1 5 The individual requires the level of services provided by a nursing facility for the condition for which he or she was treated in the hospital and, Physician Certification: I certify the above information and transfer of Anson Capps is necessary for the continuing treatment of the diagnosis listed and that she requires half-way facility for less than 30 days. Update Admission H&P: No change in H&P PHYSICIAN SIGNATURE: documented in this encounter [facility] 02-03-2025 Note Care Management Prog ress Note Short Medical why still here: Laceration to R knee cellulitis, Nephrology following for CKD stage 3, IV ATB Planned Discharge Disposition: Home Health Services Barriers/Today we still Wait: Clinical stability, Information Technology Specialist Administering IV medications Was informed in rounds that pt's does not have infected joint. Pt to have knee immobilizer. PT/OT recommending home with HHC. Tasked HHC to follow. horse stud manager to follow and assist as needed. Length of Stay (Days): 2 GMLOS: 2.6 [facility] 02-03-2025 Note Formatting of this n ote might be different from the original. Care Management Progress Note Short Medical why still here: Laceration to R knee cellulitis, Nephrology following for CKD stage 3, IV ATB Planned Discharge Disposition: Home Health Services Barriers/Today we still Wait: Clinical stability, Information Technology Specialist Administering IV medications Was informed in rounds that pt's does not have infected joint. Pt to have knee immobilizer. PT/OT recommending home with HHC. Tasked HHC to follow. horse stud manager to follow and assist as needed. Length of Stay (Days): 2 GMLOS: 2.6 [facility] 02-03-2025 Note Formatting of this n ote might be different from the original. Care Management Progress Note Short Medical why still here: Laceration to R knee cellulitis, Nephrology following for CKD stage 3, IV ATB Planned Discharge Disposition: Home Health Services Barriers/Today we still Wait: Clinical stability, Information Technology Specialist Administering IV medications Was informed in rounds that pt's does not have infected joint. Pt to have knee immobilizer. PT/OT recommending home with HHC. Tasked HHC to follow. horse stud manager to follow and assist as needed. Length of Stay (Days): 2 GMLOS: 2.6 [facility] 02-02-2025 Plan of care note Problem: Pain - Adult Goal: Verbalizes/displays adequate comfort level or baseline comfort level Outcome: Progressing Problem: Safety - Adult Goal: Free from fall injury Outcome: Progressing Problem: Discharge Planning Goal: Discharge to home or other facility with appropriate resources Outcome: Progressing Problem: Chronic Conditions and Co-morbidities Goal: Patient's chronic conditions and co-morbidity symptoms are monitored and maintained or improved Outcome: Progressing [facility] 02-02-2025 Plan of care note Problem: Pain - Adult Goal: Verbalizes/displays adequate comfort level or baseline comfort level Outcome: Progressing Problem: Safety - Adult Goal: Free from fall injury Outcome: Progressing Problem: Discharge Planning Goal: Discharge to home or other facility with appropriate resources Outcome: Progressing Problem: Chronic Conditions and Co-morbidities Goal: Patient's chronic conditions and co-morbidity symptoms are monitored and maintained or improved Outcome: Progressing [facility] 02-02-2025 Consult note Associated Order (s): IP CONSULT TO ORTHOPAEDIC SURGERY Consult Note Date:02/02/2025 Patient Name:Anson Capps Date of :1940 Age:84 y.o. Reason for Consult: Right knee laceration, rule out septic joint Chief Complaint Chief Complaint Patient presents with Wound Check Right knee pain. History Obtained From Patient, chart. History of Present Illness The patient is a pleasant 84 yo WF who suffered a mechanical fall from standing height on 01/23. She landed directly on the front of her right knee and sustained a 7 cm transverse laceration. Her wound was appropriately cleaned in sutured in the ED the same day. She presents now with increased pain and fear of infection. She says her daughter is an RN and has been cleaning the wound and changing the dressing daily. She endorses a mild amount of purulent drainage. The knee feels much better than yesterday. She denies fever, chills or malaise. Past Medical History Medical History[1] Past Surgical History Surgical History[2] Medications Prior to Admission medications Medication Sig Start Date End Date Taking? Authorizing Provider albuterol 108 (90 Base) MCG/ACT inhaler Inhale 1 puff every 4 hours as needed. Historical Provider, atorvastatin (Lipitor) 40 MG tablet Take by mouth. 02/13/22 01/04/24 Historical Provider, cephalexin (Keflex) 500 MG capsule Take 1 capsule (500 mg) by mouth 4 times daily for 5 days. 01/24/25 01/29/25 Dara Correia, cholecalciferol (Vitamin D-3) 10 MCG (400 UNIT) capsule Take by mouth. 11/28/22 Historical Provider, cloNIDine (Catapres) 0.2 MG tablet Take 0.2 mg by mouth in the morning. Historical Provider, clopidogrel (Plavix) 75 MG tablet Take 75 mg by mouth daily. Historical Provider, dulaglutide (Trulicity) 3 MG/0.5ML solution pen-injector Inject under the skin 1 (one) time per week. Historical Provider, DULoxetine (Cymbalta) [address] capsule Take 30 mg by mouth daily. Historical Provider, ferrous gluconate (KP Ferrous Gluconate) 324 (37.5 Fe) MG tablet Take 324 mg by mouth daily (with breakfast). Historical Provider, ipratropium-albuterol (Duo-Neb) 0.5-2.5 mg/3 mL nebulizer solution Inhale 3 mL in the morning and 3 mL at noon and 3 mL in the evening and 3 mL before bedtime. Historical Provider, lisinopril 5 MG tablet Take 1 tablet (5 mg) by mouth daily. 05/14/23 Jamee Stewart MD oxyCODONE (Roxicodone) 5 MG immediate release tablet Take 1 tablet (5 mg) by mouth every 8 hours as needed for severe pain (7-10). 01/24/25 Dara Correia DO Allergies Iron, Pregabalin, Tetracyclines & related, Amlodipine, and Codeine Social History reports that she has never smoked. She has never used smokeless tobacco. She reports that she does not currently use alcohol. She reports that she does not use drugs. Family History Family History[3] Review of Systems Denies HI or LOC. Denies FERNANDEZ or dizziness. Denies recent cold or flu. Denies CP or palpitations. Denies SOB or cough. Denies abdominal pain. Denies bowel or bladder complaint. Denies rash or skin lesion other than her right knee laceration. Denies focal neuro deficit. Physical Exam BP (!) 176/89 (BP Location: Right arm, Patient Position: Lying) Pulse 100 Temp 36.7 C (98.1 F) (Temporal) Resp 18 Ht 1.524 m (5') Wt 56.7 kg (125 lb) SpO2 92% BMI 24.41 kg/m A&O x 3. NAD. Head NC/AT. Heart RRR. Breathing unlabored. Abdomen soft, NT. UE moving freely. Knee immobilizer intact right LE. Her 7 cm transverse right knee laceration is well approximated with interrupted sutures. The skin surrounding the laceration is hyperemic but not cellulitic. There is no active drainage. There is no joint effusion. There is no prepatellar fluid collection or fluctuance. She can hold an active SLR without pain. Knee flexion is appropriately painful. Calves soft, NT. NVI distally. Labs CBC: Recent Labs 01/31/25 1721 02/02/25 0050 WBC 9.5 10.1 RBC 4.26 3.98 HGB 12.7 11.8 HCT 39.2 37.5 MCV 92.0 94.2 RDW 13.5 13.5 PLT 417 385 CHEMISTRIES: Recent Labs 01/31/25 1721 02/01/25 1512 02/02/25 0050 NA 137 -- 143 K 5.2* 5.3* 4.6 CL 102 -- 111* CO2 21* -- 21* BUN 63* -- 48* CREATININE 1.13* -- 1.24* GLUCOSE 112 -- 44* PT/INR:No results for input(s): PROTIME, INR in the last 72 hours. APTT:No results for input(s): APTT in the last 72 hours. LIVER PROFILE:No results for input(s): AST, ALT, BILIDIR, BILITOT, ALKPHOS in the last 72 hours. Imaging/Diagnostics Right knee x-ray is negative for fracture, foreign body or joint effusion. Assessment Mechanical fall from standing height on 01/23. Right knee laceration. Low index of suspicion for superficial or deep infection. Plan The patient's knee looks very benign to me. No sign of active infection. Joint aspiration not indicated. Her extensor mechanism is intact. I recommend a DSD to the right knee daily. I agree with knee immobilizer to prevent excessive wound tension during flexion. Given the transverse nature of the laceration, I would recommend leaving the sutures in for a full 2 weeks to prevent wound dehiscence. OK for WBAT. I will follow peripherally - call or message with questions or concerns. Electronically signed by Gilberto Harley MD [1] Past Medical History: Diagnosis Date Asthma CAD (coronary artery disease) Depression Diabetes (HCC) GERD (gastroesophageal reflux disease) Hyperlipidemia Hypertension [2] Past Surgical History: Procedure Laterality Date HYSTERECTOMY SHOULDER SURGERY Right [3] No family history on file. [facility] Phone: 02-02-2025 Consult note Associated Order (s): IP CONSULT TO NEPHROLOGY Images from the original note were not included. Initial Nephrology Consult Note Patient: Anson Capps Room number: CDU-04/CDU-04 A Date of Admit: 01/31/2025 LOS: 1 days Referring physician: Baldomero Gates MD Outpatient Professional Housing Consultant: Erin Montiel MD ([place]). Reason for Consult: Asked to see/evaluate by primary service for opinion regarding: abnormal renal labs. Assessment/Plan: 1. CKD stage III- baseline Scr 1.1-1.3 mg/dL. Follow up with [place] [facility] as an outpatient. 2. Hyperkalemia - mild and apears resolved. Continue ACEi. Check CPK. 3. R knee cellulitis after laceration - on abx. 4. DM type II -not a good candidate for SGLT2 therapy given her Apr 2023 admit for pylenephritis/sepsis. 5. PAD with muscle atrophy L leg. Medication dose adjustment: CrCl < 40 ml/min. Will follow along as directed. Thank you for allowing us to participate in the care of this patient. HPI: Anson Capps is a 84 y.o. female with a past medical history of: CKD stage III, DM type II, COPD, HTN, depression, PAD with L leg revascularization, , who was admitted by,Brando Frank MD, for Open knee wound, right, initial encounter [S81.001A]. Admitted after recent ER visit for mechanical fall at home with R knee laceration. Completed 7 days course of Keflex. Presented to ER again with worsening redness or R knee and admitted for IV antibiotics. Scr 1.13 with K 5.2 on admission, Contrast exposure: no Nephrotoxic drug exposure: no documented use of aminoglycosides or NSAIDs. Hypotensive episodes: none documented. PMHx: Medical History[1] Past Surgical History: Surgical History[2] Family History: Family History[3] Social History: Social History Socioeconomic History Marital status: Spouse name: Not on file Number of children: Not on file Years of education: Not on file Highest education level: Not on file Occupational History Not on file Tobacco Use Smoking status: Never Smokeless tobacco: Never Substance and Sexual Activity Alcohol use: Not Currently Drug use: Never Sexual activity: Not on file Other Topics Concern Not on file Social History Narrative Not on file Social Drivers of Health Financial Resource Strain: Not on file Food Insecurity: Not on file Transportation Needs: No Transportation Needs (05/12/2023) PRAPARE - Transportation Lack of Transportation (Medical): No Lack of Transportation (Non-Medical): No Physical Activity: Not on file Stress: Not on file Social Connections: Not on file Intimate Partner Violence: Not At Risk (02/01/2025) Humiliation, Afraid, Rape, and Kick questionnaire Fear of Current or Ex-Partner: No Emotionally Abused: No Physically Abused: No Sexually Abused: No Housing Stability: Low Risk (05/12/2023) Housing Stability Vital Sign Unable to Pay for Housing in the Last Year: No Number of Places Lived in the Last Year: 1 Unstable Housing in the Last Year: No Medications: Scheduled Meds:Scheduled Meds[4] Continuous Infusions:Continuous Meds[5] Allergies: Allergies[6] Review of Systems: Denies uremic symptoms. All other ROS negative, except for those noted above in HPI. Physical Exam: Vitals: 02/01/25 0815 02/01/25 1933 02/01/25 2034 02/02/25 0805 BP: 151/72 133/73 (!) 176/89 BP Location: Left arm Right arm Right arm Patient Position: Lying Lying Lying Pulse: 105 110 104 100 Resp: 18 15 18 Temp: 36.1 C (96.9 F) 37.1 C (98.7 F) 36.7 C (98.1 F) TempSrc: Temporal Temporal SpO2: 93% 94% 94% 92% Weight: Height: Today's weight: Weight: 56.7 kg (125 lb) Admission weight: Weight: 56.7 kg (125 lb) Wt Readings from Last 3 Encounters: 01/31/25 56.7 kg (125 lb) 01/24/25 56.7 kg (125 lb) 01/23/25 56.7 kg (125 lb) Estimated body mass index is 24.41 kg/m as calculated from the following: Height as of this encounter: 1.524 m (5'). Weight as of this encounter: 56.7 kg (125 lb). Intake/Output Summary (Last 24 hours) at 02/02/2025 1713 Last data filed at 02/02/2025 1313 Gross per 24 hour Intake 1474.17 ml Output 350 ml Net 1124.17 ml FIO2 needs: No data found. General Appearance no acute distress, comfortable appearing, looks stated age. Alert and oriented x 3 HEENT Neck anicteric sclera, moist mucus membranes, normal external ears/nares, no facial edema, EOMI. Supple neck, midline trachea without tracheal deviation Chest symmetric, normal shape/expansion, no chest wall/sternal tenderness Heart RRR, no audible pericardial rubs Lungs Occasional wheeze, unlabored respirations without conversational dyspnea, no accessory muscle use, laying flat, room air Abdomen Skin soft without distension or palpable organomegaly, normal bowel sounds, no rebound or guarding, no periumbilical bruits audible no rash or subcutaneous nodules, warm and dry skin with good turgor Musculoskeletal no leg edema, R knee immobilized/covered by dressing. Muscle atrophy L leg no salazar catheter present Neurologic no resting tremor,/asterixis. Able to follow commands. Psychiatric mood and affect animated, insight and judgment intact. Memory recall intact LABS: Recent Labs 01/31/25 1721 02/02/25 0050 WBC 9.5 10.1 HGB 12.7 11.8 HCT 39.2 37.5 MCV 92.0 94.2 PLT 417 385 Recent Labs 01/31/25 1721 02/01/25 1512 02/02/25 0050 NA 137 -- 143 K 5.2* 5.3* 4.6 CL 102 -- 111* CO2 21* -- 21* BUN 63* -- 48* CREATININE 1.13* -- 1.24* GLUCOSE 112 -- 44* CALCIUM 9.8 -- 9.0 ANIONGAP 14* -- 11 Lab Results Component Value Date ALT 27 05/18/2023 AST 52 (H) 05/18/2023 Lab Results Component Value Date COLORU Light Yellow 05/18/2023 CLARITYU Clear 05/18/2023 GLUCOSEU Normal 05/18/2023 BLOODU Negative 05/18/2023 UROBILINOGEN Normal 05/18/2023 Diagnostic Studies: CXR: reviewed in PACS Personally reviewed MARS, labs, radiologic studies and notes. [facility]ALTH office: [phone] Pager: [phone] [1] Past Medical History: Diagnosis Date Asthma CAD (coronary artery disease) Depression Diabetes (HCC) GERD (gastroesophageal reflux disease) Hyperlipidemia Hypertension [2] Past Surgical History: Procedure Laterality Date HYSTERECTOMY SHOULDER SURGERY Right [3] No family history on file. [4] atorvastatin, 10 mg, Oral, Nightly ceFAZolin, 1,000 mg, IntraVENous, q8h cloNIDine, 0.2 mg, Oral, Daily clopidogrel, 75 mg, Oral, Daily DULoxetine, 30 mg, Oral, Daily enoxaparin, 40 mg, SubCUTAneous, Daily insulin lispro, 0-12 Units, SubCUTAneous, TID WC And insulin lispro, 0-12 Units, SubCUTAneous, Nightly lisinopril, 5 mg, Oral, Daily [5] sodium chloride, 50 mL/hr, Last Rate: 50 mL/hr (02/02/25 1313) [6] Allergies Allergen Reactions Iron Other reaction(s): Hypotension (oral iron is ok) Pregabalin Unknown Other reaction(s): Pedal edema, Swelling Tetracyclines & Related Other reaction(s): GI Upset, Nausea Amlodipine Swelling Severe swelling bilateral feet and legs Codeine Other reaction(s): Dizziness, Nausea, Other: See Comments Nausea [facility] 02-02-2025 Note Hospitalist Progress Note 02/02/2025 [phone]: Please page me ([phone]) for patient care issues. [phone]: Please page [facility] night Hospitalist for any issues. Subjective: Admit Date: 01/31/2025 PCP: Jamie Schroeder Room#: CDU-04/CDU-04 A Interval History: Patient is lying on the bed, complaining of right knee pain. Denies any chest pain shortness of breath or palpitations No other significant overnight issues. No diet orders on file @[id number]@ 24HR INTAKE/OUTPUT: Intake/Output Summary (Last 24 hours) at 02/02/2025 1439 Last data filed at 02/02/2025 1313 Gross per 24 hour Intake 1474.17 ml Output 350 ml Net 1124.17 ml Past Medical History: Medical History[1] LABS: CBC: Recent Labs 01/31/25 1721 02/02/25 0050 WBC 9.5 10.1 RBC 4.26 3.98 HGB 12.7 11.8 HCT 39.2 37.5 MCV 92.0 94.2 RDW 13.5 13.5 PLT 417 385 BMP: Recent Labs 01/31/25 1721 02/01/25 1512 02/02/25 0050 NA 137 -- 143 K 5.2* 5.3* 4.6 CL 102 -- 111* CO2 21* -- 21* BUN 63* -- 48* CREATININE 1.13* -- 1.24* GLUCOSE 112 -- 44* CALCIUM 9.8 -- 9.0 ANIONGAP 14* -- 11 LIVER PROFILE:No results for input(s): AST, ALT, BILITOT, ALKPHOS, PROT in the last 72 hours. No lab exists for component: LABALBU PT/INR: No results for input(s): PROTIME, INR in the last 72 hours. CARDIAC ENZYMES: No results for input(s): TROPONINI in the last 72 hours. Procalcitonin: Lab Results Component Value Date PROCAL 0.05 01/31/2025 COVID-19 PCR: No results for input(s): COVID19 in the last 72 hours. Objective: Vitals: BP (!) 176/89 (BP Location: Right arm, Patient Position: Lying) Pulse 100 Temp 36.7 ?C (98.1 ?F) (Temporal) Resp 18 Ht 5' (1.524 m) Wt 125 lb (56.7 kg) SpO2 92% BMI 24.41 kg/m? Pulse Ox: SpO2 Av.3 % Min: 92 % Max: 94 % Supplemental O2: General appearance: No apparent distress, appears stated age and cooperative with exam HEENT: Normal cephalic, atraumatic without obvious deformity. Pupils equal, round, and reactive to light. Extra ocular muscles intact. Conjunctivae/corneas clear. Neck: Supple, with full range of motion. No jugular venous distention. Trachea midline. No lymphadenopathy. Respiratory: Normal respiratory effort. Clear to auscultation, bilaterally without Rales/Wheezes/Rhonchi. Cardiovascular: Regular rate and rhythm with normal S1/S2 without murmurs, rubs or gallops. Abdomen: Soft, non-tender, non-distended with normal bowel sounds. No rebound or guarding. Musculoskeletal: Right knee dressing is in place. Skin: Neurologic: Neurovascularly intact without any focal sensory/motor deficits. Cranial nerves: II-XII intact, grossly non-focal. Medications: Continuous Meds[2] Scheduled Meds[3] Assessment Right knee wound status post fall. Hyperkalemia. History of: Hypertension Hyperlipidemia. Diabetes mellitus type 2. Coronary artery disease on Plavix. Gastroesophageal reflux disease Depression/anxiety. Septic shock secondary to urinary tract infection in 2022. Chronic kidney disease baseline creatinine 1.2. Plan: Right knee dressing is in place, continues to complain of knee pain. Discussed with ID stewardship changed antibiotics to vancomycin on 02/02. Orthopedics consulted to rule out joint infection. Hyperkalemia resolved Home medications reviewed and resumed appropriately. Follow-up CBC BMP ordered PT OT evaluation. DVT prophylaxis: Lovenox subcu daily. Disposition: Still on IV antibiotics Pending orthopedics consult. Possible discharge in next 1 to 2 days. -am labs, replace lytes prn -increase activity -DVT prophylaxis: [] Lovenox [] Heparin [] SCDs [x] Encourage ambulation [] Already on Anticoagulation Advance Directive: Full Code Discharge planning: SHARAD Gates MD Division of Hospitalist Medicine Inpatient Medical Services/[facility]ER: [phone] [1] Past Medical History: Diagnosis Date Asthma CAD (coronary artery disease) Depression Diabetes (HCC) GERD (gastroesophageal reflux disease) Hyperlipidemia Hypertension [2] sodium chloride, 50 mL/hr, Last Rate: 50 mL/hr (02/02/25 1313) [3] atorvastatin, 10 mg, Oral, Nightly ceFAZolin, 1,000 mg, IntraVENous, q8h cloNIDine, 0.2 mg, Oral, Daily clopidogrel, 75 mg, Oral, Daily DULoxetine, 30 mg, Oral, Daily enoxaparin, 40 mg, SubCUTAneous, Daily insulin lispro, 0-12 Units, SubCUTAneous, TID WC And insulin lispro, 0-12 Units, SubCUTAneous, Nightly lisinopril, 5 mg, Oral, Daily [facility] 02-02-2025 Note Formatting of this n ote might be different from the original. S/W, [facility] Patient is active with [facility]. Casemanager is Ivelisse Noemi at [phone]. Patient has an ERS from [employer]. Patient has aides M,F for 3 hrs through [facility]. [facility] aware of admit. [facility] 02-02-2025 Note Formatting of this n ote might be different from the original. S/W, [facility] Patient is active with [facility]. Casemanager is Ivelisse Noemi at [phone]. Patient has an ERS from [employer]. Patient has aides M,F for 3 hrs through [facility]. [facility] aware of admit. [facility] 02-02-2025 Note OCCUPATIONAL THERAPY [facility] Initial Evaluation Name/MRN: Anson Capps ([id number]) Evaluation Date: 02/02/2025 Date of : 1940 Admission Date: 01/31/2025 4:24 PM Age: 84 y.o. Room/Bed: U-04/U-04 A Discharge Recommendation: Home with Home health OT Assessment IMPRESSION: Pt is an 84 y/o F admitted to [facility] on 02/01/25 d/t an open wound on the right knee sustained from a fall on 01/23/25. Pt presented with gauze and knee brace on R knee during session. Pt limited by R knee drainage, edema, redness and pain along with reduced endurance. Glucose levels were critically low early in AM on 02/02/25 but have since increased. PLOF I with ADL's and functional mobility. Pt completed bed mobility SBA, transfers MIN A progressing to CGA, functional mobility CGA, LB dressing CGA, toileting MOD A. Recommend [facility] to increase safety and I to return home safely. Admitting Diagnosis: open knee wound, RLE Performance Deficits /Impairments: Increased Pain, Decreased Functional Mobility, Decreased ADL status, Decreased Strength, Decreased Endurance, and Decreased High Level IADLs Prognosis: Good Decision Making: Medium Complexity Subjective My leg is really hurting sitting EOB Pain: 0-10 pain scale: 7/10 Location: R knee Past Medical History: Medical History[1] Past Surgical History: Surgical History[2] Admission Diagnosis: Patient Active Problem List Diagnosis Date Noted Open knee wound, right, initial encounter 01/31/2025 Septic shock (HCC) 05/11/2023 Medical Precautions: No active isolations Proper PPE donned/doffed in accordance with facility standards. Fall Risk: Ceballos Fall Risk Score: 70 (Low Risk) Ceballos Fall Risk Score: 70 (High Risk) Precautions/Restrictions: Lines/Drains/Airways: IV Family/Caregiver Present: none Overall Cognitive Status: WNL Overall Orientation Status: Oriented x4 Social/Functional History Patient admitted from home. Lives With: Alone Type of Home: apartment - 3rd floor, elevator to access Home Layout: Single Level Home Home Access: Stairs to Enter with Rails (# of stairs: 2-3) Bathroom Shower/Tub: Tub/Shower Combo, Shower Chair with Back, and Grab Bars Toilet: Standard and Grab Bars Home Equipment: front wheeled walker, rollator, and cane Homemaking Responsibilities: Independent Receives Help From: Home Health Aid 2x/wk. Assist in ADLs. Active Manager Ethics: No Prior Level of Function Prior Level of ADL Function: Independent Prior Level of Mobility: Independent; Device: Front wheeled walker Prior Level of Transfers: Independent PLOF obtained from PT eval. Objective ADLs LE Dressing: Contact Guard Toileting: Mod Assist Pt on bedpan at start of session. MOD A to remove bedpan and complete posterior soraya-care. Pt's participation in OT eval supports progressing to BSC level. Pt completed LB dressing sitting EOB, difficulty with bending R knee d/t pain and edema but able to bend forward to reach foot to thread foot through pant leg. Pt standing to pull up over bottom with no LOB. Bed Mobility Supine to sit: SBA Sit to supine: SBA Rolling to right: Supervision Scooting: SBA HOB Elevated Use of bed rail(s) No physical assistance needed to get into/out of bed on this date. Pt rolling to R side for bed rodriguez removal. Use of bed rails to bring trunk to upright posture, increased time to complete d/t pain in RLE. Transfers/Mobility Sit to stand: Contact Guard, Min Assist Stand to sit: Contact Guard Stand step: Contact Guard Functional mobility: Contact Guard Pt initially needing MIN A STS d/t pulling on FWW and needing multiple attempts to come to full stand. Educated pt on proper hand placement during transitional movements for safety with fair follow through. Progressed to CGA when following proper technique. Pt completed functional mobility [facility], ~25ft with CGA, cues for safe FWW placement. Device(s) used: Front wheeled walker Vision: wears glasses at all times and and are being used during the eval Hearing: normal AM-PAC AM-PAC Inpatient Daily Activity Raw Score: 18 ADL Inpatient CMS G-Code Modifier: CK Plan Pt would benefit from skilled acute OT services to address Strengthening, Balance Training, Self-Care/ADL Training, Functional Mobility Training, Endurance Training, and Safety Education and Training Frequency: 3 visits during current hospital admission or until additional recommendations are made Barriers: Pain, Impaired balance, Lower extremity weakness, and Decreased endurance Safety/Education Safety Safety Devices in place: All fall risk precautions in place, call light within reach, gait belt, nurse notified, and patient left sitting EOB Restraints: N/A Education Education Given To: patient Education Provided: OT Role, Plan of Care, Transfer Training, Equipment, Fall Prevention Education, and Discharge Recommendations Education Method: Verbal, Demonstration, and Teach (more content not included)... [facility] 02-02-2025 Nurse Note Wound Care consulted for Pressure Injury Prevention. Pt's Samm= 20, pt is no longer at risk at this time. Skin Care Precaution order set ordered. Will continue to follow peripherally. Please secure chat message with any questions. Richelle Lara RN [facility] 02-02-2025 Nurse Note Patient blood sugar 44. Patient alert and oriented, asymptomatic, given 4 ounces of orange juice. 0200: rechecked blood sugar-79, patient denies any symptoms, remains alert and oriented. [facility] 02-01-2025 Consult note Formatting of th is note is different from the original. Images from the original note were not included. [facility] Wound Care CONSULT Note Anson Capps AGE: 84 y.o. GENDER: female : 1940 Subjective: HISTORY of PRESENT ILLNESS HPI Anson Capps is a 84 y.o. female who presents for a wound consult. HPI: 84 y.o. who presented to the emergency department on 01/31 with chief complaint of right knee wound check. Patient had a mechanical fall onto carpet on 01/23 and sustained a large laceration to the right knee. Patient came into the emergency department and had suture repair. Patient then returned to the emergency department on 01/24 and had additional suturing. Knee became more red, painful, swollen, and had a small amount of yellowish drainage from the medial aspect of the wound. Denies fever/chills. Completed oral Keflex initially prescribed. XR of right knee on 01/31: IMPRESSION: 1. No acute osseous abnormality. 2. Soft tissue edema. Wound care consulted for laceration of right knee. Patient resting in CDU bed at time of visit. Admits to pain of right knee but notes swelling has decreased. Dressing changed at time of visit. RN at bedside notified of blanchable erythema to right heel. PAST MEDICAL HISTORY Active Ambulatory Problems Diagnosis Date Noted Septic shock (HCC) 05/11/2023 Resolved Ambulatory Problems Diagnosis Date Noted No Resolved Ambulatory Problems Past Medical History: Diagnosis Date Asthma CAD (coronary artery disease) Depression Diabetes (HCC) GERD (gastroesophageal reflux disease) Hyperlipidemia Hypertension PAST SURGICAL HISTORY Surgical History[1] FAMILY HISTORY Family History[2] SOCIAL HISTORY Social History[3] ALLERGIES Allergies[4] MEDICATIONS Medications Ordered Prior to Encounter[5] REVIEW OF SYSTEMS Pertinent items are noted in HPI. Objective: BP 151/72 (BP Location: Left arm, Patient Position: Lying) Pulse 105 Temp 36.1 C (96.9 F) Resp 18 Ht 5' (1.524 m) Wt 125 lb (56.7 kg) SpO2 93% BMI 24.41 kg/m PHYSICAL EXAM General appearance: in no apparent distress, in no respiratory distress and acyanotic, alert, oriented times 3, and cooperative Skin: warm and dry Pulmonary: Normal effort, no respiratory distress, no cyanosis Extremities: no cyanosis, clubbing or edema, blanchable erythema noted on right heel. Right knee: 9.0cm incision. Sutures intact. Well approximated. Scant serosanguinous drainage. Periwound with erythema, mild edema. Photo 02/01/25 LABS CBC: Lab Results Component Value Date WBC 9.5 01/31/2025 HGB 12.7 01/31/2025 HCT 39.2 01/31/2025 MCV 92.0 01/31/2025 PLT 417 01/31/2025 BMP: Lab Results Component Value Date NA 137 01/31/2025 K 5.3 (H) 02/01/2025 CL 102 01/31/2025 CO2 21 (L) 01/31/2025 BUN 63 (H) 01/31/2025 CREATININE 1.13 (H) 01/31/2025 PT/INR: No results found for: PROTIME, INR Prealbumin: No results found for: PREALBUMIN Albumin:No components found for: LABALBU Sed Rate:No results found for: SEDRATE Micro: No components found for: BC Assessment/Plan: Right knee: Laceration -Cleanse with NS, apply xeroform followed by DAVID and javier every day and PRN Float heels with pillow Wound care to follow Nutritional support Recommend to follow up at [facility] wound care center after hospital discharge. Thank you for the consult! I personally obtained the hewitt and critical portions of the history and physical exam. I reviewed the labs, imaging studies, and electronic medical record. I reviewed the chart documentation and discussed the patient with treatment team members. I have edited the note to reflect my clinical findings and my assessment and plan. Please note, the time of this note does not reflect the time I saw this patient today, but the time of this documentaton. Portions of this note including HPI, ROS, impression/plan, and examination may have been copied forward from admission to today as to provide important historical information essential in contributing to medical decision making. Documentation has been reviewed and edited as necessary to support clinical decision making for today's visit and to reflect my own independent evaluation of this patient. Decision making for today's visit and to reflect my own independent evaluation of this patient. [1] Past Surgical History: Procedure Laterality Date HYSTERECTOMY SHOULDER SURGERY Right [2] No family history on file. [3] Social History Tobacco Use Smoking status: Never Smokeless tobacco: Never Substance Use Topics Alcohol use: Not Currently Drug use: Never [4] Allergies Allergen Reactions Iron Other reaction(s): Hypotension (oral iron is ok) Pregabalin Unknown Other reaction(s): Pedal edema, Swelling Tetracyclines & Related Other reaction(s): GI Upset, Nausea Amlodipine Swelling Severe swelling bilateral feet and legs Codeine Other reaction(s): Dizziness, Nausea, Other: See Comments Nausea [5] No current facility-administered medications on file prior to encounter. Current Outpatient Medications on File Prior to Encounter Medication Sig Dispense Refill albuterol 108 (90 Base) MCG/ACT inhaler Inhale 1 puff every 4 hours as needed. atorvastatin (Lipitor) 40 MG tablet Take by mouth. [] cephalexin (Keflex) 500 MG capsule Take 1 capsule (500 mg) by mouth 4 times daily for 5 days. 20 capsule 0 cholecalciferol (Vitamin D-3) 10 MCG (400 UNIT) capsule Take by mouth. cloNIDine (Catapres) 0.2 MG tablet Take 0.2 mg by mouth in the morning. clopidogrel (Plavix) 75 MG tablet Take 75 mg by mouth daily. dulaglutide (Trulicity) 3 MG/0.5ML solution pen-injector Inject under the skin 1 (one) time per week. DULoxetine (Cymbalta) [address] capsule Take 30 mg by mouth daily. ferrous gluconate (KP Ferrous Gluconate) 324 (37.5 Fe) MG tablet Take 324 mg by mouth daily (with breakfast). ipratropium-albuterol (Duo-Neb) 0.5-2.5 mg/3 mL nebulizer solution Inhale 3 mL in the morning and 3 mL at noon and 3 mL in the evening and 3 mL before bedtime. lisinopril 5 MG tablet Take 1 tablet (5 mg) by mouth daily. 30 tablet 1 oxyCODONE (Roxicodone) 5 MG immediate release tablet Take 1 tablet (5 mg) by mouth every 8 hours as needed for severe pain (7-10). 6 tablet 0 Cosigned by Joseluis Wolfe DO at 02/07/2025 4:52 PM EDT [facility] 02-01-2025 Note PHYSICAL THERAPY [facility] Initial Evaluation Name/MRN: Anson Capps ([id number]) Evaluation Date: 02/01/2025 Date of : 1940 Admission Date: 01/31/2025 4:24 PM Age: 84 y.o. Room/Bed: CDU-04/CDU-04 A Discharge Recommendation: Home with Home health PT Equipment Needed: No Assessment IMPRESSION: Pt admitted to ED on 02/01/25 with open R knee wound s/p fall at home. Pt fell roughly 7 days ago requiring sutures to R anterior knee and now presents s/p wound dehiscence following fall at home. Prior to admission, pt lived alone and performed mobility independently. Upon eval, pt required SBA for bed mobility, CGA for transfers, CGA for gait/ambulation with fww. Pt would benefit from skilled PT services in order to increase safety and independence in functional mobility and daily tasks. Recommend [facility] PT upon DC. Admitting Diagnosis: open knee wound Prognosis: good Performance Deficits /Impairments: Increased Pain, Decreased Functional Mobility, Decreased ADL status, Decreased Strength, and Decreased Balance Decision Making: Medium Complexity Subjective Pt pleasant and agreeable to PT evaluation. RN cleared pt for session. Vitals WNL Pain: 0-10 pain scale: 6/10 Location: B knees Past Medical History: Medical History[1] Past Surgical History: Surgical History[2] Admission Diagnosis: Patient Active Problem List Diagnosis Date Noted Open knee wound, right, initial encounter 01/31/2025 Septic shock (HCC) 05/11/2023 Medical Precautions: No active isolations Proper PPE donned/doffed in accordance with facility standards. Fall Risk: Ceballos Fall Risk Score: 80 (Low Risk) Ceballos Fall Risk Score: 80 (High Risk) Precautions/Restrictions: N/A Family/Caregiver Present: none Overall Cognitive Status: WNL Overall Orientation Status: Oriented x4 Vision: wears glasses at all times and and are being used during the eval Hearing: normal Social/Functional History Patient admitted from home. Lives With: Alone Type of Home: apartment - 3rd floor, elevator to access Home Layout: Single Level Home Home Access: Stairs to Enter with Rails (# of stairs: 2-3) Bathroom Shower/Tub: Tub/Shower Combo, Shower Chair with Back, and Grab Bars Toilet: Standard and Grab Bars Home Equipment: front wheeled walker, rollator, and cane Homemaking Responsibilities: Independent Receives Help From: Home Health Aid 2x/wk. Assist in ADLs. Active Manager Ethics: No Prior Level of Function Prior Level of ADL Function: Independent Prior Level of Mobility: Independent; Device: None Prior Level of Transfers: Independent Objective Lower Extremity Assessment AROM: WFL - R knee slightly limited d/t sutures, avoiding extreme ROM Strength: Pt demonstrates appropriate B LE and quad strength in order to safely participate in OOB mobility Sensation: WFL Bed Mobility: Supine to sit: SBA Sit to supine: SBA SBAx1 for all bed mobility. Good tolerance noted with limited R knee flexion. No LOB. Transfers Sit to stand: Contact Guard Stand to sit: Contact Guard STS with fww at CGAx1 and cues for proper sequencing, hand placement and positioning for R knee avoidance of extreme ROM required. Good return noted. Ambulation Ambulation 1 Assistive device(s) used: Front wheeled walker Assist level: Contact Guard Distance (ft): 40ft x 2 Quality of gait: antalgic, step to pattern, B foot clearance, shuffling, narrow MUNIR, slow benoit Pt required increased gait training with fww at CGAx1. Cues and education on proper modified 3 point sequencing, heel toe gait pattern, device approximation and overall pacing of activity required. Good overall return with increased time needed to complete. No overt LOB noted. Moderate fatigue noted post ambulation. Outcome Measures AM-PAC How much HELP from another person do you currently need Turning from your back to your side while in a flat bed without using bedrails?: A Little Moving from lying on your back to sitting on the side of a flat bed without using bedrails?: A Little Moving to and from a bed to a chair (including a wheelchair)?: A Little Standing up from a chair using your arms (wheelchair or bedside chair)?: A Little Walking in a hospital room?: A Little Stair climbing assessed?: No AM-PAC Inpatient Mobility Raw Score (No Stairs) : 15 JH-HLM -HL Score: Walked 25 ft or more (i.e. walked outside of room) Plan Pt would benefit from skilled acute PT services to address Strengthening, Gait Training, Balance Training, Self-Care/ADL Training, Functional Mobility Training, Endurance Training, Safety Education and Training, Stair Training, and Pain Management. Frequency: 5 visits during current hospital admission or until additional recommendations are made Barriers: Pain, Impaired balance, Lower extremity weakness, Decreased endurance, and Limited family support Safety/Education Safety Safety Devices in place: All fall risk p (more content not included)... [facility] 02-01-2025 History and physical note Images from the original note were not included. Attending History and Physical Admit Date: 01/31/2025 PCP: Jamie Schroeder CHIEF COMPLAINT: Right knee pain. Reason for Admission: Right knee wound/pain Hypokalemia. History Obtained From: patient HISTORY OF PRESENT ILLNESS: Anson is a 84 y.o. female with past medical history below who presents with chief complaint listed above. Denies chest pain, sob, abdominal pain, nausea, vomiting, diarrhea, constipation, fevers, or chills. Will admit for further evaluation and management. Past Medical History: Medical History[1] Past Surgical History: Surgical History[2] Social History: Social History Socioeconomic History Marital status: Spouse name: Not on file Number of children: Not on file Years of education: Not on file Highest education level: Not on file Occupational History Not on file Tobacco Use Smoking status: Never Smokeless tobacco: Never Substance and Sexual Activity Alcohol use: Not Currently Drug use: Never Sexual activity: Not on file Other Topics Concern Not on file Social History Narrative Not on file Social Drivers of Health Financial Resource Strain: Not on file Food Insecurity: Not on file Transportation Needs: No Transportation Needs (05/12/2023) PRAPARE - Transportation Lack of Transportation (Medical): No Lack of Transportation (Non-Medical): No Physical Activity: Not on file Stress: Not on file Social Connections: Not on file Intimate Partner Violence: Not At Risk (02/01/2025) Humiliation, Afraid, Rape, and Kick questionnaire Fear of Current or Ex-Partner: No Emotionally Abused: No Physically Abused: No Sexually Abused: No Housing Stability: Low Risk (05/12/2023) Housing Stability Vital Sign Unable to Pay for Housing in the Last Year: No Number of Places Lived in the Last Year: 1 Unstable Housing in the Last Year: No Family History: Family History[3] Medications Prior to Admission: Current Medications[4] Allergies: Iron, Pregabalin, Tetracyclines & related, Amlodipine, and Codeine REVIEW OF SYSTEMS: Constitutional: Negative for fever, chills, activity change and unexpected weight change. HEENT: Negative for congestion, postnasal drip and sneezing. Eyes: Negative for itching and visual disturbance. Respiratory: Negative for apnea, cough, choking, chest tightness, shortness of breath, wheezing and stridor. Cardiovascular: Negative for chest pain. Gastrointestinal: Negative for nausea, vomiting, abdominal pain, diarrhea and blood in stool. Genitourinary: Negative for dysuria, frequency and flank pain. Musculoskeletal: Negative for myalgias and joint swelling. Skin: Negative for rash. Neurological: Negative for dizziness, tremors, seizures, syncope, facial asymmetry, speech difficulty, weakness, numbness and headaches. Hematological: Negative for adenopathy. Psychiatric/Behavioral: Negative for suicidal ideas, behavioral problems, self-injury and dysphoric mood. Vitals: BP 151/72 (BP Location: Left arm, Patient Position: Lying) Pulse 105 Temp 36.1 C (96.9 F) Resp 18 Ht 5' (1.524 m) Wt 125 lb (56.7 kg) SpO2 93% BMI 24.41 kg/m BMI Classification: Normal Weight (BMI 18.5-24.9) Pulse Ox: SpO2 Av % Min: 93 % Max: 97 % Supplemental O2: PHYSICAL EXAM: General appearance: No apparent distress, appears stated age and cooperative with exam. HEENT: Normal cephalic, atraumatic without obvious deformity. Pupils equal, round, and reactive to light. Extra ocular muscles intact. Conjunctivae/corneas clear. Neck: Supple, with full range of motion. No jugular venous distention. Trachea midline. No lymphadenopathy. Respiratory: Normal respiratory effort. Clear to auscultation, bilaterally without Rales/Wheezes/Rhonchi. Cardiovascular: Regular rate and rhythm with normal S1/S2 without murmurs, rubs or gallops. Abdomen: Soft, non-tender, non-distended with normal bowel sounds. No rebound or guarding. Musculoskeletal: No clubbing, cyanosis or edema bilaterally. Full range of motion without deformity, +2 peripheral pulses in all extremities. Skin: Neurologic: Neurovascularly intact without any focal sensory/motor deficits. Cranial nerves: II-XII intact, grossly non-focal. Psychiatric: Alert and oriented, thought content appropriate, normal insight. DATA: CBC: Recent Labs 01/31/25 1721 WBC 9.5 RBC 4.26 HGB 12.7 HCT 39.2 MCV 92.0 RDW 13.5 PLT 417 BMP: Recent Labs 01/31/25 1721 NA 137 K 5.2* CL 102 CO2 21* BUN 63* CREATININE 1.13* GLUCOSE 112 CALCIUM 9.8 ANIONGAP 14* LIVER PROFILE:No results for input(s): AST, ALT, BILITOT, ALKPHOS, PROT in the last 72 hours. No lab exists for component: LABALBU PT/INR: No results for input(s): PROTIME, INR in the last 72 hours. CARDIAC ENZYMES: No results for input(s): TROPONINI in the last 72 hours. Procalcitonin: Lab Results Component Value Date PROCAL 0.05 01/31/2025 Urine Culture: Results for orders placed or performed during the hospital encounter of 05/11/23 Urine culture Collection Time: 05/11/23 5:22 PM Specimen: Urine, Clean Catch Result Value Ref Range Urine Culture >100,000 CFU/mL Escherichia coli (A) Susceptibility Escherichia coli - BROTH MICRODILUTION Amoxicillin / Clavulanate <=2 Susceptible ug/ml Ampicillin 4 Susceptible ug/ml Ampicillin / Sulbactam <=2 Susceptible ug/ml Aztreonam <=1 Susceptible ug/ml Cefazolin <=4 Susceptible ug/ml Cefepime <=1 Susceptible ug/ml Ceftriaxone <=1 Susceptible ug/ml Ciprofloxacin >=4 Resistant ug/ml Gentamicin <=1 Susceptible ug/ml Meropenem <=0.25 Susceptible ug/ml Nitrofurantoin <=16 Susceptible ug/ml Piperacillin / Tazobactam <=4 Susceptible ug/ml Trimethoprim / Sulfamethoxazole >=320 Resistant ug/ml COVID-19 PCR: No results for input(s): COVID19 in the last 72 hours. I reviewed: [x] laboratory results [x] radiographic results At the time of today's encounter. Pt was advised of the results. IMPRESSION: Right knee wound status post fall. Hyperkalemia. History of: Hypertension Hyperlipidemia. Diabetes mellitus type 2. Coronary artery disease on Plavix. Gastroesophageal reflux disease Depression/anxiety. Septic shock secondary to urinary tract infection in 2022. Chronic kidney disease baseline creatinine 1.2. Plan: Right knee sutures in place, redness and swelling, pain. Concern for cellulitis started patient on Ancef. 1 dose of Kayexalate given follow-up potassium levels. EKG reviewed Started on sliding scale blood sugars fairly well-controlled. Continuing wound care. Orthopedics consulted to rule out joint infection. Home medications reviewed and resumed appropriately. Continue PT OT evaluation Follow-up CBC BMP ordered. DVT prophylaxis: Heparin subcu. Disposition: Pending Ortho consult Pending transition to oral antibiotics Possible discharge in next 1 to 2 days. -PT/OT eval/increase activity -am labs, replace lytes prn -vitals per routine -home meds as ordered -DVT prophylaxis: [] Lovenox [] Heparin [] SCDs [x] Encourage ambulation [] Already on Anticoagulation -see below for additional orders, further recommendations to follow Orders Placed This Encounter Procedures XR knee 1 or 2 views right CBC auto differential Basic metabolic panel Procalcitonin Test C-reactive protein CBC auto differential Basic Metabolic Panel w/ Mg Reflex Potassium Adult diet Regular; 5 carb choices (75 gm/meal) Vital Signs Notify patient's primary care provider of admission Activity Up With Assistance Notify physician per STANDARD parameters Full code Inpatient consult to Wound Prevention Inpatient consult to Wound Care--Skin Tear; rt knee OT eval and treat PT eval and treat Initiate Oxygen Therapy Protocol POCT glucose meter Insert peripheral IV Admit to inpatient Code status: Full Code Please forward a copy of this H&P to the patient's PCP. Thank you. Electronically signed by @[email or web address]@ on @[email or web address]@ at @[email or web address]@ [1] Past Medical History: Diagnosis Date Asthma CAD (coronary artery disease) Depression Diabetes (HCC) GERD (gastroesophageal reflux disease) Hyperlipidemia Hypertension [2] Past Surgical History: Procedure Laterality Date HYSTERECTOMY SHOULDER SURGERY Right [3] No family history on file. [4] Current Facility-Administered Medications: acetaminophen (Tylenol) tablet 650 mg, 650 mg, Oral, q6h PRN OR acetaminophen (Tylenol) suppository 650 mg, 650 mg, Rectal, q6h PRN, Baldomero Gates MD albuterol 108 (90 Base) MCG/ACT inhaler 1 puff, 1 puff, Inhalation, q4h PRN, Baldomero Gates MD atorvastatin (Lipitor) tablet 10 mg, 10 mg, Oral, Nightly, Baldomero Gates MD ceFAZolin (Ancef) 1,000 mg in sodium chloride 0.9 % 50 mL IVPB, 1,000 mg, IntraVENous, q8h, Baldomero Gates MD cloNIDine (Catapres) tablet 0.2 mg, 0.2 mg, Oral, Daily, Baldomero Gates MD clopidogrel (Plavix) tablet 75 mg, 75 mg, Oral, Daily, Baldomero Gates MD DULoxetine (Cymbalta) DR capsule 30 mg, 30 mg, Oral, Daily, Baldomero Gates MD enoxaparin (Lovenox) syringe 40 mg, 40 mg, SubCUTAneous, Daily, Baldomero Gates MD [START ON 02/02/2025] ferrous gluconate (Fergon) 324 (37.5 Fe) MG tablet 324 mg, 324 mg, Oral, Daily with breakfast, Baldomero Gates MD lisinopril tablet 5 mg, 5 mg, Oral, Daily, Baldomero Gates MD morphine injection 1 mg, 1 mg, IntraVENous, q4h PRN, Baldomero Gates MD ondansetron ODT (Zofran-ODT) disintegrating tablet 4 mg, 4 mg, Oral, q8h PRN OR ondansetron (Zofran) injection 4 mg, 4 mg, IntraVENous, q6h PRN, Baldomero Gates MD oxyCODONE (Roxicodone) immediate release tablet 5 mg, 5 mg, Oral, q8h PRN, Baldomero Gates MD polyethylene glycol (PEG) 3350 (Miralax) packet 17 g, 17 g, Oral, Daily PRN, Baldomero Gates MD sodium chloride 0.9 % infusion, 50 mL/hr, IntraVENous, Continuous, Baldomero Gates MD T [facility] 02-01-2025 Note Attending History an d Physical Admit Date: 01/31/2025 PCP: Jamie Schroeder CHIEF COMPLAINT: Right knee pain. Reason for Admission: Right knee wound/pain Hypokalemia. History Obtained From: patient HISTORY OF PRESENT ILLNESS: Anson is a 84 y.o. female with past medical history below who presents with chief complaint listed above. Denies chest pain, sob, abdominal pain, nausea, vomiting, diarrhea, constipation, fevers, or chills. Will admit for further evaluation and management. Past Medical History: Medical History[1] Past Surgical History: Surgical History[2] Social History: Social History Socioeconomic History Marital status: Spouse name: Not on file Number of children: Not on file Years of education: Not on file Highest education level: Not on file Occupational History Not on file Tobacco Use Smoking status: Never Smokeless tobacco: Never Substance and Sexual Activity Alcohol use: Not Currently Drug use: Never Sexual activity: Not on file Other Topics Concern Not on file Social History Narrative Not on file Social Drivers of Health Financial Resource Strain: Not on file Food Insecurity: Not on file Transportation Needs: No Transportation Needs (05/12/2023) PRAPARE - Transportation Lack of Transportation (Medical): No Lack of Transportation (Non-Medical): No Physical Activity: Not on file Stress: Not on file Social Connections: Not on file Intimate Partner Violence: Not At Risk (02/01/2025) Humiliation, Afraid, Rape, and Kick questionnaire Fear of Current or Ex-Partner: No Emotionally Abused: No Physically Abused: No Sexually Abused: No Housing Stability: Low Risk (05/12/2023) Housing Stability Vital Sign Unable to Pay for Housing in the Last Year: No Number of Places Lived in the Last Year: 1 Unstable Housing in the Last Year: No Family History: Family History[3] Medications Prior to Admission: Current Medications[4] Allergies: Iron, Pregabalin, Tetracyclines & related, Amlodipine, and Codeine REVIEW OF SYSTEMS: Constitutional: Negative for fever, chills, activity change and unexpected weight change. HEENT: Negative for congestion, postnasal drip and sneezing. Eyes: Negative for itching and visual disturbance. Respiratory: Negative for apnea, cough, choking, chest tightness, shortness of breath, wheezing and stridor. Cardiovascular: Negative for chest pain. Gastrointestinal: Negative for nausea, vomiting, abdominal pain, diarrhea and blood in stool. Genitourinary: Negative for dysuria, frequency and flank pain. Musculoskeletal: Negative for myalgias and joint swelling. Skin: Negative for rash. Neurological: Negative for dizziness, tremors, seizures, syncope, facial asymmetry, speech difficulty, weakness, numbness and headaches. Hematological: Negative for adenopathy. Psychiatric/Behavioral: Negative for suicidal ideas, behavioral problems, self-injury and dysphoric mood. Vitals: BP 151/72 (BP Location: Left arm, Patient Position: Lying) Pulse 105 Temp 36.1 ?C (96.9 ?F) Resp 18 Ht 5' (1.524 m) Wt 125 lb (56.7 kg) SpO2 93% BMI 24.41 kg/m? BMI Classification: Normal Weight (BMI 18.5-24.9) Pulse Ox: SpO2 Av % Min: 93 % Max: 97 % Supplemental O2: PHYSICAL EXAM: General appearance: No apparent distress, appears stated age and cooperative with exam. HEENT: Normal cephalic, atraumatic without obvious deformity. Pupils equal, round, and reactive to light. Extra ocular muscles intact. Conjunctivae/corneas clear. Neck: Supple, with full range of motion. No jugular venous distention. Trachea midline. No lymphadenopathy. Respiratory: Normal respiratory effort. Clear to auscultation, bilaterally without Rales/Wheezes/Rhonchi. Cardiovascular: Regular rate and rhythm with normal S1/S2 without murmurs, rubs or gallops. Abdomen: Soft, non-tender, non-distended with normal bowel sounds. No rebound or guarding. Musculoskeletal: No clubbing, cyanosis or edema bilaterally. Full range of motion without deformity, +2 peripheral pulses in all extremities. Skin: Neurologic: Neurovascularly intact without any focal sensory/motor deficits. Cranial nerves: II-XII intact, grossly non-focal. Psychiatric: Alert and oriented, thought content appropriate, normal insight. DATA: CBC: Recent Labs 01/31/25 1721 WBC 9.5 RBC 4.26 HGB 12.7 HCT 39.2 MCV 92.0 RDW 13.5 PLT 417 BMP: Recent Labs 01/31/25 1721 NA 137 K 5.2* CL 102 CO2 21* BUN 63* CREATININE 1.13* GLUCOSE 112 CALCIUM 9.8 ANIONGAP 14* LIVER PROFILE:No results for input(s): AST, ALT, BILITOT, ALKPHOS, PROT in the last 72 hours. No lab exists for component: LABALBU PT/INR: No results for input(s): PROTIME, INR in the last 72 hours. CARDIAC ENZYMES: No results for input(s): TROPONINI in the last 72 hours. Procalcitonin: Lab Results Component Value Date PROCAL 0.05 01/31/2025 (more content not included)... [facility] 02-01-2025 History and physical note Images from the original note were not included. Attending History and Physical Admit Date: 01/31/2025 PCP: Jamie Schroeder CHIEF COMPLAINT: Right knee pain. Reason for Admission: Right knee wound/pain Hypokalemia. History Obtained From: patient HISTORY OF PRESENT ILLNESS: Anson is a 84 y.o. female with past medical history below who presents with chief complaint listed above. Denies chest pain, sob, abdominal pain, nausea, vomiting, diarrhea, constipation, fevers, or chills. Will admit for further evaluation and management. Past Medical History: Medical History[1] Past Surgical History: Surgical History[2] Social History: Social History Socioeconomic History Marital status: Spouse name: Not on file Number of children: Not on file Years of education: Not on file Highest education level: Not on file Occupational History Not on file Tobacco Use Smoking status: Never Smokeless tobacco: Never Substance and Sexual Activity Alcohol use: Not Currently Drug use: Never Sexual activity: Not on file Other Topics Concern Not on file Social History Narrative Not on file Social Drivers of Health Financial Resource Strain: Not on file Food Insecurity: Not on file Transportation Needs: No Transportation Needs (05/12/2023) PRAPARE - Transportation Lack of Transportation (Medical): No Lack of Transportation (Non-Medical): No Physical Activity: Not on file Stress: Not on file Social Connections: Not on file Intimate Partner Violence: Not At Risk (02/01/2025) Humiliation, Afraid, Rape, and Kick questionnaire Fear of Current or Ex-Partner: No Emotionally Abused: No Physically Abused: No Sexually Abused: No Housing Stability: Low Risk (05/12/2023) Housing Stability Vital Sign Unable to Pay for Housing in the Last Year: No Number of Places Lived in the Last Year: 1 Unstable Housing in the Last Year: No Family History: Family History[3] Medications Prior to Admission: Current Medications[4] Allergies: Iron, Pregabalin, Tetracyclines & related, Amlodipine, and Codeine REVIEW OF SYSTEMS: Constitutional: Negative for fever, chills, activity change and unexpected weight change. HEENT: Negative for congestion, postnasal drip and sneezing. Eyes: Negative for itching and visual disturbance. Respiratory: Negative for apnea, cough, choking, chest tightness, shortness of breath, wheezing and stridor. Cardiovascular: Negative for chest pain. Gastrointestinal: Negative for nausea, vomiting, abdominal pain, diarrhea and blood in stool. Genitourinary: Negative for dysuria, frequency and flank pain. Musculoskeletal: Negative for myalgias and joint swelling. Skin: Negative for rash. Neurological: Negative for dizziness, tremors, seizures, syncope, facial asymmetry, speech difficulty, weakness, numbness and headaches. Hematological: Negative for adenopathy. Psychiatric/Behavioral: Negative for suicidal ideas, behavioral problems, self-injury and dysphoric mood. Vitals: BP 151/72 (BP Location: Left arm, Patient Position: Lying) Pulse 105 Temp 36.1 C (96.9 F) Resp 18 Ht 5' (1.524 m) Wt 125 lb (56.7 kg) SpO2 93% BMI 24.41 kg/m BMI Classification: Normal Weight (BMI 18.5-24.9) Pulse Ox: SpO2 Av % Min: 93 % Max: 97 % Supplemental O2: PHYSICAL EXAM: General appearance: No apparent distress, appears stated age and cooperative with exam. HEENT: Normal cephalic, atraumatic without obvious deformity. Pupils equal, round, and reactive to light. Extra ocular muscles intact. Conjunctivae/corneas clear. Neck: Supple, with full range of motion. No jugular venous distention. Trachea midline. No lymphadenopathy. Respiratory: Normal respiratory effort. Clear to auscultation, bilaterally without Rales/Wheezes/Rhonchi. Cardiovascular: Regular rate and rhythm with normal S1/S2 without murmurs, rubs or gallops. Abdomen: Soft, non-tender, non-distended with normal bowel sounds. No rebound or guarding. Musculoskeletal: No clubbing, cyanosis or edema bilaterally. Full range of motion without deformity, +2 peripheral pulses in all extremities. Skin: Neurologic: Neurovascularly intact without any focal sensory/motor deficits. Cranial nerves: II-XII intact, grossly non-focal. Psychiatric: Alert and oriented, thought content appropriate, normal insight. DATA: CBC: Recent Labs 01/31/25 1721 WBC 9.5 RBC 4.26 HGB 12.7 HCT 39.2 MCV 92.0 RDW 13.5 PLT 417 BMP: Recent Labs 01/31/25 1721 NA 137 K 5.2* CL 102 CO2 21* BUN 63* CREATININE 1.13* GLUCOSE 112 CALCIUM 9.8 ANIONGAP 14* LIVER PROFILE:No results for input(s): AST, ALT, BILITOT, ALKPHOS, PROT in the last 72 hours. No lab exists for component: LABALBU PT/INR: No results for input(s): PROTIME, INR in the last 72 hours. CARDIAC ENZYMES: No results for input(s): TROPONINI in the last 72 hours. Procalcitonin: Lab Results Component Value Date PROCAL 0.05 01/31/2025 Urine Culture: Results for orders placed or performed during the hospital encounter of 05/11/23 Urine culture Collection Time: 05/11/23 5:22 PM Specimen: Urine, Clean Catch Result Value Ref Range Urine Culture >100,000 CFU/mL Escherichia coli (A) Susceptibility Escherichia coli - BROTH MICRODILUTION Amoxicillin / Clavulanate <=2 Susceptible ug/ml Ampicillin 4 Susceptible ug/ml Ampicillin / Sulbactam <=2 Susceptible ug/ml Aztreonam <=1 Susceptible ug/ml Cefazolin <=4 Susceptible ug/ml Cefepime <=1 Susceptible ug/ml Ceftriaxone <=1 Susceptible ug/ml Ciprofloxacin >=4 Resistant ug/ml Gentamicin <=1 Susceptible ug/ml Meropenem <=0.25 Susceptible ug/ml Nitrofurantoin <=16 Susceptible ug/ml Piperacillin / Tazobactam <=4 Susceptible ug/ml Trimethoprim / Sulfamethoxazole >=320 Resistant ug/ml COVID-19 PCR: No results for input(s): COVID19 in the last 72 hours. I reviewed: [x] laboratory results [x] radiographic results At the time of today's encounter. Pt was advised of the results. IMPRESSION: Right knee wound status post fall. Hyperkalemia. History of: Hypertension Hyperlipidemia. Diabetes mellitus type 2. Coronary artery disease on Plavix. Gastroesophageal reflux disease Depression/anxiety. Septic shock secondary to urinary tract infection in 2022. Chronic kidney disease baseline creatinine 1.2. Plan: Right knee sutures in place, redness and swelling, pain. Concern for cellulitis started patient on Ancef. 1 dose of Kayexalate given follow-up potassium levels. EKG reviewed Started on sliding scale blood sugars fairly well-controlled. Continuing wound care. Orthopedics consulted to rule out joint infection. Home medications reviewed and resumed appropriately. Continue PT OT evaluation Follow-up CBC BMP ordered. DVT prophylaxis: Heparin subcu. Disposition: Pending Ortho consult Pending transition to oral antibiotics Possible discharge in next 1 to 2 days. -PT/OT eval/increase activity -am labs, replace lytes prn -vitals per routine -home meds as ordered -DVT prophylaxis: [] Lovenox [] Heparin [] SCDs [x] Encourage ambulation [] Already on Anticoagulation -see below for additional orders, further recommendations to follow Orders Placed This Encounter Procedures XR knee 1 or 2 views right CBC auto differential Basic metabolic panel Procalcitonin Test C-reactive protein CBC auto differential Basic Metabolic Panel w/ Mg Reflex Potassium Adult diet Regular; 5 carb choices (75 gm/meal) Vital Signs Notify patient's primary care provider of admission Activity Up With Assistance Notify physician per STANDARD parameters Full code Inpatient consult to Wound Prevention Inpatient consult to Wound Care--Skin Tear; rt knee OT eval and treat PT eval and treat Initiate Oxygen Therapy Protocol POCT glucose meter Insert peripheral IV Admit to inpatient Code status: Full Code Please forward a copy of this H&P to the patient's PCP. Thank you. Electronically signed by @[email or web address]@ on @[email or web address]@ at @NOWNR@ [1] Past Medical History: Diagnosis Date Asthma CAD (coronary artery disease) Depression Diabetes (HCC) GERD (gastroesophageal reflux disease) Hyperlipidemia Hypertension [2] Past Surgical History: Procedure Laterality Date HYSTERECTOMY SHOULDER SURGERY Right [3] No family history on file. [4] Current Facility-Administered Medications: acetaminophen (Tylenol) tablet 650 mg, 650 mg, Oral, q6h PRN OR acetaminophen (Tylenol) suppository 650 mg, 650 mg, Rectal, q6h PRN, Baldomero Gates MD albuterol 108 (90 Base) MCG/ACT inhaler 1 puff, 1 puff, Inhalation, q4h PRN, Baldomero Gates MD atorvastatin (Lipitor) tablet 10 mg, 10 mg, Oral, Nightly, Baldomero Gates MD ceFAZolin (Ancef) 1,000 mg in sodium chloride 0.9 % 50 mL IVPB, 1,000 mg, IntraVENous, q8h, Baldomero Gates MD cloNIDine (Catapres) tablet 0.2 mg, 0.2 mg, Oral, Daily, Baldomero Gates MD clopidogrel (Plavix) tablet 75 mg, 75 mg, Oral, Daily, Baldomero Gates MD DULoxetine (Cymbalta) DR capsule 30 mg, 30 mg, Oral, Daily, Baldomero Gates MD enoxaparin (Lovenox) syringe 40 mg, 40 mg, SubCUTAneous, Daily, Baldomero Gates MD [START ON 02/02/2025] ferrous gluconate (Fergon) 324 (37.5 Fe) MG tablet 324 mg, 324 mg, Oral, Daily with breakfast, Baldomero Gates MD lisinopril tablet 5 mg, 5 mg, Oral, Daily, Baldomero Gates MD morphine injection 1 mg, 1 mg, IntraVENous, q4h PRN, Baldomero Gates MD ondansetron ODT (Zofran-ODT) disintegrating tablet 4 mg, 4 mg, Oral, q8h PRN OR ondansetron (Zofran) injection 4 mg, 4 mg, IntraVENous, q6h PRN, Baldomero Gates MD oxyCODONE (Roxicodone) immediate release tablet 5 mg, 5 mg, Oral, q8h PRN, Baldomero Gates MD polyethylene glycol (PEG) 3350 (Miralax) packet 17 g, 17 g, Oral, Daily PRN, Baldomero Gates MD sodium chloride 0.9 % infusion, 50 mL/hr, IntraVENous, Continuous, Baldomero Gates MD documented in this encounter [facility] 02-01-2025 Note Care Management Prog ress Note Short Medical why still here: patient remains in CDU today for Mechanical Fall resulting in right knee wound/dehiscence. Infection work up pending. ALLAN, monitoring labs/lytes. Tx includes ATBX Cefazolin/Vanco and steroids. Pain control prn. Consult to wound prevention. Therapy to eval. Planned Discharge Disposition: (TBD) Barriers/Today we still Wait: Clinical stability, Information Technology Specialist recommendations wound prevention. IV ATBX. PT to eval. Length of Stay (Days): 0 GMLOS: No GMLOS Documented [facility] 02-01-2025 Note Formatting of this n ote might be different from the original. Care Management Progress Note Short Medical why still here: patient remains in CDU today for Mechanical Fall resulting in right knee wound/dehiscence. Infection work up pending. ALLAN, monitoring labs/lytes. Tx includes ATBX Cefazolin/Vanco and steroids. Pain control prn. Consult to wound prevention. Therapy to eval. Planned Discharge Disposition: (TBD) Barriers/Today we still Wait: Clinical stability, Information Technology Specialist recommendations wound prevention. IV ATBX. PT to eval. Length of Stay (Days): 0 GMLOS: No GMLOS Documented [facility] 02-01-2025 Note Formatting of this n ote might be different from the original. Care Management Progress Note Short Medical why still here: patient remains in CDU today for Mechanical Fall resulting in right knee wound/dehiscence. Infection work up pending. ALLAN, monitoring labs/lytes. Tx includes ATBX Cefazolin/Vanco and steroids. Pain control prn. Consult to wound prevention. Therapy to eval. Planned Discharge Disposition: (TBD) Barriers/Today we still Wait: Clinical stability, Information Technology Specialist recommendations wound prevention. IV ATBX. PT to eval. Length of Stay (Days): 0 GMLOS: No GMLOS Documented [facility] 02-01-2025 Emergency department Note Report called to receiving nurse Maria Fernanda RN at [facility]. [facility] 02-01-2025 Emergency department Note Report called to receiving nurse Maria Fernanda RN at [facility]. Pt placed on bedpan for urination. Pt attempted BSC but unable to d/t not being able to bend knee. Staff to pts bedside due to Vancomycin complete. Staff noticed pt was scratching and her skin was reddened all over. Medic who responded to bs informed provider whom ordered benadryl IVP. Pt tolerated well. Wound dressing applied to right knee: nonstick pad, ABD, roll gauze to secure. Pt tolerated well. Pt to ED7 via [email or web address] (mutual aid for [place]) for wound check. Pt states she had sutures placed to her right knee at this ED approx 1 week ago. Pt states today when her daughter changed the dressing, the wound looked angry. Pt arrives with dressing and knee brace intact. She has a follow up appt this Thurs with her PCP in [place]. Pt states she was prescribed Keflex last week and completed the prescription. Dressing removed, 7 sutures intact to right knee, surrounding tissue reddened and pt reports edema as well. Daughter bedside. Images from the original note were not included. EMERGENCY DEPARTMENT ENCOUNTER Pt Name: Anson Capps Birthdate 1940 Date of evaluation: 01/31/2025 ED Provider: Rose Vickers MD CHIEF COMPLAINT Chief Complaint Patient presents with Wound Check HISTORY OF PRESENT ILLNESS (Location/Symptom, Timing/Onset, Context/Setting, Quality, Duration, Modifying Factors, Severity) Note limiting factors. I wore appropriate PPE for the entirety of this encounter. HPI Anson Capps is a 84 y.o. who presents to the emergency department with chief complaint of right knee wound check. Patient had a mechanical fall onto carpet and sustained a large laceration to the right knee. Patient came into the emergency department and had suture repair. Patient then returned to the emergency department with a wound dehiscence and then had some repeat suturing done. Patient felt that it was improving but now has gotten more red painful and had a little bit of yellowish drainage from the medial aspect of the wound. Denies any fevers. Denies any other concerns or complaints. Patient completed the prescribed course of antibiotics. Nursing Notes were reviewed. Limitations to history: None Outside historians: None REVIEW OF SYSTEMS Review of Systems Pertinent positives and negatives as per HPI. PAST MEDICAL HISTORY Medical History[1] SURGICAL HISTORY Surgical History[2] CURRENT MEDICATIONS Previous Medications ALBUTEROL 108 (90 BASE) MCG/ACT INHALER Inhale 1 puff every 4 hours as needed. ATORVASTATIN (LIPITOR) 40 MG TABLET Take by mouth. CHOLECALCIFEROL (VITAMIN D-3) 10 MCG (400 UNIT) CAPSULE Take by mouth. CLONIDINE (CATAPRES) 0.2 MG TABLET Take 0.2 mg by mouth in the morning. CLOPIDOGREL (PLAVIX) 75 MG TABLET Take 75 mg by mouth daily. DULAGLUTIDE (TRULICITY) 3 MG/0.5ML SOLUTION PEN-INJECTOR Inject under the skin 1 (one) time per week. DULOXETINE (CYMBALTA) [address] CAPSULE Take 30 mg by mouth daily. FERROUS GLUCONATE (KP FERROUS GLUCONATE) 324 (37.5 FE) MG TABLET Take 324 mg by mouth daily (with breakfast). IPRATROPIUM-ALBUTEROL (DUO-NEB) 0.5-2.5 MG/3 ML NEBULIZER SOLUTION Inhale 3 mL in the morning and 3 mL at noon and 3 mL in the evening and 3 mL before bedtime. LISINOPRIL 5 MG TABLET Take 1 tablet (5 mg) by mouth daily. OXYCODONE (ROXICODONE) 5 MG IMMEDIATE RELEASE TABLET Take 1 tablet (5 mg) by mouth every 8 hours as needed for severe pain (7-10). ALLERGIES Iron, Pregabalin, Tetracyclines & related, Amlodipine, and Codeine FAMILY HISTORY Family History[3] SOCIAL HISTORY Social History[4] SCREENINGS PHYSICAL EXAM ED Triage Vitals [01/31/25 1627] Temp Heart Rate Resp BP 36.8 C (98.3 F) 85 18 (!) 152/71 SpO2 Temp Source Heart Rate Source Patient Position 93 % Oral -- -- BP Location FiO2 (%) -- -- General appearance: Well-appearing, no acute distress. Psych: Awake alert and oriented 3. Pleasant and cooperative. Skin: Warm and dry. No noted wound dehiscence there is erythema as noted below to the right knee. Neck: Supple. Cardiovascular: Regular rate and rhythm Extremities: Warm and well perfused. NROM and SILT throughout upper and lower extermities. DIAGNOSTIC RESULTS Interpretation per the Radiologist below, if available at the time of this note: XR knee 1 or 2 views right Final Result 1. No acute osseous abnormality. 2. Soft tissue edema. Report Dictated on Electronically Signed By: Riccardo Gama MD Electronically Signed Date/Time: 01/31/2025 5:54 PM EDT ED BEDSIDE ULTRASOUND: Performed by ED Physician - none LABS: Labs Reviewed CBC WITH AUTO DIFFERENTIAL - Abnormal Result Value Auto WBC 9.5 RBC 4.26 Hemoglobin 12.7 Hematocrit 39.2 MCV 92.0 MCH 29.8 MCHC 32.4 RDW 13.5 Platelets 417 MPV 9.6 nRBC 0.0 Neutrophils Relative 68.9 Lymphocytes Relative 17.6 Monocytes Relative 9.5 Eosinophils Relative 2.5 Basophils Relative 0.8 Immature Grans % 0.7 Neutrophils Absolute 6.6 Lymphocytes Absolute 1.7 Monocytes Absolute 0.9 Eosinophils Absolute 0.2 Basophils Absolute 0.1 Immature Grans Absolute 0.1 (*) BASIC METABOLIC PANEL - Abnormal SODIUM 137 POTASSIUM 5.2 (*) CHLORIDE 102 CARBON DIOXIDE 21 (*) UREA NITROGEN 63 (*) CREATININE 1.13 (*) GLUCOSE 112 CALCIUM 9.8 ANION GAP 14 (*) eGFR 48.7 (*) All other labs were within normal range or not returned as of this dictation. EMERGENCY DEPARTMENT COURSE and DIFFERENTIAL DIAGNOSIS/MDM: Vitals: Vitals: 01/31/25 1625 01/31/251626 BP: (!) 152/71 Pulse: 85 Resp: 18 Temp: 36.8 C (98.3 F) TempSrc: Oral SpO2: 93% Weight: 56.7 kg (125 lb) Height: 1.524 m (5') The patient presented with a chief complaint of right knee wound. The differential diagnosis associated with this patient's presentation includes abscess, cellulitis. Our workup consisted of ordering/reviewing labs x-ray right knee. ED Course as of 01/31/252005Jan 31, [id number] I was called to the bedside by the office technology instructor, who states that the patient may be reacting to the vancomycin ordered by the previous provider. The entire dose of vancomycin was completed, but the patient began complaining of pruritus. Upon my arrival, she endorses pruritus of her forehead and her scalp. No urticaria, just erythema from scratching. She denies any chest pain or shortness of breath. Benadryl and Solu-Medrol ordered. [JM] ED Course User Index [JM] Erik Bishop MD Diagnoses as of 01/31/252005 Open knee wound, right, initial encounter Considered escalation of care to admission given that this is the patient's third visit and she had outpatient antibiotics with increased wound infection findings on exam. Patient does not want to be admitted at this time. Patient wants to try a the IV antibiotics here in the emergency department and then change coverage. Removed some of the sutures however there is no wound dehiscence so it is unclear that this will result in any drainage. I do not have findings on examination of a subcutaneous abscess. ED Medications managed: Medications vancomycin IVPB 1250 mg in 250 mL NS (premix) (1,250 mg IntraVENous New Bag 01/31/251817) ceFAZolin (Ancef) 2,000 mg in sodium chloride 0.9 % 100 mL IVPB (0 mg IntraVENous Stopped 01/31/25 180) Patient is now agreeable to being admitted for IV antibiotics as she is full care by her family and they are trying to be there 24 hours a day for because she cannot bend her knee and cannot ambulate but is becoming difficult and now it is getting worse with increased pain and redness despite completing a outpatient course of oral antibiotics. CRITICAL CARE TIME CONSULTS: None PROCEDURES: Unless otherwise noted below, none Procedures FINAL IMPRESSION 1. Open knee wound, right, initial encounter DISPOSITION Admit 01/31/2025 07:08:06 PM PATIENT REFERRED TO: No follow-up provider specified. DISCHARGE MEDICATIONS: New Prescriptions No medications on file (Comment: Please note this report has been produced using speech recognition software and may contain errors related to that system including errors in grammar, punctuation, and spelling, as well as words and phrases that may be inappropriate. If there are any questions or concerns please feel free to contact the dictating provider for clarification.) Rose Vickers MD (electronically signed) Emergency Medicine Provider Rose Vickers MD 01/31/25 190 [1] Past Medical History: Diagnosis Date Asthma CAD (coronary artery disease) Depression Diabetes (HCC) GERD (gastroesophageal reflux disease) Hyperlipidemia Hypertension [2] Past Surgical History: Procedure Laterality Date HYSTERECTOMY SHOULDER SURGERY Right [3] No family history on file. [4] Social History Socioeconomic History Marital status: Tobacco Use Smoking status: Never Smokeless tobacco: Never Substance and Sexual Activity Alcohol use: Not Currently Drug use: Never Social Drivers of Health Transportation Needs: No Transportation Needs (05/12/2023) PRAPARE - Transportation Lack of Transportation (Medical): No Lack of Transportation (Non-Medical): No Intimate Partner Violence: Not At Risk (05/12/2023) Humiliation, Afraid, Rape, and Kick questionnaire Fear of Current or Ex-Partner: No Emotionally Abused: No Physically Abused: No Sexually Abused: No Housing Stability: Low Risk (05/12/2023) Housing Stability Vital Sign Unable to Pay for Housing in the Last Year: No Number of Places Lived in the Last Year: 1 Unstable Housing in the Last Year: No documented in this encounter [facility] 01-31-2025 Emergency department Note Pt placed on bedpan for urination. Pt attempted BSC but unable to d/t not being able to bend knee. [facility] 01-31-2025 Emergency department Note Staff to pts bedside due to Vancomycin complete. Staff noticed pt was scratching and her skin was reddened all over. Medic who responded to bs informed provider whom ordered benadryl IVP. Pt tolerated well. [facility] 01-31-2025 Emergency department Note Wound dressing applied to right knee: nonstick pad, ABD, roll gauze to secure. Pt tolerated well. [facility] 01-31-2025 Emergency department Triage note Pt to ED7 via [email or web address] ([facility]ual aid for [place]) for wound check. Pt states she had sutures placed to her right knee at this ED approx 1 week ago. Pt states today when her daughter changed the dressing, the wound looked angry. Pt arrives with dressing and knee brace intact. She has a follow up appt this Thurs with her PCP in [place]. Pt states she was prescribed Keflex last week and completed the prescription. Dressing removed, 7 sutures intact to right knee, surrounding tissue reddened and pt reports edema as well. Daughter bedside. [facility] 01-31-2025 Physician Emergency department Note Images from the original note were not included. EMERGENCY DEPARTMENT ENCOUNTER Pt Name: Anson Capps Birthdate 1940 Date of evaluation: 01/31/2025 ED Provider: Rose Vickers MD CHIEF COMPLAINT Chief Complaint Patient presents with Wound Check HISTORY OF PRESENT ILLNESS (Location/Symptom, Timing/Onset, Context/Setting, Quality, Duration, Modifying Factors, Severity) Note limiting factors. I wore appropriate PPE for the entirety of this encounter. HPI nAson Capps is a 84 y.o. who presents to the emergency department with chief complaint of right knee wound check. Patient had a mechanical fall onto carpet and sustained a large laceration to the right knee. Patient came into the emergency department and had suture repair. Patient then returned to the emergency department with a wound dehiscence and then had some repeat suturing done. Patient felt that it was improving but now has gotten more red painful and had a little bit of yellowish drainage from the medial aspect of the wound. Denies any fevers. Denies any other concerns or complaints. Patient completed the prescribed course of antibiotics. Nursing Notes were reviewed. Limitations to history: None Outside historians: None REVIEW OF SYSTEMS Review of Systems Pertinent positives and negatives as per HPI. PAST MEDICAL HISTORY Medical History[1] SURGICAL HISTORY Surgical History[2] CURRENT MEDICATIONS Previous Medications ALBUTEROL 108 (90 BASE) MCG/ACT INHALER Inhale 1 puff every 4 hours as needed. ATORVASTATIN (LIPITOR) 40 MG TABLET Take by mouth. CHOLECALCIFEROL (VITAMIN D-3) 10 MCG (400 UNIT) CAPSULE Take by mouth. CLONIDINE (CATAPRES) 0.2 MG TABLET Take 0.2 mg by mouth in the morning. CLOPIDOGREL (PLAVIX) 75 MG TABLET Take 75 mg by mouth daily. DULAGLUTIDE (TRULICITY) 3 MG/0.5ML SOLUTION PEN-INJECTOR Inject under the skin 1 (one) time per week. DULOXETINE (CYMBALTA) [address] CAPSULE Take 30 mg by mouth daily. FERROUS GLUCONATE ( FERROUS GLUCONATE) 324 (37.5 FE) MG TABLET Take 324 mg by mouth daily (with breakfast). IPRATROPIUM-ALBUTEROL (DUO-NEB) 0.5-2.5 MG/3 ML NEBULIZER SOLUTION Inhale 3 mL in the morning and 3 mL at noon and 3 mL in the evening and 3 mL before bedtime. LISINOPRIL 5 MG TABLET Take 1 tablet (5 mg) by mouth daily. OXYCODONE (ROXICODONE) 5 MG IMMEDIATE RELEASE TABLET Take 1 tablet (5 mg) by mouth every 8 hours as needed for severe pain (7-10). ALLERGIES Iron, Pregabalin, Tetracyclines & related, Amlodipine, and Codeine FAMILY HISTORY Family History[3] SOCIAL HISTORY Social History[4] SCREENINGS PHYSICAL EXAM ED Triage Vitals [01/31/25 1627] Temp Heart Rate Resp BP 36.8 C (98.3 F) 85 18 (!) 152/71 SpO2 Temp Source Heart Rate Source Patient Position 93 % Oral -- -- BP Location FiO2 (%) -- -- General appearance: Well-appearing, no acute distress. Psych: Awake alert and oriented 3. Pleasant and cooperative. Skin: Warm and dry. No noted wound dehiscence there is erythema as noted below to the right knee. Neck: Supple. Cardiovascular: Regular rate and rhythm Extremities: Warm and well perfused. NROM and SILT throughout upper and lower extermities. DIAGNOSTIC RESULTS Interpretation per the Radiologist below, if available at the time of this note: XR knee 1 or 2 views right Final Result 1. No acute osseous abnormality. 2. Soft tissue edema. Report Dictated on Electronically Signed By: Riccardo Gama MD Electronically Signed Date/Time: 01/31/2025 5:54 PM EDT ED BEDSIDE ULTRASOUND: Performed by ED Physician - none LABS: Labs Reviewed CBC WITH AUTO DIFFERENTIAL - Abnormal Result Value Auto WBC 9.5 RBC 4.26 Hemoglobin 12.7 Hematocrit 39.2 MCV 92.0 MCH 29.8 MCHC 32.4 RDW 13.5 Platelets 417 MPV 9.6 nRBC 0.0 Neutrophils Relative 68.9 Lymphocytes Relative 17.6 Monocytes Relative 9.5 Eosinophils Relative 2.5 Basophils Relative 0.8 Immature Grans % 0.7 Neutrophils Absolute 6.6 Lymphocytes Absolute 1.7 Monocytes Absolute 0.9 Eosinophils Absolute 0.2 Basophils Absolute 0.1 Immature Grans Absolute 0.1 (*) BASIC METABOLIC PANEL - Abnormal SODIUM 137 POTASSIUM 5.2 (*) CHLORIDE 102 CARBON DIOXIDE 21 (*) UREA NITROGEN 63 (*) CREATININE 1.13 (*) GLUCOSE 112 CALCIUM 9.8 ANION GAP 14 (*) eGFR 48.7 (*) All other labs were within normal range or not returned as of this dictation. EMERGENCY DEPARTMENT COURSE and DIFFERENTIAL DIAGNOSIS/MDM: Vitals: Vitals: 01/31/25 1625 01/31/25 1627 BP: (!) 152/71 Pulse: 85 Resp: 18 Temp: 36.8 C (98.3 F) TempSrc: Oral SpO2: 93% Weight: 56.7 kg (125 lb) Height: 1.524 m (5') The patient presented with a chief complaint of right knee wound. The differential diagnosis associated with this patient's presentation includes abscess, cellulitis. Our workup consisted of ordering/reviewing labs x-ray right knee. ED Course as of 01/31/252005Jan 31, [id number] I was called to the bedside by the office technology instructor, who states that the patient may be reacting to the vancomycin ordered by the previous provider. The entire dose of vancomycin was completed, but the patient began complaining of pruritus. Upon my arrival, she endorses pruritus of her forehead and her scalp. No urticaria, just erythema from scratching. She denies any chest pain or shortness of breath. Benadryl and Solu-Medrol ordered. [JM] ED Course User Index [JM] Erik Bishop MD Diagnoses as of 01/31/252005 Open knee wound, right, initial encounter Considered escalation of care to admission given that this is the patient's third visit and she had outpatient antibiotics with increased wound infection findings on exam. Patient does not want to be admitted at this time. Patient wants to try a the IV antibiotics here in the emergency department and then change coverage. Removed some of the sutures however there is no wound dehiscence so it is unclear that this will result in any drainage. I do not have findings on examination of a subcutaneous abscess. ED Medications managed: Medications vancomycin IVPB 1250 mg in 250 mL NS (premix) (1,250 mg IntraVENous New Bag 01/31/25 181) ceFAZolin (Ancef) 2,000 mg in sodium chloride 0.9 % 100 mL IVPB (0 mg IntraVENous Stopped 01/31/25 1806) Patient is now agreeable to being admitted for IV antibiotics as she is full care by her family and they are trying to be there 24 hours a day for because she cannot bend her knee and cannot ambulate but is becoming difficult and now it is getting worse with increased pain and redness despite completing a outpatient course of oral antibiotics. CRITICAL CARE TIME CONSULTS: None PROCEDURES: Unless otherwise noted below, none Procedures FINAL IMPRESSION 1. Open knee wound, right, initial encounter DISPOSITION Admit 01/31/2025 07:08:06 PM PATIENT REFERRED TO: No follow-up provider specified. DISCHARGE MEDICATIONS: New Prescriptions No medications on file (Comment: Please note this report has been produced using speech recognition software and may contain errors related to that system including errors in grammar, punctuation, and spelling, as well as words and phrases that may be inappropriate. If there are any questions or concerns please feel free to contact the dictating provider for clarification.) Rose Vickers MD (electronically signed) Emergency Medicine Provider Rose Vickers MD 01/31/25 721 [1] Past Medical History: Diagnosis Date Asthma CAD (coronary artery disease) Depression Diabetes (HCC) GERD (gastroesophageal reflux disease) Hyperlipidemia Hypertension [2] Past Surgical History: Procedure Laterality Date HYSTERECTOMY SHOULDER SURGERY Right [3] No family history on file. [4] Social History Socioeconomic History Marital status: Tobacco Use Smoking status: Never Smokeless tobacco: Never Substance and Sexual Activity Alcohol use: Not Currently Drug use: Never Social Drivers of Health Transportation Needs: No Transportation Needs (05/12/2023) PRAPARE - Transportation Lack of Transportation (Medical): No Lack of Transportation (Non-Medical): No Intimate Partner Violence: Not At Risk (05/12/2023) Humiliation, Afraid, Rape, and Kick questionnaire Fear of Current or Ex-Partner: No Emotionally Abused: No Physically Abused: No Sexually Abused: No Housing Stability: Low Risk (05/12/2023) Housing Stability Vital Sign Unable to Pay for Housing in the Last Year: No Number of Places Lived in the Last Year: 1 Unstable Housing in the Last Year: No [facility] 01-24-2025 Hospital Discharge instructions Dara Correia DO - 01/24/2025 9:28 PM EDT Follow-up for suture removal in the next 7-10 days. Keep the wound on your knee dry for 24 hours, then keep it clean with soap and water. If you have concern for infection including increased swelling or drainage from the wound, return to the ER. Continue with the knee immobilizer to prevent the stitches from opening up. The following attachments cannot be sent through Care Everywhere.Wound Care ([place])documented in this encounter [facility] 01-24-2025 Emergency department Note Associated Order(s): Laceration Repair EMERGENCY DEPARTMENT ENCOUNTER Pt Name: Anson Capps Birthdate 1940 Date of evaluation: 01/24/2025 ED Provider: Dara Correia DO CHIEF COMPLAINT Chief Complaint Patient presents with Knee Pain Pt c/o right knee pain s/p fall yesterday, was seen and sutured at [facility], pt took Tylenol at home with no relief HISTORY OF PRESENT ILLNESS (Location/Symptom, Timing/Onset, Context/Setting, Quality, Duration, Modifying Factors, Severity) Note limiting factors. I wore appropriate PPE for the entirety of this encounter. HPI Anson Capps is a 84 y.o. who presents to the emergency department with chief complaint of right knee pain. Patient seen in the ED yesterday after she had a mechanical fall and sustained a laceration to the knee. The laceration was sutured and she was placed in a knee immobilizer. Says she was doing well until today when she suddenly had worsening pain. Denies any new injuries. Nursing Notes were reviewed. Limitations to history: None Outside historians: Family REVIEW OF SYSTEMS Review of Systems Pertinent positives and negatives as per HPI. PAST MEDICAL HISTORY Medical History[1] SURGICAL HISTORY Surgical History[2] CURRENT MEDICATIONS Discharge Medication List as of 01/24/2025 9:29 PM CONTINUE these medications which have NOT CHANGED Details albuterol 108 (90 Base) MCG/ACT inhaler Inhale 1 puff every 4 hours as needed., Historical Med atorvastatin (Lipitor) 40 MG tablet Take by mouth., Starting 02/13/2022, Until 01/04/2024 at 2359, Historical Med cholecalciferol (Vitamin D-3) 10 MCG (400 UNIT) capsule Take by mouth., Starting Radha 11/28/2022, Historical Med cloNIDine (Catapres) 0.2 MG tablet Take 0.2 mg by mouth in the morning., Historical Med clopidogrel (Plavix) 75 MG tablet Take 75 mg by mouth daily., Historical Med dulaglutide (Trulicity) 3 MG/0.5ML solution pen-injector Inject under the skin 1 (one) time per week., Historical Med DULoxetine (Cymbalta) [address] capsule Take 30 mg by mouth daily., Historical Med ferrous gluconate (KP Ferrous Gluconate) 324 (37.5 Fe) MG tablet Take 324 mg by mouth daily (with breakfast)., Historical Med ipratropium-albuterol (Duo-Neb) 0.5-2.5 mg/3 mL nebulizer solution Inhale 3 mL in the morning and 3 mL at noon and 3 mL in the evening and 3 mL before bedtime., Historical Med lisinopril 5 MG tablet Take 1 tablet (5 mg) by mouth daily., Starting 05/14/2023, Normal ALLERGIES Iron, Pregabalin, Tetracyclines & related, Amlodipine, and Codeine FAMILY HISTORY Family History[3] SOCIAL HISTORY Social History[4] SCREENINGS PHYSICAL EXAM ED Triage Vitals [01/24/251948] Temp Heart Rate Resp BP 36.3 C (97.4 F) 77 18 (!) 159/57 SpO2 Temp Source Heart Rate Source Patient Position -- Oral Monitor Lying BP Location FiO2 (%) Left arm -- Physical Exam Vitals and nursing note reviewed. Constitutional: General: She is not in acute distress. Appearance: She is well-developed. She is not ill-appearing or toxic-appearing. HENT: Head: Normocephalic and atraumatic. Nose: Nose normal. Cardiovascular: Pulses: Normal pulses. Pulmonary: Effort: Pulmonary effort is normal. No respiratory distress. Musculoskeletal: General: Tenderness (Right knee tender and diffusely ecchymotic. Laceration dehiscence is present.) present. Normal range of motion. Cervical back: Normal range of motion and neck supple. Skin: General: Skin is warm and dry. Capillary Refill: Capillary refill takes less than 2 seconds. Neurological: General: No focal deficit present. Mental Status: She is alert. Mental status is at baseline. DIAGNOSTIC RESULTS Interpretation per the Radiologist below, if available at the time of this note: No orders to display ED BEDSIDE ULTRASOUND: Performed by ED Physician - none LABS: Labs Reviewed - No data to display All other labs were within normal range or not returned as of this dictation. EMERGENCY DEPARTMENT COURSE and DIFFERENTIAL DIAGNOSIS/MDM: Vitals: Vitals: 01/24/251948 BP: (!) 159/57 BP Location: Left arm Patient Position: Lying Pulse: 77 Resp: 18 Temp: 36.3 C (97.4 F) TempSrc: Oral Weight: 56.7 kg (125 lb) Height: 1.524 m (5') Diagnoses as of 01/25/25 0048 Knee laceration, right, subsequent encounter The patient presented with chief complaint of knee pain. The differential diagnosis associated with this patient's presentation includes fracture, wound infection, wound dehiscence. Our workup consisted of ordering/reviewing: Laceration repair. Patient is in agreement with this plan. Medications oxyCODONE (Roxicodone) immediate release tablet 5 mg (5 mg Oral Given 01/24/252051) cephalexin (Keflex) capsule 500 mg (500 mg Oral Given 01/24/252050) lidocaine-EPINEPHrine (Xylocaine W/EPI) 1 %-1:179792 injection 10 mL (10 mL Infiltration Given by Other 01/24/252130) REVAL: 84-year-old female presenting to the ED for right knee pain after laceration repair yesterday. I remove the patient's knee immobilizer and wound dressing. She has a 7 cm laceration to the superior aspect of the patella and the medial and lateral portion of the laceration has a wound dehiscence. Given that she had imaging yesterday I do not believe we need to do repeat imaging because she has not had any new injuries. I discussed with patient and her daughter the risk of infection if we close an old wound however this wound is significantly gaping and bleeding. Given the area I do believe we need to resuture because it will not close appropriately with Steri-Strips or glue. They are agreeable with this plan. The wound was cleaned copiously with a wound cleanser. 2 horizontal mattress sutures and 2 simple interrupted sutures were placed. Patient was replaced in a knee immobilizer and started on a course of Keflex. We discussed strict return precautions and wound care management. They will follow-up with her PCP for reevaluation and suture removal. CRITICAL CARE TIME CONSULTS: None PROCEDURES: Unless otherwise noted below, none Laceration Repair Performed by: Dara Correia DO Authorized by: Dara Correia DO Consent: Consent obtained: Verbal Consent given by: Patient Risks, benefits, and alternatives were discussed: yes Risks discussed: Infection, pain and poor wound healing Alternatives discussed: No treatment [place] protocol: Patient identity confirmed: Arm band Anesthesia: Anesthesia method: Local infiltration Local anesthetic: Lidocaine 1% WITH epi Laceration details: Location: Leg Leg location: R knee Length (cm): 7 Pre-procedure details: Preparation: Patient was prepped and draped in usual sterile fashion Treatment: Area cleansed with: Tyree Amount of cleaning: Extensive Skin repair: Repair method: Sutures Suture size: 4-0 Suture material: Nylon Suture technique: Simple interrupted and horizontal mattress Number of sutures: 4 Approximation: Approximation: Close Repair type: Repair type: Intermediate Post-procedure details: Dressing: Non-adherent dressing Procedure completion: Tolerated well, no immediate complications Patients symptoms are consistent with sepsis, severe sepsis, or septic shock (If yes use .sepsiscoremeasure): FINAL IMPRESSION 1. Knee laceration, right, subsequent encounter DISPOSITION Discharge 01/24/2025 09:26:53 PM PATIENT REFERRED TO: Jamie Schroeder [address] [place] [id number] DISCHARGE MEDICATIONS: Discharge Medication List as of 01/24/2025 9:29 PM START taking these medications Details cephalexin (Keflex) 500 MG capsule Take 1 capsule (500 mg) by mouth 4 times daily for 5 days., Starting 01/24/2025, Until 01/29/2025, Normal oxyCODONE (Roxicodone) 5 MG immediate release tablet Take 1 tablet (5 mg) by mouth every 8 hours as needed for severe pain (7-10)., Starting 01/24/2025, Normal (Comment: Please note this report has been produced using speech recognition software and may contain errors related to that system including errors in grammar, punctuation, and spelling, as well as words and phrases that may be inappropriate. If there are any questions or concerns please feel free to contact the dictating provider for clarification.) Dara Correia DO (electronically signed) Emergency Medicine Provider [1] Past Medical History: Diagnosis Date Asthma CAD (coronary artery disease) Depression Diabetes (HCC) GERD (gastroesophageal reflux disease) Hyperlipidemia Hypertension [2] Past Surgical History: Procedure Laterality Date HYSTERECTOMY SHOULDER SURGERY Right [3] No family history on file. [4] Social History Socioeconomic History Marital status: Tobacco Use Smoking status: Never Smokeless tobacco: Never Substance and Sexual Activity Alcohol use: Not Currently Drug use: Never Social Drivers of Health Transportation Needs: No Transportation Needs (05/12/2023) PRAPARE - Transportation Lack of Transportation (Medical): No Lack of Transportation (Non-Medical): No Intimate Partner Violence: Not At Risk (05/12/2023) Humiliation, Afraid, Rape, and Kick questionnaire Fear of Current or Ex-Partner: No Emotionally Abused: No Physically Abused: No Sexually Abused: No Housing Stability: Low Risk (05/12/2023) Housing Stability Vital Sign Unable to Pay for Housing in the Last Year: No Number of Places Lived in the Last Year: 1 Unstable Housing in the Last Year: No Dara Correia DO 01/25/25 0053 documented in this encounter [facility] 01-24-2025 Physician Emergency department Note Associated Order(s): Laceration Repair EMERGENCY DEPARTMENT ENCOUNTER Pt Name: Anson Capps Birthdate 1940 Date of evaluation: 01/24/2025 ED Provider: Dara Correia DO CHIEF COMPLAINT Chief Complaint Patient presents with Knee Pain Pt c/o right knee pain s/p fall yesterday, was seen and sutured at [facility], pt took Tylenol at home with no relief HISTORY OF PRESENT ILLNESS (Location/Symptom, Timing/Onset, Context/Setting, Quality, Duration, Modifying Factors, Severity) Note limiting factors. I wore appropriate PPE for the entirety of this encounter. HPI Anson Capps is a 84 y.o. who presents to the emergency department with chief complaint of right knee pain. Patient seen in the ED yesterday after she had a mechanical fall and sustained a laceration to the knee. The laceration was sutured and she was placed in a knee immobilizer. Says she was doing well until today when she suddenly had worsening pain. Denies any new injuries. Nursing Notes were reviewed. Limitations to history: None Outside historians: Family REVIEW OF SYSTEMS Review of Systems Pertinent positives and negatives as per HPI. PAST MEDICAL HISTORY Medical History[1] SURGICAL HISTORY Surgical History[2] CURRENT MEDICATIONS Discharge Medication List as of 01/24/2025 9:29 PM CONTINUE these medications which have NOT CHANGED Details albuterol 108 (90 Base) MCG/ACT inhaler Inhale 1 puff every 4 hours as needed., Historical Med atorvastatin (Lipitor) 40 MG tablet Take by mouth., Starting 02/13/2022, Until 01/04/2024 at 2359, Historical Med cholecalciferol (Vitamin D-3) 10 MCG (400 UNIT) capsule Take by mouth., Starting Radha 11/28/2022, Historical Med cloNIDine (Catapres) 0.2 MG tablet Take 0.2 mg by mouth in the morning., Historical Med clopidogrel (Plavix) 75 MG tablet Take 75 mg by mouth daily., Historical Med dulaglutide (Trulicity) 3 MG/0.5ML solution pen-injector Inject under the skin 1 (one) time per week., Historical Med DULoxetine (Cymbalta) [address] capsule Take 30 mg by mouth daily., Historical Med ferrous gluconate ( Ferrous Gluconate) 324 (37.5 Fe) MG tablet Take 324 mg by mouth daily (with breakfast)., Historical Med ipratropium-albuterol (Duo-Neb) 0.5-2.5 mg/3 mL nebulizer solution Inhale 3 mL in the morning and 3 mL at noon and 3 mL in the evening and 3 mL before bedtime., Historical Med lisinopril 5 MG tablet Take 1 tablet (5 mg) by mouth daily., Starting 05/14/2023, Normal ALLERGIES Iron, Pregabalin, Tetracyclines & related, Amlodipine, and Codeine FAMILY HISTORY Family History[3] SOCIAL HISTORY Social History[4] SCREENINGS PHYSICAL EXAM ED Triage Vitals [01/24/251948] Temp Heart Rate Resp BP 36.3 C (97.4 F) 77 18 (!) 159/57 SpO2 Temp Source Heart Rate Source Patient Position -- Oral Monitor Lying BP Location FiO2 (%) Left arm -- Physical Exam Vitals and nursing note reviewed. Constitutional: General: She is not in acute distress. Appearance: She is well-developed. She is not ill-appearing or toxic-appearing. HENT: Head: Normocephalic and atraumatic. Nose: Nose normal. Cardiovascular: Pulses: Normal pulses. Pulmonary: Effort: Pulmonary effort is normal. No respiratory distress. Musculoskeletal: General: Tenderness (Right knee tender and diffusely ecchymotic. Laceration dehiscence is present.) present. Normal range of motion. Cervical back: Normal range of motion and neck supple. Skin: General: Skin is warm and dry. Capillary Refill: Capillary refill takes less than 2 seconds. Neurological: General: No focal deficit present. Mental Status: She is alert. Mental status is at baseline. DIAGNOSTIC RESULTS Interpretation per the Radiologist below, if available at the time of this note: No orders to display ED BEDSIDE ULTRASOUND: Performed by ED Physician - none LABS: Labs Reviewed - No data to display All other labs were within normal range or not returned as of this dictation. EMERGENCY DEPARTMENT COURSE and DIFFERENTIAL DIAGNOSIS/MDM: Vitals: Vitals: 01/24/25 1949 BP: (!) 159/57 BP Location: Left arm Patient Position: Lying Pulse: 77 Resp: 18 Temp: 36.3 C (97.4 F) TempSrc: Oral Weight: 56.7 kg (125 lb) Height: 1.524 m (5') Diagnoses as of 01/25/25 0048 Knee laceration, right, subsequent encounter The patient presented with chief complaint of knee pain. The differential diagnosis associated with this patient's presentation includes fracture, wound infection, wound dehiscence. Our workup consisted of ordering/reviewing: Laceration repair. Patient is in agreement with this plan. Medications oxyCODONE (Roxicodone) immediate release tablet 5 mg (5 mg Oral Given 01/24/252051) cephalexin (Keflex) capsule 500 mg (500 mg Oral Given 01/24/252050) lidocaine-EPINEPHrine (Xylocaine W/EPI) 1 %-1:873436 injection 10 mL (10 mL Infiltration Given by Other 01/24/252130) REVAL: 84-year-old female presenting to the ED for right knee pain after laceration repair yesterday. I remove the patient's knee immobilizer and wound dressing. She has a 7 cm laceration to the superior aspect of the patella and the medial and lateral portion of the laceration has a wound dehiscence. Given that she had imaging yesterday I do not believe we need to do repeat imaging because she has not had any new injuries. I discussed with patient and her daughter the risk of infection if we close an old wound however this wound is significantly gaping and bleeding. Given the area I do believe we need to resuture because it will not close appropriately with Steri-Strips or glue. They are agreeable with this plan. The wound was cleaned copiously with a wound cleanser. 2 horizontal mattress sutures and 2 simple interrupted sutures were placed. Patient was replaced in a knee immobilizer and started on a course of Keflex. We discussed strict return precautions and wound care management. They will follow-up with her PCP for reevaluation and suture removal. CRITICAL CARE TIME CONSULTS: None PROCEDURES: Unless otherwise noted below, none Laceration Repair Performed by: Dara Correia DO Authorized by: Dara Correia DO Consent: Consent obtained: Verbal Consent given by: Patient Risks, benefits, and alternatives were discussed: yes Risks discussed: Infection, pain and poor wound healing Alternatives discussed: No treatment [place] protocol: Patient identity confirmed: Arm band Anesthesia: Anesthesia method: Local infiltration Local anesthetic: Lidocaine 1% WITH epi Laceration details: Location: Leg Leg location: R knee Length (cm): 7 Pre-procedure details: Preparation: Patient was prepped and draped in usual sterile fashion Treatment: Area cleansed with: Shur-Clens Amount of cleaning: Extensive Skin repair: Repair method: Sutures Suture size: 4-0 Suture material: Nylon Suture technique: Simple interrupted and horizontal mattress Number of sutures: 4 Approximation: Approximation: Close Repair type: Repair type: Intermediate Post-procedure details: Dressing: Non-adherent dressing Procedure completion: Tolerated well, no immediate complications Patients symptoms are consistent with sepsis, severe sepsis, or septic shock (If yes use .sepsiscoremeasure): FINAL IMPRESSION 1. Knee laceration, right, subsequent encounter DISPOSITION Discharge 01/24/2025 09:26:53 PM PATIENT REFERRED TO: Jamie Schroeder [address] [place] [phone] DISCHARGE MEDICATIONS: Discharge Medication List as of 01/24/2025 9:29 PM START taking these medications Details cephalexin (Keflex) 500 MG capsule Take 1 capsule (500 mg) by mouth 4 times daily for 5 days., Starting 01/24/2025, Until 01/29/2025, Normal oxyCODONE (Roxicodone) 5 MG immediate release tablet Take 1 tablet (5 mg) by mouth every 8 hours as needed for severe pain (7-10)., Starting 01/24/2025, Normal (Comment: Please note this report has been produced using speech recognition software and may contain errors related to that system including errors in grammar, punctuation, and spelling, as well as words and phrases that may be inappropriate. If there are any questions or concerns please feel free to contact the dictating provider for clarification.) Dara Correia DO (electronically signed) Emergency Medicine Provider [1] Past Medical History: Diagnosis Date Asthma CAD (coronary artery disease) Depression Diabetes (HCC) GERD (gastroesophageal reflux disease) Hyperlipidemia Hypertension [2] Past Surgical History: Procedure Laterality Date HYSTERECTOMY SHOULDER SURGERY Right [3] No family history on file. [4] Social History Socioeconomic History Marital status: Tobacco Use Smoking status: Never Smokeless tobacco: Never Substance and Sexual Activity Alcohol use: Not Currently Drug use: Never Social Drivers of Health Transportation Needs: No Transportation Needs (05/12/2023) PRAPARE - Transportation Lack of Transportation (Medical): No Lack of Transportation (Non-Medical): No Intimate Partner Violence: Not At Risk (05/12/2023) Humiliation, Afraid, Rape, and Kick questionnaire Fear of Current or Ex-Partner: No Emotionally Abused: No Physically Abused: No Sexually Abused: No Housing Stability: Low Risk (05/12/2023) Housing Stability Vital Sign Unable to Pay for Housing in the Last Year: No Number of Places Lived in the Last Year: 1 Unstable Housing in the Last Year: No Dara Correia DO 01/25/25 0053 [facility] 01-24-2025 Hospital Discharge instructions Erik Bishop MD - 01/24/2025 12:44 AM EDT Please present to an urgent care, your primary care physician, or back to the emergency department in 5-7 days to have your 6 sutures removed. The following attachments cannot be sent through Care Everywhere.Laceration Repair With Stitches ED ([place])documented in this encounter [facility] 01-23-2025 Emergency department Note Associated Order(s): Laceration Repair EMERGENCY DEPARTMENT ENCOUNTER Pt Name: Anson Capps Birthdate 1940 Date of evaluation: 01/23/2025 ED Provider: Noni Bishop MD CHIEF COMPLAINT Chief Complaint Patient presents with Laceration Pt arrived via ems from home for a lac to her R knee after a mechanical fall at home. Pt tripped, landed on her knee. Pt denies hitting head, no loc. Pt does take plavix. Bleeding is controlled. Pt denies any pain. Last tetanus unknown HISTORY OF PRESENT ILLNESS (Location/Symptom, Timing/Onset, Context/Setting, Quality, Duration, Modifying Factors, Severity) Note limiting factors. I wore appropriate PPE for the entirety of this encounter. HPI Anson Capps is a 84 y.o. female who presents to the emergency department with chief complaint of a laceration to her right knee after she was ambulating across the living room and had a mechanical fall, landing on her knee. She denies hitting her head or losing consciousness. She states that she does take Plavix. Nursing Notes were reviewed. Limitations to history: None Outside historians: Family : daughter REVIEW OF SYSTEMS Review of Systems Pertinent positives and negatives as per HPI. PAST MEDICAL HISTORY Medical History[1] SURGICAL HISTORY Surgical History[2] CURRENT MEDICATIONS Previous Medications ALBUTEROL 108 (90 BASE) MCG/ACT INHALER Inhale 1 puff every 4 hours as needed. ATORVASTATIN (LIPITOR) 40 MG TABLET Take by mouth. CHOLECALCIFEROL (VITAMIN D-3) 10 MCG (400 UNIT) CAPSULE Take by mouth. CLONIDINE (CATAPRES) 0.2 MG TABLET Take 0.2 mg by mouth in the morning. CLOPIDOGREL (PLAVIX) 75 MG TABLET Take 75 mg by mouth daily. DULAGLUTIDE (TRULICITY) 3 MG/0.5ML SOLUTION PEN-INJECTOR Inject under the skin 1 (one) time per week. DULOXETINE (CYMBALTA) [address] CAPSULE Take 30 mg by mouth daily. FERROUS GLUCONATE ( FERROUS GLUCONATE) 324 (37.5 FE) MG TABLET Take 324 mg by mouth daily (with breakfast). IPRATROPIUM-ALBUTEROL (DUO-NEB) 0.5-2.5 MG/3 ML NEBULIZER SOLUTION Inhale 3 mL in the morning and 3 mL at noon and 3 mL in the evening and 3 mL before bedtime. LISINOPRIL 5 MG TABLET Take 1 tablet (5 mg) by mouth daily. ALLERGIES Iron, Oxycodone, Pregabalin, Tetracyclines & related, Amlodipine, and Codeine FAMILY HISTORY Family History[3] SOCIAL HISTORY Social History[4] SCREENINGS PHYSICAL EXAM ED Triage Vitals Temp Heart Rate Resp BP 01/23/25232001/23/252320 -- 01/23/252321 36.6 C (97.8 F) 73 (!) 168/54 SpO2 Temp Source Heart Rate Source Patient Position 01/23/25232001/23/25232001/23/252320 -- 95 % Oral Monitor BP Location FiO2 (%) -- -- Physical Exam Vitals and nursing note reviewed. Constitutional: General: She is not in acute distress. Appearance: She is well-developed. HENT: Head: Normocephalic and atraumatic. Eyes: Conjunctiva/sclera: Conjunctivae normal. Cardiovascular: Rate and Rhythm: Normal rate. Pulmonary: Effort: Pulmonary effort is normal. No respiratory distress. Musculoskeletal: General: No swelling. Comments: Large 7 cm laceration overlying the superior aspect of the right patella. There is evidence of subcutaneous tissue visualization. Accompanying TTP. Skin: General: Skin is warm and dry. Capillary Refill: Capillary refill takes less than 2 seconds. Neurological: Mental Status: She is alert. Psychiatric: Mood and Affect: Mood normal. DIAGNOSTIC RESULTS Procedures/EKG: Interpretation per the Radiologist below, if available at the time of this note: XR knee 4+ views right Final Result 1. No acute fracture or dislocation. 2. Mild medial compartment predominant osteoarthritis. 3. 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 4. Soft tissue swelling and subcutaneous emphysema anterior to the patella may correlate with laceration site. Correlate with physical exam. Report Dictated on Electronically Signed By: Cesar Sheppard MD Electronically Signed Date/Time: 01/24/2025 12:45 AM EDT ED BEDSIDE ULTRASOUND: Performed by ED Physician - none LABS: Labs Reviewed - No data to display All other labs were within normal range or not returned as of this dictation. EMERGENCY DEPARTMENT COURSE and DIFFERENTIAL DIAGNOSIS/MDM: Vitals: Vitals: 01/23/25232001/23/25232101/23/252322 BP: (!) 168/54 Pulse: 73 Temp: 36.6 C (97.8 F) TempSrc: Oral SpO2: 95% Weight: 56.7 kg (125 lb) Height: 1.524 m (5') The patient presented with a chief complaint of a laceration The differential diagnosis associated with this patient's presentation includes but is not limited to: Presentation concerning for simple laceration but cannot rule out underlying fracture Our workup consisted of ordering/reviewing: Right knee x-ray [facility] prescriptions, to include tramadol, Percocet, Ativan X-ray negative for fracture or dislocation, upon my independent interpretation. Laceration repaired as detailed in procedure note. The patient will be discharged The patient is in agreement with this plan. Diagnoses as of 01/24/25 0101 Laceration of right knee, initial encounter Medications lidocaine-EPINEPHrine (Xylocaine W/EPI) 1 %-1:067382 injection 10 mL (10 mL Infiltration Given 01/23/252343) Tdap (BoostRIX) vaccine 0.5 mL (0.5 mL IntraMUSCular Given 01/23/252343) REVAL: CRITICAL CARE TIME None CONSULTS: None PROCEDURES: Unless otherwise noted below, none Laceration Repair Performed by: Erik Bishop MD Authorized by: Erik Bishop MD Consent: Consent obtained: Verbal Consent given by: Patient [place] protocol: Patient identity confirmed: Verbally with patient Anesthesia: Anesthesia method: Local infiltration Local anesthetic: Lidocaine 1% WITH epi Laceration details: Location: Leg Leg location: R knee Length (cm): 7 Pre-procedure details: Preparation: Patient was prepped and draped in usual sterile fashion Exploration: Hemostasis achieved with: Direct pressure and epinephrine Contaminated: no Treatment: Area cleansed with: Karlo-Mihai Amount of cleaning: Standard Skin repair: Repair method: Sutures Suture size: 4-0 Suture material: Prolene Number of sutures: 6 Repair type: Repair type: Simple Post-procedure details: Dressing: Non-adherent dressing Procedure completion: Tolerated FINAL IMPRESSION 1. Laceration of right knee, initial encounter DISPOSITION Discharge 01/24/2025 12:43:30 AM PATIENT REFERRED TO: Jamie Schroeder [address] [place] [phone] Schedule an appointment as soon as possible for a visit in 1 week DISCHARGE MEDICATIONS: New Prescriptions No medications on file (Comment: Please note this report has been produced using speech recognition software and may contain errors related to that system including errors in grammar, punctuation, and spelling, as well as words and phrases that may be inappropriate. If there are any questions or concerns please feel free to contact the dictating provider for clarification.) Noni Bishop MD (electronically signed) Emergency Medicine Provider [1] Past Medical History: Diagnosis Date Asthma CAD (coronary artery disease) Depression Diabetes (HCC) GERD (gastroesophageal reflux disease) Hyperlipidemia Hypertension [2] No past surgical history on file. [3] No family history on file. [4] Social History Socioeconomic History Marital status: Tobacco Use Smoking status: Never Smokeless tobacco: Never Substance and Sexual Activity Alcohol use: Not Currently Drug use: Never Social Drivers of Health Transportation Needs: No Transportation Needs (05/12/2023) PRAPARE - Transportation Lack of Transportation (Medical): No Lack of Transportation (Non-Medical): No Intimate Partner Violence: Not At Risk (05/12/2023) Humiliation, Afraid, Rape, and Kick questionnaire Fear of Current or Ex-Partner: No Emotionally Abused: No Physically Abused: No Sexually Abused: No Housing Stability: Low Risk (05/12/2023) Housing Stability Vital Sign Unable to Pay for Housing in the Last Year: No Number of Places Lived in the Last Year: 1 Unstable Housing in the Last Year: No Erik Bishop MD 01/24/25 0101 documented in this encounter [facility] 01-23-2025 Physician Emergency department Note Associated Order(s): Laceration Repair EMERGENCY DEPARTMENT ENCOUNTER Pt Name: Anson Capps Birthdate 1940 Date of evaluation: 01/23/2025 ED Provider: Noni Bishop MD CHIEF COMPLAINT Chief Complaint Patient presents with Laceration Pt arrived via ems from home for a lac to her R knee after a mechanical fall at home. Pt tripped, landed on her knee. Pt denies hitting head, no loc. Pt does take plavix. Bleeding is controlled. Pt denies any pain. Last tetanus unknown HISTORY OF PRESENT ILLNESS (Location/Symptom, Timing/Onset, Context/Setting, Quality, Duration, Modifying Factors, Severity) Note limiting factors. I wore appropriate PPE for the entirety of this encounter. HPI Anson Capps is a 84 y.o. female who presents to the emergency department with chief complaint of a laceration to her right knee after she was ambulating across the living room and had a mechanical fall, landing on her knee. She denies hitting her head or losing consciousness. She states that she does take Plavix. Nursing Notes were reviewed. Limitations to history: None Outside historians: Family : daughter REVIEW OF SYSTEMS Review of Systems Pertinent positives and negatives as per HPI. PAST MEDICAL HISTORY Medical History[1] SURGICAL HISTORY Surgical History[2] CURRENT MEDICATIONS Previous Medications ALBUTEROL 108 (90 BASE) MCG/ACT INHALER Inhale 1 puff every 4 hours as needed. ATORVASTATIN (LIPITOR) 40 MG TABLET Take by mouth. CHOLECALCIFEROL (VITAMIN D-3) 10 MCG (400 UNIT) CAPSULE Take by mouth. CLONIDINE (CATAPRES) 0.2 MG TABLET Take 0.2 mg by mouth in the morning. CLOPIDOGREL (PLAVIX) 75 MG TABLET Take 75 mg by mouth daily. DULAGLUTIDE (TRULICITY) 3 MG/0.5ML SOLUTION PEN-INJECTOR Inject under the skin 1 (one) time per week. DULOXETINE (CYMBALTA) [address] CAPSULE Take 30 mg by mouth daily. FERROUS GLUCONATE ( FERROUS GLUCONATE) 324 (37.5 FE) MG TABLET Take 324 mg by mouth daily (with breakfast). IPRATROPIUM-ALBUTEROL (DUO-NEB) 0.5-2.5 MG/3 ML NEBULIZER SOLUTION Inhale 3 mL in the morning and 3 mL at noon and 3 mL in the evening and 3 mL before bedtime. LISINOPRIL 5 MG TABLET Take 1 tablet (5 mg) by mouth daily. ALLERGIES Iron, Oxycodone, Pregabalin, Tetracyclines & related, Amlodipine, and Codeine FAMILY HISTORY Family History[3] SOCIAL HISTORY Social History[4] SCREENINGS PHYSICAL EXAM ED Triage Vitals Temp Heart Rate Resp BP 01/23/25 2321 01/23/25 2321 -- 06/29/25 2322 36.6 C (97.8 F) 73 (!) 168/54 SpO2 Temp Source Heart Rate Source Patient Position 01/23/25232001/23/25232001/23/252320 -- 95 % Oral Monitor BP Location FiO2 (%) -- -- Physical Exam Vitals and nursing note reviewed. Constitutional: General: She is not in acute distress. Appearance: She is well-developed. HENT: Head: Normocephalic and atraumatic. Eyes: Conjunctiva/sclera: Conjunctivae normal. Cardiovascular: Rate and Rhythm: Normal rate. Pulmonary: Effort: Pulmonary effort is normal. No respiratory distress. Musculoskeletal: General: No swelling. Comments: Large 7 cm laceration overlying the superior aspect of the right patella. There is evidence of subcutaneous tissue visualization. Accompanying TTP. Skin: General: Skin is warm and dry. Capillary Refill: Capillary refill takes less than 2 seconds. Neurological: Mental Status: She is alert. Psychiatric: Mood and Affect: Mood normal. DIAGNOSTIC RESULTS Procedures/EKG: Interpretation per the Radiologist below, if available at the time of this note: XR knee 4+ views right Final Result 1. No acute fracture or dislocation. 2. Mild medial compartment predominant osteoarthritis. 3. 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 4. Soft tissue swelling and subcutaneous emphysema anterior to the patella may correlate with laceration site. Correlate with physical exam. Report Dictated on Electronically Signed By: Cesar Sheppard MD Electronically Signed Date/Time: 01/24/2025 12:45 AM EDT ED BEDSIDE ULTRASOUND: Performed by ED Physician - none LABS: Labs Reviewed - No data to display All other labs were within normal range or not returned as of this dictation. EMERGENCY DEPARTMENT COURSE and DIFFERENTIAL DIAGNOSIS/MDM: Vitals: Vitals: 01/23/251 01/23/25232101/23/252322 BP: (!) 168/54 Pulse: 73 Temp: 36.6 C (97.8 F) TempSrc: Oral SpO2: 95% Weight: 56.7 kg (125 lb) Height: 1.524 m (5') The patient presented with a chief complaint of a laceration The differential diagnosis associated with this patient's presentation includes but is not limited to: Presentation concerning for simple laceration but cannot rule out underlying fracture Our workup consisted of ordering/reviewing: Right knee x-ray I reviewed [facility] prescriptions, to include tramadol, Percocet, Ativan X-ray negative for fracture or dislocation, upon my independent interpretation. Laceration repaired as detailed in procedure note. The patient will be discharged The patient is in agreement with this plan. Diagnoses as of 01/24/25 0101 Laceration of right knee, initial encounter Medications lidocaine-EPINEPHrine (Xylocaine W/EPI) 1 %-1:934136 injection 10 mL (10 mL Infiltration Given 01/23/252343) Tdap (BoostRIX) vaccine 0.5 mL (0.5 mL IntraMUSCular Given 01/23/252343) REVAL: CRITICAL CARE TIME None CONSULTS: None PROCEDURES: Unless otherwise noted below, none Laceration Repair Performed by: Erik Bishop MD Authorized by: Erik Bishop MD Consent: Consent obtained: Verbal Consent given by: Patient [place] protocol: Patient identity confirmed: Verbally with patient Anesthesia: Anesthesia method: Local infiltration Local anesthetic: Lidocaine 1% WITH epi Laceration details: Location: Leg Leg location: R knee Length (cm): 7 Pre-procedure details: Preparation: Patient was prepped and draped in usual sterile fashion Exploration: Hemostasis achieved with: Direct pressure and epinephrine Contaminated: no Treatment: Area cleansed with: Shur-Clens Amount of cleaning: Standard Skin repair: Repair method: Sutures Suture size: 4-0 Suture material: Prolene Number of sutures: 6 Repair type: Repair type: Simple Post-procedure details: Dressing: Non-adherent dressing Procedure completion: Tolerated FINAL IMPRESSION 1. Laceration of right knee, initial encounter DISPOSITION Discharge 01/24/2025 12:43:30 AM PATIENT REFERRED TO: Jamie Kerwin [address] [place] [phone] Schedule an appointment as soon as possible for a visit in 1 week DISCHARGE MEDICATIONS: New Prescriptions No medications on file (Comment: Please note this report has been produced using speech recognition software and may contain errors related to that system including errors in grammar, punctuation, and spelling, as well as words and phrases that may be inappropriate. If there are any questions or concerns please feel free to contact the dictating provider for clarification.) Noni Bishop MD (electronically signed) Emergency Medicine Provider [1] Past Medical History: Diagnosis Date Asthma CAD (coronary artery disease) Depression Diabetes (HCC) GERD (gastroesophageal reflux disease) Hyperlipidemia Hypertension [2] No past surgical history on file. [3] No family history on file. [4] Social History Socioeconomic History Marital status: Tobacco Use Smoking status: Never Smokeless tobacco: Never Substance and Sexual Activity Alcohol use: Not Currently Drug use: Never Social Drivers of Health Transportation Needs: No Transportation Needs (05/12/2023) PRAPARE - Transportation Lack of Transportation (Medical): No Lack of Transportation (Non-Medical): No Intimate Partner Violence: Not At Risk (05/12/2023) Humiliation, Afraid, Rape, and Kick questionnaire Fear of Current or Ex-Partner: No Emotionally Abused: No Physically Abused: No Sexually Abused: No Housing Stability: Low Risk (05/12/2023) Housing Stability Vital Sign Unable to Pay for Housing in the Last Year: No Number of Places Lived in the Last Year: 1 Unstable Housing in the Last Year: No Erik Bishop MD 01/24/25 0101 T [facility] 09-03-2024 Note [facility] 08-05-2024 Note [facility] 04-29-2024 Note [facility] 04-23-2024 Note ORIGINAL EXAMINATION: CTA OF THE AORTA WITH LOWER EXTREMITY RUNOFF 04/23/2024 11:53 am TECHNIQUE: CTA of the pelvis and bilateral lower extremities was performed after the administration of intravenous contrast. Multiplanar reformatted images are provided for review. MIP images are provided for review. Automated exposure control, iterative reconstruction, and/or weight based adjustment of the mA/kV was utilized to reduce the radiation dose to as low as reasonably achievable. 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 The liver and spleen are largely excluded from the field of view. No hydroureteronephrosis. The pancreas and adrenal glands are grossly unremarkable. . GI/Bowel: The bowel loops are partially excluded from the field of view. No evidence of obstruction. Pelvis: The uterus is surgically absent. Peritoneum/Retroperitoneum: No lymphadenopathy identified. No free intraperitoneal air or fluid Bones/Soft Tissues: No acute fracture or suspicious osseous lesion identified. VASCULAR Aorta: Severe abdominal aortic atherosclerosis with circumferential mural calcification and extensive mixed density plaque. No significant luminal stenosis or aneurysm. Visceral arteries: Stable moderate celiac ostial stenosis. Conventional celiac branching. Patent superior mesenteric artery. Patent inferior mesenteric artery. Normal variation with duplicated bilateral renal arteries. Densely calcified aortic plaque limits evaluation at the origin of the renal arteries, although they are otherwise patent. Appearance of the renal arteries is similar to the prior study. Pelvic arteries: Severe mixed density pelvic atherosclerotic plaque. Stable mild right common iliac artery stenosis associated with plaque ulceration. Stable moderate, approximately 50% proximal left common iliac artery stenosis associated with mixed density atherosclerotic plaque. Stable mild mid right external iliac artery stenosis associated with stable short segment dissection flap. Short-segment left mid external iliac artery occlusion versus subocclusive stenosis is progressed from the prior study. Severe stenosis of both internal iliac arteries. Right lower extremity: The common femoral arteries patent. The deep femoral artery is patent proximally with multiple tandem mild stenoses distally. The superficial femoral artery is occluded throughout its course. The popliteal artery reconstitutes just above the level of the knee through genicular and intramuscular collaterals. There is moderate stenosis of the popliteal artery at the level of the knee joint associated with mixed density atherosclerotic plaque. The anterior tibial artery is largely patent and gives rise to a patent dorsalis pedis. Calcified atherosclerotic plaque limits evaluation of the tibioperoneal trunk although high-grade stenosis is not favored. The posterior tibial artery is largely patent and gives rise to a patent plantar artery. The peroneal artery is largely patent. Left lower extremity: Small caliber common femoral artery the deep femoral artery is patent. The superficial femoral artery is occluded throughout its course. There is reconstitution of the popliteal artery just above the level of the knee joint through the intramuscular and geniculate collaterals. Mixed density atherosclerotic plaque causes mild stenosis of the popliteal artery distally. The anterior tibial artery is largely patent and gives rise to a patent dorsalis pedis artery. The tibioperoneal trunk is patent. The posterior tibial artery is largely pain in gives rise to a patent plantar artery. The peroneal artery is patent. 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 Three-vessel runoff to both feet. RECOMMENDATIONS: Correlate with FRANCIS and signs and symptoms of limb ischemia. Interpreted by: Ken Flood Preliminary Report By: Ken Flood Electronically signed By Ken Flood Dictated Date: 04/23/2024 4:00:52 PM Prelim Date: 04/23/2024 4:16:17 PM Sign Date: 04/23/2024 4:16:17 PM Ordering Provider: PEMYAN MENA [facility] 01-28-2024 Note ORIGINAL EXAMINATION: THREE XRAY VIEWS OF THE SACRUM/COCCYX 01/28/2024 12:19 pm COMPARISON: None. HISTORY: ORDERING SYSTEM PROVIDED HISTORY: Reason for Exam: pain, injury FINDINGS: There is no evidence of acute fracture. There is normal alignment. No acute joint abnormality. No focal osseous lesion. No focal soft tissue abnormality. IMPRESSION: No acute osseous abnormality. Interpreted by: Meet Gallardo DO Preliminary Report By: Meet Gallardo DO Electronically signed By Meet Gallardo DO Dictated Date: 01/28/2024 4:19:02 PM Prelim Date: 01/28/2024 4:19:37 PM Sign Date: 01/28/2024 4:19:37 PM Ordering Provider: JAMIE SCHROEDER [facility] 01-28-2024 Note ORIGINAL EXAMINATION: 3 XRAY VIEWS OF THE LUMBAR SPINE01/28/2024 12:18 pm LUMBAR SPINE 2 or 3 VIEWS COMPARISON: None HISTORY: ORDERING SYSTEM PROVIDED HISTORY: Reason for Exam: injury, pain FINDINGS: Lumbar vertebral alignment is maintained. Mild multilevel disc height loss and marginal osteophytes seen, most prevalent at L1-2. Moderate multilevel arthropathy is most prevalent in the lower lumbar spine. Atherosclerotic calcifications noted of the aorta. Mild T10 compression deformity is of uncertain age. IMPRESSION: Age indeterminate mild T10 compression deformity Multilevel degenerative changes, as above Interpreted by: eMet Tse MD Preliminary Report By: Meet Tse MD Electronically signed By Meet Tse MD Dictated Date: 01/28/2024 4:19:54 PM Prelim Date: 01/28/2024 4:21:49 PM Sign Date: 01/28/2024 4:21:49 PM Ordering Provider: JAMIE SCHROEDER [facility] 12-07-2023 Note . MICRO - Microbiology PROCEDURE: Blood Culture (bacterial) [*1] SOURCE: Blood BODY SITE: COLLECTED DATE/TIME: 12/02/2023 05:42 EDT RECEIVED DATE/TIME: 12/02/2023 14:22 EDT START DATE/TIME: 12/02/2023 14:22 EDT FREE TEXT SOURCE: FINAL REPORTS Final Report [] Verified Date/Time/Personnel: 12/07/2023 14:59 EDT Blood Culture: No Growth at 5 days. PRELIMINARY REPORTS Preliminary Report [] Verified Date/Time/Personnel: 12/02/2023 14:59 EDT Culture has been received in lab and is no growth to date. Routine cultures are held for 5 days. Performing Locations *1: This test was performed at: [address], [address] [place] [address] ([place]) 12-06-2023 Note . MICRO - Microbiology PROCEDURE: Blood Culture (bacterial) [*1] SOURCE: Blood BODY SITE: COLLECTED DATE/TIME: 12/01/2023 15:04 EDT RECEIVED DATE/TIME: 12/01/2023 19:14 EDT START DATE/TIME: 12/01/2023 19:14 EDT FREE TEXT SOURCE: FINAL REPORTS Final Report [] Verified Date/Time/Personnel: 12/06/2023 19:59 EDT Blood Culture: No Growth at 5 days. PRELIMINARY REPORTS Preliminary Report [] Verified Date/Time/Personnel: 12/01/2023 19:59 EDT Culture has been received in lab and is no growth to date. Routine cultures are held for 5 days. Performing Locations *1: This test was performed at: [address], [address] [place] [address] ([place]) 12-05-2023 Hospital Discharge instructions Patient Education 12/05/2023 17:34:40 Community-Acquired Pneumonia, Adult, Oirc-bf-Vjhj Community-Acquired Pneumonia, Adult Pneumonia is an infection of the lungs. It causes swelling in the airways of the lungs. Mucus and fluid may also build up inside the airways. One type of pneumonia can happen while a person is in a hospital. A different type can happen when a person is not in a hospital (community-acquired pneumonia). What are the causes? This condition is caused by germs (viruses, bacteria, or fungi). Some types of germs can be passed from one person to another. This can happen when you breathe in droplets from the cough or sneeze of an infected person. What increases the risk? You are more likely to develop this condition if you: Have a long-term (chronic) disease, such as: ?Chronic obstructive pulmonary disease (COPD). ?Asthma. ?Cystic fibrosis. ?Congestive heart failure. ?Diabetes. ?Kidney disease. Have HIV. Have sickle cell disease. Have had your spleen removed. Do not take good care of your teeth and mouth (poor dental hygiene). Have a medical condition that increases the risk of breathing in droplets from your own mouth and nose. Have a weakened body defense system (immune system). Are a smoker. Travel to areas where the germs that cause this illness are common. Are around certain animals or the places they live. What are the signs or symptoms? A dry cough. A wet (productive) cough. Fever. Sweating. Chest pain. This often happens when breathing deeply or coughing. Fast breathing or trouble breathing. Shortness of breath. Shaking chills. Feeling tired (fatigue). Muscle aches. How is this treated? Treatment for this condition depends on many things. Most adults can be treated at home. In some cases, treatment must happen in a hospital. Treatment may include: Medicines given by mouth or through an IV tube. Being given extra oxygen. Respiratory therapy. In rare cases, treatment for very bad pneumonia may include: Using a machine to help you breathe. Having a procedure to remove fluid from around your lungs. Follow these instructions at home: Medicines Take boal-gdt-lytrmwm and prescription medicines only as told by your doctor. ?Only take cough medicine if you are losing sleep. If you were prescribed an antibiotic medicine, take it as told by your doctor. Do not stop taking the antibiotic even if you start to feel better. General instructions Sleep with your head and neck raised (elevated). You can do this by sleeping in a recliner or by putting a few pillows under your head. Rest as needed. Get at least 8 hours of sleep each night. Drink enough water to keep your pee (urine) pale yellow. Eat a healthy diet that includes plenty of vegetables, fruits, whole grains, low-fat dairy products, and lean protein. Do not use any products that contain nicotine or tobacco. These include cigarettes, e-cigarettes, and chewing tobacco. If you need help quitting, ask your doctor. Keep all follow-up visits as told by your doctor. This is important. How is this prevented? A shot (vaccine) can help prevent pneumonia. Shots are often suggested for: People older than 65 years of age. People older than 19 years of age who: ?Are having cancer treatment. ?Have long-term (chronic) lung disease. ?Have problems with their body's defense system. You may also prevent pneumonia if you take these actions: Get the flu (influenza) shot every year. Go to the dentist as often as told. Wash your hands often. If you cannot use soap and water, use hand [employer]. Contact a doctor if: You have a fever. You lose sleep because your cough medicine does not help. Get help right away if: You are short of breath and it gets worse. You have more chest pain. Your sickness gets worse. This is very serious if: ?You are an older adult. ?Your body's defense system is weak. You cough up blood. Summary Pneumonia is an infection of the lungs. Most adults can be treated at home. Some will need treatment in a hospital. Drink enough water to keep your pee pale yellow. Get at least 8 hours of sleep each night. This information is not intended to replace advice given to you by your health care provider. Make sure you discuss any questions you have with your health care provider. Document Released: 12/30/2008 Document Revised: 11/03/2019 Document Reviewed: 03/11/2019 [employer] Patient Education 2020 [employer] 12/05/2023 17:33:45 Atrial Fibrillation, Smwp-ek-Ccmg Atrial Fibrillation Atrial fibrillation is a type of heartbeat that is irregular or fast (rapid). If you have this condition, your heart beats without any order. This makes it hard for your heart to pump blood in a normal way. Having this condition gives you more risk for stroke, heart failure, and other heart problems. Atrial fibrillation may start all of a sudden and then stop on its own, or it may become a long-lasting problem. What are the causes? This condition may be caused by heart conditions, such as: High blood pressure. Heart failure. Heart valve disease. Heart surgery. Other causes include: Pneumonia. Obstructive sleep apnea. Lung cancer. Thyroid disease. Drinking too much alcohol. Sometimes the cause is not known. What increases the risk? You are more likely to develop this condition if: You smoke. You are older. You have diabetes. You are overweight. You have a family history of this condition. You exercise often and hard. What are the signs or symptoms? Common symptoms of this condition include: A feeling like your heart is beating very fast. Chest pain. Feeling short of breath. Feeling light-headed or weak. Getting tired easily. Follow these instructions at home: Medicines Take zhep-enf-treyhuw and prescription medicines only as told by your doctor. If your doctor gives you a blood-thinning medicine, take it exactly as told. Taking too much of it can cause bleeding. Taking too little of it does not protect you against clots. Clots can cause a stroke. Lifestyle Do not use any tobacco products. These include cigarettes, chewing tobacco, and e-cigarettes. If you need help quitting, ask your doctor. Do not drink alcohol. Do not drink beverages that have caffeine. These include coffee, soda, and tea. Follow diet instructions as told by your doctor. Exercise regularly as told by your doctor. General instructions If you have a condition that causes breathing to stop for a short period of time (apnea), treat it as told by your doctor. Keep a healthy weight. Do not use diet pills unless your doctor says they are safe for you. Diet pills may make heart problems worse. Keep all follow-up visits as told by your doctor. This is important. Contact a doctor if: You notice a change in the speed, rhythm, or strength of your heartbeat. You are taking a blood-thinning medicine and you see more bruising. You get tired more easily when you move or exercise. You have a sudden change in weight. Get help right away if: You have pain in your chest or your belly (abdomen). You have trouble breathing. You have blood in your vomit, poop, or pee (urine). You have any signs of a stroke. BE FAST is an easy way to remember the main warning signs: ?B - Balance. Signs are dizziness, sudden trouble walking, or loss of balance. ?E - Eyes. Signs are trouble seeing or a change in how you see. ?F - Face. Signs are sudden weakness or loss of feeling in the face, or the face or eyelid drooping on one side. ?A - Arms. Signs are weakness or loss of feeling in an arm. This happens suddenly and usually on one side of the body. ?S - Speech. Signs are sudden trouble speaking, slurred speech, or trouble understanding what people say. ?T - Time. Time to call emergency services. Write down what time symptoms started. You have other signs of a stroke, such as: ?A sudden, very bad headache with no known cause. ?Feeling sick to your stomach (nausea). ?Throwing up (vomiting). ?Jerky movements you cannot control (seizure). These symptoms may be an emergency. Do not wait to see if the symptoms will go away. Get medical help right away. Call your local emergency services (911 in the [place] Do not drive yourself to the hospital. Summary Atrial fibrillation is a type of heartbeat that is irregular or fast (rapid). You are at higher risk of this condition if you smoke, are older, have diabetes, or are overweight. Follow your doctor's instructions about medicines, diet, exercise, and follow-up visits. Get help right away if you think that you have signs of a stroke. This information is not intended to replace advice given to you by your health care provider. Make sure you discuss any questions you have with your health care provider. Document Released: 04/22/2009 Document Revised: 09/17/2018 Document Reviewed: 09/04/2018 [employer] Patient Education 2020 [employer] Follow Up Care 12/01/2023 12:09:32 [facility] Address: [address] [place] [phone] When:12/10/2023 14:00:00 Comments:This is your post-hospital appointment. Follow-up as scheduled. [facility] Address: [address] [place] [place] [address]- When:01/15/2024 10:00:00 Comments:This is your post-hospital cardiology follow-up appointment. It is scheduled for after you wear your event monitor to discuss the results. [facility] 12-05-2023 Note Discharge Instructions Thank you for allowing [facility] to assist you with your healthcare needs. The following is important discharge information regarding your hospital visit. Your Care Team JAMIE SCHROEDER RACHEL APRN-CNP Your Diagnosis Anemia Anxiety and depression Atrial fibrillation CAP (community acquired pneumonia) CKD (chronic kidney disease) stage 3, GFR 30-59 ml/min COPD Diabetes mellitus Hypertension What to do next Instructions From Your Doctor You were admitted for pneumonia and treated with IV antibiotics. You had a forceful, painful cough and wheezing. You were started on prednisone and Mucinex. A prescription has been sent to your pharmacy for cefuroxime 300 mg twice daily x 7 days, a prednisone taper, Mucinex x 7 days. Please take each of these medications to completion. Please continue to use your incentive spirometer at home as well as use your inhalers. You are found to have new onset atrial fibrillation. You were started on Cardizem (diltiazem) 240 mg daily. This is a long-acting medication. You are also started on a blood thinner, Eliquis (apixaban) 2.5 mg twice daily. This is to prevent you from having strokes. With any blood thinner there is a risk for bleeding however the benefits of preventing strokes outweighs the risk of bleeding. You are being discharged with an order for lab work to be done to evaluate your blood counts. This will be forwarded to Jamie Schroeder. You are also being discharged with an order for a 30-day event monitor. This will be mailed to you with instructions. Scheduled Follow-Up Appointments Appointment Type When With Where [facility] 12/10/2023 02:00 PM JAMIE BAZAN [address] [phone] [facility] Follow Up 01/15/2024 10:00 AM EDT RADHA GROVER [facility] Follow Up Appointments Follow Up with RADHA GROVER When 01/15/2024 10:00 AM EDT Why: This is your post-hospital cardiology follow-up appointment. It is scheduled for after you wear your event monitor to discuss the results. Where: [address] [facility] [place] [address]- Follow Up with JAMIE SCHROEDER When 12/10/2023 02:00 PM EDT Why: This is your post-hospital appointment. Follow-up as scheduled. Where: [address] [place] [address]- [phone] The Following Activity and Diet Have Been Ordered for You Discharge Activity - Ordered -- Resume your pre-hospitalization activity, 12/05/23 16:38:00 EDT Discharge Diet - Ordered -- No changes were made to your diet during your hospital stay. Please resume your pre hospitalization diet on discharge., 12/05/23 16:38:00 EDT The Following Equipment Has Been Ordered for You No qualifying data available. The Following Treatments Have Been Ordered for You Discharge Labs Discharge Outpatient Labwork - Ordered -- CBC, New anticoagulation, Your appointment is: 12/11/23 8:00:00 EDT, Results Notify to: JAMIE SCHROEDER, 12/05/23 17:03:00 EDT Discharge Radiology No qualifying data available. Other Therapies Discharge Event Monitor Instructions - Ordered -- 12/04/23 8:59:23 EDT, You have been ordered mobile outpatient telemetry. You should receive a device in the mail with further instructions. If you have not received a device within 7 days after discharge, please call [facility] at [phone]. Post Acute Orders No qualifying data available. Allergies Lyrica (Swelling) Percocet 10-325 (Itching) codeine (Dizziness) ferrous sulfate (IV iron) gabapentin (Swelling) tetracycline (Nausea) Medications Please ask your primary doctor or pharmacist before taking any other medication not listed, including over the counter drugs, herbal medications, vitamins and or supplements as they may interact with your home medications. What How Much When Why Instructions Last Dose New apixaban (Eliquis 2.5 mg oral tablet) 1 tab(s) by mouth Two (2) times a day Pickup at [facility] New cefdinir (cefdinir 300 mg oral capsule) 1 cap by mouth Every 12 hours Duration: 7 Days Pickup at [id number] New dilTIAZem (Cardizem CD 120 mg/ 24 hours oral capsule, extended release) 2 cap by mouth Once a day Pickup at [facility] New guaiFENesin (Mucinex 600 mg oral tablet, extended release) 2 tab(s) by mouth Two (2) times a day Duration: 7 Days Pickup at [facility] Unchanged acetaminophen (acetaminophen 500 mg oral tablet) 2 tab(s) by mouth Three (3) times a day as needed for pain or fever Unchanged albuterol (Ventolin HFA MDI (90 mcg/ inh) inhalation aerosol) 2 puff(s) by inhalation Every 4 hours as needed for as needed for wheezing COPD Duration: 90 Days Unchanged albuterol-ipratropium (DuoNeb) 3 Milliliter by inhalation Every 4 hours as needed for Wheezing Unchanged ammonium lactate topical (Lac-Hydrin 12% topical cream) 1 application Topical Two (2) times a day Dry skin dermatitis Unchanged ascorbic acid (Vitamin C) 500 Milligram by mouth Once a day Unchanged calcium carbonate (calcium carbonate 500 mg (200 mg elemental calcium) oral tablet, chewable) 1 tab(s) Chewed Two (2) times a day Osteopenia Unchanged cholecalciferol (Vitamin D3) Once a day unsure of IU, thinks 1000 Unchanged cloNIDine (cloNIDine 0.2 mg oral tablet) 1 tab(s) by mouth Daily at bedtime Hypertension Duration: 90 Days Unchanged clopidogrel (clopidogrel 75 mg oral tablet) 1 tab(s) by mouth Once a day Unchanged cyanocobalamin (Vitamin B12 1000 mcg oral tablet) 1 tab(s) by mouth Once a day Unchanged diphenhydrAMINE (Benadryl 25 mg oral tablet) 1 tab(s) by mouth Daily at bedtime as needed for as needed for insomnia Unchanged DME (DME MISCellaneous) See instructions True Metrix 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 EA=BOX of 100 Unchanged DME (DME MISCellaneous) See instructions True Metrix glucometer Type II DM w/ CKD st Unchanged DME (DME MISCellaneous) See instructions True Metrix test strips to test BID for Type II DM w/ CKD st 3 - EA=BOX of 100 Unchanged dulaglutide (dulaglutide 1.5 mg/ 0.5 mL subcutaneous solution) 1.5 Milligram Subcutaneous Every week Type 2 diabetes mellitus Duration: 90 Days Unchanged dulaglutide (Trulicity Pen 1.5 mg/ 0.5 mL subcutaneous solution) 1.5 Milligram Subcutaneous Takes on friday Unchanged DULoxetine (DULoxetine 30 mg oral delayed release capsule) 1 cap by mouth Daily at bedtime Anxiety and depression Unchanged ferrous gluconate (ferrous gluconate 324 mg (38 mg elemental iron) oral tablet) 1 tab(s) by mouth Once a day Iron deficiency Unchanged fluticasone-salmeterol (Advair Diskus 250 mcg-50 mcg inhalation powder) 1 puff(s) by inhalation Two (2) times a day EA=1 Diskus Unchanged glipiZIDE (glipiZIDE 2.5 mg oral tablet, extended release) 1 tab(s) by mouth Once a day Diabetes mellitus Duration: 90 Days Unchanged lisinopril (lisinopril 5 mg oral tablet) 1 tab(s) by mouth Once a day Hypertension Unchanged pantoprazole (pantoprazole 40 mg oral enteric coated tablet) 1 tab(s) by mouth Once a day GERD (gastroesophageal reflux disease) Pharmacy Information [facility]: [address] [place], [place] [phone] [id number]: [address] [place], [place] [id number] [phone] Please take this list to your next doctor s visit. Bring all medications you take, including over the counter medications, herbals and other supplements with you to your doctor s visit. Patients and families are reminded to discard old lists and to update any records with all medication providers or retail pharmacies. Medication Leaflets diltiazem (oral/injection) (dil GAYLA a zem) Cardizem, Cardizem CD, Cardizem LA, Cartia XT, DilTIAZem (Eqv-Cardizem CD), DilTIAZem (Eqv-Dilacor XR), DilTIAZem (Eqv-Tiazac), DilTIAZem Hydrochloride ER, DilTIAZem Hydrochloride SR, Dilt-XR, Matzim LA, Taztia XT, Tiadylt ER, Tiazac What is the most important information I should know about diltiazem? You should not use diltiazem if you have very low blood pressure, a serious heart condition such as 'sick sinus syndrome' or 'AV block' (unless you have a pacemaker), or if you have recently had a heart attack and you have a build-up of fluid in your lungs. What is diltiazem? Diltiazem oral is used in adults alone or in combination with other medicines to treat hypertension (high blood pressure) or symptoms of angina (chest pain). Diltiazem injection is used in adults to treat certain heart rhythm disorders such as atrial fibrillation or atrial flutter, or dangerously rapid heartbeats (tachycardia). Lowering blood pressure may lower your risk of a stroke or heart attack. Diltiazem may also be used for purposes not listed in this medication guide. What should I discuss with my healthcare provider before using diltiazem? You should not use diltiazem if you are allergic to it, or if you have: a serious heart condition such as 'sick sinus syndrome' or 'AV block' (unless you have a pacemaker); very low blood pressure; if your heart cannot pump blood properly; or if you have recently had a heart attack and you have a build-up of fluid in your lungs. You may not be able to use diltiazem if you have: heart failure; certain heart rhythm disorders (such as 'Afib' or atrial flutter with Onuqg-Nbosqbshw-Aawam syndrome); a heart condition that causes you to have very fast heartbeats; or if you are receiving an intravenous beta-andrea (such as atenolol, metoprolol, or propranolol). Tell your doctor if you have ever had: congestive heart failure or heart problems; low blood pressure or slow heart rate; or liver disease. It is not known whether diltiazem will harm an unborn baby. Tell your doctor if you are or plan to become . Tell your doctor if you are . How should I use diltiazem? Follow all directions on your prescription label and read all medication guides or instruction sheets. Your doctor may occasionally change your dose. Use the medicine exactly as directed. Diltiazem injection is given into a vein by a healthcare provider. Your heart rate will be constantly monitored using an electrocardiogram or ECG (sometimes called an EKG). Your blood pressure and other vital signs will also be watched closely. Diltiazem oral is taken by mouth. Your pharmacist can provide more information about how to take this medicine. Your dose needs may change if you switch to a different brand, strength, or form of this medicine. Some forms of diltiazem oral cannot be crushed or chewed, and some forms can be opened and mixed with applesauce. Ask your pharmacist how to take this medicine. Your blood pressure and liver function will need to be checked often. If you have high blood pressure, keep using this medicine even if you feel well. High blood pressure often has no symptoms. Store at room temperature away from moisture, heat, and light. What happens if I miss a dose? Diltiazem injection is used when needed and does not have a daily dose. Call your doctor if the medicine is not effective. Take diltiazem oral as soon as you can, but skip the missed dose if it is almost time for your next dose. Do not take two doses at one time. What happens if I overdose? Seek emergency medical attention or call the Poison Help line at . Overdose symptoms may include low blood pressure, slow heart rate, severe dizziness, or fainting. What should I avoid while using diltiazem? Avoid drinking alcohol while taking diltiazem extended-release capsules. Drinking alcohol with this medicine can cause side effects. Avoid taking an herbal supplement containing [place]'s wort. Avoid getting up too fast from a sitting or lying position, or you may feel dizzy. Avoid driving or hazardous activity until you know how this medicine will affect you. Your reactions could be impaired. What are the possible side effects of diltiazem? Get emergency medical help if you have signs of an allergic reaction (hives, difficult breathing, swelling in your face or throat) or a severe skin reaction (fever, sore throat, burning eyes, skin pain, red or purple skin rash with blistering and peeling). Call your doctor at once if you have: chest pain, fast, slow, or uneven heart rate; a light-headed feeling, like you might pass out; heart problems--swelling, rapid weight gain, feeling short of breath; or liver problems--loss of appetite, stomach pain (upper right side), tiredness, itching, dark urine, carlos-colored stools, jaundice (yellowing of the skin or eyes). Common side effects may include: swelling; infections, flu symptoms; trouble breathing; headache, dizziness, weakness; slower heart rate; pain, bruising, swelling, or irritation where the medicine was injected; nausea, upset stomach; or rash. This is not a complete list of side effects and others may occur. Call your doctor for medical advice about side effects. You may report side effects to FDA at 7-827-HMT-8388. What other drugs will affect diltiazem? Sometimes it is not safe to use certain medicines at the same time. Some drugs can affect your blood levels of other drugs you use, which may increase side effects or make the medicines less effective. Many drugs can affect diltiazem. This includes prescription and lufi-ied-qbkcwme medicines, vitamins, and herbal products. Not all possible interactions are listed here. Tell your doctor about all other medicines you use. Where can I get more information? Your doctor or pharmacist can provide more information about diltiazem. Remember, keep this and all other medicines out of the reach of children, never share your medicines with others, and use this medication only for the indication prescribed. Every effort has been made to ensure that the information provided by [employer]. [employer]') is accurate, up-to-date, and complete, but no guarantee is made to that effect. Drug information contained herein may be time sensitive. [employer] information has been compiled for use by healthcare practitioners and consumers in the [place] and therefore [employer] does not warrant that uses outside of the [place] are appropriate, unless specifically indicated otherwise. [employer] drug information does not endorse drugs, diagnose patients or recommend therapy. [employer] drug information is an informational resource designed to assist licensed healthcare practitioners in caring for their patients and/or to serve consumers viewing this service as a supplement to, and not a substitute for, the expertise, skill, knowledge and judgment of healthcare practitioners. The absence of a warning for a given drug or drug combination in no way should be construed to indicate that the drug or drug combination is safe, effective or appropriate for any given patient. [facility] does not assume any responsibility for any aspect of healthcare administered with the aid of information [facility] provides. The information contained herein is not intended to cover all possible uses, directions, precautions, warnings, drug interactions, allergic reactions, or adverse effects. If you have questions about the drugs you are taking, check with your doctor, nurse or pharmacist. Copyright 1346-[address] [facility]. Version: 19.. Revision Date: 02/21/2023. apixaban (a PIX a ban) Killian What is the most important information I should know about apixaban? Apixaban increases your risk of severe or fatal bleeding, especially if you take certain medicines at the same time (including some azyp-ndz-rpxphpo medicines). Tell your doctor about all medicines you have recently used. Call your doctor at once if you have signs of bleeding such as: easy bruising, unusual bleeding, unexpected pain or swelling, feeling very weak or dizzy, bleeding gums, nosebleeds, heavy menstrual bleeding, blood in your urine or stools, coughing up blood or vomit that looks like coffee grounds, or any bleeding that will not stop. Apixaban can cause a very serious blood clot around your spinal cord that can lead to long-term or permanent paralysis. This type of blood clot can occur during a spinal tap or spinal anesthesia (epidural), especially if you have a genetic spinal defect, if you use a spinal catheter, if you've had spinal surgery or repeated spinal taps, or if you use other drugs that can affect blood clotting. Get emergency medical help if you have symptoms of a spinal cord blood clot such as tingling, numbness, or muscle weakness especially in your legs and feet. Do not stop taking apixaban unless your doctor tells you to. Stopping suddenly can increase your risk of blood clot or stroke. What is apixaban? Apixaban is used to lower the risk of stroke caused by a blood clot in people with a heart rhythm disorder called atrial fibrillation. Apixaban is also used after hip or knee replacement surgery to prevent a type of blood clot called deep vein thrombosis (DVT), which can lead to blood clots in the lungs (pulmonary embolism). Apixaban is also used to treat DVT or pulmonary embolism (PE), and to lower your risk of having a repeat DVT or PE. Apixaban may also be used for purposes not listed in this medication guide. What should I discuss with my healthcare provider before taking apixaban? You should not take apixaban if you are allergic to it, or if you have active bleeding from a surgery, injury, or other cause. Apixaban may cause you to bleed more easily, especially if you have a bleeding disorder that is inherited or caused by disease. Tell your doctor if you have an artificial heart valve, or if you have ever had: bleeding problems; antiphospholipid syndrome, especially if you have a triple positive antibody test; or liver or kidney disease. Apixaban can cause a very serious blood clot around your spinal cord if you undergo a spinal tap or receive spinal anesthesia (epidural). This type of blood clot could cause long-term paralysis, and may be more likely to occur if: you have a spinal catheter in place or if a catheter has been recently removed; you have a history of spinal surgery or repeated spinal taps; you have recently had a spinal tap or epidural anesthesia; you take aspirin or other NSAIDs (nonsteroidal anti-inflammatory drugs)--ibuprofen (Advil, Motrin), naproxen (Aleve), diclofenac, indomethacin, meloxicam, and others; or you are using other medicines to treat or prevent blood clots. Taking apixaban may increase the risk of bleeding while you are or during your delivery. Tell your doctor if you are or plan to become . Do not breastfeed. How should I take apixaban? Follow all directions on your prescription label and read all medication guides or instruction sheets. Your doctor may occasionally change your dose. Use the medicine exactly as directed. You may take apixaban with or without food. If you cannot swallow a tablet whole, crush it and mix with water, apple juice, or applesauce. Swallow the mixture right away without chewing. A crushed tablet mixture may also be given through a nasogastric (NG) feeding tube. Read and carefully follow any Instructions for Use provided with your medicine. Apixaban can make it easier for you to bleed, even from a minor injury. Seek medical attention if you have bleeding that will not stop. Tell your doctor if you have a planned surgery or dental work. You may need to stop taking apixaban for a short time. Do not stop taking apixaban unless your doctor tells you to. If you stop taking apixaban for any reason, your doctor may prescribe another medicine to prevent blood clots. Store at room temperature away from moisture and heat. What happens if I miss a dose? Take the missed dose on the same day you remember it. Take your next dose at the regular time and stay on your twice-daily schedule. Do not take two doses at one time. Get your prescription refilled before you run out of medicine completely. What happens if I overdose? Seek emergency medical attention or call the Poison Help line at . What should I avoid while taking apixaban? Avoid activities that may increase your risk of bleeding or injury. Use extra care while shaving or brushing your teeth. What are the possible side effects of apixaban? Get emergency medical help if you have signs of an allergic reaction: hives; chest pain, wheezing, difficult breathing; feeling light-headed; swelling of your face, lips, tongue, or throat. Also seek emergency medical attention if you have symptoms of a spinal blood clot such as tingling, numbness, or muscle weakness especially in your legs and feet. Call your doctor at once if you have: easy bruising, unusual bleeding (nose, mouth, vagina, or rectum), bleeding from wounds or needle injections, any bleeding that will not stop; heavy menstrual bleeding; headache, dizziness, weakness, feeling like you might pass out; urine that looks red, pink, or brown; or black or bloody stools, coughing up blood or vomit that looks like coffee grounds. This is not a complete list of side effects and others may occur. Call your doctor for medical advice about side effects. You may report side effects to FDA at 2-465-AKG-6511. What other drugs will affect apixaban? Sometimes it is not safe to use certain medications at the same time. Some drugs can affect your blood levels of other drugs you take, which may increase side effects or make the medications less effective. Many other drugs (including some xgqn-blj-nlqdika medicines) can increase your risk of bleeding or blood clots. Tell your doctor about all medicines you have recently used, especially: any other medicines to treat or prevent blood clots; a blood thinner such as heparin or warfarin (Coumadin, Jantoven); an antidepressant; or aspirin or other NSAID (nonsteroidal anti-inflammatory drug) used long-term. This list is not complete and many other drugs may affect apixaban. This includes prescription and lpas-njo-cbeilgf medicines, vitamins, and herbal products. Not all possible drug interactions are listed here. Where can I get more information? Your pharmacist can provide more information about apixaban. Remember, keep this and all other medicines out of the reach of children, never share your medicines with others, and use this medication only for the indication prescribed. Every effort has been made to ensure that the information provided by [employer]. ('[employer]') is accurate, up-to-date, and complete, but no guarantee is made to that effect. Drug information contained herein may be time sensitive. [employer] information has been compiled for use by healthcare practitioners and consumers in the [place] and therefore [employer] does not warrant that uses outside of the [place] are appropriate, unless specifically indicated otherwise. [employer] drug information does not endorse drugs, diagnose patients or recommend therapy. [employer] drug information is an informational resource designed to assist licensed healthcare practitioners in caring for their patients and/or to serve consumers viewing this service as a supplement to, and not a substitute for, the expertise, skill, knowledge and judgment of healthcare practitioners. The absence of a warning for a given drug or drug combination in no way should be construed to indicate that the drug or drug combination is safe, effective or appropriate for any given patient. [employer] does not assume any responsibility for any aspect of healthcare administered with the aid of information [employer] provides. The information contained herein is not intended to cover all possible uses, directions, precautions, warnings, drug interactions, allergic reactions, or adverse effects. If you have questions about the drugs you are taking, check with your doctor, nurse or pharmacist. Copyright 7138-2205 [employer]. Version: 6.01. Revision Date: 03/20/2021. Education Materials Community-Acquired Pneumonia, Adult Pneumonia is an infection of the lungs. It causes swelling in the airways of the lungs. Mucus and fluid may also build up inside the airways. One type of pneumonia can happen while a person is in a hospital. A different type can happen when a person is not in a hospital (community-acquired pneumonia). What are the causes? This condition is caused by germs (viruses, bacteria, or fungi). Some types of germs can be passed from one person to another. This can happen when you breathe in droplets from the cough or sneeze of an infected person. What increases the risk? You are more likely to develop this condition if you: Have a long-term (chronic) disease, such as: ? Chronic obstructive pulmonary disease (COPD). ? Asthma. ? Cystic fibrosis. ? Congestive heart failure. ? Diabetes. ? Kidney disease. Have HIV. Have sickle cell disease. Have had your spleen removed. Do not take good care of your teeth and mouth (poor dental hygiene). Have a medical condition that increases the risk of breathing in droplets from your own mouth and nose. Have a weakened body defense system (immune system). Are a smoker. Travel to areas where the germs that cause this illness are common. Are around certain animals or the places they live. What are the signs or symptoms? A dry cough. A wet (productive) cough. Fever. Sweating. Chest pain. This often happens when breathing deeply or coughing. Fast breathing or trouble breathing. Shortness of breath. Shaking chills. Feeling tired (fatigue). Muscle aches. How is this treated? Treatment for this condition depends on many things. Most adults can be treated at home. In some cases, treatment must happen in a hospital. Treatment may include: Medicines given by mouth or through an IV tube. Being given extra oxygen. Respiratory therapy. In rare cases, treatment for very bad pneumonia may include: Using a machine to help you breathe. Having a procedure to remove fluid from around your lungs. Follow these instructions at home: Medicines Take zksw-pll-izolusm and prescription medicines only as told by your doctor. ? Only take cough medicine if you are losing sleep. If you were prescribed an antibiotic medicine, take it as told by your doctor. Do not stop taking the antibiotic even if you start to feel better. General instructions Sleep with your head and neck raised (elevated). You can do this by sleeping in a recliner or by putting a few pillows under your head. Rest as needed. Get at least 8 hours of sleep each night. Drink enough water to keep your pee (urine) pale yellow. Eat a healthy diet that includes plenty of vegetables, fruits, whole grains, low-fat dairy products, and lean protein. Do not use any products that contain nicotine or tobacco. These include cigarettes, e-cigarettes, and chewing tobacco. If you need help quitting, ask your doctor. Keep all follow-up visits as told by your doctor. This is important. How is this prevented? A shot (vaccine) can help prevent pneumonia. Shots are often suggested for: People older than 65 years of age. People older than 19 years of age who: ? Are having cancer treatment. ? Have long-term (chronic) lung disease. ? Have problems with their body's defense system. You may also prevent pneumonia if you take these actions: Get the flu (influenza) shot every year. Go to the dentist as often as told. Wash your hands often. If you cannot use soap and water, use hand [employer]. Contact a doctor if: You have a fever. You lose sleep because your cough medicine does not help. Get help right away if: You are short of breath and it gets worse. You have more chest pain. Your sickness gets worse. This is very serious if: ? You are an older adult. ? Your body's defense system is weak. You cough up blood. Summary Pneumonia is an infection of the lungs. Most adults can be treated at home. Some will need treatment in a hospital. Drink enough water to keep your pee pale yellow. Get at least 8 hours of sleep each night. This information is not intended to replace advice given to you by your health care provider. Make sure you discuss any questions you have with your health care provider. Document Released: 12/30/2008 Document Revised: 11/03/2019 Document Reviewed: 03/11/2019 [employer] Patient Education 2020 [employer] Atrial Fibrillation Atrial fibrillation is a type of heartbeat that is irregular or fast (rapid). If you have this condition, your heart beats without any order. This makes it hard for your heart to pump blood in a normal way. Having this condition gives you more risk for stroke, heart failure, and other heart problems. Atrial fibrillation may start all of a sudden and then stop on its own, or it may become a long-lasting problem. What are the causes? This condition may be caused by heart conditions, such as: High blood pressure. Heart failure. Heart valve disease. Heart surgery. Other causes include: Pneumonia. Obstructive sleep apnea. Lung cancer. Thyroid disease. Drinking too much alcohol. Sometimes the cause is not known. What increases the risk? You are more likely to develop this condition if: You smoke. You are older. You have diabetes. You are overweight. You have a family history of this condition. You exercise often and hard. What are the signs or symptoms? Common symptoms of this condition include: A feeling like your heart is beating very fast. Chest pain. Feeling short of breath. Feeling light-headed or weak. Getting tired easily. Follow these instructions at home: Medicines Take gmce-plp-vywgzcv and prescription medicines only as told by your doctor. If your doctor gives you a blood-thinning medicine, take it exactly as told. Taking too much of it can cause bleeding. Taking too little of it does not protect you against clots. Clots can cause a stroke. Lifestyle Do not use any tobacco products. These include cigarettes, chewing tobacco, and e-cigarettes. If you need help quitting, ask your doctor. Do not drink alcohol. Do not drink beverages that have caffeine. These include coffee, soda, and tea. Follow diet instructions as told by your doctor. Exercise regularly as told by your doctor. General instructions If you have a condition that causes breathing to stop for a short period of time (apnea), treat it as told by your doctor. Keep a healthy weight. Do not use diet pills unless your doctor says they are safe for you. Diet pills may make heart problems worse. Keep all follow-up visits as told by your doctor. This is important. Contact a doctor if: You notice a change in the speed, rhythm, or strength of your heartbeat. You are taking a blood-thinning medicine and you see more bruising. You get tired more easily when you move or exercise. You have a sudden change in weight. Get help right away if: You have pain in your chest or your belly (abdomen). You have trouble breathing. You have blood in your vomit, poop, or pee (urine). You have any signs of a stroke. BE FAST is an easy way to remember the main warning signs: ? B - Balance. Signs are dizziness, sudden trouble walking, or loss of balance. ? E - Eyes. Signs are trouble seeing or a change in how you see. ? F - Face. Signs are sudden weakness or loss of feeling in the face, or the face or eyelid drooping on one side. ? A - Arms. Signs are weakness or loss of feeling in an arm. This happens suddenly and usually on one side of the body. ? S - Speech. Signs are sudden trouble speaking, slurred speech, or trouble understanding what people say. ? T - Time. Time to call emergency services. Write down what time symptoms started. You have other signs of a stroke, such as: ? A sudden, very bad headache with no known cause. ? Feeling sick to your stomach (nausea). ? Throwing up (vomiting). ? Jerky movements you cannot control (seizure). These symptoms may be an emergency. Do not wait to see if the symptoms will go away. Get medical help right away. Call your local emergency services (911 in the [place] Do not drive yourself to the hospital. Summary Atrial fibrillation is a type of heartbeat that is irregular or fast (rapid). You are at higher risk of this condition if you smoke, are older, have diabetes, or are overweight. Follow your doctor's instructions about medicines, diet, exercise, and follow-up visits. Get help right away if you think that you have signs of a stroke. This information is not intended to replace advice given to you by your health care provider. Make sure you discuss any questions you have with your health care provider. Document Released: 04/22/2009 Document Revised: 09/17/2018 Document Reviewed: 09/04/2018 [employer] Patient Education 2020 [employer] Additional Information VACCINATE! IT SAVES LIVES! Members of the community who have not yet received the COVID-19 vaccine and would like to receive it can visit one of [facility] vaccine clinics. There are many vaccine clinic locations within the [facility]. For locations and available times, please visit [email or web address] It is important to note that some COVID mobile vaccine clinics are held outdoors and may be canceled in rainy or stormy conditions. To learn more about pediatric vaccinations (ages 5-11), we invite you to visit the [facility] webpage. [email or web address] [email or web address] To learn more about the COVID-19 vaccine, we invite you to visit the CDC website for a list of frequently asked questions.https://www.cdc.gov/co ronavirus/2019-ncov/vaccines/faq .html [facility] [employer] Patient Portal Access Instructions: Stay connected with your healthcare team and access your personal medical information anytime with the [facility] Patient Portal. Please follow the directions below to create your [facility] account: 1.Access the email account you provided upon registration to the hospital/physician office.2.Look for an invitation email from [facility].3.Open the email and access the invitation link: Accept Invitation to [facility].4.Fill in the required laughlin to create your account. To access your account, visit [email or web address]. Click the blue button labeled Access Patient Portal and then log in with the username and password that you created in the steps above. You will be able to view your test results, lab results, a summary of your visits, upcoming appointments and more. There is also a convenient messaging option where you can send secure messages to your provider. In addition, you will have the ability to download any documents or summaries to your computer and/or send the information securely to a physician. Remember that your healthcare information is confidential, so carefully consider who you will allow to register on the [facility] Patient Portal for access to your information. You can also access the [facility] [employer] Patient Portal on the [facility] [employer]. Simply click on Patient Portal and then log into your account. If you would like to receive a full copy of your medical records, please contact the [facility] Medical Records Department by calling [phone], Friday through Friday between 8 a.m. and 4:30 p.m. HOW TO SAFELY DISPOSE OF PRESCRIPTION MEDICATIONS Please use one of the following methods to safely dispose of your unused medications. 1.Use a drug disposal kit: the drug disposal pouch allows you to safely discard your old and unused drugs. Ask your nurse to give you one when you are discharged.2.Visit a local take-back location: Many local pharmacies and police departments have programs that collect old and unwanted prescription drugs. Call your local pharmacy or go to http://bit.[employer] Vision/1Q3Ph6j to find one close to you.3.Make use of household items: Use cat litter or old coffee grounds to dispose medications if other options are not available. Mix your drugs with these household products, seal them in an airtight container and throw it into the garbage. Call [facility]: [phone] to be sure your drugs can be disposed of in this way. Some medicines may require a different approach.4.Never flush your medications down the toilet. IF YOU HAVE BEEN PRESCRIBED AN OPIOID FOR PAIN If you have been prescribed an opioid (such as hydrocodone, oxycodone or morphine), it is critical to understand the possible side effects and risks of opioid pain medications. Even when taken as directed, opioids can have several side effects including: Tolerance, meaning you might need to take more of a medication for the same pain relief. Nausea, vomiting and/or constipation. Sleepiness, dizziness, dry mouth, confusion, depression or itching. Physical dependence, meaning you have withdrawal symptoms when a medication is stopped, can develop within a few days. KNOW YOUR RESPONSIBILITIES It is important to know exactly how much and how often to take the opioid pain medications you are prescribed. Never take opioids in higher amounts or more often than prescribed. Do not combine opioids with alcohol or other drugs that cause drowsiness, such as benzodiazepines, also known as benzos, including diazepam and alprazolam, muscle relaxants or sleep aids. Never sell or share prescription opioids. This is illegal. Store opioids in a secure place and out of reach of others (including children, family, friends and visitors). The last page of this document has been signed and retained as a CHART COPY. Signatures Patient Education Materials Community-Acquired Pneumonia, Adult, [id number] Atrial Fibrillation, [id number] Medication Leaflets diltiazem (oral/injection), apixaban My discharge plan and instructions have been reviewed and explained to me and IMOHSEN JOYCE A understand my current condition and have read and understand these discharge instructions. I have received a written copy of the plan/instructions. If I have questions, I am aware that I should contact my doctor. Patient/Budget Consultant Signature: Date/Time: Relationship to Patient: Witness Name/Signature: Date/Time: [facility] 12-04-2023 Note Date of Service 12/04/2023 Chief Complaint Pneumonia, A-fib Subjective 83-year-old female with past medical history significant for hypertension, hyperlipidemia, type 2 diabetes mellitus, COPD, PVD, TIAs, CKD stage III. ? Patient presented to [facility] emergency department on 12/01/2023 with a 2-day history of dyspnea and weakness. She was febrile at 38.2, tachycardic at 120, normotensive with adequate oxygenation on room air. White blood cell count 19.8, hemoglobin 9.8, 9% bands, sodium 130, anion gap 18, creatinine 1.82 with a GFR of 27, magnesium level 1.6, CRP 17.4, troponin 20. COVID/flu/RSV negative. X-ray chest showed airspace opacities in the left lower lung infectious versus inflammatory. EKG showed sinus tachycardia. Patient was given IV fluids, ceftriaxone, doxycycline and subsequently admitted. On admission cardiology SHALE MINER was consulted due to paroxysmal A-fib. Echocardiogram done on 12/01 showed LVEF of 60 to 65% with diastolic dysfunction. RVSP 35. Patient was started on diltiazem and apixaban with plans for event monitor upon discharge. 12/02, atypicals negative. Patient had an acute on chronic kidney injury. This has been gradually improving. On exam today patient denies any fever or chills. Admits continued cough, wheezing, musculoskeletal pain from coughing. Denies any chest pain or palpitations. Admits that she was having a racing heart when she was up ambulating. Objective Vitals and Measurements T: 37.0 C (Oral) TMIN: 36.8 C (Oral) TMAX: 37.2 C (Oral) HR: 96(Monitored) RR: 20 BP: 125/61 SpO2: 92% WT: 58.3 kg Intake and Output 7AM Yesterday to 7AM Today Intake and Output (Last 24 hours) Intake Oral Intake 480.00 Output Stool Count 0.00 Urine Count 6.00 Emesis Count 0.00 Total Summary Total Intake 480.00 Total Output 0.00 Fluid Balance 480.00 Physical Exam GEN: Appears chronically ill CHEST: Normal S1 and S2. Rhythm is irregularly irregular. Expiratory wheezing throughout. ABD: Positive bowel sounds x 4 quads. Soft, nondistended, nontender. EXT: No significant deformity or joint abnormality. No edema. Peripheral pulses intact. NEURO: Sensation grossly intact SKIN: Skin color normal PSYCH: The mental examination revealed the patient was alert and oriented x 4 Weight Current Weight Dosing Weight: 56.3 kg (12/01/23) Current Weight: 58.3 kg (12/04/23) Dosing Weight: 57 kg (12/01/23) Current Weight: 59.4 kg (12/03/23) Medications Medications (27) Active Scheduled: (18) ammonium lactate Lotion 12% 1 bony, Topical, BID apixaban 2.5 mg tablet 2.5 mg 1 tab(s), Oral, BID ascorbic acid 500 mg tablet 500 mg 1 tab(s), Oral, qDay cefTRIAXone 1 g, IV Piggyback, qDay cholecalciferol 25 mcg tablet (Vit D3 1000 units) 25 mcg 1 tab(s), Oral, qDay clonidine 0.1 mg tablet 0.2 mg 2 tab(s), Oral, qHS clopidogrel 75 mg Tablet 75 mg 1 tab(s), Oral, qDay cyanocobalamin 500 mcg Tablet 1,000 mcg 2 tab(s), Oral, qDay diltiazem 120 mg/24 hours ER capsule 120 mg 1 cap(s), Oral, qDay dulaglutide 1.5 mg/0.5 mL Soln PEN 1.5 mg 0.5 mL, Subcutaneous, Friday duloxetine [address] capsule 30 mg 1 cap(s), Oral, qHS ferrous sulfate 325 mg Tablet 325 mg 1 tab(s), Oral, qDay fluticasone-salmeterol 250 mcg-50 mcg Powder Inhaler 1 puff(s), Inhalation, BIDRT glipizide 2.5 mg ER tablet 2.5 mg 1 tab(s), Oral, qDay guaifenesin 600 mg ER 1,200 mg 2 tab(s), Oral, BID lisinopril 5 mg tablet 5 mg 1 tab(s), Oral, qDay pantoprazole 20 mg EC tablet 40 mg 2 tab(s), Oral, qDay predniSONE 20 mg tablet 40 mg 2 tab(s), Oral, qDayM Continuous: (0) PRN: (9) acetaminophen 325 mg Tablet 650 mg 2 tab(s), Oral, q4h acetaminophen 325 mg Tablet 650 mg 2 tab(s), Oral, q4h albuterol - ipratropium 2.5 mg-0.5 mg/3 mL Inhal Joleen UD 3 mL, Inhalation, q4hRT benzonatate 100 mg Capsule 100 mg 1 cap(s), Oral, TID calcium carbonate 500 mg Chewable 500 mg 1 tab(s), Chewed, TID diphenhydramine 25 mg tablet 25 mg 1 tab(s), Oral, qHS guaifenesin 100 mg/5 mL Liquid SUGAR-FREE 120 mL 200 mg 10 mL, Oral, q4h melatonin 3 mg tablet 6 mg 2 tab(s), Oral, qHS ondansetron 2 mg/ 1 mL 2 mL INJ 4 mg 2 mL, IV Push, q4h Lab Results 12/03 05:26 WBC: 12.3 H Hgb: 8.8 L Hct: 26.3 L Platelet: 332 Glucose Level: 123 H Sodium Level: 142 Potassium Level: 4.6 BUN: 32 H Creatinine Lvl (s): 1.08 H 12/02 05:20 WBC: 14.8 H Hgb: 8.7 L Hct: 26.5 L Platelet: 295 Glucose Level: 119 H Sodium Level: 142 Potassium Level: 4.2 BUN: 52 H Creatinine Lvl (s): 1.25 H EKG Electrocardiogram [AOH] (EKG [AOH]) - InProcess -- 12/03/23 16:44:00 EDT, to confirm rate due to telemetry inconsistency Assessment/Plan 1. CAP (community acquired pneumonia) 2. COPD 3. Atrial fibrillation 4. Diabetes mellitus Pneumonia continue ceftriaxone. Patient has adequate oxygenation on room air. She is having quite a bit of coughing but not much sputum production. Increase Mucinex to 1200 mg twice daily. She is still having expiratory wheezing throughout. Will start prednisone 40 mg daily due to COPD. Additionally continue inhaled bronchodilators for COPD. Atrial fibrillation patient was seen by cardiology SHALE MINER. She was transition to long-acting diltiazem. Continue apixaban she remains in atrial fibrillation but rate is better controlled. Her rate was increased with ambulation. Patient would benefit from another stay overnight to evaluate heart rate with activity. Likely she will be able to be discharged home tomorrow. Type 2 diabetes mellitus- Glucose goal 180 or less and avoid hypoglycemia. Corrective sliding scale insulin. ADA diet. DVT prophylaxis: Apixaban Code Status: Full code Plan of care discussed with patient. All questions answered. Patient verbalizes understanding is agreeable to plan of care. This dictation was performed using voice recognition software and may include grammatical and/or spelling errors. Anticipated Date of Discharge 12/04 Time Spent 46 minutes Digitally Signed by SAMRA HERNANDEZ on 12/04/2023 04:13 PM [facility] 12-04-2023 Note ORIGINAL EXAMINATION: TWO XRAY VIEWS OF THE CHEST12/04/2023 11:36 am COMPARISON: 12/01/2023 HISTORY: ORDERING SYSTEM PROVIDED HISTORY: Reason for Exam: PNA, FINDINGS: There is persistent consolidation in the left lower lung/lingula without significant change. Suspect trace left pleural effusion. No other acute findings or significant change. IMPRESSION: Left lingular consolidation and small left pleural effusion, follow-up to complete resolution. Interpreted by: Al Trent MD Preliminary Report By: Al Trent MD Electronically signed By Al Trent MD Dictated Date: 12/04/2023 11:43:21 AM Prelim Date: 12/04/2023 11:44:14 AM Sign Date: 12/04/2023 11:44:14 AM Ordering Provider: SAMRA HERNANDEZ [facility] 12-04-2023 Note Date of Service 12/04/23 Chief Complaint PAF Subjective This is a pleasant 83-year-old female patient who was admitted to the hospital for pneumonia and shortness of breath. Patient states the last couple days she had not been feeling well and she got to the point she was very short of breath so subsequently she came into the ER for further evaluation admitted to [facility]. The first night she was here she went into atrial fibrillation with RVR, she did spontaneously convert rhythm. Metoprolol was initiated yesterday. Patient has continued to have some short runs of atrial fibrillation. At baseline her heart rate is in sinus rhythm at 110. Yesterday diltiazem was initiated and PAF has resolved. Blood pressure maintaining stable. Patient does report that she has a history of tachycardia, although, she states she has never been told she had atrial fibrillation. Patient is asymptomatic with it. She does have a history of TIA episodes. She denies any other cardiac history. She denies chest pain, chest pressure, dizziness, diaphoresis, and syncope. She reports shortness of breath improved today. Echocardiogram done showed normal EF and normal valve function. Echo Summary: 1. Left ventricle: The cavity size is normal. Wall thickness is at the upper limits of normal. Systolic function is normal. The estimated ejection fraction is 60-65%. Wall motion is normal; there are no regional wall motion abnormalities. Diastolic dysfunction is present. 2. Mitral valve: The annulus is calcified. No significant valve disease is observed. 3. Right ventricle: The RV systolic pressure by Doppler is 35 mm Hg. 4. Right atrium: The estimated right atrial pressure is 3 mm Hg. Objective Vitals and Measurements T: 37.2 C (Oral) TMIN: 36.4 C (Oral) TMAX: 37.2 C (Oral) HR: 89(Monitored) RR: 20 BP: 133/57 SpO2: 93% WT: 58.3 kg Intake and Output 7AM Yesterday to 7AM Today Intake and Output (Last 24 hours) Intake Oral Intake 500.00 Output Urine Count 6.00 Total Summary Total Intake 500.00 Total Output 0.00 Fluid Balance 500.00 Physical Exam GENERAL: Well nourished; no acute distress. PSYCHIATRIC: Alert and oriented x 3, cooperative, mood normal, affect normal. HEAD: Normocephalic, nontraumatic head. EYES: No drainage noted. NECK: Supple, no posterior midline tenderness. Normal range of motion. No JVD noted. CARDIAC: Regular rate, regular rhythm, no murmurs noted. No S3 or S4 noted. RESPIRATORY: Regular rate and depth; no distress, lung sounds clear bilaterally. ABDOMEN: Soft, nontender. Normal bowel sounds. EXTREMITIES: No edema noted. Dorsalis Pedis pulse +2/4 bilaterally. Posterior Tibialis pulse +2/4 bilaterally. DERM: Warm and dry. Normal turgor. Weight Current Weight Dosing Weight: 56.3 kg (12/01/23) Current Weight: 58.3 kg (12/04/23) Dosing Weight: 57 kg (12/01/23) Current Weight: 59.4 kg (12/03/23) Medications Medications (26) Active Scheduled: (17) ammonium lactate Lotion 12% 1 bony, Topical, BID apixaban 2.5 mg tablet 2.5 mg 1 tab(s), Oral, BID ascorbic acid 500 mg tablet 500 mg 1 tab(s), Oral, qDay cefTRIAXone 1 g, IV Piggyback, qDay cholecalciferol 25 mcg tablet (Vit D3 1000 units) 25 mcg 1 tab(s), Oral, qDay clonidine 0.1 mg tablet 0.2 mg 2 tab(s), Oral, qHS clopidogrel 75 mg Tablet 75 mg 1 tab(s), Oral, qDay cyanocobalamin 500 mcg Tablet 1,000 mcg 2 tab(s), Oral, qDay diltiazem 120 mg/24 hours ER capsule 120 mg 1 cap(s), Oral, qDay dulaglutide 1.5 mg/0.5 mL Soln PEN 1.5 mg 0.5 mL, Subcutaneous, Deng duloxetine [address] capsule 30 mg 1 cap(s), Oral, qHS ferrous sulfate 325 mg Tablet 325 mg 1 tab(s), Oral, qDay fluticasone-salmeterol 250 mcg-50 mcg Powder Inhaler 1 puff(s), Inhalation, BIDRT glipizide 2.5 mg ER tablet 2.5 mg 1 tab(s), Oral, qDay guaifenesin 600 mg ER 600 mg 1 tab(s), Oral, BID lisinopril 5 mg tablet 5 mg 1 tab(s), Oral, qDay pantoprazole 20 mg EC tablet 40 mg 2 tab(s), Oral, qDay Continuous: (0) PRN: (9) acetaminophen 325 mg Tablet 650 mg 2 tab(s), Oral, q4h acetaminophen 325 mg Tablet 650 mg 2 tab(s), Oral, q4h albuterol - ipratropium 2.5 mg-0.5 mg/3 mL Inhal Joleen UD 3 mL, Inhalation, q4hRT benzonatate 100 mg Capsule 100 mg 1 cap(s), Oral, TID calcium carbonate 500 mg Chewable 500 mg 1 tab(s), Chewed, TID diphenhydramine 25 mg tablet 25 mg 1 tab(s), Oral, qHS guaifenesin 100 mg/5 mL Liquid SUGAR-FREE 120 mL 200 mg 10 mL, Oral, q4h melatonin 3 mg tablet 6 mg 2 tab(s), Oral, qHS ondansetron 2 mg/ 1 mL 2 mL INJ 4 mg 2 mL, IV Push, q4h Lab Results 12/03 05:26 WBC: 12.3 H Hgb: 8.8 L Hct: 26.3 L Platelet: 332 Glucose Level: 123 H Sodium Level: 142 Potassium Level: 4.6 BUN: 32 H Creatinine Lvl (s): 1.08 H 12/02 05:20 WBC: 14.8 H Hgb: 8.7 L Hct: 26.5 L Platelet: 295 Glucose Level: 119 H Sodium Level: 142 Potassium Level: 4.2 BUN: 52 H Creatinine Lvl (s): 1.25 H EKG Electrocardiogram [AOH] (EKG [AOH]) - InProcess -- 12/03/23 16:44:00 EDT, to confirm rate due to telemetry inconsistency Assessment/Plan 1. Atrial fibrillation PAF improved with initiation of diltiazem. Patient tolerating. Will continue diltiazem and Eliquis. [id number] score 7. *Transition short acting Cardizem to long-acting Cardizem today 820 mg once a day. Continue Eliquis. *May be discharged home from cardiac standpoint, recommend discharge with event monitor *Follow-up in cardiology office in 6 weeks post event monitor. Ordered: Event Monitor - Mobile Outpatient Telemetry (7-30 days) 2. Hypertension Controlled. Blood pressure goal is less than 140/90. Tolerating medication. Checks labs with PCP. 3. COPD Patient has severe COPD and follows with pulmonary. 4. Anemia Hemoglobin 8.8 today. Thought to be due to iron deficiency anemia and some hemodilution. On iron supplementation. 5. CAP (community acquired pneumonia) Per hospitalist. Orders: dilTIAZem, Start: 12/04/23 9:00:00 EDT, Dose = 120 mg, = 1 cap(s), Oral, qDay, 12/04/23 7:38:00 EDT Discharge Event Monitor Instructions I reviewed all notes/diagnostic tests/Labs from the ER/Hospitalist BONY I discussed plan of care with hospitalist BONY Samra Jones APRN. This note was generated using a voice recognition system. There may be incorrect words, spelling's, and punctuation that were missed in checking this note before saving. Anticipated Date of Discharge Per hospitalist Time Spent 35 minutes Digitally Signed by RADHA GROVER on 12/04/2023 09:00 AM [facility] 12-03-2023 Nurse Progress note Tele monitor alarming tachy 200s and timo 20-40s inconsistent with rhythm seen on monitor and inconsistent with patient assessment/apical pulse (apical pulse 98 upon assessment). Pt denies any pain or discomfort. EKG done. Telemetry leads changed and lead changed on monitor. HR 80s currently. EKG showing sinus rhythm. Digitally Signed by Dottie Mobley RN on 12/03/2023 04:53 PM [facility] 12-03-2023 Note Date of Service 12/03/2023 Chief Complaint dyspnea Subjective Patient seen and evaluated this morning while resting in bed. She states that she is feeling much better and has been on room air since yesterday. She still reports that she feels dyspneic when walking to the bathroom but still feels that it is better. She was seen by Radha Grover CNP this morning and understands the plan of starting an anticoagulant and cardizem for heart rate control. She denies any palpitations and has been unaware that her heart rate is elevated at times. She further denies any fever, chills, chest pain, abdominal pain, nausea or dysuria. She feels that she is ready to go home but then states she is feeling short of breath again. Will notify respiratory therapy to give patient a breathing treatment. All questions answered. Objective Vitals and Measurements T: 36.4 C (Oral) TMIN: 36.4 C (Oral) TMAX: 36.9 C (Oral) HR: 102(Monitored) RR: 20 BP: 112/75 SpO2: 96% WT: 59.4 kg Intake and Output 7AM Yesterday to 7AM Today Intake and Output (Last 24 hours) Intake Oral Intake 980.00 Output Stool Count 1.00 Urine Count 4.00 Total Summary Total Intake 980.00 Total Output 0.00 Fluid Balance 980.00 Physical Exam General: No acute distress. Patient is alert, chronically ill-appearing. Skin: No rash. Skin is warm, dry and intact. HEENT: Head is normocephalic, atraumatic. Pupils are equal, round and reactive. Neck: Supple. No lymphadenopathy, thyromegaly. Lungs: Bilaterally clear but diminished without crepitation or wheeze. Mild conversational dyspnea noted. Moist cough. Heart: Heart is irregular rhythm. No murmurs, gallops or rubs. Abdomen: Abdomen is soft, nontender. Bowels sounds present in all quadrants. Extremities: No clubbing, cyanosis, or edema. Peripheral pulses palpable. No calf tenderness. Neurological: Patient is awake and alert to person, place and time. Following simple commands, moving all extremities. Weight Current Weight Dosing Weight: 56.3 kg (12/01/23) Current Weight: 59.4 kg (12/03/23) Dosing Weight: 57 kg (12/01/23) Current Weight: 61.7 kg (12/02/23) Medications Medications (26) Active Scheduled: (17) ammonium lactate Lotion 12% 1 bony, Topical, BID apixaban 2.5 mg tablet 2.5 mg 1 tab(s), Oral, BID ascorbic acid 500 mg tablet 500 mg 1 tab(s), Oral, qDay cefTRIAXone 1 g, IV Piggyback, qDay cholecalciferol 25 mcg tablet (Vit D3 1000 units) 25 mcg 1 tab(s), Oral, qDay clonidine 0.1 mg tablet 0.2 mg 2 tab(s), Oral, qHS clopidogrel 75 mg Tablet 75 mg 1 tab(s), Oral, qDay cyanocobalamin 500 mcg Tablet 1,000 mcg 2 tab(s), Oral, qDay diltiazem 30 mg tablet 30 mg 1 tab(s), Oral, QID dulaglutide 1.5 mg/0.5 mL Soln PEN 1.5 mg 0.5 mL, Subcutaneous, Friday duloxetine [address] capsule 30 mg 1 cap(s), Oral, qHS ferrous sulfate 325 mg Tablet 325 mg 1 tab(s), Oral, qDay fluticasone-salmeterol 250 mcg-50 mcg Powder Inhaler 1 puff(s), Inhalation, BIDRT glipizide 2.5 mg ER tablet 2.5 mg 1 tab(s), Oral, qDay guaifenesin 600 mg ER 600 mg 1 tab(s), Oral, BID lisinopril 5 mg tablet 5 mg 1 tab(s), Oral, qDay pantoprazole 20 mg EC tablet 40 mg 2 tab(s), Oral, qDay Continuous: (0) PRN: (9) acetaminophen 325 mg Tablet 650 mg 2 tab(s), Oral, q4h acetaminophen 325 mg Tablet 650 mg 2 tab(s), Oral, q4h albuterol - ipratropium 2.5 mg-0.5 mg/3 mL Inhal Joleen UD 3 mL, Inhalation, q4hRT benzonatate 100 mg Capsule 100 mg 1 cap(s), Oral, TID calcium carbonate 500 mg Chewable 500 mg 1 tab(s), Chewed, TID diphenhydramine 25 mg tablet 25 mg 1 tab(s), Oral, qHS guaifenesin 100 mg/5 mL Liquid SUGAR-FREE 120 mL 200 mg 10 mL, Oral, q4h melatonin 3 mg tablet 6 mg 2 tab(s), Oral, qHS ondansetron 2 mg/ 1 mL 2 mL INJ 4 mg 2 mL, IV Push, q4h Lab Results 12/02 05:20 WBC: 14.8 H Hgb: 8.7 L Hct: 26.5 L Platelet: 295 Glucose Level: 119 H Sodium Level: 142 Potassium Level: 4.2 BUN: 52 H Creatinine Lvl (s): 1.25 H 12/01 05:34 WBC: 18.2 H Hgb: 8.5 L Hct: 25.2 L Platelet: 248 Glucose Level: 159 H Sodium Level: 134 L Potassium Level: 4.1 BUN: 59 H Creatinine Lvl (s): 1.60 H Imaging Results and Diagnostics XR Chest 1 View Result Date: December 01, 2023 Verified By: TONY BARTH MD CLINICAL STATEMENT: IMPRESSION: Airspace opacities in the left lower lung likely infectious or inflammatory in etiology. Imaging follow-up to resolution is recommended. I have personally reviewed the images of this examination and agree with the resident's findings and interpretation. EKG No qualifying data available. Assessment/Plan 1. CAP (community acquired pneumonia) Acute, new onset. Continue Ceftriaxone 1 gram IV daily. Discontinued doxycycline as atypicals negative. Continue supplemental oxygen as needed to maintain oxygen saturations above 92% - wean as able. Continue duoneb aerosols as needed and scheduled. Repeat CBC, BMP and magnesium level in the am. 2. Atrial fibrillation New onset. Consult placed to cardiology for recommendation - seen. Echocardiogram shows EF 60-65 with diastolic dysfunction and RVSP 35. Cardiology changed to cardizem 30 mg QID today and will change to once daily dose tomorrow. Started on apixaban 2.5 mg PO BID. Monitor CBC closely and for signs of bleeding. Patient reports recent scope with no evidence of GI bleed. Patient will likely have to go home with order for event monitor. Continue to monitor on telemetry. 3. Diabetes mellitus Chronic. Blood sugar checks before meals and at bedtime. Cover with corrective sliding scale insulin. Continue ADA diet. Blood glucose goal of 180 or less and avoid hypoglycemia. 4. COPD Chronic, not in exacerbation. Continue duoneb aerosols as needed for shortness of breath or wheezing. 5. Hypertension Chronic. Continue current antihypertensives. SBP goal of 140 or less. 6. Anxiety and depression Chronic. Continue current home medications. 7. CKD (chronic kidney disease) stage 3, GFR 30-59 ml/min Chronic. Baseline GFR 40-45 - 41 this am. Repeat BMP in the am. DVT prophylaxis with apixaban. Code status: Full Code. Labs, diagnostic test and progress notes reviewed as noted in HPI. Plan of care discussed with patient. All questions answered. Patient verbalizes understanding and is agreeable with plan of care. This case was discussed with collaborating physician, Dr. Aicha Cunningham. Anticipated Date of Discharge next 24-48 hours Time Spent 35 minutes spent reviewing past diagnostic tests, reviewing lab results, vital sign trends, medical history, reviewing medications and ordering home medications, examining patient, discussed plan of care with nursing and director of social media marketing, collaborating with physician, and documenting in chart. Digitally Signed by EMMY GARVIN on 12/03/2023 04:28 PM [facility] 12-03-2023 Note Date of Service 12/03/23 Chief Complaint Afib Subjective This is a pleasant 83-year-old female patient who was admitted to the hospital for pneumonia and shortness of breath. Patient states the last couple days she had not been feeling well and she got to the point she was very short of breath so subsequently she came into the ER for further evaluation admitted to [facility]. The first night she was here she went into atrial fibrillation with RVR, she did spontaneously convert rhythm. Metoprolol was initiated yesterday. Patient has continued to have some short runs of atrial fibrillation. At baseline her heart rate is in sinus rhythm at 110. Patient does report that she has a history of tachycardia, although, she states she has never been told she had atrial fibrillation. Patient is asymptomatic with it. She does have a history of TIA episodes. She denies any other cardiac history. She denies chest pain, chest pressure, dizziness, diaphoresis, and syncope. She reports shortness of breath improved today. Echocardiogram done yesterday showed normal EF and normal valve function. Echo Summary: 1. Left ventricle: The cavity size is normal. Wall thickness is at the upper limits of normal. Systolic function is normal. The estimated ejection fraction is 60-65%. Wall motion is normal; there are no regional wall motion abnormalities. Diastolic dysfunction is present. 2. Mitral valve: The annulus is calcified. No significant valve disease is observed. 3. Right ventricle: The RV systolic pressure by Doppler is 35 mm Hg. 4. Right atrium: The estimated right atrial pressure is 3 mm Hg. [1] Objective Vitals and Measurements T: 36.8 C (Oral) TMIN: 36.5 C (Oral) TMAX: 36.9 C (Oral) HR: 98(Apical) RR: 18 BP: 119/79 SpO2: 96% WT: 59.4 kg Intake and Output 7AM Yesterday to 7AM Today Intake and Output (Last 24 hours) Intake Oral Intake 960.00 Output Stool Count 2.00 Urine Count 4.00 Emesis Count 0.00 Total Summary Total Intake 960.00 Total Output 0.00 Fluid Balance 960.00 Physical Exam GENERAL: Well nourished; no acute distress. PSYCHIATRIC: Alert and oriented x 3, cooperative, mood normal, affect normal. HEAD: Normocephalic, nontraumatic head. EYES: No drainage noted. NECK: Supple, no posterior midline tenderness. Normal range of motion. No JVD noted. CARDIAC: Regular rate, regular rhythm, no murmurs noted. No S3 or S4 noted. RESPIRATORY: Regular rate and depth; no distress, lung sounds diminished with rhonchi bilaterally. ABDOMEN: Soft, nontender. Normal bowel sounds. EXTREMITIES: No edema noted. Dorsalis Pedis pulse +2/4 bilaterally. Posterior Tibialis pulse +2/4 bilaterally. DERM: Warm and dry. Normal turgor. Weight Current Weight Dosing Weight: 56.3 kg (12/01/23) Current Weight: 59.4 kg (12/03/23) Dosing Weight: 57 kg (12/01/23) Current Weight: 61.7 kg (12/02/23) Medications Medications (26) Active Scheduled: (16) ammonium lactate Lotion 12% 1 bony, Topical, BID apixaban 2.5 mg tablet 2.5 mg 1 tab(s), Oral, BID ascorbic acid 500 mg tablet 500 mg 1 tab(s), Oral, qDay cefTRIAXone 1 g, IV Piggyback, qDay cholecalciferol 25 mcg tablet (Vit D3 1000 units) 25 mcg 1 tab(s), Oral, qDay clonidine 0.1 mg tablet 0.2 mg 2 tab(s), Oral, qHS clopidogrel 75 mg Tablet 75 mg 1 tab(s), Oral, qDay cyanocobalamin 500 mcg Tablet 1,000 mcg 2 tab(s), Oral, qDay diltiazem 30 mg tablet 30 mg 1 tab(s), Oral, QID dulaglutide 1.5 mg/0.5 mL Soln PEN 1.5 mg 0.5 mL, Subcutaneous, Friday duloxetine [address] capsule 30 mg 1 cap(s), Oral, qHS ferrous sulfate 325 mg Tablet 325 mg 1 tab(s), Oral, qDay fluticasone-salmeterol 250 mcg-50 mcg Powder Inhaler 1 puff(s), Inhalation, BIDRT glipizide 2.5 mg ER tablet 2.5 mg 1 tab(s), Oral, qDay lisinopril 5 mg tablet 5 mg 1 tab(s), Oral, qDay pantoprazole 20 mg EC tablet 40 mg 2 tab(s), Oral, qDay Continuous: (1) Lactated Ringers 1,000 mL 1,000 mL, Intravenous, 50 mL/hr PRN: (9) acetaminophen 325 mg Tablet 650 mg 2 tab(s), Oral, q4h acetaminophen 325 mg Tablet 650 mg 2 tab(s), Oral, q4h albuterol - ipratropium 2.5 mg-0.5 mg/3 mL Inhal Joleen UD 3 mL, Inhalation, q4hRT benzonatate 100 mg Capsule 100 mg 1 cap(s), Oral, TID calcium carbonate 500 mg Chewable 500 mg 1 tab(s), Chewed, TID diphenhydramine 25 mg tablet 25 mg 1 tab(s), Oral, qHS guaifenesin 100 mg/5 mL Liquid SUGAR-FREE 120 mL 200 mg 10 mL, Oral, q4h melatonin 3 mg tablet 6 mg 2 tab(s), Oral, qHS ondansetron 2 mg/ 1 mL 2 mL INJ 4 mg 2 mL, IV Push, q4h Lab Results 12/02 05:20 WBC: 14.8 H Hgb: 8.7 L Hct: 26.5 L Platelet: 295 Glucose Level: 119 H Sodium Level: 142 Potassium Level: 4.2 BUN: 52 H Creatinine Lvl (s): 1.25 H 12/01 05:34 WBC: 18.2 H Hgb: 8.5 L Hct: 25.2 L Platelet: 248 Glucose Level: 159 H Sodium Level: 134 L Potassium Level: 4.1 BUN: 59 H Creatinine Lvl (s): 1.60 H EKG No qualifying data available. Assessment/Plan 1. Atrial fibrillation Patient still having runs of atrial fibrillation. Baseline heart rate is 110. [id number] score 7 *Discontinue metoprolol since EF is good and start Cardizem 30 mg 4 times daily. Will plan on transitioning to long-acting Cardizem tomorrow. *Start Eliquis 2.5 mg twice daily. She does meet the low-dose requirements with age and weight. *Discharge home on event monitor. 2. Hypertension Blood pressure controlled. Will start Cardizem today. Will monitor blood pressure closely. 3. COPD Patient has severe COPD and follows with pulmonary. 4. Anemia Hemoglobin 8.7 today. Thought to be due to iron deficiency anemia and a little bit of hemodilution. Will check occult stool given the fact that we are going to start Eliquis. 5. CAP (community acquired pneumonia) Per hospitalist. Orders: apixaban, Start: 12/03/23 9:00:00 EDT, Dose = 2.5 mg, = 1 tab(s), Oral, BID, Indication for Use Atrial fibrillation, 12/03/23 8:01:00 EDT dilTIAZem, Start: 12/03/23 9:00:00 EDT, Dose = 30 mg, = 1 tab(s), Oral, QID, 12/03/23 8:02:00 EDT Stool for Occult Blood (Lab) I reviewed all notes/diagnostic tests/Labs from the ER/Hospitalist BONY I discussed plan of care with hospitalist BONY Emmy Garvin APRN This note was generated using a voice recognition system. There may be incorrect words, spelling's, and punctuation that were missed in checking this note before saving. Anticipated Date of Discharge Tomorrow Time Spent 35 min [1] Echocardiogram, Adult - CV; [facility] 12/02/2023 14:38 EDT Digitally Signed by RADHA GROVER on 12/03/2023 08:17 AM [facility] 12-02-2023 Note Date of Service 12/02/2023 Chief Complaint feeling weak and dyspnea since friday History of Present Illness Patient is an 83-year-old female, who follows with Jamie Schroeder CNP with a past medical history significant for hypertension, hyperlipidemia, type 2 diabetes, COPD and chronic kidney disease, presented to [facility] emergency department with the chief complaint of dyspnea, cough and weakness. Patient states these symptoms started on Friday. She has had a nonproductive cough but is unsure if she has had any fever. She lives alone in a small apartment and typically gets around with the use of a cane. However, over the last few days, she was too weak to get up and just walk around her apartment. She has been using her inhalers at home without any improvement in her symptoms. She was eating and drinking better yesterday but feels that she had a poor intake for days prior to yesterday. She denies any chills, chest pain, abdominal pain, nause or dysuria. In the emergency department, chest x-ray revealed airspace opacities in the left lower lung likely infectious or inflammatory in etiology. White blood cell count 19.8. CBC remarkable for hemoglobin 9.8 and hematocrit 29.7. BMP significant for glucose 194, sodium 130, BUN 70 and creatinine 1.82. Lactic acid 1.6. Magnesium level 1.6. CRP 17.4. COVID-19, RSV and Flu A and B negative. Patient was administered Vancomycin 1000 mg IV, Ceftriaxone 1 gram IV, Doxycycline 100 mg IV and magnesium sulfate 4 grams IV in the ED. The case was discussed with the ED physician who recommended admission due to significant left lower lobe pneumonia. Patient will be transferred to telemetry for further evaluation and treatment. We will continue Ceftriaxone 1 gram IV daily and doxycycline 100 mg IV BID. We will de-escalate antibiotics when atypical results are back. We will check urine for legionella. We will check mycoplasma antibody. Start duoneb aerosols as needed and scheduled. May use supplemental oxygen as needed to maintain oxygen saturations above 92%. Wean oxygen as able. Repeat CBC and BMP in the am. Patient seen and evaluated this morning while resting in bed. She feels that she is breathing a little better this morning. Lungs are clear but diminished on auscultation. She is on 2L of oxygen this morning with good oxygen saturations. Patient states that her cough is nonproductive. Per nursing, patient went into atrial fibrillation shortly after her arrival to the unit last night. Her magnesium level had been 1.6 and 4 grams magnesium sulfate IV were ordered but not started until she came back to the floor. She converted a short time after the magnesium was started. Patient complaining of pain in her right upper arm thought to be due to IV infiltration. She has a scar on her right shoulder from recent shoulder replacement. Area evaluated and does not appear to be red or inflamed. Nursing alternating hot/cold. We will consult cardiology for recommendation on new onset of atrial fibrillation. Will obtain echocardiogram to assess heart function. All questions answered. Review of Systems Review of Systems: Reviewed in detail, including general health, HEENT, cardiovascular, respiratory, gastrointestinal, genitourinary, endocrine, musculoskeletal, neurologic, vascular, skin, and psychiatric. All are negative except for those listed in the History of Present Illness. Physical Exam Vitals and Measurements T: 36.5 C (Oral) TMIN: 36.5 C (Oral) TMAX: 37.6 C (Oral) HR: 116(Apical) RR: 20 BP: 96/62 SpO2: 95% HT: 152.4 cm WT: 61.7 kg BMI: 24.24 Weight Current Weight Dosing Weight: 56.3 kg (12/01/23) Current Weight: 61.7 kg (12/02/23) Dosing Weight: 57 kg (12/01/23) General: No acute distress. Patient is alert, chronically ill-appearing. Skin: No rash. Skin is warm, dry and intact. HEENT: Head is normocephalic, atraumatic. Pupils are equal, round and reactive. Neck: Supple. No lymphadenopathy, thyromegaly. Lungs: Bilaterally clear but diminished without crepitation or wheeze. Moist-sounding cough noted. Mild conversational dyspnea noted. Heart: Heart is regular rhythm, S1, S2. No murmurs, gallops or rubs. Abdomen: Abdomen is soft, nontender. Bowels sounds present in all quadrants. Extremities: No clubbing, cyanosis, or edema. Peripheral pulses palpable. No calf tenderness. Neurological: Patient is awake and alert to person, place and time. Following simple commands, moving all extremities. Lab Results 12/01 05:34 WBC: 18.2 H Hgb: 8.5 L Hct: 25.2 L Platelet: 248 Glucose Level: 159 H Sodium Level: 134 L Potassium Level: 4.1 BUN: 59 H Creatinine Lvl (s): 1.60 H 11/30 14:58 WBC: 19.8 H Hgb: 9.8 L Hct: 29.7 L Platelet: 292 Protime: 12.8 PT International Ratio: 1.1 Glucose Level: 194 H Sodium Level: 130 L Potassium Level: 4.4 BUN: 70 H Creatinine Lvl (s): 1.82 H Imaging Results and Diagnostics XR Chest 1 View Result Date: December 01, 2023 Verified By: TONY BARTH MD CLINICAL STATEMENT: IMPRESSION: Airspace opacities in the left lower lung likely infectious or inflammatory in etiology. Imaging follow-up to resolution is recommended. I have personally reviewed the images of this examination and agree with the resident's findings and interpretation. Assessment/Plan 1. CAP (community acquired pneumonia) Acute, new onset. Continue Ceftriaxone 1 gram IV daily. Continue doxycycline 100 mg IV BID - de-escalate when atypicals result. Obtain urine and check for legionella. Check mycoplasma antibody. Continue supplemental oxygen as needed to maintain oxygen saturations above 92% - wean as able. Continue duoneb aerosols as needed and scheduled. Repeat CBC, BMP and magnesium level in the am. 2. Atrial fibrillation New onset. Consult placed to cardiology for recommendation. Obtain echocardiogram to evaluate cardiac function. Cardiology started metoprolol 25 mg PO qday. Will decide on anticoagulation tomorrow after echo read. Patient will likely have to go home with order for event monitor. Continue to monitor on telemetry here. 3. Diabetes mellitus Chronic. Blood sugar checks before meals and at bedtime. Cover with corrective sliding scale insulin. Start ADA diet. Blood glucose goal of 180 or less and avoid hypoglycemia. 4. COPD Chronic, not in exacerbation. Continue duoneb aerosols as needed for shortness of breath or wheezing. 5. Hypertension Chronic. Continue current antihypertensives. SBP goal of 140 or less. 6. Anxiety and depression Chronic. Continue current home medications. 7. CKD (chronic kidney disease) stage 3, GFR 30-59 ml/min Chronic. Baseline GFR 40-45 - down to 27 in ED but improved to 31 this am. Start LR @ 50cc/hr. Repeat BMP in the am. DVT prophylaxis with heparin sc. Code status: Full Code. Labs, diagnostic test and progress notes reviewed as noted in HPI. Plan of care discussed with patient. All questions answered. Patient verbalizes understanding and is agreeable with plan of care. This case was discussed with collaborating physician, Dr. Aicha Cunningham. 75 minutes spent reviewing past diagnostic tests, reviewing lab results, vital sign trends, medical history, reviewing medications and ordering home medications, examining patient, collaborating with physician, and documenting in chart. Problem List/Past Medical History Ongoing Acute cystitis Anemia Anxiety Carotid bruit CKD (chronic kidney disease) stage 3, GFR 30-59 ml/min COPD Depression Dry skin dermatitis GERD (gastroesophageal reflux disease) GI bleed History of TIA (transient ischemic attack) HTN (hypertension) Hyperlipidemia Insomnia Iron deficiency Left knee pain Neuropathy Stage 3 severe COPD by GOLD classification Type 2 diabetes mellitus Type 2 diabetes with stage 3 chronic kidney disease GFR 30-59 Historical PVD (peripheral vascular disease) Transient cerebral ischemia Uncontrolled diabetes mellitus Procedure/Surgical History History of total arthroplasty of right shoulder: 10/27/23 Occult blood screenin06/12/18 Abdominal hysterectomy: 1999 Laparoscopic female sterilization YAG laser anterior capsulotomy Medications Home Medications (22) Active acetaminophen 500 mg oral tablet 1,000 mg = 2 tab(s), PRN, Oral, TID Advair Diskus 250 mcg-50 mcg inhalation powder 1 puff(s), Inhalation, BID Benadryl 25 mg oral tablet 25 mg = 1 tab(s), PRN, Oral, qHS calcium carbonate 500 mg (200 mg elemental calcium) oral tablet, chewable 500 mg = 1 tab(s), Chewed, BID cloNIDine 0.2 mg oral tablet 0.2 mg = 1 tab(s), Oral, qHS clopidogrel 75 mg oral tablet 75 mg = 1 tab(s), Oral, qDay DME MISCellaneous See Instructions DME MISCellaneous See Instructions DME MISCellaneous See Instructions dulaglutide 1.5 mg/0.5 mL subcutaneous solution 1.5 mg, Subcutaneous, qWeek DULoxetine 30 mg oral delayed release capsule 30 mg = 1 cap(s), Oral, qHS DuoNeb 3 mL, PRN, Inhalation, q4h ferrous gluconate 324 mg (38 mg elemental iron) oral tablet 324 mg = 1 tab(s), Oral, qDay glipiZIDE 2.5 mg oral tablet, extended release 2.5 mg = 1 tab(s), Oral, qDay Lac-Hydrin 12% topical cream 1 bony, Topical, BID lisinopril 5 mg oral tablet 5 mg = 1 tab(s), Oral, qDay pantoprazole 40 mg oral enteric coated tablet 40 mg = 1 tab(s), Oral, qDay Trulicity Pen 1.5 mg/0.5 mL subcutaneous solution 1.5 mg, Subcutaneous Ventolin HFA MDI (90 mcg/inh) inhalation aerosol 2 puff(s), PRN, Inhalation, q4h Vitamin B12 1000 mcg oral tablet 1,000 mcg = 1 tab(s), Oral, qDay Vitamin C 500 mg, Oral, qDay Vitamin D3 , qDay Allergies Lyrica (Swelling) Percocet 10-325 (Itching) codeine (Dizziness) ferrous sulfate (IV iron) gabapentin (Swelling) tetracycline (Nausea) Social History Smoking Status - 05/16/2018 Former smoker Alcohol - Denies Alcohol Use, 05/16/2018 Use: Past. 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 OTher risks in environment: no smoke exposure., 10/03/2022 Nutrition/Health Type of diet: Regular, Has a protein drink every day. Appetite Good. Eating Difficulties None. Caffeine intake amount: Occ iced tea-decaf, decaf coffee., 01/09/2023 Substance Abuse - Denies Substance Abuse, 05/16/2018 Use: Never., 02/22/2019 Tobacco Nicotine Use: Former smoker, quit more than 30 days ago., 02/22/2022 Family History Cancer: Mother. Diabetes mellitus: Sister. Heart disease: Sister and Brother. Immunizations pneumococcal 23-valent vaccine(Pneumovax: 0 unknown unit (07/28/09) SARS-CoV-2 (COVID-19) mRNA-1273 vaccine: 50 mcg (11/23/21) SARS-CoV-2 mRNA (tozinameran) vaccine: 0.3 unknown unit (07/04/21) SARS-CoV-2 mRNA (tozinameran) vaccine: 0.5 unknown unit (11/06/20) SARS-CoV-2 mRNA (tozinameran) vaccine: 0.5 unknown unit (10/14/20) Code Status Code Status - Ordered -- 12/01/23 17:53:00 EDT, Full Code, Constant Order Digitally Signed by EMMY GARVIN on 12/02/2023 04:09 PM [facility] 12-02-2023 Note . MICRO - Microbiology PROCEDURE: Legionella Urine Ag [*1] SOURCE: Urine BODY SITE: COLLECTED DATE/TIME: 12/02/2023 03:05 EDT RECEIVED DATE/TIME: 12/02/2023 14:44 EDT START DATE/TIME: 12/02/2023 14:44 EDT FREE TEXT SOURCE: FINAL REPORTS Final Report [] Verified Date/Time/Personnel: 12/02/2023 15:04 EDT Presumptive negative for L. pneumophila serogroup 1 antigen in urine, suggesting no recent or current infection. Legionnaire's disease cannot be ruled out since other serogroups and species may also cause disease. Performing Locations *1: This test was performed at: [facility], [address] [place] [address], [id number] , [facility] ([place]) 12-02-2023 Note Exam Date Time Procedure Performing Provider Status 12/02/23 2:38 PM Echocardiogram, Adult - CV Auth (Verified) [facility] 05-07-2024 Evaluation + Plan noteExtracted from: Title:History and Physical Author:EMMY GARVIN APRN-FINANCE PROFESSOR Date:12/02/23 1. CAP (community acquired p neumonia) Acute, new onset. Continue Ceftriaxone 1 gram IV daily. Continue doxycycline 100 mg IV BID - de-escalate when atypicals result. Obtain urine and check for legionella. Check mycoplasma antibody. Continue supplemental oxygen as needed to maintain oxygen saturations above 92% - wean as able. Continue duoneb aerosols as needed and scheduled. Repeat CBC, BMP and magnesium level in the am. 2. Atrial fibrillation New onset. Consult placed to cardiology for recommendation. Obtain echocardiogram to evaluate cardiac function. Cardiology started metoprolol 25 mg PO qday. Will decide on anticoagulation tomorrow after echo read. Patient will likely have to go home with order for event monitor. Continue to monitor on telemetry here. 3. Diabetes mellitus Chronic. Blood sugar checks before meals and at bedtime. Cover with corrective sliding scale insulin. Start ADA diet. Blood glucose goal of 180 or less and avoid hypoglycemia. 4. COPD Chronic, not in exacerbation. Continue duoneb aerosols as needed for shortness of breath or wheezing. 5. Hypertension Chronic. Continue current antihypertensives. SBP goal of 140 or less. 6. Anxiety and depression Chronic. Continue current home medications. 7. CKD (chronic kidney disease) stage 3, GFR 30-59 ml/min Chronic. Baseline GFR 40-45 - down to 27 in ED but improved to 31 this am. Start LR @ 50cc/hr. Repeat BMP in the am. DVT prophylaxis with heparin sc. Code status: Full Code. Labs, diagnostic test and progress notes reviewed as noted in HPI. Plan of care discussed with patient. All questions answered. Patient verbalizes understanding and is agreeable with plan of care. This case was discussed with collaborating physician, Dr. Aicha Cunningham. 75 minutes spent reviewing past diagnostic tests, reviewing lab results, vital sign trends, medical history, reviewing medications and ordering home medications, examining patient, collaborating with physician, and documenting in chart. Future Appointments Appointment Date:12/10/2023 02:00:00 PM Scheduled Provider:JAMIE SCHROEDER Location:[facility] Appointment Type:PC OV TCM 30 Appointment Date:01/15/2024 10:00:00 AM Scheduled Provider:RADHA GROVER Location:[facility] Appointment Type:CV OV Hospital Follow Up Future Scheduled Tests Laboratory* Basic Metabolic Panel 10/16/23 * Complete Blood Count 10/16/23 [facility] 05-06-2024 Note ORIGINAL EXAMINATION: ONE XRAY VIEW OF THE CHEST12/01/2023 4:24 pm COMPARISON: Chest x-ray 05/11/2019 HISTORY: ORDERING SYSTEM PROVIDED HISTORY: Reason for Exam: fever, pain or tachypnea FINDINGS: Airspace opacification is present in the left lower lung. No pulmonary edema. No pleural effusion or visible pneumothorax. Reverse right shoulder arthroplasty and degenerative changes of the visible spine noted. IMPRESSION: Airspace opacities in the left lower lung likely infectious or inflammatory in etiology. Imaging follow-up to resolution is recommended. I have personally reviewed the images of this examination and agree with the resident's findings and interpretation. Interpreted by: Tony Barth MD Preliminary Report By: Mohsen Nowak Electronically signed By Tony Barth MD Dictated Date: 12/01/2023 4:32:43 PM Prelim Date: 12/01/2023 4:38:42 PM Sign Date: 12/01/2023 5:03:21 PM Ordering Provider: [facility] Note Sinus tachycardia Ventricular premature complex Low voltage, extremity and precordial leads SE E DICTATION Electronic Signature: CELI MARTINEZ MD 12/01/2023 15:13:12[facility] 04-04-2024 Discharge summary Author Vernon Gillespie [facility] October 30, 2023 7:07am Note Date/Time October 30, 2023 5:45 am [facility] Medical Records Department [address] [place] [address] Emergency Department Summary 10/30/23 MR#: [id number] Acct: [id number] Name: ANSON CAPPS Rep #:[id number] : [id number] 82 From: Vernon Gillespie DO PCP: JEAN Obrien Status:REG ER Location: ED HPI History of Present Illness Chief Complaint: Upper Extremity Injury Informant: patient and family Narrative Narrative: Patient is an 82-year-old female with past medical history of type 2 diabetes hypertension and hyperlipidemia who underwent a right shoulder surgery yesterday. She was discharged roughly 13 hours ago from PACU. She reports thatafter returning home the nerve block began to wear off and she started taking the Percocet as directed. She states despite doing this the pain continued to increase. She states that she did not injure the area in any way. She reports she contacted her surgeon around 1 in the morning and was informed that she could take a double dose of the pain med. She states she did this without anysymptom improvement and therefore she presents to the hospital for evaluation. [facility] Medical History Abnormal electrocardiogram Alcohol use Ambulates with cane Anxiety Arthritis Bilateral carotid bruits Cardiology follow-up encounter CKD (chronic kidney disease) COPD (chronic obstructive pulmonary disease) COPD (chronic obstructive pulmonary disease) COPD with acute exacerbation Depression Diabetes Diabetes mellitus type II, controlled Dietary restriction Dyspnea Essential (primary) hypertension Former smoker GERD (gastroesophageal reflux disease) GI bleed History of edema History of stress test History of TIA (transient ischemic attack) Hyperlipidemia Iron deficiency Leg cramps Long-term use of high-risk medication Neuropathy Nicotine dependence PAD (peripheral artery disease) Preoperative cardiovascular examination Primary osteoarthritis, right shoulder PVD (peripheral vascular disease) Restless legs Right shoulder pain Stage 3 severe COPD by GOLD classification Vaso vagal episode Wears dentures Wears glasses Home Medications albuterol sulfate 2.5 mg/3 mL (0.083 %) solution for nebulization 2.5 mg inhalation Q4H PRN PRN COPD 03/25/16 [History Last Taken Unknown] clonidine HCl 0.3 mg tablet 0.3 mg PO DAILY 03/25/16 [History Last Taken 10/28/23] duloxetine 60 mg capsule,delayed release 30 mg PO DAILY 03/25/16 [History Last Taken 10/29/23] fluticasone 250 mcg-salmeterol 50 mcg/dose blistr powdr for inhalation 1 puff inhalation BID 03/25/16 [History Last Taken 10/28/23] dulaglutide 0.75 mg/0.5 mL subcutaneous pen injector 1.5 mg subcut SALCIDO #2 mL 04/28/19 [History Last Taken 10/26/23] ascorbic acid (vitamin C) 500 mg capsule 500 mg PO DAILY 11/28/22 [History Last Taken 10/28/23] atorvastatin 40 mg tablet 40 mg PO QHS 11/28/22 [History Last Taken 10/28/23] cholecalciferol (vitamin D3) 10 mcg (400 unit) capsule 10 mcg PO DAILY 11/28/22 [History Last Taken 10/28/23] ferrous gluconate 324 mg (37.5 mg iron) tablet 324 mg PO DAILY 11/28/22 [History Last Taken 10/28/23] albuterol sulfate 90 mcg/actuation aerosol inhaler 2 puff inhalation Q4H PRN PRNCOPD #18 grams 12/13/22 [Rx Last Taken 10/29/23] clopidogrel 75 mg tablet 75 mg PO DAILY 04/30/23 [History Last Taken 09/24/23] glipizide 2.5 mg tablet, extended release 24 hr 2.5 mg PO DAILY 09/19/23 [History Last Taken 10/28/23] lisinopril 5 mg tablet 5 mg PO DAILY 09/19/23 [History Last Taken 10/29/23] pantoprazole 40 mg tablet,delayed release 40 mg PO DAILY 09/19/23 [History Last Taken 10/29/23] oxycodone-acetaminophen 5 mg-325 mg tablet (Endocet) 1 tab PO Q4H PRN pain 5 days #30 tabs 10/29/23 [Rx Last Taken Unknown] lorazepam 0.5 mg tablet (Ativan) 0.5 mg PO TID PRN anxiety/pain 5 days #15 tabs 10/30/23 [Rx Last Taken Unknown] Allergy/AdvReac Type Severity Reaction Status Date / Time ferrous sulfate Allergy Intermediate Other Verified 10/30/23 05:20 iron AdvReac Severe Low blood Verified 10/30/23 05:20 pressure gabapentin AdvReac Intermediate Pedal edema Verified 10/30/23 05:20 pregabalin [From Lyrica] AdvReac Intermediate Pedal edema Verified 10/30/23 05:20 codeine AdvReac Nausea Verified 10/30/23 05:20 Tetracyclines AdvReac Nausea Verified 10/30/23 05:20 Family History Sister CAD (coronary artery disease) Brother CAD (coronary artery disease) Mother Cancer Surgical History (Updated 09/19/23 @ 10:59 by Lesvia Zapata) H/O foot surgery H/O foot surgery H/O tubal ligation H/O: hysterectomy History of appendectomy History of appendectomy History of esophagogastroduodenoscopy (EGD) History of total abdominal hysterectomy Hx of colonoscopy Hx of tubal ligation Right lower extremity angioplasty Social History Smoking Status: Former smoker quit date: 07/28/15 second hand exposure: Yes alcohol intake: never ROS ROS ED Constitutional Constitutional ED: Denies chills or fever(s) ENT ENT ED: Denies sore throat Cardiovascular Cardiovascular: Denies chest pain, palpitations or racing heartbeat Respiratory/Chest Respiratory/Chest: Denies cough or dyspnea Gastrointestinal Gastrointestinal: Denies abdominal pain, diarrhea, nausea or vomiting Genitourinary Genitourinary ED: Denies dysuria Musculoskeletal Musculoskeletal: Reports other Details: Positive right shoulder pain Neurologic Neurologic: Denies headache(s) Hematologic/Lymphatic Hematologic/Lymphatic: Reports easy bleeding and easy bruising EXAM Physical Exam Const Vital Signs: 10/30/23 05:20 Temperature 98.3 F Temperature Source Temporal Pulse Rate 98 Respiratory Rate 17 Blood Pressure 138/61 H Blood Pressure Mean 86 Pulse Ox 95 Oxygen Delivery Method Room Air Positive well nourished and well developed General Appearance ED: well developed HEENT HEENT Narrative: Normocephalic atraumatic Eyes PERRL and EOMs intact bilaterally Eyes Narrative: No subconjunctival pallor noted Neck supple Resp normal respiratory effort and clear to auscultation bilaterally Cardio regular rate and regular rhythm Extremity Extremity Narrative: Patient has postsurgical incision to the right shoulder that is clean dry and intact. There is dependent soft tissue swelling and ecchymosis to the distal humerus from the midportion of the humerus tracking down to the elbow. However the area is still soft and compressible going against compartment syndrome. Theright upper extremity is neurovascular intact with a normal radial pulse and capillary refill is less than 2-second. AIN/PIN are still intact and normal. Remainder of the exam is normal Neuro oriented x3 and CN's II-XII intact bilaterally Sensorium / Orientation: alert Psych mental status grossly normal Skin Skin Narrative: Soft tissue swelling with postsurgical incision and ecchymosis to the right upper arm as documented above MDM MDM MDM Narrative Medical decision making narrative: Patient arrived to the ER with stable vitals and had increased postoperative pain. By exam there is no sign of infection or compartment syndrome. She is neurovascular intact and there seems to be no persistent bleeding. As the patient states she took 2 Percocet as directed by her doctor but did not have symptom improvement I did elect to place an IV and she received morphine Zofran Toradol and Ativan. Patient was able to fall asleep indicating she had great improvement of her pain. At this time there is no obvious postoperative infection or compartment syndrome I do not have any suspicion for postoperative DVT as she is only approximate 14 hours out from surgery and as her pain is now controlled she can be discharged and follow-up with orthopedic surgeon tomorrow as previously directed. History & Record Review Discussion w/independent historian: Patient and Family Discharge Plan Triage Chief Complaint: Upper Extremity Injury ED Provider: Vernon Gillespie Dx/Rx/DC Orders Clinical Impression: Post-operative pain, Essential (primary) hypertension, Hyperlipidemia, Diabetesmellitus type II, controlled Instructions: Pain Management After Surgery Prescriptions: New lorazepam [Ativan] 0.5 mg tablet 0.5 mg PO TID PRN (Reason: anxiety/pain) 5 Days Qty: 15 0RF No Action dulaglutide 0.75 mg/0.5 mL pen injector 1.5 mg SC SALCIDO Qty: 2 albuterol sulfate 90 mcg/actuation HFA aerosol inhaler 2 puff INHALATION Q4H PRN PRN (Reason: COPD) Qty: 18 6RF atorvastatin 40 mg tablet 40 mg PO QHS cholecalciferol (vitamin D3) 10 mcg (400 unit) capsule 10 mcg PO DAILY ferrous gluconate 324 mg (37.5 mg iron) tablet 324 mg PO DAILY ascorbic acid (vitamin C) 500 mg capsule 500 mg PO DAILY fluticasone propion-salmeterol 1 PUFF inhaler 1 puff INHALATION BID albuterol sulfate 2.5 MG/3 ML solution for nebulization 2.5 mg INHALATION Q4H PRN PRN (Reason: COPD) clonidine HCl 0.3 MG tablet 0.3 mg PO DAILY duloxetine 60 MG capsule 30 mg PO DAILY clopidogrel 75 mg tablet 75 mg PO DAILY glipizide 2.5 mg tablet extended release 24hr 2.5 mg PO DAILY lisinopril 5 mg tablet 5 mg PO DAILY pantoprazole 40 mg tablet,delayed release (DR/EC) 40 mg PO DAILY oxycodone-acetaminophen [Endocet] 5-325 mg tablet 1 tab PO Q4H MDD 6 PRN (Reason: pain) 5 Days Qty: 30 0RF Primary Care Provider: Jamie Schroeder NP Referrals: Diana Love MD [Med Staff - Active Staff] - Jamie Schroeder NP, SHALE MINER-C [Primary Care Provider] - Activity Restrictions/Additional Instructions: Please keep your appointment with orthopedic surgeon tomorrow as previously directed. As orthopedic surgeon informed you you can take 2 Percocet at a time every 4-6 hours as needed for pain control. You can add low-dose Ativan up to 3times a day if needed to help with sleep or pain. If you feel your pain is not controlled to a sufficient value please follow-up with your doctor or return to ER for repeat evaluation Disposition Disposition: Home, Self Care What to do if you have Problems For any increased pain, shortness of breath, bleeding, nausea or vomiting, chestpain, or any unexpected problems, contact your Primary Care Provider. Call [facility] ([phone]) or report to the closest Emergency Room. Call 911 if necessary. 10/30/23 0707 <Electronically signed by Vernon Gillespie DO> Cosigner Signature (if applicable): CC: SHALE MINERLynn Schroeder ~ Signed [facility] Work Phone: 1(591) 325-612304-04-2024 Hospital Discharge instructions Additional Instructions Please keep your appointment with orthopedic surgeon tomorrow as previously directed. As orthopedic surgeon informed you you can take 2 Percocet at a time every 4-6 hours as needed for pain control. You can add low-dose Ativan up to 3 times a day if needed to help with sleep or pain. If you feel your pain is not controlled to a sufficient value please follow-up with your doctor or 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 Discharge Plan Admission Attending Provider: Diana Love Primary Care Provider: Jamie Schroeder NP Discharge Orders/Prescriptions Prescriptions: New oxycodone-acetaminophen [Endocet] 5-325 mg tablet 1 tab PO Q4H MDD 6 PRN (Reason: pain) 5 Days Qty: 30 0RF No Action dulaglutide 0.75 mg/0.5 mL pen injector 1.5 mg SC SALCIDO Qty: 2 albuterol sulfate 90 mcg/actuation HFA aerosol inhaler 2 puff INHALATION Q4H PRN PRN (Reason: COPD) Qty: 18 6RF atorvastatin 40 mg tablet 40 mg PO QHS cholecalciferol (vitamin D3) 10 mcg (400 unit) capsule 10 mcg PO DAILY ferrous gluconate 324 mg (37.5 mg iron) tablet 324 mg PO DAILY ascorbic acid (vitamin C) 500 mg capsule 500 mg PO DAILY fluticasone propion-salmeterol 1 PUFF inhaler 1 puff INHALATION BID albuterol sulfate 2.5 MG/3 ML solution for nebulization 2.5 mg INHALATION Q4H PRN PRN (Reason: COPD) clonidine HCl 0.3 MG tablet 0.3 mg PO DAILY duloxetine 60 MG capsule 30 mg PO DAILY clopidogrel 75 mg tablet 75 mg PO DAILY glipizide 2.5 mg tablet extended release 24hr 2.5 mg PO DAILY lisinopril 5 mg tablet 5 mg PO DAILY pantoprazole 40 mg tablet,delayed release (DR/EC) 40 mg PO DAILY Referrals / Follow Up: Diana Love MD [Med Staff - Active Staff] - Jamie Schroeder NP, NP-C [Primary Care Provider] - Disposition Disposition (needs filled in before D/C Order can be placed): Home, Self Care 10/29/23 0940<Electronically signed by Diana Love MD>Diana Lvoe MD CC: JEAN Schroeder ~ Signed [facility] Work Phone: [phone]) 900-175504-03-2024 Procedure [facility] 10-29-2023 History and physical note Author Diana Love [facility] October 29, 2023 7:14am Note Date/Time October 29, 2023 7:13 am [facility] Medical Records Department [address] [place] [id number] History & Physical Exam 10/29/23 0711 MR#: [id number] Acct: [id number] Name: ANSON CAPPS Rep #:[id number] : 1940 82 From: Diana Love MD PCP: JEAN Obrien Status:[facility] Location: [place] [address] HPI - General HPI Narrative ANSON CAPPS, is a 82 F who presents for right reverse total shoulder arthroplasty. No changes to h and p. shoulder marked. rab, post op instructions and narcotic counselling discussed. no further questions, ok to proceed. MR#: [id number] Acct: [id number] Name: ANSON CAPPS Rep #: [id number] : 1940 Provider: Dr. Diana Love MD Age/Sex: 82/F Location[place] [facility] [place] Status: Signed Intake Vital Signs 06/25/2309:51 Height 5 ft Intake Visit Reasons: right shoulder Is patient in pain?: Yes Allergies acetaminophen [From Percocet] Allergy (Intermediate, Verified 09/22/23 10:15) Itchingferrous sulfate Allergy (Intermediate, Verified 09/22/23 10:15) Otheroxycodone [From Percocet] Allergy (Intermediate, Verified 09/22/23 10:15) Itchingiron Adverse Reaction (Severe, Verified 09/22/23 10:15) Low blood pressuregabapentin Adverse Reaction (Intermediate, Verified 09/22/23 10:15) Pedal edemapregabalin [From Lyrica] Adverse Reaction (Intermediate, Verified 09/22/23 10:15) Pedal edemacodeine Adverse Reaction (Verified 09/22/23 10:15) NauseaTetracyclines Adverse Reaction (Verified 09/22/23 10:15) Nausea Medications albuterol sulfate 2.5 mg/3 mL (0.083 %) solution for nebulization 2.5 mg inhalation Q4H PRN PRN COPD 03/25/16 [History Confirmed 09/22/23] clonidine HCl 0.3 mg tablet 0.3 mg PO DAILY 03/25/16 [History Confirmed 09/22/23] duloxetine 60 mg capsule,delayed release 30 mg PO DAILY 03/25/16 [History Confirmed 09/22/23] fluticasone 250 mcg-salmeterol 50 mcg/dose blistr powdr for inhalation 1 puff inhalation BID 03/25/16 [History Confirmed 09/22/23] dulaglutide 0.75 mg/0.5 mL subcutaneous pen injector 1.5 mg subcut SALCIDO #2 mL 04/28/19 [History Confirmed 09/22/23] ascorbic acid (vitamin C) 500 mg capsule 500 mg PO DAILY 11/28/22 [History Confirmed 09/22/23] atorvastatin 40 mg tablet 40 mg PO QHS 11/28/22 [History Confirmed 09/22/23] cholecalciferol (vitamin D3) 10 mcg (400 unit) capsule 10 mcg PO DAILY 11/28/22 [History Confirmed 09/22/23] ferrous gluconate 324 mg (37.5 mg iron) tablet 324 mg PO DAILY 11/28/22 [History Confirmed 09/22/23] albuterol sulfate 90 mcg/actuation aerosol inhaler 2 puff inhalation Q4H PRN PRNCOPD #18 grams 12/13/22 [Rx Confirmed 09/22/23] clopidogrel 75 mg tablet 75 mg PO DAILY 04/30/23 [History Confirmed 09/22/23] glipizide 2.5 mg tablet, extended release 24 hr 2.5 mg PO DAILY 09/19/23 [History Confirmed 09/22/23] lisinopril 5 mg tablet 5 mg PO DAILY 09/19/23 [History Confirmed 09/22/23] metformin 500 mg tablet 500 mg PO QHS 09/19/23 [History Confirmed 09/22/23] pantoprazole 40 mg tablet,delayed release 40 mg PO DAILY 09/19/23 [History Confirmed 09/22/23] [facility] Medical History (Updated 09/19/23 @ 10:59 by Lesvia Zapata) Abnormal electrocardiogram Alcohol use Ambulates with cane Anxiety Arthritis Bilateral carotid bruits Cardiology follow-up encounter CKD (chronic kidney disease) COPD (chronic obstructive pulmonary disease) COPD (chronic obstructive pulmonary disease) COPD with acute exacerbation Depression Diabetes Diabetes mellitus type II, controlled Dietary restriction Dyspnea Essential (primary) hypertension Former smoker GERD (gastroesophageal reflux disease) GI bleed History of edema History of stress test History of TIA (transient ischemic attack) Hyperlipidemia Iron deficiency Leg cramps Long-term use of high-risk medication Neuropathy Nicotine dependence PAD (peripheral artery disease) Preoperative cardiovascular examination Primary osteoarthritis, right shoulder PVD (peripheral vascular disease) Restless legs Right shoulder pain Stage 3 severe COPD by GOLD classification Vaso vagal episode Wears dentures Wears glasses Surgical History (Updated 09/19/23 @ 10:59 by Lesvia Zapata) H/O foot surgery H/O foot surgery H/O tubal ligation H/O: hysterectomy History of appendectomy History of appendectomy History of esophagogastroduodenoscopy (EGD) History of total abdominal hysterectomy Hx of colonoscopy Hx of tubal ligation Right lower extremity angioplasty Family History Sister CAD (coronary artery disease)Brother CAD (coronary artery disease)Mother Cancer Social History Smoking Status: Former smoker quit date: 07/28/15 second hand exposure: Yes alcohol intake: never HPI right shoulder Details: This documentation accurately reflects the service provided and the decisions made by me, Dr. Diana Love MD 09/22/23 1012. Part of today?s visit was documented by [ ], acting as scribe. ANSON CAPPS is a 82 year old F here today for follow-up of her right shoulder osteoarthritis booked for reverse total shoulder arthroplasty but the insurance company stated they would not approve the surgery without 6 weeks of failed physical therapy. Patient has now done this without improvement. Ortho Exam General General: Yes no acute distress Neurologic: Yes alert and Yes oriented x3 Psychologic: Yes reasonable and appropriate Right Shoulder Skin/Wound: Yes CDI, No ecchymosis, No erythema and No swelling Testing: Negative Hawkin's, Neer's, TTP Biceps or Drop Arm SHOULDER: active fe 30, er 50. weak in fe 4/ Coding Level of Care Code Off vis,est,level 3 Diagnoses Primary osteoarthritis, right shoulder M19.011 Assessment and Plan Assessment and Plan (1) Primary osteoarthritis, right shoulder: Status: Acute Plan: 82 year old F here today for follow-up of her right shoulder advanced osteoarthritis booked for reverse total shoulder arthroplasty but the insurance company stated they would not approve the surgery without 6 weeks of failed physical therapy. Patient has now done this without improvement. Will proceed with RTSA September 30. [facility] Medical History (Updated 09/19/23 @ 10:59 by Lesvia Zapata) Abnormal electrocardiogram Alcohol use Ambulates with cane Anxiety Arthritis Bilateral carotid bruits Cardiology follow-up encounter CKD (chronic kidney disease) COPD (chronic obstructive pulmonary disease) COPD (chronic obstructive pulmonary disease) COPD with acute exacerbation Depression Diabetes Diabetes mellitus type II, controlled Dietary restriction Dyspnea Essential (primary) hypertension Former smoker GERD (gastroesophageal reflux disease) GI bleed History of edema History of stress test History of TIA (transient ischemic attack) Hyperlipidemia Iron deficiency Leg cramps Long-term use of high-risk medication Neuropathy Nicotine dependence PAD (peripheral artery disease) Preoperative cardiovascular examination Primary osteoarthritis, right shoulder PVD (peripheral vascular disease) Restless legs Right shoulder pain Stage 3 severe COPD by GOLD classification Vaso vagal episode Wears dentures Wears glasses Home Medications albuterol sulfate 2.5 mg/3 mL (0.083 %) solution for nebulization 2.5 mg inhalation Q4H PRN PRN COPD 03/25/16 [History Last Taken Unknown] clonidine HCl 0.3 mg tablet 0.3 mg PO DAILY 03/25/16 [History Last Taken 10/28/23] duloxetine 60 mg capsule,delayed release 30 mg PO DAILY 03/25/16 [History Last Taken 10/29/23] fluticasone 250 mcg-salmeterol 50 mcg/dose blistr powdr for inhalation 1 puff inhalation BID 03/25/16 [History Last Taken 10/28/23] dulaglutide 0.75 mg/0.5 mL subcutaneous pen injector 1.5 mg subcut SALCIDO #2 mL 04/28/19 [History Last Taken 10/26/23] ascorbic acid (vitamin C) 500 mg capsule 500 mg PO DAILY 11/28/22 [History Last Taken 10/28/23] atorvastatin 40 mg tablet 40 mg PO QHS 11/28/22 [History Last Taken 10/28/23] cholecalciferol (vitamin D3) 10 mcg (400 unit) capsule 10 mcg PO DAILY 11/28/22 [History Last Taken 10/28/23] ferrous gluconate 324 mg (37.5 mg iron) tablet 324 mg PO DAILY 11/28/22 [History Last Taken 10/28/23] albuterol sulfate 90 mcg/actuation aerosol inhaler 2 puff inhalation Q4H PRN PRNCOPD #18 grams 12/13/22 [Rx Last Taken 10/29/23] clopidogrel 75 mg tablet 75 mg PO DAILY 04/30/23 [History Last Taken 09/24/23] glipizide 2.5 mg tablet, extended release 24 hr 2.5 mg PO DAILY 09/19/23 [History Last Taken 10/28/23] lisinopril 5 mg tablet 5 mg PO DAILY 09/19/23 [History Last Taken 10/29/23] pantoprazole 40 mg tablet,delayed release 40 mg PO DAILY 09/19/23 [History Last Taken 10/29/23] Allergy/AdvReac Type Severity Reaction Status Date / Time ferrous sulfate Allergy Intermediate Other Verified 10/29/23 06:38 iron AdvReac Severe Low blood Verified 10/29/23 06:38 pressure gabapentin AdvReac Intermediate Pedal edema Verified 10/29/23 06:38 pregabalin [From Lyrica] AdvReac Intermediate Pedal edema Verified 10/29/23 06:38 codeine AdvReac Nausea Verified 10/29/23 06:38 Tetracyclines AdvReac Nausea Verified 10/29/23 06:38 Family History Sister CAD (coronary artery disease) Brother CAD (coronary artery disease) Mother Cancer Surgical History (Updated 09/19/23 @ 10:59 by Lesvia Zapata) H/O foot surgery H/O foot surgery H/O tubal ligation H/O: hysterectomy History of appendectomy History of appendectomy History of esophagogastroduodenoscopy (EGD) History of total abdominal hysterectomy Hx of colonoscopy Hx of tubal ligation Right lower extremity angioplasty Social History Smoking Status: Former smoker quit date: 07/28/15 second hand exposure: Yes alcohol intake: never Vital Signs Vital Signs Vital Signs: 10/29/23 06:41 10/29/23 06:41 Temperature 98.4 F Temperature Source Temporal Pulse Rate 88 Respiratory Rate 12 Respiratory Pattern Normal Blood Pressure 145/61 H Blood Pressure Mean 89 Blood Pressure Source Monitor Blood Pressure Position Semi-Fowlers Blood Pressure Location Right Arm Pulse Ox 99 Oxygen Delivery Method Room Air Weight Weight: 127 lb 13.89 oz Body Mass Index (BMI) 25.0 Results Lab / Micro Data 09/22/23 09:31 09/22/23 09:31 10/29/23 0714 <Electronically signed by Diana Love MD> Cosigner Signature (if applicable): CC: JEAN Schroeder; Dr. Diana Love MD~ Signed [facility] Work Phone: 1(294) 307-300504-03-2024 [facility]11-03-2023 Note ORIGINAL EXAMINATION: BONE DENSITOMETRY 05/30/2023 3:38 pm TECHNIQUE: A bone density dual x-ray absorptiometry (DEXA) scan was performed of the lumbar spine and left hip. COMPARISON: 05/05/2020. HISTORY: ORDERING SYSTEM PROVIDED HISTORY: Reason for Exam: Osteoporosis Screening FINDINGS: T Score Left Femoral Neck: -1.3 Left Femoral Neck: 0.702 (g/cm2) T Score Left Hip: -0.5 Left Hip: 0.887 (g/cm2) T Score Lumbar Spine: 1.2 Lumbar Spine: 1.176 (g/cmd2) BMD Change from previous Hip: 1.5% BMD Change from previous Lumbar Spine: 0.7% FRAX: 10 year fracture risk assessment Major osteoporotic fracture: 12% Hip fracture: 2.8% IMPRESSION: Osteopenia by WHO criteria. *By the World Health Organization criteria: (Comparing with young normal sex matched population) - Normal: T-score at or above -1 SD (standard deviation) - Osteopenia: T-score between -1 and -2.5 SD - Osteoporosis: T-score at or below -2.5 SD Interpreted by: Kd Ortiz DO Preliminary Report By: Kd Ortiz DO Electronically signed By Kd Ortiz DO Dictated Date: 05/30/2023 4:14:12 PM Prelim Date: 05/30/2023 4:15:22 PM Sign Date: 05/30/2023 4:15:22 PM Ordering Provider: [facility]10-22-2023 Emergency department Note* Ana Stoner RN - 05/18/2023 3:57 PM EDT Bed: 18 Expected date: 05/18/23 Expected time: Means of arrival: Comments: triage Ana Stoner RN [facility]18/23 [id number]* Filipe Jaimes DO - 05/18/2023 3:57 PM EDT EMERGENCY DEPARTMENT ENCOUNTER Pt Name: Anson Capps Birthdate 1940 Date of evaluation: 05/18/2023 ED Provider: Filipe Jaimes DO CHIEF COMPLAINT Chief Complaint Patient presents with Weakness, Gen HISTORY OF PRESENT ILLNESS (Location/Symptom, Timing/Onset, Context/Setting, Quality, Duration, Modifying Factors, Severity) Note limiting factors. I wore appropriate PPE for the entirety of this encounter. HPI Anson Capps is a 82 y.o. female with PMH of asthma, CAD, DM2, HTN, HLD, COPD who presents to theemergency department with chief complaint of fatigue and lightheadedness. Patient reports that she was discharged on Friday reports has been doing well until today. Reports that she has had generalized weakness and overall decreased energy. Reports that she felt lightheaded as she was walking around that did improve when she sat back down. denies any episodes of syncope. Reports decreased appetite and has not had anything to eat or drink today.. States that she took a Dulcolax for constipation today. Last bowel movement was yesterday. Reports intermittent suprapubic pain that is not current ly occurring. Denies any associated nausea/vomiting, chest pain, dyspnea, fever/chills. Nursing Notes were reviewed. Limitations to history: None Outside historians: None REVIEW OF SYSTEMS 14 systems reviewed and otherwise acutely negative except as in the [facility] PAST MEDICAL HISTORY Past Medical History: Diagnosis Date Asthma CAD (coronary artery disease) Depression Diabetes (HCC) GERD (gastroesophageal reflux disease) Hyperlipidemia Hypertension SURGICAL HISTORY No past surgical history on file. CURRENT MEDICATIONS Previous Medications ALBUTEROL 108 (90 BASE) MCG/ACT INHALER Inhale 1 puff every 4 hours as needed. AMOXICILLIN (AMOXIL) 500 MG CAPSULE Take 2 capsules (1,000 mg) by mouth in the morning and 2 capsules (1,000 mg) before bedtime. Do all this for 7 days. ATORVASTATIN (LIPITOR) 40 MG TABLET Take by mouth. CHOLECALCIFEROL (VITAMIN D-3) 10 MCG (400 UNIT) CAPSULE Take by mouth. CLONIDINE (CATAPRES) 0.2 MG TABLET Take 0.2 mg by mouth in the morning. CLOPIDOGREL (PLAVIX) 75 MG TABLET Take 75 mg by mouth daily. DULAGLUTIDE (TRULICITY) 3 MG/0.5ML SOLUTION PEN-INJECTOR Inject under the skin 1 (one) time per week. DULOXETINE (CYMBALTA) [address] CAPSULE Take 30 mg by mouth daily. FERROUS GLUCONATE ( FERROUS GLUCONATE) 324 (37.5 FE) MG TABLET Take 324 mg by mouth daily (with breakfast). IPRATROPIUM-ALBUTEROL (DUO-NEB) 0.5-2.5 MG/3 ML NEBULIZER SOLUTION Inhale 3 mL in the morning and 3mL at noon and 3 mL in the evening and 3 mL before bedtime. LISINOPRIL 5 MG TABLET Take 1 tablet (5 mg) by mouth daily. ALLERGIES Iron, Oxycodone, Pregabalin, Tetracyclines & related, Amlodipine, and Codeine FAMILY HISTORY No family history on file. SOCIAL HISTORY Social History Socioeconomic History Marital status: Tobacco Use Smoking status: Never Smokeless tobacco: Never Substance and Sexual Activity Alcohol use: Not Currently Drug use: Never Social Determinants of Health Transportation Needs: No Transportation Needs (05/12/2023) PRAPARE - Transportation Lack of Transportation (Medical): No Lack of Transportation (Non-Medical): No Intimate Partner Violence: Not At Risk (05/12/2023) Humiliation, Afraid, Rape, and Kick questionnaire Fear of Current or Ex-Partner: No Emotionally Abused: No Physically Abused: No Sexually Abused: No Housing Stability: Low Risk (05/12/2023) Housing Stability Vital Sign Unable to Pay for Housing in the Last Year: No Number of Places Lived in the Last Year: 1 Unstable Housing in the Last Year: No SCREENINGS Edil Coma Scale Best Eye Response: Spontaneous Best Verbal Response: Oriented Best Motor Response: Follows commands Edil Coma Scale Score: 15 PHYSICAL EXAM ED Triage Vitals [05/18/23 1559] Temp Heart Rate Resp BP 36.4 C (97.5 F) (!) 123 18 107/70 SpO2 Temp Source Heart Rate Source Patient Position 98 % Temporal Monitor -- BP Location FiO2 (%) -- -- Gen: NAD Heart: RRR, no murmur Lungs: CTA Abd: soft, non distended and no tenderness to palpation Extremities: 2+ radial and DP. Cap refill normal. No edema. Full range of motion of all 4 extremities Neuro: A&Ox3. Strength 5/5 in bilateral UE and LE bilaterally. Sensation to light touch intact in bilateral UE and LE. Skin: no rash or lesions to exposed skin Psych: normal affect DIAGNOSTIC RESULTS RADIOLOGY (Per Emergency Physician): Interpretation per the Radiologist below, if available at the time of this note: XR chest 1 view Final Result No acute cardiopulmonary disease. Report Dictated on Electronically Signed By: Aba Lu MD Electronically Signed Date/Time: 05/18/2023 4:59 PM EDT LABS: Labs Reviewed CBC WITH AUTO DIFFERENTIAL - Abnormal Result Value Auto WBC 13.8 (*) RBC 5.12 Hemoglobin 12.9 Hematocrit 41.3 MCV 80.7 MCH 25.1 (*) MCHC 31.2 (*) RDW 18.9 (*) Platelets 444 (*) MPV 7.6 nRBC 0.0 Neutrophils Relative 78.9 Lymphocytes Relative 12.2 (*) Monocytes Relative 7.3 Eosinophils Relative 1.0 Basophils Relative 0.6 Neutrophils Absolute 10.9 (*) Lymphocytes Absolute 1.7 Monocytes Absolute 1.0 (*) Eosinophils Absolute 0.1 Basophils Absolute 0.1 COMPREHENSIVE METABOLIC PANEL - Abnormal SODIUM 135 POTASSIUM 5.0 CHLORIDE 98 CARBON DIOXIDE 26 ANION GAP 11 UREA NITROGEN 59 (*) CREATININE 1.38 (*) GLUCOSE 287 (*) CALCIUM 10.2 AST (SGOT) 52 (*) ALT 27 ALKALINE PHOSPHATASE 67 ALBUMIN 4.6 BILIRUBIN, TOTAL 0.4 TOTAL PROTEIN 8.3 (*) eGFR 38.8 (*) COMPLETE URINALYSIS - Abnormal Color, Urine Light Yellow Clarity, Urine Clear pH, Urine 5.0 Leukocytes, Urine 250 (*) Nitrite, Urine Negative Protein, Urine Negative Glucose, Urine Normal Bilirubin, Urine Negative Ketones, Urine Negative Urobilinogen, Urine Normal Blood, Urine Negative RBC, Urine 3-5 (*) WBC, Urine 6-10 (*) Squamous Epithelial, Urine 11-25 (*) Non-Squamous Epithalial Cells, Urine 0-2 (*) Bacteria, Urine Few (*) Mucus, Urine Few Hyaline Casts, Urine 6-10 (*) SPECIFIC GRAVITY OF URINE (NUMERIC) 1.011 SARS-COV-2, FLU A/B, AND RSV COMBO - Normal SARS-CoV-2 Not Detected Respiratory Syncytial Virus Not Detected Influenza A Not Detected Influenza B Not Detected Narrative: Methodology: real-time, RT-PCR The SARS-CoV-2, Flu A/B, and RSV Combo assay is intended for in vitro diagnostic use under the FDA Emergency Use Authorization (EUA). This test has not been FDA cleared or approved. In compliance with this authorization, please visit www.fda.gov/media/507390/download or www.fda.gov/media/559343/download to access the applicable information sheets. LACTIC ACID WITH REFLEX - Normal LACTIC ACID 1.6 TROPONIN, WITH SERIAL REFLEX - Normal TROPONIN I <0.012 Narrative: Patients with high levels of Biotin oral intake (ie >5 mg/day) may have falsely decreased Troponin levels. TROPONIN I - Normal TROPONIN I <0.012 Narrative: Patients with high levels of Biotin oral intake (ie >5 mg/day) may have falsely decreased Troponin levels. COMPLETE URINALYSIS - Normal Color, Urine Light Yellow Clarity, Urine Clear pH, Urine 5.0 Leukocytes, Urine Negative Nitrite, Urine Negative Protein, Urine Negative Glucose, Urine Normal Bilirubin, Urine Negative Ketones, Urine Negative Urobilinogen, Urine Normal Blood, Urine Negative SPECIFIC GRAVITY OF URINE (NUMERIC) 1.009 BLOOD CULTURE BLOOD CULTURE COMPLETE URINALYSIS WITH REFLEX TO CULTURE Narrative: The following orders were created for panel order Urinalysis Complete with reflex to Culture. Procedure Abnormality Status --------- ------ Complete Urinalysis[[id number]] Abnormal Final result Please view results for these tests on the individual orders. TROPONIN I All other labs were within normal range or not returned as of this dictation. EMERGENCY DEPARTMENT COURSE and DIFFERENTIAL DIAGNOSIS/MDM: Vitals: Vitals: 05/18/23 1559 05/18/23 1646 05/18/23 1846 BP: 107/70 100/59 BP Location: Left arm Patient Position: Lying Pulse: (!) 123 88 Resp: 18 17 Temp: 36.4 C (97.5 F) TempSrc: Temporal SpO2: 98% 97% Weight: 51.7 kg (114 lb) Height: 1.524 m (5') Diagnoses as of 05/18/232046 Generalized weakness Lightheadedness Upon arrival to the ED, patient initially tachycardic, otherwise afebrile, hemodynamically stable and saturating well on room air. The differential diagnosis associated with this patient's presentation includes infection process such as acute cystitis with now ascending PEL nephritis versus pneumonia versus COVID/flu/RSV versus ACS versus electrolyte abnormality versus decreased p.o. intake. Our workup consisted of ordering/reviewing EKG, lab work, and chest x-ray.. EKG sinus tachycardia with no ischemic change compared to prior. Troponin negative, low suspicion for ACS at this time. Patient found to have mild leukocytosisof 13.8, however lactate negative, no evidence distress septic shock. Initial urinalysis obtained was contaminated this straight cath urinalysis obtained and negative for acute cystitis distress and ascending infection. No significant Chantal abnormality. Renal function similar to prior. Given normal saline bolus and tachycardia resolved. Chest x-ray with no evidence of pneumonia. Suspect likely decreased p.o. intake and lightheadedness consistent with vasovagal. Shared decision making performed patient feels comfortable following up outpatient as she feels at her baseline following the fluids. Patient medically stable for discharge. Return precautions given. Patient instructed follow-up with primary care physician. Patient agreeable to and understands the plan. External records reviewed: Inpatient notes Per chart review, patient was recently admitted on 05/11/2023 for septic shock believed to be due to pyelonephritis with cultures positive for Klebsiella. Diagnostics interpreted by me: EKG; see my interpretation elsewhere in the chart Lab work as described above Discussions with other clinicians: none Chronic conditions impacting care: Past Medical History: Diagnosis Date Asthma CAD (coronary artery disease) Depression Diabetes (HCC) GERD (gastroesophageal reflux disease) Hyperlipidemia Hypertension Social determinants of health affecting care: none ED Medications managed: Medications sodium chloride 0.9 % bolus 1,000 mL (0 mL IntraVENous Stopped 05/18/23 184) FINAL IMPRESSION 1. Generalized weakness 2. Lightheadedness DISPOSITION Discharge 05/18/2023 08:44:24 PM PATIENT REFERRED TO: Jamie Schroeder [address] [place] [phone] In 1 day DISCHARGE MEDICATIONS: New Prescriptions No medications on file (Comment: Please note this report has been produced using speech recognition software and may contain errors related to that system including errors in grammar, punctuation, and spelling, as well as words and phrases that may be inappropriate. If there are any questions or concerns please feel freeto contact the dictating provider for clarification.) Filipe Jaimes DO (electronically signed) Emergency Medicine Provider Filipe Jaimes DO 05/18/232046 * Yomaira Streeter RN - 05/18/2023 3:57 PM EDT Pt presents for near syncopal episode. States she was recently dc for UTI. States she was making breakfast and felt weak, became diaphoretic, and felt like she was going to pass out. Did not lose consciousness. Pt A&O x4, family bedside * Ana Stoner RN - 05/18/2023 3:57 PM EDT Bed: 18 Expected date: 05/18/23 Expected time: Means of arrival: Comments: triage Ana Stoner RN 05/18/23 1601 documented in this [facility]10-22-2023 Emergency department Triage note* Yomaira Streeter RN - 05/18/2023 3:57 PM EDT Pt presents for near syncopal episode. States she was recently dc for UTI. States she was making breakfast and felt weak, became diaphoretic, and felt like she was going to pass out. Did not lose consciousness. Pt A&O x4, family bedside [id number] Physician Emergency department Note* Filipe Jaimes DO - 05/18/2023 3:57 PM EDT EMERGENCY DEPARTMENT ENCOUNTER Pt Name: Anson Capps Birthdate 1940 Date of evaluation: 05/18/2023 ED Provider: Filipe Jaimes DO CHIEF COMPLAINT Chief Complaint Patient presents with Weakness, Gen HISTORY OF PRESENT ILLNESS (Location/Symptom, Timing/Onset, Context/Setting, Quality, Duration, Modifying Factors, Severity) Note limiting factors. I wore appropriate PPE for the entirety of this encounter. HPI Anson Capps is a 82 y.o. female with PMH of asthma, CAD, DM2, HTN, HLD, COPD who presents to theemergency department with chief complaint of fatigue and lightheadedness. Patient reports that she was discharged on Friday reports has been doing well until today. Reports that she has had generalized weakness and overall decreased energy. Reports that she felt lightheaded as she was walking around that did improve when she sat back down. denies any episodes of syncope. Reports decreased appetite and has not had anything to eat or drink today.. States that she took a Dulcolax for constipation today. Last bowel movement was yesterday. Reports intermittent suprapubic pain that is not current ly occurring. Denies any associated nausea/vomiting, chest pain, dyspnea, fever/chills. Nursing Notes were reviewed. Limitations to history: None Outside historians: None REVIEW OF SYSTEMS 14 systems reviewed and otherwise acutely negative except as in the [facility] PAST MEDICAL HISTORY Past Medical History: Diagnosis Date Asthma CAD (coronary artery disease) Depression Diabetes (HCC) GERD (gastroesophageal reflux disease) Hyperlipidemia Hypertension SURGICAL HISTORY No past surgical history on file. CURRENT MEDICATIONS Previous Medications ALBUTEROL 108 (90 BASE) MCG/ACT INHALER Inhale 1 puff every 4 hours as needed. AMOXICILLIN (AMOXIL) 500 MG CAPSULE Take 2 capsules (1,000 mg) by mouth in the morning and 2 capsules (1,000 mg) before bedtime. Do all this for 7 days. ATORVASTATIN (LIPITOR) 40 MG TABLET Take by mouth. CHOLECALCIFEROL (VITAMIN D-3) 10 MCG (400 UNIT) CAPSULE Take by mouth. CLONIDINE (CATAPRES) 0.2 MG TABLET Take 0.2 mg by mouth in the morning. CLOPIDOGREL (PLAVIX) 75 MG TABLET Take 75 mg by mouth daily. DULAGLUTIDE (TRULICITY) 3 MG/0.5ML SOLUTION PEN-INJECTOR Inject under the skin 1 (one) time per week. DULOXETINE (CYMBALTA) [address] CAPSULE Take 30 mg by mouth daily. FERROUS GLUCONATE (KP FERROUS GLUCONATE) 324 (37.5 FE) MG TABLET Take 324 mg by mouth daily (with breakfast). IPRATROPIUM-ALBUTEROL (DUO-NEB) 0.5-2.5 MG/3 ML NEBULIZER SOLUTION Inhale 3 mL in the morning and 3mL at noon and 3 mL in the evening and 3 mL before bedtime. LISINOPRIL 5 MG TABLET Take 1 tablet (5 mg) by mouth daily. ALLERGIES Iron, Oxycodone, Pregabalin, Tetracyclines & related, Amlodipine, and Codeine FAMILY HISTORY No family history on file. SOCIAL HISTORY Social History Socioeconomic History Marital status: Tobacco Use Smoking status: Never Smokeless tobacco: Never Substance and Sexual Activity Alcohol use: Not Currently Drug use: Never Social Determinants of Health Transportation Needs: No Transportation Needs (05/12/2023) PRAPARE - Transportation Lack of Transportation (Medical): No Lack of Transportation (Non-Medical): No Intimate Partner Violence: Not At Risk (05/12/2023) Humiliation, Afraid, Rape, and Kick questionnaire Fear of Current or Ex-Partner: No Emotionally Abused: No Physically Abused: No Sexually Abused: No Housing Stability: Low Risk (05/12/2023) Housing Stability Vital Sign Unable to Pay for Housing in the Last Year: No Number of Places Lived in the Last Year: 1 Unstable Housing in the Last Year: No SCREENINGS [place] Coma Scale Best Eye Response: Spontaneous Best Verbal Response: Oriented Best Motor Response: Follows commands Edil Coma Scale Score: 15 PHYSICAL EXAM ED Triage Vitals [05/18/23 1559] Temp Heart Rate Resp BP 36.4 C (97.5 F) (!) 123 18 107/70 SpO2 Temp Source Heart Rate Source Patient Position 98 % Temporal Monitor -- BP Location FiO2 (%) -- -- Gen: NAD Heart: RRR, no murmur Lungs: CTA Abd: soft, non distended and no tenderness to palpation Extremities: 2+ radial and DP. Cap refill normal. No edema. Full range of motion of all 4 extremities Neuro: A&Ox3. Strength 5/5 in bilateral UE and LE bilaterally. Sensation to light touch intact in bilateral UE and LE. Skin: no rash or lesions to exposed skin Psych: normal affect DIAGNOSTIC RESULTS RADIOLOGY (Per Emergency Physician): Interpretation per the Radiologist below, if available at the time of this note: XR chest 1 view Final Result No acute cardiopulmonary disease. Report Dictated on Electronically Signed By: Aba Lu MD Electronically Signed Date/Time: 05/18/2023 4:59 PM EDT LABS: Labs Reviewed CBC WITH AUTO DIFFERENTIAL - Abnormal Result Value Auto WBC 13.8 (*) RBC 5.12 Hemoglobin 12.9 Hematocrit 41.3 MCV 80.7 MCH 25.1 (*) MCHC 31.2 (*) RDW 18.9 (*) Platelets 444 (*) MPV 7.6 nRBC 0.0 Neutrophils Relative 78.9 Lymphocytes Relative 12.2 (*) Monocytes Relative 7.3 Eosinophils Relative 1.0 Basophils Relative 0.6 Neutrophils Absolute 10.9 (*) Lymphocytes Absolute 1.7 Monocytes Absolute 1.0 (*) Eosinophils Absolute 0.1 Basophils Absolute 0.1 COMPREHENSIVE METABOLIC PANEL - Abnormal SODIUM 135 POTASSIUM 5.0 CHLORIDE 98 CARBON DIOXIDE 26 ANION GAP 11 UREA NITROGEN 59 (*) CREATININE 1.38 (*) GLUCOSE 287 (*) CALCIUM 10.2 AST (SGOT) 52 (*) ALT 27 ALKALINE PHOSPHATASE 67 ALBUMIN 4.6 BILIRUBIN, TOTAL 0.4 TOTAL PROTEIN 8.3 (*) eGFR 38.8 (*) COMPLETE URINALYSIS - Abnormal Color, Urine Light Yellow Clarity, Urine Clear pH, Urine 5.0 Leukocytes, Urine 250 (*) Nitrite, Urine Negative Protein, Urine Negative Glucose, Urine Normal Bilirubin, Urine Negative Ketones, Urine Negative Urobilinogen, Urine Normal Blood, Urine Negative RBC, Urine 3-5 (*) WBC, Urine 6-10 (*) Squamous Epithelial, Urine 11-25 (*) Non-Squamous Epithalial Cells, Urine 0-2 (*) Bacteria, Urine Few (*) Mucus, Urine Few Hyaline Casts, Urine 6-10 (*) SPECIFIC GRAVITY OF URINE (NUMERIC) 1.011 SARS-COV-2, FLU A/B, AND RSV COMBO - Normal SARS-CoV-2 Not Detected Respiratory Syncytial Virus Not Detected Influenza A Not Detected Influenza B Not Detected Narrative: Methodology: real-time, RT-PCR The SARS-CoV-2, Flu A/B, and RSV Combo assay is intended for in vitro diagnostic use under the FDA Emergency Use Authorization (EUA). This test has not been FDA cleared or approved. In compliance with this authorization, please visit www.fda.gov/media/396568/download or www.fda.gov/media/262105/download to access the applicable information sheets. LACTIC ACID WITH REFLEX - Normal LACTIC ACID 1.6 TROPONIN, WITH SERIAL REFLEX - Normal TROPONIN I <0.012 Narrative: Patients with high levels of Biotin oral intake (ie >5 mg/day) may have falsely decreased Troponin levels. TROPONIN I - Normal TROPONIN I <0.012 Narrative: Patients with high levels of Biotin oral intake (ie >5 mg/day) may have falsely decreased Troponin levels. COMPLETE URINALYSIS - Normal Color, Urine Light Yellow Clarity, Urine Clear pH, Urine 5.0 Leukocytes, Urine Negative Nitrite, Urine Negative Protein, Urine Negative Glucose, Urine Normal Bilirubin, Urine Negative Ketones, Urine Negative Urobilinogen, Urine Normal Blood, Urine Negative SPECIFIC GRAVITY OF URINE (NUMERIC) 1.009 BLOOD CULTURE BLOOD CULTURE COMPLETE URINALYSIS WITH REFLEX TO CULTURE Narrative: The following orders were created for panel order Urinalysis Complete with reflex to Culture. Procedure Abnormality Status --------- ------ Complete Urinalysis[[id number]] Abnormal Final result Please view results for these tests on the individual orders. TROPONIN I All other labs were within normal range or not returned as of this dictation. EMERGENCY DEPARTMENT COURSE and DIFFERENTIAL DIAGNOSIS/MDM: Vitals: Vitals: 05/18/23 1559 05/18/23 1646 05/18/23 1846 BP: 107/70 100/59 BP Location: Left arm Patient Position: Lying Pulse: (!) 123 88 Resp: 18 17 Temp: 36.4 C (97.5 F) TempSrc: Temporal SpO2: 98% 97% Weight: 51.7 kg (114 lb) Height: 1.524 m (5') Diagnoses as of 05/18/232046 Generalized weakness Lightheadedness Upon arrival to the ED, patient initially tachycardic, otherwise afebrile, hemodynamically stable and saturating well on room air. The differential diagnosis associated with this patient's presentation includes infection process such as acute cystitis with now ascending PEL nephritis versus pneumonia versus COVID/flu/RSV versus ACS versus electrolyte abnormality versus decreased p.o. intake. Our workup consisted of ordering/reviewing EKG, lab work, and chest x-ray.. EKG sinus tachycardia with no ischemic change compared to prior. Troponin negative, low suspicion for ACS at this time. Patient found to have mild leukocytosisof 13.8, however lactate negative, no evidence distress septic shock. Initial urinalysis obtained was contaminated this straight cath urinalysis obtained and negative for acute cystitis distress and ascending infection. No significant Peetz abnormality. Renal function similar to prior. Given normal saline bolus and tachycardia resolved. Chest x-ray with no evidence of pneumonia. Suspect likely decreased p.o. intake and lightheadedness consistent with vasovagal. Shared decision making performed patient feels comfortable following up outpatient as she feels at her baseline following the fluids. Patient medically stable for discharge. Return precautions given. Patient instructed follow-up with primary care physician. Patient agreeable to and understands the plan. External records reviewed: Inpatient notes Per chart review, patient was recently admitted on 05/11/2023 for septic shock believed to be due to pyelonephritis with cultures positive for Klebsiella. Diagnostics interpreted by me: EKG; see my interpretation elsewhere in the chart Lab work as described above Discussions with other clinicians: none Chronic conditions impacting care: Past Medical History: Diagnosis Date Asthma CAD (coronary artery disease) Depression Diabetes (HCC) GERD (gastroesophageal reflux disease) Hyperlipidemia Hypertension Social determinants of health affecting care: none ED Medications managed: Medications sodium chloride 0.9 % bolus 1,000 mL (0 mL IntraVENous Stopped 05/18/23 278) FINAL IMPRESSION 1. Generalized weakness 2. Lightheadedness DISPOSITION Discharge 05/18/2023 08:44:24 PM PATIENT REFERRED TO: Jamie Schroeder [address] [place] [phone] In 1 day DISCHARGE MEDICATIONS: New Prescriptions No medications on file (Comment: Please note this report has been produced using speech recognition software and may contain errors related to that system including errors in grammar, punctuation, and spelling, as well as words and phrases that may be inappropriate. If there are any questions or concerns please feel freeto contact the dictating provider for clarification.) Filipe Jaimes DO (electronically signed) Emergency Medicine Provider Filipe Jaimes DO 05/18/232046 [id number] Telephone encounter Note* Telephone Encounter - Maureen Schwartz LPN - 05/16/2023 9:43 AM EDT Unable to contact patient X2 [id number] Miscellaneous Notes* Telephone Encounter - Maureen Schwartz LPN - 05/16/2023 9:43 AM EDT Unable to contact patient X2 * Telephone Encounter - Maureen Schwartz LPN - 05/15/2023 10:31 AM EDT S: Patient admitted to: [facility] 05/11/23 B: Discharged on : 05/14/23 A: Hospital follow up call initiated to discuss any medication changes, follow up appointments and discharge instructions: Septic shock R: No contact x 1 at : [phone] documented in this [facility]10-19-2023 Telephone encounter Note* Telephone Encounter - Maureen Schwartz LPN - 05/15/2023 10:31 AM EDT S: Patient admitted to: [facility] 05/11/23 B: Discharged on : 05/14/23 A: Hospital follow up call initiated to discuss any medication changes, follow up appointments and discharge instructions: Septic shock R: No contact x 1 at : [phone] [id number] Miscellaneous Notes* Care Coordination - Unknown Case Management - 05/14/2023 11:46 AM EDT Patient Choice Patient Name: ANSON CAPPS Date of : 1940 All Providers Sent Referral Name: [facility] Phone: [phone] Address: [address] [place] [id number] * Home Care - Shira Juarez RN - 05/14/2023 11:46 AM EDT Start PACC Note Home Health Referral Educated patient and daughter Ambreen Dai on Home Care and services available. Patient offeredchoice of available HHC and agreeable to SN, PT services with [facility]. Care Types: None Isolation Precautions: No active isolations Social Determinates of Health: Tobacco Use: Low Risk (05/12/2023) Patient History Smoking Tobacco Use: Never Smokeless Tobacco Use: Never Passive Exposure: Not on file Social History Substance and Sexual Activity Alcohol Use Not Currently Social History Substance and Sexual Activity Drug Use Never Does the patient have any financial resource strain? No Does the patient have any food insecurities? No Does the patient have any housing instabilities? No If any of the above is noted as yes - consider a BOREMATIC OPERATOR evaluation once the patient returns home. START PATIENT REGISTRATION INFORMATION Order Information Order Signing Physician: Dr. Jamee Stewart Service Ordered RN ?: Yes Service Ordered PT ?: Yes Service Ordered OT ?: No Service Ordered ST ?: No Service Ordered BOREMATIC OPERATOR?:No Service Ordered DISABILITY CASE MANAGER?: No Following Physician: Jamie Schroeder Following Physician Overseeing Physician: Dr. Diana Gomes (Required for Residents only) Agreeable to Follow? Yes Date/Time of Call 05/14/23 2:00 PM, Spoke with: Maame in office Care Coordination Same Day SOC?: No Primary Care Physician: Jamie Schroeder Primary Care Physician Primary Care Physician Address: [address] [facility] [id number] Visit Instructions: N/A Service Discharge Location Type: Home with Home Health Care Service Facility Name: N/A Service Floor Facility: N/A Service Room No: N/A Demographics Patient Last Name: Mohsen Patient First Name: Anson Language/Communication Barrier: n/a Service Address: [address] Service City: [facility] ST: [place] Service ZIP: [address] Service Other phone numbers: No relevant phone numbers on file. Emergency Contact: Extended Emergency Contact Information Primary Emergency Contact: KirstyAmbreen Mobile Relation: Daughter Secondary Emergency Contact: DiasGabriel Mobile Relation: Daughter Admission Information Admit Date: 05/11/2023 Patient status at discharge: Inpatient Admitting Diagnosis Septic shock (CMS/HCC) (HCC) [A41.9, R65.21] Urinary tract infection without hematuria, site unspecified [N39.0] Sepsis, due to unspecified organism, unspecified whether acute organ dysfunction present (HCC) [A41.9] Caregiver Information Caregiver First Name: self Caregiver Last Name: self Caregiver Relationship to Patient self Caregiver Caregiver Notes: N/A [employer] Shopping List No END PATIENT REGISTRATION INFORMATION Pt Home Health goal to remain at home COVID Status 1. Do you have any upper respiratory symptoms (cough, SOB, Fever)? Yes hx of COPD 2. Have you been exposed to anyone with COVID-19 Virus? No Answer only if pending or positive for COVID-19? 1. Agreeable to wear PPE at each visit? No 2. Is the hospital supplying them with PPE upon Discharge? No Start PACC Summary General Report/ Additional Comments Admitted to [facility] due to sepsis. Patient complaining of right flank pain back pain and painShe has been urinating every 2 hours for the last week at night which is new for her. She does feel tired. Sheis a little bit short of breath and has a cough but her cough is chronic for her and is not producing a lot of phlegm all over her back that happened just when she was walking to the grocery store. Treating for pyelonephritis. At this time we will treat her with broad-spectrum antibiotics but suspect major source is coming from her urine we will await blood and urine cultures. Patient will be treated on oral antibiotics at discharge. Therapy recommending home therapy also. PT to evalate for home OT. Discharge Date: 05/14/23 Referral Source-PACC: (Hospital/Unit): 2E [facility] / B2-248/B2-248 A End PACC Note * Care Coordination - Tiny Franco RN - 05/14/2023 11:20 AM EDT Images from the original note were not included. Care Management Progress Note Patient with discharge order placed. clinical rn liaison notified, via Careport, that patient being discharged today. Daughter will transport home, Discharge Milestones and Delays Expected Date/Time: 05/14/2023 Midday Disposition: Home or Self Care Transport status: No current request Discharge Milestones Completed Place discharge order Complete med reconciliation Case mgmt discharge readiness Expected Discharge History Expected Date/Time Set By Reviewed At 05/14/2023 Midday Jamee Stewart MD 05/14/2023 10:48 AM TCC estimate 05/14/2023 Tiny Franco RN 05/14/2023 8:03 AM 05/14/2023 Tiny Franco RN 05/12/2023 8:02 AM 05/14/2023 Yen Phelps MD 05/12/2023 3:05 AM 05/14/2023 Yen Phelps MD 05/11/2023 8:57 PM Length of Stay (Days): 3 GMLOS: No GMLOS Documented * Care Plan - Lauren Linares RN - 05/13/2023 10:36 PM EDT Problem: Potential for Compromised Skin Integrity Goal: Skin Integrity is Maintained or Improved Outcome: Progressing Problem: Pain - Adult Goal: Verbalizes/displays adequate comfort level or baseline comfort level Outcome: Progressing Problem: Safety - Adult Goal: Free from fall injury Outcome: Progressing Problem: Chronic Conditions and Co-morbidities Goal: Patient's chronic conditions and co-morbidity symptoms are monitored and maintained or improved Outcome: Progressing The patient is Moderately Stable - Low risk of patient condition declining or worsening The patient's goals for the shift include rest The clinical goals for the shift include rest * Home Care - Shira Juarez RN - 05/13/2023 5:45 PM EDT [employer] following case for Discharge Needs. * Care Coordination - Torri Estrella RN - 05/13/2023 3:53 PM EDT Images from the original note were not included. Care Management Progress Note Chart reviewed. Patient remains on 2 east for treatment of septic shock. Monitoring BP today, 180/103. On room air. On IV Zosyn currently. Blood cultures pending. PT recommends home with home care. Unable to discuss with patient at this time. Placed call to daughter Ambreen, discussed therapy recommendations. She states patient would be agreeable to home PT/OT. TROY tasked to follow. DC plan: Home with Home pt/ot, TROY following. Waiver services. Discharge Milestones and Delays Expected Date/Time: 05/14/[address] discharge order Complete med reconciliation Case mgmt discharge readiness Clinical Stability Diagnsotic Workup Expected Discharge History Expected Date/Time Set By Reviewed At 05/14/2023 Tiny Franco RN 05/12/2023 8:02 AM 05/14/2023 Yen Phelps MD 05/12/2023 3:05 AM 05/14/2023 Yen Phelps MD 05/11/2023 8:57 PM Length of Stay (Days): 2 GMLOS: No GMLOS Documented * Care Coordination - Tiny Franco RN - 05/12/2023 11:15 AM EDT Care Managment Initial Assessment Date: 05/12/2023 Patient Name: Anson Capps : 1940 Patient Information Source of Information: Patient Cognition/Language: WFL - Within Functional Limits Permission given to speak with patient credit and collections representative/caregiver as indicated: Yes (Ambreen Dai(Daughter) [phone] or any one of her daughters.) Confirmation of Payer with patient/family: Yes Payer Name: [facility] Medicare [place]: No Confirmation of Primary Care Physician: Confirmed PCP Name: Jamie Schroeder Seen in last 2 years?: Yes Primary Caregiver: Self If assistance needed, confirmed caregiver ready, willing and able to care for patient at discharge:Yes Confirmed with: Patient states daughters help as well as DISABILITY CASE MANAGER 2x week. Living Arrangements Current Residence: Apartment Number of Floors 1 Number of Entry Steps: (elevator) Bed/Bath Levels: Both first floor Facility: Facility Name: Plan to Return: Lives with: Alone Support Systems: Children, Friends/neighbors, Home care staff Activities of Daily Living Ambulation: Assistance (cane) Bathing/Dressing: Independent Elimination/Continence/Toileting: Independent Feeding: Independent Who Assists with Activities of Daily Living: Instrumental Activities of Daily Living Prescription Coverage: Yes [facility]acy Used[facility]. Medication Management: Independent Transportation/Shopping: Assistance Provider Transportation/Shopping Assistance Provider Name: daughters Transportation Mode: Car Needs Assistance with Transportation at Discharge: No (one of daughters can transport) Meal Preparation: Independent Laundry/Cleaning: Assistance Provider Laundry/Cleaning Assistance Provider Name: [facility] Finances/Bill Paying: Independent Communication: Independent Types of Care Services/Equipment Utilized Care Services: Passport/Waiver Care Services Provider Name: Patient unsure of name Dialysis Type: NA Durable Medical Equipment: Cane, Walker, Wheelchair (standard or power), Shower Seat, Bedside Commode, Glucometer, Other (Comment) (blood pressure cuff) Patient's Goal/Discharge Plan Patient expects to be discharged to: home Discharge Planning Actions: Continue to follow Patient's Choice Rights and [employer] and Collaborative Relationships Disclosed as Indicated for Post-Acute Care: Interdisciplinary Team Engagement: Social Work Referral for: Additional Information: Spoke with patient at bedside. Introduced self and role. Discharge planning needs discussed. Patient in hospital due to septic shook. Patient on 2 IV antibiotics. Has pending blood cultures, abnormal labs. Patient states she lives alone, is active with waiver, has a DISABILITY CASE MANAGER 2x/week for 3 hours. States her daughters are active and help as needed. She denies any needs at this time. TCC will continue to follow. Tiny Franco RN documented in this [facility]10-18-2023 Note* Care Coordination - Unknown Case Management - 05/14/2023 11:46 AM EDT Patient Choice Patient Name: ANSON CAPPS Date of : 1940 All Providers Sent Referral Name: [facility] Phone: [phone] Address: [address] [place] [id number] [facility] [id number] Note* Home Care - Shira Juarez RN - 05/14/2023 11:46 AM EDT Start PACC Note Home Health Referral Educated patient and daughter Ambreen Dai on Home Care and services available. Patient offeredchoice of available HHC and agreeable to SN, PT services with [facility] - Home Care. Care Types: None Isolation Precautions: No active isolations Social Determinates of Health: Tobacco Use: Low Risk (05/12/2023) Patient History Smoking Tobacco Use: Never Smokeless Tobacco Use: Never Passive Exposure: Not on file Social History Substance and Sexual Activity Alcohol Use Not Currently Social History Substance and Sexual Activity Drug Use Never Does the patient have any financial resource strain? No Does the patient have any food insecurities? No Does the patient have any housing instabilities? No If any of the above is noted as yes - consider a BOREMATIC OPERATOR evaluation once the patient returns home. START PATIENT REGISTRATION INFORMATION Order Information Order Signing Physician: Dr. Jamee Stewart Service Ordered RN ?: Yes Service Ordered PT ?: Yes Service Ordered OT ?: No Service Ordered ST ?: No Service Ordered BOREMATIC OPERATOR?:No Service Ordered DISABILITY CASE MANAGER?: No Following Physician: Jamie Schroeder Following Physician Overseeing Physician: Dr. Diana Gomes (Required for Residents only) Agreeable to Follow? Yes Date/Time of Call 05/14/23 2:00 PM, Spoke with: Maame in office Care Coordination Same Day SOC?: No Primary Care Physician: Jamie Schroeder Primary Care Physician Primary Care Physician Address: [address] [facility] [address] Visit Instructions: N/A Service Discharge Location Type: Home with Home Health Care Service Facility Name: N/A Service Floor Facility: N/A Service Room No: N/A Demographics Patient Last Name: Mohsen Patient First Name: Anson Language/Communication Barrier: n/a Service Address: [address] [place] [address] Service City: [facility] [place]: [place] Service ZIP: [address] Service Other phone numbers: No relevant phone numbers on file. Emergency Contact: Extended Emergency Contact Information Primary Emergency Contact: Ambreen Dai Mobile Relation: Daughter Secondary Emergency Contact: Gabriel Dias Mobile Relation: Daughter Admission Information Admit Date: 05/11/2023 Patient status at discharge: Inpatient Admitting Diagnosis Septic shock (CMS/HCC) (HCC) [A41.9, R65.21] Urinary tract infection without hematuria, site unspecified [N39.0] Sepsis, due to unspecified organism, unspecified whether acute organ dysfunction present (HCC) [A41.9] Caregiver Information Caregiver First Name: self Caregiver Last Name: self Caregiver Relationship to Patient self Caregiver Caregiver Notes: N/A [employer]-appsFreedom List No END PATIENT REGISTRATION INFORMATION Pt Home Health goal to remain at home COVID Status 1. Do you have any upper respiratory symptoms (cough, SOB, Fever)? Yes hx of COPD 2. Have you been exposed to anyone with COVID-19 Virus? No Answer only if pending or positive for COVID-19? 1. Agreeable to wear PPE at each visit? No 2. Is the hospital supplying them with PPE upon Discharge? No Start PACC Summary General Report/ Additional Comments Admitted to [facility] due to sepsis. Patient complaining of right flank pain back pain and painShe has been urinating every 2 hours for the last week at night which is new for her. She does feel tired. Sheis a little bit short of breath and has a cough but her cough is chronic for her and is not producing a lot of phlegm all over her back that happened just when she was walking to the grocery store. Treating for pyelonephritis. At this time we will treat her with broad-spectrum antibiotics but suspect major source is coming from her urine we will await blood and urine cultures. Patient will be treated on oral antibiotics at discharge. Therapy recommending home therapy also[facility] Discharge Date: 05/14/23 Referral Source-PACC: (Hospital/Unit): 2E H / B2-248/B2-248 A End PACC Note [id number]* Care Coordination - Unknown Case Management - 05/14/2023 11:46 AM EDT Patient Choice Patient Name: ANSON CAPPS Date of : 1940 All Providers Sent Referral Name: [facility] Phone: [phone] Address: [address] [place] [address] [id number]* Home Care - Shira Juarez RN - 05/14/2023 11:46 AM EDT Start PACC Note Home Health Referral Educated patient and daughter Ambreen Dai on Home Care and services available. Patient offeredchoice of available HHC and agreeable to SN, PT services with [facility] - Home Care. Care Types: None Isolation Precautions: No active isolations Social Determinates of Health: Tobacco Use: Low Risk (05/12/2023) Patient History Smoking Tobacco Use: Never Smokeless Tobacco Use: Never Passive Exposure: Not on file Social History Substance and Sexual Activity Alcohol Use Not Currently Social History Substance and Sexual Activity Drug Use Never Does the patient have any financial resource strain? No Does the patient have any food insecurities? No Does the patient have any housing instabilities? No If any of the above is noted as yes - consider a BOREMATIC OPERATOR evaluation once the patient returns home. START PATIENT REGISTRATION INFORMATION Order Information Order Signing Physician: Dr. Jamee Stewart Service Ordered RN ?: Yes Service Ordered PT ?: Yes Service Ordered OT ?: No Service Ordered ST ?: No Service Ordered BOREMATIC OPERATOR?:No Service Ordered DISABILITY CASE MANAGER?: No Following Physician: Jamie Schroeder Following Physician Overseeing Physician: Dr. Diana Gomes (Required for Residents only) Agreeable to Follow? Yes Date/Time of Call 05/14/23 2:00 PM, Spoke with: Maame in office Care Coordination Same Day SOC?: No Primary Care Physician: Jamie Schroeder Primary Care Physician Primary Care Physician Address: [address] [facility] [address] Visit Instructions: N/A Service Discharge Location Type: Home with Home Health Care Service Facility Name: N/A Service Floor Facility: N/A Service Room No: N/A Demographics Patient Last Name: Mohsen Patient First Name: Anson Language/Communication Barrier: n/a Service Address: [address] [place] [address] Service City: [facility] [place]: [place] Service ZIP: [address] Service Other phone numbers: No relevant phone numbers on file. Emergency Contact: Extended Emergency Contact Information Primary Emergency Contact: Belén Daiy Mobile Relation: Daughter Secondary Emergency Contact: Gabriel Dias Mobile Relation: Daughter Admission Information Admit Date: 05/11/2023 Patient status at discharge: Inpatient Admitting Diagnosis Septic shock (CMS/HCC) (HCC) [A41.9, R65.21] Urinary tract infection without hematuria, site unspecified [N39.0] Sepsis, due to unspecified organism, unspecified whether acute organ dysfunction present (HCC) [A41.9] Caregiver Information Caregiver First Name: self Caregiver Last Name: self Caregiver Relationship to Patient self Caregiver Caregiver Notes: N/A [employer] Shopping List No END PATIENT REGISTRATION INFORMATION Pt Home Health goal to remain at home COVID Status 1. Do you have any upper respiratory symptoms (cough, SOB, Fever)? Yes hx of COPD 2. Have you been exposed to anyone with COVID-19 Virus? No Answer only if pending or positive for COVID-19? 1. Agreeable to wear PPE at each visit? No 2. Is the hospital supplying them with PPE upon Discharge? No Start PACC Summary General Report/ Additional Comments Admitted to [facility] due to sepsis. Patient complaining of right flank pain back pain and painShe has been urinating every 2 hours for the last week at night which is new for her. She does feel tired. Sheis a little bit short of breath and has a cough but her cough is chronic for her and is not producing a lot of phlegm all over her back that happened just when she was walking to the grocery store. Treating for pyelonephritis. At this time we will treat her with broad-spectrum antibiotics but suspect major source is coming from her urine we will await blood and urine cultures. Patient will be treated on oral antibiotics at discharge. Therapy recommending home therapy also. PT to evalate for home OT. Discharge Date: 05/14/23 Referral Source-PACC: (Hospital/Unit): 2E [facility] / B2-248/B2-248 A End PACC Note [id number]* Care Coordination - Tiny Franco RN - 05/14/2023 11:20 AM EDT Images from the original note were not included. Care Management Progress Note Patient with discharge order placed. clinical rn liaison notified, via Careport, that patient being discharged today. Daughter will transport home, Discharge Milestones and Delays Expected Date/Time: 05/14/2023 Midday Disposition: Home or Self Care Transport status: No current request Discharge Milestones Completed Place discharge order Complete med reconciliation Case mgmt discharge readiness Expected Discharge History Expected Date/Time Set By Reviewed At 05/14/2023 Midday Jamee Stewart MD 05/14/2023 10:48 AM TCC estimate 05/14/2023 Tiny Franco RN 05/14/2023 8:03 AM 05/14/2023 Tiny Franco RN 05/12/2023 8:02 AM 05/14/2023 Yen Phelps MD 05/12/2023 3:05 AM 05/14/2023 Yen Phelps MD 05/11/2023 8:57 PM Length of Stay (Days): 3 GMLOS: No GMLOS Documented [id number] [facility]* Care Coordination - Tiny Franco RN - 05/14/2023 11:20 AM EDT Images from the original note were not included. Care Management Progress Note Patient with discharge order placed. clinical rn liaison notified, via Careport, that patient being discharged today. Daughter will transport home, Discharge Milestones and Delays Expected Date/Time: 05/14/2023 Midday Disposition: Home or Self Care Transport status: No current request Discharge Milestones Completed Place discharge order Complete med reconciliation Case mgmt discharge readiness Expected Discharge History Expected Date/Time Set By Reviewed At 05/14/2023 Midday Jamee Stewart MD 05/14/2023 10:48 AM TCC estimate 05/14/2023 Tiny Franco RN 05/14/2023 8:03 AM 05/14/2023 Tiny Franco RN 05/12/2023 8:02 AM 05/14/2023 Yen Phelps MD 05/12/2023 3:05 AM 05/14/2023 Yen Phelps MD 05/11/2023 8:57 PM Length of Stay (Days): 3 GMLOS: No GMLOS Documented [id number] Hospital Discharge instructions* Discharge Instr - Activity* Jamee Stewart MD - 05/14/2023 10:49 AM EDT As tolerated * Discharge Instr - Diet* Jamee Stewart MD - 05/14/2023 10:49 AM EDT Dietary Orders (From admission, onward) Start Ordered 05/12/23430 Adult diet Regular Diet effective now Question: Diet type Answer: Regular 05/12/23430 * Discharge Instr - Other Orders* Jamee Stewart MD - 05/14/2023 10:49 AM EDT Follow up with PCP in 1-2 weeks * Discharge Instr - ITALIA* Janae Mccullough RN - 05/14/2023 10:49 AM EDT * Attachments The following attachments cannot be sent through Care Everywhere. * Urinary Tract Infection, Adult ED ([place]) documented in this [facility]10-18-2023 History of Present illness Narrative* Rojelio Rowley OT - 05/14/2023 10:33 AM EDT Images from the original note were not included. OCCUPATIONAL THERAPY [facility] Initial Evaluation Name/MRN: Anson Capps ([id number]) Evaluation Date: 05/14/2023 Date of : 1940 Admission Date: 05/11/2023 4:06 PM Age: 82 y.o. Room/Bed: B2248/[facility]248 A Discharge Recommendation: Home with Home OT and Home with Assist PRN Equipment Needed: none Assessment IMPRESSION: Pt in 05/11 with c/o generalized weakness, pyelonephritis, and sepsis. She was previously IND for ADLs, IADLs, and functional transfers / mobility with a SPC. She is currently CGA - SBA for Adls, functional transfers / mobility with pt declining SPC this date. She demos increased fatigue this date with completion of short activity. She would benefit from skilled OT services to addressthe below. Recommend planned discharge for [facility] with assist PRN. Performance Deficits /Impairments: Decreased Functional Mobility, Decreased ADL status, Decreased Endurance, Decreased Balance, and Decreased High Level IADLs Prognosis: Good Decision Making: Medium Complexity Subjective Very pleasant and cooperative. PIV intact and in place. Pain: Pt denies any current pain. Past Medical History: Past Medical History: Diagnosis Date Asthma CAD (coronary artery disease) Depression Diabetes (HCC) GERD (gastroesophageal reflux disease) Hyperlipidemia Hypertension Past Surgical History: History reviewed. No pertinent surgical history. Admission Diagnosis: Patient Active Problem List Diagnosis Date Noted Septic shock ([facility]/HCC) (HCC) 05/11/2023 Medical Precautions: No active isolations Proper PPE donned/doffed in accordance with facility standards. Fall Risk: Ceballos Fall Risk Score: 60 (High Risk) Precautions/Restrictions: N/A Family/Caregiver Present: none Overall Cognitive Status: WNL Overall Orientation Status: Oriented x4 Social/Functional History Patient admitted from home. Lives With: Alone Type of Home: apartment Home Layout: Single Level Home Home Access: Level Entry Home Equipment: cane Homemaking Responsibilities: Independent Receives Help From: Family Active Manager Ethics: N/A Prior Level of Function ADL Assistance: Independent Ambulation Assistance: Independent Device(s) used: cane Transfer Assistance: Independent Objective ADLs Toileting: SBA Increased time required to complete. No true LOB noted at this time. She was able to complete BSC level toileting this date. She requires no physical assist for pericare or clothing management this date. Good use of BSC rails for stability during OOB activity. Good functional reach, balance, and strength noted. Mild fatigue noted with completion. Based on functional ability, anticipate that pt would require CGA - SBA for LB ADLs and SUP for UB ADLs. Upper Extremity Assessment AROM: WFL PROM: WFL Strength: WFL Vision: no visual deficits Hearing: normal Bed Mobility Pt seated at EOB pre /post session. Transfers/Functional Mobility Sit to stand: SBA Stand to sit: SBA Bedside commode: SBA Sitting balance: Modified Independent Standing balance: SBA Functional mobility: SBA No true LOB with OOB activity. She was able to complete sit<>stand from EOB to no device withSBA overall. Pt declined use of FWW and cane at this time for completion. She completed stand step transfer to BSC with use of BSC rails for stability. No true LOB with good noted BLE management for proper MUNIR. No c/o dizziness this date. She completed short mobiltiy in hallway without device with occasional use of environmental supports and SBA for safety during OOB activity. Device(s) used: front wheeled walker AM-PAC AM-PAC Inpatient Daily Activity Raw Score: 19 ADL Inpatient [facility] G-Code Modifier: CK Plan Pt would benefit from skilled acute OT services to address Strengthening, Balance Training, Functional Mobility Training, Endurance Training, Safety Education and Training, Patient/Caregiver Training, Equipment Evaluation/Education, Self-Care/ADL Training, and Home Management Training. Frequency: 5 visits during current hospital admission or until additional recommendations are made Barriers: Decreased endurance Prognosis: good Safety/Education Safety Safety Devices in place: All fall risk precautions in place, call light within reach, gait belt, patient at risk for falls, nurse notified, and no alarms engaged upon entry Restraints: No Education Education Given To: patient Education Provided: OT Role, Plan of Care, Transfer Training, Equipment, and Fall Prevention Education Education Method: Verbal, Demonstration, and Teach Back Barriers to Learning: None Education Outcome: Verbalized Understanding and Demonstrated Understanding Goals Patient Stated Goal: to return home. Encounter Problems Encounter Problems (Active) Dressings Lower Extremities Patient will dress lower body MOD I Start: 05/14/23 Expected End: 05/21/23 Mobility Patient will demonstrate functional mobility with MOD I and LRD Start: 05/14/23 Expected End: 05/21/23 Toileting Patient will complete toileting tasks at standard toilet with modified independence. Start: 05/14/23 Expected End: 05/21/23 Transfers Patient will complete functional transfer with least restrictive device with modified independence in order to prepare for ambulation. Start: 05/14/23 Expected End: 05/21/23 Therapy Time Individual Co-treatment Time In 0945 Time Out 0957 Minutes 12 Rojelio Rowley OT Patient's Occupational Therapy Plan of Care supervision is transferred to a [facility] Occupational Therapist. Goals and/or treatment plan was established in collaboration with patient/family/other representatives. * Ricardo Sood PT - 05/13/2023 2:00 PM EDT Images from the original note were not included. PHYSICAL THERAPY [facility] Initial Evaluation Name/MRN: Anson Capps ([id number]) Evaluation Date: 05/13/2023 Date of : 1940 Admission Date: 05/11/2023 4:06 PM Age: 82 y.o. Room/Bed: B2-248/B2-248 A Discharge Recommendation: Home with Home PT and Home with Assist PRN Equipment Needed: none Assessment IMPRESSION: Pt admitted 05/11 with generalized weakness, pyelonephritis, sepsis, lactic acidosis. At baseline is IND with SPC. She demo transfers and ambulation with SPC and SBA. She reports feeling somewhat weaker/more fatigued than her baseline. She would likely benefit from [facility] PT to promote mobility and decrease falls risk Diagnosis: lactic acidosis, pyelonephritis, sepsis Prognosis: good Performance Deficits /Impairments: Decreased Functional Mobility, Decreased Strength, Decreased Endurance, and Decreased Balance Decision Making: Medium Complexity Subjective Pt very pleasant and agree to PT Pain: Pt denies any current pain. Past Medical History: Past Medical History: Diagnosis Date Asthma CAD (coronary artery disease) Depression Diabetes ([facility]) GERD (gastroesophageal reflux disease) Hyperlipidemia Hypertension Past Surgical History: History reviewed. No pertinent surgical history. Admission Diagnosis: Patient Active Problem List Diagnosis Date Noted Septic shock ([facility]) ([facility]) 05/11/2023 Medical Precautions: No active isolations Proper PPE donned/doffed in accordance with facility standards. Fall Risk: Ceballos Fall Risk Score: 45 (High Risk) Precautions/Restrictions: N/A Family/Caregiver Present: child(kiran) Overall Cognitive Status: WNL Overall Orientation Status: Oriented x4 Vision: no visual deficits Hearing: normal Social/Functional History Patient admitted from home. Lives With: Alone Type of Home: apartment Home Layout: Single Level Home Home Access: Level Entry Home Equipment: cane Homemaking Responsibilities: Independent Receives Help From: Family Active Manager Ethics: N/A Prior Level of Function ADL Assistance: Independent Ambulation Assistance: Independent SPC Transfer Assistance: Independent Objective Lower Extremity Assessment AROM: WFL Strength: WFL Bed Mobility: NT-seated EOB pre and post session Transfers Sit to stand: SBA, Pt complete functional transfer to SPC with SBA, demo good hand placement and noLOB, demo good eccentric control to sit Stand to sit: SBA Ambulation Ambulation 1 Assistive device(s) used: cane Assist level: SBA, Pt ambulate with SPC and SBA, demo short reciprocal pattern with no LOB, demo decreased benoit. She reports slightly weaker/more fatigued than normal. Distance (ft): ~100 ft Quality of gait: No LOB, reciprocal stepping, slow benoit Outcome Measures AM-PAC How much HELP from another person do you currently need Turning from your back to your side while in a flat bed without using bedrails?: None Moving from lying on your back to sitting on the side of a flat bed without using bedrails?: None Moving to and from a bed to a chair (including a wheelchair)?: A Little Standing up from a chair using your arms (wheelchair or bedside chair)?: A Little Walking in a hospital room?: A Little Stair climbing assessed?: No AM-PAC Inpatient Mobility Raw Score (No Stairs) : 17 Plan Pt would benefit from skilled acute PT services to address Strengthening, Balance Training, Functional Mobility Training, Endurance Training, Gait Training, Pain Management, Safety Education and Training, Patient/Caregiver Training, Equipment Evaluation/Education, and Positioning. Frequency: 5 visits during current hospital admission or until additional recommendations are made Barriers: None Safety/Education Safety Safety Devices in place: All fall risk precautions in place, call light within reach, left in bed, gait belt, patient at risk for falls, and nurse notified Restraints: No Education Education Given To: patient and daughter Education Provided: PT Role, PT Goals, Gait Training, Plan of Care, Transfer Training, Energy Conservation, Family Education, Equipment, Fall Prevention Education, Discharge Recommendations, and Benefits of Increasing Activity Education Method: Verbal Barriers to Learning: None Education Outcome: Verbalized Understanding, Demonstrated Understanding, and Continued Education Needed Goals Patient Stated Goal: None stated Encounter Problems Encounter Problems (Active) Exercise Patient will complete lower extremity exercises for 1-2 sets / 5-10 reps in order to improve strength and activity tolerance for mobility. Start: 05/13/23 Expected End: 05/20/23 Mobility Patient will ambulate 100 feet with modified independence and straight cane in order to improve safety and independence with mobility. Start: 05/13/23 Expected End: 05/20/23 Pain - Adult Transfers Patient will perform bed mobility with modified independence in order to improve independence and prepare for out of bed mobility. Start: 05/13/23 Expected End: 05/20/23 Patient will complete sit to stand transfer with modified independence to straight cane in order toimprove safety and prepare for out of bed mobility. Start: 05/13/23 Expected End: 05/20/23 Therapy Time Individual Co-treatment Time In 1325 Time Out 1335 Minutes 10 Ricardo Sood PT Patient's Physical Therapy Plan of Care supervision is transferred to a [facility] Physical Therapist. Goals and/or treatment plan was established in collaboration with patient/family/other representatives. * NIMESH Cottrell CNP - 05/13/2023 12:48 PM EDT BONY following for care progression Orders placed for PT/OT for increasing activity This patient was seen as a hospital courtesy for improved patient care. Thank you for allowing me to participate in the medical care of your patient. Work Categories (check all that apply) [] Avoidable Day Recovered [] Query Response for [name] [x] Discharge Planning [] Readmission Risk Addressed [] PSI / HAC reviewed [] Med Rec Addressed [] SOI Expected Impact [] ROM Expected Impact [] POA Clarified [] BOWLING OR SKATING FRONT DESK CLERK Avoided [] Nursing Function [] Provider Function for [name] [x] Orders Placed [] Symptom Assessment [] Patient Experience [] Patient / Caregiver Conversation * Carolyn Mccullough - 05/13/2023 9:23 AM EDT Nutrition rescreen complete. Pt assigned a level one for nutrition care. * Guadalupe Zambrano - 05/13/2023 9:05 AM EDT Images from the original note were not included. [phone]: Please page sd [phone]) for patient care issues. [phone]: Please page [facility] night Hospitalist for any issues. Subjective: Admit Date: 05/11/2023 PCP: Jamie Schroeder Room#: B2248/B2-957 Oscar Capps is a 82 y.o. female who presents with Septic shock (CMS/HCC) (HCC) Interval History: No overnight issues. Patient states she has improved since yesterday with no paintoday. Was able to defecate yesterday and states urinary symptoms have improved. Denies chest pain,sob, abdominal pain, nausea, vomiting, diarrhea, constipation, fevers, or chills. Adult diet Regular 24HR INTAKE/OUTPUT: Intake/Output Summary (Last 24 hours) at 05/13/2023 09 Last data filed at 05/13/2023 0500 Gross per 24 hour Intake 1040 ml Output 1700 ml Net -660 ml LABS: CBC: Recent Labs 05/11/23 1630 05/13/23 025 WBC 18.6* 11.3* RBC 4.55 3.86 HGB 11.5* 9.6* HCT 37.2 30.7* MCV 81.8 79.7* RDW 17.8* 18.6* PLT 446* 375 BMP: Recent Labs 05/11/23 16305/13/23252 NA 134* 140 K 4.6 4.0 CL 99 108* CO2 20* 26 BUN 52* 31* CREATININE 1.33* 1.15* GLUCOSE 124* 140* CALCIUM 9.2 8.6 ANIONGAP 15* 6 LIVER PROFILE: Recent Labs 05/11/23 2324 AST 37 ALT 19 BILITOT 0.4 ALKPHOS 48 PROT 6.8 PT/INR: No results for input(s): PROTIME, INR in the last 72 hours. CARDIAC ENZYMES: Recent Labs 05/11/23 16305/11/23195405/11/232323 TROPONINI <0.012 <0.012 <0.012 Procalcitonin: Lab Results Component Value Date PROCAL 0.04 05/11/2023 Objective: Vitals: BP (!) 164/88 Pulse 96 Temp 36.5 C (97.7 F) (Temporal) Resp 18 Ht 5' (1.524 m) Wt114 lb (51.7 kg) SpO2 95% BMI 22.26 kg/m Pulse Ox: SpO2 Av % Min: 95 % Max: 95 % Supplemental O2: 05/13/2023 General appearance: No apparent distress, appears stated age, HEENT: Eyes: No scleral icterus Oral: Tongue is semi-moist Cardiovascular: S1/S2 heard, RRR Respiratory: Clear to auscultation bilaterally Abdomen: Soft, non-tender, non-distended bowel sounds positive, no CVA tenderness Musculoskeletal: No obvious deformities seen Skin: No visible rashes or lesions. Medications: atorvastatin, 40 mg, Oral, Daily cloNIDine, 0.2 mg, Oral, Daily clopidogrel, 75 mg, Oral, Daily dulaglutide, 1.5 mg, SubCUTAneous, Weekly DULoxetine, 30 mg, Oral, Daily enoxaparin, 30 mg, SubCUTAneous, Daily ferrous sulfate, 187.5 mg, Oral, Daily piperacillin-tazobactam, 3,375 mg, IntraVENous, q8h sennosides, 2 tablet, Oral, BID vancomycin, 750 mg, IntraVENous, q24h Assessment Septic shock - likely urinary source Acute pyelonephritis - on zosyn and vancomycin, discontinue vancomycin since the urine culture shows Klebsiella Klebsiella UTI-sensitivities are still pending ALLAN - improving Constipation - improved. Patient able to defecate yesterday Leukocytosis - improving Normocytic anemia Chronic problems COPD - albuterol as needed and nebulizing treatments DM type II Hyperlipidemia Hypertension CAD - on plavix GERD Depression Plan Continue IV Zosyn, stop vancomycin Monitor renal function and hemoglobin for improvement Blood pressure is better after giving her medications will monitor closely We will plan discharge tomorrow once sensitivities are available and she looks much improved Diet Adult diet Regular DVT Prophylaxis [x] Lovenox, [] Heparin, [] SCDs, [x] Ambulation [] Already on Anticoagulation GI Prophylaxis [] PPI, [] H2 Andrea, [] Carafate, [] Diet/Tube Feeds Code Status Full Code Disposition Patient requires continued admission due to sepsis likely from pyelonephritis MDM [] Low, [] Moderate,[] High Patient's risk as above Extended Emergency Contact Information Primary Emergency Contact: Ambreen Dai Mobile Relation: Daughter Secondary Emergency Contact: Gabriel Dias Mobile Relation: Daughter Advance Directive: Full Code Discharge planning: TBD Guadalupe Zambrano Division of Hospitalist Medicine Inpatient Medical Services/[facility] Associated attestation - Jamee Stewart MD - 05/13/2023 5:10 PM EDT I have evaluated the patient and reviewed the case with the PA/SHALE MINER. I agree with the current plan ofcare including the workup, evaluation, management, and diagnosis. Care plan has been discussed. Thedocumentation below has been reviewed and edited as needed to reflect the findings of my evaluation. Greater than 51% of the 15 minute face to face encounter was spent discussing/counseling the patient regarding the care plan for this patient. The patient was seen and examined independently and relevant data reviewed by myself. A full chart review was performed. Rounding Hospitalist * Yakelin Art RN - 05/12/2023 7:10 PM EDT Patient's daughter [facility] home. Message sent to pharmacy to reschedule. * Jamee Stewart MD - 05/12/2023 11:47 AM EDT Images from the original note were not included. Hospitalist Progress Note 05/12/2023 10:17 PM [phone]: Please reach me on Perfect Serve patient care issues. [phone]: Please page [facility] Hospitalist for any issues. Subjective: Admit Date: 05/11/2023 PCP: Jamie Schroeder Room#: B2-248/B2-248 A Follow up on patient admitted after midnight. Patient admitted for: Acute pyelonephritis, on Zosyn and vancomycin Lactic acidosis, on metformin at home will hold it, recheck lactic acid Acute renal insufficiency with high anion gap COPD, and albuterol as needed and nebulizing treatments Constipation with rectal impaction Type 2 diabetes mellitus Sepsis syndrome- on zosyn and vancomycin Hyperlipidemia Hypertension CAD-on Plavix GERD Depression Past Medical History: Past Medical History: Diagnosis Date Asthma CAD (coronary artery disease) Depression Diabetes (HCC) GERD (gastroesophageal reflux disease) Hyperlipidemia Hypertension This is a nonbillable note Discussed with patient and her daughter at the bedside All labs, diagnostic studies, imaging, and progress notes reviewed. Jamee Stewart MD Division of Hospitalist Medicine [facility] * Alexandr Dasilva [facility] - 05/12/2023 7:37 AM EDT Pharmacy Vancomycin Consult Follow-Up Note Non-BOWLING OR SKATING FRONT DESK CLERK Patients Current Dosinmg LD -> 750mg q24hr CREATININE Date Value Ref Range Status 05/11/2023 1.33 (H) 0.52 - 1.04 mg/dL Final UREA NITROGEN Date Value Ref Range Status 05/11/2023 52 (H) 7 - 17 mg/dL Final Auto WBC Date Value Ref Range Status 05/11/2023 18.6 (H) 3.6 - 10.7 10*3/uL Final Ht Readings from Last 1 Encounters: 05/11/23 1.524 m (5') Wt Readings from Last 1 Encounters: 05/11/23 51.7 kg (114 lb) Body mass index is Body mass index is 22.26 kg/m . Random: 10.8 mcg/ml drawn 05/12 at 0419 Calculated AUC: 523 mg/L.hr Assessment/Plan: Calculated AUC is 523 mg/L.hr, which is within goal range of 400-600. Will continue with current dosing regimen and continue to follow. documented in this encounterSMiddletown [id number] Plan of care note* Care Plan - Lauren Linares RN - 05/13/2023 10:36 PM EDT Problem: Potential for Compromised Skin Integrity Goal: Skin Integrity is Maintained or Improved Outcome: Progressing Problem: Pain - Adult Goal: Verbalizes/displays adequate comfort level or baseline comfort level Outcome: Progressing Problem: Safety - Adult Goal: Free from fall injury Outcome: Progressing Problem: Chronic Conditions and Co-morbidities Goal: Patient's chronic conditions and co-morbidity symptoms are monitored and maintained or improved Outcome: Progressing The patient is Moderately Stable - Low risk of patient condition declining or worsening The patient's goals for the shift include rest The clinical goals for the shift include rest [id number]* Home Care - Shira Juarez RN - 05/13/2023 5:45 PM EDT Aluminum Polisher following case for Discharge Needs. [id number] Note* Home Care - Shira Juarez RN - 05/13/2023 5:45 PM EDT Aluminum Polisher following case for Discharge Needs. [facility] [id number] Note* Care Coordination - Torri Estrella RN - 05/13/2023 3:53 PM EDT Images from the original note were not included. Care Management Progress Note Chart reviewed. Patient remains on 2 east for treatment of septic shock. Monitoring BP today, 180/103. On room air. On IV Zosyn currently. Blood cultures pending. PT recommends home with home care. Unable to discuss with patient at this time. Placed call to daughter Ambreen, discussed therapy recommendations. She states patient would be agreeable to home PT/OT. TROY tasked to follow. DC plan: Home with Home pt/ot, TROY following. Waiver services. Discharge Milestones and Delays Expected Date/Time: 05/14/[address] discharge order Complete med reconciliation Case mgmt discharge readiness Clinical Stability Diagnsotic Workup Expected Discharge History Expected Date/Time Set By Reviewed At 05/14/2023 Tiny Franco RN 05/12/2023 8:02 AM 05/14/2023 Yen Phelps MD 05/12/2023 3:05 AM 05/14/2023 Yen Phelps MD 05/11/2023 8:57 PM Length of Stay (Days): 2 GMLOS: No GMLOS Documented [facility] [id number] Note* Care Coordination - Torri Estrella RN - 05/13/2023 3:53 PM EDT Images from the original note were not included. Care Management Progress Note Chart reviewed. Patient remains on 2 east for treatment of septic shock. Monitoring BP today, 180/103. On room air. On IV Zosyn currently. Blood cultures pending. PT recommends home with home care. Unable to discuss with patient at this time. Placed call to daughter Ambreen, discussed therapy recommendations. She states patient would be agreeable to home PT/OT. TROY tasked to follow. DC plan: Home with Home pt/ot, TROY following. Waiver services. Discharge Milestones and Delays Expected Date/Time: 05/14/[address] discharge order Complete med reconciliation Case mgmt discharge readiness Clinical Stability Diagnsotic Workup Expected Discharge History Expected Date/Time Set By Reviewed At 05/14/2023 Tiny Franco RN 05/12/2023 8:02 AM 05/14/2023 Yen Phelps MD 05/12/2023 3:05 AM 05/14/2023 Yen Phelps MD 05/11/2023 8:57 PM Length of Stay (Days): 2 GMLOS: No GMLOS Documented [facility] [id number] Consult note* Alexandr Dasilva RPh - 05/13/2023 2:57 PM EDTAssociated Order(s): PHARMACY TO DOSE VANCO Vancomycin therapy has been discontinued by Dr. Stewart on 05/13. Thank you for the consult. Pharmacy signing off for vancomycin dosing. Alexandr Dasilva RPh, PharmD Date: 05/13/23 Time: 2:56 PM [facility] [id number] Consult note* Alexandr Dasilva RPh - 05/13/2023 2:57 PM EDTAssociated Order(s): PHARMACY TO DOSE VANCO Vancomycin therapy has been discontinued by Dr. Stewart on 05/13. Thank you for the consult. Pharmacy signing off for vancomycin dosing. Alexandr Dasilva [facility], PharmD Date: 05/13/23 Time: 2:56 PM * Stephy Leon RPh - 05/12/2023 1:35 AM EDT Pharmacy Note Vancomycin Consult Non-BOWLING OR SKATING FRONT DESK CLERK Anson Capps is a 82 y.o. year old female ordered vancomycin for sepsis; consult from Dr. Monika bai therapy. Patient Active Problem List Diagnosis Date Noted Septic shock (CMS/HCC) (HCC) 05/11/2023 Iron, Oxycodone, Pregabalin, Tetracyclines & related, Amlodipine, and Codeine CREATININE Date Value Ref Range Status 05/11/2023 1.33 (H) 0.52 - 1.04 mg/dL Final UREA NITROGEN Date Value Ref Range Status 05/11/2023 52 (H) 7 - 17 mg/dL Final Auto WBC Date Value Ref Range Status 05/11/2023 18.6 (H) 3.6 - 10.7 10*3/uL Final Ht Readings from Last 1 Encounters: 05/11/23 1.524 m (5') Wt Readings from Last 1 Encounters: 05/11/23 51.7 kg (114 lb) Plan: Will initiate vancomycin 750 mg IV every 24 hours based on predicted AUC of 502 mg/L.hr . Goal AUC is 400-600 mg/L.hr. Random level will be scheduled for 05/12/23 at 0500. Thank you for the consult. Will continue to follow. documented in this [facility]10-16-2023 Note* Care Coordination - Tiny Franco RN - 05/12/2023 11:15 AM EDT Care Managment Initial Assessment Date: 05/12/2023 Patient Name: Anson Capps : 1940 Patient Information Source of Information: Patient Cognition/Language: WFL - Within Functional Limits Permission given to speak with patient credit and collections representative/caregiver as indicated: Yes (Ambreen Dai(Daughter) [phone] or any one of her daughters.) Confirmation of Payer with patient/family: Yes Payer Name: [employer] Medicare : No Confirmation of Primary Care Physician: Confirmed PCP Name: Jamie Schroeder Seen in last 2 years?: Yes Primary Caregiver: Self If assistance needed, confirmed caregiver ready, willing and able to care for patient at discharge:Yes Confirmed with: Patient states daughters help as well as [facility] 2x week. Living Arrangements Current Residence: Apartment Number of Floors 1 Number of Entry Steps: (elevator) Bed/Bath Levels: Both first floor Facility: Facility Name: Plan to Return: Lives with: Alone Support Systems: Children, Friends/neighbors, Home care staff Activities of Daily Living Ambulation: Assistance (cane) Bathing/Dressing: Independent Elimination/Continence/Toileting: Independent Feeding: Independent Who Assists with Activities of Daily Living: Instrumental Activities of Daily Living Prescription Coverage: Yes [facility]. Medication Management: Independent Transportation/Shopping: Assistance Provider Transportation/Shopping Assistance Provider Name: pedro luis Transportation Mode: Car Needs Assistance with Transportation at Discharge: No (one of daughters can transport) Meal Preparation: Independent Laundry/Cleaning: Assistance Provider Laundry/Cleaning Assistance Provider Name: [facility] Finances/Bill Paying: Independent Communication: Independent Types of Care Services/Equipment Utilized Care Services: Passport/Waiver Care Services Provider Name: Patient unsure of name Dialysis Type: NA Durable Medical Equipment: Cane, Walker, Wheelchair (standard or power), Shower Seat, Bedside Commode, Glucometer, Other (Comment) (blood pressure cuff) Patient's Goal/Discharge Plan Patient expects to be discharged to: home Discharge Planning Actions: Continue to follow Patient's Choice Rights and [employer] and Collaborative Relationships Disclosed as Indicated for Post-Acute Care: Interdisciplinary Team Engagement: Social Work Referral for: Additional Information: Spoke with patient at bedside. Introduced self and role. Discharge planning needs discussed. Patient in hospital due to septic shook. Patient on 2 IV antibiotics. Has pending blood cultures, abnormal labs. Patient states she lives alone, is active with waiver, has a DISABILITY CASE MANAGER 2x/week for 3 hours. States her daughters are active and help as needed. She denies any needs at this time. TCC will continue to follow. Tiny Franco RN [facility] [id number] Note* Care Coordination - Tiny Franco RN - 05/12/2023 11:15 AM EDT Care Managment Initial Assessment Date: 05/12/2023 Patient Name: Anson Capps : 1940 Patient Information Source of Information: Patient Cognition/Language: WFL - Within Functional Limits Permission given to speak with patient credit and collections representative/caregiver as indicated: Yes (Ambreen Dai(Daughter) [phone] or any one of her daughters.) Confirmation of Payer with patient/family: Yes Payer Name: [employer] Medicare [place]: No Confirmation of Primary Care Physician: Confirmed PCP Name: Jamie Schroeder Seen in last 2 years?: Yes Primary Caregiver: Self If assistance needed, confirmed caregiver ready, willing and able to care for patient at discharge:Yes Confirmed with: Patient states daughters help as well as DISABILITY CASE MANAGER 2x week. Living Arrangements Current Residence: Apartment Number of Floors 1 Number of Entry Steps: (elevator) Bed/Bath Levels: Both first floor Facility: Facility Name: Plan to Return: Lives with: Alone Support Systems: Children, Friends/neighbors, Home care staff Activities of Daily Living Ambulation: Assistance (cane) Bathing/Dressing: Independent Elimination/Continence/Toileting: Independent Feeding: Independent Who Assists with Activities of Daily Living: Instrumental Activities of Daily Living Prescription Coverage: Yes [facility]. Medication Management: Independent Transportation/Shopping: Assistance Provider Transportation/Shopping Assistance Provider Name: daughters Transportation Mode: Car Needs Assistance with Transportation at Discharge: No (one of daughters can transport) Meal Preparation: Independent Laundry/Cleaning: Assistance Provider Laundry/Cleaning Assistance Provider Name: DISABILITY CASE MANAGER Finances/Bill Paying: Independent Communication: Independent Types of Care Services/Equipment Utilized Care Services: Passport/Waiver Care Services Provider Name: Patient unsure of name Dialysis Type: NA Durable Medical Equipment: Cane, Walker, Wheelchair (standard or power), Shower Seat, Bedside Commode, Glucometer, Other (Comment) (blood pressure cuff) Patient's Goal/Discharge Plan Patient expects to be discharged to: home Discharge Planning Actions: Continue to follow Patient's Choice Rights and [employer] and Collaborative Relationships Disclosed as Indicated for Post-Acute Care: Interdisciplinary Team Engagement: Social Work Referral for: Additional Information: Spoke with patient at bedside. Introduced self and role. Discharge planning needs discussed. Patient in hospital due to septic shook. Patient on 2 IV antibiotics. Has pending blood cultures, abnormal labs. Patient states she lives alone, is active with waiver, has a DISABILITY CASE MANAGER 2x/week for 3 hours. States her daughters are active and help as needed. She denies any needs at this time. TCC will continue to follow. Tiny Franco RN [facility]10-16-2023 History and physical note* Brando Frank MD - 05/12/2023 3:45 AM EDT Images from the original note were not included. History and Physical [facility] Anson Capps : 1940 AGE 82 y.o. YEARS Note Date 05/12/2023 Primary Care Physician:Jamie Schroeder Current Providers as of 05/11/2023 PCP: Jamie Schroeder Referring Provider: not found, starting on FriMay 11, 2023 12:00 AM Admitting Provider: Brando Frank MD, (Active) Attending Provider: Aba Ritter MD, starting on FriMay 11, 2023 4:08 PM, ending on FriMay 12, 2023 1:27 AM (Inactive) Attending Provider: Brando Frank MD, starting on FriMay 11, 2023 8:57 PM (Active) Attending Provider: Yen Phelps MD, starting on FriMay 11, 2023 9:18 PM, ending on FriMay 12, 2023 2:56 AM (Inactive) Registered Nurse: Steffi Eli RN, starting on FriMay 11, 2023 4:06 PM, ending on FriMay 11, 2023 7:30 PM (Inactive) Registered Nurse: Yamilka Pedro RN, starting on FriMay 11, 2023 7:30 PM, ending on FriMay 12, 2023 2:56 AM (Inactive) Registered Nurse: Fior Clifford RN, starting on FriMay 12, 2023 1:25 AM, ending on FriMay 12, 2023 2:58 AM (Inactive) Registered Nurse: Fior Clifford RN, starting on FriMay 12, 2023 3:06 AM (Active) Chief Complaint: Weakness, Gen HPI: She reports she had colonoscopy last week, 2 days after this she started to fell ill She reports she felt a little fatigued had a little bit of malaise at first She is not sure if it is related to a colonoscopy. . She has been having normal bowel movements that have been nonbloody recently slightly constipated Her reason for visiting outside emergency room was development of right flank pain back pain and pain all over her back that happened just when she was walking to the grocery store She denied any syncope. She denied any trauma. But she did have bilateral flank pain that happened all of a sudden She has been urinating every 2 hours for the last week at night which is new for her She does feel tired. She is a little bit short of breath and has a cough but her cough is chronic for her and is not producing a lot of phlegm She denies any other sores or any other sources of infection Review of Systems: General: Skin: HEENT: Cardiovascular Fever n Rashes Difficulty chewing Chest Pain n Chills n Sores Appetite Loss Chest Pressure n Fatigue y Epistaxis Orthopnea n Sweats n Hearing loss Palpitations n GI: Tinnitus GERD n Vision quality RESP: Abdominal Pain n : SOB/[place] yes Nausea n Hematuria n Cough Y chronic Vomiting n Dysuria n Productive/Sputum n Hematemesis n NEURO: Urgency n Hemoptysis n Diarrhea n Headaches n Frequency n Wheezing n Constipation n Seizures n Times at night urinating Every 2 hours For the last week Heamatochezia n Neuropathy In feet catheter present MSK: Melena n Focal weakness n Hesitancy Focal Numbness n Incontinence Acute joint pain n Dizzy/Vertigo n Redness n Difficulty speaking n Heme/Lymph Swelling n Difficulty walking Lymphadenopathy Myalgia n Ataxia Chronic joint pain Left knee and right shoulder Past Medical History: Diagnosis Date Asthma CAD (coronary artery disease) Depression GERD (gastroesophageal reflux disease) Hyperlipidemia Hypertension History reviewed. No pertinent surgical history. Allergies Allergen Reactions Iron Other reaction(s): Hypotension (oral iron is ok) Oxycodone Other reaction(s): Itching Pregabalin Unknown Other reaction(s): Pedal edema, Swelling Tetracyclines & Related Other reaction(s): GI Upset, Nausea Amlodipine Swelling Severe swelling bilateral feet and legs Codeine Other reaction(s): Dizziness, Nausea, Other: See Comments Nausea Medications Prior to Admission: Current Outpatient Medications Medication Instructions albuterol 108 (90 Base) MCG/ACT inhaler 1 puff, Inhalation, Every 4 hours PRN atorvastatin (Lipitor) 40 MG tablet Oral cholecalciferol (Vitamin D-3) 10 MCG (400 UNIT) capsule Oral clonazePAM (KLONOPIN) 0.5 mg, Oral, Daily cloNIDine (CATAPRES) 0.2 mg, Oral, Daily clopidogrel (PLAVIX) 75 mg, Oral, Daily diphenhydrAMINE-acetaminophen (Tylenol PM) 25-500 MG per tablet Oral dulaglutide (Trulicity) 3 MG/0.5ML solution pen-injector SubCUTAneous, Weekly DULoxetine (CYMBALTA) 30 mg, Oral, Daily ferrous gluconate (KP FERROUS GLUCONATE) 324 mg, Oral, Daily with breakfast ipratropium-albuterol (Duo-Neb) 0.5-2.5 mg/3 mL nebulizer solution 3 mL, Inhalation, 4 times daily lisinopril 2.5 mg, Oral, Daily metFORMIN (GLUCOPHAGE) 1,000 mg, Oral, 2 times daily with meals No clonazepam was found on her PDMP Social History Social History Tobacco Use Smoking status: Never Smokeless tobacco: Never Substance Use Topics Alcohol use: Not Currently Family History No family history on file. Physical Exam Temp (24hrs), Av.4 C (97.6 F), Min:36.1 C (96.9 F), Max:36.7 C (98 F) Body mass index is 22.26 kg/m .BMI Classification: Normal Weight (BMI 18.5-24.9) BP 103/73 Pulse 105 Temp 36.1 C (96.9 F) (Temporal) Resp 20 Ht 5' (1.524 m) Wt 114 lb (51.7 kg) SpO2 95% BMI 22.26 kg/m Pulse Ox: SpO2 Av.4 % Min: 92 % Max: 99 % Supplemental O2: General appearance: Alert and oriented not in significant distress HEENT: Normal cephalic, atraumatic without obvious deformity. Pupils equal, round, and reactive to light. Extra ocular muscles intact. Conjunctivae/corneas clear. Neck: Supple, with full range of motion. No jugular venous distention. Trachea midline. No lymphadenopathy. Respiratory: Good air movement bilaterally no crackles or wheezes Cardiovascular: Regular rate and rhythm with normal S1/S2 without murmurs, rubs or gallops. Abdomen: No spinal tenderness. No anterior abdominal tenderness but bilateral CVA tenderness Musculoskeletal: No clubbing, cyanosis or edema bilaterally. Full range of motion without deformity. Skin: Skin color, texture, turgor normal. No rashes or lesions. Neurologic: Neurovascularly intact without any focal sensory/motor deficits. Cranial nerves grosslyintact. Labs Admission on 05/11/2023 Component Date Value Heart Rate 05/11/2023 93 QRSD Interval 05/11/2023 74 QT Interval 05/11/2023 355 QTC Interval 05/11/2023 442 P Thornton 05/11/2023 73 QRS Thornton 05/11/2023 -11 T Wave Thornton 05/11/2023 65 FL Interval 05/11/2023 189 SODIUM 05/11/2023 134 (L) POTASSIUM 05/11/2023 4.6 CHLORIDE 05/11/2023 99 CARBON DIOXIDE 05/11/2023 20 (L) UREA NITROGEN 05/11/2023 52 (H) CREATININE 05/11/2023 1.33 (H) GLUCOSE 05/11/2023 124 (H) CALCIUM 05/11/2023 9.2 ANION GAP 05/11/2023 15 (H) eGFR 05/11/2023 40.5 (L) Auto WBC 05/11/2023 18.6 (H) RBC 05/11/2023 4.55 Hemoglobin 05/11/2023 11.5 (L) Hematocrit 05/11/2023 37.2 MCV 05/11/2023 81.8 MCH 05/11/2023 25.3 (L) MCHC 05/11/2023 30.9 (L) RDW 05/11/2023 17.8 (H) Platelets 05/11/2023 446 (H) MPV 05/11/2023 9.3 Neutrophils Relative 05/11/2023 68.2 Lymphocytes Relative 05/11/2023 20.0 Monocytes Relative 05/11/2023 9.5 Eosinophils Relative 05/11/2023 1.3 Basophils Relative 05/11/2023 0.6 Immature Grans % 05/11/2023 0.4 (H) Neutrophils Absolute 05/11/2023 12.7 (H) Lymphocytes Absolute 05/11/2023 3.7 Monocytes Absolute 05/11/2023 1.8 (H) Eosinophils Absolute 05/11/2023 0.2 Basophils Absolute 05/11/2023 0.1 Immature Grans Absolute 05/11/2023 0.1 (H) TROPONIN I 05/11/2023 <0.012 SARS-CoV-2 05/11/2023 Not Detected Respiratory Syncytial Vi* 05/11/2023 Not Detected Influenza A 05/11/2023 Not Detected Influenza B 05/11/2023 Not Detected Color, Urine 05/11/2023 Yellow Clarity, Urine 05/11/2023 Turbid (A) pH, Urine 05/11/2023 5.0 Leukocytes, Urine 05/11/2023 500 (A) Nitrite, Urine 05/11/2023 Positive (A) Protein, Urine 05/11/2023 20 (A) Glucose, Urine 05/11/2023 Normal Bilirubin, Urine 05/11/2023 Negative Ketones, Urine 05/11/2023 Negative Urobilinogen, Urine 05/11/2023 Normal Blood, Urine 05/11/2023 0.03 (A) Volume, Urine 05/11/2023 12 mL RBC, Urine 05/11/2023 6-10 (A) WBC, Urine 05/11/2023 >100 (A) Squamous Epithelial, Uri* 05/11/2023 6-10 (A) Bacteria, Urine 05/11/2023 Many (A) Mucus, Urine 05/11/2023 Few SPECIFIC GRAVITY OF URIN* 05/11/2023 1.017 LACTIC ACID 05/11/2023 4.7 (HH) TROPONIN I 05/11/2023 <0.012 TROPONIN I 05/11/2023 <0.012 LACTIC ACID 05/11/2023 2.6 (H) LACTIC ACID 05/12/2023 5.5 (HH) EKG Encounter Date: 05/11/23 ECG 12 lead Result Value Heart Rate 93 QRSD Interval 74 QT Interval 355 QTC Interval 442 P Thornton 73 QRS Thornton -11 T Wave Thornton 65 FL Interval 189 Impression Sinus rhythm Low voltage, extremity leads No previous ECG available for comparison Electronically Signed On 05-11-2023 17:18:13 EDT by Aba Ritter Patient recently received an antibiotic (last 12 hours) Date/Time Action Medication Dose Rate 05/11/23 1858 New Bag piperacillin-tazobactam (Zosyn) 4,500 mg in sodium chloride 0.9 % 100 mL IVPB Mini-Bag Plus 4,500 mg 200 mL/hr 05/11/23 1750 Given vancomycin (Vancocin) 1,000 mg in sodium chloride 0.9 % 250 mL IVPB 1,000 mg 166.7 mL/hr Pending Labs Order Current Status Blood culture Site #1 - Suspected Infection In process Blood culture Site #2 - Suspected Infection In process Urine culture In process Assessment/Plan and Medical Decision Making Infectious disease Treating for pyelonephritis She has bilateral flank pain and CVA tenderness with a urinalysis that appears to be infected Sepsis labs drawn Ucx pending Bcx pending Lactic acid 4.7 now improved to 2.6 Her pulse was greater than 93 blood pressure normal respiratory rate normal Due to her known source of infection elevated white blood cell count tachycardia and positive lactic acid she is treated for severe sepsis. She already received her 30 cc/kg bolus at outside emergency room No other source of infection identified at this time yet Covid/rsv/influenza pcr negative Chest x-ray with no acute disease CT of her abdomen pelvis shows constipation with rectal impaction At this time we will treat her with broad-spectrum antibiotics but suspect major source is coming from her urine we will await blood and urine cultures. Vancomycin and Zosyn ordered Trend lactic acid COPD As needed breathing treatments constipation We will Rx as needed suppositories as well as scheduled Senokot It is possible she is constipated this could lead to urinary retention which could lead to urinary tract infection although this is just supposition at this time. She is not known to have urinary retention in the past History of diabetes We will order her Trulicity as she takes now on Sundays weekly in addition she is on metformin at home We will monitor her sugar and check Accu-Cheks And cover with sliding scale -DVT prophylaxis: [x] Lovenox [] Heparin [] SCDs [x] Encourage ambulation [] Already on Anticoagulation [] Pharmocologic prophylaxis on hold to due risk bleed/procedure 05/12/2023 Anson Moore Mohsen [id number] Any scheduled follow up appointments No future appointments. Extended Emergency Contact Information Primary Emergency Contact: Belén Daiy Mobile Relation: Daughter Secondary Emergency Contact: MichaelGabriel Mobile Relation: Daughter Portions of this note may be electronically transcribed. Please forward a copy of this H&P to the primary care physician. [place] Phone: [phone] 304-210010-16-2023 History and physical note* Brando Frank MD - 05/12/2023 3:45 AM EDT Images from the original note were not included. History and Physical [facility] Anson Capps : 1940 AGE 82 y.o. YEARS Note Date 05/12/2023 Primary Care Physician:Jamie Schroeder Current Providers as of 05/11/2023 PCP: Jamie Schroeder Referring Provider: not found, starting on FriMay 11, 2023 12:00 AM Admitting Provider: Brando Frank MD, (Active) Attending Provider: Aba Ritter MD, starting on FriMay 11, 2023 4:08 PM, ending on FriMay 12, 2023 1:27 AM (Inactive) Attending Provider: Brando Frank MD, starting on FriMay 11, 2023 8:57 PM (Active) Attending Provider: Yen Phelps MD, starting on FriMay 11, 2023 9:18 PM, ending on FriMay 12, 2023 2:56 AM (Inactive) Registered Nurse: Steffi Eli RN, starting on FriMay 11, 2023 4:06 PM, ending on FriMay 11, 2023 7:30 PM (Inactive) Registered Nurse: Yamilka Pedro RN, starting on FriMay 11, 2023 7:30 PM, ending on FriMay 12, 2023 2:56 AM (Inactive) Registered Nurse: Fior Clifford RN, starting on FriMay 12, 2023 1:25 AM, ending on FriMay 12, 2023 2:58 AM (Inactive) Registered Nurse: Fior Clifford RN, starting on FriMay 12, 2023 3:06 AM (Active) Chief Complaint: Weakness, Gen HPI: She reports she had colonoscopy last week, 2 days after this she started to fell ill She reports she felt a little fatigued had a little bit of malaise at first She is not sure if it is related to a colonoscopy. . She has been having normal bowel movements that have been nonbloody recently slightly constipated Her reason for visiting outside emergency room was development of right flank pain back pain and pain all over her back that happened just when she was walking to the grocery store She denied any syncope. She denied any trauma. But she did have bilateral flank pain that happened all of a sudden She has been urinating every 2 hours for the last week at night which is new for her She does feel tired. She is a little bit short of breath and has a cough but her cough is chronic for her and is not producing a lot of phlegm She denies any other sores or any other sources of infection Review of Systems: General: Skin: HEENT: Cardiovascular Fever n Rashes Difficulty chewing Chest Pain n Chills n Sores Appetite Loss Chest Pressure n Fatigue y Epistaxis Orthopnea n Sweats n Hearing loss Palpitations n GI: Tinnitus GERD n Vision quality RESP: Abdominal Pain n : SOB/[place] yes Nausea n Hematuria n Cough Y chronic Vomiting n Dysuria n Productive/Sputum n Hematemesis n NEURO: Urgency n Hemoptysis n Diarrhea n Headaches n Frequency n Wheezing n Constipation n Seizures n Times at night urinating Every 2 hours For the last week Heamatochezia n Neuropathy In feet catheter present MSK: Melena n Focal weakness n Hesitancy Focal Numbness n Incontinence Acute joint pain n Dizzy/Vertigo n Redness n Difficulty speaking n Heme/Lymph Swelling n Difficulty walking Lymphadenopathy Myalgia n Ataxia Chronic joint pain Left knee and right shoulder Past Medical History: Diagnosis Date Asthma CAD (coronary artery disease) Depression GERD (gastroesophageal reflux disease) Hyperlipidemia Hypertension History reviewed. No pertinent surgical history. Allergies Allergen Reactions Iron Other reaction(s): Hypotension (oral iron is ok) Oxycodone Other reaction(s): Itching Pregabalin Unknown Other reaction(s): Pedal edema, Swelling Tetracyclines & Related Other reaction(s): GI Upset, Nausea Amlodipine Swelling Severe swelling bilateral feet and legs Codeine Other reaction(s): Dizziness, Nausea, Other: See Comments Nausea Medications Prior to Admission: Current Outpatient Medications Medication Instructions albuterol 108 (90 Base) MCG/ACT inhaler 1 puff, Inhalation, Every 4 hours PRN atorvastatin (Lipitor) 40 MG tablet Oral cholecalciferol (Vitamin D-3) 10 MCG (400 UNIT) capsule Oral clonazePAM (KLONOPIN) 0.5 mg, Oral, Daily cloNIDine (CATAPRES) 0.2 mg, Oral, Daily clopidogrel (PLAVIX) 75 mg, Oral, Daily diphenhydrAMINE-acetaminophen (Tylenol PM) 25-500 MG per tablet Oral dulaglutide (Trulicity) 3 MG/0.5ML solution pen-injector SubCUTAneous, Weekly DULoxetine (CYMBALTA) 30 mg, Oral, Daily ferrous gluconate (KP FERROUS GLUCONATE) 324 mg, Oral, Daily with breakfast ipratropium-albuterol (Duo-Neb) 0.5-2.5 mg/3 mL nebulizer solution 3 mL, Inhalation, 4 times daily lisinopril 2.5 mg, Oral, Daily metFORMIN (GLUCOPHAGE) 1,000 mg, Oral, 2 times daily with meals No clonazepam was found on her PDMP Social History Social History Tobacco Use Smoking status: Never Smokeless tobacco: Never Substance Use Topics Alcohol use: Not Currently Family History No family history on file. Physical Exam Temp (24hrs), Av.4 C (97.6 F), Min:36.1 C (96.9 F), Max:36.7 C (98 F) Body mass index is 22.26 kg/m .BMI Classification: Normal Weight (BMI 18.5-24.9) BP 103/73 Pulse 105 Temp 36.1 C (96.9 F) (Temporal) Resp 20 Ht 5' (1.524 m) Wt 114 lb (51.7 kg) SpO2 95% BMI 22.26 kg/m Pulse Ox: SpO2 Av.4 % Min: 92 % Max: 99 % Supplemental O2: General appearance: Alert and oriented not in significant distress HEENT: Normal cephalic, atraumatic without obvious deformity. Pupils equal, round, and reactive to light. Extra ocular muscles intact. Conjunctivae/corneas clear. Neck: Supple, with full range of motion. No jugular venous distention. Trachea midline. No lymphadenopathy. Respiratory: Good air movement bilaterally no crackles or wheezes Cardiovascular: Regular rate and rhythm with normal S1/S2 without murmurs, rubs or gallops. Abdomen: No spinal tenderness. No anterior abdominal tenderness but bilateral CVA tenderness Musculoskeletal: No clubbing, cyanosis or edema bilaterally. Full range of motion without deformity. Skin: Skin color, texture, turgor normal. No rashes or lesions. Neurologic: Neurovascularly intact without any focal sensory/motor deficits. Cranial nerves grosslyintact. Labs Admission on 05/11/2023 Component Date Value Heart Rate 05/11/2023 93 QRSD Interval 05/11/2023 74 QT Interval 05/11/2023 355 QTC Interval 05/11/2023 442 P Thornton 05/11/2023 73 QRS Thornton 05/11/2023 -11 T Wave Thornton 05/11/2023 65 FL Interval 05/11/2023 189 SODIUM 05/11/2023 134 (L) POTASSIUM 05/11/2023 4.6 CHLORIDE 05/11/2023 99 CARBON DIOXIDE 05/11/2023 20 (L) UREA NITROGEN 05/11/2023 52 (H) CREATININE 05/11/2023 1.33 (H) GLUCOSE 05/11/2023 124 (H) CALCIUM 05/11/2023 9.2 ANION GAP 05/11/2023 15 (H) eGFR 05/11/2023 40.5 (L) Auto WBC 05/11/2023 18.6 (H) RBC 05/11/2023 4.55 Hemoglobin 05/11/2023 11.5 (L) Hematocrit 05/11/2023 37.2 MCV 05/11/2023 81.8 MCH 05/11/2023 25.3 (L) MCHC 05/11/2023 30.9 (L) RDW 05/11/2023 17.8 (H) Platelets 05/11/2023 446 (H) MPV 05/11/2023 9.3 Neutrophils Relative 05/11/2023 68.2 Lymphocytes Relative 05/11/2023 20.0 Monocytes Relative 05/11/2023 9.5 Eosinophils Relative 05/11/2023 1.3 Basophils Relative 05/11/2023 0.6 Immature Grans % 05/11/2023 0.4 (H) Neutrophils Absolute 05/11/2023 12.7 (H) Lymphocytes Absolute 05/11/2023 3.7 Monocytes Absolute 05/11/2023 1.8 (H) Eosinophils Absolute 05/11/2023 0.2 Basophils Absolute 05/11/2023 0.1 Immature Grans Absolute 05/11/2023 0.1 (H) TROPONIN I 05/11/2023 <0.012 SARS-CoV-2 05/11/2023 Not Detected Respiratory Syncytial Vi* 05/11/2023 Not Detected Influenza A 05/11/2023 Not Detected Influenza B 05/11/2023 Not Detected Color, Urine 05/11/2023 Yellow Clarity, Urine 05/11/2023 Turbid (A) pH, Urine 05/11/2023 5.0 Leukocytes, Urine 05/11/2023 500 (A) Nitrite, Urine 05/11/2023 Positive (A) Protein, Urine 05/11/2023 20 (A) Glucose, Urine 05/11/2023 Normal Bilirubin, Urine 05/11/2023 Negative Ketones, Urine 05/11/2023 Negative Urobilinogen, Urine 05/11/2023 Normal Blood, Urine 05/11/2023 0.03 (A) Volume, Urine 05/11/2023 12 mL RBC, Urine 05/11/2023 6-10 (A) WBC, Urine 05/11/2023 >100 (A) Squamous Epithelial, Uri* 05/11/2023 6-10 (A) Bacteria, Urine 05/11/2023 Many (A) Mucus, Urine 05/11/2023 Few SPECIFIC GRAVITY OF URIN* 05/11/2023 1.017 LACTIC ACID 05/11/2023 4.7 (HH) TROPONIN I 05/11/2023 <0.012 TROPONIN I 05/11/2023 <0.012 LACTIC ACID 05/11/2023 2.6 (H) LACTIC ACID 05/12/2023 5.5 (HH) EKG Encounter Date: 05/11/23 ECG 12 lead Result Value Heart Rate 93 QRSD Interval 74 QT Interval 355 QTC Interval 442 P Thornton 73 QRS Thornton -11 T Wave Thornton 65 FL Interval 189 Impression Sinus rhythm Low voltage, extremity leads No previous ECG available for comparison Electronically Signed On 05-11-2023 17:18:13 EDT by Aba Ritter Patient recently received an antibiotic (last 12 hours) Date/Time Action Medication Dose Rate 05/11/23 1858 New Bag piperacillin-tazobactam (Zosyn) 4,500 mg in sodium chloride 0.9 % 100 mL IVPB Mini-Bag Plus 4,500 mg 200 mL/hr 05/11/23 1750 Given vancomycin (Vancocin) 1,000 mg in sodium chloride 0.9 % 250 mL IVPB 1,000 mg 166.7 mL/hr Pending Labs Order Current Status Blood culture Site #1 - Suspected Infection In process Blood culture Site #2 - Suspected Infection In process Urine culture In process Assessment/Plan and Medical Decision Making Infectious disease Treating for pyelonephritis She has bilateral flank pain and CVA tenderness with a urinalysis that appears to be infected Sepsis labs drawn Ucx pending Bcx pending Lactic acid 4.7 now improved to 2.6 Her pulse was greater than 93 blood pressure normal respiratory rate normal Due to her known source of infection elevated white blood cell count tachycardia and positive lactic acid she is treated for severe sepsis. She already received her 30 cc/kg bolus at outside emergency room No other source of infection identified at this time yet Covid/rsv/influenza pcr negative Chest x-ray with no acute disease CT of her abdomen pelvis shows constipation with rectal impaction At this time we will treat her with broad-spectrum antibiotics but suspect major source is coming from her urine we will await blood and urine cultures. Vancomycin and Zosyn ordered Trend lactic acid COPD As needed breathing treatments constipation We will Rx as needed suppositories as well as scheduled Senokot It is possible she is constipated this could lead to urinary retention which could lead to urinary tract infection although this is just supposition at this time. She is not known to have urinary retention in the past History of diabetes We will order her Trulicity as she takes now on Sundays weekly in addition she is on metformin at home We will monitor her sugar and check Accu-Cheks And cover with sliding scale -DVT prophylaxis: [x] Lovenox [] Heparin [] SCDs [x] Encourage ambulation [] Already on Anticoagulation [] Pharmocologic prophylaxis on hold to due risk bleed/procedure 05/12/2023 Anson A Mohsen [id number] Any scheduled follow up appointments No future appointments. Extended Emergency Contact Information Primary Emergency Contact: Ambreen Dai Mobile Relation: Daughter Secondary Emergency Contact: Gabriel Dias Mobile Relation: Daughter Portions of this note may be electronically transcribed. Please forward a copy of this H&P to the primary care physician. documented in this encounterSMiddletown [id number] Emergency department Note* Yamilka Pedro RN - 05/12/2023 2:23 AM EDT Pia from [facility] called with critical lactic acid of 5.5. Yamilka Pedro RN 05/12/23224 [id number] Note* Yamilka Pedro RN - 05/12/2023 2:23 AM EDT Pia from [facility] called with critical lactic acid of 5.5. Yamilka Pedro RN 05/12/23224 * Yamilka Pedro RN - 05/12/2023 1:56 AM EDT Physicians arrived, report given. Pt is stable and will be transported. Yamilka Pedro RN 05/12/23 0156 * Yamilka Pedro RN - 05/12/2023 1:23 AM EDT Report given to Fior FREDERICK on . Yamilka Pedro RN 05/12/23 0124 * Yamilka Pedro RN - 05/11/2023 11:17 PM EDT Pt given enema with success of large bowel movement. Yamilka Pedro RN 05/11/23 2317 * Alisha Riley RN - 05/11/2023 8:54 PM EDT RCC transferred back to MD office with Dr. Frank on the line Alisha Riley RN 05/11/232053 * Steffi Eli RN - 05/11/2023 4:38 PM EDT Radiology to bedside. Steffi Eli RN 05/11/23 1638 * Aba Ritter MD - 05/11/2023 4:03 PM EDT [facility] ED EMERGENCY DEPARTMENT ENCOUNTER Pt Name: Anson Capps Birthdate 1940 Date of evaluation: 05/11/2023 Provider: Aba Ritter MD CHIEF COMPLAINT Chief Complaint Patient presents with Weakness, Gen HISTORY OF PRESENT ILLNESS I wore proper PPE for the entirety of this encounter. Anson Capps is a 82 y.o. female who presents to the emergency department with shortness of breath and generalized weakness that started today. Patient notes that she had a colonoscopy on Friday. She notes no rectal bleeding. Patient notes a history of COPD and has some mild wheezing and seeing aproductive cough. No chest pain. Abdominal pain. No nausea or vomiting. Nursing Notes were reviewed. REVIEW OF SYSTEMS Constitutional: as noted in HPI, and negative for fever/chills Eyes: as noted in HPI, and negative for vision changes ENT: as noted in HPI CV: as noted in HPI, and negative for chest pain, negative for palpitations Resp: as noted in HPI GI: as noted in HPI, and negative for abd pain, negative for n/v/d : as noted in HPI, and negative for urinary symptoms MSK: as noted in HPI, and negative for muscle pain Skin: as noted in HPI, and negative for rash Neuro: as noted in HPI, and negative for headaches, negative for acute focal weakness/numbness PAST MEDICAL HISTORY Past Medical History: Diagnosis Date Asthma CAD (coronary artery disease) Depression GERD (gastroesophageal reflux disease) Hyperlipidemia Hypertension SURGICAL HISTORY History reviewed. No pertinent surgical history. CURRENT MEDICATIONS Previous Medications ALBUTEROL 108 (90 BASE) MCG/ACT INHALER Inhale 1 puff every 4 hours as needed. ATORVASTATIN (LIPITOR) 40 MG TABLET Take by mouth. CHOLECALCIFEROL (VITAMIN D-3) 10 MCG (400 UNIT) CAPSULE Take by mouth. CLONAZEPAM (KLONOPIN) 0.5 MG TABLET Take 0.5 mg by mouth in the morning. CLONIDINE (CATAPRES) 0.2 MG TABLET Take 0.2 mg by mouth in the morning. CLOPIDOGREL (PLAVIX) 75 MG TABLET Take 75 mg by mouth daily. DIPHENHYDRAMINE-ACETAMINOPHEN (TYLENOL PM) 25-500 MG PER TABLET Take by mouth. DULAGLUTIDE (TRULICITY) 3 MG/0.5ML SOLUTION PEN-INJECTOR Inject under the skin 1 (one) time per week. DULOXETINE (CYMBALTA) [address] CAPSULE Take 30 mg by mouth daily. FERROUS GLUCONATE ( FERROUS GLUCONATE) 324 (37.5 FE) MG TABLET Take 324 mg by mouth daily (with breakfast). IPRATROPIUM-ALBUTEROL (DUO-NEB) 0.5-2.5 MG/3 ML NEBULIZER SOLUTION Inhale 3 mL in the morning and 3mL at noon and 3 mL in the evening and 3 mL before bedtime. LISINOPRIL 2.5 MG TABLET Take 2.5 mg by mouth daily. METFORMIN (GLUCOPHAGE) 500 MG TABLET Take 1,000 mg by mouth in the morning and 1,000 mg in the evening. Take with meals. ALLERGIES Iron, Oxycodone, Pregabalin, Tetracyclines & related, Amlodipine, and Codeine FAMILY HISTORY No family history on file. SOCIAL HISTORY Social History Socioeconomic History Marital status: Tobacco Use Smoking status: Never Smokeless tobacco: Never Substance and Sexual Activity Alcohol use: Not Currently Drug use: Never SCREENINGS [place] Coma Scale Best Eye Response: Spontaneous Best Verbal Response: Oriented Best Motor Response: Follows commands [place] Coma Scale Score: 15 PHYSICAL EXAM (up to 7 for level 4, 8 or more for level 5) ED Triage Vitals [05/11/23 1615] Temp Heart Rate Resp BP 36.7 C (98 F) 93 18 114/65 SpO2 Temp Source Heart Rate Source Patient Position 98 % Oral Monitor Lying BP Location FiO2 (%) Right arm -- Constitutional: No acute distress HEENT:Head: Atraumatic/normocephalic Eyes: Conjunctivae normal. ENT: Mucous membranes moist. CV: RRR RESP: Faint expiratory wheezing, good respiratory effort, no increased wob GI: Abdomen soft, non-tender, non-distended, +BS, no guarding or rebound tenderness MSK: Normal bulk and tone, no gross deformity EXTR: Warm and well perfused, no edema SKIN: No rash/bruising/erythema PSYCH: Appropriate affect, cooperative behavior NEURO: Alert and oriented x 3, face symmetric, no slurred speech, CN2-12 intact, motor and sensory intact and equal bilaterally. DIAGNOSTIC RESULTS Interpretation per the Radiologist below, if available at the time of this note: XR chest 1 view Final Result Chronic findings. No acute pulmonary process. Report Dictated on Electronically Signed By: Ludmila Watson MD Electronically Signed Date/Time: 05/11/2023 4:[address] abdomen pelvis wo IV contrast (Results Pending) LABS: Labs Reviewed BASIC METABOLIC PANEL - Abnormal Result Value SODIUM 134 (*) POTASSIUM 4.6 CHLORIDE 99 CARBON DIOXIDE 20 (*) UREA NITROGEN 52 (*) CREATININE 1.33 (*) GLUCOSE 124 (*) CALCIUM 9.2 ANION GAP 15 (*) eGFR 40.5 (*) CBC WITH AUTO DIFFERENTIAL - Abnormal Auto WBC 18.6 (*) RBC 4.55 Hemoglobin 11.5 (*) Hematocrit 37.2 MCV 81.8 MCH 25.3 (*) MCHC 30.9 (*) RDW 17.8 (*) Platelets 446 (*) MPV 9.3 Neutrophils Relative 68.2 Lymphocytes Relative 20.0 Monocytes Relative 9.5 Eosinophils Relative 1.3 Basophils Relative 0.6 Immature Grans % 0.4 (*) Neutrophils Absolute 12.7 (*) Lymphocytes Absolute 3.7 Monocytes Absolute 1.8 (*) Eosinophils Absolute 0.2 Basophils Absolute 0.1 Immature Grans Absolute 0.1 (*) Narrative: Slight Anisocytosis Slight Hypochromia COMPLETE URINALYSIS - Abnormal Color, Urine Yellow Clarity, Urine Turbid (*) pH, Urine 5.0 Leukocytes, Urine 500 (*) Nitrite, Urine Positive (*) Protein, Urine 20 (*) Glucose, Urine Normal Bilirubin, Urine Negative Ketones, Urine Negative Urobilinogen, Urine Normal Blood, Urine 0.03 (*) Volume, Urine 12 mL RBC, Urine 6-10 (*) WBC, Urine >100 (*) Squamous Epithelial, Urine 6-10 (*) Bacteria, Urine Many (*) Mucus, Urine Few SPECIFIC GRAVITY OF URINE (NUMERIC) 1.017 LACTIC ACID WITH REFLEX - Abnormal LACTIC ACID 4.7 (*) SARS-COV-2, FLU A/B, AND RSV COMBO - Normal SARS-CoV-2 Not Detected Respiratory Syncytial Virus Not Detected Influenza A Not Detected Influenza B Not Detected Narrative: Methodology: real-time, RT-PCR The SARS-CoV-2, Flu A/B, and RSV Combo assay is intended for in vitro diagnostic use under the FDA Emergency Use Authorization (EUA). This test has not been FDA cleared or approved. In compliance with this authorization, please visit www.fda.gov/media/023420/download or www.fda.gov/media/354500/download to access the applicable information sheets. TROPONIN, WITH SERIAL REFLEX - Normal TROPONIN I <0.012 Narrative: Patients with high levels of Biotin oral intake (ie >5 mg/day) may have falsely decreased Troponin levels. BLOOD CULTURE BLOOD CULTURE URINE CULTURE COMPLETE URINALYSIS WITH REFLEX TO CULTURE Narrative: The following orders were created for panel order Urinalysis complete with reflex to Culture. Procedure Abnormality Status --------- ------ Complete Urinalysis[[id number]] Abnormal Final result Please view results for these tests on the individual orders. TROPONIN I TROPONIN I LACTIC ACID WITH REFLEX EMERGENCY DEPARTMENT COURSE and DIFFERENTIAL DIAGNOSIS/MDM: Vitals: Vitals: 05/11/23 1615 05/11/23 1708 05/11/23 1748 05/11/231838 BP: 114/65 108/56 105/52 (!) 141/73 BP Location: Right arm Right arm Patient Position: Lying Sitting Pulse: 93 91 92 99 Resp: 18 18 16 16 Temp: 36.7 C (98 F) 36.6 C (97.8 F) TempSrc: Oral Oral SpO2: 98% 97% 98% 99% Weight: 51.7 kg (114 lb) Height: 1.524 m (5') Medications vancomycin (Vancocin) 1,000 mg in sodium chloride 0.9 % 250 mL IVPB (has no administration in time range) piperacillin-tazobactam (Zosyn) 4,500 mg in sodium chloride 0.9 % 100 mL IVPB Mini-Bag Plus (4,500 mg IntraVENous New Bag 05/11/23 1858) sodium chloride 0.9 % bolus 600 mL (has no administration in time range) predniSONE (Deltasone) tablet 60 mg (60 mg Oral Given 05/11/23 163) ipratropium-albuterol (Duo-Neb) 0.5-2.5 mg/3 mL nebulizer solution 3 mL (3 mL Nebulization Given 05/11/23 163) sodium chloride 0.9 % bolus 1,000 mL (0 mL IntraVENous Stopped 05/11/23 183) I personally saw the patient and performed a substantive portion of the visit including all aspectsof the medical decision making. Patient appears nontoxic and vital signs are normal. Slight expiratory wheezing. Given prednisone p.o. and DuoNeb for mild COPD exacerbation. Patient found to have urosepsis. Significant leukocytosis of 18.6. Lactic acid 4.7 initially. Patient given slightly more than 30 mill per kilo IV fluids, IV vancomycin and IV Zosyn. Troponin is negative. BMP shows mild acute kidney injury with creatinine 1.33. Test negative for COVID-19. CTAP showed a fecal impaction. Soap suds enema ordered. She requested to be admitted at [facility]. I requested that they be called. Signed out to oncoming provider. ED Course as of 05/11/232055 Sun May 11, 2023 170 Basic metabolic panel(!) Slightly increased creatinine and BUN with no prior. Likely acute kidney injury. [SHY] 1707 CBC auto differential(!) Leukocytosis of 18.6. No prior. [SHY] 1715 COVID-19, Flu A/B, and RSV Combo Negative [SHY] 1716 XR chest 1 view No effusions, opacities, pneumothorax, pneumonia, heart failure with volume overload/pulmonary edema, displaced rib fracture, or large masses on my interpretation. No acute abnormalities on radiologist's final interpretation. [SHY] 1747 LACTIC ACID(!!): 4.7 Moderately elevated [SHY] 1752 Urinalysis complete with reflex to Culture(!) UTI. Sepsis identified at this time. Abx already ordered. [SHY] ED Course User Index [SHY] Aba Ritter MD Diagnoses as of 05/11/232055 Sepsis, due to unspecified organism, unspecified whether acute organ dysfunction present (HCC) Urinary tract infection without hematuria, site unspecified Septic shock ([facility]/HCC) (HCC) PROCEDURES: Unless otherwise noted below, none Procedures Patients symptoms are consistent with sepsis, severe sepsis, or septic shock (If yes use .sepsiscoremeasure): SEP- CORE MEASURE DATA SIRS Criteria Sepsis Criteria Severe Sepsis Criteria Septic Shock Criteria Must meet 2: [] Temperature > 100.4 F (38 C) or < 96.8 F (36 C) [x] HR > 90 [] RR > 20 [x] WBC > 12 or < 4 or 10% bands Must be confirmed or suspected to move forward with diagnosis of sepsis. [x] Infection Confirmed or Suspected. [] No infection present. Patient does not meet criteria for Sepsis. Must meet 1: [x] Lactate > 2 or [] Signs of Organ Dysfunction: - SBP < 90 or MAP < 65 - Altered mental status - Creatinine > 2 or increased from baseline - Urine Output < 0.5 ml/kg/hr - Bilirubin > 2 - INR > 1.5 - Platelets < 100,000 - Acute Respiratory Failure as evidenced by new need for NIPPV or mechanical ventilation [] No criteria met for Severe Sepsis. Must meet 1: [x] Lactate = or > 4 or [] SBP < 90 or MAP < 65 for at least two readings in the first hour after fluid bolus administration [] No criteria met for Septic Shock. No data found. Recent Labs 05/11/23 1630 05/11/23 1722 WBC 18.6* -- LACTATE -- 4.7* CREATININE 1.33* -- PLT 446* -- Sepsis Identified at [id number]. Fluid Resuscitation Rational: at least 30mL/kg based on entered actual body weight at time of triage Infection Source: Urinary System Reassessment Exam: I examined the patient 05/11/2023 7:07 PM Vital Signs:BP (!) 141/73 Pulse 99 Temp 36.6 C (97.8 F) (Oral) Resp 16 Ht 1.524 m (5') Wt51.7 kg (114 lb) SpO2 99% BMI 22.26 kg/m Cardiac examination significant for: Regular rate and rhythm Pulmonary examination significant for: Wheezing Capillary refill is: brisk Peripheral Pulse is: 1+ Skin is: Normal Aba Ritter MD I personally (separate from BONY or resident) spent a total of 39 minutes of critical care time in obtaining history, performing a physical exam, bedside monitoring of interventions, collecting and interpreting tests, and discussion with consultants but not including time spent performing procedures. FINAL IMPRESSION 1. Sepsis, due to unspecified organism, unspecified whether acute organ dysfunction present (HCC) 2. Urinary tract infection without hematuria, site unspecified DISPOSITION/PLAN PATIENT REFERRED TO: No follow-up provider specified. DISCHARGE MEDICATIONS: New Prescriptions No medications on file (Please note: Portions of this note were completed with a voice recognition program. Efforts were made to edit the dictations but occasionally words and phrases are mis-transcribed.) MD JNUE KendrickA Emergency Medicine Physician [facility] ([facility] Aba Ritter MD 05/11/231906 Aba Ritter MD 05/11/231956 * Yen Phelps MD - 05/11/2023 4:03 PM EDT I received signout from Dr. Ritter at 8 PM. Patient is pending admission to [facility]. I will call report. I spoke with Dr. Frank with internal medicine at 8:55 PM. I discussed full details of the case with him. He accepts patient for admission. Of note, though she has an elevated lactate, she is on metformin which could be the explanation for this. Though we are treating for septic shock, she may more likely be in severe sepsis. Yen Phelps MD 05/11/232057 * Steffi Eli RN - 05/11/2023 4:03 PM EDT Patient presents to ED with complaints of weakness since colonoscopy on Friday. She states she was shopping with her daughter prior to arrival and when walking out had some pain in her neck and back so they came to ER for evaluation. Pt denies pain now. She is alert, sitting up in bed with daughterat bedside. She is in no acute distress. documented in this [facility]10-16-2023 Emergency department Note* Yamilka Pedro RN - 05/12/2023 1:56 AM EDT Physicians arrived, report given. Pt is stable and will be transported. 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 year old female ordered vancomycin for sepsis; consult from Dr. Monika loyd. Patient Active Problem List Diagnosis Date Noted Septic shock (CMS/HCC) (HCC) 05/11/2023 Iron, Oxycodone, Pregabalin, Tetracyclines & related, Amlodipine, and Codeine CREATININE Date Value Ref Range Status 05/11/2023 1.33 (H) 0.52 - 1.04 mg/dL Final UREA NITROGEN Date Value Ref Range Status 05/11/2023 52 (H) 7 - 17 mg/dL Final Auto WBC Date Value Ref Range Status 05/11/2023 18.6 (H) 3.6 - 10.7 10*3/uL Final Ht Readings from Last 1 Encounters: 05/11/23 1.524 m (5') Wt Readings from Last 1 Encounters: 05/11/23 51.7 kg (114 lb) Plan: Will initiate vancomycin 750 mg IV every 24 hours based on predicted AUC of 502 mg/L.hr . Goal AUC is 400-600 mg/L.hr. Random level will be scheduled for 05/12/23 at 0500. Thank you for the consult. Will continue to follow. [id number] Emergency department Note* Yamilka Pedro RN - 05/12/2023 1:23 AM EDT Report given to Fior FREDERICK on . Yamilka Pedro RN 05/12/23 5284 [id number] Emergency department Note* Yamilka Pedro RN - 05/11/2023 11:17 PM EDT Pt given enema with success of large bowel movement. Yamilka Pedro RN 05/11/23 9844 [place] [id number] Emergency department Note* Alisha Riley RN - 05/11/2023 8:54 PM EDT RCC transferred back to MD office with Dr. Frank on the line Alisha Riley RN 05/11/232053 [place] [id number] Emergency department Note* Steffi Eli RN - 05/11/2023 4:38 PM EDT Radiology to bedside. Steffi Eli RN 05/11/23 1638 [facility] [id number] Emergency department Triage note* Steffi Marroquin RN - 05/11/2023 4:03 PM EDT Patient presents to ED with complaints of weakness since colonoscopy on Friday. She states she was shopping with her daughter prior to arrival and when walking out had some pain in her neck and back so they came to ER for evaluation. Pt denies pain now. She is alert, sitting up in bed with daughterat bedside. She is in no acute distress. [facility] [id number] Physician Emergency department Note* Aba Ritter MD - 05/11/2023 4:03 PM EDT [facility] ED EMERGENCY DEPARTMENT ENCOUNTER Pt Name: Anson Capps Birthdate 1940 Date of evaluation: 05/11/2023 Provider: Aba Ritter MD CHIEF COMPLAINT Chief Complaint Patient presents with Weakness, Gen HISTORY OF PRESENT ILLNESS I wore proper PPE for the entirety of this encounter. Anson Capps is a 82 y.o. female who presents to the emergency department with shortness of breath and generalized weakness that started today. Patient notes that she had a colonoscopy on Friday. She notes no rectal bleeding. Patient notes a history of COPD and has some mild wheezing and seeing aproductive cough. No chest pain. Abdominal pain. No nausea or vomiting. Nursing Notes were reviewed. REVIEW OF SYSTEMS Constitutional: as noted in HPI, and negative for fever/chills Eyes: as noted in HPI, and negative for vision changes ENT: as noted in HPI CV: as noted in HPI, and negative for chest pain, negative for palpitations Resp: as noted in HPI GI: as noted in HPI, and negative for abd pain, negative for n/v/d : as noted in HPI, and negative for urinary symptoms MSK: as noted in HPI, and negative for muscle pain Skin: as noted in HPI, and negative for rash Neuro: as noted in HPI, and negative for headaches, negative for acute focal weakness/numbness PAST MEDICAL HISTORY Past Medical History: Diagnosis Date Asthma CAD (coronary artery disease) Depression GERD (gastroesophageal reflux disease) Hyperlipidemia Hypertension SURGICAL HISTORY History reviewed. No pertinent surgical history. CURRENT MEDICATIONS Previous Medications ALBUTEROL 108 (90 BASE) MCG/ACT INHALER Inhale 1 puff every 4 hours as needed. ATORVASTATIN (LIPITOR) 40 MG TABLET Take by mouth. CHOLECALCIFEROL (VITAMIN D-3) 10 MCG (400 UNIT) CAPSULE Take by mouth. CLONAZEPAM (KLONOPIN) 0.5 MG TABLET Take 0.5 mg by mouth in the morning. CLONIDINE (CATAPRES) 0.2 MG TABLET Take 0.2 mg by mouth in the morning. CLOPIDOGREL (PLAVIX) 75 MG TABLET Take 75 mg by mouth daily. DIPHENHYDRAMINE-ACETAMINOPHEN (TYLENOL PM) 25-500 MG PER TABLET Take by mouth. DULAGLUTIDE (TRULICITY) 3 MG/0.5ML SOLUTION PEN-INJECTOR Inject under the skin 1 (one) time per week. DULOXETINE (CYMBALTA) [address] CAPSULE Take 30 mg by mouth daily. FERROUS GLUCONATE ( FERROUS GLUCONATE) 324 (37.5 FE) MG TABLET Take 324 mg by mouth daily (with breakfast). IPRATROPIUM-ALBUTEROL (DUO-NEB) 0.5-2.5 MG/3 ML NEBULIZER SOLUTION Inhale 3 mL in the morning and 3mL at noon and 3 mL in the evening and 3 mL before bedtime. LISINOPRIL 2.5 MG TABLET Take 2.5 mg by mouth daily. METFORMIN (GLUCOPHAGE) 500 MG TABLET Take 1,000 mg by mouth in the morning and 1,000 mg in the evening. Take with meals. ALLERGIES Iron, Oxycodone, Pregabalin, Tetracyclines & related, Amlodipine, and Codeine FAMILY HISTORY No family history on file. SOCIAL HISTORY Social History Socioeconomic History Marital status: Tobacco Use Smoking status: Never Smokeless tobacco: Never Substance and Sexual Activity Alcohol use: Not Currently Drug use: Never SCREENINGS [place] Coma Scale Best Eye Response: Spontaneous Best Verbal Response: Oriented Best Motor Response: Follows commands [place] Coma Scale Score: 15 PHYSICAL EXAM (up to 7 for level 4, 8 or more for level 5) ED Triage Vitals [05/11/23 1615] Temp Heart Rate Resp BP 36.7 C (98 F) 93 18 114/65 SpO2 Temp Source Heart Rate Source Patient Position 98 % Oral Monitor Lying BP Location FiO2 (%) Right arm -- Constitutional: No acute distress HEENT:Head: Atraumatic/normocephalic Eyes: Conjunctivae normal. ENT: Mucous membranes moist. CV: RRR RESP: Faint expiratory wheezing, good respiratory effort, no increased wob GI: Abdomen soft, non-tender, non-distended, +BS, no guarding or rebound tenderness MSK: Normal bulk and tone, no gross deformity EXTR: Warm and well perfused, no edema SKIN: No rash/bruising/erythema PSYCH: Appropriate affect, cooperative behavior NEURO: Alert and oriented x 3, face symmetric, no slurred speech, CN2-12 intact, motor and sensory intact and equal bilaterally. DIAGNOSTIC RESULTS Interpretation per the Radiologist below, if available at the time of this note: XR chest 1 view Final Result Chronic findings. No acute pulmonary process. Report Dictated on Electronically Signed By: Ludmila Watson MD Electronically Signed Date/Time: 05/11/2023 4:[address] abdomen pelvis wo IV contrast (Results Pending) LABS: Labs Reviewed BASIC METABOLIC PANEL - Abnormal Result Value SODIUM 134 (*) POTASSIUM 4.6 CHLORIDE 99 CARBON DIOXIDE 20 (*) UREA NITROGEN 52 (*) CREATININE 1.33 (*) GLUCOSE 124 (*) CALCIUM 9.2 ANION GAP 15 (*) eGFR 40.5 (*) CBC WITH AUTO DIFFERENTIAL - Abnormal Auto WBC 18.6 (*) RBC 4.55 Hemoglobin 11.5 (*) Hematocrit 37.2 MCV 81.8 MCH 25.3 (*) MCHC 30.9 (*) RDW 17.8 (*) Platelets 446 (*) MPV 9.3 Neutrophils Relative 68.2 Lymphocytes Relative 20.0 Monocytes Relative 9.5 Eosinophils Relative 1.3 Basophils Relative 0.6 Immature Grans % 0.4 (*) Neutrophils Absolute 12.7 (*) Lymphocytes Absolute 3.7 Monocytes Absolute 1.8 (*) Eosinophils Absolute 0.2 Basophils Absolute 0.1 Immature Grans Absolute 0.1 (*) Narrative: Slight Anisocytosis Slight Hypochromia COMPLETE URINALYSIS - Abnormal Color, Urine Yellow Clarity, Urine Turbid (*) pH, Urine 5.0 Leukocytes, Urine 500 (*) Nitrite, Urine Positive (*) Protein, Urine 20 (*) Glucose, Urine Normal Bilirubin, Urine Negative Ketones, Urine Negative Urobilinogen, Urine Normal Blood, Urine 0.03 (*) Volume, Urine 12 mL RBC, Urine 6-10 (*) WBC, Urine >100 (*) Squamous Epithelial, Urine 6-10 (*) Bacteria, Urine Many (*) Mucus, Urine Few SPECIFIC GRAVITY OF URINE (NUMERIC) 1.017 LACTIC ACID WITH REFLEX - Abnormal LACTIC ACID 4.7 (*) SARS-COV-2, FLU A/B, AND RSV COMBO - Normal SARS-CoV-2 Not Detected Respiratory Syncytial Virus Not Detected Influenza A Not Detected Influenza B Not Detected Narrative: Methodology: real-time, RT-PCR The SARS-CoV-2, Flu A/B, and RSV Combo assay is intended for in vitro diagnostic use under the FDA Emergency Use Authorization (EUA). This test has not been FDA cleared or approved. In compliance with this authorization, please visit www.fda.gov/media/447937/download or www.fda.gov/media/666791/download to access the applicable information sheets. TROPONIN, WITH SERIAL REFLEX - Normal TROPONIN I <0.012 Narrative: Patients with high levels of Biotin oral intake (ie >5 mg/day) may have falsely decreased Troponin levels. BLOOD CULTURE BLOOD CULTURE URINE CULTURE COMPLETE URINALYSIS WITH REFLEX TO CULTURE Narrative: The following orders were created for panel order Urinalysis complete with reflex to Culture. Procedure Abnormality Status --------- ------ Complete Urinalysis[[id number]] Abnormal Final result Please view results for these tests on the individual orders. TROPONIN I TROPONIN I LACTIC ACID WITH REFLEX EMERGENCY DEPARTMENT COURSE and DIFFERENTIAL DIAGNOSIS/MDM: Vitals: Vitals: 05/11/23 1615 05/11/23 1708 05/11/23 1748 05/11/23 1839 BP: 114/65 108/56 105/52 (!) 141/73 BP Location: Right arm Right arm Patient Position: Lying Sitting Pulse: 93 91 92 99 Resp: 18 18 16 16 Temp: 36.7 C (98 F) 36.6 C (97.8 F) TempSrc: Oral Oral SpO2: 98% 97% 98% 99% Weight: 51.7 kg (114 lb) Height: 1.524 m (5') Medications vancomycin (Vancocin) 1,000 mg in sodium chloride 0.9 % 250 mL IVPB (has no administration in time range) piperacillin-tazobactam (Zosyn) 4,500 mg in sodium chloride 0.9 % 100 mL IVPB Mini-Bag Plus (4,500 mg IntraVENous New Bag 05/11/23 185) sodium chloride 0.9 % bolus 600 mL (has no administration in time range) predniSONE (Deltasone) tablet 60 mg (60 mg Oral Given 05/11/23 163) ipratropium-albuterol (Duo-Neb) 0.5-2.5 mg/3 mL nebulizer solution 3 mL (3 mL Nebulization Given 05/11/231634) sodium chloride 0.9 % bolus 1,000 mL (0 mL IntraVENous Stopped 05/11/231834) I personally saw the patient and performed a substantive portion of the visit including all aspectsof the medical decision making. Patient appears nontoxic and vital signs are normal. Slight expiratory wheezing. Given prednisone p.o. and DuoNeb for mild COPD exacerbation. Patient found to have urosepsis. Significant leukocytosis of 18.6. Lactic acid 4.7 initially. Patient given slightly more than 30 mill per kilo IV fluids, IV vancomycin and IV Zosyn. Troponin is negative. BMP shows mild acute kidney injury with creatinine 1.33. Test negative for COVID-19. CTAP showed a fecal impaction. Soap suds enema ordered. She requested to be admitted at [facility]. I requested that they be called. Signed out to oncoming provider. ED Course as of 05/11/232055 Sun May 11, 2023 1707 Basic metabolic panel(!) Slightly increased creatinine and BUN with no prior. Likely acute kidney injury. [SHY] 1707 CBC auto differential(!) Leukocytosis of 18.6. No prior. [SHY] 1715 COVID-19, Flu A/B, and RSV Combo Negative [SHY] 1716 XR chest 1 view No effusions, opacities, pneumothorax, pneumonia, heart failure with volume overload/pulmonary edema, displaced rib fracture, or large masses on my interpretation. No acute abnormalities on radiologist's final interpretation. [SHY] 1747 LACTIC ACID(!!): 4.7 Moderately elevated [SHY] 1752 Urinalysis complete with reflex to Culture(!) UTI. Sepsis identified at this time. Abx already ordered. [SHY] ED Course User Index [SHY] Aba Ritter MD Diagnoses as of 05/11/232055 Sepsis, due to unspecified organism, unspecified whether acute organ dysfunction present (HCC) Urinary tract infection without hematuria, site unspecified Septic shock ([facility]/HCC) (HCC) PROCEDURES: Unless otherwise noted below, none Procedures Patients symptoms are consistent with sepsis, severe sepsis, or septic shock (If yes use .sepsiscoremeasure): SEP- CORE MEASURE DATA SIRS Criteria Sepsis Criteria Severe Sepsis Criteria Septic Shock Criteria Must meet 2: [] Temperature > 100.4 F (38 C) or < 96.8 F (36 C) [x] HR > 90 [] RR > 20 [x] WBC > 12 or < 4 or 10% bands Must be confirmed or suspected to move forward with diagnosis of sepsis. [x] Infection Confirmed or Suspected. [] No infection present. Patient does not meet criteria for Sepsis. Must meet 1: [x] Lactate > 2 or [] Signs of Organ Dysfunction: - SBP < 90 or MAP < 65 - Altered mental status - Creatinine > 2 or increased from baseline - Urine Output < 0.5 ml/kg/hr - Bilirubin > 2 - INR > 1.5 - Platelets < 100,000 - Acute Respiratory Failure as evidenced by new need for NIPPV or mechanical ventilation [] No criteria met for Severe Sepsis. Must meet 1: [x] Lactate = or > 4 or [] SBP < 90 or MAP < 65 for at least two readings in the first hour after fluid bolus administration [] No criteria met for Septic Shock. No data found. Recent Labs 05/11/23 1630 05/11/23 1722 WBC 18.6* -- LACTATE -- 4.7* CREATININE 1.33* -- PLT 446* -- Sepsis Identified at 1752. Fluid Resuscitation Rational: at least 30mL/kg based on entered actual body weight at time of triage Infection Source: Urinary System Reassessment Exam: I examined the patient 05/11/2023 7:07 PM Vital Signs:BP (!) 141/73 Pulse 99 Temp 36.6 C (97.8 F) (Oral) Resp 16 Ht 1.524 m (5') Wt51.7 kg (114 lb) SpO2 99% BMI 22.26 kg/m Cardiac examination significant for: Regular rate and rhythm Pulmonary examination significant for: Wheezing Capillary refill is: brisk Peripheral Pulse is: 1+ Skin is: Normal Aba Ritter MD I personally (separate from BONY or resident) spent a total of 39 minutes of critical care time in obtaining history, performing a physical exam, bedside monitoring of interventions, collecting and interpreting tests, and discussion with consultants but not including time spent performing procedures. FINAL IMPRESSION 1. Sepsis, due to unspecified organism, unspecified whether acute organ dysfunction present (HCC) 2. Urinary tract infection without hematuria, site unspecified DISPOSITION/PLAN PATIENT REFERRED TO: No follow-up provider specified. DISCHARGE MEDICATIONS: New Prescriptions No medications on file (Please note: Portions of this note were completed with a voice recognition program. Efforts were made to edit the dictations but occasionally words and phrases are mis-transcribed.) Aba Ritter MD SKYLER Emergency Medicine Physician [facility] ([facility]) Aba Ritter MD 05/11/231906 Aba Ritter MD 05/11/231956 [id number] Emergency department Note* Yen Phelps MD - 05/11/2023 4:03 PM EDT I received signout from Dr. Ritter at 8 PM. Patient is pending admission to [facility]. I will call report. I spoke with Dr. Frank with internal medicine at 8:55 PM. I discussed full details of the case with him. He accepts patient for admission. Of note, though she has an elevated lactate, she is on metformin which could be the explanation for this. Though we are treating for septic shock, she may more likely be in severe sepsis. Yen Phelps MD 05/11/232057 [id number] Note. MICRO - Microbiology PROCEDURE: Urine Culture [*1] SOURCE: Urine, Clean Catch BODY SITE: COLLECTED DATE/TIME: 04/09/2023 15:17 EDT RECEIVED DATE/TIME: 04/09/2023 19:32 EDT START DATE/TIME: 04/09/2023 19:33 EDT FREE TEXT SOURCE: FINAL REPORTS Final Report [] Verified Date/Time/Personnel: 04/11/2023 07:51 EDT >100,000 cfu/ml Escherichia coli PRELIMINARY REPORTS Preliminary Report [] Verified Date/Time/Personnel: 04/10/2023 10:44 EDT >100,000 cfu/ml Escherichia coli ADENIKE to follow SUSCEPTIBILITY RESULTS Escherichia coli Antibiotic ADENIKE Dilut ADENIKE Inter Ampicillin <=8 Susceptible Ampicillin/ <=4/2 Susceptible Sulbactam Aztreonam <=4 Susceptible Cefazolin <=2 Susceptible Ciprofloxacin >2 Resistant Ertapenem <=0.5 Susceptible Gentamicin <=2 Susceptible Imipenem <=1 Susceptible Levofloxacin >4 Resistant Meropenem <=1 Susceptible Minocycline <=4 Susceptible Nitrofurantoin <=32 Susceptible Trimethoprim/ >2/38 Resistant Sulfa Performing Locations *1: This test was performed at: [facility], [address] [place] [address], [id number] , [facility] ([place])09-07-2020 NotePatient Outreach (COVAMN) ANSON CAPPS ([id number]) 1940 F Date Time Provider Department 09/07/20 IWONA DOOLEY During your visit today, we recorded the following information about you: Allergies As of Date: 09/07/2020 Noted Allergy Reaction AMLODIPINE 06/19/2015 7 - Swelling Comments: Severe swelling bilateral feet and legs CODEINE 06/19/2015 14 - Other: See Comments Comments: Nausea GABAPENTIN 06/19/2015 7 - Swelling Comments: Severe swelling bilateral feet LYRICA (PREGABALIN) 03/17/2019 16 - Unknown PERCOCET (OXYCODONE-ACETAMINOPHEN)03/17/2019 16 - Unknown TETRACYCLINE 06/19/2015 8 - GI Upset Date Reviewed: 08/05/2019 Reviewed by: Rody Tamayo - Fully Assessed Order(s):SARS-COVID VACCINE 1ST DOSE APPT [[id number]] Order #: [id number] FUTURE Prescriptions as of 09/07/2020 Sig: PREDNISONE 10 MG TABLETS IN A* Take by mouth once daily. DULAGLUTIDE 0.75 MG/0.5 ML SALCIDO* Inject 0.75 mg subcutaneously* FERROUS GLUCONATE 324 MG (37.* Take 324 mg by mouth daily wi* CLOPIDOGREL 75 MG TABLET Take 75 mg by mouth once candice* PANTOPRAZOLE 40 MG TABLET,DEL* Take 40 mg by mouth once candice* SIMVASTATIN 20 MG TABLET Take 20 mg by mouth daily at * CLONAZEPAM 0.5 MG TABLET Take 0.5 mg by mouth once rae* DULOXETINE 30 MG CAPSULE,JOELLEN* Take 1 capsule by mouth once * FLUTICASONE 250 MCG-SALMETERO* Inhale 2 Puffs as instructed * ALBUTEROL SULFATE HFA 90 MCG/* Inhale 1 Puff as instructed e* IPRATROPIUM 0.5 MG-ALBUTEROL * Inhale 3 mL as instructed fou* CLONIDINE HCL ORAL Take 0.2 mg by mouth once rae* METFORMIN 500 MG TABLET Take 1,000 mg by mouth twice * Problem List As Of Date 09/07/2020 Noted Resolved Diabetic autonomic neuropathy associated with t*06/19/2015 Spinal stenosis, lumbar region, without neuroge*06/19/2015 H/O: upper GI bleed [Z87.19] 03/24/2016 Letter Text Encounter Status:Closed by EPIC, PRODUSER on 09/11/20[facility] Evaluation + Plan note Future Appointments Appointment Date:02/22/2022 11:30:00 AM Scheduled Provider:JAMIE SCHROEDER Location:[facility] Appointment Type:PC OV Future Scheduled Tests Laboratory* Complete Blood Count 05/25/21 * Lipid Profile 11/25/21 * Lipid Profile 05/25/21 * Complete Metabolic Panel 05/25/21 [facility] Evaluation + Plan note Future Appointments Appointment Date:05/21/2022 11:00:00 AM Scheduled Provider:JAMIE SCHROEDER Location:[facility] Appointment Type:PC OV Follow Up Diagnostic Tests Pending * Ferritin 02/22/22 Future Scheduled Tests Laboratory* Stool for Occult Blood (Lab) 02/22/22 * Complete Blood Count 05/25/21 * Lipid Profile 11/25/21 * Lipid Profile 05/25/21 * Complete Metabolic Panel 05/25/21 [facility] Evaluation + Plan note Future Appointments Appointment Date:05/21/2022 11:00:00 AM Scheduled Provider:JAMIE SCHROEDER Location:[facility] Appointment Type:PC OV Follow Up Future Scheduled Tests Laboratory* Stool for Occult Blood (Lab) 02/22/22 * Complete Blood Count 05/25/21 * Complete Blood Count 04/10/22 * Lipid Profile 11/25/21 * Lipid Profile 05/25/21 * Complete Metabolic Panel 05/25/21 [facility] Evaluation + Plan note Future Appointments Appointment Date:01/09/2023 11:00:00 AM Scheduled Provider:JAMIE SCHROEDER Location:[facility] Appointment Type:PC OV Future Scheduled Tests Laboratory* Stool for Occult Blood (Lab) 02/22/22 * Lipid Profile 11/25/21 [facility] Order Mapperaluation + Plan note Future Appointments Appointment Date:01/09/2023 11:00:00 AM Scheduled Provider:JAMIE SCHROEDER Location:[facility] Appointment Type:PC OV Diagnostic Tests Pending * Vitamin B12 Level 09/25/22 * Folate Level 09/25/22 Future Scheduled Tests Laboratory* Basic Metabolic Panel 09/25/22 * Stool for Occult Blood (Lab) 02/22/22 * Lipid Profile 11/25/21 [facility] Order Mapperaluation + Plan note Future Appointments Appointment Date:05/13/2023 11:00:00 AM Scheduled Provider:JAMIE SCHROEDER Location:[facility] Appointment Type:PC OV Future Scheduled Tests Laboratory* Stool for Occult Blood (Lab) 02/22/22 [facility] Evaluation + Plan note Future Appointments Appointment Date:05/13/2023 11:00:00 AM Scheduled Provider:JAMIE SCHROEDER Location:[facility] Appointment Type:PC OV Future Scheduled Tests Laboratory* Basic Metabolic Panel 01/19/23 * Stool for Occult Blood (Lab) 02/22/22 [facility] Order Mapperaluation + Plan note Future Appointments Appointment Date:05/13/2023 11:00:00 AM Scheduled Provider:JAMIE SCHROEDER Location:[facility] Appointment Type:PC OV Diagnostic Tests Pending * Urine Culture 04/09/23 Future Scheduled Tests Laboratory* Basic Metabolic Panel 01/19/23 [facility] Evaluation + Plan note Future Appointments Appointment Date:07/15/2023 11:00:00 AM Scheduled Provider:JAMIE SCHROEDER Location:[facility] Appointment Type:PC OV Future Scheduled Tests Laboratory* Basic Metabolic Panel 01/19/23 [facility] Evaluation + Plan note Future Appointments Appointment Date:01/15/2024 10:00:00 AM Scheduled Provider:RADHA GROVER Location:[facility] Appointment Type:CV OV Hospital Follow Up Appointment Date:03/11/2024 11:00:00 AM Scheduled Provider:JAMIE SCHROEDER Location:[facility] Appointment Type:PC OV [facility] Evaluation + Plan note Future Appointments Appointment Date:03/11/2024 11:00:00 AM Scheduled Provider:JAMIE SCHROEDER Location:[facility] Appointment Type:PC OV Appointment Date:05/04/2024 10:30:00 AM Scheduled Provider:RADHA GROVER Location:[facility] Appointment Type:CV OV Future Scheduled Tests Laboratory* Complete Blood Count 01/14/24 [facility] Evaluation + Plan note Future Appointments Appointment Date:04/23/2024 10:45:00 AM Scheduled Provider: Location:[facility] Appointment Type:CT Angiography Abd/Aorta/Iliofemoral w/ Appointment Date:05/04/2024 10:30:00 AM Scheduled Provider:RADHA GROVER Location:[facility] Appointment Type:CV OV Appointment Date:09/15/2024 11:00:00 AM Scheduled Provider:JAMIE SCHROEDER Location:[facility] Appointment Type:PC Wellness Medicare Future Scheduled Tests Laboratory* Complete Blood Count 01/14/24 Radiology* CT Angio Abd/Pelvis/Bilat Lower Extrem 04/23/24 [facility] Evaluation + Plan note Future Appointments Appointment Date:05/04/2024 10:30:00 AM Scheduled Provider:RADHA GROVER Location:[facility] Appointment Type:CV OV Appointment Date:09/15/2024 11:00:00 AM Scheduled Provider:JAMIE SCHROEDER Location:[facility] Appointment Type:PC Wellness Medicare Future Scheduled Tests Laboratory* Complete Blood Count 01/14/24 [facility] Evaluation + Plan note Future Appointments Appointment Date:08/30/2024 10:15:00 AM Scheduled Provider:RADHA GROVER Location:[facility] Appointment Type:CV OV Appointment Date:09/15/2024 11:00:00 AM Scheduled Provider:JAMIE SCHROEDER Location:[facility] Appointment Type:PC Wellness Medicare Future Scheduled Tests Laboratory* Complete Blood Count 01/14/24 [facility] Evaluation + Plan note Future Appointments Appointment Date:11/17/2024 11:30:00 AM Scheduled Provider:JAMIE SCHROEDER Location:[facility] Appointment Type:PC OV Future Scheduled Tests Laboratory* Basic Metabolic Panel 08/17/24 * Complete Blood Count 01/14/24 [facility] evaluation note* Diagnosis Otalgia of right ear- Primary Otalgia, unspecified documented in this encounter [facility] Work Phone: Evaludczmh noteNo assessment information available [facility] Work Phone: evaluation note* Diagnosis Septic shock (CMS/HCC) ([facility])- Primary Sepsis, due to unspecified organism, unspecified whether acute organ dysfunction present ([facility]) Urinary tract infection without hematuria, site unspecified Septic shock (CMS/HCC) ([facility]) [facility]* Diagnosis Generalized weakness- Primary Lightheadedness Dizziness and giddiness [facility]* Diagnosis Onset Date Resolution Status Anemia chronic Primary osteoarthritis, right shoulder acute Right shoulder pain acute [facility] Work Phone: Evaluation note* Diagnosis Onset Date Resolution Status Primary osteoarthritis, right shoulder acute Primary osteoarthritis, right shoulder acute Primary osteoarthritis, right shoulder acute [facility] Work Phone: [email or web address] note* Diagnosis Laceration of right knee, initial encounter- Primary [facility] Spotter[facility]FE[facility]* Diagnosis Knee laceration, right, subsequent encounter- Primary [facility]* Diagnosis Open knee wound, right, initial encounter- Primary Open knee wound, right, initial encounter Laceration of right knee, initial encounter [facility] Narrative No data available for this section [facility] Hospital Discharge instructions* Attachments The following attachments cannot be sent through Care Everywhere. * Earache: Adult ([place]) documented in this [facility] Work Phone: Hospital Discharge instructions No data available for this section [facility] Hospital Discharge instructions* Attachments The following attachments cannot be sent through Care Everywhere. * Generalized Weakness ([place]) * Generalized Weakness Discharge Instructions ([place]) documented in this [facility] HealthProgress note No data available for this section [facility] Summary Purpose Family History Relationship Condition Age at Onset Recorded Date/T adelaida sister Coronary artery disease Unknown brother Coronary artery disease Unknown Relationship Condition Age at Onset Recorded Date/T adelaida sister Coronary artery disease Unknown brother Coronary artery disease Unknown mother Malignant neoplasm Unknown Advance Directives Advance Directive Response Recorded Date/ Time Advance Directives Yes March 25, 2016 11:18am Living Will Yes March 25 6 11:18am Power of Hot Worker Yes March 25, 016 11:18am Latest Code Status on File Code Status Date Activated Date Inactivated Comments Full Code 05/12/2023 4:31 AM Latest Code Status on File Code Status Date Activated Date Inactivated Comments Full Code 05/12/2023 4:31 AM 05/14/2023 2:03 PM Advance Directive Response Recorded Date/ Time Name of Medical Power of Hot Worker DAUGHTERS April 30, 2023 10:14am Advance Directives Yes March 25, 2016 10:18am Living Will Yes April 30 10:14am Power of Hot Worker Yes April 30 023 10:14am Advance Directive Response Recorded Date/ Time Name of Medical Power of Hot Worker DAUGHTER September 19, 2023 11:47am Advance Directives Yes March 25, 2016 11:18am Living Will Yes September 19, 024 11:47am Power of Hot Worker Yes September 19, 2023 11:47am Advance Directive Response Recorded Date/ Time Name of Medical Power of Hot Worker DAUGHTER September 19, 2023 11:47am Advance Directives Yes March 25, 2016 11:18am Living Will No October 30, 2023 5:20am Power of Hot Worker No October 29 5:20am Date Activated Date Inactivated Comments 05/12/2023 4:31 AM 05/14/2023 2:03 PM Documents on File Type Date Recorded Patient Budget Consultant Expl anation Advance Directives and Livin g Will 01/24/2025 8:48 PM Power of Hot Worker 01/24/2025 8:48 PM Documents on File Type Date Recorded Patient Budget Consultant Expl anation Advance Directives and Livin g Will 01/24/2025 8:48 PM Power of Hot Worker 01/24/2025 8:48 PM Date Activated Date Inactivated Comments 02/08/2025 6:49 AM Date Activated Date Inactivated Comments 02/01/2025 12:27 PM 02/08/2025 1:14 AM Date Activated Date Inactivated Comments 05/12/2023 4:31 AM 05/14/2023 2:03 PM Healthcare Agents on File Name Relationship Healthcare Agent Relationsmd p Communication Ambreen Dai Daughter Health Care Agent Gabriel Dias Daughter Health Care Agent Chief Complaint and Reason for Visit Chief Complaint NICOTINE DEP Chief Complaint 2 wk fu RIGHT SHOULDER room 6 PAIN IN RIGHT SHOULDER Reason for Visit Anemia Primary osteoarthritis, right shoulder Right shoulder pain Chief Complaint Cap endo RIGHT SHOULDER PREOP right shoulder 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 Reason for Visit Primary osteoarthrit is, right shoulder Primary osteoarthritis, right shoulder Primary osteoarthritis, right shoulder Chief Complaint Cap endo RIGHT SHOULDER PREOP right shoulder 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 right shoulder Reason for Visit Primary osteoarthrit is, right shoulder Primary osteoarthritis, right shoulder Primary osteoarthritis, right shoulder Additional Source Comments Reason for Visit (unrecogniz ed section and content) Reason Comments Otalgia Reason Comments Weakness, Gen Specialty Diagnoses / Procedures Referred By Contac t Referred To Contact Diagnoses Septic shock (CMS/[facility]) ([facility]) Urinary tract infection without hematuria, site unspecified Sepsis, due to unspecified organism, unspecified whether acute organ dysfunction present ([facility]) Procedures A41.9,R65.34BDD-17-YNTbcovd shock (CMS/HCC) (HCC) N39.6GAD-52-WXOqrmpix tract infection without hematuria, site unspecified A41.2RTL-10-RZZaffae, due to unspecified organism, unspecified whether acute organ dysfunction present (HCC) Restore Close Cancel Brando Frank MD [address] [place] [address] [facility] [address] [place] [address] Referral ID Status Reason Start Date Expiration Date Visits Re quested Visits Authorized [id number] 1 1 Reason Onset Date Comments Hospital Follow-up 05/15/2023 Reason Comments Laceration Pt arrived via ems f rom home for a lac to her R knee after a mechanical fall at home. Pt tripped, landed on her knee. Pt denies hitting head, no loc. Pt does take plavix. Bleeding is controlled. Pt denies any pain. Last tetanus unknown Reason Comments Knee Pain Pt c/o right knee pa in s/p fall yesterday, was seen and sutured at [facility], pt took Tylenol at home with no relief Reason Comments Wound Check Specialty Diagnoses / Procedures Referred By Contac t Referred To Contact Diagnoses Open knee wound, right, initial encounter Procedures .. Brando Frank MD [address] [place] [address] Phone: tel: fax: [facility] Clinical Decision Unit CDU [address] [place] [address] Phone: tel: Referral ID Status Reason Start Date Expiration Date Visits Re quested Visits Authorized [id number] 1 1 INFORMATION SOURCE (unrecogn ized section and content) DATE CREATED AUTHOR 08/17/2021 [facility] DATE CREATED AUTHOR AUTHOR'S ORGANIZ ATION 03/03/2024 [facility] ([place]) DATE CREATED AUTHOR AUTHOR'S ORGANIZ ATION 06/02/2024 [facility] DATE CREATED AUTHOR AUTHOR'S ORGANIZ ATION 07/24/2024 [facility] DATE CREATED AUTHOR AUTHOR'S ORGANIZ ATION 09/16/2024 [facility] DATE CREATED AUTHOR AUTHOR'S ORGANIZ ATION 10/14/2024 [facility] DATE CREATED AUTHOR AUTHOR'S ORGANIZ ATION 02/04/2025 [facility] Goals (unrecognized section and content) Goals may be documented in a n alternate section No data available for this section No data available for this section No data available for this section No data available for this section No data available for this section No data available for this section No data available for this sectionGoals may be documented in an alternate section No data available for this section No data available for this section No data available for this section No data available for this section No data available for this section No data available for this section No data available for this section No data available for this section No data available for this section No data available for this section No data available for this section No data available for this section No data available for this section Care Team (unrecognized sect ion and content) Care Team Personnel Name: CRISTÓBAL FELIX MD Member Role: Geological Engineering Teacher Address: Address: [address] [place], [place] [phone] [place] Name: JAMIE SCHROEDER Position: P4 Advanced Practice Nurse Med Service: Active Provider Member Role: Primary Care Physician Address: Address: [address] [place] [phone] [place] [address] Care Team Related Persons Name: GABRIEL DIAS Address: Home [address] [place] [phone] [place] Name: LOW DAI Care Team Personnel Name: CRISTÓBAL FELIX MD Member Role: Geological Engineering Teacher Address: Address: [address] [place] [phone] [place] Name: JAMIE SCHROEDER Position: P4 Advanced Practice Nurse Med Service: Active Provider Member Role: Primary Care Physician Address: Address: [address] [place] [phone] [place] Care Team Related Persons Name: GABRIEL DIAS Address: Home [id number] [place] [phone] [place] Name: LOW DAI Care Team Personnel Name: CRISTÓBAL FELIX MD Address: Address: [address] [place] [phone] [place] Name: JAMIE SCHROEDERFINANCE PROFESSOR Position: P4 Advanced Practice Nurse Member Role: Primary Care Physician Address: Address: [address] [place] [phone] [place] Care Team Related Persons Name: GABRIEL DIAS Address: Home [id number] [place] [phone] [place] Name: LOW DAI Care Team Personnel Name: CRISTÓBAL FELIX MD Member Role: Geological Engineering Teacher Address: Address: [address] [place] [address] [place] Name: JAMIE SCHROEDERFINANCE PROFESSOR Position: P4 Advanced Insurance Loss Adjuster Member Role: Primary Care Physician Address: Address: [address] [place] [phone] [place] [address] Care Team Related Persons Name: MICHAELGABRIEL Address: Home [address] [place] [phone] [place] Name: LOW DAI Care Team Personnel Name: CRISTÓBAL FELIX MD Member Role: Geological Engineering Teacher Address: Address: [address] [place] [address] [place] Name: JAMIE SCHROEDER Position: P4 Advanced Insurance Loss Adjuster Member Role: Primary Care Physician Address: Address: [address] [place] [id number] [place] [address] Care Team Related Persons Name: DIASGABRIEL SANTOS Address: Home [address] [place] [phone] [place] Name: LOW DAI Patient Care team informatio n (unrecognized section and content) Team Status: Active Member Role Status Dates Dr. Carla Christian , Family Provider Active Jamie Schroeder SHALE MINER, SHALE MINER-C Primary Care Provider Active Team Status: Inactive Member Role Status Dates Jamie Schroeder SHALE MINER, SHALE MINER-C Primary Care Provider Active Cindy Munoz SHALE MINER, SHALE MINER-C Attending Provider, Denis cantrell Provider Active Strap Stitcher Relationship Specialty Start Date End Date Jamie Schroeder [address] [place] [id number] PCP - General 05/04/21 Strap Stitcher Relationship Specialty Start Date End Date Jamie Schroeder [address] [place] [address] PCP - General 05/04/21 Strap Stitcher Relationship Specialty Start Date End Date Jamie Schroeder [address] [place] [phone] PCP - General 05/04/21 Strap Stitcher Relationship Specialty Start Date End Date Jamie Schroeder [address] [place] [phone] PCP - General 05/04/21 Team Status: Inactive Member Role Status Dates Jamie Schroeder SHALE MINER, SHALE MINER-C Primary Care Provider, Referring Provider Active Dr. Ryan Hou DO Attending Provider Active Team Status: Active Member Role Status Dates Jamie Schroeder SHALE MINER, SHALE MINER-C Primary Care Provider, Referring Provider Active Dr. Ryan Hou DO Attending Provider, Other Prov ider Active Team Status: Inactive Member Role Status Dates Jamie Schroeder SHALE MINER, SHALE MINER-C Primary Care Provider, Referring Provider Active Diana Love MD Attending Provider Active Team Status: Inactive Member Role Status Dates Jamie Schroeder SHALE MINER, SHALE MINER-C Primary Care Provider Active Dr. Alexy Abraham MD Attending Provider Active Team Status: Inactive Member Role Status Dates Jamie Schroeder SHALE MINER, SHALE MINER-C Primary Care Provider Active Diana Love MD Attending Provider, Referring Prov ider Active Team Status: Active Member Role Status Dates Jamie Schroeder SHALE MINER, SHALE MINER-C Primary Care Provider Active Diana Love MD Attending Provider Active Team Status: Active Member Role Status Dates Jamie Schroeder SHALE MINER, SHALE MINER-C Primary Care Provider Active Dr. Brayan Dumont MD Attending Provider Activ latesha Love MD Referring Provider Active Team Status: Active Member Role Status Dates Jamie Schroeder SHALE MINER, SHALE MINER-C Primary Care Provider Active Diana Love MD Attending Provider, Referring Provider, Other Provider Active Team Status: Inactive Member Role Status Dates Jamie Schroeder SHALE MINER, SHALE MINER-C Primary Care Provider Active Dr. Vernon Gillespie DO Emergency Provider Active Strap Stitcher Relationship Specialty Start Date End Date Jamie Schroeder [address] [place] [phone] PCP - General 05/04/21 Strap Stitcher Relationship Specialty Start Date End Date Jamie Schroeder [address] [place] [phone] PCP - General 05/04/21 Strap Stitcher Relationship Specialty Start Date End Date Jamie Schroeder [address] [place] [address] PCP - General 05/04/21 Scheduled Active and Recently Administ ered Medications (unrecognized section and content) Medication Order 05/12/2023 05/13/2023 05/14/2023 atorvastatin (Lipitor) tablet 40 mg 40 mg, Oral, Daily, First dose on Fri05/12/23 at 0900 0900 (Given - Provider: Yakelin Art RN) 0828 (Given - Provider: Janae Mccullough, OTONIEL) 0832 (Given - Provider: Janae Mccullough, RN) cloNIDine (Catapres) tablet 0.2 mg 0.2 mg, Oral, Daily, First dose on Fri05/12/23 at 0800 0900 (Given - Provider: Yakelin Art RN) 0828 (Given - Provider: Janae Mccullough, RN) 0832 (Given - Provider: Janae Mccullough, RN) clopidogrel (Plavix) tablet 75 mg 75 mg, Oral, Daily, First dose on Fri05/12/23 at 0900 0900 (Given - Provider: Yakelin Art RN) 0828 (Given - Provider: Janae Mccullough, RN) 0832 (Given - Provider: Janae Mccullough, RN) dulaglutide (Trulicity) injection 1.5 mg 1.5 mg, SubCUTAneous, Weekly, First dose on Fri05/12/23 at 2100, Obtain patient's own product and have pharmacist inspect prior to administration. Non-Formulary Medication - Patient must supply own therapy. Medication must be verified by [facility] prior to administration. If patient cannot supply, please contact prescriber. Verified by Lola Kimbrough [facility] 05/12/23 8:32 PM Give subcutaneously into abdomen, thigh or upper arm, rotating sites weekly. 2113 (Given - Provider: Enrrique Marrufo RN) DULoxetine (Cymbalta) DR capsule 30 mg 30 mg, Oral, Daily, First dose on Fri05/12/23 at 0900, Do not crush or chew. 0859 (Given - Provider: Yakelin Art RN) 0828 (Given - Provider: Janae Mccullough RN) 0832 (Given - Provider: Janae Mccullough RN) enoxaparin (Lovenox) syringe 30 mg 30 mg, SubCUTAneous, Every 24 hours scheduled (Daily), First dose on Fri05/12/23 at 0900, Renal dosing, Indication of Use: Prophylaxis-DVT/PE, Indications: Prophylaxis of Venous Thromboembolism 0900 (Given - Provider: Yakelin Art RN) 0828 (Given - Provider: Janae Mccullough RN) 0832 (Given - Provider: Janae Mccullough RN) ferrous sulfate solution 187.5 mg 187.5 mg, Oral, Daily, First dose on Fri05/12/23 at 0900, [employer] approved therapeutic substitution for ferrous gluconate 09 (Given - Provider: Yakelin Art RN) 0832 (Given - Provider: Janae Mccullough, OTONIEL) 0838 (Given - Provider: Janae Mccullough, RN) lisinopril tablet 2.5 mg 2.5 mg, Oral, Daily, First dose on Fri05/13/23 at 1230 1615 (Given - Provider: Janae Mccullough RN) 0832 (Given - Provider: Janae Mccullough RN) piperacillin-tazobactam (Zosyn) 3,375 mg in sodium chloride 0.9 % 50 mL IVPB Mini-Bag Plus 3,375 mg, IntraVENous, at 12.5 mL/hr, Administer over 4 Hours, Every 8 hours, First dose on Fri05/12/23 at 0400, Mini-Bag Plus bag, Suspected Indication (Select all that apply): Sepsis of Unknown Etiology 0524 (New Bag - Provider: Fior Clifford RN)0924 (Stopped - Provider: Yakelin Art RN)1144 (New Bag - Provider: Yakelin Art RN)1544 (Stopped - Provider: Yakelin Art RN)2118 (New Bag - Provider: Enrrique Marrufo RN) 0118 (Stopped - Provider: Enrrique Marrufo RN)0328 (New Bag - Provider: Enrrique Marrufo RN)0728 (Stopped - Provider: Janae Mccullough RN)1425 (New Bag - Provider: Janae Mccullough RN)1825 (Stopped - Provider: Enrrique Marrufo RN)2220 (New Bag - Provider: Lauren Linares RN) 0220 (Stopped - Provider: Lauren Linares, OTONIEL)0638 (New Bag - Provider: Lauren Linares, RN)1038 (Stopped - Provider: Janae Mccullough RN) sennosides (Senokot) tablet 17.2 mg 17.2 mg (2 tablet), Oral, 2 times daily, First dose on Fri05/12/23 at 0900 0900 (Not Given - Provider: Yakelin Art RN - Reason: Patient/family refused)2118 (Given - Provider: Enrrique Marrufo RN) 0828 (Given - Provider: Janae Mccullough RN)2055 (Not Given - Provider: Enrrique Marrufo RN - Reason: Patient/family refused) 0832 (Given - Provider: Janae Mccullough RN) sodium chloride 0.9 % bolus 500 mL (COMPLETED) 500 mL, IntraVENous, at 500 mL/hr, Administer over 1 Hours, Once, On Fri05/12/23 at 0500, For 1 dose 0525 (New Bag - Provider: Fior Clifford RN)0625 (Stopped - Provider: Fior Clifford RN) vancomycin (Vancocin) 750 mg in sodium chloride 0.9 % 250 mL IVPB (CANCELED) 750 mg, IntraVENous, at 250 mL/hr, Administer over 60 Minutes, Every 24 hours, First dose on Fri05/12/23 at 1800, ADD-[place] bag, Suspected Indication (Select all that apply): Sepsis of Unknown Etiology 1813 (Given - Provider: Yakelin Art RN) PRN Medication Order 05/12/2023 05/13/2023 05/14/2023 acetaminophen (Tylenol) suppository 650 mg(Linked Group 1) 650 mg, Rectal, Every 6 hours PRN, mild pain (1-3), fever, For temp greater than 100.4 F (38 C), Starting on Fri05/12/23 at 0430, Administer if oral route cannot be used. Maximum dose of acetaminophen is 4000 mg from all sources in 24 hours. 0900 (See Alternative - Provider: Yakelin Art RN)2141 (See Alternative - Provider: Enrrique Marrufo, OTONIEL) 0837 (See Alternative - Provider: Janae Mccullough RN)1615 (See Alternative - Provider: Janae Mccullough RN)221 (See Alternative - Provider: Lauren Linares, OTONIEL) 0918 (See Alternative - Provider: Janae Mccullough RN) acetaminophen (Tylenol) tablet 650 mg(Linked Group 1) 650 mg, Oral, Every 6 hours PRN, mild pain (1-3), fever, For temp greater than 100.4 F (38 C), Starting on Fri05/12/23 at 0430, Maximum dose of acetaminophen is 4000 mg from all sources in 24 hours. 0900 (Given - Provider: Yakelin Art RN)214 (Given - Provider: Enrrique Marrufo RN) 0837 (Given - Provider: Janae Mccullough RN)1615 (Given - Provider: Janae Mccullough RN)221 (Given - Provider: Lauren Linares, OTONIEL) 0918 (Given - Provider: Janae Mccullough RN) albuterol 108 (90 Base) MCG/ACT inhaler 1 puff 1 puff, Inhalation, Every 4 hours PRN, wheezing, Starting on Fri05/12/23 at 1146 1819 (Given - Provider: Yakelin Art RN)2138 (Not Given - Provider: Enrrique Marrufo RN - Reason: Other - Comment: already taken) bisacodyl (Dulcolax) suppository 10 mg 10 mg, Rectal, Daily PRN, constipation, Starting on Fri05/12/23 at 0848, 2nd line for constipation ipratropium-albuterol (Duo-Neb) 0.5-2.5 mg/3 mL nebulizer solution 3 mL 3 mL, Nebulization, 4 times daily PRN, wheezing, Starting on Fri05/12/23 at 1146 ondansetron (Zofran) injection 4 mg(Linked Group 2) 4 mg, IntraVENous, Every 6 hours PRN, nausea, vomiting, Starting on Fri05/12/23 at 0430, 1st Line. Give IV if patient is unable to take orally. If inadequate response within 60 minutes, proceed to next-line agent or contact provider if no further options ordered. ondansetron ODT (Zofran-ODT) disintegrating tablet 4 mg(Linked Group 2) 4 mg, Oral, Every 8 hours PRN, nausea, vomiting, Starting on Fri05/12/23 at 0430, 1st Line. If inadequate response within 60 minutes, proceed to next-line agent or contact provider if no further options ordered. Patient should allow tablet to dissolve on tongue. Do not remove from blister pack until just before administering. polyethylene glycol (PEG) 3350 (Miralax) packet 17 g 17 g, Oral, Daily PRN, constipation, Starting on Fri05/12/23 at 0430, 1st line for treatment of constipation - give scheduled if no bowel movement in past 24 hours. Linked Groups Order Group 1: acetaminophen (Tylenol) tablet 650 mgJump to med 650 mg, Oral, Every 6 hours PRN, mild pain (1-3), fever, For temp greater than 100.4 F (38 C), Starting on Fri05/12/23 at 0430, Maximum dose of acetaminophen is 4000 mg from all sources in 24 hours. Or acetaminophen (Tylenol) suppository 650 mgJump to med 650 mg, Rectal, Every 6 hours PRN, mild pain (1-3), fever, For temp greater than 100.4 F (38 C), Starting on Fri05/12/23 at 0430, Administer if oral route cannot be used. Maximum dose of acetaminophen is 4000 mg from all sources in 24 hours. Group 2: ondansetron ODT (Zofran-ODT) disintegrating tablet 4 mgJump to med 4 mg, Oral, Every 8 hours PRN, nausea, vomiting, Starting on Fri05/12/23 at 0430, 1st Line. If inadequate response within 60 minutes, proceed to next-line agent or contact provider if no further options ordered. Patient should allow tablet to dissolve on tongue. Do not remove from blister pack until just before administering. Or ondansetron (Zofran) injection 4 mgJump to med 4 mg, IntraVENous, Every 6 hours PRN, nausea, vomiting, Starting on Fri05/12/23 at 0430, 1st Line. Give IV if patient is unable to take orally. If inadequate response within 60 minutes, proceed to next-line agent or contact provider if no further options ordered. Scheduled Medication Order 05/16/2023 05/17/2023 05/18/2023 sodium chloride 0.9 % bolus 1,000 mL (COMPLETED) 1,000 mL, IntraVENous, at 1,000 mL/hr, Administer over 1 Hours, Once, On Fri05/18/23 at 1740, For 1 dose 1740 (New Bag - Prov ider: Miguel A Guerrero, OTONIEL)1846 (Stopped - Provider: Miguel A Guerrero RN) Scheduled Medication Order 01/22/2025 01/23/2025 01/24/2025 lidocaine-EPINEPHrine (Xylocaine W/EPI) 1 %-1:[id number] injection 10 mL (COMPLETED) 10 mL, Infiltration, Once, On Fri01/23/25 at 2345, For 1 dose 2344 (Given - Provider: Megan Gale RN) Scheduled Medication Order 01/22/2025 01/23/2025 01/24/2025 cephalexin (Keflex) capsule 500 mg (COMPLETED) 500 mg, Oral, Once, On Fri01/24/25 at 2044, For 1 dose, Suspected Indication (Select all that apply): Skin and Soft Tissue Infection 2050 (Given - Provid er: Janelle Pérez RN) lidocaine-EPINEPHrine (Xylocaine W/EPI) 1 %-1:[id number] injection 10 mL (COMPLETED) 10 mL, Infiltration, Once, On Fri01/24/25 at 2049, For 1 dose 2130 (Given by Other - Provider: Maldonado Spencer RN - Reason: Administered by Other (Comment Required) - Comment: Provider administered.) oxyCODONE (Roxicodone) immediate release tablet 5 mg (COMPLETED) 5 mg, Oral, Once, On Fri01/24/25 at 204, For 1 dose 2051 (Given - Provid er: Janelle Pérez RN) Scheduled Medication Order 02/05/2025 02/06/2025 02/07/2025 atorvastatin (Lipitor) tablet 10 mg 10 mg, Oral, Nightly, First dose on Fri02/01/25 at 2100 2043 (Given - Provider: Luna Hernandez, OTONIEL) 212 (Given - Provider: Sammy Savage RN) 2100 (Canceled Entry - Provider: Automatic Discharge Provider - Comment: Automatically canceled at discontinue of medication order) cloNIDine (Catapres) tablet 0.2 mg (CANCELED) 0.2 mg, Oral, Daily, First dose on Fri02/01/25 at 1300 0756 (Given - Provider: Kecia Walden RN) 0759 (Given - Provider: Kecia Walden RN) cloNIDine (Catapres) tablet 0.2 mg 0.2 mg, Oral, Nightly, First dose (after last modification) on Fri02/07/25 at 2100 2100 (Canceled Entry - Provider: Automatic Discharge Provider - Comment: Automatically canceled at discontinue of medication order) clopidogrel (Plavix) tablet 75 mg 75 mg, Oral, Daily, First dose on Fri02/01/25 at 1300 0758 (Given - Provider: Kecia Walden RN) 0801 (Given - Provider: Kecia Walden RN) 0843 (Given - Provider: Noel Cardoza, OTONIEL) Diclofenac Sodium (Voltaren) 1 % gel 2 g 2 g, Topical, 2 times daily, First dose on Fri02/06/25 at 1430, Apply to left knee. 1510 (Given - Provider: Kecia Walden, OTONIEL)212 (Given - Provider: Sammy Savage RN) 0843 (Given - Provider: Noel Cardoza, OTONIEL)2100 (Canceled Entry - Provider: Automatic Discharge Provider - Comment: Automatically canceled at discontinue of medication order) dilTIAZem CD (Cardizem CD) 24 hr capsule 120 mg 120 mg, Oral, Daily, First dose on Fri02/06/25 at 1700, Do not crush, chew, or split. 1703 (Given - Provider: Kecia Walden RN) 0843 (Given - Provider: Noel Cardoza, OTONIEL) DULoxetine (Cymbalta) DR capsule 30 mg 30 mg, Oral, Daily, First dose on Fri02/01/25 at 1300, Do not crush or chew. 0758 (Given - Provider: Kecia Walden RN) 0801 (Given - Provider: Kecia Walden RN) 0843 (Given - Provider: Noel Cardoza, OTONIEL) enoxaparin (Lovenox) syringe 40 mg 40 mg, SubCUTAneous, Every 24 hours scheduled (Daily), First dose on Fri02/01/25 at 1300, Indication of Use: Prophylaxis-DVT/PE, Indications: Prophylaxis of Venous Thromboembolism 0758 (Given - Provider: Kecia Walden RN) 0800 (Given - Provider: Kecia Walden RN) 0844 (Given - Provider: Noel Cardoza RN) Insulin Lispro (Humalog) injection 0-12 Units(Linked Group 1) 0-12 Units, SubCUTAneous, 3 times daily with meals, First dose on Fri02/02/25 at 0800, Medium Dose Correction Algorithm Glucose: Dose: LESS than 150 No Insulin 150-199 2 Units 200-249 4 Units 250-299 6 Units 300-349 8 Units 350-400 10 Units Above 400 12 Units 0752 (Not Given - Provider: Kecia Walden RN - Reason: Order parameters not met)1215 (Given - Provider: Kecia Walden RN)1643 (Not Given - Provider: Kecia Walden RN - Reason: Order parameters not met) 0730 (Not Given - Provider: Kecia Walden RN - Reason: Order parameters not met)1149 (Given - Provider: Kecia Walden RN)1703 (Given - Provider: Kecia Walden RN) 0759 (Not Given - Provider: Noel Cardoza RN - Reason: Order parameters not met)1230 (Given - Provider: oNel Cardoza RN)1731 (Given - Provider: Noel Cardoza RN) Insulin Lispro (Humalog) injection 0-12 Units(Linked Group 1) 0-12 Units, SubCUTAneous, Nightly, First dose on Fri02/01/25 at 2245, If eating or bolus tube feeding: Medium Dose Correction Algorithm Glucose: Dose: LESS than 150 No Insulin 150-199 2 Units 200-249 4 Units 250-299 6 Units 300-349 8 Units 350-400 10 Units Above 400 12 Units 2048 (Not Given - Provider: Luna Hernandez RN - Reason: Order parameters not met) 2135 (Given - Provider: Sammy Savage RN) 2100 (Canceled Entry - Provider: Automatic Discharge Provider - Comment: Automatically canceled at discontinue of medication order) ipratropium-albuterol (Duo-Neb) 0.5-2.5 mg/3 mL nebulizer solution 3 mL (CANCELED) 3 mL, Nebulization, 3 times daily, First dose (after last modification) on Fri02/03/25 at 0800 0854 (Given - Provider: Delmy Esquivel RCP)1339 (Given - Provider: Delmy Esquivel RCP)2033 (Given - Provider: Marcelo Oconnor RCP) 0825 (Given - Provider: Carlota Mejía RCP)1610 (Given - Provider: Carlota Mejía RCP) ipratropium-albuterol (Duo-Neb) 0.5-2.5 mg/3 mL nebulizer solution 3 mL 3 mL, Nebulization, 2 times daily, First dose (after last modification) on Fri02/06/25 at 2000 2101 (Given - Provider: Marcelo Oconnor RCP) 0947 (Given - Provider: Breezy Vergara RCP - Comment: tx is rescheduled dt pt is eating)1999 (Canceled Entry - Provider: Automatic Discharge Provider - Comment: Automatically canceled at discontinue of medication order) lisinopril tablet 5 mg 5 mg, Oral, Daily, First dose on Fri02/01/25 at 1300 0758 (Given - Provider: Kecia Walden RN) 0801 (Given - Provider: Kecia Walden RN) 0843 (Given - Provider: Noel Cardoza RN) mometasone-formoterol (Dulera 200) 200-5 MCG/ACT inhaler 2 puff 2 puff, Inhalation, 2 times daily, First dose on Fri02/03/25 at 2000, Administer using an inhaler spacer. Rinse mouth with water after use to reduce aftertaste and incidence of candidiasis. Do not swallow. 0801 (Given - Provider: Kecia Walden RN) 0000 (Given - Provider: Luna Hernandez RN - Comment: Satnam larlatesha)0759 (Given - Provider: Kecia Walden RN)2126 (Given - Provider: Sammy Savage RN) 0844 (Given - Provider: Noel Cardoza RN)1999 (Canceled Entry - Provider: Automatic Discharge Provider - Comment: Automatically canceled at discontinue of medication order) pantoprazole (ProtoNix) EC tablet 40 mg 40 mg, Oral, Daily before breakfast, First dose on Fri02/07/25 at 0600, Do not crush, chew, or split. 0533 (Given - Provider: Sammy Savage RN) senna-docusate sodium (Senokot-S) 8.6-50 MG tablet 2 tablet 2 tablet, Oral, Daily, First dose on 02/06/25 at 1430 1510 (Given - Provider: Kecia Walden RN) 0842 (Given - Provider: Noel Cardoza RN) sodium chloride 3 % hypertonic nebulizer solution 4 mL 4 mL, Nebulization, 3 times daily, First dose (after last modification) on Fri02/06/25 at 2000 2101 (Given - Provider: Marcelo Oconnor RCP) 1002 (Given - Provider: Breezy Vergara RCP - Comment: tx is rescheduled dt pt is eating)1557 (Not Given - Provider: Breezy Vergara RCP - Reason: Patient/family refused - Comment: pt doesn't want tx. pt stated that she is getting ready to go to rehab)2100 (Canceled Entry - Provider: Automatic Discharge Provider - Comment: Automatically canceled at discontinue of medication order) traZODone (Desyrel) tablet 50 mg 50 mg, Oral, Nightly, First dose on 02/06/25 at 2100 2127 (Given - Provider: Sammy Savage RN) 2100 (Canceled Entry - Provider: Automatic Discharge Provider - Comment: Automatically canceled at discontinue of medication order) vancomycin (Vancocin) 750 mg in sodium chloride 0.9 % 250 mL IVPB (CANCELED) 750 mg, IntraVENous, at 125 mL/hr, Administer over 120 Minutes, Every 24 hours, First dose (after last modification) on Fri02/04/25 at 1500, ADD-[place] bag, Suspected Indication (Select all that apply): Skin and Soft Tissue Infection 1540 (New Bag - Provider: Kecia Walden RN)1602 (Stopped - Provider: Kecia Walden RN)1740 (Canceled Entry - Provider: Kecia Walden RN) vancomycin (Vancocin) 750 mg in sodium chloride 0.9 % 500 mL IVPB (CANCELED) 750 mg, IntraVENous, at 250 mL/hr, Administer over 120 Minutes, Every 24 hours, First dose on 02/05/25 at 1700, Suspected Indication (Select all that apply): Skin and Soft Tissue Infection 1648 (New Bag - Provider: Kecia Walden RN)1843 (Stopped - Provider: Kecia Walden RN) 1730 (New Bag - Provider: Kecia Walden RN)2118 (Stopped - Provider: Sammy Savage RN) PRN Medication Order 02/05/2025 02/06/2025 02/07/2025 acetaminophen (Tylenol) suppository 650 mg(Linked Group 2) 650 mg, Rectal, Every 6 hours PRN, fever, For temp greater than 100.4 F (38 C), Starting on 02/06/25 at 1422, Administer if oral route cannot be used. Maximum dose of acetaminophen is 4000 mg from all sources in 24 hours. 1448 (See Alternative - Provider: Kecia Walden RN)2126 (See Alternative - Provider: Sammy Savage RN) 0843 (See Alternative - Provider: Noel Cardoza RN)1502 (See Alternative - Provider: Noel Cardoza RN) acetaminophen (Tylenol) tablet 1,000 mg(Linked Group 2) 1,000 mg, Oral, Every 6 hours PRN, mild pain (1-3), fever, moderate pain (4-6), severe pain (7-10), headaches, For temp greater than 100.4 F (38 C), Starting on 02/06/25 at 1422, Maximum dose of acetaminophen is 4000 mg from all sources in 24 hours. 1448 (Given - Provider: Kecia Walden RN)2126 (Given - Provider: Sammy Savage RN) 0843 (Given - Provider: Noel Cardoza RN)1502 (Given - Provider: Noel Cardoza RN) acetaminophen (Tylenol) tablet 650 mg (CANCELED) 650 mg, Oral, Every 6 hours PRN, mild pain (1-3), fever, moderate pain (4-6), severe pain (7-10), headaches, For temp greater than 100.4 F (38 C), Starting on Fri02/04/25 at 1955, Maximum dose of acetaminophen is 4000 mg from all sources in 24 hours. 022 (Given - Provider: Abilio Thomas RN)0956 (Given - Provider: Kecia Walden RN)184 (Given - Provider: Kecia Walden RN) 0058 (Given - Provider: Luna Hernandez, RN)0801 (Given - Provider: Kecia Walden RN) albuterol 108 (90 Base) MCG/ACT inhaler 1 puff 1 puff, Inhalation, Every 4 hours PRN, wheezing, Starting on Fri02/01/25 at 1223, Administer using an inhaler spacer. 2047 (Given - Provider: Luna Hernandez RN) dextrose 5 % infusion 100 mL/hr, IntraVENous, PRN, Blood sugar less than 70mg/dL, Starting on Fri02/01/25 at 2238, Start infusion following administration of dextrose 50% or glucagon. dextrose 50 % solution 12.5 g 12.5 g, IntraVENous, PRN, low blood sugar, Blood glucose less than 70 mg/dL and patient NOT ALERT or NPO., Starting on Fri02/01/25 at 2238, If patient does not respond within 5 minutes, repeat dose x1. Start D5W at 100 mL/hour until ordering provider can be reached. Repeat blood glucose in 15 minutes. If blood glucose is less than 70 mg/dL, repeat treatment and recheck blood glucose in 15 minutes x2. If using Glucostabilizer, dose as instructed per system. diphenhydrAMINE (BENADryl) tablet/capsule 25 mg 25 mg, Oral, Every 6 hours PRN, itching, Starting on Fri02/03/25 at 1635 1427 (Given - Provider: Kecia Walden, OTONIEL) 1658 (Given - Provider: Kecia Walden RN) glucagon (human recombinant) injection 1 mg 1 mg, IntraMUSCular, PRN, low blood sugar, Blood glucose less than 70 mg/dL and patient NOT ALERT or NPO and does not have IV access., Starting on Fri02/01/25 at 2238, After administration, attempt intravenous access and start D5W at 100 mL/hr. Repeat blood glucose in 15 minutes x2 and notify provider. glucose oral gel 15 g 15 g, Oral, As needed, low blood sugar, Starting on Fri02/01/25 at 2238, If blood glucose less than 50 mg/dL and patient ALERT and NOT NPO, give 2 tubes glucose gel. If blood glucose less than 70 mg/dL and patient ALERT and NOT NPO, give 1 tube glucose gel. Repeat blood glucose in 15 minutes. If blood glucose is less than 70 mg/dL, repeat treatment and recheck blood glucose in 15 minutes x2 and notify provider. morphine injection 1 mg 1 mg, IntraVENous, Every 4 hours PRN, severe pain (7-10), Starting on Fri02/01/25 at 1224, If oral and injectable narcotics ordered, use oral first and only use injectable if oral is ineffective or cannot take oral. Do Not give oral and injectable within 1 hour of each other unless specifically ordered. naloxone (Narcan) injection 0.4 mg 0.4 mg, IntraVENous, Every 5 min PRN, opioid reversal, respiratory depression, Starting on Fri02/01/25 at 1235, +++ For RR <10, pinpoint pupils, over sedation for opioid reversal - MUST notify semiconductor bonder provider immediately after first dose, may give IM or SQ if no IV access +++ ondansetron (Zofran) injection 4 mg(Linked Group 3) 4 mg, IntraVENous, Every 6 hours PRN, nausea, vomiting, Starting on Fri02/01/25 at 1224, 1st Line. Give IV if patient is unable to take orally. If inadequate response within 60 minutes, proceed to next-line agent or contact provider if no further options ordered. ondansetron ODT (Zofran-ODT) disintegrating tablet 4 mg(Linked Group 3) 4 mg, Oral, Every 8 hours PRN, nausea, vomiting, Starting on Fri02/01/25 at 1224, 1st Line. If inadequate response within 60 minutes, proceed to next-line agent or contact provider if no further options ordered. Patient should allow tablet to dissolve on tongue. Do not remove from blister pack until just before administering. oxyCODONE (Roxicodone) immediate release tablet 5 mg 5 mg, Oral, Every 8 hours PRN, severe pain (7-10), Starting on Fri02/01/25 at 1224 oxymetazoline (Afrin) 0.05 % nasal spray 2 spray 2 spray, Each Nostril, Every 12 hours PRN, congestion, Starting on Fri02/06/25 at 2247, For 3 days 2306 (Given - Provider: Sammy Savage, OTONIEL) polyethylene glycol (PEG) 3350 (Miralax) packet 17 g 17 g, Oral, Daily PRN, constipation, Starting on Fri02/01/25 at 1224, 1st line for treatment of constipation - give scheduled if no bowel movement in past 24 hours. 0801 (Given - Provider: Kecia Walden RN) 0544 (Given - Provider: Luna Hernandez RN) 0533 (Given - Provider: Sammy Savage RN) sodium chloride 3 % hypertonic nebulizer solution 4 mL (CANCELED) 4 mL, Nebulization, 2 times daily PRN, thick secretions, Starting on Fri02/06/25 at 0834 0830 (Given - Provider: Carlota Mejía RCP)1615 (Given - Provider: Carolta Mejía RCP) Linked Groups Order Group 1: Insulin Lispro (Humalog) injection 0-12 UnitsJump to med 0-12 Units, SubCUTAneous, 3 times daily with meals, First dose on Fri02/02/25 at 0800, Medium Dose Correction Algorithm Glucose: Dose: LESS than 150 No Insulin 150-199 2 Units 200-249 4 Units 250-299 6 Units 300-349 8 Units 350-400 10 Units Above 400 12 Units And Insulin Lispro (Humalog) injection 0-12 UnitsJump to med 0-12 Units, SubCUTAneous, Nightly, First dose on Fri02/01/25 at 2245, If eating or bolus tube feeding: Medium Dose Correction Algorithm Glucose: Dose: LESS than 150 No Insulin 150-199 2 Units 200-249 4 Units 250-299 6 Units 300-349 8 Units 350- 400 10 Units Above 400 12 Units Group 2: acetaminophen (Tylenol) tablet 1,000 mgJump to med 1,000 mg, Oral, Every 6 hours PRN, mild pain (1-3), fever, moderate pain (4-6), severe pain (7-10), headaches, For temp greater than 100.4 F (38 C), Starting on Fri02/06/25 at 1422, Maximum dose of acetaminophen is 4000 mg from all sources in 24 hours. Or acetaminophen (Tylenol) suppository 650 mgJump to med 650 mg, Rectal, Every 6 hours PRN, fever, For temp greater than 100.4 F (38 C), Starting on Fri02/06/25 at 1422, Administer if oral route cannot be used. Maximum dose of acetaminophen is 4000 mg from all sources in 24 hours. Group 3: ondansetron ODT (Zofran-ODT) disintegrating tablet 4 mgJump to med 4 mg, Oral, Every 8 hours PRN, nausea, vomiting, Starting on Fri02/01/25 at 1224, 1st Line. If inadequate response within 60 minutes, proceed to next-line agent or contact provider if no further options ordered. Patient should allow tablet to dissolve on tongue. Do not remove from blister pack until just before administering. Or ondansetron (Zofran) injection 4 mgJump to med 4 mg, IntraVENous, Every 6 hours PRN, nausea, vomiting, Starting on Fri02/01/25 at 1224, 1st Line. Give IV if patient is unable to take orally. If inadequate response within 60 minutes, proceed to next-line agent or contact provider if no further options ordered. FOR RECORDS PERTAINING TO PATIENTS WHO ARE OR HAVE BEEN ENROLLED IN A CHEMICAL DEPENDENCY/SUBSTANCEABUSE PROGRAM, SOME INFORMATION MAY BE OMITTED. This clinical summary was aggregated from multiple sources. Caution should be exercised in using it in the provision of clinical care. This summary normalizes information from multiple sources, and as a consequence, information in this document may materially change the coding, format and clinical context of patient data. In addition, data may be omitted in some cases. CLINICAL DECISIONS SHOULD BE BASED ON THE PRIMARY CLINICAL RECORDS. [facility]. provides no warranty or guarantee of the accuracy or completeness of information in this document.
--- NOTE | 2025-02-08 22:39 | VDLE_ITS ---
Reason For Study Reason For Study: Elevated D-dimer RIGHT LEFT GSV is normal. GSV is normal. CFV is compressible, spontaneous, phasic, competent CFV is compressible, spontaneous, phasic, competent, and demonstrates normal augmentation. and demonstrates normal augmentation. FV is compressible, spontaneous, phasic, competent FV is compressible, spontaneous, phasic, competent and demonstrates normal augmentation. and demonstrates normal augmentation. POP V is compressible, spontaneous, phasic, competent POP V is compressible, spontaneous, phasic, competent and demonstrates normal augmentation. and demonstrates normal augmentation. T/P Trunk is compressible. T/P Trunk is compressible. PTV is compressible. PTV is compressible. RT PerV is compressible. LT PerV is compressible. Procedure This is a venous duplex using B-mode, color flow and spectral Doppler. Exam performed portable in patient room. A preliminary report was called and/or faxed to OTONIEL Fraser. VL/Venous Duplex US - [place] Extrem Interpretation Summary Deep veins of the bilateral lower extremities are patent and compressible segme ntally. There is no evidence of bilateral lower extremity deep vein thrombosis. The bilateral great saphenous veins appea r patent and compressible segmentally. Ordering Physician: Kd Mcfarlane Referring Physician: Kd Mcfarlane Performed By: Oanh Granado RVT
[2025-02-08 22:43] VITALS: BP 149/78; PULSE 101; RESP 16; TEMP 36.8; O2SAT 96
[2025-02-08 22:59] LABS: Vitamin B12 1981 pg/mL (180-914)
[2025-02-08 23:10] LABS: Procalcitonin 0.14 ng/mL (<=0.10)
[2025-02-08] MEDS: NYSTATIN 500,000 UNIT/5 ML UDC 500000 UNIT PO (23:26)
[2025-02-08] MEDS: Polyethylene Glycol 3350 17 GM PACKET PO (23:27)
--- NOTE | 2025-02-08 23:50 | RAD_ITS ---
PROCEDURE: CHEST 1 VIEW (PORTABLE) 02/08/2025 REASON FOR EXAM: EVALAUTE FOR PNA. TECHNIQUE: Frontal view of the chest. COMPARISON: 08/26/2024 FINDINGS: Replaced right shoulder joint. Normal heart size. Calcified aorta. Well inflated lungs. No consolidation, effusion or pneumothorax. Mild emphysema. RAD/Chest 1 View (Portable) IMPRESSION: No acute chest findings. Reading Location: [facility]-
[2025-02-09] VITALS (7 sets, daily range): BP systolic 116–145; BP diastolic 58–75; PULSE 92–120; RESP 16–18; TEMP 36.6–37.1; O2SAT 92–98; BMI 26.0
--- NOTE | 2025-02-09 00:14 | CT_ITS ---
PROCEDURE: CTA CHEST W/WO CONTRAST 02/09/2025 REASON FOR EXAM: RULE OUT PE TECHNIQUE: CTA CHEST W/WO CONTRAST Multiplanar Sagittal and Coronal images were obtained. CONTRAST: Isovue 370 VOLUME: 100 mL One or more dose reduction techniques were used (e.g., Automated exposure control, adjustment of the mA and/or kV according to patient size, use of iterative reconstruction technique). RADIATION DOSE SUMMARY: CTDlvol: 24 mGy DLP: 351 mGycm COMPARISON: 08/26/2024 FINDINGS: Unremarkable base of neck and axilla. Normal esophagus. Normal heart size. Small pericardial effusion. No aortic dissection. Limited pulmonary arterial opacification, no pulmonary embolism. Series 2, image 125, 1 cm right breast cyst or nodule, stable. Recommend correlation with mammography or ultrasound. No acute chest wall findings. Replaced right shoulder joint. Possible gallbladder sludge. No acute upper abdominal findings. Central airways are patent. Bronchial wall thickening. Mild emphysema. On the left, lingular atelectasis. Interval resolution of left lower lobe consolidation. On the right, small apical scarring. Small medial upper and middle lobe scar/atelectasis. No consolidation, effusion or pneumothorax. CT/CTA Chest W/WO Contrast IMPRESSION: No embolism, dissection, or pneumonia. Reading Location: [facility]-
[2025-02-09 04:32] LABS: Hematocrit 31.7 % (37-47); Hemoglobin 10.2 g/dL (12.0-15.0); Immature Granulocytes Count 0.140 X10^3/uL (0.0-0.0); Mean Corp Hgb Conc 32.2 g/dL (32-36); Mean Corpuscular Volume 93.0 fL (81-99); Mean Platelet Vol. 9.9 fl (6.2-12.0); NRBC Flagged by Analyzer 0 % (0-5); Platelet Count 347 K/mm3 (150-450); RBC Distribution Width CV 14.0 % (11.6-14.6); RBC Distribution Width SD 47.6 fl (35.1-43.9); Red Blood Count 3.41 M/mm3 (4.2-5.4); White Blood Count 11.9 K/mm3 (4.4-11.0)
[2025-02-09 05:01] LABS: AST(SGOT) 20 U/L (<=31); Alanine Aminotransfer ALT/SGPT 17 U/L (<=34); Albumin, Serum 3.1 g/dL (3.4-4.8); Alkaline Phosphatase 64 U/L (35-104); Anion Gap 10 (5-15); BUN 21 mg/dL (4-19); BUN/Creat Ratio 22.9 RATIO (10-20); Calcium,Total 8.2 mg/dL (7.6-11.0); Carbon Dioxide 21.4 mmol/L (21.0-32.0); Chloride 107 mmol/L (98-108); Cholesterol 127 mg/dL (<=200); Estimated Creatinine Clearance 38.66 ml/min (50-250); Globulin 2.7 g/dL (2.2-4.2); Glucose 192 mg/dL (70-99); Low Density Lipoprotein Calc. 42 mg/dL; Potassium 4.2 mmol/L (3.3-5.1); Triglycerides 93 mg/dL; Very Low Density Lipoprotein 19 mg/dL (5-40); cholesterol:hdl ratio screen 1.90
[2025-02-09] MEDS: NYSTATIN 500,000 UNIT/5 ML UDC 500000 UNIT PO (06:50)
[2025-02-09] MEDS: Budesonide Respules 0.5 MG/2 ML AMPUL.NEB. INHALATION (06:59)
--- NOTE | 2025-02-09 08:20 | PCM.PN.HOSP ---
Reason for Visit Chief Complaint: Abdominal Pain and Constipation. Subjective Subjective Patient is an 84-year-old lady admitted with abdominal pain. Imaging studies obtained at an outside hospital demonstrated features consistent with constipation Objective Data Objective Data Vital Signs: Vital Signs Temp Pulse Resp BP Pulse Ox O2 Del Method 98 F 98 16 145/75 H 92 Room Air 02/09/25 04:30 02/09/25 06:59 02/09/25 06:59 02/09/25 04:30 02/09/25 06:59 02/09/25 06:59 Oxygen Delivery Method Room Air Weight: 60.2 kg Body Mass Index (BMI) 26.0 Intake & Output: Intake and Output for Last 24 Hours 02/07/25 02/08/25 02/09/25 23:59 23:59 23:59 Intake Total 56.67 / 56.67 0 / 0 Balance 56.67 / 56.67 0 / 0 Lab / Micro Data 02/09/25 03:48 02/09/25 03:48 Labs: Laboratory Results - last 24 hr 02/08/25 20:23: WBC 16.1 H, RBC 3.84 L, Hgb 11.4 L, Hct 35.8 L, MCV 93.2, MCH 29.7, MCHC 31.8 L, RDW Std Deviation 47.8 H, RDW Coeff of Tia 14.0, Plt Count 397, MPV 9.5, Immature Gran % (Auto) 1.000 H, Neut % (Auto) 79.7 H, Lymph % (Auto) 9.7 L, Towns % (Auto) 8.6, Eos % (Auto) 0.6, Baso % (Auto) 0.4, Absolute Neuts (auto) 12.8 H, Absolute Lymphs (auto) 1.56, Nucleated RBC % 0, ESR 51 H, Sodium 139, Potassium 4.6, Chloride 106, Carbon Dioxide 20.3 L, Anion Gap 12, BUN 20 H, Creatinine 1.01, Estim Creat Clear Calc 34.83 L, Est GFR (MDRD) Non-Af 56 L, BUN/Creatinine Ratio 19.6, Glucose 159 H, Calcium 8.6, Magnesium 2.1, Total Bilirubin 0.23, AST 22, ALT 20, Alkaline Phosphatase 72, Total Protein 6.6, Albumin 3.4, Globulin 3.2, Albumin/Globulin Ratio 1.1, Serum Folate 19.20 02/08/25 21:54: D-Dimer Quant (PE/DVT) 3.36 H*, Hemoglobin A1c 6.6 H, Vitamin B12 1981 H, Procalcitonin 0.14 H, TSH 0.585 02/08/25 23:21: POC Glucose 196 H 02/09/25 03:48: WBC 11.9 H, RBC 3.41 L, Hgb 10.2 L, Hct 31.7 L, MCV 93.0, MCH 29.9, MCHC 32.2, RDW Std Deviation 47.6 H, RDW Coeff of Tia 14.0, Plt Count 347, MPV 9.9, Immature Gran % (Auto) 1.200 H, Neut % (Auto) 74.3 H, Lymph % (Auto) 14.3 L, Towns % (Auto) 8.7, Eos % (Auto) 1.0, Baso % (Auto) 0.5, Absolute Neuts (auto) 8.8 H, Absolute Lymphs (auto) 1.70, Nucleated RBC % 0, Sodium 138, Potassium 4.2, Chloride 107, Carbon Dioxide 21.4, Anion Gap 10, BUN 21 H, Creatinine 0.91, Estim Creat Clear Calc 38.66 L, Est GFR (MDRD) Non-Af 63, BUN/Creatinine Ratio 22.9 H, Glucose 192 H, Calcium 8.2, Phosphorus 1.9 L, Total Bilirubin < 0.15, AST 20, ALT 17, Alkaline Phosphatase 64, Total Protein 5.8 L, Albumin 3.1 L, Globulin 2.7, Albumin/Globulin Ratio 1.2, Triglycerides 93, Cholesterol 127, LDL Cholesterol, Calc 42, VLDL Cholesterol 19, HDL Cholesterol 67, Cholesterol/HDL Ratio 1.90 02/09/25 06:49: POC Glucose 132 H Radiography Diagnostic Testing: Radiology Impression Lower Extremity CT 02/08/25 21:08 IMPRESSION: Soft tissue injury. Reading Location: [facility] Chest X-Ray 02/08/25 23:50 IMPRESSION: No acute chest findings. Reading Location: [facility] Chest CTA 07/16/25 00:14 IMPRESSION: No embolism, dissection, or pneumonia. Reading Location: [place] [id number] Physical Exam Narrative GENERAL: cooperative HEENT: Atraumatic; normocephalic EYES; Anicteric, Normal Conjunctiva NECK; supple, normal thyroid, RESPIRATORY: Diminished to auscultation CARDIOVASCULAR: Regular S1 S2, GI: soft, normoactive bowel sounds, nondistended : No Renal angle tenderness; EXTREMITIES: No edema, no clubbing, MUSCULOSKELETAL: no muscle wasting NEURO: Awake; no lateralizing signs. SKIN: No Rash PSYCH; Flat affect Assessment & Plan Assessment/Plan (1) Constipation due to opioid therapy: PLAN: Plan Patient is an 84-year-old lady admitted with abdominal pain. Imaging studies obtained at an outside hospital demonstrated features consistent with constipation 1. Abdominal pain Secondary to opioid-induced constipation patient admitted to regular nursing floor symptom management initiated 2. Physical deconditioning ? Requested for PT OT eval and social insurance adviser to assist with discharge planning 3. Hypophosphatemia ? Corrected per protocol 4. Essential hypertension ? Antihypertensives held given patient relatively low blood pressure 5. COPD ? Currently not in exacerbation aerosol treatment as needed 6. Diabetes mellitus type II -patient's oral hypoglycemics held. Placed on long acting insulin, Accu-Cheks a.c. and at bedtime and covered with sliding scale insulin 7. Paroxysmal atrial fibrillation ? Rate controlled on diltiazem. Patient was previously on apixaban discontinued after recurrent GI bleed 8.. History of TIAs ? Patient is on clopidogrel 9. Depression with anxiety ? Patient is on duloxetine 10. GERD ? Patient is on PPI 11. Peripheral arterial disease ? With previous stent placement in lower extremities patient is on clopidogrel currently being held 15. DVT prophylaxis ? Enoxaparin Time spent in the patient's overall evaluation,decision-making process, review of diagnostic data, adjustment of management, discussion with other providers, nursing nursing and ancillary staff involved in patient's care documentation, 38 Minutes Charges/Coding Visit Charges Inpatient E&M: 30250 Subs Hosp L2
[2025-02-09] MEDS: Potassium Phosphate 30 MM in 0.9% Normal Saline (250mL Bag) 250 ML 55 MM IV (09:08)
[2025-02-09] MEDS: Calcium (Elemental) 500 MG Tablet 1000 MG PO (09:11)
[2025-02-09] MEDS: Cholecalciferol (Vit D3) 125 MCG CAPSULE (5,000 UNITS) PO (09:12)
[2025-02-09] MEDS: Na Biphos/Potassium Phosphate PACKET 1 PACKET PO (09:17)
--- NOTE | 2025-02-09 09:18 | CASEMGMT ---
Discharge Planning Updates sent to [facility] with note asking if pt can return today. Response rec'd and pt can return today. RN KEO updated. Ashely Manley DC Planning Asst.
[2025-02-09] MEDS: Polyethylene Glycol 3350 17 GM PACKET PO (09:19)
--- NOTE | 2025-02-09 09:36 | CASEMGMT ---
Addendum entered by Deidre Haji 02/09/25 14:20: Transportation arranged with [facility] for 1430 pickup via wheelchair van. [facility] is aware pt has a rollator, carry on type suitcase and vest therapy machine needed to be transported.?DC orders and signed med list sent to [facility]. OTONIEL CROWLEY met with pt and pt is agreeable to discharge plan as stated above.?Pt states her dtr is already aware and denies need for RN CM to contact her. Bedside nurse notified of discharge time. Original Note: Per hospitalist, pt is medically ready to return to [facility] today. RN CM into pt room, pt made aware. Pt very excited stating she can't wait to get back there. Pt denies need for a list of other options. Pt states she gets great care there. Confirmed pt may return today. Pt with vest therapy machine, rollator as well as a carry on type suitcase that will be transported. Pt wishes for transportation to be set up. Pt states she will notify her family of this and denies need for RN CM to contact family on her behalf. DC Plan: [facility], intermediate level of care
--- NOTE | 2025-02-09 10:09 | NURSING ---
Removed 7 stitches from right patella.No drainage noted. wound well approximated, 2x2 and kerlex applied, immobilizers in place. PT tolerated well
[2025-02-09] MEDS: Albuterol 2.5 MG/3 ML VIAL.NEB. INHALATION (12:30)
--- NOTE | 2025-02-09 13:55 | DS.PCM_ITS ---
Providers Date of Admission: 02/08/25 Primary Care Physician: JEAN Obrien Reason For Visit: ABDOMINAL PAIN, CONSTIPATION & GENERALIZED Diagnosis Discharge Diagnosis (1) Constipation due to opioid therapy: Status: Acute Code(s): K59.03 - Drug induced constipation; T40.2X5A - Adverse effect of other opioids, initial encounter Plan Patient is an 84-year-old lady admitted with abdominal pain. Imaging studies obtained at an outside hospital demonstrated features consistent with constipation 1. Abdominal pain Secondary to opioid-induced constipation patient admitted to regular nursing floor symptom management initiated 2. Physical deconditioning ? Requested for PT OT eval and social studies department chair to assist with discharge planning 3. Hypophosphatemia ? Corrected per protocol 4. Essential hypertension ? Antihypertensives held given patient relatively low blood pressure 5. COPD ? Currently not in exacerbation aerosol treatment as needed 6. Diabetes mellitus type II -patient's oral hypoglycemics held. Placed on long acting insulin, Accu-Cheks a.c. and at bedtime and covered with sliding scale insulin 7. Paroxysmal atrial fibrillation ? Rate controlled on diltiazem. Patient was previously on apixaban discontinued after recurrent GI bleed 8.. History of TIAs ? Patient is on clopidogrel 9. Depression with anxiety ? Patient is on duloxetine 10. GERD ? Patient is on PPI 11. Peripheral arterial disease ? With previous stent placement in lower extremities patient is on clopidogrel currently being held 15. DVT prophylaxis ? Enoxaparin Time spent in the patient's overall evaluation,decision-making process, review of diagnostic data, adjustment of management, discussion with other providers, nursing nursing and ancillary staff involved in patient's care documentation, 38 Minutes Medications at Discharge Home Medications ascorbic acid (vitamin C) 500 mg capsule 500 mg PO DAILY 11/28/22 clopidogrel 75 mg tablet 75 mg PO DAILY 04/30/23 glipizide 2.5 mg tablet, extended release 24 hr 2.5 mg PO DAILY 09/19/23 pantoprazole 40 mg tablet,delayed release 40 mg PO DAILY 09/19/23 clonidine HCl 0.2 mg tablet 0.2 mg PO QHS 03/18/24 diltiazem HCl 120 mg capsule,extended release 24 hr 240 mg PO DAILY 03/18/24 dulaglutide 1.5 mg/0.5 mL subcutaneous pen injector (Trulicity) 1.5 mg subcut QWEEK 03/18/24 duloxetine 30 mg capsule,delayed release 30 mg PO QHS 03/18/24 albuterol sulfate 90 mcg/actuation aerosol inhaler 2 inh inhalation Q4H PRN COPD #18 grams 07/06/24 lisinopril 5 mg tablet 5 mg PO DAILY 07/14/24 albuterol sulfate 2.5 mg/3 mL (0.083 %) solution for nebulization 2.5 mg (3 mL) inhalation Q4H PRN PRN COPD #90 mL 07/30/24 spacer #1 ea 08/03/24 inhalational spacing device (Aerochamber Plus Flow-Vu) #1 ea 08/13/24 ipratropium bromide 42 mcg (0.06 %) nasal spray 2 spray intranasal TID #15 mL 08/13/24 ipratropium 0.5 mg-albuterol 3 mg (2.5 mg base)/3 mL nebulization soln 3 ml inhalation Q4H PRN shortness of breath or wheezing #180 mL 08/23/24 atorvastatin 40 mg tablet 40 mg PO QHS 08/26/24 budesonide 0.5 mg/2 mL suspension for nebulization 0.5 mg inhalation Q12H 08/26/24 calcium 500 mg tablet 1,000 mg PO DAILY 08/26/24 cholecalciferol (vitamin D3) 125 mcg (5,000 unit) tablet (Vitamin D3) 125 mcg PO DAILY 08/26/24 coQ10 (ubiquinol) 100 mg capsule (CoQmax Ubiquinol) 100 mg PO DAILY 08/26/24 magnesium 250 mg tablet 250 mg PO QHS 08/26/24 trazodone 50 mg tablet 50 mg PO DAILY 08/26/24 vitamin B12 0.5 mg-folic acid 1 mg tablet (Foltrate) 1 tab PO DAILY 08/26/24 ferrous gluconate 324 mg (38 mg iron) tablet 324 mg PO BID #60 tabs 08/30/24 nystatin 100,000 unit/mL oral suspension 5 ml mucous membrane TID #250 mL 01/27/25 aluminum-mag hydroxide-simethicone 400 mg-400 mg-40 mg/5 mL oral susp (Mag-Al Plus Extra Strength) 30 ml PO Q6H PRN PRN Gastric Burning #0 mL 02/09/25 magnesium hydroxide 400 mg/5 mL oral suspension 30 ml PO DAILY PRN PRN Constipation #0 mL 02/09/25 melatonin 3 mg tablet 3 mg PO QHS PRN PRN Insomnia #0 tabs 02/09/25 polyethylene glycol 3350 17 gram/dose oral powder (Miralax) 17 g PO DAILY #510 grams 02/09/25 potassium, sodium phosphates 280 mg-160 mg-250 mg oral powder packet 1 packet PO BID #0 ea 02/09/25 Physical Exam Narrative GENERAL: cooperative HEENT: Atraumatic; normocephalic EYES; Anicteric, Normal Conjunctiva NECK; supple, normal thyroid, RESPIRATORY: Diminished to auscultation CARDIOVASCULAR: Regular S1 S2, GI: soft, normoactive bowel sounds, nondistended : No Renal angle tenderness; EXTREMITIES: No edema, no clubbing, MUSCULOSKELETAL: no muscle wasting NEURO: Awake; no lateralizing signs. SKIN: No Rash PSYCH; Flat affect Weight / BMI Weight Weight: 60.2 kg Body Mass Index (BMI) 26.0 ABG / Lab / Microbiology Data 02/09/25 03:48 02/09/25 03:48 Laboratory: Laboratory Results - last 24 hr 02/08/25 20:23: WBC 16.1 H, RBC 3.84 L, Hgb 11.4 L, Hct 35.8 L, MCV 93.2, MCH 29.7, MCHC 31.8 L, RDW Std Deviation 47.8 H, RDW Coeff of Tia 14.0, Plt Count 397, MPV 9.5, Immature Gran % (Auto) 1.000 H, Neut % (Auto) 79.7 H, Lymph % (Auto) 9.7 L, [place] % (Auto) 8.6, Eos % (Auto) 0.6, Baso % (Auto) 0.4, Absolute Neuts (auto) 12.8 H, Absolute Lymphs (auto) 1.56, Nucleated RBC % 0, ESR 51 H, Sodium 139, Potassium 4.6, Chloride 106, Carbon Dioxide 20.3 L, Anion Gap 12, B UN 20 H, Creatinine 1.01, Estim Creat Clear Calc 34.83 L, Est GFR (MDRD) Non-Af 56 L, BUN/Creatinine Ratio 19.6, Glucose 159 H, Calcium 8.6, Magnesium 2.1, Total Bilirubin 0.23, AST 22, ALT 20, Alkaline Phosphatase 72, Total Protein 6.6, Albumin 3.4, Globulin 3.2, Albumin/Globulin Ratio 1.1, Serum Folate 19.20 02/08/25 21:54: D-Dimer Quant (PE/DVT) 3.36 H*, Hemoglobin A1c 6.6 H, Vitamin B12 1981 H, Procalcitonin 0.14 H, TSH 0.585 02/08/25 23:21: POC Glucose 196 H 02/09/25 03:48: WBC 11.9 H, RBC 3.41 L, Hgb 10.2 L, Hct 31.7 L, MCV 93.0, MCH 29.9, MCHC 32.2, RDW Std Deviation 47.6 H, RDW Coeff of Tia 14.0, Plt Count 347, MPV 9.9, Immature Gran % (Auto) 1.200 H, Neut % (Auto) 74.3 H, Lymph % (Auto) 14.3 L, [place] % (Auto) 8.7, Eos % (Auto) 1.0, Baso % (Auto) 0.5, Absolute Neuts (auto) 8.8 H, Absolute Lymphs (auto) 1.70, Nucleated RBC % 0, Sodium 138, Potassium 4.2, Chloride 107, Carbon Dioxide 21.4, Anion Gap 10, BUN 21 H, Creatinine 0.91, Estim Creat Clear Calc 38.66 L, Est GFR (MDRD) Non-Af 63, B UN/Creatinine Ratio 22.9 H, Glucose 192 H, Calcium 8.2, Phosphorus 1.9 L, Total Bilirubin < 0.15, AST 20, ALT 17, Alkaline Phosphatase 64, Total Protein 5.8 L, Albumin 3.1 L, Globulin 2.7, Albumin/Globulin Ratio 1.2, Triglycerides 93, Cholesterol 127, LDL Cholesterol, Calc 42, VLDL Cholesterol 19, HDL Cholesterol 67, Cholesterol/HDL Ratio 1.90 02/09/25 06:49: POC Glucose 132 H 02/09/25 11:46: POC Glucose 172 H Radiography Diagnostic Testing: Radiology Impression Lower Extremity CT 02/08/25 21:08 IMPRESSION: Soft tissue injury. Reading Location: [place] [id number] Chest X-Ray 02/08/25 23:50 IMPRESSION: No acute chest findings. Reading Location: [facility] Chest CTA 02/09/25 00:14 IMPRESSION: No embolism, dissection, or pneumonia. Reading Location: [facility] D/C Instructions Discharge Activity: Return to Normal Activity Call your doctor if you observe: Fever of 101 or Higher, Shortness of breath, Fainting spells and Chest pain DC O2, CPAP, BIPAP Needs Home O2 Discharge instructions: No Meaningful Use Info Meaningful Use Meaningful Use Diagnoses (Choose all that apply): None applicable Discharge Plan Admission Admit Date/Time: 02/08/25 19:55 Attending Provider: Kd Caldera Primary Care Provider: Jeff Suresh NP Consulting Providers: Kd Mcfarlane Discharge Orders/Prescriptions Prescriptions: New melatonin 3 mg Tablet 3 mg PO QHS PRN PRN (Reason: Insomnia) Qty: 0 0RF magnesium hydroxide 400 mg/5 mL Suspension 30 ml PO DAILY PRN PRN (Reason: Constipation) Qty: 0 0RF alum-mag hydroxide-simeth [Mag-Al Plus Extra Strength] 400-400-40 mg/5 mL Suspension 30 ml PO Q6H PRN PRN (Reason: Gastric Burning) Qty: 0 0RF potassium, sodium phosphates 280-160-250 mg Powder In Packet 1 packet PO BID Qty: 0 0RF polyethylene glycol 3350 [Miralax] 17 gram/dose powder 17 g PO DAILY Qty: 510 0RF Continued ascorbic acid (vitamin C) 500 mg capsule 500 mg PO DAILY clonidine HCl 0.2 mg tablet 0.2 mg PO QHS diltiazem HCl 120 mg capsule,extended release 24hr 240 mg PO DAILY duloxetine 30 mg capsule,delayed release(DR/EC) 30 mg PO QHS Trulicity 1.5 mg/0.5 mL pen injector 1.5 mg subcut QWEEK Rx Instructions: takes on Friday lisinopril 5 mg tablet 5 mg PO DAILY (DME) spacer See Rx Instructions .Route .MEDSUPPLY Qty: 1 0RF Rx Instructions: As directed (DME) Aerochamber Plus Flow-Vu Spacer See Rx Instructions .ROUTE .MEDSUPPLY Qty: 1 Patient Comments: [NO ORIGINAL SIG] Rx Instructions: As directed ipratropium bromide 42 mcg (0.06 %) spray,non-aerosol 2 spray intranasal TID Qty: 15 2RF Rx Instructions: administer into each nostril ipratropium-albuterol 0.5 mg-3 mg(2.5 mg base)/3 mL solution for nebulization 3 ml inhalation Q4H PRN (Reason: shortness of breath or wheezing) Qty: 180 11RF clopidogrel 75 mg tablet 75 mg PO DAILY glipizide 2.5 mg tablet extended release 24hr 2.5 mg PO DAILY pantoprazole 40 mg tablet,delayed release (DR/EC) 40 mg PO DAILY atorvastatin 40 mg tablet 40 mg PO QHS Patient Comments: [NO ORIGINAL SIG] cholecalciferol (vitamin D3) [Vitamin D3] 125 mcg (5,000 unit) tablet 125 mcg PO DAILY Foltrate 0.5-1 mg tablet 1 tab PO DAILY coQ10 (ubiquinol) [CoQmax Ubiquinol] 100 mg capsule 100 mg PO DAILY magnesium 250 mg tablet 250 mg PO QHS calcium 500 mg tablet 1,000 mg PO DAILY budesonide 0.5 mg/2 mL suspension for nebulization 0.5 mg inhalation Q12H Patient Comments: [NO ORIGINAL SIG] trazodone 50 mg tablet 50 mg PO DAILY ferrous gluconate 324 mg (38 mg iron) tablet 324 mg PO BID Qty: 60 2RF albuterol sulfate 90 mcg/actuation HFA aerosol inhaler 2 inh INHALATION Q4H PRN Qty: 18 6RF albuterol sulfate 2.5 mg /3 mL (0.083 %) solution for nebulization 2.5 mg INHALATION Q4H PRN PRN (Reason: COPD) Qty: 90 3RF nystatin 100,000 unit/mL suspension 5 ml mucous membrane TID Qty: 250 1RF Rx Instructions: swish and swallow 5 cc three times per day for 10 days Referrals / Follow Up: Jeff Suresh NP, SUSTAINABILITY COORDINATOR-C [Primary Care Provider] - Disposition Disposition (needs filled in before D/C Order can be placed): [facility] Charges/Coding Visit Charges Inpatient E&M: 74099 Disch Hosp >30min
--- NOTE | 2025-02-09 13:58 | PCM.TXEXTCAR ---
Diet Diet Order/Speech Therapy: INPATIENT Hospital Diet / Speech Therapy Order(s) 02/08/25 20:38 Diet: Consistent Carb - Calorie Controlled Food consistency:: Regular Liquid Consistency:: Regular/Thin Dietary Modifications:: Cardiac / Heart Healthy How many daily calories?: 1800 calorie Routine Orders/Code Status Code Status: Full Code DC O2, CPAP, BIPAP needs Home O2 Discharge instructions: No Wound(s) right knee: Wound Type: Surgical Incision Therapies Physical Therapy: Eval and Treat Occupational Therapy: Eval and Treat Problem/Diagnosis (1) Constipation due to opioid therapy: Status: Acute Code(s): K59.03 - Drug induced constipation; T40.2X5A - Adverse effect of other opioids, initial encounter Plan Patient is an 84-year-old lady admitted with abdominal pain. Imaging studies obtained at an outside hospital demonstrated features consistent with constipation 1. Abdominal pain Secondary to opioid-induced constipation patient admitted to regular nursing floor symptom management initiated 2. Physical deconditioning ? Requested for PT OT eval and psychiatric social worker supervisor to assist with discharge planning 3. Hypophosphatemia ? Corrected per protocol 4. Essential hypertension ? Antihypertensives held given patient relatively low blood pressure 5. COPD ? Currently not in exacerbation aerosol treatment as needed 6. Diabetes mellitus type II -patient's oral hypoglycemics held. Placed on long acting insulin, Accu-Cheks a.c. and at bedtime and covered with sliding scale insulin 7. Paroxysmal atrial fibrillation ? Rate controlled on diltiazem. Patient was previously on apixaban discontinued after recurrent GI bleed 8.. History of TIAs ? Patient is on clopidogrel 9. Depression with anxiety ? Patient is on duloxetine 10. GERD ? Patient is on PPI 11. Peripheral arterial disease ? With previous stent placement in lower extremities patient is on clopidogrel currently being held 15. DVT prophylaxis ? Enoxaparin Time spent in the patient's overall evaluation,decision-making process, review of diagnostic data, adjustment of management, discussion with other providers, nursing nursing and ancillary staff involved in patient's care documentation, 38 Minutes Allergies/Procedures Done in Hospital Allergies ferrous sulfate Allergy (Intermediate, Verified 08/26/24 01:09) Other had a reaction to iv iron iron Adverse Reaction (Severe, Verified 09/02/24 11:03) Low blood pressure, anaphylaxis REACTION BASED ON IV IRON. ORAL IRON DOESNOT CAUSE SAME RESPONSE. gabapentin Adverse Reaction (Intermediate, Verified 08/26/24 01:09) Pedal edema pregabalin (From Lyrica) Adverse Reaction (Intermediate, Verified 08/26/24 01:09) Pedal edema codeine Adverse Reaction (Verified 08/26/24 01:09) Nausea Tetracyclines Adverse Reaction (Verified 08/26/24 01:09) Nausea Type of Care/Length of Stay Estimated LOS: More Than 30 Days Type of Care Needed: Intermediate Rehab Potential: Fair Prognosis: Fair Additional Orders/Day of Discharge Day of Discharge: 02/09/25 Discharge Plan Admission Admit Date/Time: 02/08/25 19:55 Attending Provider: Kd Caldera Primary Care Provider: Jeff Suresh EDITOR DICTIONARY Consulting Providers: Kd Mcfarlane Discharge Orders/Prescriptions Prescriptions: New melatonin 3 mg Tablet 3 mg PO QHS PRN PRN (Reason: Insomnia) Qty: 0 0RF magnesium hydroxide 400 mg/5 mL Suspension 30 ml PO DAILY PRN PRN (Reason: Constipation) Qty: 0 0RF alum-mag hydroxide-simeth [Mag-Al Plus Extra Strength] 400-400-40 mg/5 mL Suspension 30 ml PO Q6H PRN PRN (Reason: Gastric Burning) Qty: 0 0RF potassium, sodium phosphates 280-160-250 mg Powder In Packet 1 packet PO BID Qty: 0 0RF polyethylene glycol 3350 [Miralax] 17 gram/dose powder 17 g PO DAILY Qty: 510 0RF Continued ascorbic acid (vitamin C) 500 mg capsule 500 mg PO DAILY clonidine HCl 0.2 mg tablet 0.2 mg PO QHS diltiazem HCl 120 mg capsule,extended release 24hr 240 mg PO DAILY duloxetine 30 mg capsule,delayed release(DR/EC) 30 mg PO QHS Trulicity 1.5 mg/0.5 mL pen injector 1.5 mg subcut QWEEK Rx Instructions: takes on Friday lisinopril 5 mg tablet 5 mg PO DAILY (DME) spacer See Rx Instructions .Route .MEDSUPPLY Qty: 1 0RF Rx Instructions: As directed (DME) Aerochamber Plus Flow-Vu Spacer See Rx Instructions .ROUTE .MEDSUPPLY Qty: 1 Patient Comments: [NO ORIGINAL SIG] Rx Instructions: As directed ipratropium bromide 42 mcg (0.06 %) spray,non-aerosol 2 spray intranasal TID Qty: 15 2RF Rx Instructions: administer into each nostril ipratropium-albuterol 0.5 mg-3 mg(2.5 mg base)/3 mL solution for nebulization 3 ml inhalation Q4H PRN (Reason: shortness of breath or wheezing) Qty: 180 11RF clopidogrel 75 mg tablet 75 mg PO DAILY glipizide 2.5 mg tablet extended release 24hr 2.5 mg PO DAILY pantoprazole 40 mg tablet,delayed release (DR/EC) 40 mg PO DAILY atorvastatin 40 mg tablet 40 mg PO QHS Patient Comments: [NO ORIGINAL SIG] cholecalciferol (vitamin D3) [Vitamin D3] 125 mcg (5,000 unit) tablet 125 mcg PO DAILY Foltrate 0.5-1 mg tablet 1 tab PO DAILY coQ10 (ubiquinol) [CoQmax Ubiquinol] 100 mg capsule 100 mg PO DAILY magnesium 250 mg tablet 250 mg PO QHS calcium 500 mg tablet 1,000 mg PO DAILY budesonide 0.5 mg/2 mL suspension for nebulization 0.5 mg inhalation Q12H Patient Comments: [NO ORIGINAL SIG] trazodone 50 mg tablet 50 mg PO DAILY ferrous gluconate 324 mg (38 mg iron) tablet 324 mg PO BID Qty: 60 2RF albuterol sulfate 90 mcg/actuation HFA aerosol inhaler 2 inh INHALATION Q4H PRN Qty: 18 6RF albuterol sulfate 2.5 mg /3 mL (0.083 %) solution for nebulization 2.5 mg INHALATION Q4H PRN PRN (Reason: COPD) Qty: 90 3RF nystatin 100,000 unit/mL suspension 5 ml mucous membrane TID Qty: 250 1RF Rx Instructions: swish and swallow 5 cc three times per day for 10 days Referrals / Follow Up: Jeff Suresh EDITOR DICTIONARY, EDITOR DICTIONARY-C [Primary Care Provider] - Disposition Disposition (needs filled in before D/C Order can be placed): Nursing Home Facility
[2025-02-09 15:39] LABS: Mucous, Urine 0 SEEN /hpf (<or=2+); Squamous Epithelial Cells - UA 0 SEEN /hpf (5-10)
[2025-02-09 18:35] LABS: Color, Urine Yellow (Yellow); Glucose, Dipstick Normal (Normal); Ketone-Dipstick Negative (Negative); Leukocyte Esterase-Dipstick Negative /ul (Negative); Nitrite-Dipstick Negative (Negative); Occult Blood-Urine Negative /ul (Negative); Protein-Dipstick 30 mg/dl (Negative); Specific Gravity, Urine 1.010 (1.002-1.030); Urine Bilirubin Dipstick Negative (Negative)
[2025-02-09 19:08] LABS: Red Blood Cells-Urine 0-5 SEEN /hpf (0-5)
[2025-02-10 08:32] LABS: CRP, High Sensitivity 200.44 mg/L (0.00-3.00)
== END 2025-02-09 14:50 | disposition intermediate care facility (04) ==
PROVIDERS: Admitting Provider Internal Medicine; PCP Nurse Practitioner Primary Care; Referring Provider Internal Medicine; Visit Provider Internal Medicine
DX: K59.03 Drug induced constipation (principal); I48.0 Paroxysmal atrial fibrillation; E11.22 Type 2 diabetes mellitus with diabetic chronic kidney disease; E11.40 Type 2 diabetes mellitus with diabetic neuropathy, unspecified; E11.51 Type 2 diabetes mellitus with diabetic peripheral angiopathy without gangrene; N18.9 Chronic kidney disease, unspecified; E78.5 Hyperlipidemia, unspecified; Z79.899 Other long term (current) drug therapy; I12.9 Hypertensive chronic kidney disease with stage 1 through stage 4 chronic kidney disease, or unspecified chronic kidney disease; Z91.81 History of falling; Z79.51 Long term (current) use of inhaled steroids; R53.1 Weakness; E83.39 Other disorders of phosphorus metabolism; Z87.891 Personal history of nicotine dependence; K21.9 Gastro-esophageal reflux disease without esophagitis; T40.2X5A Adverse effect of other opioids, initial encounter; F32.A Depression, unspecified; F41.9 Anxiety disorder, unspecified; S81.011D Laceration without foreign body, right knee, subsequent encounter; W19.XXXD Unspecified fall, subsequent encounter; Z79.02 Long term (current) use of antithrombotics/antiplatelets
CPT/HCPCS: 36415; 71045; 71275; 73700; 80053; 80061; 81001; 82607; 82746; 82962; 83036; 83735; 84100; 84145; 84443; 85025; 85379; 85652; 86141; 93970; 94640; 94668; 96361; 96365; 96366; 96372; 99221; Q9967; G0378

== ENCOUNTER → 2025-03-22 | Outpatient (CLI) | payer MEDICARE, MEDICAID, SELFPAY ==
--- NOTE | 2025-03-22 13:53 | RAD_ITS ---
PROCEDURE: CHEST PA AND LATERAL 03/22/2025 REASON FOR EXAM: SHORTNESS OF BREATH TECHNIQUE: CHEST PA AND LATERAL COMPARISON: 02/09/2025. FINDINGS: The heart is normal in size. The lungs are clear. No acute osseous abnormalities. Right shoulder arthroplasty. RAD/Chest PA and Lateral IMPRESSION: NO ACUTE FINDINGS. Reading Location: [id number]
[2025-03-22 14:29] LABS: Hematocrit 40.3 % (37-47); Hemoglobin 13.3 g/dL (12.0-15.0); Mean Corp Hgb Conc 33.0 g/dL (32-36); Mean Corpuscular Volume 91.2 fL (81-99); Mean Platelet Vol. 8.9 fl (6.2-12.0); POSITIVE COUNT YES; POSITIVE MORPHOLOGY YES; Platelet Count 638 K/mm3 (150-450); RBC Distribution Width CV 13.3 % (11.6-14.6); RBC Distribution Width SD 44.9 fl (35.1-43.9); Red Blood Count 4.42 M/mm3 (4.2-5.4); White Blood Count 17.8 K/mm3 (4.4-11.0)
[2025-03-22 15:17] LABS: Pro- Brain NATRIURETIC PEPTIDE 1534 pg/mL (<=1800)
[2025-03-22 15:48] LABS: Differential Indicated MANUAL DIFF
[2025-03-22 15:51] LABS: Neutrophil-Band 2 % (0-5); Neutrophil-Segmented 76 % (47-70); Reactive Lymphocyte 2+; Total Cells Counted 100 (MANUAL DIFF)
[2025-03-22 15:53] LABS: Polychromasia 1+
== END | disposition home or self-care (01) ==
PROVIDERS: PCP Nurse Practitioner Primary Care; Referring Provider Nurse Practitioner Family; Visit Provider Nurse Practitioner Family
DX: R06.02 Shortness of breath (principal)
CPT/HCPCS: 36415; 71046; 83880; 85025

== ENCOUNTER → 2025-03-25 | Outpatient (CLI) | payer MEDICARE, MEDICAID, SELFPAY | END | disposition home or self-care (01) | LOC: LABSPEC 13:23 | PROVIDERS: PCP Nurse Practitioner Primary Care; Referring Provider Nurse Practitioner Family; Visit Provider Nurse Practitioner Family | DX: J47.9 Bronchiectasis, uncomplicated (principal) | CPT/HCPCS: 87070; 87077; 87186; 87205 ==